=== PATIENT | male | born 1940 | race Caucasian/White ===

== ENCOUNTER 2018-03-18 17:04 | Inpatient (IN) | payer MEDICARE ==
[2018-03-18] MEDS ORDERED: HYDROmorphone 0.5 MG/0.5 ML Syringe IVPUSH ONE (17:42)
[2018-03-18] MEDS ORDERED: Sodium Chloride 0.9% 1,000 ML IV SCH ×2 (17:45→18:15)
[2018-03-18] MEDS ORDERED: HYDROmorphone 1 MG/ML Syringe IVPUSH ONE (18:17)
[2018-03-18] MEDS ORDERED: Ondansetron 4 MG/2 ML SDV IVPUSH ONE (18:17)
[2018-03-18] MEDS ORDERED: Meropenem 500 MG in Sodium Chloride 0.9% 50 ML IV ONE ×2 (18:40→19:31)
--- NOTE | 2018-03-18 18:51 | EDM.PDOC ---
ED HPI GENERAL MEDICAL PROBLEM - General Chief Complaint: Abdominal Pain Stated Complaint: STOMACH PAIN, SHORTNESS OF BREATH Time Seen by Provider: 03/18/18 17:45 Source of Information: Reports: Patient, Family History Limitations: Reports: No Limitations - History of Present Illness INITIAL COMMENTS - FREE TEXT/NARRATIVE: pt arrived with very severe mid abdomanal paion. He was nauseated but not vomiting, He has a history of ca of the lung and Ca of the prostate. He woke up abouit 4 thirty this am and he had very severe abdomanal pain. He has been very uncomfortable all day. he has not had a stool today. He has not had pain like this in the past. He had a luperon shot yesterday for his prostate ca. Onset: Today Duration: Hour(s): Location: Reports: Abdomen Quality: Reports: Sharp, Stabbing Associated Symptoms: Reports: Nausea/Vomiting, Weakness Middle Anterior Abdominal Pain Score (Numeric/FACES): 9 - Related Data Allergies Allergy/AdvReac Type Severity Reaction Status Date / Time venom-honey bee Allergy Swelling Verified 03/18/18 17:40 [bee venom (honey bee)] Home Meds: Home Meds oxyCODONE HCl/Acetaminophen [Percocet 5-325 mg Tablet] 1 - 2 tab PO Q6H PRN 09/08 [History] Bisacodyl [Laxative] 5 mg PO DAILY 03/18/18 [History] Calc/D3/Mag/Zn/[employer]/[place] [Calcium 600 MG Plus Vit D] 1 tab PO DAILY [History] Morphine 15 mg PO BID 03/18/18 [History] Past Medical History Respiratory History: Reports: SOB Oncologic (Cancer) History: Reports: Lung, Prostate - Infectious Disease History Infectious Disease History: Reports: Chicken Pox, Mumps - Past Surgical History Respiratory Surgical History: Reports: Lung Biopsies Musculoskeletal Surgical History: Reports: Other (See Below) Social & Family History - Tobacco Use Smoking Status *Q: Current Every Day Smoker Years of Tobacco use: 30 Packs/Tins Daily: 1.5 - Recreational Drug Use Recreational Drug Use: No ED ROS GENERAL - Review of Systems Review Of Systems: See Below Constitutional: Reports: Chills, Malaise, Weakness, Other ( very severe abdomanal pain) HEENT: Reports: No Symptoms Respiratory: Reports: No Symptoms Cardiovascular: Reports: No Symptoms Endocrine: Reports: No Symptoms GI/Abdominal: Reports: Abdominal Pain, Nausea ED EXAM, GI/ABD - Physical Exam Exam: See Below Text/Narrative:: pt arrived with acute abdomanal pain in the mid abdoman. His abdoman appeared distended. Exam Limited By: No Limitations General Appearance: Alert, Severe Distress, Other (Pt is not vomiting. ) Ears: Normal TMs Nose: Normal Inspection Throat/Mouth: Normal Inspection Head: Atraumatic Neck: Normal Inspection Respiratory/Chest: No Respiratory Distress Cardiovascular: Regular Rate, Rhythm, Tachycardia, Other ( heart rate 140-- regular --sinus rhythm. ) GI/Abdominal Exam: Distended, Tender (Male) Exam: Deferred Rectal (Males) Exam: Deferred Back Exam: Normal Inspection Extremities: Pedal Edema, Other ( mild pedal edema. ) Neurological: Alert, Oriented, Normal Cognition Course - Vital Signs Last Recorded V/S: Last Vital Signs Temp 34.9 C L 03/18/18 17:38 Pulse 134 H 03/18/18 20:20 Resp 40 H 03/18/18 20:20 BP 145/105 H 03/18/18 20:20 Pulse Ox 97 03/18/18 20:20 - Orders/Labs/Meds Orders: Active Orders 24 hr Category Date Time Status Dietary Supplements [RC] BIDMEALS Care 03/18/18 18:40 Active EKG Documentation Completion [RC] ASDIRECTED Care 03/18/18 18:16 Active Chest 1V Frontal [CR] Stat Exams 03/18/18 18:15 Taken Chest Abdomen Pelvis wo Cont [CT] Stat Exams 03/18/18 17:43 Taken NG Tube Placement [CR] Stat Exams 03/18/18 19:54 Ordered CULTURE BLOOD [BC] Urgent Lab 03/18/18 18:45 Received CULTURE BLOOD [BC] Urgent Lab 03/18/18 18:55 Received UA W/MICROSCOPIC [URIN] Urgent Lab 03/18/18 18:15 Ordered Meropenem [Merrem] 500 mg Med 03/18/18 19:31 Ordered Sodium Chloride 0.9% [Normal Saline] 50 ml IV ONETIME Sodium Chloride 0.9% [Normal Saline] 1,000 ml Med 03/18/18 17:45 Active IV ASDIRECTED Sodium Chloride 0.9% [Normal Saline] 1,000 ml Med 03/18/18 18:15 Active IV ASDIRECTED Blood Culture x2 Reflex Set [OM.PC] Urgent Oth 03/18/18 18:39 Ordered Nasogastric Orogastric Tube Insertion [OM.PC] Routine Oth 03/18/18 19:58 Ordered EKG 12 Lead [EK] Routine Ther 03/18/18 18:16 Ordered Medication Orders Sodium Chloride (Normal Saline) 1,000 mls @ 1,000 mls/hr IV ASDIRECTED CIARRA Last Admin: 03/18/18 17:47 Dose: 1,000 mls/hr Sodium Chloride (Normal Saline) 1,000 mls @ 999 mls/hr IV ASDIRECTED CIARRA Last Admin: 03/18/18 19:31 Dose: 999 mls/hr Meropenem 500 mg/ Sodium (Chloride) 50 mls @ 100 mls/hr IV ONETIME ONE Stop: 03/18/18 20:00 Last Admin: 03/18/18 19:40 Dose: 100 mls/hr Labs: Laboratory Tests 03/18/18 03/18/18 03/18/18 Range/Units 18:15 18:15 18:16 WBC 10.4 (4.5-11.0) K/uL RBC 5.86 (4.30-5.90) M/uL Hgb 18.0 H (12.0-15.0) g/dL Hct 54.1 H (40.0-54.0) % MCV 92 (80-98) fL MCH 31 (27-31) pg MCHC 33 (32-36) % Plt Count 218 (150-400) K/uL Neut % (Auto) 88 H (36-66) % Lymph % (Auto) 8 L (24-44) % [place] % (Auto) 4 (2-6) % Eos % (Auto) 0 L (2-4) % Baso % (Auto) 0 (0-1) % Sodium 146 (140-148) mmol/L Potassium 3.4 L (3.6-5.2) mmol/L Chloride 106 (100-108) mmol/L Carbon Dioxide 21 (21-32) mmol/L Anion Gap 22.4 H (5.0-14.0) mmol/L BUN 22 H (7-18) mg/dL Creatinine 1.8 H (0.8-1.3) mg/dL Est Cr Clr Drug Dosing 33.15 mL/min Estimated GFR (MDRD) 37 L (>60) Glucose 194 H (74-106) mg/dL Lactic Acid 12.1 H (0.4-2.0) mmol/L Calcium 11.3 H (8.5-10.1) mg/dL Total Bilirubin 0.5 (0.2-1.0) mg/dL AST 21 (15-37) U/L ALT 19 (12-78) U/L Alkaline Phosphatase 166 H (46-116) U/L C-Reactive Protein 1.21 H (0.0-0.3) mg/dL Total Protein 7.3 (6.4-8.2) g/dL Albumin 3.1 L (3.4-5.0) g/dL Globulin 4.2 H (2.3-3.5) g/dL Albumin/Globulin Ratio 0.7 L (1.2-2.2) Lipase (73-393) U/L 03/18/18 Range/Units 18:26 WBC (4.5-11.0) K/uL RBC (4.30-5.90) M/uL Hgb (12.0-15.0) g/dL Hct (40.0-54.0) % MCV (80-98) fL MCH (27-31) pg MCHC (32-36) % Plt Count (150-400) K/uL Neut % (Auto) (36-66) % Lymph % (Auto) (24-44) % [place] % (Auto) (2-6) % Eos % (Auto) (2-4) % Baso % (Auto) (0-1) % Sodium (140-148) mmol/L Potassium (3.6-5.2) mmol/L Chloride (100-108) mmol/L Carbon Dioxide (21-32) mmol/L Anion Gap (5.0-14.0) mmol/L BUN (7-18) mg/dL Creatinine (0.8-1.3) mg/dL Est Cr Clr Drug Dosing mL/min Estimated GFR (MDRD) (>60) Glucose (74-106) mg/dL Lactic Acid (0.4-2.0) mmol/L Calcium (8.5-10.1) mg/dL Total Bilirubin (0.2-1.0) mg/dL AST (15-37) U/L ALT (12-78) U/L Alkaline Phosphatase (46-116) U/L C-Reactive Protein (0.0-0.3) mg/dL Total Protein (6.4-8.2) g/dL Albumin (3.4-5.0) g/dL Globulin (2.3-3.5) g/dL Albumin/Globulin Ratio (1.2-2.2) Lipase 113 (73-393) U/L Meds: Medications Generic Name Dose Route Start Last Admin Trade Name Fregena PRN Reason Stop Dose Admin Sodium Chloride 1,000 mls @ 1,000 mls/hr 03/18/18 17:45 03/18/18 17:47 Normal Saline IV 1,000 mls/hr ASDIRECTED CI[facility] Administration Sodium Chloride 1,000 mls @ 999 mls/hr 03/18/18 18:15 03/18/18 19:31 Normal Saline IV 999 mls/hr ASDIRECTED CIARRA Administration Meropenem 500 mg/ Sodium 50 mls @ 100 mls/hr 03/18/18 19:31 03/18/18 19:40 Chloride IV 03/18/18 20:00 100 mls/hr ONETIME ONE Administration Discontinued Medications Generic Name Dose Route Start Last Admin Trade Name Neil PRN Reason Stop Dose Admin Dexamethasone Confirm 03/18/18 19:47 Dexamethasone Administered 03/18/18 19:48 Dose 4 mg .ROUTE .STK-MED ONE Fentanyl Confirm 03/18/18 19:47 Sublimaze Administered 03/18/18 19:48 Dose 250 mcg .ROUTE .STK-MED ONE Glycopyrrolate Confirm 03/18/18 19:47 Robinul Administered 03/18/18 19:48 Dose 1 mg .ROUTE .STK-MED ONE Heparin Sodium (Porcine) Confirm 03/18/18 19:50 Heparin Sodium Administered 03/18/18 19:51 Dose 5,000 units .ROUTE .STK-MED ONE Hydromorphone HCl 0.5 mg 03/18/18 17:42 03/18/18 17:47 Dilaudid IVPUSH 03/18/18 17:43 0.5 mg ONETIME ONE Administration Hydromorphone HCl 1 mg 03/18/18 18:17 03/18/18 18:27 Dilaudid IVPUSH 03/18/18 18:18 1 mg ONETIME ONE Administration Meropenem 500 mg/ Sodium 50 mls @ 100 mls/hr 03/18/18 18:40 03/18/18 19:01 Chloride IV 03/18/18 19:09 100 mls/hr ONETIME ONE Administration Sodium Chloride Confirm 03/18/18 19:39 03/18/18 20:19 Normal Saline Administered 03/18/18 19:40 Not Given Dose 50 mls @ as directed .ROUTE .STK-MED ONE Aztreonam 2 gm/ Sodium 50 mls @ 100 mls/hr 03/18/18 19:32 Chloride IV 03/18/18 20:01 ONETIME ONE Sodium Chloride Confirm 03/18/18 19:58 Normal Saline Administered 03/18/18 19:59 Dose 250 mls @ as directed .ROUTE .STK-MED ONE Lactated Ringer's Confirm 03/18/18 19:58 Ringers, Lactated Administered 03/18/18 19:59 Dose 1,000 mls @ as directed .ROUTE .STK-MED ONE Sodium Chloride Confirm 03/18/18 19:58 Normal Saline Administered 03/18/18 19:59 Dose 500 mls @ as directed .ROUTE .STK-MED ONE Meropenem Confirm 03/18/18 19:39 03/18/18 20:19 Merrem Administered 03/18/18 19:40 Not Given Dose 500 mg .ROUTE .STK-MED ONE Neostigmine Methylsulfate Confirm 03/18/18 19:47 Neostigmine Administered 03/18/18 19:48 Dose 5 mg .ROUTE .STK-MED ONE Ondansetron HCl 4 mg 03/18/18 18:17 03/18/18 18:27 Zofran IVPUSH 03/18/18 18:18 4 mg ONETIME ONE Administration Ondansetron HCl Confirm 03/18/18 19:47 Zofran Administered 03/18/18 19:48 Dose 4 mg .ROUTE .STK-MED ONE Phenylephrine HCl Confirm 03/18/18 20:04 Isaías-Synephrine Administered 03/18/18 20:05 Dose 10 mg .ROUTE .STK-MED ONE Propofol Confirm 03/18/18 19:47 Diprivan 20 Ml Administered 03/18/18 19:48 Dose 200 mg .ROUTE .STK-MED ONE Rocuronium [place] Confirm 03/18/18 19:47 Zemuron Administered 03/18/18 19:48 Dose 50 mg .ROUTE .STK-MED ONE Succinylcholine Chloride Confirm 03/18/18 19:47 Quelicin Administered 03/18/18 19:48 Dose 200 mg .ROUTE .STK-MED ONE - Re-Assessments/Exams Free Text/Narrative Re-Assessment/Exam: 03/18/18 20:28 cat scan of the chest, abdoman and pelvis was obtained. which showed free air and a perforated cecum. There is alot of stool and fluid out in the abdoman. His lactic acid is 12. His wbc is not elvated but his hg and hct are extremely high. He has a elvated creatnine. His o2 sats were low and did come up with o2. His bp was initially low and there did appear to be a difference from arm to arm. 03/18/18 20:30 Departure - Departure Time of Disposition: 20:31 Disposition: Admitted As Inpatient 68 Condition: Fair Clinical Impression: Perforation of cecum, Dehydration, Sepsis - Discharge Information - My Orders Last 24 Hours: My Active Orders 03/18/18 18:15 Chest 1V Frontal [CR] Stat UA W/MICROSCOPIC [URIN] Urgent Sodium Chloride 0.9% [Normal Saline] 1,000 ml IV ASDIRECTED 03/18/18 18:16 EKG Documentation Completion [RC] ASDIRECTED EKG 12 Lead [EK] Routine 03/18/18 18:39 Blood Culture x2 Reflex Set [OM.PC] Urgent 03/18/18 18:40 Dietary Supplements [RC] BIDMEALS 03/18/18 18:45 CULTURE BLOOD [BC] Urgent 03/18/18 18:55 CULTURE BLOOD [BC] Urgent - Assessment/Plan Last 24 Hours: My Active Orders 03/18/18 18:15 Chest 1V Frontal [CR] Stat UA W/MICROSCOPIC [URIN] Urgent Sodium Chloride 0.9% [Normal Saline] 1,000 ml IV ASDIRECTED 03/18/18 18:16 EKG Documentation Completion [RC] ASDIRECTED EKG 12 Lead [EK] Routine 03/18/18 18:39 Blood Culture x2 Reflex Set [OM.PC] Urgent 03/18/18 18:40 Dietary Supplements [RC] BIDMEALS 03/18/18 18:45 CULTURE BLOOD [BC] Urgent 03/18/18 18:55 CULTURE BLOOD [BC] Urgent
[2018-03-18] MEDS ORDERED: Meropenem 500 MG SDV ONE (19:39)
[2018-03-18] MEDS ORDERED: Sodium Chloride 0.9% 50 ML ONE (19:39)
--- NOTE | 2018-03-18 19:40 | PCM.HP ---
H&P History of Present Illness - General Date of Service: 03/18/18 Source of Information: Patient, Family, Provider, RN Notes Reviewed History Limitations: Reports: No Limitations - History of Present Illness Initial Comments - Free Text/Narative: Mr. Silva is a 77-year-old gentleman who was admitted through the emergency department and taken directly to the operating room for evaluation of acute abdomen with free air in the abdomen noted on CT scan. He has a known history of lung cancer which is felt to be in remission and is not currently actively treated. He also has a known history of metastatic prostate cancer that is being treated with Lupron injections. Prostate cancer is also felt to be fairly stable and he has received regular follow-up from oncology. He was feeling well until about 4 AM today when he developed abrupt onset of severe abdominal pain. He presented to the emergency department this afternoon and was found to be hypotensive and tachycardic. White blood cell count is still within normal range but his lactic acid level was markedly elevated at 12.1. CT scan of the abdomen shows free air within the abdomen and probable perforation of the cecum. He has a [id number] smoking history and probable underlying COPD. He is been seen and evaluated by Dr. Adams, with the plan for emergent surgery. Middle Anterior Abdominal Pain Score (Numeric/FACES): 9 - Related Data Allergies/Adverse Reactions: Allergies Allergy/AdvReac Type Severity Reaction Status Date / Time venom-honey bee Allergy Swelling Verified 03/18/18 17:40 [bee venom (honey bee)] Home Medications: Home Meds oxyCODONE HCl/Acetaminophen [Percocet 5-325 mg Tablet] 1 - 2 tab PO Q6H PRN 09/08 [History] Bisacodyl [Laxative] 5 mg PO DAILY 03/18/18 [History] Calc/D3/Mag/Zn/[employer] Director/[place] [Calcium 600 MG Plus Vit D] 1 tab PO DAILY [History] Morphine 15 mg PO BID 03/18/18 [History] Past Medical History Respiratory History: Reports: SOB Oncologic (Cancer) History: Reports: Lung, Prostate - Infectious Disease History Infectious Disease History: Reports: Chicken Pox, Mumps - Past Surgical History Respiratory Surgical History: Reports: Lung Biopsies Musculoskeletal Surgical History: Reports: Other (See Below) Social & Family History - Tobacco Use Smoking Status *Q: Current Every Day Smoker Years of Tobacco use: 30 Packs/Tins Daily: 1.5 - Recreational Drug Use Recreational Drug Use: No H&P Review of Systems - Review of Systems: Review Of Systems: See Below General: Reports: Weakness. Denies: Fever, Chills HEENT: Reports: No Symptoms Pulmonary: Reports: Shortness of Breath, Wheezing. Denies: Pleuritic Chest Pain , Cough, Sputum, Hemoptysis Cardiovascular: Reports: Dyspnea on Exertion. Denies: Chest Pain, Palpitations , Orthopnea, PND, Edema, Lightheadedness Gastrointestinal: Reports: Abdominal Pain, Distension, Nausea. Denies: Constipation, Diarrhea, Difficulty Swallowing, Vomiting Genitourinary: Reports: No Symptoms Musculoskeletal: Reports: No Symptoms Skin: Reports: No Symptoms Psychiatric: Reports: No Symptoms Neurological: Reports: No Symptoms Hematologic/Lymphatic: Reports: No Symptoms Immunologic: Reports: No Symptoms Exam - Exam Exam: See Below - Vital Signs Vital Signs: Last Vital Signs Temp 94.9 F L 03/18/18 17:38 Pulse 140 H 03/18/18 19:16 Resp 45 H 03/18/18 19:16 BP 156/102 H 03/18/18 19:16 Pulse Ox 99 03/18/18 18:44 Weight: 153 lb - Exam Quality Assessment: Supplemental Oxygen, DVT Prophylaxis General: Alert, Oriented, Cooperative, Severe Distress HEENT: Conjunctiva Clear, Normal Nasal Septum, Posterior Pharynx Clear, Pupils Equal. No: Hearing Intact, Mucosa Moist & [place] Neck: Supple, Trachea Midline, +2 Carotid Pulse wo Bruit Lungs: Decreased Breath Sounds, Rhonchi, Wheezing. No: Rales, Rub Cardiovascular: Regular Rhythm, Normal S1, Normal S2, Tachycardia. No: Systolic Murmur, Diastolic Murmur GI/Abdominal Exam: Soft, Non-Tender, No Organomegaly, No Distention Extremities: Non-Tender, No Pedal Edema Skin: Warm, Dry Neurological: Cranial Nerves Intact, Strength Equal Bilateral, Normal Speech, Normal Tone, Sensation Intact. No: Focal Deficit Neuro Extensive - Mental Status: Alert, Oriented x3, Normal Mood/Affect, Normal Cognition, Memory Intact - Patient Data Lab Results Last 24 hrs: Laboratory Results - last 24 hr 03/18/18 03/18/18 03/18/18 Range/Units 18:15 18:15 18:16 WBC 10.4 (4.5-11.0) K/uL RBC 5.86 (4.30-5.90) M/uL Hgb 18.0 H (12.0-15.0) g/dL Hct 54.1 H (40.0-54.0) % MCV 92 (80-98) fL MCH 31 (27-31) pg MCHC 33 (32-36) % Plt Count 218 (150-400) K/uL Neut % (Auto) 88 H (36-66) % Lymph % (Auto) 8 L (24-44) % [place] % (Auto) 4 (2-6) % Eos % (Auto) 0 L (2-4) % Baso % (Auto) 0 (0-1) % Sodium 146 (140-148) mmol/L Potassium 3.4 L (3.6-5.2) mmol/L Chloride 106 (100-108) mmol/L Carbon Dioxide 21 (21-32) mmol/L Anion Gap 22.4 H (5.0-14.0) mmol/L BUN 22 H (7-18) mg/dL Creatinine 1.8 H (0.8-1.3) mg/dL Est Cr Clr Drug Dosing 33.15 mL/min Estimated GFR (MDRD) 37 L (>60) Glucose 194 H (74-106) mg/dL Lactic Acid 12.1 H (0.4-2.0) mmol/L Calcium 11.3 H (8.5-10.1) mg/dL Total Bilirubin 0.5 (0.2-1.0) mg/dL AST 21 (15-37) U/L ALT 19 (12-78) U/L Alkaline Phosphatase 166 H (46-116) U/L C-Reactive Protein 1.21 H (0.0-0.3) mg/dL Total Protein 7.3 (6.4-8.2) g/dL Albumin 3.1 L (3.4-5.0) g/dL Globulin 4.2 H (2.3-3.5) g/dL Albumin/Globulin Ratio 0.7 L (1.2-2.2) Lipase (73-393) U/L 03/18/18 Range/Units 18:26 WBC (4.5-11.0) K/uL RBC (4.30-5.90) M/uL Hgb (12.0-15.0) g/dL Hct (40.0-54.0) % MCV (80-98) fL MCH (27-31) pg MCHC (32-36) % Plt Count (150-400) K/uL Neut % (Auto) (36-66) % Lymph % (Auto) (24-44) % [place] % (Auto) (2-6) % Eos % (Auto) (2-4) % Baso % (Auto) (0-1) % Sodium (140-148) mmol/L Potassium (3.6-5.2) mmol/L Chloride (100-108) mmol/L Carbon Dioxide (21-32) mmol/L Anion Gap (5.0-14.0) mmol/L BUN (7-18) mg/dL Creatinine (0.8-1.3) mg/dL Est Cr Clr Drug Dosing mL/min Estimated GFR (MDRD) (>60) Glucose (74-106) mg/dL Lactic Acid (0.4-2.0) mmol/L Calcium (8.5-10.1) mg/dL Total Bilirubin (0.2-1.0) mg/dL AST (15-37) U/L ALT (12-78) U/L Alkaline Phosphatase (46-116) U/L C-Reactive Protein (0.0-0.3) mg/dL Total Protein (6.4-8.2) g/dL Albumin (3.4-5.0) g/dL Globulin (2.3-3.5) g/dL Albumin/Globulin Ratio (1.2-2.2) Lipase 113 (73-393) U/L Result Diagrams: 03/18/18 18:15 03/18/18 18:15 *Q Meaningful Use (ADM) - VTE Risk Assess *Q Each Risk Factor Represents 1 Point: Sepsis, Abnormal Pulmonary Function (COPD) Total Score 1 Point Risk Factors: 2 Each Risk Factor Represents 2 Points: Malignancy (present or previous), Major surgery greater than 45 minutes Total Score 2 Point Risk Factors: 4 Each Risk Factor Represents 3 Points: Age 75 Years or Greater Total Score 3 Point Risk Factors: 3 Each Risk Factor Represents 5 Points: None Total Score 5 Point Risk Factors: 0 Venous Thromboembolism Risk Factor Score *Q: 9 Problem List Initiated/Reviewed/Updated: Yes Orders Last 24hrs: Active Orders 24 hr Category Date Time Status Dietary Supplements [RC] BIDMEALS Care 03/18/18 18:40 Active EKG Documentation Completion [RC] ASDIRECTED Care 03/18/18 18:16 Active Chest 1V Frontal [CR] Stat Exams 03/18/18 18:15 Taken Chest Abdomen Pelvis wo Cont [CT] Stat Exams 03/18/18 17:43 Taken CULTURE BLOOD [BC] Urgent Lab 03/18/18 18:45 Received CULTURE BLOOD [BC] Urgent Lab 03/18/18 18:55 Received UA W/MICROSCOPIC [URIN] Urgent Lab 03/18/18 18:15 Ordered Sodium Chloride 0.9% [Normal Saline] 1,000 ml Med 03/18/18 17:45 Active IV ASDIRECTED Sodium Chloride 0.9% [Normal Saline] 1,000 ml Med 03/18/18 18:15 Active IV ASDIRECTED Blood Culture x2 Reflex Set [OM.PC] Urgent Oth 03/18/18 18:39 Ordered EKG 12 Lead [EK] Routine Ther 03/18/18 18:16 Ordered Medication Orders Sodium Chloride (Normal Saline) 1,000 mls @ 1,000 mls/hr IV ASDIRECTED [facility] Last Admin: 03/18/18 17:47 Dose: 1,000 mls/hr Sodium Chloride (Normal Saline) 1,000 mls @ 999 mls/hr IV ASDIRECTED [facility] Last Admin: 03/18/18 19:31 Dose: 999 mls/hr Assessment/Plan Comment:: ASSESSMENT AND PLAN ACUTE ABDOMEN WITH SEPSIS-severely ill with a lactic acid level of 12.1, tachycardia, hypotension, and increased respiratory rate. CT scan shows evidence of free air within the abdomen and probable perforation of the cecum. He will be taken immediately to the operating room by Dr. Adams for exploratory laparotomy area. He does have underlying COPD but denies any history of significant cardiac disease or recent symptoms of chest pain or pressure. -Vigorous IV fluid resuscitation -Serial monitoring of lactic acid level during the postoperative period -IV meropenem and Azactam -Post operative surgical care per Dr. Adams [id number]-year smoking history, currently experiencing significant respiratory compromise with respiratory rate of 40 requiring supplemental oxygen -Will likely require ventilator management in the initial postoperative period -Nebulized albuterol as needed -Vigorous pulmonary toilet during the postoperative period ACUTE ON CHRONIC RENAL INSUFFICIENCY-acute kidney injury likely secondary to sepsis and acute abdomen with intravascular volume depletion -IV fluid resuscitation as above -Closely monitor urine output and renal function during the postoperative period HISTORY OF LUNG AND PROSTATE CARCINOMA-lung cancer felt to be stable, currently receiving active treatment for management of prostate carcinoma MAINTENANCE ISSUES -DVT prophylaxis; SCUDs -GI prophylaxis; Protonix 40 mg IV daily during postoperative period -Sorto catheter; will require during the postoperative period for close monitoring of urine output -Nutrition; nothing by mouth -Nicotine dependence; CODE STATUS-FULL CODE ADMISSION STATUS-patient will be admitted to inpatient status, expect at least a 2 night hospital stay for evaluation and management of problems as outlined above. At the time of this admission I do not reasonably expected evaluation and management of this problem will require more than a 96 hour hospital stay. DISPOSITION-anticipate discharge to home after the hospital stay. PRIMARY CARE PROVIDER-Emil Randall
[2018-03-18] MEDS ORDERED: Glycopyrrolate 0.2 MG/ML 5 ML MDV ONE (19:47)
[2018-03-18] MEDS ORDERED: Ondansetron 4 MG/2 ML SDV ONE (19:47)
[2018-03-18] MEDS ORDERED: Propofol 200 MG/20 ML SDV ONE (19:47)
[2018-03-18] MEDS ORDERED: fentaNYL 250 MCG/5 ML SDV ONE (19:47)
[2018-03-18] MEDS ORDERED: Neostigmine Methylsulfate 1 MG/ML 5 ML Syringe ONE (19:47)
[2018-03-18] MEDS ORDERED: Rocuronium 50 MG/5 ML Vial ONE (19:47)
[2018-03-18] MEDS ORDERED: Dexamethasone 4 MG/ML SDV ONE (19:47)
[2018-03-18] MEDS ORDERED: Succinylcholine 200 MG/10 ML MDV ONE (19:47)
[2018-03-18] MEDS ORDERED: Heparin Sodium 5,000 Units/ML Vial ONE (19:50)
[2018-03-18] MEDS ORDERED: Sodium Chloride 0.9% 500 ML ONE (19:58)
[2018-03-18] MEDS ORDERED: Lactated Ringers 1,000 ML ONE ×2 (19:58→21:41)
[2018-03-18] MEDS ORDERED: Sodium Chloride 0.9% 0 ML ONE (19:58)
[2018-03-18] MEDS ORDERED: Phenylephrine 1% 10 MG/ML SDV ONE (20:04)
[2018-03-18] MEDS ORDERED: EPINEPHrine 1 MG/ML SDV ONE (21:06)
[2018-03-18] MEDS ORDERED: D5 1/2 NS w/ 20 mEq/L KCl 1,000 ML IV SCH (22:45)
[2018-03-18] MEDS: Norepinephrine 8 MG in Dextrose 5% in Water 250 ML IV SCH ×2 (22:50)
--- NOTE | 2018-03-19 00:52 | OR ---
DATE OF PROCEDURE: 03/18/2018 PREOPERATIVE DIAGNOSIS: Acute abdomen with perforated viscus, sepsis. POSTOPERATIVE DIAGNOSIS: Acute abdomen, Hinchey IV sigmoid perforation, sepsis. PROCEDURE PERFORMED: Exploratory laparotomy, peritoneal lavage, sigmoid resection with end left colostomy and Crisitna pouch. surgeon: Espinoza Adams MD. ANESTHESIA: General endotracheal. INDICATION: This 77-year-old white male apparently had some vague abdominal discomfort about a week ago. This morning about 4 o'clock or so he developed onset of severe abdominal pain. This persisted in the day causing him to come to the emergency room this evening. He was found to have a very tender abdomen which was rigid. CAT scan was consistent with viscus perforation. There was free air and what appeared to be stool throughout the abdomen. The radiologist thought that the perforation was probably involving the cecum. He was admitted to the operating room for an exploratory laparotomy. I counseled him for surgery including the possibility of needing a colostomy and he gave his informed consent to proceed. DESCRIPTION OF PROCEDURE: After adequate general endotracheal anesthesia was obtained, the patient had a Sorto catheter placed. His abdomen was prepped and draped in the usual sterile fashion. The leg compression stockings were in place and used during the entire procedure. Time-out was held. A lower midline incision was made. This was carried up to the left of the umbilicus into the upper abdomen a short distance. This was carried deep using Bovie cautery to the fascia. The fascia was incised and underlying peritoneum was elevated and incised. Liquid stool poured out of the abdomen. We aspirated this free. We sent some for Gram-stain and culture. We opened the fascia the length of the skin incision using Bovie cautery while protecting the underlying structures. There were both liquid stool and solid stool throughout the abdomen. We manually removed a lot of the solid stool and aspirated the liquid stool. We then copiously lavaged the abdomen. We examined the cecum and it appeared to be intact. We then found the sigmoid colon and the side of it was basically blown out to about a 3 cm opening. The sigmoid colon was mobilized up by taking down the white line of Toldt. We divided the sigmoid proximally and distally to the perforation with the MARQUEZ using blue loads. The mesentery intervening the two divisions was divided with the laparoscopic MARQUEZ with a persaud load. The specimen was delivered from the field. The abdomen was then copiously irrigated and lavaged with saline again and when we obtained no more obvious contamination, this was terminated and required over 4 L of fluid. The left colon was mobilized up further by taking down the white line of Toldt further and a place for the colostomy to the left of the midline was selected. A catawba of skin was excised and the underlying fat was removed. A cruciate incision was made in the fascia. The left colon was then brought up through the abdominal wall. A 2-0 silk suture was used to anchor the colon to the underlying peritoneum. Two David-Benito drains were obtained and brought out through a separate stab wound to the right, one was placed in the pelvis and the other was placed up in the upper abdomen. The fascia was then closed with a running stitch of #2 Vicryl. The colostomy was matured. The staple line was excised and four 3-0 Vicryl stitches were placed to approximate the end of the colon to the associated dermis. The intervening space was approximated with 3-0 chromic interrupted sutures. One inch iodoform gauze was placed in the incision and a sterile dressing was applied after we cut an appliance to appropriate size and placed it over the ostomy. The patient was then brought to the Intensive Care Unit where he will be kept on a ventilator at least overnight. He is in critical condition. Espinoza Adams MD /[id number] ONESIMO
[2018-03-19] MEDS ORDERED: Lactated Ringers 1,000 ML IV SCH ×2 (01:00→03:30)
[2018-03-19] MEDS: Vasopressin 100 UNITS in Dextrose 5% in Water 250 ML IV SCH ×2 (01:20)
--- NOTE | 2018-03-19 08:50 | CR ---
CHEST: Normal CLINICAL HISTORY:Free air in the abdomen COMPARISON:CT chest same day FINDINGS: There is mild generalized interstitial prominence which is chronic. Heart size and pulmonary vascularity are normal. No effusions are seen. There is a moderate amount of the free intraperitoneal air under both hemidiaphragms. Impression: Mild generalized chronic interstitial changes more prominent in the lung bases Free intraperitoneal air.
--- NOTE | 2018-03-19 09:46 | CR ---
CHEST: Portal CLINICAL HISTORY:SOB COMPARISON:03/18/2018 FINDINGS: Patient has been intubated. Endotracheal tube tip is in the distal trachea. There is mild generalized interstitial prominence. This is similar to prior study. There is mild vascular cephalization. This may be positional. Impression: Endotracheal intubation Chronic interstitial changes Mild basilar cephalization may be positional. Some element of pulmonary venous hypertension is not excluded.
--- NOTE | 2018-03-19 10:15 | PCM.PN ---
- General Info Date of Service: 03/19/18 Subjective Update: Mr. Silva is critically ill following intestinal perforation resulting in an acute abdomen and septic shock. He was taken to the operating room last night from the emergency department and exploratory laparotomy was performed. He was starting to have a large perforation in the sigmoid colon with liquid and solid stool present throughout the abdominal cavity. Rigorous and extensive washing of the abdomen was performed followed by resection of the perforated portion of the sigmoid colon and creation of a colostomy. Through the surgery he experienced significant hypotension requiring initiation of IV norepinephrine in addition to vigorous fluid resuscitation. He is been left on the ventilator because of his known underlying pulmonary disease and ongoing septic shock. During the night he experienced ongoing low blood pressures and continued to receive vigorous fluid replacement as well as ongoing therapy with norepinephrine. In addition he was started on IV vasopressin because of persistent hypotension. With these interventions his blood pressure has stabilized somewhat in been better for the day today. He remains on sedation and pain medication as needed. Respiratory status is currently stable with current ventilator settings. He is unable to provide information concerning symptoms or review of systems because of intubation and sedation - Patient Data Vitals - Most Recent: Last Vital Signs Temp 96.8 F 03/19/18 06:00 Pulse 90 03/19/18 06:00 Resp 36 H 03/19/18 06:00 BP 90/53 L 03/19/18 06:00 Pulse Ox 97 03/19/18 06:00 Weight - Most Recent: 153 lb 0.013 oz I&O - Last 24 Hours: Intake & Output 03/18/18 03/19/18 03/19/18 22:59 06:59 14:59 Intake Total 5842 Output Total 540 24 Balance 5302 -24 Lab Results Last 24 Hours: Laboratory Results - last 24 hr 03/18/18 03/18/18 03/18/18 Range/Units 18:15 18:15 18:16 WBC 10.4 (4.5-11.0) K/uL RBC 5.86 (4.30-5.90) M/uL Hgb 18.0 H (12.0-15.0) g/dL Hct 54.1 H (40.0-54.0) % MCV 92 (80-98) fL MCH 31 (27-31) pg MCHC 33 (32-36) % Plt Count 218 (150-400) K/uL Neut % (Auto) 88 H (36-66) % Lymph % (Auto) 8 L (24-44) % Austin % (Auto) 4 (2-6) % Eos % (Auto) 0 L (2-4) % Baso % (Auto) 0 (0-1) % Puncture Site ABG pH (7.350-7.450) ABG pCO2 (35.0-42.0) mmHg ABG pO2 (75.0-100.0) mmHg ABG HCO3 (22.0-26.0) mmol/L ABG Total CO2 (23.0-27.0) mmol/L ABG O2 Saturation (95.0-98.0) % ABG O2 Content (15.0-23.0) %vol ABG Base Excess mm/L ABG Hemoglobin (13.5-18.0) g/dL ABG Oxyhemoglobin % ABG Carboxyhemoglobin (0.0-1.6) % ABG Methemoglobin % Craig Test O2 Delivery Device Oxygen Flow Rate L Sodium 146 (140-148) mmol/L Potassium 3.4 L (3.6-5.2) mmol/L Chloride 106 (100-108) mmol/L Carbon Dioxide 21 (21-32) mmol/L Anion Gap 22.4 H (5.0-14.0) mmol/L BUN 22 H (7-18) mg/dL Creatinine 1.8 H (0.8-1.3) mg/dL Est Cr Clr Drug Dosing 33.15 mL/min Estimated GFR (MDRD) 37 L (>60) Glucose 194 H (74-106) mg/dL Lactic Acid 12.1 H (0.4-2.0) mmol/L Calcium 11.3 H (8.5-10.1) mg/dL Total Bilirubin 0.5 (0.2-1.0) mg/dL AST 21 (15-37) U/L ALT 19 (12-78) U/L Alkaline Phosphatase 166 H (46-116) U/L C-Reactive Protein 1.21 H (0.0-0.3) mg/dL Total Protein 7.3 (6.4-8.2) g/dL Albumin 3.1 L (3.4-5.0) g/dL Globulin 4.2 H (2.3-3.5) g/dL Albumin/Globulin Ratio 0.7 L (1.2-2.2) Lipase (73-393) U/L Urine Color Urine Appearance Urine pH (4.5-8.0) Ur Specific [place] (1.008-1.030) Urine Protein (NEGATIVE) mg/dL Urine Glucose (UA) (NEGATIVE) mg/dL Urine Ketones (NEGATIVE) mg/dL Urine Occult Blood (NEGATIVE) Urine Nitrite (NEGAITVE) Urine Bilirubin (NEGATIVE) Urine Urobilinogen (NORMAL) mg/dL Ur Leukocyte Esterase (NEGATIVE) Urine RBC (0-5) Urine WBC (0-5) Ur Epithelial Cells Amorphous Sediment Urine Bacteria Urine Mucus 03/18/18 03/19/18 03/19/18 Range/Units 18:26 00:45 04:50 WBC 5.8 (4.5-11.0) K/uL RBC 4.57 (4.30-5.90) M/uL Hgb 13.8 D (12.0-15.0) g/dL Hct 43.6 (40.0-54.0) % MCV 95 (80-98) fL MCH 30 (27-31) pg MCHC 32 (32-36) % Plt Count 210 (150-400) K/uL Neut % (Auto) (36-66) % Lymph % (Auto) (24-44) % [place] % (Auto) (2-6) % Eos % (Auto) (2-4) % Baso % (Auto) (0-1) % Puncture Site ABG pH (7.350-7.450) ABG pCO2 (35.0-42.0) mmHg ABG pO2 (75.0-100.0) mmHg ABG HCO3 (22.0-26.0) mmol/L ABG Total CO2 (23.0-27.0) mmol/L ABG O2 Saturation (95.0-98.0) % ABG O2 Content (15.0-23.0) %vol ABG Base Excess mm/L ABG Hemoglobin (13.5-18.0) g/dL ABG Oxyhemoglobin % ABG Carboxyhemoglobin (0.0-1.6) % ABG Methemoglobin % Craig Test O2 Delivery Device Oxygen Flow Rate L Sodium (140-148) mmol/L Potassium (3.6-5.2) mmol/L Chloride (100-108) mmol/L Carbon Dioxide (21-32) mmol/L Anion Gap (5.0-14.0) mmol/L BUN (7-18) mg/dL Creatinine (0.8-1.3) mg/dL Est Cr Clr Drug Dosing mL/min Estimated GFR (MDRD) (>60) Glucose (74-106) mg/dL Lactic Acid (0.4-2.0) mmol/L Calcium (8.5-10.1) mg/dL Total Bilirubin (0.2-1.0) mg/dL AST (15-37) U/L ALT (12-78) U/L Alkaline Phosphatase (46-116) U/L C-Reactive Protein (0.0-0.3) mg/dL Total Protein (6.4-8.2) g/dL Albumin (3.4-5.0) g/dL Globulin (2.3-3.5) g/dL Albumin/Globulin Ratio (1.2-2.2) Lipase 113 (73-393) U/L Urine Color Yellow Urine Appearance Clear Urine pH 5.0 (4.5-8.0) Ur Specific [place] 1.015 (1.008-1.030) Urine Protein Trace (NEGATIVE) mg/dL Urine Glucose (UA) Normal (NEGATIVE) mg/dL Urine Ketones Negative (NEGATIVE) mg/dL Urine Occult Blood Large (NEGATIVE) Urine Nitrite Negative (NEGAITVE) Urine Bilirubin Negative (NEGATIVE) Urine Urobilinogen Normal (NORMAL) mg/dL Ur Leukocyte Esterase Negative (NEGATIVE) Urine RBC 0-5 (0-5) Urine WBC 0-5 (0-5) Ur Epithelial Cells Rare Amorphous Sediment Few Urine Bacteria Not seen Urine Mucus Rare 03/19/18 03/19/18 03/19/18 Range/Units 04:50 04:50 09:23 WBC (4.5-11.0) K/uL RBC (4.30-5.90) M/uL Hgb (12.0-15.0) g/dL Hct (40.0-54.0) % MCV (80-98) fL MCH (27-31) pg MCHC (32-36) % Plt Count (150-400) K/uL Neut % (Auto) (36-66) % Lymph % (Auto) (24-44) % [place] % (Auto) (2-6) % Eos % (Auto) (2-4) % Baso % (Auto) (0-1) % Puncture Site Line ABG pH 7.229 L (7.350-7.450) ABG pCO2 45.6 H (35.0-42.0) mmHg ABG pO2 95.3 (75.0-100.0) mmHg ABG HCO3 18.4 L (22.0-26.0) mmol/L ABG Total CO2 17.0 L (23.0-27.0) mmol/L ABG O2 Saturation 96.5 (95.0-98.0) % ABG O2 Content 18.8 (15.0-23.0) %vol ABG Base Excess -8.7 mm/L ABG Hemoglobin 13.9 (13.5-18.0) g/dL ABG Oxyhemoglobin 95.7 % ABG Carboxyhemoglobin 0.2 (0.0-1.6) % ABG Methemoglobin 0.6 % Craig Test Line O2 Delivery Device Ventilator Oxygen Flow Rate L Sodium 142 (140-148) mmol/L Potassium 4.4 (3.6-5.2) mmol/L Chloride 110 H (100-108) mmol/L Carbon Dioxide 21 (21-32) mmol/L Anion Gap 15.4 H (5.0-14.0) mmol/L BUN 28 H (7-18) mg/dL Creatinine 2.0 H (0.8-1.3) mg/dL Est Cr Clr Drug Dosing 29.84 mL/min Estimated GFR (MDRD) 33 L (>60) Glucose 180 H (74-106) mg/dL Lactic Acid 4.9 H (0.4-2.0) mmol/L Calcium 8.9 D (8.5-10.1) mg/dL Total Bilirubin 0.2 D (0.2-1.0) mg/dL AST 85 H D (15-37) U/L ALT 55 D (12-78) U/L Alkaline Phosphatase 110 (46-116) U/L C-Reactive Protein (0.0-0.3) mg/dL Total Protein 4.3 L (6.4-8.2) g/dL Albumin 1.6 L (3.4-5.0) g/dL Globulin 2.7 (2.3-3.5) g/dL Albumin/Globulin Ratio 0.6 L (1.2-2.2) Lipase (73-393) U/L Urine Color Urine Appearance Urine pH (4.5-8.0) Ur Specific [place] (1.008-1.030) Urine Protein (NEGATIVE) mg/dL Urine Glucose (UA) (NEGATIVE) mg/dL Urine Ketones (NEGATIVE) mg/dL Urine Occult Blood (NEGATIVE) Urine Nitrite (NEGAITVE) Urine Bilirubin (NEGATIVE) Urine Urobilinogen (NORMAL) mg/dL Ur Leukocyte Esterase (NEGATIVE) Urine RBC (0-5) Urine WBC (0-5) Ur Epithelial Cells Amorphous Sediment Urine Bacteria Urine Mucus Dante Results Last 24 Hours: Microbiology 03/18/18 18:55 Aerobic Blood Culture - Preliminary Blood - Venous - Lab Draw 03/18/18 20:59 Gram Stain - Final Peritoneal Fluid Med Orders - Current: Current Medications Norepinephrine Bitartrate 8 mg (/ Dextrose/Water) 258 mls @ 3.87 mls/hr IV TITRATE CIARRA; Protocol Last Titration: 03/19/18 01:42 Dose: 12 mcg/min, 23.22 mls/hr Propofol (Diprivan 100 Ml) 100 mls @ 2.082 mls/hr IV TITRATE CIARRA; Protocol Last Admin: 03/19/18 08:56 Dose: 20 mcg/kg/min, 8.328 mls/hr Meropenem 1 gm/ Sodium (Chloride) 50 mls @ 100 mls/hr IV Q12H CIARRA Last Admin: 03/19/18 08:12 Dose: 100 mls/hr Vasopressin 100 units/ (Dextrose/Water) 255 mls @ 1.53 mls/hr IV TITRATE CIARRA; Protocol Last Titration: 03/19/18 05:29 Dose: 0.08 units/min, 12.24 mls/hr Aztreonam/Dextrose 1 gm/ (Premix) 50 mls @ 100 mls/hr IV Q8H CIARRA Pantoprazole Sodium (Protonix Iv) 40 mg IVPUSH DAILY CIARRA Discontinued Medications Dexamethasone (Dexamethasone) Confirm Administered Dose 4 mg .ROUTE .STK-MED ONE Stop: 03/18/18 19:48 Epinephrine HCl (Adrenalin) Confirm Administered Dose 1 mg .ROUTE .STK-MED ONE Stop: 03/18/18 21:07 Fentanyl (Sublimaze) Confirm Administered Dose 250 mcg .ROUTE .[facility]-MED ONE Stop: 03/18/18 19:48 Glycopyrrolate (Robinul) Confirm Administered Dose 1 mg .ROUTE .STK-MED ONE Stop: 03/18/18 19:48 Heparin Sodium (Porcine) (Heparin Sodium) Confirm Administered Dose 5,000 units .ROUTE .ST-MED ONE Stop: 03/18/18 19:51 Hydromorphone HCl (Dilaudid) 0.5 mg IVPUSH ONETIME ONE Stop: 03/18/18 17:43 Last Admin: 03/18/18 17:47 Dose: 0.5 mg Hydromorphone HCl (Dilaudid) 1 mg IVPUSH ONETIME ONE Stop: 03/18/18 18:18 Last Admin: 03/18/18 18:27 Dose: 1 mg Sodium Chloride (Normal Saline) 1,000 mls @ 1,000 mls/hr IV ASDIRECTED [facility] Last Admin: 03/18/18 17:47 Dose: 1,000 mls/hr Sodium Chloride (Normal Saline) 1,000 mls @ 999 mls/hr IV ASDIRECTED [facility] Last Admin: 03/18/18 19:31 Dose: 999 mls/hr Meropenem 500 mg/ Sodium (Chloride) 50 mls @ 100 mls/hr IV ONETIME ONE Stop: 03/18/18 19:09 Last Admin: 03/18/18 19:01 Dose: 100 mls/hr Sodium Chloride (Normal Saline) Confirm Administered Dose 50 mls @ as directed .ROUTE .[facility]-MED ONE Stop: 03/18/18 19:40 Last Admin: 03/18/18 20:19 Dose: Not Given Aztreonam 2 gm/ Sodium (Chloride) 50 mls @ 100 mls/hr IV ONETIME ONE Stop: 03/18/18 20:01 Last Admin: 03/18/18 20:44 Dose: 100 mls/hr Meropenem 500 mg/ Sodium (Chloride) 50 mls @ 100 mls/hr IV ONETIME ONE Stop: 03/18/18 20:00 Last Admin: 03/18/18 19:40 Dose: 100 mls/hr Sodium Chloride (Normal Saline) Confirm Administered Dose 250 mls @ as directed .ROUTE .[facility]-MED ONE Stop: 03/18/18 19:59 Lactated Ringer's (Ringers, Lactated) Confirm Administered Dose 1,000 mls @ as directed .ROUTE .[facility]-MED ONE Stop: 03/18/18 19:59 Sodium Chloride (Normal Saline) Confirm Administered Dose 500 mls @ as directed .ROUTE .ST-MED ONE Stop: 03/18/18 19:59 Lactated Ringer's (Ringers, Lactated) Confirm Administered Dose 1,000 mls @ as directed .ROUTE .[facility]-MED ONE Stop: 03/18/18 21:42 Aztreonam 1 gm/ Sodium (Chloride) 50 mls @ 100 mls/hr IV Q8H [facility] Last Admin: 03/19/18 05:29 Dose: 100 mls/hr Potassium Chloride/Dextrose/Sod Cl (D5 1/2 Ns W/ 20 Meq/L Kcl) 1,000 mls @ 150 mls/hr IV ASDIRECTED [facility] Last Admin: 03/18/18 23:11 Dose: 150 mls/hr Lactated Ringer's (Ringers, Lactated) 1,000 mls @ 500 mls/hr IV ASDIRECTED [facility] Last Admin: 03/19/18 01:23 Dose: 500 mls/hr Lactated Ringer's (Ringers, Lactated) 1,000 mls @ 500 mls/hr IV BOLUS [facility] Stop: 03/19/18 05:29 Last Admin: 03/19/18 04:02 Dose: 500 mls/hr Meropenem (Merrem) Confirm Administered Dose 500 mg .ROUTE .[facility]-MED ONE Stop: 03/18/18 19:40 Last Admin: 03/18/18 20:19 Dose: Not Given Neostigmine Methylsulfate (Neostigmine) Confirm Administered Dose 5 mg .ROUTE .ST-MED ONE Stop: 03/18/18 19:48 Ondansetron HCl (Zofran) 4 mg IVPUSH ONETIME ONE Stop: 03/18/18 18:18 Last Admin: 03/18/18 18:27 Dose: 4 mg Ondansetron HCl (Zofran) Confirm Administered Dose 4 mg .ROUTE .ST-MED ONE Stop: 03/18/18 19:48 Phenylephrine HCl (Isaías-Synephrine) Confirm Administered Dose 10 mg .ROUTE .STK- MED ONE Stop: 03/18/18 20:05 Propofol (Diprivan 20 Ml) Confirm Administered Dose 200 mg .ROUTE .STK-MED ONE Stop: 03/18/18 19:48 Rocuronium [place] (Zemuron) Confirm Administered Dose 50 mg .ROUTE .STK-MED ONE Stop: 03/18/18 19:48 Succinylcholine Chloride (Quelicin) Confirm Administered Dose 200 mg .ROUTE [facility] ONE Stop: 03/18/18 19:48 - Exam Quality Assessment: Supplemental Oxygen (Ventilator), Central Line/PICC, Urine Catheter, DVT Prophylaxis General: Sedated, Lethargic HEENT: Pupils Equal Lungs: Decreased Breath Sounds. No: Rales, Rhonchi, Rub, Wheezing Cardiovascular: Regular Rhythm, No Murmurs, Tachycardia GI/Abdominal Exam: Other (Surgical dressing in place) Extremities: Non-Tender, Pedal Edema - Problem List Review Problem List Initiated/Reviewed/Updated: Yes - My Orders Last 24 Hours: My Active Orders 03/18/18 21:45 Norepinephrine [Levophed] 8 mg Dextrose 5% in Water 250 ml IV TITRATE 03/19/18 01:00 Vasopressin 100 units Dextrose 5% in Water 250 ml IV TITRATE 03/19/18 09:30 Pantoprazole [ProTONIX IV] 40 mg IVPUSH DAILY 03/19/18 09:51 Central Venous Line Insertion [OM.PC] Urgent 03/19/18 09:54 Consult to PICC Team [CONS] Routine 03/19/18 17:00 BASIC METABOLIC PANEL,BMP [CHEM] Stat BLOOD GAS ARTERIAL [BG] Stat CBC WITH AUTO DIFF [HEME] Stat 03/20/18 05:00 Chest 1V Frontal [CR] Timed BLOOD GAS ARTERIAL [BG] Timed CBC WITH AUTO DIFF [HEME] Timed COMPREHENSIVE METABOLIC PN,CMP [CHEM] Timed MAGNESIUM [CHEM] Timed 03/21/18 05:00 CXR [Chest 1V Frontal] [CR] DAILY 03/22/18 05:00 CXR [Chest 1V Frontal] [CR] DAILY 03/23/18 05:00 CXR [Chest 1V Frontal] [CR] DAILY 03/24/18 05:00 CXR [Chest 1V Frontal] [CR] DAILY - Plan Plan:: ASSESSMENT AND PLAN SIGMOID COLON PERFORATION RESULTING IN ACUTE ABDOMEN AND SEPTIC SHOCK-status post exploratory laparotomy with partial sigmoid colon resection and creation of a colostomy. Remains critically ill with septic shock and respiratory compromise -IV meropenem and Azactam -Post operative surgical care per Dr. Adams SEPTIC SHOCK-secondary to intestinal perforation, solid and liquid stool noted throughout the abdominal cavity at the time of surgery. -Antibiotic therapy as above -Ongoing IV fluids -Continue ongoing use of IV norepinephrine and vasopressin for support of blood pressure ACUTE HYPOXIC RESPIRATORY FAILURE-secondary to septic shock, colon perforation, recent surgery and underlying COPD -Continue mechanical ventilation until he is more hemodynamically stable [id number]-year smoking history -Nebulized albuterol as needed -Vigorous pulmonary toilet during the postoperative period ACUTE KIDNEY INJURY-secondary to septic shock and hypotension -IV fluid resuscitation as above -Closely monitor urine output and renal function during the postoperative period HISTORY OF LUNG AND PROSTATE CARCINOMA-lung cancer felt to be stable, currently receiving active treatment for management of prostate carcinoma MAINTENANCE ISSUES -DVT prophylaxis; SCUDs -GI prophylaxis; Protonix 40 mg IV daily during postoperative period -Sorto catheter; will require during the postoperative period for close monitoring of urine output -Nutrition; nothing by mouth -Nicotine dependence; CODE STATUS-FULL CODE ADMISSION STATUS-patient will be admitted to inpatient status, expect at least a 2 night hospital stay for evaluation and management of problems as outlined above. At the time of this admission I do not reasonably expected evaluation and management of this problem will require more than a 96 hour hospital stay. DISPOSITION-anticipate discharge to home after the hospital stay. PRIMARY CARE PROVIDER-Emil Randall
[2018-03-19] MEDS: Pantoprazole 40 MG Vial IVPUSH SCH (10:47)
[2018-03-19] MEDS: Norepinephrine 8 MG in Dextrose 5% in Water 250 ML IV SCH ×2 (11:45)
[2018-03-19] MEDS ORDERED: Lactated Ringers 1,000 ML IV ONE (13:00)
[2018-03-19] MEDS: Aztreonam/Dextrose-Water 1 GM in Premix Bag 1 BAG IV SCH ×2 (14:26→21:01)
--- NOTE | 2018-03-19 14:26 | CR ---
CHEST: Portable CLINICAL HISTORY:PICC line placement COMPARISON: Earlier 03/19/2018 FINDINGS: There is been interval placement of a PICC line from the right upper extremity. The tip is in the lower superior vena cava. Endotracheal tube is in the distal trachea. Lung bishop are clear. Pulmonary vascularity is normal. There is some mild chronic interstitial changes in both lower lobes. Impression: PICC line from the right arm appears in good position No evidence of pneumothorax Endotracheal tube remains in place
[2018-03-19] MEDS: Lactated Ringers 1,000 ML IV SCH ×2 (14:27→19:30)
--- NOTE | 2018-03-19 17:22 | PCM.SURGPN ---
- General Info Date of Service: 03/19/18 Date of Surgery/Procedure: 03/18/18 POD#: 1 Post-Op Diagnosis: Sigmoid perforation, Hinchey IV Admission Diagnosis/Problem: Perforation of large intestine Functional Status: Reports: Pain Controlled, Urinating (Barely. ). Denies: Tolerating Diet, Ambulating, Incentive Spirometry - Review of Systems General: Reports: Other (Patient is on ventilator, sedated. ) - Patient Data Vitals - Most Recent: Last Vital Signs Temp 97.7 F 03/19/18 10:00 Pulse 104 H 03/19/18 16:00 Resp 18 03/19/18 16:00 BP 97/53 L 03/19/18 16:00 Pulse Ox 100 03/19/18 16:00 Weight - Most Recent: 153 lb 0.013 oz I&O - Last 24 Hours: Intake & Output 03/19/18 03/19/18 03/19/18 06:59 14:59 22:59 Intake Total 5842 Output Total 540 24 65 Balance 5302 -24 -65 Lab Results Last 24 Hrs: Laboratory Results - last 24 hr 03/18/18 03/18/18 03/18/18 Range/Units 18:15 18:15 18:16 WBC 10.4 (4.5-11.0) K/uL RBC 5.86 (4.30-5.90) M/uL Hgb 18.0 H (12.0-15.0) g/dL Hct 54.1 H (40.0-54.0) % MCV 92 (80-98) fL MCH 31 (27-31) pg MCHC 33 (32-36) % Plt Count 218 (150-400) K/uL Neut % (Auto) 88 H (36-66) % Lymph % (Auto) 8 L (24-44) % [place] % (Auto) 4 (2-6) % Eos % (Auto) 0 L (2-4) % Baso % (Auto) 0 (0-1) % Puncture Site ABG pH (7.350-7.450) ABG pCO2 (35.0-42.0) mmHg ABG pO2 (75.0-100.0) mmHg ABG HCO3 (22.0-26.0) mmol/L ABG Total CO2 (23.0-27.0) mmol/L ABG O2 Saturation (95.0-98.0) % ABG O2 Content (15.0-23.0) %vol ABG Base Excess mm/L ABG Hemoglobin (13.5-18.0) g/dL ABG Oxyhemoglobin % ABG Carboxyhemoglobin (0.0-1.6) % ABG Methemoglobin % Craig Test O2 Delivery Device Oxygen Flow Rate L Sodium 146 (140-148) mmol/L Potassium 3.4 L (3.6-5.2) mmol/L Chloride 106 (100-108) mmol/L Carbon Dioxide 21 (21-32) mmol/L Anion Gap 22.4 H (5.0-14.0) mmol/L BUN 22 H (7-18) mg/dL Creatinine 1.8 H (0.8-1.3) mg/dL Est Cr Clr Drug Dosing 33.15 mL/min Estimated GFR (MDRD) 37 L (>60) Glucose 194 H (74-106) mg/dL Lactic Acid 12.1 H (0.4-2.0) mmol/L Calcium 11.3 H (8.5-10.1) mg/dL Total Bilirubin 0.5 (0.2-1.0) mg/dL AST 21 (15-37) U/L ALT 19 (12-78) U/L Alkaline Phosphatase 166 H (46-116) U/L C-Reactive Protein 1.21 H (0.0-0.3) mg/dL Total Protein 7.3 (6.4-8.2) g/dL Albumin 3.1 L (3.4-5.0) g/dL Globulin 4.2 H (2.3-3.5) g/dL Albumin/Globulin Ratio 0.7 L (1.2-2.2) Lipase (73-393) U/L Urine Color Urine Appearance Urine pH (4.5-8.0) Ur Specific [place] (1.008-1.030) Urine Protein (NEGATIVE) mg/dL Urine Glucose (UA) (NEGATIVE) mg/dL Urine Ketones (NEGATIVE) mg/dL Urine Occult Blood (NEGATIVE) Urine Nitrite (NEGAITVE) Urine Bilirubin (NEGATIVE) Urine Urobilinogen (NORMAL) mg/dL Ur Leukocyte Esterase (NEGATIVE) Urine RBC (0-5) Urine WBC (0-5) Ur Epithelial Cells Amorphous Sediment Urine Bacteria Urine Mucus 03/18/18 03/19/18 03/19/18 Range/Units 18:26 00:45 04:50 WBC 5.8 (4.5-11.0) K/uL RBC 4.57 (4.30-5.90) M/uL Hgb 13.8 D (12.0-15.0) g/dL Hct 43.6 (40.0-54.0) % MCV 95 (80-98) fL MCH 30 (27-31) pg MCHC 32 (32-36) % Plt Count 210 (150-400) K/uL Neut % (Auto) (36-66) % Lymph % (Auto) (24-44) % [place] % (Auto) (2-6) % Eos % (Auto) (2-4) % Baso % (Auto) (0-1) % Puncture Site ABG pH (7.350-7.450) ABG pCO2 (35.0-42.0) mmHg ABG pO2 (75.0-100.0) mmHg ABG HCO3 (22.0-26.0) mmol/L ABG Total CO2 (23.0-27.0) mmol/L ABG O2 Saturation (95.0-98.0) % ABG O2 Content (15.0-23.0) %vol ABG Base Excess mm/L ABG Hemoglobin (13.5-18.0) g/dL ABG Oxyhemoglobin % ABG Carboxyhemoglobin (0.0-1.6) % ABG Methemoglobin % Craig Test O2 Delivery Device Oxygen Flow Rate L Sodium (140-148) mmol/L Potassium (3.6-5.2) mmol/L Chloride (100-108) mmol/L Carbon Dioxide (21-32) mmol/L Anion Gap (5.0-14.0) mmol/L BUN (7-18) mg/dL Creatinine (0.8-1.3) mg/dL Est Cr Clr Drug Dosing mL/min Estimated GFR (MDRD) (>60) Glucose (74-106) mg/dL Lactic Acid (0.4-2.0) mmol/L Calcium (8.5-10.1) mg/dL Total Bilirubin (0.2-1.0) mg/dL AST (15-37) U/L ALT (12-78) U/L Alkaline Phosphatase (46-116) U/L C-Reactive Protein (0.0-0.3) mg/dL Total Protein (6.4-8.2) g/dL Albumin (3.4-5.0) g/dL Globulin (2.3-3.5) g/dL Albumin/Globulin Ratio (1.2-2.2) Lipase 113 (73-393) U/L Urine Color Yellow Urine Appearance Clear Urine pH 5.0 (4.5-8.0) Ur Specific [place] 1.015 (1.008-1.030) Urine Protein Trace (NEGATIVE) mg/dL Urine Glucose (UA) Normal (NEGATIVE) mg/dL Urine Ketones Negative (NEGATIVE) mg/dL Urine Occult Blood Large (NEGATIVE) Urine Nitrite Negative (NEGAITVE) Urine Bilirubin Negative (NEGATIVE) Urine Urobilinogen Normal (NORMAL) mg/dL Ur Leukocyte Esterase Negative (NEGATIVE) Urine RBC 0-5 (0-5) Urine WBC 0-5 (0-5) Ur Epithelial Cells Rare Amorphous Sediment Few Urine Bacteria Not seen Urine Mucus Rare 03/19/18 03/19/18 03/19/18 Range/Units 04:50 04:50 09:23 WBC (4.5-11.0) K/uL RBC (4.30-5.90) M/uL Hgb (12.0-15.0) g/dL Hct (40.0-54.0) % MCV (80-98) fL MCH (27-31) pg MCHC (32-36) % Plt Count (150-400) K/uL Neut % (Auto) (36-66) % Lymph % (Auto) (24-44) % [place] % (Auto) (2-6) % Eos % (Auto) (2-4) % Baso % (Auto) (0-1) % Puncture Site Line ABG pH 7.229 L (7.350-7.450) ABG pCO2 45.6 H (35.0-42.0) mmHg ABG pO2 95.3 (75.0-100.0) mmHg ABG HCO3 18.4 L (22.0-26.0) mmol/L ABG Total CO2 17.0 L (23.0-27.0) mmol/L ABG O2 Saturation 96.5 (95.0-98.0) % ABG O2 Content 18.8 (15.0-23.0) %vol ABG Base Excess -8.7 mm/L ABG Hemoglobin 13.9 (13.5-18.0) g/dL ABG Oxyhemoglobin 95.7 % ABG Carboxyhemoglobin 0.2 (0.0-1.6) % ABG Methemoglobin 0.6 % Craig Test Line O2 Delivery Device Ventilator Oxygen Flow Rate L Sodium 142 (140-148) mmol/L Potassium 4.4 (3.6-5.2) mmol/L Chloride 110 H (100-108) mmol/L Carbon Dioxide 21 (21-32) mmol/L Anion Gap 15.4 H (5.0-14.0) mmol/L BUN 28 H (7-18) mg/dL Creatinine 2.0 H (0.8-1.3) mg/dL Est Cr Clr Drug Dosing 29.84 mL/min Estimated GFR (MDRD) 33 L (>60) Glucose 180 H (74-106) mg/dL Lactic Acid 4.9 H (0.4-2.0) mmol/L Calcium 8.9 D (8.5-10.1) mg/dL Total Bilirubin 0.2 D (0.2-1.0) mg/dL AST 85 H D (15-37) U/L ALT 55 D (12-78) U/L Alkaline Phosphatase 110 (46-116) U/L C-Reactive Protein (0.0-0.3) mg/dL Total Protein 4.3 L (6.4-8.2) g/dL Albumin 1.6 L (3.4-5.0) g/dL Globulin 2.7 (2.3-3.5) g/dL Albumin/Globulin Ratio 0.6 L (1.2-2.2) Lipase (73-393) U/L Urine Color Urine Appearance Urine pH (4.5-8.0) Ur Specific [place] (1.008-1.030) Urine Protein (NEGATIVE) mg/dL Urine Glucose (UA) (NEGATIVE) mg/dL Urine Ketones (NEGATIVE) mg/dL Urine Occult Blood (NEGATIVE) Urine Nitrite (NEGAITVE) Urine Bilirubin (NEGATIVE) Urine Urobilinogen (NORMAL) mg/dL Ur Leukocyte Esterase (NEGATIVE) Urine RBC (0-5) Urine WBC (0-5) Ur Epithelial Cells Amorphous Sediment Urine Bacteria Urine Mucus 03/19/18 Range/Units 17:00 WBC (4.5-11.0) K/uL RBC (4.30-5.90) M/uL Hgb (12.0-15.0) g/dL Hct (40.0-54.0) % MCV (80-98) fL MCH (27-31) pg MCHC (32-36) % Plt Count (150-400) K/uL Neut % (Auto) (36-66) % Lymph % (Auto) (24-44) % [place] % (Auto) (2-6) % Eos % (Auto) (2-4) % Baso % (Auto) (0-1) % Puncture Site A-line ABG pH 7.308 L (7.350-7.450) ABG pCO2 38.1 (35.0-42.0) mmHg ABG pO2 85.3 (75.0-100.0) mmHg ABG HCO3 18.5 L (22.0-26.0) mmol/L ABG Total CO2 16.7 L (23.0-27.0) mmol/L ABG O2 Saturation 96.2 (95.0-98.0) % ABG O2 Content 18.8 (15.0-23.0) %vol ABG Base Excess -6.7 mm/L ABG Hemoglobin 14.0 (13.5-18.0) g/dL ABG Oxyhemoglobin 95.0 % ABG Carboxyhemoglobin 0.6 (0.0-1.6) % ABG Methemoglobin 0.6 % Craig Test A-line O2 Delivery Device Ventilator Oxygen Flow Rate L Sodium (140-148) mmol/L Potassium (3.6-5.2) mmol/L Chloride (100-108) mmol/L Carbon Dioxide (21-32) mmol/L Anion Gap (5.0-14.0) mmol/L BUN (7-18) mg/dL Creatinine (0.8-1.3) mg/dL Est Cr Clr Drug Dosing mL/min Estimated GFR (MDRD) (>60) Glucose (74-106) mg/dL Lactic Acid (0.4-2.0) mmol/L Calcium (8.5-10.1) mg/dL Total Bilirubin (0.2-1.0) mg/dL AST (15-37) U/L ALT (12-78) U/L Alkaline Phosphatase (46-116) U/L C-Reactive Protein (0.0-0.3) mg/dL Total Protein (6.4-8.2) g/dL Albumin (3.4-5.0) g/dL Globulin (2.3-3.5) g/dL Albumin/Globulin Ratio (1.2-2.2) Lipase (73-393) U/L Urine Color Urine Appearance Urine pH (4.5-8.0) Ur Specific [place] (1.008-1.030) Urine Protein (NEGATIVE) mg/dL Urine Glucose (UA) (NEGATIVE) mg/dL Urine Ketones (NEGATIVE) mg/dL Urine Occult Blood (NEGATIVE) Urine Nitrite (NEGAITVE) Urine Bilirubin (NEGATIVE) Urine Urobilinogen (NORMAL) mg/dL Ur Leukocyte Esterase (NEGATIVE) Urine RBC (0-5) Urine WBC (0-5) Ur Epithelial Cells Amorphous Sediment Urine Bacteria Urine Mucus Dante Results Last 24 Hrs: Microbiology 03/18/18 18:55 Aerobic Blood Culture - Preliminary Blood - Venous - Lab Draw 03/18/18 20:59 Gram Stain - Final Peritoneal Fluid Med Orders - Current: Current Medications Propofol (Diprivan 100 Ml) 100 mls @ 2.082 mls/hr IV TITRATE [facility]; Protocol Last Admin: 03/19/18 08:56 Dose: 20 mcg/kg/min, 8.328 mls/hr Meropenem 1 gm/ Sodium (Chloride) 50 mls @ 100 mls/hr IV Q12H [facility] Last Admin: 03/19/18 08:12 Dose: 100 mls/hr Vasopressin 100 units/ (Dextrose/Water) 255 mls @ 1.53 mls/hr IV TITRATE [facility]; Protocol Last Titration: 03/19/18 05:29 Dose: 0.08 units/min, 12.24 mls/hr Aztreonam/Dextrose 1 gm/ (Premix) 50 mls @ 100 mls/hr IV Q8H [facility] Last Admin: 03/19/18 14:26 Dose: 100 mls/hr Lactated Ringer's (Ringers, Lactated) 1,000 mls @ 150 mls/hr IV ASDIRECTED [facility] Last Admin: 03/19/18 14:27 Dose: 150 mls/hr Norepinephrine Bitartrate 8 mg (/ Dextrose/Water) 250 mls @ 3.75 mls/hr IV TITRATE [facility]; Protocol Pantoprazole Sodium (Protonix Iv) 40 mg IVPUSH DAILY [facility] Last Admin: 03/19/18 10:47 Dose: 40 mg Discontinued Medications Dexamethasone (Dexamethasone) Confirm Administered Dose 4 mg .ROUTE .STK-MED ONE Stop: 03/18/18 19:48 Epinephrine HCl (Adrenalin) Confirm Administered Dose 1 mg .ROUTE .STK-MED ONE Stop: 03/18/18 21:07 Fentanyl (Sublimaze) Confirm Administered Dose 250 mcg .ROUTE .STK-MED ONE Stop: 03/18/18 19:48 Glycopyrrolate (Robinul) Confirm Administered Dose 1 mg .ROUTE .STK-MED ONE Stop: 03/18/18 19:48 Heparin Sodium (Porcine) (Heparin Sodium) Confirm Administered Dose 5,000 units .ROUTE .STK-MED ONE Stop: 03/18/18 19:51 Hydromorphone HCl (Dilaudid) 0.5 mg IVPUSH ONETIME ONE Stop: 03/18/18 17:43 Last Admin: 03/18/18 17:47 Dose: 0.5 mg Hydromorphone HCl (Dilaudid) 1 mg IVPUSH ONETIME ONE Stop: 03/18/18 18:18 Last Admin: 03/18/18 18:27 Dose: 1 mg Sodium Chloride (Normal Saline) 1,000 mls @ 1,000 mls/hr IV ASDIRECTED [facility] Last Admin: 03/18/18 17:47 Dose: 1,000 mls/hr Sodium Chloride (Normal Saline) 1,000 mls @ 999 mls/hr IV ASDIRECTED [facility] Last Admin: 03/18/18 19:31 Dose: 999 mls/hr Meropenem 500 mg/ Sodium (Chloride) 50 mls @ 100 mls/hr IV ONETIME ONE Stop: 03/18/18 19:09 Last Admin: 03/18/18 19:01 Dose: 100 mls/hr Sodium Chloride (Normal Saline) Confirm Administered Dose 50 mls @ as directed .ROUTE .STK-MED ONE Stop: 03/18/18 19:40 Last Admin: 03/18/18 20:19 Dose: Not Given Aztreonam 2 gm/ Sodium (Chloride) 50 mls @ 100 mls/hr IV ONETIME ONE Stop: 03/18/18 20:01 Last Admin: 03/18/18 20:44 Dose: 100 mls/hr Meropenem 500 mg/ Sodium (Chloride) 50 mls @ 100 mls/hr IV ONETIME ONE Stop: 03/18/18 20:00 Last Admin: 03/18/18 19:40 Dose: 100 mls/hr Sodium Chloride (Normal Saline) Confirm Administered Dose 250 mls @ as directed .ROUTE .[facility] ONE Stop: 03/18/18 19:59 Lactated Ringer's (Ringers, Lactated) Confirm Administered Dose 1,000 mls @ as directed .ROUTE .[facility] ONE Stop: 03/18/18 19:59 Sodium Chloride (Normal Saline) Confirm Administered Dose 500 mls @ as directed .ROUTE .[facility] ONE Stop: 03/18/18 19:59 Norepinephrine Bitartrate 8 mg (/ Dextrose/Water) 258 mls @ 3.87 mls/hr IV TITRATE [facility]; Protocol Last Admin: 03/19/18 11:45 Dose: 12 mcg/min, 23.22 mls/hr Lactated Ringer's (Ringers, Lactated) Confirm Administered Dose 1,000 mls @ as [facility] Stop: 03/18/18 21:42 Aztreonam 1 gm/ Sodium (Chloride) 50 mls @ 100 mls/hr IV Q8H [facility] Last Admin: 03/19/18 05:29 Dose: 100 mls/hr Potassium Chloride/Dextrose/Sod Cl (D5 1/2 Ns W/ 20 Meq/L Kcl) 1,000 mls @ 150 mls/hr IV ASDIRECTED [facility] Last Admin: 03/18/18 23:11 Dose: 150 mls/hr Lactated Ringer's (Ringers, Lactated) 1,000 mls @ 500 mls/hr IV ASDIRECTED [facility] Last Admin: 03/19/18 01:23 Dose: 500 mls/hr Lactated Ringer's (Ringers, Lactated) 1,000 mls @ 500 mls/hr IV BOLUS [facility] Stop: 03/19/18 05:29 Last Admin: 03/19/18 04:02 Dose: 500 mls/hr Lactated Ringer's (Ringers, Lactated) 1,000 mls @ 500 mls/hr IV .BOLUS ONE Stop: 03/19/18 14:59 Last Admin: 03/19/18 14:27 Dose: 500 mls/hr Meropenem (Merrem) Confirm Administered Dose 500 mg .ROUTE .STK-MED ONE Stop: 03/18/18 19:40 Last Admin: 03/18/18 20:19 Dose: Not Given Neostigmine Methylsulfate (Neostigmine) Confirm Administered Dose 5 mg .ROUTE .STK-MED ONE Stop: 03/18/18 19:48 Ondansetron HCl (Zofran) 4 mg IVPUSH ONETIME ONE Stop: 03/18/18 18:18 Last Admin: 03/18/18 18:27 Dose: 4 mg Ondansetron HCl (Zofran) Confirm Administered Dose 4 mg .ROUTE .STK-MED ONE Stop: 03/18/18 19:48 Phenylephrine HCl (Isaías-Synephrine) Confirm Administered Dose 10 mg .ROUTE .STK- MED ONE Stop: 03/18/18 20:05 Propofol (Diprivan 20 Ml) Confirm Administered Dose 200 mg .ROUTE .STK-MED ONE Stop: 03/18/18 19:48 Rocuronium [place] (Zemuron) Confirm Administered Dose 50 mg .ROUTE .STK-MED ONE Stop: 03/18/18 19:48 Succinylcholine Chloride (Quelicin) Confirm Administered Dose 200 mg .ROUTE .STK -MED ONE Stop: 03/18/18 19:48 - Exam Wound/Incisions: Drainage Quality Assessment: Supplemental Oxygen (FiO2 40% on ventilator) General: Sedated Lungs: Crackles Cardiovascular: Regular Rate GI/Abdominal Exam: No: Normal Bowel Sounds Extremities: Normal Inspection Skin: Warm, Dry, Intact, Other (Mottling has resolved. ) Neurological: Other (Sedated) Psy/Mental Status: Other (Sedated.) - Problem List & Annotations (1) Perforation of sigmoid colon SNOMED Code(s): 259498975 Code(s): K63.1 - PERFORATION OF INTESTINE (NONTRAUMATIC) Status: Acute Current Visit: Yes - Problem List Review Problem List Initiated/Reviewed/Updated: Yes - My Orders Last 24 Hours: Active Orders 24 hr Category Date Time Status Admission Diagnosis [ADT] Stat ADT 03/18/18 22:30 Ordered Transfer Patient (Change bed) [ADT] Routine ADT 03/18/18 22:29 Ordered Dietary Supplements [RC] BIDMEALS Care 03/18/18 18:40 Active RASS Sedation Scale [RC] Q4H Care 03/18/18 22:22 Active Up to Chair [RC] ASDIRECTED Care 03/18/18 22:31 Active Vital Signs [RC] Q1H Care 03/18/18 22:31 Active Consult to PICC Team [CONS] Routine Cons 03/19/18 09:54 Active NPO Now [Nothing per Oral Now Diet] [DIET] Diet 03/19/18 Breakfast Active CXR [Chest 1V Frontal] [CR] DAILY Exams 03/21/18 05:00 Ordered CXR [Chest 1V Frontal] [CR] DAILY Exams 03/22/18 05:00 Ordered CXR [Chest 1V Frontal] [CR] DAILY Exams 03/23/18 05:00 Ordered CXR [Chest 1V Frontal] [CR] DAILY Exams 03/24/18 05:00 Ordered Chest 1V Frontal [CR] Timed Exams 03/20/18 05:00 Ordered Chest Abdomen Pelvis wo Cont [CT] Stat Exams 03/18/18 17:43 Taken BASIC METABOLIC PANEL,BMP [CHEM] Stat Lab 03/19/18 16:50 Received BLOOD GAS ARTERIAL [BG] Timed Lab 03/20/18 05:00 Ordered CBC WITH AUTO DIFF [HEME] Stat Lab 03/19/18 16:50 Received CBC WITH AUTO DIFF [HEME] Timed Lab 03/20/18 05:00 Ordered COMPREHENSIVE METABOLIC PN,CMP [CHEM] Timed Lab 03/20/18 05:00 Ordered CULTURE ANAEROBIC [RM] Routine Lab 03/18/18 20:59 Results CULTURE BLOOD [BC] Urgent Lab 03/18/18 18:45 Received CULTURE BLOOD [BC] Urgent Lab 03/18/18 18:55 Results CULTURE WOUND + SMEAR [RM] Routine Lab 03/18/18 20:59 Results LACTIC ACID [CHEM] Stat Lab 03/19/18 16:50 Received LACTIC ACID [CHEM] Timed Lab 03/20/18 05:00 Ordered MAGNESIUM [CHEM] Timed Lab 03/20/18 05:00 Ordered Aztreonam/Dextrose-Water [Azactam in Dextrose,Iso- Med 03/19/18 13:00 Active Osmotic 1 GM/50 ML] 1 gm Premix Bag 1 bag IV Q8H Lactated Ringers [Ringers, Lactated] 1,000 ml Med 03/19/18 15:00 Active IV ASDIRECTED Meropenem [Merrem] 1 gm Med 03/19/18 08:00 Active Sodium Chloride 0.9% [Normal Saline] 50 ml IV Q12H Norepinephrine [Levophed] 8 mg Med 03/19/18 15:30 Active Dextrose 5% in Water 242 ml IV TITRATE Pantoprazole [ProTONIX IV] Med 03/19/18 09:30 Active 40 mg IVPUSH DAILY Propofol [Diprivan 100 ML] 100 ml Med 03/18/18 22:30 Active IV TITRATE Vasopressin 100 units Med 03/19/18 01:00 Active Dextrose 5% in Water 250 ml IV TITRATE Blood Culture x2 Reflex Set [OM.PC] Urgent Oth 03/18/18 18:39 Ordered Central Venous Line Insertion [OM.PC] Urgent Oth 03/19/18 09:51 Ordered Desired Level of Sedation (RASS) [AST] Click to Edit Oth 03/18/18 22:22 Ordered Nasogastric Orogastric Tube Insertion [OM.PC] Routine Oth 03/18/18 19:58 Ordered EKG 12 Lead [EK] Routine Ther 03/18/18 18:16 Ordered Medication Orders Propofol (Diprivan 100 Ml) 100 mls @ 2.082 mls/hr IV TITRATE [facility]; Protocol Last Admin: 03/19/18 08:56 Dose: 20 mcg/kg/min, 8.328 mls/hr Titration: 03/19/18 08:56 Dose: 25 mcg/kg/min, 10.41 mls/hr Titration: 03/19/18 06:13 Dose: 25 mcg/kg/min, 10.41 mls/hr Titration: 03/19/18 00:26 Dose: 20 mcg/kg/min, 8.328 mls/hr Titration: 03/18/18 23:29 Dose: 10 mcg/kg/min, 4.164 mls/hr Titration: 03/18/18 23:18 Dose: 15 mcg/kg/min, 6.246 mls/hr Admin: 03/18/18 22:49 Dose: 5 mcg/kg/min, 2.082 mls/hr Meropenem 1 gm/ Sodium (Chloride) 50 mls @ 100 mls/hr IV Q12H [facility] Last Admin: 03/19/18 08:12 Dose: 100 mls/hr Vasopressin 100 units/ (Dextrose/Water) 255 mls @ 1.53 mls/hr IV TITRATE [facility]; Protocol Last Titration: 03/19/18 05:29 Dose: 0.08 units/min, 12.24 mls/hr Titration: 03/19/18 05:14 Dose: 0.075 units/min, 11.47 mls/hr Titration: 03/19/18 04:54 Dose: 0.07 units/min, 10.71 mls/hr Titration: 03/19/18 04:36 Dose: 0.065 units/min, 9.94 mls/hr Titration: 03/19/18 04:25 Dose: 0.06 units/min, 9.18 mls/hr Titration: 03/19/18 04:14 Dose: 0.055 units/min, 8.41 mls/hr Titration: 03/19/18 04:00 Dose: 0.05 units/min, 7.65 mls/hr Titration: 03/19/18 03:33 Dose: 0.045 units/min, 6.88 mls/hr Titration: 03/19/18 03:10 Dose: 0.04 units/min, 6.12 mls/hr Titration: 03/19/18 02:55 Dose: 0.035 units/min, 5.35 mls/hr Titration: 03/19/18 02:39 Dose: 0.03 units/min, 4.59 mls/hr Titration: 03/19/18 02:19 Dose: 0.025 units/min, 3.82 mls/hr Titration: 03/19/18 02:06 Dose: 0.02 units/min, 3.06 mls/hr Titration: 03/19/18 01:52 Dose: 0.015 units/min, 2.29 mls/hr Admin: 03/19/18 01:20 Dose: 0.01 units/min, 1.53 mls/hr Aztreonam/Dextrose 1 gm/ (Premix) 50 mls @ 100 mls/hr IV Q8H [facility] Last Admin: 03/19/18 14:26 Dose: 100 mls/hr Lactated Ringer's (Ringers, Lactated) 1,000 mls @ 150 mls/hr IV ASDIRECTED [facility] Last Admin: 03/19/18 14:27 Dose: 150 mls/hr Norepinephrine Bitartrate 8 mg (/ Dextrose/Water) 250 mls @ 3.75 mls/hr IV TITRATE [facility]; Protocol Pantoprazole Sodium (Protonix Iv) 40 mg IVPUSH DAILY [facility] Last Admin: 03/19/18 10:47 Dose: 40 mg - Assessment Assessment (Free Text/Narrative):: Hypotensive with skin mottling and minimal urine output last night. Doing better today. Remains sedated on ventilator, oxygenating on 40% FiO2 well. BP up. Starting to make urine. - Plan Plan (Free Text/Narrative):: Follow. Still critical condition.
[2018-03-19] MEDS: Norepinephrine 8 MG in Dextrose 5% in Water 242 ML IV SCH ×2 (23:38)
[2018-03-20] MEDS: Vasopressin 100 UNITS in Dextrose 5% in Water 250 ML IV SCH ×4 (00:27→18:12)
[2018-03-20] MEDS: Lactated Ringers 1,000 ML IV SCH ×4 (02:16→22:29)
[2018-03-20] MEDS: Aztreonam/Dextrose-Water 1 GM in Premix Bag 1 BAG IV SCH ×3 (05:34→21:31)
--- NOTE | 2018-03-20 08:49 | CR ---
CHEST: Portable CLINICAL HISTORY:Intubation COMPARISON:03/19/2018 FINDINGS: Endotracheal tube is in the distal third of the trachea. There is a PICC line in the superior vena cava atrial junction region. There is some diffuse mild chronic interstitial changes. Impression: Endotracheal tube and right-sided PICC line are in good position Chronic interstitial changes No significant interval change from prior study
[2018-03-20] MEDS: Pantoprazole 40 MG Vial IVPUSH SCH (09:39)
[2018-03-20] MEDS: Magnesium Sulfate/Water 2 GM in Premix Bag 1 BAG IV SCH ×2 (11:10→16:30)
[2018-03-20] MEDS: Norepinephrine 8 MG in Dextrose 5% in Water 242 ML IV SCH ×2 (11:48)
--- NOTE | 2018-03-20 12:27 | PCM.PN ---
- General Info Date of Service: 03/20/18 Subjective Update: Mr. Silva shown modest improvement since yesterday, continues to make some urine and blood pressure has been within desired range over the last 24 hours. Stable on current ventilator settings and an FiO2 of 40%. Vasopressin has been decreased moderately during the night and will continue to work on tapering off of pressors. He is unable to provide information concerning symptoms or review of systems because of sedation and intubation - Patient Data Vitals - Most Recent: Last Vital Signs Temp 98.1 F 03/20/18 08:00 Pulse 113 H 03/20/18 11:00 Resp 21 H 03/20/18 10:00 BP 110/63 03/20/18 11:00 Pulse Ox 100 03/20/18 10:00 Weight - Most Recent: 153 lb 0.013 oz I&O - Last 24 Hours: Intake & Output 03/19/18 03/20/18 03/20/18 22:59 06:59 14:59 Intake Total 3414 2329 Output Total 655 415 100 Balance 2759 1914 -100 Lab Results Last 24 Hours: Laboratory Results - last 24 hr 03/19/18 03/19/18 03/19/18 Range/Units 16:50 16:50 16:50 WBC 13.1 H (4.5-11.0) K/uL RBC 4.64 (4.30-5.90) M/uL Hgb 14.0 (12.0-15.0) g/dL Hct 43.8 (40.0-54.0) % MCV 94 (80-98) fL MCH 30 (27-31) pg MCHC 32 (32-36) % Plt Count 167 (150-400) K/uL Neut % (Auto) Lymph % (Auto) [place] % (Auto) Eos % (Auto) Baso % (Auto) Add Manual Diff Yes Neutrophils % (Manual) 85 H (36-66) % Band Neutrophils % 4 L (5-11) % Lymphocytes % (Manual) 9 L (24-44) % Monocytes % (Manual) 2 (2-6) % Metamyelocytes % % Puncture Site ABG pH (7.350-7.450) ABG pCO2 (35.0-42.0) mmHg ABG pO2 (75.0-100.0) mmHg ABG HCO3 (22.0-26.0) mmol/L ABG Total CO2 (23.0-27.0) mmol/L ABG O2 Saturation (95.0-98.0) % ABG O2 Content (15.0-23.0) %vol ABG Base Excess mm/L ABG Hemoglobin (13.5-18.0) g/dL ABG Oxyhemoglobin % ABG Carboxyhemoglobin (0.0-1.6) % ABG Methemoglobin % Craig Test O2 Delivery Device Oxygen Flow Rate L Sodium 138 L (140-148) mmol/L Potassium 5.5 H (3.6-5.2) mmol/L Chloride 107 (100-108) mmol/L Carbon Dioxide 20 L (21-32) mmol/L Anion Gap 16.5 H (5.0-14.0) mmol/L BUN 37 H (7-18) mg/dL Creatinine 2.3 H (0.8-1.3) mg/dL Est Cr Clr Drug Dosing 25.88 mL/min Estimated GFR (MDRD) 28 L (>60) Glucose 108 H (74-106) mg/dL Lactic Acid 4.0 H (0.4-2.0) mmol/L Calcium 8.6 (8.5-10.1) mg/dL Magnesium (1.8-2.4) mg/dL Total Bilirubin (0.2-1.0) mg/dL AST (15-37) U/L ALT (12-78) U/L Alkaline Phosphatase (46-116) U/L Total Protein (6.4-8.2) g/dL Albumin (3.4-5.0) g/dL Globulin (2.3-3.5) g/dL Albumin/Globulin Ratio (1.2-2.2) 03/19/18 03/20/18 03/20/18 Range/Units 17:00 05:00 05:00 WBC 16.5 H (4.5-11.0) K/uL RBC 4.34 (4.30-5.90) M/uL Hgb 13.4 (12.0-15.0) g/dL Hct 40.1 (40.0-54.0) % MCV 92 (80-98) fL MCH 31 (27-31) pg MCHC 33 (32-36) % Plt Count 139 L (150-400) K/uL Neut % (Auto) Molecular Pathologist Lymph % (Auto) Molecular Pathologist [place] % (Auto) Molecular Pathologist Eos % (Auto) Molecular Pathologist Baso % (Auto) Molecular Pathologist Add Manual Diff Yes Neutrophils % (Manual) 61 (36-66) % Band Neutrophils % 25 H (5-11) % Lymphocytes % (Manual) 7 L (24-44) % Monocytes % (Manual) 2 (2-6) % Metamyelocytes % 5 % Puncture Site A-line line ABG pH 7.308 L 7.416 (7.350-7.450) ABG pCO2 38.1 29.5 L (35.0-42.0) mmHg ABG pO2 85.3 70.1 L (75.0-100.0) mmHg ABG HCO3 18.5 L 18.6 L (22.0-26.0) mmol/L ABG Total CO2 16.7 L 16.4 L (23.0-27.0) mmol/L ABG O2 Saturation 96.2 94.6 L (95.0-98.0) % ABG O2 Content 18.8 17.6 (15.0-23.0) %vol ABG Base Excess -6.7 -4.4 mm/L ABG Hemoglobin 14.0 13.4 L (13.5-18.0) g/dL ABG Oxyhemoglobin 95.0 93.2 % ABG Carboxyhemoglobin 0.6 0.8 (0.0-1.6) % ABG Methemoglobin 0.6 0.7 % Craig Test A-line O2 Delivery Device Ventilator Ventilator Oxygen Flow Rate L Sodium (140-148) mmol/L Potassium (3.6-5.2) mmol/L Chloride (100-108) mmol/L Carbon Dioxide (21-32) mmol/L Anion Gap (5.0-14.0) mmol/L BUN (7-18) mg/dL Creatinine (0.8-1.3) mg/dL Est Cr Clr Drug Dosing mL/min Estimated GFR (MDRD) (>60) Glucose (74-106) mg/dL Lactic Acid (0.4-2.0) mmol/L Calcium (8.5-10.1) mg/dL Magnesium (1.8-2.4) mg/dL Total Bilirubin (0.2-1.0) mg/dL AST (15-37) U/L ALT (12-78) U/L Alkaline Phosphatase (46-116) U/L Total Protein (6.4-8.2) g/dL Albumin (3.4-5.0) g/dL Globulin (2.3-3.5) g/dL Albumin/Globulin Ratio (1.2-2.2) 03/20/18 03/20/18 Range/Units 05:00 05:00 WBC (4.5-11.0) K/uL RBC (4.30-5.90) M/uL Hgb (12.0-15.0) g/dL Hct (40.0-54.0) % MCV (80-98) fL MCH (27-31) pg MCHC (32-36) % Plt Count (150-400) K/uL Neut % (Auto) Lymph % (Auto) [place] % (Auto) Eos % (Auto) Baso % (Auto) Add Manual Diff Neutrophils % (Manual) (36-66) % Band Neutrophils % (5-11) % Lymphocytes % (Manual) (24-44) % Monocytes % (Manual) (2-6) % Metamyelocytes % % Puncture Site ABG pH (7.350-7.450) ABG pCO2 (35.0-42.0) mmHg ABG pO2 (75.0-100.0) mmHg ABG HCO3 (22.0-26.0) mmol/L ABG Total CO2 (23.0-27.0) mmol/L ABG O2 Saturation (95.0-98.0) % ABG O2 Content (15.0-23.0) %vol ABG Base Excess mm/L ABG Hemoglobin (13.5-18.0) g/dL ABG Oxyhemoglobin % ABG Carboxyhemoglobin (0.0-1.6) % ABG Methemoglobin % Craig Test O2 Delivery Device Oxygen Flow Rate L Sodium 136 L (140-148) mmol/L Potassium 5.6 H (3.6-5.2) mmol/L Chloride 104 (100-108) mmol/L Carbon Dioxide 20 L (21-32) mmol/L Anion Gap 17.6 H (5.0-14.0) mmol/L BUN 43 H (7-18) mg/dL Creatinine 2.5 H (0.8-1.3) mg/dL Est Cr Clr Drug Dosing 23.81 mL/min Estimated GFR (MDRD) 25 L (>60) Glucose 90 (74-106) mg/dL Lactic Acid 3.7 H (0.4-2.0) mmol/L Calcium 8.0 L (8.5-10.1) mg/dL Magnesium 1.5 L (1.8-2.4) mg/dL Total Bilirubin 0.4 D (0.2-1.0) mg/dL AST 221 H D (15-37) U/L ALT 90 H (12-78) U/L Alkaline Phosphatase 83 (46-116) U/L Total Protein 4.5 L (6.4-8.2) g/dL Albumin 1.4 L (3.4-5.0) g/dL Globulin 3.1 (2.3-3.5) g/dL Albumin/Globulin Ratio 0.5 L (1.2-2.2) Dante Results Last 24 Hours: Microbiology 03/18/18 20:59 Gram Stain - Final Peritoneal Fluid Wound Culture - Preliminary Escherichia Coli Anaerobic Culture - Preliminary 03/18/18 18:55 Aerobic Blood Culture - Preliminary Blood - Venous - Lab Draw Anaerobic Blood Culture - Preliminary NO GROWTH AFTER 1 DAY 03/18/18 18:45 Aerobic Blood Culture - Preliminary Blood - Venous NO GROWTH AFTER 1 DAY Anaerobic Blood Culture - Preliminary NO GROWTH AFTER 1 DAY Med Orders - Current: Current Medications Propofol (Diprivan 100 Ml) 100 mls @ 2.082 mls/hr IV TITRATE [facility]; Protocol Last Titration: 03/20/18 11:48 Dose: 23 mcg/kg/min, 9.577 mls/hr Meropenem 1 gm/ Sodium (Chloride) 50 mls @ 100 mls/hr IV Q12H [facility] Last Admin: 03/20/18 08:04 Dose: 100 mls/hr Vasopressin 100 units/ (Dextrose/Water) 255 mls @ 1.53 mls/hr IV TITRATE [facility]; Protocol Last Titration: 03/20/18 10:05 Dose: 0.04 units/min, 6.12 mls/hr Aztreonam/Dextrose 1 gm/ (Premix) 50 mls @ 100 mls/hr IV Q8H [facility] Last Admin: 03/20/18 05:34 Dose: 100 mls/hr Lactated Ringer's (Ringers, Lactated) 1,000 mls @ 150 mls/hr IV ASDIRECTED [facility] Last Admin: 03/20/18 09:00 Dose: 150 mls/hr Norepinephrine Bitartrate 8 mg (/ Dextrose/Water) 250 mls @ 3.75 mls/hr IV TITRATE [facility]; Protocol Last Admin: 03/20/18 11:48 Dose: 12 mcg/min, 22.5 mls/hr Magnesium Sulfate 2 gm/ Premix 50 mls @ 25 mls/hr IV Q6H [facility] Stop: 03/20/18 17:59 Last Admin: 03/20/18 11:10 Dose: 25 mls/hr Pantoprazole Sodium (Protonix Iv) 40 mg IVPUSH DAILY [facility] Last Admin: 03/20/18 09:39 Dose: 40 mg Discontinued Medications Dexamethasone (Dexamethasone) Confirm Administered Dose 4 mg .ROUTE .STK-MED ONE Stop: 03/18/18 19:48 Epinephrine HCl (Adrenalin) Confirm Administered Dose 1 mg .ROUTE .STK-MED ONE Stop: 03/18/18 21:07 Fentanyl (Sublimaze) Confirm Administered Dose 250 mcg .ROUTE .STK-MED ONE Stop: 03/18/18 19:48 Glycopyrrolate (Robinul) Confirm Administered Dose 1 mg .ROUTE .STK-MED ONE Stop: 03/18/18 19:48 Heparin Sodium (Porcine) (Heparin Sodium) Confirm Administered Dose 5,000 units .ROUTE .STK-MED ONE Stop: 03/18/18 19:51 Hydromorphone HCl (Dilaudid) 0.5 mg IVPUSH ONETIME ONE Stop: 03/18/18 17:43 Last Admin: 03/18/18 17:47 Dose: 0.5 mg Hydromorphone HCl (Dilaudid) 1 mg IVPUSH ONETIME ONE Stop: 03/18/18 18:18 Last Admin: 03/18/18 18:27 Dose: 1 mg Sodium Chloride (Normal Saline) 1,000 mls @ 1,000 mls/hr IV ASDIRECTED [facility] Last Admin: 03/18/18 17:47 Dose: 1,000 mls/hr Sodium Chloride (Normal Saline) 1,000 mls @ 999 mls/hr IV ASDIRECTED [facility] Last Admin: 03/18/18 19:31 Dose: 999 mls/hr Meropenem 500 mg/ Sodium (Chloride) 50 mls @ 100 mls/hr IV ONETIME ONE Stop: 03/18/18 19:09 Last Admin: 03/18/18 19:01 Dose: 100 mls/hr Sodium Chloride (Normal Saline) Confirm Administered Dose 50 mls @ as directed .ROUTE .[email or web address] ONE Stop: 03/18/18 19:40 Last Admin: 03/18/18 20:19 Dose: Not Given Aztreonam 2 gm/ Sodium (Chloride) 50 mls @ 100 mls/hr IV ONETIME ONE Stop: 03/18/18 20:01 Last Admin: 03/18/18 20:44 Dose: 100 mls/hr Meropenem 500 mg/ Sodium (Chloride) 50 mls @ 100 mls/hr IV ONETIME ONE Stop: 03/18/18 20:00 Last Admin: 03/18/18 19:40 Dose: 100 mls/hr Sodium Chloride (Normal Saline) Confirm Administered Dose 250 mls @ as directed .ROUTE .[facility] ONE Stop: 03/18/18 19:59 Lactated Ringer's (Ringers, Lactated) Confirm Administered Dose 1,000 mls @ as directed .ROUTE .[facility] ONE Stop: 03/18/18 19:59 Sodium Chloride (Normal Saline) Confirm Administered Dose 500 mls @ as directed .ROUTE .[facility] ONE Stop: 03/18/18 19:59 Norepinephrine Bitartrate 8 mg (/ Dextrose/Water) 258 mls @ 3.87 mls/hr IV TITRATE [facility]; Protocol Last Admin: 03/19/18 11:45 Dose: 12 mcg/min, 23.22 mls/hr Lactated Ringer's (Ringers, Lactated) Confirm Administered Dose 1,000 mls @ [facility] Stop: 03/18/18 21:42 Aztreonam 1 gm/ Sodium (Chloride) 50 mls @ 100 mls/hr IV Q8H [facility] Last Admin: 03/19/18 05:29 Dose: 100 mls/hr Potassium Chloride/Dextrose/Sod Cl (D5 1/2 Ns W/ 20 Meq/L Kcl) 1,000 mls @ 150 mls/hr IV ASDIRECTED [facility] Last Admin: 03/18/18 23:11 Dose: 150 mls/hr Lactated Ringer's (Ringers, Lactated) 1,000 mls @ 500 mls/hr IV ASDIRECTED [facility] Last Admin: 03/19/18 01:23 Dose: 500 mls/hr Lactated Ringer's (Ringers, Lactated) 1,000 mls @ 500 mls/hr IV BOLUS [facility] Stop: 03/19/18 05:29 Last Admin: 03/19/18 04:02 Dose: 500 mls/hr Lactated Ringer's (Ringers, Lactated) 1,000 mls @ 500 mls/hr IV .BOLUS ONE Stop: 03/19/18 14:59 Last Admin: 03/19/18 14:27 Dose: 500 mls/hr Meropenem (Merrem) Confirm Administered Dose 500 mg .ROUTE .STK-MED ONE Stop: 03/18/18 19:40 Last Admin: 03/18/18 20:19 Dose: Not Given Neostigmine Methylsulfate (Neostigmine) Confirm Administered Dose 5 mg .ROUTE .STK-MED ONE Stop: 03/18/18 19:48 Ondansetron HCl (Zofran) 4 mg IVPUSH ONETIME ONE Stop: 03/18/18 18:18 Last Admin: 03/18/18 18:27 Dose: 4 mg Ondansetron HCl (Zofran) Confirm Administered Dose 4 mg .ROUTE .STK-MED ONE Stop: 03/18/18 19:48 Phenylephrine HCl (Isaías-Synephrine) Confirm Administered Dose 10 mg .ROUTE .STK- MED ONE Stop: 03/18/18 20:05 Propofol (Diprivan 20 Ml) Confirm Administered Dose 200 mg .ROUTE .STK-MED ONE Stop: 03/18/18 19:48 Rocuronium Tatamy (Zemuron) Confirm Administered Dose 50 mg .ROUTE .STK-MED ONE Stop: 03/18/18 19:48 Succinylcholine Chloride (Quelicin) Confirm Administered Dose 200 mg .ROUTE .STK -MED ONE Stop: 03/18/18 19:48 - Exam Quality Assessment: Supplemental Oxygen (Mechanical ventilation), Central Line/ PICC, Urine Catheter, DVT Prophylaxis HEENT: Pupils Equal, Pupils Reactive Lungs: Clear to Auscultation, Decreased Breath Sounds. No: Rales, Rhonchi, Wheezing Cardiovascular: Regular Rate, Regular Rhythm, No Murmurs GI/Abdominal Exam: Soft, Non-Tender, No Organomegaly, No Distention Extremities: Non-Tender, Pedal Edema - Problem List Review Problem List Initiated/Reviewed/Updated: Yes - My Orders Last 24 Hours: My Active Orders 03/19/18 15:00 Lactated Ringers [Ringers, Lactated] 1,000 ml IV ASDIRECTED 03/19/18 15:30 Norepinephrine [Levophed] 8 mg Dextrose 5% in Water 242 ml IV TITRATE 03/20/18 10:00 Magnesium Sulfate/Water [Magnesium Sulfate 2 GM in Water 50 ML] 2 gm Premix Bag 1 bag IV Q6H 03/20/18 17:00 BASIC METABOLIC PANEL,BMP [CHEM] Stat BLOOD GAS ARTERIAL [BG] Stat MAGNESIUM [CHEM] Stat 03/21/18 05:00 CXR [Chest 1V Frontal] [CR] DAILY BLOOD GAS ARTERIAL [BG] Timed CBC WITH AUTO DIFF [HEME] Timed COMPREHENSIVE METABOLIC PN,CMP [CHEM] Timed LACTIC ACID [CHEM] Timed MAGNESIUM [CHEM] Timed 03/22/18 05:00 CXR [Chest 1V Frontal] [CR] DAILY 03/23/18 05:00 CXR [Chest 1V Frontal] [CR] DAILY 03/24/18 05:00 CXR [Chest 1V Frontal] [CR] DAILY - Plan Plan:: ASSESSMENT AND PLAN SIGMOID COLON PERFORATION RESULTING IN ACUTE ABDOMEN AND SEPTIC SHOCK-status post exploratory laparotomy with partial sigmoid colon resection and creation of a colostomy. Remains critically ill with septic shock and respiratory compromise. Modestly improved over the past 24 hours -IV meropenem and Azactam -Post operative surgical care per Dr. Adams SEPTIC SHOCK-secondary to intestinal perforation, solid and liquid stool noted throughout the abdominal cavity at the time of surgery. Remains on IV pressors, continues to make some urine. Dose of vasopressin has been tapered moderately over the last 12 hours. -Antibiotic therapy as above -Ongoing IV fluids -Continue ongoing use of IV norepinephrine and vasopressin for support of blood pressure, continue to work on taper as able ACUTE HYPOXIC RESPIRATORY FAILURE-secondary to septic shock, colon perforation, recent surgery and underlying COPD -Continue mechanical ventilation until he is more hemodynamically stable [id number]-year smoking history -Nebulized albuterol as needed -Vigorous pulmonary toilet during the postoperative period ACUTE KIDNEY INJURY-secondary to septic shock and hypotension, continues to make small amount of urine, rise in creatinine seems to be leveling off -IV fluid resuscitation as above -Closely monitor urine output and renal function during the postoperative period HISTORY OF LUNG AND PROSTATE CARCINOMA-lung cancer felt to be stable, currently receiving active treatment for management of prostate carcinoma MAINTENANCE ISSUES -DVT prophylaxis; SCUDs -GI prophylaxis; Protonix 40 mg IV daily during postoperative period -Sorto catheter; will require during the postoperative period for close monitoring of urine output -Nutrition; nothing by mouth -Nicotine dependence; CODE STATUS-FULL CODE ADMISSION STATUS-patient will be admitted to inpatient status, expect at least a 2 night hospital stay for evaluation and management of problems as outlined above. At the time of this admission I do not reasonably expected evaluation and management of this problem will require more than a 96 hour hospital stay. DISPOSITION-anticipate discharge to home after the hospital stay. PRIMARY CARE PROVIDER-Emil Randall
--- NOTE | 2018-03-20 16:02 | PCM.SURGPN ---
- General Info Date of Service: 03/20/18 Date of Surgery/Procedure: 03/18/18 POD#: 2 Post-Op Diagnosis: Perforated sigmoid colon, H[place] IV Admission Diagnosis/Problem: Perforation of sigmoid colon Functional Status: Reports: Pain Controlled, Urinating (Barely adequate). Denies: Tolerating Diet, Ambulating, New Symptoms, Incentive Spirometry - Review of Systems General: Reports: Other (Intubated and sedated) - Patient Data Vitals - Most Recent: Last Vital Signs Temp 97.5 F 03/20/18 10:00 Pulse 102 H 03/20/18 15:00 Resp 19 03/20/18 15:00 BP 117/58 L 03/20/18 15:00 Pulse Ox 94 L 03/20/18 15:00 Weight - Most Recent: 153 lb 0.013 oz I&O - Last 24 Hours: Intake & Output 03/20/18 03/20/18 03/20/18 06:59 14:59 22:59 Intake Total 2329 Output Total 415 200 Balance 1914 -200 Lab Results Last 24 Hrs: Laboratory Results - last 24 hr 03/19/18 03/19/18 03/19/18 Range/Units 16:50 16:50 16:50 WBC 13.1 H (4.5-11.0) K/uL RBC 4.64 (4.30-5.90) M/uL Hgb 14.0 (12.0-15.0) g/dL Hct 43.8 (40.0-54.0) % MCV 94 (80-98) fL MCH 30 (27-31) pg MCHC 32 (32-36) % Plt Count 167 (150-400) K/uL Neut % (Auto) Lymph % (Auto) [place] % (Auto) Eos % (Auto) Baso % (Auto) Add Manual Diff Yes Neutrophils % (Manual) 85 H (36-66) % Band Neutrophils % 4 L (5-11) % Lymphocytes % (Manual) 9 L (24-44) % Monocytes % (Manual) 2 (2-6) % Metamyelocytes % % Puncture Site ABG pH (7.350-7.450) ABG pCO2 (35.0-42.0) mmHg ABG pO2 (75.0-100.0) mmHg ABG HCO3 (22.0-26.0) mmol/L ABG Total CO2 (23.0-27.0) mmol/L ABG O2 Saturation (95.0-98.0) % ABG O2 Content (15.0-23.0) %vol ABG Base Excess mm/L ABG Hemoglobin (13.5-18.0) g/dL ABG Oxyhemoglobin % ABG Carboxyhemoglobin (0.0-1.6) % ABG Methemoglobin % Craig Test O2 Delivery Device Oxygen Flow Rate L Sodium 138 L (140-148) mmol/L Potassium 5.5 H (3.6-5.2) mmol/L Chloride 107 (100-108) mmol/L Carbon Dioxide 20 L (21-32) mmol/L Anion Gap 16.5 H (5.0-14.0) mmol/L BUN 37 H (7-18) mg/dL Creatinine 2.3 H (0.8-1.3) mg/dL Est Cr Clr Drug Dosing 25.88 mL/min Estimated GFR (MDRD) 28 L (>60) Glucose 108 H (74-106) mg/dL Lactic Acid 4.0 H (0.4-2.0) mmol/L Calcium 8.6 (8.5-10.1) mg/dL Magnesium (1.8-2.4) mg/dL Total Bilirubin (0.2-1.0) mg/dL AST (15-37) U/L ALT (12-78) U/L Alkaline Phosphatase (46-116) U/L Total Protein (6.4-8.2) g/dL Albumin (3.4-5.0) g/dL Globulin (2.3-3.5) g/dL Albumin/Globulin Ratio (1.2-2.2) 03/19/18 03/20/18 03/20/18 Range/Units 17:00 05:00 05:00 WBC 16.5 H (4.5-11.0) K/uL RBC 4.34 (4.30-5.90) M/uL Hgb 13.4 (12.0-15.0) g/dL Hct 40.1 (40.0-54.0) % MCV 92 (80-98) fL MCH 31 (27-31) pg MCHC 33 (32-36) % Plt Count 139 L (150-400) K/uL Neut % (Auto) Adapted Physical Education Specialist Lymph % (Auto) Adapted Physical Education Specialist [place] % (Auto) Adapted Physical Education Specialist Eos % (Auto) Adapted Physical Education Specialist Baso % (Auto) Adapted Physical Education Specialist Add Manual Diff Yes Neutrophils % (Manual) 61 (36-66) % Band Neutrophils % 25 H (5-11) % Lymphocytes % (Manual) 7 L (24-44) % Monocytes % (Manual) 2 (2-6) % Metamyelocytes % 5 % Puncture Site A-line line ABG pH 7.308 L 7.416 (7.350-7.450) ABG pCO2 38.1 29.5 L (35.0-42.0) mmHg ABG pO2 85.3 70.1 L (75.0-100.0) mmHg ABG HCO3 18.5 L 18.6 L (22.0-26.0) mmol/L ABG Total CO2 16.7 L 16.4 L (23.0-27.0) mmol/L ABG O2 Saturation 96.2 94.6 L (95.0-98.0) % ABG O2 Content 18.8 17.6 (15.0-23.0) %vol ABG Base Excess -6.7 -4.4 mm/L ABG Hemoglobin 14.0 13.4 L (13.5-18.0) g/dL ABG Oxyhemoglobin 95.0 93.2 % ABG Carboxyhemoglobin 0.6 0.8 (0.0-1.6) % ABG Methemoglobin 0.6 0.7 % Craig Test A-line O2 Delivery Device Ventilator Ventilator Oxygen Flow Rate L Sodium (140-148) mmol/L Potassium (3.6-5.2) mmol/L Chloride (100-108) mmol/L Carbon Dioxide (21-32) mmol/L Anion Gap (5.0-14.0) mmol/L BUN (7-18) mg/dL Creatinine (0.8-1.3) mg/dL Est Cr Clr Drug Dosing mL/min Estimated GFR (MDRD) (>60) Glucose (74-106) mg/dL Lactic Acid (0.4-2.0) mmol/L Calcium (8.5-10.1) mg/dL Magnesium (1.8-2.4) mg/dL Total Bilirubin (0.2-1.0) mg/dL AST (15-37) U/L ALT (12-78) U/L Alkaline Phosphatase (46-116) U/L Total Protein (6.4-8.2) g/dL Albumin (3.4-5.0) g/dL Globulin (2.3-3.5) g/dL Albumin/Globulin Ratio (1.2-2.2) 03/20/18 03/20/18 Range/Units 05:00 05:00 WBC (4.5-11.0) K/uL RBC (4.30-5.90) M/uL Hgb (12.0-15.0) g/dL Hct (40.0-54.0) % MCV (80-98) fL MCH (27-31) pg MCHC (32-36) % Plt Count (150-400) K/uL Neut % (Auto) Lymph % (Auto) [place] % (Auto) Eos % (Auto) Baso % (Auto) Add Manual Diff Neutrophils % (Manual) (36-66) % Band Neutrophils % (5-11) % Lymphocytes % (Manual) (24-44) % Monocytes % (Manual) (2-6) % Metamyelocytes % % Puncture Site ABG pH (7.350-7.450) ABG pCO2 (35.0-42.0) mmHg ABG pO2 (75.0-100.0) mmHg ABG HCO3 (22.0-26.0) mmol/L ABG Total CO2 (23.0-27.0) mmol/L ABG O2 Saturation (95.0-98.0) % ABG O2 Content (15.0-23.0) %vol ABG Base Excess mm/L ABG Hemoglobin (13.5-18.0) g/dL ABG Oxyhemoglobin % ABG Carboxyhemoglobin (0.0-1.6) % ABG Methemoglobin % Craig Test O2 Delivery Device Oxygen Flow Rate L Sodium 136 L (140-148) mmol/L Potassium 5.6 H (3.6-5.2) mmol/L Chloride 104 (100-108) mmol/L Carbon Dioxide 20 L (21-32) mmol/L Anion Gap 17.6 H (5.0-14.0) mmol/L BUN 43 H (7-18) mg/dL Creatinine 2.5 H (0.8-1.3) mg/dL Est Cr Clr Drug Dosing 23.81 mL/min Estimated GFR (MDRD) 25 L (>60) Glucose 90 (74-106) mg/dL Lactic Acid 3.7 H (0.4-2.0) mmol/L Calcium 8.0 L (8.5-10.1) mg/dL Magnesium 1.5 L (1.8-2.4) mg/dL Total Bilirubin 0.4 D (0.2-1.0) mg/dL AST 221 H D (15-37) U/L ALT 90 H (12-78) U/L Alkaline Phosphatase 83 (46-116) U/L Total Protein 4.5 L (6.4-8.2) g/dL Albumin 1.4 L (3.4-5.0) g/dL Globulin 3.1 (2.3-3.5) g/dL Albumin/Globulin Ratio 0.5 L (1.2-2.2) Dante Results Last 24 Hrs: Microbiology 03/18/18 20:59 Gram Stain - Final Peritoneal Fluid Wound Culture - Preliminary Escherichia Coli Anaerobic Culture - Preliminary 03/18/18 18:55 Aerobic Blood Culture - Preliminary Blood - Venous - Lab Draw Anaerobic Blood Culture - Preliminary NO GROWTH AFTER 1 DAY 03/18/18 18:45 Aerobic Blood Culture - Preliminary Blood - Venous NO GROWTH AFTER 1 DAY Anaerobic Blood Culture - Preliminary NO GROWTH AFTER 1 DAY Med Orders - Current: Current Medications Propofol (Diprivan 100 Ml) 100 mls @ 2.082 mls/hr IV TITRATE [facility]; Protocol Last Titration: 03/20/18 11:48 Dose: 23 mcg/kg/min, 9.577 mls/hr Meropenem 1 gm/ Sodium (Chloride) 50 mls @ 100 mls/hr IV Q12H [facility] Last Admin: 03/20/18 08:04 Dose: 100 mls/hr Vasopressin 100 units/ (Dextrose/Water) 255 mls @ 1.53 mls/hr IV TITRATE [facility]; Protocol Last Titration: 03/20/18 12:00 Dose: 0.03 units/min, 4.59 mls/hr Aztreonam/Dextrose 1 gm/ (Premix) 50 mls @ 100 mls/hr IV Q8H [facility] Last Admin: 03/20/18 13:28 Dose: 100 mls/hr Lactated Ringer's (Ringers, Lactated) 1,000 mls @ 150 mls/hr IV ASDIRECTED [facility] Last Admin: 03/20/18 15:46 Dose: 150 mls/hr Norepinephrine Bitartrate 8 mg (/ Dextrose/Water) 250 mls @ 3.75 mls/hr IV TITRATE [facility]; Protocol Last Admin: 03/20/18 11:48 Dose: 12 mcg/min, 22.5 mls/hr Magnesium Sulfate 2 gm/ Premix 50 mls @ 25 mls/hr IV Q6H [facility] Stop: 03/20/18 17:59 Last Admin: 03/20/18 11:10 Dose: 25 mls/hr Pantoprazole Sodium (Protonix Iv) 40 mg IVPUSH DAILY [facility] Last Admin: 03/20/18 09:39 Dose: 40 mg Discontinued Medications Dexamethasone (Dexamethasone) Confirm Administered Dose 4 mg .ROUTE .STK-MED ONE Stop: 03/18/18 19:48 Epinephrine HCl (Adrenalin) Confirm Administered Dose 1 mg .ROUTE .STK-MED ONE Stop: 03/18/18 21:07 Fentanyl (Sublimaze) Confirm Administered Dose 250 mcg .ROUTE .STK-MED ONE Stop: 03/18/18 19:48 Glycopyrrolate (Robinul) Confirm Administered Dose 1 mg .ROUTE .STK-MED ONE Stop: 03/18/18 19:48 Heparin Sodium (Porcine) (Heparin Sodium) Confirm Administered Dose 5,000 units .ROUTE .STK-MED ONE Stop: 03/18/18 19:51 Hydromorphone HCl (Dilaudid) 0.5 mg IVPUSH ONETIME ONE Stop: 03/18/18 17:43 Last Admin: 03/18/18 17:47 Dose: 0.5 mg Hydromorphone HCl (Dilaudid) 1 mg IVPUSH ONETIME ONE Stop: 03/18/18 18:18 Last Admin: 03/18/18 18:27 Dose: 1 mg Sodium Chloride (Normal Saline) 1,000 mls @ 1,000 mls/hr IV ASDIRECTED [facility] Last Admin: 03/18/18 17:47 Dose: 1,000 mls/hr Sodium Chloride (Normal Saline) 1,000 mls @ 999 mls/hr IV ASDIRECTED [facility] Last Admin: 03/18/18 19:31 Dose: 999 mls/hr Meropenem 500 mg/ Sodium (Chloride) 50 mls @ 100 mls/hr IV ONETIME ONE Stop: 03/18/18 19:09 Last Admin: 03/18/18 19:01 Dose: 100 mls/hr Sodium Chloride (Normal Saline) Confirm Administered Dose 50 mls @ as directed .ROUTE .[facility] ONE Stop: 03/18/18 19:40 Last Admin: 03/18/18 20:19 Dose: Not Given Aztreonam 2 gm/ Sodium (Chloride) 50 mls @ 100 mls/hr IV ONETIME ONE Stop: 03/18/18 20:01 Last Admin: 03/18/18 20:44 Dose: 100 mls/hr Meropenem 500 mg/ Sodium (Chloride) 50 mls @ 100 mls/hr IV ONETIME ONE Stop: 03/18/18 20:00 Last Admin: 03/18/18 19:40 Dose: 100 mls/hr Sodium Chloride (Normal Saline) Confirm Administered Dose 250 mls @ as directed .ROUTE .[facility] ONE Stop: 03/18/18 19:59 Lactated Ringer's (Ringers, Lactated) Confirm Administered Dose 1,000 mls @ as directed .ROUTE .[facility] ONE Stop: 03/18/18 19:59 Sodium Chloride (Normal Saline) Confirm Administered Dose 500 [facility]ls @ [facility] Stop: 03/18/18 19:59 Norepinephrine Bitartrate 8 mg (/ Dextrose/Water) 258 mls @ 3.87 mls/hr IV TITRATE [facility]; Protocol Last Admin: 03/19/18 11:45 Dose: 12 mcg/min, 23.22 mls/hr Lactated Ringer's (Ringers, Lactated) Confirm Administered Dose 1,000 mls @ as directed .ROUTE .[facility] ONE Stop: 03/18/18 21:42 Aztreonam 1 gm/ Sodium (Chloride) 50 mls @ 100 mls/hr IV Q8H [facility] Last Admin: 03/19/18 05:29 Dose: 100 mls/hr Potassium Chloride/Dextrose/Sod Cl (D5 1/2 Ns W/ 20 Meq/L Kcl) 1,000 mls @ 150 mls/hr IV ASDIRECTED [facility] Last Admin: 03/18/18 23:11 Dose: 150 mls/hr Lactated Ringer's (Ringers, Lactated) 1,000 mls @ 500 mls/hr IV ASDIRECTED [facility] Last Admin: 03/19/18 01:23 Dose: 500 mls/hr Lactated Ringer's (Ringers, Lactated) 1,000 mls @ 500 mls/hr IV BOLUS [facility] Stop: 03/19/18 05:29 Last Admin: 03/19/18 04:02 Dose: 500 mls/hr Lactated Ringer's (Ringers, Lactated) 1,000 mls @ 500 mls/hr IV .BOLUS ONE Stop: 03/19/18 14:59 Last Admin: 03/19/18 14:27 Dose: 500 mls/hr Meropenem (Merrem) Confirm Administered Dose 500 mg .ROUTE .STK-MED ONE Stop: 03/18/18 19:40 Last Admin: 03/18/18 20:19 Dose: Not Given Neostigmine Methylsulfate (Neostigmine) Confirm Administered Dose 5 mg .ROUTE .STK-MED ONE Stop: 03/18/18 19:48 Ondansetron HCl (Zofran) 4 mg IVPUSH ONETIME ONE Stop: 03/18/18 18:18 Last Admin: 03/18/18 18:27 Dose: 4 mg Ondansetron HCl (Zofran) Confirm Administered Dose 4 mg .ROUTE .STK-MED ONE Stop: 03/18/18 19:48 Phenylephrine HCl (Isaías-Synephrine) Confirm Administered Dose 10 mg .ROUTE .STK- MED ONE Stop: 03/18/18 20:05 Propofol (Diprivan 20 Ml) Confirm Administered Dose 200 mg .ROUTE .STK-MED ONE Stop: 03/18/18 19:48 Rocuronium [place] (Zemuron) Confirm Administered Dose 50 mg .ROUTE .STK-MED ONE Stop: 03/18/18 19:48 Succinylcholine Chloride (Quelicin) Confirm Administered Dose 200 mg .ROUTE .STK -MED ONE Stop: 03/18/18 19:48 - Exam Wound/Incisions: Drainage General: Sedated Lungs: Clear to Auscultation Cardiovascular: Regular Rate GI/Abdominal Exam: Soft, Non-Tender, No Organomegaly, No Distention. No: Normal Bowel Sounds Extremities: Pedal Edema Skin: Warm, Dry, Intact Neurological: Other (Intubated and sedated) Psy/Mental Status: Other (Intubated and sedated) - Problem List & Annotations (1) Perforation of sigmoid colon SNOMED Code(s): 881585038 Code(s): K63.1 - PERFORATION OF INTESTINE (NONTRAUMATIC) Status: Acute Current Visit: Yes - Problem List Review Problem List Initiated/Reviewed/Updated: Yes - My Orders Last 24 Hours: Active Orders 24 hr Category Date Time Status CXR [Chest 1V Frontal] [CR] DAILY Exams 03/21/18 05:00 Ordered CXR [Chest 1V Frontal] [CR] DAILY Exams 03/22/18 05:00 Ordered CXR [Chest 1V Frontal] [CR] DAILY Exams 03/23/18 05:00 Ordered CXR [Chest 1V Frontal] [CR] DAILY Exams 03/24/18 05:00 Ordered BASIC METABOLIC PANEL,BMP [CHEM] Stat Lab 03/20/18 17:00 Ordered BLOOD GAS ARTERIAL [BG] Stat Lab 03/20/18 17:00 Ordered BLOOD GAS ARTERIAL [BG] Timed Lab 03/21/18 05:00 Ordered CBC WITH AUTO DIFF [HEME] Timed Lab 03/21/18 05:00 Ordered COMPREHENSIVE METABOLIC PN,CMP [CHEM] Timed Lab 03/21/18 05:00 Ordered LACTIC ACID [CHEM] Timed Lab 03/21/18 05:00 Ordered MAGNESIUM [CHEM] Stat Lab 03/20/18 17:00 Ordered MAGNESIUM [CHEM] Timed Lab 03/21/18 05:00 Ordered Lactated Ringers [Ringers, Lactated] 1,000 ml Med 03/19/18 15:00 Active IV ASDIRECTED Magnesium Sulfate/Water [Magnesium Sulfate 2 GM in Med 03/20/18 10:00 Active Water 50 ML] 2 gm Premix Bag 1 bag IV Q6H Norepinephrine [Levophed] 8 mg Med 03/19/18 15:30 Active Dextrose 5% in Water 242 ml IV TITRATE Medication Orders Propofol (Diprivan 100 Ml) 100 mls @ 2.082 mls/hr IV TITRATE [facility]; Protocol Last Titration: 03/20/18 11:48 Dose: 23 mcg/kg/min, 9.577 mls/hr Admin: 03/20/18 09:35 Dose: 20 mcg/kg/min, 8.328 mls/hr Titration: 03/20/18 09:35 Dose: 20 mcg/kg/min, 8.328 mls/hr Admin: 03/19/18 22:55 Dose: 20 mcg/kg/min, 8.328 mls/hr Titration: 03/19/18 20:57 Dose: 20 mcg/kg/min, 8.328 mls/hr Admin: 03/19/18 08:56 Dose: 20 mcg/kg/min, 8.328 mls/hr Titration: 03/19/18 08:56 Dose: 25 mcg/kg/min, 10.41 mls/hr Titration: 03/19/18 06:13 Dose: 25 mcg/kg/min, 10.41 mls/hr Titration: 03/19/18 00:26 Dose: 20 mcg/kg/min, 8.328 mls/hr Titration: 03/18/18 23:29 Dose: 10 mcg/kg/min, 4.164 mls/hr Titration: 03/18/18 23:18 Dose: 15 mcg/kg/min, 6.246 mls/hr Admin: 03/18/18 22:49 Dose: 5 mcg/kg/min, 2.082 mls/hr Meropenem 1 gm/ Sodium (Chloride) 50 mls @ 100 mls/hr IV Q12H [facility] Last Admin: 03/20/18 08:04 Dose: 100 mls/hr Admin: 03/19/18 20:25 Dose: 100 mls/hr Admin: 03/19/18 08:12 Dose: 100 mls/hr Vasopressin 100 units/ (Dextrose/Water) 255 mls @ 1.53 mls/hr IV TITRATE [facility]; Protocol Last Titration: 03/20/18 12:00 Dose: 0.03 units/min, 4.59 mls/hr Titration: 03/20/18 10:05 Dose: 0.04 units/min, 6.12 mls/hr Titration: 03/20/18 09:03 Dose: 0.05 units/min, 7.65 mls/hr Titration: 03/20/18 08:03 Dose: 0.06 units/min, 9.18 mls/hr Admin: 03/20/18 00:27 Dose: 0.07 units/min, 10.71 mls/hr Titration: 03/20/18 00:27 Dose: 0.07 units/min, 10.71 mls/hr Titration: 03/20/18 00:21 Dose: 0.07 units/min, 10.71 mls/hr Titration: 03/19/18 23:41 Dose: 0.06 units/min, 9.18 mls/hr Titration: 03/19/18 21:00 Dose: 0.07 units/min, 10.71 mls/hr Titration: 03/19/18 05:29 Dose: 0.08 units/min, 12.24 mls/hr Titration: 03/19/18 05:14 Dose: 0.075 units/min, 11.47 mls/hr Titration: 03/19/18 04:54 Dose: 0.07 units/min, 10.71 mls/hr Titration: 03/19/18 04:36 Dose: 0.065 units/min, 9.94 mls/hr Titration: 03/19/18 04:25 Dose: 0.06 units/min, 9.18 mls/hr Titration: 03/19/18 04:14 Dose: 0.055 units/min, 8.41 mls/hr Titration: 03/19/18 04:00 Dose: 0.05 units/min, 7.65 mls/hr Titration: 03/19/18 03:33 Dose: 0.045 units/min, 6.88 mls/hr Titration: 03/19/18 03:10 Dose: 0.04 units/min, 6.12 mls/hr Titration: 03/19/18 02:55 Dose: 0.035 units/min, 5.35 mls/hr Titration: 03/19/18 02:39 Dose: 0.03 units/min, 4.59 mls/hr Titration: 03/19/18 02:19 Dose: 0.025 units/min, 3.82 mls/hr Titration: 03/19/18 02:06 Dose: 0.02 units/min, 3.06 mls/hr Titration: 03/19/18 01:52 Dose: 0.015 units/min, 2.29 mls/hr Admin: 03/19/18 01:20 Dose: 0.01 units/min, 1.53 mls/hr Aztreonam/Dextrose 1 gm/ (Premix) 50 mls @ 100 mls/hr IV Q8H [facility] Last Admin: 03/20/18 13:28 Dose: 100 mls/hr Admin: 03/20/18 05:34 Dose: 100 mls/hr Admin: 03/19/18 21:01 Dose: 100 mls/hr Admin: 03/19/18 14:26 Dose: 100 mls/hr Lactated Ringer's (Ringers, Lactated) 1,000 mls @ 150 mls/hr IV ASDIRECTED [facility] Last Admin: 03/20/18 15:46 Dose: 150 mls/hr Infusion: 03/20/18 15:41 Dose: 150 mls/hr Admin: 03/20/18 09:00 Dose: 150 mls/hr Infusion: 03/20/18 08:57 Dose: 150 mls/hr Admin: 03/20/18 02:16 Dose: 150 mls/hr Infusion: 03/20/18 02:11 Dose: 150 mls/hr Admin: 03/19/18 19:30 Dose: 150 mls/hr Infusion: 03/19/18 19:30 Dose: 150 mls/hr Admin: 03/19/18 14:27 Dose: 150 mls/hr Norepinephrine Bitartrate 8 mg (/ Dextrose/Water) 250 mls @ 3.75 mls/hr IV TITRATE [facility]; Protocol Last Admin: 03/20/18 11:48 Dose: 12 mcg/min, 22.5 mls/hr Titration: 03/20/18 10:45 Dose: 12 mcg/min, 22.5 mls/hr Admin: 03/19/18 23:38 Dose: 12 mcg/min, 22.5 mls/hr Magnesium Sulfate 2 gm/ Premix 50 mls @ 25 mls/hr IV Q6H [facility] Stop: 03/20/18 17:59 Last Admin: 03/20/18 11:10 Dose: 25 mls/hr Pantoprazole Sodium (Protonix Iv) 40 mg IVPUSH DAILY [facility] Last Admin: 03/20/18 09:39 Dose: 40 mg Admin: 03/19/18 10:47 Dose: 40 mg - Assessment Assessment (Free Text/Narrative):: FiO2 is down to 35%. Still requiring pressors but less. - Plan Plan (Free Text/Narrative):: Follow. Possibly loosely approximate his incision tomorrow.
[2018-03-21] MEDS: Norepinephrine 8 MG in Dextrose 5% in Water 242 ML IV SCH ×4 (00:35→11:55)
[2018-03-21] MEDS: Aztreonam/Dextrose-Water 1 GM in Premix Bag 1 BAG IV SCH ×3 (04:59→20:38)
[2018-03-21] MEDS: Lactated Ringers 1,000 ML IV SCH ×2 (05:12→11:53)
[2018-03-21] MEDS ORDERED: Vancomycin 1 GM SDV IV SCH (09:00)
--- NOTE | 2018-03-21 09:25 | PCM.PN ---
- General Info Date of Service: 03/21/18 Subjective Update: Mr. Silva is shown further modest improvement over the last 24 hours. There has been mild improvement in renal function and he continues to make low to moderate amount of urine. Blood pressure somewhat better in nursing staff continues to work on tapering down on pressors. Remains sedated and is unable to provide information concerning symptoms or review of systems. Respiratory status stable with current ventilator settings. - Patient Data Vitals - Most Recent: Last Vital Signs Temp 99.8 F 03/21/18 01:00 Pulse 91 03/20/18 18:00 Resp 18 03/21/18 06:00 BP 118/54 L 03/21/18 06:00 Pulse Ox 94 L 03/21/18 06:00 Weight - Most Recent: 153 lb 0.013 oz I&O - Last 24 Hours: Intake & Output 03/20/18 03/21/18 03/21/18 22:59 06:59 14:59 Intake Total 2376 2255 Output Total 875 385 Balance 1501 1870 Lab Results Last 24 Hours: Laboratory Results - last 24 hr 03/20/18 03/20/18 03/21/18 Range/Units 17:00 17:00 06:08 WBC 27.4 H (4.5-11.0) K/uL RBC 3.48 L (4.30-5.90) M/uL Hgb 10.7 L D (12.0-15.0) g/dL Hct 31.3 L (40.0-54.0) % MCV 90 (80-98) fL MCH 31 (27-31) pg MCHC 34 (32-36) % Plt Count 101 L (150-400) K/uL Add Manual Diff Yes Neutrophils % (Manual) 52 (36-66) % Band Neutrophils % 41 H (5-11) % Lymphocytes % (Manual) 4 L (24-44) % Monocytes % (Manual) 3 (2-6) % Puncture Site A-line ABG pH 7.492 H (7.350-7.450) ABG pCO2 26.7 L (35.0-42.0) mmHg ABG pO2 84.5 (75.0-100.0) mmHg ABG HCO3 20.2 L (22.0-26.0) mmol/L ABG Total CO2 18.0 L (23.0-27.0) mmol/L ABG O2 Saturation 97.0 (95.0-98.0) % ABG O2 Content 15.9 (15.0-23.0) %vol ABG Base Excess -1.7 mm/L ABG Hemoglobin 11.8 L (13.5-18.0) g/dL ABG Oxyhemoglobin 95.0 % ABG Carboxyhemoglobin 1.3 (0.0-1.6) % ABG Methemoglobin 0.8 % Craig Test Not performed O2 Delivery Device Ventilator Oxygen Flow Rate L Sodium 135 L (140-148) mmol/L Potassium 4.8 (3.6-5.2) mmol/L Chloride 103 (100-108) mmol/L Carbon Dioxide 23 (21-32) mmol/L Anion Gap 13.8 (5.0-14.0) mmol/L BUN 48 H (7-18) mg/dL Creatinine 2.5 H (0.8-1.3) mg/dL Est Cr Clr Drug Dosing 23.81 mL/min Estimated GFR (MDRD) 25 L (>60) Glucose 91 (74-106) mg/dL Lactic Acid (0.7-2.1) mmol/L Calcium 7.6 L (8.5-10.1) mg/dL Magnesium 2.0 (1.8-2.4) mg/dL Total Bilirubin (0.2-1.0) mg/dL AST (15-37) U/L ALT (12-78) U/L Alkaline Phosphatase (46-116) U/L Total Protein (6.4-8.2) g/dL Albumin (3.4-5.0) g/dL Globulin (2.3-3.5) g/dL Albumin/Globulin Ratio (1.2-2.2) 03/21/18 03/21/18 03/21/18 Range/Units 06:08 06:08 06:08 WBC (4.5-11.0) K/uL RBC (4.30-5.90) M/uL Hgb (12.0-15.0) g/dL Hct (40.0-54.0) % MCV (80-98) fL MCH (27-31) pg MCHC (32-36) % Plt Count (150-400) K/uL Add Manual Diff Neutrophils % (Manual) (36-66) % Band Neutrophils % (5-11) % Lymphocytes % (Manual) (24-44) % Monocytes % (Manual) (2-6) % Puncture Site A-line ABG pH 7.494 H (7.350-7.450) ABG pCO2 27.2 L (35.0-42.0) mmHg ABG pO2 65.8 L (75.0-100.0) mmHg ABG HCO3 20.7 L (22.0-26.0) mmol/L ABG Total CO2 18.8 L (23.0-27.0) mmol/L ABG O2 Saturation 93.3 L (95.0-98.0) % ABG O2 Content 13.7 L (15.0-23.0) %vol ABG Base Excess -1.3 mm/L ABG Hemoglobin 10.6 L (13.5-18.0) g/dL ABG Oxyhemoglobin 91.3 % ABG Carboxyhemoglobin 1.4 (0.0-1.6) % ABG Methemoglobin 0.7 % Craig Test A-line O2 Delivery Device Ventilator Oxygen Flow Rate L Sodium 134 L (140-148) mmol/L Potassium 4.3 (3.6-5.2) mmol/L Chloride 101 (100-108) mmol/L Carbon Dioxide 22 (21-32) mmol/L Anion Gap 15.3 H (5.0-14.0) mmol/L BUN 46 H (7-18) mg/dL Creatinine 2.2 H (0.8-1.3) mg/dL Est Cr Clr Drug Dosing 27.06 mL/min Estimated GFR (MDRD) 29 L (>60) Glucose 109 H (74-106) mg/dL Lactic Acid 1.3 (0.7-2.1) mmol/L Calcium 7.5 L (8.5-10.1) mg/dL Magnesium 2.3 (1.8-2.4) mg/dL Total Bilirubin 0.4 (0.2-1.0) mg/dL AST 180 H (15-37) U/L ALT 63 (12-78) U/L Alkaline Phosphatase 91 (46-116) U/L Total Protein 4.2 L (6.4-8.2) g/dL Albumin 1.1 L (3.4-5.0) g/dL Globulin 3.1 (2.3-3.5) g/dL Albumin/Globulin Ratio 0.4 L (1.2-2.2) Dante Results Last 24 Hours: Microbiology 03/18/18 20:59 Gram Stain - Final Peritoneal Fluid Wound Culture - Preliminary Escherichia Coli Anaerobic Culture - Preliminary NO GROWTH AFTER 2 DAYS 03/18/18 18:55 Aerobic Blood Culture - Preliminary Blood - Venous - Lab Draw Escherichia Coli Anaerobic Blood Culture - Preliminary NO GROWTH AFTER 2 DAYS 03/18/18 18:45 Aerobic Blood Culture - Preliminary Blood - Venous NO GROWTH AFTER 2 DAYS Anaerobic Blood Culture - Preliminary NO GROWTH AFTER 2 DAYS Med Orders - Current: Current Medications Propofol (Diprivan 100 Ml) 100 mls @ 2.082 mls/hr IV TITRATE [facility]; Protocol Last Admin: 03/21/18 04:59 Dose: 23 mcg/kg/min, 9.577 mls/hr Meropenem 1 gm/ Sodium (Chloride) 50 mls @ 100 mls/hr IV Q12H [facility] Last Admin: 03/21/18 09:04 Dose: 100 mls/hr Vasopressin 100 units/ (Dextrose/Water) 255 mls @ 1.53 mls/hr IV TITRATE [facility]; Protocol Last Titration: 03/21/18 09:08 Dose: 0.02 units/min, 3.06 mls/hr Aztreonam/Dextrose 1 gm/ (Premix) 50 mls @ 100 mls/hr IV Q8H [facility] Last Admin: 03/21/18 04:59 Dose: 100 mls/hr Lactated Ringer's (Ringers, Lactated) 1,000 mls @ 150 mls/hr IV ASDIRECTED [facility] Last Admin: 03/21/18 05:12 Dose: 150 mls/hr Norepinephrine Bitartrate 8 mg (/ Dextrose/Water) 250 mls @ 3.75 mls/hr IV TITRATE [facility]; Protocol Last Admin: 03/21/18 00:35 Dose: 12 mcg/min, 22.5 mls/hr Vancomycin HCl 1.25 gm/ Sodium (Chloride) 250 mls @ 170 mls/hr IV Q24H [facility] Nystatin (Mycostatin) 5 ml PO QID [facility] Pantoprazole Sodium (Protonix Iv) 40 mg IVPUSH DAILY [facility] Last Admin: 03/20/18 09:39 Dose: 40 mg Vancomycin HCl (Vancomycin) 1 gm IV .PHARMACY TO DOSE [facility] Stop: 03/21/18 16:00 Discontinued Medications Dexamethasone (Dexamethasone) Confirm Administered Dose 4 mg .ROUTE .STK-MED ONE Stop: 03/18/18 19:48 Epinephrine HCl (Adrenalin) Confirm Administered Dose 1 mg .ROUTE .STK-MED ONE Stop: 03/18/18 21:07 Fentanyl (Sublimaze) Confirm Administered Dose 250 mcg .ROUTE .STK-MED ONE Stop: 03/18/18 19:48 Glycopyrrolate (Robinul) Confirm Administered Dose 1 mg .ROUTE .K-MED ONE Stop: 03/18/18 19:48 Heparin Sodium (Porcine) (Heparin Sodium) Confirm Administered Dose 5,000 units .ROUTE .K-MED ONE Stop: 03/18/18 19:51 Hydromorphone HCl (Dilaudid) 0.5 mg IVPUSH ONETIME ONE Stop: 03/18/18 17:43 Last Admin: 03/18/18 17:47 Dose: 0.5 mg Hydromorphone HCl (Dilaudid) 1 mg IVPUSH ONETIME ONE Stop: 03/18/18 18:18 Last Admin: 03/18/18 18:27 Dose: 1 mg Sodium Chloride (Normal Saline) 1,000 mls @ [facility] Admin: 03/18/18 17:47 Dose: 1,000 mls/hr Sodium Chloride (Normal Saline) 1,000 mls @ 999 [facility]ls[facility] Last Admin: 03/18/18 19:31 Dose: 999 mls/hr Meropenem 500 mg/ Sodium (Chloride) 50 mls @ 100 mls/hr IV ONETIME ONE Stop: 03/18/18 19:09 Last Admin: 03/18/18 19:01 Dose: 100 mls/hr Sodium Chloride (Normal Saline) Confirm Administered Dose 50 mls @ as directed .ROUTE .STK-MED ONE Stop: 03/18/18 19:40 Last Admin: 03/18/18 20:19 Dose: Not Given Aztreonam 2 gm/ Sodium (Chloride) 50 mls @ 100 mls/hr IV ONETIME ONE Stop: 03/18/18 20:01 Last Admin: 03/18/18 20:44 Dose: 100 mls/hr Meropenem 500 mg/ Sodium (Chloride) 50 mls @ 100 mls/hr IV ONETIME ONE Stop: 03/18/18 20:00 Last Admin: 03/18/18 19:40 Dose: 100 mls/hr Sodium Chloride (Normal Saline) Confirm Administered Dose 250 mls @ as directed .ROUTE .STK-MED ONE Stop: 03/18/18 19:59 Lactated Ringer's (Ringers, Lactated) Confirm Administered Dose 1,000 mls @ as directed .ROUTE .STK-MED ONE Stop: 03/18/18 19:59 Sodium Chloride (Normal Saline) Confirm Administered Dose 500 mls @ as directed .ROUTE .STK-MED ONE Stop: 03/18/18 19:59 Norepinephrine Bitartrate 8 mg (/ Dextrose/Water) 258 mls @ 3.87 mls/hr IV TITRATE [facility]; Protocol Last Admin: 03/19/18 11:45 Dose: 12 mcg/min, 23.22 mls/hr Lactated Ringer's (Ringers, Lactated) Confirm Administered Dose 1,000 mls @ as directed .ROUTE .STK-MED ONE Stop: 03/18/18 21:42 Aztreonam 1 gm/ Sodium (Chloride) 50 mls @ 100 mls/hr IV Q8H [facility] Last Admin: 03/19/18 05:29 Dose: 100 mls/hr Potassium Chloride/Dextrose/Sod Cl (D5 1/2 Ns W/ 20 Meq/L Kcl) 1,000 mls @ 150 mls/hr IV ASDIRECTED [facility] Last Admin: 03/18/18 23:11 Dose: 150 mls/hr Lactated Ringer's (Ringers, Lactated) 1,000 mls @ 500 mls/hr IV ASDIRECTED [facility] Last Admin: 03/19/18 01:23 Dose: 500 mls/hr Lactated Ringer's (Ringers, Lactated) 1,000 mls @ 500 mls/hr IV BOLUS [facility] Stop: 03/19/18 05:29 Last Admin: 03/19/18 04:02 Dose: 500 mls/hr Lactated Ringer's (Ringers, Lactated) 1,000 mls @ 500 mls/hr IV .BOLUS ONE Stop: 03/19/18 14:59 Last Admin: 03/19/18 14:27 Dose: 500 mls/hr Magnesium Sulfate 2 gm/ Premix 50 mls @ 25 mls/hr IV Q6H [facility] Stop: 03/20/18 17:59 Last Admin: 03/20/18 16:30 Dose: 25 mls/hr Meropenem (Merrem) Confirm Administered Dose 500 mg .ROUTE .STK-MED ONE Stop: 03/18/18 19:40 Last Admin: 03/18/18 20:19 Dose: Not Given Neostigmine Methylsulfate (Neostigmine) Confirm Administered Dose 5 mg .ROUTE .STK-MED ONE Stop: 03/18/18 19:48 Ondansetron HCl (Zofran) 4 mg IVPUSH ONETIME ONE Stop: 03/18/18 18:18 Last Admin: 03/18/18 18:27 Dose: 4 mg Ondansetron HCl (Zofran) Confirm Administered Dose 4 mg .ROUTE .STK-MED ONE Stop: 03/18/18 19:48 Phenylephrine HCl (Isaías-Synephrine) Confirm Administered Dose 10 mg .ROUTE .STK- MED ONE Stop: 03/18/18 20:05 Propofol (Diprivan 20 Ml) Confirm Administered Dose 200 mg .ROUTE .STK-MED ONE Stop: 03/18/18 19:48 Rocuronium [place] (Zemuron) Confirm Administered Dose 50 mg .ROUTE .STK-MED ONE Stop: 03/18/18 19:48 Succinylcholine Chloride (Quelicin) Confirm Administered Dose 200 mg .ROUTE .STK -MED ONE Stop: 03/18/18 19:48 - Exam Quality Assessment: Supplemental Oxygen (Ventilator), Central Line/PICC, Urine Catheter, DVT Prophylaxis General: Sedated, Lethargic Lungs: Clear to Auscultation, Normal Respiratory Effort, Decreased Breath Sounds. No: Rales, Rhonchi, Wheezing Cardiovascular: Regular Rate, Regular Rhythm, No Murmurs GI/Abdominal Exam: Soft, No Organomegaly, No Distention Extremities: Non-Tender, Pedal Edema - Problem List Review Problem List Initiated/Reviewed/Updated: Yes - My Orders Last 24 Hours: My Active Orders 03/21/18 05:00 CXR [Chest 1V Frontal] [CR] DAILY 03/21/18 09:00 Vancomycin 1 gm IV .PHARMACY TO DOSE 03/21/18 10:00 Nystatin [Mycostatin] 5 ml PO QID Vancomycin 1.25 gm Sodium Chloride 0.9% [Normal Saline] 250 ml IV Q24H 03/21/18 17:00 BASIC METABOLIC PANEL,BMP [CHEM] Stat BLOOD GAS ARTERIAL [BG] Stat 03/22/18 05:00 CXR [Chest 1V Frontal] [CR] DAILY BLOOD GAS ARTERIAL [BG] Timed CBC WITH AUTO DIFF [HEME] Timed COMPREHENSIVE METABOLIC PN,CMP [CHEM] Timed MAGNESIUM [CHEM] Timed 03/23/18 05:00 CXR [Chest 1V Frontal] [CR] DAILY 03/24/18 05:00 CXR [Chest 1V Frontal] [CR] DAILY - Plan Plan:: ASSESSMENT AND PLAN SIGMOID COLON PERFORATION RESULTING IN ACUTE ABDOMEN AND SEPTIC SHOCK-status post exploratory laparotomy with partial sigmoid colon resection and creation of a colostomy. Remains critically ill with septic shock and respiratory compromise. Increased white blood cell count with low-grade temperature elevation -Add vancomycin IV to current antibiotic regimen -IV meropenem and Azactam -Post operative surgical care per Dr. Adams -Possible delayed primary closure today SEPTIC SHOCK-secondary to intestinal perforation, solid and liquid stool noted throughout the abdominal cavity at the time of surgery. Remains on IV pressors, continues to make some urine. Dose of vasopressin has been tapered moderately over the last 36 hours. Remains on high-dose norepinephrine. Low-grade temperature elevation and further increase in white blood cell count 27,000 -Antibiotic therapy as above -Ongoing IV fluids -Continue ongoing use of IV norepinephrine and vasopressin for support of blood pressure, continue to work on taper as able ACUTE HYPOXIC RESPIRATORY FAILURE-secondary to septic shock, colon perforation, recent surgery and underlying COPD -Continue mechanical ventilation until he is more hemodynamically stable [id number] smoking history -Nebulized albuterol as needed -Vigorous pulmonary toilet during the postoperative period ACUTE KIDNEY INJURY-improvement in renal function with mild decrease in creatinine from peak -IV fluid resuscitation as above -Closely monitor urine output and renal function during the postoperative period HISTORY OF LUNG AND PROSTATE CARCINOMA-lung cancer felt to be stable, currently receiving active treatment for management of prostate carcinoma MAINTENANCE ISSUES -DVT prophylaxis; SCUDs -GI prophylaxis; Protonix 40 mg IV daily during postoperative period -Sorto catheter; will require during the postoperative period for close monitoring of urine output -Nutrition; nothing by mouth -Nicotine dependence; CODE STATUS-FULL CODE ADMISSION STATUS-patient will be admitted to inpatient status, expect at least a 2 night hospital stay for evaluation and management of problems as outlined above. At the time of this admission I do not reasonably expected evaluation and management of this problem will require more than a 96 hour hospital stay. DISPOSITION-anticipate discharge to home after the hospital stay. PRIMARY CARE PROVIDER-Emil Randall
[2018-03-21] MEDS: Pantoprazole 40 MG Vial IVPUSH SCH (10:06)
[2018-03-21] MEDS: Nystatin Susp 100,000 Unit/ML 5 ML UD Cup PO SCH ×3 (10:06→22:20)
[2018-03-21] MEDS: Vasopressin 40 UNITS in Dextrose 5% in Water 98 ML IV SCH ×2 (13:11)
--- NOTE | 2018-03-21 14:07 | PCM.SURGPN ---
- General Info Date of Service: 03/21/18 Date of Surgery/Procedure: 03/18/18 POD#: 3 Post-Op Diagnosis: Sigmoid perforation, [facility] IV Admission Diagnosis/Problem: Perforation of sigmoid colon Functional Status: Reports: Urinating (Barely adequate ). Denies: Tolerating Diet, Ambulating - Patient Data Vitals - Most Recent: Last Vital Signs Temp 97.9 F 03/21/18 13:00 Pulse 108 H 03/21/18 13:00 Resp 16 03/21/18 13:00 BP 111/53 L 03/21/18 13:00 Pulse Ox 98 03/21/18 13:00 Weight - Most Recent: 153 lb 0.013 oz I&O - Last 24 Hours: Intake & Output 03/20/18 03/21/18 03/21/18 22:59 06:59 14:59 Intake Total 2376 2255 Output Total 875 385 585 Balance 1501 1870 -585 Lab Results Last 24 Hrs: Laboratory Results - last 24 hr 03/20/18 03/20/18 03/21/18 Range/Units 17:00 17:00 06:08 WBC 27.4 H (4.5-11.0) K/uL RBC 3.48 L (4.30-5.90) M/uL Hgb 10.7 L D (12.0-15.0) g/dL Hct 31.3 L (40.0-54.0) % MCV 90 (80-98) fL MCH 31 (27-31) pg MCHC 34 (32-36) % Plt Count 101 L (150-400) K/uL Add Manual Diff Yes Neutrophils % (Manual) 52 (36-66) % Band Neutrophils % 41 H (5-11) % Lymphocytes % (Manual) 4 L (24-44) % Monocytes % (Manual) 3 (2-6) % Puncture Site A-line ABG pH 7.492 H (7.350-7.450) ABG pCO2 26.7 L (35.0-42.0) mmHg ABG pO2 84.5 (75.0-100.0) mmHg ABG HCO3 20.2 L (22.0-26.0) mmol/L ABG Total CO2 18.0 L (23.0-27.0) mmol/L ABG O2 Saturation 97.0 (95.0-98.0) % ABG O2 Content 15.9 (15.0-23.0) %vol ABG Base Excess -1.7 mm/L ABG Hemoglobin 11.8 L (13.5-18.0) g/dL ABG Oxyhemoglobin 95.0 % ABG Carboxyhemoglobin 1.3 (0.0-1.6) % ABG Methemoglobin 0.8 % Craig Test Not performed O2 Delivery Device Ventilator Oxygen Flow Rate L Sodium 135 L (140-148) mmol/L Potassium 4.8 (3.6-5.2) mmol/L Chloride 103 (100-108) mmol/L Carbon Dioxide 23 (21-32) mmol/L Anion Gap 13.8 (5.0-14.0) mmol/L BUN 48 H (7-18) mg/dL Creatinine 2.5 H (0.8-1.3) mg/dL Est Cr Clr Drug Dosing 23.81 mL/min Estimated GFR (MDRD) 25 L (>60) Glucose 91 (74-106) mg/dL Lactic Acid (0.7-2.1) mmol/L Calcium 7.6 L (8.5-10.1) mg/dL Magnesium 2.0 (1.8-2.4) mg/dL Total Bilirubin (0.2-1.0) mg/dL AST (15-37) U/L ALT (12-78) U/L Alkaline Phosphatase (46-116) U/L Total Protein (6.4-8.2) g/dL Albumin (3.4-5.0) g/dL Globulin (2.3-3.5) g/dL Albumin/Globulin Ratio (1.2-2.2) 03/21/18 03/21/18 03/21/18 Range/Units 06:08 06:08 06:08 WBC (4.5-11.0) K/uL RBC (4.30-5.90) M/uL Hgb (12.0-15.0) g/dL Hct (40.0-54.0) % MCV (80-98) fL MCH (27-31) pg MCHC (32-36) % Plt Count (150-400) K/uL Add Manual Diff Neutrophils % (Manual) (36-66) % Band Neutrophils % (5-11) % Lymphocytes % (Manual) (24-44) % Monocytes % (Manual) (2-6) % Puncture Site A-line ABG pH 7.494 H (7.350-7.450) ABG pCO2 27.2 L (35.0-42.0) mmHg ABG pO2 65.8 L (75.0-100.0) mmHg ABG HCO3 20.7 L (22.0-26.0) mmol/L ABG Total CO2 18.8 L (23.0-27.0) mmol/L ABG O2 Saturation 93.3 L (95.0-98.0) % ABG O2 Content 13.7 L (15.0-23.0) %vol ABG Base Excess -1.3 mm/L ABG Hemoglobin 10.6 L (13.5-18.0) g/dL ABG Oxyhemoglobin 91.3 % ABG Carboxyhemoglobin 1.4 (0.0-1.6) % ABG Methemoglobin 0.7 % Craig Test A-line O2 Delivery Device Ventilator Oxygen Flow Rate L Sodium 134 L (140-148) mmol/L Potassium 4.3 (3.6-5.2) mmol/L Chloride 101 (100-108) mmol/L Carbon Dioxide 22 (21-32) mmol/L Anion Gap 15.3 H (5.0-14.0) mmol/L BUN 46 H (7-18) mg/dL Creatinine 2.2 H (0.8-1.3) mg/dL Est Cr Clr Drug Dosing 27.06 mL/min Estimated GFR (MDRD) 29 L (>60) Glucose 109 H (74-106) mg/dL Lactic Acid 1.3 (0.7-2.1) mmol/L Calcium 7.5 L (8.5-10.1) mg/dL Magnesium 2.3 (1.8-2.4) mg/dL Total Bilirubin 0.4 (0.2-1.0) mg/dL AST 180 H (15-37) U/L ALT 63 (12-78) U/L Alkaline Phosphatase 91 (46-116) U/L Total Protein 4.2 L (6.4-8.2) g/dL Albumin 1.1 L (3.4-5.0) g/dL Globulin 3.1 (2.3-3.5) g/dL Albumin/Globulin Ratio 0.4 L (1.2-2.2) Dante Results Last 24 Hrs: Microbiology 03/18/18 20:59 Gram Stain - Final Peritoneal Fluid Wound Culture - Preliminary Escherichia Coli Anaerobic Culture - Preliminary NO GROWTH AFTER 2 DAYS 03/18/18 18:55 Aerobic Blood Culture - Preliminary Blood - Venous - Lab Draw Escherichia Coli Anaerobic Blood Culture - Preliminary NO GROWTH AFTER 2 DAYS 03/18/18 18:45 Aerobic Blood Culture - Preliminary Blood - Venous NO GROWTH AFTER 2 DAYS Anaerobic Blood Culture - Preliminary NO GROWTH AFTER 2 DAYS Med Orders - Current: Current Medications Propofol (Diprivan 100 Ml) 100 mls @ 2.082 mls/hr IV TITRATE [facility]; Protocol Last Admin: 03/21/18 13:55 Dose: 23 mcg/kg/min, 9.577 mls/hr Meropenem 1 gm/ Sodium (Chloride) 50 mls @ 100 mls/hr IV Q12H [facility] Last Admin: 03/21/18 09:04 Dose: 100 mls/hr Aztreonam/Dextrose 1 gm/ (Premix) 50 mls @ 100 mls/hr IV Q8H [facility] Last Admin: 03/21/18 12:26 Dose: 100 mls/hr Lactated Ringer's (Ringers, Lactated) 1,000 mls @ 150 mls/hr IV ASDIRECTED [facility] Last Admin: 03/21/18 11:53 Dose: 150 mls/hr Norepinephrine Bitartrate 8 mg (/ Dextrose/Water) 250 mls @ 3.75 mls/hr IV TITRATE [facility]; Protocol Last Titration: 03/21/18 13:29 Dose: 10 mcg/min, 18.75 mls/hr Vancomycin HCl 1.25 gm/ Sodium (Chloride) 250 mls @ 170 mls/hr IV Q24H [facility] Last Admin: 03/21/18 10:07 Dose: 170 mls/hr Vasopressin 40 units/ Dextrose (/Water) 100 mls @ 3 mls/hr IV TITRATE [facility]; Protocol Last Admin: 03/21/18 13:11 Dose: 0.02 units/min, 3 mls/hr Nystatin (Mycostatin) 5 ml PO QID [facility] Last Admin: 03/21/18 10:06 Dose: 5 ml Pantoprazole Sodium (Protonix Iv) 40 mg IVPUSH DAILY [facility] Last Admin: 03/21/18 10:06 Dose: 40 mg Vancomycin HCl (Vancomycin) 1 gm IV .PHARMACY TO DOSE [facility] Stop: 03/21/18 16:00 Discontinued Medications Dexamethasone (Dexamethasone) Confirm Administered Dose 4 mg .ROUTE .STK-MED ONE Stop: 03/18/18 19:48 Epinephrine HCl (Adrenalin) Confirm Administered Dose 1 mg .ROUTE .STK-MED ONE Stop: 03/18/18 21:07 Fentanyl (Sublimaze) Confirm Administered Dose 250 mcg .ROUTE .STK-MED ONE Stop: 03/18/18 19:48 Glycopyrrolate (Robinul) Confirm Administered Dose 1 mg .ROUTE .STK-MED ONE Stop: 03/18/18 19:48 Heparin Sodium (Porcine) (Heparin Sodium) Confirm Administered Dose 5,000 units .ROUTE .STK-MED ONE Stop: 03/18/18 19:51 Hydromorphone HCl (Dilaudid) 0.5 mg IVPUSH ONETIME ONE Stop: 03/18/18 17:43 Last Admin: 03/18/18 17:47 Dose: 0.5 mg Hydromorphone HCl (Dilaudid) 1 mg IVPUSH ONETIME ONE Stop: 03/18/18 18:18 Last Admin: 03/18/18 18:27 Dose: 1 mg Sodium Chloride (Normal Saline) 1,000 mls @ 1,000 mls/hr IV ASDIRECTED [facility] Last Admin: 03/18/18 17:47 Dose: 1,000 mls/hr Sodium Chloride (Normal Saline) 1,000 mls @ 999 mls/hr IV ASDIRECTED [facility] Last Admin: 03/18/18 19:31 Dose: 999 mls/hr Meropenem 500 mg/ Sodium (Chloride) 50 mls @ 100 mls/hr IV ONETIME ONE Stop: 03/18/18 19:09 Last Admin: 03/18/18 19:01 Dose: 100 mls/hr Sodium Chloride (Normal Saline) Confirm Administered Dose 50 mls @ as directed .ROUTE .STK-MED ONE Stop: 03/18/18 19:40 Last Admin: 03/18/18 20:19 Dose: Not Given Aztreonam 2 gm/ Sodium (Chloride) 50 mls @ 100 mls/hr IV ONETIME ONE Stop: 03/18/18 20:01 Last Admin: 03/18/18 20:44 Dose: 100 mls/hr Meropenem 500 mg/ Sodium (Chloride) 50 mls @ 100 mls/hr IV ONETIME ONE Stop: 03/18/18 20:00 Last Admin: 03/18/18 19:40 Dose: 100 mls/hr Sodium Chloride (Normal Saline) Confirm Administered Dose 250 mls @ as directed .ROUTE .[facility] ONE Stop: 03/18/18 19:59 Lactated Ringer's (Ringers, Lactated) Confirm Administered Dose 1,000 mls @ as directed .ROUTE .[facility] ONE Stop: 03/18/18 19:59 Sodium Chloride (Normal Saline) Confirm Administered Dose 500 mls @ as directed .ROUTE .[facility] ONE Stop: 03/18/18 19:59 Norepinephrine Bitartrate 8 mg (/ Dextrose/Water) 258 mls @ 3.87 mls/hr IV TITRATE [facility]; Protocol Last Admin: 03/19/18 11:45 Dose: 12 mcg/min, 23.22 mls/hr Lactated Ringer's (Ringers, Lactated) Confirm Administered Dose 1,000 mls @ as directed .ROUTE .[facility] ONE Stop: 03/18/18 21:42 Aztreonam 1 gm/ Sodium (Chloride) 50 mls @ 100 mls/hr IV Q8H [facility] Last Admin: 03/19/18 05:29 Dose: 100 mls/hr Potassium Chloride/Dextrose/Sod Cl (D5 1/2 Ns W/ 20 Meq/L Kcl) 1,000 mls @ 150 mls/hr IV ASDIRECTED [facility] Last Admin: 03/18/18 23:11 Dose: 150 mls/hr Lactated Ringer's (Ringers, Lactated) 1,000 mls @ 500 mls/hr IV ASDIRECTED [facility] Last Admin: 03/19/18 01:23 Dose: 500 mls/hr Vasopressin 100 units/ (Dextrose/Water) 255 mls @ 1.53 mls/hr IV TITRATE [facility]; Protocol Stop: 03/21/18 13:00 Last Titration: 03/21/18 11:03 Dose: 0.02 units/min, 3.06 mls/hr Lactated Ringer's (Ringers, Lactated) 1,000 mls @ 500 mls/hr IV BOLUS [facility] Stop: 03/19/18 05:29 Last Admin: 03/19/18 04:02 Dose: 500 mls/hr Lactated Ringer's (Ringers, Lactated) 1,000 mls @ 500 mls/hr IV .[facility]OL[facility] ONE Stop: 03/19/18 14:59 Last Admin: 03/19/18 14:27 Dose: 500 mls/hr Magnesium Sulfate 2 gm/ Premix 50 mls @ 25 mls/hr IV Q6H [facility] Stop: 03/20/18 17:59 Last Admin: 03/20/18 16:30 Dose: 25 mls/hr Meropenem (Merrem) Confirm Administered Dose 500 mg .ROUTE .STK-MED ONE Stop: 03/18/18 19:40 Last Admin: 03/18/18 20:19 Dose: Not Given Neostigmine Methylsulfate (Neostigmine) Confirm Administered Dose 5 mg .ROUTE .STK-MED ONE Stop: 03/18/18 19:48 Ondansetron HCl (Zofran) 4 mg IVPUSH ONETIME ONE Stop: 03/18/18 18:18 Last Admin: 03/18/18 18:27 Dose: 4 mg Ondansetron HCl (Zofran) Confirm Administered Dose 4 mg .ROUTE .STK-MED ONE Stop: 03/18/18 19:48 Phenylephrine HCl (Isaías-Synephrine) Confirm Administered Dose 10 mg .ROUTE .STK- MED ONE Stop: 03/18/18 20:05 Propofol (Diprivan 20 Ml) Confirm Administered Dose 200 mg .ROUTE .STK-MED ONE Stop: 03/18/18 19:48 Rocuronium [place] (Zemuron) Confirm Administered Dose 50 mg .ROUTE .STK-MED ONE Stop: 03/18/18 19:48 Succinylcholine Chloride (Quelicin) Confirm Administered Dose 200 mg .ROUTE .STK -MED ONE Stop: 03/18/18 19:48 - Exam Wound/Incisions: Healing Well Quality Assessment: Supplemental Oxygen (Ventilator), Central Line/PICC, Urine Catheter, DVT Prophylaxis Lungs: Clear to Auscultation Cardiovascular: Regular Rate, Regular Rhythm GI/Abdominal Exam: No Organomegaly, No Distention. No: Normal Bowel Sounds ( Quite abdomen) Extremities: Normal Inspection Skin: Warm, Dry Neurological: No New Focal Deficit Psy/Mental Status: Other (Sedated) Physical Findings Comment:: Scrotal/penile edema. - Problem List & Annotations (1) Perforation of sigmoid colon SNOMED Code(s): 063630021 Code(s): K63.1 - PERFORATION OF INTESTINE (NONTRAUMATIC) Status: Acute Current Visit: Yes - Problem List Review Problem List Initiated/Reviewed/Updated: Yes - My Orders Last 24 Hours: Active Orders 24 hr Category Date Time Status CXR [Chest 1V Frontal] [CR] DAILY Exams 03/21/18 05:00 Taken CXR [Chest 1V Frontal] [CR] DAILY Exams 03/22/18 05:00 Ordered CXR [Chest 1V Frontal] [CR] DAILY Exams 03/23/18 05:00 Ordered CXR [Chest 1V Frontal] [CR] DAILY Exams 03/24/18 05:00 Ordered BASIC METABOLIC PANEL,BMP [CHEM] Stat Lab 03/21/18 17:00 Ordered BLOOD GAS ARTERIAL [BG] Stat Lab 03/21/18 17:00 Ordered BLOOD GAS ARTERIAL [BG] Timed Lab 03/22/18 05:00 Ordered CBC WITH AUTO DIFF [HEME] Timed Lab 03/22/18 05:00 Ordered COMPREHENSIVE METABOLIC PN,CMP [CHEM] Timed Lab 03/22/18 05:00 Ordered MAGNESIUM [CHEM] Timed Lab 03/22/18 05:00 Ordered Nystatin [Mycostatin] Med 03/21/18 10:00 Active 5 ml PO QID Vancomycin Med 03/21/18 09:00 Active 1 gm IV .PHARMACY TO DOSE Vancomycin 1.25 gm Med 03/21/18 10:00 Active Sodium Chloride 0.9% [Normal Saline] 250 ml IV Q24H Vasopressin 40 units Med 03/21/18 13:00 Active Dextrose 5% in Water 98 ml IV TITRATE Medication Orders Propofol (Diprivan 100 Ml) 100 mls @ 2.082 mls/hr IV TITRATE [facility]; Protocol Last Admin: 03/21/18 13:55 Dose: 23 mcg/kg/min, 9.577 mls/hr Titration: 03/21/18 13:55 Dose: 23 mcg/kg/min, 9.577 mls/hr Admin: 03/21/18 04:59 Dose: 23 mcg/kg/min, 9.577 mls/hr Titration: 03/21/18 04:59 Dose: 23 mcg/kg/min, 9.577 mls/hr Admin: 03/20/18 19:28 Dose: 23 mcg/kg/min, 9.577 mls/hr Titration: 03/20/18 19:28 Dose: 23 mcg/kg/min, 9.577 mls/hr Titration: 03/20/18 11:48 Dose: 23 mcg/kg/min, 9.577 mls/hr Admin: 03/20/18 09:35 Dose: 20 mcg/kg/min, 8.328 mls/hr Titration: 03/20/18 09:35 Dose: 20 mcg/kg/min, 8.328 mls/hr Admin: 03/19/18 22:55 Dose: 20 mcg/kg/min, 8.328 mls/hr Titration: 03/19/18 20:57 Dose: 20 mcg/kg/min, 8.328 mls/hr Admin: 03/19/18 08:56 Dose: 20 mcg/kg/min, 8.328 mls/hr Titration: 03/19/18 08:56 Dose: 25 mcg/kg/min, 10.41 mls/hr Titration: 03/19/18 06:13 Dose: 25 mcg/kg/min, 10.41 mls/hr Titration: 03/19/18 00:26 Dose: 20 mcg/kg/min, 8.328 mls/hr Titration: 03/18/18 23:29 Dose: 10 mcg/kg/min, 4.164 mls/hr Titration: 03/18/18 23:18 Dose: 15 mcg/kg/min, 6.246 mls/hr Admin: 03/18/18 22:49 Dose: 5 mcg/kg/min, 2.082 mls/hr Meropenem 1 gm/ Sodium (Chloride) 50 mls @ 100 mls/hr IV Q12H [facility] Last Admin: 03/21/18 09:04 Dose: 100 mls/hr Admin: 03/20/18 20:49 Dose: 100 mls/hr Admin: 03/20/18 08:04 Dose: 100 mls/hr Admin: 03/19/18 20:25 Dose: 100 mls/hr Admin: 03/19/18 08:12 Dose: 100 mls/hr Aztreonam/Dextrose 1 gm/ (Premix) 50 mls @ 100 mls/hr IV Q8H [facility] Last Admin: 03/21/18 12:26 Dose: 100 mls/hr Admin: 03/21/18 04:59 Dose: 100 mls/hr Admin: 03/20/18 21:31 Dose: 100 mls/hr Admin: 03/20/18 13:28 Dose: 100 mls/hr Admin: 03/20/18 05:34 Dose: 100 mls/hr Admin: 03/19/18 21:01 Dose: 100 mls/hr Admin: 03/19/18 14:26 Dose: 100 mls/hr Lactated Ringer's (Ringers, Lactated) 1,000 mls @ 150 mls/hr IV ASDIRECTED [facility] Last Admin: 03/21/18 11:53 Dose: 150 mls/hr Infusion: 03/21/18 11:53 Dose: 150 mls/hr Admin: 03/21/18 05:12 Dose: 150 mls/hr Infusion: 03/21/18 05:10 Dose: 150 mls/hr Admin: 03/20/18 22:29 Dose: 150 mls/hr Infusion: 03/20/18 22:27 Dose: 150 mls/hr Admin: 03/20/18 15:46 Dose: 150 mls/hr Infusion: 03/20/18 15:41 Dose: 150 mls/hr Admin: 03/20/18 09:00 Dose: 150 mls/hr Infusion: 03/20/18 08:57 Dose: 150 mls/hr Admin: 03/20/18 02:16 Dose: 150 mls/hr Infusion: 03/20/18 02:11 Dose: 150 mls/hr Admin: 03/19/18 19:30 Dose: 150 mls/hr Infusion: 03/19/18 19:30 Dose: 150 mls/hr Admin: 03/19/18 14:27 Dose: 150 mls/hr Norepinephrine Bitartrate 8 mg (/ Dextrose/Water) 250 mls @ 3.75 mls/hr IV TITRATE [facility]; Protocol Last Titration: 03/21/18 13:29 Dose: 10 mcg/min, 18.75 mls/hr Admin: 03/21/18 11:55 Dose: 9 mcg/min, 16.87 mls/hr Titration: 03/21/18 11:46 Dose: 10 mcg/min, 18.75 mls/hr Titration: 03/21/18 11:25 Dose: 11 mcg/min, 20.62 mls/hr Admin: 03/21/18 00:35 Dose: 12 mcg/min, 22.5 mls/hr Titration: 03/20/18 22:55 Dose: 12 mcg/min, 22.5 mls/hr Admin: 03/20/18 11:48 Dose: 12 mcg/min, 22.5 mls/hr Titration: 03/20/18 10:45 Dose: 12 mcg/min, 22.5 mls/hr Admin: 03/19/18 23:38 Dose: 12 mcg/min, 22.5 mls/hr Vancomycin HCl 1.25 gm/ Sodium (Chloride) 250 mls @ 170 mls/hr IV Q24H [facility] Last Admin: 03/21/18 10:07 Dose: 170 mls/hr Vasopressin 40 units/ Dextrose (/Water) 100 mls @ 3 mls/hr IV TITRATE [facility]; Protocol Last Admin: 03/21/18 13:11 Dose: 0.02 units/min, 3 mls/hr Nystatin (Mycostatin) 5 ml PO QID [facility] Last Admin: 03/21/18 10:06 Dose: 5 ml Pantoprazole Sodium (Protonix Iv) 40 mg IVPUSH DAILY [facility] Last Admin: 03/21/18 10:06 Dose: 40 mg Admin: 03/20/18 09:39 Dose: 40 mg Admin: 03/19/18 10:47 Dose: 40 mg Vancomycin HCl (Vancomycin) 1 gm IV .PHARMACY TO DOSE [facility] Stop: 03/21/18 16:00 - Assessment Assessment (Free Text/Narrative):: Slow improvement. Do not plan a full closure of incision, may loosely bring it together tomorrow over drain. Follow.
[2018-03-21] MEDS: Potassium Chloride 20 MEQ in Premix Bag 1 BAG IV SCH ×2 (18:27→22:20)
[2018-03-21] MEDS ORDERED: Potassium Chloride 40 MEQ/20 ML SDV IV ONE (18:30)
[2018-03-22] MEDS: Norepinephrine 8 MG in Dextrose 5% in Water 242 ML IV SCH ×4 (00:55→12:30)
[2018-03-22] MEDS: Aztreonam/Dextrose-Water 1 GM in Premix Bag 1 BAG IV SCH ×3 (04:24→21:41)
[2018-03-22] MEDS: Nystatin Susp 100,000 Unit/ML 5 ML UD Cup PO SCH ×4 (05:43→21:42)
[2018-03-22] MEDS: Potassium Chloride 20 MEQ in Premix Bag 1 BAG IV SCH ×4 (09:28→16:13)
--- NOTE | 2018-03-22 09:31 | PCM.PN ---
- General Info Date of Service: 03/22/18 Subjective Update: Mr. Silva shown further modest improvement over last 24 hours. Renal function continues to slowly improve and he is requiring less hemodynamic support from the pressors although still remains on relatively high dose of norepinephrine and low dose of vasopressin. White blood cell count remained significantly elevated, he's had no elevation in temperature. Remains sedated and unable to provide information concerning symptoms or review of systems. - Patient Data Vitals - Most Recent: Last Vital Signs Temp 97.5 F 03/22/18 05:00 Pulse 68 03/21/18 18:00 Resp 18 03/22/18 05:52 BP 122/49 L 03/22/18 05:52 Pulse Ox 97 03/22/18 05:52 Weight - Most Recent: 153 lb 0.013 oz I&O - Last 24 Hours: Intake & Output 03/21/18 03/22/18 03/22/18 22:59 06:59 14:59 Intake Total 2649 537 Output Total 1470 705 Balance 1179 -168 Lab Results Last 24 Hours: Laboratory Results - last 24 hr 03/21/18 03/21/18 03/22/18 Range/Units 17:00 17:32 05:00 WBC (4.5-11.0) K/uL RBC (4.30-5.90) M/uL Hgb (12.0-15.0) g/dL Hct (40.0-54.0) % MCV (80-98) fL MCH (27-31) pg MCHC (32-36) % Plt Count (150-400) K/uL Add Manual Diff Neutrophils % (Manual) (36-66) % Band Neutrophils % (5-11) % Lymphocytes % (Manual) (24-44) % Puncture Site A-line A-line ABG pH 7.488 H 7.458 H (7.350-7.450) ABG pCO2 27.7 L 28.1 L (35.0-42.0) mmHg ABG pO2 64.1 L 56.9 L (75.0-100.0) mmHg ABG HCO3 20.8 L 19.6 L (22.0-26.0) mmol/L ABG Total CO2 19.0 L 17.9 L (23.0-27.0) mmol/L ABG O2 Saturation 93.2 L 89.5 L (95.0-98.0) % ABG O2 Content 13.5 L 12.8 L (15.0-23.0) %vol ABG Base Excess -1.3 -3.0 mm/L ABG Hemoglobin 10.4 L 10.3 L (13.5-18.0) g/dL ABG Oxyhemoglobin 91.9 88.2 % ABG Carboxyhemoglobin 0.7 0.9 (0.0-1.6) % ABG Methemoglobin 0.7 0.6 % Craig Test Not performed A-line O2 Delivery Device Ventilator Ventilator Oxygen Flow Rate L Sodium 134 L (140-148) mmol/L Potassium 3.5 L (3.6-5.2) mmol/L Chloride 102 (100-108) mmol/L Carbon Dioxide 22 (21-32) mmol/L Anion Gap 13.5 (5.0-14.0) mmol/L BUN 45 H (7-18) mg/dL Creatinine 2.0 H (0.8-1.3) mg/dL Est Cr Clr Drug Dosing 29.76 mL/min Estimated GFR (MDRD) 33 L (>60) Glucose 105 (74-106) mg/dL Calcium 7.5 L (8.5-10.1) mg/dL Magnesium (1.8-2.4) mg/dL Total Bilirubin (0.2-1.0) mg/dL AST (15-37) U/L ALT (12-78) U/L Alkaline Phosphatase (46-116) U/L Total Protein (6.4-8.2) g/dL Albumin (3.4-5.0) g/dL Globulin (2.3-3.5) g/dL Albumin/Globulin Ratio (1.2-2.2) 03/22/18 03/22/18 Range/Units 05:35 05:35 WBC 27.8 H (4.5-11.0) K/uL RBC 3.44 L (4.30-5.90) M/uL Hgb 10.4 L (12.0-15.0) g/dL Hct 30.8 L (40.0-54.0) % MCV 90 (80-98) fL MCH 30 (27-31) pg MCHC 34 (32-36) % Plt Count 90 L (150-400) K/uL Add Manual Diff Yes Neutrophils % (Manual) 83 H (36-66) % Band Neutrophils % 15 H (5-11) % Lymphocytes % (Manual) 2 L (24-44) % Puncture Site ABG pH (7.350-7.450) ABG pCO2 (35.0-42.0) mmHg ABG pO2 (75.0-100.0) mmHg ABG HCO3 (22.0-26.0) mmol/L ABG Total CO2 (23.0-27.0) mmol/L ABG O2 Saturation (95.0-98.0) % ABG O2 Content (15.0-23.0) %vol ABG Base Excess mm/L ABG Hemoglobin (13.5-18.0) g/dL ABG Oxyhemoglobin % ABG Carboxyhemoglobin (0.0-1.6) % ABG Methemoglobin % Craig Test O2 Delivery Device Oxygen Flow Rate L Sodium 133 L (140-148) mmol/L Potassium 3.1 L (3.6-5.2) mmol/L Chloride 101 (100-108) mmol/L Carbon Dioxide 23 (21-32) mmol/L Anion Gap 12.1 (5.0-14.0) mmol/L BUN 45 H (7-18) mg/dL Creatinine 1.8 H (0.8-1.3) mg/dL Est Cr Clr Drug Dosing 33.07 mL/min Estimated GFR (MDRD) 37 L (>60) Glucose 120 H (74-106) mg/dL Calcium 7.6 L (8.5-10.1) mg/dL Magnesium 2.1 (1.8-2.4) mg/dL Total Bilirubin 0.4 (0.2-1.0) mg/dL AST 132 H (15-37) U/L ALT 50 (12-78) U/L Alkaline Phosphatase 101 (46-116) U/L Total Protein 4.4 L (6.4-8.2) g/dL Albumin 1.1 L (3.4-5.0) g/dL Globulin 3.3 (2.3-3.5) g/dL Albumin/Globulin Ratio 0.3 L (1.2-2.2) Dante Results Last 24 Hours: Microbiology 03/18/18 20:59 Gram Stain - Final Peritoneal Fluid Wound Culture - Final Escherichia Coli Escherichia Coli#2 Anaerobic Culture - Final NO GROWTH AFTER 3 DAYS 03/18/18 18:55 Aerobic Blood Culture - Final Blood - Venous - Lab Draw Escherichia Coli Escherichia Coli#2 Anaerobic Blood Culture - Preliminary NO GROWTH AFTER 3 DAYS 03/18/18 18:45 Aerobic Blood Culture - Preliminary Blood - Venous NO GROWTH AFTER 3 DAYS Anaerobic Blood Culture - Preliminary NO GROWTH AFTER 3 DAYS Med Orders - Current: Current Medications Propofol (Diprivan 100 Ml) 100 mls @ 2.082 mls/hr IV TITRATE [facility]; Protocol Last Admin: 03/22/18 06:58 Dose: 30 mcg/kg/min, 12.492 mls/hr Meropenem 1 gm/ Sodium (Chloride) 50 mls @ 100 mls/hr IV Q12H [facility] Last Admin: 03/22/18 08:09 Dose: 100 mls/hr Aztreonam/Dextrose 1 gm/ (Premix) 50 mls @ 100 mls/hr IV Q8H [facility] Last Admin: 03/22/18 04:24 Dose: 100 mls/hr Norepinephrine Bitartrate 8 mg (/ Dextrose/Water) 250 mls @ 3.75 mls/hr IV TITRATE [facility]; Protocol Last Admin: 03/22/18 00:55 Dose: 12 mcg/min, 22.5 mls/hr Vancomycin HCl 1.25 gm/ Sodium (Chloride) 250 mls @ 170 mls/hr IV Q24H [facility] Last Admin: 03/21/18 10:07 Dose: 170 mls/hr Vasopressin 40 units/ Dextrose (/Water) 100 mls @ 3 mls/hr IV TITRATE [facility]; Protocol Last Titration: 03/22/18 04:00 Dose: 0.02 units/min, 3 mls/hr Potassium Chloride 20 meq/ (Premix) 100 mls @ 50 mls/hr IV Q2H [facility] Stop: 03/22/18 12:59 Potassium Chloride 40 meq/ (Premix) 100 mls @ 25 mls/hr IV ONETIME ONE Stop: 03/22/18 17:29 Nystatin (Mycostatin) 5 ml PO QID [facility] Last Admin: 03/22/18 05:43 Dose: 5 ml Pantoprazole Sodium (Protonix Iv) 40 mg IVPUSH DAILY [facility] Last Admin: 03/21/18 10:06 Dose: 40 mg Discontinued Medications Dexamethasone (Dexamethasone) Confirm Administered Dose 4 mg .ROUTE .ST-MED ONE Stop: 03/18/18 19:48 Epinephrine HCl (Adrenalin) Confirm Administered Dose 1 mg .ROUTE .[email or web address]MED ONE Stop: 03/18/18 21:07 Fentanyl (Sublimaze) Confirm Administered Dose 250 mcg .ROUTE .[email or web address] ONE Stop: 03/18/18 19:48 Glycopyrrolate (Robinul) Confirm Administered Dose 1 mg .ROUTE .[facility] [[email or web address]MED ONE Stop: 03/18/18 19:48 Heparin Sodium (Porcine) (Heparin Sodium) Confirm Administered Dose 5,000 units .ROUTE .[email or web address] ONE Stop: 03/18/18 19:51 Hydromorphone HCl (Dilaudid) 0.5 mg IVPUSH ONETIME ONE Stop: 03/18/18 17:43 Last Admin: 03/18/18 17:47 Dose: 0.5 mg Hydromorphone HCl (Dilaudid) 1 mg IVPUSH ONETIME ONE Stop: 03/18/18 18:18 Last Admin: 03/18/18 18:27 Dose: 1 mg Sodium Chloride (Normal Saline) 1,000 mls @ 1,000 mls/hr IV ASDIRECTED [facility] Last Admin: 03/18/18 17:47 Dose: 1,000 mls/hr Sodium Chloride (Normal Saline) 1,000 mls @ 999 mls/hr IV ASDIRECTED [facility] Last Admin: 03/18/18 19:31 Dose: 999 mls/hr Meropenem 500 mg/ Sodium (Chloride) 50 mls @ 100 mls/hr IV ONETIME ONE Stop: 03/18/18 19:09 Last Admin: 03/18/18 19:01 Dose: 100 mls/hr Sodium Chloride (Normal Saline) Confirm Administered Dose 50 mls @ as directed .ROUTE .[email or web address] ONE Stop: 03/18/18 19:40 Last Admin: 03/18/18 20:19 Dose: Not Given Aztreonam 2 gm/ Sodium (Chloride) 50 mls @ 100 mls/hr IV ONETIME ONE Stop: 03/18/18 20:01 Last Admin: 03/18/18 20:44 Dose: 100 mls/hr Meropenem 500 mg/ Sodium (Chloride) 50 mls @ 100 mls/hr IV ONETIME ONE Stop: 03/18/18 20:00 Last Admin: 03/18/18 19:40 Dose: 100 mls/hr Sodium Chloride (Normal Saline) Confirm Administered Dose 250 mls @ as directed .ROUTE .STK-MED ONE Stop: 03/18/18 19:59 Lactated Ringer's (Ringers, Lactated) Confirm Administered Dose 1,000 mls @ as directed .ROUTE .STK-MED ONE Stop: 03/18/18 19:59 Sodium Chloride (Normal Saline) Confirm Administered Dose 500 mls @ as directed .ROUTE .[facility] [[email or web address]MED ONE Stop: 03/18/18 19:59 Norepinephrine Bitartrate 8 mg (/ Dextrose/Water) 258 mls @ 3.87 mls/hr IV TITRATE [facility]; Protocol Last Admin: 03/19/18 11:45 Dose: 12 mcg/min, 23.22 mls/hr Lactated Ringer's (Ringers, Lactated) Confirm Administered Dose 1,000 mls @ [facility] Stop: 03/18/18 21:42 Aztreonam 1 gm/ Sodium (Chloride) 50 mls @ 100 mls/hr IV Q8H [facility] Last Admin: 03/19/18 05:29 Dose: 100 mls/hr Potassium Chloride/Dextrose/Sod Cl (D5 1/2 Ns W/ 20 Meq/L Kcl) 1,000 mls @ 150 mls/hr IV ASDIRECTED [facility] Last Admin: 03/18/18 23:11 Dose: 150 mls/hr Lactated Ringer's (Ringers, Lactated) 1,000 mls @ 500 mls/hr IV ASDIRECTED [facility] Last Admin: 03/19/18 01:23 Dose: 500 mls/hr Vasopressin 100 units/ (Dextrose/Water) 255 mls @ 1.53 mls/hr IV TITRATE [facility]; Protocol Stop: 03/21/18 13:00 Last Titration: 03/21/18 11:03 Dose: 0.02 units/min, 3.06 mls/hr Lactated Ringer's (Ringers, Lactated) 1,000 mls @ 500 mls/hr IV BOLUS [facility] Stop: 03/19/18 05:29 Last Admin: 03/19/18 04:02 Dose: 500 mls/hr Lactated Ringer's (Ringers, Lactated) 1,000 mls @ 500 mls/hr IV .BOLUS ONE Stop: 03/19/18 14:59 Last Admin: 03/19/18 14:27 Dose: 500 mls/hr Lactated Ringer's (Ringers, Lactated) 1,000 mls @ 150 mls/hr IV ASDIRECTED [facility] Last Admin: 03/21/18 11:53 Dose: 150 mls/hr Magnesium Sulfate 2 gm/ Premix 50 mls @ 25 mls/hr IV Q6H [facility] Stop: 03/20/18 17:59 Last Admin: 03/20/18 16:30 Dose: 25 mls/hr Potassium Chloride 20 meq/ (Premix) 100 mls @ 50 mls/hr IV Q2H [facility] Stop: 03/21/18 22:59 Last Admin: 03/21/18 22:20 Dose: 50 mls/hr Meropenem (Merrem) Confirm Administered Dose 500 mg .ROUTE .STK-MED ONE Stop: 03/18/18 19:40 Last Admin: 03/18/18 20:19 Dose: Not Given Neostigmine Methylsulfate (Neostigmine) Confirm Administered Dose 5 mg .ROUTE .STK-MED ONE Stop: 03/18/18 19:48 Ondansetron HCl (Zofran) 4 mg IVPUSH ONETIME ONE Stop: 03/18/18 18:18 Last Admin: 03/18/18 18:27 Dose: 4 mg Ondansetron HCl (Zofran) Confirm Administered Dose 4 mg .ROUTE .STK-MED ONE Stop: 03/18/18 19:48 Phenylephrine HCl (Isaías-Synephrine) Confirm Administered Dose 10 mg .ROUTE .STK- MED ONE Stop: 03/18/18 20:05 Propofol (Diprivan 20 Ml) Confirm Administered Dose 200 mg .ROUTE .STK-MED ONE Stop: 03/18/18 19:48 Rocuronium [place] (Zemuron) Confirm Administered Dose 50 mg .ROUTE .STK-MED ONE Stop: 03/18/18 19:48 Succinylcholine Chloride (Quelicin) Confirm Administered Dose 200 mg .ROUTE .STK -MED ONE Stop: 03/18/18 19:48 Vancomycin HCl (Vancomycin) 1 gm IV .PHARMACY TO DOSE [facility] Stop: 03/21/18 16:00 - Exam General: Sedated, Lethargic Lungs: Clear to Auscultation, Normal Respiratory Effort Cardiovascular: Regular Rate, Regular Rhythm, No Murmurs GI/Abdominal Exam: Soft, No Organomegaly, No Distention Extremities: Non-Tender, Pedal Edema Skin: Warm, Dry - Problem List Review Problem List Initiated/Reviewed/Updated: Yes - My Orders Last 24 Hours: My Active Orders 03/21/18 10:00 Nystatin [Mycostatin] 5 ml PO QID Vancomycin 1.25 gm Sodium Chloride 0.9% [Normal Saline] 250 ml IV Q24H 03/21/18 13:00 Vasopressin 40 units Dextrose 5% in Water 98 ml IV TITRATE 03/22/18 05:00 CXR [Chest 1V Frontal] [CR] DAILY 03/22/18 09:00 Potassium Chloride [KCL 20 MEQ in Water 100 ML] 20 meq Premix Bag 1 bag IV Q2H 03/22/18 13:30 Potassium Chloride Riders [KCL 40 MEQ in Water 100 ML] 40 meq Premix Bag 1 bag IV ONETIME 03/22/18 18:00 BASIC METABOLIC PANEL,BMP [CHEM] Stat BLOOD GAS ARTERIAL [BG] Stat 03/23/18 05:00 CXR [Chest 1V Frontal] [CR] DAILY CBC WITH AUTO DIFF [HEME] Timed COMPREHENSIVE METABOLIC PN,CMP [CHEM] Timed LACTIC ACID [CHEM] Timed MAGNESIUM [CHEM] Timed 03/24/18 05:00 CXR [Chest 1V Frontal] [CR] DAILY - Plan Plan:: ASSESSMENT AND PLAN SIGMOID COLON PERFORATION RESULTING IN ACUTE ABDOMEN AND SEPTIC SHOCK-status post exploratory laparotomy with partial sigmoid colon resection and creation of a colostomy. Remains critically ill with septic shock and respiratory compromise. Increased white blood cell count, no significant temperature elevation in the last 24 hours -IV vancomycin, meropenem and Azactam -Post operative surgical care per Dr. Adams -Possible delayed primary closure today SEPTIC SHOCK-secondary to intestinal perforation, solid and liquid stool noted throughout the abdominal cavity at the time of surgery. Remains on IV pressors, renal function continues to slowly improve. Doses of norepinephrine and vasopressin have been decreased during the last 24 hours. White blood cell count remains elevated, no significant temperature elevation in the last 24 hours. -Antibiotic therapy as above -Maintenance fluid infusion was discontinued yesterday -Continue ongoing use of IV norepinephrine and vasopressin for support of blood pressure, continue to work on taper as able ACUTE HYPOXIC RESPIRATORY FAILURE-secondary to septic shock, colon perforation, recent surgery and underlying COPD -Continue mechanical ventilation until he is more hemodynamically stable [id number]-year smoking history -Nebulized albuterol as needed -Vigorous pulmonary toilet during the postoperative period ACUTE KIDNEY INJURY-further improvement in renal function over the last 24 hours with adequate urine output -Work on diuresis after hemodynamics have stabilized -Closely monitor urine output and renal function during the postoperative period HISTORY OF LUNG AND PROSTATE CARCINOMA-lung cancer felt to be stable, currently receiving active treatment for management of prostate carcinoma MAINTENANCE ISSUES -DVT prophylaxis; SCUDs -GI prophylaxis; Protonix 40 mg IV daily during postoperative period -Sorto catheter; will require during the postoperative period for close monitoring of urine output -Nutrition; nothing by mouth -Nicotine dependence; CODE STATUS-FULL CODE ADMISSION STATUS-patient will be admitted to inpatient status, expect at least a 2 night hospital stay for evaluation and management of problems as outlined above. At the time of this admission I do not reasonably expected evaluation and management of this problem will require more than a 96 hour hospital stay. DISPOSITION-anticipate discharge to home after the hospital stay. PRIMARY CARE PROVIDER-Emil Randall
[2018-03-22] MEDS: Vasopressin 40 UNITS in Dextrose 5% in Water 98 ML IV SCH ×2 (10:06)
[2018-03-22] MEDS: Pantoprazole 40 MG Vial IVPUSH SCH (10:06)
--- NOTE | 2018-03-22 16:47 | PCM.SURGPN ---
- General Info Date of Service: 03/22/18 Date of Surgery/Procedure: 03/18/18 POD#: 4 Post-Op Diagnosis: Perforated sigmoid colon, [place] IV Admission Diagnosis/Problem: Perforation of sigmoid colon Functional Status: Reports: Pain Controlled, Urinating (Sorto, still producing urine. ). Denies: Tolerating Diet, Ambulating - Patient Data Vitals - Most Recent: Last Vital Signs Temp 97.5 F 03/22/18 05:00 Pulse 60 03/22/18 14:00 Resp 18 03/22/18 14:00 BP 121/47 L 03/22/18 14:00 Pulse Ox 100 03/22/18 14:00 Weight - Most Recent: 153 lb 0.013 oz I&O - Last 24 Hours: Intake & Output 03/22/18 03/22/18 03/22/18 06:59 14:59 22:59 Intake Total 537 500 Output Total 705 310 Balance -168 190 Lab Results Last 24 Hrs: Laboratory Results - last 24 hr 03/21/18 03/21/18 03/22/18 Range/Units 17:00 17:32 05:00 WBC (4.5-11.0) K/uL RBC (4.30-5.90) M/uL Hgb (12.0-15.0) g/dL Hct (40.0-54.0) % MCV (80-98) fL MCH (27-31) pg MCHC (32-36) % Plt Count (150-400) K/uL Add Manual Diff Neutrophils % (Manual) (36-66) % Band Neutrophils % (5-11) % Lymphocytes % (Manual) (24-44) % Puncture Site A-line A-line ABG pH 7.488 H 7.458 H (7.350-7.450) ABG pCO2 27.7 L 28.1 L (35.0-42.0) mmHg ABG pO2 64.1 L 56.9 L (75.0-100.0) mmHg ABG HCO3 20.8 L 19.6 L (22.0-26.0) mmol/L ABG Total CO2 19.0 L 17.9 L (23.0-27.0) mmol/L ABG O2 Saturation 93.2 L 89.5 L (95.0-98.0) % ABG O2 Content 13.5 L 12.8 L (15.0-23.0) %vol ABG Base Excess -1.3 -3.0 mm/L ABG Hemoglobin 10.4 L 10.3 L (13.5-18.0) g/dL ABG Oxyhemoglobin 91.9 88.2 % ABG Carboxyhemoglobin 0.7 0.9 (0.0-1.6) % ABG Methemoglobin 0.7 0.6 % Craig Test Not performed A-line O2 Delivery Device Ventilator Ventilator Oxygen Flow Rate L Sodium 134 L (140-148) mmol/L Potassium 3.5 L (3.6-5.2) mmol/L Chloride 102 (100-108) mmol/L Carbon Dioxide 22 (21-32) mmol/L Anion Gap 13.5 (5.0-14.0) mmol/L BUN 45 H (7-18) mg/dL Creatinine 2.0 H (0.8-1.3) mg/dL Est Cr Clr Drug Dosing 29.76 mL/min Estimated GFR (MDRD) 33 L (>60) Glucose 105 (74-106) mg/dL Calcium 7.5 L (8.5-10.1) mg/dL Magnesium (1.8-2.4) mg/dL Total Bilirubin (0.2-1.0) mg/dL AST (15-37) U/L ALT (12-78) U/L Alkaline Phosphatase (46-116) U/L Total Protein (6.4-8.2) g/dL Albumin (3.4-5.0) g/dL Globulin (2.3-3.5) g/dL Albumin/Globulin Ratio (1.2-2.2) 03/22/18 03/22/18 Range/Units 05:35 05:35 WBC 27.8 H (4.5-11.0) K/uL RBC 3.44 L (4.30-5.90) M/uL Hgb 10.4 L (12.0-15.0) g/dL Hct 30.8 L (40.0-54.0) % MCV 90 (80-98) fL MCH 30 (27-31) pg MCHC 34 (32-36) % Plt Count 90 L (150-400) K/uL Add Manual Diff Yes Neutrophils % (Manual) 83 H (36-66) % Band Neutrophils % 15 H (5-11) % Lymphocytes % (Manual) 2 L (24-44) % Puncture Site ABG pH (7.350-7.450) ABG pCO2 (35.0-42.0) mmHg ABG pO2 (75.0-100.0) mmHg ABG HCO3 (22.0-26.0) mmol/L ABG Total CO2 (23.0-27.0) mmol/L ABG O2 Saturation (95.0-98.0) % ABG O2 Content (15.0-23.0) %vol ABG Base Excess mm/L ABG Hemoglobin (13.5-18.0) g/dL ABG Oxyhemoglobin % ABG Carboxyhemoglobin (0.0-1.6) % ABG Methemoglobin % Craig Test O2 Delivery Device Oxygen Flow Rate L Sodium 133 L (140-148) mmol/L Potassium 3.1 L (3.6-5.2) mmol/L Chloride 101 (100-108) mmol/L Carbon Dioxide 23 (21-32) mmol/L Anion Gap 12.1 (5.0-14.0) mmol/L BUN 45 H (7-18) mg/dL Creatinine 1.8 H (0.8-1.3) mg/dL Est Cr Clr Drug Dosing 33.07 mL/min Estimated GFR (MDRD) 37 L (>60) Glucose 120 H (74-106) mg/dL Calcium 7.6 L (8.5-10.1) mg/dL Magnesium 2.1 (1.8-2.4) mg/dL Total Bilirubin 0.4 (0.2-1.0) mg/dL AST 132 H (15-37) U/L ALT 50 (12-78) U/L Alkaline Phosphatase 101 (46-116) U/L Total Protein 4.4 L (6.4-8.2) g/dL Albumin 1.1 L (3.4-5.0) g/dL Globulin 3.3 (2.3-3.5) g/dL Albumin/Globulin Ratio 0.3 L (1.2-2.2) Dante Results Last 24 Hrs: Microbiology 03/18/18 20:59 Gram Stain - Final Peritoneal Fluid Wound Culture - Final Escherichia Coli Escherichia Coli#2 Anaerobic Culture - Final NO GROWTH AFTER 3 DAYS 03/18/18 18:55 Aerobic Blood Culture - Final Blood - Venous - Lab Draw Escherichia Coli Escherichia Coli#2 Anaerobic Blood Culture - Preliminary NO GROWTH AFTER 3 DAYS 03/18/18 18:45 Aerobic Blood Culture - Preliminary Blood - Venous NO GROWTH AFTER 3 DAYS Anaerobic Blood Culture - Preliminary NO GROWTH AFTER 3 DAYS Med Orders - Current: Current Medications Heparin Sodium (Porcine) (Heparin Lock Flush 100 Units/Ml) 500 units FLUSH ASDIRECTED PRN PRN Reason: IV Use Last Admin: 03/22/18 12:28 Dose: 500 units Propofol (Diprivan 100 Ml) 100 mls @ 2.082 mls/hr IV TITRATE [facility]; Protocol Last Admin: 03/22/18 06:58 Dose: 30 mcg/kg/min, 12.492 mls/hr Meropenem 1 gm/ Sodium (Chloride) 50 mls @ 100 mls/hr IV Q12H [facility] Last Admin: 03/22/18 08:09 Dose: 100 mls/hr Aztreonam/Dextrose 1 gm/ (Premix) 50 mls @ 100 mls/hr IV Q8H [facility] Last Admin: 03/22/18 14:00 Dose: 100 mls/hr Norepinephrine Bitartrate 8 mg (/ Dextrose/Water) 250 mls @ 3.75 mls/hr IV TITRATE [facility]; Protocol Last Admin: 03/22/18 12:30 Dose: 12 mcg/min, 22.5 mls/hr Vancomycin HCl 1.25 gm/ Sodium (Chloride) 250 mls @ 170 mls/hr IV Q24H [facility] Last Admin: 03/22/18 10:06 Dose: 170 mls/hr Vasopressin 40 units/ Dextrose (/Water) 100 mls @ 3 mls/hr IV TITRATE [facility]; Protocol Last Admin: 03/22/18 10:06 Dose: 0.02 units/min, 3 mls/hr Potassium Chloride 20 meq/ (Premix) 100 mls @ 50 mls/hr IV Q2H [facility] Stop: 03/22/18 17:29 Last Admin: 03/22/18 16:13 Dose: 50 mls/hr Nystatin (Mycostatin) 5 ml PO QID [facility] Last Admin: 03/22/18 10:06 Dose: 5 ml Pantoprazole Sodium (Protonix Iv) 40 mg IVPUSH DAILY [facility] Last Admin: 03/22/18 10:06 Dose: 40 mg Discontinued Medications Dexamethasone (Dexamethasone) Confirm Administered Dose 4 mg .ROUTE .STK-MED ONE Stop: 03/18/18 19:48 Epinephrine HCl (Adrenalin) Confirm Administered Dose 1 mg .ROUTE .STK-MED ONE Stop: 03/18/18 21:07 Fentanyl (Sublimaze) Confirm Administered Dose 250 mcg .ROUTE .STK-MED ONE Stop: 03/18/18 19:48 Glycopyrrolate (Robinul) Confirm Administered Dose 1 mg .ROUTE .STK-MED ONE Stop: 03/18/18 19:48 Heparin Sodium (Porcine) (Heparin Sodium) Confirm Administered Dose 5,000 units .ROUTE .STK-MED ONE Stop: 03/18/18 19:51 Heparin Sodium (Porcine) (Heparin Lock Flush 100 Units/Ml) Confirm Administered Dose 500 units .ROUTE .ST-MED ONE Stop: 03/22/18 12:17 Last Admin: 03/22/18 12:30 Dose: Not Given Hydromorphone HCl (Dilaudid) 0.5 mg IVPUSH ONETIME ONE Stop: 03/18/18 17:43 Last Admin: 03/18/18 17:47 Dose: 0.5 mg Hydromorphone HCl (Dilaudid) 1 mg IVPUSH ONETIME ONE Stop: 03/18/18 18:18 Last Admin: 03/18/18 18:27 Dose: 1 mg Sodium Chloride (Normal Saline) 1,000 mls @ 1,000 mls/hr IV ASDIRECTED [facility] Last Admin: 03/18/18 17:47 Dose: 1,000 mls/hr Sodium Chloride (Normal Saline) 1,000 mls @ 999 mls/hr IV ASDIRECTED [facility] Last Admin: 03/18/18 19:31 Dose: 999 mls/hr Meropenem 500 mg/ Sodium (Chloride) 50 mls @ 100 mls/hr IV ONETIME ONE Stop: 03/18/18 19:09 Last Admin: 03/18/18 19:01 Dose: 100 mls/hr Sodium Chloride (Normal Saline) Confirm Administered Dose 50 mls @ as directed .ROUTE .ST-MED ONE Stop: 03/18/18 19:40 Last Admin: 03/18/18 20:19 Dose: Not Given Aztreonam 2 gm/ Sodium (Chloride) 50 mls @ 100 mls/hr IV ONETIME ONE Stop: 03/18/18 20:01 Last Admin: 03/18/18 20:44 Dose: 100 mls/hr Meropenem 500 mg/ Sodium (Chloride) 50 mls @ 100 mls/hr IV ONETIME ONE Stop: 03/18/18 20:00 Last Admin: 03/18/18 19:40 Dose: 100 mls/hr Sodium Chloride (Normal Saline) Confirm Administered Dose 250 mls @ as directed .ROUTE .STK-MED ONE Stop: 03/18/18 19:59 Lactated Ringer's (Ringers, Lactated) Confirm Administered Dose 1,000 mls @ as directed .ROUTE .STK-MED ONE Stop: 03/18/18 19:59 Sodium Chloride (Normal Saline) Confirm Administered Dose 500 mls @ as directed .ROUTE .[facility]-MED ONE Stop: 03/18/18 19:59 Norepinephrine Bitartrate 8 mg (/ Dextrose/Water) 258 mls @ 3.87 mls/hr IV TITRATE [facility]; Protocol Last Admin: 03/19/18 11:45 Dose: 12 mcg/min, 23.22 mls/hr Lactated Ringer's (Ringers, Lactated) Confirm Administered Dose 1,000 mls @ as directed .ROUTE .[facility]-MED ONE Stop: 03/18/18 21:42 Aztreonam 1 gm/ Sodium (Chloride) 50 mls @ 100 mls/hr IV Q8H [facility] Last Admin: 03/19/18 05:29 Dose: 100 mls/hr Potassium Chloride/Dextrose/Sod Cl (D5 1/2 Ns W/ 20 Meq/L Kcl) 1,000 mls @ 150 mls/hr IV ASDIRECTED [facility] Last Admin: 03/18/18 23:11 Dose: 150 mls/hr Lactated Ringer's (Ringers, Lactated) 1,000 mls @ 500 mls/hr IV ASDIRECTED [facility] Last Admin: 03/19/18 01:23 Dose: 500 mls/hr Vasopressin 100 units/ (Dextrose/Water) 255 mls @ 1.53 mls/hr IV TITRATE [facility]; Protocol Stop: 03/21/18 13:00 Last Titration: 03/21/18 11:03 Dose: 0.02 units/min, 3.06 mls/hr Lactated Ringer's (Ringers, Lactated) 1,000 mls @ 500 mls/hr IV BOLUS [facility] Stop: 03/19/18 05:29 Last Admin: 03/19/18 04:02 Dose: 500 mls/hr Lactated Ringer's (Ringers, Lactated) 1,000 mls @ 500 mls/hr IV .BOLUS ONE Stop: 03/19/18 14:59 Last Admin: 03/19/18 14:27 Dose: 500 mls/hr Lactated Ringer's (Ringers, Lactated) 1,000 mls @ 150 mls/hr IV ASDIRECTED [facility] Last Admin: 03/21/18 11:53 Dose: 150 mls/hr Magnesium Sulfate 2 gm/ Premix 50 mls @ 25 mls/hr IV Q6H [facility] Stop: 03/20/18 17:59 Last Admin: 03/20/18 16:30 Dose: 25 mls/hr Potassium Chloride 20 meq/ (Premix) 100 mls @ 50 mls/hr IV Q2H [facility] Stop: 03/21/18 22:59 Last Admin: 03/21/18 22:20 Dose: 50 mls/hr Potassium Chloride 20 meq/ (Premix) 100 mls @ 50 mls/hr IV Q2H [facility] Stop: 03/22/18 12:59 Last Admin: 03/22/18 11:30 Dose: 50 mls/hr Meropenem (Merrem) Confirm Administered Dose 500 mg .ROUTE .STK-MED ONE Stop: 03/18/18 19:40 Last Admin: 03/18/18 20:19 Dose: Not Given Neostigmine Methylsulfate (Neostigmine) Confirm Administered Dose 5 mg .ROUTE .STK-MED ONE Stop: 03/18/18 19:48 Ondansetron HCl (Zofran) 4 mg IVPUSH ONETIME ONE Stop: 03/18/18 18:18 Last Admin: 03/18/18 18:27 Dose: 4 mg Ondansetron HCl (Zofran) Confirm Administered Dose 4 mg .ROUTE .STK-MED ONE Stop: 03/18/18 19:48 Phenylephrine HCl (Isaías-Synephrine) Confirm Administered Dose 10 mg .ROUTE .STK- MED ONE Stop: 03/18/18 20:05 Propofol (Diprivan 20 Ml) Confirm Administered Dose 200 mg .ROUTE .STK-MED ONE Stop: 03/18/18 19:48 Rocuronium [place] (Zemuron) Confirm Administered Dose 50 mg .ROUTE .STK-MED ONE Stop: 03/18/18 19:48 Succinylcholine Chloride (Quelicin) Confirm Administered Dose 200 mg .ROUTE .STK -MED ONE Stop: 03/18/18 19:48 Vancomycin HCl (Vancomycin) 1 gm IV .PHARMACY TO DOSE [facility] Stop: 03/21/18 16:00 - Exam Wound/Incisions: Other (Wound does not appear well enough to close. ) Quality Assessment: Supplemental Oxygen (Ventilator ), Central Line/PICC, Urine Catheter, DVT Prophylaxis General: Sedated Lungs: Clear to Auscultation Cardiovascular: Regular Rate GI/Abdominal Exam: Non-Tender, No Organomegaly, No Distention. No: Normal Bowel Sounds Extremities: Pedal Edema Skin: Warm, Dry Neurological: No New Focal Deficit Psy/Mental Status: Other (Sedated). No: Alert, Normal Affect, Normal Mood - Problem List & Annotations (1) Perforation of sigmoid colon SNOMED Code(s): 176715004 Code(s): K63.1 - PERFORATION OF INTESTINE (NONTRAUMATIC) Status: Acute Current Visit: Yes - Problem List Review Problem List Initiated/Reviewed/Updated: Yes - My Orders Last 24 Hours: Active Orders 24 hr Category Date Time Status CXR [Chest 1V Frontal] [CR] DAILY Exams 03/22/18 05:00 Taken CXR [Chest 1V Frontal] [CR] DAILY Exams 03/23/18 05:00 Ordered CXR [Chest 1V Frontal] [CR] DAILY Exams 03/24/18 05:00 Ordered BASIC METABOLIC PANEL,BMP [CHEM] Stat Lab 03/22/18 18:00 Ordered BLOOD GAS ARTERIAL [BG] Stat Lab 03/22/18 18:00 Ordered CBC WITH AUTO DIFF [HEME] Timed Lab 03/23/18 05:00 Ordered COMPREHENSIVE METABOLIC PN,CMP [CHEM] Timed Lab 03/23/18 05:00 Ordered LACTIC ACID [CHEM] Timed Lab 03/23/18 05:00 Ordered MAGNESIUM [CHEM] Timed Lab 03/23/18 05:00 Ordered VANCOMYCIN TROUGH [CHEM] Timed Lab 03/23/18 09:30 Ordered Heparin Sodium [Heparin Lock Flush 100 Units/ML] Med 03/22/18 12:16 Active 500 units FLUSH ASDIRECTED PRN Potassium Chloride [KCL 20 MEQ in Water 100 ML] 20 meq Med 03/22/18 13:30 Active Premix Bag 1 bag IV Q2H Medication Orders Heparin Sodium (Porcine) (Heparin Lock Flush 100 Units/Ml) 500 units FLUSH ASDIRECTED PRN PRN Reason: IV Use Last Admin: 03/22/18 12:28 Dose: 500 units Propofol (Diprivan 100 Ml) 100 mls @ 2.082 mls/hr IV TITRATE [facility]; Protocol Last Admin: 03/22/18 06:58 Dose: 30 mcg/kg/min, 12.492 mls/hr Titration: 03/22/18 06:58 Dose: 30 mcg/kg/min, 12.492 mls/hr Admin: 03/22/18 00:19 Dose: 30 mcg/kg/min, 12.492 mls/hr Titration: 03/21/18 23:46 Dose: 30 mcg/kg/min, 12.492 mls/hr Titration: 03/21/18 22:00 Dose: 30 mcg/kg/min, 12.492 mls/hr Titration: 03/21/18 21:45 Dose: 25 mcg/kg/min, 10.41 mls/hr Admin: 03/21/18 13:55 Dose: 23 mcg/kg/min, 9.577 mls/hr Titration: 03/21/18 13:55 Dose: 23 mcg/kg/min, 9.577 mls/hr Admin: 03/21/18 04:59 Dose: 23 mcg/kg/min, 9.577 mls/hr Titration: 03/21/18 04:59 Dose: 23 mcg/kg/min, 9.577 mls/hr Admin: 03/20/18 19:28 Dose: 23 mcg/kg/min, 9.577 mls/hr Titration: 03/20/18 19:28 Dose: 23 mcg/kg/min, 9.577 mls/hr Titration: 03/20/18 11:48 Dose: 23 mcg/kg/min, 9.577 mls/hr Admin: 03/20/18 09:35 Dose: 20 mcg/kg/min, 8.328 mls/hr Titration: 03/20/18 09:35 Dose: 20 mcg/kg/min, 8.328 mls/hr Admin: 03/19/18 22:55 Dose: 20 mcg/kg/min, 8.328 mls/hr Titration: 03/19/18 20:57 Dose: 20 mcg/kg/min, 8.328 mls/hr Admin: 03/19/18 08:56 Dose: 20 mcg/kg/min, 8.328 mls/hr Titration: 03/19/18 08:56 Dose: 25 mcg/kg/min, 10.41 mls/hr Titration: 03/19/18 06:13 Dose: 25 mcg/kg/min, 10.41 mls/hr Titration: 03/19/18 00:26 Dose: 20 mcg/kg/min, 8.328 mls/hr Titration: 03/18/18 23:29 Dose: 10 mcg/kg/min, 4.164 mls/hr Titration: 03/18/18 23:18 Dose: 15 mcg/kg/min, 6.246 mls/hr Admin: 03/18/18 22:49 Dose: 5 mcg/kg/min, 2.082 mls/hr Meropenem 1 gm/ Sodium (Chloride) 50 mls @ 100 mls/hr IV Q12H [facility] Last Admin: 03/22/18 08:09 Dose: 100 mls/hr Admin: 03/21/18 20:34 Dose: 100 mls/hr Admin: 03/21/18 09:04 Dose: 100 mls/hr Admin: 03/20/18 20:49 Dose: 100 mls/hr Admin: 03/20/18 08:04 Dose: 100 mls/hr Admin: 03/19/18 20:25 Dose: 100 mls/hr Admin: 03/19/18 08:12 Dose: 100 mls/hr Aztreonam/Dextrose 1 gm/ (Premix) 50 mls @ 100 mls/hr IV Q8H [facility] Last Admin: 03/22/18 14:00 Dose: 100 mls/hr Admin: 03/22/18 04:24 Dose: 100 mls/hr Admin: 03/21/18 20:38 Dose: 100 mls/hr Admin: 03/21/18 12:26 Dose: 100 mls/hr Admin: 03/21/18 04:59 Dose: 100 mls/hr Admin: 03/20/18 21:31 Dose: 100 mls/hr Admin: 03/20/18 13:28 Dose: 100 mls/hr Admin: 03/20/18 05:34 Dose: 100 mls/hr Admin: 03/19/18 21:01 Dose: 100 mls/hr Admin: 03/19/18 14:26 Dose: 100 mls/hr Norepinephrine Bitartrate 8 mg (/ Dextrose/Water) 250 mls @ 3.75 mls/hr IV TITRATE [facility]; Protocol Last Admin: 03/22/18 12:30 Dose: 12 mcg/min, 22.5 mls/hr Titration: 03/22/18 12:02 Dose: 12 mcg/min, 22.5 mls/hr Admin: 03/22/18 00:55 Dose: 12 mcg/min, 22.5 mls/hr Titration: 03/21/18 23:42 Dose: 12 mcg/min, 22.5 mls/hr Titration: 03/21/18 14:56 Dose: 12 mcg/min, 22.5 mls/hr Titration: 03/21/18 14:46 Dose: 11 mcg/min, 20.62 mls/hr Titration: 03/21/18 13:29 Dose: 10 mcg/min, 18.75 mls/hr Admin: 03/21/18 11:55 Dose: 9 mcg/min, 16.87 mls/hr Titration: 03/21/18 11:46 Dose: 10 mcg/min, 18.75 mls/hr Titration: 03/21/18 11:25 Dose: 11 mcg/min, 20.62 mls/hr Admin: 03/21/18 00:35 Dose: 12 mcg/min, 22.5 mls/hr Titration: 03/20/18 22:55 Dose: 12 mcg/min, 22.5 mls/hr Admin: 03/20/18 11:48 Dose: 12 mcg/min, 22.5 mls/hr Titration: 03/20/18 10:45 Dose: 12 mcg/min, 22.5 mls/hr Admin: 03/19/18 23:38 Dose: 12 mcg/min, 22.5 mls/hr Vancomycin HCl 1.25 gm/ Sodium (Chloride) 250 mls @ 170 mls/hr IV Q24H [facility] Last Admin: 03/22/18 10:06 Dose: 170 mls/hr Admin: 03/21/18 10:07 Dose: 170 mls/hr Vasopressin 40 units/ Dextrose (/Water) 100 mls @ 3 mls/hr IV TITRATE [facility]; Protocol Last Admin: 03/22/18 10:06 Dose: 0.02 units/min, 3 mls/hr Titration: 03/22/18 10:06 Dose: 0.02 units/min, 3 mls/hr Titration: 03/22/18 04:00 Dose: 0.02 units/min, 3 mls/hr Titration: 03/22/18 01:15 Dose: 0.03 units/min, 4.5 mls/hr Titration: 03/21/18 21:30 Dose: 0.02 units/min, 3 mls/hr Titration: 03/21/18 17:37 Dose: 0.03 units/min, 4.5 mls/hr Titration: 03/21/18 16:26 Dose: 0.025 units/min, 3.75 mls/hr Admin: 03/21/18 13:11 Dose: 0.02 units/min, 3 mls/hr Potassium Chloride 20 meq/ (Premix) 100 mls @ 50 mls/hr IV Q2H [facility] Stop: 03/22/18 17:29 Last Admin: 03/22/18 16:13 Dose: 50 mls/hr Infusion: 03/22/18 16:06 Dose: 50 mls/hr Admin: 03/22/18 14:06 Dose: 50 mls/hr Nystatin (Mycostatin) 5 ml PO QID [facility] Last Admin: 03/22/18 10:06 Dose: 5 ml Admin: 03/22/18 05:43 Dose: 5 ml Admin: 03/21/18 22:20 Dose: 5 ml Admin: 03/21/18 16:31 Dose: 5 ml Admin: 03/21/18 10:06 Dose: 5 ml Pantoprazole Sodium (Protonix Iv) 40 mg IVPUSH DAILY [facility] Last Admin: 03/22/18 10:06 Dose: 40 mg Admin: 03/21/18 10:06 Dose: 40 mg Admin: 03/20/18 09:39 Dose: 40 mg Admin: 03/19/18 10:47 Dose: 40 mg - Assessment Assessment (Free Text/Narrative):: WBC up, still on FiO2 of 35%. Wound not appropriate for closure. Critical condition. - Plan Plan (Free Text/Narrative):: Follow.
[2018-03-22] MEDS ORDERED: Potassium Chloride Riders 40 MEQ in Premix Bag 1 BAG IV ONE (21:25)
[2018-03-22] MEDS: Potassium Chloride 100 ML IV SCH (22:37)
[2018-03-23] MEDS: Potassium Chloride 100 ML IV SCH (00:53)
[2018-03-23] MEDS: Norepinephrine 8 MG in Dextrose 5% in Water 242 ML IV SCH ×4 (01:37→16:38)
[2018-03-23] MEDS: Aztreonam/Dextrose-Water 1 GM in Premix Bag 1 BAG IV SCH ×3 (04:37→20:55)
[2018-03-23] MEDS: Nystatin Susp 100,000 Unit/ML 5 ML UD Cup PO SCH ×4 (06:21→22:44)
[2018-03-23] MEDS: Pantoprazole 40 MG Vial IVPUSH SCH (09:09)
--- NOTE | 2018-03-23 09:40 | PCM.PN ---
- General Info Date of Service: 03/23/18 Subjective Update: there were no acute events overnight. The patient remains intubated and sedated. Vasopressin has been weaned off. Norepinephrine dosing is down to 9 g. Ventilator support has been minimal and he is requiring only 30% FiO2. Heart rate and blood pressure have been stable. Kidney function slightly better again today. Intra-abdominal cultures growing 2 different strains of Escherichia coli , both sensitive to the aztreonam and meropenem. White blood cell count is little better today. Functional Status: Reports: Other (intubated and sedated ) - Review of Systems General: Denies: Fever - Patient Data Vitals - Most Recent: Last Vital Signs Temp 36.0 C 03/23/18 08:36 Pulse 60 03/23/18 09:00 Resp 19 03/23/18 09:00 BP 101/41 L 03/23/18 09:00 Pulse Ox 100 03/23/18 09:00 Weight - Most Recent: 69.4 kg I&O - Last 24 Hours: Intake & Output 03/22/18 03/23/18 03/23/18 22:59 06:59 14:59 Intake Total 908 150 50 Output Total 650 960 230 Balance 258 -810 -180 Lab Results Last 24 Hours: Laboratory Results - last 24 hr 03/22/18 03/22/18 03/23/18 Range/Units 18:00 18:00 04:55 WBC 20.1 H (4.5-11.0) K/uL RBC 3.55 L (4.30-5.90) M/uL Hgb 10.7 L (12.0-15.0) g/dL Hct 31.7 L (40.0-54.0) % MCV 89 (80-98) fL MCH 30 (27-31) pg MCHC 34 (32-36) % Plt Count 80 L (150-400) K/uL Neut % (Auto) 93 H (36-66) % Lymph % (Auto) 4 L (24-44) % Brooks % (Auto) 3 (2-6) % Eos % (Auto) 1 L (2-4) % Baso % (Auto) 0 (0-1) % Puncture Site A-line ABG pH 7.457 H (7.350-7.450) ABG pCO2 28.0 L (35.0-42.0) mmHg ABG pO2 69.5 L (75.0-100.0) mmHg ABG HCO3 19.5 L (22.0-26.0) mmol/L ABG Total CO2 17.8 L (23.0-27.0) mmol/L ABG O2 Saturation 93.4 L (95.0-98.0) % ABG O2 Content 13.5 L (15.0-23.0) %vol ABG Base Excess -3.1 mm/L ABG Hemoglobin 10.4 L (13.5-18.0) g/dL ABG Oxyhemoglobin 91.9 % ABG Carboxyhemoglobin 1.0 (0.0-1.6) % ABG Methemoglobin 0.6 % Craig Test Not performed O2 Delivery Device Ventilator Sodium 134 L (140-148) mmol/L Potassium 3.4 L (3.6-5.2) mmol/L Chloride 102 (100-108) mmol/L Carbon Dioxide 21 (21-32) mmol/L Anion Gap 14.4 H (5.0-14.0) mmol/L BUN 45 H (7-18) mg/dL Creatinine 1.6 H (0.8-1.3) mg/dL Est Cr Clr Drug Dosing 37.20 mL/min Estimated GFR (MDRD) 42 L (>60) Glucose 110 H (74-106) mg/dL Lactic Acid (0.4-2.0) mmol/L Calcium 7.3 L (8.5-10.1) mg/dL Magnesium (1.8-2.4) mg/dL Total Bilirubin (0.2-1.0) mg/dL AST (15-37) U/L ALT (12-78) U/L Alkaline Phosphatase (46-116) U/L Total Protein (6.4-8.2) g/dL Albumin (3.4-5.0) g/dL Globulin (2.3-3.5) g/dL Albumin/Globulin Ratio (1.2-2.2) 03/23/18 03/23/18 Range/Units 04:55 04:55 WBC (4.5-11.0) K/uL RBC (4.30-5.90) M/uL Hgb (12.0-15.0) g/dL Hct (40.0-54.0) % MCV (80-98) fL MCH (27-31) pg MCHC (32-36) % Plt Count (150-400) K/uL Neut % (Auto) (36-66) % Lymph % (Auto) (24-44) % Brooks % (Auto) (2-6) % Eos % (Auto) (2-4) % Baso % (Auto) (0-1) % Puncture Site ABG pH (7.350-7.450) ABG pCO2 (35.0-42.0) mmHg ABG pO2 (75.0-100.0) mmHg ABG HCO3 (22.0-26.0) mmol/L ABG Total CO2 (23.0-27.0) mmol/L ABG O2 Saturation (95.0-98.0) % ABG O2 Content (15.0-23.0) %vol ABG Base Excess mm/L ABG Hemoglobin (13.5-18.0) g/dL ABG Oxyhemoglobin % ABG Carboxyhemoglobin (0.0-1.6) % ABG Methemoglobin % Craig Test O2 Delivery Device Sodium 135 L (140-148) mmol/L Potassium 3.4 L (3.6-5.2) mmol/L Chloride 104 (100-108) mmol/L Carbon Dioxide 20 L (21-32) mmol/L Anion Gap 14.4 H (5.0-14.0) mmol/L BUN 43 H (7-18) mg/dL Creatinine 1.5 H (0.8-1.3) mg/dL Est Cr Clr Drug Dosing 39.68 mL/min Estimated GFR (MDRD) 46 L (>60) Glucose 101 (74-106) mg/dL Lactic Acid 1.3 (0.4-2.0) mmol/L Calcium 7.3 L (8.5-10.1) mg/dL Magnesium 2.1 (1.8-2.4) mg/dL Total Bilirubin 0.5 (0.2-1.0) mg/dL AST 94 H (15-37) U/L ALT 41 (12-78) U/L Alkaline Phosphatase 91 (46-116) U/L Total Protein 4.5 L (6.4-8.2) g/dL Albumin 1.1 L (3.4-5.0) g/dL Globulin 3.4 (2.3-3.5) g/dL Albumin/Globulin Ratio 0.3 L (1.2-2.2) Dante Results Last 24 Hours: Microbiology 03/18/18 18:45 Aerobic Blood Culture - Preliminary Blood - Venous NO GROWTH AFTER 4 DAYS Anaerobic Blood Culture - Preliminary NO GROWTH AFTER 4 DAYS 03/18/18 18:55 Aerobic Blood Culture - Final Blood - Venous - Lab Draw Escherichia Coli Escherichia Coli#2 Anaerobic Blood Culture - Preliminary NO GROWTH AFTER 4 DAYS 03/18/18 20:59 Gram Stain - Final Peritoneal Fluid Wound Culture - Final Escherichia Coli Escherichia Coli#2 Anaerobic Culture - Final NO GROWTH AFTER 3 DAYS Med Orders - Current: Current Medications Heparin Sodium (Porcine) (Heparin Lock Flush 100 Units/Ml) 500 units FLUSH ASDIRECTED PRN PRN Reason: IV Use Last Admin: 03/22/18 12:28 Dose: 500 units Propofol (Diprivan 100 Ml) 100 mls @ 2.082 mls/hr IV TITRATE [facility]; Protocol Last Admin: 03/23/18 04:37 Dose: 30 mcg/kg/min, 12.492 mls/hr Meropenem 1 gm/ Sodium (Chloride) 50 mls @ 100 mls/hr IV Q12H [facility] Last Admin: 03/23/18 07:50 Dose: 100 mls/hr Aztreonam/Dextrose 1 gm/ (Premix) 50 mls @ 100 mls/hr IV Q8H [facility] Last Admin: 03/23/18 04:37 Dose: 100 mls/hr Norepinephrine Bitartrate 8 mg (/ Dextrose/Water) 250 mls @ 3.75 mls/hr IV TITRATE [facility]; Protocol Last Titration: 03/23/18 09:03 Dose: 9 mcg/min, 16.87 mls/hr Vancomycin HCl 1.25 gm/ Sodium (Chloride) 250 mls @ 170 mls/hr IV Q24H [facility] Last Admin: 03/22/18 10:06 Dose: 170 mls/hr Nystatin (Mycostatin) 5 ml PO QID [facility] Last Admin: 03/23/18 09:09 Dose: 5 ml Pantoprazole Sodium (Protonix Iv) 40 mg IVPUSH DAILY [facility] Last Admin: 03/23/18 09:09 Dose: 40 mg Discontinued Medications Dexamethasone (Dexamethasone) Confirm Administered Dose 4 mg .ROUTE .STK-MED ONE Stop: 03/18/18 19:48 Epinephrine HCl (Adrenalin) Confirm Administered Dose 1 mg .ROUTE .[facility]-MED ONE Stop: 03/18/18 21:07 Fentanyl (Sublimaze) Confirm Administered Dose 250 mcg .ROUTE .STK-MED ONE Stop: 03/18/18 19:48 Glycopyrrolate (Robinul) Confirm Administered Dose 1 mg .ROUTE .ST-MED ONE Stop: 03/18/18 19:48 Heparin Sodium (Porcine) (Heparin Sodium) Confirm Administered Dose 5,000 units .ROUTE .STK-MED ONE Stop: 03/18/18 19:51 Heparin Sodium (Porcine) (Heparin Lock Flush 100 Units/Ml) Confirm Administered Dose 500 units .ROUTE .[facility]-MED ONE Stop: 03/22/18 12:17 Last Admin: 03/22/18 12:30 Dose: Not Given Hydromorphone HCl (Dilaudid) 0.5 mg IVPUSH ONETIME ONE Stop: 03/18/18 17:43 Last Admin: 03/18/18 17:47 Dose: 0.5 mg Hydromorphone HCl (Dilaudid) 1 mg IVPUSH ONETIME ONE Stop: 03/18/18 18:18 Last Admin: 03/18/18 18:27 Dose: 1 mg Sodium Chloride (Normal Saline) 1,000 mls @ 1,000 mls[facility]hr [facility] Last Admin: 03/18/18 17:47 Dose: 1,000 mls/hr Sodium Chloride (Normal Saline) 1,000 mls @ 999 mls/hr [facility] Last Admin: 03/18/18 19:31 Dose: 999 mls/hr Meropenem 500 mg/ Sodium (Chloride) 50 mls @ 100 mls/hr IV ONETIME ONE Stop: 03/18/18 19:09 Last Admin: 03/18/18 19:01 Dose: 100 mls/hr Sodium Chloride (Normal Saline) Confirm Administered Dose 50 mls @ as directed .ROUTE .[facility]-MED ONE Stop: 03/18/18 19:40 Last Admin: 03/18/18 20:19 Dose: Not Given Aztreonam 2 gm/ Sodium (Chloride) 50 mls @ 100 mls/hr IV ONETIME ONE Stop: 03/18/18 20:01 Last Admin: 03/18/18 20:44 Dose: 100 mls/hr Meropenem 500 mg/ Sodium (Chloride) 50 mls @ 100 mls/hr IV ONETIME ONE Stop: 03/18/18 20:00 Last Admin: 03/18/18 19:40 Dose: 100 mls/hr Sodium Chloride (Normal Saline) Confirm Administered Dose 250 mls @ as directed .ROUTE .[facility] ONE Stop: 03/18/18 19:59 Lactated Ringer's (Ringers, Lactated) Confirm Administered Dose 1,000 mls @ as directed .ROUTE .[facility] ONE Stop: 03/18/18 19:59 Sodium Chloride (Normal Saline) Confirm Administered Dose 500 mls @ as directed .ROUTE .[facility] ONE Stop: 03/18/18 19:59 Norepinephrine Bitartrate 8 mg (/ Dextrose/Water) 258 mls @ 3.87 mls/hr IV TITRATE [facility]; Protocol Last Admin: 03/19/18 11:45 Dose: 12 mcg/min, 23.22 mls/hr Lactated Ringer's (Ringers, Lactated) Confirm Administered Dose 1,000 mls @ as directed .ROUTE .[facility] ONE Stop: 03/18/18 21:42 Aztreonam 1 gm/ Sodium (Chloride) 50 mls @ 100 mls/hr IV Q8H [facility] Last Admin: 03/19/18 05:29 Dose: 100 mls/hr Potassium Chloride/Dextrose/Sod Cl (D5 1/2 Ns W/ 20 Meq/L Kcl) 1,000 mls @ 150 mls/hr IV ASDIRECTED [facility] Last Admin: 03/18/18 23:11 Dose: 150 mls/hr Lactated Ringer's (Ringers, Lactated) 1,000 mls @ 500 mls/hr IV ASDIRECTED [facility] Last Admin: 03/19/18 01:23 Dose: 500 mls/hr Vasopressin 100 units/ (Dextrose/Water) 255 mls @ 1.53 mls/hr IV TITRATE [facility]; Protocol Stop: 03/21/18 13:00 Last Titration: 03/21/18 11:03 Dose: 0.02 units/min, 3.06 mls/hr Lactated Ringer's (Ringers, Lactated) 1,000 mls @ 500 mls/hr IV BOLUS [facility] Stop: 03/19/18 05:29 Last Admin: 03/19/18 04:02 Dose: 500 mls/hr Lactated Ringer's (Ringers, Lactated) 1,000 mls @ 500 mls/hr IV .[facility] ONE Stop: 03/19/18 14:59 Last Admin: 03/19/18 14:27 Dose: 500 mls/hr Lactated Ringer's (Ringers, Lactated) 1,000 mls @ 150 mls/hr IV ASDIRECTED [facility] Last Admin: 03/21/18 11:53 Dose: 150 mls/hr Magnesium Sulfate 2 gm/ Premix 50 mls @ 25 mls/hr IV Q6H [facility] Stop: 03/20/18 17:59 Last Admin: 03/20/18 16:30 Dose: 25 mls/hr Vasopressin 40 units/ Dextrose (/Water) 100 mls @ 3 mls/hr IV TITRATE [facility]; Protocol Last Titration: 03/23/18 01:00 Dose: 0 units/min, 0 mls/hr Potassium Chloride 20 meq/ (Premix) 100 mls @ 50 mls/hr IV Q2H [facility] Stop: 03/21/18 22:59 Last Admin: 03/21/18 22:20 Dose: 50 mls/hr Potassium Chloride 20 meq/ (Premix) 100 mls @ 50 mls/hr IV Q2H [facility] Stop: 03/22/18 12:59 Last Admin: 03/22/18 11:30 Dose: 50 mls/hr Potassium Chloride 20 meq/ (Premix) 100 mls @ 50 mls/hr IV Q2H [facility] Stop: 03/22/18 17:29 Last Admin: 03/22/18 16:13 Dose: 50 mls/hr Potassium Chloride (Kcl 20 Meq In Water 100 Ml) 100 mls @ 50 mls/hr IV Q2H [facility] Stop: 03/23/18 01:59 Last Admin: 03/23/18 00:53 Dose: 50 mls/hr Meropenem (Merrem) Confirm Administered Dose 500 mg .ROUTE .STK-MED ONE Stop: 03/18/18 19:40 Last Admin: 03/18/18 20:19 Dose: Not Given Neostigmine Methylsulfate (Neostigmine) Confirm Administered Dose 5 mg .ROUTE .STK-MED ONE Stop: 03/18/18 19:48 Ondansetron HCl (Zofran) 4 mg IVPUSH ONETIME ONE Stop: 03/18/18 18:18 Last Admin: 03/18/18 18:27 Dose: 4 mg Ondansetron HCl (Zofran) Confirm Administered Dose 4 mg .ROUTE .STK-MED ONE Stop: 03/18/18 19:48 Phenylephrine HCl (Isaías-Synephrine) Confirm Administered Dose 10 mg .ROUTE .STK- MED ONE Stop: 03/18/18 20:05 Propofol (Diprivan 20 Ml) Confirm Administered Dose 200 mg .ROUTE .STK-MED ONE Stop: 03/18/18 19:48 Rocuronium [place] (Zemuron) Confirm Administered Dose 50 mg .ROUTE .STK-MED ONE Stop: 03/18/18 19:48 Succinylcholine Chloride (Quelicin) Confirm Administered Dose 200 mg .ROUTE .STK -MED ONE Stop: 03/18/18 19:48 Vancomycin HCl (Vancomycin) 1 gm IV .PHARMACY TO DOSE [facility] Stop: 03/21/18 16:00 - Exam Quality Assessment: Supplemental Oxygen, Central Line/PICC, Urine Catheter, DVT Prophylaxis, Restraints General: No Acute Distress, Sedated. No: Alert Neck: Supple, Trachea Midline Lungs: Clear to Auscultation, Normal Respiratory Effort, Decreased Breath Sounds (left lung base) Cardiovascular: Regular Rate, Regular Rhythm, No Murmurs GI/Abdominal Exam: Soft, No Distention, Abnormal Bowel Sounds (hypoactive) Extremities: No Pedal Edema, Other (pitting edema both arms). No: Increased Warmth Skin: Warm, Dry Psy/Mental Status: No: Alert, Agitated - Problem List Review Problem List Initiated/Reviewed/Updated: Yes - My Orders Last 24 Hours: My Active Orders 03/23/18 09:38 Furosemide [Lasix] 20 mg IVPUSH ONETIME ONE 03/24/18 05:00 BASIC METABOLIC PANEL,BMP [CHEM] Timed BLOOD GAS ARTERIAL [BG] Timed CBC W/O DIFF,HEMOGRAM [HEME] Timed (1) - Plan Plan:: ASSESSMENT AND PLAN SIGMOID COLON PERFORATION RESULTING IN ACUTE ABDOMEN AND SEPTIC SHOCK - status post exploratory laparotomy with partial sigmoid colon resection and creation of a colostomy. Remains critically ill with septic shock and respiratory compromise. white blood cell count finally trending down. He has not had any fevers. still requiring vasopressor support. -IV vancomycin, meropenem and Azactam (will likely discontinue vancomycin tomorrow if no gram-positive organisms are present in cultures) -Post operative surgical care per Dr. Adams -Possible delayed primary closure today SEPTIC SHOCK - secondary to intestinal perforation, solid and liquid stool noted throughout the abdominal cavity at the time of surgery. still requiring vasopressors to maintain blood pressure support but use has been decreasing. White blood cell count is trending down. -Antibiotic therapy as above -Maintenance fluid infusion was discontinued yesterday -Continue ongoing use of IV norepinephrine for support of blood pressure, continue to work on taper as able ACUTE HYPOXIC RESPIRATORY FAILURE - secondary to septic shock, colon perforation , recent surgery and underlying COPD. Ventilator support minimal at this time. -Continue mechanical ventilation until he is more hemodynamically stable COPD - [id number] smoking history but no evidence for exacerbation at this time. -Nebulized albuterol as needed -Vigorous pulmonary toilet during the postoperative period ACUTE KIDNEY INJURY - slow and steady improvement in renal function and urine output. There is some evidence for volume overload at this time. -Dose of furosemide this morning -Closely monitor urine output and renal function during the postoperative period HISTORY OF LUNG AND PROSTATE CARCINOMA - lung cancer felt to be stable, currently receiving active treatment for management of prostate carcinoma MAINTENANCE ISSUES -DVT prophylaxis; SCUDs -GI prophylaxis; Protonix 40 mg IV daily during postoperative period -Sorto catheter; patient remains critically ill and catheter remains necessary for strict intake and output monitoring -Nutrition; nothing by mouth, plan to start TPN today DISPOSITION - anticipate discharge to [facility] if he survives the hospital stay Stephon Christy M.D.
[2018-03-23] MEDS ORDERED: Furosemide 20 MG/2 ML VIAL IVPUSH ONE (09:45)
[2018-03-23] MEDS ORDERED: Potassium Chloride 40 MEQ/20 ML SDV IV ONE (10:00)
[2018-03-23] MEDS ORDERED: Potassium Chloride Riders 40 MEQ in Premix Bag 1 BAG IV ONE (10:30)
--- NOTE | 2018-03-23 10:46 | CR ---
CHEST: Portable CLINICAL HISTORY:Endotracheal intubation COMPARISON:03/20/2018 FINDINGS: The endotracheal tube is in the midtrachea. Heart size and pulmonary vascularity are normal. There is increasing lung markings in both lung bases. Impression: Endotracheal tube and PICC line remain in place Increasing lung markings in both lung bases may represent pneumonic infiltrate
--- NOTE | 2018-03-23 10:51 | CR ---
CHEST: Portable CLINICAL HISTORY:Intubation COMPARISON:03/21/2018 FINDINGS: Endotracheal tube and PICC line remain in place. There is improved aeration at the right lung base. There is persistent density at the left lung base and poor definition of the hemidiaphragm. Impression: Improved aeration the right right lung base Increased to density in the left lung base may represent infiltrate as well as patchy atelectasis with a small left effusion
--- NOTE | 2018-03-23 10:54 | CR ---
CHEST: Portable CLINICAL HISTORY:Intubation COMPARISON:03/22/2018 FINDINGS: There is improved aeration of both lung bases with some chronic interstitial changes bilaterally. There is a left pleural effusion. Endotracheal tube and PICC line remain in place. Impression: Chronic interstitial changes in both lower lobes with improved aeration when compared to prior recent study Small left pleural effusion .
[2018-03-23] MEDS: Vancomycin 1.4 GM in Sodium Chloride 0.9% 250 ML IV SCH (11:42)
[2018-03-23] MEDS: 1: AA 5%/Calcium/D15W/Lytes 1,000 ML with MVI, Adult with Vitamin K 10 ML, Chromium/Copp IV SCH ×3 (14:08)
--- NOTE | 2018-03-23 20:50 | PCM.SURGPN ---
- General Info Date of Service: 03/23/18 Date of Surgery/Procedure: 03/23/18 POD#: 5 Post-Op Diagnosis: Sigmoid perforation, H[place] IV Admission Diagnosis/Problem: Perforation of sigmoid colon Functional Status: Reports: Pain Controlled, Urinating (Sorto), Other ( Ventilator, sedated. ). Denies: Tolerating Diet, Ambulating, Incentive Spirometry - Patient Data Vitals - Most Recent: Last Vital Signs Temp 97.7 F 03/23/18 19:00 Pulse 85 03/23/18 19:00 Resp 21 H 03/23/18 19:00 BP 104/42 L 03/23/18 19:00 Pulse Ox 100 03/23/18 19:00 Weight - Most Recent: 153 lb 0.013 oz I&O - Last 24 Hours: Intake & Output 03/23/18 03/23/18 03/23/18 06:59 14:59 22:59 Intake Total 150 50 720 Output Total 960 1230 1585 Balance -810 -1180 -865 Lab Results Last 24 Hrs: Laboratory Results - last 24 hr 03/23/18 03/23/18 03/23/18 Range/Units 04:55 04:55 04:55 WBC 20.1 H (4.5-11.0) K/uL RBC 3.55 L (4.30-5.90) M/uL Hgb 10.7 L (12.0-15.0) g/dL Hct 31.7 L (40.0-54.0) % MCV 89 (80-98) fL MCH 30 (27-31) pg MCHC 34 (32-36) % Plt Count 80 L (150-400) K/uL Neut % (Auto) 93 H (36-66) % Lymph % (Auto) 4 L (24-44) % Amador % (Auto) 3 (2-6) % Eos % (Auto) 1 L (2-4) % Baso % (Auto) 0 (0-1) % Sodium 135 L (140-148) mmol/L Potassium 3.4 L (3.6-5.2) mmol/L Chloride 104 (100-108) mmol/L Carbon Dioxide 20 L (21-32) mmol/L Anion Gap 14.4 H (5.0-14.0) mmol/L BUN 43 H (7-18) mg/dL Creatinine 1.5 H (0.8-1.3) mg/dL Est Cr Clr Drug Dosing 39.68 mL/min Estimated GFR (MDRD) 46 L (>60) Glucose 101 (74-106) mg/dL Lactic Acid 1.3 (0.4-2.0) mmol/L Calcium 7.3 L (8.5-10.1) mg/dL Magnesium 2.1 (1.8-2.4) mg/dL Total Bilirubin 0.5 (0.2-1.0) mg/dL AST 94 H (15-37) U/L ALT 41 (12-78) U/L Alkaline Phosphatase 91 (46-116) U/L Total Protein 4.5 L (6.4-8.2) g/dL Albumin 1.1 L (3.4-5.0) g/dL Globulin 3.4 (2.3-3.5) g/dL Albumin/Globulin Ratio 0.3 L (1.2-2.2) Vancomycin Trough (10.0-20.0) ug/mL 03/23/18 Range/Units 09:32 WBC (4.5-11.0) K/uL RBC (4.30-5.90) M/uL Hgb (12.0-15.0) g/dL Hct (40.0-54.0) % MCV (80-98) fL MCH (27-31) pg MCHC (32-36) % Plt Count (150-400) K/uL Neut % (Auto) (36-66) % Lymph % (Auto) (24-44) % Amador % (Auto) (2-6) % Eos % (Auto) (2-4) % Baso % (Auto) (0-1) % Sodium (140-148) mmol/L Potassium (3.6-5.2) mmol/L Chloride (100-108) mmol/L Carbon Dioxide (21-32) mmol/L Anion Gap (5.0-14.0) mmol/L BUN (7-18) mg/dL Creatinine (0.8-1.3) mg/dL Est Cr Clr Drug Dosing mL/min Estimated GFR (MDRD) (>60) Glucose (74-106) mg/dL Lactic Acid (0.4-2.0) mmol/L Calcium (8.5-10.1) mg/dL Magnesium (1.8-2.4) mg/dL Total Bilirubin (0.2-1.0) mg/dL AST (15-37) U/L ALT (12-78) U/L Alkaline Phosphatase (46-116) U/L Total Protein (6.4-8.2) g/dL Albumin (3.4-5.0) g/dL Globulin (2.3-3.5) g/dL Albumin/Globulin Ratio (1.2-2.2) Vancomycin Trough 13.1 (10.0-20.0) ug/mL Dante Results Last 24 Hrs: Microbiology 03/18/18 18:45 Aerobic Blood Culture - Final Blood - Venous NO GROWTH AFTER 5 DAYS Anaerobic Blood Culture - Final NO GROWTH AFTER 5 DAYS 03/18/18 18:55 Aerobic Blood Culture - Final Blood - Venous - Lab Draw Escherichia Coli Escherichia Coli#2 Anaerobic Blood Culture - Final NO GROWTH AFTER 5 DAYS Med Orders - Current: Current Medications Heparin Sodium (Porcine) (Heparin Lock Flush 100 Units/Ml) 500 units FLUSH ASDIRECTED PRN PRN Reason: IV Use Last Admin: 03/22/18 12:28 Dose: 500 units Propofol (Diprivan 100 Ml) 100 mls @ 2.082 mls/hr IV TITRATE [facility]; Protocol Last Admin: 03/23/18 19:30 Dose: 30 mcg/kg/min, 12.492 mls/hr Meropenem 1 gm/ Sodium (Chloride) 50 mls @ 100 mls/hr IV Q12H [facility] Last Admin: 03/23/18 20:02 Dose: 100 mls/hr Aztreonam/Dextrose 1 gm/ (Premix) 50 mls @ 100 mls/hr IV Q8H [facility] Last Admin: 03/23/18 14:04 Dose: 100 mls/hr Norepinephrine Bitartrate 8 mg (/ Dextrose/Water) 250 mls @ 3.75 mls/hr IV TITRATE [facility]; Protocol Last Admin: 03/23/18 16:38 Dose: 12 mcg/min, 22.5 mls/hr Vancomycin HCl 1.4 gm/ Sodium (Chloride) 250 mls @ 170 mls/hr IV Q24H [facility] Last Admin: 03/23/18 11:42 Dose: 170 mls/hr Multivitamins/Minerals 10 ml/Chromium/Copper/Manganese/Seleni/Zn 1 ml/ Amino Ac/ Electrol/Dextrose/Calcium 1,011 mls @ 75 mls/hr IV .BY DURATION [facility] Last Admin: 03/23/18 14:08 Dose: 75 mls/hr Amino Ac/Electrol/Dextrose/Calcium (Clinimix E 5/15) 1,000 mls @ 75 mls/hr IV .BY DURATION [facility] Nystatin (Mycostatin) 5 ml PO QID [facility] Last Admin: 03/23/18 17:37 Dose: 5 ml Pantoprazole Sodium (Protonix Iv) 40 mg IVPUSH DAILY [facility] Last Admin: 03/23/18 09:09 Dose: 40 mg Discontinued Medications Dexamethasone (Dexamethasone) Confirm Administered Dose 4 mg .ROUTE .STK-MED ONE Stop: 03/18/18 19:48 Epinephrine HCl (Adrenalin) Confirm Administered Dose 1 mg .ROUTE .STK-MED ONE Stop: 03/18/18 21:07 Fentanyl (Sublimaze) Confirm Administered Dose 250 mcg .ROUTE .STK-MED ONE Stop: 03/18/18 19:48 Furosemide (Lasix) 20 mg IVPUSH ONETIME ONE Stop: 03/23/18 09:46 Last Admin: 03/23/18 10:18 Dose: 20 mg Glycopyrrolate (Robinul) Confirm Administered Dose 1 mg .ROUTE .STK-MED ONE Stop: 03/18/18 19:48 Heparin Sodium (Porcine) (Heparin Sodium) Confirm Administered Dose 5,000 units .ROUTE .STK-MED ONE Stop: 03/18/18 19:51 Heparin Sodium (Porcine) (Heparin Lock Flush 100 Units/Ml) Confirm Administered Dose 500 units .ROUTE .STK-MED ONE Stop: 03/22/18 12:17 Last Admin: 03/22/18 12:30 Dose: Not Given Hydromorphone HCl (Dilaudid) 0.5 mg IVPUSH ONETIME ONE Stop: 03/18/18 17:43 Last Admin: 03/18/18 17:47 Dose: 0.5 mg Hydromorphone HCl (Dilaudid) 1 mg IVPUSH ONETIME ONE Stop: 03/18/18 18:18 Last Admin: 03/18/18 18:27 Dose: 1 mg Sodium Chloride (Normal Saline) 1,000 mls @ 1,000 mls/hr IV ASDIRECTED [facility] Last Admin: 03/18/18 17:47 Dose: 1,000 mls/hr Sodium Chloride (Normal Saline) 1,000 mls @ 999 mls/hr IV ASDIRECTED [facility] Last Admin: 03/18/18 19:31 Dose: 999 mls/hr Meropenem 500 mg/ Sodium (Chloride) 50 mls @ 100 mls/hr IV ONETIME ONE Stop: 03/18/18 19:09 Last Admin: 03/18/18 19:01 Dose: 100 mls/hr Sodium Chloride (Normal Saline) Confirm Administered Dose 50 mls @ as directed .ROUTE .[facility] ONE Stop: 03/18/18 19:40 Last Admin: 03/18/18 20:19 Dose: Not Given Aztreonam 2 gm/ Sodium (Chloride) 50 mls @ 100 mls/hr IV ONETIME ONE Stop: 03/18/18 20:01 Last Admin: 03/18/18 20:44 Dose: 100 mls/hr Meropenem 500 mg/ Sodium (Chloride) 50 mls @ 100 mls/hr IV ONETIME ONE Stop: 03/18/18 20:00 Last Admin: 03/18/18 19:40 Dose: 100 mls/hr Sodium Chloride (Normal Saline) Confirm Administered Dose 250 mls @ as directed .ROUTE .[facility] ONE Stop: 03/18/18 19:59 Lactated Ringer's (Ringers, Lactated) Confirm Administered Dose 1,000 mls @ as directed .ROUTE .[facility] ONE Stop: 03/18/18 19:59 Sodium Chloride (Normal Saline) Confirm Administered Dose 500 mls @ as directed .ROUTE .[facility] ONE Stop: 03/18/18 19:59 Norepinephrine Bitartrate 8 mg (/ Dextrose/Water) 258 mls @ 3.87 mls/hr IV TITRATE [facility]; Protocol Last Admin: 03/19/18 11:45 Dose: 12 mcg/min, 23.22 mls/hr Lactated Ringer's (Ringers, Lactated) Confirm Administered Dose 1,000 [facility]ls @ [facility] Stop: 03/18/18 21:42 Aztreonam 1 gm/ Sodium (Chloride) 50 mls @ 100 mls/hr IV Q8H [facility] Last Admin: 03/19/18 05:29 Dose: 100 mls/hr Potassium Chloride/Dextrose/Sod Cl (D5 1/2 Ns W/ 20 Meq/L Kcl) 1,000 mls @ 150 mls/hr IV ASDIRECTED [facility] Last Admin: 03/18/18 23:11 Dose: 150 mls/hr Lactated Ringer's (Ringers, Lactated) 1,000 mls @ 500 mls/hr IV ASDIRECTED [facility] Last Admin: 03/19/18 01:23 Dose: 500 mls/hr Vasopressin 100 units/ (Dextrose/Water) 255 mls @ 1.53 mls/hr IV TITRATE [facility]; Protocol Stop: 03/21/18 13:00 Last Titration: 03/21/18 11:03 Dose: 0.02 units/min, 3.06 mls/hr Lactated Ringer's (Ringers, Lactated) 1,000 mls @ 500 mls/hr IV BOLUS [facility] Stop: 03/19/18 05:29 Last Admin: 03/19/18 04:02 Dose: 500 mls/hr Lactated Ringer's (Ringers, Lactated) 1,000 mls @ 500 mls/hr IV .BOLUS ONE Stop: 03/19/18 14:59 Last Admin: 03/19/18 14:27 Dose: 500 mls/hr Lactated Ringer's (Ringers, Lactated) 1,000 mls @ 150 mls/hr IV ASDIRECTED [facility] Last Admin: 03/21/18 11:53 Dose: 150 mls/hr Magnesium Sulfate 2 gm/ Premix 50 mls @ 25 mls/hr IV Q6H [facility] Stop: 03/20/18 17:59 Last Admin: 03/20/18 16:30 Dose: 25 mls/hr Vancomycin HCl 1.25 gm/ Sodium (Chloride) 250 mls @ 170 mls/hr IV Q24H [facility] Last Admin: 03/22/18 10:06 Dose: 170 mls/hr Vasopressin 40 units/ Dextrose (/Water) 100 mls @ 3 mls/hr IV TITRATE [facility]; Protocol Last Titration: 03/23/18 01:00 Dose: 0 units/min, 0 mls/hr Potassium Chloride 20 meq/ (Premix) 100 mls @ 50 mls/hr IV Q2H [facility] Stop: 03/21/18 22:59 Last Admin: 03/21/18 22:20 Dose: 50 mls/hr Potassium Chloride 20 meq/ (Premix) 100 mls @ 50 mls/hr IV Q2H [facility] Stop: 03/22/18 12:59 Last Admin: 03/22/18 11:30 Dose: 50 mls/hr Potassium Chloride 20 meq/ (Premix) 100 mls @ 50 mls/hr IV Q2H [facility] Stop: 03/22/18 17:29 Last Admin: 03/22/18 16:13 Dose: 50 mls/hr Potassium Chloride (Kcl 20 Meq In Water 100 Ml) 100 mls @ 50 mls/hr IV Q2H [facility] Stop: 03/23/18 01:59 Last Admin: 03/23/18 00:53 Dose: 50 mls/hr Potassium Chloride 40 meq/ (Premix) 100 mls @ 25 mls/hr IV ONETIME ONE Stop: 03/23/18 14:29 Last Admin: 03/23/18 10:31 Dose: 25 mls/hr Meropenem (Merrem) Confirm Administered Dose 500 mg .ROUTE .STK-MED ONE Stop: 03/18/18 19:40 Last Admin: 03/18/18 20:19 Dose: Not Given Neostigmine Methylsulfate (Neostigmine) Confirm Administered Dose 5 mg .ROUTE .STK-MED ONE Stop: 03/18/18 19:48 Ondansetron HCl (Zofran) 4 mg IVPUSH ONETIME ONE Stop: 03/18/18 18:18 Last Admin: 03/18/18 18:27 Dose: 4 mg Ondansetron HCl (Zofran) Confirm Administered Dose 4 mg .ROUTE .STK-MED ONE Stop: 03/18/18 19:48 Phenylephrine HCl (Isaías-Synephrine) Confirm Administered Dose 10 mg .ROUTE .STK- MED ONE Stop: 03/18/18 20:05 Propofol (Diprivan 20 Ml) Confirm Administered Dose 200 mg .ROUTE .STK-MED ONE Stop: 03/18/18 19:48 Rocuronium [place] (Zemuron) Confirm Administered Dose 50 mg .ROUTE .STK-MED ONE Stop: 03/18/18 19:48 Succinylcholine Chloride (Quelicin) Confirm Administered Dose 200 mg .ROUTE .STK -MED ONE Stop: 03/18/18 19:48 Vancomycin HCl (Vancomycin) 1 gm IV .PHARMACY TO DOSE [facility] Stop: 03/21/18 16:00 - Exam Wound/Incisions: Dressing Dry and Intact Quality Assessment: Central Line/PICC, Urine Catheter, DVT Prophylaxis, Restraints General: Sedated. No: Alert, Oriented Lungs: Clear to Auscultation, Other (Ventilated. ). No: Normal Respiratory Effort Cardiovascular: Regular Rate, Regular Rhythm GI/Abdominal Exam: Abnormal Bowel Sounds (None). No: Normal Bowel Sounds Extremities: Pedal Edema Skin: Warm, Dry, Other (Wound appears to not have started to heal. Does not look well.) Neurological: Other (Sedated/ ) Psy/Mental Status: Other (Sedated.) - Problem List & Annotations (1) Perforation of sigmoid colon SNOMED Code(s): 257026456 Code(s): K63.1 - PERFORATION OF INTESTINE (NONTRAUMATIC) Status: Acute Current Visit: Yes - Problem List Review Problem List Initiated/Reviewed/Updated: Yes - My Orders Last 24 Hours: Active Orders 24 hr Category Date Time Status Antiembolic Devices [RC] .Routine Care 03/23/18 09:50 Active Communication Order [RC] Q12H Care 03/23/18 08:00 Active CXR [Chest 1V Frontal] [CR] DAILY Exams 03/24/18 05:00 Ordered BASIC METABOLIC PANEL,BMP [CHEM] Timed Lab 03/24/18 05:00 Ordered BLOOD GAS ARTERIAL [BG] Timed Lab 03/24/18 05:00 Ordered CBC W/O DIFF,HEMOGRAM [HEME] Timed (1) Lab 03/24/18 05:00 Ordered ALT Order Med 03/23/18 14:00 Active Vancomycin 1.4 gm Med 03/23/18 11:00 Active Sodium Chloride 0.9% [Normal Saline] 250 ml IV Q24H SCD [Sequential Compression Device] [OM.PC] Routine Oth 03/23/18 09:50 Ordered Medication Orders Heparin Sodium (Porcine) (Heparin Lock Flush 100 Units/Ml) 500 units FLUSH ASDIRECTED PRN PRN Reason: IV Use Last Admin: 03/22/18 12:28 Dose: 500 units Propofol (Diprivan 100 Ml) 100 mls @ 2.082 mls/hr IV TITRATE [facility]; Protocol Last Admin: 03/23/18 19:30 Dose: 30 mcg/kg/min, 12.492 mls/hr Titration: 03/23/18 18:26 Dose: 30 mcg/kg/min, 12.492 mls/hr Admin: 03/23/18 10:25 Dose: 30 mcg/kg/min, 12.492 mls/hr Titration: 03/23/18 10:25 Dose: 30 mcg/kg/min, 12.492 mls/hr Admin: 03/23/18 04:37 Dose: 30 mcg/kg/min, 12.492 mls/hr Titration: 03/23/18 04:37 Dose: 30 mcg/kg/min, 12.492 mls/hr Admin: 03/22/18 21:42 Dose: 30 mcg/kg/min, 12.492 mls/hr Titration: 03/22/18 14:59 Dose: 30 mcg/kg/min, 12.492 mls/hr Admin: 03/22/18 06:58 Dose: 30 mcg/kg/min, 12.492 mls/hr Titration: 03/22/18 06:58 Dose: 30 mcg/kg/min, 12.492 mls/hr Admin: 03/22/18 00:19 Dose: 30 mcg/kg/min, 12.492 mls/hr Titration: 03/21/18 23:46 Dose: 30 mcg/kg/min, 12.492 mls/hr Titration: 03/21/18 22:00 Dose: 30 mcg/kg/min, 12.492 mls/hr Titration: 03/21/18 21:45 Dose: 25 mcg/kg/min, 10.41 mls/hr Admin: 03/21/18 13:55 Dose: 23 mcg/kg/min, 9.577 mls/hr Titration: 03/21/18 13:55 Dose: 23 mcg/kg/min, 9.577 mls/hr Admin: 03/21/18 04:59 Dose: 23 mcg/kg/min, 9.577 mls/hr Titration: 03/21/18 04:59 Dose: 23 mcg/kg/min, 9.577 mls/hr Admin: 03/20/18 19:28 Dose: 23 mcg/kg/min, 9.577 mls/hr Titration: 03/20/18 19:28 Dose: 23 mcg/kg/min, 9.577 mls/hr Titration: 03/20/18 11:48 Dose: 23 mcg/kg/min, 9.577 mls/hr Admin: 03/20/18 09:35 Dose: 20 mcg/kg/min, 8.328 mls/hr Titration: 03/20/18 09:35 Dose: 20 mcg/kg/min, 8.328 mls/hr Admin: 03/19/18 22:55 Dose: 20 mcg/kg/min, 8.328 mls/hr Titration: 03/19/18 20:57 Dose: 20 mcg/kg/min, 8.328 mls/hr Admin: 03/19/18 08:56 Dose: 20 mcg/kg/min, 8.328 mls/hr Titration: 03/19/18 08:56 Dose: 25 mcg/kg/min, 10.41 mls/hr Titration: 03/19/18 06:13 Dose: 25 mcg/kg/min, 10.41 mls/hr Titration: 03/19/18 00:26 Dose: 20 mcg/kg/min, 8.328 mls/hr Titration: 03/18/18 23:29 Dose: 10 mcg/kg/min, 4.164 mls/hr Titration: 03/18/18 23:18 Dose: 15 mcg/kg/min, 6.246 mls/hr Admin: 03/18/18 22:49 Dose: 5 mcg/kg/min, 2.082 mls/hr Meropenem 1 gm/ Sodium (Chloride) 50 mls @ 100 mls/hr IV Q12H [facility] Last Admin: 03/23/18 20:02 Dose: 100 mls/hr Admin: 03/23/18 07:50 Dose: 100 mls/hr Admin: 03/22/18 19:59 Dose: 100 mls/hr Admin: 03/22/18 08:09 Dose: 100 mls/hr Admin: 03/21/18 20:34 Dose: 100 mls/hr Admin: 03/21/18 09:04 Dose: 100 mls/hr Admin: 03/20/18 20:49 Dose: 100 mls/hr Admin: 03/20/18 08:04 Dose: 100 mls/hr Admin: 03/19/18 20:25 Dose: 100 mls/hr Admin: 03/19/18 08:12 Dose: 100 mls/hr Aztreonam/Dextrose 1 gm/ (Premix) 50 mls @ 100 mls/hr IV Q8H [facility] Last Admin: 03/23/18 14:04 Dose: 100 mls/hr Admin: 03/23/18 04:37 Dose: 100 mls/hr Admin: 03/22/18 21:41 Dose: 100 mls/hr Admin: 03/22/18 14:00 Dose: 100 mls/hr Admin: 03/22/18 04:24 Dose: 100 mls/hr Admin: 03/21/18 20:38 Dose: 100 mls/hr Admin: 03/21/18 12:26 Dose: 100 mls/hr Admin: 03/21/18 04:59 Dose: 100 mls/hr Admin: 03/20/18 21:31 Dose: 100 mls/hr Admin: 03/20/18 13:28 Dose: 100 mls/hr Admin: 03/20/18 05:34 Dose: 100 mls/hr Admin: 03/19/18 21:01 Dose: 100 mls/hr Admin: 03/19/18 14:26 Dose: 100 mls/hr Norepinephrine Bitartrate 8 mg (/ Dextrose/Water) 250 mls @ 3.75 mls/hr IV TITRATE [facility]; Protocol Last Admin: 03/23/18 16:38 Dose: 12 mcg/min, 22.5 mls/hr Titration: 03/23/18 16:34 Dose: 11 mcg/min, 20.62 mls/hr Titration: 03/23/18 14:52 Dose: 11 mcg/min, 20.62 mls/hr Titration: 03/23/18 12:00 Dose: 10 mcg/min, 18.75 mls/hr Titration: 03/23/18 09:03 Dose: 9 mcg/min, 16.87 mls/hr Admin: 03/23/18 01:37 Dose: 8 mcg/min, 15 mls/hr Titration: 03/23/18 01:29 Dose: 8 mcg/min, 15 mls/hr Titration: 03/22/18 23:00 Dose: 8 mcg/min, 15 mls/hr Titration: 03/22/18 22:00 Dose: 9 mcg/min, 16.87 mls/hr Titration: 03/22/18 18:47 Dose: 10 mcg/min, 18.75 mls/hr Titration: 03/22/18 16:00 Dose: 11 mcg/min, 20.62 mls/hr Admin: 03/22/18 12:30 Dose: 12 mcg/min, 22.5 mls/hr Titration: 03/22/18 12:02 Dose: 12 mcg/min, 22.5 mls/hr Admin: 03/22/18 00:55 Dose: 12 mcg/min, 22.5 mls/hr Titration: 03/21/18 23:42 Dose: 12 mcg/min, 22.5 mls/hr Titration: 03/21/18 14:56 Dose: 12 mcg/min, 22.5 mls/hr Titration: 03/21/18 14:46 Dose: 11 mcg/min, 20.62 mls/hr Titration: 03/21/18 13:29 Dose: 10 mcg/min, 18.75 mls/hr Admin: 03/21/18 11:55 Dose: 9 mcg/min, 16.87 mls/hr Titration: 03/21/18 11:46 Dose: 10 mcg/min, 18.75 mls/hr Titration: 03/21/18 11:25 Dose: 11 mcg/min, 20.62 mls/hr Admin: 03/21/18 00:35 Dose: 12 mcg/min, 22.5 mls/hr Titration: 03/20/18 22:55 Dose: 12 mcg/min, 22.5 mls/hr Admin: 03/20/18 11:48 Dose: 12 mcg/min, 22.5 mls/hr Titration: 03/20/18 10:45 Dose: 12 mcg/min, 22.5 mls/hr Admin: 03/19/18 23:38 Dose: 12 mcg/min, 22.5 mls/hr Vancomycin HCl 1.4 gm/ Sodium (Chloride) 250 mls @ 170 mls/hr IV Q24H [facility] Last Admin: 03/23/18 11:42 Dose: 170 mls/hr Multivitamins/Minerals 10 ml/Chromium/Copper/Manganese/Seleni/Zn 1 ml/ Amino Ac/ Electrol/Dextrose/Calcium 1,011 mls @ 75 mls/hr IV .BY DURATION [facility] Last Admin: 03/23/18 14:08 Dose: 75 mls/hr Amino Ac/Electrol/Dextrose/Calcium (Clinimix E 07/08) 1,000 mls @ 75 mls/hr IV .BY DURATION [facility] Nystatin (Mycostatin) 5 ml PO QID [facility] Last Admin: 03/23/18 17:37 Dose: 5 ml Admin: 03/23/18 09:09 Dose: 5 ml Admin: 03/23/18 06:21 Dose: 5 ml Admin: 03/22/18 21:42 Dose: 5 ml Admin: 03/22/18 16:43 Dose: 5 ml Admin: 03/22/18 10:06 Dose: 5 ml Admin: 03/22/18 05:43 Dose: 5 ml Admin: 03/21/18 22:20 Dose: 5 ml Admin: 03/21/18 16:31 Dose: 5 ml Admin: 03/21/18 10:06 Dose: 5 ml Pantoprazole Sodium (Protonix Iv) 40 mg IVPUSH DAILY [facility] Last Admin: 03/23/18 09:09 Dose: 40 mg Admin: 03/22/18 10:06 Dose: 40 mg Admin: 03/21/18 10:06 Dose: 40 mg Admin: 03/20/18 09:39 Dose: 40 mg Admin: 03/19/18 10:47 Dose: 40 mg - Assessment Assessment (Free Text/Narrative):: He continues to slowly improve, still critical. He is off his Vasopressin, trying to titrate Levophed. He has started TPN. Easy to ventilate. His wound still does not look like it has started to heal. No drainage. Surface does not look well. - Plan Plan (Free Text/Narrative):: Continue to follow.
[2018-03-24] MEDS: Norepinephrine 8 MG in Dextrose 5% in Water 242 ML IV SCH ×6 (01:12→14:31)
[2018-03-24] MEDS: 1: AA 5%/Calcium/D15W/Lytes 1,000 ML with MVI, Adult with Vitamin K 10 ML, Chromium/Copp IV SCH ×6 (03:59→17:10)
[2018-03-24] MEDS: Aztreonam/Dextrose-Water 1 GM in Premix Bag 1 BAG IV SCH ×3 (04:00→20:37)
[2018-03-24] MEDS: Nystatin Susp 100,000 Unit/ML 5 ML UD Cup PO SCH ×4 (05:06→21:25)
--- NOTE | 2018-03-24 06:41 | PCM.SURGPN ---
- General Info Date of Service: 03/24/18 Date of Surgery/Procedure: 03/18/18 POD#: 6 Post-Op Diagnosis: Perforated sigmoid, Hinchey IV Admission Diagnosis/Problem: Perforation of sigmoid colon Functional Status: Reports: Pain Controlled, Urinating (Sorto). Denies: Tolerating Diet, Ambulating - Patient Data Vitals - Most Recent: Last Vital Signs Temp 97.9 F 03/24/18 05:54 Pulse 74 03/24/18 05:54 Resp 23 H 03/24/18 05:54 BP 126/50 L 03/24/18 05:54 Pulse Ox 100 03/24/18 05:54 Weight - Most Recent: 153 lb 0.013 oz I&O - Last 24 Hours: Intake & Output 03/23/18 03/23/18 03/24/18 14:59 22:59 06:59 Intake Total 50 720 1535 Output Total 1230 2475 1275 Balance -1180 -1755 260 Lab Results Last 24 Hrs: Laboratory Results - last 24 hr 03/23/18 03/24/18 03/24/18 Range/Units 09:32 04:55 04:55 WBC 17.8 H (4.5-11.0) K/uL RBC 3.75 L (4.30-5.90) M/uL Hgb 10.9 L (12.0-15.0) g/dL Hct 34.0 L (40.0-54.0) % MCV 91 (80-98) fL MCH 29 (27-31) pg MCHC 32 (32-36) % Plt Count 121 L (150-400) K/uL Puncture Site Line ABG pH 7.445 (7.350-7.450) ABG pCO2 31.6 L (35.0-42.0) mmHg ABG pO2 76.9 (75.0-100.0) mmHg ABG HCO3 21.4 L (22.0-26.0) mmol/L ABG Total CO2 19.4 L (23.0-27.0) mmol/L ABG O2 Saturation 96.2 (95.0-98.0) % ABG O2 Content 14.7 L (15.0-23.0) %vol ABG Base Excess -1.5 mm/L ABG Hemoglobin 11.1 L (13.5-18.0) g/dL ABG Oxyhemoglobin 93.8 % ABG Carboxyhemoglobin 2.0 H (0.0-1.6) % ABG Methemoglobin 0.5 % O2 Delivery Device Ventilator Oxygen Flow Rate L Sodium (140-148) mmol/L Potassium (3.6-5.2) mmol/L Chloride (100-108) mmol/L Carbon Dioxide (21-32) mmol/L Anion Gap (5.0-14.0) mmol/L BUN (7-18) mg/dL Creatinine (0.8-1.3) mg/dL Est Cr Clr Drug Dosing mL/min Estimated GFR (MDRD) (>60) Glucose (74-106) mg/dL Calcium (8.5-10.1) mg/dL Vancomycin Trough 13.1 (10.0-20.0) ug/mL 03/24/18 Range/Units 04:55 WBC (4.5-11.0) K/uL RBC (4.30-5.90) M/uL Hgb (12.0-15.0) g/dL Hct (40.0-54.0) % MCV (80-98) fL MCH (27-31) pg MCHC (32-36) % Plt Count (150-400) K/uL Puncture Site ABG pH (7.350-7.450) ABG pCO2 (35.0-42.0) mmHg ABG pO2 (75.0-100.0) mmHg ABG HCO3 (22.0-26.0) mmol/L ABG Total CO2 (23.0-27.0) mmol/L ABG O2 Saturation (95.0-98.0) % ABG O2 Content (15.0-23.0) %vol ABG Base Excess mm/L ABG Hemoglobin (13.5-18.0) g/dL ABG Oxyhemoglobin % ABG Carboxyhemoglobin (0.0-1.6) % ABG Methemoglobin % O2 Delivery Device Oxygen Flow Rate L Sodium 142 (140-148) mmol/L Potassium 3.4 L (3.6-5.2) mmol/L Chloride 110 H (100-108) mmol/L Carbon Dioxide 23 (21-32) mmol/L Anion Gap 12.4 (5.0-14.0) mmol/L BUN 48 H (7-18) mg/dL Creatinine 1.5 H (0.8-1.3) mg/dL Est Cr Clr Drug Dosing 39.68 mL/min Estimated GFR (MDRD) 46 L (>60) Glucose 207 H (74-106) mg/dL Calcium 7.6 L (8.5-10.1) mg/dL Vancomycin Trough (10.0-20.0) ug/mL Dante Results Last 24 Hrs: Microbiology 03/18/18 18:45 Aerobic Blood Culture - Final Blood - Venous NO GROWTH AFTER 5 DAYS Anaerobic Blood Culture - Final NO GROWTH AFTER 5 DAYS 03/18/18 18:55 Aerobic Blood Culture - Final Blood - Venous - Lab Draw Escherichia Coli Escherichia Coli#2 Anaerobic Blood Culture - Final NO GROWTH AFTER 5 DAYS Med Orders - Current: Current Medications Heparin Sodium (Porcine) (Heparin Lock Flush 100 Units/Ml) 500 units FLUSH ASDIRECTED PRN PRN Reason: IV Use Last Admin: 03/22/18 12:28 Dose: 500 units Propofol (Diprivan 100 Ml) 100 mls @ 2.082 mls/hr IV TITRATE [facility]; Protocol Last Admin: 03/24/18 02:25 Dose: 30 mcg/kg/min, 12.492 mls/hr Meropenem 1 gm/ Sodium (Chloride) 50 mls @ 100 mls/hr IV Q12H [facility] Last Admin: 03/23/18 20:02 Dose: 100 mls/hr Aztreonam/Dextrose 1 gm/ (Premix) 50 mls @ 100 mls/hr IV Q8H [facility] Last Admin: 03/24/18 04:00 Dose: 100 mls/hr Norepinephrine Bitartrate 8 mg (/ Dextrose/Water) 250 mls @ 3.75 mls/hr IV TITRATE [facility]; Protocol Last Admin: 03/24/18 01:12 Dose: 23 mcg/min, 43.12 mls/hr Vancomycin HCl 1.4 gm/ Sodium (Chloride) 250 mls @ 170 mls/hr IV Q24H [facility] Last Admin: 03/23/18 11:42 Dose: 170 mls/hr Multivitamins/Minerals 10 ml/Chromium/Copper/Manganese/Seleni/Zn 1 ml/ Amino Ac/ Electrol/Dextrose/Calcium 1,011 mls @ 75 mls/hr IV .BY DURATION [facility] Last Admin: 03/23/18 14:08 Dose: 75 mls/hr Amino Ac/Electrol/Dextrose/Calcium (Clinimix E 07/08) 1,000 mls @ 75 mls/hr IV .BY DURATION [facility] Last Admin: 03/24/18 03:59 Dose: 75 mls/hr Nystatin (Mycostatin) 5 ml PO QID [facility] Last Admin: 03/24/18 05:06 Dose: 5 ml Pantoprazole Sodium (Protonix Iv) 40 mg IVPUSH DAILY [facility] Last Admin: 03/23/18 09:09 Dose: 40 mg Discontinued Medications Dexamethasone (Dexamethasone) Confirm Administered Dose 4 mg .ROUTE .STK-MED ONE Stop: 03/18/18 19:48 Epinephrine HCl (Adrenalin) Confirm Administered Dose 1 mg .ROUTE .STK-MED ONE Stop: 03/18/18 21:07 Fentanyl (Sublimaze) Confirm Administered Dose 250 mcg .ROUTE .STK-[facility] ONE Stop: 03/18/18 19:48 Furosemide (Lasix) 20 mg IVPUSH ONETIME ONE Stop: 03/23/18 09:46 Last Admin: 03/23/18 10:18 Dose: 20 mg Glycopyrrolate (Robinul) Confirm Administered Dose 1 mg .ROUTE .STK-MED ONE Stop: 03/18/18 19:48 Heparin Sodium (Porcine) (Heparin Sodium) Confirm Administered Dose 5,000 units .ROUTE .STK-MED ONE Stop: 03/18/18 19:51 Heparin Sodium (Porcine) (Heparin Lock Flush 100 Units/Ml) Confirm Administered Dose 500 units .ROUTE .STK-MED ONE Stop: 03/22/18 12:17 Last Admin: 03/22/18 12:30 Dose: Not Given Hydromorphone HCl (Dilaudid) 0.5 mg IVPUSH ONETIME ONE Stop: 03/18/18 17:43 Last Admin: 03/18/18 17:47 Dose: 0.5 mg Hydromorphone HCl (Dilaudid) 1 mg IVPUSH ONETIME ONE Stop: 03/18/18 18:18 Last Admin: 03/18/18 18:27 Dose: 1 mg Sodium Chloride (Normal Saline) 1,000 mls @ 1,000 mls/hr IV ASDIRECTED [facility] Last Admin: 03/18/18 17:47 Dose: 1,000 mls/hr Sodium Chloride (Normal Saline) 1,000 mls @ 999 mls/hr IV ASDIRECTED [facility] Last Admin: 03/18/18 19:31 Dose: 999 mls/hr Meropenem 500 mg/ Sodium (Chloride) 50 mls @ 100 mls/hr IV ONETIME ONE Stop: 03/18/18 19:09 Last Admin: 03/18/18 19:01 Dose: 100 mls/hr Sodium Chloride (Normal Saline) Confirm Administered Dose 50 mls @ as directed .ROUTE .STK-MED ONE Stop: 03/18/18 19:40 Last Admin: 03/18/18 20:19 Dose: Not Given Aztreonam 2 gm/ Sodium (Chloride) 50 mls @ 100 mls/hr IV ONETIME ONE Stop: 03/18/18 20:01 Last Admin: 03/18/18 20:44 Dose: 100 mls/hr Meropenem 500 mg/ Sodium (Chloride) 50 mls @ 100 mls/hr IV ONETIME ONE Stop: 03/18/18 20:00 Last Admin: 03/18/18 19:40 Dose: 100 mls/hr Sodium Chloride (Normal Saline) Confirm Administered Dose 250 mls @ as directed .ROUTE .ST-MED ONE Stop: 03/18/18 19:59 Lactated Ringer's (Ringers, Lactated) Confirm Administered Dose 1,000 mls @ as directed .ROUTE .STK-MED ONE Stop: 03/18/18 19:59 Sodium Chloride (Normal Saline) Confirm Administered Dose 500 mls @ as directed .ROUTE .ST-MED ONE Stop: 03/18/18 19:59 Norepinephrine Bitartrate 8 mg (/ Dextrose/Water) 258 mls @ 3.87 mls/hr IV TITRATE [facility]; Protocol Last Admin: 03/19/18 11:45 Dose: 12 mcg/min, 23.22 mls/hr Lactated Ringer's (Ringers, Lactated) Confirm Administered Dose 1,000 mls @ as directed .ROUTE .STK-MED ONE Stop: 03/18/18 21:42 Aztreonam 1 gm/ Sodium (Chloride) 50 mls @ 100 mls/hr IV Q8H [facility] Last Admin: 03/19/18 05:29 Dose: 100 mls/hr Potassium Chloride/Dextrose/Sod Cl (D5 1/2 Ns W/ 20 Meq/L Kcl) 1,000 mls @ 150 mls/hr IV ASDIRECTED [facility] Last Admin: 03/18/18 23:11 Dose: 150 mls/hr Lactated Ringer's (Ringers, Lactated) 1,000 mls @ 500 mls/hr IV ASDIRECTED [facility] Last Admin: 03/19/18 01:23 Dose: 500 mls/hr Vasopressin 100 units/ (Dextrose/Water) 255 mls @ 1.53 mls/hr IV TITRATE [facility]; Protocol Stop: 03/21/18 13:00 Last Titration: 03/21/18 11:03 Dose: 0.02 units/min, 3.06 mls/hr Lactated Ringer's (Ringers, Lactated) 1,000 mls @ 500 mls/hr IV BOLUS [facility] Stop: 03/19/18 05:29 Last Admin: 03/19/18 04:02 Dose: 500 mls/hr Lactated Ringer's (Ringers, Lactated) 1,000 mls @ 500 mls/hr IV .BOLUS ONE Stop: 03/19/18 14:59 Last Admin: 03/19/18 14:27 Dose: 500 mls/hr Lactated Ringer's (Ringers, Lactated) 1,000 mls @ 150 mls/hr IV ASDIRECTED [facility] Last Admin: 03/21/18 11:53 Dose: 150 mls/hr Magnesium Sulfate 2 gm/ Premix 50 mls @ 25 mls/hr IV Q6H [facility] Stop: 03/20/18 17:59 Last Admin: 03/20/18 16:30 Dose: 25 mls/hr Vancomycin HCl 1.25 gm/ Sodium (Chloride) 250 mls @ 170 mls/hr IV Q24H [facility] Last Admin: 03/22/18 10:06 Dose: 170 mls/hr Vasopressin 40 units/ Dextrose (/Water) 100 mls @ 3 mls/hr IV TITRATE [facility]; Protocol Last Titration: 03/23/18 01:00 Dose: 0 units/min, 0 mls/hr Potassium Chloride 20 meq/ (Premix) 100 mls @ 50 mls/hr IV Q2H [facility] Stop: 03/21/18 22:59 Last Admin: 03/21/18 22:20 Dose: 50 mls/hr Potassium Chloride 20 meq/ (Premix) 100 mls @ 50 mls/hr IV Q2H [facility] Stop: 03/22/18 12:59 Last Admin: 03/22/18 11:30 Dose: 50 mls/hr Potassium Chloride 20 meq/ (Premix) 100 mls @ 50 mls/hr IV Q2H [facility] Stop: 03/22/18 17:29 Last Admin: 03/22/18 16:13 Dose: 50 mls/hr Potassium Chloride (Kcl 20 Meq In Water 100 Ml) 100 mls @ 50 mls/hr IV Q2H [facility] Stop: 03/23/18 01:59 Last Admin: 03/23/18 00:53 Dose: 50 mls/hr Potassium Chloride 40 meq/ (Premix) 100 mls @ 25 mls/hr IV ONETIME ONE Stop: 03/23/18 14:29 Last Admin: 03/23/18 10:31 Dose: 25 mls/hr Meropenem (Merrem) Confirm Administered Dose 500 mg .ROUTE .STK-MED ONE Stop: 03/18/18 19:40 Last Admin: 03/18/18 20:19 Dose: Not Given Neostigmine Methylsulfate (Neostigmine) Confirm Administered Dose 5 mg .ROUTE .ST-MED ONE Stop: 03/18/18 19:48 Ondansetron HCl (Zofran) 4 mg IVPUSH ONETIME ONE Stop: 03/18/18 18:18 Last Admin: 03/18/18 18:27 Dose: 4 mg Ondansetron HCl (Zofran) Confirm Administered Dose 4 mg .ROUTE .STK-MED ONE Stop: 03/18/18 19:48 Phenylephrine HCl (Isaías-Synephrine) Confirm Administered Dose 10 mg .ROUTE .STK- MED ONE Stop: 03/18/18 20:05 Propofol (Diprivan 20 Ml) Confirm Administered Dose 200 mg .ROUTE .STK-MED ONE Stop: 03/18/18 19:48 Rocuronium [place] (Zemuron) Confirm Administered Dose 50 mg .ROUTE .STK-MED ONE Stop: 03/18/18 19:48 Succinylcholine Chloride (Quelicin) Confirm Administered Dose 200 mg .ROUTE .STK -MED ONE Stop: 03/18/18 19:48 Vancomycin HCl (Vancomycin) 1 gm IV .PHARMACY TO DOSE [facility] Stop: 03/21/18 16:00 - Exam Wound/Incisions: Other (No surrounding erythema. Wound not good enough to close. ) Quality Assessment: Central Line/PICC, Urine Catheter, DVT Prophylaxis, Restraints General: Sedated. No: Alert, Oriented Lungs: Clear to Auscultation, Other (Ventilated. ) Cardiovascular: Regular Rate, Regular Rhythm GI/Abdominal Exam: Abnormal Bowel Sounds (Quiet. Has bilious ostomy output. ). No: Normal Bowel Sounds Extremities: Other (Scrotal edema.) Skin: Warm, Dry Neurological: No New Focal Deficit, Other (Sedated) Psy/Mental Status: Other (Sedated. ). No: Alert, Normal Affect - Problem List & Annotations (1) Perforation of sigmoid colon SNOMED Code(s): 321339883 Code(s): K63.1 - PERFORATION OF INTESTINE (NONTRAUMATIC) Status: Acute Current Visit: Yes - Problem List Review Problem List Initiated/Reviewed/Updated: Yes - My Orders Last 24 Hours: Active Orders 24 hr Category Date Time Status Antiembolic Devices [RC] .Routine Care 03/23/18 09:50 Active Communication Order [RC] Q12H Care 03/23/18 08:00 Active CXR [Chest 1V Frontal] [CR] DAILY Exams 03/24/18 05:00 Taken ALT Order Med 03/23/18 14:00 Active Vancomycin 1.4 gm Med 03/23/18 11:00 Active Sodium Chloride 0.9% [Normal Saline] 250 ml IV Q24H SCD [Sequential Compression Device] [OM.PC] Routine Oth 03/23/18 09:50 Ordered Medication Orders Heparin Sodium (Porcine) (Heparin Lock Flush 100 Units/Ml) 500 units FLUSH ASDIRECTED PRN PRN Reason: IV Use Last Admin: 03/22/18 12:28 Dose: 500 units Propofol (Diprivan 100 Ml) 100 mls @ 2.082 mls/hr IV TITRATE [facility]; Protocol Last Admin: 03/24/18 02:25 Dose: 30 mcg/kg/min, 12.492 mls/hr Titration: 03/24/18 02:25 Dose: 30 mcg/kg/min, 12.492 mls/hr Admin: 03/23/18 19:30 Dose: 30 mcg/kg/min, 12.492 mls/hr Titration: 03/23/18 18:26 Dose: 30 mcg/kg/min, 12.492 mls/hr Admin: 03/23/18 10:25 Dose: 30 mcg/kg/min, 12.492 mls/hr Titration: 03/23/18 10:25 Dose: 30 mcg/kg/min, 12.492 mls/hr Admin: 03/23/18 04:37 Dose: 30 mcg/kg/min, 12.492 mls/hr Titration: 03/23/18 04:37 Dose: 30 mcg/kg/min, 12.492 mls/hr Admin: 03/22/18 21:42 Dose: 30 mcg/kg/min, 12.492 mls/hr Titration: 03/22/18 14:59 Dose: 30 mcg/kg/min, 12.492 mls/hr Admin: 03/22/18 06:58 Dose: 30 mcg/kg/min, 12.492 mls/hr Titration: 03/22/18 06:58 Dose: 30 mcg/kg/min, 12.492 mls/hr Admin: 03/22/18 00:19 Dose: 30 mcg/kg/min, 12.492 mls/hr Titration: 03/21/18 23:46 Dose: 30 mcg/kg/min, 12.492 mls/hr Titration: 03/21/18 22:00 Dose: 30 mcg/kg/min, 12.492 mls/hr Titration: 03/21/18 21:45 Dose: 25 mcg/kg/min, 10.41 mls/hr Admin: 03/21/18 13:55 Dose: 23 mcg/kg/min, 9.577 mls/hr Titration: 03/21/18 13:55 Dose: 23 mcg/kg/min, 9.577 mls/hr Admin: 03/21/18 04:59 Dose: 23 mcg/kg/min, 9.577 mls/hr Titration: 03/21/18 04:59 Dose: 23 mcg/kg/min, 9.577 mls/hr Admin: 03/20/18 19:28 Dose: 23 mcg/kg/min, 9.577 mls/hr Titration: 03/20/18 19:28 Dose: 23 mcg/kg/min, 9.577 mls/hr Titration: 03/20/18 11:48 Dose: 23 mcg/kg/min, 9.577 mls/hr Admin: 03/20/18 09:35 Dose: 20 mcg/kg/min, 8.328 mls/hr Titration: 03/20/18 09:35 Dose: 20 mcg/kg/min, 8.328 mls/hr Admin: 03/19/18 22:55 Dose: 20 mcg/kg/min, 8.328 mls/hr Titration: 03/19/18 20:57 Dose: 20 mcg/kg/min, 8.328 mls/hr Admin: 03/19/18 08:56 Dose: 20 mcg/kg/min, 8.328 mls/hr Titration: 03/19/18 08:56 Dose: 25 mcg/kg/min, 10.41 mls/hr Titration: 03/19/18 06:13 Dose: 25 mcg/kg/min, 10.41 mls/hr Titration: 03/19/18 00:26 Dose: 20 mcg/kg/min, 8.328 mls/hr Titration: 03/18/18 23:29 Dose: 10 mcg/kg/min, 4.164 mls/hr Titration: 03/18/18 23:18 Dose: 15 mcg/kg/min, 6.246 mls/hr Admin: 03/18/18 22:49 Dose: 5 mcg/kg/min, 2.082 mls/hr Meropenem 1 gm/ Sodium (Chloride) 50 mls @ 100 mls/hr IV Q12H [facility] Last Admin: 03/23/18 20:02 Dose: 100 mls/hr Admin: 03/23/18 07:50 Dose: 100 mls/hr Admin: 03/22/18 19:59 Dose: 100 mls/hr Admin: 03/22/18 08:09 Dose: 100 mls/hr Admin: 03/21/18 20:34 Dose: 100 mls/hr Admin: 03/21/18 09:04 Dose: 100 mls/hr Admin: 03/20/18 20:49 Dose: 100 mls/hr Admin: 03/20/18 08:04 Dose: 100 mls/hr Admin: 03/19/18 20:25 Dose: 100 mls/hr Admin: 03/19/18 08:12 Dose: 100 mls/hr Aztreonam/Dextrose 1 gm/ (Premix) 50 mls @ 100 mls/hr IV Q8H [facility] Last Admin: 03/24/18 04:00 Dose: 100 mls/hr Admin: 03/23/18 20:55 Dose: 100 mls/hr Admin: 03/23/18 14:04 Dose: 100 mls/hr Admin: 03/23/18 04:37 Dose: 100 mls/hr Admin: 03/22/18 21:41 Dose: 100 mls/hr Admin: 03/22/18 14:00 Dose: 100 mls/hr Admin: 03/22/18 04:24 Dose: 100 mls/hr Admin: 03/21/18 20:38 Dose: 100 mls/hr Admin: 03/21/18 12:26 Dose: 100 mls/hr Admin: 03/21/18 04:59 Dose: 100 mls/hr Admin: 03/20/18 21:31 Dose: 100 mls/hr Admin: 03/20/18 13:28 Dose: 100 mls/hr Admin: 03/20/18 05:34 Dose: 100 mls/hr Admin: 03/19/18 21:01 Dose: 100 mls/hr Admin: 03/19/18 14:26 Dose: 100 mls/hr Norepinephrine Bitartrate 8 mg (/ Dextrose/Water) 250 mls @ 3.75 mls/hr IV TITRATE [facility]; Protocol Last Admin: 03/24/18 01:12 Dose: 23 mcg/min, 43.12 mls/hr Titration: 03/24/18 01:12 Dose: 23 mcg/min, 43.12 mls/hr Titration: 03/23/18 23:22 Dose: 23 mcg/min, 43.12 mls/hr Titration: 03/23/18 23:16 Dose: 22 mcg/min, 41.25 mls/hr Titration: 03/23/18 23:11 Dose: 21 mcg/min, 39.37 mls/hr Titration: 03/23/18 22:41 Dose: 19 mcg/min, 35.62 mls/hr Titration: 03/23/18 22:33 Dose: 18 mcg/min, 33.75 mls/hr Titration: 03/23/18 22:29 Dose: 17 mcg/min, 31.87 mls/hr Titration: 03/23/18 22:24 Dose: 16 mcg/min, 30 mls/hr Titration: 03/23/18 22:20 Dose: 15 mcg/min, 28.12 mls/hr Titration: 03/23/18 22:15 Dose: 14 mcg/min, 26.25 mls/hr Titration: 03/23/18 22:08 Dose: 13 mcg/min, 24.37 mls/hr Admin: 03/23/18 16:38 Dose: 12 mcg/min, 22.5 mls/hr Titration: 03/23/18 16:34 Dose: 11 mcg/min, 20.62 mls/hr Titration: 03/23/18 14:52 Dose: 11 mcg/min, 20.62 mls/hr Titration: 03/23/18 12:00 Dose: 10 mcg/min, 18.75 mls/hr Titration: 03/23/18 09:03 Dose: 9 mcg/min, 16.87 mls/hr Admin: 03/23/18 01:37 Dose: 8 mcg/min, 15 mls/hr Titration: 03/23/18 01:29 Dose: 8 mcg/min, 15 mls/hr Titration: 03/22/18 23:00 Dose: 8 mcg/min, 15 mls/hr Titration: 03/22/18 22:00 Dose: 9 mcg/min, 16.87 mls/hr Titration: 03/22/18 18:47 Dose: 10 mcg/min, 18.75 mls/hr Titration: 03/22/18 16:00 Dose: 11 mcg/min, 20.62 mls/hr Admin: 03/22/18 12:30 Dose: 12 mcg/min, 22.5 mls/hr Titration: 03/22/18 12:02 Dose: 12 mcg/min, 22.5 mls/hr Admin: 03/22/18 00:55 Dose: 12 mcg/min, 22.5 mls/hr Titration: 03/21/18 23:42 Dose: 12 mcg/min, 22.5 mls/hr Titration: 03/21/18 14:56 Dose: 12 mcg/min, 22.5 mls/hr Titration: 03/21/18 14:46 Dose: 11 mcg/min, 20.62 mls/hr Titration: 03/21/18 13:29 Dose: 10 mcg/min, 18.75 mls/hr Admin: 03/21/18 11:55 Dose: 9 mcg/min, 16.87 mls/hr Titration: 03/21/18 11:46 Dose: 10 mcg/min, 18.75 mls/hr Titration: 03/21/18 11:25 Dose: 11 mcg/min, 20.62 mls/hr Admin: 03/21/18 00:35 Dose: 12 mcg/min, 22.5 mls/hr Titration: 03/20/18 22:55 Dose: 12 mcg/min, 22.5 mls/hr Admin: 03/20/18 11:48 Dose: 12 mcg/min, 22.5 mls/hr Titration: 03/20/18 10:45 Dose: 12 mcg/min, 22.5 mls/hr Admin: 03/19/18 23:38 Dose: 12 mcg/min, 22.5 mls/hr Vancomycin HCl 1.4 gm/ Sodium (Chloride) 250 mls @ 170 mls/hr IV Q24H [facility] Last Admin: 03/23/18 11:42 Dose: 170 mls/hr Multivitamins/Minerals 10 ml/Chromium/Copper/Manganese/Seleni/Zn 1 ml/ Amino Ac/ Electrol/Dextrose/Calcium 1,011 mls @ 75 mls/hr IV .BY DURATION [facility] Last Admin: 03/23/18 14:08 Dose: 75 mls/hr Amino Ac/Electrol/Dextrose/Calcium (Clinimix E 07/08) 1,000 mls @ 75 mls/hr IV .BY DURATION [facility] Last Admin: 03/24/18 03:59 Dose: 75 mls/hr Nystatin (Mycostatin) 5 ml PO QID [facility] Last Admin: 03/24/18 05:06 Dose: 5 ml Admin: 03/23/18 22:44 Dose: 5 ml Admin: 03/23/18 17:37 Dose: 5 ml Admin: 03/23/18 09:09 Dose: 5 ml Admin: 03/23/18 06:21 Dose: 5 ml Admin: 03/22/18 21:42 Dose: 5 ml Admin: 03/22/18 16:43 Dose: 5 ml Admin: 03/22/18 10:06 Dose: 5 ml Admin: 03/22/18 05:43 Dose: 5 ml Admin: 03/21/18 22:20 Dose: 5 ml Admin: 03/21/18 16:31 Dose: 5 ml Admin: 03/21/18 10:06 Dose: 5 ml Pantoprazole Sodium (Protonix Iv) 40 mg IVPUSH DAILY [facility] Last Admin: 03/23/18 09:09 Dose: 40 mg Admin: 03/22/18 10:06 Dose: 40 mg Admin: 03/21/18 10:06 Dose: 40 mg Admin: 03/20/18 09:39 Dose: 40 mg Admin: 03/19/18 10:47 Dose: 40 mg - Assessment Assessment (Free Text/Narrative):: WBC continues to improve. - Plan Plan (Free Text/Narrative):: Follow.
--- NOTE | 2018-03-24 09:06 | PCM.PN ---
- General Info Date of Service: 03/24/18 Subjective Update: Overnight there was difficulty with hypotension and the norepinephrine which had been decreasing during the day yesterday was increased significantly to more than 20 g. The patient continues to sound as if he's passing air around the cuff of the endotracheal tube. He has not had any fevers. Kidney function has remained stable. He did have a good response to diuresis yesterday but still has significant edema. White blood cell count decreased further. No new culture results. He remains intubated and sedated. Functional Status: Reports: Other (intubated and sedated) - Review of Systems General: Denies: Fever - Patient Data Vitals - Most Recent: Last Vital Signs Temp 36.5 C 03/24/18 07:00 Pulse 89 03/24/18 07:49 Resp 34 H 03/24/18 07:49 BP 119/46 L 03/24/18 07:49 Pulse Ox 98 03/24/18 07:49 Weight - Most Recent: 69.4 kg I&O - Last 24 Hours: Intake & Output 03/23/18 03/24/18 03/24/18 22:59 06:59 14:59 Intake Total 720 1535 50 Output Total 2475 1275 325 Balance -1755 260 -275 Lab Results Last 24 Hours: Laboratory Results - last 24 hr 03/23/18 03/24/18 03/24/18 Range/Units 09:32 04:55 04:55 WBC 17.8 H (4.5-11.0) K/uL RBC 3.75 L (4.30-5.90) M/uL Hgb 10.9 L (12.0-15.0) g/dL Hct 34.0 L (40.0-54.0) % MCV 91 (80-98) fL MCH 29 (27-31) pg MCHC 32 (32-36) % Plt Count 121 L (150-400) K/uL Puncture Site Line ABG pH 7.445 (7.350-7.450) ABG pCO2 31.6 L (35.0-42.0) mmHg ABG pO2 76.9 (75.0-100.0) mmHg ABG HCO3 21.4 L (22.0-26.0) mmol/L ABG Total CO2 19.4 L (23.0-27.0) mmol/L ABG O2 Saturation 96.2 (95.0-98.0) % ABG O2 Content 14.7 L (15.0-23.0) %vol ABG Base Excess -1.5 mm/L ABG Hemoglobin 11.1 L (13.5-18.0) g/dL ABG Oxyhemoglobin 93.8 % ABG Carboxyhemoglobin 2.0 H (0.0-1.6) % ABG Methemoglobin 0.5 % O2 Delivery Device Ventilator Oxygen Flow Rate L Sodium (140-148) mmol/L Potassium (3.6-5.2) mmol/L Chloride (100-108) mmol/L Carbon Dioxide (21-32) mmol/L Anion Gap (5.0-14.0) mmol/L BUN (7-18) mg/dL Creatinine (0.8-1.3) mg/dL Est Cr Clr Drug Dosing mL/min Estimated GFR (MDRD) (>60) Glucose (74-106) mg/dL Calcium (8.5-10.1) mg/dL Vancomycin Trough 13.1 (10.0-20.0) ug/mL 03/24/18 Range/Units 04:55 WBC (4.5-11.0) K/uL RBC (4.30-5.90) M/uL Hgb (12.0-15.0) g/dL Hct (40.0-54.0) % MCV (80-98) fL MCH (27-31) pg MCHC (32-36) % Plt Count (150-400) K/uL Puncture Site ABG pH (7.350-7.450) ABG pCO2 (35.0-42.0) mmHg ABG pO2 (75.0-100.0) mmHg ABG HCO3 (22.0-26.0) mmol/L ABG Total CO2 (23.0-27.0) mmol/L ABG O2 Saturation (95.0-98.0) % ABG O2 Content (15.0-23.0) %vol ABG Base Excess mm/L ABG Hemoglobin (13.5-18.0) g/dL ABG Oxyhemoglobin % ABG Carboxyhemoglobin (0.0-1.6) % ABG Methemoglobin % O2 Delivery Device Oxygen Flow Rate L Sodium 142 (140-148) mmol/L Potassium 3.4 L (3.6-5.2) mmol/L Chloride 110 H (100-108) mmol/L Carbon Dioxide 23 (21-32) mmol/L Anion Gap 12.4 (5.0-14.0) mmol/L BUN 48 H (7-18) mg/dL Creatinine 1.5 H (0.8-1.3) mg/dL Est Cr Clr Drug Dosing 39.68 mL/min Estimated GFR (MDRD) 46 L (>60) Glucose 207 H (74-106) mg/dL Calcium 7.6 L (8.5-10.1) mg/dL Vancomycin Trough (10.0-20.0) ug/mL Dante Results Last 24 Hours: Microbiology 03/18/18 18:45 Aerobic Blood Culture - Final Blood - Venous NO GROWTH AFTER 5 DAYS Anaerobic Blood Culture - Final NO GROWTH AFTER 5 DAYS 03/18/18 18:55 Aerobic Blood Culture - Final Blood - Venous - Lab Draw Escherichia Coli Escherichia Coli#2 Anaerobic Blood Culture - Final NO GROWTH AFTER 5 DAYS Med Orders - Current: Current Medications Heparin Sodium (Porcine) (Heparin Lock Flush 100 Units/Ml) 500 units FLUSH ASDIRECTED PRN PRN Reason: IV Use Last Admin: 03/22/18 12:28 Dose: 500 units Propofol (Diprivan 100 Ml) 100 mls @ 2.082 mls/hr IV TITRATE [facility]; Protocol Last Admin: 03/24/18 02:25 Dose: 30 mcg/kg/min, 12.492 mls/hr Meropenem 1 gm/ Sodium (Chloride) 50 mls @ 100 mls/hr IV Q12H [facility] Last Admin: 03/24/18 07:37 Dose: 100 mls/hr Aztreonam/Dextrose 1 gm/ (Premix) 50 mls @ 100 mls/hr IV Q8H [facility] Last Admin: 03/24/18 04:00 Dose: 100 mls/hr Norepinephrine Bitartrate 8 mg (/ Dextrose/Water) 250 mls @ 3.75 mls/hr IV TITRATE [facility]; Protocol Last Admin: 03/24/18 07:39 Dose: 23 mcg/min, 43.12 mls/hr Vancomycin HCl 1.4 gm/ Sodium (Chloride) 250 mls @ 170 mls/hr IV Q24H [facility] Last Admin: 03/23/18 11:42 Dose: 170 mls/hr Multivitamins/Minerals 10 ml/Chromium/Copper/Manganese/Seleni/Zn 1 ml/ Amino Ac/ Electrol/Dextrose/Calcium 1,011 mls @ 75 mls/hr IV .BY DURATION [facility] Last Admin: 03/23/18 14:08 Dose: 75 mls/hr Amino Ac/Electrol/Dextrose/Calcium (Clinimix E 5/15) 1,000 mls @ 75 mls/hr IV .BY DURATION [facility] Last Admin: 03/24/18 03:59 Dose: 75 mls/hr Nystatin (Mycostatin) 5 ml PO QID [facility] Last Admin: 03/24/18 05:06 Dose: 5 ml Pantoprazole Sodium (Protonix Iv) 40 mg IVPUSH DAILY [facility] Last Admin: 03/23/18 09:09 Dose: 40 mg Discontinued Medications Dexamethasone (Dexamethasone) Confirm Administered Dose 4 mg .ROUTE .STK-MED ONE Stop: 03/18/18 19:48 Epinephrine HCl (Adrenalin) Confirm Administered Dose 1 mg .ROUTE .STK-MED ONE Stop: 03/18/18 21:07 Fentanyl (Sublimaze) Confirm Administered Dose 250 mcg .ROUTE .STK-MED ONE Stop: 03/18/18 19:48 Furosemide (Lasix) 20 mg IVPUSH ONETIME ONE Stop: 03/23/18 09:46 Last Admin: 03/23/18 10:18 Dose: 20 mg Glycopyrrolate (Robinul) Confirm Administered Dose 1 mg .ROUTE .STK-MED ONE Stop: 03/18/18 19:48 Heparin Sodium (Porcine) (Heparin Sodium) Confirm Administered Dose 5,000 units .ROUTE .STK-MED ONE Stop: 03/18/18 19:51 Heparin Sodium (Porcine) (Heparin Lock Flush 100 Units/Ml) Confirm Administered Dose 500 units .ROUTE .STK-MED ONE Stop: 03/22/18 12:17 Last Admin: 03/22/18 12:30 Dose: Not Given Hydromorphone HCl (Dilaudid) 0.5 mg IVPUSH ONETIME ONE Stop: 03/18/18 17:43 Last Admin: 03/18/18 17:47 Dose: 0.5 mg Hydromorphone HCl (Dilaudid) 1 mg IVPUSH ONETIME ONE Stop: 03/18/18 18:18 Last Admin: 03/18/18 18:27 Dose: 1 mg Sodium Chloride (Normal Saline) 1,000 mls @ 1,000 mls/hr IV ASDIRECTED [facility] Last Admin: 03/18/18 17:47 Dose: 1,000 mls/hr Sodium Chloride (Normal Saline) 1,000 mls @ 999 mls/hr IV ASDIRECTED [facility] Last Admin: 03/18/18 19:31 Dose: 999 mls/hr Meropenem 500 mg/ Sodium (Chloride) 50 mls @ 100 mls/hr IV ONETIME ONE Stop: 03/18/18 19:09 Last Admin: 03/18/18 19:01 Dose: 100 mls/hr Sodium Chloride (Normal Saline) Confirm Administered Dose 50 mls @ as directed .ROUTE .STK-MED ONE Stop: 03/18/18 19:40 Last Admin: 03/18/18 20:19 Dose: Not Given Aztreonam 2 gm/ Sodium (Chloride) 50 mls @ 100 mls/hr IV ONETIME ONE Stop: 03/18/18 20:01 Last Admin: 03/18/18 20:44 Dose: 100 mls/hr Meropenem 500 mg/ Sodium (Chloride) 50 mls @ 100 mls/hr IV ONETIME ONE Stop: 03/18/18 20:00 Last Admin: 03/18/18 19:40 Dose: 100 mls/hr Sodium Chloride (Normal Saline) Confirm Administered Dose 250 mls @ as directed .ROUTE .STK-MED ONE Stop: 03/18/18 19:59 Lactated Ringer's (Ringers, Lactated) Confirm Administered Dose 1,000 mls @ as directed .ROUTE .STK-MED ONE Stop: 03/18/18 19:59 Sodium Chloride (Normal Saline) Confirm Administered Dose 500 mls @ as directed .ROUTE .STK-MED ONE Stop: 03/18/18 19:59 Norepinephrine Bitartrate 8 mg (/ Dextrose/Water) 258 mls @ 3.87 mls/hr IV TITRATE [facility]; Protocol Last Admin: 03/19/18 11:45 Dose: 12 mcg/min, 23.22 mls/hr Lactated Ringer's (Ringers, Lactated) Confirm Administered Dose 1,000 mls @ as directed .ROUTE .STK-MED ONE Stop: 03/18/18 21:42 Aztreonam 1 gm/ Sodium (Chloride) 50 mls @ 100 mls/hr IV Q8H [facility] Last Admin: 03/19/18 05:29 Dose: 100 mls/hr Potassium Chloride/Dextrose/Sod Cl (D5 1/2 Ns W/ 20 Meq/L Kcl) 1,000 mls @ 150 mls/hr IV ASDIRECTED [facility] Last Admin: 03/18/18 23:11 Dose: 150 mls/hr Lactated Ringer's (Ringers, Lactated) 1,000 mls @ 500 mls/hr IV ASDIRECTED [facility] Last Admin: 03/19/18 01:23 Dose: 500 mls/hr Vasopressin 100 units/ (Dextrose/Water) 255 mls @ 1.53 mls/hr IV TITRATE [facility]; Protocol Stop: 03/21/18 13:00 Last Titration: 03/21/18 11:03 Dose: 0.02 units/min, 3.06 mls/hr Lactated Ringer's (Ringers, Lactated) 1,000 mls @ 500 mls/hr IV BOLUS [facility] Stop: 03/19/18 05:29 Last Admin: 03/19/18 04:02 Dose: 500 mls/hr Lactated Ringer's (Ringers, Lactated) 1,000 mls @ 500 mls/hr IV .BOLUS ONE Stop: 03/19/18 14:59 Last Admin: 03/19/18 14:27 Dose: 500 mls/hr Lactated Ringer's (Ringers, Lactated) 1,000 mls @ 150 mls/hr IV ASDIRECTED [facility] Last Admin: 03/21/18 11:53 Dose: 150 mls/hr Magnesium Sulfate 2 gm/ Premix 50 mls @ 25 mls/hr IV Q6H [facility] Stop: 03/20/18 17:59 Last Admin: 03/20/18 16:30 Dose: 25 mls/hr Vancomycin HCl 1.25 gm/ Sodium (Chloride) 250 mls @ 170 mls/hr IV Q24H [facility] Last Admin: 03/22/18 10:06 Dose: 170 mls/hr Vasopressin 40 units/ Dextrose (/Water) 100 mls @ 3 mls/hr IV TITRATE [facility]; Protocol Last Titration: 03/23/18 01:00 Dose: 0 units/min, 0 mls/hr Potassium Chloride 20 meq/ (Premix) 100 mls @ 50 mls/hr IV Q2H [facility] Stop: 03/21/18 22:59 Last Admin: 03/21/18 22:20 Dose: 50 mls/hr Potassium Chloride 20 meq/ (Premix) 100 mls @ 50 mls/hr IV Q2H [facility] Stop: 03/22/18 12:59 Last Admin: 03/22/18 11:30 Dose: 50 mls/hr Potassium Chloride 20 meq/ (Premix) 100 mls @ 50 mls/hr IV Q2H [facility] Stop: 03/22/18 17:29 Last Admin: 03/22/18 16:13 Dose: 50 mls/hr Potassium Chloride (Kcl 20 Meq In Water 100 Ml) 100 mls @ 50 mls/hr IV Q2H [facility] Stop: 03/23/18 01:59 Last Admin: 03/23/18 00:53 Dose: 50 mls/hr Potassium Chloride 40 meq/ (Premix) 100 mls @ 25 mls/hr IV ONETIME ONE Stop: 03/23/18 14:29 Last Admin: 03/23/18 10:31 Dose: 25 mls/hr Meropenem (Merrem) Confirm Administered Dose 500 mg .ROUTE .STK-MED ONE Stop: 03/18/18 19:40 Last Admin: 03/18/18 20:19 Dose: Not Given Neostigmine Methylsulfate (Neostigmine) Confirm Administered Dose 5 mg .ROUTE .STK-MED ONE Stop: 03/18/18 19:48 Ondansetron HCl (Zofran) 4 mg IVPUSH ONETIME ONE Stop: 03/18/18 18:18 Last Admin: 03/18/18 18:27 Dose: 4 mg Ondansetron HCl (Zofran) Confirm Administered Dose 4 mg .ROUTE .STK-MED ONE Stop: 03/18/18 19:48 Phenylephrine HCl (Isaías-Synephrine) Confirm Administered Dose 10 mg .ROUTE .STK- MED ONE Stop: 03/18/18 20:05 Propofol (Diprivan 20 Ml) Confirm Administered Dose 200 mg .ROUTE .STK-MED ONE Stop: 03/18/18 19:48 Rocuronium [place] (Zemuron) Confirm Administered Dose 50 mg .ROUTE .STK-MED ONE Stop: 03/18/18 19:48 Succinylcholine Chloride (Quelicin) Confirm Administered Dose 200 mg .ROUTE .STK -MED ONE Stop: 03/18/18 19:48 Vancomycin HCl (Vancomycin) 1 gm IV .PHARMACY TO DOSE [facility] Stop: 03/21/18 16:00 - Exam Quality Assessment: Supplemental Oxygen, Central Line/PICC, Urine Catheter, DVT Prophylaxis, Restraints General: No Acute Distress, Sedated. No: Alert Neck: Supple. No: Lymphadenopathy Lungs: Normal Respiratory Effort, Decreased Breath Sounds (left lung base). No : Wheezing Cardiovascular: Regular Rate, Regular Rhythm, No Murmurs GI/Abdominal Exam: Soft, No Distention, Abnormal Bowel Sounds (hypoactive) Extremities: No Pedal Edema, Other (dependent edema both legs from knee to waist. Both arms with pitting edema) Peripheral Pulses: 1+: Dorsalis Pedis (L), Dorsalis Pedis (R) Skin: Warm, Dry Wound/Incisions: Dressing Dry and Intact, Other (EMEKA drains with small serosanguinous drainage ) Psy/Mental Status: No: Alert, Agitated - Problem List Review Problem List Initiated/Reviewed/Updated: Yes - My Orders Last 24 Hours: My Active Orders 03/23/18 09:50 Antiembolic Devices [RC] .Routine SCD [Sequential Compression Device] [OM.PC] Routine 03/23/18 14:00 ALT Order 03/24/18 09:00 Hydrocortisone Sod Succinate [Solu-CORTEF] 100 mg IVPUSH Q12H Septic Shock Vasopressin 100 units Dextrose 5% in Water 250 ml IV TITRATE 03/24/18 09:15 Potassium Chloride 20 MEQ,Lidocaine 1% 2 ML IN 100ML NS @ 50 MLS/HR Potassium Chloride 20 meq Lidocaine 1% [Xylocaine 1%] 2 ml Sodium Chloride 0.9% [Normal Saline] 100 ml IV Q2H 03/25/18 05:00 Chest 1V Frontal [CR] DAILY BLOOD GAS ARTERIAL [BG] Timed CBC W/O DIFF,HEMOGRAM [HEME] Timed (1) COMPREHENSIVE METABOLIC PN,CMP [CHEM] Timed 03/26/18 05:00 Chest 1V Frontal [CR] DAILY 03/27/18 05:00 Chest 1V Frontal [CR] DAILY 03/28/18 05:00 Chest 1V Frontal [CR] DAILY - Plan Plan:: ASSESSMENT AND PLAN SIGMOID COLON PERFORATION RESULTING IN ACUTE ABDOMEN AND SEPTIC SHOCK - status post exploratory laparotomy with partial sigmoid colon resection and creation of a colostomy. Remains critically ill with septic shock and respiratory compromise. white blood cell count finally trending down. He has not had any fevers. He had increasing requirement for vasopressor support overnight. -IV vancomycin, meropenem and Azactam -Post operative surgical care per Dr. Adams -Possible delayed primary closure today SEPTIC SHOCK - secondary to intestinal perforation, solid and liquid stool noted throughout the abdominal cavity at the time of surgery. Vasopressor support has increased over the past 24 hours. I'm holding off on any antibiotic changes with seeming decline over the past 24 hours. -Antibiotic therapy as above -Maintenance fluid infusion was discontinued yesterday -Continue norepinephrine and restart vasopressin -Start hydrocortisone every 12 hours ACUTE HYPOXIC RESPIRATORY FAILURE - secondary to septic shock, colon perforation , recent surgery and underlying COPD. Ventilator support minimal at this time and respiratory status has been fairly stable. There is some concern about a leak around his cuff. -Continue mechanical ventilation until he is more hemodynamically stable COPD - [id number] smoking history but no evidence for exacerbation at this time. -Nebulized albuterol as needed -Vigorous pulmonary toilet during the postoperative period ACUTE KIDNEY INJURY - slow and steady improvement in renal function and urine output. He has significant edema from his initial volume resuscitation but significant hypotension and limits her ability to diuresis at this time. -Closely monitor urine output and renal function during the postoperative period HISTORY OF LUNG AND PROSTATE CARCINOMA - lung cancer felt to be stable, currently receiving active treatment for management of prostate carcinoma MAINTENANCE ISSUES -DVT prophylaxis; SCUDs -GI prophylaxis; Protonix 40 mg IV daily during postoperative period -Sorto catheter; patient remains critically ill and catheter remains necessary for strict intake and output monitoring -Nutrition; nothing by mouth, continuing TPN DISPOSITION - anticipate discharge to alf if he survives the hospital stay Stephon Christy M.D.
[2018-03-24] MEDS: Pantoprazole 40 MG Vial IVPUSH SCH (09:09)
--- NOTE | 2018-03-24 09:17 | CR ---
CHEST: Portable CLINICAL HISTORY:Endotracheal tube COMPARISON:Multiple prior studies FINDINGS: Endotracheal tube remains in the distal third of the trachea. There is a right-sided PICC line with the tip in the superior vena cava. There is an NG tube curled in the fundus of the stomach. The tip is near the GE junction Patient has chronic interstitial changes bilaterally. The there is a left pleural effusion similar to prior study. Impression: ET tube and PICC line remain in place Chronic interstitial changes Persistent small left effusion
[2018-03-24] MEDS: Hydrocortisone Sodium Succinate 100 MG/2 ML SDV IVPUSH SCH ×2 (09:51→21:24)
[2018-03-24] MEDS ORDERED: Potassium Chloride 20 MEQ, Lidocaine 1% 2 ML in Sodium Chloride 0.9% 100 ML IV SCH (10:00)
[2018-03-24] MEDS ORDERED: Vasopressin 100 UNITS in Dextrose 5% in Water 250 ML IV SCH ×2 (10:00)
[2018-03-24] MEDS: Potassium Chloride 20 MEQ in Premix Bag 1 BAG IV SCH ×2 (10:09→12:13)
[2018-03-24] MEDS: Vancomycin 1.4 GM in Sodium Chloride 0.9% 250 ML IV SCH (11:13)
[2018-03-24] MEDS ORDERED: Central Total Parenteral Nutrition Bag SCH (11:30)
[2018-03-24] MEDS: Insulin Lispro 100 Unit/ML 3 ML KwikPen SUBCUT SCH ×2 (12:39→18:10)
[2018-03-24] MEDS ORDERED: Heparin Sodium 5,000 Units/ML Vial ONE (19:51)
[2018-03-25] MEDS: Insulin Lispro 100 Unit/ML 3 ML KwikPen SUBCUT SCH ×4 (00:21→18:13)
[2018-03-25] MEDS: Aztreonam/Dextrose-Water 1 GM in Premix Bag 1 BAG IV SCH ×3 (05:02→20:56)
[2018-03-25] MEDS: Nystatin Susp 100,000 Unit/ML 5 ML UD Cup PO SCH ×4 (05:02→21:05)
[2018-03-25] MEDS: 1: AA 5%/Calcium/D15W/Lytes 1,000 ML with MVI, Adult with Vitamin K 10 ML, Chromium/Copp IV SCH ×6 (08:11→22:34)
--- NOTE | 2018-03-25 08:47 | CR ---
CHEST: Portable CLINICAL HISTORY:Intubation COMPARISON:03/24/2018 FINDINGS: Endotracheal tube is in the mid trachea. There is a PICC line in the superior vena cava. There is an NG tube, the stomach. There is persistent opacity in the left lower lung field. This is felt to represent a combination of left pleural effusion and airspace disease. This is similar to prior study. There are chronic interstitial changes bilaterally. Impression: ET tube, NG tube and PICC line remain in place Persistent opacification in the left lung base felt to be a combination of airspace disease and left effusion. Clinical correlation necessary Chronic interstitial changes
[2018-03-25] MEDS ORDERED: Acetaminophen 650 MG Supp RECTAL PRN (09:39)
--- NOTE | 2018-03-25 09:43 | PCM.PN ---
- General Info Date of Service: 03/25/18 Subjective Update: there were no acute events overnight. The patient did develop mild bradycardia in the early hours this morning but blood pressure remained stable. His norepinephrine has been slowly decreased. Kidney function slightly better again today. Good urine output overnight. Still has significant edema. Vent support remains minimal with only 35% FiO2 needed. peak inspiratory pressure of 20. he has not had any fevers. We did lighten his sedation this morning and he has been somewhat alert and able to follow commands such as squeezing hands and wiggling feet. Functional Status: Reports: Other (intubated and sedated) - Review of Systems General: Denies: Fever - Patient Data Vitals - Most Recent: Last Vital Signs Temp 35.5 C 03/25/18 07:33 Pulse 60 03/25/18 09:00 Resp 21 H 03/25/18 09:00 BP 140/55 L 03/25/18 09:00 Pulse Ox 100 03/25/18 05:59 Weight - Most Recent: 69.4 kg I&O - Last 24 Hours: Intake & Output 03/24/18 03/25/18 03/25/18 22:59 06:59 14:59 Intake Total 2125 969 Output Total 505 735 Balance 1620 234 Lab Results Last 24 Hours: Laboratory Results - last 24 hr 03/25/18 03/25/18 03/25/18 Range/Units 05:07 05:07 05:07 WBC 20.3 H (4.5-11.0) K/uL RBC 3.50 L (4.30-5.90) M/uL Hgb 10.4 L (12.0-15.0) g/dL Hct 32.1 L (40.0-54.0) % MCV 92 (80-98) fL MCH 30 (27-31) pg MCHC 32 (32-36) % Plt Count 188 (150-400) K/uL Puncture Site Line ABG pH 7.412 (7.350-7.450) ABG pCO2 33.4 L (35.0-42.0) mmHg ABG pO2 82.8 (75.0-100.0) mmHg ABG HCO3 20.9 L (22.0-26.0) mmol/L ABG Total CO2 19.3 L (23.0-27.0) mmol/L ABG O2 Saturation 96.7 (95.0-98.0) % ABG O2 Content 13.9 L (15.0-23.0) %vol ABG Base Excess -2.6 mm/L ABG Hemoglobin 10.4 L (13.5-18.0) g/dL ABG Oxyhemoglobin 94.9 % ABG Carboxyhemoglobin 1.4 (0.0-1.6) % ABG Methemoglobin 0.5 % O2 Delivery Device Ventilator Oxygen Flow Rate L Sodium 141 (140-148) mmol/L Potassium 4.2 (3.6-5.2) mmol/L Chloride 109 H (100-108) mmol/L Carbon Dioxide 23 (21-32) mmol/L Anion Gap 13.2 (5.0-14.0) mmol/L BUN 55 H (7-18) mg/dL Creatinine 1.3 (0.8-1.3) mg/dL Est Cr Clr Drug Dosing 45.79 mL/min Estimated GFR (MDRD) 54 L (>60) Glucose 210 H (74-106) mg/dL Calcium 7.8 L (8.5-10.1) mg/dL Total Bilirubin 0.3 (0.2-1.0) mg/dL AST 52 H (15-37) U/L ALT 33 (12-78) U/L Alkaline Phosphatase 89 (46-116) U/L Total Protein 4.6 L (6.4-8.2) g/dL Albumin 1.1 L (3.4-5.0) g/dL Globulin 3.5 (2.3-3.5) g/dL Albumin/Globulin Ratio 0.3 L (1.2-2.2) Med Orders - Current: Current Medications Heparin Sodium (Porcine) (Heparin Lock Flush 100 Units/Ml) 500 units FLUSH ASDIRECTED PRN PRN Reason: IV Use Last Admin: 03/22/18 12:28 Dose: 500 units Hydrocortisone Sodium Succinate (Solu-Cortef) 100 mg IVPUSH Q12H [facility] Last Admin: 03/24/18 21:24 Dose: 100 mg Propofol (Diprivan 100 Ml) 100 mls @ 2.082 mls/hr IV TITRATE [facility]; Protocol Last Titration: 03/25/18 09:39 Dose: 0 mcg/kg/min, 0 mls/hr Meropenem 1 gm/ Sodium (Chloride) 50 mls @ 100 mls/hr IV Q12H [facility] Last Admin: 03/25/18 08:10 Dose: 100 mls/hr Aztreonam/Dextrose 1 gm/ (Premix) 50 mls @ 100 mls/hr IV Q8H [facility] Last Admin: 03/25/18 05:02 Dose: 100 mls/hr Norepinephrine Bitartrate 8 mg (/ Dextrose/Water) 250 mls @ 3.75 mls/hr IV TITRATE [facility]; Protocol Last Titration: 03/25/18 07:43 Dose: Infused Vancomycin HCl 1.4 gm/ Sodium (Chloride) 250 mls @ 170 mls/hr IV Q24H [facility] Last Admin: 03/24/18 11:13 Dose: 170 mls/hr Multivitamins/Minerals 10 ml/Chromium/Copper/Manganese/Seleni/Zn 1 ml/ Amino Ac/ Electrol/Dextrose/Calcium 1,011 mls @ 75 mls/hr IV .BY DURATION [facility] Last Admin: 03/24/18 17:10 Dose: 75 mls/hr Amino Ac/Electrol/Dextrose/Calcium (Clinimix E 5/15) 1,000 mls @ 75 mls/hr IV .BY DURATION [facility] Last Admin: 03/25/18 08:11 Dose: 75 mls/hr Vasopressin 100 units/ (Dextrose/Water) 255 mls @ 1.53 mls/hr IV TITRATE [facility]; Protocol Last Admin: 03/24/18 10:04 Dose: 0.01 units/min, 1.53 mls/hr Insulin Human Lispro (Humalog) 0 unit SUBCUT Q6H [facility]; Protocol Last Admin: 03/25/18 05:12 Dose: 2 unit Nystatin (Mycostatin) 5 ml PO QID [facility] Last Admin: 03/25/18 05:02 Dose: 5 ml Pantoprazole Sodium (Protonix Iv) 40 mg IVPUSH DAILY [facility] Last Admin: 03/24/18 09:09 Dose: 40 mg Discontinued Medications Dexamethasone (Dexamethasone) Confirm Administered Dose 4 mg .ROUTE .STK-MED ONE Stop: 03/18/18 19:48 Epinephrine HCl (Adrenalin) Confirm Administered Dose 1 mg .ROUTE .STK-MED ONE Stop: 03/18/18 21:07 Fentanyl (Sublimaze) Confirm Administered Dose 250 mcg .ROUTE .STK-MED ONE Stop: 03/18/18 19:48 Furosemide (Lasix) 20 mg IVPUSH ONETIME ONE Stop: 03/23/18 09:46 Last Admin: 03/23/18 10:18 Dose: 20 mg Glycopyrrolate (Robinul) Confirm Administered Dose 1 mg .ROUTE .STK-MED ONE Stop: 03/18/18 19:48 Heparin Sodium (Porcine) (Heparin Sodium) Confirm Administered Dose 5,000 units .ROUTE .STK-MED ONE Stop: 03/18/18 19:51 Heparin Sodium (Porcine) (Heparin Lock Flush 100 Units/Ml) Confirm Administered Dose 500 units .ROUTE .STK-MED ONE Stop: 03/22/18 12:17 Last Admin: 03/22/18 12:30 Dose: Not Given Heparin Sodium (Porcine) (Heparin Sodium) Confirm Administered Dose 5,000 units .ROUTE .STK-MED ONE Stop: 03/24/18 19:52 Last Admin: 03/24/18 20:33 Dose: 5,000 units Hydromorphone HCl (Dilaudid) 0.5 mg IVPUSH ONETIME ONE Stop: 03/18/18 17:43 Last Admin: 03/18/18 17:47 Dose: 0.5 mg Hydromorphone HCl (Dilaudid) 1 mg IVPUSH ONETIME ONE Stop: 03/18/18 18:18 Last Admin: 03/18/18 18:27 Dose: 1 mg Sodium Chloride (Normal Saline) 1,000 mls @ 1,000 mls/hr IV ASDIRECTED [facility] Last Admin: 03/18/18 17:47 Dose: 1,000 mls/hr Sodium Chloride (Normal Saline) 1,000 mls @ 999 mls/hr IV ASDIRECTED [facility] Last Admin: 03/18/18 19:31 Dose: 999 mls/hr Meropenem 500 mg/ Sodium (Chloride) 50 mls @ 100 mls/hr IV ONETIME ONE Stop: 03/18/18 19:09 Last Admin: 03/18/18 19:01 Dose: 100 mls/hr Sodium Chloride (Normal Saline) Confirm Administered Dose 50 mls @ as directed .ROUTE .STK-MED ONE Stop: 03/18/18 19:40 Last Admin: 03/18/18 20:19 Dose: Not Given Aztreonam 2 gm/ Sodium (Chloride) 50 mls @ 100 mls/hr IV ONETIME ONE Stop: 03/18/18 20:01 Last Admin: 03/18/18 20:44 Dose: 100 mls/hr Meropenem 500 mg/ Sodium (Chloride) 50 mls @ 100 mls/hr IV ONETIME ONE Stop: 03/18/18 20:00 Last Admin: 03/18/18 19:40 Dose: 100 mls/hr Sodium Chloride (Normal Saline) Confirm Administered Dose 250 mls @ as directed .ROUTE .[facility]-MED ONE Stop: 03/18/18 19:59 Lactated Ringer's (Ringers, Lactated) Confirm Administered Dose 1,000 mls @ as directed .ROUTE .[facility]-MED ONE Stop: 03/18/18 19:59 Sodium Chloride (Normal Saline) Confirm Administered Dose 500 mls @ as directed .ROUTE .[facility] ONE Stop: 03/18/18 19:59 Norepinephrine Bitartrate 8 mg (/ Dextrose/Water) 258 mls @ 3.87 mls/hr IV TITRATE [facility]; Protocol Last Admin: 03/19/18 11:45 Dose: 12 mcg/min, 23.22 mls/hr Lactated Ringer's (Ringers, Lactated) Confirm Administered Dose 1,000 mls @ as directed .ROUTE .[facility]-MED ONE Stop: 03/18/18 21:42 Aztreonam 1 gm/ Sodium (Chloride) 50 mls @ 100 mls/hr IV Q8H [facility] Last Admin: 03/19/18 05:29 Dose: 100 mls/hr Potassium Chloride/Dextrose/Sod Cl (D5 1/2 Ns W/ 20 Meq/L Kcl) 1,000 mls @ 150 mls/hr IV ASDIRECTED [facility] Last Admin: 03/18/18 23:11 Dose: 150 mls/hr Lactated Ringer's (Ringers, Lactated) 1,000 mls @ 500 mls/hr IV ASDIRECTED [facility] Last Admin: 03/19/18 01:23 Dose: 500 mls/hr Vasopressin 100 units/ (Dextrose/Water) 255 mls @ 1.53 mls/hr IV TITRATE [facility]; Protocol Stop: 03/21/18 13:00 Last Titration: 03/21/18 11:03 Dose: 0.02 units/min, 3.06 mls/hr Lactated Ringer's (Ringers, Lactated) 1,000 mls @ 500 mls/hr IV BOLUS [facility] Stop: 03/19/18 05:29 Last Admin: 03/19/18 04:02 Dose: 500 mls/hr Lactated Ringer's (Ringers, Lactated) 1,000 mls @ 500 mls/hr IV .BOLUS ONE Stop: 03/19/18 14:59 Last Admin: 03/19/18 14:27 Dose: 500 mls/hr Lactated Ringer's (Ringers, Lactated) 1,000 mls @ 150 mls/hr IV ASDIRECTED [facility] Last Admin: 03/21/18 11:53 Dose: 150 mls/hr Magnesium Sulfate 2 gm/ Premix 50 mls @ 25 mls/hr IV Q6H [facility] Stop: 03/20/18 17:59 Last Admin: 03/20/18 16:30 Dose: 25 mls/hr Vancomycin HCl 1.25 gm/ Sodium (Chloride) 250 mls @ 170 mls/hr IV Q24H [facility] Last Admin: 03/22/18 10:06 Dose: 170 mls/hr Vasopressin 40 units/ Dextrose (/Water) 100 mls @ 3 mls/hr IV TITRATE [facility]; Protocol Last Titration: 03/23/18 01:00 Dose: 0 units/min, 0 mls/hr Potassium Chloride 20 meq/ (Premix) 100 mls @ 50 mls/hr IV Q2H [facility] Stop: 03/21/18 22:59 Last Admin: 03/21/18 22:20 Dose: 50 mls/hr Potassium Chloride 20 meq/ (Premix) 100 mls @ 50 mls/hr IV Q2H [facility] Stop: 03/22/18 12:59 Last Admin: 03/22/18 11:30 Dose: 50 mls/hr Potassium Chloride 20 meq/ (Premix) 100 mls @ 50 mls/hr IV Q2H [facility] Stop: 03/22/18 17:29 Last Admin: 03/22/18 16:13 Dose: 50 mls/hr Potassium Chloride (Kcl 20 Meq In Water 100 Ml) 100 mls @ 50 mls/hr IV Q2H [facility] Stop: 03/23/18 01:59 Last Admin: 03/23/18 00:53 Dose: 50 mls/hr Potassium Chloride 40 meq/ (Premix) 100 mls @ 25 mls/hr IV ONETIME ONE Stop: 03/23/18 14:29 Last Admin: 03/23/18 10:31 Dose: 25 mls/hr Potassium Chloride 20 meq/ (Premix) 100 mls @ 50 mls/hr IV Q2H [facility] Stop: 03/24/18 13:59 Last Admin: 03/24/18 12:13 Dose: 50 mls/hr Meropenem (Merrem) Confirm Administered Dose 500 mg .ROUTE .STK-MED ONE Stop: 03/18/18 19:40 Last Admin: 03/18/18 20:19 Dose: Not Given Neostigmine Methylsulfate (Neostigmine) Confirm Administered Dose 5 mg .ROUTE .STK-MED ONE Stop: 03/18/18 19:48 Non-Formulary Medication (Total Parenteral Nutrition, Central) 1,000 ml .XX .Continue Order [facility]; Protocol Stop: 03/24/18 11:31 Ondansetron HCl (Zofran) 4 mg IVPUSH ONETIME ONE Stop: 03/18/18 18:18 Last Admin: 03/18/18 18:27 Dose: 4 mg Ondansetron HCl (Zofran) Confirm Administered Dose 4 mg .ROUTE .STK-MED ONE Stop: 03/18/18 19:48 Phenylephrine HCl (Isaías-Synephrine) Confirm Administered Dose 10 mg .ROUTE .STK- MED ONE Stop: 03/18/18 20:05 Propofol (Diprivan 20 Ml) Confirm Administered Dose 200 mg .ROUTE .STK-MED ONE Stop: 03/18/18 19:48 Rocuronium Wells (Zemuron) Confirm Administered Dose 50 mg .ROUTE .STK-MED ONE Stop: 03/18/18 19:48 Succinylcholine Chloride (Quelicin) Confirm Administered Dose 200 mg .ROUTE .STK -MED ONE Stop: 03/18/18 19:48 Vancomycin HCl (Vancomycin) 1 gm IV .PHARMACY TO DOSE [facility] Stop: 03/21/18 16:00 - Exam Quality Assessment: Supplemental Oxygen, Central Line/PICC, Urine Catheter, DVT Prophylaxis, Restraints General: No Acute Distress, Sedated. No: Alert HEENT: Pupils Equal. No: Scleral Icterus Neck: Supple. No: Lymphadenopathy Lungs: Normal Respiratory Effort, Decreased Breath Sounds (both bases, left > right ), Crackles (left lung base) GI/Abdominal Exam: Soft, No Distention, Abnormal Bowel Sounds (hypoactive), Other (Open abdominal wound, no erythema or induration ) Extremities: No Pedal Edema, Other (swelling both arms ) Skin: Warm, Dry Psy/Mental Status: No: Alert, Agitated - Problem List Review Problem List Initiated/Reviewed/Updated: Yes - My Orders Last 24 Hours: My Active Orders 03/24/18 09:00 Hydrocortisone Sod Succinate [Solu-CORTEF] 100 mg IVPUSH Q12H 03/24/18 10:00 Vasopressin 100 units Dextrose 5% in Water 250 ml IV TITRATE 03/24/18 11:29 Communication Order [RC] PRN Communication Order [RC] PRN Notify Provider [RC] PRN 03/24/18 12:00 Blood Glucose Check, Bedside [RC] Q6H Insulin Lispro [HumaLOG] See Protocol SUBCUT Q6H 03/24/18 15:24 Restraint Initiate Non-VIOL/Non-SD [OM.PC] Routine 03/25/18 09:39 Acetaminophen [Tylenol] 650 mg RECTAL Q4H PRN Morphine 4 mg IVPUSH Q2H PRN 03/25/18 09:41 Furosemide [Lasix] 20 mg IVPUSH NOW ONE 03/26/18 05:00 Chest 1V Frontal [CR] DAILY BASIC METABOLIC PANEL,BMP [CHEM] Timed BLOOD GAS ARTERIAL [BG] Timed CBC W/O DIFF,HEMOGRAM [HEME] Timed (1) MAGNESIUM [CHEM] Timed 03/27/18 05:00 Chest 1V Frontal [CR] DAILY 03/28/18 05:00 Chest 1V Frontal [CR] DAILY - Plan Plan:: ASSESSMENT AND PLAN SIGMOID COLON PERFORATION RESULTING IN ACUTE ABDOMEN AND SEPTIC SHOCK - status post exploratory laparotomy with partial sigmoid colon resection and creation of a colostomy. Remains critically ill with septic shock and respiratory compromise. no fevers overnight. Vasopressor support improving. No return of bowel function as of yet. -meropenem and Azactam -Discontinue vancomycin -Post operative surgical care per Dr. Adams -morphine as needed for pain SEPTIC SHOCK - secondary to intestinal perforation, solid and liquid stool noted throughout the abdominal cavity at the time of surgery. vasopressor requirements have decreased overnight. Hopefully these can be decreased further over the next 24 hours. -Antibiotic therapy as above -Continue norepinephrine and wean as able -continue hydrocortisone ACUTE HYPOXIC RESPIRATORY FAILURE - secondary to septic shock, colon perforation , recent surgery and underlying COPD. Ventilator support minimal at this time and respiratory status has been fairly stable. he has done well with lightened sedation today. -Minimize sedation during the day and re-sedate overnight -Continue mechanical ventilation until he is more hemodynamically stable STEROID-INDUCED HYPERGLYCEMIA - patient has been receiving hydrocortisone for the past 24 hours and is on TPN. blood sugars moderately elevated today. -Sliding-scale insulin -Start insulin in TPN tomorrow COPD - 60-mbdx-eafe smoking history but no evidence for exacerbation at this time. -Nebulized albuterol as needed -Vigorous pulmonary toilet during the postoperative period ACUTE KIDNEY INJURY - slow and steady improvement in renal function and urine output. He has significant edema from his initial volume resuscitation, planning to diuresis today. -Closely monitor urine output and renal function during the postoperative period HISTORY OF LUNG AND PROSTATE CARCINOMA - lung cancer felt to be stable, currently receiving active treatment for management of prostate carcinoma MAINTENANCE ISSUES -DVT prophylaxis; SCUDs -GI prophylaxis; Protonix 40 mg IV daily during postoperative period -Sorto catheter; patient remains critically ill and catheter remains necessary for strict intake and output monitoring -Nutrition; nothing by mouth, continuing TPN DISPOSITION - anticipate discharge to [facility] if he survives the hospital stay Stephon Christy M.D.
[2018-03-25] MEDS: Pantoprazole 40 MG Vial IVPUSH SCH (09:47)
[2018-03-25] MEDS: Hydrocortisone Sodium Succinate 100 MG/2 ML SDV IVPUSH SCH ×2 (09:47→20:56)
[2018-03-25] MEDS ORDERED: Furosemide 20 MG/2 ML VIAL IVPUSH ONE (10:00)
[2018-03-25] MEDS ORDERED: Central Total Parenteral Nutrition Bag SCH (10:15)
[2018-03-25] MEDS: Morphine 4 MG/ML Syringe IVPUSH PRN ×3 (10:51→20:37)
--- NOTE | 2018-03-25 11:00 | PCM.SURGPN ---
- General Info Date of Service: 03/25/18 Date of Surgery/Procedure: 03/18/18 POD#: 7 Post-Op Diagnosis: Perforated sigmoid colon, [place] IV Admission Diagnosis/Problem: Perforation of sigmoid colon Functional Status: Reports: Pain Controlled, Urinating (Has Sorto). Denies: Tolerating Diet, Ambulating - Patient Data Vitals - Most Recent: Last Vital Signs Temp 96 F 03/25/18 07:33 Pulse 60 03/25/18 09:00 Resp 21 H 03/25/18 09:00 BP 140/55 L 03/25/18 09:00 Pulse Ox 100 03/25/18 05:59 Weight - Most Recent: 153 lb 0.013 oz I&O - Last 24 Hours: Intake & Output 03/24/18 03/25/18 03/25/18 22:59 06:59 14:59 Intake Total 2125 969 Output Total 505 735 225 Balance 1620 234 -225 Lab Results Last 24 Hrs: Laboratory Results - last 24 hr 03/25/18 03/25/18 03/25/18 Range/Units 05:07 05:07 05:07 WBC 20.3 H (4.5-11.0) K/uL RBC 3.50 L (4.30-5.90) M/uL Hgb 10.4 L (12.0-15.0) g/dL Hct 32.1 L (40.0-54.0) % MCV 92 (80-98) fL MCH 30 (27-31) pg MCHC 32 (32-36) % Plt Count 188 (150-400) K/uL Puncture Site Line ABG pH 7.412 (7.350-7.450) ABG pCO2 33.4 L (35.0-42.0) mmHg ABG pO2 82.8 (75.0-100.0) mmHg ABG HCO3 20.9 L (22.0-26.0) mmol/L ABG Total CO2 19.3 L (23.0-27.0) mmol/L ABG O2 Saturation 96.7 (95.0-98.0) % ABG O2 Content 13.9 L (15.0-23.0) %vol ABG Base Excess -2.6 mm/L ABG Hemoglobin 10.4 L (13.5-18.0) g/dL ABG Oxyhemoglobin 94.9 % ABG Carboxyhemoglobin 1.4 (0.0-1.6) % ABG Methemoglobin 0.5 % O2 Delivery Device Ventilator Oxygen Flow Rate L Sodium 141 (140-148) mmol/L Potassium 4.2 (3.6-5.2) mmol/L Chloride 109 H (100-108) mmol/L Carbon Dioxide 23 (21-32) mmol/L Anion Gap 13.2 (5.0-14.0) mmol/L BUN 55 H (7-18) mg/dL Creatinine 1.3 (0.8-1.3) mg/dL Est Cr Clr Drug Dosing 45.79 mL/min Estimated GFR (MDRD) 54 L (>60) Glucose 210 H (74-106) mg/dL Calcium 7.8 L (8.5-10.1) mg/dL Total Bilirubin 0.3 (0.2-1.0) mg/dL AST 52 H (15-37) U/L ALT 33 (12-78) U/L Alkaline Phosphatase 89 (46-116) U/L Total Protein 4.6 L (6.4-8.2) g/dL Albumin 1.1 L (3.4-5.0) g/dL Globulin 3.5 (2.3-3.5) g/dL Albumin/Globulin Ratio 0.3 L (1.2-2.2) Med Orders - Current: Current Medications Acetaminophen (Tylenol) 650 mg RECTAL Q4H PRN PRN Reason: Fever Heparin Sodium (Porcine) (Heparin Lock Flush 100 Units/Ml) 500 units FLUSH ASDIRECTED PRN PRN Reason: IV Use Last Admin: 03/22/18 12:28 Dose: 500 units Hydrocortisone Sodium Succinate (Solu-Cortef) 100 mg IVPUSH Q12H [facility] Last Admin: 03/25/18 09:47 Dose: 100 mg Propofol (Diprivan 100 Ml) 100 mls @ 2.082 mls/hr IV TITRATE [facility]; Protocol Last Titration: 03/25/18 09:39 Dose: 0 mcg/kg/min, 0 mls/hr Meropenem 1 gm/ Sodium (Chloride) 50 mls @ 100 mls/hr IV Q12H [facility] Last Admin: 03/25/18 08:10 Dose: 100 mls/hr Aztreonam/Dextrose 1 gm/ (Premix) 50 mls @ 100 mls/hr IV Q8H [facility] Last Admin: 03/25/18 05:02 Dose: 100 mls/hr Norepinephrine Bitartrate 8 mg (/ Dextrose/Water) 250 mls @ 3.75 mls/hr IV TITRATE [facility]; Protocol Last Titration: 03/25/18 07:43 Dose: Infused Multivitamins/Minerals 10 ml/Chromium/Copper/Manganese/Seleni/Zn 1 ml/ Amino Ac/ Electrol/Dextrose/Calcium 1,011 mls @ 75 mls/hr IV .BY DURATION [facility] Last Admin: 03/24/18 17:10 Dose: 75 mls/hr Amino Ac/Electrol/Dextrose/Calcium (Clinimix E 5/15) 1,000 mls @ 75 mls/hr IV .BY DURATION [facility] Last Admin: 03/25/18 08:11 Dose: 75 mls/hr Vasopressin 100 units/ (Dextrose/Water) 255 mls @ 1.53 mls/hr IV TITRATE [facility]; Protocol Last Admin: 03/24/18 10:04 Dose: 0.01 units/min, 1.53 mls/hr Insulin Human Lispro (Humalog) 0 unit SUBCUT Q6H [facility]; Protocol Last Admin: 03/25/18 05:12 Dose: 2 unit Morphine Sulfate (Morphine) 4 mg IVPUSH Q2H PRN PRN Reason: Pain Non-Formulary Medication (Total Parenteral Nutrition, Central) 1,000 ml .XX .Continue Order [facility]; Protocol Nystatin (Mycostatin) 5 ml PO QID [facility] Last Admin: 03/25/18 10:17 Dose: 5 ml Pantoprazole Sodium (Protonix Iv) 40 mg IVPUSH DAILY [facility] Last Admin: 03/25/18 09:47 Dose: 40 mg Discontinued Medications Dexamethasone (Dexamethasone) Confirm Administered Dose 4 mg .ROUTE .STK-MED ONE Stop: 03/18/18 19:48 Epinephrine HCl (Adrenalin) Confirm Administered Dose 1 mg .ROUTE .STK-MED ONE Stop: 03/18/18 21:07 Fentanyl (Sublimaze) Confirm Administered Dose 250 mcg .ROUTE .STK-MED ONE Stop: 03/18/18 19:48 Furosemide (Lasix) 20 mg IVPUSH ONETIME ONE Stop: 03/23/18 09:46 Last Admin: 03/23/18 10:18 Dose: 20 mg Furosemide (Lasix) 20 mg IVPUSH NOW ONE Stop: 03/25/18 10:01 Last Admin: 03/25/18 10:17 Dose: 20 mg Glycopyrrolate (Robinul) Confirm Administered Dose 1 mg .ROUTE .STK-MED ONE Stop: 03/18/18 19:48 Heparin Sodium (Porcine) (Heparin Sodium) Confirm Administered Dose 5,000 units .ROUTE .STK-MED ONE Stop: 03/18/18 19:51 Heparin Sodium (Porcine) (Heparin Lock Flush 100 Units/Ml) Confirm Administered Dose 500 units .ROUTE .STK-MED ONE Stop: 03/22/18 12:17 Last Admin: 03/22/18 12:30 Dose: Not Given Heparin Sodium (Porcine) (Heparin Sodium) Confirm Administered Dose 5,000 units .ROUTE .ST-MED ONE Stop: 03/24/18 19:52 Last Admin: 03/24/18 20:33 Dose: 5,000 units Hydromorphone HCl (Dilaudid) 0.5 mg IVPUSH ONETIME ONE Stop: 03/18/18 17:43 Last Admin: 03/18/18 17:47 Dose: 0.5 mg Hydromorphone HCl (Dilaudid) 1 mg IVPUSH ONETIME ONE Stop: 03/18/18 18:18 Last Admin: 03/18/18 18:27 Dose: 1 mg Sodium Chloride (Normal Saline) 1,000 mls @ 1,000 mls/hr IV ASDIRECTED [facility] Last Admin: 03/18/18 17:47 Dose: 1,000 mls/hr Sodium Chloride (Normal Saline) 1,000 mls @ 999 mls/hr IV ASDIRECTED [facility] Last Admin: 03/18/18 19:31 Dose: 999 mls/hr Meropenem 500 mg/ Sodium (Chloride) 50 mls @ 100 mls/hr IV ONETIME ONE Stop: 03/18/18 19:09 Last Admin: 03/18/18 19:01 Dose: 100 mls/hr Sodium Chloride (Normal Saline) Confirm Administered Dose 50 mls @ as directed .ROUTE .STK-MED ONE Stop: 03/18/18 19:40 Last Admin: 03/18/18 20:19 Dose: Not Given Aztreonam 2 gm/ Sodium (Chloride) 50 mls @ 100 mls/hr IV ONETIME ONE Stop: 03/18/18 20:01 Last Admin: 03/18/18 20:44 Dose: 100 mls/hr Meropenem 500 mg/ Sodium (Chloride) 50 mls @ 100 mls/hr IV ONETIME ONE Stop: 03/18/18 20:00 Last Admin: 03/18/18 19:40 Dose: 100 mls/hr Sodium Chloride (Normal Saline) Confirm Administered Dose 250 mls @ as directed .ROUTE .STK-MED ONE Stop: 03/18/18 19:59 Lactated Ringer's (Ringers, Lactated) Confirm Administered Dose 1,000 mls @ as directed .ROUTE .ST-MED ONE Stop: 03/18/18 19:59 Sodium Chloride (Normal Saline) Confirm Administered Dose 500 mls @ as [facility] Stop: 03/18/18 19:59 Norepinephrine Bitartrate 8 mg (/ Dextrose/Water) 258 mls @ 3.87 mls/hr IV TITRATE [facility]; Protocol Last Admin: 03/19/18 11:45 Dose: 12 mcg/min, 23.22 mls/hr Lactated Ringer's (Ringers, Lactated) Confirm Administered Dose 1,000 mls @ as directed .ROUTE .[facility] ONE Stop: 03/18/18 21:42 Aztreonam 1 gm/ Sodium (Chloride) 50 mls @ 100 mls/hr IV Q8H [facility] Last Admin: 03/19/18 05:29 Dose: 100 mls/hr Potassium Chloride/Dextrose/Sod Cl (D5 1/2 Ns W/ 20 Meq/L Kcl) 1,000 mls @ 150 mls/hr IV ASDIRECTED [facility] Last Admin: 03/18/18 23:11 Dose: 150 mls/hr Lactated Ringer's (Ringers, Lactated) 1,000 mls @ 500 mls/hr IV ASDIRECTED [facility] Last Admin: 03/19/18 01:23 Dose: 500 mls/hr Vasopressin 100 units/ (Dextrose/Water) 255 mls @ 1.53 mls/hr IV TITRATE [facility]; Protocol Stop: 03/21/18 13:00 Last Titration: 03/21/18 11:03 Dose: 0.02 units/min, 3.06 mls/hr Lactated Ringer's (Ringers, Lactated) 1,000 mls @ 500 mls/hr IV BOLUS [facility] Stop: 03/19/18 05:29 Last Admin: 03/19/18 04:02 Dose: 500 mls/hr Lactated Ringer's (Ringers, Lactated) 1,000 mls @ 500 mls/hr IV .BOLUS ONE Stop: 03/19/18 14:59 Last Admin: 03/19/18 14:27 Dose: 500 mls/hr Lactated Ringer's (Ringers, Lactated) 1,000 mls @ 150 mls/hr IV ASDIRECTED [facility] Last Admin: 03/21/18 11:53 Dose: 150 mls/hr Magnesium Sulfate 2 gm/ Premix 50 mls @ 25 mls/hr IV Q6H [facility] Stop: 03/20/18 17:59 Last Admin: 03/20/18 16:30 Dose: 25 mls/hr Vancomycin HCl 1.25 gm/ Sodium (Chloride) 250 mls @ 170 mls/hr IV Q24H [facility] Last Admin: 03/22/18 10:06 Dose: 170 mls/hr Vasopressin 40 units/ Dextrose (/Water) 100 mls @ 3 mls/hr IV TITRATE [facility]; Protocol Last Titration: 03/23/18 01:00 Dose: 0 units/min, 0 mls/hr Potassium Chloride 20 meq/ (Premix) 100 mls @ 50 mls/hr IV Q2H [facility] Stop: 03/21/18 22:59 Last Admin: 03/21/18 22:20 Dose: 50 mls/hr Potassium Chloride 20 meq/ (Premix) 100 mls @ 50 mls/hr IV Q2H [facility] Stop: 03/22/18 12:59 Last Admin: 03/22/18 11:30 Dose: 50 mls/hr Potassium Chloride 20 meq/ (Premix) 100 mls @ 50 mls/hr IV Q2H [facility] Stop: 03/22/18 17:29 Last Admin: 03/22/18 16:13 Dose: 50 mls/hr Potassium Chloride (Kcl 20 Meq In Water 100 Ml) 100 mls @ 50 mls/hr IV Q2H [facility] Stop: 03/23/18 01:59 Last Admin: 03/23/18 00:53 Dose: 50 mls/hr Potassium Chloride 40 meq/ (Premix) 100 mls @ 25 mls/hr IV ONETIME ONE Stop: 03/23/18 14:29 Last Admin: 03/23/18 10:31 Dose: 25 mls/hr Vancomycin HCl 1.4 gm/ Sodium (Chloride) 250 mls @ 170 mls/hr IV Q24H [facility] Last Admin: 03/24/18 11:13 Dose: 170 mls/hr Potassium Chloride 20 meq/ (Premix) 100 mls @ 50 mls/hr IV Q2H [facility] Stop: 03/24/18 13:59 Last Admin: 03/24/18 12:13 Dose: 50 mls/hr Meropenem (Merrem) Confirm Administered Dose 500 mg .ROUTE .STK-MED ONE Stop: 03/18/18 19:40 Last Admin: 03/18/18 20:19 Dose: Not Given Neostigmine Methylsulfate (Neostigmine) Confirm Administered Dose 5 mg .ROUTE .STK-MED ONE Stop: 03/18/18 19:48 Non-Formulary Medication (Total Parenteral Nutrition, Central) 1,000 ml .XX .Continue Order [facility]; Protocol Stop: 03/24/18 11:31 Ondansetron HCl (Zofran) 4 mg IVPUSH ONETIME ONE Stop: 03/18/18 18:18 Last Admin: 03/18/18 18:27 Dose: 4 mg Ondansetron HCl (Zofran) Confirm Administered Dose 4 mg .ROUTE .STK-MED ONE Stop: 03/18/18 19:48 Phenylephrine HCl (Isaías-Synephrine) Confirm Administered Dose 10 mg .ROUTE .STK- MED ONE Stop: 03/18/18 20:05 Propofol (Diprivan 20 Ml) Confirm Administered Dose 200 mg .ROUTE .STK-MED ONE Stop: 03/18/18 19:48 Rocuronium [place] (Zemuron) Confirm Administered Dose 50 mg .ROUTE .STK-MED ONE Stop: 03/18/18 19:48 Succinylcholine Chloride (Quelicin) Confirm Administered Dose 200 mg .ROUTE .STK -MED ONE Stop: 03/18/18 19:48 Vancomycin HCl (Vancomycin) 1 gm IV .PHARMACY TO DOSE [facility] Stop: 03/21/18 16:00 - Exam Wound/Incisions: Dressing Dry and Intact, Drainage Quality Assessment: Supplemental Oxygen, Central Line/PICC, Urine Catheter, DVT Prophylaxis, Restraints General: Sedated Lungs: Clear to Auscultation Cardiovascular: Regular Rate, Regular Rhythm GI/Abdominal Exam: Abnormal Bowel Sounds (Hypoactive). No: Normal Bowel Sounds Extremities: No Pedal Edema (Scrotal and upper extremity edema. ) Skin: Warm, Dry Neurological: No New Focal Deficit Psy/Mental Status: Other (Sedated) - Problem List & Annotations (1) Perforation of sigmoid colon SNOMED Code(s): 855408191 Code(s): K63.1 - PERFORATION OF INTESTINE (NONTRAUMATIC) Status: Acute Current Visit: Yes - Problem List Review Problem List Initiated/Reviewed/Updated: Yes - My Orders Last 24 Hours: Active Orders 24 hr Category Date Time Status Blood Glucose Check, Bedside [RC] Q6H Care 03/24/18 12:00 Active Communication Order [RC] PRN Care 03/24/18 11:29 Active Communication Order [RC] PRN Care 03/24/18 11:29 Active Notify Provider [RC] PRN Care 03/24/18 11:29 Active Chest 1V Frontal [CR] DAILY Exams 03/26/18 05:00 Ordered Chest 1V Frontal [CR] DAILY Exams 03/27/18 05:00 Ordered Chest 1V Frontal [CR] DAILY Exams 03/28/18 05:00 Ordered BASIC METABOLIC PANEL,BMP [CHEM] Timed Lab 03/26/18 05:00 Ordered BLOOD GAS ARTERIAL [BG] Timed Lab 03/26/18 05:00 Ordered CBC W/O DIFF,HEMOGRAM [HEME] Timed (1) Lab 03/26/18 05:00 Ordered MAGNESIUM [CHEM] Timed Lab 03/26/18 05:00 Ordered Acetaminophen [Tylenol] Med 03/25/18 09:39 Active 650 mg RECTAL Q4H PRN Central TPN [Total Parenteral Nutrition, Central] Med 03/25/18 10:15 Active 1,000 ml .XX .Continue Order Insulin Lispro [HumaLOG] Med 03/24/18 12:00 Active See Protocol SUBCUT Q6H Morphine Med 03/25/18 09:39 Active 4 mg IVPUSH Q2H PRN Vasopressin 100 units Med 03/24/18 10:00 Active Dextrose 5% in Water 250 ml IV TITRATE Restraint Continue N-V/N-SD [OM.PC] Routine Oth 03/25/18 10:10 Ordered Restraint Initiate Non-VIOL/Non-SD [OM.PC] Routine Oth 03/24/18 15:24 Ordered Medication Orders Acetaminophen (Tylenol) 650 mg RECTAL Q4H PRN PRN Reason: Fever Heparin Sodium (Porcine) (Heparin Lock Flush 100 Units/Ml) 500 units FLUSH ASDIRECTED PRN PRN Reason: IV Use Last Admin: 03/22/18 12:28 Dose: 500 units Hydrocortisone Sodium Succinate (Solu-Cortef) 100 mg IVPUSH Q12H [facility] Last Admin: 03/25/18 09:47 Dose: 100 mg Admin: 03/24/18 21:24 Dose: 100 mg Admin: 03/24/18 09:51 Dose: 100 mg Propofol (Diprivan 100 Ml) 100 mls @ 2.082 mls/hr IV TITRATE [facility]; Protocol Last Titration: 03/25/18 09:39 Dose: 0 mcg/kg/min, 0 mls/hr Admin: 03/25/18 07:31 Dose: 36 mcg/kg/min, 14.99 mls/hr Titration: 03/25/18 07:02 Dose: 36 mcg/kg/min, 14.99 mls/hr Titration: 03/25/18 04:13 Dose: 36 mcg/kg/min, 14.99 mls/hr Titration: 03/25/18 03:40 Dose: 41 mcg/kg/min, 17.072 mls/hr Admin: 03/25/18 00:23 Dose: 36 mcg/kg/min, 14.99 mls/hr Titration: 03/25/18 00:23 Dose: 36 mcg/kg/min, 14.99 mls/hr Titration: 03/24/18 20:47 Dose: 36 mcg/kg/min, 14.99 mls/hr Admin: 03/24/18 17:38 Dose: 33 mcg/kg/min, 13.741 mls/hr Titration: 03/24/18 17:38 Dose: 33 mcg/kg/min, 13.741 mls/hr Titration: 03/24/18 16:55 Dose: 33 mcg/kg/min, 13.741 mls/hr Admin: 03/24/18 10:35 Dose: 30 mcg/kg/min, 12.492 mls/hr Titration: 03/24/18 10:26 Dose: 30 mcg/kg/min, 12.492 mls/hr Admin: 03/24/18 02:25 Dose: 30 mcg/kg/min, 12.492 mls/hr Titration: 03/24/18 02:25 Dose: 30 mcg/kg/min, 12.492 mls/hr Admin: 03/23/18 19:30 Dose: 30 mcg/kg/min, 12.492 mls/hr Titration: 03/23/18 18:26 Dose: 30 mcg/kg/min, 12.492 mls/hr Admin: 03/23/18 10:25 Dose: 30 mcg/kg/min, 12.492 mls/hr Titration: 03/23/18 10:25 Dose: 30 mcg/kg/min, 12.492 mls/hr Admin: 03/23/18 04:37 Dose: 30 mcg/kg/min, 12.492 mls/hr Titration: 03/23/18 04:37 Dose: 30 mcg/kg/min, 12.492 mls/hr Admin: 03/22/18 21:42 Dose: 30 mcg/kg/min, 12.492 mls/hr Titration: 03/22/18 14:59 Dose: 30 mcg/kg/min, 12.492 mls/hr Admin: 03/22/18 06:58 Dose: 30 mcg/kg/min, 12.492 mls/hr Titration: 03/22/18 06:58 Dose: 30 mcg/kg/min, 12.492 mls/hr Admin: 03/22/18 00:19 Dose: 30 mcg/kg/min, 12.492 mls/hr Titration: 03/21/18 23:46 Dose: 30 mcg/kg/min, 12.492 mls/hr Titration: 03/21/18 22:00 Dose: 30 mcg/kg/min, 12.492 mls/hr Titration: 03/21/18 21:45 Dose: 25 mcg/kg/min, 10.41 mls/hr Admin: 03/21/18 13:55 Dose: 23 mcg/kg/min, 9.577 mls/hr Titration: 03/21/18 13:55 Dose: 23 mcg/kg/min, 9.577 mls/hr Admin: 03/21/18 04:59 Dose: 23 mcg/kg/min, 9.577 mls/hr Titration: 03/21/18 04:59 Dose: 23 mcg/kg/min, 9.577 mls/hr Admin: 03/20/18 19:28 Dose: 23 mcg/kg/min, 9.577 mls/hr Titration: 03/20/18 19:28 Dose: 23 mcg/kg/min, 9.577 mls/hr Titration: 03/20/18 11:48 Dose: 23 mcg/kg/min, 9.577 mls/hr Admin: 03/20/18 09:35 Dose: 20 mcg/kg/min, 8.328 mls/hr Titration: 03/20/18 09:35 Dose: 20 mcg/kg/min, 8.328 mls/hr Admin: 03/19/18 22:55 Dose: 20 mcg/kg/min, 8.328 mls/hr Titration: 03/19/18 20:57 Dose: 20 mcg/kg/min, 8.328 mls/hr Admin: 03/19/18 08:56 Dose: 20 mcg/kg/min, 8.328 mls/hr Titration: 03/19/18 08:56 Dose: 25 mcg/kg/min, 10.41 mls/hr Titration: 03/19/18 06:13 Dose: 25 mcg/kg/min, 10.41 mls/hr Titration: 03/19/18 00:26 Dose: 20 mcg/kg/min, 8.328 mls/hr Titration: 03/18/18 23:29 Dose: 10 mcg/kg/min, 4.164 mls/hr Titration: 03/18/18 23:18 Dose: 15 mcg/kg/min, 6.246 mls/hr Admin: 03/18/18 22:49 Dose: 5 mcg/kg/min, 2.082 mls/hr Meropenem 1 gm/ Sodium (Chloride) 50 mls @ 100 mls/hr IV Q12H [facility] Last Admin: 03/25/18 08:10 Dose: 100 mls/hr Admin: 03/24/18 19:48 Dose: 100 mls/hr Admin: 03/24/18 07:37 Dose: 100 mls/hr Admin: 03/23/18 20:02 Dose: 100 mls/hr Admin: 03/23/18 07:50 Dose: 100 mls/hr Admin: 03/22/18 19:59 Dose: 100 mls/hr Admin: 03/22/18 08:09 Dose: 100 mls/hr Admin: 03/21/18 20:34 Dose: 100 mls/hr Admin: 03/21/18 09:04 Dose: 100 mls/hr Admin: 03/20/18 20:49 Dose: 100 mls/hr Admin: 03/20/18 08:04 Dose: 100 mls/hr Admin: 03/19/18 20:25 Dose: 100 mls/hr Admin: 03/19/18 08:12 Dose: 100 mls/hr Aztreonam/Dextrose 1 gm/ (Premix) 50 mls @ 100 mls/hr IV Q8H [facility] Last Admin: 03/25/18 05:02 Dose: 100 mls/hr Admin: 03/24/18 20:37 Dose: 100 mls/hr Admin: 03/24/18 12:45 Dose: 100 mls/hr Admin: 03/24/18 04:00 Dose: 100 mls/hr Admin: 03/23/18 20:55 Dose: 100 mls/hr Admin: 03/23/18 14:04 Dose: 100 mls/hr Admin: 03/23/18 04:37 Dose: 100 mls/hr Admin: 03/22/18 21:41 Dose: 100 mls/hr Admin: 03/22/18 14:00 Dose: 100 mls/hr Admin: 03/22/18 04:24 Dose: 100 mls/hr Admin: 03/21/18 20:38 Dose: 100 mls/hr Admin: 03/21/18 12:26 Dose: 100 mls/hr Admin: 03/21/18 04:59 Dose: 100 mls/hr Admin: 03/20/18 21:31 Dose: 100 mls/hr Admin: 03/20/18 13:28 Dose: 100 mls/hr Admin: 03/20/18 05:34 Dose: 100 mls/hr Admin: 03/19/18 21:01 Dose: 100 mls/hr Admin: 03/19/18 14:26 Dose: 100 mls/hr Norepinephrine Bitartrate 8 mg (/ Dextrose/Water) 250 mls @ 3.75 mls/hr IV TITRATE [facility]; Protocol Last Titration: 03/25/18 07:43 Dose: 11 mcg/min, 20.62 mls/hr Admin: 03/24/18 14:31 Dose: 13 mcg/min, 24.37 mls/hr Titration: 03/24/18 13:27 Dose: 23 mcg/min, 43.12 mls/hr Titration: 03/24/18 10:08 Dose: 23 mcg/min, 43.12 mls/hr Titration: 03/24/18 10:08 Dose: 13 mcg/min, 24.37 mls/hr Admin: 03/24/18 07:39 Dose: 23 mcg/min, 43.12 mls/hr Titration: 03/24/18 07:00 Dose: 23 mcg/min, 43.12 mls/hr Admin: 03/24/18 01:12 Dose: 23 mcg/min, 43.12 mls/hr Titration: 03/24/18 01:12 Dose: 23 mcg/min, 43.12 mls/hr Titration: 03/23/18 23:22 Dose: 23 mcg/min, 43.12 mls/hr Titration: 03/23/18 23:16 Dose: 22 mcg/min, 41.25 mls/hr Titration: 03/23/18 23:11 Dose: 21 mcg/min, 39.37 mls/hr Titration: 03/23/18 22:41 Dose: 19 mcg/min, 35.62 mls/hr Titration: 03/23/18 22:33 Dose: 18 mcg/min, 33.75 mls/hr Titration: 03/23/18 22:29 Dose: 17 mcg/min, 31.87 mls/hr Titration: 03/23/18 22:24 Dose: 16 mcg/min, 30 mls/hr Titration: 03/23/18 22:20 Dose: 15 mcg/min, 28.12 mls/hr Titration: 03/23/18 22:15 Dose: 14 mcg/min, 26.25 mls/hr Titration: 03/23/18 22:08 Dose: 13 mcg/min, 24.37 mls/hr Admin: 03/23/18 16:38 Dose: 12 mcg/min, 22.5 mls/hr Titration: 03/23/18 16:34 Dose: 11 mcg/min, 20.62 mls/hr Titration: 03/23/18 14:52 Dose: 11 mcg/min, 20.62 mls/hr Titration: 03/23/18 12:00 Dose: 10 mcg/min, 18.75 mls/hr Titration: 03/23/18 09:03 Dose: 9 mcg/min, 16.87 mls/hr Admin: 03/23/18 01:37 Dose: 8 mcg/min, 15 mls/hr Titration: 03/23/18 01:29 Dose: 8 mcg/min, 15 mls/hr Titration: 03/22/18 23:00 Dose: 8 mcg/min, 15 mls/hr Titration: 03/22/18 22:00 Dose: 9 mcg/min, 16.87 mls/hr Titration: 03/22/18 18:47 Dose: 10 mcg/min, 18.75 mls/hr Titration: 03/22/18 16:00 Dose: 11 mcg/min, 20.62 mls/hr Admin: 03/22/18 12:30 Dose: 12 mcg/min, 22.5 mls/hr Titration: 03/22/18 12:02 Dose: 12 mcg/min, 22.5 mls/hr Admin: 03/22/18 00:55 Dose: 12 mcg/min, 22.5 mls/hr Titration: 03/21/18 23:42 Dose: 12 mcg/min, 22.5 mls/hr Titration: 03/21/18 14:56 Dose: 12 mcg/min, 22.5 mls/hr Titration: 03/21/18 14:46 Dose: 11 mcg/min, 20.62 mls/hr Titration: 03/21/18 13:29 Dose: 10 mcg/min, 18.75 mls/hr Admin: 03/21/18 11:55 Dose: 9 mcg/min, 16.87 mls/hr Titration: 03/21/18 11:46 Dose: 10 mcg/min, 18.75 mls/hr Titration: 03/21/18 11:25 Dose: 11 mcg/min, 20.62 mls/hr Admin: 03/21/18 00:35 Dose: 12 mcg/min, 22.5 mls/hr Titration: 03/20/18 22:55 Dose: 12 mcg/min, 22.5 mls/hr Admin: 03/20/18 11:48 Dose: 12 mcg/min, 22.5 mls/hr Titration: 03/20/18 10:45 Dose: 12 mcg/min, 22.5 mls/hr Admin: 03/19/18 23:38 Dose: 12 mcg/min, 22.5 mls/hr Multivitamins/Minerals 10 ml/Chromium/Copper/Manganese/Seleni/Zn 1 ml/ Amino Ac/ Electrol/Dextrose/Calcium 1,011 mls @ 75 mls/hr IV .BY DURATION [facility] Last Admin: 03/24/18 17:10 Dose: 75 mls/hr Infusion: 03/24/18 03:37 Dose: 75 mls/hr Admin: 03/23/18 14:08 Dose: 75 mls/hr Amino Ac/Electrol/Dextrose/Calcium (Clinimix E 07/08) 1,000 mls @ 75 mls/hr IV .BY DURATION [facility] Last Admin: 03/25/18 08:11 Dose: 75 mls/hr Infusion: 03/24/18 17:19 Dose: 75 mls/hr Admin: 03/24/18 03:59 Dose: 75 mls/hr Vasopressin 100 units/ (Dextrose/Water) 255 mls @ 1.53 mls/hr IV TITRATE [facility]; Protocol Last Admin: 03/24/18 10:04 Dose: 0.01 units/min, 1.53 mls/hr Insulin Human Lispro (Humalog) 0 unit SUBCUT Q6H [facility]; Protocol Last Admin: 03/25/18 05:12 Dose: 2 unit Admin: 03/25/18 00:21 Dose: 2 unit Admin: 03/24/18 18:10 Dose: 1 unit Admin: 03/24/18 12:39 Dose: 1 unit Morphine Sulfate (Morphine) 4 mg IVPUSH Q2H PRN PRN Reason: Pain Non-Formulary Medication (Total Parenteral Nutrition, Central) 1,000 ml .XX .Continue Order [facility]; Protocol Nystatin (Mycostatin) 5 ml PO QID [facility] Last Admin: 03/25/18 10:17 Dose: 5 ml Admin: 03/25/18 05:02 Dose: 5 ml Admin: 03/24/18 21:25 Dose: 5 ml Admin: 03/24/18 17:07 Dose: 5 ml Admin: 03/24/18 09:13 Dose: 5 ml Admin: 03/24/18 05:06 Dose: 5 ml Admin: 03/23/18 22:44 Dose: 5 ml Admin: 03/23/18 17:37 Dose: 5 ml Admin: 03/23/18 09:09 Dose: 5 ml Admin: 03/23/18 06:21 Dose: 5 ml Admin: 03/22/18 21:42 Dose: 5 ml Admin: 03/22/18 16:43 Dose: 5 ml Admin: 03/22/18 10:06 Dose: 5 ml Admin: 03/22/18 05:43 Dose: 5 ml Admin: 03/21/18 22:20 Dose: 5 ml Admin: 03/21/18 16:31 Dose: 5 ml Admin: 03/21/18 10:06 Dose: 5 ml Pantoprazole Sodium (Protonix Iv) 40 mg IVPUSH DAILY [facility] Last Admin: 03/25/18 09:47 Dose: 40 mg Admin: 03/24/18 09:09 Dose: 40 mg Admin: 03/23/18 09:09 Dose: 40 mg Admin: 03/22/18 10:06 Dose: 40 mg Admin: 03/21/18 10:06 Dose: 40 mg Admin: 03/20/18 09:39 Dose: 40 mg Admin: 03/19/18 10:47 Dose: 40 mg - Assessment Assessment (Free Text/Narrative):: He remains in critical condition. Still ventilated although his Propofol is being stopped. His ostomy is very dark (not surprising as he was hypotensive despite pressors the night of his surgery). - Plan Plan (Free Text/Narrative):: Follow.
[2018-03-26] MEDS: Insulin Lispro 100 Unit/ML 3 ML KwikPen SUBCUT SCH ×4 (00:17→18:40)
[2018-03-26] MEDS: Norepinephrine 8 MG in Dextrose 5% in Water 242 ML IV SCH ×4 (01:30→16:17)
[2018-03-26] MEDS: Morphine 4 MG/ML Syringe IVPUSH PRN ×3 (04:04→23:25)
[2018-03-26] MEDS: Aztreonam/Dextrose-Water 1 GM in Premix Bag 1 BAG IV SCH ×3 (05:03→20:59)
[2018-03-26] MEDS: Nystatin Susp 100,000 Unit/ML 5 ML UD Cup PO SCH ×4 (05:03→21:00)
[2018-03-26] MEDS: Pantoprazole 40 MG Vial IVPUSH SCH (08:58)
[2018-03-26] MEDS: Hydrocortisone Sodium Succinate 100 MG/2 ML SDV IVPUSH SCH ×2 (08:58→20:59)
--- NOTE | 2018-03-26 09:06 | PCM.PN ---
- General Info Date of Service: 03/26/18 Subjective Update: There were no acute events overnight. The patient had an excellent day without sedation and was able to make it until 6 PM before he went back on sedation. Vital signs have been stable overnight. No recurrence of bradycardia. No fevers. He occasionally has been getting morphine when he endorses pain. Urine output was excellent yesterday with diuresis. Still requiring norepinephrine but dose has been slowly decreasing. Functional Status: Reports: Pain Controlled, Other (intubated and lightly sedated) - Review of Systems General: Denies: Fever - Patient Data Vitals - Most Recent: Last Vital Signs Temp 36.6 C 03/26/18 08:00 Pulse 72 03/26/18 08:00 Resp 12 03/26/18 08:00 BP 121/49 L 03/26/18 08:00 Pulse Ox 100 03/26/18 08:00 Weight - Most Recent: 69.4 kg I&O - Last 24 Hours: Intake & Output 03/25/18 03/26/18 03/26/18 22:59 06:59 14:59 Intake Total 1332 1319 Output Total 1750 1115 Balance -418 204 Lab Results Last 24 Hours: Laboratory Results - last 24 hr 03/26/18 03/26/18 03/26/18 Range/Units 05:00 05:00 05:00 WBC 21.1 H (4.5-11.0) K/uL RBC 3.49 L (4.30-5.90) M/uL Hgb 10.5 L (12.0-15.0) g/dL Hct 31.9 L (40.0-54.0) % MCV 91 (80-98) fL MCH 30 (27-31) pg MCHC 33 (32-36) % Plt Count 350 (150-400) K/uL Puncture Site A-line ABG pH 7.401 (7.350-7.450) ABG pCO2 37.0 (35.0-42.0) mmHg ABG pO2 72.3 L (75.0-100.0) mmHg ABG HCO3 22.5 (22.0-26.0) mmol/L ABG Total CO2 20.8 L (23.0-27.0) mmol/L ABG O2 Saturation 94.6 L (95.0-98.0) % ABG O2 Content 13.8 L (15.0-23.0) %vol ABG Base Excess -1.4 mm/L ABG Hemoglobin 10.5 L (13.5-18.0) g/dL ABG Oxyhemoglobin 93.0 % ABG Carboxyhemoglobin 1.0 (0.0-1.6) % ABG Methemoglobin 0.7 % Craig Test A-line O2 Delivery Device Ventilator Sodium 145 (140-148) mmol/L Potassium 4.1 (3.6-5.2) mmol/L Chloride 112 H (100-108) mmol/L Carbon Dioxide 26 (21-32) mmol/L Anion Gap 11.1 (5.0-14.0) mmol/L BUN 64 H (7-18) mg/dL Creatinine 1.3 (0.8-1.3) mg/dL Est Cr Clr Drug Dosing 45.79 mL/min Estimated GFR (MDRD) 54 L (>60) Glucose 172 H (74-106) mg/dL Calcium 7.8 L (8.5-10.1) mg/dL Magnesium 2.3 (1.8-2.4) mg/dL Med Orders - Current: Current Medications Acetaminophen (Tylenol) 650 mg RECTAL Q4H PRN PRN Reason: Fever Heparin Sodium (Porcine) (Heparin Lock Flush 100 Units/Ml) 500 units FLUSH ASDIRECTED PRN PRN Reason: IV Use Last Admin: 03/22/18 12:28 Dose: 500 units Hydrocortisone Sodium Succinate (Solu-Cortef) 100 mg IVPUSH Q12H [facility] Last Admin: 03/26/18 08:58 Dose: 100 mg Propofol (Diprivan 100 Ml) 100 mls @ 2.082 mls/hr IV TITRATE [facility]; Protocol Last Titration: 03/26/18 08:09 Dose: 0 mcg/kg/min, 0 mls/hr Meropenem 1 gm/ Sodium (Chloride) 50 mls @ 100 mls/hr IV Q12H [facility] Last Admin: 03/26/18 08:06 Dose: 100 mls/hr Aztreonam/Dextrose 1 gm/ (Premix) 50 mls @ 100 mls/hr IV Q8H [facility] Last Admin: 03/26/18 05:03 Dose: 100 mls/hr Norepinephrine Bitartrate 8 mg (/ Dextrose/Water) 250 mls @ 3.75 mls/hr IV TITRATE [facility]; Protocol Last Titration: 03/26/18 08:10 Dose: 8 mcg/min, 15 mls/hr Multivitamins/Minerals 10 ml/Chromium/Copper/Manganese/Seleni/Zn 1 ml/ Amino Ac/ Electrol/Dextrose/Calcium 1,011 mls @ 75 mls/hr IV .BY DURATION [facility] Last Admin: 03/25/18 22:34 Dose: 75 mls/hr Amino Ac/Electrol/Dextrose/Calcium (Clinimix E 5/15) 1,000 mls @ 75 mls/hr IV .BY DURATION [facility] Last Admin: 03/25/18 08:11 Dose: 75 mls/hr Insulin Human Lispro (Humalog) 0 unit SUBCUT Q6H [facility]; Protocol Last Admin: 03/26/18 05:01 Dose: 1 unit Morphine Sulfate (Morphine) 4 mg IVPUSH Q2H PRN PRN Reason: Pain Last Admin: 03/26/18 04:04 Dose: 4 mg Nystatin (Mycostatin) 5 ml PO QID [facility] Last Admin: 03/26/18 05:03 Dose: 5 ml Pantoprazole Sodium (Protonix Iv) 40 mg IVPUSH DAILY [facility] Last Admin: 03/26/18 08:58 Dose: 40 mg Discontinued Medications Dexamethasone (Dexamethasone) Confirm Administered Dose 4 mg .ROUTE .STK-MED ONE Stop: 03/18/18 19:48 Epinephrine HCl (Adrenalin) Confirm Administered Dose 1 mg .ROUTE .STK-MED ONE Stop: 03/18/18 21:07 Fentanyl (Sublimaze) Confirm Administered Dose 250 mcg .ROUTE .STK-MED ONE Stop: 03/18/18 19:48 Furosemide (Lasix) 20 mg IVPUSH ONETIME ONE Stop: 03/23/18 09:46 Last Admin: 03/23/18 10:18 Dose: 20 mg Furosemide (Lasix) 20 mg IVPUSH NOW ONE Stop: 03/25/18 10:01 Last Admin: 03/25/18 10:17 Dose: 20 mg Glycopyrrolate (Robinul) Confirm Administered Dose 1 mg .ROUTE .STK-MED ONE Stop: 03/18/18 19:48 Heparin Sodium (Porcine) (Heparin Sodium) Confirm Administered Dose 5,000 units .ROUTE .[facility] ONE Stop: 03/18/18 19:51 Heparin Sodium (Porcine) (Heparin Lock Flush 100 Units/Ml) Confirm Administered Dose 500 units .ROUTE .[facility] ONE Stop: 03/22/18 12:17 Last Admin: 03/22/18 12:30 Dose: Not Given Heparin Sodium (Porcine) (Heparin Sodium) Confirm Administered Dose 5,000 units .ROUTE .[facility] ONE Stop: 03/24/18 19:52 Last Admin: 03/24/18 20:33 Dose: 5,000 units Hydromorphone HCl (Dilaudid) 0.5 mg IVPUSH ONETIME ONE Stop: 03/18/18 17:43 Last Admin: 03/18/18 17:47 Dose: 0.5 mg Hydromorphone HCl (Dilaudid) 1 mg IVPUSH ONETIME ONE Stop: 03/18/18 18:18 Last Admin: 03/18/18 18:27 Dose: 1 mg Sodium Chloride (Normal Saline) 1,000 mls @ 1,000 mls/hr IV ASDIRECTED [facility] Last Admin: 03/18/18 17:47 Dose: 1,000 mls/hr Sodium Chloride (Normal Saline) 1,000 mls @ 999 mls/hr IV ASDIRECTED [facility] Last Admin: 03/18/18 19:31 Dose: 999 mls/hr Meropenem 500 mg/ Sodium (Chloride) 50 mls @ 100 mls/hr IV ONETIME ONE Stop: 03/18/18 19:09 Last Admin: 03/18/18 19:01 Dose: 100 mls/hr Sodium Chloride (Normal Saline) Confirm Administered Dose 50 mls @ as directed .ROUTE .[facility] ONE Stop: 03/18/18 19:40 Last Admin: 03/18/18 20:19 Dose: Not Given Aztreonam 2 gm/ Sodium (Chloride) 50 mls @ 100 mls/hr IV ONETIME ONE Stop: 03/18/18 20:01 Last Admin: 03/18/18 20:44 Dose: 100 mls/hr Meropenem 500 mg/ Sodium (Chloride) 50 mls @ 100 mls/hr IV ONETIME ONE Stop: 03/18/18 20:00 Last Admin: 03/18/18 19:40 Dose: 100 mls/hr Sodium Chloride (Normal Saline) Confirm Administered Dose 250 mls @ as directed .ROUTE .[facility]-MED ONE Stop: 03/18/18 19:59 Lactated Ringer's (Ringers, Lactated) Confirm Administered Dose 1,000 mls @ as directed .ROUTE .[facility] ONE Stop: 03/18/18 19:59 Sodium Chloride (Normal Saline) Confirm Administered Dose 500 mls @ as directed .ROUTE .[facility] ONE Stop: 03/18/18 19:59 Norepinephrine Bitartrate 8 mg (/ Dextrose/Water) 258 mls @ 3.87 mls/hr IV TITRATE [facility]; Protocol Last Admin: 03/19/18 11:45 Dose: 12 mcg/min, 23.22 mls/hr Lactated Ringer's (Ringers, Lactated) Confirm Administered Dose 1,000 mls @ as directed .ROUTE .[facility] ONE Stop: 03/18/18 21:42 Aztreonam 1 gm/ Sodium (Chloride) 50 mls @ 100 mls/hr IV Q8H [facility] Last Admin: 03/19/18 05:29 Dose: 100 mls/hr Potassium Chloride/Dextrose/Sod Cl (D5 1/2 Ns W/ 20 Meq/L Kcl) 1,000 mls @ 150 mls/hr IV ASDIRECTED [facility] Last Admin: 03/18/18 23:11 Dose: 150 mls/hr Lactated Ringer's (Ringers, Lactated) 1,000 mls @ 500 mls/hr IV ASDIRECTED [facility] Last Admin: 03/19/18 01:23 Dose: 500 mls/hr Vasopressin 100 units/ (Dextrose/Water) 255 mls @ 1.53 mls/hr IV TITRATE [facility]; Protocol Stop: 03/21/18 13:00 Last Titration: 03/21/18 11:03 Dose: 0.02 units/min, 3.06 mls/hr Lactated Ringer's (Ringers, Lactated) 1,000 mls @ 500 mls/hr IV BOLUS [facility] Stop: 03/19/18 05:29 Last Admin: 03/19/18 04:02 Dose: 500 mls/hr Lactated Ringer's (Ringers, Lactated) 1,000 mls @ 500 mls/hr IV .BOLUS ONE Stop: 03/19/18 14:59 Last Admin: 03/19/18 14:27 Dose: 500 mls/hr Lactated Ringer's (Ringers, Lactated) 1,000 mls @ 150 mls/hr IV ASDIRECTED [facility] Last Admin: 03/21/18 11:53 Dose: 150 mls/hr Magnesium Sulfate 2 gm/ Premix 50 mls @ 25 mls/hr IV Q6H [facility] Stop: 03/20/18 17:59 Last Admin: 03/20/18 16:30 Dose: 25 mls/hr Vancomycin HCl 1.25 gm/ Sodium (Chloride) 250 mls @ 170 mls/hr IV Q24H [facility] Last Admin: 03/22/18 10:06 Dose: 170 mls/hr Vasopressin 40 units/ Dextrose (/Water) 100 mls @ 3 mls/hr IV TITRATE [facility]; Protocol Last Titration: 03/23/18 01:00 Dose: 0 units/min, 0 mls/hr Potassium Chloride 20 meq/ (Premix) 100 mls @ 50 mls/hr IV Q2H [facility] Stop: 03/21/18 22:59 Last Admin: 03/21/18 22:20 Dose: 50 mls/hr Potassium Chloride 20 meq/ (Premix) 100 mls @ 50 mls/hr IV Q2H [facility] Stop: 03/22/18 12:59 Last Admin: 03/22/18 11:30 Dose: 50 mls/hr Potassium Chloride 20 meq/ (Premix) 100 mls @ 50 mls/hr IV Q2H [facility] Stop: 03/22/18 17:29 Last Admin: 03/22/18 16:13 Dose: 50 mls/hr Potassium Chloride (Kcl 20 Meq In Water 100 Ml) 100 mls @ 50 mls/hr IV Q2H [facility] Stop: 03/23/18 01:59 Last Admin: 03/23/18 00:53 Dose: 50 mls/hr Potassium Chloride 40 meq/ (Premix) 100 mls @ 25 mls/hr IV ONETIME ONE Stop: 03/23/18 14:29 Last Admin: 03/23/18 10:31 Dose: 25 mls/hr Vancomycin HCl 1.4 gm/ Sodium (Chloride) 250 mls @ 170 mls/hr IV Q24H [facility] Last Admin: 03/24/18 11:13 Dose: 170 mls/hr Vasopressin 100 units/ (Dextrose/Water) 255 mls @ 1.53 mls/hr IV TITRATE [facility]; Protocol Last Titration: 03/25/18 11:51 Dose: 0 units/min, 0 mls/hr Potassium Chloride 20 meq/ (Premix) 100 mls @ 50 mls/hr IV Q2H [facility] Stop: 03/24/18 13:59 Last Admin: 03/24/18 12:13 Dose: 50 mls/hr Meropenem (Merrem) Confirm Administered Dose 500 mg .ROUTE .STK-MED ONE Stop: 03/18/18 19:40 Last Admin: 03/18/18 20:19 Dose: Not Given Neostigmine Methylsulfate (Neostigmine) Confirm Administered Dose 5 mg .ROUTE .STK-MED ONE Stop: 03/18/18 19:48 Non-Formulary Medication (Total Parenteral Nutrition, Central) 1,000 ml .XX .Continue Order [facility]; Protocol Stop: 03/24/18 11:31 Non-Formulary Medication (Total Parenteral Nutrition, Central) 1,000 ml .XX .Continue Order [facility]; Protocol Ondansetron HCl (Zofran) 4 mg IVPUSH ONETIME ONE Stop: 03/18/18 18:18 Last Admin: 03/18/18 18:27 Dose: 4 mg Ondansetron HCl (Zofran) Confirm Administered Dose 4 mg .ROUTE .STK-MED ONE Stop: 03/18/18 19:48 Phenylephrine HCl (Isaías-Synephrine) Confirm Administered Dose 10 mg .ROUTE .STK- MED ONE Stop: 03/18/18 20:05 Propofol (Diprivan 20 Ml) Confirm Administered Dose 200 mg .ROUTE .STK-MED ONE Stop: 03/18/18 19:48 Rocuronium [place] (Zemuron) Confirm Administered Dose 50 mg .ROUTE .STK-MED ONE Stop: 03/18/18 19:48 Succinylcholine Chloride (Quelicin) Confirm Administered Dose 200 mg .ROUTE .STK -MED ONE Stop: 03/18/18 19:48 Vancomycin HCl (Vancomycin) 1 gm IV .PHARMACY TO DOSE [facility] Stop: 03/21/18 16:00 - Exam Quality Assessment: Supplemental Oxygen, Central Line/PICC, Urine Catheter, DVT Prophylaxis General: Alert, No Acute Distress, Sedated. No: Oriented, Cooperative HEENT: Pupils Equal Neck: Supple Lungs: Normal Respiratory Effort, Decreased Breath Sounds (left lung base), Crackles (left lung base) Cardiovascular: Regular Rate, Regular Rhythm, No Murmurs GI/Abdominal Exam: Normal Bowel Sounds, Soft, No Distention Extremities: No Pedal Edema, Other (pitting edema both arms and dependent edema both legs) Skin: Warm, Dry Wound/Incisions: Dressing Dry and Intact. No: Erythema Psy/Mental Status: Alert. No: Agitated - Problem List Review Problem List Initiated/Reviewed/Updated: Yes - My Orders Last 24 Hours: My Active Orders 03/25/18 09:39 Acetaminophen [Tylenol] 650 mg RECTAL Q4H PRN Morphine 4 mg IVPUSH Q2H PRN 03/25/18 10:10 Restraint Continue N-V/N-SD [OM.PC] Routine 03/26/18 05:00 Chest 1V Frontal [CR] DAILY 03/26/18 09:04 Furosemide [Lasix] 20 mg IVPUSH NOW ONE 03/27/18 05:00 Chest 1V Frontal [CR] DAILY BASIC METABOLIC PANEL,BMP [CHEM] Timed BLOOD GAS ARTERIAL [BG] Timed CBC W/O DIFF,HEMOGRAM [HEME] Timed (1) 03/28/18 05:00 Chest 1V Frontal [CR] DAILY - Plan Plan:: ASSESSMENT AND PLAN SIGMOID COLON PERFORATION RESULTING IN ACUTE ABDOMEN AND SEPTIC SHOCK - status post exploratory laparotomy with partial sigmoid colon resection and creation of a colostomy. Remains critically ill with septic shock and respiratory compromise. Vasopressor support slowly decreasing but persists. -meropenem and Azactam -Post operative surgical care per Dr. Adams -morphine as needed for pain SEPTIC SHOCK - secondary to intestinal perforation, solid and liquid stool noted throughout the abdominal cavity at the time of surgery. Decreasing vasopressor support. Doing well with diuresis. No fevers. -Antibiotic therapy as above -Continue norepinephrine and wean as able -continue hydrocortisone ACUTE HYPOXIC RESPIRATORY FAILURE - secondary to septic shock, colon perforation , recent surgery and underlying COPD. Ventilator support minimal at this time and respiratory status has been fairly stable. He has done well without sedation so far again today. No significant tachycardia, hypertension or agitation. Chest x-ray does show decreasing left pleural effusion. -Minimize sedation during the day and re-sedate overnight -Continue mechanical ventilation until he is more hemodynamically stable STEROID-INDUCED HYPERGLYCEMIA - patient has been receiving hydrocortisone for the past 24 hours and is on TPN. Mild to moderate blood sugar elevation. -Sliding-scale insulin -Start insulin in TPN COPD - [id number] smoking history but no evidence for exacerbation at this time. -Nebulized albuterol as needed -Vigorous pulmonary toilet during the postoperative period ACUTE KIDNEY INJURY - kidney function now back to baseline. Will need close monitoring during the diuresis. Still evidence for volume overload today with edema of the arms. -Twice daily diuresis as tolerated -Closely monitor urine output and renal function during the postoperative period HISTORY OF LUNG AND PROSTATE CARCINOMA - lung cancer felt to be stable, currently receiving active treatment for management of prostate carcinoma MAINTENANCE ISSUES -DVT prophylaxis; SCUDs -GI prophylaxis; Protonix 40 mg IV daily -Sorto catheter; patient remains critically ill and catheter remains necessary for strict intake and output monitoring -Nutrition; nothing by mouth, continuing TPN DISPOSITION - anticipate discharge to half-way if he survives the hospital stay Stephon Christy M.D.
[2018-03-26] MEDS ORDERED: Furosemide 20 MG/2 ML VIAL IVPUSH ONE ×2 (09:15→16:00)
--- NOTE | 2018-03-26 09:40 | CR ---
CHEST: Portable CLINICAL HISTORY:Follow-up effusion COMPARISON:03/25/2018 FINDINGS: Endotracheal tube is in the upper trachea.. There is an NG tube which is curled in the stomach. The tip ascends into the distal third of the esophagus. There is persistent left pleural effusion and left lower lung airspace disease. This may be increased slightly since prior study. There is chronic interstitial changes bilaterally. Impression: Persistent left pleural effusion with increase in left lower lobe airspace disease. This may be atelectasis or infiltrate NG tube is curled in the stomach. The NG tube tip is in the distal third of the esophagus and may need to be repositioned
[2018-03-26] MEDS: 1: AA 5%/Calcium/D15W/Lytes 1,000 ML with MVI, Adult with Vitamin K 10 ML, Chromium/Copp IV SCH ×3 (11:31)
--- NOTE | 2018-03-26 19:06 | PCM.SURGPN ---
- General Info Date of Service: 03/26/18 Date of Surgery/Procedure: 03/18/18 POD#: 8 Post-Op Diagnosis: Sigmoid colon perforation, Hinchey IV. Functional Status: Reports: Pain Controlled, Urinating (Sorto). Denies: Tolerating Diet, Ambulating - Patient Data Vitals - Most Recent: Last Vital Signs Temp 98.1 F 03/26/18 11:00 Pulse 86 03/26/18 18:00 Resp 18 03/26/18 18:00 BP 113/44 L 03/26/18 18:00 Pulse Ox 100 03/26/18 18:00 Weight - Most Recent: 153 lb 0.013 oz I&O - Last 24 Hours: Intake & Output 03/26/18 03/26/18 03/26/18 06:59 14:59 22:59 Intake Total 1319 1238 Output Total 1115 1270 270 Balance 204 -1270 968 Lab Results Last 24 Hrs: Laboratory Results - last 24 hr 03/26/18 03/26/18 03/26/18 Range/Units 05:00 05:00 05:00 WBC 21.1 H (4.5-11.0) K/uL RBC 3.49 L (4.30-5.90) M/uL Hgb 10.5 L (12.0-15.0) g/dL Hct 31.9 L (40.0-54.0) % MCV 91 (80-98) fL MCH 30 (27-31) pg MCHC 33 (32-36) % Plt Count 350 (150-400) K/uL Puncture Site A-line ABG pH 7.401 (7.350-7.450) ABG pCO2 37.0 (35.0-42.0) mmHg ABG pO2 72.3 L (75.0-100.0) mmHg ABG HCO3 22.5 (22.0-26.0) mmol/L ABG Total CO2 20.8 L (23.0-27.0) mmol/L ABG O2 Saturation 94.6 L (95.0-98.0) % ABG O2 Content 13.8 L (15.0-23.0) %vol ABG Base Excess -1.4 mm/L ABG Hemoglobin 10.5 L (13.5-18.0) g/dL ABG Oxyhemoglobin 93.0 % ABG Carboxyhemoglobin 1.0 (0.0-1.6) % ABG Methemoglobin 0.7 % Craig Test A-line O2 Delivery Device Ventilator Sodium 145 (140-148) mmol/L Potassium 4.1 (3.6-5.2) mmol/L Chloride 112 H (100-108) mmol/L Carbon Dioxide 26 (21-32) mmol/L Anion Gap 11.1 (5.0-14.0) mmol/L BUN 64 H (7-18) mg/dL Creatinine 1.3 (0.8-1.3) mg/dL Est Cr Clr Drug Dosing 45.79 mL/min Estimated GFR (MDRD) 54 L (>60) Glucose 172 H (74-106) mg/dL Calcium 7.8 L (8.5-10.1) mg/dL Magnesium 2.3 (1.8-2.4) mg/dL Med Orders - Current: Current Medications Acetaminophen (Tylenol) 650 mg RECTAL Q4H PRN PRN Reason: Fever Heparin Sodium (Porcine) (Heparin Lock Flush 100 Units/Ml) 500 units FLUSH ASDIRECTED PRN PRN Reason: IV Use Last Admin: 03/22/18 12:28 Dose: 500 units Hydrocortisone Sodium Succinate (Solu-Cortef) 100 mg IVPUSH Q12H [facility] Last Admin: 03/26/18 08:58 Dose: 100 mg Propofol (Diprivan 100 Ml) 100 mls @ 2.082 mls/hr IV TITRATE [facility]; Protocol Last Admin: 03/26/18 18:39 Dose: 10 mcg/kg/min, 4.164 mls/hr Meropenem 1 gm/ Sodium (Chloride) 50 mls @ 100 mls/hr IV Q12H [facility] Last Admin: 03/26/18 08:06 Dose: 100 mls/hr Aztreonam/Dextrose 1 gm/ (Premix) 50 mls @ 100 mls/hr IV Q8H [facility] Last Admin: 03/26/18 13:21 Dose: 100 mls/hr Norepinephrine Bitartrate 8 mg (/ Dextrose/Water) 250 mls @ 3.75 mls/hr IV TITRATE [facility]; Protocol Last Admin: 03/26/18 16:17 Dose: 8 mcg/min, 15 mls/hr Multivitamins/Minerals 10 ml/Chromium/Copper/Manganese/Seleni/Zn 1 ml/ Amino Ac/ Electrol/Dextrose/Calcium 1,011 mls @ 75 mls/hr IV .BY DURATION [facility] Amino Ac/Electrol/Dextrose/Calcium (Clinimix E 07/08) 1,000 mls @ 75 mls/hr IV .BY DURATION [facility] Last Admin: 03/26/18 11:31 Dose: 75 mls/hr Heparin Sodium (Porcine) 5,000 (units/ Sodium Chloride) 501 mls @ 5 mls/hr IV ASDIRECTED [facility] Insulin Human Lispro (Humalog) 0 unit SUBCUT Q6H [facility]; Protocol Last Admin: 03/26/18 18:40 Dose: 1 unit Morphine Sulfate (Morphine) 4 mg IVPUSH Q2H PRN PRN Reason: Pain Last Admin: 03/26/18 15:43 Dose: 4 mg Nystatin (Mycostatin) 5 ml PO QID [facility] Last Admin: 03/26/18 15:48 Dose: 5 ml Pantoprazole Sodium (Protonix Iv) 40 mg IVPUSH DAILY [facility] Last Admin: 03/26/18 08:58 Dose: 40 mg Discontinued Medications Dexamethasone (Dexamethasone) Confirm Administered Dose 4 mg .ROUTE .STK-MED ONE Stop: 03/18/18 19:48 Epinephrine HCl (Adrenalin) Confirm Administered Dose 1 mg .ROUTE .STK-MED ONE Stop: 03/18/18 21:07 Fentanyl (Sublimaze) Confirm Administered Dose 250 mcg .ROUTE .STK-MED ONE Stop: 03/18/18 19:48 Furosemide (Lasix) 20 mg IVPUSH ONETIME ONE Stop: 03/23/18 09:46 Last Admin: 03/23/18 10:18 Dose: 20 mg Furosemide (Lasix) 20 mg IVPUSH NOW ONE Stop: 03/25/18 10:01 Last Admin: 03/25/18 10:17 Dose: 20 mg Furosemide (Lasix) 20 mg IVPUSH ONETIME ONE Stop: 03/26/18 09:16 Last Admin: 03/26/18 09:10 Dose: 20 mg Furosemide (Lasix) 20 mg IVPUSH ONETIME ONE Stop: 03/26/18 16:01 Last Admin: 03/26/18 18:28 Dose: Not Given Glycopyrrolate (Robinul) Confirm Administered Dose 1 mg .ROUTE .STK-MED ONE Stop: 03/18/18 19:48 Heparin Sodium (Porcine) (Heparin Sodium) Confirm Administered Dose 5,000 units .ROUTE .STK-MED ONE Stop: 03/18/18 19:51 Heparin Sodium (Porcine) (Heparin Lock Flush 100 Units/Ml) Confirm Administered Dose 500 units .ROUTE .STK-MED ONE Stop: 03/22/18 12:17 Last Admin: 03/22/18 12:30 Dose: Not Given Heparin Sodium (Porcine) (Heparin Sodium) Confirm Administered Dose 5,000 units .ROUTE .STK-MED ONE Stop: 03/24/18 19:52 Last Admin: 03/24/18 20:33 Dose: 5,000 units Hydromorphone HCl (Dilaudid) 0.5 mg IVPUSH ONETIME ONE Stop: 03/18/18 17:43 Last Admin: 03/18/18 17:47 Dose: 0.5 mg Hydromorphone HCl (Dilaudid) 1 mg IVPUSH ONETIME ONE Stop: 03/18/18 18:18 Last Admin: 03/18/18 18:27 Dose: 1 mg Sodium Chloride (Normal Saline) 1,000 mls @ 1,000 mls/hr IV ASDIRECTED [facility] Last Admin: 03/18/18 17:47 Dose: 1,000 mls/hr Sodium Chloride (Normal Saline) 1,000 mls @ 999 mls/hr IV ASDIRECTED [facility] Last Admin: 03/18/18 19:31 Dose: 999 mls/hr Meropenem 500 mg/ Sodium (Chloride) 50 mls @ 100 mls/hr IV ONETIME ONE Stop: 03/18/18 19:09 Last Admin: 03/18/18 19:01 Dose: 100 mls/hr Sodium Chloride (Normal Saline) Confirm Administered Dose 50 mls @ as directed .ROUTE .STK-MED ONE Stop: 03/18/18 19:40 Last Admin: 03/18/18 20:19 Dose: Not Given Aztreonam 2 gm/ Sodium (Chloride) 50 mls @ 100 mls/hr IV ONETIME ONE Stop: 03/18/18 20:01 Last Admin: 03/18/18 20:44 Dose: 100 mls/hr Meropenem 500 mg/ Sodium (Chloride) 50 mls @ 100 mls/hr IV ONETIME ONE Stop: 03/18/18 20:00 Last Admin: 03/18/18 19:40 Dose: 100 mls/hr Sodium Chloride (Normal Saline) Confirm Administered Dose 250 mls @ as directed .ROUTE .[facility] ONE Stop: 03/18/18 19:59 Lactated Ringer's (Ringers, Lactated) Confirm Administered Dose 1,000 mls @ as directed .ROUTE .[facility] ONE Stop: 03/18/18 19:59 Sodium Chloride (Normal Saline) Confirm Administered Dose 500 mls @ as directed .ROUTE .[facility] ONE Stop: 03/18/18 19:59 Norepinephrine Bitartrate 8 mg (/ Dextrose/Water) 258 mls @ 3.87 mls/hr IV TITRATE [facility]; Protocol Last Admin: 03/19/18 11:45 Dose: 12 mcg/min, 23.22 mls/hr Lactated Ringer's (Ringers, Lactated) Confirm Administered Dose 1,000 mls @ as directed .ROUTE .[facility] ONE Stop: 03/18/18 21:42 Aztreonam 1 gm/ Sodium (Chloride) 50 mls @ 100 mls/hr IV Q8H [facility] Last Admin: 03/19/18 05:29 Dose: 100 mls/hr Potassium Chloride/Dextrose/Sod Cl (D5 1/2 Ns W/ 20 Meq/L Kcl) 1,000 mls @ 150 mls/hr IV ASDIRECTED [facility] Last Admin: 03/18/18 23:11 Dose: 150 mls/hr Lactated Ringer's (Ringers, Lactated) 1,000 mls @ 500 mls/hr IV ASDIRECTED [facility] Last Admin: 03/19/18 01:23 Dose: 500 mls/hr Vasopressin 100 units/ (Dextrose/Water) 255 mls @ 1.53 mls/hr IV TITRATE [facility]; Protocol Stop: 03/21/18 13:00 Last Titration: 03/21/18 11:03 Dose: 0.02 units/min, 3.06 mls/hr Lactated Ringer's (Ringers, Lactated) 1,000 mls @ 500 mls/hr IV BOLUS [facility] Stop: 03/19/18 05:29 Last Admin: 03/19/18 04:02 Dose: 500 mls/hr Lactated Ringer's (Ringers, Lactated) 1,000 mls @ 500 mls/hr IV .BOLUS ONE Stop: 03/19/18 14:59 Last Admin: 03/19/18 14:27 Dose: 500 mls/hr Lactated Ringer's (Ringers, Lactated) 1,000 mls @ 150 mls/hr IV ASDIRECTED [facility] Last Admin: 03/21/18 11:53 Dose: 150 mls/hr Magnesium Sulfate 2 gm/ Premix 50 mls @ 25 mls/hr IV Q6H [facility] Stop: 03/20/18 17:59 Last Admin: 03/20/18 16:30 Dose: 25 mls/hr Vancomycin HCl 1.25 gm/ Sodium (Chloride) 250 mls @ 170 mls/hr IV Q24H [facility] Last Admin: 03/22/18 10:06 Dose: 170 mls/hr Vasopressin 40 units/ Dextrose (/Water) 100 mls @ 3 mls/hr IV TITRATE [facility]; Protocol Last Titration: 03/23/18 01:00 Dose: 0 units/min, 0 mls/hr Potassium Chloride 20 meq/ (Premix) 100 mls @ 50 mls/hr IV Q2H [facility] Stop: 03/21/18 22:59 Last Admin: 03/21/18 22:20 Dose: 50 mls/hr Potassium Chloride 20 meq/ (Premix) 100 mls @ 50 mls/hr IV Q2H [facility] Stop: 03/22/18 12:59 Last Admin: 03/22/18 11:30 Dose: 50 mls/hr Potassium Chloride 20 meq/ (Premix) 100 mls @ 50 mls/hr IV Q2H [facility] Stop: 03/22/18 17:29 Last Admin: 03/22/18 16:13 Dose: 50 mls/hr Potassium Chloride (Kcl 20 Meq In Water 100 Ml) 100 mls @ 50 mls/hr IV Q2H [facility] Stop: 03/23/18 01:59 Last Admin: 03/23/18 00:53 Dose: 50 mls/hr Potassium Chloride 40 meq/ (Premix) 100 mls @ 25 mls/hr IV ONETIME ONE Stop: 03/23/18 14:29 Last Admin: 03/23/18 10:31 Dose: 25 mls/hr Vancomycin HCl 1.4 gm/ Sodium (Chloride) 250 mls @ 170 mls/hr IV Q24H [facility] Last Admin: 03/24/18 11:13 Dose: 170 mls/hr Multivitamins/Minerals 10 ml/Chromium/Copper/Manganese/Seleni/Zn 1 ml/ Amino Ac/ Electrol/Dextrose/Calcium 1,011 mls @ 75 mls/hr IV .BY DURATION [facility] Last Admin: 03/25/18 22:34 Dose: 75 mls/hr Amino Ac/Electrol/Dextrose/Calcium (Clinimix E 07/08) 1,000 mls @ 75 mls/hr IV .BY DURATION [facility] Last Admin: 03/25/18 08:11 Dose: 75 mls/hr Vasopressin 100 units/ (Dextrose/Water) 255 mls @ 1.53 mls/hr IV TITRATE [facility]; Protocol Last Titration: 03/25/18 11:51 Dose: 0 units/min, 0 mls/hr Potassium Chloride 20 meq/ (Premix) 100 mls @ 50 mls/hr IV Q2H [facility] Stop: 03/24/18 13:59 Last Admin: 03/24/18 12:13 Dose: 50 mls/hr Meropenem (Merrem) Confirm Administered Dose 500 mg .ROUTE .STK-MED ONE Stop: 03/18/18 19:40 Last Admin: 03/18/18 20:19 Dose: Not Given Neostigmine Methylsulfate (Neostigmine) Confirm Administered Dose 5 mg .ROUTE .STK-MED ONE Stop: 03/18/18 19:48 Non-Formulary Medication (Total Parenteral Nutrition, Central) 1,000 ml .XX .Continue Order [facility]; Protocol Stop: 03/24/18 11:31 Non-Formulary Medication (Total Parenteral Nutrition, Central) 1,000 ml .XX .Continue Order [facility]; Protocol Ondansetron HCl (Zofran) 4 mg IVPUSH ONETIME ONE Stop: 03/18/18 18:18 Last Admin: 03/18/18 18:27 Dose: 4 mg Ondansetron HCl (Zofran) Confirm Administered Dose 4 mg .ROUTE .STK-MED ONE Stop: 03/18/18 19:48 Phenylephrine HCl (Isaías-Synephrine) Confirm Administered Dose 10 mg .ROUTE .STK- MED ONE Stop: 03/18/18 20:05 Propofol (Diprivan 20 Ml) Confirm Administered Dose 200 mg .ROUTE .STK-MED ONE Stop: 03/18/18 19:48 Rocuronium [place] (Zemuron) Confirm Administered Dose 50 mg .ROUTE .STK-MED ONE Stop: 03/18/18 19:48 Succinylcholine Chloride (Quelicin) Confirm Administered Dose 200 mg .ROUTE .STK -MED ONE Stop: 03/18/18 19:48 Vancomycin HCl (Vancomycin) 1 gm IV .PHARMACY TO DOSE [facility] Stop: 03/21/18 16:00 - Exam Wound/Incisions: Healing Well Quality Assessment: Supplemental Oxygen (Ventilated. ), Central Line/PICC, Urine Catheter, DVT Prophylaxis, Restraints General: Alert Lungs: Clear to Auscultation, Normal Respiratory Effort Cardiovascular: Regular Rate, Regular Rhythm GI/Abdominal Exam: Normal Bowel Sounds, Soft, Non-Tender, No Distention, Other ( Ostomy functioning. It is dark. ) Extremities: Normal Inspection (Scrotal edema. ) Skin: Warm, Dry Psy/Mental Status: Alert (Propofol stopped during the day. Will be restarted so he can rest tonight on the ventilator. ) - Problem List & Annotations (1) Perforation of sigmoid colon SNOMED Code(s): 147729150 Code(s): K63.1 - PERFORATION OF INTESTINE (NONTRAUMATIC) Status: Acute Current Visit: Yes - Problem List Review Problem List Initiated/Reviewed/Updated: Yes - My Orders Last 24 Hours: Active Orders 24 hr Category Date Time Status Chest 1V Frontal [CR] DAILY Exams 03/27/18 05:00 Ordered Chest 1V Frontal [CR] DAILY Exams 03/28/18 05:00 Ordered BASIC METABOLIC PANEL,BMP [CHEM] Timed Lab 03/27/18 05:00 Ordered BLOOD GAS ARTERIAL [BG] Timed Lab 03/27/18 05:00 Ordered CBC W/O DIFF,HEMOGRAM [HEME] Timed (1) Lab 03/27/18 05:00 Ordered ALT Order Med 03/26/18 11:30 Active Heparin Sodium 5,000 units Med 03/27/18 09:00 Active Sodium Chloride 0.9% [Normal Saline] 500 ml IV ASDIRECTED Medication Orders Acetaminophen (Tylenol) 650 mg RECTAL Q4H PRN PRN Reason: Fever Heparin Sodium (Porcine) (Heparin Lock Flush 100 Units/Ml) 500 units FLUSH ASDIRECTED PRN PRN Reason: IV Use Last Admin: 03/22/18 12:28 Dose: 500 units Hydrocortisone Sodium Succinate (Solu-Cortef) 100 mg IVPUSH Q12H [facility] Last Admin: 03/26/18 08:58 Dose: 100 mg Admin: 03/25/18 20:56 Dose: 100 mg Admin: 03/25/18 09:47 Dose: 100 mg Admin: 03/24/18 21:24 Dose: 100 mg Admin: 03/24/18 09:51 Dose: 100 mg Propofol (Diprivan 100 Ml) 100 mls @ 2.082 mls/hr IV TITRATE [facility]; Protocol Last Admin: 03/26/18 18:39 Dose: 10 mcg/kg/min, 4.164 mls/hr Titration: 03/26/18 18:39 Dose: 0 mcg/kg/min, 0 mls/hr Titration: 03/26/18 08:09 Dose: 0 mcg/kg/min, 0 mls/hr Admin: 03/26/18 00:40 Dose: 20 mcg/kg/min, 8.328 mls/hr Titration: 03/26/18 00:40 Dose: 20 mcg/kg/min, 8.328 mls/hr Titration: 03/25/18 17:51 Dose: 20 mcg/kg/min, 8.328 mls/hr Titration: 03/25/18 09:39 Dose: 0 mcg/kg/min, 0 mls/hr Admin: 03/25/18 07:31 Dose: 36 mcg/kg/min, 14.99 mls/hr Titration: 03/25/18 07:02 Dose: 36 mcg/kg/min, 14.99 mls/hr Titration: 03/25/18 04:13 Dose: 36 mcg/kg/min, 14.99 mls/hr Titration: 03/25/18 03:40 Dose: 41 mcg/kg/min, 17.072 mls/hr Admin: 03/25/18 00:23 Dose: 36 mcg/kg/min, 14.99 mls/hr Titration: 03/25/18 00:23 Dose: 36 mcg/kg/min, 14.99 mls/hr Titration: 03/24/18 20:47 Dose: 36 mcg/kg/min, 14.99 mls/hr Admin: 03/24/18 17:38 Dose: 33 mcg/kg/min, 13.741 mls/hr Titration: 03/24/18 17:38 Dose: 33 mcg/kg/min, 13.741 mls/hr Titration: 03/24/18 16:55 Dose: 33 mcg/kg/min, 13.741 mls/hr Admin: 03/24/18 10:35 Dose: 30 mcg/kg/min, 12.492 mls/hr Titration: 03/24/18 10:26 Dose: 30 mcg/kg/min, 12.492 mls/hr Admin: 03/24/18 02:25 Dose: 30 mcg/kg/min, 12.492 mls/hr Titration: 03/24/18 02:25 Dose: 30 mcg/kg/min, 12.492 mls/hr Admin: 03/23/18 19:30 Dose: 30 mcg/kg/min, 12.492 mls/hr Titration: 03/23/18 18:26 Dose: 30 mcg/kg/min, 12.492 mls/hr Admin: 03/23/18 10:25 Dose: 30 mcg/kg/min, 12.492 mls/hr Titration: 03/23/18 10:25 Dose: 30 mcg/kg/min, 12.492 mls/hr Admin: 03/23/18 04:37 Dose: 30 mcg/kg/min, 12.492 mls/hr Titration: 03/23/18 04:37 Dose: 30 mcg/kg/min, 12.492 mls/hr Admin: 03/22/18 21:42 Dose: 30 mcg/kg/min, 12.492 mls/hr Titration: 03/22/18 14:59 Dose: 30 mcg/kg/min, 12.492 mls/hr Admin: 03/22/18 06:58 Dose: 30 mcg/kg/min, 12.492 mls/hr Titration: 03/22/18 06:58 Dose: 30 mcg/kg/min, 12.492 mls/hr Admin: 03/22/18 00:19 Dose: 30 mcg/kg/min, 12.492 mls/hr Titration: 03/21/18 23:46 Dose: 30 mcg/kg/min, 12.492 mls/hr Titration: 03/21/18 22:00 Dose: 30 mcg/kg/min, 12.492 mls/hr Titration: 03/21/18 21:45 Dose: 25 mcg/kg/min, 10.41 mls/hr Admin: 03/21/18 13:55 Dose: 23 mcg/kg/min, 9.577 mls/hr Titration: 03/21/18 13:55 Dose: 23 mcg/kg/min, 9.577 mls/hr Admin: 03/21/18 04:59 Dose: 23 mcg/kg/min, 9.577 mls/hr Titration: 03/21/18 04:59 Dose: 23 mcg/kg/min, 9.577 mls/hr Admin: 03/20/18 19:28 Dose: 23 mcg/kg/min, 9.577 mls/hr Titration: 03/20/18 19:28 Dose: 23 mcg/kg/min, 9.577 mls/hr Titration: 03/20/18 11:48 Dose: 23 mcg/kg/min, 9.577 mls/hr Admin: 03/20/18 09:35 Dose: 20 mcg/kg/min, 8.328 mls/hr Titration: 03/20/18 09:35 Dose: 20 mcg/kg/min, 8.328 mls/hr Admin: 03/19/18 22:55 Dose: 20 mcg/kg/min, 8.328 mls/hr Titration: 03/19/18 20:57 Dose: 20 mcg/kg/min, 8.328 mls/hr Admin: 03/19/18 08:56 Dose: 20 mcg/kg/min, 8.328 mls/hr Titration: 03/19/18 08:56 Dose: 25 mcg/kg/min, 10.41 mls/hr Titration: 03/19/18 06:13 Dose: 25 mcg/kg/min, 10.41 mls/hr Titration: 03/19/18 00:26 Dose: 20 mcg/kg/min, 8.328 mls/hr Titration: 03/18/18 23:29 Dose: 10 mcg/kg/min, 4.164 mls/hr Titration: 03/18/18 23:18 Dose: 15 mcg/kg/min, 6.246 mls/hr Admin: 03/18/18 22:49 Dose: 5 mcg/kg/min, 2.082 mls/hr Meropenem 1 gm/ Sodium (Chloride) 50 mls @ 100 mls/hr IV Q12H [facility] Last Admin: 03/26/18 08:06 Dose: 100 mls/hr Admin: 03/25/18 20:01 Dose: 100 mls/hr Admin: 03/25/18 08:10 Dose: 100 mls/hr Admin: 03/24/18 19:48 Dose: 100 mls/hr Admin: 03/24/18 07:37 Dose: 100 mls/hr Admin: 03/23/18 20:02 Dose: 100 mls/hr Admin: 03/23/18 07:50 Dose: 100 mls/hr Admin: 03/22/18 19:59 Dose: 100 mls/hr Admin: 03/22/18 08:09 Dose: 100 mls/hr Admin: 03/21/18 20:34 Dose: 100 mls/hr Admin: 03/21/18 09:04 Dose: 100 mls/hr Admin: 03/20/18 20:49 Dose: 100 mls/hr Admin: 03/20/18 08:04 Dose: 100 mls/hr Admin: 03/19/18 20:25 Dose: 100 mls/hr Admin: 03/19/18 08:12 Dose: 100 mls/hr Aztreonam/Dextrose 1 gm/ (Premix) 50 mls @ 100 mls/hr IV Q8H [facility] Last Admin: 03/26/18 13:21 Dose: 100 mls/hr Admin: 03/26/18 05:03 Dose: 100 mls/hr Admin: 03/25/18 20:56 Dose: 100 mls/hr Admin: 03/25/18 12:32 Dose: 100 mls/hr Admin: 03/25/18 05:02 Dose: 100 mls/hr Admin: 03/24/18 20:37 Dose: 100 mls/hr Admin: 03/24/18 12:45 Dose: 100 mls/hr Admin: 03/24/18 04:00 Dose: 100 mls/hr Admin: 03/23/18 20:55 Dose: 100 mls/hr Admin: 03/23/18 14:04 Dose: 100 mls/hr Admin: 03/23/18 04:37 Dose: 100 mls/hr Admin: 03/22/18 21:41 Dose: 100 mls/hr Admin: 03/22/18 14:00 Dose: 100 mls/hr Admin: 03/22/18 04:24 Dose: 100 mls/hr Admin: 03/21/18 20:38 Dose: 100 mls/hr Admin: 03/21/18 12:26 Dose: 100 mls/hr Admin: 03/21/18 04:59 Dose: 100 mls/hr Admin: 03/20/18 21:31 Dose: 100 mls/hr Admin: 03/20/18 13:28 Dose: 100 mls/hr Admin: 03/20/18 05:34 Dose: 100 mls/hr Admin: 03/19/18 21:01 Dose: 100 mls/hr Admin: 03/19/18 14:26 Dose: 100 mls/hr Norepinephrine Bitartrate 8 mg (/ Dextrose/Water) 250 mls @ 3.75 mls/hr IV TITRATE [facility]; Protocol Last Admin: 03/26/18 16:17 Dose: 8 mcg/min, 15 mls/hr Titration: 03/26/18 16:17 Dose: 8 mcg/min, 15 mls/hr Titration: 03/26/18 08:10 Dose: 8 mcg/min, 15 mls/hr Admin: 03/26/18 01:30 Dose: 10 mcg/min, 18.75 mls/hr Titration: 03/25/18 07:43 Dose: 11 mcg/min, 20.62 mls/hr Admin: 03/24/18 14:31 Dose: 13 mcg/min, 24.37 mls/hr Titration: 03/24/18 13:27 Dose: 23 mcg/min, 43.12 mls/hr Titration: 03/24/18 10:08 Dose: 23 mcg/min, 43.12 mls/hr Titration: 03/24/18 10:08 Dose: 13 mcg/min, 24.37 mls/hr Admin: 03/24/18 07:39 Dose: 23 mcg/min, 43.12 mls/hr Titration: 03/24/18 07:00 Dose: 23 mcg/min, 43.12 mls/hr Admin: 03/24/18 01:12 Dose: 23 mcg/min, 43.12 mls/hr Titration: 03/24/18 01:12 Dose: 23 mcg/min, 43.12 mls/hr Titration: 03/23/18 23:22 Dose: 23 mcg/min, 43.12 mls/hr Titration: 03/23/18 23:16 Dose: 22 mcg/min, 41.25 mls/hr Titration: 03/23/18 23:11 Dose: 21 mcg/min, 39.37 mls/hr Titration: 03/23/18 22:41 Dose: 19 mcg/min, 35.62 mls/hr Titration: 03/23/18 22:33 Dose: 18 mcg/min, 33.75 mls/hr Titration: 03/23/18 22:29 Dose: 17 mcg/min, 31.87 mls/hr Titration: 03/23/18 22:24 Dose: 16 mcg/min, 30 mls/hr Titration: 03/23/18 22:20 Dose: 15 mcg/min, 28.12 mls/hr Titration: 03/23/18 22:15 Dose: 14 mcg/min, 26.25 mls/hr Titration: 03/23/18 22:08 Dose: 13 mcg/min, 24.37 mls/hr Admin: 03/23/18 16:38 Dose: 12 mcg/min, 22.5 mls/hr Titration: 03/23/18 16:34 Dose: 11 mcg/min, 20.62 mls/hr Titration: 03/23/18 14:52 Dose: 11 mcg/min, 20.62 mls/hr Titration: 03/23/18 12:00 Dose: 10 mcg/min, 18.75 mls/hr Titration: 03/23/18 09:03 Dose: 9 mcg/min, 16.87 mls/hr Admin: 03/23/18 01:37 Dose: 8 mcg/min, 15 mls/hr Titration: 03/23/18 01:29 Dose: 8 mcg/min, 15 mls/hr Titration: 03/22/18 23:00 Dose: 8 mcg/min, 15 mls/hr Titration: 03/22/18 22:00 Dose: 9 mcg/min, 16.87 mls/hr Titration: 03/22/18 18:47 Dose: 10 mcg/min, 18.75 mls/hr Titration: 03/22/18 16:00 Dose: 11 mcg/min, 20.62 mls/hr Admin: 03/22/18 12:30 Dose: 12 mcg/min, 22.5 mls/hr Titration: 03/22/18 12:02 Dose: 12 mcg/min, 22.5 mls/hr Admin: 03/22/18 00:55 Dose: 12 mcg/min, 22.5 mls/hr Titration: 03/21/18 23:42 Dose: 12 mcg/min, 22.5 mls/hr Titration: 03/21/18 14:56 Dose: 12 mcg/min, 22.5 mls/hr Titration: 03/21/18 14:46 Dose: 11 mcg/min, 20.62 mls/hr Titration: 03/21/18 13:29 Dose: 10 mcg/min, 18.75 mls/hr Admin: 03/21/18 11:55 Dose: 9 mcg/min, 16.87 mls/hr Titration: 03/21/18 11:46 Dose: 10 mcg/min, 18.75 mls/hr Titration: 03/21/18 11:25 Dose: 11 mcg/min, 20.62 mls/hr Admin: 03/21/18 00:35 Dose: 12 mcg/min, 22.5 mls/hr Titration: 03/20/18 22:55 Dose: 12 mcg/min, 22.5 mls/hr Admin: 03/20/18 11:48 Dose: 12 mcg/min, 22.5 mls/hr Titration: 03/20/18 10:45 Dose: 12 mcg/min, 22.5 mls/hr Admin: 03/19/18 23:38 Dose: 12 mcg/min, 22.5 mls/hr Multivitamins/Minerals 10 ml/Chromium/Copper/Manganese/Seleni/Zn 1 ml/ Amino Ac/ Electrol/Dextrose/Calcium 1,011 mls @ 75 mls/hr IV .BY DURATION [facility] Amino Ac/Electrol/Dextrose/Calcium (Clinimix E 5/15) 1,000 mls @ 75 mls/hr IV .BY DURATION [facility] Last Admin: 03/26/18 11:31 Dose: 75 mls/hr Heparin Sodium (Porcine) 5,000 (units/ Sodium Chloride) 501 mls @ 5 mls/hr IV ASDIRECTED [facility] Insulin Human Lispro (Humalog) 0 unit SUBCUT Q6H [facility]; Protocol Last Admin: 03/26/18 18:40 Dose: 1 unit Admin: 03/26/18 13:01 Dose: Not Given Admin: 03/26/18 05:01 Dose: 1 unit Admin: 03/26/18 00:17 Dose: Not Given Admin: 03/25/18 18:13 Dose: 1 unit Admin: 03/25/18 11:58 Dose: 1 unit Admin: 03/25/18 05:12 Dose: 2 unit Admin: 03/25/18 00:21 Dose: 2 unit Admin: 03/24/18 18:10 Dose: 1 unit Admin: 03/24/18 12:39 Dose: 1 unit Morphine Sulfate (Morphine) 4 mg IVPUSH Q2H PRN PRN Reason: Pain Last Admin: 03/26/18 15:43 Dose: 4 mg Admin: 03/26/18 04:04 Dose: 4 mg Admin: 03/25/18 20:37 Dose: 4 mg Admin: 03/25/18 14:48 Dose: 4 mg Admin: 03/25/18 10:51 Dose: 4 mg Nystatin (Mycostatin) 5 ml PO QID [facility] Last Admin: 03/26/18 15:48 Dose: 5 ml Admin: 03/26/18 11:31 Dose: 5 ml Admin: 03/26/18 05:03 Dose: 5 ml Admin: 03/25/18 21:05 Dose: 5 ml Admin: 03/25/18 17:00 Dose: 5 ml Admin: 03/25/18 10:17 Dose: 5 ml Admin: 03/25/18 05:02 Dose: 5 ml Admin: 03/24/18 21:25 Dose: 5 ml Admin: 03/24/18 17:07 Dose: 5 ml Admin: 03/24/18 09:13 Dose: 5 ml Admin: 03/24/18 05:06 Dose: 5 ml Admin: 03/23/18 22:44 Dose: 5 ml Admin: 03/23/18 17:37 Dose: 5 ml Admin: 03/23/18 09:09 Dose: 5 ml Admin: 03/23/18 06:21 Dose: 5 ml Admin: 03/22/18 21:42 Dose: 5 ml Admin: 03/22/18 16:43 Dose: 5 ml Admin: 03/22/18 10:06 Dose: 5 ml Admin: 03/22/18 05:43 Dose: 5 ml Admin: 03/21/18 22:20 Dose: 5 ml Admin: 03/21/18 16:31 Dose: 5 ml Admin: 03/21/18 10:06 Dose: 5 ml Pantoprazole Sodium (Protonix Iv) 40 mg IVPUSH DAILY [facility] Last Admin: 03/26/18 08:58 Dose: 40 mg Admin: 03/25/18 09:47 Dose: 40 mg Admin: 03/24/18 09:09 Dose: 40 mg Admin: 03/23/18 09:09 Dose: 40 mg Admin: 03/22/18 10:06 Dose: 40 mg Admin: 03/21/18 10:06 Dose: 40 mg Admin: 03/20/18 09:39 Dose: 40 mg Admin: 03/19/18 10:47 Dose: 40 mg - Assessment Assessment (Free Text/Narrative):: Pressors decreasing. Easy to ventilate. Slow improvement. WBC about 20K. No fever. - Plan Plan (Free Text/Narrative):: Follow.
[2018-03-27] MEDS: Insulin Lispro 100 Unit/ML 3 ML KwikPen SUBCUT SCH ×4 (00:13→18:30)
[2018-03-27] MEDS: 1: AA 5%/Calcium/D15W/Lytes 1,000 ML with MVI, Adult with Vitamin K 10 ML, Chromium/Copp IV SCH ×6 (00:44→14:37)
[2018-03-27] MEDS: Morphine 4 MG/ML Syringe IVPUSH PRN ×2 (02:55→20:49)
[2018-03-27] MEDS: Aztreonam/Dextrose-Water 1 GM in Premix Bag 1 BAG IV SCH ×3 (05:52→20:50)
[2018-03-27] MEDS: Nystatin Susp 100,000 Unit/ML 5 ML UD Cup PO SCH ×4 (06:02→22:01)
[2018-03-27] MEDS: Hydrocortisone Sodium Succinate 100 MG/2 ML SDV IVPUSH SCH ×2 (08:46→20:50)
[2018-03-27] MEDS: Pantoprazole 40 MG Vial IVPUSH SCH (08:50)
[2018-03-27] MEDS ORDERED: Heparin Sodium 5,000 UNITS in Sodium Chloride 0.9% 500 ML IV SCH (09:00)
--- NOTE | 2018-03-27 09:01 | CR ---
CHEST: Portable CLINICAL HISTORY:Follow-up effusion COMPARISON:03/26/2018 FINDINGS: The endotracheal tube is in the upper trachea. There is an NG tube curled in the stomach. The tip ascends to the distal third of the esophagus. PICC line is in place. There is persistent essentially stable left lower lobe airspace disease and left pleural effusion. Impression: Tubes and catheters unchanged in position Left lower lobe airspace disease and left effusion unchanged Diffuse interstitial prominence is chronic
[2018-03-27] MEDS ORDERED: Central Total Parenteral Nutrition Bag SCH (09:30)
--- NOTE | 2018-03-27 09:30 | PCM.PN ---
- General Info Date of Service: 03/27/18 Subjective Update: There were no acute events overnight. The patient remains intubated but is not sedated at this time. He does not endorse abdominal pain or chest pain at this time. He was recently transitioned to SIMV and seems to be tolerating this well. He did not have fevers overnight. Good response to diuresis yesterday morning but he cause of lower blood pressures we were unable to diuresis in the afternoon. Norepinephrine has been decreased to 4 g. Ventilator status has remained stable overnight. Functional Status: Reports: Pain Controlled, Other (intubated, not sedated) - Review of Systems General: Denies: Fever Cardiovascular: Denies: Chest Pain Gastrointestinal: Denies: Abdominal Pain - Patient Data Vitals - Most Recent: Last Vital Signs Temp 36.4 C 03/27/18 07:00 Pulse 80 03/27/18 07:00 Resp 14 03/27/18 09:00 BP 111/44 L 03/27/18 09:00 Pulse Ox 100 03/27/18 09:00 Weight - Most Recent: 69.4 kg I&O - Last 24 Hours: Intake & Output 03/26/18 03/27/18 03/27/18 22:59 06:59 14:59 Intake Total 1238 1281 Output Total 270 855 Balance 968 426 Lab Results Last 24 Hours: Laboratory Results - last 24 hr 03/27/18 03/27/18 03/27/18 Range/Units 05:00 05:00 05:00 WBC 19.0 H (4.5-11.0) K/uL RBC 3.34 L (4.30-5.90) M/uL Hgb 9.8 L (12.0-15.0) g/dL Hct 31.0 L (40.0-54.0) % MCV 93 (80-98) fL MCH 29 (27-31) pg MCHC 32 (32-36) % Plt Count 448 H (150-400) K/uL Puncture Site A-line ABG pH 7.382 (7.350-7.450) ABG pCO2 41.6 (35.0-42.0) mmHg ABG pO2 81.7 (75.0-100.0) mmHg ABG HCO3 24.2 (22.0-26.0) mmol/L ABG Total CO2 22.2 L (23.0-27.0) mmol/L ABG O2 Saturation 95.6 (95.0-98.0) % ABG O2 Content 14.8 L (15.0-23.0) %vol ABG Base Excess -0.3 mm/L ABG Hemoglobin 11.1 L (13.5-18.0) g/dL ABG Oxyhemoglobin 94.5 % ABG Carboxyhemoglobin 0.6 (0.0-1.6) % ABG Methemoglobin 0.6 % Craig Test Passed O2 Delivery Device Ventilator Sodium 148 (140-148) mmol/L Potassium 3.9 (3.6-5.2) mmol/L Chloride 115 H (100-108) mmol/L Carbon Dioxide 25 (21-32) mmol/L Anion Gap 11.9 (5.0-14.0) mmol/L BUN 65 H (7-18) mg/dL Creatinine 1.2 (0.8-1.3) mg/dL Est Cr Clr Drug Dosing 49.61 mL/min Estimated GFR (MDRD) 59 L (>60) Glucose 164 H (74-106) mg/dL Calcium 7.8 L (8.5-10.1) mg/dL Med Orders - Current: Current Medications Acetaminophen (Tylenol) 650 mg RECTAL Q4H PRN PRN Reason: Fever Heparin Sodium (Porcine) (Heparin Lock Flush 100 Units/Ml) 500 units FLUSH ASDIRECTED PRN PRN Reason: IV Use Last Admin: 03/22/18 12:28 Dose: 500 units Hydrocortisone Sodium Succinate (Solu-Cortef) 100 mg IVPUSH Q12H [facility] Last Admin: 03/27/18 08:46 Dose: 100 mg Propofol (Diprivan 100 Ml) 100 mls @ 2.082 mls/hr IV TITRATE [facility]; Protocol Last Titration: 03/27/18 06:35 Dose: 10 mcg/kg/min, 4.164 mls/hr Meropenem 1 gm/ Sodium (Chloride) 50 mls @ 100 mls/hr IV Q12H [facility] Last Admin: 03/27/18 07:47 Dose: 100 mls/hr Aztreonam/Dextrose 1 gm/ (Premix) 50 mls @ 100 mls/hr IV Q8H [facility] Last Admin: 03/27/18 05:52 Dose: 100 mls/hr Norepinephrine Bitartrate 8 mg (/ Dextrose/Water) 250 mls @ 3.75 mls/hr IV TITRATE [facility]; Protocol Last Titration: 03/27/18 09:04 Dose: 4 mcg/min, 7.5 mls/hr Multivitamins/Minerals 10 ml/Chromium/Copper/Manganese/Seleni/Zn 1 ml/ Amino Ac/ Electrol/Dextrose/Calcium 1,011 mls @ 75 mls/hr IV .BY DURATION [facility] Last Admin: 03/27/18 00:44 Dose: 75 mls/hr Amino Ac/Electrol/Dextrose/Calcium (Clinimix E 15) 1,000 mls @ 75 mls/hr IV .BY DURATION [facility] Last Admin: 03/26/18 11:31 Dose: 75 mls/hr Heparin Sodium (Porcine) 5,000 (units/ Sodium Chloride) 501 mls @ 5 mls/hr IV ASDIRECTED [facility] Insulin Human Lispro (Humalog) 0 unit SUBCUT Q6H [facility]; Protocol Last Admin: 03/27/18 06:03 Dose: Not Given Morphine Sulfate (Morphine) 4 mg IVPUSH Q2H PRN PRN Reason: Pain Last Admin: 03/27/18 02:55 Dose: 4 mg Nystatin (Mycostatin) 5 ml PO QID [facility] Last Admin: 03/27/18 06:02 Dose: 5 ml Pantoprazole Sodium (Protonix Iv) 40 mg IVPUSH DAILY [facility] Last Admin: 03/27/18 08:50 Dose: 40 mg Discontinued Medications Dexamethasone (Dexamethasone) Confirm Administered Dose 4 mg .ROUTE .STK-MED ONE Stop: 03/18/18 19:48 Epinephrine HCl (Adrenalin) Confirm Administered Dose 1 mg .ROUTE .STK-MED ONE Stop: 03/18/18 21:07 Fentanyl (Sublimaze) Confirm Administered Dose 250 mcg .ROUTE .STK-MED ONE Stop: 03/18/18 19:48 Furosemide (Lasix) 20 mg IVPUSH ONETIME ONE Stop: 03/23/18 09:46 Last Admin: 03/23/18 10:18 Dose: 20 mg Furosemide (Lasix) 20 mg IVPUSH NOW ONE Stop: 03/25/18 10:01 Last Admin: 03/25/18 10:17 Dose: 20 mg Furosemide (Lasix) 20 mg IVPUSH ONETIME ONE Stop: 03/26/18 09:16 Last Admin: 03/26/18 09:10 Dose: 20 mg Furosemide (Lasix) 20 mg IVPUSH ONETIME ONE Stop: 03/26/18 16:01 Last Admin: 03/26/18 18:28 Dose: Not Given Glycopyrrolate (Robinul) Confirm Administered Dose 1 mg .ROUTE .STK-MED ONE Stop: 03/18/18 19:48 Heparin Sodium (Porcine) (Heparin Sodium) Confirm Administered Dose 5,000 units .ROUTE .STK-MED ONE Stop: 03/18/18 19:51 Heparin Sodium (Porcine) (Heparin Lock Flush 100 Units/Ml) Confirm Administered Dose 500 units .ROUTE .STK-MED ONE Stop: 03/22/18 12:17 Last Admin: 03/22/18 12:30 Dose: Not Given Heparin Sodium (Porcine) (Heparin Sodium) Confirm Administered Dose 5,000 units .ROUTE .STK-MED ONE Stop: 03/24/18 19:52 Last Admin: 03/24/18 20:33 Dose: 5,000 units Hydromorphone HCl (Dilaudid) 0.5 mg IVPUSH ONETIME ONE Stop: 03/18/18 17:43 Last Admin: 03/18/18 17:47 Dose: 0.5 mg Hydromorphone HCl (Dilaudid) 1 mg IVPUSH ONETIME ONE Stop: 03/18/18 18:18 Last Admin: 03/18/18 18:27 Dose: 1 mg Sodium Chloride (Normal Saline) 1,000 mls @ 1,000 mls/hr IV ASDIRECTED [facility] Last Admin: 03/18/18 17:47 Dose: 1,000 mls/hr Sodium Chloride (Normal Saline) 1,000 mls @ 999 mls/hr IV ASDIRECTED [facility] Last Admin: 03/18/18 19:31 Dose: 999 mls/hr Meropenem 500 mg/ Sodium (Chloride) 50 mls @ 100 mls/hr IV ONETIME ONE Stop: 03/18/18 19:09 Last Admin: 03/18/18 19:01 Dose: 100 mls/hr Sodium Chloride (Normal Saline) Confirm Administered Dose 50 mls @ as directed .ROUTE .STK-MED ONE Stop: 03/18/18 19:40 Last Admin: 03/18/18 20:19 Dose: Not Given Aztreonam 2 gm/ Sodium (Chloride) 50 mls @ 100 mls/hr IV ONETIME ONE Stop: 03/18/18 20:01 Last Admin: 03/18/18 20:44 Dose: 100 mls/hr Meropenem 500 mg/ Sodium (Chloride) 50 mls @ 100 mls/hr IV ONETIME ONE Stop: 03/18/18 20:00 Last Admin: 03/18/18 19:40 Dose: 100 mls/hr Sodium Chloride (Normal Saline) Confirm Administered Dose 250 mls @ as directed .ROUTE .[facility]-MED ONE Stop: 03/18/18 19:59 Lactated Ringer's (Ringers, Lactated) Confirm Administered Dose 1,000 mls @ as directed .ROUTE .[facility] ONE Stop: 03/18/18 19:59 Sodium Chloride (Normal Saline) Confirm Administered Dose 500 mls @ as directed .ROUTE .[facility] ONE Stop: 03/18/18 19:59 Norepinephrine Bitartrate 8 mg (/ Dextrose/Water) 258 mls @ 3.87 mls/hr IV TITRATE [facility]; Protocol Last Admin: 03/19/18 11:45 Dose: 12 mcg/min, 23.22 mls/hr Lactated Ringer's (Ringers, Lactated) Confirm Administered Dose 1,000 mls @ as directed .ROUTE .[facility] ONE Stop: 03/18/18 21:42 Aztreonam 1 gm/ Sodium (Chloride) 50 mls @ 100 mls/hr IV Q8H [facility] Last Admin: 03/19/18 05:29 Dose: 100 mls/hr Potassium Chloride/Dextrose/Sod Cl (D5 1/2 Ns W/ 20 Meq/L Kcl) 1,000 mls @ 150 mls/hr IV ASDIRECTED [facility] Last Admin: 03/18/18 23:11 Dose: 150 mls/hr Lactated Ringer's (Ringers, Lactated) 1,000 mls @ 500 mls/hr IV ASDIRECTED [facility] Last Admin: 03/19/18 01:23 Dose: 500 mls/hr Vasopressin 100 units/ (Dextrose/Water) 255 mls @ 1.53 mls/hr IV TITRATE [facility]; Protocol Stop: 03/21/18 13:00 Last Titration: 03/21/18 11:03 Dose: 0.02 units/min, 3.06 mls/hr Lactated Ringer's (Ringers, Lactated) 1,000 mls @ 500 mls/hr IV BOLUS [facility] Stop: 03/19/18 05:29 Last Admin: 03/19/18 04:02 Dose: 500 mls/hr Lactated Ringer's (Ringers, Lactated) 1,000 mls @ 500 mls/hr IV .BOLUS ONE Stop: 03/19/18 14:59 Last Admin: 03/19/18 14:27 Dose: 500 mls/hr Lactated Ringer's (Ringers, Lactated) 1,000 mls @ 150 mls/hr IV ASDIRECTED [facility] Last Admin: 03/21/18 11:53 Dose: 150 mls/hr Magnesium Sulfate 2 gm/ Premix 50 mls @ 25 mls/hr IV Q6H [facility] Stop: 03/20/18 17:59 Last Admin: 03/20/18 16:30 Dose: 25 mls/hr Vancomycin HCl 1.25 gm/ Sodium (Chloride) 250 mls @ 170 mls/hr IV Q24H [facility] Last Admin: 03/22/18 10:06 Dose: 170 mls/hr Vasopressin 40 units/ Dextrose (/Water) 100 mls @ 3 mls/hr IV TITRATE [facility]; Protocol Last Titration: 03/23/18 01:00 Dose: 0 units/min, 0 mls/hr Potassium Chloride 20 meq/ (Premix) 100 mls @ 50 mls/hr IV Q2H [facility] Stop: 03/21/18 22:59 Last Admin: 03/21/18 22:20 Dose: 50 mls/hr Potassium Chloride 20 meq/ (Premix) 100 mls @ 50 mls/hr IV Q2H [facility] Stop: 03/22/18 12:59 Last Admin: 03/22/18 11:30 Dose: 50 mls/hr Potassium Chloride 20 meq/ (Premix) 100 mls @ 50 mls/hr IV Q2H [facility] Stop: 03/22/18 17:29 Last Admin: 03/22/18 16:13 Dose: 50 mls/hr Potassium Chloride (Kcl 20 Meq In Water 100 Ml) 100 mls @ 50 mls/hr IV Q2H [facility] Stop: 03/23/18 01:59 Last Admin: 03/23/18 00:53 Dose: 50 mls/hr Potassium Chloride 40 meq/ (Premix) 100 mls @ 25 mls/hr IV ONETIME ONE Stop: 03/23/18 14:29 Last Admin: 03/23/18 10:31 Dose: 25 mls/hr Vancomycin HCl 1.4 gm/ Sodium (Chloride) 250 mls @ 170 mls/hr IV Q24H [facility] Last Admin: 03/24/18 11:13 Dose: 170 mls/hr Multivitamins/Minerals 10 ml/Chromium/Copper/Manganese/Seleni/Zn 1 ml/ Amino Ac/ Electrol/Dextrose/Calcium 1,011 mls @ 75 mls/hr IV .BY DURATION [facility] Last Admin: 03/25/18 22:34 Dose: 75 mls/hr Amino Ac/Electrol/Dextrose/Calcium (Clinimix E 5/15) 1,000 mls @ 75 mls/hr IV .BY DURATION [facility] Last Admin: 03/25/18 08:11 Dose: 75 mls/hr Vasopressin 100 units/ (Dextrose/Water) 255 mls @ 1.53 mls/hr IV TITRATE [facility]; Protocol Last Titration: 03/25/18 11:51 Dose: 0 units/min, 0 mls/hr Potassium Chloride 20 meq/ (Premix) 100 mls @ 50 mls/hr IV Q2H [facility] Stop: 03/24/18 13:59 Last Admin: 03/24/18 12:13 Dose: 50 mls/hr Meropenem (Merrem) Confirm Administered Dose 500 mg .ROUTE .STK-MED ONE Stop: 03/18/18 19:40 Last Admin: 03/18/18 20:19 Dose: Not Given Neostigmine Methylsulfate (Neostigmine) Confirm Administered Dose 5 mg .ROUTE .STK-MED ONE Stop: 03/18/18 19:48 Non-Formulary Medication (Total Parenteral Nutrition, Central) 1,000 ml .XX .Continue Order [facility]; Protocol Stop: 03/24/18 11:31 Non-Formulary Medication (Total Parenteral Nutrition, Central) 1,000 ml .XX .Continue Order [facility]; Protocol Ondansetron HCl (Zofran) 4 mg IVPUSH ONETIME ONE Stop: 03/18/18 18:18 Last Admin: 03/18/18 18:27 Dose: 4 mg Ondansetron HCl (Zofran) Confirm Administered Dose 4 mg .ROUTE .STK-MED ONE Stop: 03/18/18 19:48 Phenylephrine HCl (Isaías-Synephrine) Confirm Administered Dose 10 mg .ROUTE .STK- MED ONE Stop: 03/18/18 20:05 Propofol (Diprivan 20 Ml) Confirm Administered Dose 200 mg .ROUTE .STK-MED ONE Stop: 03/18/18 19:48 Rocuronium Ary (Zemuron) Confirm Administered Dose 50 mg .ROUTE .STK-MED ONE Stop: 03/18/18 19:48 Succinylcholine Chloride (Quelicin) Confirm Administered Dose 200 mg .ROUTE .STK -MED ONE Stop: 03/18/18 19:48 Vancomycin HCl (Vancomycin) 1 gm IV .PHARMACY TO DOSE [facility] Stop: 03/21/18 16:00 - Exam Quality Assessment: Supplemental Oxygen, Central Line/PICC, Urine Catheter, DVT Prophylaxis, Restraints General: Alert, Cooperative, No Acute Distress HEENT: Pupils Equal Neck: Supple Lungs: Normal Respiratory Effort, Decreased Breath Sounds (left lung base), Crackles (few left lung base) Cardiovascular: Regular Rate, Regular Rhythm, No Murmurs GI/Abdominal Exam: Soft, No Distention, Other (ostomy LLQ, no stool in the bag) . No: Abnormal Bowel Sounds (hypoactive) Extremities: Pedal Edema (dependent edema from thighs to groin), Other (edema of both arms R>L) Skin: Warm, Dry Psy/Mental Status: Alert. No: Agitated - Problem List Review Problem List Initiated/Reviewed/Updated: Yes - My Orders Last 24 Hours: My Active Orders 03/26/18 11:30 ALT Order 03/27/18 09:27 Furosemide [Lasix] 20 mg IVPUSH NOW ONE 03/27/18 09:30 Central TPN [Total Parenteral Nutrition, Central] 1,000 ml .XX .Continue Order 03/28/18 05:00 Chest 1V Frontal [CR] DAILY BASIC METABOLIC PANEL,BMP [CHEM] Timed BLOOD GAS ARTERIAL [BG] Timed CBC W/O DIFF,HEMOGRAM [HEME] Timed (1) - Plan Plan:: ASSESSMENT AND PLAN SIGMOID COLON PERFORATION RESULTING IN ACUTE ABDOMEN AND SEPTIC SHOCK - status post exploratory laparotomy with partial sigmoid colon resection and creation of a colostomy. Remains critically ill with septic shock and respiratory compromise. Vasopressor support continues to decrease following initiation of stress dose steroids. -meropenem and Azactam -Post operative surgical care per Dr. Adams -morphine as needed for pain SEPTIC SHOCK - secondary to intestinal perforation, solid and liquid stool noted throughout the abdominal cavity at the time of surgery. Decreasing vasopressor support and ongoing clinical improvement. -Antibiotic therapy as above -Continue norepinephrine and wean as able -continue hydrocortisone ACUTE HYPOXIC RESPIRATORY FAILURE - secondary to septic shock, colon perforation , recent surgery and underlying COPD. Ventilator support minimal at this time and respiratory status has been fairly stable. He has done well without sedation for 3 days in a row and I hope to be able to extubate tomorrow. -Minimize sedation during the day and re-sedate overnight -Continue mechanical ventilation until he is more hemodynamically stable STEROID-INDUCED HYPERGLYCEMIA - patient has been receiving hydrocortisone for the past several days and is on TPN. Blood sugar control is improving. -Sliding-scale insulin -Continue insulin in TPN COPD - [id number] smoking history but no evidence for exacerbation at this time. -Nebulized albuterol as needed -Vigorous pulmonary toilet during the postoperative period ACUTE KIDNEY INJURY - kidney function now back to baseline. Will need close monitoring during the diuresis. Still evidence for volume overload today with edema of the arms though this seems to be improving. -Twice daily diuresis as tolerated -Closely monitor urine output and renal function during the postoperative period HISTORY OF LUNG AND PROSTATE CARCINOMA - lung cancer felt to be stable, currently receiving active treatment for management of prostate carcinoma MAINTENANCE ISSUES -DVT prophylaxis; SCUDs -GI prophylaxis; Protonix 40 mg IV daily -Sorto catheter; patient remains critically ill and catheter remains necessary for strict intake and output monitoring -Nutrition; nothing by mouth, continuing TPN DISPOSITION - anticipate discharge to detention if he survives the hospital stay Stephon Christy M.D.
[2018-03-27] MEDS ORDERED: Furosemide 20 MG/2 ML VIAL IVPUSH ONE (10:00)
--- NOTE | 2018-03-27 10:11 | PCM.SURGPN ---
- General Info Date of Service: 03/27/18 Date of Surgery/Procedure: 03/18/18 POD#: 9 Post-Op Diagnosis: Perforated sigmoid colon, [place] IV Functional Status: Reports: Pain Controlled, Other (He remains intubated) - Review of Systems General: Reports: Other (Patient is intubated and can not give information about his ROS. ) - Patient Data Vitals - Most Recent: Last Vital Signs Temp 97.5 F 03/27/18 07:00 Pulse 80 03/27/18 07:00 Resp 14 03/27/18 09:00 BP 111/44 L 03/27/18 09:00 Pulse Ox 100 03/27/18 09:00 Weight - Most Recent: 153 lb 0.013 oz I&O - Last 24 Hours: Intake & Output 03/26/18 03/27/18 03/27/18 22:59 06:59 14:59 Intake Total 1238 1281 Output Total 270 855 Balance 968 426 Lab Results Last 24 Hrs: Laboratory Results - last 24 hr 03/27/18 03/27/18 03/27/18 Range/Units 05:00 05:00 05:00 WBC 19.0 H (4.5-11.0) K/uL RBC 3.34 L (4.30-5.90) M/uL Hgb 9.8 L (12.0-15.0) g/dL Hct 31.0 L (40.0-54.0) % MCV 93 (80-98) fL MCH 29 (27-31) pg MCHC 32 (32-36) % Plt Count 448 H (150-400) K/uL Puncture Site A-line ABG pH 7.382 (7.350-7.450) ABG pCO2 41.6 (35.0-42.0) mmHg ABG pO2 81.7 (75.0-100.0) mmHg ABG HCO3 24.2 (22.0-26.0) mmol/L ABG Total CO2 22.2 L (23.0-27.0) mmol/L ABG O2 Saturation 95.6 (95.0-98.0) % ABG O2 Content 14.8 L (15.0-23.0) %vol ABG Base Excess -0.3 mm/L ABG Hemoglobin 11.1 L (13.5-18.0) g/dL ABG Oxyhemoglobin 94.5 % ABG Carboxyhemoglobin 0.6 (0.0-1.6) % ABG Methemoglobin 0.6 % Craig Test Passed O2 Delivery Device Ventilator Sodium 148 (140-148) mmol/L Potassium 3.9 (3.6-5.2) mmol/L Chloride 115 H (100-108) mmol/L Carbon Dioxide 25 (21-32) mmol/L Anion Gap 11.9 (5.0-14.0) mmol/L BUN 65 H (7-18) mg/dL Creatinine 1.2 (0.8-1.3) mg/dL Est Cr Clr Drug Dosing 49.61 mL/min Estimated GFR (MDRD) 59 L (>60) Glucose 164 H (74-106) mg/dL Calcium 7.8 L (8.5-10.1) mg/dL Med Orders - Current: Current Medications Acetaminophen (Tylenol) 650 mg RECTAL Q4H PRN PRN Reason: Fever Furosemide (Lasix) 20 mg IVPUSH NOW ONE Stop: 03/27/18 10:01 Heparin Sodium (Porcine) (Heparin Lock Flush 100 Units/Ml) 500 units FLUSH ASDIRECTED PRN PRN Reason: IV Use Last Admin: 03/22/18 12:28 Dose: 500 units Hydrocortisone Sodium Succinate (Solu-Cortef) 100 mg IVPUSH Q12H [facility] Last Admin: 03/27/18 08:46 Dose: 100 mg Propofol (Diprivan 100 Ml) 100 mls @ 2.082 mls/hr IV TITRATE [facility]; Protocol Last Titration: 03/27/18 06:35 Dose: 10 mcg/kg/min, 4.164 mls/hr Meropenem 1 gm/ Sodium (Chloride) 50 mls @ 100 mls/hr IV Q12H [facility] Last Admin: 03/27/18 07:47 Dose: 100 mls/hr Aztreonam/Dextrose 1 gm/ (Premix) 50 mls @ 100 mls/hr IV Q8H [facility] Last Admin: 03/27/18 05:52 Dose: 100 mls/hr Norepinephrine Bitartrate 8 mg (/ Dextrose/Water) 250 mls @ 3.75 mls/hr IV TITRATE [facility]; Protocol Last Titration: 03/27/18 09:04 Dose: 4 mcg/min, 7.5 mls/hr Multivitamins/Minerals 10 ml/Chromium/Copper/Manganese/Seleni/Zn 1 ml/ Amino Ac/ Electrol/Dextrose/Calcium 1,011 mls @ 75 mls/hr IV .BY DURATION [facility] Last Admin: 03/27/18 00:44 Dose: 75 mls/hr Amino Ac/Electrol/Dextrose/Calcium (Clinimix E 15) 1,000 mls @ 75 mls/hr IV .BY DURATION [facility] Last Admin: 03/26/18 11:31 Dose: 75 mls/hr Heparin Sodium (Porcine) 5,000 (units/ Sodium Chloride) 501 mls @ 5 mls/hr IV ASDIRECTED [facility] Insulin Human Lispro (Humalog) 0 unit SUBCUT Q6H [facility]; Protocol Last Admin: 03/27/18 06:03 Dose: Not Given Morphine Sulfate (Morphine) 4 mg IVPUSH Q2H PRN PRN Reason: Pain Last Admin: 03/27/18 02:55 Dose: 4 mg Non-Formulary Medication (Total Parenteral Nutrition, Central) 1,000 ml .XX .Continue Order [facility]; Protocol Nystatin (Mycostatin) 5 ml PO QID [facility] Last Admin: 03/27/18 06:02 Dose: 5 ml Pantoprazole Sodium (Protonix Iv) 40 mg IVPUSH DAILY [facility] Last Admin: 03/27/18 08:50 Dose: 40 mg Discontinued Medications Dexamethasone (Dexamethasone) Confirm Administered Dose 4 mg .ROUTE .STK-MED ONE Stop: 03/18/18 19:48 Epinephrine HCl (Adrenalin) Confirm Administered Dose 1 mg .ROUTE .STK-MED ONE Stop: 03/18/18 21:07 Fentanyl (Sublimaze) Confirm Administered Dose 250 mcg .ROUTE .STK-MED ONE Stop: 03/18/18 19:48 Furosemide (Lasix) 20 mg IVPUSH ONETIME ONE Stop: 03/23/18 09:46 Last Admin: 03/23/18 10:18 Dose: 20 mg Furosemide (Lasix) 20 mg IVPUSH NOW ONE Stop: 03/25/18 10:01 Last Admin: 03/25/18 10:17 Dose: 20 mg Furosemide (Lasix) 20 mg IVPUSH ONETIME ONE Stop: 03/26/18 09:16 Last Admin: 03/26/18 09:10 Dose: 20 mg Furosemide (Lasix) 20 mg IVPUSH ONETIME ONE Stop: 03/26/18 16:01 Last Admin: 03/26/18 18:28 Dose: Not Given Glycopyrrolate (Robinul) Confirm Administered Dose 1 mg .ROUTE .[facility] ONE Stop: 03/18/18 19:48 Heparin Sodium (Porcine) (Heparin Sodium) Confirm Administered Dose 5,000 units .ROUTE .[facility] ONE Stop: 03/18/18 19:51 Heparin Sodium (Porcine) (Heparin Lock Flush 100 Units/Ml) Confirm Administered Dose 500 units .ROUTE .[facility] ONE Stop: 03/22/18 12:17 Last Admin: 03/22/18 12:30 Dose: Not Given Heparin Sodium (Porcine) (Heparin Sodium) Confirm Administered Dose 5,000 units .ROUTE .[facility] ONE Stop: 03/24/18 19:52 Last Admin: 03/24/18 20:33 Dose: 5,000 units Hydromorphone HCl (Dilaudid) 0.5 mg IVPUSH ONETIME ONE Stop: 03/18/18 17:43 Last Admin: 03/18/18 17:47 Dose: 0.5 mg Hydromorphone HCl (Dilaudid) 1 mg IVPUSH ONETIME ONE Stop: 03/18/18 18:18 Last Admin: 03/18/18 18:27 Dose: 1 mg Sodium Chloride (Normal Saline) 1,000 mls @ 1,000 mls/hr IV ASDIRECTED [facility] Last Admin: 03/18/18 17:47 Dose: 1,000 mls/hr Sodium Chloride (Normal Saline) 1,000 mls @ 999 mls/hr IV ASDIRECTED [facility] Last Admin: 03/18/18 19:31 Dose: 999 mls/hr Meropenem 500 mg/ Sodium (Chloride) 50 mls @ 100 mls/hr IV ONETIME ONE Stop: 03/18/18 19:09 Last Admin: 03/18/18 19:01 Dose: 100 mls/hr Sodium Chloride (Normal Saline) Confirm Administered Dose 50 mls @ as directed .ROUTE .[facility] ONE Stop: 03/18/18 19:40 Last Admin: 03/18/18 20:19 Dose: Not Given Aztreonam 2 gm/ Sodium (Chloride) 50 mls @ 100 mls/hr IV ONETIME ONE Stop: 03/18/18 20:01 Last Admin: 03/18/18 20:44 Dose: 100 mls/hr Meropenem 500 mg/ Sodium (Chloride) 50 mls @ 100 mls/hr IV ONETIME ONE Stop: 03/18/18 20:00 Last Admin: 03/18/18 19:40 Dose: 100 mls/hr Sodium Chloride (Normal Saline) Confirm Administered Dose 250 mls @ as directed .ROUTE .STK-MED ONE Stop: 03/18/18 19:59 Lactated Ringer's (Ringers, Lactated) Confirm Administered Dose 1,000 mls @ as directed .ROUTE .[facility] ONE Stop: 03/18/18 19:59 Sodium Chloride (Normal Saline) Confirm Administered Dose 500 mls @ as directed .ROUTE .[facility] ONE Stop: 03/18/18 19:59 Norepinephrine Bitartrate 8 mg (/ Dextrose/Water) 258 mls @ 3.87 mls/hr IV TITRATE [facility]; Protocol Last Admin: 03/19/18 11:45 Dose: 12 mcg/min, 23.22 mls/hr Lactated Ringer's (Ringers, Lactated) Confirm Administered Dose 1,000 mls @ as directed .ROUTE .[facility] ONE Stop: 03/18/18 21:42 Aztreonam 1 gm/ Sodium (Chloride) 50 mls @ 100 mls/hr IV Q8H [facility] Last Admin: 03/19/18 05:29 Dose: 100 mls/hr Potassium Chloride/Dextrose/Sod Cl (D5 1/2 Ns W/ 20 Meq/L Kcl) 1,000 mls @ 150 mls/hr IV ASDIRECTED [facility] Last Admin: 03/18/18 23:11 Dose: 150 mls/hr Lactated Ringer's (Ringers, Lactated) 1,000 mls @ 500 mls/hr IV ASDIRECTED [facility] Last Admin: 03/19/18 01:23 Dose: 500 mls/hr Vasopressin 100 units/ (Dextrose/Water) 255 mls @ 1.53 mls/hr IV TITRATE [facility]; Protocol Stop: 03/21/18 13:00 Last Titration: 03/21/18 11:03 Dose: 0.02 units/min, 3.06 mls/hr Lactated Ringer's (Ringers, Lactated) 1,000 mls @ 500 mls/hr IV BOLUS [facility] Stop: 03/19/18 05:29 Last Admin: 03/19/18 04:02 Dose: 500 mls/hr Lactated Ringer's (Ringers, Lactated) 1,000 mls @ 500 mls/hr IV .BOLUS ONE Stop: 03/19/18 14:59 Last Admin: 03/19/18 14:27 Dose: 500 mls/hr Lactated Ringer's (Ringers, Lactated) 1,000 mls @ 150 mls/hr IV ASDIRECTED [facility] Last Admin: 03/21/18 11:53 Dose: 150 mls/hr Magnesium Sulfate 2 gm/ Premix 50 mls @ 25 mls/hr IV Q6H [facility] Stop: 03/20/18 17:59 Last Admin: 03/20/18 16:30 Dose: 25 mls/hr Vancomycin HCl 1.25 gm/ Sodium (Chloride) 250 mls @ 170 mls/hr IV Q24H [facility] Last Admin: 03/22/18 10:06 Dose: 170 mls/hr Vasopressin 40 units/ Dextrose (/Water) 100 mls @ 3 mls/hr IV TITRATE [facility]; Protocol Last Titration: 03/23/18 01:00 Dose: 0 units/min, 0 mls/hr Potassium Chloride 20 meq/ (Premix) 100 mls @ 50 mls/hr IV Q2H [facility] Stop: 03/21/18 22:59 Last Admin: 03/21/18 22:20 Dose: 50 mls/hr Potassium Chloride 20 meq/ (Premix) 100 mls @ 50 mls/hr IV Q2H [facility] Stop: 03/22/18 12:59 Last Admin: 03/22/18 11:30 Dose: 50 mls/hr Potassium Chloride 20 meq/ (Premix) 100 mls @ 50 mls/hr IV Q2H [facility] Stop: 03/22/18 17:29 Last Admin: 03/22/18 16:13 Dose: 50 mls/hr Potassium Chloride (Kcl 20 Meq In Water 100 Ml) 100 mls @ 50 mls/hr IV Q2H [facility] Stop: 03/23/18 01:59 Last Admin: 03/23/18 00:53 Dose: 50 mls/hr Potassium Chloride 40 meq/ (Premix) 100 mls @ 25 mls/hr IV ONETIME ONE Stop: 03/23/18 14:29 Last Admin: 03/23/18 10:31 Dose: 25 mls/hr Vancomycin HCl 1.4 gm/ Sodium (Chloride) 250 mls @ 170 mls/hr IV Q24H [facility] Last Admin: 03/24/18 11:13 Dose: 170 mls/hr Multivitamins/Minerals 10 ml/Chromium/Copper/Manganese/Seleni/Zn 1 ml/ Amino Ac/ Electrol/Dextrose/Calcium 1,011 mls @ 75 mls/hr IV .BY DURATION [facility] Last Admin: 03/25/18 22:34 Dose: 75 mls/hr Amino Ac/Electrol/Dextrose/Calcium (Clinimix E 15) 1,000 mls @ 75 mls/hr IV .BY DURATION [facility] Last Admin: 03/25/18 08:11 Dose: 75 mls/hr Vasopressin 100 units/ (Dextrose/Water) 255 mls @ 1.53 mls/hr IV TITRATE [facility]; Protocol Last Titration: 03/25/18 11:51 Dose: 0 units/min, 0 mls/hr Potassium Chloride 20 meq/ (Premix) 100 mls @ 50 mls/hr IV Q2H [facility] Stop: 03/24/18 13:59 Last Admin: 03/24/18 12:13 Dose: 50 mls/hr Meropenem (Merrem) Confirm Administered Dose 500 mg .ROUTE .STK-MED ONE Stop: 03/18/18 19:40 Last Admin: 03/18/18 20:19 Dose: Not Given Neostigmine Methylsulfate (Neostigmine) Confirm Administered Dose 5 mg .ROUTE .STK-MED ONE Stop: 03/18/18 19:48 Non-Formulary Medication (Total Parenteral Nutrition, Central) 1,000 ml .XX .Continue Order [facility]; Protocol Stop: 03/24/18 11:31 Non-Formulary Medication (Total Parenteral Nutrition, Central) 1,000 ml .XX .Continue Order [facility]; Protocol Ondansetron HCl (Zofran) 4 mg IVPUSH ONETIME ONE Stop: 03/18/18 18:18 Last Admin: 03/18/18 18:27 Dose: 4 mg Ondansetron HCl (Zofran) Confirm Administered Dose 4 mg .ROUTE .STK-MED ONE Stop: 03/18/18 19:48 Phenylephrine HCl (Isaías-Synephrine) Confirm Administered Dose 10 mg .ROUTE .STK- MED ONE Stop: 03/18/18 20:05 Propofol (Diprivan 20 Ml) Confirm Administered Dose 200 mg .ROUTE .STK-MED ONE Stop: 03/18/18 19:48 Rocuronium [place] (Zemuron) Confirm Administered Dose 50 mg .ROUTE .STK-MED ONE Stop: 03/18/18 19:48 Succinylcholine Chloride (Quelicin) Confirm Administered Dose 200 mg .ROUTE .STK -MED ONE Stop: 03/18/18 19:48 Vancomycin HCl (Vancomycin) 1 gm IV .PHARMACY TO DOSE [facility] Stop: 03/21/18 16:00 - Exam Wound/Incisions: Healing Well, Dressing Dry and Intact General: Other (On SIMV ventilated which he is tolerating. ) Lungs: Clear to Auscultation Cardiovascular: Regular Rate, Regular Rhythm GI/Abdominal Exam: Abnormal Bowel Sounds (Hypoactive bowel sounds. ), Other ( Ostomy is dark. ) Extremities: Normal Inspection Psy/Mental Status: Other (Sedated. ) - Problem List & Annotations (1) Perforation of sigmoid colon SNOMED Code(s): 437760343 Code(s): K63.1 - PERFORATION OF INTESTINE (NONTRAUMATIC) Status: Acute Current Visit: Yes - Problem List Review Problem List Initiated/Reviewed/Updated: Yes - My Orders Last 24 Hours: Active Orders 24 hr Category Date Time Status Chest 1V Frontal [CR] DAILY Exams 03/28/18 05:00 Ordered BASIC METABOLIC PANEL,BMP [CHEM] Timed Lab 03/28/18 05:00 Ordered BLOOD GAS ARTERIAL [BG] Timed Lab 03/28/18 05:00 Ordered CBC W/O DIFF,HEMOGRAM [HEME] Timed (1) Lab 03/28/18 05:00 Ordered ALT Order Med 03/26/18 11:30 Active Central TPN [Total Parenteral Nutrition, Central] Med 03/27/18 09:30 Active 1,000 ml .XX .Continue Order Furosemide [Lasix] Med 03/27/18 10:00 Once 20 mg IVPUSH NOW ONE Heparin Sodium 5,000 units Med 03/27/18 09:00 Active Sodium Chloride 0.9% [Normal Saline] 500 ml IV ASDIRECTED Medication Orders Acetaminophen (Tylenol) 650 mg RECTAL Q4H PRN PRN Reason: Fever Furosemide (Lasix) 20 mg IVPUSH NOW ONE Stop: 03/27/18 10:01 Heparin Sodium (Porcine) (Heparin Lock Flush 100 Units/Ml) 500 units FLUSH ASDIRECTED PRN PRN Reason: IV Use Last Admin: 03/22/18 12:28 Dose: 500 units Hydrocortisone Sodium Succinate (Solu-Cortef) 100 mg IVPUSH Q12H [facility] Last Admin: 03/27/18 08:46 Dose: 100 mg Admin: 03/26/18 20:59 Dose: 100 mg Admin: 03/26/18 08:58 Dose: 100 mg Admin: 03/25/18 20:56 Dose: 100 mg Admin: 03/25/18 09:47 Dose: 100 mg Admin: 03/24/18 21:24 Dose: 100 mg Admin: 03/24/18 09:51 Dose: 100 mg Propofol (Diprivan 100 Ml) 100 mls @ 2.082 mls/hr IV TITRATE [facility]; Protocol Last Titration: 03/27/18 06:35 Dose: 10 mcg/kg/min, 4.164 mls/hr Admin: 03/27/18 05:51 Dose: 15 mcg/kg/min, 6.246 mls/hr Titration: 03/27/18 05:51 Dose: 20 mcg/kg/min, 8.328 mls/hr Titration: 03/26/18 19:57 Dose: 20 mcg/kg/min, 8.328 mls/hr Admin: 03/26/18 18:39 Dose: 10 mcg/kg/min, 4.164 mls/hr Titration: 03/26/18 18:39 Dose: 0 mcg/kg/min, 0 mls/hr Titration: 03/26/18 08:09 Dose: 0 mcg/kg/min, 0 mls/hr Admin: 03/26/18 00:40 Dose: 20 mcg/kg/min, 8.328 mls/hr Titration: 03/26/18 00:40 Dose: 20 mcg/kg/min, 8.328 mls/hr Titration: 03/25/18 17:51 Dose: 20 mcg/kg/min, 8.328 mls/hr Titration: 03/25/18 09:39 Dose: 0 mcg/kg/min, 0 mls/hr Admin: 03/25/18 07:31 Dose: 36 mcg/kg/min, 14.99 mls/hr Titration: 03/25/18 07:02 Dose: 36 mcg/kg/min, 14.99 mls/hr Titration: 03/25/18 04:13 Dose: 36 mcg/kg/min, 14.99 mls/hr Titration: 03/25/18 03:40 Dose: 41 mcg/kg/min, 17.072 mls/hr Admin: 03/25/18 00:23 Dose: 36 mcg/kg/min, 14.99 mls/hr Titration: 03/25/18 00:23 Dose: 36 mcg/kg/min, 14.99 mls/hr Titration: 03/24/18 20:47 Dose: 36 mcg/kg/min, 14.99 mls/hr Admin: 03/24/18 17:38 Dose: 33 mcg/kg/min, 13.741 mls/hr Titration: 03/24/18 17:38 Dose: 33 mcg/kg/min, 13.741 mls/hr Titration: 03/24/18 16:55 Dose: 33 mcg/kg/min, 13.741 mls/hr Admin: 03/24/18 10:35 Dose: 30 mcg/kg/min, 12.492 mls/hr Titration: 03/24/18 10:26 Dose: 30 mcg/kg/min, 12.492 mls/hr Admin: 03/24/18 02:25 Dose: 30 mcg/kg/min, 12.492 mls/hr Titration: 03/24/18 02:25 Dose: 30 mcg/kg/min, 12.492 mls/hr Admin: 03/23/18 19:30 Dose: 30 mcg/kg/min, 12.492 mls/hr Titration: 03/23/18 18:26 Dose: 30 mcg/kg/min, 12.492 mls/hr Admin: 03/23/18 10:25 Dose: 30 mcg/kg/min, 12.492 mls/hr Titration: 03/23/18 10:25 Dose: 30 mcg/kg/min, 12.492 mls/hr Admin: 03/23/18 04:37 Dose: 30 mcg/kg/min, 12.492 mls/hr Titration: 03/23/18 04:37 Dose: 30 mcg/kg/min, 12.492 mls/hr Admin: 03/22/18 21:42 Dose: 30 mcg/kg/min, 12.492 mls/hr Titration: 03/22/18 14:59 Dose: 30 mcg/kg/min, 12.492 mls/hr Admin: 03/22/18 06:58 Dose: 30 mcg/kg/min, 12.492 mls/hr Titration: 03/22/18 06:58 Dose: 30 mcg/kg/min, 12.492 mls/hr Admin: 03/22/18 00:19 Dose: 30 mcg/kg/min, 12.492 mls/hr Titration: 03/21/18 23:46 Dose: 30 mcg/kg/min, 12.492 mls/hr Titration: 03/21/18 22:00 Dose: 30 mcg/kg/min, 12.492 mls/hr Titration: 03/21/18 21:45 Dose: 25 mcg/kg/min, 10.41 mls/hr Admin: 03/21/18 13:55 Dose: 23 mcg/kg/min, 9.577 mls/hr Titration: 03/21/18 13:55 Dose: 23 mcg/kg/min, 9.577 mls/hr Admin: 03/21/18 04:59 Dose: 23 mcg/kg/min, 9.577 mls/hr Titration: 03/21/18 04:59 Dose: 23 mcg/kg/min, 9.577 mls/hr Admin: 03/20/18 19:28 Dose: 23 mcg/kg/min, 9.577 mls/hr Titration: 03/20/18 19:28 Dose: 23 mcg/kg/min, 9.577 mls/hr Titration: 03/20/18 11:48 Dose: 23 mcg/kg/min, 9.577 mls/hr Admin: 03/20/18 09:35 Dose: 20 mcg/kg/min, 8.328 mls/hr Titration: 03/20/18 09:35 Dose: 20 mcg/kg/min, 8.328 mls/hr Admin: 03/19/18 22:55 Dose: 20 mcg/kg/min, 8.328 mls/hr Titration: 03/19/18 20:57 Dose: 20 mcg/kg/min, 8.328 mls/hr Admin: 03/19/18 08:56 Dose: 20 mcg/kg/min, 8.328 mls/hr Titration: 03/19/18 08:56 Dose: 25 mcg/kg/min, 10.41 mls/hr Titration: 03/19/18 06:13 Dose: 25 mcg/kg/min, 10.41 mls/hr Titration: 03/19/18 00:26 Dose: 20 mcg/kg/min, 8.328 mls/hr Titration: 03/18/18 23:29 Dose: 10 mcg/kg/min, 4.164 mls/hr Titration: 03/18/18 23:18 Dose: 15 mcg/kg/min, 6.246 mls/hr Admin: 03/18/18 22:49 Dose: 5 mcg/kg/min, 2.082 mls/hr Meropenem 1 gm/ Sodium (Chloride) 50 mls @ 100 mls/hr IV Q12H [facility] Last Admin: 03/27/18 07:47 Dose: 100 mls/hr Admin: 03/26/18 19:53 Dose: 100 mls/hr Admin: 03/26/18 08:06 Dose: 100 mls/hr Admin: 03/25/18 20:01 Dose: 100 mls/hr Admin: 03/25/18 08:10 Dose: 100 mls/hr Admin: 03/24/18 19:48 Dose: 100 mls/hr Admin: 03/24/18 07:37 Dose: 100 mls/hr Admin: 03/23/18 20:02 Dose: 100 mls/hr Admin: 03/23/18 07:50 Dose: 100 mls/hr Admin: 03/22/18 19:59 Dose: 100 mls/hr Admin: 03/22/18 08:09 Dose: 100 mls/hr Admin: 03/21/18 20:34 Dose: 100 mls/hr Admin: 03/21/18 09:04 Dose: 100 mls/hr Admin: 03/20/18 20:49 Dose: 100 mls/hr Admin: 03/20/18 08:04 Dose: 100 mls/hr Admin: 03/19/18 20:25 Dose: 100 mls/hr Admin: 03/19/18 08:12 Dose: 100 mls/hr Aztreonam/Dextrose 1 gm/ (Premix) 50 mls @ 100 mls/hr IV Q8H [facility] Last Admin: 03/27/18 05:52 Dose: 100 mls/hr Admin: 03/26/18 20:59 Dose: 100 mls/hr Admin: 03/26/18 13:21 Dose: 100 mls/hr Admin: 03/26/18 05:03 Dose: 100 mls/hr Admin: 03/25/18 20:56 Dose: 100 mls/hr Admin: 03/25/18 12:32 Dose: 100 mls/hr Admin: 03/25/18 05:02 Dose: 100 mls/hr Admin: 03/24/18 20:37 Dose: 100 mls/hr Admin: 03/24/18 12:45 Dose: 100 mls/hr Admin: 03/24/18 04:00 Dose: 100 mls/hr Admin: 03/23/18 20:55 Dose: 100 mls/hr Admin: 03/23/18 14:04 Dose: 100 mls/hr Admin: 03/23/18 04:37 Dose: 100 mls/hr Admin: 03/22/18 21:41 Dose: 100 mls/hr Admin: 03/22/18 14:00 Dose: 100 mls/hr Admin: 03/22/18 04:24 Dose: 100 mls/hr Admin: 03/21/18 20:38 Dose: 100 mls/hr Admin: 03/21/18 12:26 Dose: 100 mls/hr Admin: 03/21/18 04:59 Dose: 100 mls/hr Admin: 03/20/18 21:31 Dose: 100 mls/hr Admin: 03/20/18 13:28 Dose: 100 mls/hr Admin: 03/20/18 05:34 Dose: 100 mls/hr Admin: 03/19/18 21:01 Dose: 100 mls/hr Admin: 03/19/18 14:26 Dose: 100 mls/hr Norepinephrine Bitartrate 8 mg (/ Dextrose/Water) 250 mls @ 3.75 mls/hr IV TITRATE [facility]; Protocol Last Titration: 03/27/18 09:04 Dose: 4 mcg/min, 7.5 mls/hr Titration: 03/27/18 08:07 Dose: 5 mcg/min, 9.37 mls/hr Titration: 03/27/18 07:50 Dose: 6 mcg/min, 11.25 mls/hr Titration: 03/27/18 06:35 Dose: 7 mcg/min, 13.12 mls/hr Titration: 03/27/18 01:00 Dose: 6 mcg/min, 11.25 mls/hr Titration: 03/26/18 22:47 Dose: 7 mcg/min, 13.12 mls/hr Admin: 03/26/18 16:17 Dose: 8 mcg/min, 15 mls/hr Titration: 03/26/18 16:17 Dose: 8 mcg/min, 15 mls/hr Titration: 03/26/18 08:10 Dose: 8 mcg/min, 15 mls/hr Admin: 03/26/18 01:30 Dose: 10 mcg/min, 18.75 mls/hr Titration: 03/25/18 07:43 Dose: 11 mcg/min, 20.62 mls/hr Admin: 03/24/18 14:31 Dose: 13 mcg/min, 24.37 mls/hr Titration: 03/24/18 13:27 Dose: 23 mcg/min, 43.12 mls/hr Titration: 03/24/18 10:08 Dose: 23 mcg/min, 43.12 mls/hr Titration: 03/24/18 10:08 Dose: 13 mcg/min, 24.37 mls/hr Admin: 03/24/18 07:39 Dose: 23 mcg/min, 43.12 mls/hr Titration: 03/24/18 07:00 Dose: 23 mcg/min, 43.12 mls/hr Admin: 03/24/18 01:12 Dose: 23 mcg/min, 43.12 mls/hr Titration: 03/24/18 01:12 Dose: 23 mcg/min, 43.12 mls/hr Titration: 03/23/18 23:22 Dose: 23 mcg/min, 43.12 mls/hr Titration: 03/23/18 23:16 Dose: 22 mcg/min, 41.25 mls/hr Titration: 03/23/18 23:11 Dose: 21 mcg/min, 39.37 mls/hr Titration: 03/23/18 22:41 Dose: 19 mcg/min, 35.62 mls/hr Titration: 03/23/18 22:33 Dose: 18 mcg/min, 33.75 mls/hr Titration: 03/23/18 22:29 Dose: 17 mcg/min, 31.87 mls/hr Titration: 03/23/18 22:24 Dose: 16 mcg/min, 30 mls/hr Titration: 03/23/18 22:20 Dose: 15 mcg/min, 28.12 mls/hr Titration: 03/23/18 22:15 Dose: 14 mcg/min, 26.25 mls/hr Titration: 03/23/18 22:08 Dose: 13 mcg/min, 24.37 mls/hr Admin: 03/23/18 16:38 Dose: 12 mcg/min, 22.5 mls/hr Titration: 03/23/18 16:34 Dose: 11 mcg/min, 20.62 mls/hr Titration: 03/23/18 14:52 Dose: 11 mcg/min, 20.62 mls/hr Titration: 03/23/18 12:00 Dose: 10 mcg/min, 18.75 mls/hr Titration: 03/23/18 09:03 Dose: 9 mcg/min, 16.87 mls/hr Admin: 03/23/18 01:37 Dose: 8 mcg/min, 15 mls/hr Titration: 03/23/18 01:29 Dose: 8 mcg/min, 15 mls/hr Titration: 03/22/18 23:00 Dose: 8 mcg/min, 15 mls/hr Titration: 03/22/18 22:00 Dose: 9 mcg/min, 16.87 mls/hr Titration: 03/22/18 18:47 Dose: 10 mcg/min, 18.75 mls/hr Titration: 03/22/18 16:00 Dose: 11 mcg/min, 20.62 mls/hr Admin: 03/22/18 12:30 Dose: 12 mcg/min, 22.5 mls/hr Titration: 03/22/18 12:02 Dose: 12 mcg/min, 22.5 mls/hr Admin: 03/22/18 00:55 Dose: 12 mcg/min, 22.5 mls/hr Titration: 03/21/18 23:42 Dose: 12 mcg/min, 22.5 mls/hr Titration: 03/21/18 14:56 Dose: 12 mcg/min, 22.5 mls/hr Titration: 03/21/18 14:46 Dose: 11 mcg/min, 20.62 mls/hr Titration: 03/21/18 13:29 Dose: 10 mcg/min, 18.75 mls/hr Admin: 03/21/18 11:55 Dose: 9 mcg/min, 16.87 mls/hr Titration: 03/21/18 11:46 Dose: 10 mcg/min, 18.75 mls/hr Titration: 03/21/18 11:25 Dose: 11 mcg/min, 20.62 mls/hr Admin: 03/21/18 00:35 Dose: 12 mcg/min, 22.5 mls/hr Titration: 03/20/18 22:55 Dose: 12 mcg/min, 22.5 mls/hr Admin: 03/20/18 11:48 Dose: 12 mcg/min, 22.5 mls/hr Titration: 03/20/18 10:45 Dose: 12 mcg/min, 22.5 mls/hr Admin: 03/19/18 23:38 Dose: 12 mcg/min, 22.5 mls/hr Multivitamins/Minerals 10 ml/Chromium/Copper/Manganese/Seleni/Zn 1 ml/ Amino Ac/ Electrol/Dextrose/Calcium 1,011 mls @ 75 mls/hr IV .BY DURATION [facility] Last Admin: 03/27/18 00:44 Dose: 75 mls/hr Amino Ac/Electrol/Dextrose/Calcium (Clinimix E 15) 1,000 mls @ 75 mls/hr IV .BY DURATION [facility] Last Admin: 03/26/18 11:31 Dose: 75 mls/hr Heparin Sodium (Porcine) 5,000 (units/ Sodium Chloride) 501 mls @ 5 mls/hr IV ASDIRECTED [facility] Insulin Human Lispro (Humalog) 0 unit SUBCUT Q6H [facility]; Protocol Last Admin: 03/27/18 06:03 Dose: Not Given Admin: 03/27/18 00:13 Dose: Not Given Admin: 03/26/18 18:40 Dose: 1 unit Admin: 03/26/18 13:01 Dose: Not Given Admin: 03/26/18 05:01 Dose: 1 unit Admin: 03/26/18 00:17 Dose: Not Given Admin: 03/25/18 18:13 Dose: 1 unit Admin: 03/25/18 11:58 Dose: 1 unit Admin: 03/25/18 05:12 Dose: 2 unit Admin: 03/25/18 00:21 Dose: 2 unit Admin: 03/24/18 18:10 Dose: 1 unit Admin: 03/24/18 12:39 Dose: 1 unit Morphine Sulfate (Morphine) 4 mg IVPUSH Q2H PRN PRN Reason: Pain Last Admin: 03/27/18 02:55 Dose: 4 mg Admin: 03/26/18 23:25 Dose: 4 mg Admin: 03/26/18 15:43 Dose: 4 mg Admin: 03/26/18 04:04 Dose: 4 mg Admin: 03/25/18 20:37 Dose: 4 mg Admin: 03/25/18 14:48 Dose: 4 mg Admin: 03/25/18 10:51 Dose: 4 mg Non-Formulary Medication (Total Parenteral Nutrition, Central) 1,000 ml .XX .Continue Order [facility]; Protocol Nystatin (Mycostatin) 5 ml PO QID [facility] Last Admin: 03/27/18 06:02 Dose: 5 ml Admin: 03/26/18 21:00 Dose: 5 ml Admin: 03/26/18 15:48 Dose: 5 ml Admin: 03/26/18 11:31 Dose: 5 ml Admin: 03/26/18 05:03 Dose: 5 ml Admin: 03/25/18 21:05 Dose: 5 ml Admin: 03/25/18 17:00 Dose: 5 ml Admin: 03/25/18 10:17 Dose: 5 ml Admin: 03/25/18 05:02 Dose: 5 ml Admin: 03/24/18 21:25 Dose: 5 ml Admin: 03/24/18 17:07 Dose: 5 ml Admin: 03/24/18 09:13 Dose: 5 ml Admin: 03/24/18 05:06 Dose: 5 ml Admin: 03/23/18 22:44 Dose: 5 ml Admin: 03/23/18 17:37 Dose: 5 ml Admin: 03/23/18 09:09 Dose: 5 ml Admin: 03/23/18 06:21 Dose: 5 ml Admin: 03/22/18 21:42 Dose: 5 ml Admin: 03/22/18 16:43 Dose: 5 ml Admin: 03/22/18 10:06 Dose: 5 ml Admin: 03/22/18 05:43 Dose: 5 ml Admin: 03/21/18 22:20 Dose: 5 ml Admin: 03/21/18 16:31 Dose: 5 ml Admin: 03/21/18 10:06 Dose: 5 ml Pantoprazole Sodium (Protonix Iv) 40 mg IVPUSH DAILY [facility] Last Admin: 03/27/18 08:50 Dose: 40 mg Admin: 03/26/18 08:58 Dose: 40 mg Admin: 03/25/18 09:47 Dose: 40 mg Admin: 03/24/18 09:09 Dose: 40 mg Admin: 03/23/18 09:09 Dose: 40 mg Admin: 03/22/18 10:06 Dose: 40 mg Admin: 03/21/18 10:06 Dose: 40 mg Admin: 03/20/18 09:39 Dose: 40 mg Admin: 03/19/18 10:47 Dose: 40 mg - Assessment Assessment (Free Text/Narrative):: Doing remarkably well. Still intubated and requiring Levophed to support BP. Less pressor need, however. - Plan Plan (Free Text/Narrative):: Dr. Linn will follow as I am going out of town.
[2018-03-28] MEDS: Insulin Lispro 100 Unit/ML 3 ML KwikPen SUBCUT SCH ×4 (00:01→18:12)
[2018-03-28] MEDS: 1: AA 5%/Calcium/D15W/Lytes 1,000 ML with MVI, Adult with Vitamin K 10 ML, Chromium/Copp IV SCH ×6 (04:30→17:28)
[2018-03-28] MEDS: Aztreonam/Dextrose-Water 1 GM in Premix Bag 1 BAG IV SCH (05:26)
[2018-03-28] MEDS: Nystatin Susp 100,000 Unit/ML 5 ML UD Cup PO SCH ×4 (05:44→21:52)
[2018-03-28] MEDS: Morphine 4 MG/ML Syringe IVPUSH PRN ×3 (07:17→14:33)
[2018-03-28] MEDS: Hydrocortisone Sodium Succinate 100 MG/2 ML SDV IVPUSH SCH ×2 (08:34→20:15)
[2018-03-28] MEDS: Pantoprazole 40 MG Vial IVPUSH SCH (08:34)
--- NOTE | 2018-03-28 09:29 | PCM.PN ---
- General Info Date of Service: 03/28/18 Subjective Update: There were no acute events overnight. Patient did not use sedation or vasopressor support. He is alert and interactive this morning. He is following commands, taking deep breaths and has a respiratory rate of less than 20. Vital signs are all very stable. He has not had any fevers. No complaints of pain. With favorable extubation parameters we did elect to remove the endotracheal tube. He has done very well since extubation and is not currently requiring any supplemental oxygen. Functional Status: Reports: Pain Controlled - Review of Systems General: Reports: Weakness - Patient Data Vitals - Most Recent: Last Vital Signs Temp 36.6 C 03/28/18 07:45 Pulse 70 03/28/18 09:00 Resp 16 03/28/18 09:00 BP 138/48 L 03/28/18 09:00 Pulse Ox 100 03/28/18 09:00 Weight - Most Recent: 69.4 kg I&O - Last 24 Hours: Intake & Output 03/27/18 03/28/18 03/28/18 22:59 06:59 14:59 Intake Total 1178 50 Output Total 1455 715 0 Balance -1455 463 50 Lab Results Last 24 Hours: Laboratory Results - last 24 hr 03/28/18 03/28/18 03/28/18 Range/Units 05:15 05:15 05:15 WBC 20.4 H (4.5-11.0) K/uL RBC 3.63 L (4.30-5.90) M/uL Hgb 10.8 L (12.0-15.0) g/dL Hct 33.7 L (40.0-54.0) % MCV 93 (80-98) fL MCH 30 (27-31) pg MCHC 32 (32-36) % Plt Count 472 H (150-400) K/uL Puncture Site Line ABG pH 7.467 H (7.350-7.450) ABG pCO2 33.6 L (35.0-42.0) mmHg ABG pO2 86.1 (75.0-100.0) mmHg ABG HCO3 24.0 (22.0-26.0) mmol/L ABG Total CO2 21.7 L (23.0-27.0) mmol/L ABG O2 Saturation 96.9 (95.0-98.0) % ABG O2 Content 14.6 L (15.0-23.0) %vol ABG Base Excess 1.0 mm/L ABG Hemoglobin 10.9 L (13.5-18.0) g/dL ABG Oxyhemoglobin 95.0 % ABG Carboxyhemoglobin 1.4 (0.0-1.6) % ABG Methemoglobin 0.6 % O2 Delivery Device Ventilator Oxygen Flow Rate L Sodium 149 H (140-148) mmol/L Potassium 3.7 (3.6-5.2) mmol/L Chloride 115 H (100-108) mmol/L Carbon Dioxide 27 (21-32) mmol/L Anion Gap 10.7 (5.0-14.0) mmol/L BUN 71 H (7-18) mg/dL Creatinine 1.1 (0.8-1.3) mg/dL Est Cr Clr Drug Dosing 54.11 mL/min Estimated GFR (MDRD) > 60 (>60) Glucose 149 H (74-106) mg/dL Calcium 7.9 L (8.5-10.1) mg/dL Med Orders - Current: Current Medications Acetaminophen (Tylenol) 650 mg RECTAL Q4H PRN PRN Reason: Fever Heparin Sodium (Porcine) (Heparin Lock Flush 100 Units/Ml) 500 units FLUSH ASDIRECTED PRN PRN Reason: IV Use Last Admin: 03/22/18 12:28 Dose: 500 units Hydrocortisone Sodium Succinate (Solu-Cortef) 100 mg IVPUSH Q12H [facility] Last Admin: 03/28/18 08:34 Dose: 100 mg Meropenem 1 gm/ Sodium (Chloride) 50 mls @ 100 mls/hr IV Q12H [facility] Last Admin: 03/28/18 07:17 Dose: 100 mls/hr Multivitamins/Minerals 10 ml/Chromium/Copper/Manganese/Seleni/Zn 1 ml/ Amino Ac/ Electrol/Dextrose/Calcium 1,011 mls @ 75 mls/hr IV .BY DURATION [facility] Last Admin: 03/28/18 04:30 Dose: 75 mls/hr Amino Ac/Electrol/Dextrose/Calcium (Clinimix E 15) 1,000 mls @ 75 mls/hr IV .BY DURATION [facility] Last Admin: 03/27/18 14:37 Dose: 75 mls/hr Insulin Human Lispro (Humalog) 0 unit SUBCUT Q6H [facility]; Protocol Last Admin: 03/28/18 05:52 Dose: Not Given Morphine Sulfate (Morphine) 4 mg IVPUSH Q2H PRN PRN Reason: Pain Last Admin: 03/28/18 09:20 Dose: 4 mg Nystatin (Mycostatin) 5 ml PO QID [facility] Last Admin: 03/28/18 05:44 Dose: 5 ml Pantoprazole Sodium (Protonix Iv) 40 mg IVPUSH DAILY [facility] Last Admin: 03/28/18 08:34 Dose: 40 mg Discontinued Medications Dexamethasone (Dexamethasone) Confirm Administered Dose 4 mg .ROUTE .STK-MED ONE Stop: 03/18/18 19:48 Epinephrine HCl (Adrenalin) Confirm Administered Dose 1 mg .ROUTE .STK-MED ONE Stop: 03/18/18 21:07 Fentanyl (Sublimaze) Confirm Administered Dose 250 mcg .ROUTE .STK-MED ONE Stop: 03/18/18 19:48 Furosemide (Lasix) 20 mg IVPUSH ONETIME ONE Stop: 03/23/18 09:46 Last Admin: 03/23/18 10:18 Dose: 20 mg Furosemide (Lasix) 20 mg IVPUSH NOW ONE Stop: 03/25/18 10:01 Last Admin: 03/25/18 10:17 Dose: 20 mg Furosemide (Lasix) 20 mg IVPUSH ONETIME ONE Stop: 03/26/18 09:16 Last Admin: 03/26/18 09:10 Dose: 20 mg Furosemide (Lasix) 20 mg IVPUSH ONETIME ONE Stop: 03/26/18 16:01 Last Admin: 03/26/18 18:28 Dose: Not Given Furosemide (Lasix) 20 mg IVPUSH NOW ONE Stop: 03/27/18 10:01 Last Admin: 03/27/18 10:26 Dose: 20 mg Glycopyrrolate (Robinul) Confirm Administered Dose 1 mg .ROUTE .STK-MED ONE Stop: 03/18/18 19:48 Heparin Sodium (Porcine) (Heparin Sodium) Confirm Administered Dose 5,000 units .ROUTE .STK-MED ONE Stop: 03/18/18 19:51 Heparin Sodium (Porcine) (Heparin Lock Flush 100 Units/Ml) Confirm Administered Dose 500 units .ROUTE .STK-MED ONE Stop: 03/22/18 12:17 Last Admin: 03/22/18 12:30 Dose: Not Given Heparin Sodium (Porcine) (Heparin Sodium) Confirm Administered Dose 5,000 units .ROUTE .STK-MED ONE Stop: 03/24/18 19:52 Last Admin: 03/24/18 20:33 Dose: 5,000 units Hydromorphone HCl (Dilaudid) 0.5 mg IVPUSH ONETIME ONE Stop: 03/18/18 17:43 Last Admin: 03/18/18 17:47 Dose: 0.5 mg Hydromorphone HCl (Dilaudid) 1 mg IVPUSH ONETIME ONE Stop: 03/18/18 18:18 Last Admin: 03/18/18 18:27 Dose: 1 mg Sodium Chloride (Normal Saline) 1,000 mls @ 1,000 mls/hr IV ASDIRECTED [facility] Last Admin: 03/18/18 17:47 Dose: 1,000 mls/hr Sodium Chloride (Normal Saline) 1,000 mls @ 999 mls/hr IV ASDIRECTED [facility] Last Admin: 03/18/18 19:31 Dose: 999 mls/hr Meropenem 500 mg/ Sodium (Chloride) 50 mls @ 100 mls/hr IV ONETIME ONE Stop: 03/18/18 19:09 Last Admin: 03/18/18 19:01 Dose: 100 mls/hr Sodium Chloride (Normal Saline) Confirm Administered Dose 50 mls @ as directed .ROUTE .[facility]-MED ONE Stop: 03/18/18 19:40 Last Admin: 03/18/18 20:19 Dose: Not Given Aztreonam 2 gm/ Sodium (Chloride) 50 mls @ 100 mls/hr IV ONETIME ONE Stop: 03/18/18 20:01 Last Admin: 03/18/18 20:44 Dose: 100 mls/hr Meropenem 500 mg/ Sodium (Chloride) 50 mls @ 100 mls/hr IV ONETIME ONE Stop: 03/18/18 20:00 Last Admin: 03/18/18 19:40 Dose: 100 mls/hr Sodium Chloride (Normal Saline) Confirm Administered Dose 250 mls @ as directed .ROUTE .[facility]-MED ONE Stop: 03/18/18 19:59 Lactated Ringer's (Ringers, Lactated) Confirm Administered Dose 1,000 mls @ as directed .ROUTE .[facility] ONE Stop: 03/18/18 19:59 Sodium Chloride (Normal Saline) Confirm Administered Dose 500 mls @ as directed .ROUTE .[facility] ONE Stop: 03/18/18 19:59 Norepinephrine Bitartrate 8 mg (/ Dextrose/Water) 258 mls @ 3.87 mls/hr IV TITRATE [facility]; Protocol Last Admin: 03/19/18 11:45 Dose: 12 mcg/min, 23.22 mls/hr Lactated Ringer's (Ringers, Lactated) Confirm Administered Dose 1,000 mls @ as directed .ROUTE .[facility] ONE Stop: 03/18/18 21:42 Propofol (Diprivan 100 Ml) 100 mls @ 2.082 mls/hr IV TITRATE [facility]; Protocol Last Titration: 03/27/18 06:35 Dose: 10 mcg/kg/min, 4.164 mls/hr Aztreonam 1 gm/ Sodium (Chloride) 50 mls @ 100 mls/hr IV Q8H [facility] Last Admin: 03/19/18 05:29 Dose: 100 mls/hr Potassium Chloride/Dextrose/Sod Cl (D5 1/2 Ns W/ 20 Meq/L Kcl) 1,000 mls @ 150 mls/hr IV ASDIRECTED [facility] Last Admin: 03/18/18 23:11 Dose: 150 mls/hr Lactated Ringer's (Ringers, Lactated) 1,000 mls @ 500 mls/hr IV ASDIRECTED [facility] Last Admin: 03/19/18 01:23 Dose: 500 mls/hr Vasopressin 100 units/ (Dextrose/Water) 255 mls @ 1.53 mls/hr IV TITRATE [facility]; Protocol Stop: 03/21/18 13:00 Last Titration: 03/21/18 11:03 Dose: 0.02 units/min, 3.06 mls/hr Lactated Ringer's (Ringers, Lactated) 1,000 mls @ 500 mls/hr IV BOLUS [facility] Stop: 03/19/18 05:29 Last Admin: 03/19/18 04:02 Dose: 500 mls/hr Aztreonam/Dextrose 1 gm/ (Premix) 50 mls @ 100 mls/hr IV Q8H [facility] Last Admin: 03/28/18 05:26 Dose: 100 mls/hr Lactated Ringer's (Ringers, Lactated) 1,000 mls @ 500 mls/hr IV .BOLUS ONE Stop: 03/19/18 14:59 Last Admin: 03/19/18 14:27 Dose: 500 mls/hr Lactated Ringer's (Ringers, Lactated) 1,000 mls @ 150 mls/hr IV ASDIRECTED [facility] Last Admin: 03/21/18 11:53 Dose: 150 mls/hr Norepinephrine Bitartrate 8 mg (/ Dextrose/Water) 250 mls @ 3.75 mls/hr IV TITRATE [facility]; Protocol Last Titration: 03/27/18 09:04 Dose: 4 mcg/min, 7.5 mls/hr Magnesium Sulfate 2 gm/ Premix 50 mls @ 25 mls/hr IV Q6H [facility] Stop: 03/20/18 17:59 Last Admin: 03/20/18 16:30 Dose: 25 mls/hr Vancomycin HCl 1.25 gm/ Sodium (Chloride) 250 mls @ 170 mls/hr IV Q24H [facility] Last Admin: 03/22/18 10:06 Dose: 170 mls/hr Vasopressin 40 units/ Dextrose (/Water) 100 mls @ 3 mls/hr IV TITRATE [facility]; Protocol Last Titration: 03/23/18 01:00 Dose: 0 units/min, 0 mls/hr Potassium Chloride 20 meq/ (Premix) 100 mls @ 50 mls/hr IV Q2H [facility] Stop: 03/21/18 22:59 Last Admin: 03/21/18 22:20 Dose: 50 mls/hr Potassium Chloride 20 meq/ (Premix) 100 mls @ 50 mls/hr IV Q2H [facility] Stop: 03/22/18 12:59 Last Admin: 03/22/18 11:30 Dose: 50 mls/hr Potassium Chloride 20 meq/ (Premix) 100 mls @ 50 mls/hr IV Q2H [facility] Stop: 03/22/18 17:29 Last Admin: 03/22/18 16:13 Dose: 50 mls/hr Potassium Chloride (Kcl 20 Meq In Water 100 Ml) 100 mls @ 50 mls/hr IV Q2H [facility] Stop: 03/23/18 01:59 Last Admin: 03/23/18 00:53 Dose: 50 mls/hr Potassium Chloride 40 meq/ (Premix) 100 mls @ 25 mls/hr IV ONETIME ONE Stop: 03/23/18 14:29 Last Admin: 03/23/18 10:31 Dose: 25 mls/hr Vancomycin HCl 1.4 gm/ Sodium (Chloride) 250 mls @ 170 mls/hr IV Q24H [facility] Last Admin: 03/24/18 11:13 Dose: 170 mls/hr Multivitamins/Minerals 10 ml/Chromium/Copper/Manganese/Seleni/Zn 1 ml/ Amino Ac/ Electrol/Dextrose/Calcium 1,011 mls @ 75 mls/hr IV .BY DURATION [facility] Last Admin: 03/25/18 22:34 Dose: 75 mls/hr Amino Ac/Electrol/Dextrose/Calcium (Clinimix E 07/08) 1,000 mls @ 75 mls/hr IV .BY DURATION [facility] Last Admin: 03/25/18 08:11 Dose: 75 mls/hr Vasopressin 100 units/ (Dextrose/Water) 255 mls @ 1.53 mls/hr IV TITRATE [facility]; Protocol Last Titration: 03/25/18 11:51 Dose: 0 units/min, 0 mls/hr Potassium Chloride 20 meq/ (Premix) 100 mls @ 50 mls/hr IV Q2H [facility] Stop: 03/24/18 13:59 Last Admin: 03/24/18 12:13 Dose: 50 mls/hr Heparin Sodium (Porcine) 5,000 (units/ Sodium Chloride) 501 mls @ 5 mls/hr IV ASDIRECTED [facility] Last Admin: 03/27/18 12:50 Dose: 5 mls/hr Meropenem (Merrem) Confirm Administered Dose 500 mg .ROUTE .STK-MED ONE Stop: 03/18/18 19:40 Last Admin: 03/18/18 20:19 Dose: Not Given Neostigmine Methylsulfate (Neostigmine) Confirm Administered Dose 5 mg .ROUTE .STK-MED ONE Stop: 03/18/18 19:48 Non-Formulary Medication (Total Parenteral Nutrition, Central) 1,000 ml .XX .Continue Order [facility]; Protocol Stop: 03/24/18 11:31 Non-Formulary Medication (Total Parenteral Nutrition, Central) 1,000 ml .XX .Continue Order [facility]; Protocol Non-Formulary Medication (Total Parenteral Nutrition, Central) 1,000 ml .XX .Continue Order [facility]; Protocol Ondansetron HCl (Zofran) 4 mg IVPUSH ONETIME ONE Stop: 03/18/18 18:18 Last Admin: 03/18/18 18:27 Dose: 4 mg Ondansetron HCl (Zofran) Confirm Administered Dose 4 mg .ROUTE .STK-MED ONE Stop: 03/18/18 19:48 Phenylephrine HCl (Isaías-Synephrine) Confirm Administered Dose 10 mg .ROUTE .STK- MED ONE Stop: 03/18/18 20:05 Propofol (Diprivan 20 Ml) Confirm Administered Dose 200 mg .ROUTE .STK-MED ONE Stop: 03/18/18 19:48 Rocuronium [place] (Zemuron) Confirm Administered Dose 50 mg .ROUTE .STK-MED ONE Stop: 03/18/18 19:48 Succinylcholine Chloride (Quelicin) Confirm Administered Dose 200 mg .ROUTE .STK -MED ONE Stop: 03/18/18 19:48 Vancomycin HCl (Vancomycin) 1 gm IV .PHARMACY TO DOSE [facility] Stop: 03/21/18 16:00 - Exam Quality Assessment: Supplemental Oxygen, Central Line/PICC, Urine Catheter, DVT Prophylaxis General: Alert, Cooperative, No Acute Distress Lungs: Clear to Auscultation, Normal Respiratory Effort, Decreased Breath Sounds (mild left lung base) Cardiovascular: Regular Rate, Regular Rhythm GI/Abdominal Exam: Soft, No Distention, Abnormal Bowel Sounds (hypoactive) Extremities: No Pedal Edema, Other (edema both arms from forearm to shoulder). No: Increased Warmth Skin: Warm, Dry Psy/Mental Status: Alert, Normal Affect - Problem List Review Problem List Initiated/Reviewed/Updated: Yes - My Orders Last 24 Hours: My Active Orders 03/28/18 05:00 Chest 1V Frontal [CR] DAILY - Plan Plan:: ASSESSMENT AND PLAN SIGMOID COLON PERFORATION RESULTING IN ACUTE ABDOMEN AND SEPTIC SHOCK - status post exploratory laparotomy with partial sigmoid colon resection and creation of a colostomy. He is now off vasopressor support. Likely looking and doing quite well. Vital signs have been stable. -meropenem -Discontinue Azactam -Post operative surgical care per Dr. Adams -morphine as needed for pain SEPTIC SHOCK - secondary to intestinal perforation, solid and liquid stool noted throughout the abdominal cavity at the time of surgery. No longer requiring vasopressor support. Blood pressure and heart rate stable without any supplemental medications. -Antibiotic therapy as above -Discontinue norepinephrine -continue hydrocortisone, start to wean tomorrow ACUTE HYPOXIC RESPIRATORY FAILURE - secondary to septic shock, colon perforation , recent surgery and underlying COPD. he has been successfully extubated and is currently displaying excellent saturations without any supplemental oxygen. -Minimize sedation during the day and re-sedate overnight -Coughing, deep breathing and suctioning as able STEROID-INDUCED HYPERGLYCEMIA - patient has been receiving hydrocortisone for the past several days and is on TPN. Blood sugar control has been good. -Sliding-scale insulin -Continue insulin in TPN COPD - [id number] smoking history but no evidence for exacerbation at this time. -Nebulized albuterol as needed -Vigorous pulmonary toilet during the postoperative period ACUTE KIDNEY INJURY - volume status slowly improving. Kidney function has remained stable. -Twice daily diuresis as tolerated -Closely monitor urine output and renal function during the postoperative period HISTORY OF LUNG AND PROSTATE CARCINOMA - lung cancer felt to be stable, had been receiving treatment for management of prostate carcinoma prior to admission MAINTENANCE ISSUES -DVT prophylaxis; SCUDs -GI prophylaxis; Protonix 40 mg IV daily -Sorto catheter; patient remains critically ill and catheter remains necessary for strict intake and output monitoring -Nutrition; nothing by mouth, continuing TPN DISPOSITION - anticipate discharge to assisted after the hospital stay Stephon Christy M.D.
[2018-03-28] MEDS ORDERED: Central Total Parenteral Nutrition Bag SCH (10:30)
--- NOTE | 2018-03-28 13:02 | PN ---
DATE OF SERVICE: 03/28/2018 The patient has been clinically stable. The patient is presently off all of his drips and will probably be extubated later today. NG output has been negligible, so we will discontinue that. The incision has some dusky areas, but it is beginning to granulate, and I do not think we will have any other problem there as far as that healing up. The ostomy is putting out a small amount of GI content as one would expect. There appeared to be somewhat necrotic near the surface. I suspect deeper down is probably doing okay and as long as we do not have any evidence of septic problems, we will allow that to heal secondarily and otherwise continue the TPN and continue the antibiotics and local wound care. Fredi Linn MD Job #: [id number]
[2018-03-28] MEDS ORDERED: Dimethicone 20%/Zinc Oxide 25% 56 GM Spray Bottle TOP PRN (16:30)
[2018-03-29] MEDS: Insulin Lispro 100 Unit/ML 3 ML KwikPen SUBCUT SCH ×4 (00:17→17:27)
[2018-03-29] MEDS: Morphine 4 MG/ML Syringe IVPUSH PRN ×2 (01:37→07:34)
[2018-03-29] MEDS: Nystatin Susp 100,000 Unit/ML 5 ML UD Cup PO SCH ×4 (06:06→21:51)
[2018-03-29] MEDS: 1: AA 5%/Calcium/D15W/Lytes 1,000 ML with MVI, Adult with Vitamin K 10 ML, Chromium/Copp IV SCH ×6 (06:48→20:12)
[2018-03-29] MEDS: Hydrocortisone Sodium Succinate 100 MG/2 ML SDV IVPUSH SCH (09:20)
--- NOTE | 2018-03-29 10:02 | PCM.PN ---
- General Info Date of Service: 03/29/18 Subjective Update: There were no acute events overnight. The patient did not sleep overnight. He does not endorse any shortness of breath but has a loose sounding cough. He complains of very mild abdominal pain in the area of his incision. Minimal output into the colostomy so far. No fevers overnight. Kidney function has been stable and back to baseline. He remains very weak. Upper extremity edema slowly improving. Functional Status: Reports: Pain Controlled - Review of Systems General: Reports: Weakness. Denies: Fever Gastrointestinal: Reports: Abdominal Pain - Patient Data Vitals - Most Recent: Last Vital Signs Temp 36.6 C 03/29/18 07:20 Pulse 75 03/29/18 07:20 Resp 16 03/29/18 07:20 BP 154/70 H 03/29/18 07:20 Pulse Ox 100 03/29/18 07:20 Weight - Most Recent: 69.4 kg I&O - Last 24 Hours: Intake & Output 03/28/18 03/29/18 03/29/18 22:59 06:59 14:59 Intake Total 950 Output Total 730 610 Balance 220 -610 Med Orders - Current: Current Medications Acetaminophen (Tylenol) 650 mg RECTAL Q4H PRN PRN Reason: Fever Acetaminophen (Tylenol) 650 mg PO Q4H PRN PRN Reason: Pain/Fever Dimethicone/Zinc Oxide (Rash Relief-Zinc Oxide [place]) 0 gm TOP ASDIRECTED PRN PRN Reason: Rash Last Admin: 03/28/18 16:55 Dose: 1 spray Heparin Sodium (Porcine) (Heparin Lock Flush 100 Units/Ml) 500 units FLUSH ASDIRECTED PRN PRN Reason: IV Use Last Admin: 03/28/18 14:38 Dose: 500 units Hydrocortisone Sodium Succinate (Solu-Cortef) 100 mg IVPUSH DAILY [facility] Last Admin: 03/29/18 09:20 Dose: 100 mg Meropenem 1 gm/ Sodium (Chloride) 50 mls @ 100 mls/hr IV Q12H [facility] Stop: 03/29/18 22:00 Last Admin: 03/29/18 07:26 Dose: 100 mls/hr Multivitamins/Minerals 10 ml/Chromium/Copper/Manganese/Seleni/Zn 1 ml/ Amino Ac/ Electrol/Dextrose/Calcium 1,011 mls @ 75 mls/hr IV .BY DURATION [facility] Last Admin: 03/29/18 06:48 Dose: 75 mls/hr Amino Ac/Electrol/Dextrose/Calcium (Clinimix E /15) 1,000 mls @ 75 mls/hr IV .BY DURATION [facility] Last Admin: 03/28/18 17:28 Dose: 75 mls/hr Insulin Human Lispro (Humalog) 0 unit SUBCUT Q6H [facility]; Protocol Last Admin: 03/29/18 06:05 Dose: 1 unit Melatonin (Melatonin) 9 mg PO BEDTIME [facility] Morphine Sulfate (Morphine) 4 mg IVPUSH Q2H PRN PRN Reason: Pain Last Admin: 03/29/18 07:34 Dose: 4 mg Nystatin (Mycostatin) 5 ml PO QID [facility] Last Admin: 03/29/18 09:20 Dose: 5 ml Oxycodone HCl (Oxycodone) 5 mg PO Q4H PRN PRN Reason: Pain (moderate 4-6) Discontinued Medications Dexamethasone (Dexamethasone) Confirm Administered Dose 4 mg .ROUTE .STK-MED ONE Stop: 03/18/18 19:48 Epinephrine HCl (Adrenalin) Confirm Administered Dose 1 mg .ROUTE .STK-MED ONE Stop: 03/18/18 21:07 Fentanyl (Sublimaze) Confirm Administered Dose 250 mcg .ROUTE .STK-MED ONE Stop: 03/18/18 19:48 Furosemide (Lasix) 20 mg IVPUSH ONETIME ONE Stop: 03/23/18 09:46 Last Admin: 03/23/18 10:18 Dose: 20 mg Furosemide (Lasix) 20 mg IVPUSH NOW ONE Stop: 03/25/18 10:01 Last Admin: 03/25/18 10:17 Dose: 20 mg Furosemide (Lasix) 20 mg IVPUSH ONETIME ONE Stop: 03/26/18 09:16 Last Admin: 03/26/18 09:10 Dose: 20 mg Furosemide (Lasix) 20 mg IVPUSH ONETIME ONE Stop: 03/26/18 16:01 Last Admin: 03/26/18 18:28 Dose: Not Given Furosemide (Lasix) 20 mg IVPUSH NOW ONE Stop: 03/27/18 10:01 Last Admin: 03/27/18 10:26 Dose: 20 mg Glycopyrrolate (Robinul) Confirm Administered Dose 1 mg .ROUTE .STK-[facility] ONE Stop: 03/18/18 19:48 Heparin Sodium (Porcine) (Heparin Sodium) Confirm Administered Dose 5,000 units .ROUTE .[facility] ONE Stop: 03/18/18 19:51 Heparin Sodium (Porcine) (Heparin Lock Flush 100 Units/Ml) Confirm Administered Dose 500 units .ROUTE .[facility] ONE Stop: 03/22/18 12:17 Last Admin: 03/22/18 12:30 Dose: Not Given Heparin Sodium (Porcine) (Heparin Sodium) Confirm Administered Dose 5,000 units .ROUTE .[facility] ONE Stop: 03/24/18 19:52 Last Admin: 03/24/18 20:33 Dose: 5,000 units Hydrocortisone Sodium Succinate (Solu-Cortef) 100 mg IVPUSH Q12H [facility] Last Admin: 03/28/18 20:15 Dose: 100 mg Hydromorphone HCl (Dilaudid) 0.5 mg IVPUSH ONETIME ONE Stop: 03/18/18 17:43 Last Admin: 03/18/18 17:47 Dose: 0.5 mg Hydromorphone HCl (Dilaudid) 1 mg IVPUSH ONETIME ONE Stop: 03/18/18 18:18 Last Admin: 03/18/18 18:27 Dose: 1 mg Sodium Chloride (Normal Saline) 1,000 mls @ 1,000 mls/hr IV ASDIRECTED [facility] Last Admin: 03/18/18 17:47 Dose: 1,000 mls/hr Sodium Chloride (Normal Saline) 1,000 mls @ 999 mls/[facility] Last Admin: 03/18/18 19:31 Dose: 999 mls/hr Meropenem 500 mg/ Sodium (Chloride) 50 mls @ 100 mls/hr IV ONETIME ONE Stop: 03/18/18 19:09 Last Admin: 03/18/18 19:01 Dose: 100 mls/hr Sodium Chloride (Normal Saline) Confirm Administered Dose 50 mls @ as directed .ROUTE .[facility] ONE Stop: 03/18/18 19:40 Last Admin: 03/18/18 20:19 Dose: Not Given Aztreonam 2 gm/ Sodium (Chloride) 50 mls @ 100 mls/hr IV ONETIME ONE Stop: 03/18/18 20:01 Last Admin: 03/18/18 20:44 Dose: 100 mls/hr Meropenem 500 mg/ Sodium (Chloride) 50 mls @ 100 mls/hr IV ONETIME ONE Stop: 03/18/18 20:00 Last Admin: 03/18/18 19:40 Dose: 100 mls/hr Sodium Chloride (Normal Saline) Confirm Administered Dose 250 mls @ as directed .ROUTE .[facility] ONE Stop: 03/18/18 19:59 Lactated Ringer's (Ringers, Lactated) Confirm Administered Dose 1,000 mls @ as directed .ROUTE .[facility]-MED ONE Stop: 03/18/18 19:59 Sodium Chloride (Normal Saline) Confirm Administered Dose 500 mls @ as directed .ROUTE .[facility] ONE Stop: 03/18/18 19:59 Norepinephrine Bitartrate 8 mg (/ Dextrose/Water) 258 mls @ 3.87 mls/hr IV TITRATE [facility]; Protocol Last Admin: 03/19/18 11:45 Dose: 12 mcg/min, 23.22 mls/hr Lactated Ringer's (Ringers, Lactated) Confirm Administered Dose 1,000 mls @ as directed .ROUTE .[facility] ONE Stop: 03/18/18 21:42 Propofol (Diprivan 100 Ml) 100 mls @ 2.082 mls/hr IV TITRATE [facility]; Protocol Last Titration: 03/27/18 06:35 Dose: 10 mcg/kg/min, 4.164 mls/hr Aztreonam 1 gm/ Sodium (Chloride) 50 mls @ 100 mls/hr IV Q8H [facility] Last Admin: 03/19/18 05:29 Dose: 100 mls/hr Potassium Chloride/Dextrose/Sod Cl (D5 1/2 Ns W/ 20 Meq/L Kcl) 1,000 mls @ 150 mls/hr IV ASDIRECTED [facility] Last Admin: 03/18/18 23:11 Dose: 150 mls/hr Lactated Ringer's (Ringers, Lactated) 1,000 mls @ 500 mls/hr IV ASDIRECTED [facility] Last Admin: 03/19/18 01:23 Dose: 500 mls/hr Vasopressin 100 units/ (Dextrose/Water) 255 mls @ 1.53 mls/hr IV TITRATE [facility]; Protocol Stop: 03/21/18 13:00 Last Titration: 03/21/18 11:03 Dose: 0.02 units/min, 3.06 mls/hr Lactated Ringer's (Ringers, Lactated) 1,000 mls @ 500 mls/hr IV BOLUS [facility] Stop: 03/19/18 05:29 Last Admin: 03/19/18 04:02 Dose: 500 mls/hr Aztreonam/Dextrose 1 gm/ (Premix) 50 mls @ 100 mls/hr IV Q8H [facility] Last Admin: 03/28/18 05:26 Dose: 100 mls/hr Lactated Ringer's (Ringers, Lactated) 1,000 mls @ 500 mls/hr IV .[facility] ONE Stop: 03/19/18 14:59 Last Admin: 03/19/18 14:27 Dose: 500 mls/hr Lactated Ringer's (Ringers, Lactated) 1,000 mls @ 150 mls/hr IV ASDIRECTED [facility] Last Admin: 03/21/18 11:53 Dose: 150 mls/hr Norepinephrine Bitartrate 8 mg (/ Dextrose/Water) 250 mls @ 3.75 mls/hr IV TITRATE [facility]; Protocol Last Titration: 03/27/18 09:04 Dose: 4 mcg/min, 7.5 mls/hr Magnesium Sulfate 2 gm/ Premix 50 mls @ 25 mls/hr IV Q6H [facility] Stop: 03/20/18 17:59 Last Admin: 03/20/18 16:30 Dose: 25 mls/hr Vancomycin HCl 1.25 gm/ Sodium (Chloride) 250 mls @ 170 mls/hr IV Q24H [facility] Last Admin: 03/22/18 10:06 Dose: 170 mls/hr Vasopressin 40 units/ Dextrose (/Water) 100 mls @ 3 mls/hr IV TITRATE [facility]; Protocol Last Titration: 03/23/18 01:00 Dose: 0 units/min, 0 mls/hr Potassium Chloride 20 meq/ (Premix) 100 mls @ 50 mls/hr IV Q2H [facility] Stop: 03/21/18 22:59 Last Admin: 03/21/18 22:20 Dose: 50 mls/hr Potassium Chloride 20 meq/ (Premix) 100 mls @ 50 mls/hr IV Q2H [facility] Stop: 03/22/18 12:59 Last Admin: 03/22/18 11:30 Dose: 50 mls/hr Potassium Chloride 20 meq/ (Premix) 100 mls @ 50 mls/hr IV Q2H [facility] Stop: 03/22/18 17:29 Last Admin: 03/22/18 16:13 Dose: 50 mls/hr Potassium Chloride (Kcl 20 Meq In Water 100 Ml) 100 mls @ 50 mls/hr IV Q2H [facility] Stop: 03/23/18 01:59 Last Admin: 03/23/18 00:53 Dose: 50 mls/hr Potassium Chloride 40 meq/ (Premix) 100 mls @ 25 mls/hr IV ONETIME ONE Stop: 03/23/18 14:29 Last Admin: 03/23/18 10:31 Dose: 25 mls/hr Vancomycin HCl 1.4 gm/ Sodium (Chloride) 250 mls @ 170 mls/hr IV Q24H [facility] Last Admin: 03/24/18 11:13 Dose: 170 mls/hr Multivitamins/Minerals 10 ml/Chromium/Copper/Manganese/Seleni/Zn 1 ml/ Amino Ac/ Electrol/Dextrose/Calcium 1,011 mls @ 75 mls/hr IV .BY DURATION [facility] Last Admin: 03/25/18 22:34 Dose: 75 mls/hr Amino Ac/Electrol/Dextrose/Calcium (Clinimix E 07/08) 1,000 mls @ 75 mls/hr IV .BY DURATION [facility] Last Admin: 03/25/18 08:11 Dose: 75 mls/hr Vasopressin 100 units/ (Dextrose/Water) 255 mls @ 1.53 mls/hr IV TITRATE [facility]; Protocol Last Titration: 03/25/18 11:51 Dose: 0 units/min, 0 mls/hr Potassium Chloride 20 meq/ (Premix) 100 mls @ 50 mls/hr IV Q2H [facility] Stop: 03/24/18 13:59 Last Admin: 03/24/18 12:13 Dose: 50 mls/hr Heparin Sodium (Porcine) 5,000 (units/ Sodium Chloride) 501 mls @ 5 mls/hr IV ASDIRECTED [facility] Last Admin: 03/27/18 12:50 Dose: 5 mls/hr Meropenem (Merrem) Confirm Administered Dose 500 mg .ROUTE .STK-MED ONE Stop: 03/18/18 19:40 Last Admin: 03/18/18 20:19 Dose: Not Given Neostigmine Methylsulfate (Neostigmine) Confirm Administered Dose 5 mg .ROUTE .STK-MED ONE Stop: 03/18/18 19:48 Non-Formulary Medication (Total Parenteral Nutrition, Central) 1,000 ml .XX .Continue Order [facility]; Protocol Stop: 03/24/18 11:31 Non-Formulary Medication (Total Parenteral Nutrition, Central) 1,000 ml .XX .Continue Order [facility]; Protocol Non-Formulary Medication (Total Parenteral Nutrition, Central) 1,000 ml .XX .Continue Order [facility]; Protocol Non-Formulary Medication (Total Parenteral Nutrition, Central) 1,000 ml .XX .Continue Order [facility]; Protocol Stop: 03/28/18 12:00 Ondansetron HCl (Zofran) 4 mg IVPUSH ONETIME ONE Stop: 03/18/18 18:18 Last Admin: 03/18/18 18:27 Dose: 4 mg Ondansetron HCl (Zofran) Confirm Administered Dose 4 mg .ROUTE .STK-MED ONE Stop: 03/18/18 19:48 Pantoprazole Sodium (Protonix Iv) 40 mg IVPUSH DAILY [facility] Last Admin: 03/28/18 08:34 Dose: 40 mg Phenylephrine HCl (Isaías-Synephrine) Confirm Administered Dose 10 mg .ROUTE .STK- MED ONE Stop: 03/18/18 20:05 Propofol (Diprivan 20 Ml) Confirm Administered Dose 200 mg .ROUTE .STK-MED ONE Stop: 03/18/18 19:48 Rocuronium [place] (Zemuron) Confirm Administered Dose 50 mg .ROUTE .STK-MED ONE Stop: 03/18/18 19:48 Succinylcholine Chloride (Quelicin) Confirm Administered Dose 200 mg .ROUTE .STK -MED ONE Stop: 03/18/18 19:48 Vancomycin HCl (Vancomycin) 1 gm IV .PHARMACY TO DOSE [facility] Stop: 03/21/18 16:00 - Exam Quality Assessment: Supplemental Oxygen, Urine Catheter General: Alert, Oriented, Cooperative, No Acute Distress Lungs: Clear to Auscultation, Normal Respiratory Effort, Rhonchi (mild upper resp rumble ) Cardiovascular: Regular Rate, Regular Rhythm GI/Abdominal Exam: Soft, No Distention, Abnormal Bowel Sounds (hypoactive but improving ) Extremities: No Pedal Edema, Other (dependent edema of both posterior thighs. Swelling of both upper arms ) Skin: Warm, Dry Psy/Mental Status: Alert, Normal Affect - Problem List Review Problem List Initiated/Reviewed/Updated: Yes - My Orders Last 24 Hours: My Active Orders 03/28/18 16:30 Dimethicone/Zinc Oxide [Rash Relief-Zinc Oxide [place]] 0 gm TOP ASDIRECTED PRN 03/29/18 08:46 Acetaminophen [Tylenol] 650 mg PO Q4H PRN 03/29/18 08:47 oxyCODONE 5 mg PO Q4H PRN 03/29/18 09:00 Hydrocortisone Sod Succinate [Solu-CORTEF] 100 mg IVPUSH DAILY 03/29/18 10:00 Up With Assistance [RC] ASDIRECTED 03/29/18 11:30 GLUCOSE POC LAB TO COLLECT [POC] QIDACANDBED 03/29/18 16:30 GLUCOSE POC LAB TO COLLECT [POC] QIDACANDBED 03/29/18 21:00 GLUCOSE POC LAB TO COLLECT [POC] QIDACANDBED Melatonin 9 mg PO BEDTIME 03/30/18 05:00 CBC W/O DIFF,HEMOGRAM [HEME] Timed (1) COMPREHENSIVE METABOLIC PN,CMP [CHEM] Timed 03/30/18 07:30 GLUCOSE POC LAB TO COLLECT [POC] QIDACANDBED 03/30/18 11:30 GLUCOSE POC LAB TO COLLECT [POC] QIDACANDBED 03/30/18 16:30 GLUCOSE POC LAB TO COLLECT [POC] QIDACANDBED 03/30/18 21:00 GLUCOSE POC LAB TO COLLECT [POC] QIDACANDBED 03/31/18 07:30 GLUCOSE POC LAB TO COLLECT [POC] QIDACANDBED 03/31/18 11:30 GLUCOSE POC LAB TO COLLECT [POC] QIDACANDBED 03/31/18 16:30 GLUCOSE POC LAB TO COLLECT [POC] QIDACANDBED 03/31/18 21:00 GLUCOSE POC LAB TO COLLECT [POC] QIDACANDBED 04/01/18 07:30 GLUCOSE POC LAB TO COLLECT [POC] QIDACANDBED 04/01/18 11:30 GLUCOSE POC LAB TO COLLECT [POC] QIDACANDBED 04/01/18 16:30 GLUCOSE POC LAB TO COLLECT [POC] QIDACANDBED 04/01/18 21:00 GLUCOSE POC LAB TO COLLECT [POC] QIDACANDBED 04/02/18 07:30 GLUCOSE POC LAB TO COLLECT [POC] QIDACANDBED 04/02/18 11:30 GLUCOSE POC LAB TO COLLECT [POC] QIDACANDBED 04/02/18 16:30 GLUCOSE POC LAB TO COLLECT [POC] QIDACANDBED 04/02/18 21:00 GLUCOSE POC LAB TO COLLECT [POC] QIDACANDBED 04/03/18 07:30 GLUCOSE POC LAB TO COLLECT [POC] QIDACANDBED 04/03/18 11:30 GLUCOSE POC LAB TO COLLECT [POC] QIDACANDBED 04/03/18 16:30 GLUCOSE POC LAB TO COLLECT [POC] QIDACANDBED 04/03/18 21:00 GLUCOSE POC LAB TO COLLECT [POC] QIDACANDBED 04/04/18 07:30 GLUCOSE POC LAB TO COLLECT [POC] QIDACANDBED 04/04/18 11:30 GLUCOSE POC LAB TO COLLECT [POC] QIDACANDBED 04/04/18 16:30 GLUCOSE POC LAB TO COLLECT [POC] QIDACANDBED 04/04/18 21:00 GLUCOSE POC LAB TO COLLECT [POC] QIDACANDBED 04/05/18 07:30 GLUCOSE POC LAB TO COLLECT [POC] QIDACANDBED 04/05/18 11:30 GLUCOSE POC LAB TO COLLECT [POC] QIDACANDBED 04/05/18 16:30 GLUCOSE POC LAB TO COLLECT [POC] QIDACANDBED 04/05/18 21:00 GLUCOSE POC LAB TO COLLECT [POC] QIDACANDBED 04/06/18 07:30 GLUCOSE POC LAB TO COLLECT [POC] QIDACANDBED 04/06/18 11:30 GLUCOSE POC LAB TO COLLECT [POC] QIDACANDBED - Plan Plan:: ASSESSMENT AND PLAN SIGMOID COLON PERFORATION RESULTING IN ACUTE ABDOMEN AND SEPTIC SHOCK - status post exploratory laparotomy with partial sigmoid colon resection and creation of a colostomy. He is has been off vasopressor support for more than 2 days. Clinically doing very well and diet will be initiated today. -meropenem (discontinue after evening dose) -Post operative surgical care per surgical team -Oxycodone and/or morphine as needed for pain SEPTIC SHOCK - secondary to intestinal perforation, solid and liquid stool noted throughout the abdominal cavity at the time of surgery. No longer requiring vasopressor support. Blood pressure and heart rate stable without any supplemental medications. -Antibiotic therapy as above -continue hydrocortisone, decreased to once daily starting today ACUTE HYPOXIC RESPIRATORY FAILURE - secondary to septic shock, colon perforation , recent surgery and underlying COPD. doing well since extubation and currently on room air. -Coughing, deep breathing and suctioning as able STEROID-INDUCED HYPERGLYCEMIA - patient has been receiving hydrocortisone for the past several days and is on TPN. Blood sugar control has been good. -Sliding-scale insulin -Continue insulin in TPN COPD - [id number] smoking history but no evidence for exacerbation at this time. -Nebulized albuterol as needed -Vigorous pulmonary toilet during the postoperative period ACUTE KIDNEY INJURY - volume status slowly improving. Kidney function has remained stable and is currently at baseline. -Assess volume status daily to see if he needs additional diuresis -Closely monitor urine output and renal function during the postoperative period HISTORY OF LUNG AND PROSTATE CARCINOMA - lung cancer felt to be stable, had been receiving treatment for management of prostate carcinoma prior to admission MAINTENANCE ISSUES -DVT prophylaxis; SCUDs -GI prophylaxis; Protonix 40 mg daily -Sorto catheter; patient remains extremely weak and would benefit from the Sorto catheter remaining at least for the next couple of days. -Nutrition; full liquids starting today, continuing TPN DISPOSITION - anticipate discharge to [facility] after the hospital stay Stephon Christy M.D.
[2018-03-29] MEDS: Melatonin 3 MG Tab PO SCH (21:51)
[2018-03-30] MEDS: Insulin Lispro 100 Unit/ML 3 ML KwikPen SUBCUT SCH ×5 (00:28→22:24)
[2018-03-30] MEDS: Nystatin Susp 100,000 Unit/ML 5 ML UD Cup PO SCH ×4 (05:14→22:22)
[2018-03-30] MEDS ORDERED: predniSONE 20 MG Tab PO SCH (08:00)
--- NOTE | 2018-03-30 08:56 | PN ---
DATE OF SERVICE: 03/30/2018 SUBJECTIVE: His pain is controlled. Vital signs have been stable. Oral intake is 220. He has two EMEKA drains in, which drained 40 and 115. Sorto catheter remains in with an output of 1425. REVIEW OF SYSTEMS: Remainder of review of systems is negative for any pertinent positives and negatives. OBJECTIVE: GENERAL: Kodak Silva is a 77-year-old male. VITAL SIGNS: Temperature is 95.7, pulse is 85, respiratory rate is 18, and blood pressure is 125/76. HEENT: Negative. NECK: Supple. HEART: Regular rate and rhythm. PULMONARY: Lungs are clear. ABDOMEN: Negative. EXTREMITIES: Negative. ASSESSMENT: Exploratory laparotomy with sigmoid colon resection and peritoneal lavage with 4 L of normal saline in colostomy. PLAN: 1. Discontinue Sorto catheter. 2. Discontinue both David-Benito drains. 3. Prednisone 20 mg p.o. this a.m. with breakfast. 4. Further tapering of prednisone per Internal Medicine. Rula Morley PA-C /[id number]
[2018-03-30] MEDS: Pantoprazole 40 MG Tab.CR PO SCH (08:59)
[2018-03-30] MEDS: Acetaminophen 325 MG Tab PO PRN (11:56)
--- NOTE | 2018-03-30 12:59 | PCM.PN ---
- General Info Date of Service: 03/30/18 Subjective Update: Mr. Silva has been stable since yesterday, reports pain control has been adequate. Remains very weak and continues to have some upper extremity edema especially on the right. Respiratory status has been stable and he denies significant shortness of breath. Functional Status: Reports: Pain Controlled - Review of Systems General: Reports: Weakness. Denies: Fever, Chills Pulmonary: Reports: No Symptoms Cardiovascular: Reports: No Symptoms Gastrointestinal: Reports: No Symptoms - Patient Data Vitals - Most Recent: Last Vital Signs Temp 95.2 F L 03/30/18 07:00 Pulse 94 03/30/18 07:00 Resp 18 03/30/18 07:00 BP 129/65 03/30/18 07:00 Pulse Ox 91 L 03/30/18 07:00 Weight - Most Recent: 153 lb 0.013 oz I&O - Last 24 Hours: Intake & Output 03/29/18 03/30/18 03/30/18 22:59 06:59 14:59 Intake Total 1806 761 Output Total 555 775 Balance 1251 -14 Lab Results Last 24 Hours: Laboratory Results - last 24 hr 03/30/18 03/30/18 Range/Units 06:24 06:24 WBC 22.3 H (4.5-11.0) K/uL RBC 3.91 L (4.30-5.90) M/uL Hgb 12.3 (12.0-15.0) g/dL Hct 36.2 L (40.0-54.0) % MCV 93 (80-98) fL MCH 32 H (27-31) pg MCHC 34 (32-36) % Plt Count (150-400) K/uL Sodium 152 H (140-148) mmol/L Potassium 4.2 (3.6-5.2) mmol/L Chloride 117 H (100-108) mmol/L Carbon Dioxide 26 (21-32) mmol/L Anion Gap 13.2 (5.0-14.0) mmol/L BUN 62 H (7-18) mg/dL Creatinine 1.0 (0.8-1.3) mg/dL Est Cr Clr Drug Dosing 59.53 mL/min Estimated GFR (MDRD) > 60 (>60) Glucose 94 (74-106) mg/dL Calcium 8.3 L (8.5-10.1) mg/dL Total Bilirubin 0.5 D (0.2-1.0) mg/dL AST 55 H (15-37) U/L ALT 104 H (12-78) U/L Alkaline Phosphatase 125 H (46-116) U/L Total Protein 4.7 L (6.4-8.2) g/dL Albumin 1.5 L (3.4-5.0) g/dL Globulin 3.2 (2.3-3.5) g/dL Albumin/Globulin Ratio 0.5 L (1.2-2.2) Med Orders - Current: Current Medications Acetaminophen (Tylenol) 650 mg RECTAL Q4H PRN PRN Reason: Fever Acetaminophen (Tylenol) 650 mg PO Q4H PRN PRN Reason: Pain/Fever Last Admin: 03/30/18 11:56 Dose: 650 mg Dimethicone/Zinc Oxide (Rash Relief-Zinc Oxide [place]) 0 gm TOP ASDIRECTED PRN PRN Reason: Rash Last Admin: 03/28/18 16:55 Dose: 1 spray Furosemide (Lasix) 20 mg IVPUSH NOW ONE Stop: 03/30/18 12:55 Heparin Sodium (Porcine) (Heparin Lock Flush 100 Units/Ml) 500 units FLUSH ASDIRECTED PRN PRN Reason: IV Use Last Admin: 03/28/18 14:38 Dose: 500 units Sodium Chloride (Normal Saline) 1,000 mls @ 50 mls/hr IV ASDIRECTED [facility] Insulin Human Lispro (Humalog) 0 unit SUBCUT Q6H [facility]; Protocol Last Admin: 03/30/18 08:44 Dose: Not Given Melatonin (Melatonin) 9 mg PO BEDTIME [facility] Last Admin: 03/29/18 21:51 Dose: 9 mg Morphine Sulfate (Morphine) 4 mg IVPUSH Q2H PRN PRN Reason: Pain Last Admin: 03/29/18 07:34 Dose: 4 mg Nystatin (Mycostatin) 5 ml PO QID [facility] Last Admin: 03/30/18 11:55 Dose: Not Given Oxycodone HCl (Oxycodone) 5 mg PO Q4H PRN PRN Reason: Pain (moderate 4-6) Pantoprazole Sodium (Protonix) 40 mg PO ACBREAKFAST [facility] Last Admin: 03/30/18 08:59 Dose: 40 mg Discontinued Medications Dexamethasone (Dexamethasone) Confirm Administered Dose 4 mg .ROUTE .[facility]-MED ONE Stop: 03/18/18 19:48 Epinephrine HCl (Adrenalin) Confirm Administered Dose 1 mg .ROUTE .[facility]-MED ONE Stop: 03/18/18 21:07 Fentanyl (Sublimaze) Confirm Administered Dose 250 mcg .ROUTE .[facility] ONE Stop: 03/18/18 19:48 Furosemide (Lasix) 20 mg IVPUSH ONETIME ONE Stop: 03/23/18 09:46 Last Admin: 03/23/18 10:18 Dose: 20 mg Furosemide (Lasix) 20 mg IVPUSH NOW ONE Stop: 03/25/18 10:01 Last Admin: 03/25/18 10:17 Dose: 20 mg Furosemide (Lasix) 20 mg IVPUSH ONETIME ONE Stop: 03/26/18 09:16 Last Admin: 03/26/18 09:10 Dose: 20 mg Furosemide (Lasix) 20 mg IVPUSH ONETIME ONE Stop: 03/26/18 16:01 Last Admin: 03/26/18 18:28 Dose: Not Given Furosemide (Lasix) 20 mg IVPUSH NOW ONE Stop: 03/27/18 10:01 Last Admin: 03/27/18 10:26 Dose: 20 mg Glycopyrrolate (Robinul) Confirm Administered Dose 1 mg .ROUTE .[facility]-MED ONE Stop: 03/18/18 19:48 Heparin Sodium (Porcine) (Heparin Sodium) Confirm Administered Dose 5,000 units .ROUTE .[facility]-MED ONE Stop: 03/18/18 19:51 Heparin Sodium (Porcine) (Heparin Lock Flush 100 Units/Ml) Confirm Administered Dose 500 units .ROUTE .[facility]-MED ONE Stop: 03/22/18 12:17 Last Admin: 03/22/18 12:30 Dose: Not Given Heparin Sodium (Porcine) (Heparin Sodium) Confirm Administered Dose 5,000 units .ROUTE .[facility]-MED ONE Stop: 03/24/18 19:52 Last Admin: 03/24/18 20:33 Dose: 5,000 units Hydrocortisone Sodium Succinate (Solu-Cortef) 100 mg IVPUSH Q12H [facility] Last Admin: 03/28/18 20:15 Dose: 100 mg Hydrocortisone Sodium Succinate (Solu-Cortef) 100 mg IVPUSH DAILY [facility] Last Admin: 03/29/18 09:20 Dose: 100 mg Hydromorphone HCl (Dilaudid) 0.5 mg IVPUSH ONETIME ONE Stop: 03/18/18 17:43 Last Admin: 03/18/18 17:47 Dose: 0.5 mg Hydromorphone HCl (Dilaudid) 1 mg IVPUSH ONETIME ONE Stop: 03/18/18 18:18 Last Admin: 03/18/18 18:27 Dose: 1 mg Sodium Chloride (Normal Saline) 1,000 mls @ 1,000 mls/hr IV ASDIRECTED [facility] Last Admin: 03/18/18 17:47 Dose: 1,000 mls/hr Sodium Chloride (Normal Saline) 1,000 mls @ 999 mls/hr IV ASDIRECTED [facility] Last Admin: 03/18/18 19:31 Dose: 999 mls/hr Meropenem 500 mg/ Sodium (Chloride) 50 mls @ 100 mls/hr IV ONETIME ONE Stop: 03/18/18 19:09 Last Admin: 03/18/18 19:01 Dose: 100 mls/hr Sodium Chloride (Normal Saline) Confirm Administered Dose 50 mls @ as directed .ROUTE .[facility]-MED ONE Stop: 03/18/18 19:40 Last Admin: 03/18/18 20:19 Dose: Not Given Aztreonam 2 gm/ Sodium (Chloride) 50 mls @ 100 mls/hr IV ONETIME ONE Stop: 03/18/18 20:01 Last Admin: 03/18/18 20:44 Dose: 100 mls/hr Meropenem 500 mg/ Sodium (Chloride) 50 mls @ 100 mls/hr IV ONETIME ONE Stop: 03/18/18 20:00 Last Admin: 03/18/18 19:40 Dose: 100 mls/hr Sodium Chloride (Normal Saline) Confirm Administered Dose 250 mls @ as directed .ROUTE .[facility]-MED ONE Stop: 03/18/18 19:59 Lactated Ringer's (Ringers, Lactated) Confirm Administered Dose 1,000 mls @ as directed .ROUTE .[facility]-MED ONE Stop: 03/18/18 19:59 Sodium Chloride (Normal Saline) Confirm Administered Dose 500 mls @ as directed .ROUTE .[facility]-MED ONE Stop: 03/18/18 19:59 Norepinephrine Bitartrate 8 mg (/ Dextrose/Water) 258 mls @ 3.87 mls/hr IV TITRATE [facility]; Protocol Last Admin: 03/19/18 11:45 Dose: 12 mcg/min, 23.22 mls/hr Lactated Ringer's (Ringers, Lactated) Confirm Administered Dose 1,000 mls @ as directed .ROUTE .[facility]-MED ONE Stop: 03/18/18 21:42 Propofol (Diprivan 100 Ml) 100 mls @ 2.082 mls/hr IV TITRATE [facility]; Protocol Last Titration: 03/27/18 06:35 Dose: 10 mcg/kg/min, 4.164 mls/hr Aztreonam 1 gm/ Sodium (Chloride) 50 mls @ 100 mls/hr IV Q8H [facility] Last Admin: 03/19/18 05:29 Dose: 100 mls/hr Potassium Chloride/Dextrose/Sod Cl (D5 1/2 Ns W/ 20 Meq/L Kcl) 1,000 mls @ 150 mls/hr IV ASDIRECTED [facility] Last Admin: 03/18/18 23:11 Dose: 150 mls/hr Meropenem 1 gm/ Sodium (Chloride) 50 mls @ 100 mls/hr IV Q12H [facility] Stop: 03/29/18 22:00 Last Admin: 03/29/18 20:10 Dose: 100 mls/hr Lactated Ringer's (Ringers, Lactated) 1,000 mls @ 500 mls/hr IV ASDIRECTED [facility] Last Admin: 03/19/18 01:23 Dose: 500 mls/hr Vasopressin 100 units/ (Dextrose/Water) 255 mls @ 1.53 mls/hr IV TITRATE [facility]; Protocol Stop: 03/21/18 13:00 Last Titration: 03/21/18 11:03 Dose: 0.02 units/min, 3.06 mls/hr Lactated Ringer's (Ringers, Lactated) 1,000 mls @ 500 mls/hr IV BOLUS [facility] Stop: 03/19/18 05:29 Last Admin: 03/19/18 04:02 Dose: 500 mls/hr Aztreonam/Dextrose 1 gm/ (Premix) 50 mls @ 100 mls/hr IV Q8H [facility] Last Admin: 03/28/18 05:26 Dose: 100 mls/hr Lactated Ringer's (Ringers, Lactated) 1,000 mls @ 500 mls/hr IV .BOLUS ONE Stop: 03/19/18 14:59 Last Admin: 03/19/18 14:27 Dose: 500 mls/hr Lactated Ringer's (Ringers, Lactated) 1,000 mls @ 150 mls/hr IV ASDIRECTED [facility] Last Admin: 03/21/18 11:53 Dose: 150 mls/hr Norepinephrine Bitartrate 8 mg (/ Dextrose/Water) 250 mls @ 3.75 mls/hr IV TITRATE [facility]; Protocol Last Titration: 03/27/18 09:04 Dose: 4 mcg/min, 7.5 mls/hr Magnesium Sulfate 2 gm/ Premix 50 mls @ 25 mls/hr IV Q6H [facility] Stop: 03/20/18 17:59 Last Admin: 03/20/18 16:30 Dose: 25 mls/hr Vancomycin HCl 1.25 gm/ Sodium (Chloride) 250 mls @ 170 mls/hr IV Q24H [facility] Last Admin: 03/22/18 10:06 Dose: 170 mls/hr Vasopressin 40 units/ Dextrose (/Water) 100 mls @ 3 mls/hr IV TITRATE [facility]; Protocol Last Titration: 03/23/18 01:00 Dose: 0 units/min, 0 mls/hr Potassium Chloride 20 meq/ (Premix) 100 mls @ 50 mls/hr IV Q2H [facility] Stop: 03/21/18 22:59 Last Admin: 03/21/18 22:20 Dose: 50 mls/hr Potassium Chloride 20 meq/ (Premix) 100 mls @ 50 mls/hr IV Q2H [facility] Stop: 03/22/18 12:59 Last Admin: 03/22/18 11:30 Dose: 50 mls/hr Potassium Chloride 20 meq/ (Premix) 100 mls @ 50 mls/hr IV Q2H [facility] Stop: 03/22/18 17:29 Last Admin: 03/22/18 16:13 Dose: 50 mls/hr Potassium Chloride (Kcl 20 Meq In Water 100 Ml) 100 mls @ 50 mls/hr IV Q2H [facility] Stop: 03/23/18 01:59 Last Admin: 03/23/18 00:53 Dose: 50 mls/hr Potassium Chloride 40 meq/ (Premix) 100 mls @ 25 mls/hr IV ONETIME ONE Stop: 03/23/18 14:29 Last Admin: 03/23/18 10:31 Dose: 25 mls/hr Vancomycin HCl 1.4 gm/ Sodium (Chloride) 250 mls @ 170 mls/hr IV Q24H [facility] Last Admin: 03/24/18 11:13 Dose: 170 mls/hr Multivitamins/Minerals 10 ml/Chromium/Copper/Manganese/Seleni/Zn 1 ml/ Amino Ac/ Electrol/Dextrose/Calcium 1,011 mls @ 75 mls/hr IV .BY DURATION [facility] Last Admin: 03/25/18 22:34 Dose: 75 mls/hr Amino Ac/Electrol/Dextrose/Calcium (Clinimix E 5/15) 1,000 mls @ 75 mls/hr IV .BY DURATION [facility] Last Admin: 03/25/18 08:11 Dose: 75 mls/hr Vasopressin 100 units/ (Dextrose/Water) 255 mls @ 1.53 mls/hr IV TITRATE [facility]; Protocol Last Titration: 03/25/18 11:51 Dose: 0 units/min, 0 mls/hr Potassium Chloride 20 meq/ (Premix) 100 mls @ 50 mls/hr IV Q2H [facility] Stop: 03/24/18 13:59 Last Admin: 03/24/18 12:13 Dose: 50 mls/hr Multivitamins/Minerals 10 ml/Chromium/Copper/Manganese/Seleni/Zn 1 ml/ Amino Ac/ Electrol/Dextrose/Calcium 1,011 mls @ 75 mls/hr IV .BY DURATION [facility] Last Admin: 03/29/18 06:48 Dose: 75 mls/hr Amino Ac/Electrol/Dextrose/Calcium (Clinimix E 5/15) 1,000 mls @ 75 mls/hr IV .BY DURATION [facility] Last Admin: 03/29/18 20:12 Dose: 75 mls/hr Heparin Sodium (Porcine) 5,000 (units/ Sodium Chloride) 501 mls @ 5 mls/hr IV ASDIRECTED [facility] Last Admin: 03/27/18 12:50 Dose: 5 mls/hr Insulin Human Lispro (Humalog) 0 unit SUBCUT Q6H [facility]; Protocol Last Admin: 03/30/18 00:28 Dose: Not Given Meropenem (Merrem) Confirm Administered Dose 500 mg .ROUTE .STK-MED ONE Stop: 03/18/18 19:40 Last Admin: 03/18/18 20:19 Dose: Not Given Neostigmine Methylsulfate (Neostigmine) Confirm Administered Dose 5 mg .ROUTE .STK-MED ONE Stop: 03/18/18 19:48 Non-Formulary Medication (Total Parenteral Nutrition, Central) 1,000 ml .XX .Continue Order [facility]; Protocol Stop: 03/24/18 11:31 Non-Formulary Medication (Total Parenteral Nutrition, Central) 1,000 ml .XX .Continue Order [facility]; Protocol Non-Formulary Medication (Total Parenteral Nutrition, Central) 1,000 ml .XX .Continue Order [facility]; Protocol Non-Formulary Medication (Total Parenteral Nutrition, Central) 1,000 ml .XX .Continue Order [facility]; Protocol Stop: 03/28/18 12:00 Ondansetron HCl (Zofran) 4 mg IVPUSH ONETIME ONE Stop: 03/18/18 18:18 Last Admin: 03/18/18 18:27 Dose: 4 mg Ondansetron HCl (Zofran) Confirm Administered Dose 4 mg .ROUTE .STK-MED ONE Stop: 03/18/18 19:48 Pantoprazole Sodium (Protonix Iv) 40 mg IVPUSH DAILY [facility] Last Admin: 03/28/18 08:34 Dose: 40 mg Phenylephrine HCl (Isaías-Synephrine) Confirm Administered Dose 10 mg .ROUTE .STK- MED ONE Stop: 03/18/18 20:05 Prednisone (Prednisone) 20 mg PO WITHBREAKFAST [facility] Last Admin: 03/30/18 08:59 Dose: 20 mg Propofol (Diprivan 20 Ml) Confirm Administered Dose 200 mg .ROUTE .STK-MED ONE Stop: 03/18/18 19:48 Rocuronium [place] (Zemuron) Confirm Administered Dose 50 mg .ROUTE .STK-MED ONE Stop: 03/18/18 19:48 Succinylcholine Chloride (Quelicin) Confirm Administered Dose 200 mg .ROUTE .STK -MED ONE Stop: 03/18/18 19:48 Vancomycin HCl (Vancomycin) 1 gm IV .PHARMACY TO DOSE [facility] Stop: 03/21/18 16:00 - Exam Quality Assessment: Urine Catheter, DVT Prophylaxis General: Alert, Oriented, Cooperative, No Acute Distress Lungs: Clear to Auscultation, Normal Respiratory Effort Cardiovascular: Regular Rate, Regular Rhythm, No Murmurs GI/Abdominal Exam: Soft, Non-Tender, No Organomegaly, No Distention Extremities: Non-Tender, Pedal Edema - Problem List Review Problem List Initiated/Reviewed/Updated: Yes - My Orders Last 24 Hours: My Active Orders 03/30/18 12:54 Furosemide [Lasix] 20 mg IVPUSH NOW ONE 03/30/18 13:00 Sodium Chloride 0.9% @ 50 MLS/HR(1000ml) Sodium Chloride 0.9% [Normal Saline] 1 ,000 ml IV ASDIRECTED - Plan Plan:: ASSESSMENT AND PLAN SIGMOID COLON PERFORATION RESULTING IN ACUTE ABDOMEN AND SEPTIC SHOCK - status post exploratory laparotomy with partial sigmoid colon resection and creation of a colostomy. Stable and doing well over the past few days. -Post operative surgical care per surgical team -Oxycodone and/or morphine as needed for pain SEPTIC SHOCK - resolved ACUTE HYPOXIC RESPIRATORY FAILURE - secondary to septic shock, colon perforation , recent surgery and underlying COPD. doing well since extubation and currently on room air. -Coughing, deep breathing and suctioning as able STEROID-INDUCED HYPERGLYCEMIA - glucose levels improved over the past day -Sliding-scale insulin -Continue insulin in TPN COPD - [id number] smoking history but no evidence for exacerbation at this time. -Nebulized albuterol as needed -Vigorous pulmonary toilet during the postoperative period ACUTE KIDNEY INJURY -resolved, renal function is back to baseline -Furosemide 40 mg IV now -Assess volume status daily to see if he needs additional diuresis -Closely monitor urine output and renal function during the postoperative period HISTORY OF LUNG AND PROSTATE CARCINOMA - lung cancer felt to be stable, had been receiving treatment for management of prostate carcinoma prior to admission MAINTENANCE ISSUES -DVT prophylaxis; SCUDs -GI prophylaxis; Protonix 40 mg daily -Sorto catheter; removed today -Nutrition; full liquids with nutritional supplements DISPOSITION - anticipate discharge to [facility] after the hospital stay
[2018-03-30] MEDS ORDERED: Sodium Chloride 0.9% 1,000 ML IV SCH (13:00)
[2018-03-30] MEDS ORDERED: Furosemide 20 MG/2 ML VIAL IVPUSH ONE (13:10)
[2018-03-30] MEDS: Hydrocortisone Sodium Succinate 100 MG/2 ML SDV IVPUSH SCH (13:39)
--- NOTE | 2018-03-30 13:44 | PN ---
DATE OF SERVICE: 03/29/2018 The patient has been afebrile with stable vital signs. He has been extubated and appears to be comfortable. However, from a Respiratory standpoint, he continues to have some bowel activity via the colostomy. I think we can start a full-liquid diet today and otherwise continue management along with Dr. Christy and the Wound Care. Fredi Linn MD Job #: [id number]
[2018-03-30] MEDS: Melatonin 3 MG Tab PO SCH (22:22)
[2018-03-31] MEDS: Insulin Lispro 100 Unit/ML 3 ML KwikPen SUBCUT SCH ×3 (03:52→13:17)
[2018-03-31] MEDS: Nystatin Susp 100,000 Unit/ML 5 ML UD Cup PO SCH ×4 (05:26→21:24)
[2018-03-31] MEDS: Pantoprazole 40 MG Tab.CR PO SCH (08:33)
[2018-03-31] MEDS: Dextrose 5%-0.45% NaCl 1,000 ML IV SCH ×2 (08:40→23:53)
[2018-03-31] MEDS: oxyCODONE 5 MG Tab PO PRN (08:49)
[2018-03-31] MEDS: Acetaminophen 325 MG Tab PO PRN (10:32)
[2018-03-31] MEDS ORDERED: Furosemide 20 MG/2 ML VIAL IVPUSH ONE (11:54)
--- NOTE | 2018-03-31 12:12 | PCM.PN ---
- General Info Date of Service: 03/31/18 Subjective Update: Mr. Silva has been stable since yesterday and continues to show very slow improvement. Oral intake is still marginal although he did get for supplement seen yesterday. Has been able to get up and sit in the chair for short periods of time. Respiratory status remains fairly stable and he denies any increase in shortness of breath. White blood cell count remains elevated, likely secondary to recent glucocorticoid therapy. Functional Status: Reports: Pain Controlled, Urinating - Review of Systems General: Reports: Weakness. Denies: Fever, Chills Pulmonary: Reports: Shortness of Breath, Wheezing. Denies: Cough, Sputum, Hemoptysis Cardiovascular: Reports: Dyspnea on Exertion, Edema. Denies: Chest Pain, Palpitations, Orthopnea, PND Gastrointestinal: Reports: Abdominal Pain, Difficulty Swallowing. Denies: Diarrhea, Nausea, Vomiting - Patient Data Vitals - Most Recent: Last Vital Signs Temp 96.1 F 03/31/18 11:13 Pulse 82 03/31/18 11:13 Resp 16 03/31/18 07:00 BP 131/61 03/31/18 11:13 Pulse Ox 90 L 03/31/18 11:13 Weight - Most Recent: 153 lb 0.013 oz I&O - Last 24 Hours: Intake & Output 03/30/18 03/31/18 03/31/18 22:59 06:59 14:59 Intake Total 110 797 100 Output Total 25 175 Balance 85 622 100 Med Orders - Current: Current Medications Acetaminophen (Tylenol) 650 mg RECTAL Q4H PRN PRN Reason: Fever Acetaminophen (Tylenol) 650 mg PO Q4H PRN PRN Reason: Pain/Fever Last Admin: 03/31/18 10:32 Dose: 650 mg Dimethicone/Zinc Oxide (Rash Relief-Zinc Oxide Vestal) 0 gm TOP ASDIRECTED PRN PRN Reason: Rash Last Admin: 03/28/18 16:55 Dose: 1 spray Furosemide (Lasix) 20 mg IVPUSH NOW ONE Stop: 03/31/18 11:55 Heparin Sodium (Porcine) (Heparin Lock Flush 100 Units/Ml) 500 units FLUSH ASDIRECTED PRN PRN Reason: IV Use Last Admin: 03/28/18 14:38 Dose: 500 units Dextrose/Sodium Chloride (Dextrose 5%-1/2 Ns) 1,000 mls @ 75 mls/hr IV ASDIRECTED [facility] Last Admin: 03/31/18 08:40 Dose: 75 mls/hr Albumin Human (Albumin 25%) 25 gm in 100 mls @ 25 mls/hr IV Q24H [facility] Stop: 04/02/18 12:59 Last Admin: 03/31/18 08:41 Dose: 25 mls/hr Melatonin (Melatonin) 9 mg PO BEDTIME [facility] Last Admin: 03/30/18 22:22 Dose: 9 mg Nystatin (Mycostatin) 5 ml PO QID [facility] Last Admin: 03/31/18 10:33 Dose: 5 ml Oxycodone HCl (Oxycodone) 5 mg PO Q4H PRN PRN Reason: Pain (moderate 4-6) Last Admin: 03/31/18 08:49 Dose: 5 mg Pantoprazole Sodium (Protonix) 40 mg PO ACBREAKFAST [facility] Last Admin: 03/31/18 08:33 Dose: 40 mg Discontinued Medications Dexamethasone (Dexamethasone) Confirm Administered Dose 4 mg .ROUTE .STK-MED ONE Stop: 03/18/18 19:48 Epinephrine HCl (Adrenalin) Confirm Administered Dose 1 mg .ROUTE .STK-MED ONE Stop: 03/18/18 21:07 Fentanyl (Sublimaze) Confirm Administered Dose 250 mcg .ROUTE .STK-MED ONE Stop: 03/18/18 19:48 Furosemide (Lasix) 20 mg IVPUSH ONETIME ONE Stop: 03/23/18 09:46 Last Admin: 03/23/18 10:18 Dose: 20 mg Furosemide (Lasix) 20 mg IVPUSH NOW ONE Stop: 03/25/18 10:01 Last Admin: 03/25/18 10:17 Dose: 20 mg Furosemide (Lasix) 20 mg IVPUSH ONETIME ONE Stop: 03/26/18 09:16 Last Admin: 03/26/18 09:10 Dose: 20 mg Furosemide (Lasix) 20 mg IVPUSH ONETIME ONE Stop: 03/26/18 16:01 Last Admin: 03/26/18 18:28 Dose: Not Given Furosemide (Lasix) 20 mg IVPUSH NOW ONE Stop: 03/27/18 10:01 Last Admin: 03/27/18 10:26 Dose: 20 mg Furosemide (Lasix) 20 mg IVPUSH ONETIME ONE Stop: 03/30/18 13:11 Last Admin: 03/30/18 13:36 Dose: 20 mg Glycopyrrolate (Robinul) Confirm Administered Dose 1 mg .ROUTE .[facility] ONE Stop: 03/18/18 19:48 Heparin Sodium (Porcine) (Heparin Sodium) Confirm Administered Dose 5,000 units .[address] .[facility] ONE Stop: 03/18/18 19:51 Heparin Sodium (Porcine) (Heparin Lock Flush 100 Units/Ml) Confirm Administered Dose 500 units .[address]TE .[facility] ONE Stop: 03/22/18 12:17 Last Admin: 03/22/18 12:30 Dose: Not Given Heparin Sodium (Porcine) (Heparin Sodium) Confirm Administered Dose 5,000 units .[address]OUTE .[facility] ONE Stop: 03/24/18 19:52 Last Admin: 03/24/18 20:33 Dose: 5,000 units Hydrocortisone Sodium Succinate (Solu-Cortef) 100 mg IVPUSH Q12H [facility] Last Admin: 03/28/18 20:15 Dose: 100 mg Hydrocortisone Sodium Succinate (Solu-Cortef) 100 mg IVPUSH DAILY [facility] Last Admin: 03/30/18 13:39 Dose: Not Given Hydromorphone HCl (Dilaudid) 0.5 mg IVPUSH ONETIME ONE Stop: 03/18/18 17:43 Last Admin: 03/18/18 17:47 Dose: 0.5 mg Hydromorphone HCl (Dilaudid) 1 mg IVPUSH ONETIME ONE Stop: 03/18/18 18:18 Last Admin: 03/18/18 18:27 Dose: 1 mg Sodium Chloride (Normal Saline) 1,000 mls @ 1,000 mls/hr IV ASDIRECTED [facility] Last Admin: 03/18/18 17:47 Dose: 1,000 mls/hr Sodium Chloride (Normal Saline) 1,000 mls @ 999 mls/hr IV ASDIRECTED [facility] Last Admin: 03/18/18 19:31 Dose: 999 mls/hr Meropenem 500 mg/ Sodium (Chloride) 50 mls @ 100 mls/hr IV ONETIME ONE Stop: 03/18/18 19:09 Last Admin: 03/18/18 19:01 Dose: 100 mls/hr Sodium Chloride (Normal Saline) Confirm Administered Dose 50 mls @ as directed .ROUTE .[facility] ONE Stop: 03/18/18 19:40 Last Admin: 03/18/18 20:19 Dose: Not Given Aztreonam 2 gm/ Sodium (Chloride) 50 mls @ 100 mls/hr IV ONETIME ONE Stop: 03/18/18 20:01 Last Admin: 03/18/18 20:44 Dose: 100 mls/hr Meropenem 500 mg/ Sodium (Chloride) 50 mls @ 100 mls/hr IV ONETIME ONE Stop: 03/18/18 20:00 Last Admin: 03/18/18 19:40 Dose: 100 mls/hr Sodium Chloride (Normal Saline) Confirm Administered Dose 250 mls @ as directed .ROUTE .[facility] ONE Stop: 03/18/18 19:59 Lactated Ringer's (Ringers, Lactated) Confirm Administered Dose 1,000 mls @ as directed .ROUTE .[facility] ONE Stop: 03/18/18 19:59 Sodium Chloride (Normal Saline) Confirm Administered Dose 500 mls @ as directed .ROUTE .[facility] ONE Stop: 03/18/18 19:59 Norepinephrine Bitartrate 8 mg (/ Dextrose/Water) 258 mls @ 3.87 mls/hr IV TITRATE [facility]; Protocol Last Admin: 03/19/18 11:45 Dose: 12 mcg/min, 23.22 mls/hr Lactated Ringer's (Ringers, Lactated) Confirm Administered Dose 1,000 mls @ as directed .ROUTE .[facility] ONE Stop: 03/18/18 21:42 Propofol (Diprivan 100 Ml) 100 mls @ 2.082 mls/hr IV TITRATE [facility]; Protocol Last Titration: 03/27/18 06:35 Dose: 10 mcg/kg/min, 4.164 mls/hr Aztreonam 1 gm/ Sodium (Chloride) 50 mls @ 100 mls/hr IV Q8H [facility] Last Admin: 03/19/18 05:29 Dose: 100 mls/hr Potassium Chloride/Dextrose/Sod Cl (D5 1/2 Ns W/ 20 Meq/L Kcl) 1,000 mls @ 150 mls/hr IV ASDIRECTED [facility] Last Admin: 03/18/18 23:11 Dose: 150 mls/hr Meropenem 1 gm/ Sodium (Chloride) 50 mls @ 100 mls/hr IV Q12H [facility] Stop: 03/29/18 22:00 Last Admin: 03/29/18 20:10 Dose: 100 mls/hr Lactated Ringer's (Ringers, Lactated) 1,000 mls @ 500 mls/hr IV ASDIRECTED [facility] Last Admin: 03/19/18 01:23 Dose: 500 mls/hr Vasopressin 100 units/ (Dextrose/Water) 255 mls @ 1.53 mls/hr IV TITRATE [facility]; Protocol Stop: 03/21/18 13:00 Last Titration: 03/21/18 11:03 Dose: 0.02 units/min, 3.06 mls/hr Lactated Ringer's (Ringers, Lactated) 1,000 mls @ 500 mls/hr IV BOLUS [facility] Stop: 03/19/18 05:29 Last Admin: 03/19/18 04:02 Dose: 500 mls/hr Aztreonam/Dextrose 1 gm/ (Premix) 50 mls @ 100 mls/hr IV Q8H [facility] Last Admin: 03/28/18 05:26 Dose: 100 mls/hr Lactated Ringer's (Ringers, Lactated) 1,000 mls @ 500 mls/hr IV .BOLUS ONE Stop: 03/19/18 14:59 Last Admin: 03/19/18 14:27 Dose: 500 mls/hr Lactated Ringer's (Ringers, Lactated) 1,000 mls @ 150 mls/hr IV ASDIRECTED [facility] Last Admin: 03/21/18 11:53 Dose: 150 mls/hr Norepinephrine Bitartrate 8 mg (/ Dextrose/Water) 250 mls @ 3.75 mls/hr IV TITRATE [facility]; Protocol Last Titration: 03/27/18 09:04 Dose: 4 mcg/min, 7.5 mls/hr Magnesium Sulfate 2 gm/ Premix 50 mls @ 25 mls/hr IV Q6H [facility] Stop: 03/20/18 17:59 Last Admin: 03/20/18 16:30 Dose: 25 mls/hr Vancomycin HCl 1.25 gm/ Sodium (Chloride) 250 mls @ 170 mls/hr IV Q24H [facility] Last Admin: 03/22/18 10:06 Dose: 170 mls/hr Vasopressin 40 units/ Dextrose (/Water) 100 mls @ 3 mls/hr IV TITRATE [facility]; Protocol Last Titration: 03/23/18 01:00 Dose: 0 units/min, 0 mls/hr Potassium Chloride 20 meq/ (Premix) 100 mls @ 50 mls/hr IV Q2H [facility] Stop: 03/21/18 22:59 Last Admin: 03/21/18 22:20 Dose: 50 mls/hr Potassium Chloride 20 meq/ (Premix) 100 mls @ 50 mls/hr IV Q2H [facility] Stop: 03/22/18 12:59 Last Admin: 03/22/18 11:30 Dose: 50 mls/hr Potassium Chloride 20 meq/ (Premix) 100 mls @ 50 mls/hr IV Q2H [facility] Stop: 03/22/18 17:29 Last Admin: 03/22/18 16:13 Dose: 50 mls/hr Potassium Chloride (Kcl 20 Meq In Water 100 Ml) 100 mls @ 50 mls/hr IV Q2H [facility] Stop: 03/23/18 01:59 Last Admin: 03/23/18 00:53 Dose: 50 mls/hr Potassium Chloride 40 meq/ (Premix) 100 mls @ 25 mls/hr IV ONETIME ONE Stop: 03/23/18 14:29 Last Admin: 03/23/18 10:31 Dose: 25 mls/hr Vancomycin HCl 1.4 gm/ Sodium (Chloride) 250 mls @ 170 mls/hr IV Q24H [facility] Last Admin: 03/24/18 11:13 Dose: 170 mls/hr Multivitamins/Minerals 10 ml/Chromium/Copper/Manganese/Seleni/Zn 1 ml/ Amino Ac/ Electrol/Dextrose/Calcium 1,011 mls @ 75 mls/hr IV .BY DURATION [facility] Last Admin: 03/25/18 22:34 Dose: 75 mls/hr Amino Ac/Electrol/Dextrose/Calcium (Clinimix E 515) 1,000 mls @ 75 mls/hr IV .BY DURATION [facility] Last Admin: 03/25/18 08:11 Dose: 75 mls/hr Vasopressin 100 units/ (Dextrose/Water) 255 mls @ 1.53 mls/hr IV TITRATE [facility]; Protocol Last Titration: 03/25/18 11:51 Dose: 0 units/min, 0 mls/hr Potassium Chloride 20 meq/ (Premix) 100 mls @ 50 mls/hr IV Q2H [facility] Stop: 03/24/18 13:59 Last Admin: 03/24/18 12:13 Dose: 50 mls/hr Multivitamins/Minerals 10 ml/Chromium/Copper/Manganese/Seleni/Zn 1 ml/ Amino Ac/ Electrol/Dextrose/Calcium 1,011 mls @ 75 mls/hr IV .BY DURATION [facility] Last Admin: 03/29/18 06:48 Dose: 75 mls/hr Amino Ac/Electrol/Dextrose/Calcium (Clinimix E 07/08) 1,000 mls @ 75 mls/hr IV .BY DURATION [facility] Last Admin: 03/29/18 20:12 Dose: 75 mls/hr Heparin Sodium (Porcine) 5,000 (units/ Sodium Chloride) 501 mls @ 5 mls/hr IV ASDIRECTED [facility] Last Admin: 03/27/18 12:50 Dose: 5 mls/hr Sodium Chloride (Normal Saline) 1,000 mls @ 50 mls/hr IV ASDIRECTED [facility] Last Admin: 03/30/18 13:36 Dose: 50 mls/hr Insulin Human Lispro (Humalog) 0 unit SUBCUT Q6H [facility]; Protocol Last Admin: 03/30/18 16:32 Dose: Not Given Insulin Human Lispro (Humalog) 0 unit SUBCUT Q6H [facility]; Protocol Last Admin: 03/31/18 03:52 Dose: Not Given Insulin Human Lispro (Humalog) 0 unit SUBCUT QIDACANDBED [facility]; Protocol Stop: 04/12/18 11:01 Last Admin: 03/31/18 08:57 Dose: Not Given Meropenem (Merrem) Confirm Administered Dose 500 mg .ROUTE .STK-MED ONE Stop: 03/18/18 19:40 Last Admin: 03/18/18 20:19 Dose: Not Given Morphine Sulfate (Morphine) 4 mg IVPUSH Q2H PRN PRN Reason: Pain Last Admin: 03/29/18 07:34 Dose: 4 mg Neostigmine Methylsulfate (Neostigmine) Confirm Administered Dose 5 mg .ROUTE .STK-MED ONE Stop: 03/18/18 19:48 Non-Formulary Medication (Total Parenteral Nutrition, Central) 1,000 ml .XX .Continue Order [facility]; Protocol Stop: 03/24/18 11:31 Non-Formulary Medication (Total Parenteral Nutrition, Central) 1,000 ml .XX .Continue Order [facility]; Protocol Non-Formulary Medication (Total Parenteral Nutrition, Central) 1,000 ml .XX .Continue Order [facility]; Protocol Non-Formulary Medication (Total Parenteral Nutrition, Central) 1,000 ml .XX .Continue Order [facility]; Protocol Stop: 03/28/18 12:00 Ondansetron HCl (Zofran) 4 mg IVPUSH ONETIME ONE Stop: 03/18/18 18:18 Last Admin: 03/18/18 18:27 Dose: 4 mg Ondansetron HCl (Zofran) Confirm Administered Dose 4 mg .ROUTE .STK-MED ONE Stop: 03/18/18 19:48 Pantoprazole Sodium (Protonix Iv) 40 mg IVPUSH DAILY [facility] Last Admin: 03/28/18 08:34 Dose: 40 mg Phenylephrine HCl (Isaías-Synephrine) Confirm Administered Dose 10 mg .ROUTE .STK- MED ONE Stop: 03/18/18 20:05 Prednisone (Prednisone) 20 mg PO WITHBREAKFAST [facility] Last Admin: 03/30/18 08:59 Dose: 20 mg Propofol (Diprivan 20 Ml) Confirm Administered Dose 200 mg .ROUTE .STK-MED ONE Stop: 03/18/18 19:48 Rocuronium Saxon (Zemuron) Confirm Administered Dose 50 mg .ROUTE .STK-MED ONE Stop: 03/18/18 19:48 Succinylcholine Chloride (Quelicin) Confirm Administered Dose 200 mg .ROUTE .STK -MED ONE Stop: 03/18/18 19:48 Vancomycin HCl (Vancomycin) 1 gm IV .PHARMACY TO DOSE [facility] Stop: 03/21/18 16:00 - Exam Quality Assessment: Supplemental Oxygen, DVT Prophylaxis. No: Central Line/PICC , Urine Catheter General: Alert, Oriented, Cooperative, No Acute Distress Lungs: Decreased Breath Sounds, Rhonchi, Wheezing. No: Rales, Rub Cardiovascular: Regular Rate, Regular Rhythm, No Murmurs GI/Abdominal Exam: Soft, Non-Tender, No Organomegaly, No Distention Extremities: Non-Tender, Pedal Edema - Problem List Review Problem List Initiated/Reviewed/Updated: Yes - My Orders Last 24 Hours: My Active Orders 03/31/18 11:29 Swallow Screen [Nursing Bedside Swallow Screen] [RC] ASDIRECTED 03/31/18 11:33 Up to Chair [RC] QID 03/31/18 11:36 Supplement (Dietary) [Dietary Supplements] [RC] QIDACANDBED 03/31/18 11:54 Furosemide [Lasix] 20 mg IVPUSH NOW ONE 03/31/18 11:55 Consult to Speech Language Pathology [[employer] Evaluation and Treatment] [CONS] Routine - Plan Plan:: ASSESSMENT AND PLAN SIGMOID COLON PERFORATION RESULTING IN ACUTE ABDOMEN AND SEPTIC SHOCK - status post exploratory laparotomy with partial sigmoid colon resection and creation of a colostomy. Stable and doing well over the past few days. -Post operative surgical care per surgical team -Oxycodone as needed for pain SEPTIC SHOCK - resolved ACUTE HYPOXIC RESPIRATORY FAILURE - secondary to septic shock, colon perforation , recent surgery and underlying COPD. -Coughing, deep breathing and suctioning as able STEROID-INDUCED HYPERGLYCEMIA - resolved COPD - [id number] smoking history but no evidence for exacerbation at this time. -Nebulized albuterol as needed -Vigorous pulmonary toilet during the postoperative period ACUTE KIDNEY INJURY -resolved, renal function is back to baseline -Furosemide 20 mg IV now -Assess volume status daily to see if he needs additional diuresis -Closely monitor urine output and renal function during the postoperative period HISTORY OF LUNG AND PROSTATE CARCINOMA - lung cancer felt to be stable, had been receiving treatment for management of prostate carcinoma prior to admission MAINTENANCE ISSUES -DVT prophylaxis; SCUDs -GI prophylaxis; Protonix 40 mg daily -Sorto catheter; removed today -Nutrition; full liquids with nutritional supplements DISPOSITION - anticipate discharge to skilled nursing after the hospital stay
[2018-03-31] MEDS ORDERED: Albuterol/Ipratropium 3.0-0.5 MG/3 ML Neb Soln NEB PRN (16:17)
[2018-03-31] MEDS: Albuterol/Ipratropium 3.0-0.5 MG/3 ML Neb Soln NEB SCH (20:42)
[2018-03-31] MEDS: Melatonin 3 MG Tab PO SCH (21:24)
[2018-04-01] MEDS: oxyCODONE 5 MG Tab PO PRN (00:59)
[2018-04-01] MEDS: Acetaminophen 325 MG Tab PO PRN (00:59)
[2018-04-01] MEDS: Nystatin Susp 100,000 Unit/ML 5 ML UD Cup PO SCH ×4 (06:09→22:01)
[2018-04-01] MEDS: Albuterol/Ipratropium 3.0-0.5 MG/3 ML Neb Soln NEB SCH ×4 (07:17→21:14)
[2018-04-01] MEDS: Pantoprazole 40 MG Tab.CR PO SCH (08:16)
--- NOTE | 2018-04-01 08:34 | PN ---
DATE OF SERVICE: 04/01/2018 SUBJECTIVE: Kodak reports to be very weak. They had to use a [place] lift on him during days. He did have swallowing test yesterday. Oral intake 210, 50 mL out of his ostomy. He has been incontinent of urine. Remainder of review of systems is negative for any pertinent positives and negatives. LABORATORY DATA: Hemoglobin 10, potassium 3.2, sodium 153, chloride 116, phosphorus 2.5, albumin is 1.9. OBJECTIVE: GENERAL: Kodak Silva is a 77-year-old male. He is pleasant. VITAL SIGNS: Temperature is 97.9, pulse 78, respiratory rate 20, blood pressure 141/58. These vitals are from 0340. HEENT: Negative. NECK: Supple. HEART: Regular rate and rhythm. LUNGS: Clear. ABDOMEN: Negative. Colostomy intact. EXTREMITIES: Without peripheral edema. ASSESSMENT: Exploratory laparotomy, sigmoid colon resection, and peritoneal lavage with 4 mL of normal saline in the colostomy. Date of surgery 03/18/[address] Espinoza Adams. PLAN: 1. K-Phos 60 millimoles and D5LR. 2. IV D5LR increased to 80 mL per hour. 3. Check CBC, CMP, magnesium, phos in a.m. 4. Dr. Agosto to address nutritional status per request of Fredi Linn MD in regard to TPN or gastrostomy tube. We will evaluate p.r.n. or in a.m. Rula Morley PA-C /[id number]
[2018-04-01] MEDS ORDERED: Furosemide 20 MG/2 ML VIAL IVPUSH ONE (12:04)
--- NOTE | 2018-04-01 12:04 | PCM.PN ---
- General Info Date of Service: 04/01/18 Subjective Update: Mr. Silva has been stable since yesterday, except for brief episode of bradycardia noted this morning by nursing staff. When he was transiently placed on cardiac monitoring heart rate was within desired range with frequent premature ventricular complexes. He denies significant shortness of breath but states that he just really has no appetite. Functional Status: Reports: Urinating. Denies: Tolerating Diet - Review of Systems General: Reports: Weakness. Denies: Fever, Chills Pulmonary: Reports: No Symptoms Cardiovascular: Reports: No Symptoms Gastrointestinal: Reports: Abdominal Pain, Decreased Appetite, Difficulty Swallowing. Denies: Diarrhea, Nausea, Vomiting - Patient Data Vitals - Most Recent: Last Vital Signs Temp 97.7 F 04/01/18 11:39 Pulse 75 04/01/18 11:39 Resp 20 04/01/18 11:39 BP 125/53 L 04/01/18 11:39 Pulse Ox 94 L 04/01/18 11:39 Weight - Most Recent: 171 lb 3.2 oz I&O - Last 24 Hours: Intake & Output 03/31/18 04/01/18 04/01/18 22:59 06:59 14:59 Intake Total 60 1389 40 Output Total 25 Balance 35 1389 40 Lab Results Last 24 Hours: Laboratory Results - last 24 hr 04/01/18 04/01/18 04/01/18 Range/Units 04:00 04:09 04:09 WBC 20.5 H (4.5-11.0) K/uL RBC 3.34 L (4.30-5.90) M/uL Hgb 10.0 L D (12.0-15.0) g/dL Hct 32.4 L (40.0-54.0) % MCV 97 (80-98) fL MCH 30 (27-31) pg MCHC 31 L (32-36) % Plt Count 472 H (150-400) K/uL Neut % (Auto) 85 H (36-66) % Lymph % (Auto) 7 L (24-44) % [place] % (Auto) 7 H (2-6) % Eos % (Auto) 2 (2-4) % Baso % (Auto) 0 (0-1) % Sodium 153 H (140-148) mmol/L Potassium 3.2 L (3.6-5.2) mmol/L Chloride 116 H (100-108) mmol/L Carbon Dioxide 31 (21-32) mmol/L Anion Gap 9.2 (5.0-14.0) mmol/L BUN 40 H (7-18) mg/dL Creatinine 1.1 (0.8-1.3) mg/dL Est Cr Clr Drug Dosing 54.11 mL/min Estimated GFR (MDRD) > 60 (>60) Glucose 125 H (74-106) mg/dL Calcium 7.6 L (8.5-10.1) mg/dL Phosphorus 2.5 (2.5-4.9) mg/dL Magnesium 1.8 (1.8-2.4) mg/dL Total Bilirubin 0.5 (0.2-1.0) mg/dL AST 25 (15-37) U/L ALT 57 (12-78) U/L Alkaline Phosphatase 102 (46-116) U/L Total Protein 4.7 L (6.4-8.2) g/dL Albumin 1.9 L (3.4-5.0) g/dL Globulin 2.8 (2.3-3.5) g/dL Albumin/Globulin Ratio 0.7 L (1.2-2.2) Med Orders - Current: Current Medications Acetaminophen (Tylenol) 650 mg RECTAL Q4H PRN PRN Reason: Fever Acetaminophen (Tylenol) 650 mg PO Q4H PRN PRN Reason: Pain/Fever Last Admin: 04/01/18 00:59 Dose: 650 mg Albuterol (Proventil Neb Soln) 2.5 mg NEB Q4H PRN PRN Reason: Dyspnea Albuterol/Ipratropium (Duoneb 3.0-0.5 Mg/3 Ml) 3 ml NEB QIDRT [facility] Last Admin: 04/01/18 10:54 Dose: 3 ml Dimethicone/Zinc Oxide (Rash Relief-Zinc Oxide [place]) 0 gm TOP ASDIRECTED PRN PRN Reason: Rash Last Admin: 03/28/18 16:55 Dose: 1 spray Heparin Sodium (Porcine) (Heparin Lock Flush 100 Units/Ml) 500 units FLUSH ASDIRECTED PRN PRN Reason: IV Use Last Admin: 03/28/18 14:38 Dose: 500 units Albumin Human (Albumin 25%) 25 gm in 100 mls @ 25 mls/hr IV Q24H [facility] Stop: 04/02/18 12:59 Last Admin: 04/01/18 08:13 Dose: 25 mls/hr Potassium Phosphate 20 mmole/ (Sodium Chloride) 256.6667 mls @ 85 mls/hr IV Q3H [facility] Stop: 04/01/18 18:59 Dextrose/Sodium Chloride (Dextrose 5%-1/2 Ns) 1,000 mls @ 80 mls/hr IV ASDIRECTED [facility] Melatonin (Melatonin) 9 mg PO BEDTIME [facility] Last Admin: 03/31/18 21:24 Dose: 9 mg Nystatin (Mycostatin) 5 ml PO QID [facility] Last Admin: 04/01/18 11:35 Dose: 5 ml Oxycodone HCl (Oxycodone) 5 mg PO Q4H PRN PRN Reason: Pain (moderate 4-6) Last Admin: 04/01/18 00:59 Dose: 5 mg Pantoprazole Sodium (Protonix) 40 mg PO ACBREAKFAST [facility] Last Admin: 04/01/18 08:16 Dose: 40 mg Discontinued Medications Albuterol/Ipratropium (Duoneb 3.0-0.5 Mg/3 Ml) 3 ml NEB Q4H PRN PRN Reason: Dyspnea Dexamethasone (Dexamethasone) Confirm Administered Dose 4 mg .ROUTE .STK-MED ONE Stop: 03/18/18 19:48 Epinephrine HCl (Adrenalin) Confirm Administered Dose 1 mg .ROUTE .STK-MED ONE Stop: 03/18/18 21:07 Fentanyl (Sublimaze) Confirm Administered Dose 250 mcg .ROUTE .STK-MED ONE Stop: 03/18/18 19:48 Furosemide (Lasix) 20 mg IVPUSH ONETIME ONE Stop: 03/23/18 09:46 Last Admin: 03/23/18 10:18 Dose: 20 mg Furosemide (Lasix) 20 mg IVPUSH NOW ONE Stop: 03/25/18 10:01 Last Admin: 03/25/18 10:17 Dose: 20 mg Furosemide (Lasix) 20 mg IVPUSH ONETIME ONE Stop: 03/26/18 09:16 Last Admin: 03/26/18 09:10 Dose: 20 mg Furosemide (Lasix) 20 mg IVPUSH ONETIME ONE Stop: 03/26/18 16:01 Last Admin: 03/26/18 18:28 Dose: Not Given Furosemide (Lasix) 20 mg IVPUSH NOW ONE Stop: 03/27/18 10:01 Last Admin: 03/27/18 10:26 Dose: 20 mg Furosemide (Lasix) 20 mg IVPUSH ONETIME ONE Stop: 03/30/18 13:11 Last Admin: 03/30/18 13:36 Dose: 20 mg Furosemide (Lasix) 20 mg IVPUSH NOW ONE Stop: 03/31/18 11:55 Last Admin: 03/31/18 13:04 Dose: 20 mg Glycopyrrolate (Robinul) Confirm Administered Dose 1 mg .ROUTE .STK-MED ONE Stop: 03/18/18 19:48 Heparin Sodium (Porcine) (Heparin Sodium) Confirm Administered Dose 5,000 units .ROUTE .STK-MED ONE Stop: 03/18/18 19:51 Heparin Sodium (Porcine) (Heparin Lock Flush 100 Units/Ml) Confirm Administered Dose 500 units .ROUTE .K-MED ONE Stop: 03/22/18 12:17 Last Admin: 03/22/18 12:30 Dose: Not Given Heparin Sodium (Porcine) (Heparin Sodium) Confirm Administered Dose 5,000 units .ROUTE .STK-MED ONE Stop: 03/24/18 19:52 Last Admin: 03/24/18 20:33 Dose: 5,000 units Hydrocortisone Sodium Succinate (Solu-Cortef) 100 mg IVPUSH Q12H [facility] Last Admin: 03/28/18 20:15 Dose: 100 mg Hydrocortisone Sodium Succinate (Solu-Cortef) 100 mg IVPUSH DAILY [facility] Last Admin: 03/30/18 13:39 Dose: Not Given Hydromorphone HCl (Dilaudid) 0.5 mg IVPUSH ONETIME ONE Stop: 03/18/18 17:43 Last Admin: 03/18/18 17:47 Dose: 0.5 mg Hydromorphone HCl (Dilaudid) 1 mg IVPUSH ONETIME ONE Stop: 03/18/18 18:18 Last Admin: 03/18/18 18:27 Dose: 1 mg Sodium Chloride (Normal Saline) 1,000 mls @ 1,000 mls/hr IV ASDIRECTED [facility] Last Admin: 03/18/18 17:47 Dose: 1,000 mls/hr Sodium Chloride (Normal Saline) 1,000 mls @ 999 mls/hr IV ASDIRECTED [facility] Last Admin: 03/18/18 19:31 Dose: 999 mls/hr Meropenem 500 mg/ Sodium (Chloride) 50 mls @ 100 mls/hr IV ONETIME ONE Stop: 03/18/18 19:09 Last Admin: 03/18/18 19:01 Dose: 100 mls/hr Sodium Chloride (Normal Saline) Confirm Administered Dose 50 mls @ as directed .ROUTE .ST-MED ONE Stop: 03/18/18 19:40 Last Admin: 03/18/18 20:19 Dose: Not Given Aztreonam 2 gm/ Sodium (Chloride) 50 mls @ 100 mls/hr IV ONETIME ONE Stop: 03/18/18 20:01 Last Admin: 03/18/18 20:44 Dose: 100 mls/hr Meropenem 500 mg/ Sodium (Chloride) 50 mls @ 100 mls/hr IV ONETIME ONE Stop: 03/18/18 20:00 Last Admin: 03/18/18 19:40 Dose: 100 mls/hr Sodium Chloride (Normal Saline) Confirm Administered Dose 250 mls @ as directed .ROUTE .[facility]-MED ONE Stop: 03/18/18 19:59 Lactated Ringer's (Ringers, Lactated) Confirm Administered Dose 1,000 mls @ as directed .ROUTE .[facility]-MED ONE Stop: 03/18/18 19:59 Sodium Chloride (Normal Saline) Confirm Administered Dose 500 mls @ as directed .ROUTE .[facility]-MED ONE Stop: 03/18/18 19:59 Norepinephrine Bitartrate 8 mg (/ Dextrose/Water) 258 mls @ 3.87 mls/hr IV TITRATE [facility]; Protocol Last Admin: 03/19/18 11:45 Dose: 12 mcg/min, 23.22 mls/hr Lactated Ringer's (Ringers, Lactated) Confirm Administered Dose 1,000 mls @ as directed .ROUTE .[facility]-MED ONE Stop: 03/18/18 21:42 Propofol (Diprivan 100 Ml) 100 mls @ 2.082 mls/hr IV TITRATE [facility]; Protocol Last Titration: 03/27/18 06:35 Dose: 10 mcg/kg/min, 4.164 mls/hr Aztreonam 1 gm/ Sodium (Chloride) 50 mls @ 100 mls/hr IV Q8H [facility] Last Admin: 03/19/18 05:29 Dose: 100 mls/hr Potassium Chloride/Dextrose/Sod Cl (D5 1/2 Ns W/ 20 Meq/L Kcl) 1,000 mls @ 150 mls/hr IV ASDIRECTED [facility] Last Admin: 03/18/18 23:11 Dose: 150 mls/hr Meropenem 1 gm/ Sodium (Chloride) 50 mls @ 100 mls/hr IV Q12H [facility] Stop: 03/29/18 22:00 Last Admin: 03/29/18 20:10 Dose: 100 mls/hr Lactated Ringer's (Ringers, Lactated) 1,000 mls @ 500 mls/hr IV ASDIRECTED [facility] Last Admin: 03/19/18 01:23 Dose: 500 mls/hr Vasopressin 100 units/ (Dextrose/Water) 255 mls @ 1.53 mls/hr IV TITRATE [facility]; Protocol Stop: 03/21/18 13:00 Last Titration: 03/21/18 11:03 Dose: 0.02 units/min, 3.06 mls/hr Lactated Ringer's (Ringers, Lactated) 1,000 mls @ 500 mls/hr IV BOLUS [facility] Stop: 03/19/18 05:29 Last Admin: 03/19/18 04:02 Dose: 500 mls/hr Aztreonam/Dextrose 1 gm/ (Premix) 50 mls @ 100 mls/hr IV Q8H [facility] Last Admin: 03/28/18 05:26 Dose: 100 mls/hr Lactated Ringer's (Ringers, Lactated) 1,000 mls @ 500 mls/hr IV .BOLUS ONE Stop: 03/19/18 14:59 Last Admin: 03/19/18 14:27 Dose: 500 mls/hr Lactated Ringer's (Ringers, Lactated) 1,000 mls @ 150 mls/hr IV ASDIRECTED [facility] Last Admin: 03/21/18 11:53 Dose: 150 mls/hr Norepinephrine Bitartrate 8 mg (/ Dextrose/Water) 250 mls @ 3.75 mls/hr IV TITRATE [facility]; Protocol Last Titration: 03/27/18 09:04 Dose: 4 mcg/min, 7.5 mls/hr Magnesium Sulfate 2 gm/ Premix 50 mls @ 25 mls/hr IV Q6H [facility] Stop: 03/20/18 17:59 Last Admin: 03/20/18 16:30 Dose: 25 mls/hr Vancomycin HCl 1.25 gm/ Sodium (Chloride) 250 mls @ 170 mls/hr IV Q24H [facility] Last Admin: 03/22/18 10:06 Dose: 170 mls/hr Vasopressin 40 units/ Dextrose (/Water) 100 mls @ 3 mls/hr IV TITRATE [facility]; Protocol Last Titration: 03/23/18 01:00 Dose: 0 units/min, 0 mls/hr Potassium Chloride 20 meq/ (Premix) 100 mls @ 50 mls/hr IV Q2H [facility] Stop: 03/21/18 22:59 Last Admin: 03/21/18 22:20 Dose: 50 mls/hr Potassium Chloride 20 meq/ (Premix) 100 mls @ 50 mls/hr IV Q2H [facility] Stop: 03/22/18 12:59 Last Admin: 03/22/18 11:30 Dose: 50 mls/hr Potassium Chloride 20 meq/ (Premix) 100 mls @ 50 mls/hr IV Q2H [facility] Stop: 03/22/18 17:29 Last Admin: 03/22/18 16:13 Dose: 50 mls/hr Potassium Chloride (Kcl 20 Meq In Water 100 Ml) 100 mls @ 50 mls/hr IV Q2H [facility] Stop: 03/23/18 01:59 Last Admin: 03/23/18 00:53 Dose: 50 mls/hr Potassium Chloride 40 meq/ (Premix) 100 mls @ 25 mls/hr IV ONETIME ONE Stop: 03/23/18 14:29 Last Admin: 03/23/18 10:31 Dose: 25 mls/hr Vancomycin HCl 1.4 gm/ Sodium (Chloride) 250 mls @ 170 mls/hr IV Q24H [facility] Last Admin: 03/24/18 11:13 Dose: 170 mls/hr Multivitamins/Minerals 10 ml/Chromium/Copper/Manganese/Seleni/Zn 1 ml/ Amino Ac/ Electrol/Dextrose/Calcium 1,011 mls @ 75 mls/hr IV .BY DURATION [facility] Last Admin: 03/25/18 22:34 Dose: 75 mls/hr Amino Ac/Electrol/Dextrose/Calcium (Clinimix E 5/15) 1,000 mls @ 75 mls/hr IV .BY DURATION [facility] Last Admin: 03/25/18 08:11 Dose: 75 mls/hr Vasopressin 100 units/ (Dextrose/Water) 255 mls @ 1.53 mls/hr IV TITRATE [facility]; Protocol Last Titration: 03/25/18 11:51 Dose: 0 units/min, 0 mls/hr Potassium Chloride 20 meq/ (Premix) 100 mls @ 50 mls/hr IV Q2H [facility] Stop: 03/24/18 13:59 Last Admin: 03/24/18 12:13 Dose: 50 mls/hr Multivitamins/Minerals 10 ml/Chromium/Copper/Manganese/Seleni/Zn 1 ml/ Amino Ac/ Electrol/Dextrose/Calcium 1,011 mls @ 75 mls/hr IV .BY DURATION [facility] Last Admin: 03/29/18 06:48 Dose: 75 mls/hr Amino Ac/Electrol/Dextrose/Calcium (Clinimix E 5/15) 1,000 mls @ 75 mls/hr IV .BY DURATION [facility] Last Admin: 03/29/18 20:12 Dose: 75 mls/hr Heparin Sodium (Porcine) 5,000 (units/ Sodium Chloride) 501 mls @ 5 mls/hr IV ASDIRECTED [facility] Last Admin: 03/27/18 12:50 Dose: 5 mls/hr Sodium Chloride (Normal Saline) 1,000 mls @ 50 mls/hr IV ASDIRECTED [facility] Last Admin: 03/30/18 13:36 Dose: 50 mls/hr Dextrose/Sodium Chloride (Dextrose 5%-1/2 Ns) 1,000 mls @ 75 mls/hr IV ASDIRECTED [facility] Last Admin: 03/31/18 23:53 Dose: 75 mls/hr Insulin Human Lispro (Humalog) 0 unit SUBCUT Q6H [facility]; Protocol Last Admin: 03/30/18 16:32 Dose: Not Given Insulin Human Lispro (Humalog) 0 unit SUBCUT Q6H [facility]; Protocol Last Admin: 03/31/18 03:52 Dose: Not Given Insulin Human Lispro (Humalog) 0 unit SUBCUT QIDACANDBED [facility]; Protocol Stop: 04/12/18 11:01 Last Admin: 03/31/18 13:17 Dose: Not Given Meropenem (Merrem) Confirm Administered Dose 500 mg .ROUTE .STK-MED ONE Stop: 03/18/18 19:40 Last Admin: 03/18/18 20:19 Dose: Not Given Morphine Sulfate (Morphine) 4 mg IVPUSH Q2H PRN PRN Reason: Pain Last Admin: 03/29/18 07:34 Dose: 4 mg Neostigmine Methylsulfate (Neostigmine) Confirm Administered Dose 5 mg .ROUTE .STK-MED ONE Stop: 03/18/18 19:48 Non-Formulary Medication (Total Parenteral Nutrition, Central) 1,000 ml .XX .Continue Order [facility]; Protocol Stop: 03/24/18 11:31 Non-Formulary Medication (Total Parenteral Nutrition, Central) 1,000 ml .XX .Continue Order [facility]; Protocol Non-Formulary Medication (Total Parenteral Nutrition, Central) 1,000 ml .XX .Continue Order [facility]; Protocol Non-Formulary Medication (Total Parenteral Nutrition, Central) 1,000 ml .XX .Continue Order [facility]; Protocol Stop: 03/28/18 12:00 Ondansetron HCl (Zofran) 4 mg IVPUSH ONETIME ONE Stop: 03/18/18 18:18 Last Admin: 03/18/18 18:27 Dose: 4 mg Ondansetron HCl (Zofran) Confirm Administered Dose 4 mg .ROUTE .STK-MED ONE Stop: 03/18/18 19:48 Pantoprazole Sodium (Protonix Iv) 40 mg IVPUSH DAILY [facility] Last Admin: 03/28/18 08:34 Dose: 40 mg Phenylephrine HCl (Isaías-Synephrine) Confirm Administered Dose 10 mg .ROUTE .STK- MED ONE Stop: 03/18/18 20:05 Prednisone (Prednisone) 20 mg PO WITHBREAKFAST [facility] Last Admin: 03/30/18 08:59 Dose: 20 mg Propofol (Diprivan 20 Ml) Confirm Administered Dose 200 mg .ROUTE .STK-MED ONE Stop: 03/18/18 19:48 Rocuronium Raymond (Zemuron) Confirm Administered Dose 50 mg .ROUTE .STK-MED ONE Stop: 03/18/18 19:48 Succinylcholine Chloride (Quelicin) Confirm Administered Dose 200 mg .ROUTE .STK -MED ONE Stop: 03/18/18 19:48 Vancomycin HCl (Vancomycin) 1 gm IV .PHARMACY TO DOSE [facility] Stop: 03/21/18 16:00 - Exam Quality Assessment: DVT Prophylaxis General: Alert, Oriented, Cooperative, Mild Distress Lungs: Decreased Breath Sounds, Rhonchi, Wheezing. No: Crackles, Rales Cardiovascular: Regular Rate, Regular Rhythm, No Murmurs GI/Abdominal Exam: Soft, No Organomegaly, Tender. No: Distended, Guarding, Rigid, Rebound Extremities: Non-Tender, Pedal Edema - Problem List Review Problem List Initiated/Reviewed/Updated: Yes - My Orders Last 24 Hours: My Active Orders 03/31/18 11:29 Swallow Screen [Nursing Bedside Swallow Screen] [RC] ASDIRECTED 03/31/18 11:33 Up to Chair [RC] QID 03/31/18 11:36 Supplement (Dietary) [Dietary Supplements] [RC] QIDACANDBED 03/31/18 11:55 Consult to Speech Language Pathology [LONG DISTANCE BILLING OPERATOR Evaluation and Treatment] [CONS] Routine 03/31/18 16:17 RT Aerosol Therapy [RC] ASDIRECTED 03/31/18 16:59 Albuterol [Proventil Neb Soln] 2.5 mg NEB Q4H PRN 03/31/18 21:00 Albuterol/Ipratropium [DuoNeb 3.0-0.5 MG/3 ML] 3 ml NEB QIDRT 04/01/18 11:59 Cardiac Monitoring [RC] .As Directed Code Status [Resuscitation Status] Routine 04/02/18 Breakfast NPO After Midnight [Nothing per Oral After Midnight Diet] [DIET] - Plan Plan:: ASSESSMENT AND PLAN SIGMOID COLON PERFORATION RESULTING IN ACUTE ABDOMEN AND SEPTIC SHOCK - status post exploratory laparotomy with partial sigmoid colon resection and creation of a colostomy. He otherwise has been stable the last few days but oral intake has remained fairly poor. -Feeding tube placement tomorrow by Dr. Linn -Nothing by mouth after the night -Post operative surgical care per surgical team -Oxycodone as needed for pain SEPTIC SHOCK - resolved ACUTE HYPOXIC RESPIRATORY FAILURE - secondary to septic shock, colon perforation , recent surgery and underlying COPD. -Coughing, deep breathing and suctioning as able STEROID-INDUCED HYPERGLYCEMIA - resolved COPD - 25-yqds-xaal smoking history but no evidence for exacerbation at this time. -Nebulized albuterol as needed -Vigorous pulmonary toilet during the postoperative period ACUTE KIDNEY INJURY -resolved, renal function is back to baseline -Furosemide 20 mg IV now -Assess volume status daily to see if he needs additional diuresis -Closely monitor urine output and renal function during the postoperative period HISTORY OF LUNG AND PROSTATE CARCINOMA - lung cancer felt to be stable, had been receiving treatment for management of prostate carcinoma prior to admission MAINTENANCE ISSUES -DVT prophylaxis; SCUDs -GI prophylaxis; Protonix 40 mg daily -Sorto catheter; removed today -Nutrition; full liquids with nutritional supplements DISPOSITION - anticipate discharge to senior living after the hospital stay
[2018-04-01] MEDS: Potassium Phosphates 20 MMOLE in Sodium Chloride 0.9% 250 ML IV SCH ×3 (12:43→18:37)
[2018-04-01] MEDS: Dextrose 5%-0.45% NaCl 1,000 ML IV SCH (14:45)
[2018-04-01] MEDS: Melatonin 3 MG Tab PO SCH (22:01)
[2018-04-02] MEDS: Dextrose 5%-0.45% NaCl 1,000 ML IV SCH (03:24)
[2018-04-02] MEDS: Nystatin Susp 100,000 Unit/ML 5 ML UD Cup PO SCH ×4 (05:40→21:51)
[2018-04-02] MEDS: Albuterol/Ipratropium 3.0-0.5 MG/3 ML Neb Soln NEB SCH ×4 (07:11→21:49)
[2018-04-02] MEDS: Pantoprazole 40 MG Tab.CR PO SCH (07:57)
--- NOTE | 2018-04-02 08:38 | PN ---
DATE OF SERVICE: 04/02/2018 SUBJECTIVE: Kodak is n.p.o. He will be having an insertion of gastrostomy tube today. He has been n.p.o. Vital signs have been stable. Oral intake up until midnight 240. Urine output incontinent. He was able to void 350 mL, which was collected. REVIEW OF SYSTEMS: Remainder of review of systems negative for any pertinent positives and negatives. OBJECTIVE: GENERAL: Kodak Silva is a 77-year-old male. He is lying awake in bed. VITAL SIGNS: Temperature is 100.1, pulse 88, respiratory rate 20, blood pressure 139/70, O2 by pulse oximetry is 90% on 2 L of nasal cannula. HEENT: Negative. NECK: Supple. HEART: Regular rate and rhythm. LUNGS: Clear. ABDOMEN: Negative. EXTREMITIES: Without peripheral edema. SCDs are on. ASSESSMENT: 1. Exploratory laparotomy, peritoneal lavage, sigmoid colon resection with end left colostomy and Cristina pouch for acute abdomen with perforated viscus and sepsis. Date of surgery 03/18/2018. Surgeon is Espinoza Adams MD. Septic shock, resolved. 2. Acute hypoxic respiratory failure, resolved. 3. Chronic obstructive pulmonary disease. 4. Acute kidney injury, resolved. 5. History of lung and prostate carcinoma. 6. Persistent inadequate oral intake. PLAN: 1. Insertion of gastrostomy tube today. Case to follow with Frdei Linn MD. 2. Rx magnesium 2 g IV q.6 hours x72 hours. Orders to be written post surgical procedure and then we will evaluate p.r.n. or in a.m. Rula Morley PA-C /[id number]
[2018-04-02] MEDS ORDERED: ceFAZolin 2 GM in Premix Bag 1 BAG IV ONE (11:30)
[2018-04-02] MEDS: Magnesium Sulfate/Water 2 GM in Premix Bag 1 BAG IV SCH ×2 (12:12→18:01)
[2018-04-02] MEDS ORDERED: Propofol 200 MG/20 ML SDV ONE (12:58)
[2018-04-02] MEDS ORDERED: Midazolam 1 MG/ML 2 ML SDV ONE (12:58)
[2018-04-02] MEDS ORDERED: fentaNYL 250 MCG/5 ML SDV ONE (12:58)
--- NOTE | 2018-04-02 15:24 | PCM.PN ---
- General Info Date of Service: 04/02/18 Subjective Update: Mr. Silva has been stable since yesterday although continues to experience poor oral intake. He is going to the operating room today for placement of a PEG feeding tube, which should allow infusion of adequate nutrition as well as fluids. Vital signs have remained stable and he has been afebrile. Functional Status: Reports: Pain Controlled, Urinating. Denies: Tolerating Diet - Review of Systems General: Reports: Weakness. Denies: Fever, Chills Pulmonary: Reports: No Symptoms Cardiovascular: Reports: No Symptoms Gastrointestinal: Reports: No Symptoms - Patient Data Vitals - Most Recent: Last Vital Signs Temp 98.1 F 04/02/18 11:40 Pulse 83 04/02/18 11:40 Resp 20 04/02/18 11:40 BP 126/64 04/02/18 11:40 Pulse Ox 95 04/02/18 11:40 Weight - Most Recent: 171 lb 3.199 oz I&O - Last 24 Hours: Intake & Output 04/02/18 04/02/18 04/02/18 06:59 14:59 22:59 Intake Total 972 320 Output Total 50 475 Balance 922 -155 Lab Results Last 24 Hours: Laboratory Results - last 24 hr 04/02/18 04/02/18 Range/Units 04:50 04:50 WBC 19.8 H (4.5-11.0) K/uL RBC 3.45 L (4.30-5.90) M/uL Hgb 10.1 L (12.0-15.0) g/dL Hct 33.1 L (40.0-54.0) % MCV 96 (80-98) fL MCH 29 (27-31) pg MCHC 31 L (32-36) % Plt Count 359 (150-400) K/uL Sodium 154 H (140-148) mmol/L Potassium 3.3 L (3.6-5.2) mmol/L Chloride 116 H (100-108) mmol/L Carbon Dioxide 30 (21-32) mmol/L Anion Gap 11.3 (5.0-14.0) mmol/L BUN 25 H (7-18) mg/dL Creatinine 1.1 (0.8-1.3) mg/dL Est Cr Clr Drug Dosing 54.11 mL/min Estimated GFR (MDRD) > 60 (>60) Glucose 115 H (74-106) mg/dL Calcium 7.4 L (8.5-10.1) mg/dL Phosphorus 4.3 (2.5-4.9) mg/dL Magnesium 1.5 L (1.8-2.4) mg/dL Total Bilirubin 0.5 (0.2-1.0) mg/dL AST 25 (15-37) U/L ALT 44 (12-78) U/L Alkaline Phosphatase 94 (46-116) U/L Total Protein 4.8 L (6.4-8.2) g/dL Albumin 2.0 L (3.4-5.0) g/dL Globulin 2.8 (2.3-3.5) g/dL Albumin/Globulin Ratio 0.7 L (1.2-2.2) Med Orders - Current: Current Medications Acetaminophen (Tylenol) 650 mg RECTAL Q4H PRN PRN Reason: Fever Acetaminophen (Tylenol) 650 mg PO Q4H PRN PRN Reason: Pain/Fever Last Admin: 04/01/18 00:59 Dose: 650 mg Albuterol (Proventil Neb Soln) 2.5 mg NEB Q4H PRN PRN Reason: Dyspnea Albuterol/Ipratropium (Duoneb 3.0-0.5 Mg/3 Ml) 3 ml NEB QIDRT [facility] Last Admin: 04/02/18 10:52 Dose: 3 ml Dimethicone/Zinc Oxide (Rash Relief-Zinc Oxide [place]) 0 gm TOP ASDIRECTED PRN PRN Reason: Rash Last Admin: 03/28/18 16:55 Dose: 1 spray Furosemide (Lasix) 20 mg IVPUSH NOW ONE Stop: 04/02/18 15:21 Heparin Sodium (Porcine) (Heparin Lock Flush 100 Units/Ml) 500 units FLUSH ASDIRECTED PRN PRN Reason: IV Use Last Admin: 03/28/18 14:38 Dose: 500 units Dextrose/Sodium Chloride (Dextrose 5%-1/2 Ns) 1,000 mls @ 80 mls/hr IV ASDIRECTED [facility] Last Admin: 04/02/18 03:24 Dose: 80 mls/hr Magnesium Sulfate 2 gm/ Premix 50 mls @ 25 mls/hr IV Q6H [facility] Stop: 04/05/18 07:59 Last Admin: 04/02/18 12:12 Dose: 25 mls/hr Albumin Human (Albumin 25%) 25 gm in 100 mls @ 25 mls/hr IV ONETIME ONE Stop: 04/02/18 17:59 Melatonin (Melatonin) 9 mg PO BEDTIME [facility] Last Admin: 04/01/18 22:01 Dose: 9 mg Nystatin (Mycostatin) 5 ml PO QID [facility] Last Admin: 04/02/18 09:29 Dose: Not Given Oxycodone HCl (Oxycodone) 5 mg PO Q4H PRN PRN Reason: Pain (moderate 4-6) Last Admin: 04/01/18 00:59 Dose: 5 mg Pantoprazole Sodium (Protonix) 40 mg PO ACBREAKFAST [facility] Last Admin: 04/02/18 07:57 Dose: Not Given Discontinued Medications Albuterol/Ipratropium (Duoneb 3.0-0.5 Mg/3 Ml) 3 ml NEB Q4H PRN PRN Reason: Dyspnea Dexamethasone (Dexamethasone) Confirm Administered Dose 4 mg .ROUTE .STK-MED ONE Stop: 03/18/18 19:48 Epinephrine HCl (Adrenalin) Confirm Administered Dose 1 mg .ROUTE .STK-MED ONE Stop: 03/18/18 21:07 Fentanyl (Sublimaze) Confirm Administered Dose 250 mcg .ROUTE .STK-MED ONE Stop: 03/18/18 19:48 Fentanyl (Sublimaze) Confirm Administered Dose 250 mcg .ROUTE .STK-MED ONE Stop: 04/02/18 12:59 Furosemide (Lasix) 20 mg IVPUSH ONETIME ONE Stop: 03/23/18 09:46 Last Admin: 03/23/18 10:18 Dose: 20 mg Furosemide (Lasix) 20 mg IVPUSH NOW ONE Stop: 03/25/18 10:01 Last Admin: 03/25/18 10:17 Dose: 20 mg Furosemide (Lasix) 20 mg IVPUSH ONETIME ONE Stop: 03/26/18 09:16 Last Admin: 03/26/18 09:10 Dose: 20 mg Furosemide (Lasix) 20 mg IVPUSH ONETIME ONE Stop: 03/26/18 16:01 Last Admin: 03/26/18 18:28 Dose: Not Given Furosemide (Lasix) 20 mg IVPUSH NOW ONE Stop: 03/27/18 10:01 Last Admin: 03/27/18 10:26 Dose: 20 mg Furosemide (Lasix) 20 mg IVPUSH ONETIME ONE Stop: 03/30/18 13:11 Last Admin: 03/30/18 13:36 Dose: 20 mg Furosemide (Lasix) 20 mg IVPUSH NOW ONE Stop: 03/31/18 11:55 Last Admin: 03/31/18 13:04 Dose: 20 mg Furosemide (Lasix) 20 mg IVPUSH NOW ONE Stop: 04/01/18 12:05 Last Admin: 04/01/18 12:43 Dose: 20 mg Glycopyrrolate (Robinul) Confirm Administered Dose 1 mg .ROUTE .STK-MED ONE Stop: 03/18/18 19:48 Heparin Sodium (Porcine) (Heparin Sodium) Confirm Administered Dose 5,000 units .ROUTE .STK-MED ONE Stop: 03/18/18 19:51 Heparin Sodium (Porcine) (Heparin Lock Flush 100 Units/Ml) Confirm Administered Dose 500 units .ROUTE .STK-MED ONE Stop: 03/22/18 12:17 Last Admin: 03/22/18 12:30 Dose: Not Given Heparin Sodium (Porcine) (Heparin Sodium) Confirm Administered Dose 5,000 units .ROUTE .STK-MED ONE Stop: 03/24/18 19:52 Last Admin: 03/24/18 20:33 Dose: 5,000 units Hydrocortisone Sodium Succinate (Solu-Cortef) 100 mg IVPUSH Q12H [facility] Last Admin: 03/28/18 20:15 Dose: 100 mg Hydrocortisone Sodium Succinate (Solu-Cortef) 100 mg IVPUSH DAILY [facility] Last Admin: 03/30/18 13:39 Dose: Not Given Hydromorphone HCl (Dilaudid) 0.5 mg IVPUSH ONETIME ONE Stop: 03/18/18 17:43 Last Admin: 03/18/18 17:47 Dose: 0.5 mg Hydromorphone HCl (Dilaudid) 1 mg IVPUSH ONETIME ONE Stop: 03/18/18 18:18 Last Admin: 03/18/18 18:27 Dose: 1 mg Sodium Chloride (Normal Saline) 1,000 mls @ 1,000 mls/hr IV ASDIRECTED [facility] Last Admin: 03/18/18 17:47 Dose: 1,000 mls/hr Sodium Chloride (Normal Saline) 1,000 mls @ 999 mls/hr IV ASDIRECTED [facility] Last Admin: 03/18/18 19:31 Dose: 999 mls/hr Meropenem 500 mg/ Sodium (Chloride) 50 mls @ 100 mls/hr IV ONETIME ONE Stop: 03/18/18 19:09 Last Admin: 03/18/18 19:01 Dose: 100 mls/hr Sodium Chloride (Normal Saline) Confirm Administered Dose 50 mls @ as directed .ROUTE .[facility]-MED ONE Stop: 03/18/18 19:40 Last Admin: 03/18/18 20:19 Dose: Not Given Aztreonam 2 gm/ Sodium (Chloride) 50 mls @ 100 mls/hr IV ONETIME ONE Stop: 03/18/18 20:01 Last Admin: 03/18/18 20:44 Dose: 100 mls/hr Meropenem 500 mg/ Sodium (Chloride) 50 mls @ 100 mls/hr IV ONETIME ONE Stop: 03/18/18 20:00 Last Admin: 03/18/18 19:40 Dose: 100 mls/hr Sodium Chloride (Normal Saline) Confirm Administered Dose 250 mls @ as directed .ROUTE .[facility]-MED ONE Stop: 03/18/18 19:59 Lactated Ringer's (Ringers, Lactated) Confirm Administered Dose 1,000 mls @ as directed .ROUTE .[facility]-MED ONE Stop: 03/18/18 19:59 Sodium Chloride (Normal Saline) Confirm Administered Dose 500 mls @ as directed .ROUTE .[facility]-MED ONE Stop: 03/18/18 19:59 Norepinephrine Bitartrate 8 mg (/ Dextrose/Water) 258 mls @ 3.87 mls/hr IV TITRATE [facility]; Protocol Last Admin: 03/19/18 11:45 Dose: 12 mcg/min, 23.22 mls/hr Lactated Ringer's (Ringers, Lactated) Confirm Administered Dose 1,000 mls @ as directed .ROUTE .[facility]-MED ONE Stop: 03/18/18 21:42 Propofol (Diprivan 100 Ml) 100 mls @ 2.082 mls/hr IV TITRATE [facility]; Protocol Last Titration: 03/27/18 06:35 Dose: 10 mcg/kg/min, 4.164 mls/hr Aztreonam 1 gm/ Sodium (Chloride) 50 mls @ 100 mls/hr IV Q8H [facility] Last Admin: 03/19/18 05:29 Dose: 100 mls/hr Potassium Chloride/Dextrose/Sod Cl (D5 1/2 Ns W/ 20 Meq/L Kcl) 1,000 mls @ 150 mls/hr IV ASDIRECTED [facility] Last Admin: 03/18/18 23:11 Dose: 150 mls/hr Meropenem 1 gm/ Sodium (Chloride) 50 mls @ 100 mls/hr IV Q12H [facility] Stop: 03/29/18 22:00 Last Admin: 03/29/18 20:10 Dose: 100 mls/hr Lactated Ringer's (Ringers, Lactated) 1,000 mls @ 500 mls/hr IV ASDIRECTED [facility] Last Admin: 03/19/18 01:23 Dose: 500 mls/hr Vasopressin 100 units/ (Dextrose/Water) 255 mls @ 1.53 mls/hr IV TITRATE [facility]; Protocol Stop: 03/21/18 13:00 Last Titration: 03/21/18 11:03 Dose: 0.02 units/min, 3.06 mls/hr Lactated Ringer's (Ringers, Lactated) 1,000 mls @ 500 mls/hr IV BOLUS [facility] Stop: 03/19/18 05:29 Last Admin: 03/19/18 04:02 Dose: 500 mls/hr Aztreonam/Dextrose 1 gm/ (Premix) 50 mls @ 100 mls/hr IV Q8H [facility] Last Admin: 03/28/18 05:26 Dose: 100 mls/hr Lactated Ringer's (Ringers, Lactated) 1,000 mls @ 500 mls/hr IV .BOLUS ONE Stop: 03/19/18 14:59 Last Admin: 03/19/18 14:27 Dose: 500 mls/hr Lactated Ringer's (Ringers, Lactated) 1,000 mls @ 150 mls/hr IV ASDIRECTED [facility] Last Admin: 03/21/18 11:53 Dose: 150 mls/hr Norepinephrine Bitartrate 8 mg (/ Dextrose/Water) 250 mls @ 3.75 mls/hr IV TITRATE [facility]; Protocol Last Titration: 03/27/18 09:04 Dose: 4 mcg/min, 7.5 mls/hr Magnesium Sulfate 2 gm/ Premix 50 mls @ 25 mls/hr IV Q6H [facility] Stop: 03/20/18 17:59 Last Admin: 03/20/18 16:30 Dose: 25 mls/hr Vancomycin HCl 1.25 gm/ Sodium (Chloride) 250 mls @ 170 mls/hr IV Q24H [facility] Last Admin: 03/22/18 10:06 Dose: 170 mls/hr Vasopressin 40 units/ Dextrose (/Water) 100 mls @ 3 mls/hr IV TITRATE [facility]; Protocol Last Titration: 03/23/18 01:00 Dose: 0 units/min, 0 mls/hr Potassium Chloride 20 meq/ (Premix) 100 mls @ 50 mls/hr IV Q2H [facility] Stop: 03/21/18 22:59 Last Admin: 03/21/18 22:20 Dose: 50 mls/hr Potassium Chloride 20 meq/ (Premix) 100 mls @ 50 mls/hr IV Q2H [facility] Stop: 03/22/18 12:59 Last Admin: 03/22/18 11:30 Dose: 50 mls/hr Potassium Chloride 20 meq/ (Premix) 100 mls @ 50 mls/hr IV Q2H [facility] Stop: 03/22/18 17:29 Last Admin: 03/22/18 16:13 Dose: 50 mls/hr Potassium Chloride (Kcl 20 Meq In Water 100 Ml) 100 mls @ 50 mls/hr IV Q2H [facility] Stop: 03/23/18 01:59 Last Admin: 03/23/18 00:53 Dose: 50 mls/hr Potassium Chloride 40 meq/ (Premix) 100 mls @ 25 mls/hr IV ONETIME ONE Stop: 03/23/18 14:29 Last Admin: 03/23/18 10:31 Dose: 25 mls/hr Vancomycin HCl 1.4 gm/ Sodium (Chloride) 250 mls @ 170 mls/hr IV Q24H [facility] Last Admin: 03/24/18 11:13 Dose: 170 mls/hr Multivitamins/Minerals 10 ml/Chromium/Copper/Manganese/Seleni/Zn 1 ml/ Amino Ac/ Electrol/Dextrose/Calcium 1,011 mls @ 75 mls/hr IV .BY DURATION [facility] Last Admin: 03/25/18 22:34 Dose: 75 mls/hr Amino Ac/Electrol/Dextrose/Calcium (Clinimix E 5/15) 1,000 mls @ 75 mls/hr IV .BY DURATION [facility] Last Admin: 03/25/18 08:11 Dose: 75 mls/hr Vasopressin 100 units/ (Dextrose/Water) 255 mls @ 1.53 mls/hr IV TITRATE [facility]; Protocol Last Titration: 03/25/18 11:51 Dose: 0 units/min, 0 mls/hr Potassium Chloride 20 meq/ (Premix) 100 mls @ 50 mls/hr IV Q2H [facility] Stop: 03/24/18 13:59 Last Admin: 03/24/18 12:13 Dose: 50 mls/hr Multivitamins/Minerals 10 ml/Chromium/Copper/Manganese/Seleni/Zn 1 ml/ Amino Ac/ Electrol/Dextrose/Calcium 1,011 mls @ 75 mls/hr IV .BY DURATION [facility] Last Admin: 03/29/18 06:48 Dose: 75 mls/hr Amino Ac/Electrol/Dextrose/Calcium (Clinimix E 5/15) 1,000 mls @ 75 mls/hr IV .BY DURATION [facility] Last Admin: 03/29/18 20:12 Dose: 75 mls/hr Heparin Sodium (Porcine) 5,000 (units/ Sodium Chloride) 501 mls @ 5 mls/hr IV ASDIRECTED [facility] Last Admin: 03/27/18 12:50 Dose: 5 mls/hr Sodium Chloride (Normal Saline) 1,000 mls @ 50 mls/hr IV ASDIRECTED [facility] Last Admin: 03/30/18 13:36 Dose: 50 mls/hr Dextrose/Sodium Chloride (Dextrose 5%-1/2 Ns) 1,000 mls @ 75 mls/hr IV ASDIRECTED [facility] Last Admin: 03/31/18 23:53 Dose: 75 mls/hr Albumin Human (Albumin 25%) 25 gm in 100 mls @ 25 mls/hr IV Q24H [facility] Stop: 04/02/18 12:59 Last Admin: 04/01/18 08:13 Dose: 25 mls/hr Potassium Phosphate 20 mmole/ (Sodium Chloride) 256.6667 mls @ 85 mls/hr IV Q3H [facility] Stop: 04/01/18 18:59 Last Admin: 04/01/18 18:37 Dose: 85 mls/hr Cefazolin Sodium/Dextrose 2 gm (/ Premix) 50 mls @ 100 mls/hr IV ONCALL ONE Stop: 04/02/18 11:59 Last Admin: 04/02/18 13:59 Dose: 100 mls/hr Potassium Acetate 20 meq/ (Sodium Chloride) 110 mls @ 55 mls/hr IV Q2H [facility] Stop: 04/02/18 11:59 Last Admin: 04/02/18 10:10 Dose: 55 mls/hr Insulin Human Lispro (Humalog) 0 unit SUBCUT Q6H [facility]; Protocol Last Admin: 03/30/18 16:32 Dose: Not Given Insulin Human Lispro (Humalog) 0 unit SUBCUT Q6H [facility]; Protocol Last Admin: 03/31/18 03:52 Dose: Not Given Insulin Human Lispro (Humalog) 0 unit SUBCUT QIDACANDBED [facility]; Protocol Stop: 04/12/18 11:01 Last Admin: 03/31/18 13:17 Dose: Not Given Meropenem (Merrem) Confirm Administered Dose 500 mg .ROUTE .STK-MED ONE Stop: 03/18/18 19:40 Last Admin: 03/18/18 20:19 Dose: Not Given Midazolam HCl (Versed 1 Mg/Ml) Confirm Administered Dose 2 mg .ROUTE .STK-MED ONE Stop: 04/02/18 12:59 Morphine Sulfate (Morphine) 4 mg IVPUSH Q2H PRN PRN Reason: Pain Last Admin: 03/29/18 07:34 Dose: 4 mg Neostigmine Methylsulfate (Neostigmine) Confirm Administered Dose 5 mg .ROUTE .STK-MED ONE Stop: 03/18/18 19:48 Non-Formulary Medication (Total Parenteral Nutrition, Central) 1,000 ml .XX .Continue Order [facility]; Protocol Stop: 03/24/18 11:31 Non-Formulary Medication (Total Parenteral Nutrition, Central) 1,000 ml .XX .Continue Order [facility]; Protocol Non-Formulary Medication (Total Parenteral Nutrition, Central) 1,000 ml .XX .Continue Order [facility]; Protocol Non-Formulary Medication (Total Parenteral Nutrition, Central) 1,000 ml .XX .Continue Order [facility]; Protocol Stop: 03/28/18 12:00 Ondansetron HCl (Zofran) 4 mg IVPUSH ONETIME ONE Stop: 03/18/18 18:18 Last Admin: 03/18/18 18:27 Dose: 4 mg Ondansetron HCl (Zofran) Confirm Administered Dose 4 mg .ROUTE .STK-MED ONE Stop: 03/18/18 19:48 Pantoprazole Sodium (Protonix Iv) 40 mg IVPUSH DAILY [facility] Last Admin: 03/28/18 08:34 Dose: 40 mg Phenylephrine HCl (Isaías-Synephrine) Confirm Administered Dose 10 mg .ROUTE .STK- MED ONE Stop: 03/18/18 20:05 Prednisone (Prednisone) 20 mg PO WITHBREAKFAST [facility] Last Admin: 03/30/18 08:59 Dose: 20 mg Propofol (Diprivan 20 Ml) Confirm Administered Dose 200 mg .ROUTE .STK-MED ONE Stop: 03/18/18 19:48 Propofol (Diprivan 20 Ml) Confirm Administered Dose 200 mg .ROUTE .STK-MED ONE Stop: 04/02/18 12:59 Rocuronium [place] (Zemuron) Confirm Administered Dose 50 mg .ROUTE .STK-MED ONE Stop: 03/18/18 19:48 Succinylcholine Chloride (Quelicin) Confirm Administered Dose 200 mg .ROUTE .STK -MED ONE Stop: 03/18/18 19:48 Vancomycin HCl (Vancomycin) 1 gm IV .PHARMACY TO DOSE [facility] Stop: 03/21/18 16:00 - Exam Quality Assessment: DVT Prophylaxis General: Alert, Oriented, Cooperative, Mild Distress Lungs: Normal Respiratory Effort, Rhonchi, Wheezing. No: Crackles, Rales, Rub Cardiovascular: Regular Rate, Regular Rhythm, No Murmurs GI/Abdominal Exam: Soft, No Organomegaly, Tender, Other (Abdominal wound covered by surgical dressing and packing). No: Distended, Guarding, Rigid, Rebound Extremities: Non-Tender, Pedal Edema - Problem List Review Problem List Initiated/Reviewed/Updated: Yes - My Orders Last 24 Hours: My Active Orders 04/02/18 15:20 Furosemide [Lasix] 20 mg IVPUSH NOW ONE 04/02/18 Breakfast NPO After Midnight [Nothing per Oral After Midnight Diet] [DIET] - Plan Plan:: ASSESSMENT AND PLAN SIGMOID COLON PERFORATION RESULTING IN ACUTE ABDOMEN AND SEPTIC SHOCK - status post exploratory laparotomy with partial sigmoid colon resection and creation of a colostomy. He otherwise has been stable the last few days but oral intake has remained fairly poor. -Feeding tube placement today by Dr. Linn -Nothing by mouth after the night -Post operative surgical care per surgical team -Oxycodone as needed for pain SEPTIC SHOCK - resolved ACUTE HYPOXIC RESPIRATORY FAILURE - secondary to septic shock, colon perforation , recent surgery and underlying COPD. -Coughing, deep breathing and suctioning as able STEROID-INDUCED HYPERGLYCEMIA - resolved COPD - [id number] smoking history but no evidence for exacerbation at this time. -Nebulized albuterol as needed -Vigorous pulmonary toilet during the postoperative period ACUTE KIDNEY INJURY -resolved, renal function is back to baseline -Furosemide 20 mg IV now -Assess volume status daily to see if he needs additional diuresis -Closely monitor urine output and renal function during the postoperative period HISTORY OF LUNG AND PROSTATE CARCINOMA - lung cancer felt to be stable, had been receiving treatment for management of prostate carcinoma prior to admission MAINTENANCE ISSUES -DVT prophylaxis; SCUDs -GI prophylaxis; Protonix 40 mg daily -Sorto catheter; removed today -Nutrition; full liquids with nutritional supplements DISPOSITION - anticipate discharge to [facility] after the hospital stay
[2018-04-02] MEDS ORDERED: Furosemide 20 MG/2 ML VIAL IVPUSH ONE (15:45)
[2018-04-03] MEDS: Melatonin 3 MG Tab PO SCH ×2 (00:17→20:55)
[2018-04-03] MEDS: Magnesium Sulfate/Water 2 GM in Premix Bag 1 BAG IV SCH ×3 (00:18→12:11)
[2018-04-03] MEDS: Nystatin Susp 100,000 Unit/ML 5 ML UD Cup PO SCH ×4 (05:13→21:01)
[2018-04-03] MEDS: Dextrose 5%-0.45% NaCl 1,000 ML IV SCH (06:40)
[2018-04-03] MEDS: Albuterol/Ipratropium 3.0-0.5 MG/3 ML Neb Soln NEB SCH ×4 (07:16→21:01)
[2018-04-03] MEDS: Pantoprazole 40 MG Tab.CR PO SCH (08:42)
--- NOTE | 2018-04-03 08:45 | PN ---
DATE OF SERVICE: 04/03/2018 SUBJECTIVE: Kodak is postop day 1, following a PEG tube placement. He tolerated procedure well. Vital signs have been stable. Oral intake 240, ostomy output 100 mL. G-tube output 900 mL of a light yellow watery drainage. REVIEW OF SYSTEMS: Remainder of review of systems negative for any pertinent positives or negatives. LABORATORY DATA: Hemoglobin 10.1 which has been stable. Sodium 154, potassium is 3.3, chloride 116, glucose 115. Magnesium at 1.5. OBJECTIVE: GENERAL: Kodak Silva is a 77-year-old male. He is resting comfortably in bed. VITAL SIGNS: From 0300, 98.6, 84, 18, blood pressure 144/67. HEENT: Negative. NECK: Supple. HEART: Regular rate and rhythm. LUNGS: Clear. He has some rattling sounds like he needs to cough. ABDOMEN: Dressings dry and intact. Gastrostomy tube drainage examined. EXTREMITIES: No peripheral edema and SCDs. ASSESSMENT: 1. PEG tube placement for malnutrition with an adequate oral intake. Date of procedure, 04/02/2018; surgeon is Fredi Linn MD. 2. Exploratory laparotomy, peritoneal lavage, sigmoid colon resection, end left colostomy and Cristina pouch for acute abdomen with perforated viscus and sepsis. Date of surgery, 03/18/2018; surgeon is Espinoza Adams MD. 3. Septic shock, resolved. 4. Acute hypoxic respiratory failure, resolved. 5. Chronic obstructive pulmonary disease. 6. Acute kidney injury. 7. History of lung and prostate cancer. 8. Persistent inadequate oral intake and malnutrition. PLAN: 1. Check CBC, CMP, phos in a.m. 2. Dietary consult in regard to bolus, gastrostomy tube feeding. 3. Clamp gastrostomy tube 3 hours; unclamp [address] Jluis Agosto to address electrolyte imbalance. 5. Good pulmonary toilet. 6. We will evaluate p.r.n. or in a.m. Rula Morley PA-C /[id number]
[2018-04-03] MEDS ORDERED: Furosemide 40 MG/4 ML VIAL IVPUSH ONE (09:00)
[2018-04-03] MEDS ORDERED: Potassium Chloride Riders 40 MEQ in Premix Bag 1 BAG IV ONE (12:52)
[2018-04-03] MEDS ORDERED: Potassium Chloride 20 MEQ Tab.ER PO ONE ×2 (13:15→17:00)
[2018-04-03] MEDS: Potassium Chloride 20 MEQ, Lidocaine 1% 2 ML in Sodium Chloride 0.9% 100 ML IV SCH ×2 (14:32→17:04)
[2018-04-03] MEDS ORDERED: Loperamide 2 MG Cap PO PRN (14:43)
--- NOTE | 2018-04-03 14:56 | PCM.PN ---
- General Info Date of Service: 04/03/18 Subjective Update: Mr. Silva is status post placement of a PEG feeding tube yesterday. Plan is to proceed with initiation of tube feedings today. Is very sleepy and lethargic when I saw him today, unable to provide meaningful history concerning symptoms or review of systems. Respiratory status has been stable and he has remained afebrile. - Patient Data Vitals - Most Recent: Last Vital Signs Temp 98.4 F 04/03/18 11:00 Pulse 92 04/03/18 11:00 Resp 18 04/03/18 11:00 BP 126/56 L 04/03/18 07:00 Pulse Ox 94 L 04/03/18 11:00 Weight - Most Recent: 171 lb 3.199 oz I&O - Last 24 Hours: Intake & Output 04/02/18 04/03/18 04/03/18 22:59 06:59 14:59 Intake Total 1116 1117 Output Total 150 750 Balance 966 367 Lab Results Last 24 Hours: Laboratory Results - last 24 hr 04/03/18 04/03/18 Range/Units 07:37 08:43 Sodium 152 H (140-148) mmol/L Potassium 3.0 L (3.6-5.2) mmol/L Chloride 114 H (100-108) mmol/L Carbon Dioxide 30 (21-32) mmol/L Anion Gap 11.0 (5.0-14.0) mmol/L BUN 17 (7-18) mg/dL Creatinine 1.0 (0.8-1.3) mg/dL Est Cr Clr Drug Dosing 59.53 mL/min Estimated GFR (MDRD) > 60 (>60) Glucose 128 H (74-106) mg/dL Calcium 7.2 L (8.5-10.1) mg/dL Phosphorus 3.0 (2.5-4.9) mg/dL Magnesium 3.4 H (1.8-2.4) mg/dL Med Orders - Current: Current Medications Acetaminophen (Tylenol) 650 mg RECTAL Q4H PRN PRN Reason: Fever Acetaminophen (Tylenol) 650 mg PO Q4H PRN PRN Reason: Pain/Fever Last Admin: 04/01/18 00:59 Dose: 650 mg Albuterol (Proventil Neb Soln) 2.5 mg NEB Q4H PRN PRN Reason: Dyspnea Albuterol/Ipratropium (Duoneb 3.0-0.5 Mg/3 Ml) 3 ml NEB QIDRT [facility] Last Admin: 04/03/18 10:58 Dose: 3 ml Dimethicone/Zinc Oxide (Rash Relief-Zinc Oxide [place]) 0 gm TOP ASDIRECTED PRN PRN Reason: Rash Last Admin: 03/28/18 16:55 Dose: 1 spray Heparin Sodium (Porcine) (Heparin Lock Flush 100 Units/Ml) 500 units FLUSH ASDIRECTED PRN PRN Reason: IV Use Last Admin: 03/28/18 14:38 Dose: 500 units Dextrose/Sodium Chloride (Dextrose 5%-1/2 Ns) 1,000 mls @ 80 mls/hr IV ASDIRECTED [facility] Last Admin: 04/03/18 06:40 Dose: 80 mls/hr Magnesium Sulfate 2 gm/ Premix 50 mls @ 25 mls/hr IV Q6H [facility] Stop: 04/05/18 07:59 Last Admin: 04/03/18 12:11 Dose: 25 mls/hr Potassium Chloride 20 meq/Lidocaine HCl 2 ml/ Sodium Chloride 112 mls @ 56 mls/ hr IV Q2H [facility] Stop: 04/03/18 17:59 Last Admin: 04/03/18 14:32 Dose: 56 mls/hr Loperamide HCl (Imodium) 2 mg PO ASDIRECTED PRN PRN Reason: DIARRHEA Melatonin (Melatonin) 9 mg PO BEDTIME [facility] Last Admin: 04/03/18 00:17 Dose: 9 mg Nystatin (Mycostatin) 5 ml PO QID [facility] Last Admin: 04/03/18 09:45 Dose: 5 ml Oxycodone HCl (Oxycodone) 5 mg PO Q4H PRN PRN Reason: Pain (moderate 4-6) Last Admin: 04/01/18 00:59 Dose: 5 mg Pantoprazole Sodium (Protonix) 40 mg PO ACBREAKFAST [facility] Last Admin: 04/03/18 08:42 Dose: 40 mg Potassium Chloride (Klor-Con M20) 40 meq PO ONETIME ONE Stop: 04/03/18 17:01 Discontinued Medications Albuterol/Ipratropium (Duoneb 3.0-0.5 Mg/3 Ml) 3 ml NEB Q4H PRN PRN Reason: Dyspnea Dexamethasone (Dexamethasone) Confirm Administered Dose 4 mg .ROUTE .STK-MED ONE Stop: 03/18/18 19:48 Epinephrine HCl (Adrenalin) Confirm Administered Dose 1 mg .ROUTE .STK-MED ONE Stop: 03/18/18 21:07 Fentanyl (Sublimaze) Confirm Administered Dose 250 mcg .ROUTE .STK-MED ONE Stop: 03/18/18 19:48 Fentanyl (Sublimaze) Confirm Administered Dose 250 mcg .ROUTE .STK-MED ONE Stop: 04/02/18 12:59 Furosemide (Lasix) 20 mg IVPUSH ONETIME ONE Stop: 03/23/18 09:46 Last Admin: 03/23/18 10:18 Dose: 20 mg Furosemide (Lasix) 20 mg IVPUSH NOW ONE Stop: 03/25/18 10:01 Last Admin: 03/25/18 10:17 Dose: 20 mg Furosemide (Lasix) 20 mg IVPUSH ONETIME ONE Stop: 03/26/18 09:16 Last Admin: 03/26/18 09:10 Dose: 20 mg Furosemide (Lasix) 20 mg IVPUSH ONETIME ONE Stop: 03/26/18 16:01 Last Admin: 03/26/18 18:28 Dose: Not Given Furosemide (Lasix) 20 mg IVPUSH NOW ONE Stop: 03/27/18 10:01 Last Admin: 03/27/18 10:26 Dose: 20 mg Furosemide (Lasix) 20 mg IVPUSH ONETIME ONE Stop: 03/30/18 13:11 Last Admin: 03/30/18 13:36 Dose: 20 mg Furosemide (Lasix) 20 mg IVPUSH NOW ONE Stop: 03/31/18 11:55 Last Admin: 03/31/18 13:04 Dose: 20 mg Furosemide (Lasix) 20 mg IVPUSH NOW ONE Stop: 04/01/18 12:05 Last Admin: 04/01/18 12:43 Dose: 20 mg Furosemide (Lasix) 20 mg IVPUSH NOW ONE Stop: 04/02/18 15:46 Last Admin: 04/02/18 15:53 Dose: 20 mg Furosemide (Lasix) 40 mg IVPUSH NOW ONE Stop: 04/03/18 09:01 Last Admin: 04/03/18 09:45 Dose: 40 mg Glycopyrrolate (Robinul) Confirm Administered Dose 1 mg .ROUTE .STK-MED ONE Stop: 03/18/18 19:48 Heparin Sodium (Porcine) (Heparin Sodium) Confirm Administered Dose 5,000 units .ROUTE .K-MED ONE Stop: 03/18/18 19:51 Heparin Sodium (Porcine) (Heparin Lock Flush 100 Units/Ml) Confirm Administered Dose 500 units .ROUTE .STK-MED ONE Stop: 03/22/18 12:17 Last Admin: 03/22/18 12:30 Dose: Not Given Heparin Sodium (Porcine) (Heparin Sodium) Confirm Administered Dose 5,000 units .ROUTE .STK-MED ONE Stop: 03/24/18 19:52 Last Admin: 03/24/18 20:33 Dose: 5,000 units Hydrocortisone Sodium Succinate (Solu-Cortef) 100 mg IVPUSH Q12H [facility] Last Admin: 03/28/18 20:15 Dose: 100 mg Hydrocortisone Sodium Succinate (Solu-Cortef) 100 mg IVPUSH DAILY [facility] Last Admin: 03/30/18 13:39 Dose: Not Given Hydromorphone HCl (Dilaudid) 0.5 mg IVPUSH ONETIME ONE Stop: 03/18/18 17:43 Last Admin: 03/18/18 17:47 Dose: 0.5 mg Hydromorphone HCl (Dilaudid) 1 mg IVPUSH ONETIME ONE Stop: 03/18/18 18:18 Last Admin: 03/18/18 18:27 Dose: 1 mg Sodium Chloride (Normal Saline) 1,000 mls @ 1,000 mls/hr IV ASDIRECTED [facility] Last Admin: 03/18/18 17:47 Dose: 1,000 mls/hr Sodium Chloride (Normal Saline) 1,000 mls @ 999 mls/hr IV ASDIRECTED [facility] Last Admin: 03/18/18 19:31 Dose: 999 mls/hr Meropenem 500 mg/ Sodium (Chloride) 50 mls @ 100 mls/hr IV ONETIME ONE Stop: 03/18/18 19:09 Last Admin: 03/18/18 19:01 Dose: 100 mls/hr Sodium Chloride (Normal Saline) Confirm Administered Dose 50 mls @ as directed .ROUTE .STK-MED ONE Stop: 03/18/18 19:40 Last Admin: 03/18/18 20:19 Dose: Not Given Aztreonam 2 gm/ Sodium (Chloride) 50 mls @ 100 mls/hr IV ONETIME ONE Stop: 03/18/18 20:01 Last Admin: 03/18/18 20:44 Dose: 100 mls/hr Meropenem 500 mg/ Sodium (Chloride) 50 mls @ 100 mls/hr IV ONETIME ONE Stop: 03/18/18 20:00 Last Admin: 03/18/18 19:40 Dose: 100 mls/hr Sodium Chloride (Normal Saline) Confirm Administered Dose 250 mls @ as directed .ROUTE .[facility] ONE Stop: 03/18/18 19:59 Lactated Ringer's (Ringers, Lactated) Confirm Administered Dose 1,000 mls @ as directed .ROUTE .[facility]-MED ONE Stop: 03/18/18 19:59 Sodium Chloride (Normal Saline) Confirm Administered Dose 500 mls @ as directed .ROUTE .[facility] ONE Stop: 03/18/18 19:59 Norepinephrine Bitartrate 8 mg (/ Dextrose/Water) 258 mls @ 3.87 mls/hr IV TITRATE [facility]; Protocol Last Admin: 03/19/18 11:45 Dose: 12 mcg/min, 23.22 mls/hr Lactated Ringer's (Ringers, Lactated) Confirm Administered Dose 1,000 mls @ as [facility] Stop: 03/18/18 21:42 Propofol (Diprivan 100 Ml) 100 mls @ 2.082 mls/hr IV TITRATE [facility]; Protocol Last Titration: 03/27/18 06:35 Dose: 10 mcg/kg/min, 4.164 mls/hr Aztreonam 1 gm/ Sodium (Chloride) 50 mls @ 100 mls/hr IV Q8H [facility] Last Admin: 03/19/18 05:29 Dose: 100 mls/hr Potassium Chloride/Dextrose/Sod Cl (D5 1/2 Ns W/ 20 Meq/L Kcl) 1,000 mls @ 150 mls/hr IV ASDIRECTED [facility] Last Admin: 03/18/18 23:11 Dose: 150 mls/hr Meropenem 1 gm/ Sodium (Chloride) 50 mls @ 100 mls/hr IV Q12H [facility] Stop: 03/29/18 22:00 Last Admin: 03/29/18 20:10 Dose: 100 mls/hr Lactated Ringer's (Ringers, Lactated) 1,000 mls @ 500 mls/hr IV ASDIRECTED [facility] Last Admin: 03/19/18 01:23 Dose: 500 mls/hr Vasopressin 100 units/ (Dextrose/Water) 255 mls @ 1.53 mls/hr IV TITRATE [facility]; Protocol Stop: 03/21/18 13:00 Last Titration: 03/21/18 11:03 Dose: 0.02 units/min, 3.06 mls/hr Lactated Ringer's (Ringers, Lactated) 1,000 mls @ 500 mls/hr IV BOLUS [facility] Stop: 03/19/18 05:29 Last Admin: 03/19/18 04:02 Dose: 500 mls/hr Aztreonam/Dextrose 1 gm/ (Premix) 50 mls @ 100 mls/hr IV Q8H [facility] Last Admin: 03/28/18 05:26 Dose: 100 mls/hr Lactated Ringer's (Ringers, Lactated) 1,000 mls @ 500 mls/hr IV .BOLUS ONE Stop: 03/19/18 14:59 Last Admin: 03/19/18 14:27 Dose: 500 mls/hr Lactated Ringer's (Ringers, Lactated) 1,000 mls @ 150 mls/hr IV ASDIRECTED [facility] Last Admin: 03/21/18 11:53 Dose: 150 mls/hr Norepinephrine Bitartrate 8 mg (/ Dextrose/Water) 250 mls @ 3.75 mls/hr IV TITRATE [facility]; Protocol Last Titration: 03/27/18 09:04 Dose: 4 mcg/min, 7.5 mls/hr Magnesium Sulfate 2 gm/ Premix 50 mls @ 25 mls/hr IV Q6H [facility] Stop: 03/20/18 17:59 Last Admin: 03/20/18 16:30 Dose: 25 mls/hr Vancomycin HCl 1.25 gm/ Sodium (Chloride) 250 mls @ 170 mls/hr IV Q24H [facility] Last Admin: 03/22/18 10:06 Dose: 170 mls/hr Vasopressin 40 units/ Dextrose (/Water) 100 mls @ 3 mls/hr IV TITRATE [facility]; Protocol Last Titration: 03/23/18 01:00 Dose: 0 units/min, 0 mls/hr Potassium Chloride 20 meq/ (Premix) 100 mls @ 50 mls/hr IV Q2H [facility] Stop: 03/21/18 22:59 Last Admin: 03/21/18 22:20 Dose: 50 mls/hr Potassium Chloride 20 meq/ (Premix) 100 mls @ 50 mls/hr IV Q2H [facility] Stop: 03/22/18 12:59 Last Admin: 03/22/18 11:30 Dose: 50 mls/hr Potassium Chloride 20 meq/ (Premix) 100 mls @ 50 mls/hr IV Q2H [facility] Stop: 03/22/18 17:29 Last Admin: 03/22/18 16:13 Dose: 50 mls/hr Potassium Chloride (Kcl 20 Meq In Water 100 Ml) 100 mls @ 50 mls/hr IV Q2H [facility] Stop: 03/23/18 01:59 Last Admin: 03/23/18 00:53 Dose: 50 mls/hr Potassium Chloride 40 meq/ (Premix) 100 mls @ 25 mls/hr IV ONETIME ONE Stop: 03/23/18 14:29 Last Admin: 03/23/18 10:31 Dose: 25 mls/hr Vancomycin HCl 1.4 gm/ Sodium (Chloride) 250 mls @ 170 mls/hr IV Q24H [facility] Last Admin: 03/24/18 11:13 Dose: 170 mls/hr Multivitamins/Minerals 10 ml/Chromium/Copper/Manganese/Seleni/Zn 1 ml/ Amino Ac/ Electrol/Dextrose/Calcium 1,011 mls @ 75 mls/hr IV .BY DURATION [facility] Last Admin: 03/25/18 22:34 Dose: 75 mls/hr Amino Ac/Electrol/Dextrose/Calcium (Clinimix E 5/15) 1,000 mls @ 75 mls/hr IV .BY DURATION [facility] Last Admin: 03/25/18 08:11 Dose: 75 mls/hr Vasopressin 100 units/ (Dextrose/Water) 255 mls @ 1.53 mls/hr IV TITRATE [facility]; Protocol Last Titration: 03/25/18 11:51 Dose: 0 units/min, 0 mls/hr Potassium Chloride 20 meq/ (Premix) 100 mls @ 50 mls/hr IV Q2H [facility] Stop: 03/24/18 13:59 Last Admin: 03/24/18 12:13 Dose: 50 mls/hr Multivitamins/Minerals 10 ml/Chromium/Copper/Manganese/Seleni/Zn 1 ml/ Amino Ac/ Electrol/Dextrose/Calcium 1,011 mls @ 75 mls/hr IV .BY DURATION [facility] Last Admin: 03/29/18 06:48 Dose: 75 mls/hr Amino Ac/Electrol/Dextrose/Calcium (Clinimix E 5/15) 1,000 mls @ 75 mls/hr IV .BY DURATION [facility] Last Admin: 03/29/18 20:12 Dose: 75 mls/hr Heparin Sodium (Porcine) 5,000 (units/ Sodium Chloride) 501 mls @ 5 mls/hr IV ASDIRECTED [facility] Last Admin: 03/27/18 12:50 Dose: 5 mls/hr Sodium Chloride (Normal Saline) 1,000 mls @ 50 mls/hr IV ASDIRECTED [facility] Last Admin: 03/30/18 13:36 Dose: 50 mls/hr Dextrose/Sodium Chloride (Dextrose 5%-1/2 Ns) 1,000 mls @ 75 mls/hr IV ASDIRECTED [facility] Last Admin: 03/31/18 23:53 Dose: 75 mls/hr Albumin Human (Albumin 25%) 25 gm in 100 mls @ 25 mls/hr IV Q24H [facility] Stop: 04/02/18 12:59 Last Admin: 04/01/18 08:13 Dose: 25 mls/hr Potassium Phosphate 20 mmole/ (Sodium Chloride) 256.6667 mls @ 85 mls/hr IV Q3H [facility] Stop: 04/01/18 18:59 Last Admin: 04/01/18 18:37 Dose: 85 mls/hr Cefazolin Sodium/Dextrose 2 gm (/ Premix) 50 mls @ 100 mls/hr IV ONCALL ONE Stop: 04/02/18 11:59 Last Admin: 04/02/18 13:59 Dose: 100 mls/hr Potassium Acetate 20 meq/ (Sodium Chloride) 110 mls @ 55 mls/hr IV Q2H [facility] Stop: 04/02/18 11:59 Last Admin: 04/02/18 10:10 Dose: 55 mls/hr Albumin Human (Albumin 25%) 25 gm in 100 mls @ 25 mls/hr IV ONETIME ONE Stop: 04/02/18 17:59 Last Admin: 04/02/18 15:30 Dose: 25 mls/hr Insulin Human Lispro (Humalog) 0 unit SUBCUT Q6H [facility]; Protocol Last Admin: 03/30/18 16:32 Dose: Not Given Insulin Human Lispro (Humalog) 0 unit SUBCUT Q6H [facility]; Protocol Last Admin: 03/31/18 03:52 Dose: Not Given Insulin Human Lispro (Humalog) 0 unit SUBCUT QIDACANDBED [facility]; Protocol Stop: 04/12/18 11:01 Last Admin: 03/31/18 13:17 Dose: Not Given Meropenem (Merrem) Confirm Administered Dose 500 mg .ROUTE .STK-MED ONE Stop: 03/18/18 19:40 Last Admin: 03/18/18 20:19 Dose: Not Given Midazolam HCl (Versed 1 Mg/Ml) Confirm Administered Dose 2 mg .ROUTE .STK-MED ONE Stop: 04/02/18 12:59 Morphine Sulfate (Morphine) 4 mg IVPUSH Q2H PRN PRN Reason: Pain Last Admin: 03/29/18 07:34 Dose: 4 mg Neostigmine Methylsulfate (Neostigmine) Confirm Administered Dose 5 mg .ROUTE .STK-MED ONE Stop: 03/18/18 19:48 Non-Formulary Medication (Total Parenteral Nutrition, Central) 1,000 ml .XX .Continue Order [facility]; Protocol Stop: 03/24/18 11:31 Non-Formulary Medication (Total Parenteral Nutrition, Central) 1,000 ml .XX .Continue Order [facility]; Protocol Non-Formulary Medication (Total Parenteral Nutrition, Central) 1,000 ml .XX .Continue Order [facility]; Protocol Non-Formulary Medication (Total Parenteral Nutrition, Central) 1,000 ml .XX .Continue Order [facility]; Protocol Stop: 03/28/18 12:00 Ondansetron HCl (Zofran) 4 mg IVPUSH ONETIME ONE Stop: 03/18/18 18:18 Last Admin: 03/18/18 18:27 Dose: 4 mg Ondansetron HCl (Zofran) Confirm Administered Dose 4 mg .ROUTE .STK-MED ONE Stop: 03/18/18 19:48 Pantoprazole Sodium (Protonix Iv) 40 mg IVPUSH DAILY [facility] Last Admin: 03/28/18 08:34 Dose: 40 mg Phenylephrine HCl (Isaías-Synephrine) Confirm Administered Dose 10 mg .ROUTE .STK- MED ONE Stop: 03/18/18 20:05 Potassium Chloride (Klor-Con M20) 40 meq PO ONETIME ONE Stop: 04/03/18 13:16 Last Admin: 04/03/18 14:33 Dose: 40 meq Prednisone (Prednisone) 20 mg PO WITHBREAKFAST [facility] Last Admin: 03/30/18 08:59 Dose: 20 mg Propofol (Diprivan 20 Ml) Confirm Administered Dose 200 mg .ROUTE .STK-MED ONE Stop: 03/18/18 19:48 Propofol (Diprivan 20 Ml) Confirm Administered Dose 200 mg .ROUTE .STK-MED ONE Stop: 04/02/18 12:59 Rocuronium [place] (Zemuron) Confirm Administered Dose 50 mg .ROUTE .STK-MED ONE Stop: 03/18/18 19:48 Succinylcholine Chloride (Quelicin) Confirm Administered Dose 200 mg .ROUTE .STK -MED ONE Stop: 03/18/18 19:48 Vancomycin HCl (Vancomycin) 1 gm IV .PHARMACY TO DOSE [facility] Stop: 03/21/18 16:00 - Exam Quality Assessment: Supplemental Oxygen, Central Line/PICC, DVT Prophylaxis General: Sedated, Lethargic Lungs: Clear to Auscultation, Normal Respiratory Effort Cardiovascular: Regular Rate, Regular Rhythm, No Murmurs GI/Abdominal Exam: Soft, Non-Tender, No Organomegaly, No Distention Extremities: Non-Tender, Pedal Edema - Problem List Review Problem List Initiated/Reviewed/Updated: Yes - My Orders Last 24 Hours: My Active Orders 04/03/18 14:00 Potassium Chloride 20 meq Lidocaine 1% [Xylocaine 1%] 2 ml Sodium Chloride 0.9 % [Normal Saline] 100 ml IV Q2H 04/03/18 17:00 Potassium Chloride [Klor-Con M20] 40 meq PO ONETIME ONE 04/03/18 21:00 POTASSIUM,K [CHEM] Stat 04/04/18 05:00 MAGNESIUM [CHEM] Timed - Plan Plan:: ASSESSMENT AND PLAN SIGMOID COLON PERFORATION RESULTING IN ACUTE ABDOMEN AND SEPTIC SHOCK - status post exploratory laparotomy with partial sigmoid colon resection and creation of a colostomy. Respiratory status is been stable, he is status post PEG feeding tube placement done yesterday by Dr. Linn -Initiate tube feedings today -And 10 you diet with pured food and nectar thickened liquids -Post operative surgical care per surgical team -Oxycodone as needed for pain -Saline lock IV SEPTIC SHOCK - resolved ACUTE HYPOXIC RESPIRATORY FAILURE - respiratory status has remained very stable over the past several days -Coughing, deep breathing and suctioning as able STEROID-INDUCED HYPERGLYCEMIA - resolved COPD - [id number] smoking history but no evidence for exacerbation at this time. -Nebulized albuterol as needed -Vigorous pulmonary toilet during the postoperative period ACUTE KIDNEY INJURY -resolved, renal function is back to baseline -Furosemide 40 mg IV today, reassess in a.m. -Assess volume status daily to see if he needs additional diuresis -Closely monitor urine output and renal function during the postoperative period HISTORY OF LUNG AND PROSTATE CARCINOMA - lung cancer felt to be stable, had been receiving treatment for management of prostate carcinoma prior to admission MAINTENANCE ISSUES -DVT prophylaxis; SCUDs -GI prophylaxis; Protonix 40 mg daily -Sorto catheter; removed -Nutrition;. Diet with nectar thickened liquids DISPOSITION - anticipate discharge to alf after the hospital stay
[2018-04-03] MEDS: Acetaminophen 325 MG Tab PO PRN (21:00)
[2018-04-03] MEDS: oxyCODONE 5 MG Tab PO PRN (21:00)
[2018-04-04] MEDS: Nystatin Susp 100,000 Unit/ML 5 ML UD Cup PO SCH ×3 (06:34→15:25)
[2018-04-04] MEDS: Pantoprazole 40 MG Tab.CR PO SCH (08:43)
[2018-04-04] MEDS ORDERED: Potassium Chloride 20 MEQ Tab.ER PO ONE ×2 (09:00→17:00)
[2018-04-04] MEDS: Albuterol/Ipratropium 3.0-0.5 MG/3 ML Neb Soln NEB SCH ×4 (09:42→21:45)
[2018-04-04] MEDS: oxyCODONE 5 MG Tab PO PRN (15:04)
[2018-04-04] MEDS ORDERED: Furosemide 40 MG/4 ML VIAL IVPUSH ONE (15:30)
--- NOTE | 2018-04-04 15:36 | PCM.PN ---
- General Info Date of Service: 04/04/18 Subjective Update: Mr. Silva has had difficulty tolerating tube feedings with symptoms of nausea and high residual volume. He otherwise has been comfortable denying significant shortness of breath or chest pain. Vital signs have been stable and he has remained afebrile. Functional Status: Reports: Pain Controlled, Urinating - Review of Systems General: Reports: Weakness. Denies: Fever, Chills Pulmonary: Reports: No Symptoms Cardiovascular: Reports: Edema. Denies: Chest Pain, Palpitations, Dyspnea on Exertion, Orthopnea, PND, Lightheadedness Gastrointestinal: Reports: No Symptoms - Patient Data Vitals - Most Recent: Last Vital Signs Temp 98.4 F 04/04/18 15:00 Pulse 74 04/04/18 15:24 Resp 18 04/04/18 15:00 BP 129/56 L 04/04/18 15:00 Pulse Ox 94 L 04/04/18 15:00 Weight - Most Recent: 171 lb 3.199 oz I&O - Last 24 Hours: Intake & Output 04/04/18 04/04/18 04/04/18 06:59 14:59 22:59 Intake Total 139 1128 Output Total 10 125 100 Balance 129 1003 -100 Lab Results Last 24 Hours: Laboratory Results - last 24 hr 04/03/18 04/04/18 04/04/18 Range/Units 21:02 04:00 04:00 WBC 18.1 H (4.5-11.0) K/uL RBC 3.46 L (4.30-5.90) M/uL Hgb 10.6 L (12.0-15.0) g/dL Hct 33.4 L (40.0-54.0) % MCV 97 (80-98) fL MCH 31 (27-31) pg MCHC 32 (32-36) % Plt Count 342 (150-400) K/uL Sodium 151 H (140-148) mmol/L Potassium 3.8 3.6 (3.6-5.2) mmol/L Chloride 114 H (100-108) mmol/L Carbon Dioxide 32 (21-32) mmol/L Anion Gap 8.6 (5.0-14.0) mmol/L BUN 16 (7-18) mg/dL Creatinine 1.2 (0.8-1.3) mg/dL Est Cr Clr Drug Dosing 49.61 mL/min Estimated GFR (MDRD) 59 L (>60) Glucose 123 H (74-106) mg/dL Calcium 7.4 L (8.5-10.1) mg/dL Magnesium (1.8-2.4) mg/dL Total Bilirubin 0.4 (0.2-1.0) mg/dL AST 21 (15-37) U/L ALT 27 (12-78) U/L Alkaline Phosphatase 87 (46-116) U/L Total Protein 5.3 L (6.4-8.2) g/dL Albumin 2.1 L (3.4-5.0) g/dL Globulin 3.2 (2.3-3.5) g/dL Albumin/Globulin Ratio 0.7 L (1.2-2.2) 04/04/18 Range/Units 05:00 WBC (4.5-11.0) K/uL RBC (4.30-5.90) M/uL Hgb (12.0-15.0) g/dL Hct (40.0-54.0) % MCV (80-98) fL MCH (27-31) pg MCHC (32-36) % Plt Count (150-400) K/uL Sodium (140-148) mmol/L Potassium (3.6-5.2) mmol/L Chloride (100-108) mmol/L Carbon Dioxide (21-32) mmol/L Anion Gap (5.0-14.0) mmol/L BUN (7-18) mg/dL Creatinine (0.8-1.3) mg/dL Est Cr Clr Drug Dosing mL/min Estimated GFR (MDRD) (>60) Glucose (74-106) mg/dL Calcium (8.5-10.1) mg/dL Magnesium 2.9 H (1.8-2.4) mg/dL Total Bilirubin (0.2-1.0) mg/dL AST (15-37) U/L ALT (12-78) U/L Alkaline Phosphatase (46-116) U/L Total Protein (6.4-8.2) g/dL Albumin (3.4-5.0) g/dL Globulin (2.3-3.5) g/dL Albumin/Globulin Ratio (1.2-2.2) Med Orders - Current: Current Medications Acetaminophen (Tylenol) 650 mg RECTAL Q4H PRN PRN Reason: Fever Acetaminophen (Tylenol) 650 mg PO Q4H PRN PRN Reason: Pain/Fever Last Admin: 04/03/18 21:00 Dose: 650 mg Albuterol (Proventil Neb Soln) 2.5 mg NEB Q4H PRN PRN Reason: Dyspnea Albuterol/Ipratropium (Duoneb 3.0-0.5 Mg/3 Ml) 3 ml NEB QIDRT [facility] Last Admin: 04/04/18 15:07 Dose: 3 ml Dimethicone/Zinc Oxide (Rash Relief-Zinc Oxide [place]) 0 gm TOP ASDIRECTED PRN PRN Reason: Rash Last Admin: 03/28/18 16:55 Dose: 1 spray Heparin Sodium (Porcine) (Heparin Lock Flush 100 Units/Ml) 500 units FLUSH ASDIRECTED PRN PRN Reason: IV Use Last Admin: 03/28/18 14:38 Dose: 500 units Loperamide HCl (Imodium) 2 mg PO ASDIRECTED PRN PRN Reason: DIARRHEA Melatonin (Melatonin) 9 mg PO BEDTIME [facility] Last Admin: 04/03/18 20:55 Dose: 9 mg Nystatin (Mycostatin) 5 ml PO QID [facility] Last Admin: 04/04/18 15:25 Dose: 5 ml Oxycodone HCl (Oxycodone) 5 mg PO Q4H PRN PRN Reason: Pain (moderate 4-6) Last Admin: 04/04/18 15:04 Dose: 5 mg Pantoprazole Sodium (Protonix) 40 mg PO ACBREAKFAST [facility] Last Admin: 04/04/18 08:43 Dose: 40 mg Potassium Chloride (Klor-Con M20) 40 meq PO ONETIME ONE Stop: 04/04/18 17:01 Discontinued Medications Albuterol/Ipratropium (Duoneb 3.0-0.5 Mg/3 Ml) 3 ml NEB Q4H PRN PRN Reason: Dyspnea Dexamethasone (Dexamethasone) Confirm Administered Dose 4 mg .ROUTE .STK-MED ONE Stop: 03/18/18 19:48 Epinephrine HCl (Adrenalin) Confirm Administered Dose 1 mg .ROUTE .STK-MED ONE Stop: 03/18/18 21:07 Fentanyl (Sublimaze) Confirm Administered Dose 250 mcg .ROUTE .STK-MED ONE Stop: 03/18/18 19:48 Fentanyl (Sublimaze) Confirm Administered Dose 250 mcg .ROUTE .STK-MED ONE Stop: 04/02/18 12:59 Furosemide (Lasix) 20 mg IVPUSH ONETIME ONE Stop: 03/23/18 09:46 Last Admin: 03/23/18 10:18 Dose: 20 mg Furosemide (Lasix) 20 mg IVPUSH NOW ONE Stop: 03/25/18 10:01 Last Admin: 03/25/18 10:17 Dose: 20 mg Furosemide (Lasix) 20 mg IVPUSH ONETIME ONE Stop: 03/26/18 09:16 Last Admin: 03/26/18 09:10 Dose: 20 mg Furosemide (Lasix) 20 mg IVPUSH ONETIME ONE Stop: 03/26/18 16:01 Last Admin: 03/26/18 18:28 Dose: Not Given Furosemide (Lasix) 20 mg IVPUSH NOW ONE Stop: 03/27/18 10:01 Last Admin: 03/27/18 10:26 Dose: 20 mg Furosemide (Lasix) 20 mg IVPUSH ONETIME ONE Stop: 03/30/18 13:11 Last Admin: 03/30/18 13:36 Dose: 20 mg Furosemide (Lasix) 20 mg IVPUSH NOW ONE Stop: 03/31/18 11:55 Last Admin: 03/31/18 13:04 Dose: 20 mg Furosemide (Lasix) 20 mg IVPUSH NOW ONE Stop: 04/01/18 12:05 Last Admin: 04/01/18 12:43 Dose: 20 mg Furosemide (Lasix) 20 mg IVPUSH NOW ONE Stop: 04/02/18 15:46 Last Admin: 04/02/18 15:53 Dose: 20 mg Furosemide (Lasix) 40 mg IVPUSH NOW ONE Stop: 04/03/18 09:01 Last Admin: 04/03/18 09:45 Dose: 40 mg Furosemide (Lasix) 40 mg IVPUSH NOW ONE Stop: 04/04/18 15:31 Glycopyrrolate (Robinul) Confirm Administered Dose 1 mg .ROUTE .STK-MED ONE Stop: 03/18/18 19:48 Heparin Sodium (Porcine) (Heparin Sodium) Confirm Administered Dose 5,000 units .ROUTE .STK-MED ONE Stop: 03/18/18 19:51 Heparin Sodium (Porcine) (Heparin Lock Flush 100 Units/Ml) Confirm Administered Dose 500 units .ROUTE .[facility] ONE Stop: 03/22/18 12:17 Last Admin: 03/22/18 12:30 Dose: Not Given Heparin Sodium (Porcine) (Heparin Sodium) Confirm Administered Dose 5,000 units .ROUTE .[facility] ONE Stop: 03/24/18 19:52 Last Admin: 03/24/18 20:33 Dose: 5,000 units Hydrocortisone Sodium Succinate (Solu-Cortef) 100 mg IVPUSH Q12H [facility] Last Admin: 03/28/18 20:15 Dose: 100 mg Hydrocortisone Sodium Succinate (Solu-Cortef) 100 mg IVPUSH DAILY [facility] Last Admin: 03/30/18 13:39 Dose: Not Given Hydromorphone HCl (Dilaudid) 0.5 mg IVPUSH ONETIME ONE Stop: 03/18/18 17:43 Last Admin: 03/18/18 17:47 Dose: 0.5 mg Hydromorphone HCl (Dilaudid) 1 mg IVPUSH ONETIME ONE Stop: 03/18/18 18:18 Last Admin: 03/18/18 18:27 Dose: 1 mg Sodium Chloride (Normal Saline) 1,000 mls @ 1,000 mls/hr IV ASDIRECTED [facility] Last Admin: 03/18/18 17:47 Dose: 1,000 mls/hr Sodium Chloride (Normal Saline) 1,000 mls @ 999 mls/hr IV ASDIRECTED [facility] Last Admin: 03/18/18 19:31 Dose: 999 mls/hr Meropenem 500 mg/ Sodium (Chloride) 50 mls @ 100 mls/hr IV ONETIME ONE Stop: 03/18/18 19:09 Last Admin: 03/18/18 19:01 Dose: 100 mls/hr Sodium Chloride (Normal Saline) Confirm Administered Dose 50 mls @ as directed .ROUTE .[facility] ONE Stop: 03/18/18 19:40 Last Admin: 03/18/18 20:19 Dose: Not Given Aztreonam 2 gm/ Sodium (Chloride) 50 mls @ 100 mls/hr IV ONETIME ONE Stop: 03/18/18 20:01 Last Admin: 03/18/18 20:44 Dose: 100 mls/hr Meropenem 500 mg/ Sodium (Chloride) 50 mls @ 100 mls/hr IV ONETIME ONE Stop: 03/18/18 20:00 Last Admin: 03/18/18 19:40 Dose: 100 mls/hr Sodium Chloride (Normal Saline) Confirm Administered Dose 250 mls @ as directed .ROUTE .[facility] ONE Stop: 03/18/18 19:59 Lactated Ringer's (Ringers, Lactated) Confirm Administered Dose 1,000 mls @ as directed .ROUTE .[facility] ONE Stop: 03/18/18 19:59 Sodium Chloride (Normal Saline) Confirm Administered Dose 500 mls @ as directed .ROUTE .[facility] ONE Stop: 03/18/18 19:59 Norepinephrine Bitartrate 8 mg (/ Dextrose/Water) 258 mls @ 3.87 mls/hr IV TITRATE [facility]; Protocol Last Admin: 03/19/18 11:45 Dose: 12 mcg/min, 23.22 mls/hr Lactated Ringer's (Ringers, Lactated) Confirm Administered Dose 1,000 mls @ as directed .ROUTE .[facility] ONE Stop: 03/18/18 21:42 Propofol (Diprivan 100 Ml) 100 mls @ 2.082 mls/hr IV TITRATE [facility]; Protocol Last Titration: 03/27/18 06:35 Dose: 10 mcg/kg/min, 4.164 mls/hr Aztreonam 1 gm/ Sodium (Chloride) 50 mls @ 100 mls/hr IV Q8H [facility] Last Admin: 03/19/18 05:29 Dose: 100 mls/hr Potassium Chloride/Dextrose/Sod Cl (D5 1/2 Ns W/ 20 Meq/L Kcl) 1,000 mls @ 150 mls/hr IV ASDIRECTED [facility] Last Admin: 03/18/18 23:11 Dose: 150 mls/hr Meropenem 1 gm/ Sodium (Chloride) 50 mls @ 100 mls/hr IV Q12H [facility] Stop: 03/29/18 22:00 Last Admin: 03/29/18 20:10 Dose: 100 mls/hr Lactated Ringer's (Ringers, Lactated) 1,000 mls @ 500 mls/hr IV ASDIRECTED [facility] Last Admin: 03/19/18 01:23 Dose: 500 mls/hr Vasopressin 100 units/ (Dextrose/Water) 255 mls @ 1.53 mls/hr IV TITRATE [facility]; Protocol Stop: 03/21/18 13:00 Last Titration: 03/21/18 11:03 Dose: 0.02 units/min, 3.06 mls/hr Lactated Ringer's (Ringers, Lactated) 1,000 mls @ 500 mls/hr IV BOLUS [facility] Stop: 03/19/18 05:29 Last Admin: 03/19/18 04:02 Dose: 500 mls/hr Aztreonam/Dextrose 1 gm/ (Premix) 50 mls @ 100 mls/hr IV Q8H [facility] Last Admin: 03/28/18 05:26 Dose: 100 mls/hr Lactated Ringer's (Ringers, Lactated) 1,000 mls @ 500 mls/hr IV .BOLUS ONE Stop: 03/19/18 14:59 Last Admin: 03/19/18 14:27 Dose: 500 mls/hr Lactated Ringer's (Ringers, Lactated) 1,000 mls @ 150 mls/hr IV ASDIRECTED [facility] Last Admin: 03/21/18 11:53 Dose: 150 mls/hr Norepinephrine Bitartrate 8 mg (/ Dextrose/Water) 250 mls @ 3.75 mls/hr IV TITRATE [facility]; Protocol Last Titration: 03/27/18 09:04 Dose: 4 mcg/min, 7.5 mls/hr Magnesium Sulfate 2 gm/ Premix 50 mls @ 25 mls/hr IV Q6H [facility] Stop: 03/20/18 17:59 Last Admin: 03/20/18 16:30 Dose: 25 mls/hr Vancomycin HCl 1.25 gm/ Sodium (Chloride) 250 mls @ 170 mls/hr IV Q24H [facility] Last Admin: 03/22/18 10:06 Dose: 170 mls/hr Vasopressin 40 units/ Dextrose (/Water) 100 mls @ 3 mls/hr IV TITRATE [facility]; Protocol Last Titration: 03/23/18 01:00 Dose: 0 units/min, 0 mls/hr Potassium Chloride 20 meq/ (Premix) 100 mls @ 50 mls/hr IV Q2H [facility] Stop: 03/21/18 22:59 Last Admin: 03/21/18 22:20 Dose: 50 mls/hr Potassium Chloride 20 meq/ (Premix) 100 mls @ 50 mls/hr IV Q2H [facility] Stop: 03/22/18 12:59 Last Admin: 03/22/18 11:30 Dose: 50 mls/hr Potassium Chloride 20 meq/ (Premix) 100 mls @ 50 mls/hr IV Q2H [facility] Stop: 03/22/18 17:29 Last Admin: 03/22/18 16:13 Dose: 50 mls/hr Potassium Chloride (Kcl 20 Meq In Water 100 Ml) 100 mls @ 50 mls/hr IV Q2H [facility] Stop: 03/23/18 01:59 Last Admin: 03/23/18 00:53 Dose: 50 mls/hr Potassium Chloride 40 meq/ (Premix) 100 mls @ 25 mls/hr IV ONETIME ONE Stop: 03/23/18 14:29 Last Admin: 03/23/18 10:31 Dose: 25 mls/hr Vancomycin HCl 1.4 gm/ Sodium (Chloride) 250 mls @ 170 mls/hr IV Q24H [facility] Last Admin: 03/24/18 11:13 Dose: 170 mls/hr Multivitamins/Minerals 10 ml/Chromium/Copper/Manganese/Seleni/Zn 1 ml/ Amino Ac/ Electrol/Dextrose/Calcium 1,011 mls @ 75 mls/hr IV .BY DURATION [facility] Last Admin: 03/25/18 22:34 Dose: 75 mls/hr Amino Ac/Electrol/Dextrose/Calcium (Clinimix E 515) 1,000 mls @ 75 mls/hr IV .BY DURATION [facility] Last Admin: 03/25/18 08:11 Dose: 75 mls/hr Vasopressin 100 units/ (Dextrose/Water) 255 mls @ 1.53 mls/hr IV TITRATE [facility]; Protocol Last Titration: 03/25/18 11:51 Dose: 0 units/min, 0 mls/hr Potassium Chloride 20 meq/ (Premix) 100 mls @ 50 mls/hr IV Q2H [facility] Stop: 03/24/18 13:59 Last Admin: 03/24/18 12:13 Dose: 50 mls/hr Multivitamins/Minerals 10 ml/Chromium/Copper/Manganese/Seleni/Zn 1 ml/ Amino Ac/ Electrol/Dextrose/Calcium 1,011 mls @ 75 mls/hr IV .BY DURATION [facility] Last Admin: 03/29/18 06:48 Dose: 75 mls/hr Amino Ac/Electrol/Dextrose/Calcium (Clinimix E 15) 1,000 mls @ 75 mls/hr IV .BY DURATION [facility] Last Admin: 03/29/18 20:12 Dose: 75 mls/hr Heparin Sodium (Porcine) 5,000 (units/ Sodium Chloride) 501 mls @ 5 mls/hr IV ASDIRECTED [facility] Last Admin: 03/27/18 12:50 Dose: 5 mls/hr Sodium Chloride (Normal Saline) 1,000 mls @ 50 mls/hr IV ASDIRECTED [facility] Last Admin: 03/30/18 13:36 Dose: 50 mls/hr Dextrose/Sodium Chloride (Dextrose 5%-1/2 Ns) 1,000 mls @ 75 mls/hr IV ASDIRECTED [facility] Last Admin: 03/31/18 23:53 Dose: 75 mls/hr Albumin Human (Albumin 25%) 25 gm in 100 mls @ 25 mls/hr IV Q24H [facility] Stop: 04/02/18 12:59 Last Admin: 04/01/18 08:13 Dose: 25 mls/hr Potassium Phosphate 20 mmole/ (Sodium Chloride) 256.6667 mls @ 85 mls/hr IV Q3H [facility] Stop: 04/01/18 18:59 Last Admin: 04/01/18 18:37 Dose: 85 mls/hr Dextrose/Sodium Chloride (Dextrose 5%-1/2 Ns) 1,000 mls @ 80 mls/hr IV ASDIRECTED [facility] Last Admin: 04/03/18 06:40 Dose: 80 mls/hr Cefazolin Sodium/Dextrose 2 gm (/ Premix) 50 mls @ 100 mls/hr IV ONCALL ONE Stop: 04/02/18 11:59 Last Admin: 04/02/18 13:59 Dose: 100 mls/hr Potassium Acetate 20 meq/ (Sodium Chloride) 110 mls @ 55 mls/hr IV Q2H [facility] Stop: 04/02/18 11:59 Last Admin: 04/02/18 10:10 Dose: 55 mls/hr Magnesium Sulfate 2 gm/ Premix 50 mls @ 25 mls/hr IV Q6H [facility] Stop: 04/05/18 07:59 Last Admin: 04/03/18 12:11 Dose: 25 mls/hr Albumin Human (Albumin 25%) 25 gm in 100 mls @ 25 mls/hr IV ONETIME ONE Stop: 04/02/18 17:59 Last Admin: 04/02/18 15:30 Dose: 25 mls/hr Potassium Chloride 20 meq/Lidocaine HCl 2 ml/ Sodium Chloride 112 mls @ 56 mls/ hr IV Q2H [facility] Stop: 04/03/18 17:59 Last Admin: 04/03/18 17:04 Dose: 56 mls/hr Insulin Human Lispro (Humalog) 0 unit SUBCUT Q6H [facility]; Protocol Last Admin: 03/30/18 16:32 Dose: Not Given Insulin Human Lispro (Humalog) 0 unit SUBCUT Q6H [facility]; Protocol Last Admin: 03/31/18 03:52 Dose: Not Given Insulin Human Lispro (Humalog) 0 unit SUBCUT QIDACANDBED [facility]; Protocol Stop: 04/12/18 11:01 Last Admin: 03/31/18 13:17 Dose: Not Given Meropenem (Merrem) Confirm Administered Dose 500 mg .ROUTE .STK-MED ONE Stop: 03/18/18 19:40 Last Admin: 03/18/18 20:19 Dose: Not Given Midazolam HCl (Versed 1 Mg/Ml) Confirm Administered Dose 2 mg .ROUTE .STK-MED ONE Stop: 04/02/18 12:59 Morphine Sulfate (Morphine) 4 mg IVPUSH Q2H PRN PRN Reason: Pain Last Admin: 03/29/18 07:34 Dose: 4 mg Neostigmine Methylsulfate (Neostigmine) Confirm Administered Dose 5 mg .ROUTE .STK-MED ONE Stop: 03/18/18 19:48 Non-Formulary Medication (Total Parenteral Nutrition, Central) 1,000 ml .XX .Continue Order [facility]; Protocol Stop: 03/24/18 11:31 Non-Formulary Medication (Total Parenteral Nutrition, Central) 1,000 ml .XX .Continue Order [facility]; Protocol Non-Formulary Medication (Total Parenteral Nutrition, Central) 1,000 ml .XX .Continue Order [facility]; Protocol Non-Formulary Medication (Total Parenteral Nutrition, Central) 1,000 ml .XX .Continue Order [facility]; Protocol Stop: 03/28/18 12:00 Ondansetron HCl (Zofran) 4 mg IVPUSH ONETIME ONE Stop: 03/18/18 18:18 Last Admin: 03/18/18 18:27 Dose: 4 mg Ondansetron HCl (Zofran) Confirm Administered Dose 4 mg .ROUTE .STK-MED ONE Stop: 03/18/18 19:48 Pantoprazole Sodium (Protonix Iv) 40 mg IVPUSH DAILY [facility] Last Admin: 03/28/18 08:34 Dose: 40 mg Phenylephrine HCl (Isaías-Synephrine) Confirm Administered Dose 10 mg .ROUTE .STK- MED ONE Stop: 03/18/18 20:05 Potassium Chloride (Klor-Con M20) 40 meq PO ONETIME ONE Stop: 04/03/18 13:16 Last Admin: 04/03/18 14:33 Dose: 40 meq Potassium Chloride (Klor-Con M20) 40 meq PO ONETIME ONE Stop: 04/03/18 17:01 Last Admin: 04/03/18 20:55 Dose: 40 meq Potassium Chloride (Klor-Con M20) 40 meq PO ONETIME ONE Stop: 04/04/18 09:01 Last Admin: 04/04/18 09:34 Dose: 40 meq Prednisone (Prednisone) 20 mg PO WITHBREAKFAST [facility] Last Admin: 03/30/18 08:59 Dose: 20 mg Propofol (Diprivan 20 Ml) Confirm Administered Dose 200 mg .ROUTE .STK-MED ONE Stop: 03/18/18 19:48 Propofol (Diprivan 20 Ml) Confirm Administered Dose 200 mg .ROUTE .STK-MED ONE Stop: 04/02/18 12:59 Rocuronium Myrtle (Zemuron) Confirm Administered Dose 50 mg .ROUTE .STK-MED ONE Stop: 03/18/18 19:48 Succinylcholine Chloride (Quelicin) Confirm Administered Dose 200 mg .ROUTE .STK -MED ONE Stop: 03/18/18 19:48 Vancomycin HCl (Vancomycin) 1 gm IV .PHARMACY TO DOSE [facility] Stop: 03/21/18 16:00 - Exam Quality Assessment: Supplemental Oxygen, DVT Prophylaxis General: Alert, Oriented, Cooperative, No Acute Distress Lungs: Clear to Auscultation, Normal Respiratory Effort Cardiovascular: Regular Rate, Regular Rhythm, No Murmurs GI/Abdominal Exam: Soft, Non-Tender, No Organomegaly, No Distention Extremities: Non-Tender, Pedal Edema - Problem List Review Problem List Initiated/Reviewed/Updated: Yes - My Orders Last 24 Hours: My Active Orders 04/03/18 14:57 Convert IV to Saline Lock [OM.PC] Routine 04/04/18 17:00 Potassium Chloride [Klor-Con M20] 40 meq PO ONETIME ONE - Plan Plan:: ASSESSMENT AND PLAN SIGMOID COLON PERFORATION RESULTING IN ACUTE ABDOMEN AND SEPTIC SHOCK - status post exploratory laparotomy with partial sigmoid colon resection and creation of a colostomy. Respiratory status is been stable, he is status post PEG feeding tube placement by Dr. Linn. Difficulty tolerating tube feedings with symptoms of nausea -Continue tube feedings at a lower rate -Continue diet with pured food and nectar thickened liquids -Post operative surgical care per surgical team -Oxycodone as needed for pain -Saline lock IV SEPTIC SHOCK - resolved ACUTE HYPOXIC RESPIRATORY FAILURE - respiratory status has remained very stable over the past several days -Coughing, deep breathing and suctioning as able STEROID-INDUCED HYPERGLYCEMIA - resolved COPD - [id number] smoking history but no evidence for exacerbation at this time. -Nebulized albuterol as needed -Vigorous pulmonary toilet during the postoperative period ACUTE KIDNEY INJURY -resolved, renal function is back to baseline -Furosemide 40 mg IV today, reassess in a.m. -Assess volume status daily to see if he needs additional diuresis -Closely monitor urine output and renal function during the postoperative period HISTORY OF LUNG AND PROSTATE CARCINOMA - lung cancer felt to be stable, had been receiving treatment for management of prostate carcinoma prior to admission MAINTENANCE ISSUES -DVT prophylaxis; SCUDs -GI prophylaxis; Protonix 40 mg daily -Sorto catheter; removed -Nutrition;. Diet with nectar thickened liquids DISPOSITION - anticipate discharge to residential after the hospital stay
[2018-04-04] MEDS: Melatonin 3 MG Tab PO SCH (21:45)
[2018-04-04] MEDS: Acetaminophen 325 MG Tab PO PRN (21:46)
[2018-04-05] MEDS: Albuterol/Ipratropium 3.0-0.5 MG/3 ML Neb Soln NEB SCH ×4 (07:44→20:14)
[2018-04-05] MEDS: Pantoprazole 40 MG Tab.CR PO SCH (07:58)
[2018-04-05] MEDS ORDERED: Furosemide 40 MG/4 ML VIAL IVPUSH ONE (09:00)
[2018-04-05] MEDS ORDERED: Potassium Chloride 20 MEQ Tab.ER PO ONE ×2 (09:00→17:00)
--- NOTE | 2018-04-05 11:17 | PCM.PN ---
- General Info Date of Service: 04/05/18 Subjective Update: Mr. Silva has remained stable since yesterday although he continues to have some difficulty in tolerating tube feedings. Tube feedings were held overnight by Dr. Linn but will be resumed again today. Oral intake does seem to be improving as well as oral intake of supplements. Denies significant shortness of breath, vital signs have been stable and he has remained afebrile. Functional Status: Reports: Pain Controlled, Urinating - Review of Systems General: Reports: Weakness. Denies: Fever, Chills Pulmonary: Reports: Shortness of Breath. Denies: Cough, Sputum, Hemoptysis, Wheezing Cardiovascular: Reports: Dyspnea on Exertion. Denies: Chest Pain, Palpitations , Orthopnea, PND, Edema Gastrointestinal: Reports: Abdominal Pain, Difficulty Swallowing. Denies: Constipation, Diarrhea, Nausea, Vomiting - Patient Data Vitals - Most Recent: Last Vital Signs Temp 97.9 F 04/05/18 11:00 Pulse 80 04/05/18 11:00 Resp 18 04/05/18 11:00 BP 113/60 04/05/18 11:00 Pulse Ox 97 04/05/18 11:00 Weight - Most Recent: 171 lb 3.199 oz I&O - Last 24 Hours: Intake & Output 04/04/18 04/05/18 04/05/18 22:59 06:59 14:59 Intake Total 120 300 240 Output Total 325 350 Balance -205 -50 240 Lab Results Last 24 Hours: Laboratory Results - last 24 hr 04/05/18 04/05/18 Range/Units 04:00 04:00 WBC 14.4 H (4.5-11.0) K/uL RBC 3.15 L (4.30-5.90) M/uL Hgb 9.3 L (12.0-15.0) g/dL Hct 31.0 L (40.0-54.0) % MCV 98 (80-98) fL MCH 30 (27-31) pg MCHC 30 L (32-36) % Plt Count 279 (150-400) K/uL Sodium 151 H (140-148) mmol/L Potassium 3.9 (3.6-5.2) mmol/L Chloride 116 H (100-108) mmol/L Carbon Dioxide 30 (21-32) mmol/L Anion Gap 8.9 (5.0-14.0) mmol/L BUN 16 (7-18) mg/dL Creatinine 1.3 (0.8-1.3) mg/dL Est Cr Clr Drug Dosing 45.79 mL/min Estimated GFR (MDRD) 54 L (>60) Glucose 95 (74-106) mg/dL Calcium 7.0 L (8.5-10.1) mg/dL Phosphorus 2.6 (2.5-4.9) mg/dL Magnesium 2.2 (1.8-2.4) mg/dL Total Bilirubin 0.3 (0.2-1.0) mg/dL AST 16 (15-37) U/L ALT 23 (12-78) U/L Alkaline Phosphatase 77 (46-116) U/L Total Protein 4.9 L (6.4-8.2) g/dL Albumin 1.7 L (3.4-5.0) g/dL Globulin 3.2 (2.3-3.5) g/dL Albumin/Globulin Ratio 0.5 L (1.2-2.2) Med Orders - Current: Current Medications Acetaminophen (Tylenol) 650 mg RECTAL Q4H PRN PRN Reason: Fever Acetaminophen (Tylenol) 650 mg PO Q4H PRN PRN Reason: Pain/Fever Last Admin: 04/04/18 21:46 Dose: 650 mg Albuterol (Proventil Neb Soln) 2.5 mg NEB Q4H PRN PRN Reason: Dyspnea Albuterol/Ipratropium (Duoneb 3.0-0.5 Mg/3 Ml) 3 ml NEB QIDRT [facility] Last Admin: 04/05/18 11:12 Dose: 3 ml Dimethicone/Zinc Oxide (Rash Relief-Zinc Oxide [place]) 0 gm TOP ASDIRECTED PRN PRN Reason: Rash Last Admin: 03/28/18 16:55 Dose: 1 spray Heparin Sodium (Porcine) (Heparin Lock Flush 100 Units/Ml) 500 units FLUSH ASDIRECTED PRN PRN Reason: IV Use Last Admin: 03/28/18 14:38 Dose: 500 units Loperamide HCl (Imodium) 2 mg PO ASDIRECTED PRN PRN Reason: DIARRHEA Melatonin (Melatonin) 9 mg PO BEDTIME [facility] Last Admin: 04/04/18 21:45 Dose: 9 mg Oxycodone HCl (Oxycodone) 5 mg PO Q4H PRN PRN Reason: Pain (moderate 4-6) Last Admin: 04/04/18 15:04 Dose: 5 mg Pantoprazole Sodium (Protonix) 40 mg PO ACBREAKFAST [facility] Last Admin: 04/05/18 07:58 Dose: 40 mg Potassium Chloride (Klor-Con M20) 40 meq PO ONETIME ONE Stop: 04/05/18 17:01 Discontinued Medications Albuterol/Ipratropium (Duoneb 3.0-0.5 Mg/3 Ml) 3 ml NEB Q4H PRN PRN Reason: Dyspnea Dexamethasone (Dexamethasone) Confirm Administered Dose 4 mg .ROUTE .STK-MED ONE Stop: 03/18/18 19:48 Epinephrine HCl (Adrenalin) Confirm Administered Dose 1 mg .ROUTE .STK-MED ONE Stop: 03/18/18 21:07 Fentanyl (Sublimaze) Confirm Administered Dose 250 mcg .ROUTE .STK-MED ONE Stop: 03/18/18 19:48 Fentanyl (Sublimaze) Confirm Administered Dose 250 mcg .ROUTE .STK-MED ONE Stop: 04/02/18 12:59 Furosemide (Lasix) 20 mg IVPUSH ONETIME ONE Stop: 03/23/18 09:46 Last Admin: 03/23/18 10:18 Dose: 20 mg Furosemide (Lasix) 20 mg IVPUSH NOW ONE Stop: 03/25/18 10:01 Last Admin: 03/25/18 10:17 Dose: 20 mg Furosemide (Lasix) 20 mg IVPUSH ONETIME ONE Stop: 03/26/18 09:16 Last Admin: 03/26/18 09:10 Dose: 20 mg Furosemide (Lasix) 20 mg IVPUSH ONETIME ONE Stop: 03/26/18 16:01 Last Admin: 03/26/18 18:28 Dose: Not Given Furosemide (Lasix) 20 mg IVPUSH NOW ONE Stop: 03/27/18 10:01 Last Admin: 03/27/18 10:26 Dose: 20 mg Furosemide (Lasix) 20 mg IVPUSH ONETIME ONE Stop: 03/30/18 13:11 Last Admin: 03/30/18 13:36 Dose: 20 mg Furosemide (Lasix) 20 mg IVPUSH NOW ONE Stop: 03/31/18 11:55 Last Admin: 03/31/18 13:04 Dose: 20 mg Furosemide (Lasix) 20 mg IVPUSH NOW ONE Stop: 04/01/18 12:05 Last Admin: 04/01/18 12:43 Dose: 20 mg Furosemide (Lasix) 20 mg IVPUSH NOW ONE Stop: 04/02/18 15:46 Last Admin: 04/02/18 15:53 Dose: 20 mg Furosemide (Lasix) 40 mg IVPUSH NOW ONE Stop: 04/03/18 09:01 Last Admin: 04/03/18 09:45 Dose: 40 mg Furosemide (Lasix) 40 mg IVPUSH NOW ONE Stop: 04/04/18 15:31 Last Admin: 04/04/18 15:55 Dose: 40 mg Furosemide (Lasix) 40 mg IVPUSH NOW ONE Stop: 04/05/18 09:01 Last Admin: 04/05/18 10:15 Dose: 40 mg Glycopyrrolate (Robinul) Confirm Administered Dose 1 mg .ROUTE .STK-MED ONE Stop: 03/18/18 19:48 Heparin Sodium (Porcine) (Heparin Sodium) Confirm Administered Dose 5,000 units .ROUTE .STK-MED ONE Stop: 03/18/18 19:51 Heparin Sodium (Porcine) (Heparin Lock Flush 100 Units/Ml) Confirm Administered Dose 500 units .ROUTE .STK-MED ONE Stop: 03/22/18 12:17 Last Admin: 03/22/18 12:30 Dose: Not Given Heparin Sodium (Porcine) (Heparin Sodium) Confirm Administered Dose 5,000 units .ROUTE .STK-MED ONE Stop: 03/24/18 19:52 Last Admin: 03/24/18 20:33 Dose: 5,000 units Hydrocortisone Sodium Succinate (Solu-Cortef) 100 mg IVPUSH Q12H [facility] Last Admin: 03/28/18 20:15 Dose: 100 mg Hydrocortisone Sodium Succinate (Solu-Cortef) 100 mg IVPUSH DAILY [facility] Last Admin: 03/30/18 13:39 Dose: Not Given Hydromorphone HCl (Dilaudid) 0.5 mg IVPUSH ONETIME ONE Stop: 03/18/18 17:43 Last Admin: 03/18/18 17:47 Dose: 0.5 mg Hydromorphone HCl (Dilaudid) 1 mg IVPUSH ONETIME ONE Stop: 03/18/18 18:18 Last Admin: 03/18/18 18:27 Dose: 1 mg Sodium Chloride (Normal Saline) 1,000 mls @ 1,000 mls/hr IV ASDIRECTED [facility] Last Admin: 03/18/18 17:47 Dose: 1,000 mls/hr Sodium Chloride (Normal Saline) 1,000 mls @ 999 mls/hr IV ASDIRECTED [facility] Last Admin: 03/18/18 19:31 Dose: 999 mls/hr Meropenem 500 mg/ Sodium (Chloride) 50 mls @ 100 mls/hr IV ONETIME ONE Stop: 03/18/18 19:09 Last Admin: 03/18/18 19:01 Dose: 100 mls/hr Sodium Chloride (Normal Saline) Confirm Administered Dose 50 mls @ as directed .ROUTE .STK-MED ONE Stop: 03/18/18 19:40 Last Admin: 03/18/18 20:19 Dose: Not Given Aztreonam 2 gm/ Sodium (Chloride) 50 mls @ 100 mls/hr IV ONETIME ONE Stop: 03/18/18 20:01 Last Admin: 03/18/18 20:44 Dose: 100 mls/hr Meropenem 500 mg/ Sodium (Chloride) 50 mls @ 100 mls/hr IV ONETIME ONE Stop: 03/18/18 20:00 Last Admin: 03/18/18 19:40 Dose: 100 mls/hr Sodium Chloride (Normal Saline) Confirm Administered Dose 250 mls @ as directed .ROUTE .STK-MED ONE Stop: 03/18/18 19:59 Lactated Ringer's (Ringers, Lactated) Confirm Administered Dose 1,000 mls @ as directed .ROUTE .STK-MED ONE Stop: 03/18/18 19:59 Sodium Chloride (Normal Saline) Confirm Administered Dose 500 mls @ as directed .ROUTE .STK-MED ONE Stop: 03/18/18 19:59 Norepinephrine Bitartrate 8 mg (/ Dextrose/Water) 258 mls @ 3.87 mls/hr IV TITRATE [facility]; Protocol Last Admin: 03/19/18 11:45 Dose: 12 mcg/min, 23.22 mls/hr Lactated Ringer's (Ringers, Lactated) Confirm Administered Dose 1,000 mls @ as directed .ROUTE .STK-MED ONE Stop: 03/18/18 21:42 Propofol (Diprivan 100 Ml) 100 mls @ 2.082 mls/hr IV TITRATE [facility]; Protocol Last Titration: 03/27/18 06:35 Dose: 10 mcg/kg/min, 4.164 mls/hr Aztreonam 1 gm/ Sodium (Chloride) 50 mls @ 100 mls/hr IV Q8H [facility] Last Admin: 03/19/18 05:29 Dose: 100 mls/hr Potassium Chloride/Dextrose/Sod Cl (D5 1/2 Ns W/ 20 Meq/L Kcl) 1,000 mls @ 150 mls/hr IV ASDIRECTED [facility] Last Admin: 03/18/18 23:11 Dose: 150 mls/hr Meropenem 1 gm/ Sodium (Chloride) 50 mls @ 100 mls/hr IV Q12H [facility] Stop: 03/29/18 22:00 Last Admin: 03/29/18 20:10 Dose: 100 mls/hr Lactated Ringer's (Ringers, Lactated) 1,000 mls @ 500 mls/hr IV ASDIRECTED [facility] Last Admin: 03/19/18 01:23 Dose: 500 mls/hr Vasopressin 100 units/ (Dextrose/Water) 255 mls @ 1.53 mls/hr IV TITRATE [facility]; Protocol Stop: 03/21/18 13:00 Last Titration: 03/21/18 11:03 Dose: 0.02 units/min, 3.06 mls/hr Lactated Ringer's (Ringers, Lactated) 1,000 mls @ 500 mls/hr IV BOLUS [facility] Stop: 03/19/18 05:29 Last Admin: 03/19/18 04:02 Dose: 500 mls/hr Aztreonam/Dextrose 1 gm/ (Premix) 50 mls @ 100 mls/hr IV Q8H [facility] Last Admin: 03/28/18 05:26 Dose: 100 mls/hr Lactated Ringer's (Ringers, Lactated) 1,000 mls @ 500 mls/hr IV .BOLUS ONE Stop: 03/19/18 14:59 Last Admin: 03/19/18 14:27 Dose: 500 mls/hr Lactated Ringer's (Ringers, Lactated) 1,000 mls @ 150 mls/hr IV ASDIRECTED [facility] Last Admin: 03/21/18 11:53 Dose: 150 mls/hr Norepinephrine Bitartrate 8 mg (/ Dextrose/Water) 250 mls @ 3.75 mls/hr IV TITRATE [facility]; Protocol Last Titration: 03/27/18 09:04 Dose: 4 mcg/min, 7.5 mls/hr Magnesium Sulfate 2 gm/ Premix 50 mls @ 25 mls/hr IV Q6H [facility] Stop: 03/20/18 17:59 Last Admin: 03/20/18 16:30 Dose: 25 mls/hr Vancomycin HCl 1.25 gm/ Sodium (Chloride) 250 mls @ 170 mls/hr IV Q24H [facility] Last Admin: 03/22/18 10:06 Dose: 170 mls/hr Vasopressin 40 units/ Dextrose (/Water) 100 mls @ 3 mls/hr IV TITRATE [facility]; Protocol Last Titration: 03/23/18 01:00 Dose: 0 units/min, 0 mls/hr Potassium Chloride 20 meq/ (Premix) 100 mls @ 50 mls/hr IV Q2H [facility] Stop: 03/21/18 22:59 Last Admin: 03/21/18 22:20 Dose: 50 mls/hr Potassium Chloride 20 meq/ (Premix) 100 mls @ 50 mls/hr IV Q2H [facility] Stop: 03/22/18 12:59 Last Admin: 03/22/18 11:30 Dose: 50 mls/hr Potassium Chloride 20 meq/ (Premix) 100 mls @ 50 mls/hr IV Q2H [facility] Stop: 03/22/18 17:29 Last Admin: 03/22/18 16:13 Dose: 50 mls/hr Potassium Chloride (Kcl 20 Meq In Water 100 Ml) 100 mls @ 50 mls/hr IV Q2H [facility] Stop: 03/23/18 01:59 Last Admin: 03/23/18 00:53 Dose: 50 mls/hr Potassium Chloride 40 meq/ (Premix) 100 mls @ 25 mls/hr IV ONETIME ONE Stop: 03/23/18 14:29 Last Admin: 03/23/18 10:31 Dose: 25 mls/hr Vancomycin HCl 1.4 gm/ Sodium (Chloride) 250 mls @ 170 mls/hr IV Q24H [facility] Last Admin: 03/24/18 11:13 Dose: 170 mls/hr Multivitamins/Minerals 10 ml/Chromium/Copper/Manganese/Seleni/Zn 1 ml/ Amino Ac/ Electrol/Dextrose/Calcium 1,011 mls @ 75 mls/hr IV .BY DURATION [facility] Last Admin: 03/25/18 22:34 Dose: 75 mls/hr Amino Ac/Electrol/Dextrose/Calcium (Clinimix E 5/15) 1,000 mls @ 75 mls/hr IV .BY DURATION [facility] Last Admin: 03/25/18 08:11 Dose: 75 mls/hr Vasopressin 100 units/ (Dextrose/Water) 255 mls @ 1.53 mls/hr IV TITRATE [facility]; Protocol Last Titration: 03/25/18 11:51 Dose: 0 units/min, 0 mls/hr Potassium Chloride 20 meq/ (Premix) 100 mls @ 50 mls/hr IV Q2H [facility] Stop: 03/24/18 13:59 Last Admin: 03/24/18 12:13 Dose: 50 mls/hr Multivitamins/Minerals 10 ml/Chromium/Copper/Manganese/Seleni/Zn 1 ml/ Amino Ac/ Electrol/Dextrose/Calcium 1,011 mls @ 75 mls/hr IV .BY DURATION [facility] Last Admin: 03/29/18 06:48 Dose: 75 mls/hr Amino Ac/Electrol/Dextrose/Calcium (Clinimix E 5/15) 1,000 mls @ 75 mls/hr IV .BY DURATION [facility] Last Admin: 03/29/18 20:12 Dose: 75 mls/hr Heparin Sodium (Porcine) 5,000 (units/ Sodium Chloride) 501 mls @ 5 mls/hr IV ASDIRECTED [facility] Last Admin: 03/27/18 12:50 Dose: 5 mls/hr Sodium Chloride (Normal Saline) 1,000 mls @ 50 mls/hr IV ASDIRECTED [facility] Last Admin: 03/30/18 13:36 Dose: 50 mls/hr Dextrose/Sodium Chloride (Dextrose 5%-1/2 Ns) 1,000 mls @ 75 mls/hr IV ASDIRECTED [facility] Last Admin: 03/31/18 23:53 Dose: 75 mls/hr Albumin Human (Albumin 25%) 25 gm in 100 mls @ 25 mls/hr IV Q24H [facility] Stop: 04/02/18 12:59 Last Admin: 04/01/18 08:13 Dose: 25 mls/hr Potassium Phosphate 20 mmole/ (Sodium Chloride) 256.6667 mls @ 85 mls/hr IV Q3H [facility] Stop: 04/01/18 18:59 Last Admin: 04/01/18 18:37 Dose: 85 mls/hr Dextrose/Sodium Chloride (Dextrose 5%-1/2 Ns) 1,000 mls @ 80 mls/hr IV ASDIRECTED [facility] Last Admin: 04/03/18 06:40 Dose: 80 mls/hr Cefazolin Sodium/Dextrose 2 gm (/ Premix) 50 mls @ 100 mls/hr IV ONCALL ONE Stop: 04/02/18 11:59 Last Admin: 04/02/18 13:59 Dose: 100 mls/hr Potassium Acetate 20 meq/ (Sodium Chloride) 110 mls @ 55 mls/hr IV Q2H [facility] Stop: 04/02/18 11:59 Last Admin: 04/02/18 10:10 Dose: 55 mls/hr Magnesium Sulfate 2 gm/ Premix 50 mls @ 25 mls/hr IV Q6H [facility] Stop: 04/05/18 07:59 Last Admin: 04/03/18 12:11 Dose: 25 mls/hr Albumin Human (Albumin 25%) 25 gm in 100 mls @ 25 mls/hr IV ONETIME ONE Stop: 04/02/18 17:59 Last Admin: 04/02/18 15:30 Dose: 25 mls/hr Potassium Chloride 20 meq/Lidocaine HCl 2 ml/ Sodium Chloride 112 mls @ 56 mls/ hr IV Q2H [facility] Stop: 04/03/18 17:59 Last Admin: 04/03/18 17:04 Dose: 56 mls/hr Insulin Human Lispro (Humalog) 0 unit SUBCUT Q6H [facility]; Protocol Last Admin: 03/30/18 16:32 Dose: Not Given Insulin Human Lispro (Humalog) 0 unit SUBCUT Q6H [facility]; Protocol Last Admin: 03/31/18 03:52 Dose: Not Given Insulin Human Lispro (Humalog) 0 unit SUBCUT QIDACANDBED [facility]; Protocol Stop: 04/12/18 11:01 Last Admin: 03/31/18 13:17 Dose: Not Given Meropenem (Merrem) Confirm Administered Dose 500 mg .ROUTE .STK-MED ONE Stop: 03/18/18 19:40 Last Admin: 03/18/18 20:19 Dose: Not Given Midazolam HCl (Versed 1 Mg/Ml) Confirm Administered Dose 2 mg .ROUTE .STK-MED ONE Stop: 04/02/18 12:59 Morphine Sulfate (Morphine) 4 mg IVPUSH Q2H PRN PRN Reason: Pain Last Admin: 03/29/18 07:34 Dose: 4 mg Neostigmine Methylsulfate (Neostigmine) Confirm Administered Dose 5 mg .ROUTE .STK-MED ONE Stop: 03/18/18 19:48 Non-Formulary Medication (Total Parenteral Nutrition, Central) 1,000 ml .XX .Continue Order [facility]; Protocol Stop: 03/24/18 11:31 Non-Formulary Medication (Total Parenteral Nutrition, Central) 1,000 ml .XX .Continue Order [facility]; Protocol Non-Formulary Medication (Total Parenteral Nutrition, Central) 1,000 ml .XX .Continue Order [facility]; Protocol Non-Formulary Medication (Total Parenteral Nutrition, Central) 1,000 ml .XX .Continue Order [facility]; Protocol Stop: 03/28/18 12:00 Nystatin (Mycostatin) 5 ml PO QID [facility] Last Admin: 04/04/18 15:25 Dose: 5 ml Ondansetron HCl (Zofran) 4 mg IVPUSH ONETIME ONE Stop: 03/18/18 18:18 Last Admin: 03/18/18 18:27 Dose: 4 mg Ondansetron HCl (Zofran) Confirm Administered Dose 4 mg .ROUTE .STK-MED ONE Stop: 03/18/18 19:48 Pantoprazole Sodium (Protonix Iv) 40 mg IVPUSH DAILY [facility] Last Admin: 03/28/18 08:34 Dose: 40 mg Phenylephrine HCl (Isaías-Synephrine) Confirm Administered Dose 10 mg .ROUTE .STK- MED ONE Stop: 03/18/18 20:05 Potassium Chloride (Klor-Con M20) 40 meq PO ONETIME ONE Stop: 04/03/18 13:16 Last Admin: 04/03/18 14:33 Dose: 40 meq Potassium Chloride (Klor-Con M20) 40 meq PO ONETIME ONE Stop: 04/03/18 17:01 Last Admin: 04/03/18 20:55 Dose: 40 meq Potassium Chloride (Klor-Con M20) 40 meq PO ONETIME ONE Stop: 04/04/18 09:01 Last Admin: 04/04/18 09:34 Dose: 40 meq Potassium Chloride (Klor-Con M20) 40 meq PO ONETIME ONE Stop: 04/04/18 17:01 Last Admin: 04/04/18 17:08 Dose: 40 meq Potassium Chloride (Klor-Con M20) 40 meq PO ONETIME ONE Stop: 04/05/18 09:01 Last Admin: 04/05/18 10:14 Dose: 40 meq Prednisone (Prednisone) 20 mg PO WITHBREAKFAST [facility] Last Admin: 03/30/18 08:59 Dose: 20 mg Propofol (Diprivan 20 Ml) Confirm Administered Dose 200 mg .ROUTE .STK-MED ONE Stop: 03/18/18 19:48 Propofol (Diprivan 20 Ml) Confirm Administered Dose 200 mg .ROUTE .STK-MED ONE Stop: 04/02/18 12:59 Rocuronium [place] (Zemuron) Confirm Administered Dose 50 mg .ROUTE .STK-MED ONE Stop: 03/18/18 19:48 Succinylcholine Chloride (Quelicin) Confirm Administered Dose 200 mg .ROUTE .STK -MED ONE Stop: 03/18/18 19:48 Vancomycin HCl (Vancomycin) 1 gm IV .PHARMACY TO DOSE [facility] Stop: 03/21/18 16:00 - Exam General: Alert, Oriented, Cooperative, Mild Distress Lungs: Clear to Auscultation, Normal Respiratory Effort Cardiovascular: Regular Rate, Regular Rhythm, No Murmurs GI/Abdominal Exam: Soft, No Organomegaly, Tender. No: Distended, Guarding, Rigid, Rebound Extremities: Non-Tender, Pedal Edema - Problem List Review Problem List Initiated/Reviewed/Updated: Yes - My Orders Last 24 Hours: My Active Orders 04/05/18 17:00 Potassium Chloride [Klor-Con M20] 40 meq PO ONETIME ONE - Plan Plan:: ASSESSMENT AND PLAN SIGMOID COLON PERFORATION RESULTING IN ACUTE ABDOMEN AND SEPTIC SHOCK - status post exploratory laparotomy with partial sigmoid colon resection and creation of a colostomy. Respiratory status has been stable, he is status post PEG feeding tube placement by Dr. Linn. Difficulty tolerating tube feedings with symptoms of nausea. -Resume tube feedings today as ordered by Dr. Linn -Continue diet with pured food and nectar thickened liquids -Post operative surgical care per surgical team -Oxycodone as needed for pain -Saline lock IV SEPTIC SHOCK - resolved ACUTE HYPOXIC RESPIRATORY FAILURE - respiratory status has remained very stable over the past several days -Coughing, deep breathing and suctioning as able STEROID-INDUCED HYPERGLYCEMIA - resolved COPD - [id number] smoking history but no evidence for exacerbation at this time. -Nebulized albuterol as needed -Vigorous pulmonary toilet during the postoperative period ACUTE KIDNEY INJURY -resolved, renal function is back to baseline -Furosemide 40 mg IV today, reassess in a.m. -Assess volume status daily to see if he needs additional diuresis -Closely monitor urine output and renal function during the postoperative period HISTORY OF LUNG AND PROSTATE CARCINOMA - lung cancer felt to be stable, had been receiving treatment for management of prostate carcinoma prior to admission MAINTENANCE ISSUES -DVT prophylaxis; SCUDs -GI prophylaxis; Protonix 40 mg daily -Sorto catheter; removed -Nutrition;. Diet with nectar thickened liquids DISPOSITION - anticipate discharge to detention after the hospital stay
--- NOTE | 2018-04-05 11:33 | PN ---
DATE OF SERVICE: 04/04/2018 The patient has been afebrile with stable vital signs. He had inadvertent bolus of tube feedings last night and then quite a bit of that evacuated. The patient does appear to be tolerating a low rate of tube feedings at this point, as well as some oral intake. Sodium is up slightly at 151 today. I think, with the free water he is getting with the tube feedings, this will probably gradually come down as well. If he tolerates the tube feedings at 20 mL an hour, we will begin advancing the rate somewhat tomorrow. Fredi Linn MD /[id number] MTDD
--- NOTE | 2018-04-05 11:49 | PN ---
DATE OF SERVICE: 03/31/2018 The patient has been afebrile with stable vital signs. Oral intake remains relatively poor. He does not like the hospital's Ensure, but the family is currently bringing in some Boost. We will have Dietary see the patient in collaboration. We will add regular diet to maximize food choices. He had quite high sodium and chloride yesterday. We will switch his IV from normal saline to D5 half-normal saline. Recheck some labs in the morning. Otherwise, he will continue to work with physical therapy and local wound care. Fredi Linn MD /[id number]
--- NOTE | 2018-04-05 12:34 | PN ---
DATE OF SERVICE: 04/05/2018 The patient has been afebrile with stable vital signs. No major problems have been noted overnight. He did take in a fair bit of oral intake yesterday, after the tube feedings had been stopped, due to large residual and the patient complaining of some nausea. I think we will restart the tube feedings at 20 mL/h today. His sodium is stable at 151, and we will restart the water flushes via the tube as well, which may help bring down the sodium level, and recheck some labs in the morning. His bowels are moving well into the colostomy at this point. Fredi Linn MD /[id number]
[2018-04-05] MEDS: Acetaminophen 325 MG Tab PO PRN ×2 (13:41→20:14)
[2018-04-05] MEDS: Albuterol 0.083% 2.5 MG/3 ML Neb Soln NEB PRN (18:03)
[2018-04-05] MEDS: Melatonin 3 MG Tab PO SCH (20:07)
[2018-04-06] MEDS: oxyCODONE 5 MG Tab PO PRN (05:19)
[2018-04-06] MEDS: Albuterol/Ipratropium 3.0-0.5 MG/3 ML Neb Soln NEB SCH ×4 (07:17→20:22)
[2018-04-06] MEDS: Pantoprazole 40 MG Tab.CR PO SCH (07:43)
[2018-04-06] MEDS: Erythromycin Ethylsuccinate Susp 400 MG/5 ML 100 ML Bottle PO SCH ×3 (08:14→20:13)
[2018-04-06] MEDS: Magnesium Sulfate/Water 2 GM in Premix Bag 1 BAG IV SCH ×3 (08:14→20:12)
[2018-04-06] MEDS: Potassium Phosphates 15 MMOLE in Sodium Chloride 0.9% 250 ML IV SCH ×2 (10:55→12:49)
--- NOTE | 2018-04-06 12:16 | PCM.PN ---
- General Info Date of Service: 04/06/18 Subjective Update: There were no acute events overnight. The patient does intermittently use supplemental oxygen area and strength is slowly improving. Appetite and oral intake have been improving throughout the weekend. No significant abdominal pain or nausea. No fevers. Functional Status: Reports: Pain Controlled, Tolerating Diet - Review of Systems General: Reports: Weakness Pulmonary: Denies: Shortness of Breath Gastrointestinal: Denies: Abdominal Pain - Patient Data Vitals - Most Recent: Last Vital Signs Temp 36.7 C 04/06/18 11:14 Pulse 87 04/06/18 11:14 Resp 18 04/06/18 11:14 BP 118/63 04/06/18 11:14 Pulse Ox 93 L 04/06/18 11:14 Weight - Most Recent: 68.719 kg I&O - Last 24 Hours: Intake & Output 04/05/18 04/06/18 04/06/18 22:59 06:59 14:59 Intake Total 1500 920 410 Output Total 350 250 150 Balance 1150 670 260 Lab Results Last 24 Hours: Laboratory Results - last 24 hr 04/06/18 04/06/18 Range/Units 05:50 05:50 WBC 15.7 H (4.5-11.0) K/uL RBC 3.48 L (4.30-5.90) M/uL Hgb 10.4 L (12.0-15.0) g/dL Hct 33.7 L (40.0-54.0) % MCV 97 (80-98) fL MCH 30 (27-31) pg MCHC 31 L (32-36) % Plt Count 309 (150-400) K/uL Neut % (Auto) 80 H (36-66) % Lymph % (Auto) 8 L (24-44) % Armstrong % (Auto) 7 H (2-6) % Eos % (Auto) 5 H (2-4) % Baso % (Auto) 0 (0-1) % Sodium 145 (140-148) mmol/L Potassium 4.1 (3.6-5.2) mmol/L Chloride 111 H (100-108) mmol/L Carbon Dioxide 28 (21-32) mmol/L Anion Gap 10.1 (5.0-14.0) mmol/L BUN 16 (7-18) mg/dL Creatinine 1.3 (0.8-1.3) mg/dL Est Cr Clr Drug Dosing 45.79 mL/min Estimated GFR (MDRD) 54 L (>60) Glucose 85 (74-106) mg/dL Calcium 7.3 L (8.5-10.1) mg/dL Phosphorus 2.5 (2.5-4.9) mg/dL Magnesium 1.7 L (1.8-2.4) mg/dL Total Bilirubin 0.4 (0.2-1.0) mg/dL AST 19 (15-37) U/L ALT 20 (12-78) U/L Alkaline Phosphatase 88 (46-116) U/L Total Protein 5.5 L (6.4-8.2) g/dL Albumin 1.8 L (3.4-5.0) g/dL Globulin 3.7 H (2.3-3.5) g/dL Albumin/Globulin Ratio 0.5 L (1.2-2.2) Med Orders - Current: Current Medications Acetaminophen (Tylenol) 650 mg RECTAL Q4H PRN PRN Reason: Fever Acetaminophen (Tylenol) 650 mg PO Q4H PRN PRN Reason: Pain/Fever Last Admin: 04/05/18 20:14 Dose: 650 mg Albuterol (Proventil Neb Soln) 2.5 mg NEB Q4H PRN PRN Reason: Dyspnea Last Admin: 04/05/18 18:03 Dose: 2.5 mg Albuterol/Ipratropium (Duoneb 3.0-0.5 Mg/3 Ml) 3 ml NEB QIDRT [facility] Last Admin: 04/06/18 10:47 Dose: 3 ml Dimethicone/Zinc Oxide (Rash Relief-Zinc Oxide Willow) 0 gm TOP ASDIRECTED PRN PRN Reason: Rash Last Admin: 03/28/18 16:55 Dose: 1 spray Erythromycin Ethylsuccinate (Eryped 400) 125 mg PO Q6H [facility] Last Admin: 04/06/18 08:14 Dose: 125 mg Heparin Sodium (Porcine) (Heparin Lock Flush 100 Units/Ml) 500 units FLUSH ASDIRECTED PRN PRN Reason: IV Use Last Admin: 03/28/18 14:38 Dose: 500 units Magnesium Sulfate 2 gm/ Premix 50 mls @ 25 mls/hr IV Q6H [facility] Stop: 04/08/18 03:59 Last Admin: 04/06/18 08:14 Dose: 25 mls/hr Potassium Phosphate 15 mmole/ (Sodium Chloride) 255 mls @ 128 mls/hr IV Q2H [facility] Stop: 04/06/18 13:59 Last Admin: 04/06/18 10:55 Dose: 128 mls/hr Loperamide HCl (Imodium) 2 mg PO ASDIRECTED PRN PRN Reason: DIARRHEA Melatonin (Melatonin) 9 mg PO BEDTIME [facility] Last Admin: 04/05/18 20:07 Dose: 9 mg Oxycodone HCl (Oxycodone) 5 mg PO Q4H PRN PRN Reason: Pain (moderate 4-6) Last Admin: 04/06/18 05:19 Dose: 5 mg Pantoprazole Sodium (Protonix) 40 mg PO ACBREAKFAST [facility] Last Admin: 04/06/18 07:43 Dose: 40 mg Discontinued Medications Albuterol/Ipratropium (Duoneb 3.0-0.5 Mg/3 Ml) 3 ml NEB Q4H PRN PRN Reason: Dyspnea Dexamethasone (Dexamethasone) Confirm Administered Dose 4 mg .ROUTE .STK-MED ONE Stop: 03/18/18 19:48 Epinephrine HCl (Adrenalin) Confirm Administered Dose 1 mg .ROUTE .STK-MED ONE Stop: 03/18/18 21:07 Fentanyl (Sublimaze) Confirm Administered Dose 250 mcg .ROUTE .STK-MED ONE Stop: 03/18/18 19:48 Fentanyl (Sublimaze) Confirm Administered Dose 250 mcg .ROUTE .STK-MED ONE Stop: 04/02/18 12:59 Furosemide (Lasix) 20 mg IVPUSH ONETIME ONE Stop: 03/23/18 09:46 Last Admin: 03/23/18 10:18 Dose: 20 mg Furosemide (Lasix) 20 mg IVPUSH NOW ONE Stop: 03/25/18 10:01 Last Admin: 03/25/18 10:17 Dose: 20 mg Furosemide (Lasix) 20 mg IVPUSH ONETIME ONE Stop: 03/26/18 09:16 Last Admin: 03/26/18 09:10 Dose: 20 mg Furosemide (Lasix) 20 mg IVPUSH ONETIME ONE Stop: 03/26/18 16:01 Last Admin: 03/26/18 18:28 Dose: Not Given Furosemide (Lasix) 20 mg IVPUSH NOW ONE Stop: 03/27/18 10:01 Last Admin: 03/27/18 10:26 Dose: 20 mg Furosemide (Lasix) 20 mg IVPUSH ONETIME ONE Stop: 03/30/18 13:11 Last Admin: 03/30/18 13:36 Dose: 20 mg Furosemide (Lasix) 20 mg IVPUSH NOW ONE Stop: 03/31/18 11:55 Last Admin: 03/31/18 13:04 Dose: 20 mg Furosemide (Lasix) 20 mg IVPUSH NOW ONE Stop: 04/01/18 12:05 Last Admin: 04/01/18 12:43 Dose: 20 mg Furosemide (Lasix) 20 mg IVPUSH NOW ONE Stop: 04/02/18 15:46 Last Admin: 04/02/18 15:53 Dose: 20 mg Furosemide (Lasix) 40 mg IVPUSH NOW ONE Stop: 04/03/18 09:01 Last Admin: 04/03/18 09:45 Dose: 40 mg Furosemide (Lasix) 40 mg IVPUSH NOW ONE Stop: 04/04/18 15:31 Last Admin: 04/04/18 15:55 Dose: 40 mg Furosemide (Lasix) 40 mg IVPUSH NOW ONE Stop: 04/05/18 09:01 Last Admin: 04/05/18 10:15 Dose: 40 mg Glycopyrrolate (Robinul) Confirm Administered Dose 1 mg .ROUTE .STK-MED ONE Stop: 03/18/18 19:48 Heparin Sodium (Porcine) (Heparin Sodium) Confirm Administered Dose 5,000 units .ROUTE .STK-MED ONE Stop: 03/18/18 19:51 Heparin Sodium (Porcine) (Heparin Lock Flush 100 Units/Ml) Confirm Administered Dose 500 units .ROUTE .STK-MED ONE Stop: 03/22/18 12:17 Last Admin: 03/22/18 12:30 Dose: Not Given Heparin Sodium (Porcine) (Heparin Sodium) Confirm Administered Dose 5,000 units .ROUTE .STK-MED ONE Stop: 03/24/18 19:52 Last Admin: 03/24/18 20:33 Dose: 5,000 units Hydrocortisone Sodium Succinate (Solu-Cortef) 100 mg IVPUSH Q12H [facility] Last Admin: 03/28/18 20:15 Dose: 100 mg Hydrocortisone Sodium Succinate (Solu-Cortef) 100 mg IVPUSH DAILY [facility] Last Admin: 03/30/18 13:39 Dose: Not Given Hydromorphone HCl (Dilaudid) 0.5 mg IVPUSH ONETIME ONE Stop: 03/18/18 17:43 Last Admin: 03/18/18 17:47 Dose: 0.5 mg Hydromorphone HCl (Dilaudid) 1 mg IVPUSH ONETIME ONE Stop: 03/18/18 18:18 Last Admin: 03/18/18 18:27 Dose: 1 mg Sodium Chloride (Normal Saline) 1,000 mls @ 1,000 mls/hr IV ASDIRECTED [facility] Last Admin: 03/18/18 17:47 Dose: 1,000 mls/hr Sodium Chloride (Normal Saline) 1,000 mls @ 999 mls/hr IV ASDIRECTED [facility] Last Admin: 03/18/18 19:31 Dose: 999 mls/hr Meropenem 500 mg/ Sodium (Chloride) 50 mls @ 100 mls/hr IV ONETIME ONE Stop: 03/18/18 19:09 Last Admin: 03/18/18 19:01 Dose: 100 mls/hr Sodium Chloride (Normal Saline) Confirm Administered Dose 50 mls @ as directed .ROUTE .ST-MED ONE Stop: 03/18/18 19:40 Last Admin: 03/18/18 20:19 Dose: Not Given Aztreonam 2 gm/ Sodium (Chloride) 50 mls @ 100 mls/hr IV ONETIME ONE Stop: 03/18/18 20:01 Last Admin: 03/18/18 20:44 Dose: 100 mls/hr Meropenem 500 mg/ Sodium (Chloride) 50 mls @ 100 mls/hr IV ONETIME ONE Stop: 03/18/18 20:00 Last Admin: 03/18/18 19:40 Dose: 100 mls/hr Sodium Chloride (Normal Saline) Confirm Administered Dose 250 mls @ as directed .ROUTE .[facility]-MED ONE Stop: 03/18/18 19:59 Lactated Ringer's (Ringers, Lactated) Confirm Administered Dose 1,000 mls @ as directed .ROUTE .[facility]-MED ONE Stop: 03/18/18 19:59 Sodium Chloride (Normal Saline) Confirm Administered Dose 500 mls @ as directed .ROUTE .STK-MED ONE Stop: 03/18/18 19:59 Norepinephrine Bitartrate 8 mg (/ Dextrose/Water) 258 mls @ 3.87 mls/hr IV TITRATE [facility]; Protocol Last Admin: 03/19/18 11:45 Dose: 12 mcg/min, 23.22 mls/hr Lactated Ringer's (Ringers, Lactated) Confirm Administered Dose 1,000 mls @ as directed .ROUTE .STK-MED ONE Stop: 03/18/18 21:42 Propofol (Diprivan 100 Ml) 100 mls @ 2.082 mls/hr IV TITRATE [facility]; Protocol Last Titration: 03/27/18 06:35 Dose: 10 mcg/kg/min, 4.164 mls/hr Aztreonam 1 gm/ Sodium (Chloride) 50 mls @ 100 mls/hr IV Q8H [facility] Last Admin: 03/19/18 05:29 Dose: 100 mls/hr Potassium Chloride/Dextrose/Sod Cl (D5 1/2 Ns W/ 20 Meq/L Kcl) 1,000 mls @ 150 mls/hr IV ASDIRECTED [facility] Last Admin: 03/18/18 23:11 Dose: 150 mls/hr Meropenem 1 gm/ Sodium (Chloride) 50 mls @ 100 mls/hr IV Q12H [facility] Stop: 03/29/18 22:00 Last Admin: 03/29/18 20:10 Dose: 100 mls/hr Lactated Ringer's (Ringers, Lactated) 1,000 mls @ 500 mls/hr IV ASDIRECTED [facility] Last Admin: 03/19/18 01:23 Dose: 500 mls/hr Vasopressin 100 units/ (Dextrose/Water) 255 mls @ 1.53 mls/hr IV TITRATE [facility]; Protocol Stop: 03/21/18 13:00 Last Titration: 03/21/18 11:03 Dose: 0.02 units/min, 3.06 mls/hr Lactated Ringer's (Ringers, Lactated) 1,000 mls @ 500 mls/hr IV BOLUS [facility] Stop: 03/19/18 05:29 Last Admin: 03/19/18 04:02 Dose: 500 mls/hr Aztreonam/Dextrose 1 gm/ (Premix) 50 mls @ 100 mls/hr IV Q8H [facility] Last Admin: 03/28/18 05:26 Dose: 100 mls/hr Lactated Ringer's (Ringers, Lactated) 1,000 mls @ 500 mls/hr IV .BOLUS ONE Stop: 03/19/18 14:59 Last Admin: 03/19/18 14:27 Dose: 500 mls/hr Lactated Ringer's (Ringers, Lactated) 1,000 mls @ 150 mls/hr IV ASDIRECTED [facility] Last Admin: 03/21/18 11:53 Dose: 150 mls/hr Norepinephrine Bitartrate 8 mg (/ Dextrose/Water) 250 mls @ 3.75 mls/hr IV TITRATE [facility]; Protocol Last Titration: 03/27/18 09:04 Dose: 4 mcg/min, 7.5 mls/hr Magnesium Sulfate 2 gm/ Premix 50 mls @ 25 mls/hr IV Q6H [facility] Stop: 03/20/18 17:59 Last Admin: 03/20/18 16:30 Dose: 25 mls/hr Vancomycin HCl 1.25 gm/ Sodium (Chloride) 250 mls @ 170 mls/hr IV Q24H [facility] Last Admin: 03/22/18 10:06 Dose: 170 mls/hr Vasopressin 40 units/ Dextrose (/Water) 100 mls @ 3 mls/hr IV TITRATE [facility]; Protocol Last Titration: 03/23/18 01:00 Dose: 0 units/min, 0 mls/hr Potassium Chloride 20 meq/ (Premix) 100 mls @ 50 mls/hr IV Q2H [facility] Stop: 03/21/18 22:59 Last Admin: 03/21/18 22:20 Dose: 50 mls/hr Potassium Chloride 20 meq/ (Premix) 100 mls @ 50 mls/hr IV Q2H [facility] Stop: 03/22/18 12:59 Last Admin: 03/22/18 11:30 Dose: 50 mls/hr Potassium Chloride 20 meq/ (Premix) 100 mls @ 50 mls/hr IV Q2H [facility] Stop: 03/22/18 17:29 Last Admin: 03/22/18 16:13 Dose: 50 mls/hr Potassium Chloride (Kcl 20 Meq In Water 100 Ml) 100 mls @ 50 mls/hr IV Q2H [facility] Stop: 03/23/18 01:59 Last Admin: 03/23/18 00:53 Dose: 50 mls/hr Potassium Chloride 40 meq/ (Premix) 100 mls @ 25 mls/hr IV ONETIME ONE Stop: 03/23/18 14:29 Last Admin: 03/23/18 10:31 Dose: 25 mls/hr Vancomycin HCl 1.4 gm/ Sodium (Chloride) 250 mls @ 170 mls/hr IV Q24H [facility] Last Admin: 03/24/18 11:13 Dose: 170 mls/hr Multivitamins/Minerals 10 ml/Chromium/Copper/Manganese/Seleni/Zn 1 ml/ Amino Ac/ Electrol/Dextrose/Calcium 1,011 mls @ 75 mls/hr IV .BY DURATION [facility] Last Admin: 03/25/18 22:34 Dose: 75 mls/hr Amino Ac/Electrol/Dextrose/Calcium (Clinimix E 5/15) 1,000 mls @ 75 mls/hr IV .BY DURATION [facility] Last Admin: 03/25/18 08:11 Dose: 75 mls/hr Vasopressin 100 units/ (Dextrose/Water) 255 mls @ 1.53 mls/hr IV TITRATE [facility]; Protocol Last Titration: 03/25/18 11:51 Dose: 0 units/min, 0 mls/hr Potassium Chloride 20 meq/ (Premix) 100 mls @ 50 mls/hr IV Q2H [facility] Stop: 03/24/18 13:59 Last Admin: 03/24/18 12:13 Dose: 50 mls/hr Multivitamins/Minerals 10 ml/Chromium/Copper/Manganese/Seleni/Zn 1 ml/ Amino Ac/ Electrol/Dextrose/Calcium 1,011 mls @ 75 mls/hr IV .BY DURATION [facility] Last Admin: 03/29/18 06:48 Dose: 75 mls/hr Amino Ac/Electrol/Dextrose/Calcium (Clinimix E 5/15) 1,000 mls @ 75 mls/hr IV .BY DURATION [facility] Last Admin: 03/29/18 20:12 Dose: 75 mls/hr Heparin Sodium (Porcine) 5,000 (units/ Sodium Chloride) 501 mls @ 5 mls/hr IV ASDIRECTED [facility] Last Admin: 03/27/18 12:50 Dose: 5 mls/hr Sodium Chloride (Normal Saline) 1,000 mls @ 50 mls/hr IV ASDIRECTED [facility] Last Admin: 03/30/18 13:36 Dose: 50 mls/hr Dextrose/Sodium Chloride (Dextrose 5%-1/2 Ns) 1,000 mls @ 75 mls/hr IV ASDIRECTED [facility] Last Admin: 03/31/18 23:53 Dose: 75 mls/hr Albumin Human (Albumin 25%) 25 gm in 100 mls @ 25 mls/hr IV Q24H [facility] Stop: 04/02/18 12:59 Last Admin: 04/01/18 08:13 Dose: 25 mls/hr Potassium Phosphate 20 mmole/ (Sodium Chloride) 256.6667 mls @ 85 mls/hr IV Q3H [facility] Stop: 04/01/18 18:59 Last Admin: 04/01/18 18:37 Dose: 85 mls/hr Dextrose/Sodium Chloride (Dextrose 5%-1/2 Ns) 1,000 mls @ 80 mls/hr IV ASDIRECTED [facility] Last Admin: 04/03/18 06:40 Dose: 80 mls/hr Cefazolin Sodium/Dextrose 2 gm (/ Premix) 50 mls @ 100 mls/hr IV ONCALL ONE Stop: 04/02/18 11:59 Last Admin: 04/02/18 13:59 Dose: 100 mls/hr Potassium Acetate 20 meq/ (Sodium Chloride) 110 mls @ 55 mls/hr IV Q2H [facility] Stop: 04/02/18 11:59 Last Admin: 04/02/18 10:10 Dose: 55 mls/hr Magnesium Sulfate 2 gm/ Premix 50 mls @ 25 mls/hr IV Q6H [facility] Stop: 04/05/18 07:59 Last Admin: 04/03/18 12:11 Dose: 25 mls/hr Albumin Human (Albumin 25%) 25 gm in 100 mls @ 25 mls/hr IV ONETIME ONE Stop: 04/02/18 17:59 Last Admin: 04/02/18 15:30 Dose: 25 mls/hr Potassium Chloride 20 meq/Lidocaine HCl 2 ml/ Sodium Chloride 112 mls @ 56 mls/ hr IV Q2H [facility] Stop: 04/03/18 17:59 Last Admin: 04/03/18 17:04 Dose: 56 mls/hr Insulin Human Lispro (Humalog) 0 unit SUBCUT Q6H [facility]; Protocol Last Admin: 03/30/18 16:32 Dose: Not Given Insulin Human Lispro (Humalog) 0 unit SUBCUT Q6H [facility]; Protocol Last Admin: 03/31/18 03:52 Dose: Not Given Insulin Human Lispro (Humalog) 0 unit SUBCUT QIDACANDBED [facility]; Protocol Stop: 04/12/18 11:01 Last Admin: 03/31/18 13:17 Dose: Not Given Meropenem (Merrem) Confirm Administered Dose 500 mg .ROUTE .STK-MED ONE Stop: 03/18/18 19:40 Last Admin: 03/18/18 20:19 Dose: Not Given Midazolam HCl (Versed 1 Mg/Ml) Confirm Administered Dose 2 mg .ROUTE .STK-MED ONE Stop: 04/02/18 12:59 Morphine Sulfate (Morphine) 4 mg IVPUSH Q2H PRN PRN Reason: Pain Last Admin: 03/29/18 07:34 Dose: 4 mg Neostigmine Methylsulfate (Neostigmine) Confirm Administered Dose 5 mg .ROUTE .STK-MED ONE Stop: 03/18/18 19:48 Non-Formulary Medication (Total Parenteral Nutrition, Central) 1,000 ml .XX .Continue Order [facility]; Protocol Stop: 03/24/18 11:31 Non-Formulary Medication (Total Parenteral Nutrition, Central) 1,000 ml .XX .Continue Order [facility]; Protocol Non-Formulary Medication (Total Parenteral Nutrition, Central) 1,000 ml .XX .Continue Order [facility]; Protocol Non-Formulary Medication (Total Parenteral Nutrition, Central) 1,000 ml .XX .Continue Order [facility]; Protocol Stop: 03/28/18 12:00 Nystatin (Mycostatin) 5 ml PO QID [facility] Last Admin: 04/04/18 15:25 Dose: 5 ml Ondansetron HCl (Zofran) 4 mg IVPUSH ONETIME ONE Stop: 03/18/18 18:18 Last Admin: 03/18/18 18:27 Dose: 4 mg Ondansetron HCl (Zofran) Confirm Administered Dose 4 mg .ROUTE .STK-MED ONE Stop: 03/18/18 19:48 Pantoprazole Sodium (Protonix Iv) 40 mg IVPUSH DAILY [facility] Last Admin: 03/28/18 08:34 Dose: 40 mg Phenylephrine HCl (Isaías-Synephrine) Confirm Administered Dose 10 mg .ROUTE .STK- MED ONE Stop: 03/18/18 20:05 Potassium Chloride (Klor-Con M20) 40 meq PO ONETIME ONE Stop: 04/03/18 13:16 Last Admin: 04/03/18 14:33 Dose: 40 meq Potassium Chloride (Klor-Con M20) 40 meq PO ONETIME ONE Stop: 04/03/18 17:01 Last Admin: 04/03/18 20:55 Dose: 40 meq Potassium Chloride (Klor-Con M20) 40 meq PO ONETIME ONE Stop: 04/04/18 09:01 Last Admin: 04/04/18 09:34 Dose: 40 meq Potassium Chloride (Klor-Con M20) 40 meq PO ONETIME ONE Stop: 04/04/18 17:01 Last Admin: 04/04/18 17:08 Dose: 40 meq Potassium Chloride (Klor-Con M20) 40 meq PO ONETIME ONE Stop: 04/05/18 09:01 Last Admin: 04/05/18 10:14 Dose: 40 meq Potassium Chloride (Klor-Con M20) 40 meq PO ONETIME ONE Stop: 04/05/18 17:01 Last Admin: 04/05/18 18:00 Dose: 40 meq Prednisone (Prednisone) 20 mg PO WITHBREAKFAST [facility] Last Admin: 03/30/18 08:59 Dose: 20 mg Propofol (Diprivan 20 Ml) Confirm Administered Dose 200 mg .ROUTE .STK-MED ONE Stop: 03/18/18 19:48 Propofol (Diprivan 20 Ml) Confirm Administered Dose 200 mg .ROUTE .STK-MED ONE Stop: 04/02/18 12:59 Rocuronium Ninole (Zemuron) Confirm Administered Dose 50 mg .ROUTE .STK-MED ONE Stop: 03/18/18 19:48 Succinylcholine Chloride (Quelicin) Confirm Administered Dose 200 mg .ROUTE .STK -MED ONE Stop: 03/18/18 19:48 Vancomycin HCl (Vancomycin) 1 gm IV .PHARMACY TO DOSE [facility] Stop: 03/21/18 16:00 - Exam Quality Assessment: Supplemental Oxygen General: Alert, Oriented, Cooperative, No Acute Distress Neck: Supple Lungs: Clear to Auscultation, Normal Respiratory Effort Cardiovascular: Regular Rate, Regular Rhythm GI/Abdominal Exam: Normal Bowel Sounds, Soft, No Distention Extremities: No Pedal Edema, Other (mild edema both upper arms) Skin: Warm, Dry Psy/Mental Status: Alert, Normal Affect - Problem List Review Problem List Initiated/Reviewed/Updated: Yes - Plan Plan:: ASSESSMENT AND PLAN SIGMOID COLON PERFORATION RESULTING IN ACUTE ABDOMEN AND SEPTIC SHOCK - status post exploratory laparotomy with partial sigmoid colon resection and creation of a colostomy. Respiratory status has been stable, he is status post PEG feeding tube placement by Dr. Linn. By mouth intake has been improving and he seems to be better tolerating his tube feeds. -Continue tube feedings today as ordered by Dr. Linn -Continue diet with pured food and nectar thickened liquids -Post operative surgical care per surgical team -Oxycodone as needed for pain -Saline lock IV SEPTIC SHOCK - resolved ACUTE HYPOXIC RESPIRATORY FAILURE - respiratory status has remained very stable over the past several days -Coughing, deep breathing and suctioning as able STEROID-INDUCED HYPERGLYCEMIA - resolved COPD - [id number] smoking history but no evidence for exacerbation at this time. -Nebulized albuterol as needed -Vigorous pulmonary toilet during the postoperative period ACUTE KIDNEY INJURY - resolved, renal function is back to baseline. -Assess volume status daily to see if he needs additional diuresis -Closely monitor urine output and renal function during the postoperative period HISTORY OF LUNG AND PROSTATE CARCINOMA - lung cancer felt to be stable, had been receiving treatment for management of prostate carcinoma prior to admission MAINTENANCE ISSUES -DVT prophylaxis; SCUDs -GI prophylaxis; Protonix 40 mg daily -Sorto catheter; removed -Nutrition; pured diet with nectar thickened liquids DISPOSITION - anticipate discharge to halfway after the hospital stay, likely tomorrow if stable overnight Stephon Christy M.D.
--- NOTE | 2018-04-06 13:28 | OR ---
DATE OF PROCEDURE: 04/02/2018 PREOPERATIVE DIAGNOSIS: Malnutrition associated with inadequate oral intake. POSTOPERATIVE DIAGNOSIS: Malnutrition associated with inadequate oral intake. OPERATIVE PROCEDURE: Percutaneous endoscopic gastrostomy tube placement (03690). ANESTHESIA: Local plus IV sedation. INTERN BRAND: PAS. Mike INDICATION FOR PROCEDURE: This is a 77-year-old status post a lengthy ICU stay and a period of both severe sepsis and septic shock, who at this point is not maintaining adequate oral intake. He had been on TPN, but pulled his central line out. We attempted to improve his oral intake sufficiently, but we have been unsuccessful, and given this, a gastrostomy tube placement is to be undertaken. Potential risks were reviewed with the patient and family and they wished to proceed. DETAILS OF PROCEDURE: The patient was taken to the operating room and placed in a semi- sitting position. IV sedation was administered, after which, the upper GI endoscope was passed orally through the length of the esophagus and into the stomach. The abdomen at that point had been prepped and draped and light could be seen in the left subcostal area emanating from the gastroscope through the stomach. The skin overlying this was then anesthetized with 1% lidocaine and a needle then passed into the abdominal wall and into the stomach under direct visualization. A guidewire was then passed through the needle through the stomach which was grasped with endoscopic biopsy forceps allowing the wire to be pulled back out through the mouth as the scope was withdrawn. A 1 cm incision at the skin puncture site was made, and the G-tube insertion apparatus was attached to the wire which was then pulled down back through the mouth and taken out through the abdominal wall. This was secured there with some 2-0 nylon stitch. Endoscopic confirmation of adequate tube placement was confirmed. The tube was then placed to dependent drainage. There were no evident complications. The patient was taken to the recovery room in satisfactory condition. Fredi Linn MD /[id number]
--- NOTE | 2018-04-06 16:02 | PN ---
DATE OF SERVICE: 04/06/2018 SUBJECTIVE: Kodak had an oral intake of 2100. His G-tube was discontinued at 4 a.m., it was running 2 mL per hour. He had 350 mL residual. Lab reports this morning, hemoglobin 10.4, white count 15.7. Sodium 145, potassium 4.11, and chloride 111. Albumin was 1.8. Magnesium is 1.7. He is somewhat confused. Has no other questions. OBJECTIVE: GENERAL: Kodak Silva is a 77-year-old male. He is sitting up in the chair. VITAL SIGNS: TPR is 98, 87, 18. Blood pressure 118/63. HEENT: Negative. NECK: Supple HEART: Regular rate and rhythm. LUNGS: Clear. ABDOMEN: Negative. EXTREMITIES: Without peripheral edema. ASSESSMENT: 1. Percutaneous endoscopic gastrostomy tube placement for malnutrition with inadequate oral intake. Date of procedure, 04/02/2018. Surgeon, Fredi Linn MD. 2. Exploratory laparotomy, peritoneal lavage/sigmoid colon resection, left colostomy, Cristina's pouch for acute abdomen with perforated viscus and sepsis. Date of surgery, 03/18/2018. Surgeon, Espinoza Adams MD. 3. Septic shock, resolved. 4. Acute hypoxic respiratory failure, resolved. 5. Chronic obstructive pulmonary disease. 6. Acute kidney injury. 7. History of lung and prostate cancer. 8. Persistent inadequate oral intake and malnutrition. PLAN: 1. K-Phos 30 mmol IV one time today. 2. Magnesium 2 g q.6 hours x48 hours. 3. Communication order written for accurate calorie count. 4. Continue tube feedings. 5. Erythromycin 125 mg p.o. q.i.d. orally. 6. Check CBC, CMP, and phos in a.m. 7. Good pulmonary toilet. 8. We will evaluate p.r.n. or in a.m. Rula Morley PA-C /[id number]
[2018-04-06] MEDS: Melatonin 3 MG Tab PO SCH ×3 (20:13→21:40)
[2018-04-07] MEDS: Erythromycin Ethylsuccinate Susp 400 MG/5 ML 100 ML Bottle PO SCH ×3 (04:07→15:14)
[2018-04-07] MEDS: Magnesium Sulfate/Water 2 GM in Premix Bag 1 BAG IV SCH ×5 (04:07→23:13)
[2018-04-07] MEDS: Albuterol/Ipratropium 3.0-0.5 MG/3 ML Neb Soln NEB SCH ×4 (07:36→21:01)
[2018-04-07] MEDS: Pantoprazole 40 MG Tab.CR PO SCH (08:10)
[2018-04-07] MEDS ORDERED: Dextrose 5%-Lactated Ringers 1,000 ML IV SCH (08:30)
[2018-04-07] MEDS ORDERED: Naloxone 0.4 MG/ML SDV IV PRN (09:10)
[2018-04-07] MEDS ORDERED: Morphine PF 150 MG/30 ML PCA Syringe IV PRN (09:10)
--- NOTE | 2018-04-07 09:28 | PN ---
DATE OF SERVICE: 04/07/2018 SUBJECTIVE: Gastrostomy tube started out at 20 mL per hour, then was increased to 40, and they will be running from 7:00 p.m. to 7:00 a.m. He tolerated it well. Vital signs have been stable. Oral intake 2100, 350 out with his colostomy. Calorie count is charted elsewhere in the paper chart. Unknown caloric intake at the time of report. OBJECTIVE: GENERAL: Kodak is a 77-year-old male. VITAL SIGNS: TPR is 98.2, 82, 16, blood pressure 116/53. HEENT: Negative. Color pale. NECK: Supple. HEART: Regular rate and rhythm. LUNGS: Clear. ABDOMEN: Incision was examined. His abdominal incision is large, almost the entire circumference of his abdomen. Clean pink large colon visible. Wet-to-dry dressings twice daily. Abdominal binder over the dressing. EXTREMITIES: Without peripheral edema. ASSESSMENT: 1. Large open abdominal incision. 2. Percutaneous gastrostomy tube placement for malnutrition, inadequate oral intake. Date of procedure: 04/02/2018. Surgeon: Fredi Linn MD. 3. Exploratory laparotomy, peritoneal lavage, sigmoid colon resection, left colostomy, Cristina's pouch for acute abdomen with perforated viscus and sepsis. Date of surgery: 03/18/2018. Surgeon: Espinoza Adams MD. 4. Septic shock, resolved. 5. Acute hypoxic respiratory failure, resolved. 6. Chronic obstructive pulmonary disease. 7. Acute kidney injury. 8. History of lung and prostate cancer, it is persistent. 9. Inadequate oral intake. 10.Malnutrition. PLAN: 1. Dr. Fredi Linn consulted to look at open abdominal wound. 2. Continue gastrostomy tube feeding 4 mL/hour from 7:00 p.m. to 7:00 a.m. 3. Plan discharge later this week depending on how the patient is doing. 4. We will evaluate p.r.n. or in a.m. Rula Morley PA-C /[id number]
--- NOTE | 2018-04-07 10:28 | PCM.PN ---
- General Info Date of Service: 04/07/18 Subjective Update: There were no acute events overnight but this morning the patient had a wound dehiscence. He is complaining of mild to moderate lower abdominal pain. He is a little bit sleepy compared to baseline. He feels a little bit short of breath but has not been coughing. No fevers. Surgical intervention is planned this afternoon. Functional Status: Reports: Pain Controlled, Tolerating Diet - Review of Systems General: Reports: Weakness. Denies: Fever Pulmonary: Reports: Shortness of Breath Gastrointestinal: Reports: Abdominal Pain - Patient Data Vitals - Most Recent: Last Vital Signs Temp 36.8 C 04/07/18 07:18 Pulse 82 04/07/18 07:18 Resp 16 04/07/18 07:18 BP 116/53 L 04/07/18 07:18 Pulse Ox 98 04/07/18 07:18 Weight - Most Recent: 68.719 kg I&O - Last 24 Hours: Intake & Output 04/06/18 04/07/18 04/07/18 22:59 06:59 14:59 Intake Total 340 390 Output Total 100 Balance 240 390 Lab Results Last 24 Hours: Laboratory Results - last 24 hr 04/07/18 04/07/18 Range/Units 04:20 04:20 WBC 15.6 H (4.5-11.0) K/uL RBC 3.51 L (4.30-5.90) M/uL Hgb 10.1 L (12.0-15.0) g/dL Hct 33.6 L (40.0-54.0) % MCV 96 (80-98) fL MCH 29 (27-31) pg MCHC 30 L (32-36) % Plt Count 293 (150-400) K/uL Sodium 144 (140-148) mmol/L Potassium 4.0 (3.6-5.2) mmol/L Chloride 109 H (100-108) mmol/L Carbon Dioxide 27 (21-32) mmol/L Anion Gap 12.0 (5.0-14.0) mmol/L BUN 17 (7-18) mg/dL Creatinine 1.2 (0.8-1.3) mg/dL Est Cr Clr Drug Dosing 49.61 mL/min Estimated GFR (MDRD) 59 L (>60) Glucose 111 H (74-106) mg/dL Calcium 7.2 L (8.5-10.1) mg/dL Phosphorus 3.3 (2.5-4.9) mg/dL Total Bilirubin 0.3 (0.2-1.0) mg/dL AST 18 (15-37) U/L ALT 21 (12-78) U/L Alkaline Phosphatase 87 (46-116) U/L Total Protein 5.4 L (6.4-8.2) g/dL Albumin 1.7 L (3.4-5.0) g/dL Globulin 3.7 H (2.3-3.5) g/dL Albumin/Globulin Ratio 0.5 L (1.2-2.2) Med Orders - Current: Current Medications Acetaminophen (Tylenol) 650 mg RECTAL Q4H PRN PRN Reason: Fever Acetaminophen (Tylenol) 650 mg PO Q4H PRN PRN Reason: Pain/Fever Last Admin: 04/05/18 20:14 Dose: 650 mg Albuterol (Proventil Neb Soln) 2.5 mg NEB Q4H PRN PRN Reason: Dyspnea Last Admin: 04/05/18 18:03 Dose: 2.5 mg Albuterol/Ipratropium (Duoneb 3.0-0.5 Mg/3 Ml) 3 ml NEB QIDRT [facility] Last Admin: 04/07/18 07:36 Dose: 3 ml Albuterol/Ipratropium (Duoneb 3.0-0.5 Mg/3 Ml) 3 ml NEB ONETIME ONE Stop: 04/07/18 10:31 Last Admin: 04/07/18 10:26 Dose: Not Given Ropivacaine 34 ml/Dexamethasone 8 mg/Epinephrine HCl 0.4 mg/ Sodium Chloride 43.6 ml 0 ml NERVRT ASDIRECTED [facility] Dimethicone/Zinc Oxide (Rash Relief-Zinc Oxide [place]) 0 gm TOP ASDIRECTED PRN PRN Reason: Rash Last Admin: 03/28/18 16:55 Dose: 1 spray Erythromycin Ethylsuccinate (Eryped 400) 125 mg PO Q6H [facility] Last Admin: 04/07/18 08:11 Dose: 125 mg Heparin Sodium (Porcine) (Heparin Lock Flush 100 Units/Ml) 500 units FLUSH ASDIRECTED PRN PRN Reason: IV Use Last Admin: 03/28/18 14:38 Dose: 500 units Magnesium Sulfate 2 gm/ Premix 50 mls @ 25 mls/hr IV Q6H [facility] Stop: 04/08/18 03:59 Last Admin: 04/07/18 08:05 Dose: 25 mls/hr Dextrose/Lactated Ringer's (Dextrose 5%-Lactated Ringers) 1,000 mls @ 100 mls/ hr IV ASDIRECTED [facility] Last Admin: 04/07/18 08:44 Dose: 100 mls/hr Meropenem 500 mg/ Sodium (Chloride) 50 mls @ 100 mls/hr IV ONCALL ONE Stop: 04/07/18 11:59 Loperamide HCl (Imodium) 2 mg PO ASDIRECTED PRN PRN Reason: DIARRHEA Melatonin (Melatonin) 9 mg PO BEDTIME [facility] Last Admin: 04/06/18 21:40 Dose: 9 mg Morphine Sulfate (Morphine Cracking Still Operator 150 Mg In 30 Ml) 0 mg IV ASDIRECTED PRN; Protocol PRN Reason: Pain Last Admin: 04/07/18 10:00 Dose: 150 mg Naloxone HCl (Narcan) 0.1 mg IV ASDIRECTED PRN PRN Reason: decreased respiratory rate Oxycodone HCl (Oxycodone) 5 mg PO Q4H PRN PRN Reason: Pain (moderate 4-6) Last Admin: 04/06/18 05:19 Dose: 5 mg Pantoprazole Sodium (Protonix) 40 mg PO ACBREAKFAST [facility] Last Admin: 04/07/18 08:10 Dose: 40 mg Discontinued Medications Albuterol/Ipratropium (Duoneb 3.0-0.5 Mg/3 Ml) 3 ml NEB Q4H PRN PRN Reason: Dyspnea Dexamethasone (Dexamethasone) Confirm Administered Dose 4 mg .ROUTE .STK-MED ONE Stop: 03/18/18 19:48 Epinephrine HCl (Adrenalin) Confirm Administered Dose 1 mg .ROUTE .STK-MED ONE Stop: 03/18/18 21:07 Fentanyl (Sublimaze) Confirm Administered Dose 250 mcg .ROUTE .STK-MED ONE Stop: 03/18/18 19:48 Fentanyl (Sublimaze) Confirm Administered Dose 250 mcg .ROUTE .STK-MED ONE Stop: 04/02/18 12:59 Furosemide (Lasix) 20 mg IVPUSH ONETIME ONE Stop: 03/23/18 09:46 Last Admin: 03/23/18 10:18 Dose: 20 mg Furosemide (Lasix) 20 mg IVPUSH NOW ONE Stop: 03/25/18 10:01 Last Admin: 03/25/18 10:17 Dose: 20 mg Furosemide (Lasix) 20 mg IVPUSH ONETIME ONE Stop: 03/26/18 09:16 Last Admin: 03/26/18 09:10 Dose: 20 mg Furosemide (Lasix) 20 mg IVPUSH ONETIME ONE Stop: 03/26/18 16:01 Last Admin: 03/26/18 18:28 Dose: Not Given Furosemide (Lasix) 20 mg IVPUSH NOW ONE Stop: 03/27/18 10:01 Last Admin: 03/27/18 10:26 Dose: 20 mg Furosemide (Lasix) 20 mg IVPUSH ONETIME ONE Stop: 03/30/18 13:11 Last Admin: 03/30/18 13:36 Dose: 20 mg Furosemide (Lasix) 20 mg IVPUSH NOW ONE Stop: 03/31/18 11:55 Last Admin: 03/31/18 13:04 Dose: 20 mg Furosemide (Lasix) 20 mg IVPUSH NOW ONE Stop: 04/01/18 12:05 Last Admin: 04/01/18 12:43 Dose: 20 mg Furosemide (Lasix) 20 mg IVPUSH NOW ONE Stop: 04/02/18 15:46 Last Admin: 04/02/18 15:53 Dose: 20 mg Furosemide (Lasix) 40 mg IVPUSH NOW ONE Stop: 04/03/18 09:01 Last Admin: 04/03/18 09:45 Dose: 40 mg Furosemide (Lasix) 40 mg IVPUSH NOW ONE Stop: 04/04/18 15:31 Last Admin: 04/04/18 15:55 Dose: 40 mg Furosemide (Lasix) 40 mg IVPUSH NOW ONE Stop: 04/05/18 09:01 Last Admin: 04/05/18 10:15 Dose: 40 mg Glycopyrrolate (Robinul) Confirm Administered Dose 1 mg .ROUTE .STK-MED ONE Stop: 03/18/18 19:48 Heparin Sodium (Porcine) (Heparin Sodium) Confirm Administered Dose 5,000 units .ROUTE .STK-MED ONE Stop: 03/18/18 19:51 Heparin Sodium (Porcine) (Heparin Lock Flush 100 Units/Ml) Confirm Administered Dose 500 units .ROUTE .STK-MED ONE Stop: 03/22/18 12:17 Last Admin: 03/22/18 12:30 Dose: Not Given Heparin Sodium (Porcine) (Heparin Sodium) Confirm Administered Dose 5,000 units .ROUTE .STK-MED ONE Stop: 03/24/18 19:52 Last Admin: 03/24/18 20:33 Dose: 5,000 units Hydrocortisone Sodium Succinate (Solu-Cortef) 100 mg IVPUSH Q12H [facility] Last Admin: 03/28/18 20:15 Dose: 100 mg Hydrocortisone Sodium Succinate (Solu-Cortef) 100 mg IVPUSH DAILY [facility] Last Admin: 03/30/18 13:39 Dose: Not Given Hydromorphone HCl (Dilaudid) 0.5 mg IVPUSH ONETIME ONE Stop: 03/18/18 17:43 Last Admin: 03/18/18 17:47 Dose: 0.5 mg Hydromorphone HCl (Dilaudid) 1 mg IVPUSH ONETIME ONE Stop: 03/18/18 18:18 Last Admin: 03/18/18 18:27 Dose: 1 mg Sodium Chloride (Normal Saline) 1,000 mls @ 1,000 mls/hr IV ASDIRECTED [facility] Last Admin: 03/18/18 17:47 Dose: 1,000 mls/hr Sodium Chloride (Normal Saline) 1,000 mls @ 999 mls/hr IV ASDIRECTED [facility] Last Admin: 03/18/18 19:31 Dose: 999 mls/hr Meropenem 500 mg/ Sodium (Chloride) 50 mls @ 100 mls/hr IV ONETIME ONE Stop: 03/18/18 19:09 Last Admin: 03/18/18 19:01 Dose: 100 mls/hr Sodium Chloride (Normal Saline) Confirm Administered Dose 50 mls @ as directed .ROUTE .[facility] ONE Stop: 03/18/18 19:40 Last Admin: 03/18/18 20:19 Dose: Not Given Aztreonam 2 gm/ Sodium (Chloride) 50 mls @ 100 mls/hr IV ONETIME ONE Stop: 03/18/18 20:01 Last Admin: 03/18/18 20:44 Dose: 100 mls/hr Meropenem 500 mg/ Sodium (Chloride) 50 mls @ 100 mls/hr IV ONETIME ONE Stop: 03/18/18 20:00 Last Admin: 03/18/18 19:40 Dose: 100 mls/hr Sodium Chloride (Normal Saline) Confirm Administered Dose 250 mls @ as directed .ROUTE .STK-MED ONE Stop: 03/18/18 19:59 Lactated Ringer's (Ringers, Lactated) Confirm Administered Dose 1,000 mls @ as directed .ROUTE .[facility] ONE Stop: 03/18/18 19:59 Sodium Chloride (Normal Saline) Confirm Administered D[facility] 500 [facility]ls @ [facility] Stop: 03/18/18 19:59 Norepinephrine Bitartrate 8 mg (/ Dextrose/Water) 258 mls @ 3.87 mls/hr IV TITRATE [facility]; Protocol Last Admin: 03/19/18 11:45 Dose: 12 mcg/min, 23.22 mls/hr Lactated Ringer's (Ringers, Lactated) Confirm Administered Dose 1,000 mls @ as directed .ROUTE .[facility] ONE Stop: 03/18/18 21:42 Propofol (Diprivan 100 Ml) 100 mls @ 2.082 mls/hr IV TITRATE [facility]; Protocol Last Titration: 03/27/18 06:35 Dose: 10 mcg/kg/min, 4.164 mls/hr Aztreonam 1 gm/ Sodium (Chloride) 50 mls @ 100 mls/hr IV Q8H [facility] Last Admin: 03/19/18 05:29 Dose: 100 mls/hr Potassium Chloride/Dextrose/Sod Cl (D5 1/2 Ns W/ 20 Meq/L Kcl) 1,000 mls @ 150 mls/hr IV ASDIRECTED [facility] Last Admin: 03/18/18 23:11 Dose: 150 mls/hr Meropenem 1 gm/ Sodium (Chloride) 50 mls @ 100 mls/hr IV Q12H [facility] Stop: 03/29/18 22:00 Last Admin: 03/29/18 20:10 Dose: 100 mls/hr Lactated Ringer's (Ringers, Lactated) 1,000 mls @ 500 mls/hr IV ASDIRECTED [facility] Last Admin: 03/19/18 01:23 Dose: 500 mls/hr Vasopressin 100 units/ (Dextrose/Water) 255 mls @ 1.53 mls/hr IV TITRATE [facility]; Protocol Stop: 03/21/18 13:00 Last Titration: 03/21/18 11:03 Dose: 0.02 units/min, 3.06 mls/hr Lactated Ringer's (Ringers, Lactated) 1,000 mls @ 500 mls/hr IV BOLUS [facility] Stop: 03/19/18 05:29 Last Admin: 03/19/18 04:02 Dose: 500 mls/hr Aztreonam/Dextrose 1 gm/ (Premix) 50 mls @ 100 mls/hr IV Q8H [facility] Last Admin: 03/28/18 05:26 Dose: 100 mls/hr Lactated Ringer's (Ringers, Lactated) 1,000 mls @ 500 mls/hr IV .BOLUS ONE Stop: 03/19/18 14:59 Last Admin: 03/19/18 14:27 Dose: 500 mls/hr Lactated Ringer's (Ringers, Lactated) 1,000 mls @ 150 mls/hr IV ASDIRECTED [facility] Last Admin: 03/21/18 11:53 Dose: 150 mls/hr Norepinephrine Bitartrate 8 mg (/ Dextrose/Water) 250 mls @ 3.75 mls/hr IV TITRATE [facility]; Protocol Last Titration: 03/27/18 09:04 Dose: 4 mcg/min, 7.5 mls/hr Magnesium Sulfate 2 gm/ Premix 50 mls @ 25 mls/hr IV Q6H [facility] Stop: 03/20/18 17:59 Last Admin: 03/20/18 16:30 Dose: 25 mls/hr Vancomycin HCl 1.25 gm/ Sodium (Chloride) 250 mls @ 170 mls/hr IV Q24H [facility] Last Admin: 03/22/18 10:06 Dose: 170 mls/hr Vasopressin 40 units/ Dextrose (/Water) 100 mls @ 3 mls/hr IV TITRATE [facility]; Protocol Last Titration: 03/23/18 01:00 Dose: 0 units/min, 0 mls/hr Potassium Chloride 20 meq/ (Premix) 100 mls @ 50 mls/hr IV Q2H [facility] Stop: 03/21/18 22:59 Last Admin: 03/21/18 22:20 Dose: 50 mls/hr Potassium Chloride 20 meq/ (Premix) 100 mls @ 50 mls/hr IV Q2H [facility] Stop: 03/22/18 12:59 Last Admin: 03/22/18 11:30 Dose: 50 mls/hr Potassium Chloride 20 meq/ (Premix) 100 mls @ 50 mls/hr IV Q2H [facility] Stop: 03/22/18 17:29 Last Admin: 03/22/18 16:13 Dose: 50 mls/hr Potassium Chloride (Kcl 20 Meq In Water 100 Ml) 100 mls @ 50 mls/hr IV Q2H [facility] Stop: 03/23/18 01:59 Last Admin: 03/23/18 00:53 Dose: 50 mls/hr Potassium Chloride 40 meq/ (Premix) 100 mls @ 25 mls/hr IV ONETIME ONE Stop: 03/23/18 14:29 Last Admin: 03/23/18 10:31 Dose: 25 mls/hr Vancomycin HCl 1.4 gm/ Sodium (Chloride) 250 mls @ 170 mls/hr IV Q24H [facility] Last Admin: 03/24/18 11:13 Dose: 170 mls/hr Multivitamins/Minerals 10 ml/Chromium/Copper/Manganese/Seleni/Zn 1 ml/ Amino Ac/ Electrol/Dextrose/Calcium 1,011 mls @ 75 mls/hr IV .BY DURATION [facility] Last Admin: 03/25/18 22:34 Dose: 75 mls/hr Amino Ac/Electrol/Dextrose/Calcium (Clinimix E 5/15) 1,000 mls @ 75 mls/hr IV .BY DURATION [facility] Last Admin: 03/25/18 08:11 Dose: 75 mls/hr Vasopressin 100 units/ (Dextrose/Water) 255 mls @ 1.53 mls/hr IV TITRATE [facility]; Protocol Last Titration: 03/25/18 11:51 Dose: 0 units/min, 0 mls/hr Potassium Chloride 20 meq/ (Premix) 100 mls @ 50 mls/hr IV Q2H [facility] Stop: 03/24/18 13:59 Last Admin: 03/24/18 12:13 Dose: 50 mls/hr Multivitamins/Minerals 10 ml/Chromium/Copper/Manganese/Seleni/Zn 1 ml/ Amino Ac/ Electrol/Dextrose/Calcium 1,011 mls @ 75 mls/hr IV .BY DURATION [facility] Last Admin: 03/29/18 06:48 Dose: 75 mls/hr Amino Ac/Electrol/Dextrose/Calcium (Clinimix E 07/08) 1,000 mls @ 75 mls/hr IV .BY DURATION [facility] Last Admin: 03/29/18 20:12 Dose: 75 mls/hr Heparin Sodium (Porcine) 5,000 (units/ Sodium Chloride) 501 mls @ 5 mls/hr IV ASDIRECTED [facility] Last Admin: 03/27/18 12:50 Dose: 5 mls/hr Sodium Chloride (Normal Saline) 1,000 mls @ 50 mls/hr IV ASDIRECTED [facility] Last Admin: 03/30/18 13:36 Dose: 50 mls/hr Dextrose/Sodium Chloride (Dextrose 5%-1/2 Ns) 1,000 mls @ 75 mls/hr IV ASDIRECTED [facility] Last Admin: 03/31/18 23:53 Dose: 75 mls/hr Albumin Human (Albumin 25%) 25 gm in 100 mls @ 25 mls/hr IV Q24H [facility] Stop: 04/02/18 12:59 Last Admin: 04/01/18 08:13 Dose: 25 mls/hr Potassium Phosphate 20 mmole/ (Sodium Chloride) 256.6667 mls @ 85 mls/hr IV Q3H [facility] Stop: 04/01/18 18:59 Last Admin: 04/01/18 18:37 Dose: 85 mls/hr Dextrose/Sodium Chloride (Dextrose 5%-1/2 Ns) 1,000 mls @ 80 mls/hr IV ASDIRECTED [facility] Last Admin: 04/03/18 06:40 Dose: 80 mls/hr Cefazolin Sodium/Dextrose 2 gm (/ Premix) 50 mls @ 100 mls/hr IV ONCALL ONE Stop: 04/02/18 11:59 Last Admin: 04/02/18 13:59 Dose: 100 mls/hr Potassium Acetate 20 meq/ (Sodium Chloride) 110 mls @ 55 mls/hr IV Q2H [facility] Stop: 04/02/18 11:59 Last Admin: 04/02/18 10:10 Dose: 55 mls/hr Magnesium Sulfate 2 gm/ Premix 50 mls @ 25 mls/hr IV Q6H [facility] Stop: 04/05/18 07:59 Last Admin: 04/03/18 12:11 Dose: 25 mls/hr Albumin Human (Albumin 25%) 25 gm in 100 mls @ 25 mls/hr IV ONETIME ONE Stop: 04/02/18 17:59 Last Admin: 04/02/18 15:30 Dose: 25 mls/hr Potassium Chloride 20 meq/Lidocaine HCl 2 ml/ Sodium Chloride 112 mls @ 56 mls/ hr IV Q2H [facility] Stop: 04/03/18 17:59 Last Admin: 04/03/18 17:04 Dose: 56 mls/hr Potassium Phosphate 15 mmole/ (Sodium Chloride) 255 mls @ 128 mls/hr IV Q2H [facility] Stop: 04/06/18 13:59 Last Admin: 04/06/18 12:49 Dose: 128 mls/hr Insulin Human Lispro (Humalog) 0 unit SUBCUT Q6H [facility]; Protocol Last Admin: 03/30/18 16:32 Dose: Not Given Insulin Human Lispro (Humalog) 0 unit SUBCUT Q6H [facility]; Protocol Last Admin: 03/31/18 03:52 Dose: Not Given Insulin Human Lispro (Humalog) 0 unit SUBCUT QIDACANDBED [facility]; Protocol Stop: 04/12/18 11:01 Last Admin: 03/31/18 13:17 Dose: Not Given Meropenem (Merrem) Confirm Administered Dose 500 mg .ROUTE .STK-MED ONE Stop: 03/18/18 19:40 Last Admin: 03/18/18 20:19 Dose: Not Given Midazolam HCl (Versed 1 Mg/Ml) Confirm Administered Dose 2 mg .ROUTE .STK-MED ONE Stop: 04/02/18 12:59 Morphine Sulfate (Morphine) 4 mg IVPUSH Q2H PRN PRN Reason: Pain Last Admin: 03/29/18 07:34 Dose: 4 mg Neostigmine Methylsulfate (Neostigmine) Confirm Administered Dose 5 mg .ROUTE .STK-MED ONE Stop: 03/18/18 19:48 Non-Formulary Medication (Total Parenteral Nutrition, Central) 1,000 ml .XX .Continue Order [facility]; Protocol Stop: 03/24/18 11:31 Non-Formulary Medication (Total Parenteral Nutrition, Central) 1,000 ml .XX .Continue Order [facility]; Protocol Non-Formulary Medication (Total Parenteral Nutrition, Central) 1,000 ml .XX .Continue Order [facility]; Protocol Non-Formulary Medication (Total Parenteral Nutrition, Central) 1,000 ml .XX .Continue Order [facility]; Protocol Stop: 03/28/18 12:00 Nystatin (Mycostatin) 5 ml PO QID [facility] Last Admin: 04/04/18 15:25 Dose: 5 ml Ondansetron HCl (Zofran) 4 mg IVPUSH ONETIME ONE Stop: 03/18/18 18:18 Last Admin: 03/18/18 18:27 Dose: 4 mg Ondansetron HCl (Zofran) Confirm Administered Dose 4 mg .ROUTE .STK-MED ONE Stop: 03/18/18 19:48 Pantoprazole Sodium (Protonix Iv) 40 mg IVPUSH DAILY [facility] Last Admin: 03/28/18 08:34 Dose: 40 mg Phenylephrine HCl (Isaías-Synephrine) Confirm Administered Dose 10 mg .ROUTE .STK- MED ONE Stop: 03/18/18 20:05 Potassium Chloride (Klor-Con M20) 40 meq PO ONETIME ONE Stop: 04/03/18 13:16 Last Admin: 04/03/18 14:33 Dose: 40 meq Potassium Chloride (Klor-Con M20) 40 meq PO ONETIME ONE Stop: 04/03/18 17:01 Last Admin: 04/03/18 20:55 Dose: 40 meq Potassium Chloride (Klor-Con M20) 40 meq PO ONETIME ONE Stop: 04/04/18 09:01 Last Admin: 04/04/18 09:34 Dose: 40 meq Potassium Chloride (Klor-Con M20) 40 meq PO ONETIME ONE Stop: 04/04/18 17:01 Last Admin: 04/04/18 17:08 Dose: 40 meq Potassium Chloride (Klor-Con M20) 40 meq PO ONETIME ONE Stop: 04/05/18 09:01 Last Admin: 04/05/18 10:14 Dose: 40 meq Potassium Chloride (Klor-Con M20) 40 meq PO ONETIME ONE Stop: 04/05/18 17:01 Last Admin: 04/05/18 18:00 Dose: 40 meq Prednisone (Prednisone) 20 mg PO WITHBREAKFAST [facility] Last Admin: 03/30/18 08:59 Dose: 20 mg Propofol (Diprivan 20 Ml) Confirm Administered Dose 200 mg .ROUTE .STK-MED ONE Stop: 03/18/18 19:48 Propofol (Diprivan 20 Ml) Confirm Administered Dose 200 mg .ROUTE .STK-MED ONE Stop: 04/02/18 12:59 Rocuronium [place] (Zemuron) Confirm Administered Dose 50 mg .ROUTE .STK-MED ONE Stop: 03/18/18 19:48 Succinylcholine Chloride (Quelicin) Confirm Administered Dose 200 mg .ROUTE .STK -MED ONE Stop: 03/18/18 19:48 Vancomycin HCl (Vancomycin) 1 gm IV .PHARMACY TO DOSE [facility] Stop: 03/21/18 16:00 - Exam Quality Assessment: Supplemental Oxygen General: Alert, Oriented, Cooperative, No Acute Distress, Lethargic Neck: Supple Lungs: Normal Respiratory Effort, Crackles (both bases, mild ), Rhonchi (upper resp loose rhonchi ). No: Wheezing Cardiovascular: Regular Rate, Regular Rhythm GI/Abdominal Exam: No Distention Extremities: Pedal Edema Skin: Warm, Dry Psy/Mental Status: Alert, Normal Affect - Problem List Review Problem List Initiated/Reviewed/Updated: Yes - Plan Plan:: ASSESSMENT AND PLAN SIGMOID COLON PERFORATION RESULTING IN ACUTE ABDOMEN AND SEPTIC SHOCK - status post exploratory laparotomy with partial sigmoid colon resection and creation of a colostomy. Respiratory status has been stable, he is status post PEG feeding tube placement by Dr. Linn. Oral intake seems to be slowly improving but was suboptimal. Difficulty tolerating tube feeds. -Continue tube feedings today as ordered by Dr. Linn when safe postoperatively -Nothing by mouth at this time -Post operative surgical care per surgical team -Oxycodone as needed for pain -Saline lock IV WOUND DEHISCENCE - concern for underlying infection leading to the dehiscence. Surgical intervention is planned. -Surgery later in the day SEPTIC SHOCK - resolved ACUTE HYPOXIC RESPIRATORY FAILURE - respiratory status has remained stable since extubation. He is requiring some supplemental oxygen which I think is related to excess volume. -Coughing, deep breathing and suctioning as able -Consider diuresis once stable after surgery COPD - [id number] smoking history but no evidence for exacerbation at this time. -Nebulized albuterol as needed -Vigorous pulmonary toilet during the postoperative period HISTORY OF LUNG AND PROSTATE CARCINOMA - lung cancer felt to be stable, had been receiving treatment for management of prostate carcinoma prior to admission MAINTENANCE ISSUES -DVT prophylaxis; SCUDs -GI prophylaxis; Protonix 40 mg daily -Sorto catheter; removed -Nutrition; nothing by mouth DISPOSITION - anticipate discharge to correction after the hospital stay. Discharge had been considered for today but the patient require surgical intervention for his wound dehiscence. Stephon Christy M.D.
[2018-04-07] MEDS ORDERED: Albuterol/Ipratropium 3.0-0.5 MG/3 ML Neb Soln NEB ONE (10:30)
[2018-04-07] MEDS ORDERED: Rocuronium 50 MG/5 ML Vial ONE (10:55)
[2018-04-07] MEDS ORDERED: Neostigmine Methylsulfate 1 MG/ML 5 ML Syringe ONE (10:55)
[2018-04-07] MEDS ORDERED: Ondansetron 4 MG/2 ML SDV ONE (10:55)
[2018-04-07] MEDS ORDERED: Glycopyrrolate 0.2 MG/ML 5 ML MDV ONE (10:55)
[2018-04-07] MEDS ORDERED: Dexamethasone 4 MG/ML SDV ONE (10:55)
[2018-04-07] MEDS ORDERED: Propofol 200 MG/20 ML SDV ONE (10:55)
[2018-04-07] MEDS ORDERED: fentaNYL 250 MCG/5 ML SDV ONE (10:55)
[2018-04-07] MEDS ORDERED: Ropivacaine 34 ML, Dexamethasone 8 MG, EPINEPHrine 0.4 MG, Sodium Chloride 0.9% 43.6 ML NERVRT SCH ×4 (11:00)
[2018-04-07] MEDS ORDERED: Bupivacaine 0.5% 50 ML MDV ONE (12:05)
[2018-04-07] MEDS ORDERED: Lidocaine 1% with EPINEPHrine 1:100,000 50 ML MDV ONE (12:05)
[2018-04-07] MEDS: Meropenem 500 MG in Sodium Chloride 0.9% 50 ML IV ONE ×2 (14:00→15:13)
[2018-04-07] MEDS ORDERED: Meropenem 500 MG SDV ONE ×2 (14:37→15:07)
[2018-04-07] MEDS ORDERED: Lactated Ringers 1,000 ML ONE (15:34)
[2018-04-07] MEDS ORDERED: Linezolid 600 MG in Premix Bag 1 BAG IV ONE (16:30)
[2018-04-07] MEDS: Dextrose 5%-Lactated Ringers 1,000 ML IV SCH ×2 (17:38→23:13)
[2018-04-07] MEDS: Meropenem 500 MG in Sodium Chloride 0.9% 50 ML IV SCH (21:05)
[2018-04-08] MEDS: Linezolid 600 MG in Premix Bag 1 BAG IV SCH ×2 (03:12→16:22)
--- NOTE | 2018-04-08 04:26 | CRLCR ---
INDICATION: Followup line placement TECHNIQUE: Chest radiograph 1 view on 2 films COMPARISON: 04/07/2018 FINDINGS: Mediastinum: The mediastinum is normal in appearance. The heart silhouette is normal in size and morphology. Left subclavian central line present with tip difficult to visualize but likely within the cavoatrial region. Lung: Mild perihilar edema and bibasilar atelectasis present without significant interval change. No sign of pleural effusion seen. No pneumothorax is identified. Musculoskeletal: Moderate diffuse osteopenia noted. There are 2 ribbon like density seen in the upper abdomen which may be due to surgical drains. A PEG tube is partially visualized. IMPRESSION: 1. Left subclavian central line present with tip difficult to visualize but likely within the cavoatrial region. Dictated by Arnaud Hdz MD @ 04/08/2018 4:23:46 AM Dictated by: Arnaud Hdz MD @ 04/08/2018 04:24:00 (Electronically Signed)
[2018-04-08] MEDS: Pantoprazole 40 MG Vial IV SCH (05:07)
[2018-04-08] MEDS: Meropenem 500 MG in Sodium Chloride 0.9% 50 ML IV SCH ×3 (05:14→21:34)
[2018-04-08] MEDS: Magnesium Sulfate/Water 2 GM in Premix Bag 1 BAG IV SCH ×4 (05:14→23:34)
[2018-04-08] MEDS: Dextrose 5%-Lactated Ringers 1,000 ML IV SCH ×3 (06:21→22:39)
[2018-04-08] MEDS: Albuterol/Ipratropium 3.0-0.5 MG/3 ML Neb Soln NEB SCH ×4 (07:27→21:33)
[2018-04-08] MEDS ORDERED: Central Total Parenteral Nutrition Bag SCH (08:00)
--- NOTE | 2018-04-08 09:56 | PCM.PN ---
- General Info Date of Service: 04/08/18 Subjective Update: No acute events overnight. Yesterday the patient had an exploratory laparotomy with drainage of an abscess as well as a small bowel resection after a wound dehiscence. He reports moderately severe pain this morning. He is somewhat lethargic. He feels a little short of breath. He has not had any fevers. Cultures from the abscess drainage are pending. Functional Status: Denies: Pain Controlled - Review of Systems General: Reports: Weakness Gastrointestinal: Reports: Abdominal Pain - Patient Data Vitals - Most Recent: Last Vital Signs Temp 35.9 C 04/08/18 07:30 Pulse 87 04/08/18 07:30 Resp 20 04/08/18 07:30 BP 111/55 L 04/08/18 07:30 Pulse Ox 91 L 04/08/18 07:30 Weight - Most Recent: 68.719 kg I&O - Last 24 Hours: Intake & Output 04/07/18 04/08/18 04/08/18 22:59 06:59 14:59 Intake Total 100 2208 Output Total 660 435 Balance -560 1773 Lab Results Last 24 Hours: Laboratory Results - last 24 hr 04/08/18 04/08/18 Range/Units 04:36 04:36 WBC 14.9 H (4.5-11.0) K/uL RBC 3.20 L (4.30-5.90) M/uL Hgb 9.4 L (12.0-15.0) g/dL Hct 30.7 L (40.0-54.0) % MCV 96 (80-98) fL MCH 29 (27-31) pg MCHC 31 L (32-36) % Plt Count 283 (150-400) K/uL Neut % (Auto) 94 H (36-66) % Lymph % (Auto) 3 L (24-44) % [place] % (Auto) 2 (2-6) % Eos % (Auto) 0 L (2-4) % Baso % (Auto) 0 (0-1) % Sodium 139 L (140-148) mmol/L Potassium 4.4 (3.6-5.2) mmol/L Chloride 106 (100-108) mmol/L Carbon Dioxide 26 (21-32) mmol/L Anion Gap 11.4 (5.0-14.0) mmol/L BUN 13 (7-18) mg/dL Creatinine 1.1 (0.8-1.3) mg/dL Est Cr Clr Drug Dosing 54.11 mL/min Estimated GFR (MDRD) > 60 (>60) Glucose 251 H (74-106) mg/dL Calcium 7.0 L (8.5-10.1) mg/dL Phosphorus 3.5 (2.5-4.9) mg/dL Total Bilirubin 0.2 (0.2-1.0) mg/dL AST 17 (15-37) U/L ALT 20 (12-78) U/L Alkaline Phosphatase 79 (46-116) U/L NT-Pro-B Natriuret Pep 1740 H (5-450) pg/mL Total Protein 5.1 L (6.4-8.2) g/dL Albumin 1.5 L (3.4-5.0) g/dL Globulin 3.6 H (2.3-3.5) g/dL Albumin/Globulin Ratio 0.4 L (1.2-2.2) Dante Results Last 24 Hours: Microbiology 04/07/18 15:09 Gram Stain - Final Abdomen - Abscess Med Orders - Current: Current Medications Albuterol (Proventil Neb Soln) 2.5 mg NEB Q4H PRN PRN Reason: Dyspnea Last Admin: 04/05/18 18:03 Dose: 2.5 mg Albuterol/Ipratropium (Duoneb 3.0-0.5 Mg/3 Ml) 3 ml NEB QIDRT [facility] Last Admin: 04/08/18 07:27 Dose: 3 ml Dimethicone/Zinc Oxide (Rash Relief-Zinc Oxide [place]) 0 gm TOP ASDIRECTED PRN PRN Reason: Rash Last Admin: 03/28/18 16:55 Dose: 1 spray Furosemide (Lasix) 40 mg IVPUSH ONETIME ONE Stop: 04/08/18 12:01 Heparin Sodium (Porcine) (Heparin Lock Flush 100 Units/Ml) 500 units FLUSH ASDIRECTED PRN PRN Reason: IV Use Last Admin: 03/28/18 14:38 Dose: 500 units Linezolid 600 mg/ Premix 300 mls @ 300 mls/hr IV Q12H [facility] Last Admin: 04/08/18 03:12 Dose: 300 mls/hr Meropenem 500 mg/ Sodium (Chloride) 50 mls @ 100 mls/hr IV Q8H [facility] Last Admin: 04/08/18 05:14 Dose: 100 mls/hr Magnesium Sulfate 2 gm/ Premix 50 mls @ 25 mls/hr IV Q6H [facility] Stop: 04/09/18 13:59 Last Admin: 04/08/18 05:14 Dose: 25 mls/hr Dextrose/Lactated Ringer's (Dextrose 5%-Lactated Ringers) 1,000 mls @ 100 drops /hr IV ASDIRECTED [facility] Multivitamins/Minerals 10 ml/Chromium/Copper/Manganese/Seleni/Zn 1 ml/ Amino Ac/ Electrol/Dextrose/Calcium 1,011 mls @ 82 mls/hr IV .BY DURATION [facility] Amino Ac/Electrol/Dextrose/Calcium (Clinimix E 15) 1,000 mls @ 82 mls/hr IV .BY DURATION [facility] Morphine Sulfate (Morphine Mortgage Branch Manager 150 Mg In 30 Ml) 0 mg IV ASDIRECTED PRN; Protocol PRN Reason: Pain Last Admin: 04/07/18 10:00 Dose: 150 mg Naloxone HCl (Narcan) 0.1 mg IV ASDIRECTED PRN PRN Reason: decreased respiratory rate Pantoprazole Sodium (Protonix Iv) 40 mg IV Q24H [facility] Last Admin: 04/08/18 05:07 Dose: 40 mg Discontinued Medications Acetaminophen (Tylenol) 650 mg RECTAL Q4H PRN PRN Reason: Fever Acetaminophen (Tylenol) 650 mg PO Q4H PRN PRN Reason: Pain/Fever Last Admin: 04/05/18 20:14 Dose: 650 mg Albuterol/Ipratropium (Duoneb 3.0-0.5 Mg/3 Ml) 3 ml NEB Q4H PRN PRN Reason: Dyspnea Albuterol/Ipratropium (Duoneb 3.0-0.5 Mg/3 Ml) 3 ml NEB ONETIME ONE Stop: 04/07/18 10:31 Last Admin: 04/07/18 10:26 Dose: Not Given Bupivacaine HCl (Marcaine 0.5%) Confirm Administered Dose 50 ml .ROUTE .STK-MED ONE Stop: 04/07/18 12:06 Ropivacaine 34 ml/Dexamethasone 8 mg/Epinephrine HCl 0.4 mg/ Sodium Chloride 43.6 ml 0 ml NERVRT ASDIRECTED [facility] Last Admin: 04/07/18 16:01 Dose: 80 syringe Dexamethasone (Dexamethasone) Confirm Administered Dose 4 mg .ROUTE .STK-MED ONE Stop: 03/18/18 19:48 Dexamethasone (Dexamethasone) Confirm Administered Dose 4 mg .ROUTE .STK-MED ONE Stop: 04/07/18 10:56 Epinephrine HCl (Adrenalin) Confirm Administered Dose 1 mg .ROUTE .STK-MED ONE Stop: 03/18/18 21:07 Erythromycin Ethylsuccinate (Eryped 400) 125 mg PO Q6H [facility] Last Admin: 04/07/18 15:14 Dose: Not Given Fentanyl (Sublimaze) Confirm Administered Dose 250 mcg .ROUTE .STK-MED ONE Stop: 03/18/18 19:48 Fentanyl (Sublimaze) Confirm Administered Dose 250 mcg .ROUTE .STK-MED ONE Stop: 04/02/18 12:59 Fentanyl (Sublimaze) Confirm Administered Dose 250 mcg .ROUTE .STK-MED ONE Stop: 04/07/18 10:56 Furosemide (Lasix) 20 mg IVPUSH ONETIME ONE Stop: 03/23/18 09:46 Last Admin: 03/23/18 10:18 Dose: 20 mg Furosemide (Lasix) 20 mg IVPUSH NOW ONE Stop: 03/25/18 10:01 Last Admin: 03/25/18 10:17 Dose: 20 mg Furosemide (Lasix) 20 mg IVPUSH ONETIME ONE Stop: 03/26/18 09:16 Last Admin: 03/26/18 09:10 Dose: 20 mg Furosemide (Lasix) 20 mg IVPUSH ONETIME ONE Stop: 03/26/18 16:01 Last Admin: 03/26/18 18:28 Dose: Not Given Furosemide (Lasix) 20 mg IVPUSH NOW ONE Stop: 03/27/18 10:01 Last Admin: 03/27/18 10:26 Dose: 20 mg Furosemide (Lasix) 20 mg IVPUSH ONETIME ONE Stop: 03/30/18 13:11 Last Admin: 03/30/18 13:36 Dose: 20 mg Furosemide (Lasix) 20 mg IVPUSH NOW ONE Stop: 03/31/18 11:55 Last Admin: 03/31/18 13:04 Dose: 20 mg Furosemide (Lasix) 20 mg IVPUSH NOW ONE Stop: 04/01/18 12:05 Last Admin: 04/01/18 12:43 Dose: 20 mg Furosemide (Lasix) 20 mg IVPUSH NOW ONE Stop: 04/02/18 15:46 Last Admin: 04/02/18 15:53 Dose: 20 mg Furosemide (Lasix) 40 mg IVPUSH NOW ONE Stop: 04/03/18 09:01 Last Admin: 04/03/18 09:45 Dose: 40 mg Furosemide (Lasix) 40 mg IVPUSH NOW ONE Stop: 04/04/18 15:31 Last Admin: 04/04/18 15:55 Dose: 40 mg Furosemide (Lasix) 40 mg IVPUSH NOW ONE Stop: 04/05/18 09:01 Last Admin: 04/05/18 10:15 Dose: 40 mg Glycopyrrolate (Robinul) Confirm Administered Dose 1 mg .ROUTE .STK-MED ONE Stop: 03/18/18 19:48 Glycopyrrolate (Robinul) Confirm Administered Dose 1 mg .ROUTE .STK-MED ONE Stop: 04/07/18 10:56 Heparin Sodium (Porcine) (Heparin Sodium) Confirm Administered Dose 5,000 units .ROUTE .STK-MED ONE Stop: 03/18/18 19:51 Heparin Sodium (Porcine) (Heparin Lock Flush 100 Units/Ml) Confirm Administered Dose 500 units .ROUTE .STK-MED ONE Stop: 03/22/18 12:17 Last Admin: 03/22/18 12:30 Dose: Not Given Heparin Sodium (Porcine) (Heparin Sodium) Confirm Administered Dose 5,000 units .ROUTE .STK-MED ONE Stop: 03/24/18 19:52 Last Admin: 03/24/18 20:33 Dose: 5,000 units Heparin Sodium (Porcine) (Heparin Lock Flush 100 Units/Ml) Confirm Administered Dose 1,000 units .ROUTE .STK-MED ONE Stop: 04/07/18 12:06 Last Admin: 04/07/18 14:30 Dose: 500 units Hydrocortisone Sodium Succinate (Solu-Cortef) 100 mg IVPUSH Q12H [facility] Last Admin: 03/28/18 20:15 Dose: 100 mg Hydrocortisone Sodium Succinate (Solu-Cortef) 100 mg IVPUSH DAILY [facility] Last Admin: 03/30/18 13:39 Dose: Not Given Hydromorphone HCl (Dilaudid) 0.5 mg IVPUSH ONETIME ONE Stop: 03/18/18 17:43 Last Admin: 03/18/18 17:47 Dose: 0.5 mg Hydromorphone HCl (Dilaudid) 1 mg IVPUSH ONETIME ONE Stop: 03/18/18 18:18 Last Admin: 03/18/18 18:27 Dose: 1 mg Sodium Chloride (Normal Saline) 1,000 mls @ 1,000 mls/hr IV ASDIRECTED [facility] Last Admin: 03/18/18 17:47 Dose: 1,000 mls/hr Sodium Chloride (Normal Saline) 1,000 mls @ 999 mls/hr IV ASDIRECTED [facility] Last Admin: 03/18/18 19:31 Dose: 999 mls/hr Meropenem 500 mg/ Sodium (Chloride) 50 mls @ 100 mls/hr IV ONETIME ONE Stop: 03/18/18 19:09 Last Admin: 03/18/18 19:01 Dose: 100 mls/hr Sodium Chloride (Normal Saline) Confirm Administered Dose 50 mls @ as directed .ROUTE .STK-MED ONE Stop: 03/18/18 19:40 Last Admin: 03/18/18 20:19 Dose: Not Given Aztreonam 2 gm/ Sodium (Chloride) 50 mls @ 100 mls/hr IV ONETIME ONE Stop: 03/18/18 20:01 Last Admin: 03/18/18 20:44 Dose: 100 mls/hr Meropenem 500 mg/ Sodium (Chloride) 50 mls @ 100 mls/hr IV ONETIME ONE Stop: 03/18/18 20:00 Last Admin: 03/18/18 19:40 Dose: 100 mls/hr Sodium Chloride (Normal Saline) Confirm Administered Dose 250 mls @ as directed .ROUTE .STK-MED ONE Stop: 03/18/18 19:59 Lactated Ringer's (Ringers, Lactated) Confirm Administered Dose 1,000 mls @ as directed .ROUTE .STK-MED ONE Stop: 03/18/18 19:59 Sodium Chloride (Normal Saline) Confirm Administered Dose 500 mls @ as directed .ROUTE .STK-MED ONE Stop: 03/18/18 19:59 Norepinephrine Bitartrate 8 mg (/ Dextrose/Water) 258 mls @ 3.87 mls/hr IV TITRATE [facility]; Protocol Last Admin: 03/19/18 11:45 Dose: 12 mcg/min, 23.22 mls/hr Lactated Ringer's (Ringers, Lactated) Confirm Administered Dose 1,000 mls @ as directed .ROUTE .STK-MED ONE Stop: 03/18/18 21:42 Propofol (Diprivan 100 Ml) 100 mls @ 2.082 mls/hr IV TITRATE [facility]; Protocol Last Titration: 03/27/18 06:35 Dose: 10 mcg/kg/min, 4.164 mls/hr Aztreonam 1 gm/ Sodium (Chloride) 50 mls @ 100 mls/hr IV Q8H [facility] Last Admin: 03/19/18 05:29 Dose: 100 mls/hr Potassium Chloride/Dextrose/Sod Cl (D5 1/2 Ns W/ 20 Meq/L Kcl) 1,000 mls @ 150 mls/hr IV ASDIRECTED [facility] Last Admin: 03/18/18 23:11 Dose: 150 mls/hr Meropenem 1 gm/ Sodium (Chloride) 50 mls @ 100 mls/hr IV Q12H [facility] Stop: 03/29/18 22:00 Last Admin: 03/29/18 20:10 Dose: 100 mls/hr Lactated Ringer's (Ringers, Lactated) 1,000 mls @ 500 mls/hr IV ASDIRECTED [facility] Last Admin: 03/19/18 01:23 Dose: 500 mls/hr Vasopressin 100 units/ (Dextrose/Water) 255 mls @ 1.53 mls/hr IV TITRATE [facility]; Protocol Stop: 03/21/18 13:00 Last Titration: 03/21/18 11:03 Dose: 0.02 units/min, 3.06 mls/hr Lactated Ringer's (Ringers, Lactated) 1,000 mls @ 500 mls/hr IV BOLUS [facility] Stop: 03/19/18 05:29 Last Admin: 03/19/18 04:02 Dose: 500 mls/hr Aztreonam/Dextrose 1 gm/ (Premix) 50 mls @ 100 mls/hr IV Q8H [facility] Last Admin: 03/28/18 05:26 Dose: 100 mls/hr Lactated Ringer's (Ringers, Lactated) 1,000 mls @ 500 mls/hr IV .BOLUS ONE Stop: 03/19/18 14:59 Last Admin: 03/19/18 14:27 Dose: 500 mls/hr Lactated Ringer's (Ringers, Lactated) 1,000 mls @ 150 mls/hr IV ASDIRECTED [facility] Last Admin: 03/21/18 11:53 Dose: 150 mls/hr Norepinephrine Bitartrate 8 mg (/ Dextrose/Water) 250 mls @ 3.75 mls/hr IV TITRATE [facility]; Protocol Last Titration: 03/27/18 09:04 Dose: 4 mcg/min, 7.5 mls/hr Magnesium Sulfate 2 gm/ Premix 50 mls @ 25 mls/hr IV Q6H [facility] Stop: 03/20/18 17:59 Last Admin: 03/20/18 16:30 Dose: 25 mls/hr Vancomycin HCl 1.25 gm/ Sodium (Chloride) 250 mls @ 170 mls/hr IV Q24H [facility] Last Admin: 03/22/18 10:06 Dose: 170 mls/hr Vasopressin 40 units/ Dextrose (/Water) 100 mls @ 3 mls/hr IV TITRATE [facility]; Protocol Last Titration: 03/23/18 01:00 Dose: 0 units/min, 0 mls/hr Potassium Chloride 20 meq/ (Premix) 100 mls @ 50 mls/hr IV Q2H [facility] Stop: 03/21/18 22:59 Last Admin: 03/21/18 22:20 Dose: 50 mls/hr Potassium Chloride 20 meq/ (Premix) 100 mls @ 50 mls/hr IV Q2H [facility] Stop: 03/22/18 12:59 Last Admin: 03/22/18 11:30 Dose: 50 mls/hr Potassium Chloride 20 meq/ (Premix) 100 mls @ 50 mls/hr IV Q2H [facility] Stop: 03/22/18 17:29 Last Admin: 03/22/18 16:13 Dose: 50 mls/hr Potassium Chloride (Kcl 20 Meq In Water 100 Ml) 100 mls @ 50 mls/hr IV Q2H [facility] Stop: 03/23/18 01:59 Last Admin: 03/23/18 00:53 Dose: 50 mls/hr Potassium Chloride 40 meq/ (Premix) 100 mls @ 25 mls/hr IV ONETIME ONE Stop: 03/23/18 14:29 Last Admin: 03/23/18 10:31 Dose: 25 mls/hr Vancomycin HCl 1.4 gm/ Sodium (Chloride) 250 mls @ 170 mls/hr IV Q24H [facility] Last Admin: 03/24/18 11:13 Dose: 170 mls/hr Multivitamins/Minerals 10 ml/Chromium/Copper/Manganese/Seleni/Zn 1 ml/ Amino Ac/ Electrol/Dextrose/Calcium 1,011 mls @ 75 mls/hr IV .BY DURATION [facility] Last Admin: 03/25/18 22:34 Dose: 75 mls/hr Amino Ac/Electrol/Dextrose/Calcium (Clinimix E 5/15) 1,000 mls @ 75 mls/hr IV .BY DURATION [facility] Last Admin: 03/25/18 08:11 Dose: 75 mls/hr Vasopressin 100 units/ (Dextrose/Water) 255 mls @ 1.53 mls/hr IV TITRATE [facility]; Protocol Last Titration: 03/25/18 11:51 Dose: 0 units/min, 0 mls/hr Potassium Chloride 20 meq/ (Premix) 100 mls @ 50 mls/hr IV Q2H [facility] Stop: 03/24/18 13:59 Last Admin: 03/24/18 12:13 Dose: 50 mls/hr Multivitamins/Minerals 10 ml/Chromium/Copper/Manganese/Seleni/Zn 1 ml/ Amino Ac/ Electrol/Dextrose/Calcium 1,011 mls @ 75 mls/hr IV .BY DURATION [facility] Last Admin: 03/29/18 06:48 Dose: 75 mls/hr Amino Ac/Electrol/Dextrose/Calcium (Clinimix E 5/15) 1,000 mls @ 75 mls/hr IV .BY DURATION [facility] Last Admin: 03/29/18 20:12 Dose: 75 mls/hr Heparin Sodium (Porcine) 5,000 (units/ Sodium Chloride) 501 mls @ 5 mls/hr IV ASDIRECTED [facility] Last Admin: 03/27/18 12:50 Dose: 5 mls/hr Sodium Chloride (Normal Saline) 1,000 mls @ 50 mls/hr IV ASDIRECTED [facility] Last Admin: 03/30/18 13:36 Dose: 50 mls/hr Dextrose/Sodium Chloride (Dextrose 5%-1/2 Ns) 1,000 mls @ 75 mls/hr IV ASDIRECTED [facility] Last Admin: 03/31/18 23:53 Dose: 75 mls/hr Albumin Human (Albumin 25%) 25 gm in 100 mls @ 25 mls/hr IV Q24H [facility] Stop: 04/02/18 12:59 Last Admin: 04/01/18 08:13 Dose: 25 mls/hr Potassium Phosphate 20 mmole/ (Sodium Chloride) 256.6667 mls @ 85 mls/hr IV Q3H [facility] Stop: 04/01/18 18:59 Last Admin: 04/01/18 18:37 Dose: 85 mls/hr Dextrose/Sodium Chloride (Dextrose 5%-1/2 Ns) 1,000 mls @ 80 mls/hr IV ASDIRECTED [facility] Last Admin: 04/03/18 06:40 Dose: 80 mls/hr Cefazolin Sodium/Dextrose 2 gm (/ Premix) 50 mls @ 100 mls/hr IV ONCALL ONE Stop: 04/02/18 11:59 Last Admin: 04/02/18 13:59 Dose: 100 mls/hr Potassium Acetate 20 meq/ (Sodium Chloride) 110 mls @ 55 mls/hr IV Q2H [facility] Stop: 04/02/18 11:59 Last Admin: 04/02/18 10:10 Dose: 55 mls/hr Magnesium Sulfate 2 gm/ Premix 50 mls @ 25 mls/hr IV Q6H [facility] Stop: 04/05/18 07:59 Last Admin: 04/03/18 12:11 Dose: 25 mls/hr Albumin Human (Albumin 25%) 25 gm in 100 mls @ 25 mls/hr IV ONETIME ONE Stop: 04/02/18 17:59 Last Admin: 04/02/18 15:30 Dose: 25 mls/hr Potassium Chloride 20 meq/Lidocaine HCl 2 ml/ Sodium Chloride 112 mls @ 56 mls/ hr IV Q2H [facility] Stop: 04/03/18 17:59 Last Admin: 04/03/18 17:04 Dose: 56 mls/hr Magnesium Sulfate 2 gm/ Premix 50 mls @ 25 mls/hr IV Q6H [facility] Stop: 04/08/18 03:59 Last Admin: 04/07/18 15:14 Dose: Not Given Potassium Phosphate 15 mmole/ (Sodium Chloride) 255 mls @ 128 mls/hr IV Q2H [facility] Stop: 04/06/18 13:59 Last Admin: 04/06/18 12:49 Dose: 128 mls/hr Dextrose/Lactated Ringer's (Dextrose 5%-Lactated Ringers) 1,000 mls @ 100 mls/ hr IV ASDIRECTED [facility] Last Admin: 04/07/18 08:44 Dose: 100 mls/hr Meropenem 500 mg/ Sodium (Chloride) 50 mls @ 100 mls/hr IV ONCALL ONE Stop: 04/07/18 11:59 Last Admin: 04/07/18 15:13 Dose: Not Given Linezolid (Zyvox) Confirm Administered Dose 300 mls @ as directed .ROUTE .STK- MED ONE Stop: 04/07/18 15:26 Lactated Ringer's (Ringers, Lactated) Confirm Administered Dose 1,000 mls @ as directed .ROUTE .STK-MED ONE Stop: 04/07/18 15:35 Linezolid 600 mg/ Premix 300 mls @ 300 mls/hr IV ONETIME ONE Stop: 04/07/18 17:29 Last Admin: 04/07/18 16:25 Dose: 300 mls/hr Dextrose/Lactated Ringer's (Dextrose 5%-Lactated Ringers) 1,000 mls @ 175 mls/ hr IV ASDIRECTED [facility] Last Admin: 04/08/18 06:21 Dose: 175 mls/hr Insulin Human Lispro (Humalog) 0 unit SUBCUT Q6H [facility]; Protocol Last Admin: 03/30/18 16:32 Dose: Not Given Insulin Human Lispro (Humalog) 0 unit SUBCUT Q6H [facility]; Protocol Last Admin: 03/31/18 03:52 Dose: Not Given Insulin Human Lispro (Humalog) 0 unit SUBCUT QIDACANDBED [facility]; Protocol Stop: 04/12/18 11:01 Last Admin: 03/31/18 13:17 Dose: Not Given Lidocaine/Epinephrine (Xylocaine 1% With Epinephrine 1:100,000) Confirm Administered Dose 50 ml .ROUTE .STK-MED ONE Stop: 04/07/18 12:06 Linezolid (Zyvox) 600 mg IRR .STK-MED ONE Stop: 04/07/18 16:06 Last Admin: 04/07/18 16:05 Dose: 600 mg Loperamide HCl (Imodium) 2 mg PO ASDIRECTED PRN PRN Reason: DIARRHEA Melatonin (Melatonin) 9 mg PO BEDTIME [facility] Last Admin: 04/06/18 21:40 Dose: 9 mg Meropenem (Merrem) Confirm Administered Dose 500 mg .ROUTE .STK-MED ONE Stop: 03/18/18 19:40 Last Admin: 03/18/18 20:19 Dose: Not Given Meropenem (Merrem) Confirm Administered Dose 500 mg .ROUTE .STK-MED ONE Stop: 04/07/18 14:38 Last Admin: 04/07/18 16:00 Dose: 500 mg Meropenem (Merrem) Confirm Administered Dose 500 mg .ROUTE .STK-MED ONE Stop: 04/07/18 15:08 Last Admin: 04/07/18 16:05 Dose: 500 mg Midazolam HCl (Versed 1 Mg/Ml) Confirm Administered Dose 2 mg .ROUTE .STK-MED ONE Stop: 04/02/18 12:59 Morphine Sulfate (Morphine) 4 mg IVPUSH Q2H PRN PRN Reason: Pain Last Admin: 03/29/18 07:34 Dose: 4 mg Neostigmine Methylsulfate (Neostigmine) Confirm Administered Dose 5 mg .ROUTE .STK-MED ONE Stop: 03/18/18 19:48 Neostigmine Methylsulfate (Neostigmine) Confirm Administered Dose 5 mg .ROUTE .STK-MED ONE Stop: 04/07/18 10:56 Non-Formulary Medication (Total Parenteral Nutrition, Central) 1,000 ml .XX .Continue Order [facility]; Protocol Stop: 03/24/18 11:31 Non-Formulary Medication (Total Parenteral Nutrition, Central) 1,000 ml .XX .Continue Order [facility]; Protocol Non-Formulary Medication (Total Parenteral Nutrition, Central) 1,000 ml .XX .Continue Order [facility]; Protocol Non-Formulary Medication (Total Parenteral Nutrition, Central) 1,000 ml .XX .Continue Order [facility]; Protocol Stop: 03/28/18 12:00 Non-Formulary Medication (Total Parenteral Nutrition, Central) 1,000 ml .XX .Continue Order [facility] Stop: 04/08/18 08:01 Nystatin (Mycostatin) 5 ml PO QID [facility] Last Admin: 04/04/18 15:25 Dose: 5 ml Ondansetron HCl (Zofran) 4 mg IVPUSH ONETIME ONE Stop: 03/18/18 18:18 Last Admin: 03/18/18 18:27 Dose: 4 mg Ondansetron HCl (Zofran) Confirm Administered Dose 4 mg .ROUTE .STK-MED ONE Stop: 03/18/18 19:48 Ondansetron HCl (Zofran) Confirm Administered Dose 4 mg .ROUTE .STK-MED ONE Stop: 04/07/18 10:56 Oxycodone HCl (Oxycodone) 5 mg PO Q4H PRN PRN Reason: Pain (moderate 4-6) Last Admin: 04/06/18 05:19 Dose: 5 mg Pantoprazole Sodium (Protonix Iv) 40 mg IVPUSH DAILY [facility] Last Admin: 03/28/18 08:34 Dose: 40 mg Pantoprazole Sodium (Protonix) 40 mg PO ACBREAKFAST [facility] Last Admin: 04/07/18 08:10 Dose: 40 mg Phenylephrine HCl (Isaías-Synephrine) Confirm Administered Dose 10 mg .ROUTE .STK- MED ONE Stop: 03/18/18 20:05 Potassium Chloride (Klor-Con M20) 40 meq PO ONETIME ONE Stop: 04/03/18 13:16 Last Admin: 04/03/18 14:33 Dose: 40 meq Potassium Chloride (Klor-Con M20) 40 meq PO ONETIME ONE Stop: 04/03/18 17:01 Last Admin: 04/03/18 20:55 Dose: 40 meq Potassium Chloride (Klor-Con M20) 40 meq PO ONETIME ONE Stop: 04/04/18 09:01 Last Admin: 04/04/18 09:34 Dose: 40 meq Potassium Chloride (Klor-Con M20) 40 meq PO ONETIME ONE Stop: 04/04/18 17:01 Last Admin: 04/04/18 17:08 Dose: 40 meq Potassium Chloride (Klor-Con M20) 40 meq PO ONETIME ONE Stop: 04/05/18 09:01 Last Admin: 04/05/18 10:14 Dose: 40 meq Potassium Chloride (Klor-Con M20) 40 meq PO ONETIME ONE Stop: 04/05/18 17:01 Last Admin: 04/05/18 18:00 Dose: 40 meq Prednisone (Prednisone) 20 mg PO WITHBREAKFAST [facility] Last Admin: 03/30/18 08:59 Dose: 20 mg Propofol (Diprivan 20 Ml) Confirm Administered Dose 200 mg .ROUTE .STK-MED ONE Stop: 03/18/18 19:48 Propofol (Diprivan 20 Ml) Confirm Administered Dose 200 mg .ROUTE .STK-MED ONE Stop: 04/02/18 12:59 Propofol (Diprivan 20 Ml) Confirm Administered Dose 200 mg .ROUTE .STK-MED ONE Stop: 04/07/18 10:56 Rocuronium [place] (Zemuron) Confirm Administered Dose 50 mg .ROUTE .STK-MED ONE Stop: 03/18/18 19:48 Rocuronium [place] (Zemuron) Confirm Administered Dose 50 mg .ROUTE .STK-MED ONE Stop: 04/07/18 10:56 Succinylcholine Chloride (Quelicin) Confirm Administered Dose 200 mg .ROUTE .STK -MED ONE Stop: 03/18/18 19:48 Vancomycin HCl (Vancomycin) 1 gm IV .PHARMACY TO DOSE CIARRA Stop: 03/21/18 16:00 - Exam Quality Assessment: Supplemental Oxygen General: Alert, Cooperative, No Acute Distress, Lethargic HEENT: Pupils Equal Lungs: Normal Respiratory Effort, Crackles (both bases) Cardiovascular: Regular Rate, Regular Rhythm GI/Abdominal Exam: Soft, Abnormal Bowel Sounds (hypoactive) Extremities: Pedal Edema. No: Increased Warmth Skin: Warm, Dry Psy/Mental Status: Alert. No: Anxious - Problem List Review Problem List Initiated/Reviewed/Updated: Yes - My Orders Last 24 Hours: My Active Orders 04/07/18 10:45 Insert Sorto Catheter [Insert Urinary Catheter] [OM.PC] Q24H 04/08/18 12:00 Furosemide [Lasix] 40 mg IVPUSH ONETIME ONE - Plan Plan:: ASSESSMENT AND PLAN WOUND DEHISCENCE WITH UNDERLYING ABSCESS - status post exploratory laparotomy . Moderately severe pain at this time but otherwise stable. Cultures are pending. -Continue current antibiotics -Follow-up cultures -Surgical follow-up per surgery team SIGMOID COLON PERFORATION RESULTING IN ACUTE ABDOMEN AND SEPTIC SHOCK - postop course complicated by wound dehiscence as above. -Continue TPN initiated today -Nothing by mouth at this time -Post operative surgical care per surgical team -Pain control -Saline lock IV SEPTIC SHOCK - resolved ACUTE HYPOXIC RESPIRATORY FAILURE - respiratory status has remained stable since extubation. He is requiring some supplemental oxygen which I think is related to excess volume. -Coughing, deep breathing and suctioning as able -Furosemide 1 this afternoon COPD - [id number] smoking history but no evidence for exacerbation at this time. -Nebulized albuterol as needed -Vigorous pulmonary toilet during the postoperative period HISTORY OF LUNG AND PROSTATE CARCINOMA - lung cancer felt to be stable, had been receiving treatment for management of prostate carcinoma prior to admission MAINTENANCE ISSUES -DVT prophylaxis; SCUDs -GI prophylaxis; Protonix 40 mg daily -Sorto catheter; removed -Nutrition; nothing by mouth DISPOSITION - anticipate discharge to [facility] after the hospital stay. Stephon Christy M.D.
--- NOTE | 2018-04-08 10:37 | PN ---
DATE OF SERVICE: 04/08/2018 Kodak is postoperative day one. Pain is controlled. Vital signs have been stable. Oral intake 30 mL. His ostomies intact. Three EMEKA drains put out 120, 65, and 25. [place] serosanguineous drainage. Gastrostomy tube to dependent drainage. Sorto bag at 210. REVIEW OF SYSTEMS: Remainder of review of systems negative for any pertinent positives or negatives. LABORATORY DATA: Hemoglobin is 9.4, potassium 4.4. OBJECTIVE: GENERAL: Kodak is a 77-year-old male. VITAL SIGNS: TPR is 96.7, 87, 20, blood pressure is 111/55. HEENT: Negative. NECK: Supple. HEART: Regular rate and rhythm. LUNGS: Clear. ABDOMEN: Dressings dry and intact. The EMEKA drains intact. Ostomy in place. Gastrostomy tube dependent drainage, binder on. EXTREMITIES: Without peripheral edema. He does move extremities, but concern is for foot drop with longevity of hospitalization. ASSESSMENT: 1. Insertion of left subclavian triple lumen. a. Exploratory laparotomy with drainage of intraabdominal abscess. b. Small-bowel resection. c. Small bowel strictureplasty. d. Placement of Vicryl mesh. 2. Closure of fascial dehiscence, for fascial dehiscence with evisceration. Intraabdominal abscess. Focal small bowel stricture. Focal areas, small bowel deserosalization and insertion . Date, 04/07/2018; surgeon is Fredi Linn MD. PLAN: 1. D5LR to TKO; TPN 82 mL per hour will order and contents faxed to Pharmacy. 2. Chain remove incision packing, replace with dry 4 x 4 gauze and ABDs, dressing changes b.i.d. 3. Check CBC, CMP, mag, phos, and BNP in a.m. 4. Good pulmonary toilet. 5. We will evaluate p.r.n. or in a.m. Rula Morley PA-C /[id number]
[2018-04-08] MEDS: 1: AA 5%/Calcium/D15W/Lytes 1,000 ML with MVI, Adult with Vitamin K 10 ML, Chromium/Copp IV SCH ×6 (11:16→23:33)
[2018-04-08] MEDS ORDERED: Furosemide 40 MG/4 ML VIAL IVPUSH ONE (12:00)
[2018-04-09] MEDS: Linezolid 600 MG in Premix Bag 1 BAG IV SCH ×2 (03:02→15:56)
[2018-04-09] MEDS: Pantoprazole 40 MG Vial IV SCH (05:54)
[2018-04-09] MEDS: Magnesium Sulfate/Water 2 GM in Premix Bag 1 BAG IV SCH ×2 (05:54→11:40)
[2018-04-09] MEDS: Meropenem 500 MG in Sodium Chloride 0.9% 50 ML IV SCH ×3 (06:02→21:01)
[2018-04-09] MEDS: Albuterol/Ipratropium 3.0-0.5 MG/3 ML Neb Soln NEB SCH ×4 (06:16→20:39)
[2018-04-09] MEDS ORDERED: Furosemide 40 MG/4 ML VIAL IVPUSH STA ×2 (06:47→10:07)
[2018-04-09] MEDS ORDERED: Morphine PF 150 MG/30 ML PCA Syringe IV PRN (07:15)
--- NOTE | 2018-04-09 07:24 | CRLCR ---
Final Report: Indication: Line placement Technique: Chest 1 view Comparison: March 28, 2018 Findings/Impression: Left subclavian central venous catheter tip terminates at the level of the cavoatrial junction. There is a small left apical pneumothorax without mediastinal shift. There are scattered patchy opacities throughout the lungs, most prominent at the left lung base. Small amount of left pleural fluid. Stable cardiac size. No acute osseous abnormality. These findings were discussed with Dr. Linn at 5:17 p.m. on April 07, 2018. Dictated by Maggie Tillman MD @ Apr 07 2018 5:07PM Signed by: Maggie Tillman MD @04/07/2018 5:17:33 PM (Electronic Signature MTDD
[2018-04-09] MEDS ORDERED: Central Total Parenteral Nutrition Bag SCH (08:00)
--- NOTE | 2018-04-09 09:43 | PN ---
DATE OF SERVICE: 04/09/2018 SUBJECTIVE: Kodak has been quite sleepy. Vital signs have been stable. He has been afebrile. Oral intake zero. TPN is running without difficulty at 82 per hour. Ostomy zero. He has a gastrostomy tube to drainage and zero output. EMEKA drain 1 put out 20 mL. EMEKA drain 3 put out 90, 40, and 15 mL. He is noted to be seen itching. Lasix 40 mg IV verbal order was given at the time of report due to decreased lung sounds and shortness of breath. REVIEW OF SYSTEMS: Remainder of review of systems negative for any pertinent positives and negatives. OBJECTIVE: GENERAL: Kodak Silva is resting comfortably in bed. Color pale. He does move when aroused. He is not talkative at all this morning. VITAL SIGNS: TPR is 97.3, 78, 18, blood pressure 121/62. HEENT: Negative. NECK: Supple. HEART: Regular rate and rhythm. LUNGS: Reveal decreased breath sounds. ABDOMEN: Dressings dry and intact. Gastrostomy tube intact. G tube in place to drainage. Sorto catheter is intact. EXTREMITIES: Without peripheral edema. Extremities are weak. ASSESSMENT: 1. Insertion of left subclavian triple lumen: a. Exploratory laparotomy, drainage of intraabdominal abscess. b. Small bowel resection. c. Small bowel stricture plasty. d. Placement of Vicryl mesh. 2. Closure of fascial dehiscence with evisceration of intraabdominal abscess, focal small bowel stricture, focal areas of small bowel deserosalization, and insertion of subclavian triple lumen catheter. Date of surgery: 04/07/2018. Surgeon: Fredi Linn MD. PLAN: 1. Physical therapy to evaluate and treat for postop weakness and stiffness. Make recommendation to nursing staff regarding how often range of motion and concern of footdrop. Consider Prevalon boots. Check CBC, CMP, mag, phos, and BNP in a.m. Albumin 50 g IV daily for 4 days. 2. Same TPN rate and content. 3. Benadryl 25 mg IV push every 6 hours p.r.n. itching. 4. Lasix 20 mg IV one time after 1 unit of packed red blood cells infused and transfuse 1 unit of packed red blood cells. He is to discontinue D5LR IV solution, discontinue lactated Ringer's IV solution. 5. Normal saline TKO which is compatible with the antibiotic therapy. 6. Communication order written to call Fredi Linn MD, CHRIS. Wound culture and sensitivities are back. 7. Good pulmonary toilet. 8. We will evaluate p.r.n. or in a.m. Rula Morley PA-C /[id number]
[2018-04-09] MEDS ORDERED: Furosemide 40 MG/4 ML VIAL ONE (10:07)
[2018-04-09] MEDS: Dextrose 5%-Lactated Ringers 1,000 ML IV SCH (11:39)
[2018-04-09] MEDS: 1: AA 5%/Calcium/D15W/Lytes 1,000 ML with MVI, Adult with Vitamin K 10 ML, Chromium/Copp IV SCH ×3 (11:42)
[2018-04-09] MEDS ORDERED: Furosemide 20 MG/2 ML VIAL IVPUSH ONE (12:00)
[2018-04-09] MEDS: diphenhydrAMINE 50 MG/ML SDV IVPUSH PRN (12:19)
--- NOTE | 2018-04-09 12:34 | PCM.PN ---
- General Info Date of Service: 04/09/18 Subjective Update: There were no acute events overnight. Patient feels a little better today. He has less abdominal pain and less shortness of breath. He has not had any fevers. 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 No flatus in the colostomy. He is now up to 3 L of supplemental oxygen. Hemoglobin down to 8.1 and 1 unit of blood has been ordered by the surgical team. Functional Status: Reports: Pain Controlled - Review of Systems General: Reports: Weakness. Denies: Fever Pulmonary: Reports: Shortness of Breath Gastrointestinal: Reports: Abdominal Pain - Patient Data Vitals - Most Recent: Last Vital Signs Temp 37.8 C 04/09/18 12:15 Pulse 102 H 04/09/18 12:15 Resp 16 04/09/18 12:15 BP 105/47 L 04/09/18 12:15 Pulse Ox 100 04/09/18 12:15 Weight - Most Recent: 68.719 kg I&O - Last 24 Hours: Intake & Output 04/08/18 04/09/18 04/09/18 22:59 06:59 14:59 Intake Total 2620 3002 100 Output Total 1650 385 445 Balance 970 2617 -345 Lab Results Last 24 Hours: Laboratory Results - last 24 hr 04/09/18 04/09/18 04/09/18 Range/Units 04:00 04:00 09:50 WBC 17.6 H (4.5-11.0) K/uL RBC 2.78 L (4.30-5.90) M/uL Hgb 8.1 L (12.0-15.0) g/dL Hct 27.4 L (40.0-54.0) % MCV 99 H (80-98) fL MCH 29 (27-31) pg MCHC 30 L (32-36) % Plt Count 289 (150-400) K/uL Sodium 139 L (140-148) mmol/L Potassium 4.2 (3.6-5.2) mmol/L Chloride 107 (100-108) mmol/L Carbon Dioxide 29 (21-32) mmol/L Anion Gap 7.2 (5.0-14.0) mmol/L BUN 20 H D (7-18) mg/dL Creatinine 1.2 (0.8-1.3) mg/dL Est Cr Clr Drug Dosing 49.61 mL/min Estimated GFR (MDRD) 59 L (>60) Glucose 126 H (74-106) mg/dL Calcium 6.9 L* (8.5-10.1) mg/dL Phosphorus 3.7 (2.5-4.9) mg/dL Magnesium 4.3 H (1.8-2.4) mg/dL Total Bilirubin 0.2 (0.2-1.0) mg/dL AST 12 L (15-37) U/L ALT 15 (12-78) U/L Alkaline Phosphatase 71 (46-116) U/L NT-Pro-B Natriuret Pep 694 H (5-450) pg/mL Total Protein 4.5 L (6.4-8.2) g/dL Albumin 1.3 L (3.4-5.0) g/dL Globulin 3.2 (2.3-3.5) g/dL Albumin/Globulin Ratio 0.4 L (1.2-2.2) Blood Type O POSITIVE Gel Antibody Screen Negative Crossmatch See Detail Dante Results Last 24 Hours: Microbiology 04/07/18 15:09 Gram Stain - Final Abdomen - Abscess Wound Culture - Preliminary Anaerobic Culture - Preliminary Med Orders - Current: Current Medications Albuterol (Proventil Neb Soln) 2.5 mg NEB Q4H PRN PRN Reason: Dyspnea Last Admin: 04/05/18 18:03 Dose: 2.5 mg Albuterol/Ipratropium (Duoneb 3.0-0.5 Mg/3 Ml) 3 ml NEB QIDRT [facility] Last Admin: 04/09/18 10:51 Dose: 3 ml Dimethicone/Zinc Oxide (Rash Relief-Zinc Oxide [place]) 0 gm TOP ASDIRECTED PRN PRN Reason: Rash Last Admin: 03/28/18 16:55 Dose: 1 spray Diphenhydramine HCl (Benadryl) 25 mg IVPUSH Q6H PRN PRN Reason: Itching Last Admin: 04/09/18 12:19 Dose: 25 mg Furosemide (Lasix) 40 mg IVPUSH ONETIME ONE Stop: 04/09/18 16:01 Heparin Sodium (Porcine) (Heparin Lock Flush 100 Units/Ml) 500 units FLUSH ASDIRECTED PRN PRN Reason: IV Use Last Admin: 03/28/18 14:38 Dose: 500 units Linezolid 600 mg/ Premix 300 mls @ 300 mls/hr IV Q12H [facility] Last Admin: 04/09/18 03:02 Dose: 300 mls/hr Meropenem 500 mg/ Sodium (Chloride) 50 mls @ 100 mls/hr IV Q8H [facility] Last Admin: 04/09/18 06:02 Dose: 100 mls/hr Magnesium Sulfate 2 gm/ Premix 50 mls @ 25 mls/hr IV Q6H [facility] Stop: 04/09/18 13:59 Last Admin: 04/09/18 11:40 Dose: 25 mls/hr Multivitamins/Minerals 10 ml/Chromium/Copper/Manganese/Seleni/Zn 1 ml/ Amino Ac/ Electrol/Dextrose/Calcium 1,011 mls @ 82 mls/hr IV .BY DURATION [facility] Last Admin: 04/09/18 11:42 Dose: 82 mls/hr Amino Ac/Electrol/Dextrose/Calcium (Clinimix E 5/15) 1,000 mls @ 82 mls/hr IV .BY DURATION [facility] Last Admin: 04/08/18 23:33 Dose: 82 mls/hr Albumin Human (Albumin 25%) 25 gm in 100 mls @ 25 mls/hr IV Q24H [facility] Stop: 04/12/18 13:59 Last Admin: 04/09/18 10:19 Dose: 25 mls/hr Albumin Human (Albumin 25%) 25 gm in 100 mls @ 25 mls/hr IV Q24H [facility] Stop: 04/12/18 17:59 Dextrose/Lactated Ringer's (Dextrose 5%-Lactated Ringers) 1,000 mls @ 25 mls/ hr IV ASDIRECTED [facility] Morphine Sulfate (Morphine Director [employer] 150 Mg In 30 Ml) 0 mg IV ASDIRECTED PRN; Protocol PRN Reason: Pain Naloxone HCl (Narcan) 0.1 mg IV ASDIRECTED PRN PRN Reason: decreased respiratory rate Pantoprazole Sodium (Protonix Iv) 40 mg IV Q24H [facility] Last Admin: 04/09/18 05:54 Dose: 40 mg Discontinued Medications Acetaminophen (Tylenol) 650 mg RECTAL Q4H PRN PRN Reason: Fever Acetaminophen (Tylenol) 650 mg PO Q4H PRN PRN Reason: Pain/Fever Last Admin: 04/05/18 20:14 Dose: 650 mg Albuterol/Ipratropium (Duoneb 3.0-0.5 Mg/3 Ml) 3 ml NEB Q4H PRN PRN Reason: Dyspnea Albuterol/Ipratropium (Duoneb 3.0-0.5 Mg/3 Ml) 3 ml NEB ONETIME ONE Stop: 04/07/18 10:31 Last Admin: 04/07/18 10:26 Dose: Not Given Bupivacaine HCl (Marcaine 0.5%) Confirm Administered Dose 50 ml .ROUTE .STK-MED ONE Stop: 04/07/18 12:06 Ropivacaine 34 ml/Dexamethasone 8 mg/Epinephrine HCl 0.4 mg/ Sodium Chloride 43.6 ml 0 ml NERVRT ASDIRECTED [facility] Last Admin: 04/07/18 16:01 Dose: 80 syringe Dexamethasone (Dexamethasone) Confirm Administered Dose 4 mg .ROUTE .STK-MED ONE Stop: 03/18/18 19:48 Dexamethasone (Dexamethasone) Confirm Administered Dose 4 mg .ROUTE .STK-MED ONE Stop: 04/07/18 10:56 Epinephrine HCl (Adrenalin) Confirm Administered Dose 1 mg .ROUTE .STK-MED ONE Stop: 03/18/18 21:07 Erythromycin Ethylsuccinate (Eryped 400) 125 mg PO Q6H [facility] Last Admin: 04/07/18 15:14 Dose: Not Given Fentanyl (Sublimaze) Confirm Administered Dose 250 mcg .ROUTE .STK-MED ONE Stop: 03/18/18 19:48 Fentanyl (Sublimaze) Confirm Administered Dose 250 mcg .ROUTE .STK-MED ONE Stop: 04/02/18 12:59 Fentanyl (Sublimaze) Confirm Administered Dose 250 mcg .ROUTE .STK-MED ONE Stop: 04/07/18 10:56 Furosemide (Lasix) 20 mg IVPUSH ONETIME ONE Stop: 03/23/18 09:46 Last Admin: 03/23/18 10:18 Dose: 20 mg Furosemide (Lasix) 20 mg IVPUSH NOW ONE Stop: 03/25/18 10:01 Last Admin: 03/25/18 10:17 Dose: 20 mg Furosemide (Lasix) 20 mg IVPUSH ONETIME ONE Stop: 03/26/18 09:16 Last Admin: 03/26/18 09:10 Dose: 20 mg Furosemide (Lasix) 20 mg IVPUSH ONETIME ONE Stop: 03/26/18 16:01 Last Admin: 03/26/18 18:28 Dose: Not Given Furosemide (Lasix) 20 mg IVPUSH NOW ONE Stop: 03/27/18 10:01 Last Admin: 03/27/18 10:26 Dose: 20 mg Furosemide (Lasix) 20 mg IVPUSH ONETIME ONE Stop: 03/30/18 13:11 Last Admin: 03/30/18 13:36 Dose: 20 mg Furosemide (Lasix) 20 mg IVPUSH NOW ONE Stop: 03/31/18 11:55 Last Admin: 03/31/18 13:04 Dose: 20 mg Furosemide (Lasix) 20 mg IVPUSH NOW ONE Stop: 04/01/18 12:05 Last Admin: 04/01/18 12:43 Dose: 20 mg Furosemide (Lasix) 20 mg IVPUSH NOW ONE Stop: 04/02/18 15:46 Last Admin: 04/02/18 15:53 Dose: 20 mg Furosemide (Lasix) 40 mg IVPUSH NOW ONE Stop: 04/03/18 09:01 Last Admin: 04/03/18 09:45 Dose: 40 mg Furosemide (Lasix) 40 mg IVPUSH NOW ONE Stop: 04/04/18 15:31 Last Admin: 04/04/18 15:55 Dose: 40 mg Furosemide (Lasix) 40 mg IVPUSH NOW ONE Stop: 04/05/18 09:01 Last Admin: 04/05/18 10:15 Dose: 40 mg Furosemide (Lasix) 40 mg IVPUSH ONETIME ONE Stop: 04/08/18 12:01 Last Admin: 04/08/18 11:01 Dose: 40 mg Furosemide (Lasix) 40 mg IVPUSH ONETIME STA Stop: 04/09/18 06:48 Last Admin: 04/09/18 10:16 Dose: Not Given Furosemide (Lasix) 20 mg IVPUSH ONETIME ONE Stop: 04/09/18 12:01 Furosemide (Lasix) 40 mg IVPUSH ONETIME STA Stop: 04/09/18 10:08 Last Admin: 04/09/18 10:09 Dose: 40 mg Furosemide (Lasix) Confirm Administered Dose 40 mg .ROUTE .STK-MED ONE Stop: 04/09/18 10:08 Last Admin: 04/09/18 10:16 Dose: 40 mg Glycopyrrolate (Robinul) Confirm Administered Dose 1 mg .ROUTE .STK-MED ONE Stop: 03/18/18 19:48 Glycopyrrolate (Robinul) Confirm Administered Dose 1 mg .ROUTE .STK-MED ONE Stop: 04/07/18 10:56 Heparin Sodium (Porcine) (Heparin Sodium) Confirm Administered Dose 5,000 units .ROUTE .STK-MED ONE Stop: 03/18/18 19:51 Heparin Sodium (Porcine) (Heparin Lock Flush 100 Units/Ml) Confirm Administered Dose 500 units .ROUTE .STK-MED ONE Stop: 03/22/18 12:17 Last Admin: 03/22/18 12:30 Dose: Not Given Heparin Sodium (Porcine) (Heparin Sodium) Confirm Administered Dose 5,000 units .ROUTE .STK-MED ONE Stop: 03/24/18 19:52 Last Admin: 03/24/18 20:33 Dose: 5,000 units Heparin Sodium (Porcine) (Heparin Lock Flush 100 Units/Ml) Confirm Administered Dose 1,000 units .ROUTE .STK-MED ONE Stop: 04/07/18 12:06 Last Admin: 04/07/18 14:30 Dose: 500 units Hydrocortisone Sodium Succinate (Solu-Cortef) 100 mg IVPUSH Q12H [facility] Last Admin: 03/28/18 20:15 Dose: 100 mg Hydrocortisone Sodium Succinate (Solu-Cortef) 100 mg IVPUSH DAILY [facility] Last Admin: 03/30/18 13:39 Dose: Not Given Hydromorphone HCl (Dilaudid) 0.5 mg IVPUSH ONETIME ONE Stop: 03/18/18 17:43 Last Admin: 03/18/18 17:47 Dose: 0.5 mg Hydromorphone HCl (Dilaudid) 1 mg IVPUSH ONETIME ONE Stop: 03/18/18 18:18 Last Admin: 03/18/18 18:27 Dose: 1 mg Sodium Chloride (Normal Saline) 1,000 mls @ 1,000 mls/hr IV ASDIRECTED [facility] Last Admin: 03/18/18 17:47 Dose: 1,000 mls/hr Sodium Chloride (Normal Saline) 1,000 mls @ 999 mls/hr IV ASDIRECTED [facility] Last Admin: 03/18/18 19:31 Dose: 999 mls/hr Meropenem 500 mg/ Sodium (Chloride) 50 mls @ 100 mls/hr IV ONETIME ONE Stop: 03/18/18 19:09 Last Admin: 03/18/18 19:01 Dose: 100 mls/hr Sodium Chloride (Normal Saline) Confirm Administered Dose 50 mls @ as directed .ROUTE .[facility]-MED ONE Stop: 03/18/18 19:40 Last Admin: 03/18/18 20:19 Dose: Not Given Aztreonam 2 gm/ Sodium (Chloride) 50 mls @ 100 mls/hr IV ONETIME ONE Stop: 03/18/18 20:01 Last Admin: 03/18/18 20:44 Dose: 100 mls/hr Meropenem 500 mg/ Sodium (Chloride) 50 mls @ 100 mls/hr IV ONETIME ONE Stop: 03/18/18 20:00 Last Admin: 03/18/18 19:40 Dose: 100 mls/hr Sodium Chloride (Normal Saline) Confirm Administered Dose 250 mls @ as directed .ROUTE .ST-MED ONE Stop: 03/18/18 19:59 Lactated Ringer's (Ringers, Lactated) Confirm Administered Dose 1,000 mls @ as directed .ROUTE .ST-MED ONE Stop: 03/18/18 19:59 Sodium Chloride (Normal Saline) Confirm Administered Dose 500 mls @ as directed .ROUTE .[facility]-MED ONE Stop: 03/18/18 19:59 Norepinephrine Bitartrate 8 mg (/ Dextrose/Water) 258 mls @ 3.87 mls/hr IV TITRATE [facility]; Protocol Last Admin: 03/19/18 11:45 Dose: 12 mcg/min, 23.22 mls/hr Lactated Ringer's (Ringers, Lactated) Confirm Administered Dose 1,000 mls @ as directed .ROUTE .ST-MED ONE Stop: 03/18/18 21:42 Propofol (Diprivan 100 Ml) 100 mls @ 2.082 mls/hr IV TITRATE [facility]; Protocol Last Titration: 03/27/18 06:35 Dose: 10 mcg/kg/min, 4.164 mls/hr Aztreonam 1 gm/ Sodium (Chloride) 50 mls @ 100 mls/hr IV Q8H [facility] Last Admin: 03/19/18 05:29 Dose: 100 mls/hr Potassium Chloride/Dextrose/Sod Cl (D5 1/2 Ns W/ 20 Meq/L Kcl) 1,000 mls @ 150 mls/hr IV ASDIRECTED [facility] Last Admin: 03/18/18 23:11 Dose: 150 mls/hr Meropenem 1 gm/ Sodium (Chloride) 50 mls @ 100 mls/hr IV Q12H [facility] Stop: 03/29/18 22:00 Last Admin: 03/29/18 20:10 Dose: 100 mls/hr Lactated Ringer's (Ringers, Lactated) 1,000 mls @ 500 mls/hr IV ASDIRECTED [facility] Last Admin: 03/19/18 01:23 Dose: 500 mls/hr Vasopressin 100 units/ (Dextrose/Water) 255 mls @ 1.53 mls/hr IV TITRATE [facility]; Protocol Stop: 03/21/18 13:00 Last Titration: 03/21/18 11:03 Dose: 0.02 units/min, 3.06 mls/hr Lactated Ringer's (Ringers, Lactated) 1,000 mls @ 500 mls/hr IV BOLUS [facility] Stop: 03/19/18 05:29 Last Admin: 03/19/18 04:02 Dose: 500 mls/hr Aztreonam/Dextrose 1 gm/ (Premix) 50 mls @ 100 mls/hr IV Q8H [facility] Last Admin: 03/28/18 05:26 Dose: 100 mls/hr Lactated Ringer's (Ringers, Lactated) 1,000 mls @ 500 mls/hr IV .BOLUS ONE Stop: 03/19/18 14:59 Last Admin: 03/19/18 14:27 Dose: 500 mls/hr Lactated Ringer's (Ringers, Lactated) 1,000 mls @ 150 mls/hr IV ASDIRECTED [facility] Last Admin: 03/21/18 11:53 Dose: 150 mls/hr Norepinephrine Bitartrate 8 mg (/ Dextrose/Water) 250 mls @ 3.75 mls/hr IV TITRATE [facility]; Protocol Last Titration: 03/27/18 09:04 Dose: 4 mcg/min, 7.5 mls/hr Magnesium Sulfate 2 gm/ Premix 50 mls @ 25 mls/hr IV Q6H [facility] Stop: 03/20/18 17:59 Last Admin: 03/20/18 16:30 Dose: 25 mls/hr Vancomycin HCl 1.25 gm/ Sodium (Chloride) 250 mls @ 170 mls/hr IV Q24H [facility] Last Admin: 03/22/18 10:06 Dose: 170 mls/hr Vasopressin 40 units/ Dextrose (/Water) 100 mls @ 3 mls/hr IV TITRATE [facility]; Protocol Last Titration: 03/23/18 01:00 Dose: 0 units/min, 0 mls/hr Potassium Chloride 20 meq/ (Premix) 100 mls @ 50 mls/hr IV Q2H [facility] Stop: 03/21/18 22:59 Last Admin: 03/21/18 22:20 Dose: 50 mls/hr Potassium Chloride 20 meq/ (Premix) 100 mls @ 50 mls/hr IV Q2H [facility] Stop: 03/22/18 12:59 Last Admin: 03/22/18 11:30 Dose: 50 mls/hr Potassium Chloride 20 meq/ (Premix) 100 mls @ 50 mls/hr IV Q2H [facility] Stop: 03/22/18 17:29 Last Admin: 03/22/18 16:13 Dose: 50 mls/hr Potassium Chloride (Kcl 20 Meq In Water 100 Ml) 100 mls @ 50 mls/hr IV Q2H [facility] Stop: 03/23/18 01:59 Last Admin: 03/23/18 00:53 Dose: 50 mls/hr Potassium Chloride 40 meq/ (Premix) 100 mls @ 25 mls/hr IV ONETIME ONE Stop: 03/23/18 14:29 Last Admin: 03/23/18 10:31 Dose: 25 mls/hr Vancomycin HCl 1.4 gm/ Sodium (Chloride) 250 mls @ 170 mls/hr IV Q24H [facility] Last Admin: 03/24/18 11:13 Dose: 170 mls/hr Multivitamins/Minerals 10 ml/Chromium/Copper/Manganese/Seleni/Zn 1 ml/ Amino Ac/ Electrol/Dextrose/Calcium 1,011 mls @ 75 mls/hr IV .BY DURATION [facility] Last Admin: 03/25/18 22:34 Dose: 75 mls/hr Amino Ac/Electrol/Dextrose/Calcium (Clinimix E 5/15) 1,000 mls @ 75 mls/hr IV .BY DURATION [facility] Last Admin: 03/25/18 08:11 Dose: 75 mls/hr Vasopressin 100 units/ (Dextrose/Water) 255 mls @ 1.53 mls/hr IV TITRATE [facility]; Protocol Last Titration: 03/25/18 11:51 Dose: 0 units/min, 0 mls/hr Potassium Chloride 20 meq/ (Premix) 100 mls @ 50 mls/hr IV Q2H [facility] Stop: 03/24/18 13:59 Last Admin: 03/24/18 12:13 Dose: 50 mls/hr Multivitamins/Minerals 10 ml/Chromium/Copper/Manganese/Seleni/Zn 1 ml/ Amino Ac/ Electrol/Dextrose/Calcium 1,011 mls @ 75 mls/hr IV .BY DURATION [facility] Last Admin: 03/29/18 06:48 Dose: 75 mls/hr Amino Ac/Electrol/Dextrose/Calcium (Clinimix E 5/15) 1,000 mls @ 75 mls/hr IV .BY DURATION [facility] Last Admin: 03/29/18 20:12 Dose: 75 mls/hr Heparin Sodium (Porcine) 5,000 (units/ Sodium Chloride) 501 mls @ 5 mls/hr IV ASDIRECTED [facility] Last Admin: 03/27/18 12:50 Dose: 5 mls/hr Sodium Chloride (Normal Saline) 1,000 mls @ 50 mls/hr IV ASDIRECTED [facility] Last Admin: 03/30/18 13:36 Dose: 50 mls/hr Dextrose/Sodium Chloride (Dextrose 5%-1/2 Ns) 1,000 mls @ 75 mls/hr IV ASDIRECTED [facility] Last Admin: 03/31/18 23:53 Dose: 75 mls/hr Albumin Human (Albumin 25%) 25 gm in 100 mls @ 25 mls/hr IV Q24H [facility] Stop: 04/02/18 12:59 Last Admin: 04/01/18 08:13 Dose: 25 mls/hr Potassium Phosphate 20 mmole/ (Sodium Chloride) 256.6667 mls @ 85 mls/hr IV Q3H [facility] Stop: 04/01/18 18:59 Last Admin: 04/01/18 18:37 Dose: 85 mls/hr Dextrose/Sodium Chloride (Dextrose 5%-1/2 Ns) 1,000 mls @ 80 mls/hr IV ASDIRECTED [facility] Last Admin: 04/03/18 06:40 Dose: 80 mls/hr Cefazolin Sodium/Dextrose 2 gm (/ Premix) 50 mls @ 100 mls/hr IV ONCALL ONE Stop: 04/02/18 11:59 Last Admin: 04/02/18 13:59 Dose: 100 mls/hr Potassium Acetate 20 meq/ (Sodium Chloride) 110 mls @ 55 mls/hr IV Q2H [facility] Stop: 04/02/18 11:59 Last Admin: 04/02/18 10:10 Dose: 55 mls/hr Magnesium Sulfate 2 gm/ Premix 50 mls @ 25 mls/hr IV Q6H [facility] Stop: 04/05/18 07:59 Last Admin: 04/03/18 12:11 Dose: 25 mls/hr Albumin Human (Albumin 25%) 25 gm in 100 mls @ 25 mls/hr IV ONETIME ONE Stop: 04/02/18 17:59 Last Admin: 04/02/18 15:30 Dose: 25 mls/hr Potassium Chloride 20 meq/Lidocaine HCl 2 ml/ Sodium Chloride 112 mls @ 56 mls/ hr IV Q2H [facility] Stop: 04/03/18 17:59 Last Admin: 04/03/18 17:04 Dose: 56 mls/hr Magnesium Sulfate 2 gm/ Premix 50 mls @ 25 mls/hr IV Q6H [facility] Stop: 04/08/18 03:59 Last Admin: 04/07/18 15:14 Dose: Not Given Potassium Phosphate 15 mmole/ (Sodium Chloride) 255 mls @ 128 mls/hr IV Q2H [facility] Stop: 04/06/18 13:59 Last Admin: 04/06/18 12:49 Dose: 128 mls/hr Dextrose/Lactated Ringer's (Dextrose 5%-Lactated Ringers) 1,000 mls @ 100 mls/ hr IV ASDIRECTED [facility] Last Admin: 04/07/18 08:44 Dose: 100 mls/hr Meropenem 500 mg/ Sodium (Chloride) 50 mls @ 100 mls/hr IV ONCALL ONE Stop: 04/07/18 11:59 Last Admin: 04/07/18 15:13 Dose: Not Given Linezolid (Zyvox) Confirm Administered Dose 300 mls @ as directed .ROUTE .STK- MED ONE Stop: 04/07/18 15:26 Lactated Ringer's (Ringers, Lactated) Confirm Administered Dose 1,000 mls @ as directed .ROUTE .STK-MED ONE Stop: 04/07/18 15:35 Linezolid 600 mg/ Premix 300 mls @ 300 mls/hr IV ONETIME ONE Stop: 04/07/18 17:29 Last Admin: 04/07/18 16:25 Dose: 300 mls/hr Dextrose/Lactated Ringer's (Dextrose 5%-Lactated Ringers) 1,000 mls @ 175 mls/ hr IV ASDIRECTED [facility] Last Admin: 04/08/18 06:21 Dose: 175 mls/hr Dextrose/Lactated Ringer's (Dextrose 5%-Lactated Ringers) 1,000 mls @ 100 drops /hr IV ASDIRECTED [facility] Last Admin: 04/09/18 11:39 Dose: 100 drops/hr Insulin Human Lispro (Humalog) 0 unit SUBCUT Q6H [facility]; Protocol Last Admin: 03/30/18 16:32 Dose: Not Given Insulin Human Lispro (Humalog) 0 unit SUBCUT Q6H [facility]; Protocol Last Admin: 03/31/18 03:52 Dose: Not Given Insulin Human Lispro (Humalog) 0 unit SUBCUT QIDACANDBED [facility]; Protocol Stop: 04/12/18 11:01 Last Admin: 03/31/18 13:17 Dose: Not Given Lidocaine/Epinephrine (Xylocaine 1% With Epinephrine 1:100,000) Confirm Administered Dose 50 ml .ROUTE .STK-MED ONE Stop: 04/07/18 12:06 Linezolid (Zyvox) 600 mg IRR .STK-MED ONE Stop: 04/07/18 16:06 Last Admin: 04/07/18 16:05 Dose: 600 mg Loperamide HCl (Imodium) 2 mg PO ASDIRECTED PRN PRN Reason: DIARRHEA Melatonin (Melatonin) 9 mg PO BEDTIME [facility] Last Admin: 04/06/18 21:40 Dose: 9 mg Meropenem (Merrem) Confirm Administered Dose 500 mg .ROUTE .STK-MED ONE Stop: 03/18/18 19:40 Last Admin: 03/18/18 20:19 Dose: Not Given Meropenem (Merrem) Confirm Administered Dose 500 mg .ROUTE .STK-MED ONE Stop: 04/07/18 14:38 Last Admin: 04/07/18 16:00 Dose: 500 mg Meropenem (Merrem) Confirm Administered Dose 500 mg .ROUTE .STK-MED ONE Stop: 04/07/18 15:08 Last Admin: 04/07/18 16:05 Dose: 500 mg Midazolam HCl (Versed 1 Mg/Ml) Confirm Administered Dose 2 mg .ROUTE .STK-MED ONE Stop: 04/02/18 12:59 Morphine Sulfate (Morphine) 4 mg IVPUSH Q2H PRN PRN Reason: Pain Last Admin: 03/29/18 07:34 Dose: 4 mg Morphine Sulfate (Morphine Director [employer] 150 Mg In 30 Ml) 0 mg IV ASDIRECTED PRN; Protocol PRN Reason: Pain Last Admin: 04/07/18 10:00 Dose: 150 mg Neostigmine Methylsulfate (Neostigmine) Confirm Administered Dose 5 mg .ROUTE .STK-MED ONE Stop: 03/18/18 19:48 Neostigmine Methylsulfate (Neostigmine) Confirm Administered Dose 5 mg .ROUTE .STK-MED ONE Stop: 04/07/18 10:56 Non-Formulary Medication (Total Parenteral Nutrition, Central) 1,000 ml .XX .Continue Order [facility]; Protocol Stop: 03/24/18 11:31 Non-Formulary Medication (Total Parenteral Nutrition, Central) 1,000 ml .XX .Continue Order [facility]; Protocol Non-Formulary Medication (Total Parenteral Nutrition, Central) 1,000 ml .XX .Continue Order [facility]; Protocol Non-Formulary Medication (Total Parenteral Nutrition, Central) 1,000 ml .XX .Continue Order [facility]; Protocol Stop: 03/28/18 12:00 Non-Formulary Medication (Total Parenteral Nutrition, Central) 1,000 ml .XX .Continue Order [facility] Stop: 04/08/18 08:01 Non-Formulary Medication (Total Parenteral Nutrition, Central) 1,000 ml .XX .Continue Order [facility] Stop: 04/09/18 10:00 Nystatin (Mycostatin) 5 ml PO QID [facility] Last Admin: 04/04/18 15:25 Dose: 5 ml Ondansetron HCl (Zofran) 4 mg IVPUSH ONETIME ONE Stop: 03/18/18 18:18 Last Admin: 03/18/18 18:27 Dose: 4 mg Ondansetron HCl (Zofran) Confirm Administered Dose 4 mg .ROUTE .STK-MED ONE Stop: 03/18/18 19:48 Ondansetron HCl (Zofran) Confirm Administered Dose 4 mg .ROUTE .STK-MED ONE Stop: 04/07/18 10:56 Oxycodone HCl (Oxycodone) 5 mg PO Q4H PRN PRN Reason: Pain (moderate 4-6) Last Admin: 04/06/18 05:19 Dose: 5 mg Pantoprazole Sodium (Protonix Iv) 40 mg IVPUSH DAILY CIARRA Last Admin: 03/28/18 08:34 Dose: 40 mg Pantoprazole Sodium (Protonix) 40 mg PO ACBREAKFAST CIARRA Last Admin: 04/07/18 08:10 Dose: 40 mg Phenylephrine HCl (Isaías-Synephrine) Confirm Administered Dose 10 mg .ROUTE .STK- MED ONE Stop: 03/18/18 20:05 Potassium Chloride (Klor-Con M20) 40 meq PO ONETIME ONE Stop: 04/03/18 13:16 Last Admin: 04/03/18 14:33 Dose: 40 meq Potassium Chloride (Klor-Con M20) 40 meq PO ONETIME ONE Stop: 04/03/18 17:01 Last Admin: 04/03/18 20:55 Dose: 40 meq Potassium Chloride (Klor-Con M20) 40 meq PO ONETIME ONE Stop: 04/04/18 09:01 Last Admin: 04/04/18 09:34 Dose: 40 meq Potassium Chloride (Klor-Con M20) 40 meq PO ONETIME ONE Stop: 04/04/18 17:01 Last Admin: 04/04/18 17:08 Dose: 40 meq Potassium Chloride (Klor-Con M20) 40 meq PO ONETIME ONE Stop: 04/05/18 09:01 Last Admin: 04/05/18 10:14 Dose: 40 meq Potassium Chloride (Klor-Con M20) 40 meq PO ONETIME ONE Stop: 04/05/18 17:01 Last Admin: 04/05/18 18:00 Dose: 40 meq Prednisone (Prednisone) 20 mg PO WITHBREAKFAST CIARRA Last Admin: 03/30/18 08:59 Dose: 20 mg Propofol (Diprivan 20 Ml) Confirm Administered Dose 200 mg .ROUTE .STK-MED ONE Stop: 03/18/18 19:48 Propofol (Diprivan 20 Ml) Confirm Administered Dose 200 mg .ROUTE .STK-MED ONE Stop: 04/02/18 12:59 Propofol (Diprivan 20 Ml) Confirm Administered Dose 200 mg .ROUTE .STK-MED ONE Stop: 04/07/18 10:56 Rocuronium Gr[place] (Zemuron) Confirm Administered Dose 50 mg .ROUTE .STK-MED ONE Stop: 03/18/18 19:48 Rocuronium [place] (Zemuron) Confirm Administered Dose 50 mg .ROUTE .STK-MED ONE Stop: 04/07/18 10:56 Succinylcholine Chloride (Quelicin) Confirm Administered Dose 200 mg .ROUTE .STK -MED ONE Stop: 03/18/18 19:48 Vancomycin HCl (Vancomycin) 1 gm IV .PHARMACY TO DOSE [facility] Stop: 03/21/18 16:00 - Exam Quality Assessment: Supplemental Oxygen General: Alert, Oriented, Cooperative, No Acute Distress HEENT: No: Mucous Membr. Moist/[place] (dry), Scleral Icterus Lungs: Clear to Auscultation, Normal Respiratory Effort, Decreased Breath Sounds (mild right lung base) Cardiovascular: Regular Rate, Regular Rhythm GI/Abdominal Exam: Soft, No Distention, Abnormal Bowel Sounds (none) Extremities: Pedal Edema Skin: Warm, Dry Psy/Mental Status: Alert, Normal Affect - Problem List Review Problem List Initiated/Reviewed/Updated: Yes - My Orders Last 24 Hours: My Active Orders 04/09/18 10:45 Insert Sorto Catheter [Insert Urinary Catheter] [OM.PC] Q24H 04/09/18 12:45 Dextrose 5%-Lactated Ringers 1,000 ml IV ASDIRECTED 04/09/18 16:00 Furosemide [Lasix] 40 mg IVPUSH ONETIME ONE - Plan Plan:: ASSESSMENT AND PLAN WOUND DEHISCENCE WITH UNDERLYING ABSCESS - status post exploratory laparotomy . Pain is better controlled today. Tolerating antibiotics. Cultures are pending. -Continue current antibiotics -Follow-up cultures -Surgical follow-up per surgery team SIGMOID COLON PERFORATION RESULTING IN ACUTE ABDOMEN AND SEPTIC SHOCK - postop course complicated by wound dehiscence as above. He is receiving nutritional support via TPN. -Continue TPN initiated today -Nothing by mouth at this time -Post operative surgical care per surgical team -Pain control -Saline lock IV SEPTIC SHOCK - resolved ACUTE HYPOXIC RESPIRATORY FAILURE - respiratory status seems to be slowly declining again and I suspect is related to excess fluid. He has been positive for the last several days. He is receiving a unit of blood today as well. -Coughing, deep breathing and suctioning as able -Furosemide 40 mg 2 today and reassess in the morning COPD - 25-[id number]-[id number] smoking history but no evidence for exacerbation at this time. -Nebulized albuterol as needed -Vigorous pulmonary toilet during the postoperative period HISTORY OF LUNG AND PROSTATE CARCINOMA - lung cancer felt to be stable, had been receiving treatment for management of prostate carcinoma prior to admission MAINTENANCE ISSUES -DVT prophylaxis; SCUDs -GI prophylaxis; Protonix 40 mg daily -Sorto catheter; placed at the time of surgery for strict intake and output monitoring -Nutrition; nothing by mouth DISPOSITION - anticipate discharge to shelter after the hospital stay. Stephon Christy M.D.
[2018-04-09] MEDS ORDERED: Dextrose 5%-Lactated Ringers 1,000 ML IV SCH (12:45)
[2018-04-09] MEDS ORDERED: Furosemide 40 MG/4 ML VIAL IVPUSH ONE (16:00)
[2018-04-09] MEDS ORDERED: Sodium Chloride 0.9% 1,000 ML IV SCH (16:30)
[2018-04-10] MEDS: 1: AA 5%/Calcium/D15W/Lytes 1,000 ML with MVI, Adult with Vitamin K 10 ML, Chromium/Copp IV SCH ×6 (00:26→12:55)
[2018-04-10] MEDS: Linezolid 600 MG in Premix Bag 1 BAG IV SCH (03:46)
[2018-04-10] MEDS: Meropenem 500 MG in Sodium Chloride 0.9% 50 ML IV SCH ×3 (05:09→21:10)
[2018-04-10] MEDS: Pantoprazole 40 MG Vial IV SCH (07:22)
[2018-04-10] MEDS: Albuterol/Ipratropium 3.0-0.5 MG/3 ML Neb Soln NEB SCH ×4 (07:31→21:10)
[2018-04-10] MEDS ORDERED: Central Total Parenteral Nutrition Bag SCH (08:00)
[2018-04-10] MEDS: hydrOXYzine HCl 100 MG/2 ML SDV IM PRN ×2 (09:27→16:21)
--- NOTE | 2018-04-10 09:48 | PN ---
DATE OF SERVICE: 04/10/2018 SUBJECTIVE: Kodak is improving according to nursing staff. Temperature max at 0300 hours was 99.5. He does have pain with touching his feet. He denies this morning of having any gout. Oral intake 0 is recorded. 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 Gastrostomy tube has been to dependent drainage. There has been no drainage. He has 3 EMEKA drains, which have drained out 100, 20, and 10 mL respectively of a light pink serosanguineous drainage. REVIEW OF SYSTEMS: Remainder of review of systems negative for any pertinent positives and negatives. OBJECTIVE: GENERAL: Kodak is a 77-year-old male. He does look better today. Color remains pale. VITAL SIGNS: TPR from 0300 hours; 99.5, 90, 18, blood pressure 103/50. HEENT: Negative. NECK: Supple. HEART: Regular rate and rhythm. LUNGS: Clear. ABDOMEN: Wound VAC intact. Colostomy in place. EMEKA drains x3 intact. EXTREMITIES: Reveal trace peripheral edema. LABORATORY DATA: Hemoglobin was 8. He did receive 1 unit of packed red blood cells yesterday. ASSESSMENT: 1. Insertion of left subclavian triple lumen. a. Exploratory laparotomy, drainage of intraabdominal abscess. b. Small-bowel resection. c. Small bowel strictureplasty. d. Placement of Vicryl mesh. 2. Closure of fascial dehiscence with evisceration of intraabdominal abscess with focal small-bowel stricture. Focal areas of small bowel deserosalization. Insertion of subclavian triple-lumen catheter. Date of surgery 04/07/2018. Surgeon, Fredi Linn MD. PLAN: 1. Physical therapy to order the Prevalon boots. 2. Continue same TPN rate and content. 3. Check CBC, CMP, mag, phos, and BNP in a.m. 4. Lasix 40 mg IV push after 1 unit of packed red blood cells is given. 5. Transfuse 1 unit of packed red blood cells. 6. Vistaril 100 mg IM q.6 hours p.r.n. pain that is not covered with the [employer]ACING [employer]. 7. K-Phos 45 millimoles IV in minimal IV fluids. 8. Gastrostomy tube management; clamp 6 hours, unclamp 1 hour around the clock. 9. Lasix 20 mg IV at 8:00 p.m. 10.Good pulmonary toilet. 11.We will evaluate p.r.n. or in a.m. Rula Morley PA-C /[id number]
[2018-04-10] MEDS: Potassium Phosphates 22.5 MMOLE in Sodium Chloride 0.9% 250 ML IV SCH ×2 (10:17→14:47)
[2018-04-10] MEDS: Calcium Gluconate 1 GM in Sodium Chloride 0.9% 100 ML IV SCH ×2 (11:07→16:21)
[2018-04-10] MEDS ORDERED: Furosemide 40 MG/4 ML VIAL IVPUSH ONE (12:00)
--- NOTE | 2018-04-10 14:12 | PCM.PN ---
- General Info Date of Service: 04/10/18 Subjective Update: Mr. Silva has remained fairly stable since yesterday, no significant temperature elevation yet today. White blood cell count is improved from yesterday. Blood and peritoneal fluid cultures growing Escherichia coli sensitive to current meropenem. He remains fairly lethargic with minimal oral intake. - Review of Systems General: Reports: Weakness. Denies: Fever, Chills Pulmonary: Reports: No Symptoms Cardiovascular: Reports: No Symptoms Gastrointestinal: Reports: Abdominal Pain. Denies: Diarrhea, Difficulty Swallowing, Nausea, Vomiting - Patient Data Vitals - Most Recent: Last Vital Signs Temp 98.5 F 04/10/18 13:50 Pulse 84 04/10/18 13:50 Resp 16 04/10/18 13:50 BP 131/45 L 04/10/18 13:50 Pulse Ox 93 L 04/10/18 13:50 Weight - Most Recent: 153 lb 0.013 oz I&O - Last 24 Hours: Intake & Output 04/09/18 04/10/18 04/10/18 22:59 06:59 14:59 Intake Total 1542 1501 89 Output Total 1900 1960 1800 Balance -305 -127 -6980 Lab Results Last 24 Hours: Laboratory Results - last 24 hr 04/09/18 04/10/18 04/10/18 Range/Units 09:50 04:33 04:33 WBC 13.9 H (4.5-11.0) K/uL RBC 2.81 L (4.30-5.90) M/uL Hgb 8.0 L (12.0-15.0) g/dL Hct 26.7 L (40.0-54.0) % MCV 95 (80-98) fL MCH 29 (27-31) pg MCHC 30 L (32-36) % Plt Count 235 (150-400) K/uL Sodium 141 (140-148) mmol/L Potassium 3.9 (3.6-5.2) mmol/L Chloride 105 (100-108) mmol/L Carbon Dioxide 32 (21-32) mmol/L Anion Gap 4.3 L (5.0-14.0) mmol/L BUN 32 H D (7-18) mg/dL Creatinine 1.3 (0.8-1.3) mg/dL Est Cr Clr Drug Dosing 45.79 mL/min Estimated GFR (MDRD) 54 L (>60) Glucose 142 H (74-106) mg/dL Calcium 6.8 L* (8.5-10.1) mg/dL POC WB Ioniz Calcium (1.12-1.32) mmol/L Phosphorus 3.8 (2.5-4.9) mg/dL Magnesium 3.5 H (1.8-2.4) mg/dL Total Bilirubin 0.3 (0.2-1.0) mg/dL AST 12 L (15-37) U/L ALT 12 (12-78) U/L Alkaline Phosphatase 74 (46-116) U/L NT-Pro-B Natriuret Pep 613 H (5-450) pg/mL Total Protein 4.6 L (6.4-8.2) g/dL Albumin 1.9 L (3.4-5.0) g/dL Globulin 2.7 (2.3-3.5) g/dL Albumin/Globulin Ratio 0.7 L (1.2-2.2) Blood Type O POSITIVE Gel Antibody Screen Negative Crossmatch See Detail 04/10/18 Range/Units 08:52 WBC (4.5-11.0) K/uL RBC (4.30-5.90) M/uL Hgb (12.0-15.0) g/dL Hct (40.0-54.0) % MCV (80-98) fL MCH (27-31) pg MCHC (32-36) % Plt Count (150-400) K/uL Sodium (140-148) mmol/L Potassium (3.6-5.2) mmol/L Chloride (100-108) mmol/L Carbon Dioxide (21-32) mmol/L Anion Gap (5.0-14.0) mmol/L BUN (7-18) mg/dL Creatinine (0.8-1.3) mg/dL Est Cr Clr Drug Dosing mL/min Estimated GFR (MDRD) (>60) Glucose (74-106) mg/dL Calcium (8.5-10.1) mg/dL POC WB Ioniz Calcium 0.95 L* (1.12-1.32) mmol/L Phosphorus (2.5-4.9) mg/dL Magnesium (1.8-2.4) mg/dL Total Bilirubin (0.2-1.0) mg/dL AST (15-37) U/L ALT (12-78) U/L Alkaline Phosphatase (46-116) U/L NT-Pro-B Natriuret Pep (5-450) pg/mL Total Protein (6.4-8.2) g/dL Albumin (3.4-5.0) g/dL Globulin (2.3-3.5) g/dL Albumin/Globulin Ratio (1.2-2.2) Blood Type Gel Antibody Screen Crossmatch [place] Results Last 24 Hours: Microbiology 04/07/18 15:09 Gram Stain - Final Abdomen - Abscess Wound Culture - Preliminary Anaerobic Culture - Final NO GROWTH AFTER 3 DAYS Med Orders - Current: Current Medications Albuterol (Proventil Neb Soln) 2.5 mg NEB Q4H PRN PRN Reason: Dyspnea Last Admin: 04/05/18 18:03 Dose: 2.5 mg Albuterol/Ipratropium (Duoneb 3.0-0.5 Mg/3 Ml) 3 ml NEB QIDRT [facility] Last Admin: 04/10/18 11:19 Dose: 3 ml Dimethicone/Zinc Oxide (Rash Relief-Zinc Oxide [place]) 0 gm TOP ASDIRECTED PRN PRN Reason: Rash Last Admin: 03/28/18 16:55 Dose: 1 spray Diphenhydramine HCl (Benadryl) 25 mg IVPUSH Q6H PRN PRN Reason: Itching Last Admin: 04/09/18 12:19 Dose: 25 mg Furosemide (Lasix) 20 mg IVPUSH ONETIME ONE Stop: 04/10/18 20:01 Heparin Sodium (Porcine) (Heparin Lock Flush 100 Units/Ml) 500 units FLUSH ASDIRECTED PRN PRN Reason: IV Use Last Admin: 03/28/18 14:38 Dose: 500 units Hydroxyzine HCl (Vistaril) 100 mg IM Q6H PRN PRN Reason: Pain Last Admin: 04/10/18 09:27 Dose: 100 mg Meropenem 500 mg/ Sodium (Chloride) 50 mls @ 100 mls/hr IV Q8H [facility] Last Admin: 04/10/18 05:09 Dose: 100 mls/hr Multivitamins/Minerals 10 ml/Chromium/Copper/Manganese/Seleni/Zn 1 ml/ Amino Ac/ Electrol/Dextrose/Calcium 1,011 mls @ 82 mls/hr IV .BY DURATION [facility] Last Admin: 04/10/18 12:55 Dose: 82 mls/hr Amino Ac/Electrol/Dextrose/Calcium (Clinimix E 07/08) 1,000 mls @ 82 mls/hr IV .BY DURATION [facility] Last Admin: 04/10/18 00:26 Dose: 82 mls/hr Albumin Human (Albumin 25%) 25 gm in 100 mls @ 25 mls/hr IV Q24H [facility] Stop: 04/12/18 13:59 Last Admin: 04/10/18 10:15 Dose: 25 mls/hr Albumin Human (Albumin 25%) 25 gm in 100 mls @ 25 mls/hr IV Q24H [facility] Stop: 04/12/18 17:59 Last Admin: 04/09/18 14:31 Dose: 25 mls/hr Sodium Chloride (Normal Saline) 1,000 mls @ 0 mls/hr IV ASDIRECTED [facility] Potassium Phosphate 22.5 mmole (/ Sodium Chloride) 257.5 mls @ 86 mls/hr IV Q3H [facility] Stop: 04/10/18 15:59 Last Admin: 04/10/18 10:17 Dose: 86 mls/hr Calcium Gluconate 1 gm/ Sodium (Chloride) 110 mls @ 100 mls/hr IV Q6H [facility] Stop: 04/10/18 18:05 Last Admin: 04/10/18 11:07 Dose: 100 mls/hr Morphine Sulfate (Morphine Guest Experience Manager 150 Mg In 30 Ml) 0 mg IV ASDIRECTED PRN; Protocol PRN Reason: Pain Naloxone HCl (Narcan) 0.1 mg IV ASDIRECTED PRN PRN Reason: decreased respiratory rate Pantoprazole Sodium (Protonix Iv) 40 mg IV Q24H [facility] Last Admin: 04/10/18 07:22 Dose: 40 mg Discontinued Medications Acetaminophen (Tylenol) 650 mg RECTAL Q4H PRN PRN Reason: Fever Acetaminophen (Tylenol) 650 mg PO Q4H PRN PRN Reason: Pain/Fever Last Admin: 04/05/18 20:14 Dose: 650 mg Albuterol/Ipratropium (Duoneb 3.0-0.5 Mg/3 Ml) 3 ml NEB Q4H PRN PRN Reason: Dyspnea Albuterol/Ipratropium (Duoneb 3.0-0.5 Mg/3 Ml) 3 ml NEB ONETIME ONE Stop: 04/07/18 10:31 Last Admin: 04/07/18 10:26 Dose: Not Given Bupivacaine HCl (Marcaine 0.5%) Confirm Administered Dose 50 ml .ROUTE .STK-MED ONE Stop: 04/07/18 12:06 Ropivacaine 34 ml/Dexamethasone 8 mg/Epinephrine HCl 0.4 mg/ Sodium Chloride 43.6 ml 0 ml NERVRT ASDIRECTED [facility] Last Admin: 04/07/18 16:01 Dose: 80 syringe Dexamethasone (Dexamethasone) Confirm Administered Dose 4 mg .ROUTE .STK-MED ONE Stop: 03/18/18 19:48 Dexamethasone (Dexamethasone) Confirm Administered Dose 4 mg .ROUTE .STK-MED ONE Stop: 04/07/18 10:56 Epinephrine HCl (Adrenalin) Confirm Administered Dose 1 mg .ROUTE .STK-MED ONE Stop: 03/18/18 21:07 Erythromycin Ethylsuccinate (Eryped 400) 125 mg PO Q6H [facility] Last Admin: 04/07/18 15:14 Dose: Not Given Fentanyl (Sublimaze) Confirm Administered Dose 250 mcg .ROUTE .STK-MED ONE Stop: 03/18/18 19:48 Fentanyl (Sublimaze) Confirm Administered Dose 250 mcg .ROUTE .STK-MED ONE Stop: 04/02/18 12:59 Fentanyl (Sublimaze) Confirm Administered Dose 250 mcg .ROUTE .STK-MED ONE Stop: 04/07/18 10:56 Furosemide (Lasix) 20 mg IVPUSH ONETIME ONE Stop: 03/23/18 09:46 Last Admin: 03/23/18 10:18 Dose: 20 mg Furosemide (Lasix) 20 mg IVPUSH NOW ONE Stop: 03/25/18 10:01 Last Admin: 03/25/18 10:17 Dose: 20 mg Furosemide (Lasix) 20 mg IVPUSH ONETIME ONE Stop: 03/26/18 09:16 Last Admin: 03/26/18 09:10 Dose: 20 mg Furosemide (Lasix) 20 mg IVPUSH ONETIME ONE Stop: 03/26/18 16:01 Last Admin: 03/26/18 18:28 Dose: Not Given Furosemide (Lasix) 20 mg IVPUSH NOW ONE Stop: 03/27/18 10:01 Last Admin: 03/27/18 10:26 Dose: 20 mg Furosemide (Lasix) 20 mg IVPUSH ONETIME ONE Stop: 03/30/18 13:11 Last Admin: 03/30/18 13:36 Dose: 20 mg Furosemide (Lasix) 20 mg IVPUSH NOW ONE Stop: 03/31/18 11:55 Last Admin: 03/31/18 13:04 Dose: 20 mg Furosemide (Lasix) 20 mg IVPUSH NOW ONE Stop: 04/01/18 12:05 Last Admin: 04/01/18 12:43 Dose: 20 mg Furosemide (Lasix) 20 mg IVPUSH NOW ONE Stop: 04/02/18 15:46 Last Admin: 04/02/18 15:53 Dose: 20 mg Furosemide (Lasix) 40 mg IVPUSH NOW ONE Stop: 04/03/18 09:01 Last Admin: 04/03/18 09:45 Dose: 40 mg Furosemide (Lasix) 40 mg IVPUSH NOW ONE Stop: 04/04/18 15:31 Last Admin: 04/04/18 15:55 Dose: 40 mg Furosemide (Lasix) 40 mg IVPUSH NOW ONE Stop: 04/05/18 09:01 Last Admin: 04/05/18 10:15 Dose: 40 mg Furosemide (Lasix) 40 mg IVPUSH ONETIME ONE Stop: 04/08/18 12:01 Last Admin: 04/08/18 11:01 Dose: 40 mg Furosemide (Lasix) 40 mg IVPUSH ONETIME STA Stop: 04/09/18 06:48 Last Admin: 04/09/18 10:16 Dose: Not Given Furosemide (Lasix) 20 mg IVPUSH ONETIME ONE Stop: 04/09/18 12:01 Last Admin: 04/09/18 13:43 Dose: Not Given Furosemide (Lasix) 40 mg IVPUSH ONETIME STA Stop: 04/09/18 10:08 Last Admin: 04/09/18 10:09 Dose: 40 mg Furosemide (Lasix) Confirm Administered Dose 40 mg .ROUTE .STK-MED ONE Stop: 04/09/18 10:08 Last Admin: 04/09/18 10:16 Dose: 40 mg Furosemide (Lasix) 40 mg IVPUSH ONETIME ONE Stop: 04/09/18 16:01 Last Admin: 04/09/18 15:54 Dose: 40 mg Furosemide (Lasix) 40 mg IVPUSH ONETIME ONE Stop: 04/10/18 12:01 Last Admin: 04/10/18 14:03 Dose: 40 mg Glycopyrrolate (Robinul) Confirm Administered Dose 1 mg .ROUTE .STK-MED ONE Stop: 03/18/18 19:48 Glycopyrrolate (Robinul) Confirm Administered Dose 1 mg .ROUTE .STK-MED ONE Stop: 04/07/18 10:56 Heparin Sodium (Porcine) (Heparin Sodium) Confirm Administered Dose 5,000 units .ROUTE .STK-MED ONE Stop: 03/18/18 19:51 Heparin Sodium (Porcine) (Heparin Lock Flush 100 Units/Ml) Confirm Administered Dose 500 units .ROUTE .STK-MED ONE Stop: 03/22/18 12:17 Last Admin: 03/22/18 12:30 Dose: Not Given Heparin Sodium (Porcine) (Heparin Sodium) Confirm Administered Dose 5,000 units .ROUTE .STK-MED ONE Stop: 03/24/18 19:52 Last Admin: 03/24/18 20:33 Dose: 5,000 units Heparin Sodium (Porcine) (Heparin Lock Flush 100 Units/Ml) Confirm Administered Dose 1,000 units .ROUTE .STK-MED ONE Stop: 04/07/18 12:06 Last Admin: 04/07/18 14:30 Dose: 500 units Hydrocortisone Sodium Succinate (Solu-Cortef) 100 mg IVPUSH Q12H [facility] Last Admin: 03/28/18 20:15 Dose: 100 mg Hydrocortisone Sodium Succinate (Solu-Cortef) 100 mg IVPUSH DAILY [facility] Last Admin: 03/30/18 13:39 Dose: Not Given Hydromorphone HCl (Dilaudid) 0.5 mg IVPUSH ONETIME ONE Stop: 03/18/18 17:43 Last Admin: 03/18/18 17:47 Dose: 0.5 mg Hydromorphone HCl (Dilaudid) 1 mg IVPUSH ONETIME ONE Stop: 03/18/18 18:18 Last Admin: 03/18/18 18:27 Dose: 1 mg Sodium Chloride (Normal Saline) 1,000 mls @ 1,000 mls/hr IV ASDIRECTED [facility] Last Admin: 03/18/18 17:47 Dose: 1,000 mls/hr Sodium Chloride (Normal Saline) 1,000 mls @ 999 mls/hr IV ASDIRECTED [facility] Last Admin: 03/18/18 19:31 Dose: 999 mls/hr Meropenem 500 mg/ Sodium (Chloride) 50 mls @ 100 mls/hr IV ONETIME ONE Stop: 03/18/18 19:09 Last Admin: 03/18/18 19:01 Dose: 100 mls/hr Sodium Chloride (Normal Saline) Confirm Administered Dose 50 mls @ as directed .ROUTE .STK-MED ONE Stop: 03/18/18 19:40 Last Admin: 03/18/18 20:19 Dose: Not Given Aztreonam 2 gm/ Sodium (Chloride) 50 mls @ 100 mls/hr IV ONETIME ONE Stop: 03/18/18 20:01 Last Admin: 03/18/18 20:44 Dose: 100 mls/hr Meropenem 500 mg/ Sodium (Chloride) 50 mls @ 100 mls/hr IV ONETIME ONE Stop: 03/18/18 20:00 Last Admin: 03/18/18 19:40 Dose: 100 mls/hr Sodium Chloride (Normal Saline) Confirm Administered Dose 250 mls @ as directed .ROUTE .ST-MED ONE Stop: 03/18/18 19:59 Lactated Ringer's (Ringers, Lactated) Confirm Administered Dose 1,000 mls @ as directed .ROUTE .ST-MED ONE Stop: 03/18/18 19:59 Sodium Chloride (Normal Saline) Confirm Administered Dose 500 mls @ as directed .ROUTE .ST-MED ONE Stop: 03/18/18 19:59 Norepinephrine Bitartrate 8 mg (/ Dextrose/Water) 258 mls @ 3.87 mls/hr IV TITRATE [facility]; Protocol Last Admin: 03/19/18 11:45 Dose: 12 mcg/min, 23.22 mls/hr Lactated Ringer's (Ringers, Lactated) Confirm Administered Dose 1,000 mls @ as directed .ROUTE .STK-MED ONE Stop: 03/18/18 21:42 Propofol (Diprivan 100 Ml) 100 mls @ 2.082 mls/hr IV TITRATE [facility]; Protocol Last Titration: 03/27/18 06:35 Dose: 10 mcg/kg/min, 4.164 mls/hr Aztreonam 1 gm/ Sodium (Chloride) 50 mls @ 100 mls/hr IV Q8H [facility] Last Admin: 03/19/18 05:29 Dose: 100 mls/hr Potassium Chloride/Dextrose/Sod Cl (D5 1/2 Ns W/ 20 Meq/L Kcl) 1,000 mls @ 150 mls/hr IV ASDIRECTED [facility] Last Admin: 03/18/18 23:11 Dose: 150 mls/hr Meropenem 1 gm/ Sodium (Chloride) 50 mls @ 100 mls/hr IV Q12H [facility] Stop: 03/29/18 22:00 Last Admin: 03/29/18 20:10 Dose: 100 mls/hr Lactated Ringer's (Ringers, Lactated) 1,000 mls @ 500 mls/hr IV ASDIRECTED [facility] Last Admin: 03/19/18 01:23 Dose: 500 mls/hr Vasopressin 100 units/ (Dextrose/Water) 255 mls @ 1.53 mls/hr IV TITRATE [facility]; Protocol Stop: 03/21/18 13:00 Last Titration: 03/21/18 11:03 Dose: 0.02 units/min, 3.06 mls/hr Lactated Ringer's (Ringers, Lactated) 1,000 mls @ 500 mls/hr IV BOLUS [facility] Stop: 03/19/18 05:29 Last Admin: 03/19/18 04:02 Dose: 500 mls/hr Aztreonam/Dextrose 1 gm/ (Premix) 50 mls @ 100 mls/hr IV Q8H [facility] Last Admin: 03/28/18 05:26 Dose: 100 mls/hr Lactated Ringer's (Ringers, Lactated) 1,000 mls @ 500 mls/hr IV .BOLUS ONE Stop: 03/19/18 14:59 Last Admin: 03/19/18 14:27 Dose: 500 mls/hr Lactated Ringer's (Ringers, Lactated) 1,000 mls @ 150 mls/hr IV ASDIRECTED [facility] Last Admin: 03/21/18 11:53 Dose: 150 mls/hr Norepinephrine Bitartrate 8 mg (/ Dextrose/Water) 250 mls @ 3.75 mls/hr IV TITRATE [facility]; Protocol Last Titration: 03/27/18 09:04 Dose: 4 mcg/min, 7.5 mls/hr Magnesium Sulfate 2 gm/ Premix 50 mls @ 25 mls/hr IV Q6H [facility] Stop: 03/20/18 17:59 Last Admin: 03/20/18 16:30 Dose: 25 mls/hr Vancomycin HCl 1.25 gm/ Sodium (Chloride) 250 mls @ 170 mls/hr IV Q24H [facility] Last Admin: 03/22/18 10:06 Dose: 170 mls/hr Vasopressin 40 units/ Dextrose (/Water) 100 mls @ 3 mls/hr IV TITRATE [facility]; Protocol Last Titration: 03/23/18 01:00 Dose: 0 units/min, 0 mls/hr Potassium Chloride 20 meq/ (Premix) 100 mls @ 50 mls/hr IV Q2H [facility] Stop: 03/21/18 22:59 Last Admin: 03/21/18 22:20 Dose: 50 mls/hr Potassium Chloride 20 meq/ (Premix) 100 mls @ 50 mls/hr IV Q2H [facility] Stop: 03/22/18 12:59 Last Admin: 03/22/18 11:30 Dose: 50 mls/hr Potassium Chloride 20 meq/ (Premix) 100 mls @ 50 mls/hr IV Q2H [facility] Stop: 03/22/18 17:29 Last Admin: 03/22/18 16:13 Dose: 50 mls/hr Potassium Chloride (Kcl 20 Meq In Water 100 Ml) 100 mls @ 50 mls/hr IV Q2H [facility] Stop: 03/23/18 01:59 Last Admin: 03/23/18 00:53 Dose: 50 mls/hr Potassium Chloride 40 meq/ (Premix) 100 mls @ 25 mls/hr IV ONETIME ONE Stop: 03/23/18 14:29 Last Admin: 03/23/18 10:31 Dose: 25 mls/hr Vancomycin HCl 1.4 gm/ Sodium (Chloride) 250 mls @ 170 mls/hr IV Q24H [facility] Last Admin: 03/24/18 11:13 Dose: 170 mls/hr Multivitamins/Minerals 10 ml/Chromium/Copper/Manganese/Seleni/Zn 1 ml/ Amino Ac/ Electrol/Dextrose/Calcium 1,011 mls @ 75 mls/hr IV .BY DURATION [facility] Last Admin: 03/25/18 22:34 Dose: 75 mls/hr Amino Ac/Electrol/Dextrose/Calcium (Clinimix E 5/15) 1,000 mls @ 75 mls/hr IV .BY DURATION [facility] Last Admin: 03/25/18 08:11 Dose: 75 mls/hr Vasopressin 100 units/ (Dextrose/Water) 255 mls @ 1.53 mls/hr IV TITRATE [facility]; Protocol Last Titration: 03/25/18 11:51 Dose: 0 units/min, 0 mls/hr Potassium Chloride 20 meq/ (Premix) 100 mls @ 50 mls/hr IV Q2H [facility] Stop: 03/24/18 13:59 Last Admin: 03/24/18 12:13 Dose: 50 mls/hr Multivitamins/Minerals 10 ml/Chromium/Copper/Manganese/Seleni/Zn 1 ml/ Amino Ac/ Electrol/Dextrose/Calcium 1,011 mls @ 75 mls/hr IV .BY DURATION [facility] Last Admin: 03/29/18 06:48 Dose: 75 mls/hr Amino Ac/Electrol/Dextrose/Calcium (Clinimix E 5/15) 1,000 mls @ 75 mls/hr IV .BY DURATION [facility] Last Admin: 03/29/18 20:12 Dose: 75 mls/hr Heparin Sodium (Porcine) 5,000 (units/ Sodium Chloride) 501 mls @ 5 mls/hr IV ASDIRECTED [facility] Last Admin: 03/27/18 12:50 Dose: 5 mls/hr Sodium Chloride (Normal Saline) 1,000 mls @ 50 mls/hr IV ASDIRECTED [facility] Last Admin: 03/30/18 13:36 Dose: 50 mls/hr Dextrose/Sodium Chloride (Dextrose 5%-1/2 Ns) 1,000 mls @ 75 mls/hr IV ASDIRECTED [facility] Last Admin: 03/31/18 23:53 Dose: 75 mls/hr Albumin Human (Albumin 25%) 25 gm in 100 mls @ 25 mls/hr IV Q24H [facility] Stop: 04/02/18 12:59 Last Admin: 04/01/18 08:13 Dose: 25 mls/hr Potassium Phosphate 20 mmole/ (Sodium Chloride) 256.6667 mls @ 85 mls/hr IV Q3H [facility] Stop: 04/01/18 18:59 Last Admin: 04/01/18 18:37 Dose: 85 mls/hr Dextrose/Sodium Chloride (Dextrose 5%-1/2 Ns) 1,000 mls @ 80 mls/hr IV ASDIRECTED [facility] Last Admin: 04/03/18 06:40 Dose: 80 mls/hr Cefazolin Sodium/Dextrose 2 gm (/ Premix) 50 mls @ 100 mls/hr IV ONCALL ONE Stop: 04/02/18 11:59 Last Admin: 04/02/18 13:59 Dose: 100 mls/hr Potassium Acetate 20 meq/ (Sodium Chloride) 110 mls @ 55 mls/hr IV Q2H [facility] Stop: 04/02/18 11:59 Last Admin: 04/02/18 10:10 Dose: 55 mls/hr Magnesium Sulfate 2 gm/ Premix 50 mls @ 25 mls/hr IV Q6H [facility] Stop: 04/05/18 07:59 Last Admin: 04/03/18 12:11 Dose: 25 mls/hr Albumin Human (Albumin 25%) 25 gm in 100 mls @ 25 mls/hr IV ONETIME ONE Stop: 04/02/18 17:59 Last Admin: 04/02/18 15:30 Dose: 25 mls/hr Potassium Chloride 20 meq/Lidocaine HCl 2 ml/ Sodium Chloride 112 mls @ 56 mls/ hr IV Q2H [facility] Stop: 04/03/18 17:59 Last Admin: 04/03/18 17:04 Dose: 56 mls/hr Magnesium Sulfate 2 gm/ Premix 50 mls @ 25 mls/hr IV Q6H [facility] Stop: 04/08/18 03:59 Last Admin: 04/07/18 15:14 Dose: Not Given Potassium Phosphate 15 mmole/ (Sodium Chloride) 255 mls @ 128 mls/hr IV Q2H [facility] Stop: 04/06/18 13:59 Last Admin: 04/06/18 12:49 Dose: 128 mls/hr Dextrose/Lactated Ringer's (Dextrose 5%-Lactated Ringers) 1,000 mls @ 100 mls/ hr IV ASDIRECTED [facility] Last Admin: 04/07/18 08:44 Dose: 100 mls/hr Meropenem 500 mg/ Sodium (Chloride) 50 mls @ 100 mls/hr IV ONCALL ONE Stop: 04/07/18 11:59 Last Admin: 04/07/18 15:13 Dose: Not Given Linezolid (Zyvox) Confirm Administered Dose 300 mls @ as directed .ROUTE .STK- MED ONE Stop: 04/07/18 15:26 Lactated Ringer's (Ringers, Lactated) Confirm Administered Dose 1,000 mls @ as directed .ROUTE .STK-MED ONE Stop: 04/07/18 15:35 Linezolid 600 mg/ Premix 300 mls @ 300 mls/hr IV ONETIME ONE Stop: 04/07/18 17:29 Last Admin: 04/07/18 16:25 Dose: 300 mls/hr Dextrose/Lactated Ringer's (Dextrose 5%-Lactated Ringers) 1,000 mls @ 175 mls/ hr IV ASDIRECTED [facility] Last Admin: 04/08/18 06:21 Dose: 175 mls/hr Linezolid 600 mg/ Premix 300 mls @ 300 mls/hr IV Q12H [facility] Last Admin: 04/10/18 03:46 Dose: 300 mls/hr Magnesium Sulfate 2 gm/ Premix 50 mls @ 25 mls/hr IV Q6H [facility] Stop: 04/09/18 13:59 Last Admin: 04/09/18 11:40 Dose: 25 mls/hr Dextrose/Lactated Ringer's (Dextrose 5%-Lactated Ringers) 1,000 mls @ 100 drops /hr IV ASDIRECTED [facility] Last Admin: 04/09/18 11:39 Dose: 100 drops/hr Dextrose/Lactated Ringer's (Dextrose 5%-Lactated Ringers) 1,000 mls @ 25 mls/ hr IV ASDIRECTED [facility] Insulin Human Lispro (Humalog) 0 unit SUBCUT Q6H [facility]; Protocol Last Admin: 03/30/18 16:32 Dose: Not Given Insulin Human Lispro (Humalog) 0 unit SUBCUT Q6H [facility]; Protocol Last Admin: 03/31/18 03:52 Dose: Not Given Insulin Human Lispro (Humalog) 0 unit SUBCUT QIDACANDBED [facility]; Protocol Stop: 04/12/18 11:01 Last Admin: 03/31/18 13:17 Dose: Not Given Lidocaine/Epinephrine (Xylocaine 1% With Epinephrine 1:100,000) Confirm Administered Dose 50 ml .ROUTE .STK-MED ONE Stop: 04/07/18 12:06 Linezolid (Zyvox) 600 mg IRR .STK-MED ONE Stop: 04/07/18 16:06 Last Admin: 04/07/18 16:05 Dose: 600 mg Loperamide HCl (Imodium) 2 mg PO ASDIRECTED PRN PRN Reason: DIARRHEA Melatonin (Melatonin) 9 mg PO BEDTIME [facility] Last Admin: 04/06/18 21:40 Dose: 9 mg Meropenem (Merrem) Confirm Administered Dose 500 mg .ROUTE .STK-MED ONE Stop: 03/18/18 19:40 Last Admin: 03/18/18 20:19 Dose: Not Given Meropenem (Merrem) Confirm Administered Dose 500 mg .ROUTE .STK-MED ONE Stop: 04/07/18 14:38 Last Admin: 04/07/18 16:00 Dose: 500 mg Meropenem (Merrem) Confirm Administered Dose 500 mg .ROUTE .STK-MED ONE Stop: 04/07/18 15:08 Last Admin: 04/07/18 16:05 Dose: 500 mg Midazolam HCl (Versed 1 Mg/Ml) Confirm Administered Dose 2 mg .ROUTE .STK-MED ONE Stop: 04/02/18 12:59 Morphine Sulfate (Morphine) 4 mg IVPUSH Q2H PRN PRN Reason: Pain Last Admin: 03/29/18 07:34 Dose: 4 mg Morphine Sulfate (Morphine Guest Experience Manager 150 Mg In 30 Ml) 0 mg IV ASDIRECTED PRN; Protocol PRN Reason: Pain Last Admin: 04/07/18 10:00 Dose: 150 mg Neostigmine Methylsulfate (Neostigmine) Confirm Administered Dose 5 mg .ROUTE .STK-MED ONE Stop: 03/18/18 19:48 Neostigmine Methylsulfate (Neostigmine) Confirm Administered Dose 5 mg .ROUTE .STK-MED ONE Stop: 04/07/18 10:56 Non-Formulary Medication (Total Parenteral Nutrition, Central) 1,000 ml .XX .Continue Order [facility]; Protocol Stop: 03/24/18 11:31 Non-Formulary Medication (Total Parenteral Nutrition, Central) 1,000 ml .XX .Continue Order [facility]; Protocol Non-Formulary Medication (Total Parenteral Nutrition, Central) 1,000 ml .XX .Continue Order [facility]; Protocol Non-Formulary Medication (Total Parenteral Nutrition, Central) 1,000 ml .XX .Continue Order [facility]; Protocol Stop: 03/28/18 12:00 Non-Formulary Medication (Total Parenteral Nutrition, Central) 1,000 ml .XX .Continue Order [facility] Stop: 04/08/18 08:01 Non-Formulary Medication (Total Parenteral Nutrition, Central) 1,000 ml .XX .Continue Order [facility] Stop: 04/09/18 10:00 Non-Formulary Medication (Total Parenteral Nutrition, Central) 1,000 ml .XX .Continue Order [facility] Stop: 04/10/18 10:00 Nystatin (Mycostatin) 5 ml PO QID [facility] Last Admin: 04/04/18 15:25 Dose: 5 ml Ondansetron HCl (Zofran) 4 mg IVPUSH ONETIME ONE Stop: 03/18/18 18:18 Last Admin: 03/18/18 18:27 Dose: 4 mg Ondansetron HCl (Zofran) Confirm Administered Dose 4 mg .ROUTE .STK-MED ONE Stop: 03/18/18 19:48 Ondansetron HCl (Zofran) Confirm Administered Dose 4 mg .ROUTE .STK-MED ONE Stop: 04/07/18 10:56 Oxycodone HCl (Oxycodone) 5 mg PO Q4H PRN PRN Reason: Pain (moderate 4-6) Last Admin: 04/06/18 05:19 Dose: 5 mg Pantoprazole Sodium (Protonix Iv) 40 mg IVPUSH DAILY [facility] Last Admin: 03/28/18 08:34 Dose: 40 mg Pantoprazole Sodium (Protonix) 40 mg PO ACBREAKFAST [facility] Last Admin: 04/07/18 08:10 Dose: 40 mg Phenylephrine HCl (Isaías-Synephrine) Confirm Administered Dose 10 mg .ROUTE .STK- MED ONE Stop: 03/18/18 20:05 Potassium Chloride (Klor-Con M20) 40 meq PO ONETIME ONE Stop: 04/03/18 13:16 Last Admin: 04/03/18 14:33 Dose: 40 meq Potassium Chloride (Klor-Con M20) 40 meq PO ONETIME ONE Stop: 04/03/18 17:01 Last Admin: 04/03/18 20:55 Dose: 40 meq Potassium Chloride (Klor-Con M20) 40 meq PO ONETIME ONE Stop: 04/04/18 09:01 Last Admin: 04/04/18 09:34 Dose: 40 meq Potassium Chloride (Klor-Con M20) 40 meq PO ONETIME ONE Stop: 04/04/18 17:01 Last Admin: 04/04/18 17:08 Dose: 40 meq Potassium Chloride (Klor-Con M20) 40 meq PO ONETIME ONE Stop: 04/05/18 09:01 Last Admin: 04/05/18 10:14 Dose: 40 meq Potassium Chloride (Klor-Con M20) 40 meq PO ONETIME ONE Stop: 04/05/18 17:01 Last Admin: 04/05/18 18:00 Dose: 40 meq Prednisone (Prednisone) 20 mg PO WITHBREAKFAST [facility] Last Admin: 03/30/18 08:59 Dose: 20 mg Propofol (Diprivan 20 Ml) Confirm Administered Dose 200 mg .ROUTE .STK-MED ONE Stop: 03/18/18 19:48 Propofol (Diprivan 20 Ml) Confirm Administered Dose 200 mg .ROUTE .STK-MED ONE Stop: 04/02/18 12:59 Propofol (Diprivan 20 Ml) Confirm Administered Dose 200 mg .ROUTE .STK-MED ONE Stop: 04/07/18 10:56 Rocuronium [place] (Zemuron) Confirm Administered Dose 50 mg .ROUTE .STK-MED ONE Stop: 03/18/18 19:48 Rocuronium [place] (Zemuron) Confirm Administered Dose 50 mg .ROUTE .STK-MED ONE Stop: 04/07/18 10:56 Succinylcholine Chloride (Quelicin) Confirm Administered Dose 200 mg .ROUTE .STK -MED ONE Stop: 03/18/18 19:48 Vancomycin HCl (Vancomycin) 1 gm IV .PHARMACY TO DOSE [facility] Stop: 03/21/18 16:00 - Exam General: Cooperative, Mild Distress Lungs: Clear to Auscultation, Normal Respiratory Effort Cardiovascular: Regular Rate, Regular Rhythm, No Murmurs GI/Abdominal Exam: Soft, No Organomegaly, Tender. No: Distended, Guarding, Rigid, Rebound Extremities: Non-Tender, No Pedal Edema - Problem List Review Problem List Initiated/Reviewed/Updated: Yes - My Orders Last 24 Hours: My Active Orders 04/10/18 11:00 Calcium Gluconate 1 gm Sodium Chloride 0.9% [Normal Saline] 100 ml IV Q6H - Plan Plan:: ASSESSMENT AND PLAN WOUND DEHISCENCE WITH UNDERLYING ABSCESS - status post exploratory laparotomy . Pain is better controlled today. Tolerating antibiotics. Cultures from peritoneal fluid and blood culture growing Escherichia coli sensitive to current meropenem -Continue meropenem -Discontinue Zyvox -Surgical follow-up per surgery team SIGMOID COLON PERFORATION RESULTING IN ACUTE ABDOMEN AND SEPTIC SHOCK - postop course complicated by wound dehiscence as above. He is receiving nutritional support via TPN. -Continue TPN initiated today -Nothing by mouth at this time -Post operative surgical care per surgical team -Pain control -Saline lock IV SEPTIC SHOCK - resolved ACUTE HYPOXIC RESPIRATORY FAILURE - respiratory status seems to be slowly declining again and I suspect is related to excess fluid. He has been positive for the last several days. He is receiving a unit of blood today as well. -Coughing, deep breathing and suctioning as able -Furosemide daily COPD - [id number] smoking history but no evidence for exacerbation at this time. -Nebulized albuterol as needed -Vigorous pulmonary toilet during the postoperative period HISTORY OF LUNG AND PROSTATE CARCINOMA - lung cancer felt to be stable, had been receiving treatment for management of prostate carcinoma prior to admission MAINTENANCE ISSUES -DVT prophylaxis; SCUDs -GI prophylaxis; Protonix 40 mg daily -Sorto catheter; placed at the time of surgery for strict intake and output monitoring -Nutrition; nothing by mouth DISPOSITION - anticipate discharge to residential after the hospital stay.
[2018-04-10] MEDS ORDERED: Furosemide 20 MG/2 ML VIAL IVPUSH ONE (20:00)
[2018-04-11] MEDS: hydrOXYzine HCl 100 MG/2 ML SDV IM PRN ×2 (00:38→08:49)
[2018-04-11] MEDS: 1: AA 5%/Calcium/D15W/Lytes 1,000 ML with MVI, Adult with Vitamin K 10 ML, Chromium/Copp IV SCH ×6 (01:05→12:58)
[2018-04-11] MEDS: Pantoprazole 40 MG Vial IV SCH (06:22)
[2018-04-11] MEDS: Meropenem 500 MG in Sodium Chloride 0.9% 50 ML IV SCH (06:23)
[2018-04-11] MEDS: Albuterol/Ipratropium 3.0-0.5 MG/3 ML Neb Soln NEB SCH ×4 (07:23→21:26)
[2018-04-11] MEDS ORDERED: Central Total Parenteral Nutrition Bag SCH (07:30)
--- NOTE | 2018-04-11 10:44 | PN ---
DATE OF SERVICE: 04/11/2018 SUBJECTIVE: Kodak has been more comfortable. He is getting the COCONUT BOILER for pain as well as Vistaril. Vital signs have been stable, temp max of 99. He has had no oral intake recorded in chart, small amount of stool in ostomy. Sorto catheter. Urinary output was 7175. Gastrostomy tube 50 mL. This has been clamped for 6 hours, unclamped for 1. EMEKA drains have put out 100, 5, and 0 of a serosanguineous drainage. REVIEW OF SYSTEMS: Remainder of review of systems negative for any pertinent positives and negatives. OBJECTIVE: GENERAL: Kodak Silva is an of 77-year-old male. He is very sleepy this morning, hard to arouse. VITAL SIGNS: TPR is 99, 87, 20; blood pressure 129/58. HEENT: Negative. NECK: Supple. HEART: Regular rate and rhythm. LUNGS: Reveal decreased breath sounds bilaterally, but he is quite sleepy, unable to take a deep inspiration. ABDOMEN: Wound VAC is on, gastrostomy tube clamped. Colostomy bag intact. Small amount of stool is forming at the stoma. EXTREMITIES: Reveal trace peripheral edema. ASSESSMENT: 1. Insertion of left subclavian triple lumen. a. Exploratory laparotomy, drainage of intraabdominal abscesses. b. Small-bowel resection. c. Small bowel strictureplasty. d. Placement of Vicryl mesh. 2. Closure of fascial dehiscence with evisceration of intraabdominal abscess with focal small-bowel stricture, focal areas of small bowel deserosalization. Insertion of subclavian triple lumen. Date of surgery 04/07/2018. Surgeon, Fredi Linn MD. PLAN: 1. Continue TPN, same rate and content. 2. Check CBC, CMP, mag, and phos in a.m. 3. Good pulmonary toilet. 4. We will evaluate p.r.n. or in a.m. Rula Morley PA-C /[id number]
--- NOTE | 2018-04-11 11:17 | PCM.PN ---
- General Info Date of Service: 04/11/18 Subjective Update: Mr. Silva has remained fairly lethargic since yesterday, hemodynamically stable and afebrile. Respiratory status is been stable, pain control good except with movement. - Review of Systems General: Reports: Weakness. Denies: Fever, Chills Pulmonary: Reports: No Symptoms Cardiovascular: Reports: No Symptoms Gastrointestinal: Reports: Abdominal Pain. Denies: Difficulty Swallowing, Hematochezia, Melena, Nausea, Vomiting - Patient Data Vitals - Most Recent: Last Vital Signs Temp 98.3 F 04/11/18 08:29 Pulse 90 04/11/18 11:01 Resp 16 04/11/18 08:29 BP 124/62 04/11/18 08:29 Pulse Ox 95 04/11/18 11:01 Weight - Most Recent: 153 lb 0.013 oz I&O - Last 24 Hours: Intake & Output 04/10/18 04/11/18 04/11/18 22:59 06:59 14:59 Intake Total 2205 1116 Output Total 2411 1235 Balance -210 -1699 Lab Results Last 24 Hours: Laboratory Results - last 24 hr 04/09/18 04/11/18 04/11/18 Range/Units 09:50 04:43 04:43 WBC 14.5 H (4.5-11.0) K/uL RBC 3.36 L (4.30-5.90) M/uL Hgb 9.9 L (12.0-15.0) g/dL Hct 31.3 L (40.0-54.0) % MCV 93 (80-98) fL MCH 30 (27-31) pg MCHC 32 (32-36) % Plt Count 225 (150-400) K/uL Sodium 142 (140-148) mmol/L Potassium 4.1 (3.6-5.2) mmol/L Chloride 104 (100-108) mmol/L Carbon Dioxide 30 (21-32) mmol/L Anion Gap 7.6 (5.0-14.0) mmol/L BUN 37 H (7-18) mg/dL Creatinine 1.2 (0.8-1.3) mg/dL Est Cr Clr Drug Dosing 49.61 mL/min Estimated GFR (MDRD) 59 L (>60) Glucose 128 H (74-106) mg/dL Calcium 7.5 L (8.5-10.1) mg/dL Phosphorus 4.9 (2.5-4.9) mg/dL Magnesium 2.6 H (1.8-2.4) mg/dL Total Bilirubin 1.0 D (0.2-1.0) mg/dL AST 23 D (15-37) U/L ALT 19 (12-78) U/L Alkaline Phosphatase 102 (46-116) U/L NT-Pro-B Natriuret Pep 964 H (5-450) pg/mL Total Protein 5.4 L (6.4-8.2) g/dL Albumin 2.5 L (3.4-5.0) g/dL Globulin 2.9 (2.3-3.5) g/dL Albumin/Globulin Ratio 0.9 L (1.2-2.2) Crossmatch See Detail Dante Results Last 24 Hours: Microbiology 04/07/18 15:09 Gram Stain - Final Abdomen - Abscess Wound Culture - Final Ralstonia Pickettii Staphylococcus Haemolyticus Staphylococcus Epidermidis Anaerobic Culture - Final NO GROWTH AFTER 3 DAYS Med Orders - Current: Current Medications Albuterol (Proventil Neb Soln) 2.5 mg NEB Q4H PRN PRN Reason: Dyspnea Last Admin: 04/05/18 18:03 Dose: 2.5 mg Albuterol/Ipratropium (Duoneb 3.0-0.5 Mg/3 Ml) 3 ml NEB QIDRT [facility] Last Admin: 04/11/18 11:01 Dose: 3 ml Dimethicone/Zinc Oxide (Rash Relief-Zinc Oxide Bradley) 0 gm TOP ASDIRECTED PRN PRN Reason: Rash Last Admin: 03/28/18 16:55 Dose: 1 spray Diphenhydramine HCl (Benadryl) 25 mg IVPUSH Q6H PRN PRN Reason: Itching Last Admin: 04/09/18 12:19 Dose: 25 mg Furosemide (Lasix) 40 mg IVPUSH NOW ONE Stop: 04/11/18 11:09 Heparin Sodium (Porcine) (Heparin Lock Flush 100 Units/Ml) 500 units FLUSH ASDIRECTED PRN PRN Reason: IV Use Last Admin: 03/28/18 14:38 Dose: 500 units Hydroxyzine HCl (Vistaril) 100 mg IM Q6H PRN PRN Reason: Pain Last Admin: 04/11/18 08:49 Dose: 100 mg Multivitamins/Minerals 10 ml/Chromium/Copper/Manganese/Seleni/Zn 1 ml/ Amino Ac/ Electrol/Dextrose/Calcium 1,011 mls @ 82 mls/hr IV .BY DURATION [facility] Last Admin: 04/10/18 12:55 Dose: 82 mls/hr Amino Ac/Electrol/Dextrose/Calcium (Clinimix E 07/08) 1,000 mls @ 82 mls/hr IV .BY DURATION [facility] Last Admin: 04/11/18 01:05 Dose: 82 mls/hr Albumin Human (Albumin 25%) 25 gm in 100 mls @ 25 mls/hr IV Q24H [facility] Stop: 04/12/18 13:59 Last Admin: 04/11/18 09:04 Dose: 25 mls/hr Albumin Human (Albumin 25%) 25 gm in 100 mls @ 25 mls/hr IV Q24H [facility] Stop: 04/12/18 17:59 Last Admin: 04/10/18 14:10 Dose: 25 mls/hr Sodium Chloride (Normal Saline) 1,000 mls @ 0 mls/hr IV ASDIRECTED [facility] Doxycycline Hyclate 100 mg/ (Sodium Chloride) 100 mls @ 100 mls/hr IV Q12HR [facility] Ciprofloxacin/Dextrose 400 mg/ (Premix) 200 mls @ 200 mls/hr IV Q12H [facility] Lactobacillus Rhamnosus (Culturelle) 1 cap PO BID [facility] Morphine Sulfate (Morphine Front End Java Developer 150 Mg In 30 Ml) 0 mg IV ASDIRECTED PRN; Protocol PRN Reason: Pain Naloxone HCl (Narcan) 0.1 mg IV ASDIRECTED PRN PRN Reason: decreased respiratory rate Pantoprazole Sodium (Protonix Iv) 40 mg IV Q24H [facility] Last Admin: 04/11/18 06:22 Dose: 40 mg Discontinued Medications Acetaminophen (Tylenol) 650 mg RECTAL Q4H PRN PRN Reason: Fever Acetaminophen (Tylenol) 650 mg PO Q4H PRN PRN Reason: Pain/Fever Last Admin: 04/05/18 20:14 Dose: 650 mg Albuterol/Ipratropium (Duoneb 3.0-0.5 Mg/3 Ml) 3 ml NEB Q4H PRN PRN Reason: Dyspnea Albuterol/Ipratropium (Duoneb 3.0-0.5 Mg/3 Ml) 3 ml NEB ONETIME ONE Stop: 04/07/18 10:31 Last Admin: 04/07/18 10:26 Dose: Not Given Bupivacaine HCl (Marcaine 0.5%) Confirm Administered Dose 50 ml .ROUTE .STK-MED ONE Stop: 04/07/18 12:06 Ropivacaine 34 ml/Dexamethasone 8 mg/Epinephrine HCl 0.4 mg/ Sodium Chloride 43.6 ml 0 ml NERVRT ASDIRECTED [facility] Last Admin: 04/07/18 16:01 Dose: 80 syringe Dexamethasone (Dexamethasone) Confirm Administered Dose 4 mg .ROUTE .STK-MED ONE Stop: 03/18/18 19:48 Dexamethasone (Dexamethasone) Confirm Administered Dose 4 mg .ROUTE .STK-MED ONE Stop: 04/07/18 10:56 Epinephrine HCl (Adrenalin) Confirm Administered Dose 1 mg .ROUTE .STK-MED ONE Stop: 03/18/18 21:07 Erythromycin Ethylsuccinate (Eryped 400) 125 mg PO Q6H [facility] Last Admin: 04/07/18 15:14 Dose: Not Given Fentanyl (Sublimaze) Confirm Administered Dose 250 mcg .ROUTE .STK-MED ONE Stop: 03/18/18 19:48 Fentanyl (Sublimaze) Confirm Administered Dose 250 mcg .ROUTE .STK-MED ONE Stop: 04/02/18 12:59 Fentanyl (Sublimaze) Confirm Administered Dose 250 mcg .ROUTE .STK-MED ONE Stop: 04/07/18 10:56 Furosemide (Lasix) 20 mg IVPUSH ONETIME ONE Stop: 03/23/18 09:46 Last Admin: 03/23/18 10:18 Dose: 20 mg Furosemide (Lasix) 20 mg IVPUSH NOW ONE Stop: 03/25/18 10:01 Last Admin: 03/25/18 10:17 Dose: 20 mg Furosemide (Lasix) 20 mg IVPUSH ONETIME ONE Stop: 03/26/18 09:16 Last Admin: 03/26/18 09:10 Dose: 20 mg Furosemide (Lasix) 20 mg IVPUSH ONETIME ONE Stop: 03/26/18 16:01 Last Admin: 03/26/18 18:28 Dose: Not Given Furosemide (Lasix) 20 mg IVPUSH NOW ONE Stop: 03/27/18 10:01 Last Admin: 03/27/18 10:26 Dose: 20 mg Furosemide (Lasix) 20 mg IVPUSH ONETIME ONE Stop: 03/30/18 13:11 Last Admin: 03/30/18 13:36 Dose: 20 mg Furosemide (Lasix) 20 mg IVPUSH NOW ONE Stop: 03/31/18 11:55 Last Admin: 03/31/18 13:04 Dose: 20 mg Furosemide (Lasix) 20 mg IVPUSH NOW ONE Stop: 04/01/18 12:05 Last Admin: 04/01/18 12:43 Dose: 20 mg Furosemide (Lasix) 20 mg IVPUSH NOW ONE Stop: 04/02/18 15:46 Last Admin: 04/02/18 15:53 Dose: 20 mg Furosemide (Lasix) 40 mg IVPUSH NOW ONE Stop: 04/03/18 09:01 Last Admin: 04/03/18 09:45 Dose: 40 mg Furosemide (Lasix) 40 mg IVPUSH NOW ONE Stop: 04/04/18 15:31 Last Admin: 04/04/18 15:55 Dose: 40 mg Furosemide (Lasix) 40 mg IVPUSH NOW ONE Stop: 04/05/18 09:01 Last Admin: 04/05/18 10:15 Dose: 40 mg Furosemide (Lasix) 40 mg IVPUSH ONETIME ONE Stop: 04/08/18 12:01 Last Admin: 04/08/18 11:01 Dose: 40 mg Furosemide (Lasix) 40 mg IVPUSH ONETIME STA Stop: 04/09/18 06:48 Last Admin: 04/09/18 10:16 Dose: Not Given Furosemide (Lasix) 20 mg IVPUSH ONETIME ONE Stop: 04/09/18 12:01 Last Admin: 04/09/18 13:43 Dose: Not Given Furosemide (Lasix) 40 mg IVPUSH ONETIME STA Stop: 04/09/18 10:08 Last Admin: 04/09/18 10:09 Dose: 40 mg Furosemide (Lasix) Confirm Administered Dose 40 mg .ROUTE .STK-MED ONE Stop: 04/09/18 10:08 Last Admin: 04/09/18 10:16 Dose: 40 mg Furosemide (Lasix) 40 mg IVPUSH ONETIME ONE Stop: 04/09/18 16:01 Last Admin: 04/09/18 15:54 Dose: 40 mg Furosemide (Lasix) 40 mg IVPUSH ONETIME ONE Stop: 04/10/18 12:01 Last Admin: 04/10/18 14:03 Dose: 40 mg Furosemide (Lasix) 20 mg IVPUSH ONETIME ONE Stop: 04/10/18 20:01 Last Admin: 04/10/18 21:10 Dose: 20 mg Glycopyrrolate (Robinul) Confirm Administered Dose 1 mg .ROUTE .STK-MED ONE Stop: 03/18/18 19:48 Glycopyrrolate (Robinul) Confirm Administered Dose 1 mg .ROUTE .STK-MED ONE Stop: 04/07/18 10:56 Heparin Sodium (Porcine) (Heparin Sodium) Confirm Administered Dose 5,000 units .ROUTE .STK-MED ONE Stop: 03/18/18 19:51 Heparin Sodium (Porcine) (Heparin Lock Flush 100 Units/Ml) Confirm Administered Dose 500 units .ROUTE .STK-MED ONE Stop: 03/22/18 12:17 Last Admin: 03/22/18 12:30 Dose: Not Given Heparin Sodium (Porcine) (Heparin Sodium) Confirm Administered Dose 5,000 units .ROUTE .STK-MED ONE Stop: 03/24/18 19:52 Last Admin: 03/24/18 20:33 Dose: 5,000 units Heparin Sodium (Porcine) (Heparin Lock Flush 100 Units/Ml) Confirm Administered Dose 1,000 units .ROUTE .STK-MED ONE Stop: 04/07/18 12:06 Last Admin: 04/07/18 14:30 Dose: 500 units Hydrocortisone Sodium Succinate (Solu-Cortef) 100 mg IVPUSH Q12H [facility] Last Admin: 03/28/18 20:15 Dose: 100 mg Hydrocortisone Sodium Succinate (Solu-Cortef) 100 mg IVPUSH DAILY [facility] Last Admin: 03/30/18 13:39 Dose: Not Given Hydromorphone HCl (Dilaudid) 0.5 mg IVPUSH ONETIME ONE Stop: 03/18/18 17:43 Last Admin: 03/18/18 17:47 Dose: 0.5 mg Hydromorphone HCl (Dilaudid) 1 mg IVPUSH ONETIME ONE Stop: 03/18/18 18:18 Last Admin: 03/18/18 18:27 Dose: 1 mg Sodium Chloride (Normal Saline) 1,000 mls @ 1,000 mls/hr IV ASDIRECTED [facility] Last Admin: 03/18/18 17:47 Dose: 1,000 mls/hr Sodium Chloride (Normal Saline) 1,000 mls @ 999 mls/hr IV ASDIRECTED [facility] Last Admin: 03/18/18 19:31 Dose: 999 mls/hr Meropenem 500 mg/ Sodium (Chloride) 50 mls @ 100 mls/hr IV ONETIME ONE Stop: 03/18/18 19:09 Last Admin: 03/18/18 19:01 Dose: 100 mls/hr Sodium Chloride (Normal Saline) Confirm Administered Dose 50 mls @ as directed .ROUTE .STK-MED ONE Stop: 03/18/18 19:40 Last Admin: 03/18/18 20:19 Dose: Not Given Aztreonam 2 gm/ Sodium (Chloride) 50 mls @ 100 mls/hr IV ONETIME ONE Stop: 03/18/18 20:01 Last Admin: 03/18/18 20:44 Dose: 100 mls/hr Meropenem 500 mg/ Sodium (Chloride) 50 mls @ 100 mls/hr IV ONETIME ONE Stop: 03/18/18 20:00 Last Admin: 03/18/18 19:40 Dose: 100 mls/hr Sodium Chloride (Normal Saline) Confirm Administered Dose 250 mls @ as directed .ROUTE .STK-MED ONE Stop: 03/18/18 19:59 Lactated Ringer's (Ringers, Lactated) Confirm Administered Dose 1,000 mls @ as directed .ROUTE .STK-MED ONE Stop: 03/18/18 19:59 Sodium Chloride (Normal Saline) Confirm Administered Dose 500 mls @ as directed .ROUTE .STK-MED ONE Stop: 03/18/18 19:59 Norepinephrine Bitartrate 8 mg (/ Dextrose/Water) 258 mls @ 3.87 mls/hr IV TITRATE [facility]; Protocol Last Admin: 03/19/18 11:45 Dose: 12 mcg/min, 23.22 mls/hr Lactated Ringer's (Ringers, Lactated) Confirm Administered Dose 1,000 mls @ as directed .ROUTE .STK-MED ONE Stop: 03/18/18 21:42 Propofol (Diprivan 100 Ml) 100 mls @ 2.082 mls/hr IV TITRATE [facility]; Protocol Last Titration: 03/27/18 06:35 Dose: 10 mcg/kg/min, 4.164 mls/hr Aztreonam 1 gm/ Sodium (Chloride) 50 mls @ 100 mls/hr IV Q8H [facility] Last Admin: 03/19/18 05:29 Dose: 100 mls/hr Potassium Chloride/Dextrose/Sod Cl (D5 1/2 Ns W/ 20 Meq/L Kcl) 1,000 mls @ 150 mls/hr IV ASDIRECTED [facility] Last Admin: 03/18/18 23:11 Dose: 150 mls/hr Meropenem 1 gm/ Sodium (Chloride) 50 mls @ 100 mls/hr IV Q12H [facility] Stop: 03/29/18 22:00 Last Admin: 03/29/18 20:10 Dose: 100 mls/hr Lactated Ringer's (Ringers, Lactated) 1,000 mls @ 500 mls/hr IV ASDIRECTED [facility] Last Admin: 03/19/18 01:23 Dose: 500 mls/hr Vasopressin 100 units/ (Dextrose/Water) 255 mls @ 1.53 mls/hr IV TITRATE [facility]; Protocol Stop: 03/21/18 13:00 Last Titration: 03/21/18 11:03 Dose: 0.02 units/min, 3.06 mls/hr Lactated Ringer's (Ringers, Lactated) 1,000 mls @ 500 mls/hr IV BOLUS [facility] Stop: 03/19/18 05:29 Last Admin: 03/19/18 04:02 Dose: 500 mls/hr Aztreonam/Dextrose 1 gm/ (Premix) 50 mls @ 100 mls/hr IV Q8H [facility] Last Admin: 03/28/18 05:26 Dose: 100 mls/hr Lactated Ringer's (Ringers, Lactated) 1,000 mls @ 500 mls/hr IV .BOLUS ONE Stop: 03/19/18 14:59 Last Admin: 03/19/18 14:27 Dose: 500 mls/hr Lactated Ringer's (Ringers, Lactated) 1,000 mls @ 150 mls/hr IV ASDIRECTED [facility] Last Admin: 03/21/18 11:53 Dose: 150 mls/hr Norepinephrine Bitartrate 8 mg (/ Dextrose/Water) 250 mls @ 3.75 mls/hr IV TITRATE [facility]; Protocol Last Titration: 03/27/18 09:04 Dose: 4 mcg/min, 7.5 mls/hr Magnesium Sulfate 2 gm/ Premix 50 mls @ 25 mls/hr IV Q6H [facility] Stop: 03/20/18 17:59 Last Admin: 03/20/18 16:30 Dose: 25 mls/hr Vancomycin HCl 1.25 gm/ Sodium (Chloride) 250 mls @ 170 mls/hr IV Q24H [facility] Last Admin: 03/22/18 10:06 Dose: 170 mls/hr Vasopressin 40 units/ Dextrose (/Water) 100 mls @ 3 mls/hr IV TITRATE [facility]; Protocol Last Titration: 03/23/18 01:00 Dose: 0 units/min, 0 mls/hr Potassium Chloride 20 meq/ (Premix) 100 mls @ 50 mls/hr IV Q2H [facility] Stop: 03/21/18 22:59 Last Admin: 03/21/18 22:20 Dose: 50 mls/hr Potassium Chloride 20 meq/ (Premix) 100 mls @ 50 mls/hr IV Q2H [facility] Stop: 03/22/18 12:59 Last Admin: 03/22/18 11:30 Dose: 50 mls/hr Potassium Chloride 20 meq/ (Premix) 100 mls @ 50 mls/hr IV Q2H [facility] Stop: 03/22/18 17:29 Last Admin: 03/22/18 16:13 Dose: 50 mls/hr Potassium Chloride (Kcl 20 Meq In Water 100 Ml) 100 mls @ 50 mls/hr IV Q2H [facility] Stop: 03/23/18 01:59 Last Admin: 03/23/18 00:53 Dose: 50 mls/hr Potassium Chloride 40 meq/ (Premix) 100 mls @ 25 mls/hr IV ONETIME ONE Stop: 03/23/18 14:29 Last Admin: 03/23/18 10:31 Dose: 25 mls/hr Vancomycin HCl 1.4 gm/ Sodium (Chloride) 250 mls @ 170 mls/hr IV Q24H [facility] Last Admin: 03/24/18 11:13 Dose: 170 mls/hr Multivitamins/Minerals 10 ml/Chromium/Copper/Manganese/Seleni/Zn 1 ml/ Amino Ac/ Electrol/Dextrose/Calcium 1,011 mls @ 75 mls/hr IV .BY DURATION [facility] Last Admin: 03/25/18 22:34 Dose: 75 mls/hr Amino Ac/Electrol/Dextrose/Calcium (Clinimix E 5/15) 1,000 mls @ 75 mls/hr IV .BY DURATION [facility] Last Admin: 03/25/18 08:11 Dose: 75 mls/hr Vasopressin 100 units/ (Dextrose/Water) 255 mls @ 1.53 mls/hr IV TITRATE [facility]; Protocol Last Titration: 03/25/18 11:51 Dose: 0 units/min, 0 mls/hr Potassium Chloride 20 meq/ (Premix) 100 mls @ 50 mls/hr IV Q2H [facility] Stop: 03/24/18 13:59 Last Admin: 03/24/18 12:13 Dose: 50 mls/hr Multivitamins/Minerals 10 ml/Chromium/Copper/Manganese/Seleni/Zn 1 ml/ Amino Ac/ Electrol/Dextrose/Calcium 1,011 mls @ 75 mls/hr IV .BY DURATION [facility] Last Admin: 03/29/18 06:48 Dose: 75 mls/hr Amino Ac/Electrol/Dextrose/Calcium (Clinimix E 5/15) 1,000 mls @ 75 mls/hr IV .BY DURATION [facility] Last Admin: 03/29/18 20:12 Dose: 75 mls/hr Heparin Sodium (Porcine) 5,000 (units/ Sodium Chloride) 501 mls @ 5 mls/hr IV ASDIRECTED [facility] Last Admin: 03/27/18 12:50 Dose: 5 mls/hr Sodium Chloride (Normal Saline) 1,000 mls @ 50 mls/hr IV ASDIRECTED [facility] Last Admin: 03/30/18 13:36 Dose: 50 mls/hr Dextrose/Sodium Chloride (Dextrose 5%-1/2 Ns) 1,000 mls @ 75 mls/hr IV ASDIRECTED [facility] Last Admin: 03/31/18 23:53 Dose: 75 mls/hr Albumin Human (Albumin 25%) 25 gm in 100 mls @ 25 mls/hr IV Q24H [facility] Stop: 04/02/18 12:59 Last Admin: 04/01/18 08:13 Dose: 25 mls/hr Potassium Phosphate 20 mmole/ (Sodium Chloride) 256.6667 mls @ 85 mls/hr IV Q3H [facility] Stop: 04/01/18 18:59 Last Admin: 04/01/18 18:37 Dose: 85 mls/hr Dextrose/Sodium Chloride (Dextrose 5%-1/2 Ns) 1,000 mls @ 80 mls/hr IV ASDIRECTED [facility] Last Admin: 04/03/18 06:40 Dose: 80 mls/hr Cefazolin Sodium/Dextrose 2 gm (/ Premix) 50 mls @ 100 mls/hr IV ONCALL ONE Stop: 04/02/18 11:59 Last Admin: 04/02/18 13:59 Dose: 100 mls/hr Potassium Acetate 20 meq/ (Sodium Chloride) 110 mls @ 55 mls/hr IV Q2H [facility] Stop: 04/02/18 11:59 Last Admin: 04/02/18 10:10 Dose: 55 mls/hr Magnesium Sulfate 2 gm/ Premix 50 mls @ 25 mls/hr IV Q6H [facility] Stop: 04/05/18 07:59 Last Admin: 04/03/18 12:11 Dose: 25 mls/hr Albumin Human (Albumin 25%) 25 gm in 100 mls @ 25 mls/hr IV ONETIME ONE Stop: 04/02/18 17:59 Last Admin: 04/02/18 15:30 Dose: 25 mls/hr Potassium Chloride 20 meq/Lidocaine HCl 2 ml/ Sodium Chloride 112 mls @ 56 mls/ hr IV Q2H [facility] Stop: 04/03/18 17:59 Last Admin: 04/03/18 17:04 Dose: 56 mls/hr Magnesium Sulfate 2 gm/ Premix 50 mls @ 25 mls/hr IV Q6H [facility] Stop: 04/08/18 03:59 Last Admin: 04/07/18 15:14 Dose: Not Given Potassium Phosphate 15 mmole/ (Sodium Chloride) 255 mls @ 128 mls/hr IV Q2H [facility] Stop: 04/06/18 13:59 Last Admin: 04/06/18 12:49 Dose: 128 mls/hr Dextrose/Lactated Ringer's (Dextrose 5%-Lactated Ringers) 1,000 mls @ 100 mls/ hr IV ASDIRECTED [facility] Last Admin: 04/07/18 08:44 Dose: 100 mls/hr Meropenem 500 mg/ Sodium (Chloride) 50 mls @ 100 mls/hr IV ONCALL ONE Stop: 04/07/18 11:59 Last Admin: 04/07/18 15:13 Dose: Not Given Linezolid (Zyvox) Confirm Administered Dose 300 mls @ as directed .ROUTE .STK- MED ONE Stop: 04/07/18 15:26 Lactated Ringer's (Ringers, Lactated) Confirm Administered Dose 1,000 mls @ as directed .ROUTE .STK-MED ONE Stop: 04/07/18 15:35 Linezolid 600 mg/ Premix 300 mls @ 300 mls/hr IV ONETIME ONE Stop: 04/07/18 17:29 Last Admin: 04/07/18 16:25 Dose: 300 mls/hr Dextrose/Lactated Ringer's (Dextrose 5%-Lactated Ringers) 1,000 mls @ 175 mls/ hr IV ASDIRECTED [facility] Last Admin: 04/08/18 06:21 Dose: 175 mls/hr Linezolid 600 mg/ Premix 300 mls @ 300 mls/hr IV Q12H [facility] Last Admin: 04/10/18 03:46 Dose: 300 mls/hr Meropenem 500 mg/ Sodium (Chloride) 50 mls @ 100 mls/hr IV Q8H [facility] Last Admin: 04/11/18 06:23 Dose: 100 mls/hr Magnesium Sulfate 2 gm/ Premix 50 mls @ 25 mls/hr IV Q6H [facility] Stop: 04/09/18 13:59 Last Admin: 04/09/18 11:40 Dose: 25 mls/hr Dextrose/Lactated Ringer's (Dextrose 5%-Lactated Ringers) 1,000 mls @ 100 drops /hr IV ASDIRECTED [facility] Last Admin: 04/09/18 11:39 Dose: 100 drops/hr Dextrose/Lactated Ringer's (Dextrose 5%-Lactated Ringers) 1,000 mls @ 25 mls/ hr IV ASDIRECTED [facility] Potassium Phosphate 22.5 mmole (/ Sodium Chloride) 257.5 mls @ 86 mls/hr IV Q3H [facility] Stop: 04/10/18 15:59 Last Admin: 04/10/18 14:47 Dose: 86 mls/hr Calcium Gluconate 1 gm/ Sodium (Chloride) 110 mls @ 100 mls/hr IV Q6H [facility] Stop: 04/10/18 18:05 Last Admin: 04/10/18 16:21 Dose: 100 mls/hr Insulin Human Lispro (Humalog) 0 unit SUBCUT Q6H [facility]; Protocol Last Admin: 03/30/18 16:32 Dose: Not Given Insulin Human Lispro (Humalog) 0 unit SUBCUT Q6H [facility]; Protocol Last Admin: 03/31/18 03:52 Dose: Not Given Insulin Human Lispro (Humalog) 0 unit SUBCUT QIDACANDBED [facility]; Protocol Stop: 04/12/18 11:01 Last Admin: 03/31/18 13:17 Dose: Not Given Lidocaine/Epinephrine (Xylocaine 1% With Epinephrine 1:100,000) Confirm Administered Dose 50 ml .ROUTE .STK-MED ONE Stop: 04/07/18 12:06 Linezolid (Zyvox) 600 mg IRR .STK-MED ONE Stop: 04/07/18 16:06 Last Admin: 04/07/18 16:05 Dose: 600 mg Loperamide HCl (Imodium) 2 mg PO ASDIRECTED PRN PRN Reason: DIARRHEA Melatonin (Melatonin) 9 mg PO BEDTIME [facility] Last Admin: 04/06/18 21:40 Dose: 9 mg Meropenem (Merrem) Confirm Administered Dose 500 mg .ROUTE .STK-MED ONE Stop: 03/18/18 19:40 Last Admin: 03/18/18 20:19 Dose: Not Given Meropenem (Merrem) Confirm Administered Dose 500 mg .ROUTE .STK-MED ONE Stop: 04/07/18 14:38 Last Admin: 04/07/18 16:00 Dose: 500 mg Meropenem (Merrem) Confirm Administered Dose 500 mg .ROUTE .STK-MED ONE Stop: 04/07/18 15:08 Last Admin: 04/07/18 16:05 Dose: 500 mg Midazolam HCl (Versed 1 Mg/Ml) Confirm Administered Dose 2 mg .ROUTE .STK-MED ONE Stop: 04/02/18 12:59 Morphine Sulfate (Morphine) 4 mg IVPUSH Q2H PRN PRN Reason: Pain Last Admin: 03/29/18 07:34 Dose: 4 mg Morphine Sulfate (Morphine Front End Java Developer 150 Mg In 30 Ml) 0 mg IV ASDIRECTED PRN; Protocol PRN Reason: Pain Last Admin: 04/07/18 10:00 Dose: 150 mg Neostigmine Methylsulfate (Neostigmine) Confirm Administered Dose 5 mg .ROUTE .STK-MED ONE Stop: 03/18/18 19:48 Neostigmine Methylsulfate (Neostigmine) Confirm Administered Dose 5 mg .ROUTE .STK-MED ONE Stop: 04/07/18 10:56 Non-Formulary Medication (Total Parenteral Nutrition, Central) 1,000 ml .XX .Continue Order [facility]; Protocol Stop: 03/24/18 11:31 Non-Formulary Medication (Total Parenteral Nutrition, Central) 1,000 ml .XX .Continue Order [facility]; Protocol Non-Formulary Medication (Total Parenteral Nutrition, Central) 1,000 ml .XX .Continue Order [facility]; Protocol Non-Formulary Medication (Total Parenteral Nutrition, Central) 1,000 ml .XX .Continue Order [facility]; Protocol Stop: 03/28/18 12:00 Non-Formulary Medication (Total Parenteral Nutrition, Central) 1,000 ml .XX .Continue Order [facility] Stop: 04/08/18 08:01 Non-Formulary Medication (Total Parenteral Nutrition, Central) 1,000 ml .XX .Continue Order [facility] Stop: 04/09/18 10:00 Non-Formulary Medication (Total Parenteral Nutrition, Central) 1,000 ml .XX .Continue Order [facility] Stop: 04/10/18 10:00 Non-Formulary Medication (Total Parenteral Nutrition, Central) 1,000 ml .XX .Continue Order [facility] Stop: 04/11/18 10:00 Nystatin (Mycostatin) 5 ml PO QID [facility] Last Admin: 04/04/18 15:25 Dose: 5 ml Ondansetron HCl (Zofran) 4 mg IVPUSH ONETIME ONE Stop: 03/18/18 18:18 Last Admin: 03/18/18 18:27 Dose: 4 mg Ondansetron HCl (Zofran) Confirm Administered Dose 4 mg .ROUTE .STK-MED ONE Stop: 03/18/18 19:48 Ondansetron HCl (Zofran) Confirm Administered Dose 4 mg .ROUTE .STK-MED ONE Stop: 04/07/18 10:56 Oxycodone HCl (Oxycodone) 5 mg PO Q4H PRN PRN Reason: Pain (moderate 4-6) Last Admin: 04/06/18 05:19 Dose: 5 mg Pantoprazole Sodium (Protonix Iv) 40 mg IVPUSH DAILY [facility] Last Admin: 03/28/18 08:34 Dose: 40 mg Pantoprazole Sodium (Protonix) 40 mg PO ACBREAKFAST [facility] Last Admin: 04/07/18 08:10 Dose: 40 mg Phenylephrine HCl (Isaías-Synephrine) Confirm Administered Dose 10 mg .ROUTE .STK- MED ONE Stop: 03/18/18 20:05 Potassium Chloride (Klor-Con M20) 40 meq PO ONETIME ONE Stop: 04/03/18 13:16 Last Admin: 04/03/18 14:33 Dose: 40 meq Potassium Chloride (Klor-Con M20) 40 meq PO ONETIME ONE Stop: 04/03/18 17:01 Last Admin: 04/03/18 20:55 Dose: 40 meq Potassium Chloride (Klor-Con M20) 40 meq PO ONETIME ONE Stop: 04/04/18 09:01 Last Admin: 04/04/18 09:34 Dose: 40 meq Potassium Chloride (Klor-Con M20) 40 meq PO ONETIME ONE Stop: 04/04/18 17:01 Last Admin: 04/04/18 17:08 Dose: 40 meq Potassium Chloride (Klor-Con M20) 40 meq PO ONETIME ONE Stop: 04/05/18 09:01 Last Admin: 04/05/18 10:14 Dose: 40 meq Potassium Chloride (Klor-Con M20) 40 meq PO ONETIME ONE Stop: 04/05/18 17:01 Last Admin: 04/05/18 18:00 Dose: 40 meq Prednisone (Prednisone) 20 mg PO WITHBREAKFAST [facility] Last Admin: 03/30/18 08:59 Dose: 20 mg Propofol (Diprivan 20 Ml) Confirm Administered Dose 200 mg .ROUTE .STK-MED ONE Stop: 03/18/18 19:48 Propofol (Diprivan 20 Ml) Confirm Administered Dose 200 mg .ROUTE .STK-MED ONE Stop: 04/02/18 12:59 Propofol (Diprivan 20 Ml) Confirm Administered Dose 200 mg .ROUTE .STK-MED ONE Stop: 04/07/18 10:56 Rocuronium Misenheimer (Zemuron) Confirm Administered Dose 50 mg .ROUTE .STK-MED ONE Stop: 03/18/18 19:48 Rocuronium Misenheimer (Zemuron) Confirm Administered Dose 50 mg .ROUTE .STK-MED ONE Stop: 04/07/18 10:56 Succinylcholine Chloride (Quelicin) Confirm Administered Dose 200 mg .ROUTE .STK -MED ONE Stop: 03/18/18 19:48 Vancomycin HCl (Vancomycin) 1 gm IV .PHARMACY TO DOSE [facility] Stop: 03/21/18 16:00 - Exam Quality Assessment: Central Line/PICC, Urine Catheter, DVT Prophylaxis Lungs: Clear to Auscultation, Normal Respiratory Effort Cardiovascular: Regular Rate, Regular Rhythm, No Murmurs GI/Abdominal Exam: Soft, No Organomegaly, Tender. No: Distended, Guarding, Rigid, Rebound Extremities: Non-Tender, No Pedal Edema - Problem List Review Problem List Initiated/Reviewed/Updated: Yes - My Orders Last 24 Hours: My Active Orders 04/11/18 11:08 Furosemide [Lasix] 40 mg IVPUSH NOW ONE 04/11/18 11:15 Ciprofloxacin in D5W [Cipro in D5W 400 MG/200 ML] 400 mg Premix Bag 1 bag IV Q12H Doxycycline [Vibramycin] 100 mg Sodium Chloride 0.9% [Normal Saline] 100 ml IV Q12HR Lactobacillus Rhamnosus GG [Culturelle] 1 cap PO BID - Plan Plan:: ASSESSMENT AND PLAN WOUND DEHISCENCE WITH UNDERLYING ABSCESS - status post exploratory laparotomy . Pain is better controlled today. Tolerating antibiotics. Cultures from peritoneal fluid and blood culture growing Escherichia coli, as well as some gram-positive organisms -Discontinue meropenem -Ciprofloxacin 400 mg IV every 12 hours -[place] I clean 100 mg IV every 12 hours -Surgical follow-up per surgery team SIGMOID COLON PERFORATION RESULTING IN ACUTE ABDOMEN AND SEPTIC SHOCK - postop course complicated by wound dehiscence as above. He is receiving nutritional support via TPN. -Continue TPN initiated today -Nothing by mouth at this time -Post operative surgical care per surgical team -Pain control -Saline lock IV SEPTIC SHOCK - resolved ACUTE HYPOXIC RESPIRATORY FAILURE - respiratory status seems to be slowly declining again and I suspect is related to excess fluid. He has been positive for the last several days. He is receiving a unit of blood today as well. -Coughing, deep breathing and suctioning as able -Furosemide daily COPD - [id number] smoking history but no evidence for exacerbation at this time. -Nebulized albuterol as needed -Vigorous pulmonary toilet during the postoperative period HISTORY OF LUNG AND PROSTATE CARCINOMA - lung cancer felt to be stable, had been receiving treatment for management of prostate carcinoma prior to admission MAINTENANCE ISSUES -DVT prophylaxis; SCUDs -GI prophylaxis; Protonix 40 mg daily -Sorto catheter; placed at the time of surgery for strict intake and output monitoring -Nutrition; nothing by mouth DISPOSITION - anticipate discharge to snf after the hospital stay.
[2018-04-11] MEDS ORDERED: Furosemide 40 MG/4 ML VIAL IVPUSH ONE (11:30)
[2018-04-11] MEDS ORDERED: hydrOXYzine HCl 100 MG/2 ML SDV IM PRN (12:07)
[2018-04-11] MEDS: Lactobacillus Rhamnosus GG (Probiotic) Cap PO SCH ×3 (12:58→21:26)
[2018-04-11] MEDS: Ciprofloxacin in D5W 400 MG in Premix Bag 1 BAG IV SCH ×4 (12:58→23:07)
[2018-04-11] MEDS: Acetaminophen 1,000 MG in Premix Bag 1 BAG IV SCH ×2 (12:58→18:12)
[2018-04-11] MEDS: traMADol 50 MG Tab PO PRN (13:01)
[2018-04-11] MEDS: Doxycycline 100 MG in Sodium Chloride 0.9% 100 ML IV SCH (13:40)
[2018-04-12] MEDS: Acetaminophen 1,000 MG in Premix Bag 1 BAG IV SCH ×2 (00:41→05:47)
[2018-04-12] MEDS: Doxycycline 100 MG in Sodium Chloride 0.9% 100 ML IV SCH ×2 (00:43→14:18)
[2018-04-12] MEDS: 1: AA 5%/Calcium/D15W/Lytes 1,000 ML with MVI, Adult with Vitamin K 10 ML, Chromium/Copp IV SCH ×6 (02:00→14:18)
[2018-04-12] MEDS: traMADol 50 MG Tab PO PRN ×4 (04:25→23:37)
[2018-04-12] MEDS: Pantoprazole 40 MG Vial IV SCH (05:43)
[2018-04-12] MEDS: Albuterol/Ipratropium 3.0-0.5 MG/3 ML Neb Soln NEB SCH ×4 (07:24→20:48)
[2018-04-12] MEDS ORDERED: Potassium Chloride 20 MEQ, Lidocaine 1% 2 ML in Sodium Chloride 0.9% 100 ML IV SCH (08:00)
[2018-04-12] MEDS ORDERED: Central Total Parenteral Nutrition Bag SCH (08:00)
[2018-04-12] MEDS ORDERED: Potassium Chloride Riders 40 MEQ in Premix Bag 1 BAG IV ONE ×2 (08:20→17:00)
[2018-04-12] MEDS: Potassium Chloride 20 MEQ in Premix Bag 1 BAG IV SCH ×3 (09:28→13:29)
--- NOTE | 2018-04-12 10:42 | PN ---
DATE OF SERVICE: 04/12/2018 SUBJECTIVE: Kodak had a loose bowel movement in colostomy of 200 mL. Sorto catheter. Oral intake, sips of water. TPN is running without difficulty. G-tube put out 250 mL. It has been clamped 6 hours, unclamped 1 hour. There was some question if it had been plugged. Nursing staff reported that pills and sips of water go down well. He is having difficulty with more of strength in his tongue. REVIEW OF SYSTEMS: Remainder of review of systems negative for any pertinent positives and negatives. OBJECTIVE: GENERAL: Kodak Silva is a 77-year-old male. He looks much improved today. He is quite talkative, more awake. VITAL SIGNS: TPR is 98.4, 82, 16; blood pressure 138/67. HEENT: Negative. NECK: Supple. HEART: Regular rate and rhythm. LUNGS: Decreased breath sounds. ABDOMEN: Wound VAC on, colostomy intact. EXTREMITIES: Without peripheral edema. ASSESSMENT: 1. Insertion of left subclavian triple lumen. a. Exploratory laparotomy, drainage of intraabdominal abscess. b. Small-bowel resection. c. Small bowel strictureplasty. d. Placement of Vicryl mesh. 2. Closure of fascial dehiscence with evisceration of intraabdominal abscess with focal small-bowel stricture, focal areas of small bowel deserosalization, and insertion of subclavian triple lumen. Date of surgery 04/07/2017. Surgeon, Fredi Linn MD. PLAN: 1. Continue TPN, same rate and content. 2. Potassium chloride 60 mEq IV today in 3 divided doses with lidocaine. 3. Tylenol solution 1000 mg p.o. q.6 hours either orally or through G-tube. 4. Thickened liquids, make sure patient is sitting upright. 5. Communication order. Continue to clamp 6 hours and unclamp 1 hour G-tube but give 50 mL of water before each clamping to avoid plugging up. 6. Check CBC, CMP, phos, and BNP in a.m. 7. Continue with Sorto catheter because of critical ill patient and the need for accurate intake and output. Good pulmonary toilet. We will evaluate p.r.n. or in a.m. Rula Morley PA-C /[id number]
[2018-04-12] MEDS: Lactobacillus Rhamnosus GG (Probiotic) Cap PO SCH ×2 (10:50→20:48)
[2018-04-12] MEDS: Ciprofloxacin in D5W 400 MG in Premix Bag 1 BAG IV SCH ×4 (10:55→23:28)
--- NOTE | 2018-04-12 11:14 | PCM.PN ---
- General Info Date of Service: 04/12/18 Subjective Update: Mr. Silva appears to be slowly improving on a daily basis. More alert and interactive the last 2 days than he had been previously. Seems to be slowly regaining strength and tolerating a full liquid diet. Functional Status: Reports: Pain Controlled, Tolerating Diet - Review of Systems General: Reports: Weakness. Denies: Fever, Chills Pulmonary: Reports: No Symptoms Cardiovascular: Reports: No Symptoms Gastrointestinal: Reports: Abdominal Pain, Decreased Appetite. Denies: Difficulty Swallowing, Hematochezia, Melena, Nausea, Vomiting - Patient Data Vitals - Most Recent: Last Vital Signs Temp 98.4 F 04/12/18 07:49 Pulse 82 04/12/18 07:49 Resp 16 04/12/18 07:49 BP 138/67 04/12/18 07:49 Pulse Ox 93 L 04/12/18 07:49 Weight - Most Recent: 164 lb 3.91 oz I&O - Last 24 Hours: Intake & Output 04/11/18 04/12/18 04/12/18 22:59 06:59 14:59 Intake Total 2074 1333 200 Output Total 1608 1380 Balance 466 -47 200 Lab Results Last 24 Hours: Laboratory Results - last 24 hr 04/12/18 04/12/18 Range/Units 04:53 04:53 WBC 14.3 H (4.5-11.0) K/uL RBC 3.23 L (4.30-5.90) M/uL Hgb 9.5 L (12.0-15.0) g/dL Hct 30.0 L (40.0-54.0) % MCV 93 (80-98) fL MCH 29 (27-31) pg MCHC 32 (32-36) % Plt Count 206 (150-400) K/uL Sodium 142 (140-148) mmol/L Potassium 3.4 L (3.6-5.2) mmol/L Chloride 105 (100-108) mmol/L Carbon Dioxide 31 (21-32) mmol/L Anion Gap 9.4 (5.0-14.0) mmol/L BUN 37 H (7-18) mg/dL Creatinine 1.1 (0.8-1.3) mg/dL Est Cr Clr Drug Dosing 54.11 mL/min Estimated GFR (MDRD) > 60 (>60) Glucose 129 H (74-106) mg/dL Calcium 7.6 L (8.5-10.1) mg/dL Phosphorus 3.2 (2.5-4.9) mg/dL Magnesium 2.1 (1.8-2.4) mg/dL Total Bilirubin 1.3 H (0.2-1.0) mg/dL AST 82 H D (15-37) U/L ALT 61 D (12-78) U/L Alkaline Phosphatase 109 (46-116) U/L NT-Pro-B Natriuret Pep 553 H (5-450) pg/mL Total Protein 5.4 L (6.4-8.2) g/dL Albumin 2.5 L (3.4-5.0) g/dL Globulin 2.9 (2.3-3.5) g/dL Albumin/Globulin Ratio 0.9 L (1.2-2.2) Dante Results Last 24 Hours: Microbiology 04/07/18 15:09 Gram Stain - Final Abdomen - Abscess Wound Culture - Final Ralstonia Pickettii Staphylococcus Haemolyticus Staphylococcus Epidermidis Anaerobic Culture - Final NO GROWTH AFTER 3 DAYS Med Orders - Current: Current Medications Acetaminophen (Tylenol) 1,000 mg GTUBE Q6H [facility] Albuterol (Proventil Neb Soln) 2.5 mg NEB Q4H PRN PRN Reason: Dyspnea Last Admin: 04/05/18 18:03 Dose: 2.5 mg Albuterol/Ipratropium (Duoneb 3.0-0.5 Mg/3 Ml) 3 ml NEB QIDRT [facility]ARRA Last Admin: 04/12/18 10:31 Dose: 3 ml Dimethicone/Zinc Oxide (Rash Relief-Zinc Oxide [place]) 0 gm TOP ASDIRECTED PRN PRN Reason: Rash Last Admin: 03/28/18 16:55 Dose: 1 spray Diphenhydramine HCl (Benadryl) 25 mg IVPUSH Q6H PRN PRN Reason: Itching Last Admin: 04/09/18 12:19 Dose: 25 mg Heparin Sodium (Porcine) (Heparin Lock Flush 100 Units/Ml) 500 units FLUSH ASDIRECTED PRN PRN Reason: IV Use Last Admin: 04/11/18 14:38 Dose: 500 units Hydroxyzine HCl (Vistaril) 50 mg IM Q6H PRN PRN Reason: Pain Multivitamins/Minerals 10 ml/Chromium/Copper/Manganese/Seleni/Zn 1 ml/ Amino Ac/ Electrol/Dextrose/Calcium 1,011 mls @ 82 mls/hr IV .BY DURATION [facility], [facility] Last Admin: 04/11/18 12:58 Dose: 82 mls/hr Amino Ac/Electrol/Dextrose/Calcium (Clinimix E 5/15) 1,000 mls @ 82 mls/hr IV .BY DURATION [facility], [facility]–1983 Last Admin: 04/12/18 02:00 Dose: 82 mls/hr Albumin Human (Albumin 25%) 25 gm in 100 mls @ 25 mls/hr IV Q24H [facility], [facility]1983 Stop: 04/12/18 13:59 Last Admin: 04/12/18 09:28 Dose: 25 mls/hr Albumin Human (Albumin 25%) 25 gm in 100 mls @ 25 mls/hr IV Q24H [facility], [facility]1983 Stop: 04/12/18 17:59 Last Admin: 04/11/18 13:30 Dose: 25 mls/hr Sodium Chloride (Normal Saline) 1,000 mls @ 0 mls/hr IV ASDIRECTED [facility], [facility]–1983 Doxycycline Hyclate 100 mg/ (Sodium Chloride) 100 mls @ 100 mls/hr IV Q12H [facility], [facility] Last Admin: 04/12/18 00:43 Dose: 100 mls/hr Ciprofloxacin/Dextrose 400 mg/ (Premix) 200 mls @ 200 mls/hr IV Q12H [facility], [facility] Last Admin: 04/12/18 10:55 Dose: 200 mls/hr Potassium Chloride 20 meq/ (Premix) 100 mls @ 50 mls/hr IV Q2H [facility], [facility]1983 Stop: 04/12/18 14:59 Last Admin: 04/12/18 09:28 Dose: 50 mls/hr Lactobacillus Rhamnosus (Culturelle) 1 cap PO BID [facility], [facility] Last Admin: 04/12/18 10:50 Dose: 1 cap Naloxone HCl (Narcan) 0.1 mg IV ASDIRECTED PRN PRN Reason: decreased respiratory rate Non-Formulary Medication (Total Parenteral Nutrition, Central) 1,000 ml .XX .Continue Order [facility], [facility] Stop: 04/12/18 12:00 Pantoprazole Sodium (Protonix Iv) 40 mg IV Q24H [facility] Last Admin: 04/12/18 05:43 Dose: 40 mg Tramadol HCl (Ultram) 25 - 50 mg PO Q6H PRN PRN Reason: Pain Last Admin: 04/12/18 10:47 Dose: 50 mg Discontinued Medications Acetaminophen (Tylenol) 650 mg RECTAL Q4H PRN PRN Reason: Fever Acetaminophen (Tylenol) 650 mg PO Q4H PRN PRN Reason: Pain/Fever Last Admin: 04/05/18 20:14 Dose: 650 mg Albuterol/Ipratropium (Duoneb 3.0-0.5 Mg/3 Ml) 3 ml NEB Q4H PRN PRN Reason: Dyspnea Albuterol/Ipratropium (Duoneb 3.0-0.5 Mg/3 Ml) 3 ml NEB ONETIME ONE Stop: 04/07/18 10:31 Last Admin: 04/07/18 10:26 Dose: Not Given Bupivacaine HCl (Marcaine 0.5%) Confirm Administered Dose 50 ml .ROUTE .STK-MED ONE Stop: 04/07/18 12:06 Ropivacaine 34 ml/Dexamethasone 8 mg/Epinephrine HCl 0.4 mg/ Sodium Chloride 43.6 ml 0 ml NERVRT ASDIRECTED [facility], [facility] Last Admin: 04/07/18 16:01 Dose: 80 syringe Dexamethasone (Dexamethasone) Confirm Administered Dose 4 mg .ROUTE .STK-MED ONE Stop: 03/18/18 19:48 Dexamethasone (Dexamethasone) Confirm Administered Dose 4 mg .ROUTE .STK-MED ONE Stop: 04/07/18 10:56 Epinephrine HCl (Adrenalin) Confirm Administered Dose 1 mg .ROUTE .STK-MED ONE Stop: 03/18/18 21:07 Erythromycin Ethylsuccinate (Eryped 400) 125 mg PO Q6H [facility] Last Admin: 04/07/18 15:14 Dose: Not Given Fentanyl (Sublimaze) Confirm Administered Dose 250 mcg .ROUTE .STK-MED ONE Stop: 03/18/18 19:48 Fentanyl (Sublimaze) Confirm Administered Dose 250 mcg .ROUTE .STK-MED ONE Stop: 04/02/18 12:59 Fentanyl (Sublimaze) Confirm Administered Dose 250 mcg .ROUTE .STK-MED ONE Stop: 04/07/18 10:56 Furosemide (Lasix) 20 mg IVPUSH ONETIME ONE Stop: 03/23/18 09:46 Last Admin: 03/23/18 10:18 Dose: 20 mg Furosemide (Lasix) 20 mg IVPUSH NOW ONE Stop: 03/25/18 10:01 Last Admin: 03/25/18 10:17 Dose: 20 mg Furosemide (Lasix) 20 mg IVPUSH ONETIME ONE Stop: 03/26/18 09:16 Last Admin: 03/26/18 09:10 Dose: 20 mg Furosemide (Lasix) 20 mg IVPUSH ONETIME ONE Stop: 03/26/18 16:01 Last Admin: 03/26/18 18:28 Dose: Not Given Furosemide (Lasix) 20 mg IVPUSH NOW ONE Stop: 03/27/18 10:01 Last Admin: 03/27/18 10:26 Dose: 20 mg Furosemide (Lasix) 20 mg IVPUSH ONETIME ONE Stop: 03/30/18 13:11 Last Admin: 03/30/18 13:36 Dose: 20 mg Furosemide (Lasix) 20 mg IVPUSH NOW ONE Stop: 03/31/18 11:55 Last Admin: 03/31/18 13:04 Dose: 20 mg Furosemide (Lasix) 20 mg IVPUSH NOW ONE Stop: 04/01/18 12:05 Last Admin: 04/01/18 12:43 Dose: 20 mg Furosemide (Lasix) 20 mg IVPUSH NOW ONE Stop: 04/02/18 15:46 Last Admin: 04/02/18 15:53 Dose: 20 mg Furosemide (Lasix) 40 mg IVPUSH NOW ONE Stop: 04/03/18 09:01 Last Admin: 04/03/18 09:45 Dose: 40 mg Furosemide (Lasix) 40 mg IVPUSH NOW ONE Stop: 04/04/18 15:31 Last Admin: 04/04/18 15:55 Dose: 40 mg Furosemide (Lasix) 40 mg IVPUSH NOW ONE Stop: 04/05/18 09:01 Last Admin: 04/05/18 10:15 Dose: 40 mg Furosemide (Lasix) 40 mg IVPUSH ONETIME ONE Stop: 04/08/18 12:01 Last Admin: 04/08/18 11:01 Dose: 40 mg Furosemide (Lasix) 40 mg IVPUSH ONETIME STA Stop: 04/09/18 06:48 Last Admin: 04/09/18 10:16 Dose: Not Given Furosemide (Lasix) 20 mg IVPUSH ONETIME ONE Stop: 04/09/18 12:01 Last Admin: 04/09/18 13:43 Dose: Not Given Furosemide (Lasix) 40 mg IVPUSH ONETIME STA Stop: 04/09/18 10:08 Last Admin: 04/09/18 10:09 Dose: 40 mg Furosemide (Lasix) Confirm Administered Dose 40 mg .ROUTE .STK-MED ONE Stop: 04/09/18 10:08 Last Admin: 04/09/18 10:16 Dose: 40 mg Furosemide (Lasix) 40 mg IVPUSH ONETIME ONE Stop: 04/09/18 16:01 Last Admin: 04/09/18 15:54 Dose: 40 mg Furosemide (Lasix) 40 mg IVPUSH ONETIME ONE Stop: 04/10/18 12:01 Last Admin: 04/10/18 14:03 Dose: 40 mg Furosemide (Lasix) 20 mg IVPUSH ONETIME ONE Stop: 04/10/18 20:01 Last Admin: 04/10/18 21:10 Dose: 20 mg Furosemide (Lasix) 40 mg IVPUSH NOW ONE Stop: 04/11/18 11:31 Last Admin: 04/11/18 12:58 Dose: 40 mg Glycopyrrolate (Robinul) Confirm Administered Dose 1 mg .ROUTE .STK-MED ONE Stop: 03/18/18 19:48 Glycopyrrolate (Robinul) Confirm Administered Dose 1 mg .ROUTE .STK-MED ONE Stop: 04/07/18 10:56 Heparin Sodium (Porcine) (Heparin Sodium) Confirm Administered Dose 5,000 units .ROUTE .STK-MED ONE Stop: 03/18/18 19:51 Heparin Sodium (Porcine) (Heparin Lock Flush 100 Units/Ml) Confirm Administered Dose 500 units .ROUTE .STK-MED ONE Stop: 03/22/18 12:17 Last Admin: 03/22/18 12:30 Dose: Not Given Heparin Sodium (Porcine) (Heparin Sodium) Confirm Administered Dose 5,000 units .ROUTE .STK-MED ONE Stop: 03/24/18 19:52 Last Admin: 03/24/18 20:33 Dose: 5,000 units Heparin Sodium (Porcine) (Heparin Lock Flush 100 Units/Ml) Confirm Administered Dose 1,000 units .ROUTE .STK-MED ONE Stop: 04/07/18 12:06 Last Admin: 04/07/18 14:30 Dose: 500 units Hydrocortisone Sodium Succinate (Solu-Cortef) 100 mg IVPUSH Q12H [facility], [facility] Last Admin: 03/28/18 20:15 Dose: 100 mg Hydrocortisone Sodium Succinate (Solu-Cortef) 100 mg IVPUSH DAILY [facility], [facility] Last Admin: 03/30/18 13:39 Dose: Not Given Hydromorphone HCl (Dilaudid) 0.5 mg IVPUSH ONETIME ONE Stop: 03/18/18 17:43 Last Admin: 03/18/18 17:47 Dose: 0.5 mg Hydromorphone HCl (Dilaudid) 1 mg IVPUSH ONETIME ONE Stop: 03/18/18 18:18 Last Admin: 03/18/18 18:27 Dose: 1 mg Hydroxyzine HCl (Vistaril) 100 mg IM Q6H PRN PRN Reason: Pain Last Admin: 04/11/18 08:49 Dose: 100 mg Sodium Chloride (Normal Saline) 1,000 mls @ 1,000 mls/hr IV ASDIRECTED [facility], [facility]–1983 Last Admin: 03/18/18 17:47 Dose: 1,000 mls/hr Sodium Chloride (Normal Saline) 1,000 mls @ 999 mls/hr IV ASDIRECTED [facility], [facility]1983 Last Admin: 03/18/18 19:31 Dose: 999 mls/hr Meropenem 500 mg/ Sodium (Chloride) 50 mls @ 100 mls/hr IV ONETIME ONE Stop: 03/18/18 19:09 Last Admin: 03/18/18 19:01 Dose: 100 mls/hr Sodium Chloride (Normal Saline) Confirm Administered Dose 50 mls @ as directed .ROUTE .STK-MED ONE Stop: 03/18/18 19:40 Last Admin: 03/18/18 20:19 Dose: Not Given Aztreonam 2 gm/ Sodium (Chloride) 50 mls @ 100 mls/hr IV ONETIME ONE Stop: 03/18/18 20:01 Last Admin: 03/18/18 20:44 Dose: 100 mls/hr Meropenem 500 mg/ Sodium (Chloride) 50 mls @ 100 mls/hr IV ONETIME ONE Stop: 03/18/18 20:00 Last Admin: 03/18/18 19:40 Dose: 100 mls/hr Sodium Chloride (Normal Saline) Confirm Administered Dose 250 mls @ as directed .ROUTE .[facility] ONE Stop: 03/18/18 19:59 Lactated Ringer's (Ringers, Lactated) Confirm Administered Dose 1,000 mls @ as directed .ROUTE .[facility] ONE Stop: 03/18/18 19:59 Sodium Chloride (Normal Saline) Confirm Administered Dose 500 mls @ as directed .ROUTE .[facility] ONE Stop: 03/18/18 19:59 Norepinephrine Bitartrate 8 mg (/ Dextrose/Water) 258 mls @ 3.87 mls/hr IV TITRATE [facility]; Protocol Last Admin: 03/19/18 11:45 Dose: 12 mcg/min, 23.22 mls/hr Lactated Ringer's (Ringers, Lactated) Confirm Administered Dose 1,000 mls @ as directed .ROUTE .[facility] ONE Stop: 03/18/18 21:42 Propofol (Diprivan 100 Ml) 100 mls @ 2.082 mls/hr IV TITRATE [facility]; Protocol Last Titration: 03/27/18 06:35 Dose: 10 mcg/kg/min, 4.164 mls/hr Aztreonam 1 gm/ Sodium (Chloride) 50 mls @ 100 mls/hr IV Q8H [facility] Last Admin: 03/19/18 05:29 Dose: 100 mls/hr Potassium Chloride/Dextrose/Sod Cl (D5 1/2 Ns W/ 20 Meq/L Kcl) 1,000 mls @ 150 mls/hr IV ASDIRECTED [facility] Last Admin: 03/18/18 23:11 Dose: 150 mls/hr Meropenem 1 gm/ Sodium (Chloride) 50 mls @ 100 mls/hr IV Q12H [facility] Stop: 03/29/18 22:00 Last Admin: 03/29/18 20:10 Dose: 100 mls/hr Lactated Ringer's (Ringers, Lactated) 1,000 mls @ 500 mls/hr IV ASDIRECTED CIARRA Last Admin: 03/19/18 01:23 Dose: 500 mls/hr Vasopressin 100 units/ (Dextrose/Water) 255 mls @ 1.53 mls/hr IV TITRATE CI[facility]RA; Protocol Stop: 03/21/18 13:00 Last Titration: 03/21/18 11:03 Dose: 0.02 units/min, 3.06 mls/hr Lactated Ringer's (Ringers, Lactated) 1,000 mls @ 500 mls/hr IV BOLUS CIARRA Stop: 03/19/18 05:29 Last Admin: 03/19/18 04:02 Dose: 500 mls/hr Aztreonam/Dextrose 1 gm/ (Premix) 50 mls @ 100 mls/hr IV Q8H CI[facility] Last Admin: 03/28/18 05:26 Dose: 100 mls/hr Lactated Ringer's (Ringers, Lactated) 1,000 mls @ 500 mls/hr IV .[facility] ONE Stop: 03/19/18 14:59 Last Admin: 03/19/18 14:27 Dose: 500 mls/hr Lactated Ringer's (Ringers, Lactated) 1,000 mls @ 150 mls/hr IV ASDIRECTED CIARRA Last Admin: 03/21/18 11:53 Dose: 150 mls/hr Norepinephrine Bitartrate 8 mg (/ Dextrose/Water) 250 mls @ 3.75 mls/hr IV TITRATE CIARRA; Protocol Last Titration: 03/27/18 09:04 Dose: 4 mcg/min, 7.5 mls/hr Magnesium Sulfate 2 gm/ Premix 50 mls @ 25 mls/hr IV Q6H [facility] Stop: 03/20/18 17:59 Last Admin: 03/20/18 16:30 Dose: 25 mls/hr Vancomycin HCl 1.25 gm/ Sodium (Chloride) 250 mls @ 170 mls/hr IV Q24H [facility] Last Admin: 03/22/18 10:06 Dose: 170 mls/hr Vasopressin 40 units/ Dextrose (/Water) 100 mls @ 3 mls/hr IV TITRATE CIARRA; Protocol Last Titration: 03/23/18 01:00 Dose: 0 units/min, 0 mls/hr Potassium Chloride 20 meq/ (Premix) 100 mls @ 50 mls/hr IV Q2H [facility] Stop: 03/21/18 22:59 Last Admin: 03/21/18 22:20 Dose: 50 mls/hr Potassium Chloride 20 meq/ (Premix) 100 mls @ 50 mls/hr IV Q2H [facility] Stop: 03/22/18 12:59 Last Admin: 03/22/18 11:30 Dose: 50 mls/hr Potassium Chloride 20 meq/ (Premix) 100 mls @ 50 mls/hr IV Q2H [facility]1983 Stop: 03/22/18 17:29 Last Admin: 03/22/18 16:13 Dose: 50 mls/hr Potassium Chloride (Kcl 20 Meq In Water 100 Ml) 100 mls @ 50 mls/hr IV Q2H [facility]1983 Stop: 03/23/18 01:59 Last Admin: 03/23/18 00:53 Dose: 50 mls/hr Potassium Chloride 40 meq/ (Premix) 100 mls @ 25 mls/hr IV ONETIME ONE Stop: 03/23/18 14:29 Last Admin: 03/23/18 10:31 Dose: 25 mls/hr Vancomycin HCl 1.4 gm/ Sodium (Chloride) 250 mls @ 170 mls/hr IV Q24H [facility]1983 Last Admin: 03/24/18 11:13 Dose: 170 mls/hr Multivitamins/Minerals 10 ml/Chromium/Copper/Manganese/Seleni/Zn 1 ml/ Amino Ac/ Electrol/Dextrose/Calcium 1,011 mls @ 75 mls/hr IV .BY DURATION [facility], [facility]1983 Last Admin: 03/25/18 22:34 Dose: 75 mls/hr Amino Ac/Electrol/Dextrose/Calcium (Clinimix E 5/15) 1,000 mls @ 75 mls/hr IV .BY DURATION [facility], [facility]1983 Last Admin: 03/25/18 08:11 Dose: 75 mls/hr Vasopressin 100 units/ (Dextrose/Water) 255 mls @ 1.53 mls/hr IV TITRATE [facility], [facility]; Protocol Last Titration: 03/25/18 11:51 Dose: 0 units/min, 0 mls/hr Potassium Chloride 20 meq/ (Premix) 100 mls @ 50 mls/hr IV Q2H [facility]1983 Stop: 03/24/18 13:59 Last Admin: 03/24/18 12:13 Dose: 50 mls/hr Multivitamins/Minerals 10 ml/Chromium/Copper/Manganese/Seleni/Zn 1 ml/ Amino Ac/ Electrol/Dextrose/Calcium 1,011 mls @ 75 mls/hr IV .BY DURATION [facility], [facility]1983 Last Admin: 03/29/18 06:48 Dose: 75 mls/hr Amino Ac/Electrol/Dextrose/Calcium (Clinimix E 5/15) 1,000 mls @ 75 mls/hr IV .BY DURATION [facility], [facility]1983 Last Admin: 03/29/18 20:12 Dose: 75 mls/hr Heparin Sodium (Porcine) 5,000 (units/ Sodium Chloride) 501 mls @ 5 mls/hr IV ASDIRECTED [facility], [facility]1983 Last Admin: 03/27/18 12:50 Dose: 5 mls/hr Sodium Chloride (Normal Saline) 1,000 mls @ 50 mls/hr IV ASDIRECTED [facility]1983 Last Admin: 03/30/18 13:36 Dose: 50 mls/hr Dextrose/Sodium Chloride (Dextrose 5%-1/2 Ns) 1,000 mls @ 75 mls/hr IV ASDIRECTED [facility], [facility]1983 Last Admin: 03/31/18 23:53 Dose: 75 mls/hr Albumin Human (Albumin 25%) 25 gm in 100 mls @ 25 mls/hr IV Q24H [facility]1983 Stop: 04/02/18 12:59 Last Admin: 04/01/18 08:13 Dose: 25 mls/hr Potassium Phosphate 20 mmole/ (Sodium Chloride) 256.6667 mls @ 85 mls/hr IV Q3H [facility]1983 Stop: 04/01/18 18:59 Last Admin: 04/01/18 18:37 Dose: 85 mls/hr Dextrose/Sodium Chloride (Dextrose 5%-1/2 Ns) 1,000 mls @ 80 mls/hr IV ASDIRECTED [facility], [facility]1983 Last Admin: 04/03/18 06:40 Dose: 80 mls/hr Cefazolin Sodium/Dextrose 2 gm (/ Premix) 50 mls @ 100 mls/hr IV ONCALL ONE Stop: 04/02/18 11:59 Last Admin: 04/02/18 13:59 Dose: 100 mls/hr Potassium Acetate 20 meq/ (Sodium Chloride) 110 mls @ 55 mls/hr IV Q2H [facility]1983 Stop: 04/02/18 11:59 Last Admin: 04/02/18 10:10 Dose: 55 mls/hr Magnesium Sulfate 2 gm/ Premix 50 mls @ 25 mls/hr IV Q6H [facility]1983 Stop: 04/05/18 07:59 Last Admin: 04/03/18 12:11 Dose: 25 mls/hr Albumin Human (Albumin 25%) 25 gm in 100 mls @ 25 mls/hr IV ONETIME ONE Stop: 04/02/18 17:59 Last Admin: 04/02/18 15:30 Dose: 25 mls/hr Potassium Chloride 20 meq/Lidocaine HCl 2 ml/ Sodium Chloride 112 mls @ 56 mls/ hr IV Q2H [facility] Stop: 04/03/18 17:59 Last Admin: 04/03/18 17:04 Dose: 56 mls/hr Magnesium Sulfate 2 gm/ Premix 50 mls @ 25 mls/hr IV Q6H [facility]1983 Stop: 04/08/18 03:59 Last Admin: 04/07/18 15:14 Dose: Not Given Potassium Phosphate 15 mmole/ (Sodium Chloride) 255 mls @ 128 mls/hr IV Q2H [facility]1983 Stop: 04/06/18 13:59 Last Admin: 04/06/18 12:49 Dose: 128 mls/hr Dextrose/Lactated Ringer's (Dextrose 5%-Lactated Ringers) 1,000 mls @ 100 mls/ hr IV ASDIRECTED [facility] Last Admin: 04/07/18 08:44 Dose: 100 mls/hr Meropenem 500 mg/ Sodium (Chloride) 50 mls @ 100 mls/hr IV ONCALL ONE Stop: 04/07/18 11:59 Last Admin: 04/07/18 15:13 Dose: Not Given Linezolid (Zyvox) Confirm Administered Dose 300 mls @ as directed .ROUTE .STK- MED ONE Stop: 04/07/18 15:26 Lactated Ringer's (Ringers, Lactated) Confirm Administered Dose 1,000 mls @ as directed .ROUTE .STK-MED ONE Stop: 04/07/18 15:35 Linezolid 600 mg/ Premix 300 mls @ 300 mls/hr IV ONETIME ONE Stop: 04/07/18 17:29 Last Admin: 04/07/18 16:25 Dose: 300 mls/hr Dextrose/Lactated Ringer's (Dextrose 5%-Lactated Ringers) 1,000 mls @ 175 mls/ hr IV ASDIRECTED [facility] Last Admin: 04/08/18 06:21 Dose: 175 mls/hr Linezolid 600 mg/ Premix 300 mls @ 300 mls/hr IV Q12H [facility] Last Admin: 04/10/18 03:46 Dose: 300 mls/hr Meropenem 500 mg/ Sodium (Chloride) 50 mls @ 100 mls/hr IV Q8H [facility] Last Admin: 04/11/18 06:23 Dose: 100 mls/hr Magnesium Sulfate 2 gm/ Premix 50 mls @ 25 mls/hr IV Q6H [facility]1983 Stop: 04/09/18 13:59 Last Admin: 04/09/18 11:40 Dose: 25 mls/hr Dextrose/Lactated Ringer's (Dextrose 5%-Lactated Ringers) 1,000 mls @ 100 drops /hr IV ASDIRECTED [facility], [facility] Last Admin: 04/09/18 11:39 Dose: 100 drops/hr Dextrose/Lactated Ringer's (Dextrose 5%-Lactated Ringers) 1,000 mls @ 25 mls/ hr IV ASDIRECTED [facility]–1983 Potassium Phosphate 22.5 mmole (/ Sodium Chloride) 257.5 mls @ 86 mls/hr IV Q3H [facility]1983 Stop: 04/10/18 15:59 Last Admin: 04/10/18 14:47 Dose: 86 mls/hr Calcium Gluconate 1 gm/ Sodium (Chloride) 110 mls @ 100 mls/hr IV Q6H [facility]1983 Stop: 04/10/18 18:05 Last Admin: 04/10/18 16:21 Dose: 100 mls/hr Acetaminophen 1,000 mg/ Premix 100 mls @ 400 mls/hr IV Q6H [facility], [facility]–1983 Stop: 04/12/18 06:44 Last Admin: 04/12/18 05:47 Dose: 400 mls/hr Potassium Chloride 40 meq/ (Premix) 100 mls @ 25 mls/hr IV ONETIME ONE Stop: 04/12/18 12:19 Insulin Human Lispro (Humalog) 0 unit SUBCUT Q6H [facility], [facility]–1983; Protocol Last Admin: 03/30/18 16:32 Dose: Not Given Insulin Human Lispro (Humalog) 0 unit SUBCUT Q6H [facility], [facility]–1983; Protocol Last Admin: 03/31/18 03:52 Dose: Not Given Insulin Human Lispro (Humalog) 0 unit SUBCUT QIDACANDBED [facility], 1928–1983; Protocol Stop: 04/12/18 11:01 Last Admin: 03/31/18 13:17 Dose: Not Given Lidocaine/Epinephrine (Xylocaine 1% With Epinephrine 1:100,000) Confirm Administered Dose 50 ml .ROUTE .STK-MED ONE Stop: 04/07/18 12:06 Linezolid (Zyvox) 600 mg IRR .STK-MED ONE Stop: 04/07/18 16:06 Last Admin: 04/07/18 16:05 Dose: 600 mg Loperamide HCl (Imodium) 2 mg PO ASDIRECTED PRN PRN Reason: DIARRHEA Melatonin (Melatonin) 9 mg PO BEDTIME CIARRA Last Admin: 04/06/18 21:40 Dose: 9 mg Meropenem (Merrem) Confirm Administered Dose 500 mg .ROUTE .STK-MED ONE Stop: 03/18/18 19:40 Last Admin: 03/18/18 20:19 Dose: Not Given Meropenem (Merrem) Confirm Administered Dose 500 mg .ROUTE .STK-MED ONE Stop: 04/07/18 14:38 Last Admin: 04/07/18 16:00 Dose: 500 mg Meropenem (Merrem) Confirm Administered Dose 500 mg .ROUTE .STK-MED ONE Stop: 04/07/18 15:08 Last Admin: 04/07/18 16:05 Dose: 500 mg Midazolam HCl (Versed 1 Mg/Ml) Confirm Administered Dose 2 mg .ROUTE .STK-MED ONE Stop: 04/02/18 12:59 Morphine Sulfate (Morphine) 4 mg IVPUSH Q2H PRN PRN Reason: Pain Last Admin: 03/29/18 07:34 Dose: 4 mg Morphine Sulfate (Morphine Electrical [employer] Instrumentation [employer]ic 150 Mg In 30 Ml) 0 mg IV ASDIRECTED PRN; Protocol PRN Reason: Pain Last Admin: 04/07/18 10:00 Dose: 150 mg Morphine Sulfate (Morphine Electrical And Instrumentation Mechanic 150 Mg In 30 Ml) 0 mg IV ASDIRECTED PRN; Protocol PRN Reason: Pain Neostigmine Methylsulfate (Neostigmine) Confirm Administered Dose 5 mg .ROUTE .STK-MED ONE Stop: 03/18/18 19:48 Neostigmine Methylsulfate (Neostigmine) Confirm Administered Dose 5 mg .ROUTE .STK-MED ONE Stop: 04/07/18 10:56 Non-Formulary Medication (Total Parenteral Nutrition, Central) 1,000 ml .XX .Continue Order CIARRA; Protocol Stop: 03/24/18 11:31 Non-Formulary Medication (Total Parenteral Nutrition, Central) 1,000 ml .XX .Continue Order CIARRA; Protocol Non-Formulary Medication (Total Parenteral Nutrition, Central) 1,000 ml .XX .Continue Order CIARRA; Protocol Non-Formulary Medication (Total Parenteral Nutrition, Central) 1,000 ml .XX .Continue Order CIARRA; Protocol Stop: 03/28/18 12:00 Non-Formulary Medication (Total Parenteral Nutrition, Central) 1,000 ml .XX .Continue Order [facility]ARRA Stop: 04/08/18 08:01 Non-Formulary Medication (Total Parenteral Nutrition, Central) 1,000 ml .XX .Continue Order CIARRA Stop: 04/09/18 10:00 Non-Formulary Medication (Total Parenteral Nutrition, Central) 1,000 ml .XX .Continue Order CIARRA Stop: 04/10/18 10:00 Non-Formulary Medication (Total Parenteral Nutrition, Central) 1,000 ml .XX .Continue Order CIARRA Stop: 04/11/18 10:00 Nystatin (Mycostatin) 5 ml PO QID [facility]1983 Last Admin: 04/04/18 15:25 Dose: 5 ml Ondansetron HCl (Zofran) 4 mg IVPUSH ONETIME ONE Stop: 03/18/18 18:18 Last Admin: 03/18/18 18:27 Dose: 4 mg Ondansetron HCl (Zofran) Confirm Administered Dose 4 mg .ROUTE .STK-MED ONE Stop: 03/18/18 19:48 Ondansetron HCl (Zofran) Confirm Administered Dose 4 mg .ROUTE .STK-MED ONE Stop: 04/07/18 10:56 Oxycodone HCl (Oxycodone) 5 mg PO Q4H PRN PRN Reason: Pain (moderate 4-6) Last Admin: 04/06/18 05:19 Dose: 5 mg Pantoprazole Sodium (Protonix Iv) 40 mg IVPUSH DAILY [facility], [facility]–1983 Last Admin: 03/28/18 08:34 Dose: 40 mg Pantoprazole Sodium (Protonix) 40 mg PO ACBREAKFAST [facility], [facility]–1983 Last Admin: 04/07/18 08:10 Dose: 40 mg Phenylephrine HCl (Isaías-Synephrine) Confirm Administered Dose 10 mg .ROUTE .STK- MED ONE Stop: 03/18/18 20:05 Potassium Chloride (Klor-Con M20) 40 meq PO ONETIME ONE Stop: 04/03/18 13:16 Last Admin: 04/03/18 14:33 Dose: 40 meq Potassium Chloride (Klor-Con M20) 40 meq PO ONETIME ONE Stop: 04/03/18 17:01 Last Admin: 04/03/18 20:55 Dose: 40 meq Potassium Chloride (Klor-Con M20) 40 meq PO ONETIME ONE Stop: 04/04/18 09:01 Last Admin: 04/04/18 09:34 Dose: 40 meq Potassium Chloride (Klor-Con M20) 40 meq PO ONETIME ONE Stop: 04/04/18 17:01 Last Admin: 04/04/18 17:08 Dose: 40 meq Potassium Chloride (Klor-Con M20) 40 meq PO ONETIME ONE Stop: 04/05/18 09:01 Last Admin: 04/05/18 10:14 Dose: 40 meq Potassium Chloride (Klor-Con M20) 40 meq PO ONETIME ONE Stop: 04/05/18 17:01 Last Admin: 04/05/18 18:00 Dose: 40 meq Prednisone (Prednisone) 20 mg PO WITHBREAKFAST CIARRA Last Admin: 03/30/18 08:59 Dose: 20 mg Propofol (Diprivan 20 Ml) Confirm Administered Dose 200 mg .ROUTE .STK-MED ONE Stop: 03/18/18 19:48 Propofol (Diprivan 20 Ml) Confirm Administered Dose 200 mg .ROUTE .STK-MED ONE Stop: 04/02/18 12:59 Propofol (Diprivan 20 Ml) Confirm Administered Dose 200 mg .ROUTE .STK-MED ONE Stop: 04/07/18 10:56 Rocuronium [place] (Zemuron) Confirm Administered Dose 50 mg .ROUTE .STK-MED ONE Stop: 03/18/18 19:48 Rocuronium [place] (Zemuron) Confirm Administered Dose 50 mg .ROUTE .STK-MED ONE Stop: 04/07/18 10:56 Succinylcholine Chloride (Quelicin) Confirm Administered Dose 200 mg .ROUTE .STK -MED ONE Stop: 03/18/18 19:48 Vancomycin HCl (Vancomycin) 1 gm IV .PHARMACY TO DOSE CIARRA Stop: 03/21/18 16:00 - Exam Quality Assessment: Central Line/PICC, Urine Catheter, DVT Prophylaxis General: Alert, Oriented, Cooperative, Mild Distress Lungs: Clear to Auscultation, Normal Respiratory Effort Cardiovascular: Regular Rate, Regular Rhythm, No Murmurs GI/Abdominal Exam: Soft, No Organomegaly, Tender. No: Distended, Guarding, Rigid, Rebound Extremities: Non-Tender, No Pedal Edema - Problem List Review Problem List Initiated/Reviewed/Updated: Yes - My Orders Last 24 Hours: My Active Orders 04/11/18 11:15 Lactobacillus Rhamnosus GG [Culturelle] 1 cap PO BID 04/11/18 11:30 Ciprofloxacin in D5W [Cipro in D5W 400 MG/200 ML] 400 mg Premix Bag 1 bag IV Q12H 04/11/18 13:00 Doxycycline [Vibramycin] 100 mg Sodium Chloride 0.9% [Normal Saline] 100 ml IV Q12H 04/12/18 11:10 Furosemide [Lasix] 40 mg IVPUSH NOW ONE 04/12/18 17:00 Potassium Chloride Riders [KCL 40 MEQ in Water 100 ML] 40 meq Premix Bag 1 bag IV ONETIME - Plan Plan:: ASSESSMENT AND PLAN WOUND DEHISCENCE WITH UNDERLYING ABSCESS - status post exploratory laparotomy . Seems to be slowly improving on a daily basis, more alert and interactive over the past 48 hours -Ciprofloxacin 400 mg IV every 12 hours - doxycycline 100 mg IV every 12 hours -Surgical follow-up per surgery team SIGMOID COLON PERFORATION RESULTING IN ACUTE ABDOMEN AND SEPTIC SHOCK - postop course complicated by wound dehiscence as above. He is receiving nutritional support via TPN. -Continue TPN initiated today -Post operative surgical care per surgical team -Pain control -Saline lock IV SEPTIC SHOCK - resolved ACUTE HYPOXIC RESPIRATORY FAILURE - respiratory status seems to be slowly declining again and I suspect is related to excess fluid. He has been positive for the last several days. He is receiving a unit of blood today as well. -Coughing, deep breathing and suctioning as able -Furosemide daily COPD - [id number] smoking history but no evidence for exacerbation at this time. -Nebulized albuterol as needed -Vigorous pulmonary toilet during the postoperative period HISTORY OF LUNG AND PROSTATE CARCINOMA - lung cancer felt to be stable, had been receiving treatment for management of prostate carcinoma prior to admission MAINTENANCE ISSUES -DVT prophylaxis; SCUDs -GI prophylaxis; Protonix 40 mg daily -Sorto catheter; placed at the time of surgery for strict intake and output monitoring -Nutrition; nothing by mouth DISPOSITION - anticipate discharge to long term after the hospital stay.
[2018-04-12] MEDS ORDERED: Furosemide 40 MG/4 ML VIAL IVPUSH ONE (11:20)
[2018-04-12] MEDS: Acetaminophen Soln 650 MG/20.3 ML UD Cup GTUBE SCH ×3 (11:37→23:31)
[2018-04-12] MEDS ORDERED: Furosemide 40 MG/4 ML VIAL ONE (13:26)
[2018-04-13] MEDS: Doxycycline 100 MG in Sodium Chloride 0.9% 100 ML IV SCH ×2 (01:18→14:05)
[2018-04-13] MEDS: 1: AA 5%/Calcium/D15W/Lytes 1,000 ML with MVI, Adult with Vitamin K 10 ML, Chromium/Copp IV SCH ×6 (03:10→14:51)
[2018-04-13] MEDS: Pantoprazole 40 MG Vial IV SCH (05:44)
[2018-04-13] MEDS: Acetaminophen Soln 650 MG/20.3 ML UD Cup GTUBE SCH ×3 (05:44→18:14)
[2018-04-13] MEDS: Albuterol/Ipratropium 3.0-0.5 MG/3 ML Neb Soln NEB SCH ×4 (07:14→20:18)
[2018-04-13] MEDS ORDERED: Central Total Parenteral Nutrition Bag SCH (08:00)
[2018-04-13] MEDS ORDERED: POTASSIUM PHOSPHATES IV SCH (08:00)
[2018-04-13] MEDS ORDERED: SODIUM CHLORIDE IV SCH (08:00)
[2018-04-13] MEDS ORDERED: Potassium Chloride Riders 40 MEQ in Premix Bag 1 BAG IV ONE (08:07)
[2018-04-13] MEDS ORDERED: Furosemide 40 MG/4 ML VIAL IVPUSH ONE (08:30)
[2018-04-13] MEDS ORDERED: Potassium Chloride 20 MEQ Tab.ER PO ONE ×3 (08:30→17:00)
[2018-04-13] MEDS: traMADol 50 MG Tab PO PRN ×2 (08:41→20:18)
[2018-04-13] MEDS: Lactobacillus Rhamnosus GG (Probiotic) Cap PO SCH ×2 (08:42→20:14)
[2018-04-13] MEDS: Potassium Phosphates 25 MMOLE in Sodium Chloride 0.9% 100 ML IV SCH ×3 (10:07→18:13)
--- NOTE | 2018-04-13 10:35 | PCM.PN ---
- General Info Date of Service: 04/13/18 Subjective Update: Mr. Silva continues to show evidence of slow improvement, more alert and interactive. He is able to stand and take a few steps, oral intake remains fairly poor with decreased appetite. - Review of Systems General: Reports: Weakness. Denies: Fever, Chills Pulmonary: Reports: No Symptoms Cardiovascular: Reports: No Symptoms Gastrointestinal: Reports: Abdominal Pain, Decreased Appetite. Denies: Constipation, Diarrhea, Difficulty Swallowing, Hematochezia, Melena, Nausea, Vomiting - Patient Data Vitals - Most Recent: Last Vital Signs Temp 95.4 F 04/13/18 08:07 Pulse 87 04/13/18 08:07 Resp 16 04/13/18 08:07 BP 140/75 04/13/18 08:07 Pulse Ox 96 04/13/18 10:00 Weight - Most Recent: 164 lb 3.91 oz I&O - Last 24 Hours: Intake & Output 04/12/18 04/13/18 04/13/18 22:59 06:59 14:59 Intake Total 2265 1523 100 Output Total 3020 1440 900 Balance -755 83 -800 Lab Results Last 24 Hours: Laboratory Results - last 24 hr 04/13/18 04/13/18 Range/Units 04:36 04:36 WBC 13.2 H (4.5-11.0) K/uL RBC 3.24 L (4.30-5.90) M/uL Hgb 9.6 L (12.0-15.0) g/dL Hct 30.0 L (40.0-54.0) % MCV 93 (80-98) fL MCH 30 (27-31) pg MCHC 32 (32-36) % Plt Count 212 (150-400) K/uL Sodium 144 (140-148) mmol/L Potassium 3.3 L (3.6-5.2) mmol/L Chloride 108 (100-108) mmol/L Carbon Dioxide 28 (21-32) mmol/L Anion Gap 11.3 (5.0-14.0) mmol/L BUN 32 H (7-18) mg/dL Creatinine 1.0 (0.8-1.3) mg/dL Est Cr Clr Drug Dosing 59.53 mL/min Estimated GFR (MDRD) > 60 (>60) Glucose 123 H (74-106) mg/dL Calcium 7.9 L (8.5-10.1) mg/dL Phosphorus 2.1 L (2.5-4.9) mg/dL Total Bilirubin 0.7 (0.2-1.0) mg/dL AST 35 (15-37) U/L ALT 48 (12-78) U/L Alkaline Phosphatase 134 H (46-116) U/L NT-Pro-B Natriuret Pep 643 H (5-450) pg/mL Total Protein 5.7 L (6.4-8.2) g/dL Albumin 2.8 L (3.4-5.0) g/dL Globulin 2.9 (2.3-3.5) g/dL Albumin/Globulin Ratio 1.0 L (1.2-2.2) Med Orders - Current: Current Medications Acetaminophen (Tylenol) 1,000 mg GTUBE Q6H [facility] Last Admin: 04/13/18 05:44 Dose: 1,000 mg Albuterol (Proventil Neb Soln) 2.5 mg NEB Q4H PRN PRN Reason: Dyspnea Last Admin: 04/05/18 18:03 Dose: 2.5 mg Albuterol/Ipratropium (Duoneb 3.0-0.5 Mg/3 Ml) 3 ml NEB QIDRT [facility] Last Admin: 04/13/18 07:14 Dose: 3 ml Dimethicone/Zinc Oxide (Rash Relief-Zinc Oxide [place]) 0 gm TOP ASDIRECTED PRN PRN Reason: Rash Last Admin: 03/28/18 16:55 Dose: 1 spray Diphenhydramine HCl (Benadryl) 25 mg IVPUSH Q6H PRN PRN Reason: Itching Last Admin: 04/09/18 12:19 Dose: 25 mg Heparin Sodium (Porcine) (Heparin Lock Flush 100 Units/Ml) 500 units FLUSH ASDIRECTED PRN PRN Reason: IV Use Last Admin: 04/12/18 16:33 Dose: 500 units Hydroxyzine HCl (Vistaril) 50 mg IM Q6H PRN PRN Reason: Pain Multivitamins/Minerals 10 ml/Chromium/Copper/Manganese/Seleni/Zn 1 ml/ Amino Ac/ Electrol/Dextrose/Calcium 1,011 mls @ 82 mls/hr IV .BY DURATION [facility] Last Admin: 04/12/18 14:18 Dose: 82 mls/hr Amino Ac/Electrol/Dextrose/Calcium (Clinimix E 07/08) 1,000 mls @ 82 mls/hr IV .BY DURATION [facility] Last Admin: 04/13/18 03:10 Dose: 82 mls/hr Sodium Chloride (Normal Saline) 1,000 mls @ 0 mls/hr IV ASDIRECTED [facility] Doxycycline Hyclate 100 mg/ (Sodium Chloride) 100 mls @ 100 mls/hr IV Q12H [facility] Last Admin: 04/13/18 01:18 Dose: 100 mls/hr Ciprofloxacin/Dextrose 400 mg/ (Premix) 200 mls @ 200 mls/hr IV Q12H [facility] Last Admin: 04/12/18 23:28 Dose: 200 mls/hr Potassium Phosphate 25 mmole/ (Sodium Chloride) 108.3333 mls @ 27 mls/hr IV Q4H [facility] Stop: 04/13/18 21:29 Last Admin: 04/13/18 10:07 Dose: 27 mls/hr Lactobacillus Rhamnosus (Culturelle) 1 cap PO BID [facility] Last Admin: 04/13/18 08:42 Dose: 1 cap Naloxone HCl (Narcan) 0.1 mg IV ASDIRECTED PRN PRN Reason: decreased respiratory rate Non-Formulary Medication (Total Parenteral Nutrition, Central) 1,000 ml .XX .Continue Order [facility] Stop: 04/13/18 12:00 Pantoprazole Sodium (Protonix Iv) 40 mg IV Q24H [facility] Last Admin: 04/13/18 05:44 Dose: 40 mg Potassium Chloride (Klor-Con M20) 40 meq PO ONETIME ONE Stop: 04/13/18 13:01 Potassium Chloride (Klor-Con M20) 40 meq PO ONETIME ONE Stop: 04/13/18 17:01 Tramadol HCl (Ultram) 25 - 50 mg PO Q6H PRN PRN Reason: Pain Last Admin: 04/13/18 08:41 Dose: 50 mg Discontinued Medications Acetaminophen (Tylenol) 650 mg RECTAL Q4H PRN PRN Reason: Fever Acetaminophen (Tylenol) 650 mg PO Q4H PRN PRN Reason: Pain/Fever Last Admin: 04/05/18 20:14 Dose: 650 mg Albuterol/Ipratropium (Duoneb 3.0-0.5 Mg/3 Ml) 3 ml NEB Q4H PRN PRN Reason: Dyspnea Albuterol/Ipratropium (Duoneb 3.0-0.5 Mg/3 Ml) 3 ml NEB ONETIME ONE Stop: 04/07/18 10:31 Last Admin: 04/07/18 10:26 Dose: Not Given Bupivacaine HCl (Marcaine 0.5%) Confirm Administered Dose 50 ml .ROUTE .STK-MED ONE Stop: 04/07/18 12:06 Ropivacaine 34 ml/Dexamethasone 8 mg/Epinephrine HCl 0.4 mg/ Sodium Chloride 43.6 ml 0 ml NERVRT ASDIRECTED [facility] Last Admin: 04/07/18 16:01 Dose: 80 syringe Dexamethasone (Dexamethasone) Confirm Administered Dose 4 mg .ROUTE .STK-MED ONE Stop: 03/18/18 19:48 Dexamethasone (Dexamethasone) Confirm Administered Dose 4 mg .ROUTE .STK-MED ONE Stop: 04/07/18 10:56 Epinephrine HCl (Adrenalin) Confirm Administered Dose 1 mg .ROUTE .STK-MED ONE Stop: 03/18/18 21:07 Erythromycin Ethylsuccinate (Eryped 400) 125 mg PO Q6H [facility] Last Admin: 04/07/18 15:14 Dose: Not Given Fentanyl (Sublimaze) Confirm Administered Dose 250 mcg .ROUTE .STK-MED ONE Stop: 03/18/18 19:48 Fentanyl (Sublimaze) Confirm Administered Dose 250 mcg .ROUTE .STK-MED ONE Stop: 04/02/18 12:59 Fentanyl (Sublimaze) Confirm Administered Dose 250 mcg .ROUTE .STK-MED ONE Stop: 04/07/18 10:56 Furosemide (Lasix) 20 mg IVPUSH ONETIME ONE Stop: 03/23/18 09:46 Last Admin: 03/23/18 10:18 Dose: 20 mg Furosemide (Lasix) 20 mg IVPUSH NOW ONE Stop: 03/25/18 10:01 Last Admin: 03/25/18 10:17 Dose: 20 mg Furosemide (Lasix) 20 mg IVPUSH ONETIME ONE Stop: 03/26/18 09:16 Last Admin: 03/26/18 09:10 Dose: 20 mg Furosemide (Lasix) 20 mg IVPUSH ONETIME ONE Stop: 03/26/18 16:01 Last Admin: 03/26/18 18:28 Dose: Not Given Furosemide (Lasix) 20 mg IVPUSH NOW ONE Stop: 03/27/18 10:01 Last Admin: 03/27/18 10:26 Dose: 20 mg Furosemide (Lasix) 20 mg IVPUSH ONETIME ONE Stop: 03/30/18 13:11 Last Admin: 03/30/18 13:36 Dose: 20 mg Furosemide (Lasix) 20 mg IVPUSH NOW ONE Stop: 03/31/18 11:55 Last Admin: 03/31/18 13:04 Dose: 20 mg Furosemide (Lasix) 20 mg IVPUSH NOW ONE Stop: 04/01/18 12:05 Last Admin: 04/01/18 12:43 Dose: 20 mg Furosemide (Lasix) 20 mg IVPUSH NOW ONE Stop: 04/02/18 15:46 Last Admin: 04/02/18 15:53 Dose: 20 mg Furosemide (Lasix) 40 mg IVPUSH NOW ONE Stop: 04/03/18 09:01 Last Admin: 04/03/18 09:45 Dose: 40 mg Furosemide (Lasix) 40 mg IVPUSH NOW ONE Stop: 04/04/18 15:31 Last Admin: 04/04/18 15:55 Dose: 40 mg Furosemide (Lasix) 40 mg IVPUSH NOW ONE Stop: 04/05/18 09:01 Last Admin: 04/05/18 10:15 Dose: 40 mg Furosemide (Lasix) 40 mg IVPUSH ONETIME ONE Stop: 04/08/18 12:01 Last Admin: 04/08/18 11:01 Dose: 40 mg Furosemide (Lasix) 40 mg IVPUSH ONETIME STA Stop: 04/09/18 06:48 Last Admin: 04/09/18 10:16 Dose: Not Given Furosemide (Lasix) 20 mg IVPUSH ONETIME ONE Stop: 04/09/18 12:01 Last Admin: 04/09/18 13:43 Dose: Not Given Furosemide (Lasix) 40 mg IVPUSH ONETIME STA Stop: 04/09/18 10:08 Last Admin: 04/09/18 10:09 Dose: 40 mg Furosemide (Lasix) Confirm Administered Dose 40 mg .ROUTE .STK-MED ONE Stop: 04/09/18 10:08 Last Admin: 04/09/18 10:16 Dose: 40 mg Furosemide (Lasix) 40 mg IVPUSH ONETIME ONE Stop: 04/09/18 16:01 Last Admin: 04/09/18 15:54 Dose: 40 mg Furosemide (Lasix) 40 mg IVPUSH ONETIME ONE Stop: 04/10/18 12:01 Last Admin: 04/10/18 14:03 Dose: 40 mg Furosemide (Lasix) 20 mg IVPUSH ONETIME ONE Stop: 04/10/18 20:01 Last Admin: 04/10/18 21:10 Dose: 20 mg Furosemide (Lasix) 40 mg IVPUSH NOW ONE Stop: 04/11/18 11:31 Last Admin: 04/11/18 12:58 Dose: 40 mg Furosemide (Lasix) 40 mg IVPUSH NOW ONE Stop: 04/12/18 11:21 Last Admin: 04/12/18 13:28 Dose: 40 mg Furosemide (Lasix) Confirm Administered Dose 40 mg .ROUTE .STK-MED ONE Stop: 04/12/18 13:27 Last Admin: 04/12/18 13:52 Dose: Not Given Furosemide (Lasix) 40 mg IVPUSH NOW ONE Stop: 04/13/18 08:31 Last Admin: 04/13/18 08:42 Dose: 40 mg Glycopyrrolate (Robinul) Confirm Administered Dose 1 mg .ROUTE .STK-MED ONE Stop: 03/18/18 19:48 Glycopyrrolate (Robinul) Confirm Administered Dose 1 mg .ROUTE .STK-MED ONE Stop: 04/07/18 10:56 Heparin Sodium (Porcine) (Heparin Sodium) Confirm Administered Dose 5,000 units .ROUTE .STK-MED ONE Stop: 03/18/18 19:51 Heparin Sodium (Porcine) (Heparin Lock Flush 100 Units/Ml) Confirm Administered Dose 500 units .ROUTE .STK-MED ONE Stop: 03/22/18 12:17 Last Admin: 03/22/18 12:30 Dose: Not Given Heparin Sodium (Porcine) (Heparin Sodium) Confirm Administered Dose 5,000 units .ROUTE .STK-MED ONE Stop: 03/24/18 19:52 Last Admin: 03/24/18 20:33 Dose: 5,000 units Heparin Sodium (Porcine) (Heparin Lock Flush 100 Units/Ml) Confirm Administered Dose 1,000 units .ROUTE .STK-MED ONE Stop: 04/07/18 12:06 Last Admin: 04/07/18 14:30 Dose: 500 units Hydrocortisone Sodium Succinate (Solu-Cortef) 100 mg IVPUSH Q12H [facility] Last Admin: 03/28/18 20:15 Dose: 100 mg Hydrocortisone Sodium Succinate (Solu-Cortef) 100 mg IVPUSH DAILY [facility] Last Admin: 03/30/18 13:39 Dose: Not Given Hydromorphone HCl (Dilaudid) 0.5 mg IVPUSH ONETIME ONE Stop: 03/18/18 17:43 Last Admin: 03/18/18 17:47 Dose: 0.5 mg Hydromorphone HCl (Dilaudid) 1 mg IVPUSH ONETIME ONE Stop: 03/18/18 18:18 Last Admin: 03/18/18 18:27 Dose: 1 mg Hydroxyzine HCl (Vistaril) 100 mg IM Q6H PRN PRN Reason: Pain Last Admin: 04/11/18 08:49 Dose: 100 mg Sodium Chloride (Normal Saline) 1,000 mls @ 1,000 mls/hr IV ASDIRECTED [facility] Last Admin: 03/18/18 17:47 Dose: 1,000 mls/hr Sodium Chloride (Normal Saline) 1,000 mls @ 999 mls/hr IV ASDIRECTED [facility] Last Admin: 03/18/18 19:31 Dose: 999 mls/hr Meropenem 500 mg/ Sodium (Chloride) 50 mls @ 100 mls/hr IV ONETIME ONE Stop: 03/18/18 19:09 Last Admin: 03/18/18 19:01 Dose: 100 mls/hr Sodium Chloride (Normal Saline) Confirm Administered Dose 50 mls @ as directed .ROUTE .STK-MED ONE Stop: 03/18/18 19:40 Last Admin: 03/18/18 20:19 Dose: Not Given Aztreonam 2 gm/ Sodium (Chloride) 50 mls @ 100 mls/hr IV ONETIME ONE Stop: 03/18/18 20:01 Last Admin: 03/18/18 20:44 Dose: 100 mls/hr Meropenem 500 mg/ Sodium (Chloride) 50 mls @ 100 mls/hr IV ONETIME ONE Stop: 03/18/18 20:00 Last Admin: 03/18/18 19:40 Dose: 100 mls/hr Sodium Chloride (Normal Saline) Confirm Administered Dose 250 mls @ as directed .ROUTE .[facility] ONE Stop: 03/18/18 19:59 Lactated Ringer's (Ringers, Lactated) Confirm Administered Dose 1,000 mls @ as directed .ROUTE .[facility] ONE Stop: 03/18/18 19:59 Sodium Chloride (Normal Saline) Confirm Administered Dose 500 mls @ as directed .ROUTE .[facility] ONE Stop: 03/18/18 19:59 Norepinephrine Bitartrate 8 mg (/ Dextrose/Water) 258 mls @ 3.87 mls/hr IV TITRATE [facility]; Protocol Last Admin: 03/19/18 11:45 Dose: 12 mcg/min, 23.22 mls/hr Lactated Ringer's (Ringers, Lactated) Confirm Administered Dose 1,000 mls @ as directed .ROUTE .[facility] ONE Stop: 03/18/18 21:42 Propofol (Diprivan 100 Ml) 100 mls @ 2.082 mls/hr IV TITRATE [facility]; Protocol Last Titration: 03/27/18 06:35 Dose: 10 mcg/kg/min, 4.164 mls/hr Aztreonam 1 gm/ Sodium (Chloride) 50 mls @ 100 mls/hr IV Q8H [facility] Last Admin: 03/19/18 05:29 Dose: 100 mls/hr Potassium Chloride/Dextrose/Sod Cl (D5 1/2 Ns W/ 20 Meq/L Kcl) 1,000 mls @ 150 mls/hr IV ASDIRECTED [facility] Last Admin: 03/18/18 23:11 Dose: 150 mls/hr Meropenem 1 gm/ Sodium (Chloride) 50 mls @ 100 mls/hr IV Q12H [facility] Stop: 03/29/18 22:00 Last Admin: 03/29/18 20:10 Dose: 100 mls/hr Lactated Ringer's (Ringers, Lactated) 1,000 mls @ 500 mls/hr IV ASDIRECTED [facility] Last Admin: 03/19/18 01:23 Dose: 500 mls/hr Vasopressin 100 units/ (Dextrose/Water) 255 mls @ 1.53 mls/hr IV TITRATE [facility]; Protocol Stop: 03/21/18 13:00 Last Titration: 03/21/18 11:03 Dose: 0.02 units/min, 3.06 mls/hr Lactated Ringer's (Ringers, Lactated) 1,000 mls @ 500 mls/hr IV BOLUS [facility] Stop: 03/19/18 05:29 Last Admin: 03/19/18 04:02 Dose: 500 mls/hr Aztreonam/Dextrose 1 gm/ (Premix) 50 mls @ 100 mls/hr IV Q8H [facility] Last Admin: 03/28/18 05:26 Dose: 100 mls/hr Lactated Ringer's (Ringers, Lactated) 1,000 mls @ 500 mls/hr IV .[facility] ONE Stop: 03/19/18 14:59 Last Admin: 03/19/18 14:27 Dose: 500 mls/hr Lactated Ringer's (Ringers, Lactated) 1,000 mls @ 150 mls/hr IV ASDIRECTED [facility] Last Admin: 03/21/18 11:53 Dose: 150 mls/hr Norepinephrine Bitartrate 8 mg (/ Dextrose/Water) 250 mls @ 3.75 mls/hr IV TITRATE [facility]; Protocol Last Titration: 03/27/18 09:04 Dose: 4 mcg/min, 7.5 mls/hr Magnesium Sulfate 2 gm/ Premix 50 mls @ 25 mls/hr IV Q6H [facility] Stop: 03/20/18 17:59 Last Admin: 03/20/18 16:30 Dose: 25 mls/hr Vancomycin HCl 1.25 gm/ Sodium (Chloride) 250 mls @ 170 mls/hr IV Q24H [facility] Last Admin: 03/22/18 10:06 Dose: 170 mls/hr Vasopressin 40 units/ Dextrose (/Water) 100 mls @ 3 mls/hr IV TITRATE [facility]; Protocol Last Titration: 03/23/18 01:00 Dose: 0 units/min, 0 mls/hr Potassium Chloride 20 meq/ (Premix) 100 mls @ 50 mls/hr IV Q2H [facility] Stop: 03/21/18 22:59 Last Admin: 03/21/18 22:20 Dose: 50 mls/hr Potassium Chloride 20 meq/ (Premix) 100 mls @ 50 mls/hr IV Q2H [facility] Stop: 03/22/18 12:59 Last Admin: 03/22/18 11:30 Dose: 50 mls/hr Potassium Chloride 20 meq/ (Premix) 100 mls @ 50 mls/hr IV Q2H [facility] Stop: 03/22/18 17:29 Last Admin: 03/22/18 16:13 Dose: 50 mls/hr Potassium Chloride (Kcl 20 Meq In Water 100 Ml) 100 mls @ 50 mls/hr IV Q2H [facility] Stop: 03/23/18 01:59 Last Admin: 03/23/18 00:53 Dose: 50 mls/hr Potassium Chloride 40 meq/ (Premix) 100 mls @ 25 mls/hr IV ONETIME ONE Stop: 03/23/18 14:29 Last Admin: 03/23/18 10:31 Dose: 25 mls/hr Vancomycin HCl 1.4 gm/ Sodium (Chloride) 250 mls @ 170 mls/hr IV Q24H [facility] Last Admin: 03/24/18 11:13 Dose: 170 mls/hr Multivitamins/Minerals 10 ml/Chromium/Copper/Manganese/Seleni/Zn 1 ml/ Amino Ac/ Electrol/Dextrose/Calcium 1,011 mls @ 75 mls/hr IV .BY DURATION [facility] Last Admin: 03/25/18 22:34 Dose: 75 mls/hr Amino Ac/Electrol/Dextrose/Calcium (Clinimix E 07/08) 1,000 mls @ 75 mls/hr IV .BY DURATION [facility] Last Admin: 03/25/18 08:11 Dose: 75 mls/hr Vasopressin 100 units/ (Dextrose/Water) 255 mls @ 1.53 mls/hr IV TITRATE [facility]; Protocol Last Titration: 03/25/18 11:51 Dose: 0 units/min, 0 mls/hr Potassium Chloride 20 meq/ (Premix) 100 mls @ 50 mls/hr IV Q2H [facility] Stop: 03/24/18 13:59 Last Admin: 03/24/18 12:13 Dose: 50 mls/hr Multivitamins/Minerals 10 ml/Chromium/Copper/Manganese/Seleni/Zn 1 ml/ Amino Ac/ Electrol/Dextrose/Calcium 1,011 mls @ 75 mls/hr IV .BY DURATION [facility] Last Admin: 03/29/18 06:48 Dose: 75 mls/hr Amino Ac/Electrol/Dextrose/Calcium (Clinimix E 07/08) 1,000 mls @ 75 mls/hr IV .BY DURATION [facility] Last Admin: 03/29/18 20:12 Dose: 75 mls/hr Heparin Sodium (Porcine) 5,000 (units/ Sodium Chloride) 501 mls @ 5 mls/hr IV ASDIRECTED [facility] Last Admin: 03/27/18 12:50 Dose: 5 mls/hr Sodium Chloride (Normal Saline) 1,000 mls @ 50 mls/hr IV ASDIRECTED [facility] Last Admin: 03/30/18 13:36 Dose: 50 mls/hr Dextrose/Sodium Chloride (Dextrose 5%-1/2 Ns) 1,000 mls @ 75 mls/hr IV ASDIRECTED [facility] Last Admin: 03/31/18 23:53 Dose: 75 mls/hr Albumin Human (Albumin 25%) 25 gm in 100 mls @ 25 mls/hr IV Q24H [facility] Stop: 04/02/18 12:59 Last Admin: 04/01/18 08:13 Dose: 25 mls/hr Potassium Phosphate 20 mmole/ (Sodium Chloride) 256.6667 mls @ 85 mls/hr IV Q3H [facility] Stop: 04/01/18 18:59 Last Admin: 04/01/18 18:37 Dose: 85 mls/hr Dextrose/Sodium Chloride (Dextrose 5%-1/2 Ns) 1,000 mls @ 80 mls/hr IV ASDIRECTED [facility] Last Admin: 04/03/18 06:40 Dose: 80 mls/hr Cefazolin Sodium/Dextrose 2 gm (/ Premix) 50 mls @ 100 mls/hr IV ONCALL ONE Stop: 04/02/18 11:59 Last Admin: 04/02/18 13:59 Dose: 100 mls/hr Potassium Acetate 20 meq/ (Sodium Chloride) 110 mls @ 55 mls/hr IV Q2H [facility] Stop: 04/02/18 11:59 Last Admin: 04/02/18 10:10 Dose: 55 mls/hr Magnesium Sulfate 2 gm/ Premix 50 mls @ 25 mls/hr IV Q6H [facility] Stop: 04/05/18 07:59 Last Admin: 04/03/18 12:11 Dose: 25 mls/hr Albumin Human (Albumin 25%) 25 gm in 100 mls @ 25 mls/hr IV ONETIME ONE Stop: 04/02/18 17:59 Last Admin: 04/02/18 15:30 Dose: 25 mls/hr Potassium Chloride 20 meq/Lidocaine HCl 2 ml/ Sodium Chloride 112 mls @ 56 mls/ hr IV Q2H [facility] Stop: 04/03/18 17:59 Last Admin: 04/03/18 17:04 Dose: 56 mls/hr Magnesium Sulfate 2 gm/ Premix 50 mls @ 25 mls/hr IV Q6H [facility] Stop: 04/08/18 03:59 Last Admin: 04/07/18 15:14 Dose: Not Given Potassium Phosphate 15 mmole/ (Sodium Chloride) 255 mls @ 128 mls/hr IV Q2H [facility] Stop: 04/06/18 13:59 Last Admin: 04/06/18 12:49 Dose: 128 mls/hr Dextrose/Lactated Ringer's (Dextrose 5%-Lactated Ringers) 1,000 mls @ 100 mls/ hr IV ASDIRECTED [facility] Last Admin: 04/07/18 08:44 Dose: 100 mls/hr Meropenem 500 mg/ Sodium (Chloride) 50 mls @ 100 mls/hr IV ONCALL ONE Stop: 04/07/18 11:59 Last Admin: 04/07/18 15:13 Dose: Not Given Linezolid (Zyvox) Confirm Administered Dose 300 mls @ as directed .ROUTE .STK- MED ONE Stop: 04/07/18 15:26 Lactated Ringer's (Ringers, Lactated) Confirm Administered Dose 1,000 mls @ as directed .ROUTE .STK-MED ONE Stop: 04/07/18 15:35 Linezolid 600 mg/ Premix 300 mls @ 300 mls/hr IV ONETIME ONE Stop: 04/07/18 17:29 Last Admin: 04/07/18 16:25 Dose: 300 mls/hr Dextrose/Lactated Ringer's (Dextrose 5%-Lactated Ringers) 1,000 mls @ 175 mls/ hr IV ASDIRECTED [facility] Last Admin: 04/08/18 06:21 Dose: 175 mls/hr Linezolid 600 mg/ Premix 300 mls @ 300 mls/hr IV Q12H [facility] Last Admin: 04/10/18 03:46 Dose: 300 mls/hr Meropenem 500 mg/ Sodium (Chloride) 50 mls @ 100 mls/hr IV Q8H [facility] Last Admin: 04/11/18 06:23 Dose: 100 mls/hr Magnesium Sulfate 2 gm/ Premix 50 mls @ 25 mls/hr IV Q6H [facility] Stop: 04/09/18 13:59 Last Admin: 04/09/18 11:40 Dose: 25 mls/hr Dextrose/Lactated Ringer's (Dextrose 5%-Lactated Ringers) 1,000 mls @ 100 drops /hr IV ASDIRECTED [facility] Last Admin: 04/09/18 11:39 Dose: 100 drops/hr Albumin Human (Albumin 25%) 25 gm in 100 mls @ 25 mls/hr IV Q24H [facility] Stop: 04/12/18 13:59 Last Admin: 04/12/18 09:28 Dose: 25 mls/hr Albumin Human (Albumin 25%) 25 gm in 100 mls @ 25 mls/hr IV Q24H [facility] Stop: 04/12/18 17:59 Last Admin: 04/12/18 14:19 Dose: 25 mls/hr Dextrose/Lactated Ringer's (Dextrose 5%-Lactated Ringers) 1,000 mls @ 25 mls/ hr IV ASDIRECTED [facility] Potassium Phosphate 22.5 mmole (/ Sodium Chloride) 257.5 mls @ 86 mls/hr IV Q3H [facility] Stop: 04/10/18 15:59 Last Admin: 04/10/18 14:47 Dose: 86 mls/hr Calcium Gluconate 1 gm/ Sodium (Chloride) 110 mls @ 100 mls/hr IV Q6H [facility] Stop: 04/10/18 18:05 Last Admin: 04/10/18 16:21 Dose: 100 mls/hr Acetaminophen 1,000 mg/ Premix 100 mls @ 400 mls/hr IV Q6H [facility] Stop: 04/12/18 06:44 Last Admin: 04/12/18 05:47 Dose: 400 mls/hr Potassium Chloride 20 meq/ (Premix) 100 mls @ 50 mls/hr IV Q2H [facility] Stop: 04/12/18 14:59 Last Admin: 04/12/18 13:29 Dose: 50 mls/hr Potassium Chloride 40 meq/ (Premix) 100 mls @ 25 mls/hr IV ONETIME ONE Stop: 04/12/18 12:19 Potassium Chloride 40 meq/ (Premix) 100 mls @ 25 mls/hr IV ONETIME ONE Stop: 04/12/18 20:59 Last Admin: 04/12/18 17:45 Dose: 25 mls/hr Insulin Human Lispro (Humalog) 0 unit SUBCUT Q6H [facility]; Protocol Last Admin: 03/30/18 16:32 Dose: Not Given Insulin Human Lispro (Humalog) 0 unit SUBCUT Q6H [facility]; Protocol Last Admin: 03/31/18 03:52 Dose: Not Given Insulin Human Lispro (Humalog) 0 unit SUBCUT QIDACANDBED [facility]; Protocol Stop: 04/12/18 11:01 Last Admin: 03/31/18 13:17 Dose: Not Given Lidocaine/Epinephrine (Xylocaine 1% With Epinephrine 1:100,000) Confirm Administered Dose 50 ml .ROUTE .STK-MED ONE Stop: 04/07/18 12:06 Linezolid (Zyvox) 600 mg IRR .STK-MED ONE Stop: 04/07/18 16:06 Last Admin: 04/07/18 16:05 Dose: 600 mg Loperamide HCl (Imodium) 2 mg PO ASDIRECTED PRN PRN Reason: DIARRHEA Melatonin (Melatonin) 9 mg PO BEDTIME [facility] Last Admin: 04/06/18 21:40 Dose: 9 mg Meropenem (Merrem) Confirm Administered Dose 500 mg .ROUTE .STK-MED ONE Stop: 03/18/18 19:40 Last Admin: 03/18/18 20:19 Dose: Not Given Meropenem (Merrem) Confirm Administered Dose 500 mg .ROUTE .STK-MED ONE Stop: 04/07/18 14:38 Last Admin: 04/07/18 16:00 Dose: 500 mg Meropenem (Merrem) Confirm Administered Dose 500 mg .ROUTE .STK-MED ONE Stop: 04/07/18 15:08 Last Admin: 04/07/18 16:05 Dose: 500 mg Midazolam HCl (Versed 1 Mg/Ml) Confirm Administered Dose 2 mg .ROUTE .STK-MED ONE Stop: 04/02/18 12:59 Morphine Sulfate (Morphine) 4 mg IVPUSH Q2H PRN PRN Reason: Pain Last Admin: 03/29/18 07:34 Dose: 4 mg Morphine Sulfate (Morphine [employer] 150 Mg In 30 Ml) 0 mg IV ASDIRECTED PRN; Protocol PRN Reason: Pain Last Admin: 04/07/18 10:00 Dose: 150 mg Morphine Sulfate (Morphine [employer] 150 Mg In 30 Ml) 0 mg IV ASDIRECTED PRN; Protocol PRN Reason: Pain Neostigmine Methylsulfate (Neostigmine) Confirm Administered Dose 5 mg .ROUTE .STK-MED ONE Stop: 03/18/18 19:48 Neostigmine Methylsulfate (Neostigmine) Confirm Administered Dose 5 mg .ROUTE .STK-MED ONE Stop: 04/07/18 10:56 Non-Formulary Medication (Total Parenteral Nutrition, Central) 1,000 ml .XX .Continue Order [facility]; Protocol Stop: 03/24/18 11:31 Non-Formulary Medication (Total Parenteral Nutrition, Central) 1,000 ml .XX .Continue Order [facility]; Protocol Non-Formulary Medication (Total Parenteral Nutrition, Central) 1,000 ml .XX .Continue Order [facility]; Protocol Non-Formulary Medication (Total Parenteral Nutrition, Central) 1,000 ml .XX .Continue Order [facility]; Protocol Stop: 03/28/18 12:00 Non-Formulary Medication (Total Parenteral Nutrition, Central) 1,000 ml .XX .Continue Order [facility] Stop: 04/08/18 08:01 Non-Formulary Medication (Total Parenteral Nutrition, Central) 1,000 ml .XX .Continue Order [facility] Stop: 04/09/18 10:00 Non-Formulary Medication (Total Parenteral Nutrition, Central) 1,000 ml .XX .Continue Order [facility] Stop: 04/10/18 10:00 Non-Formulary Medication (Total Parenteral Nutrition, Central) 1,000 ml .XX .Continue Order [facility] Stop: 04/11/18 10:00 Non-Formulary Medication (Total Parenteral Nutrition, Central) 1,000 ml .XX .Continue Order [facility] Stop: 04/12/18 12:00 Nystatin (Mycostatin) 5 ml PO QID [facility] Last Admin: 04/04/18 15:25 Dose: 5 ml Ondansetron HCl (Zofran) 4 mg IVPUSH ONETIME ONE Stop: 03/18/18 18:18 Last Admin: 03/18/18 18:27 Dose: 4 mg Ondansetron HCl (Zofran) Confirm Administered Dose 4 mg .ROUTE .STK-MED ONE Stop: 03/18/18 19:48 Ondansetron HCl (Zofran) Confirm Administered Dose 4 mg .ROUTE .STK-MED ONE Stop: 04/07/18 10:56 Oxycodone HCl (Oxycodone) 5 mg PO Q4H PRN PRN Reason: Pain (moderate 4-6) Last Admin: 04/06/18 05:19 Dose: 5 mg Pantoprazole Sodium (Protonix Iv) 40 mg IVPUSH DAILY [facility] Last Admin: 03/28/18 08:34 Dose: 40 mg Pantoprazole Sodium (Protonix) 40 mg PO ACBREAKFAST [facility] Last Admin: 04/07/18 08:10 Dose: 40 mg Phenylephrine HCl (Isaías-Synephrine) Confirm Administered Dose 10 mg .ROUTE .STK- MED ONE Stop: 03/18/18 20:05 Potassium Chloride (Klor-Con M20) 40 meq PO ONETIME ONE Stop: 04/03/18 13:16 Last Admin: 04/03/18 14:33 Dose: 40 meq Potassium Chloride (Klor-Con M20) 40 meq PO ONETIME ONE Stop: 04/03/18 17:01 Last Admin: 04/03/18 20:55 Dose: 40 meq Potassium Chloride (Klor-Con M20) 40 meq PO ONETIME ONE Stop: 04/04/18 09:01 Last Admin: 04/04/18 09:34 Dose: 40 meq Potassium Chloride (Klor-Con M20) 40 meq PO ONETIME ONE Stop: 04/04/18 17:01 Last Admin: 04/04/18 17:08 Dose: 40 meq Potassium Chloride (Klor-Con M20) 40 meq PO ONETIME ONE Stop: 04/05/18 09:01 Last Admin: 04/05/18 10:14 Dose: 40 meq Potassium Chloride (Klor-Con M20) 40 meq PO ONETIME ONE Stop: 04/05/18 17:01 Last Admin: 04/05/18 18:00 Dose: 40 meq Potassium Chloride (Klor-Con M20) 40 meq PO ONETIME ONE Stop: 04/13/18 08:31 Last Admin: 04/13/18 08:42 Dose: 40 meq Prednisone (Prednisone) 20 mg PO WITHBREAKFAST [facility] Last Admin: 03/30/18 08:59 Dose: 20 mg Propofol (Diprivan 20 Ml) Confirm Administered Dose 200 mg .ROUTE .STK-MED ONE Stop: 03/18/18 19:48 Propofol (Diprivan 20 Ml) Confirm Administered Dose 200 mg .ROUTE .STK-MED ONE Stop: 04/02/18 12:59 Propofol (Diprivan 20 Ml) Confirm Administered Dose 200 mg .ROUTE .STK-MED ONE Stop: 04/07/18 10:56 Rocuronium [place] (Zemuron) Confirm Administered Dose 50 mg .ROUTE .STK-MED ONE Stop: 03/18/18 19:48 Rocuronium [place] (Zemuron) Confirm Administered Dose 50 mg .ROUTE .STK-MED ONE Stop: 04/07/18 10:56 Succinylcholine Chloride (Quelicin) Confirm Administered Dose 200 mg .ROUTE .STK -MED ONE Stop: 03/18/18 19:48 Vancomycin HCl (Vancomycin) 1 gm IV .PHARMACY TO DOSE CIARRA Stop: 03/21/18 16:00 - Exam Quality Assessment: Supplemental Oxygen, Central Line/PICC, Urine Catheter, DVT Prophylaxis General: Alert, Oriented, Cooperative, Mild Distress Lungs: Clear to Auscultation, Normal Respiratory Effort Cardiovascular: Regular Rate, Regular Rhythm, No Murmurs GI/Abdominal Exam: Soft, No Organomegaly, Tender. No: Distended, Guarding, Rigid, Rebound Extremities: Non-Tender, No Pedal Edema - Problem List Review Problem List Initiated/Reviewed/Updated: Yes - My Orders Last 24 Hours: My Active Orders 04/13/18 13:00 Potassium Chloride [Klor-Con M20] 40 meq PO ONETIME ONE 04/13/18 17:00 Potassium Chloride [Klor-Con M20] 40 meq PO ONETIME ONE - Plan Plan:: ASSESSMENT AND PLAN WOUND DEHISCENCE WITH UNDERLYING ABSCESS - status post exploratory laparotomy . Seems to be slowly improving on a daily basis, more alert and interactive over the past 72 hours -Ciprofloxacin 400 mg IV every 12 hours - doxycycline 100 mg IV every 12 hours -Surgical follow-up per surgery team SIGMOID COLON PERFORATION RESULTING IN ACUTE ABDOMEN AND SEPTIC SHOCK - postop course complicated by wound dehiscence as above. He is receiving nutritional support via TPN. -Continue TPN initiated today -Post operative surgical care per surgical team -Pain control -Saline lock IV SEPTIC SHOCK - resolved ACUTE HYPOXIC RESPIRATORY FAILURE - respiratory status stable with diuresis -Coughing, deep breathing and suctioning as able -Furosemide daily COPD - [id number] smoking history but no evidence for exacerbation at this time. -Nebulized albuterol as needed -Vigorous pulmonary toilet during the postoperative period HISTORY OF LUNG AND PROSTATE CARCINOMA - lung cancer felt to be stable, had been receiving treatment for management of prostate carcinoma prior to admission MAINTENANCE ISSUES -DVT prophylaxis; SCUDs -GI prophylaxis; Protonix 40 mg daily -Sorto catheter; placed at the time of surgery for strict intake and output monitoring -Nutrition; nothing by mouth DISPOSITION - anticipate discharge to senior living after the hospital stay.
--- NOTE | 2018-04-13 10:55 | PN ---
DATE OF SERVICE: 04/13/2018 SUBJECTIVE: Kodak had 600 out of his ostomy. G-tube was plugged during the night, so he had a total of 400 out after it was flushed and manipulated. EMEKA drains have put out 35, 10, and 5 mL. Breakfast, lunch, and dinner consumed 0%. REVIEW OF SYSTEMS: Remainder of review of systems negative for any pertinent positives and negatives. OBJECTIVE: GENERAL: Kodak Silva is a 77-year-old male. He is alert and orientated today. VITAL SIGNS: TPR is 95.4, 87, 16. Blood pressure 140/75. HEENT: Negative. NECK: Negative. HEART: Regular rate and rhythm. LUNGS: Revealed decreased breath sounds. He has some coarse loose rhonchi in the upper lobes. Sounds like he just needs to cough. ABDOMEN: Wound VAC in place. It is due to be changed today. Colostomy intact. Gastrostomy tube intact to drainage. It is clamped right now. EXTREMITIES: SCDs on, and there is no peripheral edema. ASSESSMENT: 1. Insertion of left subclavian triple lumen. a. Exploratory laparotomy, drainage of intraabdominal abscess, small bowel resection, small-bowel strictureplasty, placement of Vicryl mesh. 2. Closure of fascial dehiscence with evisceration of intraabdominal abscess and focal small-bowel stricture, focal areas of small bowel deserosalization. Insertion of subclavian triple lumen. Date of surgery 04/07/2017. Surgeon, Fredi Linn MD. PLAN: 1. Continue same TPN rate and content. 2. K-Phos 75 mmol IV with minimal IV solution. 3. G-tube change to clamping 3 hours, unclamping 1 hour, flush with 15 mL before clamping and p.r.n. to make sure it is draining. 4. Check CBC, CMP, mag, phos in a.m. 5. We will evaluate p.r.n. or in a.m. If Kodak would start to eat and get an adequate nutrition, TPN will be decreased and plan discharge later this week. Rula Morley PA-C /[phone]
[2018-04-13] MEDS: Ciprofloxacin in D5W 400 MG in Premix Bag 1 BAG IV SCH ×4 (11:46→23:10)
[2018-04-14] MEDS: Acetaminophen Soln 650 MG/20.3 ML UD Cup GTUBE SCH ×4 (00:30→19:55)
[2018-04-14] MEDS: Doxycycline 100 MG in Sodium Chloride 0.9% 100 ML IV SCH ×2 (01:34→13:37)
[2018-04-14] MEDS: 1: AA 5%/Calcium/D15W/Lytes 1,000 ML with MVI, Adult with Vitamin K 10 ML, Chromium/Copp IV SCH ×6 (03:07→16:57)
[2018-04-14] MEDS: Pantoprazole 40 MG Vial IV SCH (05:41)
[2018-04-14] MEDS: Albuterol/Ipratropium 3.0-0.5 MG/3 ML Neb Soln NEB SCH ×4 (07:07→20:21)
[2018-04-14] MEDS: Lactobacillus Rhamnosus GG (Probiotic) Cap PO SCH ×2 (08:36→20:21)
[2018-04-14] MEDS: Magnesium Sulfate/Water 2 GM in Premix Bag 1 BAG IV SCH ×3 (08:37→20:21)
[2018-04-14] MEDS ORDERED: Erythromycin Base 250 MG Cap.CR PO SCH (09:00)
[2018-04-14] MEDS ORDERED: Furosemide 40 MG/4 ML VIAL IVPUSH ONE (10:00)
[2018-04-14] MEDS: Erythromycin Base 250 MG Cap.CR PO SCH ×3 (11:20→20:42)
[2018-04-14] MEDS: Ciprofloxacin in D5W 400 MG in Premix Bag 1 BAG IV SCH ×2 (11:20)
--- NOTE | 2018-04-14 13:53 | CRLCR ---
INDICATION: Right great toe pain and swelling COMPARISON: none TECHNIQUE: Three-view right foot FINDINGS: There is bone destruction involving the tuft of the 1st distal phalanx. The interphalangeal joint and 1st MTP joint remain intact. No abnormalities are noted within the metatarsals or hindfoot. IMPRESSION: Destructive changes within the tuft of the 1st distal phalanx. Findings suggest osteomyelitis. Dictated by Juan Cool MD @ 04/14/2018 1:52:02 PM Dictated by: Juan Cool MD @ 04/14/2018 13:52:13 (Electronically Signed)
--- NOTE | 2018-04-14 15:31 | PCM.PN ---
- General Info Date of Service: 04/14/18 Subjective Update: Mr. Silva has continued to slowly improve since yesterday, modest improvement in strength and oral intake. Reports increased pain in his right first toe. White blood cell count is improved to 12,000, he has remained hemodynamically stable and afebrile. Functional Status: Reports: Pain Controlled - Review of Systems General: Reports: Weakness. Denies: Fever, Chills Pulmonary: Reports: No Symptoms Cardiovascular: Reports: No Symptoms Gastrointestinal: Reports: Abdominal Pain, Decreased Appetite, Flatus. Denies: Diarrhea, Difficulty Swallowing, Nausea, Vomiting Musculoskeletal: Reports: Other (Increased pain right first toe) - Patient Data Vitals - Most Recent: Last Vital Signs Temp 97.8 F 04/14/18 11:34 Pulse 88 04/14/18 11:34 Resp 16 04/14/18 11:34 BP 148/68 H 04/14/18 11:34 Pulse Ox 98 04/14/18 11:34 Weight - Most Recent: 148 lb I&O - Last 24 Hours: Intake & Output 04/14/18 04/14/18 04/14/18 06:59 14:59 22:59 Intake Total 1637 Output Total 1364 Balance 273 Lab Results Last 24 Hours: Laboratory Results - last 24 hr 04/14/18 04/14/18 Range/Units 04:29 04:29 WBC 12.0 H (4.5-11.0) K/uL RBC 3.23 L (4.30-5.90) M/uL Hgb 9.4 L (12.0-15.0) g/dL Hct 30.0 L (40.0-54.0) % MCV 93 (80-98) fL MCH 29 (27-31) pg MCHC 31 L (32-36) % Plt Count 218 (150-400) K/uL Sodium 144 (140-148) mmol/L Potassium 4.4 (3.6-5.2) mmol/L Chloride 109 H (100-108) mmol/L Carbon Dioxide 25 (21-32) mmol/L Anion Gap 14.4 H (5.0-14.0) mmol/L BUN 32 H (7-18) mg/dL Creatinine 0.9 (0.8-1.3) mg/dL Est Cr Clr Drug Dosing 66.14 mL/min Estimated GFR (MDRD) > 60 (>60) Glucose 108 H (74-106) mg/dL Calcium 7.9 L (8.5-10.1) mg/dL Phosphorus 4.0 (2.5-4.9) mg/dL Magnesium 1.4 L D (1.8-2.4) mg/dL Total Bilirubin 0.5 (0.2-1.0) mg/dL AST 28 (15-37) U/L ALT 41 (12-78) U/L Alkaline Phosphatase 141 H (46-116) U/L NT-Pro-B Natriuret Pep 824 H (5-450) pg/mL Total Protein 5.6 L (6.4-8.2) g/dL Albumin 2.5 L (3.4-5.0) g/dL Globulin 3.1 (2.3-3.5) g/dL Albumin/Globulin Ratio 0.8 L (1.2-2.2) Med Orders - Current: Current Medications Acetaminophen (Tylenol) 1,000 mg GTUBE Q6H [facility] Last Admin: 04/14/18 13:14 Dose: 1,000 mg Albuterol (Proventil Neb Soln) 2.5 mg NEB Q4H PRN PRN Reason: Dyspnea Last Admin: 04/05/18 18:03 Dose: 2.5 mg Albuterol/Ipratropium (Duoneb 3.0-0.5 Mg/3 Ml) 3 ml NEB QIDRT [facility] Last Admin: 04/14/18 15:06 Dose: 3 ml Dimethicone/Zinc Oxide (Rash Relief-Zinc Oxide [place]) 0 gm TOP ASDIRECTED PRN PRN Reason: Rash Last Admin: 03/28/18 16:55 Dose: 1 spray Diphenhydramine HCl (Benadryl) 25 mg IVPUSH Q6H PRN PRN Reason: Itching Last Admin: 04/09/18 12:19 Dose: 25 mg Erythromycin (Jh-Tab) 250 mg PO TID@0730,1630,2130 [facility] Last Admin: 04/14/18 11:20 Dose: 250 mg Heparin Sodium (Porcine) (Heparin Lock Flush 100 Units/Ml) 500 units FLUSH ASDIRECTED PRN PRN Reason: IV Use Last Admin: 04/12/18 16:33 Dose: 500 units Hydroxyzine HCl (Vistaril) 50 mg IM Q6H PRN PRN Reason: Pain Multivitamins/Minerals 10 ml/Chromium/Copper/Manganese/Seleni/Zn 1 ml/ Amino Ac/ Electrol/Dextrose/Calcium 1,011 mls @ 82 mls/hr IV .BY DURATION [facility] Last Admin: 04/13/18 14:51 Dose: 82 mls/hr Amino Ac/Electrol/Dextrose/Calcium (Clinimix E 15) 1,000 mls @ 82 mls/hr IV .BY DURATION [facility] Last Admin: 04/14/18 03:07 Dose: 82 mls/hr Sodium Chloride (Normal Saline) 1,000 mls @ 0 mls/hr IV ASDIRECTED [facility] Doxycycline Hyclate 100 mg/ (Sodium Chloride) 100 mls @ 100 mls/hr IV Q12H [facility] Last Admin: 04/14/18 13:37 Dose: 100 mls/hr Ciprofloxacin/Dextrose 400 mg/ (Premix) 200 mls @ 200 mls/hr IV Q12H [facility] Last Admin: 04/14/18 11:20 Dose: 200 mls/hr Magnesium Sulfate 2 gm/ Premix 50 mls @ 25 mls/hr IV Q6H [facility] Stop: 04/17/18 04:59 Last Admin: 04/14/18 08:37 Dose: 25 mls/hr Lactobacillus Rhamnosus (Culturelle) 1 cap PO BID [facility] Last Admin: 04/14/18 08:36 Dose: 1 cap Pantoprazole Sodium (Protonix Iv) 40 mg IV Q24H [facility] Last Admin: 04/14/18 05:41 Dose: 40 mg Tramadol HCl (Ultram) 25 - 50 mg PO Q6H PRN PRN Reason: Pain Last Admin: 04/13/18 20:18 Dose: 50 mg Discontinued Medications Acetaminophen (Tylenol) 650 mg RECTAL Q4H PRN PRN Reason: Fever Acetaminophen (Tylenol) 650 mg PO Q4H PRN PRN Reason: Pain/Fever Last Admin: 04/05/18 20:14 Dose: 650 mg Albuterol/Ipratropium (Duoneb 3.0-0.5 Mg/3 Ml) 3 ml NEB Q4H PRN PRN Reason: Dyspnea Albuterol/Ipratropium (Duoneb 3.0-0.5 Mg/3 Ml) 3 ml NEB ONETIME ONE Stop: 04/07/18 10:31 Last Admin: 04/07/18 10:26 Dose: Not Given Bupivacaine HCl (Marcaine 0.5%) Confirm Administered Dose 50 ml .ROUTE .STK-MED ONE Stop: 04/07/18 12:06 Ropivacaine 34 ml/Dexamethasone 8 mg/Epinephrine HCl 0.4 mg/ Sodium Chloride 43.6 ml 0 ml NERVRT ASDIRECTED [facility] Last Admin: 04/07/18 16:01 Dose: 80 syringe Dexamethasone (Dexamethasone) Confirm Administered Dose 4 mg .ROUTE .STK-MED ONE Stop: 03/18/18 19:48 Dexamethasone (Dexamethasone) Confirm Administered Dose 4 mg .ROUTE .STK-MED ONE Stop: 04/07/18 10:56 Epinephrine HCl (Adrenalin) Confirm Administered Dose 1 mg .ROUTE .STK-MED ONE Stop: 03/18/18 21:07 Erythromycin Ethylsuccinate (Eryped 400) 125 mg PO Q6H [facility] Last Admin: 04/07/18 15:14 Dose: Not Given Fentanyl (Sublimaze) Confirm Administered Dose 250 mcg .ROUTE .STK-MED ONE Stop: 03/18/18 19:48 Fentanyl (Sublimaze) Confirm Administered Dose 250 mcg .ROUTE .STK-MED ONE Stop: 04/02/18 12:59 Fentanyl (Sublimaze) Confirm Administered Dose 250 mcg .ROUTE .STK-MED ONE Stop: 04/07/18 10:56 Furosemide (Lasix) 20 mg IVPUSH ONETIME ONE Stop: 03/23/18 09:46 Last Admin: 03/23/18 10:18 Dose: 20 mg Furosemide (Lasix) 20 mg IVPUSH NOW ONE Stop: 03/25/18 10:01 Last Admin: 03/25/18 10:17 Dose: 20 mg Furosemide (Lasix) 20 mg IVPUSH ONETIME ONE Stop: 03/26/18 09:16 Last Admin: 03/26/18 09:10 Dose: 20 mg Furosemide (Lasix) 20 mg IVPUSH ONETIME ONE Stop: 03/26/18 16:01 Last Admin: 03/26/18 18:28 Dose: Not Given Furosemide (Lasix) 20 mg IVPUSH NOW ONE Stop: 03/27/18 10:01 Last Admin: 03/27/18 10:26 Dose: 20 mg Furosemide (Lasix) 20 mg IVPUSH ONETIME ONE Stop: 03/30/18 13:11 Last Admin: 03/30/18 13:36 Dose: 20 mg Furosemide (Lasix) 20 mg IVPUSH NOW ONE Stop: 03/31/18 11:55 Last Admin: 03/31/18 13:04 Dose: 20 mg Furosemide (Lasix) 20 mg IVPUSH NOW ONE Stop: 04/01/18 12:05 Last Admin: 04/01/18 12:43 Dose: 20 mg Furosemide (Lasix) 20 mg IVPUSH NOW ONE Stop: 04/02/18 15:46 Last Admin: 04/02/18 15:53 Dose: 20 mg Furosemide (Lasix) 40 mg IVPUSH NOW ONE Stop: 04/03/18 09:01 Last Admin: 04/03/18 09:45 Dose: 40 mg Furosemide (Lasix) 40 mg IVPUSH NOW ONE Stop: 04/04/18 15:31 Last Admin: 04/04/18 15:55 Dose: 40 mg Furosemide (Lasix) 40 mg IVPUSH NOW ONE Stop: 04/05/18 09:01 Last Admin: 04/05/18 10:15 Dose: 40 mg Furosemide (Lasix) 40 mg IVPUSH ONETIME ONE Stop: 04/08/18 12:01 Last Admin: 04/08/18 11:01 Dose: 40 mg Furosemide (Lasix) 40 mg IVPUSH ONETIME STA Stop: 04/09/18 06:48 Last Admin: 04/09/18 10:16 Dose: Not Given Furosemide (Lasix) 20 mg IVPUSH ONETIME ONE Stop: 04/09/18 12:01 Last Admin: 04/09/18 13:43 Dose: Not Given Furosemide (Lasix) 40 mg IVPUSH ONETIME STA Stop: 04/09/18 10:08 Last Admin: 04/09/18 10:09 Dose: 40 mg Furosemide (Lasix) Confirm Administered Dose 40 mg .ROUTE .STK-MED ONE Stop: 04/09/18 10:08 Last Admin: 04/09/18 10:16 Dose: 40 mg Furosemide (Lasix) 40 mg IVPUSH ONETIME ONE Stop: 04/09/18 16:01 Last Admin: 04/09/18 15:54 Dose: 40 mg Furosemide (Lasix) 40 mg IVPUSH ONETIME ONE Stop: 04/10/18 12:01 Last Admin: 04/10/18 14:03 Dose: 40 mg Furosemide (Lasix) 20 mg IVPUSH ONETIME ONE Stop: 04/10/18 20:01 Last Admin: 04/10/18 21:10 Dose: 20 mg Furosemide (Lasix) 40 mg IVPUSH NOW ONE Stop: 04/11/18 11:31 Last Admin: 04/11/18 12:58 Dose: 40 mg Furosemide (Lasix) 40 mg IVPUSH NOW ONE Stop: 04/12/18 11:21 Last Admin: 04/12/18 13:28 Dose: 40 mg Furosemide (Lasix) Confirm Administered Dose 40 mg .ROUTE .STK-MED ONE Stop: 04/12/18 13:27 Last Admin: 04/12/18 13:52 Dose: Not Given Furosemide (Lasix) 40 mg IVPUSH NOW ONE Stop: 04/13/18 08:31 Last Admin: 04/13/18 08:42 Dose: 40 mg Furosemide (Lasix) 40 mg IVPUSH NOW ONE Stop: 04/14/18 10:01 Last Admin: 04/14/18 10:09 Dose: 40 mg Glycopyrrolate (Robinul) Confirm Administered Dose 1 mg .ROUTE .STK-MED ONE Stop: 03/18/18 19:48 Glycopyrrolate (Robinul) Confirm Administered Dose 1 mg .ROUTE .STK-MED ONE Stop: 04/07/18 10:56 Heparin Sodium (Porcine) (Heparin Sodium) Confirm Administered Dose 5,000 units .ROUTE .STK-MED ONE Stop: 03/18/18 19:51 Heparin Sodium (Porcine) (Heparin Lock Flush 100 Units/Ml) Confirm Administered Dose 500 units .ROUTE .STK-MED ONE Stop: 03/22/18 12:17 Last Admin: 03/22/18 12:30 Dose: Not Given Heparin Sodium (Porcine) (Heparin Sodium) Confirm Administered Dose 5,000 units .ROUTE .STK-MED ONE Stop: 03/24/18 19:52 Last Admin: 03/24/18 20:33 Dose: 5,000 units Heparin Sodium (Porcine) (Heparin Lock Flush 100 Units/Ml) Confirm Administered Dose 1,000 units .ROUTE .STK-MED ONE Stop: 04/07/18 12:06 Last Admin: 04/07/18 14:30 Dose: 500 units Hydrocortisone Sodium Succinate (Solu-Cortef) 100 mg IVPUSH Q12H [facility] Last Admin: 03/28/18 20:15 Dose: 100 mg Hydrocortisone Sodium Succinate (Solu-Cortef) 100 mg IVPUSH DAILY [facility] Last Admin: 03/30/18 13:39 Dose: Not Given Hydromorphone HCl (Dilaudid) 0.5 mg IVPUSH ONETIME ONE Stop: 03/18/18 17:43 Last Admin: 03/18/18 17:47 Dose: 0.5 mg Hydromorphone HCl (Dilaudid) 1 mg IVPUSH ONETIME ONE Stop: 03/18/18 18:18 Last Admin: 03/18/18 18:27 Dose: 1 mg Hydroxyzine HCl (Vistaril) 100 mg IM Q6H PRN PRN Reason: Pain Last Admin: 04/11/18 08:49 Dose: 100 mg Sodium Chloride (Normal Saline) 1,000 mls @ 1,000 mls/hr IV ASDIRECTED [facility] Last Admin: 03/18/18 17:47 Dose: 1,000 mls/hr Sodium Chloride (Normal Saline) 1,000 mls @ 999 mls/hr IV ASDIRECTED [facility] Last Admin: 03/18/18 19:31 Dose: 999 mls/hr Meropenem 500 mg/ Sodium (Chloride) 50 mls @ 100 mls/hr IV ONETIME ONE Stop: 03/18/18 19:09 Last Admin: 03/18/18 19:01 Dose: 100 mls/hr Sodium Chloride (Normal Saline) Confirm Administered Dose 50 mls @ as directed .ROUTE .STK-MED ONE Stop: 03/18/18 19:40 Last Admin: 03/18/18 20:19 Dose: Not Given Aztreonam 2 gm/ Sodium (Chloride) 50 mls @ 100 mls/hr IV ONETIME ONE Stop: 03/18/18 20:01 Last Admin: 03/18/18 20:44 Dose: 100 mls/hr Meropenem 500 mg/ Sodium (Chloride) 50 mls @ 100 mls/hr IV ONETIME ONE Stop: 03/18/18 20:00 Last Admin: 03/18/18 19:40 Dose: 100 mls/hr Sodium Chloride (Normal Saline) Confirm Administered Dose 250 mls @ as directed .ROUTE .[facility] ONE Stop: 03/18/18 19:59 Lactated Ringer's (Ringers, Lactated) Confirm Administered Dose 1,000 mls @ as directed .ROUTE .[facility] ONE Stop: 03/18/18 19:59 Sodium Chloride (Normal Saline) Confirm Administered Dose 500 mls @ as directed .ROUTE .[facility] ONE Stop: 03/18/18 19:59 Norepinephrine Bitartrate 8 mg (/ Dextrose/Water) 258 mls @ 3.87 mls/hr IV TITRATE [facility]; Protocol Last Admin: 03/19/18 11:45 Dose: 12 mcg/min, 23.22 mls/hr Lactated Ringer's (Ringers, Lactated) Confirm Administered Dose 1,000 mls @ as directed .ROUTE .[facility] ONE Stop: 03/18/18 21:42 Propofol (Diprivan 100 Ml) 100 mls @ 2.082 mls/hr IV TITRATE [facility]; Protocol Last Titration: 03/27/18 06:35 Dose: 10 mcg/kg/min, 4.164 mls/hr Aztreonam 1 gm/ Sodium (Chloride) 50 mls @ 100 mls/hr IV Q8H [facility] Last Admin: 03/19/18 05:29 Dose: 100 mls/hr Potassium Chloride/Dextrose/Sod Cl (D5 1/2 Ns W/ 20 Meq/L Kcl) 1,000 mls @ 150 mls/hr IV ASDIRECTED [facility] Last Admin: 03/18/18 23:11 Dose: 150 mls/hr Meropenem 1 gm/ Sodium (Chloride) 50 mls @ 100 mls/hr IV Q12H [facility] Stop: 03/29/18 22:00 Last Admin: 03/29/18 20:10 Dose: 100 mls/hr Lactated Ringer's (Ringers, Lactated) 1,000 mls @ 500 mls/hr IV ASDIRECTED [facility] Last Admin: 03/19/18 01:23 Dose: 500 mls/hr Vasopressin 100 units/ (Dextrose/Water) 255 mls @ 1.53 mls/hr IV TITRATE [facility]; Protocol Stop: 03/21/18 13:00 Last Titration: 03/21/18 11:03 Dose: 0.02 units/min, 3.06 mls/hr Lactated Ringer's (Ringers, Lactated) 1,000 mls @ 500 mls/hr IV BOLUS [facility] Stop: 03/19/18 05:29 Last Admin: 03/19/18 04:02 Dose: 500 mls/hr Aztreonam/Dextrose 1 gm/ (Premix) 50 mls @ 100 mls/hr IV Q8H [facility] Last Admin: 03/28/18 05:26 Dose: 100 mls/hr Lactated Ringer's (Ringers, Lactated) 1,000 mls @ 500 mls/hr IV .[facility] ONE Stop: 03/19/18 14:59 Last Admin: 03/19/18 14:27 Dose: 500 mls/hr Lactated Ringer's (Ringers, Lactated) 1,000 mls @ 150 mls/hr IV ASDIRECTED [facility] Last Admin: 03/21/18 11:53 Dose: 150 mls/hr Norepinephrine Bitartrate 8 mg (/ Dextrose/Water) 250 mls @ 3.75 mls/hr IV TITRATE [facility]; Protocol Last Titration: 03/27/18 09:04 Dose: 4 mcg/min, 7.5 mls/hr Magnesium Sulfate 2 gm/ Premix 50 mls @ 25 mls/hr IV Q6H [facility] Stop: 03/20/18 17:59 Last Admin: 03/20/18 16:30 Dose: 25 mls/hr Vancomycin HCl 1.25 gm/ Sodium (Chloride) 250 mls @ 170 mls/hr IV Q24H [facility] Last Admin: 03/22/18 10:06 Dose: 170 mls/hr Vasopressin 40 units/ Dextrose (/Water) 100 mls @ 3 mls/hr IV TITRATE [facility]; Protocol Last Titration: 03/23/18 01:00 Dose: 0 units/min, 0 mls/hr Potassium Chloride 20 meq/ (Premix) 100 mls @ 50 mls/hr IV Q2H [facility] Stop: 03/21/18 22:59 Last Admin: 03/21/18 22:20 Dose: 50 mls/hr Potassium Chloride 20 meq/ (Premix) 100 mls @ 50 mls/hr IV Q2H [facility] Stop: 03/22/18 12:59 Last Admin: 03/22/18 11:30 Dose: 50 mls/hr Potassium Chloride 20 meq/ (Premix) 100 mls @ 50 mls/hr IV Q2H [facility] Stop: 03/22/18 17:29 Last Admin: 03/22/18 16:13 Dose: 50 mls/hr Potassium Chloride (Kcl 20 Meq In Water 100 Ml) 100 mls @ 50 mls/hr IV Q2H [facility] Stop: 03/23/18 01:59 Last Admin: 03/23/18 00:53 Dose: 50 mls/hr Potassium Chloride 40 meq/ (Premix) 100 mls @ 25 mls/hr IV ONETIME ONE Stop: 03/23/18 14:29 Last Admin: 03/23/18 10:31 Dose: 25 mls/hr Vancomycin HCl 1.4 gm/ Sodium (Chloride) 250 mls @ 170 mls/hr IV Q24H [facility] Last Admin: 03/24/18 11:13 Dose: 170 mls/hr Multivitamins/Minerals 10 ml/Chromium/Copper/Manganese/Seleni/Zn 1 ml/ Amino Ac/ Electrol/Dextrose/Calcium 1,011 mls @ 75 mls/hr IV .BY DURATION [facility] Last Admin: 03/25/18 22:34 Dose: 75 mls/hr Amino Ac/Electrol/Dextrose/Calcium (Clinimix E 15) 1,000 mls @ 75 mls/hr IV .BY DURATION [facility] Last Admin: 03/25/18 08:11 Dose: 75 mls/hr Vasopressin 100 units/ (Dextrose/Water) 255 mls @ 1.53 mls/hr IV TITRATE [facility]; Protocol Last Titration: 03/25/18 11:51 Dose: 0 units/min, 0 mls/hr Potassium Chloride 20 meq/ (Premix) 100 mls @ 50 mls/hr IV Q2H [facility] Stop: 03/24/18 13:59 Last Admin: 03/24/18 12:13 Dose: 50 mls/hr Multivitamins/Minerals 10 ml/Chromium/Copper/Manganese/Seleni/Zn 1 ml/ Amino Ac/ Electrol/Dextrose/Calcium 1,011 mls @ 75 mls/hr IV .BY DURATION [facility] Last Admin: 03/29/18 06:48 Dose: 75 mls/hr Amino Ac/Electrol/Dextrose/Calcium (Clinimix E 07/08) 1,000 mls @ 75 mls/hr IV .BY DURATION [facility] Last Admin: 03/29/18 20:12 Dose: 75 mls/hr Heparin Sodium (Porcine) 5,000 (units/ Sodium Chloride) 501 mls @ 5 mls/hr IV ASDIRECTED [facility] Last Admin: 03/27/18 12:50 Dose: 5 mls/hr Sodium Chloride (Normal Saline) 1,000 mls @ 50 mls/hr IV ASDIRECTED [facility] Last Admin: 03/30/18 13:36 Dose: 50 mls/hr Dextrose/Sodium Chloride (Dextrose 5%-1/2 Ns) 1,000 mls @ 75 mls/hr IV ASDIRECTED [facility] Last Admin: 03/31/18 23:53 Dose: 75 mls/hr Albumin Human (Albumin 25%) 25 gm in 100 mls @ 25 mls/hr IV Q24H [facility] Stop: 04/02/18 12:59 Last Admin: 04/01/18 08:13 Dose: 25 mls/hr Potassium Phosphate 20 mmole/ (Sodium Chloride) 256.6667 mls @ 85 mls/hr IV Q3H [facility] Stop: 04/01/18 18:59 Last Admin: 04/01/18 18:37 Dose: 85 mls/hr Dextrose/Sodium Chloride (Dextrose 5%-1/2 Ns) 1,000 mls @ 80 mls/hr IV ASDIRECTED [facility] Last Admin: 04/03/18 06:40 Dose: 80 mls/hr Cefazolin Sodium/Dextrose 2 gm (/ Premix) 50 mls @ 100 mls/hr IV ONCALL ONE Stop: 04/02/18 11:59 Last Admin: 04/02/18 13:59 Dose: 100 mls/hr Potassium Acetate 20 meq/ (Sodium Chloride) 110 mls @ 55 mls/hr IV Q2H [facility] Stop: 04/02/18 11:59 Last Admin: 04/02/18 10:10 Dose: 55 mls/hr Magnesium Sulfate 2 gm/ Premix 50 mls @ 25 mls/hr IV Q6H [facility] Stop: 04/05/18 07:59 Last Admin: 04/03/18 12:11 Dose: 25 mls/hr Albumin Human (Albumin 25%) 25 gm in 100 mls @ 25 mls/hr IV ONETIME ONE Stop: 04/02/18 17:59 Last Admin: 04/02/18 15:30 Dose: 25 mls/hr Potassium Chloride 20 meq/Lidocaine HCl 2 ml/ Sodium Chloride 112 mls @ 56 mls/ hr IV Q2H [facility] Stop: 04/03/18 17:59 Last Admin: 04/03/18 17:04 Dose: 56 mls/hr Magnesium Sulfate 2 gm/ Premix 50 mls @ 25 mls/hr IV Q6H [facility] Stop: 04/08/18 03:59 Last Admin: 04/07/18 15:14 Dose: Not Given Potassium Phosphate 15 mmole/ (Sodium Chloride) 255 mls @ 128 mls/hr IV Q2H [facility] Stop: 04/06/18 13:59 Last Admin: 04/06/18 12:49 Dose: 128 mls/hr Dextrose/Lactated Ringer's (Dextrose 5%-Lactated Ringers) 1,000 mls @ 100 mls/ hr IV ASDIRECTED [facility] Last Admin: 04/07/18 08:44 Dose: 100 mls/hr Meropenem 500 mg/ Sodium (Chloride) 50 mls @ 100 mls/hr IV ONCALL ONE Stop: 04/07/18 11:59 Last Admin: 04/07/18 15:13 Dose: Not Given Linezolid (Zyvox) Confirm Administered Dose 300 mls @ as directed .ROUTE .STK- MED ONE Stop: 04/07/18 15:26 Lactated Ringer's (Ringers, Lactated) Confirm Administered Dose 1,000 mls @ as directed .ROUTE .STK-MED ONE Stop: 04/07/18 15:35 Linezolid 600 mg/ Premix 300 mls @ 300 mls/hr IV ONETIME ONE Stop: 04/07/18 17:29 Last Admin: 04/07/18 16:25 Dose: 300 mls/hr Dextrose/Lactated Ringer's (Dextrose 5%-Lactated Ringers) 1,000 mls @ 175 mls/ hr IV ASDIRECTED [facility] Last Admin: 04/08/18 06:21 Dose: 175 mls/hr Linezolid 600 mg/ Premix 300 mls @ 300 mls/hr IV Q12H [facility] Last Admin: 04/10/18 03:46 Dose: 300 mls/hr Meropenem 500 mg/ Sodium (Chloride) 50 mls @ 100 mls/hr IV Q8H [facility] Last Admin: 04/11/18 06:23 Dose: 100 mls/hr Magnesium Sulfate 2 gm/ Premix 50 mls @ 25 mls/hr IV Q6H [facility] Stop: 04/09/18 13:59 Last Admin: 04/09/18 11:40 Dose: 25 mls/hr Dextrose/Lactated Ringer's (Dextrose 5%-Lactated Ringers) 1,000 mls @ 100 drops /hr IV ASDIRECTED [facility] Last Admin: 04/09/18 11:39 Dose: 100 drops/hr Albumin Human (Albumin 25%) 25 gm in 100 mls @ 25 mls/hr IV Q24H [facility] Stop: 04/12/18 13:59 Last Admin: 04/12/18 09:28 Dose: 25 mls/hr Albumin Human (Albumin 25%) 25 gm in 100 mls @ 25 mls/hr IV Q24H [facility] Stop: 04/12/18 17:59 Last Admin: 04/12/18 14:19 Dose: 25 mls/hr Dextrose/Lactated Ringer's (Dextrose 5%-Lactated Ringers) 1,000 mls @ 25 mls/ hr IV ASDIRECTED [facility] Potassium Phosphate 22.5 mmole (/ Sodium Chloride) 257.5 mls @ 86 mls/hr IV Q3H [facility] Stop: 04/10/18 15:59 Last Admin: 04/10/18 14:47 Dose: 86 mls/hr Calcium Gluconate 1 gm/ Sodium (Chloride) 110 mls @ 100 mls/hr IV Q6H [facility] Stop: 04/10/18 18:05 Last Admin: 04/10/18 16:21 Dose: 100 mls/hr Acetaminophen 1,000 mg/ Premix 100 mls @ 400 mls/hr IV Q6H [facility] Stop: 04/12/18 06:44 Last Admin: 04/12/18 05:47 Dose: 400 mls/hr Potassium Chloride 20 meq/ (Premix) 100 mls @ 50 mls/hr IV Q2H [facility] Stop: 04/12/18 14:59 Last Admin: 04/12/18 13:29 Dose: 50 mls/hr Potassium Chloride 40 meq/ (Premix) 100 mls @ 25 mls/hr IV ONETIME ONE Stop: 04/12/18 12:19 Potassium Chloride 40 meq/ (Premix) 100 mls @ 25 mls/hr IV ONETIME ONE Stop: 04/12/18 20:59 Last Admin: 04/12/18 17:45 Dose: 25 mls/hr Potassium Phosphate 25 mmole/ (Sodium Chloride) 108.3333 mls @ 27 mls/hr IV Q4H [facility] Stop: 04/13/18 21:29 Last Admin: 04/13/18 18:13 Dose: 27 mls/hr Insulin Human Lispro (Humalog) 0 unit SUBCUT Q6H [facility]; Protocol Last Admin: 03/30/18 16:32 Dose: Not Given Insulin Human Lispro (Humalog) 0 unit SUBCUT Q6H [facility]; Protocol Last Admin: 03/31/18 03:52 Dose: Not Given Insulin Human Lispro (Humalog) 0 unit SUBCUT QIDACANDBED [facility]; Protocol Stop: 04/12/18 11:01 Last Admin: 03/31/18 13:17 Dose: Not Given Lidocaine/Epinephrine (Xylocaine 1% With Epinephrine 1:100,000) Confirm Administered Dose 50 ml .ROUTE .STK-MED ONE Stop: 04/07/18 12:06 Linezolid (Zyvox) 600 mg IRR .STK-MED ONE Stop: 04/07/18 16:06 Last Admin: 04/07/18 16:05 Dose: 600 mg Loperamide HCl (Imodium) 2 mg PO ASDIRECTED PRN PRN Reason: DIARRHEA Melatonin (Melatonin) 9 mg PO BEDTIME [facility] Last Admin: 04/06/18 21:40 Dose: 9 mg Meropenem (Merrem) Confirm Administered Dose 500 mg .ROUTE .STK-MED ONE Stop: 03/18/18 19:40 Last Admin: 03/18/18 20:19 Dose: Not Given Meropenem (Merrem) Confirm Administered Dose 500 mg .ROUTE .STK-MED ONE Stop: 04/07/18 14:38 Last Admin: 04/07/18 16:00 Dose: 500 mg Meropenem (Merrem) Confirm Administered Dose 500 mg .ROUTE .STK-MED ONE Stop: 04/07/18 15:08 Last Admin: 04/07/18 16:05 Dose: 500 mg Midazolam HCl (Versed 1 Mg/Ml) Confirm Administered Dose 2 mg .ROUTE .STK-MED ONE Stop: 04/02/18 12:59 Morphine Sulfate (Morphine) 4 mg IVPUSH Q2H PRN PRN Reason: Pain Last Admin: 03/29/18 07:34 Dose: 4 mg Morphine Sulfate (Morphine [employer] 150 Mg In 30 Ml) 0 mg IV ASDIRECTED PRN; Protocol PRN Reason: Pain Last Admin: 04/07/18 10:00 Dose: 150 mg Morphine Sulfate (Morphine [employer] 150 Mg In 30 Ml) 0 mg IV ASDIRECTED PRN; Protocol PRN Reason: Pain Naloxone HCl (Narcan) 0.1 mg IV ASDIRECTED PRN PRN Reason: decreased respiratory rate Neostigmine Methylsulfate (Neostigmine) Confirm Administered Dose 5 mg .ROUTE .STK-MED ONE Stop: 03/18/18 19:48 Neostigmine Methylsulfate (Neostigmine) Confirm Administered Dose 5 mg .ROUTE .STK-MED ONE Stop: 04/07/18 10:56 Non-Formulary Medication (Total Parenteral Nutrition, Central) 1,000 ml .XX .Continue Order [facility]; Protocol Stop: 03/24/18 11:31 Non-Formulary Medication (Total Parenteral Nutrition, Central) 1,000 ml .XX .Continue Order [facility]; Protocol Non-Formulary Medication (Total Parenteral Nutrition, Central) 1,000 ml .XX .Continue Order [facility]; Protocol Non-Formulary Medication (Total Parenteral Nutrition, Central) 1,000 ml .XX .Continue Order [facility]; Protocol Stop: 03/28/18 12:00 Non-Formulary Medication (Total Parenteral Nutrition, Central) 1,000 ml .XX .Continue Order [facility] Stop: 04/08/18 08:01 Non-Formulary Medication (Total Parenteral Nutrition, Central) 1,000 ml .XX .Continue Order [facility] Stop: 04/09/18 10:00 Non-Formulary Medication (Total Parenteral Nutrition, Central) 1,000 ml .XX .Continue Order [facility] Stop: 04/10/18 10:00 Non-Formulary Medication (Total Parenteral Nutrition, Central) 1,000 ml .XX .Continue Order [facility] Stop: 04/11/18 10:00 Non-Formulary Medication (Total Parenteral Nutrition, Central) 1,000 ml .XX .Continue Order [facility] Stop: 04/12/18 12:00 Non-Formulary Medication (Total Parenteral Nutrition, Central) 1,000 ml .XX .Continue Order [facility] Stop: 04/13/18 12:00 Nystatin (Mycostatin) 5 ml PO QID [facility] Last Admin: 04/04/18 15:25 Dose: 5 ml Ondansetron HCl (Zofran) 4 mg IVPUSH ONETIME ONE Stop: 03/18/18 18:18 Last Admin: 03/18/18 18:27 Dose: 4 mg Ondansetron HCl (Zofran) Confirm Administered Dose 4 mg .ROUTE .STK-MED ONE Stop: 03/18/18 19:48 Ondansetron HCl (Zofran) Confirm Administered Dose 4 mg .ROUTE .STK-MED ONE Stop: 04/07/18 10:56 Oxycodone HCl (Oxycodone) 5 mg PO Q4H PRN PRN Reason: Pain (moderate 4-6) Last Admin: 04/06/18 05:19 Dose: 5 mg Pantoprazole Sodium (Protonix Iv) 40 mg IVPUSH DAILY [facility] Last Admin: 03/28/18 08:34 Dose: 40 mg Pantoprazole Sodium (Protonix) 40 mg PO ACBREAKFAST [facility] Last Admin: 04/07/18 08:10 Dose: 40 mg Phenylephrine HCl (Isaías-Synephrine) Confirm Administered Dose 10 mg .ROUTE .STK- MED ONE Stop: 03/18/18 20:05 Potassium Chloride (Klor-Con M20) 40 meq PO ONETIME ONE Stop: 04/03/18 13:16 Last Admin: 04/03/18 14:33 Dose: 40 meq Potassium Chloride (Klor-Con M20) 40 meq PO ONETIME ONE Stop: 04/03/18 17:01 Last Admin: 04/03/18 20:55 Dose: 40 meq Potassium Chloride (Klor-Con M20) 40 meq PO ONETIME ONE Stop: 04/04/18 09:01 Last Admin: 04/04/18 09:34 Dose: 40 meq Potassium Chloride (Klor-Con M20) 40 meq PO ONETIME ONE Stop: 04/04/18 17:01 Last Admin: 04/04/18 17:08 Dose: 40 meq Potassium Chloride (Klor-Con M20) 40 meq PO ONETIME ONE Stop: 04/05/18 09:01 Last Admin: 04/05/18 10:14 Dose: 40 meq Potassium Chloride (Klor-Con M20) 40 meq PO ONETIME ONE Stop: 04/05/18 17:01 Last Admin: 04/05/18 18:00 Dose: 40 meq Potassium Chloride (Klor-Con M20) 40 meq PO ONETIME ONE Stop: 04/13/18 08:31 Last Admin: 04/13/18 08:42 Dose: 40 meq Potassium Chloride (Klor-Con M20) 40 meq PO ONETIME ONE Stop: 04/13/18 13:01 Last Admin: 04/13/18 12:44 Dose: 40 meq Potassium Chloride (Klor-Con M20) 40 meq PO ONETIME ONE Stop: 04/13/18 17:01 Last Admin: 04/13/18 16:57 Dose: 40 meq Prednisone (Prednisone) 20 mg PO WITHBREAKFAST [facility] Last Admin: 03/30/18 08:59 Dose: 20 mg Propofol (Diprivan 20 Ml) Confirm Administered Dose 200 mg .ROUTE .STK-MED ONE Stop: 03/18/18 19:48 Propofol (Diprivan 20 Ml) Confirm Administered Dose 200 mg .ROUTE .STK-MED ONE Stop: 04/02/18 12:59 Propofol (Diprivan 20 Ml) Confirm Administered Dose 200 mg .ROUTE .STK-MED ONE Stop: 04/07/18 10:56 Rocuronium [place] (Zemuron) Confirm Administered Dose 50 mg .ROUTE .STK-MED ONE Stop: 03/18/18 19:48 Rocuronium [place] (Zemuron) Confirm Administered Dose 50 mg .ROUTE .STK-MED ONE Stop: 04/07/18 10:56 Succinylcholine Chloride (Quelicin) Confirm Administered Dose 200 mg .ROUTE .STK -MED ONE Stop: 03/18/18 19:48 Vancomycin HCl (Vancomycin) 1 gm IV .PHARMACY TO DOSE [facility] Stop: 03/21/18 16:00 - Exam General: Alert, Oriented, Cooperative, Mild Distress Lungs: Clear to Auscultation, Normal Respiratory Effort Cardiovascular: Regular Rate, Regular Rhythm, No Murmurs GI/Abdominal Exam: Soft, No Organomegaly, Tender. No: Distended, Guarding, Rigid, Rebound Extremities: Non-Tender, No Pedal Edema, Other Skin: Warm, Dry - Problem List Review Problem List Initiated/Reviewed/Updated: Yes - My Orders Last 24 Hours: My Active Orders 04/15/18 05:00 BASIC METABOLIC PANEL,BMP [CHEM] Timed CBC WITH AUTO DIFF [HEME] Timed MAGNESIUM [CHEM] Timed - Plan Plan:: ASSESSMENT AND PLAN WOUND DEHISCENCE WITH UNDERLYING ABSCESS - status post exploratory laparotomy . Seems to be slowly improving on a daily basis, more alert and interactive -Ciprofloxacin 400 mg IV every 12 hours - doxycycline 100 mg IV every 12 hours -Surgical follow-up per surgery team SIGMOID COLON PERFORATION RESULTING IN ACUTE ABDOMEN AND SEPTIC SHOCK - postop course complicated by wound dehiscence as above. He is receiving nutritional support via TPN. -Continue TPN initiated today -Post operative surgical care per surgical team -Pain control -Saline lock IV SEPTIC SHOCK - resolved ACUTE HYPOXIC RESPIRATORY FAILURE - respiratory status stable with diuresis -Coughing, deep breathing and suctioning as able -Furosemide daily OSTEOMYELITIS RIGHT FIRST TOE-pain and swelling have developed in the last 24 hours, x-ray of the toe shows evidence of osteomyelitis -MRI of the toe for further evaluation COPD - [id number] smoking history but no evidence for exacerbation at this time. -Nebulized albuterol as needed -Vigorous pulmonary toilet during the postoperative period HISTORY OF LUNG AND PROSTATE CARCINOMA - lung cancer felt to be stable, had been receiving treatment for management of prostate carcinoma prior to admission MAINTENANCE ISSUES -DVT prophylaxis; SCUDs -GI prophylaxis; Protonix 40 mg daily -Sorto catheter; placed at the time of surgery for strict intake and output monitoring -Nutrition; nothing by mouth DISPOSITION - anticipate discharge to half-way after the hospital stay.
[2018-04-14] MEDS: traMADol 50 MG Tab PO PRN (16:50)
[2018-04-14] MEDS: diphenhydrAMINE 50 MG/ML SDV IVPUSH PRN (20:42)
[2018-04-15] MEDS: traMADol 50 MG Tab PO PRN ×2 (00:04→20:27)
[2018-04-15] MEDS: Ciprofloxacin in D5W 400 MG in Premix Bag 1 BAG IV SCH ×6 (00:04→22:40)
[2018-04-15] MEDS: Acetaminophen Soln 650 MG/20.3 ML UD Cup GTUBE SCH ×4 (00:05→17:41)
[2018-04-15] MEDS: Doxycycline 100 MG in Sodium Chloride 0.9% 100 ML IV SCH ×2 (00:05→13:40)
[2018-04-15] MEDS: Magnesium Sulfate/Water 2 GM in Premix Bag 1 BAG IV SCH ×2 (02:49→08:34)
[2018-04-15] MEDS: 1: AA 5%/Calcium/D15W/Lytes 1,000 ML with MVI, Adult with Vitamin K 10 ML, Chromium/Copp IV SCH ×6 (04:56→15:16)
[2018-04-15] MEDS: Pantoprazole 40 MG Vial IV SCH (06:23)
[2018-04-15] MEDS: Albuterol/Ipratropium 3.0-0.5 MG/3 ML Neb Soln NEB SCH ×4 (07:19→20:27)
[2018-04-15] MEDS ORDERED: Central Total Parenteral Nutrition Bag SCH (07:45)
[2018-04-15] MEDS: Erythromycin Base 250 MG Cap.CR PO SCH ×3 (08:34→20:30)
[2018-04-15] MEDS: Lactobacillus Rhamnosus GG (Probiotic) Cap PO SCH ×2 (08:34→20:27)
--- NOTE | 2018-04-15 08:52 | PN ---
DATE OF SERVICE: 04/14/2018 The patient has been normochromic, and otherwise vital signs are stable. Oxygenation appeared to be satisfactory on some nasal cannula. He is complaining of some pain intermittently, but the precise indication is fairly nebulous. The G-tube is still putting out a fair bit, and we will continue clamping it 3 hours, then unclamping it 1 hour. Ostomy did put out around 100 mL, but my sense is he still has some degree of an ileus. Wound VAC was reapplied yesterday. Otherwise, labs show a white count of 12,000, hemoglobin 9.4. Chemistries are unremarkable, other than for a quite low magnesium of 1.4. We will begin supplementing that over the next 72 hours, and he will continue with the TPN and have him take in some liquids as tolerated, emptying the G-tube intermittently. The patient grew out 3 organisms from the intraabdominal abscess at the time of the closure of the dehiscence last week and appears to be satisfactorily covered with current antibiotics, based on sensitivities. We will continue TPN today and then I think probably over the next few days we will begin seeing the GI tract begin to resume function. I think we will add some erythromycin via the G-tube 3 times a day at beginning of clamped periods, to augment gastric emptying and GI tract motility. Fredi Linn MD /[id number]
--- NOTE | 2018-04-15 08:57 | CRLUS ---
DUPLEX ARTERIAL ULTRASOUND RIGHT LOWER EXTREMITY, 04/15/2018 COMPARISON: None. CLINICAL HISTORY: 77-year-old male with right toe osteomyelitis and no pedal pulses. TECHNIQUE: Color Spectral Doppler ultrasound imaging of the right lower extremity arterial system was performed. FINDINGS: There are heavy calcifications throughout the right lower extremity arterial system. There are some areas of shadowing limiting visibility. There is triphasic flow in the common femoral artery with velocity of 153 cm/second. Biphasic flow in the deep femoral artery with a velocity of 133 cm/second. In the proximal superficial femoral artery, there is multiphasic flow with velocity of 129 cm/second. In the mid superficial femoral artery, velocity is 182 cm/second with biphasic flow. The mid and distal superficial femoral artery are not well seen. There is a prominent collateral in the distal superficial femoral artery. There is monophasic flow in the distal superficial femoral artery with velocity of 198 cm/second. Monophasic flow in the popliteal artery with a velocity of 107 cm/second proximally and 107 cm/second distally. Monophasic flow in the distal right posterior tibial artery with velocity of 23 cm/second. Monophasic flow in the dorsalis pedis artery with velocity of 57 cm/second. IMPRESSION: Diffuse atherosclerotic disease throughout the right lower extremity arterial system with suspected hemodynamically significant disease in the mid superficial femoral artery given the monophasic flow. No definite stenosis identified, however. SIVA ALCARAZ M.D. [facility] Inter[facility] Radiology Transcribed: 1:04 p.m. [email or web address]/Dictated by: Siva Alcaraz MD @ 04/15/2018 12:25:00 PM (Electronically Signed)
--- NOTE | 2018-04-15 10:40 | PN ---
DATE OF SERVICE: 04/15/2018 SUBJECTIVE: Kodak has osteomyelitis in his right great toe. He has reported pain with clamping of the gastrostomy tube. He had oral intake 390, had 100 mL out of his ostomy. Sorto catheter output is 3900. Gastrostomy tube 500 mL. EMEKA drains have put out 2, 10, and 5, respectively, of a light pink serosanguineous drainage. Breakfast, lunch, dinner, and snacks consumed 0%. OBJECTIVE: GENERAL: Kodak Silva is a 77-year-old male. He does report pain in his right great toe. It is swollen, discolored, tender. No pedal pulse palpated. HEENT: Negative. HEART: Regular rate and rhythm. LUNGS: Decreased breath sounds in bases. ABDOMEN: Wound VAC on. EMEKA drains intact. Ostomy has stool in the bag. NG tube is to dependent drainage. EXTREMITIES: There is no peripheral edema. ASSESSMENT: 1. Osteomyelitis, right great toe. No pedal pulse. Insertion of left subclavian triple lumen, exploratory laparotomy, drainage of intraabdominal abscess, small bowel resection, small bowel strictureplasty, placement of Vicryl mesh. 2. Closure of fascial dehiscence and evisceration of intraabdominal abscess and focal small bowel stricture, focal areas of small bowel deserosalization, and insertion of subclavian triple lumen. Date of surgery 04/07/2017: Surgeon: Fredi Linn MD. PLAN: 1. Right leg arterial duplex scan. 2. Continue same TPN rate and content. 3. G-tube leave to dependent drainage. 4. Clamp G-tube 30 minutes after erythromycin and then unclamp. Check CBC, CMP, phosphorus, and BNP in a.m. 5. Good pulmonary toilet. 6. We will evaluate p.r.n. or in a.m. Rula Morley PA-C /[id number]
--- NOTE | 2018-04-15 12:31 | CONS ---
DATE OF CONSULTATION: 04/14/2018 This is in response to a consult from Dr. Agosto regarding the patient's right great toe. Thank you very much, Dr. Agosto for the referral of this patient to our service. SUBJECTIVE: The patient is a 77-year-old male, seen at bedside. The patient relates he has had some swelling in his right big toe for about 2 weeks or so. He is not sure exactly how long it has been there. Denies having any sores or any injuries to it. Denies having had any surgeries on the right great toe in the past, but relates that it is very tender. PAST MEDICAL HISTORY: Significant for rupture of the large intestine, possible diverticulosis, and repair of laceration of the large intestine, and also I and D of the abdomen for intraabdominal abscess. REVIEW OF SYSTEMS: ENDOCRINE: The patient denies history of diabetes mellitus. NEUROLOGIC: The patient denies history of numbness or tingling in his feet. FAMILY HISTORY: The patient denies history of bleeding or clotting disorders. SOCIAL HISTORY: The patient denies tobacco use, denies alcohol use, but relates he did smoke up until about 2 months ago and he used to smoke about 2 packs of cigarettes a day for about 40 years. OBJECTIVE: GENERAL: The patient is alert and oriented x3, and in no acute distress. VITAL SIGNS: Per EMR. VASCULAR: Revealed pedal pulses were weakly palpable, DP and PT on the right foot. DERMATOLOGIC: Revealed that there were no open wounds, no lacerations, and no abrasions present on the right foot or ankle. The right great toe was slightly edematous but it was not erythematous. NEUROLOGIC: Revealed sensation was grossly intact in the right foot. MUSCULOSKELETAL: Showed no gross deformity is present on the right foot, but there was a great deal of tenderness to palpation on the distal right great toe. RADIOLOGIC DATA: X-rays of the right foot, 3 views, personally reviewed by me showed loss of bone on the distal and of the right great toe distal phalanx. Some fragmentation of bone as well. Three views of the right foot, plain films, personally reviewed by me. ASSESSMENT: Osteomyelitis, right great toe, distal phalanx. PLAN: The patient was examined and evaluated. We ordered an MRI, which is pending, just to see the extent of the osteomyelitis. We told the patient that we will likely need to amputate all or part of the right great toe in order to resolve the bone infection because antibiotics alone do not work on a bone infection very well. The patient related understanding. We discussed the patient with Dr. Agosto, who agreed to keep the patient on IV antibiotics in the meantime in order to keep the infection at bay. He has had multiple abdominal surgeries recently, and we are likely going to wait until next week before amputating the toe, as long as it does not progress or get any worse clinically. In the meantime, Podiatry to follow. Jace Brown DPM /[id number] ONES[place]
--- NOTE | 2018-04-15 13:56 | PCM.PN ---
- General Info Date of Service: 04/15/18 Subjective Update: Mr. Silva reports feeling significantly improved since yesterday. Arterial Doppler studies were done of the right leg and are pending at this time. Pain in his right first toe has decreased since yesterday. Oral intake seems to be very slowly improving. Functional Status: Reports: Tolerating Diet. Denies: Ambulating, Urinating - Review of Systems General: Reports: Weakness. Denies: Fever, Chills Pulmonary: Reports: No Symptoms Cardiovascular: Reports: No Symptoms Gastrointestinal: Reports: Abdominal Pain, Decreased Appetite. Denies: Difficulty Swallowing, Nausea, Vomiting - Patient Data Vitals - Most Recent: Last Vital Signs Temp 97.8 F 04/15/18 11:33 Pulse 89 04/15/18 11:33 Resp 18 04/15/18 11:33 BP 156/74 H 04/15/18 11:33 Pulse Ox 97 04/15/18 11:33 Weight - Most Recent: 148 lb I&O - Last 24 Hours: Intake & Output 04/14/18 04/15/18 04/15/18 22:59 06:59 14:59 Intake Total 1165 1848 Output Total 4517 Balance -3352 1848 Lab Results Last 24 Hours: Laboratory Results - last 24 hr 04/15/18 04/15/18 Range/Units 05:17 05:17 WBC 12.5 H (4.5-11.0) K/uL RBC 3.30 L (4.30-5.90) M/uL Hgb 9.6 L (12.0-15.0) g/dL Hct 30.7 L (40.0-54.0) % MCV 93 (80-98) fL MCH 29 (27-31) pg MCHC 31 L (32-36) % Plt Count 237 (150-400) K/uL Neut % (Auto) 65 (36-66) % Lymph % (Auto) 13 L (24-44) % Moffat % (Auto) 10 H (2-6) % Eos % (Auto) 11 H (2-4) % Baso % (Auto) 1 (0-1) % Sodium 143 (140-148) mmol/L Potassium 3.6 (3.6-5.2) mmol/L Chloride 108 (100-108) mmol/L Carbon Dioxide 26 (21-32) mmol/L Anion Gap 8.8 (5.0-14.0) mmol/L BUN 36 H (7-18) mg/dL Creatinine 1.0 (0.8-1.3) mg/dL Est Cr Clr Drug Dosing 59.53 mL/min Estimated GFR (MDRD) > 60 (>60) Glucose 115 H (74-106) mg/dL Calcium 8.6 (8.5-10.1) mg/dL Magnesium 3.5 H (1.8-2.4) mg/dL Med Orders - Current: Current Medications Acetaminophen (Tylenol) 1,000 mg GTUBE Q6H [facility] Last Admin: 04/15/18 13:40 Dose: 1,000 mg Albuterol (Proventil Neb Soln) 2.5 mg NEB Q4H PRN PRN Reason: Dyspnea Last Admin: 04/05/18 18:03 Dose: 2.5 mg Albuterol/Ipratropium (Duoneb 3.0-0.5 Mg/3 Ml) 3 ml NEB QIDRT [facility] Last Admin: 04/15/18 11:17 Dose: 3 ml Dimethicone/Zinc Oxide (Rash Relief-Zinc Oxide [place]) 0 gm TOP ASDIRECTED PRN PRN Reason: Rash Last Admin: 03/28/18 16:55 Dose: 1 spray Diphenhydramine HCl (Benadryl) 25 mg IVPUSH Q6H PRN PRN Reason: Itching Last Admin: 04/14/18 20:42 Dose: 25 mg Erythromycin (Jh-Tab) 250 mg PO TID@0730,1630,2130 [facility] Last Admin: 04/15/18 08:34 Dose: 250 mg Heparin Sodium (Porcine) (Heparin Lock Flush 100 Units/Ml) 500 units FLUSH ASDIRECTED PRN PRN Reason: IV Use Last Admin: 04/14/18 16:28 Dose: 500 units Hydroxyzine HCl (Vistaril) 50 mg IM Q6H PRN PRN Reason: Pain Multivitamins/Minerals 10 ml/Chromium/Copper/Manganese/Seleni/Zn 1 ml/ Amino Ac/ Electrol/Dextrose/Calcium 1,011 mls @ 82 mls/hr IV .BY DURATION [facility] Last Admin: 04/14/18 16:57 Dose: 82 mls/hr Amino Ac/Electrol/Dextrose/Calcium (Clinimix E 07/08) 1,000 mls @ 82 mls/hr IV .BY DURATION [facility] Last Admin: 04/15/18 04:56 Dose: 82 mls/hr Sodium Chloride (Normal Saline) 1,000 mls @ 0 mls/hr IV ASDIRECTED [facility] Doxycycline Hyclate 100 mg/ (Sodium Chloride) 100 mls @ 100 mls/hr IV Q12H [facility] Last Admin: 04/15/18 13:40 Dose: 100 mls/hr Ciprofloxacin/Dextrose 400 mg/ (Premix) 200 mls @ 200 mls/hr IV Q12H [facility] Last Admin: 04/15/18 11:35 Dose: 200 mls/hr Lactobacillus Rhamnosus (Culturelle) 1 cap PO BID [facility] Last Admin: 04/15/18 08:34 Dose: 1 cap Pantoprazole Sodium (Protonix Iv) 40 mg IV Q24H [facility] Last Admin: 04/15/18 06:23 Dose: 40 mg Tramadol HCl (Ultram) 25 - 50 mg PO Q6H PRN PRN Reason: Pain Last Admin: 04/15/18 00:04 Dose: 50 mg Discontinued Medications Acetaminophen (Tylenol) 650 mg RECTAL Q4H PRN PRN Reason: Fever Acetaminophen (Tylenol) 650 mg PO Q4H PRN PRN Reason: Pain/Fever Last Admin: 04/05/18 20:14 Dose: 650 mg Albuterol/Ipratropium (Duoneb 3.0-0.5 Mg/3 Ml) 3 ml NEB Q4H PRN PRN Reason: Dyspnea Albuterol/Ipratropium (Duoneb 3.0-0.5 Mg/3 Ml) 3 ml NEB ONETIME ONE Stop: 04/07/18 10:31 Last Admin: 04/07/18 10:26 Dose: Not Given Bupivacaine HCl (Marcaine 0.5%) Confirm Administered Dose 50 ml .ROUTE .STK-MED ONE Stop: 04/07/18 12:06 Ropivacaine 34 ml/Dexamethasone 8 mg/Epinephrine HCl 0.4 mg/ Sodium Chloride 43.6 ml 0 ml NERVRT ASDIRECTED [facility] Last Admin: 04/07/18 16:01 Dose: 80 syringe Dexamethasone (Dexamethasone) Confirm Administered Dose 4 mg .ROUTE .STK-MED ONE Stop: 03/18/18 19:48 Dexamethasone (Dexamethasone) Confirm Administered Dose 4 mg .ROUTE .STK-MED ONE Stop: 04/07/18 10:56 Epinephrine HCl (Adrenalin) Confirm Administered Dose 1 mg .ROUTE .STK-MED ONE Stop: 03/18/18 21:07 Erythromycin Ethylsuccinate (Eryped 400) 125 mg PO Q6H [facility] Last Admin: 04/07/18 15:14 Dose: Not Given Fentanyl (Sublimaze) Confirm Administered Dose 250 mcg .ROUTE .STK-MED ONE Stop: 03/18/18 19:48 Fentanyl (Sublimaze) Confirm Administered Dose 250 mcg .ROUTE .STK-MED ONE Stop: 04/02/18 12:59 Fentanyl (Sublimaze) Confirm Administered Dose 250 mcg .ROUTE .STK-MED ONE Stop: 04/07/18 10:56 Furosemide (Lasix) 20 mg IVPUSH ONETIME ONE Stop: 03/23/18 09:46 Last Admin: 03/23/18 10:18 Dose: 20 mg Furosemide (Lasix) 20 mg IVPUSH NOW ONE Stop: 03/25/18 10:01 Last Admin: 03/25/18 10:17 Dose: 20 mg Furosemide (Lasix) 20 mg IVPUSH ONETIME ONE Stop: 03/26/18 09:16 Last Admin: 03/26/18 09:10 Dose: 20 mg Furosemide (Lasix) 20 mg IVPUSH ONETIME ONE Stop: 03/26/18 16:01 Last Admin: 03/26/18 18:28 Dose: Not Given Furosemide (Lasix) 20 mg IVPUSH NOW ONE Stop: 03/27/18 10:01 Last Admin: 03/27/18 10:26 Dose: 20 mg Furosemide (Lasix) 20 mg IVPUSH ONETIME ONE Stop: 03/30/18 13:11 Last Admin: 03/30/18 13:36 Dose: 20 mg Furosemide (Lasix) 20 mg IVPUSH NOW ONE Stop: 03/31/18 11:55 Last Admin: 03/31/18 13:04 Dose: 20 mg Furosemide (Lasix) 20 mg IVPUSH NOW ONE Stop: 04/01/18 12:05 Last Admin: 04/01/18 12:43 Dose: 20 mg Furosemide (Lasix) 20 mg IVPUSH NOW ONE Stop: 04/02/18 15:46 Last Admin: 04/02/18 15:53 Dose: 20 mg Furosemide (Lasix) 40 mg IVPUSH NOW ONE Stop: 04/03/18 09:01 Last Admin: 04/03/18 09:45 Dose: 40 mg Furosemide (Lasix) 40 mg IVPUSH NOW ONE Stop: 04/04/18 15:31 Last Admin: 04/04/18 15:55 Dose: 40 mg Furosemide (Lasix) 40 mg IVPUSH NOW ONE Stop: 04/05/18 09:01 Last Admin: 04/05/18 10:15 Dose: 40 mg Furosemide (Lasix) 40 mg IVPUSH ONETIME ONE Stop: 04/08/18 12:01 Last Admin: 04/08/18 11:01 Dose: 40 mg Furosemide (Lasix) 40 mg IVPUSH ONETIME STA Stop: 04/09/18 06:48 Last Admin: 04/09/18 10:16 Dose: Not Given Furosemide (Lasix) 20 mg IVPUSH ONETIME ONE Stop: 04/09/18 12:01 Last Admin: 04/09/18 13:43 Dose: Not Given Furosemide (Lasix) 40 mg IVPUSH ONETIME STA Stop: 04/09/18 10:08 Last Admin: 04/09/18 10:09 Dose: 40 mg Furosemide (Lasix) Confirm Administered Dose 40 mg .ROUTE .STK-MED ONE Stop: 04/09/18 10:08 Last Admin: 04/09/18 10:16 Dose: 40 mg Furosemide (Lasix) 40 mg IVPUSH ONETIME ONE Stop: 04/09/18 16:01 Last Admin: 04/09/18 15:54 Dose: 40 mg Furosemide (Lasix) 40 mg IVPUSH ONETIME ONE Stop: 04/10/18 12:01 Last Admin: 04/10/18 14:03 Dose: 40 mg Furosemide (Lasix) 20 mg IVPUSH ONETIME ONE Stop: 04/10/18 20:01 Last Admin: 04/10/18 21:10 Dose: 20 mg Furosemide (Lasix) 40 mg IVPUSH NOW ONE Stop: 04/11/18 11:31 Last Admin: 04/11/18 12:58 Dose: 40 mg Furosemide (Lasix) 40 mg IVPUSH NOW ONE Stop: 04/12/18 11:21 Last Admin: 04/12/18 13:28 Dose: 40 mg Furosemide (Lasix) Confirm Administered Dose 40 mg .ROUTE .STK-MED ONE Stop: 04/12/18 13:27 Last Admin: 04/12/18 13:52 Dose: Not Given Furosemide (Lasix) 40 mg IVPUSH NOW ONE Stop: 04/13/18 08:31 Last Admin: 04/13/18 08:42 Dose: 40 mg Furosemide (Lasix) 40 mg IVPUSH NOW ONE Stop: 04/14/18 10:01 Last Admin: 04/14/18 10:09 Dose: 40 mg Glycopyrrolate (Robinul) Confirm Administered Dose 1 mg .ROUTE .STK-MED ONE Stop: 03/18/18 19:48 Glycopyrrolate (Robinul) Confirm Administered Dose 1 mg .ROUTE .K-MED ONE Stop: 04/07/18 10:56 Heparin Sodium (Porcine) (Heparin Sodium) Confirm Administered Dose 5,000 units .ROUTE .[facility]-MED ONE Stop: 03/18/18 19:51 Heparin Sodium (Porcine) (Heparin Lock Flush 100 Units/Ml) Confirm Administered Dose 500 units .ROUTE .STK-MED ONE Stop: 03/22/18 12:17 Last Admin: 03/22/18 12:30 Dose: Not Given Heparin Sodium (Porcine) (Heparin Sodium) Confirm Administered Dose 5,000 units .ROUTE .STK-MED ONE Stop: 03/24/18 19:52 Last Admin: 03/24/18 20:33 Dose: 5,000 units Heparin Sodium (Porcine) (Heparin Lock Flush 100 Units/Ml) Confirm Administered Dose 1,000 units .ROUTE .STK-MED ONE Stop: 04/07/18 12:06 Last Admin: 04/07/18 14:30 Dose: 500 units Hydrocortisone Sodium Succinate (Solu-Cortef) 100 mg IVPUSH Q12H [facility] Last Admin: 03/28/18 20:15 Dose: 100 mg Hydrocortisone Sodium Succinate (Solu-Cortef) 100 mg IVPUSH DAILY [facility] Last Admin: 03/30/18 13:39 Dose: Not Given Hydromorphone HCl (Dilaudid) 0.5 mg IVPUSH ONETIME ONE Stop: 03/18/18 17:43 Last Admin: 03/18/18 17:47 Dose: 0.5 mg Hydromorphone HCl (Dilaudid) 1 mg IVPUSH ONETIME ONE Stop: 03/18/18 18:18 Last Admin: 03/18/18 18:27 Dose: 1 mg Hydroxyzine HCl (Vistaril) 100 mg IM Q6H PRN PRN Reason: Pain Last Admin: 04/11/18 08:49 Dose: 100 mg Sodium Chloride (Normal Saline) 1,000 mls @ 1,000 mls/hr IV ASDIRECTED [facility] Last Admin: 03/18/18 17:47 Dose: 1,000 mls/hr Sodium Chloride (Normal Saline) 1,000 mls @ 999 mls/hr IV ASDIRECTED [facility] Last Admin: 03/18/18 19:31 Dose: 999 mls/hr Meropenem 500 mg/ Sodium (Chloride) 50 mls @ 100 mls/hr IV ONETIME ONE Stop: 03/18/18 19:09 Last Admin: 03/18/18 19:01 Dose: 100 mls/hr Sodium Chloride (Normal Saline) Confirm Administered Dose 50 mls @ as directed .ROUTE .STK-MED ONE Stop: 03/18/18 19:40 Last Admin: 03/18/18 20:19 Dose: Not Given Aztreonam 2 gm/ Sodium (Chloride) 50 mls @ 100 mls/hr IV ONETIME ONE Stop: 03/18/18 20:01 Last Admin: 03/18/18 20:44 Dose: 100 mls/hr Meropenem 500 mg/ Sodium (Chloride) 50 mls @ 100 mls/hr IV ONETIME ONE Stop: 03/18/18 20:00 Last Admin: 03/18/18 19:40 Dose: 100 mls/hr Sodium Chloride (Normal Saline) Confirm Administered Dose 250 mls @ as directed .ROUTE .STK-MED ONE Stop: 03/18/18 19:59 Lactated Ringer's (Ringers, Lactated) Confirm Administered Dose 1,000 mls @ as directed .ROUTE .STK-MED ONE Stop: 03/18/18 19:59 Sodium Chloride (Normal Saline) Confirm Administered Dose 500 mls @ as directed .ROUTE .STK-MED ONE Stop: 03/18/18 19:59 Norepinephrine Bitartrate 8 mg (/ Dextrose/Water) 258 mls @ 3.87 mls/hr IV TITRATE [facility]; Protocol Last Admin: 03/19/18 11:45 Dose: 12 mcg/min, 23.22 mls/hr Lactated Ringer's (Ringers, Lactated) Confirm Administered Dose 1,000 mls @ as directed .ROUTE .STK-MED ONE Stop: 03/18/18 21:42 Propofol (Diprivan 100 Ml) 100 mls @ 2.082 mls/hr IV TITRATE [facility]; Protocol Last Titration: 03/27/18 06:35 Dose: 10 mcg/kg/min, 4.164 mls/hr Aztreonam 1 gm/ Sodium (Chloride) 50 mls @ 100 mls/hr IV Q8H [facility] Last Admin: 03/19/18 05:29 Dose: 100 mls/hr Potassium Chloride/Dextrose/Sod Cl (D5 1/2 Ns W/ 20 Meq/L Kcl) 1,000 mls @ 150 mls/hr IV ASDIRECTED [facility] Last Admin: 03/18/18 23:11 Dose: 150 mls/hr Meropenem 1 gm/ Sodium (Chloride) 50 mls @ 100 mls/hr IV Q12H [facility] Stop: 03/29/18 22:00 Last Admin: 03/29/18 20:10 Dose: 100 mls/hr Lactated Ringer's (Ringers, Lactated) 1,000 mls @ 500 mls/hr IV ASDIRECTED [facility] Last Admin: 03/19/18 01:23 Dose: 500 mls/hr Vasopressin 100 units/ (Dextrose/Water) 255 mls @ 1.53 mls/hr IV TITRATE [facility]; Protocol Stop: 03/21/18 13:00 Last Titration: 03/21/18 11:03 Dose: 0.02 units/min, 3.06 mls/hr Lactated Ringer's (Ringers, Lactated) 1,000 mls @ 500 mls/hr IV BOLUS [facility] Stop: 03/19/18 05:29 Last Admin: 03/19/18 04:02 Dose: 500 mls/hr Aztreonam/Dextrose 1 gm/ (Premix) 50 mls @ 100 mls/hr IV Q8H [facility] Last Admin: 03/28/18 05:26 Dose: 100 mls/hr Lactated Ringer's (Ringers, Lactated) 1,000 mls @ 500 mls/hr IV .BOLUS ONE Stop: 03/19/18 14:59 Last Admin: 03/19/18 14:27 Dose: 500 mls/hr Lactated Ringer's (Ringers, Lactated) 1,000 mls @ 150 mls/hr IV ASDIRECTED [facility] Last Admin: 03/21/18 11:53 Dose: 150 mls/hr Norepinephrine Bitartrate 8 mg (/ Dextrose/Water) 250 mls @ 3.75 mls/hr IV TITRATE [facility]; Protocol Last Titration: 03/27/18 09:04 Dose: 4 mcg/min, 7.5 mls/hr Magnesium Sulfate 2 gm/ Premix 50 mls @ 25 mls/hr IV Q6H [facility] Stop: 03/20/18 17:59 Last Admin: 03/20/18 16:30 Dose: 25 mls/hr Vancomycin HCl 1.25 gm/ Sodium (Chloride) 250 mls @ 170 mls/hr IV Q24H [facility] Last Admin: 03/22/18 10:06 Dose: 170 mls/hr Vasopressin 40 units/ Dextrose (/Water) 100 mls @ 3 mls/hr IV TITRATE [facility]; Protocol Last Titration: 03/23/18 01:00 Dose: 0 units/min, 0 mls/hr Potassium Chloride 20 meq/ (Premix) 100 mls @ 50 mls/hr IV Q2H [facility] Stop: 03/21/18 22:59 Last Admin: 03/21/18 22:20 Dose: 50 mls/hr Potassium Chloride 20 meq/ (Premix) 100 mls @ 50 mls/hr IV Q2H [facility] Stop: 03/22/18 12:59 Last Admin: 03/22/18 11:30 Dose: 50 mls/hr Potassium Chloride 20 meq/ (Premix) 100 mls @ 50 mls/hr IV Q2H [facility] Stop: 03/22/18 17:29 Last Admin: 03/22/18 16:13 Dose: 50 mls/hr Potassium Chloride (Kcl 20 Meq In Water 100 Ml) 100 mls @ 50 mls/hr IV Q2H [facility] Stop: 03/23/18 01:59 Last Admin: 03/23/18 00:53 Dose: 50 mls/hr Potassium Chloride 40 meq/ (Premix) 100 mls @ 25 mls/hr IV ONETIME ONE Stop: 03/23/18 14:29 Last Admin: 03/23/18 10:31 Dose: 25 mls/hr Vancomycin HCl 1.4 gm/ Sodium (Chloride) 250 mls @ 170 mls/hr IV Q24H [facility] Last Admin: 03/24/18 11:13 Dose: 170 mls/hr Multivitamins/Minerals 10 ml/Chromium/Copper/Manganese/Seleni/Zn 1 ml/ Amino Ac/ Electrol/Dextrose/Calcium 1,011 mls @ 75 mls/hr IV .BY DURATION [facility] Last Admin: 03/25/18 22:34 Dose: 75 mls/hr Amino Ac/Electrol/Dextrose/Calcium (Clinimix E 5/15) 1,000 mls @ 75 mls/hr IV .BY DURATION [facility] Last Admin: 03/25/18 08:11 Dose: 75 mls/hr Vasopressin 100 units/ (Dextrose/Water) 255 mls @ 1.53 mls/hr IV TITRATE [facility]; Protocol Last Titration: 03/25/18 11:51 Dose: 0 units/min, 0 mls/hr Potassium Chloride 20 meq/ (Premix) 100 mls @ 50 mls/hr IV Q2H [facility] Stop: 03/24/18 13:59 Last Admin: 03/24/18 12:13 Dose: 50 mls/hr Multivitamins/Minerals 10 ml/Chromium/Copper/Manganese/Seleni/Zn 1 ml/ Amino Ac/ Electrol/Dextrose/Calcium 1,011 mls @ 75 mls/hr IV .BY DURATION [facility] Last Admin: 03/29/18 06:48 Dose: 75 mls/hr Amino Ac/Electrol/Dextrose/Calcium (Clinimix E 5/15) 1,000 mls @ 75 mls/hr IV .BY DURATION [facility] Last Admin: 03/29/18 20:12 Dose: 75 mls/hr Heparin Sodium (Porcine) 5,000 (units/ Sodium Chloride) 501 mls @ 5 mls/hr IV ASDIRECTED [facility] Last Admin: 03/27/18 12:50 Dose: 5 mls/hr Sodium Chloride (Normal Saline) 1,000 mls @ 50 mls/hr IV ASDIRECTED [facility] Last Admin: 03/30/18 13:36 Dose: 50 mls/hr Dextrose/Sodium Chloride (Dextrose 5%-1/2 Ns) 1,000 mls @ 75 mls/hr IV ASDIRECTED [facility] Last Admin: 03/31/18 23:53 Dose: 75 mls/hr Albumin Human (Albumin 25%) 25 gm in 100 mls @ 25 mls/hr IV Q24H [facility] Stop: 04/02/18 12:59 Last Admin: 04/01/18 08:13 Dose: 25 mls/hr Potassium Phosphate 20 mmole/ (Sodium Chloride) 256.6667 mls @ 85 mls/hr IV Q3H [facility] Stop: 04/01/18 18:59 Last Admin: 04/01/18 18:37 Dose: 85 mls/hr Dextrose/Sodium Chloride (Dextrose 5%-1/2 Ns) 1,000 mls @ 80 mls/hr IV ASDIRECTED [facility] Last Admin: 04/03/18 06:40 Dose: 80 mls/hr Cefazolin Sodium/Dextrose 2 gm (/ Premix) 50 mls @ 100 mls/hr IV ONCALL ONE Stop: 04/02/18 11:59 Last Admin: 04/02/18 13:59 Dose: 100 mls/hr Potassium Acetate 20 meq/ (Sodium Chloride) 110 mls @ 55 mls/hr IV Q2H [facility] Stop: 04/02/18 11:59 Last Admin: 04/02/18 10:10 Dose: 55 mls/hr Magnesium Sulfate 2 gm/ Premix 50 mls @ 25 mls/hr IV Q6H [facility] Stop: 04/05/18 07:59 Last Admin: 04/03/18 12:11 Dose: 25 mls/hr Albumin Human (Albumin 25%) 25 gm in 100 mls @ 25 mls/hr IV ONETIME ONE Stop: 04/02/18 17:59 Last Admin: 04/02/18 15:30 Dose: 25 mls/hr Potassium Chloride 20 meq/Lidocaine HCl 2 ml/ Sodium Chloride 112 mls @ 56 mls/ hr IV Q2H [facility] Stop: 04/03/18 17:59 Last Admin: 04/03/18 17:04 Dose: 56 mls/hr Magnesium Sulfate 2 gm/ Premix 50 mls @ 25 mls/hr IV Q6H [facility] Stop: 04/08/18 03:59 Last Admin: 04/07/18 15:14 Dose: Not Given Potassium Phosphate 15 mmole/ (Sodium Chloride) 255 mls @ 128 mls/hr IV Q2H [facility] Stop: 04/06/18 13:59 Last Admin: 04/06/18 12:49 Dose: 128 mls/hr Dextrose/Lactated Ringer's (Dextrose 5%-Lactated Ringers) 1,000 mls @ 100 mls/ hr IV ASDIRECTED [facility] Last Admin: 04/07/18 08:44 Dose: 100 mls/hr Meropenem 500 mg/ Sodium (Chloride) 50 mls @ 100 mls/hr IV ONCALL ONE Stop: 04/07/18 11:59 Last Admin: 04/07/18 15:13 Dose: Not Given Linezolid (Zyvox) Confirm Administered Dose 300 mls @ as directed .ROUTE .STK- MED ONE Stop: 04/07/18 15:26 Lactated Ringer's (Ringers, Lactated) Confirm Administered Dose 1,000 mls @ as directed .ROUTE .STK-MED ONE Stop: 04/07/18 15:35 Linezolid 600 mg/ Premix 300 mls @ 300 mls/hr IV ONETIME ONE Stop: 04/07/18 17:29 Last Admin: 04/07/18 16:25 Dose: 300 mls/hr Dextrose/Lactated Ringer's (Dextrose 5%-Lactated Ringers) 1,000 mls @ 175 mls/ hr IV ASDIRECTED [facility] Last Admin: 04/08/18 06:21 Dose: 175 mls/hr Linezolid 600 mg/ Premix 300 mls @ 300 mls/hr IV Q12H [facility] Last Admin: 04/10/18 03:46 Dose: 300 mls/hr Meropenem 500 mg/ Sodium (Chloride) 50 mls @ 100 mls/hr IV Q8H [facility] Last Admin: 04/11/18 06:23 Dose: 100 mls/hr Magnesium Sulfate 2 gm/ Premix 50 mls @ 25 mls/hr IV Q6H [facility] Stop: 04/09/18 13:59 Last Admin: 04/09/18 11:40 Dose: 25 mls/hr Dextrose/Lactated Ringer's (Dextrose 5%-Lactated Ringers) 1,000 mls @ 100 drops /hr IV ASDIRECTED [facility] Last Admin: 04/09/18 11:39 Dose: 100 drops/hr Albumin Human (Albumin 25%) 25 gm in 100 mls @ 25 mls/hr IV Q24H [facility] Stop: 04/12/18 13:59 Last Admin: 04/12/18 09:28 Dose: 25 mls/hr Albumin Human (Albumin 25%) 25 gm in 100 mls @ 25 mls/hr IV Q24H [facility] Stop: 04/12/18 17:59 Last Admin: 04/12/18 14:19 Dose: 25 mls/hr Dextrose/Lactated Ringer's (Dextrose 5%-Lactated Ringers) 1,000 mls @ 25 mls/ hr IV ASDIRECTED [facility] Potassium Phosphate 22.5 mmole (/ Sodium Chloride) 257.5 mls @ 86 mls/hr IV Q3H [facility] Stop: 04/10/18 15:59 Last Admin: 04/10/18 14:47 Dose: 86 mls/hr Calcium Gluconate 1 gm/ Sodium (Chloride) 110 mls @ 100 mls/hr IV Q6H [facility] Stop: 04/10/18 18:05 Last Admin: 04/10/18 16:21 Dose: 100 mls/hr Acetaminophen 1,000 mg/ Premix 100 mls @ 400 mls/hr IV Q6H [facility] Stop: 04/12/18 06:44 Last Admin: 04/12/18 05:47 Dose: 400 mls/hr Potassium Chloride 20 meq/ (Premix) 100 mls @ 50 mls/hr IV Q2H [facility] Stop: 04/12/18 14:59 Last Admin: 04/12/18 13:29 Dose: 50 mls/hr Potassium Chloride 40 meq/ (Premix) 100 mls @ 25 mls/hr IV ONETIME ONE Stop: 04/12/18 12:19 Potassium Chloride 40 meq/ (Premix) 100 mls @ 25 mls/hr IV ONETIME ONE Stop: 04/12/18 20:59 Last Admin: 04/12/18 17:45 Dose: 25 mls/hr Potassium Phosphate 25 mmole/ (Sodium Chloride) 108.3333 mls @ 27 mls/hr IV Q4H [facility] Stop: 04/13/18 21:29 Last Admin: 04/13/18 18:13 Dose: 27 mls/hr Magnesium Sulfate 2 gm/ Premix 50 mls @ 25 mls/hr IV Q6H [facility] Stop: 04/17/18 04:59 Last Admin: 04/15/18 08:34 Dose: 25 mls/hr Insulin Human Lispro (Humalog) 0 unit SUBCUT Q6H [facility]; Protocol Last Admin: 03/30/18 16:32 Dose: Not Given Insulin Human Lispro (Humalog) 0 unit SUBCUT Q6H [facility]; Protocol Last Admin: 03/31/18 03:52 Dose: Not Given Insulin Human Lispro (Humalog) 0 unit SUBCUT QIDACANDBED [facility]; Protocol Stop: 04/12/18 11:01 Last Admin: 03/31/18 13:17 Dose: Not Given Lidocaine/Epinephrine (Xylocaine 1% With Epinephrine 1:100,000) Confirm Administered Dose 50 ml .ROUTE .STK-MED ONE Stop: 04/07/18 12:06 Linezolid (Zyvox) 600 mg IRR .STK-MED ONE Stop: 04/07/18 16:06 Last Admin: 04/07/18 16:05 Dose: 600 mg Loperamide HCl (Imodium) 2 mg PO ASDIRECTED PRN PRN Reason: DIARRHEA Melatonin (Melatonin) 9 mg PO BEDTIME [facility] Last Admin: 04/06/18 21:40 Dose: 9 mg Meropenem (Merrem) Confirm Administered Dose 500 mg .ROUTE .STK-MED ONE Stop: 03/18/18 19:40 Last Admin: 03/18/18 20:19 Dose: Not Given Meropenem (Merrem) Confirm Administered Dose 500 mg .ROUTE .STK-MED ONE Stop: 04/07/18 14:38 Last Admin: 04/07/18 16:00 Dose: 500 mg Meropenem (Merrem) Confirm Administered Dose 500 mg .ROUTE .STK-MED ONE Stop: 04/07/18 15:08 Last Admin: 04/07/18 16:05 Dose: 500 mg Midazolam HCl (Versed 1 Mg/Ml) Confirm Administered Dose 2 mg .ROUTE .STK-MED ONE Stop: 04/02/18 12:59 Morphine Sulfate (Morphine) 4 mg IVPUSH Q2H PRN PRN Reason: Pain Last Admin: 03/29/18 07:34 Dose: 4 mg Morphine Sulfate (Morphine Sealer Dry Cell 150 Mg In 30 Ml) 0 mg IV ASDIRECTED PRN; Protocol PRN Reason: Pain Last Admin: 04/07/18 10:00 Dose: 150 mg Morphine Sulfate (Morphine Sealer Dry Cell 150 Mg In 30 Ml) 0 mg IV ASDIRECTED PRN; Protocol PRN Reason: Pain Naloxone HCl (Narcan) 0.1 mg IV ASDIRECTED PRN PRN Reason: decreased respiratory rate Neostigmine Methylsulfate (Neostigmine) Confirm Administered Dose 5 mg .ROUTE .STK-MED ONE Stop: 03/18/18 19:48 Neostigmine Methylsulfate (Neostigmine) Confirm Administered Dose 5 mg .ROUTE .STK-MED ONE Stop: 04/07/18 10:56 Non-Formulary Medication (Total Parenteral Nutrition, Central) 1,000 ml .XX .Continue Order [facility]; Protocol Stop: 03/24/18 11:31 Non-Formulary Medication (Total Parenteral Nutrition, Central) 1,000 ml .XX .Continue Order [facility]; Protocol Non-Formulary Medication (Total Parenteral Nutrition, Central) 1,000 ml .XX .Continue Order [facility]; Protocol Non-Formulary Medication (Total Parenteral Nutrition, Central) 1,000 ml .XX .Continue Order [facility]; Protocol Stop: 03/28/18 12:00 Non-Formulary Medication (Total Parenteral Nutrition, Central) 1,000 ml .XX .Continue Order [facility] Stop: 04/08/18 08:01 Non-Formulary Medication (Total Parenteral Nutrition, Central) 1,000 ml .XX .Continue Order [facility] Stop: 04/09/18 10:00 Non-Formulary Medication (Total Parenteral Nutrition, Central) 1,000 ml .XX .Continue Order [facility] Stop: 04/10/18 10:00 Non-Formulary Medication (Total Parenteral Nutrition, Central) 1,000 ml .XX .Continue Order [facility] Stop: 04/11/18 10:00 Non-Formulary Medication (Total Parenteral Nutrition, Central) 1,000 ml .XX .Continue Order [facility] Stop: 04/12/18 12:00 Non-Formulary Medication (Total Parenteral Nutrition, Central) 1,000 ml .XX .Continue Order [facility] Stop: 04/13/18 12:00 Non-Formulary Medication (Total Parenteral Nutrition, Central) 1,000 ml .XX .Continue Order [facility] Stop: 04/15/18 07:46 Nystatin (Mycostatin) 5 ml PO QID [facility] Last Admin: 04/04/18 15:25 Dose: 5 ml Ondansetron HCl (Zofran) 4 mg IVPUSH ONETIME ONE Stop: 03/18/18 18:18 Last Admin: 03/18/18 18:27 Dose: 4 mg Ondansetron HCl (Zofran) Confirm Administered Dose 4 mg .ROUTE .STK-MED ONE Stop: 03/18/18 19:48 Ondansetron HCl (Zofran) Confirm Administered Dose 4 mg .ROUTE .STK-MED ONE Stop: 04/07/18 10:56 Oxycodone HCl (Oxycodone) 5 mg PO Q4H PRN PRN Reason: Pain (moderate 4-6) Last Admin: 04/06/18 05:19 Dose: 5 mg Pantoprazole Sodium (Protonix Iv) 40 mg IVPUSH DAILY [facility] Last Admin: 03/28/18 08:34 Dose: 40 mg Pantoprazole Sodium (Protonix) 40 mg PO ACBREAKFAST [facility] Last Admin: 04/07/18 08:10 Dose: 40 mg Phenylephrine HCl (Isaías-Synephrine) Confirm Administered Dose 10 mg .ROUTE .STK- MED ONE Stop: 03/18/18 20:05 Potassium Chloride (Klor-Con M20) 40 meq PO ONETIME ONE Stop: 04/03/18 13:16 Last Admin: 04/03/18 14:33 Dose: 40 meq Potassium Chloride (Klor-Con M20) 40 meq PO ONETIME ONE Stop: 04/03/18 17:01 Last Admin: 04/03/18 20:55 Dose: 40 meq Potassium Chloride (Klor-Con M20) 40 meq PO ONETIME ONE Stop: 04/04/18 09:01 Last Admin: 04/04/18 09:34 Dose: 40 meq Potassium Chloride (Klor-Con M20) 40 meq PO ONETIME ONE Stop: 04/04/18 17:01 Last Admin: 04/04/18 17:08 Dose: 40 meq Potassium Chloride (Klor-Con M20) 40 meq PO ONETIME ONE Stop: 04/05/18 09:01 Last Admin: 04/05/18 10:14 Dose: 40 meq Potassium Chloride (Klor-Con M20) 40 meq PO ONETIME ONE Stop: 04/05/18 17:01 Last Admin: 04/05/18 18:00 Dose: 40 meq Potassium Chloride (Klor-Con M20) 40 meq PO ONETIME ONE Stop: 04/13/18 08:31 Last Admin: 04/13/18 08:42 Dose: 40 meq Potassium Chloride (Klor-Con M20) 40 meq PO ONETIME ONE Stop: 04/13/18 13:01 Last Admin: 04/13/18 12:44 Dose: 40 meq Potassium Chloride (Klor-Con M20) 40 meq PO ONETIME ONE Stop: 04/13/18 17:01 Last Admin: 04/13/18 16:57 Dose: 40 meq Prednisone (Prednisone) 20 mg PO WITHBREAKFAST [facility] Last Admin: 03/30/18 08:59 Dose: 20 mg Propofol (Diprivan 20 Ml) Confirm Administered Dose 200 mg .ROUTE .STK-MED ONE Stop: 03/18/18 19:48 Propofol (Diprivan 20 Ml) Confirm Administered Dose 200 mg .ROUTE .STK-MED ONE Stop: 04/02/18 12:59 Propofol (Diprivan 20 Ml) Confirm Administered Dose 200 mg .ROUTE .STK-MED ONE Stop: 04/07/18 10:56 Rocuronium [place] (Zemuron) Confirm Administered Dose 50 mg .ROUTE .STK-MED ONE Stop: 03/18/18 19:48 Rocuronium [place] (Zemuron) Confirm Administered Dose 50 mg .ROUTE .STK-MED ONE Stop: 04/07/18 10:56 Succinylcholine Chloride (Quelicin) Confirm Administered Dose 200 mg .ROUTE .STK -MED ONE Stop: 03/18/18 19:48 Vancomycin HCl (Vancomycin) 1 gm IV .PHARMACY TO DOSE [facility] Stop: 03/21/18 16:00 - Exam Quality Assessment: Central Line/PICC, Urine Catheter, DVT Prophylaxis General: Alert, Oriented, Cooperative, No Acute Distress Lungs: Clear to Auscultation, Normal Respiratory Effort Cardiovascular: Regular Rate, Regular Rhythm, No Murmurs GI/Abdominal Exam: Soft, No Organomegaly, Tender. No: Distended, Guarding, Rigid, Rebound Extremities: Non-Tender, No Pedal Edema - Problem List Review Problem List Initiated/Reviewed/Updated: Yes - Plan Plan:: ASSESSMENT AND PLAN WOUND DEHISCENCE WITH UNDERLYING ABSCESS - status post exploratory laparotomy . Seems to be slowly improving on a daily basis, more alert and interactive oral intake seems to be very slowly improving -Ciprofloxacin 400 mg IV every 12 hours - doxycycline 100 mg IV every 12 hours -Surgical follow-up per surgery team SIGMOID COLON PERFORATION RESULTING IN ACUTE ABDOMEN AND SEPTIC SHOCK - postop course complicated by wound dehiscence as above. He is receiving nutritional support via TPN. -Continue TPN initiated today -Post operative per surgical team -Pain control -Saline lock IV SEPTIC SHOCK - resolved ACUTE HYPOXIC RESPIRATORY FAILURE - respiratory status stable with diuresis -Coughing, deep breathing and suctioning as able -Furosemide daily OSTEOMYELITIS RIGHT FIRST TOE-pain and swelling improved from yesterday, attempt at obtaining MRI was unsuccessful because of movement -Arterial Doppler studies pending -Follow-up per Dr. Linn COPD - 31-roll-imih smoking history but no evidence for exacerbation at this time. -Nebulized albuterol as needed -Vigorous pulmonary toilet during the postoperative period HISTORY OF LUNG AND PROSTATE CARCINOMA - lung cancer felt to be stable, had been receiving treatment for management of prostate carcinoma prior to admission MAINTENANCE ISSUES -DVT prophylaxis; SCUDs -GI prophylaxis; Protonix 40 mg daily -Sorto catheter; placed at the time of surgery for strict intake and output monitoring -Nutrition; nothing by mouth DISPOSITION - anticipate discharge to senior living after the hospital stay.
[2018-04-15] MEDS ORDERED: Potassium Chloride 20 MEQ Tab.ER PO ONE (14:30)
[2018-04-15] MEDS ORDERED: Calcium Carbonate 500 MG Tab.Chew PO PRN (19:44)
[2018-04-16] MEDS: Acetaminophen Soln 650 MG/20.3 ML UD Cup GTUBE SCH ×5 (01:13→23:30)
[2018-04-16] MEDS: Doxycycline 100 MG in Sodium Chloride 0.9% 100 ML IV SCH ×2 (01:13→12:08)
[2018-04-16] MEDS: 1: AA 5%/Calcium/D15W/Lytes 1,000 ML with MVI, Adult with Vitamin K 10 ML, Chromium/Copp IV SCH ×6 (03:41→15:04)
[2018-04-16] MEDS: traMADol 50 MG Tab PO PRN ×2 (03:47→10:31)
[2018-04-16] MEDS: Albuterol 0.083% 2.5 MG/3 ML Neb Soln NEB PRN (04:53)
[2018-04-16] MEDS: Pantoprazole 40 MG Vial IV SCH (05:01)
[2018-04-16] MEDS ORDERED: Central Total Parenteral Nutrition Bag SCH (07:15)
[2018-04-16] MEDS: Albuterol/Ipratropium 3.0-0.5 MG/3 ML Neb Soln NEB SCH ×4 (07:35→21:10)
[2018-04-16] MEDS: Erythromycin Base 250 MG Cap.CR PO SCH ×3 (08:00→21:00)
[2018-04-16] MEDS: Lactobacillus Rhamnosus GG (Probiotic) Cap PO SCH ×2 (08:00→21:00)
[2018-04-16] MEDS ORDERED: HYDROmorphone 0.5 MG/0.5 ML Syringe IVPUSH ONE (09:57)
--- NOTE | 2018-04-16 11:53 | PN ---
DATE OF SERVICE: 04/16/2018 SUBJECTIVE: Kodak had slept throughout the entire night. He seemed quite relaxed. He was more comfortable. He did have 550 out of his Sorto catheter, 450 out of his G-tube and 200 out of his ostomy. Oral intake was 1000. EMEKA drains put out 10, 10 and 0. He does report tenderness around those EMEKA drains. Wound VAC intact. Vital signs have been stable. Temperature max of 99.8. LABORATORY DATA: Hemoglobin 9.2, WBC is 12.4, potassium 4, and BNP is 383. IMAGING STUDIES: Peripheral vascular ultrasound showed diffuse arthrosclerotic disease throughout the right lower extremity, arterial system was suspected, hemodynamically significant disease in the mid superficial femoral artery, given the monophasic flow, and this is causing right toe osteomyelitis. OBJECTIVE: GENERAL: Kodak Silva is a pleasant 77-year-old male. He is alert this morning. Answers questions appropriately. Color pale. VITAL SIGNS: TPR 98.3, 81, 18 and blood pressure 127/68. HEENT: Negative. NECK: Supple. HEART: Regular rate. LUNGS: Better air exchange today. There are no rales or rhonchi. ABDOMEN: Wound VAC intact. He has stool in his ostomy. EMEKA drains are intact and gastrostomy tube intact. EXTREMITIES: Right toe is slightly discolored. There is no lower extremity edema. ASSESSMENT: 1. Right toe osteomyelitis with diffuse arthrosclerotic disease, suspected hemodynamically significant disease in the mid superficial femoral artery with monophasic flow. 2. Insertion of left subclavian triple lumen, exploratory laparotomy, drainage of intraabdominal abscess, small bowel resection, small-bowel strictureplasty and placement of Vicryl mesh for closure of fascial dehiscence and evisceration of the intraabdominal abscess and focal small-bowel stricture, focal areas of small bowel deserosalization and insertion of subclavian triple lumen. Date of surgery 04/07/2018. Surgeon, Fredi Linn MD. 3. Percutaneous endoscopic gastrostomy tube placement for malnutrition with inadequate oral intake. Date of procedure, 04/02/2018. Surgeon, Fredi Linn. 4. Exploratory laparotomy, peritoneal lavage, sigmoid colon resection, left colostomy, Cristina's pouch for acute abdomen with perforated viscus and sepsis. Date of surgery 03/18/2018. Surgeon, Espinoza Adams MD. 5. Septic shock, resolved. 6. Acute hypoxic respiratory failure, resolved. 7. Chronic obstructive pulmonary disease. 8. Acute kidney injury. 9. History of lung and prostate cancer. 10.Persistent inadequate oral intake. 11.Malnutrition, requiring TPN therapy. PLAN: 1. Discontinue all 3 EMEKA drains. 2. Continue TPN same rate and content. 3. Clamp gastrostomy tube 30 minutes after oral medication. 4. Check CBC, CMP, phos, and BNP in a.m. 5. We will evaluate p.r.n. or in the a.m. 6. We will discuss right arterial Doppler study with Dr. Jluis Agosto, hospitalist. 7. Good pulmonary toilet. 8. We will evaluate p.r.n. or in a.m. Rula Morley PA-C /[id number]
[2018-04-16] MEDS: Ciprofloxacin in D5W 400 MG in Premix Bag 1 BAG IV SCH ×4 (12:10→23:23)
[2018-04-16] MEDS ORDERED: Vancomycin 1 GM SDV IV SCH (13:00)
--- NOTE | 2018-04-16 13:09 | OR ---
DATE OF PROCEDURE: 04/07/2018 PREOPERATIVE DIAGNOSES: 1. Fascial dehiscence with evisceration. 2. Indication for central venous access. POSTOPERATIVE DIAGNOSES: 1. Indication for central venous access. 2. Fascial dehiscence with evisceration. 3. Intraabdominal abscess. 4. Focal area of small bowel stricture. 5. Focal area of small bowel deserosalization. OPERATIVE PROCEDURES: 1. Insertion of left subclavian vein triple-lumen catheter (47025). 2. Exploratory laparotomy with. a. Drainage of intraabdominal abscess (94546). b. Small bowel resection (92140). c. Small bowel stricturoplasty (68041). d. Placement of Vicryl mesh to displace pelvic and abdominal hernandez from underlying viscera and limit chances of evisceration should recurrent dehiscence develop (87457). e. Closure of fascial dehiscence (44569). ANESTHESIA: General. ASSISTANTS: Rula Morley PA-C, and BOB Mckeon. INDICATION FOR PROCEDURE: This is a 77-year-old who was up in a chair this morning, when he was noted to have developed a broad-based fascial dehiscence with significant evisceration. The plan is to proceed with an exploratory laparotomy and closure of the fascial dehiscence and address whatever other problems might be encountered. He will, at this point, need a central line inserted to continue some postoperative TPN for nutritional support as well. Potential risks of the procedure were reviewed with the patient's son, and they wished to proceed. DETAILS OF PROCEDURE: The patient was taken to the operating room and placed in a supine position. After general endotracheal anesthesia was induced, the upper chest and neck areas were prepped and draped. The left subclavian vein was then cannulated and guidewire passed. Over the guidewire, a triple-lumen catheter was inserted. Good in and outflow noted through the ports, and they were flushed with heparinized saline. The catheter was sutured to the skin with some 3-0 silk stitch and dressing applied. Subsequent chest x-ray showed good catheter position within the upper right atrium. At that point, the abdomen was then prepped and draped. The patient's colostomy was left covered with colostomy bag, which was also then prepped. A Sorto catheter was inserted. There were some adhesions between the edges of the fascia and the small bowel. As these were taken down, there was a significant area of small bowel deserosalization, where there was quite a bit in the way of adherence to the anterior abdominal wall. As one dissected the bowel away, there was noted to be abscess cavity superior to the colostomy. This had thin white purulent material within it and initial Gram-stain did show some gram-positive cocci. The remainder of the abdominal examination showed an area of stricturing within the small bowel, where it had been up against the fascial edge as well. At that point, a decision was made to proceed with a stricturoplasty at that location and then small bowel resection of the area that was deserosalized. The small bowel which was in the mid-ileum it would appear, was divided proximal and distal to the area of deserosalization. This was done with MARQUEZ staplers, as was the underlying mesentery. The small bowel continuity was then reestablished with a [id number] anastomosis staplers. The common openings were closed also with the MARQUEZ stapler. Angles of anastomosis and mesenteric defect approximated with some 3-0 Vicryl stitch. The area of small bowel stricture was then addressed. This was flipped over on itself and an enterotomy made at the point of the stricture and a ayko-oh-eoed anastomosis between the 2 arms of the bowel, as they laid up against each other, was then accomplished similar to the [id number] anastomosis and the angles of anastomosis in this case were also then reapproximated with some 3-0 Vicryl stitch. In this case, there was no mesenteric defect to close. At this point, no further problems were noted. The abdomen was irrigated with a combination of Zyvox and meropenem- containing saline solution. Two David-Benito drains were placed in stab wounds superior to the main incision and taken into the area above the colostomy where the abscess cavity had been present. It was then taken through the right mid-abdomen and down into the pelvis to drain any fluid that might accumulate in that area. Vicryl mesh was then placed behind the urinary bladder, up along the pelvic sidewalls and then brought against the abdominal wall to minimize recurrent adhesion formation as well as prevent evisceration should a recurrent fascial dehiscence occur. We entertained the use of retained sutures, but the colostomy took up most of the left side of the incision and made that impractical. There was some focal fascial necrosis present. This was debrided and then a fascial closure was accomplished with a running #2 Vicryl stitch, which appeared to be overall reasonably satisfactory. The skin and subcutaneous tissue were packed open with iodoform gauze and a dressing applied. The patient was taken to the recovery room in a satisfactory condition. There were no evident complications. Physician acquisitions assistant, Rula Morley, played an essential role in assisting in this case, helping to position the patient, retract structures as needed, as well as suturing and cutting sutures when indicated. Her presence improved patient safety and decreased the operative time. Fredi Linn MD /[id number]
[2018-04-16] MEDS ORDERED: VANCOMYCIN IV ONE (14:00)
[2018-04-16] MEDS ORDERED: SODIUM CHLORIDE 0.9% IV ONE (14:00)
--- NOTE | 2018-04-16 15:08 | PCM.PN ---
- General Info Date of Service: 04/16/18 Subjective Update: Mr. Silva continues to slowly improve on a daily basis with improved energy level, still only taking a few steps with assistance. Gastrostomy tube remains to drainage, minimal output into colostomy thus far. Right first toe remains swollen and painful, arterial vascular studies the right leg obtained yesterday and show evidence of significant peripheral arterial disease. Discussed results with department of interventional radiology in [place]. He felt that the patient would be a candidate for revascularization but would prefer that he recovers further from his surgery before considering intervention. Functional Status: Reports: Pain Controlled, Tolerating Diet - Review of Systems General: Reports: Weakness. Denies: Fever, Chills Pulmonary: Reports: No Symptoms Cardiovascular: Reports: No Symptoms Gastrointestinal: Reports: No Symptoms Skin: Reports: Other (Pain and swelling right first toe) - Patient Data Vitals - Most Recent: Last Vital Signs Temp 98.3 F 04/16/18 13:30 Pulse 94 04/16/18 13:30 Resp 16 04/16/18 13:30 BP 126/70 04/16/18 13:30 Pulse Ox 95 04/16/18 13:30 Weight - Most Recent: 148 lb I&O - Last 24 Hours: Intake & Output 04/16/18 04/16/18 04/16/18 06:59 14:59 22:59 Intake Total 250 827 Output Total 1070 185 Balance -820 642 Lab Results Last 24 Hours: Laboratory Results - last 24 hr 04/16/18 04/16/18 Range/Units 04:51 04:51 WBC 12.4 H (4.5-11.0) K/uL RBC 3.15 L (4.30-5.90) M/uL Hgb 9.2 L (12.0-15.0) g/dL Hct 29.6 L (40.0-54.0) % MCV 94 (80-98) fL MCH 29 (27-31) pg MCHC 31 L (32-36) % Plt Count 280 (150-400) K/uL Sodium 144 (140-148) mmol/L Potassium 4.0 (3.6-5.2) mmol/L Chloride 108 (100-108) mmol/L Carbon Dioxide 28 (21-32) mmol/L Anion Gap 8.0 (5.0-14.0) mmol/L BUN 37 H (7-18) mg/dL Creatinine 0.9 (0.8-1.3) mg/dL Est Cr Clr Drug Dosing 66.14 mL/min Estimated GFR (MDRD) > 60 (>60) Glucose 115 H (74-106) mg/dL Calcium 8.7 (8.5-10.1) mg/dL Phosphorus 3.0 (2.5-4.9) mg/dL Total Bilirubin 0.4 (0.2-1.0) mg/dL AST 43 H (15-37) U/L ALT 50 (12-78) U/L Alkaline Phosphatase 166 H (46-116) U/L NT-Pro-B Natriuret Pep 383 (5-450) pg/mL Total Protein 5.8 L (6.4-8.2) g/dL Albumin 2.5 L (3.4-5.0) g/dL Globulin 3.3 (2.3-3.5) g/dL Albumin/Globulin Ratio 0.8 L (1.2-2.2) Med Orders - Current: Current Medications Acetaminophen (Tylenol) 1,000 mg GTUBE Q6H [facility] Last Admin: 04/16/18 12:16 Dose: 1,000 mg Albuterol (Proventil Neb Soln) 2.5 mg NEB Q4H PRN PRN Reason: Dyspnea Last Admin: 04/16/18 04:53 Dose: 2.5 mg Albuterol/Ipratropium (Duoneb 3.0-0.5 Mg/3 Ml) 3 ml NEB QIDRT [facility] Last Admin: 04/16/18 14:31 Dose: 3 ml Calcium Carbonate/Glycine (Tums) 1,000 mg PO Q2H PRN PRN Reason: Indigestion Last Admin: 04/15/18 20:27 Dose: 1,000 mg Dimethicone/Zinc Oxide (Rash Relief-Zinc Oxide [place]) 0 gm TOP ASDIRECTED PRN PRN Reason: Rash Last Admin: 03/28/18 16:55 Dose: 1 spray Diphenhydramine HCl (Benadryl) 25 mg IVPUSH Q6H PRN PRN Reason: Itching Last Admin: 04/14/18 20:42 Dose: 25 mg Erythromycin (Jh-Tab) 250 mg PO TID@0730,1630,2130 [facility] Last Admin: 04/16/18 08:00 Dose: 250 mg Heparin Sodium (Porcine) (Heparin Lock Flush 100 Units/Ml) 500 units FLUSH ASDIRECTED PRN PRN Reason: IV Use Last Admin: 04/14/18 16:28 Dose: 500 units Hydroxyzine HCl (Vistaril) 50 mg IM Q6H PRN PRN Reason: Pain Multivitamins/Minerals 10 ml/Chromium/Copper/Manganese/Seleni/Zn 1 ml/ Amino Ac/ Electrol/Dextrose/Calcium 1,011 mls @ 82 mls/hr IV .BY DURATION [facility] Last Admin: 04/15/18 15:16 Dose: 82 mls/hr Amino Ac/Electrol/Dextrose/Calcium (Clinimix E 15) 1,000 mls @ 82 mls/hr IV .BY DURATION [facility] Last Admin: 04/16/18 03:41 Dose: 82 mls/hr Ciprofloxacin/Dextrose 400 mg/ (Premix) 200 mls @ 200 mls/hr IV Q12H [facility] Last Admin: 04/16/18 12:10 Dose: 200 mls/hr Vancomycin HCl 1.35 gm/ Sodium (Chloride) 250 mls @ 167 mls/hr IV ONETIME ONE Stop: 04/16/18 15:29 Vancomycin HCl 1 gm/ Sodium (Chloride) 250 mls @ 167 mls/hr IV Q12H [facility] Lactobacillus Rhamnosus (Culturelle) 1 cap PO BID [facility] Last Admin: 04/16/18 08:00 Dose: 1 cap Pantoprazole Sodium (Protonix Iv) 40 mg IV Q24H [facility] Last Admin: 04/16/18 05:01 Dose: 40 mg Tramadol HCl (Ultram) 25 - 50 mg PO Q6H PRN PRN Reason: Pain Last Admin: 04/16/18 10:31 Dose: 50 mg Discontinued Medications Acetaminophen (Tylenol) 650 mg RECTAL Q4H PRN PRN Reason: Fever Acetaminophen (Tylenol) 650 mg PO Q4H PRN PRN Reason: Pain/Fever Last Admin: 04/05/18 20:14 Dose: 650 mg Albuterol/Ipratropium (Duoneb 3.0-0.5 Mg/3 Ml) 3 ml NEB Q4H PRN PRN Reason: Dyspnea Albuterol/Ipratropium (Duoneb 3.0-0.5 Mg/3 Ml) 3 ml NEB ONETIME ONE Stop: 04/07/18 10:31 Last Admin: 04/07/18 10:26 Dose: Not Given Bupivacaine HCl (Marcaine 0.5%) Confirm Administered Dose 50 ml .ROUTE .STK-MED ONE Stop: 04/07/18 12:06 Ropivacaine 34 ml/Dexamethasone 8 mg/Epinephrine HCl 0.4 mg/ Sodium Chloride 43.6 ml 0 ml NERVRT ASDIRECTED [facility] Last Admin: 04/07/18 16:01 Dose: 80 syringe Dexamethasone (Dexamethasone) Confirm Administered Dose 4 mg .ROUTE .STK-MED ONE Stop: 03/18/18 19:48 Dexamethasone (Dexamethasone) Confirm Administered Dose 4 mg .ROUTE .STK-MED ONE Stop: 04/07/18 10:56 Epinephrine HCl (Adrenalin) Confirm Administered Dose 1 mg .ROUTE .STK-MED ONE Stop: 03/18/18 21:07 Erythromycin Ethylsuccinate (Eryped 400) 125 mg PO Q6H [facility] Last Admin: 04/07/18 15:14 Dose: Not Given Fentanyl (Sublimaze) Confirm Administered Dose 250 mcg .ROUTE .STK-MED ONE Stop: 03/18/18 19:48 Fentanyl (Sublimaze) Confirm Administered Dose 250 mcg .ROUTE .STK-MED ONE Stop: 04/02/18 12:59 Fentanyl (Sublimaze) Confirm Administered Dose 250 mcg .ROUTE .STK-MED ONE Stop: 04/07/18 10:56 Furosemide (Lasix) 20 mg IVPUSH ONETIME ONE Stop: 03/23/18 09:46 Last Admin: 03/23/18 10:18 Dose: 20 mg Furosemide (Lasix) 20 mg IVPUSH NOW ONE Stop: 03/25/18 10:01 Last Admin: 03/25/18 10:17 Dose: 20 mg Furosemide (Lasix) 20 mg IVPUSH ONETIME ONE Stop: 03/26/18 09:16 Last Admin: 03/26/18 09:10 Dose: 20 mg Furosemide (Lasix) 20 mg IVPUSH ONETIME ONE Stop: 03/26/18 16:01 Last Admin: 03/26/18 18:28 Dose: Not Given Furosemide (Lasix) 20 mg IVPUSH NOW ONE Stop: 03/27/18 10:01 Last Admin: 03/27/18 10:26 Dose: 20 mg Furosemide (Lasix) 20 mg IVPUSH ONETIME ONE Stop: 03/30/18 13:11 Last Admin: 03/30/18 13:36 Dose: 20 mg Furosemide (Lasix) 20 mg IVPUSH NOW ONE Stop: 03/31/18 11:55 Last Admin: 03/31/18 13:04 Dose: 20 mg Furosemide (Lasix) 20 mg IVPUSH NOW ONE Stop: 04/01/18 12:05 Last Admin: 04/01/18 12:43 Dose: 20 mg Furosemide (Lasix) 20 mg IVPUSH NOW ONE Stop: 04/02/18 15:46 Last Admin: 04/02/18 15:53 Dose: 20 mg Furosemide (Lasix) 40 mg IVPUSH NOW ONE Stop: 04/03/18 09:01 Last Admin: 04/03/18 09:45 Dose: 40 mg Furosemide (Lasix) 40 mg IVPUSH NOW ONE Stop: 04/04/18 15:31 Last Admin: 04/04/18 15:55 Dose: 40 mg Furosemide (Lasix) 40 mg IVPUSH NOW ONE Stop: 04/05/18 09:01 Last Admin: 04/05/18 10:15 Dose: 40 mg Furosemide (Lasix) 40 mg IVPUSH ONETIME ONE Stop: 04/08/18 12:01 Last Admin: 04/08/18 11:01 Dose: 40 mg Furosemide (Lasix) 40 mg IVPUSH ONETIME STA Stop: 04/09/18 06:48 Last Admin: 04/09/18 10:16 Dose: Not Given Furosemide (Lasix) 20 mg IVPUSH ONETIME ONE Stop: 04/09/18 12:01 Last Admin: 04/09/18 13:43 Dose: Not Given Furosemide (Lasix) 40 mg IVPUSH ONETIME STA Stop: 04/09/18 10:08 Last Admin: 04/09/18 10:09 Dose: 40 mg Furosemide (Lasix) Confirm Administered Dose 40 mg .ROUTE .STK-MED ONE Stop: 04/09/18 10:08 Last Admin: 04/09/18 10:16 Dose: 40 mg Furosemide (Lasix) 40 mg IVPUSH ONETIME ONE Stop: 04/09/18 16:01 Last Admin: 04/09/18 15:54 Dose: 40 mg Furosemide (Lasix) 40 mg IVPUSH ONETIME ONE Stop: 04/10/18 12:01 Last Admin: 04/10/18 14:03 Dose: 40 mg Furosemide (Lasix) 20 mg IVPUSH ONETIME ONE Stop: 04/10/18 20:01 Last Admin: 04/10/18 21:10 Dose: 20 mg Furosemide (Lasix) 40 mg IVPUSH NOW ONE Stop: 04/11/18 11:31 Last Admin: 04/11/18 12:58 Dose: 40 mg Furosemide (Lasix) 40 mg IVPUSH NOW ONE Stop: 04/12/18 11:21 Last Admin: 04/12/18 13:28 Dose: 40 mg Furosemide (Lasix) Confirm Administered Dose 40 mg .ROUTE .STK-MED ONE Stop: 04/12/18 13:27 Last Admin: 04/12/18 13:52 Dose: Not Given Furosemide (Lasix) 40 mg IVPUSH NOW ONE Stop: 04/13/18 08:31 Last Admin: 04/13/18 08:42 Dose: 40 mg Furosemide (Lasix) 40 mg IVPUSH NOW ONE Stop: 04/14/18 10:01 Last Admin: 04/14/18 10:09 Dose: 40 mg Glycopyrrolate (Robinul) Confirm Administered Dose 1 mg .ROUTE .STK-MED ONE Stop: 03/18/18 19:48 Glycopyrrolate (Robinul) Confirm Administered Dose 1 mg .ROUTE .STK-MED ONE Stop: 04/07/18 10:56 Heparin Sodium (Porcine) (Heparin Sodium) Confirm Administered Dose 5,000 units .ROUTE .STK-MED ONE Stop: 03/18/18 19:51 Heparin Sodium (Porcine) (Heparin Lock Flush 100 Units/Ml) Confirm Administered Dose 500 units .ROUTE .STK-MED ONE Stop: 03/22/18 12:17 Last Admin: 03/22/18 12:30 Dose: Not Given Heparin Sodium (Porcine) (Heparin Sodium) Confirm Administered Dose 5,000 units .ROUTE .STK-MED ONE Stop: 03/24/18 19:52 Last Admin: 03/24/18 20:33 Dose: 5,000 units Heparin Sodium (Porcine) (Heparin Lock Flush 100 Units/Ml) Confirm Administered Dose 1,000 units .ROUTE .STK-MED ONE Stop: 04/07/18 12:06 Last Admin: 04/07/18 14:30 Dose: 500 units Hydrocortisone Sodium Succinate (Solu-Cortef) 100 mg IVPUSH Q12H [facility] Last Admin: 03/28/18 20:15 Dose: 100 mg Hydrocortisone Sodium Succinate (Solu-Cortef) 100 mg IVPUSH DAILY [facility] Last Admin: 03/30/18 13:39 Dose: Not Given Hydromorphone HCl (Dilaudid) 0.5 mg IVPUSH ONETIME ONE Stop: 03/18/18 17:43 Last Admin: 03/18/18 17:47 Dose: 0.5 mg Hydromorphone HCl (Dilaudid) 1 mg IVPUSH ONETIME ONE Stop: 03/18/18 18:18 Last Admin: 03/18/18 18:27 Dose: 1 mg Hydromorphone HCl (Dilaudid) 0.5 mg IVPUSH ONETIME ONE Stop: 04/16/18 09:58 Last Admin: 04/16/18 10:31 Dose: 0.5 mg Hydroxyzine HCl (Vistaril) 100 mg IM Q6H PRN PRN Reason: Pain Last Admin: 04/11/18 08:49 Dose: 100 mg Sodium Chloride (Normal Saline) 1,000 mls @ 1,000 mls/hr IV ASDIRECTED [facility] Last Admin: 03/18/18 17:47 Dose: 1,000 mls/hr Sodium Chloride (Normal Saline) 1,000 mls @ 999 mls/hr IV ASDIRECTED [facility] Last Admin: 03/18/18 19:31 Dose: 999 mls/hr Meropenem 500 mg/ Sodium (Chloride) 50 mls @ 100 mls/hr IV ONETIME ONE Stop: 03/18/18 19:09 Last Admin: 03/18/18 19:01 Dose: 100 mls/hr Sodium Chloride (Normal Saline) Confirm Administered Dose 50 mls @ as directed .ROUTE .STK-MED ONE Stop: 03/18/18 19:40 Last Admin: 03/18/18 20:19 Dose: Not Given Aztreonam 2 gm/ Sodium (Chloride) 50 mls @ 100 mls/hr IV ONETIME ONE Stop: 03/18/18 20:01 Last Admin: 03/18/18 20:44 Dose: 100 mls/hr Meropenem 500 mg/ Sodium (Chloride) 50 mls @ 100 mls/hr IV ONETIME ONE Stop: 03/18/18 20:00 Last Admin: 03/18/18 19:40 Dose: 100 mls/hr Sodium Chloride (Normal Saline) Confirm Administered Dose 250 mls @ as directed .ROUTE .ST-MED ONE Stop: 03/18/18 19:59 Lactated Ringer's (Ringers, Lactated) Confirm Administered Dose 1,000 mls @ as directed .ROUTE .STK-MED ONE Stop: 03/18/18 19:59 Sodium Chloride (Normal Saline) Confirm Administered Dose 500 mls @ as directed .ROUTE .[facility]-MED ONE Stop: 03/18/18 19:59 Norepinephrine Bitartrate 8 mg (/ Dextrose/Water) 258 mls @ 3.87 mls/hr IV TITRATE [facility]; Protocol Last Admin: 03/19/18 11:45 Dose: 12 mcg/min, 23.22 mls/hr Lactated Ringer's (Ringers, Lactated) Confirm Administered Dose 1,000 mls @ as directed [facility] Stop: 03/18/18 21:42 Propofol (Diprivan 100 Ml) 100 mls @ 2.082 mls/hr IV TITRATE [facility]; Protocol Last Titration: 03/27/18 06:35 Dose: 10 mcg/kg/min, 4.164 mls/hr Aztreonam 1 gm/ Sodium (Chloride) 50 mls @ 100 mls/hr IV Q8H [facility] Last Admin: 03/19/18 05:29 Dose: 100 mls/hr Potassium Chloride/Dextrose/Sod Cl (D5 1/2 Ns W/ 20 Meq/L Kcl) 1,000 mls @ 150 mls/hr IV ASDIRECTED [facility] Last Admin: 03/18/18 23:11 Dose: 150 mls/hr Meropenem 1 gm/ Sodium (Chloride) 50 mls @ 100 mls/hr IV Q12H [facility] Stop: 03/29/18 22:00 Last Admin: 03/29/18 20:10 Dose: 100 mls/hr Lactated Ringer's (Ringers, Lactated) 1,000 mls @ 500 mls/hr IV ASDIRECTED [facility] Last Admin: 03/19/18 01:23 Dose: 500 mls/hr Vasopressin 100 units/ (Dextrose/Water) 255 mls @ 1.53 mls/hr IV TITRATE [facility]; Protocol Stop: 03/21/18 13:00 Last Titration: 03/21/18 11:03 Dose: 0.02 units/min, 3.06 mls/hr Lactated Ringer's (Ringers, Lactated) 1,000 mls @ 500 mls/hr IV BOLUS [facility] Stop: 03/19/18 05:29 Last Admin: 03/19/18 04:02 Dose: 500 mls/hr Aztreonam/Dextrose 1 gm/ (Premix) 50 mls @ 100 mls/hr IV Q8H [facility] Last Admin: 03/28/18 05:26 Dose: 100 mls/hr Lactated Ringer's (Ringers, Lactated) 1,000 mls @ 500 mls/hr IV .BOLUS ONE Stop: 03/19/18 14:59 Last Admin: 03/19/18 14:27 Dose: 500 mls/hr Lactated Ringer's (Ringers, Lactated) 1,000 mls @ 150 mls/hr IV ASDIRECTED [facility] Last Admin: 03/21/18 11:53 Dose: 150 mls/hr Norepinephrine Bitartrate 8 mg (/ Dextrose/Water) 250 mls @ 3.75 mls/hr IV TITRATE [facility]; Protocol Last Titration: 03/27/18 09:04 Dose: 4 mcg/min, 7.5 mls/hr Magnesium Sulfate 2 gm/ Premix 50 mls @ 25 mls/hr IV Q6H [facility] Stop: 03/20/18 17:59 Last Admin: 03/20/18 16:30 Dose: 25 mls/hr Vancomycin HCl 1.25 gm/ Sodium (Chloride) 250 mls @ 170 mls/hr IV Q24H [facility] Last Admin: 03/22/18 10:06 Dose: 170 mls/hr Vasopressin 40 units/ Dextrose (/Water) 100 mls @ 3 mls/hr IV TITRATE [facility]; Protocol Last Titration: 03/23/18 01:00 Dose: 0 units/min, 0 mls/hr Potassium Chloride 20 meq/ (Premix) 100 mls @ 50 mls/hr IV Q2H [facility] Stop: 03/21/18 22:59 Last Admin: 03/21/18 22:20 Dose: 50 mls/hr Potassium Chloride 20 meq/ (Premix) 100 mls @ 50 mls/hr IV Q2H [facility] Stop: 03/22/18 12:59 Last Admin: 03/22/18 11:30 Dose: 50 mls/hr Potassium Chloride 20 meq/ (Premix) 100 mls @ 50 mls/hr IV Q2H [facility] Stop: 03/22/18 17:29 Last Admin: 03/22/18 16:13 Dose: 50 mls/hr Potassium Chloride (Kcl 20 Meq In Water 100 Ml) 100 mls @ 50 mls/hr IV Q2H [facility] Stop: 03/23/18 01:59 Last Admin: 03/23/18 00:53 Dose: 50 mls/hr Potassium Chloride 40 meq/ (Premix) 100 mls @ 25 mls/hr IV ONETIME ONE Stop: 03/23/18 14:29 Last Admin: 03/23/18 10:31 Dose: 25 mls/hr Vancomycin HCl 1.4 gm/ Sodium (Chloride) 250 mls @ 170 mls/hr IV Q24H [facility] Last Admin: 03/24/18 11:13 Dose: 170 mls/hr Multivitamins/Minerals 10 ml/Chromium/Copper/Manganese/Seleni/Zn 1 ml/ Amino Ac/ Electrol/Dextrose/Calcium 1,011 mls @ 75 mls/hr IV .BY DURATION [facility] Last Admin: 03/25/18 22:34 Dose: 75 mls/hr Amino Ac/Electrol/Dextrose/Calcium (Clinimix E 5/15) 1,000 mls @ 75 mls/hr IV .BY DURATION [facility] Last Admin: 03/25/18 08:11 Dose: 75 mls/hr Vasopressin 100 units/ (Dextrose/Water) 255 mls @ 1.53 mls/hr IV TITRATE [facility]; Protocol Last Titration: 03/25/18 11:51 Dose: 0 units/min, 0 mls/hr Potassium Chloride 20 meq/ (Premix) 100 mls @ 50 mls/hr IV Q2H [facility] Stop: 03/24/18 13:59 Last Admin: 03/24/18 12:13 Dose: 50 mls/hr Multivitamins/Minerals 10 ml/Chromium/Copper/Manganese/Seleni/Zn 1 ml/ Amino Ac/ Electrol/Dextrose/Calcium 1,011 mls @ 75 mls/hr IV .BY DURATION [facility] Last Admin: 03/29/18 06:48 Dose: 75 mls/hr Amino Ac/Electrol/Dextrose/Calcium (Clinimix E 15) 1,000 mls @ 75 mls/hr IV .BY DURATION [facility] Last Admin: 03/29/18 20:12 Dose: 75 mls/hr Heparin Sodium (Porcine) 5,000 (units/ Sodium Chloride) 501 mls @ 5 mls/hr IV ASDIRECTED [facility] Last Admin: 03/27/18 12:50 Dose: 5 mls/hr Sodium Chloride (Normal Saline) 1,000 mls @ 50 mls/hr IV ASDIRECTED [facility] Last Admin: 03/30/18 13:36 Dose: 50 mls/hr Dextrose/Sodium Chloride (Dextrose 5%-1/2 Ns) 1,000 mls @ 75 mls/hr IV ASDIRECTED [facility] Last Admin: 03/31/18 23:53 Dose: 75 mls/hr Albumin Human (Albumin 25%) 25 gm in 100 mls @ 25 mls/hr IV Q24H [facility] Stop: 04/02/18 12:59 Last Admin: 04/01/18 08:13 Dose: 25 mls/hr Potassium Phosphate 20 mmole/ (Sodium Chloride) 256.6667 mls @ 85 mls/hr IV Q3H [facility] Stop: 04/01/18 18:59 Last Admin: 04/01/18 18:37 Dose: 85 mls/hr Dextrose/Sodium Chloride (Dextrose 5%-1/2 Ns) 1,000 mls @ 80 mls/hr IV ASDIRECTED [facility] Last Admin: 04/03/18 06:40 Dose: 80 mls/hr Cefazolin Sodium/Dextrose 2 gm (/ Premix) 50 mls @ 100 mls/hr IV ONCALL ONE Stop: 04/02/18 11:59 Last Admin: 04/02/18 13:59 Dose: 100 mls/hr Potassium Acetate 20 meq/ (Sodium Chloride) 110 mls @ 55 mls/hr IV Q2H [facility] Stop: 04/02/18 11:59 Last Admin: 04/02/18 10:10 Dose: 55 mls/hr Magnesium Sulfate 2 gm/ Premix 50 mls @ 25 mls/hr IV Q6H [facility] Stop: 04/05/18 07:59 Last Admin: 04/03/18 12:11 Dose: 25 mls/hr Albumin Human (Albumin 25%) 25 gm in 100 mls @ 25 mls/hr IV ONETIME ONE Stop: 04/02/18 17:59 Last Admin: 04/02/18 15:30 Dose: 25 mls/hr Potassium Chloride 20 meq/Lidocaine HCl 2 ml/ Sodium Chloride 112 mls @ 56 mls/ hr IV Q2H [facility] Stop: 04/03/18 17:59 Last Admin: 04/03/18 17:04 Dose: 56 mls/hr Magnesium Sulfate 2 gm/ Premix 50 mls @ 25 mls/hr IV Q6H [facility] Stop: 04/08/18 03:59 Last Admin: 04/07/18 15:14 Dose: Not Given Potassium Phosphate 15 mmole/ (Sodium Chloride) 255 mls @ 128 mls/hr IV Q2H [facility] Stop: 04/06/18 13:59 Last Admin: 04/06/18 12:49 Dose: 128 mls/hr Dextrose/Lactated Ringer's (Dextrose 5%-Lactated Ringers) 1,000 mls @ 100 mls/ hr IV ASDIRECTED [facility] Last Admin: 04/07/18 08:44 Dose: 100 mls/hr Meropenem 500 mg/ Sodium (Chloride) 50 mls @ 100 mls/hr IV ONCALL ONE Stop: 04/07/18 11:59 Last Admin: 04/07/18 15:13 Dose: Not Given Linezolid (Zyvox) Confirm Administered Dose 300 mls @ as directed .ROUTE .STK- MED ONE Stop: 04/07/18 15:26 Lactated Ringer's (Ringers, Lactated) Confirm Administered Dose 1,000 mls @ as directed .ROUTE .STK-MED ONE Stop: 04/07/18 15:35 Linezolid 600 mg/ Premix 300 mls @ 300 mls/hr IV ONETIME ONE Stop: 04/07/18 17:29 Last Admin: 04/07/18 16:25 Dose: 300 mls/hr Dextrose/Lactated Ringer's (Dextrose 5%-Lactated Ringers) 1,000 mls @ 175 mls/ hr IV ASDIRECTED [facility] Last Admin: 04/08/18 06:21 Dose: 175 mls/hr Linezolid 600 mg/ Premix 300 mls @ 300 mls/hr IV Q12H [facility] Last Admin: 04/10/18 03:46 Dose: 300 mls/hr Meropenem 500 mg/ Sodium (Chloride) 50 mls @ 100 mls/hr IV Q8H [facility] Last Admin: 04/11/18 06:23 Dose: 100 mls/hr Magnesium Sulfate 2 gm/ Premix 50 mls @ 25 mls/hr IV Q6H [facility] Stop: 04/09/18 13:59 Last Admin: 04/09/18 11:40 Dose: 25 mls/hr Dextrose/Lactated Ringer's (Dextrose 5%-Lactated Ringers) 1,000 mls @ 100 drops /hr IV ASDIRECTED [facility] Last Admin: 04/09/18 11:39 Dose: 100 drops/hr Albumin Human (Albumin 25%) 25 gm in 100 mls @ 25 mls/hr IV Q24H [facility] Stop: 04/12/18 13:59 Last Admin: 04/12/18 09:28 Dose: 25 mls/hr Albumin Human (Albumin 25%) 25 gm in 100 mls @ 25 mls/hr IV Q24H [facility] Stop: 04/12/18 17:59 Last Admin: 04/12/18 14:19 Dose: 25 mls/hr Dextrose/Lactated Ringer's (Dextrose 5%-Lactated Ringers) 1,000 mls @ 25 mls/ hr IV ASDIRECTED [facility] Sodium Chloride (Normal Saline) 1,000 mls @ 0 mls/hr IV ASDIRECTED [facility] Potassium Phosphate 22.5 mmole (/ Sodium Chloride) 257.5 mls @ 86 mls/hr IV Q3H [facility] Stop: 04/10/18 15:59 Last Admin: 04/10/18 14:47 Dose: 86 mls/hr Calcium Gluconate 1 gm/ Sodium (Chloride) 110 mls @ 100 mls/hr IV Q6H [facility] Stop: 04/10/18 18:05 Last Admin: 04/10/18 16:21 Dose: 100 mls/hr Doxycycline Hyclate 100 mg/ (Sodium Chloride) 100 mls @ 100 mls/hr IV Q12H [facility] Last Admin: 04/16/18 12:08 Dose: 100 mls/hr Acetaminophen 1,000 mg/ Premix 100 mls @ 400 mls/hr IV Q6H [facility] Stop: 04/12/18 06:44 Last Admin: 04/12/18 05:47 Dose: 400 mls/hr Potassium Chloride 20 meq/ (Premix) 100 mls @ 50 mls/hr IV Q2H [facility] Stop: 04/12/18 14:59 Last Admin: 04/12/18 13:29 Dose: 50 mls/hr Potassium Chloride 40 meq/ (Premix) 100 mls @ 25 mls/hr IV ONETIME ONE Stop: 04/12/18 12:19 Potassium Chloride 40 meq/ (Premix) 100 mls @ 25 mls/hr IV ONETIME ONE Stop: 04/12/18 20:59 Last Admin: 04/12/18 17:45 Dose: 25 mls/hr Potassium Phosphate 25 mmole/ (Sodium Chloride) 108.3333 mls @ 27 mls/hr IV Q4H [facility] Stop: 04/13/18 21:29 Last Admin: 04/13/18 18:13 Dose: 27 mls/hr Magnesium Sulfate 2 gm/ Premix 50 mls @ 25 mls/hr IV Q6H [facility] Stop: 04/17/18 04:59 Last Admin: 04/15/18 08:34 Dose: 25 mls/hr Insulin Human Lispro (Humalog) 0 unit SUBCUT Q6H [facility]; Protocol Last Admin: 03/30/18 16:32 Dose: Not Given Insulin Human Lispro (Humalog) 0 unit SUBCUT Q6H [facility]; Protocol Last Admin: 03/31/18 03:52 Dose: Not Given Insulin Human Lispro (Humalog) 0 unit SUBCUT QIDACANDBED [facility]; Protocol Stop: 04/12/18 11:01 Last Admin: 03/31/18 13:17 Dose: Not Given Lidocaine/Epinephrine (Xylocaine 1% With Epinephrine 1:100,000) Confirm Administered Dose 50 ml .ROUTE .STK-MED ONE Stop: 04/07/18 12:06 Linezolid (Zyvox) 600 mg IRR .STK-MED ONE Stop: 04/07/18 16:06 Last Admin: 04/07/18 16:05 Dose: 600 mg Loperamide HCl (Imodium) 2 mg PO ASDIRECTED PRN PRN Reason: DIARRHEA Melatonin (Melatonin) 9 mg PO BEDTIME [facility] Last Admin: 04/06/18 21:40 Dose: 9 mg Meropenem (Merrem) Confirm Administered Dose 500 mg .ROUTE .STK-MED ONE Stop: 03/18/18 19:40 Last Admin: 03/18/18 20:19 Dose: Not Given Meropenem (Merrem) Confirm Administered Dose 500 mg .ROUTE .STK-MED ONE Stop: 04/07/18 14:38 Last Admin: 04/07/18 16:00 Dose: 500 mg Meropenem (Merrem) Confirm Administered Dose 500 mg .ROUTE .STK-MED ONE Stop: 04/07/18 15:08 Last Admin: 04/07/18 16:05 Dose: 500 mg Midazolam HCl (Versed 1 Mg/Ml) Confirm Administered Dose 2 mg .ROUTE .STK-MED ONE Stop: 04/02/18 12:59 Morphine Sulfate (Morphine) 4 mg IVPUSH Q2H PRN PRN Reason: Pain Last Admin: 03/29/18 07:34 Dose: 4 mg Morphine Sulfate (Morphine Steam Pan Sponger 150 Mg In 30 Ml) 0 mg IV ASDIRECTED PRN; Protocol PRN Reason: Pain Last Admin: 04/07/18 10:00 Dose: 150 mg Morphine Sulfate (Morphine Steam Pan Sponger 150 Mg In 30 Ml) 0 mg IV ASDIRECTED PRN; Protocol PRN Reason: Pain Naloxone HCl (Narcan) 0.1 mg IV ASDIRECTED PRN PRN Reason: decreased respiratory rate Neostigmine Methylsulfate (Neostigmine) Confirm Administered Dose 5 mg .ROUTE .STK-MED ONE Stop: 03/18/18 19:48 Neostigmine Methylsulfate (Neostigmine) Confirm Administered Dose 5 mg .ROUTE .STK-MED ONE Stop: 04/07/18 10:56 Non-Formulary Medication (Total Parenteral Nutrition, Central) 1,000 ml .XX .Continue Order [facility]; Protocol Stop: 03/24/18 11:31 Non-Formulary Medication (Total Parenteral Nutrition, Central) 1,000 ml .XX .Continue Order [facility]; Protocol Non-Formulary Medication (Total Parenteral Nutrition, Central) 1,000 ml .XX .Continue Order [facility]; Protocol Non-Formulary Medication (Total Parenteral Nutrition, Central) 1,000 ml .XX .Continue Order [facility]; Protocol Stop: 03/28/18 12:00 Non-Formulary Medication (Total Parenteral Nutrition, Central) 1,000 ml .XX .Continue Order [facility] Stop: 04/08/18 08:01 Non-Formulary Medication (Total Parenteral Nutrition, Central) 1,000 ml .XX .Continue Order [facility] Stop: 04/09/18 10:00 Non-Formulary Medication (Total Parenteral Nutrition, Central) 1,000 ml .XX .Continue Order [facility] Stop: 04/10/18 10:00 Non-Formulary Medication (Total Parenteral Nutrition, Central) 1,000 ml .XX .Continue Order [facility] Stop: 04/11/18 10:00 Non-Formulary Medication (Total Parenteral Nutrition, Central) 1,000 ml .XX .Continue Order [facility] Stop: 04/12/18 12:00 Non-Formulary Medication (Total Parenteral Nutrition, Central) 1,000 ml .XX .Continue Order [facility] Stop: 04/13/18 12:00 Non-Formulary Medication (Total Parenteral Nutrition, Central) 1,000 ml .XX .Continue Order [facility] Stop: 04/15/18 07:46 Non-Formulary Medication (Total Parenteral Nutrition, Central) 1,000 ml .XX .Continue Order [facility] Stop: 04/16/18 10:00 Nystatin (Mycostatin) 5 ml PO QID [facility] Last Admin: 04/04/18 15:25 Dose: 5 ml Ondansetron HCl (Zofran) 4 mg IVPUSH ONETIME ONE Stop: 03/18/18 18:18 Last Admin: 03/18/18 18:27 Dose: 4 mg Ondansetron HCl (Zofran) Confirm Administered Dose 4 mg .ROUTE .STK-MED ONE Stop: 03/18/18 19:48 Ondansetron HCl (Zofran) Confirm Administered Dose 4 mg .ROUTE .STK-MED ONE Stop: 04/07/18 10:56 Oxycodone HCl (Oxycodone) 5 mg PO Q4H PRN PRN Reason: Pain (moderate 4-6) Last Admin: 04/06/18 05:19 Dose: 5 mg Pantoprazole Sodium (Protonix Iv) 40 mg IVPUSH DAILY [facility] Last Admin: 03/28/18 08:34 Dose: 40 mg Pantoprazole Sodium (Protonix) 40 mg PO ACBREAKFAST [facility] Last Admin: 04/07/18 08:10 Dose: 40 mg Phenylephrine HCl (Isaías-Synephrine) Confirm Administered Dose 10 mg .ROUTE .STK- MED ONE Stop: 03/18/18 20:05 Potassium Chloride (Klor-Con M20) 40 meq PO ONETIME ONE Stop: 04/03/18 13:16 Last Admin: 04/03/18 14:33 Dose: 40 meq Potassium Chloride (Klor-Con M20) 40 meq PO ONETIME ONE Stop: 04/03/18 17:01 Last Admin: 04/03/18 20:55 Dose: 40 meq Potassium Chloride (Klor-Con M20) 40 meq PO ONETIME ONE Stop: 04/04/18 09:01 Last Admin: 04/04/18 09:34 Dose: 40 meq Potassium Chloride (Klor-Con M20) 40 meq PO ONETIME ONE Stop: 04/04/18 17:01 Last Admin: 04/04/18 17:08 Dose: 40 meq Potassium Chloride (Klor-Con M20) 40 meq PO ONETIME ONE Stop: 04/05/18 09:01 Last Admin: 04/05/18 10:14 Dose: 40 meq Potassium Chloride (Klor-Con M20) 40 meq PO ONETIME ONE Stop: 04/05/18 17:01 Last Admin: 04/05/18 18:00 Dose: 40 meq Potassium Chloride (Klor-Con M20) 40 meq PO ONETIME ONE Stop: 04/13/18 08:31 Last Admin: 04/13/18 08:42 Dose: 40 meq Potassium Chloride (Klor-Con M20) 40 meq PO ONETIME ONE Stop: 04/13/18 13:01 Last Admin: 04/13/18 12:44 Dose: 40 meq Potassium Chloride (Klor-Con M20) 40 meq PO ONETIME ONE Stop: 04/13/18 17:01 Last Admin: 04/13/18 16:57 Dose: 40 meq Potassium Chloride (Klor-Con M20) 40 meq PO ONETIME ONE Stop: 04/15/18 14:31 Last Admin: 04/15/18 15:16 Dose: 40 meq Prednisone (Prednisone) 20 mg PO WITHBREAKFAST [facility] Last Admin: 03/30/18 08:59 Dose: 20 mg Propofol (Diprivan 20 Ml) Confirm Administered Dose 200 mg .ROUTE .STK-MED ONE Stop: 03/18/18 19:48 Propofol (Diprivan 20 Ml) Confirm Administered Dose 200 mg .ROUTE .STK-MED ONE Stop: 04/02/18 12:59 Propofol (Diprivan 20 Ml) Confirm Administered Dose 200 mg .ROUTE .STK-MED ONE Stop: 04/07/18 10:56 Rocuronium [place] (Zemuron) Confirm Administered Dose 50 mg .ROUTE .STK-MED ONE Stop: 03/18/18 19:48 Rocuronium [place] (Zemuron) Confirm Administered Dose 50 mg .ROUTE .STK-MED ONE Stop: 04/07/18 10:56 Succinylcholine Chloride (Quelicin) Confirm Administered Dose 200 mg .ROUTE .STK -MED ONE Stop: 03/18/18 19:48 Vancomycin HCl (Vancomycin) 1 gm IV .PHARMACY TO DOSE [facility] Stop: 03/21/18 16:00 Vancomycin HCl (Vancomycin) 1 gm IV .PHARMACY TO DOSE [facility] Stop: 04/16/18 14:00 - Exam Quality Assessment: Central Line/PICC, Urine Catheter, DVT Prophylaxis. No: Supplemental Oxygen General: Alert, Oriented, Cooperative, Mild Distress Lungs: Clear to Auscultation, Normal Respiratory Effort Cardiovascular: Regular Rate, Regular Rhythm, No Murmurs GI/Abdominal Exam: Soft, Non-Tender, No Organomegaly, No Distention Extremities: Non-Tender, No Pedal Edema - Problem List Review Problem List Initiated/Reviewed/Updated: Yes - My Orders Last 24 Hours: My Active Orders 04/16/18 14:00 Vancomycin 1.35 gm Sodium Chloride 0.9% [Normal Saline] 250 ml IV ONETIME 04/17/18 02:00 Vancomycin 1 gm Sodium Chloride 0.9% [Normal Saline] 250 ml IV Q12H - Plan Plan:: ASSESSMENT AND PLAN WOUND DEHISCENCE WITH UNDERLYING ABSCESS - status post exploratory laparotomy . Seems to be slowly improving on a daily basis, more alert and interactive oral intake seems to be very slowly improving -Ciprofloxacin 400 mg IV every 12 hours -Echo mycin 1 g IV every 12 hours -Surgical follow-up per surgery team SIGMOID COLON PERFORATION RESULTING IN ACUTE ABDOMEN AND SEPTIC SHOCK - postop course complicated by wound dehiscence as above. He is receiving nutritional support via TPN. Persistent difficulty with ileus. -Continue TPN initiated today -Post operative per surgical team -Pain control -Saline lock IV SEPTIC SHOCK - resolved ACUTE HYPOXIC RESPIRATORY FAILURE - respiratory status stable with diuresis -Coughing, deep breathing and suctioning as able -Furosemide daily OSTEOMYELITIS RIGHT FIRST TOE-pain and swelling improved from yesterday, attempt at obtaining MRI was unsuccessful because of movement. Arterial Doppler study showed evidence of significant peripheral arterial disease in the right leg. -Outpatient follow-up with interventional radiology in [place] after he has healed from recent surgeries -Antibiotic therapy as above COPD - [id number] smoking history but no evidence for exacerbation at this time. -Nebulized albuterol as needed -Vigorous pulmonary toilet during the postoperative period HISTORY OF LUNG AND PROSTATE CARCINOMA - lung cancer felt to be stable, had been receiving treatment for management of prostate carcinoma prior to admission MAINTENANCE ISSUES -DVT prophylaxis; SCUDs -GI prophylaxis; Protonix 40 mg daily -Sorto catheter; placed at the time of surgery for strict intake and output monitoring -Nutrition; nothing by mouth DISPOSITION - anticipate discharge to custodial after the hospital stay.
[2018-04-17] MEDS: traMADol 50 MG Tab PO PRN (02:21)
[2018-04-17] MEDS: diphenhydrAMINE 50 MG/ML SDV IVPUSH PRN ×2 (03:40→04:23)
[2018-04-17] MEDS: 1: AA 5%/Calcium/D15W/Lytes 1,000 ML with MVI, Adult with Vitamin K 10 ML, Chromium/Copp IV SCH ×6 (03:40→15:48)
[2018-04-17] MEDS: Albuterol 0.083% 2.5 MG/3 ML Neb Soln NEB PRN (05:03)
[2018-04-17] MEDS: Pantoprazole 40 MG Vial IV SCH (05:04)
[2018-04-17] MEDS ORDERED: methylPREDNISolone Sodium Succinate 125 MG/2 ML SDV IVPUSH ONE (05:48)
[2018-04-17] MEDS: Acetaminophen Soln 650 MG/20.3 ML UD Cup GTUBE SCH ×3 (06:02→20:22)
[2018-04-17] MEDS ORDERED: Central Total Parenteral Nutrition Bag SCH (07:15)
[2018-04-17] MEDS: Albuterol/Ipratropium 3.0-0.5 MG/3 ML Neb Soln NEB SCH ×4 (07:27→20:22)
--- NOTE | 2018-04-17 09:49 | PN ---
DATE OF SERVICE: 04/17/2018 SUBJECTIVE: Kodak was sitting up in the chair this morning. He was given IV vancomycin and started itching, was given Solu-Medrol. He also put some sort of topical cream on his skin. He states the itching is a little bit better. Denies pain. REVIEW OF SYSTEMS: Remainder of review of systems negative for any pertinent positives and negatives. OBJECTIVE: GENERAL: Kodak Silva is a 77-year-old male. VITAL SIGNS: TPR is 99.3, 79, 18, blood pressure 127/60. HEENT: Negative. NECK: Supple. HEART: Regular rate and rhythm. ABDOMEN: Negative. EXTREMITIES: Without peripheral edema. No change. SKIN: Right great toe skin, faint pink rash is noted. ASSESSMENT: 1. Allergic reaction to vancomycin. 2. Right osteomyelitis with diffuse atherosclerotic disease, suspected hemodynamically significant disease in the mid superficial femoral artery with monophasic flow. 3. Insertion of left subclavian triple lumen, exploratory laparotomy, drainage of intraabdominal abscess, small bowel resection, small bowel stricturoplasty and placement of Vicryl mesh for closure of fascial dehiscence and evisceration of the intraabdominal abscess and focal small bowel stricture, focal areas of small bowel deserosalization and insertion of the subclavian triple lumen. Date of surgery 04/07/2018. Surgeon, Fredi Linn MD. 4. Percutaneous endoscopic gastrostomy tube placement for malnutrition with inadequate oral intake. Date of procedure, 04/02/2018. Surgeon, Fredi Linn. 5. Exploratory laparotomy, peritoneal lavage, sigmoid colon resection, left colostomy, Cristina's pouch for acute abdomen with perforated viscus and sepsis. Date of surgery, 03/18/2018. Surgeon, Espinoza Adams MD. 6. Malnutrition requiring TPN therapy. PLAN: Continue same TPN rate and content. Check CBC, CMP, mag, phos, and BNP in a.m. Rula Morley PA-C /[id number]
[2018-04-17] MEDS: Erythromycin Base 250 MG Cap.CR PO SCH ×2 (10:03→20:22)
[2018-04-17] MEDS: Lactobacillus Rhamnosus GG (Probiotic) Cap PO SCH ×2 (10:03→20:22)
--- NOTE | 2018-04-17 12:10 | PCM.PN ---
- General Info Date of Service: 04/17/18 Subjective Update: Mr. Silva has remained stable since yesterday, vital signs have been within the desired range and he has remained afebrile. Overall strength continues to slowly improve, not yet tolerating full liquid diet, gastrostomy tube still to drainage. Right first toe is less tender, but still inflamed. Functional Status: Reports: Pain Controlled, Ambulating. Denies: Tolerating Diet - Review of Systems General: Reports: Weakness. Denies: Fever, Chills Pulmonary: Reports: No Symptoms Cardiovascular: Reports: No Symptoms Gastrointestinal: Reports: Abdominal Pain. Denies: Diarrhea, Difficulty Swallowing, Nausea, Vomiting - Patient Data Vitals - Most Recent: Last Vital Signs Temp 99 F 04/17/18 11:53 Pulse 108 H 04/17/18 11:53 Resp 16 04/17/18 11:53 BP 109/57 L 04/17/18 11:53 Pulse Ox 93 L 04/17/18 11:53 Weight - Most Recent: 149 lb 3.2 oz I&O - Last 24 Hours: Intake & Output 04/16/18 04/17/18 04/17/18 22:59 06:59 14:59 Intake Total 3740 200 Output Total 1775 625 Balance 1965 -425 Lab Results Last 24 Hours: Laboratory Results - last 24 hr 04/17/18 04/17/18 Range/Units 04:41 04:41 WBC 11.5 H (4.5-11.0) K/uL RBC 3.00 L (4.30-5.90) M/uL Hgb 8.7 L (12.0-15.0) g/dL Hct 28.5 L (40.0-54.0) % MCV 95 (80-98) fL MCH 29 (27-31) pg MCHC 31 L (32-36) % Plt Count 293 (150-400) K/uL Sodium 144 (140-148) mmol/L Potassium 4.3 (3.6-5.2) mmol/L Chloride 109 H (100-108) mmol/L Carbon Dioxide 27 (21-32) mmol/L Anion Gap 12.3 (5.0-14.0) mmol/L BUN 34 H (7-18) mg/dL Creatinine 0.9 (0.8-1.3) mg/dL Est Cr Clr Drug Dosing 66.14 mL/min Estimated GFR (MDRD) > 60 (>60) Glucose 101 (74-106) mg/dL Calcium 8.4 L (8.5-10.1) mg/dL Phosphorus 3.6 (2.5-4.9) mg/dL Total Bilirubin 0.4 (0.2-1.0) mg/dL AST 37 (15-37) U/L ALT 49 (12-78) U/L Alkaline Phosphatase 143 H (46-116) U/L NT-Pro-B Natriuret Pep 244 (5-450) pg/mL Total Protein 5.5 L (6.4-8.2) g/dL Albumin 2.3 L (3.4-5.0) g/dL Globulin 3.2 (2.3-3.5) g/dL Albumin/Globulin Ratio 0.7 L (1.2-2.2) Med Orders - Current: Current Medications Acetaminophen (Tylenol) 1,000 mg GTUBE Q6H [facility] Last Admin: 04/17/18 06:02 Dose: 1,000 mg Albuterol (Proventil Neb Soln) 2.5 mg NEB Q4H PRN PRN Reason: Dyspnea Last Admin: 04/17/18 05:03 Dose: 2.5 mg Albuterol/Ipratropium (Duoneb 3.0-0.5 Mg/3 Ml) 3 ml NEB QIDRT [facility] Last Admin: 04/17/18 11:02 Dose: 3 ml Calcium Carbonate/Glycine (Tums) 1,000 mg PO Q2H PRN PRN Reason: Indigestion Last Admin: 04/15/18 20:27 Dose: 1,000 mg Dimethicone/Zinc Oxide (Rash Relief-Zinc Oxide [place]) 0 gm TOP ASDIRECTED PRN PRN Reason: Rash Last Admin: 03/28/18 16:55 Dose: 1 spray Diphenhydramine HCl (Benadryl) 25 mg IVPUSH Q6H PRN PRN Reason: Itching Last Admin: 04/17/18 04:23 Dose: 25 mg Erythromycin (Jh-Tab) 250 mg PO TID@0730,1630,2130 [facility] Last Admin: 04/17/18 10:03 Dose: 250 mg Furosemide (Lasix) 20 mg IVPUSH NOW ONE Stop: 04/17/18 12:05 Heparin Sodium (Porcine) (Heparin Lock Flush 100 Units/Ml) 500 units FLUSH ASDIRECTED PRN PRN Reason: IV Use Last Admin: 04/17/18 04:25 Dose: 500 units Hydroxyzine HCl (Vistaril) 50 mg IM Q6H PRN PRN Reason: Pain Multivitamins/Minerals 10 ml/Chromium/Copper/Manganese/Seleni/Zn 1 ml/ Amino Ac/ Electrol/Dextrose/Calcium 1,011 mls @ 82 mls/hr IV .BY DURATION [facility] Last Admin: 04/16/18 15:04 Dose: 82 mls/hr Amino Ac/Electrol/Dextrose/Calcium (Clinimix E 07/08) 1,000 mls @ 82 mls/hr IV .BY DURATION [facility] Last Admin: 04/17/18 03:40 Dose: 82 mls/hr Ciprofloxacin/Dextrose 400 mg/ (Premix) 200 mls @ 200 mls/hr IV Q12H [facility] Last Admin: 04/16/18 23:23 Dose: 200 mls/hr Linezolid 600 mg/ Premix 300 mls @ 300 mls/hr IV Q12H [facility] Lactobacillus Rhamnosus (Culturelle) 1 cap PO BID [facility] Last Admin: 04/17/18 10:03 Dose: 1 cap Pantoprazole Sodium (Protonix Iv) 40 mg IV Q24H [facility] Last Admin: 04/17/18 05:04 Dose: 40 mg Tramadol HCl (Ultram) 25 - 50 mg PO Q6H PRN PRN Reason: Pain Last Admin: 04/17/18 02:21 Dose: 50 mg Discontinued Medications Acetaminophen (Tylenol) 650 mg RECTAL Q4H PRN PRN Reason: Fever Acetaminophen (Tylenol) 650 mg PO Q4H PRN PRN Reason: Pain/Fever Last Admin: 04/05/18 20:14 Dose: 650 mg Albuterol/Ipratropium (Duoneb 3.0-0.5 Mg/3 Ml) 3 ml NEB Q4H PRN PRN Reason: Dyspnea Albuterol/Ipratropium (Duoneb 3.0-0.5 Mg/3 Ml) 3 ml NEB ONETIME ONE Stop: 04/07/18 10:31 Last Admin: 04/07/18 10:26 Dose: Not Given Bupivacaine HCl (Marcaine 0.5%) Confirm Administered Dose 50 ml .ROUTE .STK-MED ONE Stop: 04/07/18 12:06 Ropivacaine 34 ml/Dexamethasone 8 mg/Epinephrine HCl 0.4 mg/ Sodium Chloride 43.6 ml 0 ml NERVRT ASDIRECTED [facility] Last Admin: 04/07/18 16:01 Dose: 80 syringe Dexamethasone (Dexamethasone) Confirm Administered Dose 4 mg .ROUTE .STK-MED ONE Stop: 03/18/18 19:48 Dexamethasone (Dexamethasone) Confirm Administered Dose 4 mg .ROUTE .STK-MED ONE Stop: 04/07/18 10:56 Epinephrine HCl (Adrenalin) Confirm Administered Dose 1 mg .ROUTE .STK-MED ONE Stop: 03/18/18 21:07 Erythromycin Ethylsuccinate (Eryped 400) 125 mg PO Q6H [facility] Last Admin: 04/07/18 15:14 Dose: Not Given Fentanyl (Sublimaze) Confirm Administered Dose 250 mcg .ROUTE .STK-MED ONE Stop: 03/18/18 19:48 Fentanyl (Sublimaze) Confirm Administered Dose 250 mcg .ROUTE .STK-MED ONE Stop: 04/02/18 12:59 Fentanyl (Sublimaze) Confirm Administered Dose 250 mcg .ROUTE .STK-MED ONE Stop: 04/07/18 10:56 Furosemide (Lasix) 20 mg IVPUSH ONETIME ONE Stop: 03/23/18 09:46 Last Admin: 03/23/18 10:18 Dose: 20 mg Furosemide (Lasix) 20 mg IVPUSH NOW ONE Stop: 03/25/18 10:01 Last Admin: 03/25/18 10:17 Dose: 20 mg Furosemide (Lasix) 20 mg IVPUSH ONETIME ONE Stop: 03/26/18 09:16 Last Admin: 03/26/18 09:10 Dose: 20 mg Furosemide (Lasix) 20 mg IVPUSH ONETIME ONE Stop: 03/26/18 16:01 Last Admin: 03/26/18 18:28 Dose: Not Given Furosemide (Lasix) 20 mg IVPUSH NOW ONE Stop: 03/27/18 10:01 Last Admin: 03/27/18 10:26 Dose: 20 mg Furosemide (Lasix) 20 mg IVPUSH ONETIME ONE Stop: 03/30/18 13:11 Last Admin: 03/30/18 13:36 Dose: 20 mg Furosemide (Lasix) 20 mg IVPUSH NOW ONE Stop: 03/31/18 11:55 Last Admin: 03/31/18 13:04 Dose: 20 mg Furosemide (Lasix) 20 mg IVPUSH NOW ONE Stop: 04/01/18 12:05 Last Admin: 04/01/18 12:43 Dose: 20 mg Furosemide (Lasix) 20 mg IVPUSH NOW ONE Stop: 04/02/18 15:46 Last Admin: 04/02/18 15:53 Dose: 20 mg Furosemide (Lasix) 40 mg IVPUSH NOW ONE Stop: 04/03/18 09:01 Last Admin: 04/03/18 09:45 Dose: 40 mg Furosemide (Lasix) 40 mg IVPUSH NOW ONE Stop: 04/04/18 15:31 Last Admin: 04/04/18 15:55 Dose: 40 mg Furosemide (Lasix) 40 mg IVPUSH NOW ONE Stop: 04/05/18 09:01 Last Admin: 04/05/18 10:15 Dose: 40 mg Furosemide (Lasix) 40 mg IVPUSH ONETIME ONE Stop: 04/08/18 12:01 Last Admin: 04/08/18 11:01 Dose: 40 mg Furosemide (Lasix) 40 mg IVPUSH ONETIME STA Stop: 04/09/18 06:48 Last Admin: 04/09/18 10:16 Dose: Not Given Furosemide (Lasix) 20 mg IVPUSH ONETIME ONE Stop: 04/09/18 12:01 Last Admin: 04/09/18 13:43 Dose: Not Given Furosemide (Lasix) 40 mg IVPUSH ONETIME STA Stop: 04/09/18 10:08 Last Admin: 04/09/18 10:09 Dose: 40 mg Furosemide (Lasix) Confirm Administered Dose 40 mg .ROUTE .STK-MED ONE Stop: 04/09/18 10:08 Last Admin: 04/09/18 10:16 Dose: 40 mg Furosemide (Lasix) 40 mg IVPUSH ONETIME ONE Stop: 04/09/18 16:01 Last Admin: 04/09/18 15:54 Dose: 40 mg Furosemide (Lasix) 40 mg IVPUSH ONETIME ONE Stop: 04/10/18 12:01 Last Admin: 04/10/18 14:03 Dose: 40 mg Furosemide (Lasix) 20 mg IVPUSH ONETIME ONE Stop: 04/10/18 20:01 Last Admin: 04/10/18 21:10 Dose: 20 mg Furosemide (Lasix) 40 mg IVPUSH NOW ONE Stop: 04/11/18 11:31 Last Admin: 04/11/18 12:58 Dose: 40 mg Furosemide (Lasix) 40 mg IVPUSH NOW ONE Stop: 04/12/18 11:21 Last Admin: 04/12/18 13:28 Dose: 40 mg Furosemide (Lasix) Confirm Administered Dose 40 mg .ROUTE .STK-MED ONE Stop: 04/12/18 13:27 Last Admin: 04/12/18 13:52 Dose: Not Given Furosemide (Lasix) 40 mg IVPUSH NOW ONE Stop: 04/13/18 08:31 Last Admin: 04/13/18 08:42 Dose: 40 mg Furosemide (Lasix) 40 mg IVPUSH NOW ONE Stop: 04/14/18 10:01 Last Admin: 04/14/18 10:09 Dose: 40 mg Glycopyrrolate (Robinul) Confirm Administered Dose 1 mg .ROUTE .STK-MED ONE Stop: 03/18/18 19:48 Glycopyrrolate (Robinul) Confirm Administered Dose 1 mg .ROUTE .STK-MED ONE Stop: 04/07/18 10:56 Heparin Sodium (Porcine) (Heparin Sodium) Confirm Administered Dose 5,000 units .ROUTE .STK-MED ONE Stop: 03/18/18 19:51 Heparin Sodium (Porcine) (Heparin Lock Flush 100 Units/Ml) Confirm Administered Dose 500 units .ROUTE .STK-MED ONE Stop: 03/22/18 12:17 Last Admin: 03/22/18 12:30 Dose: Not Given Heparin Sodium (Porcine) (Heparin Sodium) Confirm Administered Dose 5,000 units .ROUTE .STK-MED ONE Stop: 03/24/18 19:52 Last Admin: 03/24/18 20:33 Dose: 5,000 units Heparin Sodium (Porcine) (Heparin Lock Flush 100 Units/Ml) Confirm Administered Dose 1,000 units .ROUTE .STK-MED ONE Stop: 04/07/18 12:06 Last Admin: 04/07/18 14:30 Dose: 500 units Hydrocortisone Sodium Succinate (Solu-Cortef) 100 mg IVPUSH Q12H [facility] Last Admin: 03/28/18 20:15 Dose: 100 mg Hydrocortisone Sodium Succinate (Solu-Cortef) 100 mg IVPUSH DAILY [facility] Last Admin: 03/30/18 13:39 Dose: Not Given Hydromorphone HCl (Dilaudid) 0.5 mg IVPUSH ONETIME ONE Stop: 03/18/18 17:43 Last Admin: 03/18/18 17:47 Dose: 0.5 mg Hydromorphone HCl (Dilaudid) 1 mg IVPUSH ONETIME ONE Stop: 03/18/18 18:18 Last Admin: 03/18/18 18:27 Dose: 1 mg Hydromorphone HCl (Dilaudid) 0.5 mg IVPUSH ONETIME ONE Stop: 04/16/18 09:58 Last Admin: 04/16/18 10:31 Dose: 0.5 mg Hydroxyzine HCl (Vistaril) 100 mg IM Q6H PRN PRN Reason: Pain Last Admin: 04/11/18 08:49 Dose: 100 mg Sodium Chloride (Normal Saline) 1,000 mls @ 1,000 mls/hr IV ASDIRECTED [facility] Last Admin: 03/18/18 17:47 Dose: 1,000 mls/hr Sodium Chloride (Normal Saline) 1,000 mls @ 999 mls/hr IV ASDIRECTED [facility] Last Admin: 03/18/18 19:31 Dose: 999 mls/hr Meropenem 500 mg/ Sodium (Chloride) 50 mls @ 100 mls/hr IV ONETIME ONE Stop: 03/18/18 19:09 Last Admin: 03/18/18 19:01 Dose: 100 mls/hr Sodium Chloride (Normal Saline) Confirm Administered Dose 50 mls @ as directed .ROUTE .STK-MED ONE Stop: 03/18/18 19:40 Last Admin: 03/18/18 20:19 Dose: Not Given Aztreonam 2 gm/ Sodium (Chloride) 50 mls @ 100 mls/hr IV ONETIME ONE Stop: 03/18/18 20:01 Last Admin: 03/18/18 20:44 Dose: 100 mls/hr Meropenem 500 mg/ Sodium (Chloride) 50 mls @ 100 mls/hr IV ONETIME ONE Stop: 03/18/18 20:00 Last Admin: 03/18/18 19:40 Dose: 100 mls/hr Sodium Chloride (Normal Saline) Confirm Administered Dose 250 mls @ as directed .ROUTE .[facility]-MED ONE Stop: 03/18/18 19:59 Lactated Ringer's (Ringers, Lactated) Confirm Administered Dose 1,000 mls @ as directed .ROUTE .[facility] ONE Stop: 03/18/18 19:59 Sodium Chloride (Normal Saline) Confirm Administered Dose 500 mls @ as directed .ROUTE .[facility] ONE Stop: 03/18/18 19:59 Norepinephrine Bitartrate 8 mg (/ Dextrose/Water) 258 mls @ 3.87 mls/hr IV TITRATE [facility]; Protocol Last Admin: 03/19/18 11:45 Dose: 12 mcg/min, 23.22 mls/hr Lactated Ringer's (Ringers, Lactated) Confirm Administered Dose 1,000 mls @ as directed .ROUTE .[facility] ONE Stop: 03/18/18 21:42 Propofol (Diprivan 100 Ml) 100 mls @ 2.082 mls/hr IV TITRATE [facility]; Protocol Last Titration: 03/27/18 06:35 Dose: 10 mcg/kg/min, 4.164 mls/hr Aztreonam 1 gm/ Sodium (Chloride) 50 mls @ 100 mls/hr IV Q8H [facility] Last Admin: 03/19/18 05:29 Dose: 100 mls/hr Potassium Chloride/Dextrose/Sod Cl (D5 1/2 Ns W/ 20 Meq/L Kcl) 1,000 mls @ 150 mls/hr IV ASDIRECTED [facility] Last Admin: 03/18/18 23:11 Dose: 150 mls/hr Meropenem 1 gm/ Sodium (Chloride) 50 mls @ 100 mls/hr IV Q12H [facility] Stop: 03/29/18 22:00 Last Admin: 03/29/18 20:10 Dose: 100 mls/hr Lactated Ringer's (Ringers, Lactated) 1,000 mls @ 500 mls/hr IV ASDIRECTED [facility] Last Admin: 03/19/18 01:23 Dose: 500 mls/hr Vasopressin 100 units/ (Dextrose/Water) 255 mls @ 1.53 mls/hr IV TITRATE [facility]; Protocol Stop: 03/21/18 13:00 Last Titration: 03/21/18 11:03 Dose: 0.02 units/min, 3.06 mls/hr Lactated Ringer's (Ringers, Lactated) 1,000 mls @ 500 mls/hr IV BOLUS [facility] Stop: 03/19/18 05:29 Last Admin: 03/19/18 04:02 Dose: 500 mls/hr Aztreonam/Dextrose 1 gm/ (Premix) 50 mls @ 100 mls/hr IV Q8H [facility] Last Admin: 03/28/18 05:26 Dose: 100 mls/hr Lactated Ringer's (Ringers, Lactated) 1,000 mls @ 500 mls/hr IV .[facility] ONE Stop: 03/19/18 14:59 Last Admin: 03/19/18 14:27 Dose: 500 mls/hr Lactated Ringer's (Ringers, Lactated) 1,000 mls @ 150 mls/hr IV ASDIRECTED [facility] Last Admin: 03/21/18 11:53 Dose: 150 mls/hr Norepinephrine Bitartrate 8 mg (/ Dextrose/Water) 250 mls @ 3.75 mls/hr IV TITRATE [facility]; Protocol Last Titration: 03/27/18 09:04 Dose: 4 mcg/min, 7.5 mls/hr Magnesium Sulfate 2 gm/ Premix 50 mls @ 25 mls/hr IV Q6H [facility] Stop: 03/20/18 17:59 Last Admin: 03/20/18 16:30 Dose: 25 mls/hr Vancomycin HCl 1.25 gm/ Sodium (Chloride) 250 mls @ 170 mls/hr IV Q24H [facility] Last Admin: 03/22/18 10:06 Dose: 170 mls/hr Vasopressin 40 units/ Dextrose (/Water) 100 mls @ 3 mls/hr IV TITRATE [facility]; Protocol Last Titration: 03/23/18 01:00 Dose: 0 units/min, 0 mls/hr Potassium Chloride 20 meq/ (Premix) 100 mls @ 50 mls/hr IV Q2H [facility] Stop: 03/21/18 22:59 Last Admin: 03/21/18 22:20 Dose: 50 mls/hr Potassium Chloride 20 meq/ (Premix) 100 mls @ 50 mls/hr IV Q2H [facility] Stop: 03/22/18 12:59 Last Admin: 03/22/18 11:30 Dose: 50 mls/hr Potassium Chloride 20 meq/ (Premix) 100 mls @ 50 mls/hr IV Q2H [facility] Stop: 03/22/18 17:29 Last Admin: 03/22/18 16:13 Dose: 50 mls/hr Potassium Chloride (Kcl 20 Meq In Water 100 Ml) 100 mls @ 50 mls/hr IV Q2H [facility] Stop: 03/23/18 01:59 Last Admin: 03/23/18 00:53 Dose: 50 mls/hr Potassium Chloride 40 meq/ (Premix) 100 mls @ 25 mls/hr IV ONETIME ONE Stop: 03/23/18 14:29 Last Admin: 03/23/18 10:31 Dose: 25 mls/hr Vancomycin HCl 1.4 gm/ Sodium (Chloride) 250 mls @ 170 mls/hr IV Q24H [facility] Last Admin: 03/24/18 11:13 Dose: 170 mls/hr Multivitamins/Minerals 10 ml/Chromium/Copper/Manganese/Seleni/Zn 1 ml/ Amino Ac/ Electrol/Dextrose/Calcium 1,011 mls @ 75 mls/hr IV .BY DURATION [facility] Last Admin: 03/25/18 22:34 Dose: 75 mls/hr Amino Ac/Electrol/Dextrose/Calcium (Clinimix E 07/08) 1,000 mls @ 75 mls/hr IV .BY DURATION [facility] Last Admin: 03/25/18 08:11 Dose: 75 mls/hr Vasopressin 100 units/ (Dextrose/Water) 255 mls @ 1.53 mls/hr IV TITRATE [facility]; Protocol Last Titration: 03/25/18 11:51 Dose: 0 units/min, 0 mls/hr Potassium Chloride 20 meq/ (Premix) 100 mls @ 50 mls/hr IV Q2H [facility] Stop: 03/24/18 13:59 Last Admin: 03/24/18 12:13 Dose: 50 mls/hr Multivitamins/Minerals 10 ml/Chromium/Copper/Manganese/Seleni/Zn 1 ml/ Amino Ac/ Electrol/Dextrose/Calcium 1,011 mls @ 75 mls/hr IV .BY DURATION [facility] Last Admin: 03/29/18 06:48 Dose: 75 mls/hr Amino Ac/Electrol/Dextrose/Calcium (Clinimix E 15) 1,000 mls @ 75 mls/hr IV .BY DURATION [facility] Last Admin: 03/29/18 20:12 Dose: 75 mls/hr Heparin Sodium (Porcine) 5,000 (units/ Sodium Chloride) 501 mls @ 5 mls/hr IV ASDIRECTED [facility] Last Admin: 03/27/18 12:50 Dose: 5 mls/hr Sodium Chloride (Normal Saline) 1,000 mls @ 50 mls/hr IV ASDIRECTED [facility] Last Admin: 03/30/18 13:36 Dose: 50 mls/hr Dextrose/Sodium Chloride (Dextrose 5%-1/2 Ns) 1,000 mls @ 75 mls/hr IV ASDIRECTED [facility] Last Admin: 03/31/18 23:53 Dose: 75 mls/hr Albumin Human (Albumin 25%) 25 gm in 100 mls @ 25 mls/hr IV Q24H [facility] Stop: 04/02/18 12:59 Last Admin: 04/01/18 08:13 Dose: 25 mls/hr Potassium Phosphate 20 mmole/ (Sodium Chloride) 256.6667 mls @ 85 mls/hr IV Q3H [facility] Stop: 04/01/18 18:59 Last Admin: 04/01/18 18:37 Dose: 85 mls/hr Dextrose/Sodium Chloride (Dextrose 5%-1/2 Ns) 1,000 mls @ 80 mls/hr IV ASDIRECTED [facility] Last Admin: 04/03/18 06:40 Dose: 80 mls/hr Cefazolin Sodium/Dextrose 2 gm (/ Premix) 50 mls @ 100 mls/hr IV ONCALL ONE Stop: 04/02/18 11:59 Last Admin: 04/02/18 13:59 Dose: 100 mls/hr Potassium Acetate 20 meq/ (Sodium Chloride) 110 mls @ 55 mls/hr IV Q2H [facility] Stop: 04/02/18 11:59 Last Admin: 04/02/18 10:10 Dose: 55 mls/hr Magnesium Sulfate 2 gm/ Premix 50 mls @ 25 mls/hr IV Q6H [facility] Stop: 04/05/18 07:59 Last Admin: 04/03/18 12:11 Dose: 25 mls/hr Albumin Human (Albumin 25%) 25 gm in 100 mls @ 25 mls/hr IV ONETIME ONE Stop: 04/02/18 17:59 Last Admin: 04/02/18 15:30 Dose: 25 mls/hr Potassium Chloride 20 meq/Lidocaine HCl 2 ml/ Sodium Chloride 112 mls @ 56 mls/ hr IV Q2H [facility] Stop: 04/03/18 17:59 Last Admin: 04/03/18 17:04 Dose: 56 mls/hr Magnesium Sulfate 2 gm/ Premix 50 mls @ 25 mls/hr IV Q6H [facility] Stop: 04/08/18 03:59 Last Admin: 04/07/18 15:14 Dose: Not Given Potassium Phosphate 15 mmole/ (Sodium Chloride) 255 mls @ 128 mls/hr IV Q2H [facility] Stop: 04/06/18 13:59 Last Admin: 04/06/18 12:49 Dose: 128 mls/hr Dextrose/Lactated Ringer's (Dextrose 5%-Lactated Ringers) 1,000 mls @ 100 mls/ hr IV ASDIRECTED [facility] Last Admin: 04/07/18 08:44 Dose: 100 mls/hr Meropenem 500 mg/ Sodium (Chloride) 50 mls @ 100 mls/hr IV ONCALL ONE Stop: 04/07/18 11:59 Last Admin: 04/07/18 15:13 Dose: Not Given Linezolid (Zyvox) Confirm Administered Dose 300 mls @ as directed .ROUTE .STK- MED ONE Stop: 04/07/18 15:26 Lactated Ringer's (Ringers, Lactated) Confirm Administered Dose 1,000 mls @ as directed .ROUTE .STK-MED ONE Stop: 04/07/18 15:35 Linezolid 600 mg/ Premix 300 mls @ 300 mls/hr IV ONETIME ONE Stop: 04/07/18 17:29 Last Admin: 04/07/18 16:25 Dose: 300 mls/hr Dextrose/Lactated Ringer's (Dextrose 5%-Lactated Ringers) 1,000 mls @ 175 mls/ hr IV ASDIRECTED [facility] Last Admin: 04/08/18 06:21 Dose: 175 mls/hr Linezolid 600 mg/ Premix 300 mls @ 300 mls/hr IV Q12H [facility] Last Admin: 04/10/18 03:46 Dose: 300 mls/hr Meropenem 500 mg/ Sodium (Chloride) 50 mls @ 100 mls/hr IV Q8H [facility] Last Admin: 04/11/18 06:23 Dose: 100 mls/hr Magnesium Sulfate 2 gm/ Premix 50 mls @ 25 mls/hr IV Q6H [facility] Stop: 04/09/18 13:59 Last Admin: 04/09/18 11:40 Dose: 25 mls/hr Dextrose/Lactated Ringer's (Dextrose 5%-Lactated Ringers) 1,000 mls @ 100 drops /hr IV ASDIRECTED [facility] Last Admin: 04/09/18 11:39 Dose: 100 drops/hr Albumin Human (Albumin 25%) 25 gm in 100 mls @ 25 mls/hr IV Q24H [facility] Stop: 04/12/18 13:59 Last Admin: 04/12/18 09:28 Dose: 25 mls/hr Albumin Human (Albumin 25%) 25 gm in 100 mls @ 25 mls/hr IV Q24H [facility] Stop: 04/12/18 17:59 Last Admin: 04/12/18 14:19 Dose: 25 mls/hr Dextrose/Lactated Ringer's (Dextrose 5%-Lactated Ringers) 1,000 mls @ 25 mls/ hr IV ASDIRECTED [facility] Sodium Chloride (Normal Saline) 1,000 mls @ 0 mls/hr IV ASDIRECTED [facility] Potassium Phosphate 22.5 mmole (/ Sodium Chloride) 257.5 mls @ 86 mls/hr IV Q3H [facility] Stop: 04/10/18 15:59 Last Admin: 04/10/18 14:47 Dose: 86 mls/hr Calcium Gluconate 1 gm/ Sodium (Chloride) 110 mls @ 100 mls/hr IV Q6H [facility] Stop: 04/10/18 18:05 Last Admin: 04/10/18 16:21 Dose: 100 mls/hr Doxycycline Hyclate 100 mg/ (Sodium Chloride) 100 mls @ 100 mls/hr IV Q12H [facility] Last Admin: 04/16/18 12:08 Dose: 100 mls/hr Acetaminophen 1,000 mg/ Premix 100 mls @ 400 mls/hr IV Q6H [facility] Stop: 04/12/18 06:44 Last Admin: 04/12/18 05:47 Dose: 400 mls/hr Potassium Chloride 20 meq/ (Premix) 100 mls @ 50 mls/hr IV Q2H [facility] Stop: 04/12/18 14:59 Last Admin: 04/12/18 13:29 Dose: 50 mls/hr Potassium Chloride 40 meq/ (Premix) 100 mls @ 25 mls/hr IV ONETIME ONE Stop: 04/12/18 12:19 Potassium Chloride 40 meq/ (Premix) 100 mls @ 25 mls/hr IV ONETIME ONE Stop: 04/12/18 20:59 Last Admin: 04/12/18 17:45 Dose: 25 mls/hr Potassium Phosphate 25 mmole/ (Sodium Chloride) 108.3333 mls @ 27 mls/hr IV Q4H [facility] Stop: 04/13/18 21:29 Last Admin: 04/13/18 18:13 Dose: 27 mls/hr Magnesium Sulfate 2 gm/ Premix 50 mls @ 25 mls/hr IV Q6H [facility] Stop: 04/17/18 04:59 Last Admin: 04/15/18 08:34 Dose: 25 mls/hr Vancomycin HCl 1.35 gm/ Sodium (Chloride) 250 mls @ 167 mls/hr IV ONETIME ONE Stop: 04/16/18 15:29 Last Admin: 04/16/18 15:04 Dose: 167 mls/hr Vancomycin HCl 1 gm/ Sodium (Chloride) 250 mls @ 167 mls/hr IV Q12H [facility] Last Admin: 04/17/18 02:21 Dose: 167 mls/hr Insulin Human Lispro (Humalog) 0 unit SUBCUT Q6H [facility]; Protocol Last Admin: 03/30/18 16:32 Dose: Not Given Insulin Human Lispro (Humalog) 0 unit SUBCUT Q6H [facility]; Protocol Last Admin: 03/31/18 03:52 Dose: Not Given Insulin Human Lispro (Humalog) 0 unit SUBCUT QIDACANDBED [facility]; Protocol Stop: 04/12/18 11:01 Last Admin: 03/31/18 13:17 Dose: Not Given Lidocaine/Epinephrine (Xylocaine 1% With Epinephrine 1:100,000) Confirm Administered Dose 50 ml .ROUTE .STK-MED ONE Stop: 04/07/18 12:06 Linezolid (Zyvox) 600 mg IRR .STK-MED ONE Stop: 04/07/18 16:06 Last Admin: 04/07/18 16:05 Dose: 600 mg Loperamide HCl (Imodium) 2 mg PO ASDIRECTED PRN PRN Reason: DIARRHEA Melatonin (Melatonin) 9 mg PO BEDTIME [facility] Last Admin: 04/06/18 21:40 Dose: 9 mg Meropenem (Merrem) Confirm Administered Dose 500 mg .ROUTE .STK-MED ONE Stop: 03/18/18 19:40 Last Admin: 03/18/18 20:19 Dose: Not Given Meropenem (Merrem) Confirm Administered Dose 500 mg .ROUTE .STK-MED ONE Stop: 04/07/18 14:38 Last Admin: 04/07/18 16:00 Dose: 500 mg Meropenem (Merrem) Confirm Administered Dose 500 mg .ROUTE .STK-MED ONE Stop: 04/07/18 15:08 Last Admin: 04/07/18 16:05 Dose: 500 mg Methylprednisolone Sodium Succinate (Solu-Medrol) 125 mg IVPUSH ONETIME ONE Stop: 04/17/18 05:49 Last Admin: 04/17/18 06:02 Dose: 125 mg Midazolam HCl (Versed 1 Mg/Ml) Confirm Administered Dose 2 mg .ROUTE .STK-MED ONE Stop: 04/02/18 12:59 Morphine Sulfate (Morphine) 4 mg IVPUSH Q2H PRN PRN Reason: Pain Last Admin: 03/29/18 07:34 Dose: 4 mg Morphine Sulfate (Morphine [employer] 150 Mg In 30 Ml) 0 mg IV ASDIRECTED PRN; Protocol PRN Reason: Pain Last Admin: 04/07/18 10:00 Dose: 150 mg Morphine Sulfate (Morphine [employer] 150 Mg In 30 Ml) 0 mg IV ASDIRECTED PRN; Protocol PRN Reason: Pain Naloxone HCl (Narcan) 0.1 mg IV ASDIRECTED PRN PRN Reason: decreased respiratory rate Neostigmine Methylsulfate (Neostigmine) Confirm Administered Dose 5 mg .ROUTE .STK-MED ONE Stop: 03/18/18 19:48 Neostigmine Methylsulfate (Neostigmine) Confirm Administered Dose 5 mg .ROUTE .STK-MED ONE Stop: 04/07/18 10:56 Non-Formulary Medication (Total Parenteral Nutrition, Central) 1,000 ml .XX .Continue Order [facility]; Protocol Stop: 03/24/18 11:31 Non-Formulary Medication (Total Parenteral Nutrition, Central) 1,000 ml .XX .Continue Order [facility]; Protocol Non-Formulary Medication (Total Parenteral Nutrition, Central) 1,000 ml .XX .Continue Order [facility]; Protocol Non-Formulary Medication (Total Parenteral Nutrition, Central) 1,000 ml .XX .Continue Order [facility]; Protocol Stop: 03/28/18 12:00 Non-Formulary Medication (Total Parenteral Nutrition, Central) 1,000 ml .XX .Continue Order [facility] Stop: 04/08/18 08:01 Non-Formulary Medication (Total Parenteral Nutrition, Central) 1,000 ml .XX .Continue Order [facility] Stop: 04/09/18 10:00 Non-Formulary Medication (Total Parenteral Nutrition, Central) 1,000 ml .XX .Continue Order [facility] Stop: 04/10/18 10:00 Non-Formulary Medication (Total Parenteral Nutrition, Central) 1,000 ml .XX .Continue Order [facility] Stop: 04/11/18 10:00 Non-Formulary Medication (Total Parenteral Nutrition, Central) 1,000 ml .XX .Continue Order [facility] Stop: 04/12/18 12:00 Non-Formulary Medication (Total Parenteral Nutrition, Central) 1,000 ml .XX .Continue Order [facility] Stop: 04/13/18 12:00 Non-Formulary Medication (Total Parenteral Nutrition, Central) 1,000 ml .XX .Continue Order [facility] Stop: 04/15/18 07:46 Non-Formulary Medication (Total Parenteral Nutrition, Central) 1,000 ml .XX .Continue Order [facility] Stop: 04/16/18 10:00 Non-Formulary Medication (Total Parenteral Nutrition, Central) 1,000 ml .XX .Continue Order [facility] Stop: 04/17/18 12:00 Nystatin (Mycostatin) 5 ml PO QID [facility] Last Admin: 04/04/18 15:25 Dose: 5 ml Ondansetron HCl (Zofran) 4 mg IVPUSH ONETIME ONE Stop: 03/18/18 18:18 Last Admin: 03/18/18 18:27 Dose: 4 mg Ondansetron HCl (Zofran) Confirm Administered Dose 4 mg .ROUTE .STK-MED ONE Stop: 03/18/18 19:48 Ondansetron HCl (Zofran) Confirm Administered Dose 4 mg .ROUTE .STK-MED ONE Stop: 04/07/18 10:56 Oxycodone HCl (Oxycodone) 5 mg PO Q4H PRN PRN Reason: Pain (moderate 4-6) Last Admin: 04/06/18 05:19 Dose: 5 mg Pantoprazole Sodium (Protonix Iv) 40 mg IVPUSH DAILY [facility] Last Admin: 03/28/18 08:34 Dose: 40 mg Pantoprazole Sodium (Protonix) 40 mg PO ACBREAKFAST [facility] Last Admin: 04/07/18 08:10 Dose: 40 mg Phenylephrine HCl (Isaías-Synephrine) Confirm Administered Dose 10 mg .ROUTE .STK- MED ONE Stop: 03/18/18 20:05 Potassium Chloride (Klor-Con M20) 40 meq PO ONETIME ONE Stop: 04/03/18 13:16 Last Admin: 04/03/18 14:33 Dose: 40 meq Potassium Chloride (Klor-Con M20) 40 meq PO ONETIME ONE Stop: 04/03/18 17:01 Last Admin: 04/03/18 20:55 Dose: 40 meq Potassium Chloride (Klor-Con M20) 40 meq PO ONETIME ONE Stop: 04/04/18 09:01 Last Admin: 04/04/18 09:34 Dose: 40 meq Potassium Chloride (Klor-Con M20) 40 meq PO ONETIME ONE Stop: 04/04/18 17:01 Last Admin: 04/04/18 17:08 Dose: 40 meq Potassium Chloride (Klor-Con M20) 40 meq PO ONETIME ONE Stop: 04/05/18 09:01 Last Admin: 04/05/18 10:14 Dose: 40 meq Potassium Chloride (Klor-Con M20) 40 meq PO ONETIME ONE Stop: 04/05/18 17:01 Last Admin: 04/05/18 18:00 Dose: 40 meq Potassium Chloride (Klor-Con M20) 40 meq PO ONETIME ONE Stop: 04/13/18 08:31 Last Admin: 04/13/18 08:42 Dose: 40 meq Potassium Chloride (Klor-Con M20) 40 meq PO ONETIME ONE Stop: 04/13/18 13:01 Last Admin: 04/13/18 12:44 Dose: 40 meq Potassium Chloride (Klor-Con M20) 40 meq PO ONETIME ONE Stop: 04/13/18 17:01 Last Admin: 04/13/18 16:57 Dose: 40 meq Potassium Chloride (Klor-Con M20) 40 meq PO ONETIME ONE Stop: 04/15/18 14:31 Last Admin: 04/15/18 15:16 Dose: 40 meq Prednisone (Prednisone) 20 mg PO WITHBREAKFAST [facility] Last Admin: 03/30/18 08:59 Dose: 20 mg Propofol (Diprivan 20 Ml) Confirm Administered Dose 200 mg .ROUTE .STK-MED ONE Stop: 03/18/18 19:48 Propofol (Diprivan 20 Ml) Confirm Administered Dose 200 mg .ROUTE .STK-MED ONE Stop: 04/02/18 12:59 Propofol (Diprivan 20 Ml) Confirm Administered Dose 200 mg .ROUTE .STK-MED ONE Stop: 04/07/18 10:56 Rocuronium [place] (Zemuron) Confirm Administered Dose 50 mg .ROUTE .STK-MED ONE Stop: 03/18/18 19:48 Rocuronium [place] (Zemuron) Confirm Administered Dose 50 mg .ROUTE .STK-MED ONE Stop: 04/07/18 10:56 Succinylcholine Chloride (Quelicin) Confirm Administered Dose 200 mg .ROUTE .STK -MED ONE Stop: 03/18/18 19:48 Vancomycin HCl (Vancomycin) 1 gm IV .PHARMACY TO DOSE [facility] Stop: 03/21/18 16:00 Vancomycin HCl (Vancomycin) 1 gm IV .PHARMACY TO DOSE [facility] Stop: 04/16/18 14:00 - Exam Quality Assessment: Central Line/PICC, Urine Catheter, DVT Prophylaxis General: Alert, Oriented, Cooperative, Mild Distress Lungs: Clear to Auscultation, Normal Respiratory Effort Cardiovascular: Regular Rate, Regular Rhythm, No Murmurs GI/Abdominal Exam: Soft, No Organomegaly, Tender. No: Distended, Guarding, Rigid, Rebound Extremities: Other (Swelling and tenderness right first toe) - Problem List Review Problem List Initiated/Reviewed/Updated: Yes - My Orders Last 24 Hours: My Active Orders 04/17/18 12:00 Linezolid [Zyvox] 600 mg Premix Bag 1 bag IV Q12H 04/17/18 12:04 Furosemide [Lasix] 20 mg IVPUSH NOW ONE 04/17/18 12:05 Remove Sorto Catheter [Urinary Catheter Removal] [RC] Per Unit Routine 04/18/18 05:11 CRP [C-REACTIVE PROTEIN] [CHEM] AM SEDIMENTATION RATE MANUAL [HEME] AM - Plan Plan:: ASSESSMENT AND PLAN WOUND DEHISCENCE WITH UNDERLYING ABSCESS - status post exploratory laparotomy . Seems to be slowly improving on a daily basis, more alert and interactive oral intake seems to be very slowly improving -Ciprofloxacin 400 mg IV every 12 hours -Discontinue vancomycin because of possible allergic reaction -Zyvox IV -Remove central line -PICC line placement -Discontinue Sorto catheter -Surgical follow-up per surgery team SIGMOID COLON PERFORATION RESULTING IN ACUTE ABDOMEN AND SEPTIC SHOCK - postop course complicated by wound dehiscence as above. He is receiving nutritional support via TPN. Persistent difficulty with ileus. -Continue TPN initiated today -Post operative per surgical team -Pain control -Saline lock IV SEPTIC SHOCK - resolved ACUTE HYPOXIC RESPIRATORY FAILURE - respiratory status stable with diuresis -Coughing, deep breathing and suctioning as able -Furosemide assess need daily OSTEOMYELITIS RIGHT FIRST TOE-pain and swelling improved from yesterday, attempt at obtaining MRI was unsuccessful because of movement. Arterial Doppler study showed evidence of significant peripheral arterial disease in the right leg. -Outpatient follow-up with interventional radiology in [place] after he has healed from recent surgeries -Antibiotic therapy as above COPD - [id number] smoking history but no evidence for exacerbation at this time. -Nebulized albuterol as needed -Vigorous pulmonary toilet during the postoperative period HISTORY OF LUNG AND PROSTATE CARCINOMA - lung cancer felt to be stable, had been receiving treatment for management of prostate carcinoma prior to admission MAINTENANCE ISSUES -DVT prophylaxis; SCUDs -GI prophylaxis; Protonix 40 mg daily -Sorto catheter; placed at the time of surgery for strict intake and output monitoring -Nutrition; nothing by mouth DISPOSITION - anticipate discharge to group home after the hospital stay.
[2018-04-17] MEDS: Ciprofloxacin in D5W 400 MG in Premix Bag 1 BAG IV SCH ×4 (12:19→23:29)
[2018-04-17] MEDS ORDERED: Furosemide 20 MG/2 ML VIAL IV ONE (12:30)
[2018-04-17] MEDS: Linezolid 600 MG in Premix Bag 1 BAG IV SCH (13:55)
[2018-04-18] MEDS: Linezolid 600 MG in Premix Bag 1 BAG IV SCH ×2 (00:29→12:36)
[2018-04-18] MEDS: Acetaminophen Soln 650 MG/20.3 ML UD Cup GTUBE SCH ×4 (02:22→20:53)
[2018-04-18] MEDS: 1: AA 5%/Calcium/D15W/Lytes 1,000 ML with MVI, Adult with Vitamin K 10 ML, Chromium/Copp IV SCH ×6 (04:03→16:28)
[2018-04-18] MEDS: Pantoprazole 40 MG Vial IV SCH (05:56)
[2018-04-18] MEDS ORDERED: Central Total Parenteral Nutrition Bag SCH (07:00)
[2018-04-18] MEDS ORDERED: Magnesium Sulfate/Water 2 GM in Premix Bag 1 BAG IV SCH (07:00)
--- NOTE | 2018-04-18 07:36 | PN ---
DATE OF SERVICE: 04/18/2018 SUBJECTIVE: Kodak had a fairly restful night. He had his Sorto catheter removed yesterday and is voiding. Had one incontinence. Recorded output 1350. Gastrostomy tube put out 1900. There was some question on report if it was clamped for 3 hours and unclamped 1 hour. Oral intake 500 mL during the date night caregiver. Nothing was recorded in the day shift. He continues to get TPN. Wound VAC was changed yesterday and he will get a PICC line in today. Kodak is pretty sleepy this morning. He has no questions and voices no concerns. LABORATORY DATA: Hemoglobin 8.7, stable from yesterday. White count is up a little bit at 12.4. Sedimentation rate is 60. Potassium 3.7, magnesium is 1.7. BNP is up from 244 to 553. OBJECTIVE: GENERAL: Kodak is a 77-year-old male. VITAL SIGNS: TPR is 98.5, 74, 18, blood pressure is 126/63. HEART: Regular rate and rhythm. LUNGS: Clear. Decreased breath sounds per his standard. ABDOMEN: Ostomy intact. Minimal stool, a total of 1925 recorded. 4x4s where the EMEKA drains were removed yesterday. Gastrostomy tube intact. Wound VAC done. EXTREMITIES: Without peripheral edema. ASSESSMENT: 1. Allergic reaction to vancomycin. 2. Osteomyelitis with diffuse atherosclerotic disease, suspected hemodynamically significant disease in the mid superficial femoral artery with no monophasic flow. 3. Insertion of left subclavian triple-lumen, exploratory laparotomy, drainage of intraabdominal abscess, small bowel resection, small bowel stricture plasty, and placement of Vicryl mesh for closure of fascial dehiscence and evisceration of the intraabdominal abscess and focal small-bowel stricture. Focal areas of small bowel deserosalization and insertion of the subclavian triple lumen. Date of surgery: 04/07/2018. Surgeon: Fredi Linn MD. 4. Percutaneous endoscopic gastrostomy tube placement for malnutrition with inadequate oral intake. Date of procedure: 04/02/2018. Surgeon: Fredi Linn MD. 5. Exploratory laparotomy, peritoneal lavage, sigmoid colon resection, left colostomy, Cristina's pouch for acute abdomen with perforated viscus and sepsis. Date of surgery: 03/18/2018. Surgeon: Espinoza Adams MD. 6. Malnutrition, requiring TPN therapy. PLAN: 1. Continue same TPN rate and content. 2. Check CBC, CMP, phos, and BNP in a.m. 3. Magnesium 2 g IV q.6 h. x72 hours. 4. Good pulmonary toilet. 5. We will evaluate p.r.n. or in a.m. Rula Morley PA-C /[id number]
[2018-04-18] MEDS: Albuterol/Ipratropium 3.0-0.5 MG/3 ML Neb Soln NEB SCH ×4 (07:38→21:06)
[2018-04-18] MEDS: Lactobacillus Rhamnosus GG (Probiotic) Cap PO SCH ×2 (08:16→21:06)
[2018-04-18] MEDS: Erythromycin Base 250 MG Cap.CR PO SCH (08:16)
[2018-04-18] MEDS: Magnesium Sulfate/Water 2 GM in Premix Bag 1 BAG IV SCH ×2 (09:04→16:28)
[2018-04-18] MEDS: Ciprofloxacin in D5W 400 MG in Premix Bag 1 BAG IV SCH ×4 (11:25→23:07)
--- NOTE | 2018-04-18 13:45 | PCM.PN ---
- General Info Date of Service: 04/18/18 Subjective Update: Mr. Silva continues to do well, pain is been well-controlled, slowly regaining strength and tolerating current diet. Starting to have some regular output into his ostomy with less drainage into the gastrostomy bag. Attempted PICC line placement today was unsuccessful 2. He's done well with removal of the Sorto catheter and has had no significant difficulty with urination or urinary retention. - Review of Systems General: Reports: No Symptoms, Weakness. Denies: Fever, Chills Pulmonary: Reports: No Symptoms Cardiovascular: Reports: No Symptoms Gastrointestinal: Reports: Abdominal Pain, Decreased Appetite. Denies: Constipation, Diarrhea, Difficulty Swallowing, Nausea, Vomiting - Patient Data Vitals - Most Recent: Last Vital Signs Temp 98.6 F 04/18/18 12:45 Pulse 84 04/18/18 12:45 Resp 18 04/18/18 12:45 BP 111/45 L 04/18/18 12:45 Pulse Ox 96 04/18/18 12:45 Weight - Most Recent: 149 lb 3.2 oz I&O - Last 24 Hours: Intake & Output 04/17/18 04/18/18 04/18/18 22:59 06:59 14:59 Intake Total 1799 2040 984 Output Total 3250 2325 575 Balance -1451 -285 409 Lab Results Last 24 Hours: Laboratory Results - last 24 hr 04/18/18 04/18/18 04/18/18 Range/Units 03:19 03:37 03:37 WBC 12.4 H (4.5-11.0) K/uL RBC 2.97 L (4.30-5.90) M/uL Hgb 8.7 L (12.0-15.0) g/dL Hct 27.5 L (40.0-54.0) % MCV 93 (80-98) fL MCH 29 (27-31) pg MCHC 32 (32-36) % Plt Count 336 (150-400) K/uL ESR 60 H (0-20) mm/hr Sodium 145 (140-148) mmol/L Potassium 3.7 (3.6-5.2) mmol/L Chloride 107 (100-108) mmol/L Carbon Dioxide 25 (21-32) mmol/L Anion Gap 13.5 (5.0-14.0) mmol/L BUN 37 H (7-18) mg/dL Creatinine 1.0 (0.8-1.3) mg/dL Est Cr Clr Drug Dosing 59.53 mL/min Estimated GFR (MDRD) > 60 (>60) Glucose 136 H (74-106) mg/dL Calcium 8.8 (8.5-10.1) mg/dL Phosphorus 3.5 (2.5-4.9) mg/dL Magnesium 1.7 L D (1.8-2.4) mg/dL Total Bilirubin 0.3 (0.2-1.0) mg/dL AST 27 (15-37) U/L ALT 42 (12-78) U/L Alkaline Phosphatase 140 H (46-116) U/L C-Reactive Protein (0.0-0.3) mg/dL NT-Pro-B Natriuret Pep 553 H (5-450) pg/mL Total Protein 5.8 L (6.4-8.2) g/dL Albumin 2.5 L (3.4-5.0) g/dL Globulin 3.3 (2.3-3.5) g/dL Albumin/Globulin Ratio 0.8 L (1.2-2.2) 04/18/18 Range/Units 03:37 WBC (4.5-11.0) K/uL RBC (4.30-5.90) M/uL Hgb (12.0-15.0) g/dL Hct (40.0-54.0) % MCV (80-98) fL MCH (27-31) pg MCHC (32-36) % Plt Count (150-400) K/uL ESR (0-20) mm/hr Sodium (140-148) mmol/L Potassium (3.6-5.2) mmol/L Chloride (100-108) mmol/L Carbon Dioxide (21-32) mmol/L Anion Gap (5.0-14.0) mmol/L BUN (7-18) mg/dL Creatinine (0.8-1.3) mg/dL Est Cr Clr Drug Dosing mL/min Estimated GFR (MDRD) (>60) Glucose (74-106) mg/dL Calcium (8.5-10.1) mg/dL Phosphorus (2.5-4.9) mg/dL Magnesium (1.8-2.4) mg/dL Total Bilirubin (0.2-1.0) mg/dL AST (15-37) U/L ALT (12-78) U/L Alkaline Phosphatase (46-116) U/L C-Reactive Protein 3.55 H (0.0-0.3) mg/dL NT-Pro-B Natriuret Pep (5-450) pg/mL Total Protein (6.4-8.2) g/dL Albumin (3.4-5.0) g/dL Globulin (2.3-3.5) g/dL Albumin/Globulin Ratio (1.2-2.2) Med Orders - Current: Current Medications Acetaminophen (Tylenol) 1,000 mg GTUBE Q6H [facility] Last Admin: 04/18/18 08:14 Dose: 1,000 mg Albuterol (Proventil Neb Soln) 2.5 mg NEB Q4H PRN PRN Reason: Dyspnea Last Admin: 04/17/18 05:03 Dose: 2.5 mg Albuterol/Ipratropium (Duoneb 3.0-0.5 Mg/3 Ml) 3 ml NEB QIDRT [facility] Last Admin: 04/18/18 10:35 Dose: 3 ml Calcium Carbonate/Glycine (Tums) 1,000 mg PO Q2H PRN PRN Reason: Indigestion Last Admin: 04/15/18 20:27 Dose: 1,000 mg Dimethicone/Zinc Oxide (Rash Relief-Zinc Oxide [place]) 0 gm TOP ASDIRECTED PRN PRN Reason: Rash Last Admin: 03/28/18 16:55 Dose: 1 spray Diphenhydramine HCl (Benadryl) 25 mg IVPUSH Q6H PRN PRN Reason: Itching Last Admin: 04/17/18 04:23 Dose: 25 mg Erythromycin Ethylsuccinate (Eryped 200) 250 mg PO TID@0800,1400,2000 [facility] Heparin Sodium (Porcine) (Heparin Lock Flush 100 Units/Ml) 500 units FLUSH ASDIRECTED PRN PRN Reason: IV Use Last Admin: 04/17/18 04:25 Dose: 500 units Hydroxyzine HCl (Vistaril) 50 mg IM Q6H PRN PRN Reason: Pain Multivitamins/Minerals 10 ml/Chromium/Copper/Manganese/Seleni/Zn 1 ml/ Amino Ac/ Electrol/Dextrose/Calcium 1,011 mls @ 82 mls/hr IV .BY DURATION [facility] Last Admin: 04/17/18 15:48 Dose: 82 mls/hr Amino Ac/Electrol/Dextrose/Calcium (Clinimix E 07/08) 1,000 mls @ 82 mls/hr IV .BY DURATION [facility] Last Admin: 04/18/18 04:03 Dose: 82 mls/hr Ciprofloxacin/Dextrose 400 mg/ (Premix) 200 mls @ 200 mls/hr IV Q12H [facility] Last Admin: 04/18/18 11:25 Dose: 200 mls/hr Linezolid 600 mg/ Premix 300 mls @ 300 mls/hr IV Q12H [facility] Last Admin: 04/18/18 12:36 Dose: 300 mls/hr Magnesium Sulfate 2 gm/ Premix 50 mls @ 25 mls/hr IV Q6H [facility] Stop: 04/18/18 17:59 Last Admin: 04/18/18 09:04 Dose: 25 mls/hr Lactobacillus Rhamnosus (Culturelle) 1 cap PO BID [facility] Last Admin: 04/18/18 08:16 Dose: 1 cap Pantoprazole Sodium (Protonix Iv) 40 mg IV Q24H [facility] Last Admin: 04/18/18 05:56 Dose: 40 mg Tramadol HCl (Ultram) 25 - 50 mg PO Q6H PRN PRN Reason: Pain Last Admin: 04/17/18 02:21 Dose: 50 mg Discontinued Medications Acetaminophen (Tylenol) 650 mg RECTAL Q4H PRN PRN Reason: Fever Acetaminophen (Tylenol) 650 mg PO Q4H PRN PRN Reason: Pain/Fever Last Admin: 04/05/18 20:14 Dose: 650 mg Acetaminophen (Tylenol) 1,000 mg GTUBE Q6H [facility] Last Admin: 04/17/18 14:02 Dose: 1,000 mg Albuterol/Ipratropium (Duoneb 3.0-0.5 Mg/3 Ml) 3 ml NEB Q4H PRN PRN Reason: Dyspnea Albuterol/Ipratropium (Duoneb 3.0-0.5 Mg/3 Ml) 3 ml NEB ONETIME ONE Stop: 04/07/18 10:31 Last Admin: 04/07/18 10:26 Dose: Not Given Bupivacaine HCl (Marcaine 0.5%) Confirm Administered Dose 50 ml .ROUTE .STK-MED ONE Stop: 04/07/18 12:06 Ropivacaine 34 ml/Dexamethasone 8 mg/Epinephrine HCl 0.4 mg/ Sodium Chloride 43.6 ml 0 ml NERVRT ASDIRECTED [facility] Last Admin: 04/07/18 16:01 Dose: 80 syringe Dexamethasone (Dexamethasone) Confirm Administered Dose 4 mg .ROUTE .STK-MED ONE Stop: 03/18/18 19:48 Dexamethasone (Dexamethasone) Confirm Administered Dose 4 mg .ROUTE .STK-MED ONE Stop: 04/07/18 10:56 Epinephrine HCl (Adrenalin) Confirm Administered Dose 1 mg .ROUTE .[facility] ONE Stop: 03/18/18 21:07 Erythromycin (Jh-Tab) 250 mg PO TID@0730,1630,2130 [facility] Last Admin: 04/17/18 10:03 Dose: 250 mg Erythromycin (Jh-Tab) 250 mg PO TID@0800,1400,2000 [facility] Stop: 04/18/18 08:01 Last Admin: 04/18/18 08:16 Dose: 250 mg Erythromycin Ethylsuccinate (Eryped 400) 125 mg PO Q6H [facility] Last Admin: 04/07/18 15:14 Dose: Not Given Fentanyl (Sublimaze) Confirm Administered Dose 250 mcg .ROUTE .STK-MED ONE Stop: 03/18/18 19:48 Fentanyl (Sublimaze) Confirm Administered Dose 250 mcg .ROUTE .STK-MED ONE Stop: 04/02/18 12:59 Fentanyl (Sublimaze) Confirm Administered Dose 250 mcg .ROUTE .STK-MED ONE Stop: 04/07/18 10:56 Furosemide (Lasix) 20 mg IVPUSH ONETIME ONE Stop: 03/23/18 09:46 Last Admin: 03/23/18 10:18 Dose: 20 mg Furosemide (Lasix) 20 mg IVPUSH NOW ONE Stop: 03/25/18 10:01 Last Admin: 03/25/18 10:17 Dose: 20 mg Furosemide (Lasix) 20 mg IVPUSH ONETIME ONE Stop: 03/26/18 09:16 Last Admin: 03/26/18 09:10 Dose: 20 mg Furosemide (Lasix) 20 mg IVPUSH ONETIME ONE Stop: 03/26/18 16:01 Last Admin: 03/26/18 18:28 Dose: Not Given Furosemide (Lasix) 20 mg IVPUSH NOW ONE Stop: 03/27/18 10:01 Last Admin: 03/27/18 10:26 Dose: 20 mg Furosemide (Lasix) 20 mg IVPUSH ONETIME ONE Stop: 03/30/18 13:11 Last Admin: 03/30/18 13:36 Dose: 20 mg Furosemide (Lasix) 20 mg IVPUSH NOW ONE Stop: 03/31/18 11:55 Last Admin: 03/31/18 13:04 Dose: 20 mg Furosemide (Lasix) 20 mg IVPUSH NOW ONE Stop: 04/01/18 12:05 Last Admin: 04/01/18 12:43 Dose: 20 mg Furosemide (Lasix) 20 mg IVPUSH NOW ONE Stop: 04/02/18 15:46 Last Admin: 04/02/18 15:53 Dose: 20 mg Furosemide (Lasix) 40 mg IVPUSH NOW ONE Stop: 04/03/18 09:01 Last Admin: 04/03/18 09:45 Dose: 40 mg Furosemide (Lasix) 40 mg IVPUSH NOW ONE Stop: 04/04/18 15:31 Last Admin: 04/04/18 15:55 Dose: 40 mg Furosemide (Lasix) 40 mg IVPUSH NOW ONE Stop: 04/05/18 09:01 Last Admin: 04/05/18 10:15 Dose: 40 mg Furosemide (Lasix) 40 mg IVPUSH ONETIME ONE Stop: 04/08/18 12:01 Last Admin: 04/08/18 11:01 Dose: 40 mg Furosemide (Lasix) 40 mg IVPUSH ONETIME STA Stop: 04/09/18 06:48 Last Admin: 04/09/18 10:16 Dose: Not Given Furosemide (Lasix) 20 mg IVPUSH ONETIME ONE Stop: 04/09/18 12:01 Last Admin: 04/09/18 13:43 Dose: Not Given Furosemide (Lasix) 40 mg IVPUSH ONETIME STA Stop: 04/09/18 10:08 Last Admin: 04/09/18 10:09 Dose: 40 mg Furosemide (Lasix) Confirm Administered Dose 40 mg .ROUTE .STK-MED ONE Stop: 04/09/18 10:08 Last Admin: 04/09/18 10:16 Dose: 40 mg Furosemide (Lasix) 40 mg IVPUSH ONETIME ONE Stop: 04/09/18 16:01 Last Admin: 04/09/18 15:54 Dose: 40 mg Furosemide (Lasix) 40 mg IVPUSH ONETIME ONE Stop: 04/10/18 12:01 Last Admin: 04/10/18 14:03 Dose: 40 mg Furosemide (Lasix) 20 mg IVPUSH ONETIME ONE Stop: 04/10/18 20:01 Last Admin: 04/10/18 21:10 Dose: 20 mg Furosemide (Lasix) 40 mg IVPUSH NOW ONE Stop: 04/11/18 11:31 Last Admin: 04/11/18 12:58 Dose: 40 mg Furosemide (Lasix) 40 mg IVPUSH NOW ONE Stop: 04/12/18 11:21 Last Admin: 04/12/18 13:28 Dose: 40 mg Furosemide (Lasix) Confirm Administered Dose 40 mg .ROUTE .[facility]-MED ONE Stop: 04/12/18 13:27 Last Admin: 04/12/18 13:52 Dose: Not Given Furosemide (Lasix) 40 mg IVPUSH NOW ONE Stop: 04/13/18 08:31 Last Admin: 04/13/18 08:42 Dose: 40 mg Furosemide (Lasix) 40 mg IVPUSH NOW ONE Stop: 04/14/18 10:01 Last Admin: 04/14/18 10:09 Dose: 40 mg Furosemide (Lasix) 20 mg IV ONETIME ONE Stop: 04/17/18 12:31 Last Admin: 04/17/18 12:22 Dose: 20 mg Glycopyrrolate (Robinul) Confirm Administered Dose 1 mg .ROUTE .STK-MED ONE Stop: 03/18/18 19:48 Glycopyrrolate (Robinul) Confirm Administered Dose 1 mg .ROUTE .ST-MED ONE Stop: 04/07/18 10:56 Heparin Sodium (Porcine) (Heparin Sodium) Confirm Administered Dose 5,000 units .ROUTE .STK-MED ONE Stop: 03/18/18 19:51 Heparin Sodium (Porcine) (Heparin Lock Flush 100 Units/Ml) Confirm Administered Dose 500 units .ROUTE .ST-MED ONE Stop: 03/22/18 12:17 Last Admin: 03/22/18 12:30 Dose: Not Given Heparin Sodium (Porcine) (Heparin Sodium) Confirm Administered Dose 5,000 units .ROUTE .STK-MED ONE Stop: 03/24/18 19:52 Last Admin: 03/24/18 20:33 Dose: 5,000 units Heparin Sodium (Porcine) (Heparin Lock Flush 100 Units/Ml) Confirm Administered Dose 1,000 units .ROUTE .STK-MED ONE Stop: 04/07/18 12:06 Last Admin: 04/07/18 14:30 Dose: 500 units Hydrocortisone Sodium Succinate (Solu-Cortef) 100 mg IVPUSH Q12H [facility] Last Admin: 03/28/18 20:15 Dose: 100 mg Hydrocortisone Sodium Succinate (Solu-Cortef) 100 mg IVPUSH DAILY [facility] Last Admin: 03/30/18 13:39 Dose: Not Given Hydromorphone HCl (Dilaudid) 0.5 mg IVPUSH ONETIME ONE Stop: 03/18/18 17:43 Last Admin: 03/18/18 17:47 Dose: 0.5 mg Hydromorphone HCl (Dilaudid) 1 mg IVPUSH ONETIME ONE Stop: 03/18/18 18:18 Last Admin: 03/18/18 18:27 Dose: 1 mg Hydromorphone HCl (Dilaudid) 0.5 mg IVPUSH ONETIME ONE Stop: 04/16/18 09:58 Last Admin: 04/16/18 10:31 Dose: 0.5 mg Hydroxyzine HCl (Vistaril) 100 mg IM Q6H PRN PRN Reason: Pain Last Admin: 04/11/18 08:49 Dose: 100 mg Sodium Chloride (Normal Saline) 1,000 mls @ 1,000 mls/hr IV ASDIRECTED [facility] Last Admin: 03/18/18 17:47 Dose: 1,000 mls/hr Sodium Chloride (Normal Saline) 1,000 mls @ 999 mls/hr IV ASDIRECTED [facility] Last Admin: 03/18/18 19:31 Dose: 999 mls/hr Meropenem 500 mg/ Sodium (Chloride) 50 mls @ 100 mls/hr IV ONETIME ONE Stop: 03/18/18 19:09 Last Admin: 03/18/18 19:01 Dose: 100 mls/hr Sodium Chloride (Normal Saline) Confirm Administered Dose 50 mls @ as directed .ROUTE .[facility]-MED ONE Stop: 03/18/18 19:40 Last Admin: 03/18/18 20:19 Dose: Not Given Aztreonam 2 gm/ Sodium (Chloride) 50 mls @ 100 mls/hr IV ONETIME ONE Stop: 03/18/18 20:01 Last Admin: 03/18/18 20:44 Dose: 100 mls/hr Meropenem 500 mg/ Sodium (Chloride) 50 mls @ 100 mls/hr IV ONETIME ONE Stop: 03/18/18 20:00 Last Admin: 03/18/18 19:40 Dose: 100 mls/hr Sodium Chloride (Normal Saline) Confirm Administered Dose 250 mls @ as directed .ROUTE .[facility] ONE Stop: 03/18/18 19:59 Lactated Ringer's (Ringers, Lactated) Confirm Administered Dose 1,000 mls @ as directed .ROUTE .[facility] ONE Stop: 03/18/18 19:59 Sodium Chloride (Normal Saline) Confirm Administered Dose 500 mls @ as directed .ROUTE .[facility] ONE Stop: 03/18/18 19:59 Norepinephrine Bitartrate 8 mg (/ Dextrose/Water) 258 mls @ 3.87 mls/hr IV TITRATE [facility]; Protocol Last Admin: 03/19/18 11:45 Dose: 12 mcg/min, 23.22 mls/hr Lactated Ringer's (Ringers, Lactated) Confirm Administered Dose 1,000 mls @ as directed .ROUTE .[facility] ONE Stop: 03/18/18 21:42 Propofol (Diprivan 100 Ml) 100 mls @ 2.082 mls/hr IV TITRATE [facility]; Protocol Last Titration: 03/27/18 06:35 Dose: 10 mcg/kg/min, 4.164 mls/hr Aztreonam 1 gm/ Sodium (Chloride) 50 mls @ 100 mls/hr IV Q8H [facility] Last Admin: 03/19/18 05:29 Dose: 100 mls/hr Potassium Chloride/Dextrose/Sod Cl (D5 1/2 Ns W/ 20 Meq/L Kcl) 1,000 mls @ 150 mls/hr IV ASDIRECTED [facility] Last Admin: 03/18/18 23:11 Dose: 150 mls/hr Meropenem 1 gm/ Sodium (Chloride) 50 mls @ 100 mls/hr IV Q12H [facility] Stop: 03/29/18 22:00 Last Admin: 03/29/18 20:10 Dose: 100 mls/hr Lactated Ringer's (Ringers, Lactated) 1,000 mls @ 500 mls/hr IV ASDIRECTED [facility] Last Admin: 03/19/18 01:23 Dose: 500 mls/hr Vasopressin 100 units/ (Dextrose/Water) 255 mls @ 1.53 mls/hr IV TITRATE [facility]; Protocol Stop: 03/21/18 13:00 Last Titration: 03/21/18 11:03 Dose: 0.02 units/min, 3.06 mls/hr Lactated Ringer's (Ringers, Lactated) 1,000 mls @ 500 mls/hr IV BOLUS [facility] Stop: 03/19/18 05:29 Last Admin: 03/19/18 04:02 Dose: 500 mls/hr Aztreonam/Dextrose 1 gm/ (Premix) 50 mls @ 100 mls/hr IV Q8H [facility] Last Admin: 03/28/18 05:26 Dose: 100 mls/hr Lactated Ringer's (Ringers, Lactated) 1,000 mls @ 500 mls/hr IV .[facility] ONE Stop: 03/19/18 14:59 Last Admin: 03/19/18 14:27 Dose: 500 mls/hr Lactated Ringer's (Ringers, Lactated) 1,000 mls @ 150 mls/hr IV ASDIRECTED [facility] Last Admin: 03/21/18 11:53 Dose: 150 mls/hr Norepinephrine Bitartrate 8 mg (/ Dextrose/Water) 250 mls @ 3.75 mls/hr IV TITRATE [facility]; Protocol Last Titration: 03/27/18 09:04 Dose: 4 mcg/min, 7.5 mls/hr Magnesium Sulfate 2 gm/ Premix 50 mls @ 25 mls/hr IV Q6H [facility] Stop: 03/20/18 17:59 Last Admin: 03/20/18 16:30 Dose: 25 mls/hr Vancomycin HCl 1.25 gm/ Sodium (Chloride) 250 mls @ 170 mls/hr IV Q24H [facility] Last Admin: 03/22/18 10:06 Dose: 170 mls/hr Vasopressin 40 units/ Dextrose (/Water) 100 mls @ 3 mls/hr IV TITRATE [facility]; Protocol Last Titration: 03/23/18 01:00 Dose: 0 units/min, 0 mls/hr Potassium Chloride 20 meq/ (Premix) 100 mls @ 50 mls/hr IV Q2H [facility] Stop: 03/21/18 22:59 Last Admin: 03/21/18 22:20 Dose: 50 mls/hr Potassium Chloride 20 meq/ (Premix) 100 mls @ 50 mls/hr IV Q2H [facility] Stop: 03/22/18 12:59 Last Admin: 03/22/18 11:30 Dose: 50 mls/hr Potassium Chloride 20 meq/ (Premix) 100 mls @ 50 mls/hr IV Q2H [facility] Stop: 03/22/18 17:29 Last Admin: 03/22/18 16:13 Dose: 50 mls/hr Potassium Chloride (Kcl 20 Meq In Water 100 Ml) 100 mls @ 50 mls/hr IV Q2H [facility] Stop: 03/23/18 01:59 Last Admin: 03/23/18 00:53 Dose: 50 mls/hr Potassium Chloride 40 meq/ (Premix) 100 mls @ 25 mls/hr IV ONETIME ONE Stop: 03/23/18 14:29 Last Admin: 03/23/18 10:31 Dose: 25 mls/hr Vancomycin HCl 1.4 gm/ Sodium (Chloride) 250 mls @ 170 mls/hr IV Q24H [facility] Last Admin: 03/24/18 11:13 Dose: 170 mls/hr Multivitamins/Minerals 10 ml/Chromium/Copper/Manganese/Seleni/Zn 1 ml/ Amino Ac/ Electrol/Dextrose/Calcium 1,011 mls @ 75 mls/hr IV .BY DURATION [facility] Last Admin: 03/25/18 22:34 Dose: 75 mls/hr Amino Ac/Electrol/Dextrose/Calcium (Clinimix E 07/08) 1,000 mls @ 75 mls/hr IV .BY DURATION [facility] Last Admin: 03/25/18 08:11 Dose: 75 mls/hr Vasopressin 100 units/ (Dextrose/Water) 255 mls @ 1.53 mls/hr IV TITRATE [facility]; Protocol Last Titration: 03/25/18 11:51 Dose: 0 units/min, 0 mls/hr Potassium Chloride 20 meq/ (Premix) 100 mls @ 50 mls/hr IV Q2H [facility] Stop: 03/24/18 13:59 Last Admin: 03/24/18 12:13 Dose: 50 mls/hr Multivitamins/Minerals 10 ml/Chromium/Copper/Manganese/Seleni/Zn 1 ml/ Amino Ac/ Electrol/Dextrose/Calcium 1,011 mls @ 75 mls/hr IV .BY DURATION [facility] Last Admin: 03/29/18 06:48 Dose: 75 mls/hr Amino Ac/Electrol/Dextrose/Calcium (Clinimix E 15) 1,000 mls @ 75 mls/hr IV .BY DURATION [facility] Last Admin: 03/29/18 20:12 Dose: 75 mls/hr Heparin Sodium (Porcine) 5,000 (units/ Sodium Chloride) 501 mls @ 5 mls/hr IV ASDIRECTED [facility] Last Admin: 03/27/18 12:50 Dose: 5 mls/hr Sodium Chloride (Normal Saline) 1,000 mls @ 50 mls/hr IV ASDIRECTED [facility] Last Admin: 03/30/18 13:36 Dose: 50 mls/hr Dextrose/Sodium Chloride (Dextrose 5%-1/2 Ns) 1,000 mls @ 75 mls/hr IV ASDIRECTED [facility] Last Admin: 03/31/18 23:53 Dose: 75 mls/hr Albumin Human (Albumin 25%) 25 gm in 100 mls @ 25 mls/hr IV Q24H [facility] Stop: 04/02/18 12:59 Last Admin: 04/01/18 08:13 Dose: 25 mls/hr Potassium Phosphate 20 mmole/ (Sodium Chloride) 256.6667 mls @ 85 mls/hr IV Q3H [facility] Stop: 04/01/18 18:59 Last Admin: 04/01/18 18:37 Dose: 85 mls/hr Dextrose/Sodium Chloride (Dextrose 5%-1/2 Ns) 1,000 mls @ 80 mls/hr IV ASDIRECTED [facility] Last Admin: 04/03/18 06:40 Dose: 80 mls/hr Cefazolin Sodium/Dextrose 2 gm (/ Premix) 50 mls @ 100 mls/hr IV ONCALL ONE Stop: 04/02/18 11:59 Last Admin: 04/02/18 13:59 Dose: 100 mls/hr Potassium Acetate 20 meq/ (Sodium Chloride) 110 mls @ 55 mls/hr IV Q2H [facility] Stop: 04/02/18 11:59 Last Admin: 04/02/18 10:10 Dose: 55 mls/hr Magnesium Sulfate 2 gm/ Premix 50 mls @ 25 mls/hr IV Q6H [facility] Stop: 04/05/18 07:59 Last Admin: 04/03/18 12:11 Dose: 25 mls/hr Albumin Human (Albumin 25%) 25 gm in 100 mls @ 25 mls/hr IV ONETIME ONE Stop: 04/02/18 17:59 Last Admin: 04/02/18 15:30 Dose: 25 mls/hr Potassium Chloride 20 meq/Lidocaine HCl 2 ml/ Sodium Chloride 112 mls @ 56 mls/ hr IV Q2H [facility] Stop: 04/03/18 17:59 Last Admin: 04/03/18 17:04 Dose: 56 mls/hr Magnesium Sulfate 2 gm/ Premix 50 mls @ 25 mls/hr IV Q6H [facility] Stop: 04/08/18 03:59 Last Admin: 04/07/18 15:14 Dose: Not Given Potassium Phosphate 15 mmole/ (Sodium Chloride) 255 mls @ 128 mls/hr IV Q2H [facility] Stop: 04/06/18 13:59 Last Admin: 04/06/18 12:49 Dose: 128 mls/hr Dextrose/Lactated Ringer's (Dextrose 5%-Lactated Ringers) 1,000 mls @ 100 mls/ hr IV ASDIRECTED [facility] Last Admin: 04/07/18 08:44 Dose: 100 mls/hr Meropenem 500 mg/ Sodium (Chloride) 50 mls @ 100 mls/hr IV ONCALL ONE Stop: 04/07/18 11:59 Last Admin: 04/07/18 15:13 Dose: Not Given Linezolid (Zyvox) Confirm Administered Dose 300 mls @ as directed .ROUTE .STK- MED ONE Stop: 04/07/18 15:26 Lactated Ringer's (Ringers, Lactated) Confirm Administered Dose 1,000 mls @ as directed .ROUTE .STK-MED ONE Stop: 04/07/18 15:35 Linezolid 600 mg/ Premix 300 mls @ 300 mls/hr IV ONETIME ONE Stop: 04/07/18 17:29 Last Admin: 04/07/18 16:25 Dose: 300 mls/hr Dextrose/Lactated Ringer's (Dextrose 5%-Lactated Ringers) 1,000 mls @ 175 mls/ hr IV ASDIRECTED [facility] Last Admin: 04/08/18 06:21 Dose: 175 mls/hr Linezolid 600 mg/ Premix 300 mls @ 300 mls/hr IV Q12H [facility] Last Admin: 04/10/18 03:46 Dose: 300 mls/hr Meropenem 500 mg/ Sodium (Chloride) 50 mls @ 100 mls/hr IV Q8H [facility] Last Admin: 04/11/18 06:23 Dose: 100 mls/hr Magnesium Sulfate 2 gm/ Premix 50 mls @ 25 mls/hr IV Q6H [facility] Stop: 04/09/18 13:59 Last Admin: 04/09/18 11:40 Dose: 25 mls/hr Dextrose/Lactated Ringer's (Dextrose 5%-Lactated Ringers) 1,000 mls @ 100 drops /hr IV ASDIRECTED [facility] Last Admin: 04/09/18 11:39 Dose: 100 drops/hr Albumin Human (Albumin 25%) 25 gm in 100 mls @ 25 mls/hr IV Q24H [facility] Stop: 04/12/18 13:59 Last Admin: 04/12/18 09:28 Dose: 25 mls/hr Albumin Human (Albumin 25%) 25 gm in 100 mls @ 25 mls/hr IV Q24H [facility] Stop: 04/12/18 17:59 Last Admin: 04/12/18 14:19 Dose: 25 mls/hr Dextrose/Lactated Ringer's (Dextrose 5%-Lactated Ringers) 1,000 mls @ 25 mls/ hr IV ASDIRECTED [facility] Sodium Chloride (Normal Saline) 1,000 mls @ 0 mls/hr IV ASDIRECTED [facility] Potassium Phosphate 22.5 mmole (/ Sodium Chloride) 257.5 mls @ 86 mls/hr IV Q3H [facility] Stop: 04/10/18 15:59 Last Admin: 04/10/18 14:47 Dose: 86 mls/hr Calcium Gluconate 1 gm/ Sodium (Chloride) 110 mls @ 100 mls/hr IV Q6H [facility] Stop: 04/10/18 18:05 Last Admin: 04/10/18 16:21 Dose: 100 mls/hr Doxycycline Hyclate 100 mg/ (Sodium Chloride) 100 mls @ 100 mls/hr IV Q12H [facility] Last Admin: 04/16/18 12:08 Dose: 100 mls/hr Acetaminophen 1,000 mg/ Premix 100 mls @ 400 mls/hr IV Q6H [facility] Stop: 04/12/18 06:44 Last Admin: 04/12/18 05:47 Dose: 400 mls/hr Potassium Chloride 20 meq/ (Premix) 100 mls @ 50 mls/hr IV Q2H [facility] Stop: 04/12/18 14:59 Last Admin: 04/12/18 13:29 Dose: 50 mls/hr Potassium Chloride 40 meq/ (Premix) 100 mls @ 25 mls/hr IV ONETIME ONE Stop: 04/12/18 12:19 Potassium Chloride 40 meq/ (Premix) 100 mls @ 25 mls/hr IV ONETIME ONE Stop: 04/12/18 20:59 Last Admin: 04/12/18 17:45 Dose: 25 mls/hr Potassium Phosphate 25 mmole/ (Sodium Chloride) 108.3333 mls @ 27 mls/hr IV Q4H [facility] Stop: 04/13/18 21:29 Last Admin: 04/13/18 18:13 Dose: 27 mls/hr Magnesium Sulfate 2 gm/ Premix 50 mls @ 25 mls/hr IV Q6H [facility] Stop: 04/17/18 04:59 Last Admin: 04/15/18 08:34 Dose: 25 mls/hr Vancomycin HCl 1.35 gm/ Sodium (Chloride) 250 mls @ 167 mls/hr IV ONETIME ONE Stop: 04/16/18 15:29 Last Admin: 04/16/18 15:04 Dose: 167 mls/hr Vancomycin HCl 1 gm/ Sodium (Chloride) 250 mls @ 167 mls/hr IV Q12H [facility] Last Admin: 04/17/18 02:21 Dose: 167 mls/hr Magnesium Sulfate 2 gm/ Premix 50 mls @ 25 mls/hr IV Q6H [facility] Stop: 04/21/18 02:59 Last Admin: 04/18/18 08:02 Dose: Not Given Insulin Human Lispro (Humalog) 0 unit SUBCUT Q6H [facility]; Protocol Last Admin: 03/30/18 16:32 Dose: Not Given Insulin Human Lispro (Humalog) 0 unit SUBCUT Q6H [facility]; Protocol Last Admin: 03/31/18 03:52 Dose: Not Given Insulin Human Lispro (Humalog) 0 unit SUBCUT QIDACANDBED [facility]; Protocol Stop: 04/12/18 11:01 Last Admin: 03/31/18 13:17 Dose: Not Given Lidocaine/Epinephrine (Xylocaine 1% With Epinephrine 1:100,000) Confirm Administered Dose 50 ml .ROUTE .STK-MED ONE Stop: 04/07/18 12:06 Linezolid (Zyvox) 600 mg IRR .STK-MED ONE Stop: 04/07/18 16:06 Last Admin: 04/07/18 16:05 Dose: 600 mg Loperamide HCl (Imodium) 2 mg PO ASDIRECTED PRN PRN Reason: DIARRHEA Melatonin (Melatonin) 9 mg PO BEDTIME [facility] Last Admin: 04/06/18 21:40 Dose: 9 mg Meropenem (Merrem) Confirm Administered Dose 500 mg .ROUTE .STK-MED ONE Stop: 03/18/18 19:40 Last Admin: 03/18/18 20:19 Dose: Not Given Meropenem (Merrem) Confirm Administered Dose 500 mg .ROUTE .STK-MED ONE Stop: 04/07/18 14:38 Last Admin: 04/07/18 16:00 Dose: 500 mg Meropenem (Merrem) Confirm Administered Dose 500 mg .ROUTE .STK-MED ONE Stop: 04/07/18 15:08 Last Admin: 04/07/18 16:05 Dose: 500 mg Methylprednisolone Sodium Succinate (Solu-Medrol) 125 mg IVPUSH ONETIME ONE Stop: 04/17/18 05:49 Last Admin: 04/17/18 06:02 Dose: 125 mg Midazolam HCl (Versed 1 Mg/Ml) Confirm Administered Dose 2 mg .ROUTE .STK-MED ONE Stop: 04/02/18 12:59 Morphine Sulfate (Morphine) 4 mg IVPUSH Q2H PRN PRN Reason: Pain Last Admin: 03/29/18 07:34 Dose: 4 mg Morphine Sulfate (Morphine Instant Printer Operator 150 Mg In 30 Ml) 0 mg IV ASDIRECTED PRN; Protocol PRN Reason: Pain Last Admin: 04/07/18 10:00 Dose: 150 mg Morphine Sulfate (Morphine Instant Printer Operator 150 Mg In 30 Ml) 0 mg IV ASDIRECTED PRN; Protocol PRN Reason: Pain Naloxone HCl (Narcan) 0.1 mg IV ASDIRECTED PRN PRN Reason: decreased respiratory rate Neostigmine Methylsulfate (Neostigmine) Confirm Administered Dose 5 mg .ROUTE .STK-MED ONE Stop: 03/18/18 19:48 Neostigmine Methylsulfate (Neostigmine) Confirm Administered Dose 5 mg .ROUTE .STK-MED ONE Stop: 04/07/18 10:56 Non-Formulary Medication (Total Parenteral Nutrition, Central) 1,000 ml .XX .Continue Order [facility]; Protocol Stop: 03/24/18 11:31 Non-Formulary Medication (Total Parenteral Nutrition, Central) 1,000 ml .XX .Continue Order [facility]; Protocol Non-Formulary Medication (Total Parenteral Nutrition, Central) 1,000 ml .XX .Continue Order [facility]; Protocol Non-Formulary Medication (Total Parenteral Nutrition, Central) 1,000 ml .XX .Continue Order [facility]; Protocol Stop: 03/28/18 12:00 Non-Formulary Medication (Total Parenteral Nutrition, Central) 1,000 ml .XX .Continue Order [facility] Stop: 04/08/18 08:01 Non-Formulary Medication (Total Parenteral Nutrition, Central) 1,000 ml .XX .Continue Order [facility] Stop: 04/09/18 10:00 Non-Formulary Medication (Total Parenteral Nutrition, Central) 1,000 ml .XX .Continue Order [facility] Stop: 04/10/18 10:00 Non-Formulary Medication (Total Parenteral Nutrition, Central) 1,000 ml .XX .Continue Order [facility] Stop: 04/11/18 10:00 Non-Formulary Medication (Total Parenteral Nutrition, Central) 1,000 ml .XX .Continue Order [facility] Stop: 04/12/18 12:00 Non-Formulary Medication (Total Parenteral Nutrition, Central) 1,000 ml .XX .Continue Order [facility] Stop: 04/13/18 12:00 Non-Formulary Medication (Total Parenteral Nutrition, Central) 1,000 ml .XX .Continue Order [facility] Stop: 04/15/18 07:46 Non-Formulary Medication (Total Parenteral Nutrition, Central) 1,000 ml .XX .Continue Order [facility] Stop: 04/16/18 10:00 Non-Formulary Medication (Total Parenteral Nutrition, Central) 1,000 ml .XX .Continue Order [facility] Stop: 04/17/18 12:00 Non-Formulary Medication (Total Parenteral Nutrition, Central) 1,000 ml .XX .Continue Order [facility] Stop: 04/18/18 07:01 Nystatin (Mycostatin) 5 ml PO QID [facility] Last Admin: 04/04/18 15:25 Dose: 5 ml Ondansetron HCl (Zofran) 4 mg IVPUSH ONETIME ONE Stop: 03/18/18 18:18 Last Admin: 03/18/18 18:27 Dose: 4 mg Ondansetron HCl (Zofran) Confirm Administered Dose 4 mg .ROUTE .STK-MED ONE Stop: 03/18/18 19:48 Ondansetron HCl (Zofran) Confirm Administered Dose 4 mg .ROUTE .STK-MED ONE Stop: 04/07/18 10:56 Oxycodone HCl (Oxycodone) 5 mg PO Q4H PRN PRN Reason: Pain (moderate 4-6) Last Admin: 04/06/18 05:19 Dose: 5 mg Pantoprazole Sodium (Protonix Iv) 40 mg IVPUSH DAILY [facility] Last Admin: 03/28/18 08:34 Dose: 40 mg Pantoprazole Sodium (Protonix) 40 mg PO ACBREAKFAST [facility] Last Admin: 04/07/18 08:10 Dose: 40 mg Phenylephrine HCl (Isaías-Synephrine) Confirm Administered Dose 10 mg .ROUTE .STK- MED ONE Stop: 03/18/18 20:05 Potassium Chloride (Klor-Con M20) 40 meq PO ONETIME ONE Stop: 04/03/18 13:16 Last Admin: 04/03/18 14:33 Dose: 40 meq Potassium Chloride (Klor-Con M20) 40 meq PO ONETIME ONE Stop: 04/03/18 17:01 Last Admin: 04/03/18 20:55 Dose: 40 meq Potassium Chloride (Klor-Con M20) 40 meq PO ONETIME ONE Stop: 04/04/18 09:01 Last Admin: 04/04/18 09:34 Dose: 40 meq Potassium Chloride (Klor-Con M20) 40 meq PO ONETIME ONE Stop: 04/04/18 17:01 Last Admin: 04/04/18 17:08 Dose: 40 meq Potassium Chloride (Klor-Con M20) 40 meq PO ONETIME ONE Stop: 04/05/18 09:01 Last Admin: 04/05/18 10:14 Dose: 40 meq Potassium Chloride (Klor-Con M20) 40 meq PO ONETIME ONE Stop: 04/05/18 17:01 Last Admin: 04/05/18 18:00 Dose: 40 meq Potassium Chloride (Klor-Con M20) 40 meq PO ONETIME ONE Stop: 04/13/18 08:31 Last Admin: 04/13/18 08:42 Dose: 40 meq Potassium Chloride (Klor-Con M20) 40 meq PO ONETIME ONE Stop: 04/13/18 13:01 Last Admin: 04/13/18 12:44 Dose: 40 meq Potassium Chloride (Klor-Con M20) 40 meq PO ONETIME ONE Stop: 04/13/18 17:01 Last Admin: 04/13/18 16:57 Dose: 40 meq Potassium Chloride (Klor-Con M20) 40 meq PO ONETIME ONE Stop: 04/15/18 14:31 Last Admin: 04/15/18 15:16 Dose: 40 meq Prednisone (Prednisone) 20 mg PO WITHBREAKFAST [facility] Last Admin: 03/30/18 08:59 Dose: 20 mg Propofol (Diprivan 20 Ml) Confirm Administered Dose 200 mg .ROUTE .STK-MED ONE Stop: 03/18/18 19:48 Propofol (Diprivan 20 Ml) Confirm Administered Dose 200 mg .ROUTE .STK-MED ONE Stop: 04/02/18 12:59 Propofol (Diprivan 20 Ml) Confirm Administered Dose 200 mg .ROUTE .STK-MED ONE Stop: 04/07/18 10:56 Rocuronium Wh[place] (Zemuron) Confirm Administered Dose 50 mg .ROUTE .STK-MED ONE Stop: 03/18/18 19:48 Rocuronium [place] (Zemuron) Confirm Administered Dose 50 mg .ROUTE .STK-MED ONE Stop: 04/07/18 10:56 Succinylcholine Chloride (Quelicin) Confirm Administered Dose 200 mg .ROUTE .STK -MED ONE Stop: 03/18/18 19:48 Vancomycin HCl (Vancomycin) 1 gm IV .PHARMACY TO DOSE [facility] Stop: 03/21/18 16:00 Vancomycin HCl (Vancomycin) 1 gm IV .PHARMACY TO DOSE [facility] Stop: 04/16/18 14:00 - Exam Quality Assessment: Supplemental Oxygen, Central Line/PICC, DVT Prophylaxis. No : Urine Catheter General: Alert, Oriented, Cooperative, No Acute Distress Lungs: Clear to Auscultation, Normal Respiratory Effort Cardiovascular: Regular Rate, Regular Rhythm, No Murmurs GI/Abdominal Exam: Soft, No Organomegaly, Tender. No: Distended, Guarding, Rigid, Rebound Extremities: Non-Tender, No Pedal Edema - Problem List Review Problem List Initiated/Reviewed/Updated: Yes - My Orders Last 24 Hours: My Active Orders 04/17/18 13:12 Consult to PICC Team [CONS] Routine Central Venous Line Insertion [OM.PC] Routine 04/17/18 13:13 Central Line Assessment [RC] QSHIFT 04/18/18 13:40 Notify Provider Consults [RC] ASDIRECTED Consult to Physician [CONS] Routine 04/19/18 Breakfast NPO After Midnight [Nothing per Oral After Midnight Diet] [DIET] - Plan Plan:: ASSESSMENT AND PLAN WOUND DEHISCENCE WITH UNDERLYING ABSCESS - status post exploratory laparotomy . Seems to be slowly improving on a daily basis, more alert and interactive, improved energy, oral intake seems to be very slowly improving with less output into the gastrostomy bag and increased output through the colostomy -Ciprofloxacin 400 mg IV every 12 hours -Zyvox IV -Remove central line -PICC line placement -Discontinue Sorto catheter -Surgical follow-up per surgery team SIGMOID COLON PERFORATION RESULTING IN ACUTE ABDOMEN AND SEPTIC SHOCK - postop course complicated by wound dehiscence as above. He is receiving nutritional support via TPN. Persistent difficulty with ileus. -Continue TPN initiated today -Latham catheter placement tomorrow, with removal of central line -Post operative per surgical team -Pain control -Saline lock IV SEPTIC SHOCK - resolved ACUTE HYPOXIC RESPIRATORY FAILURE - respiratory status stable with diuresis -Coughing, deep breathing and suctioning as able -Furosemide IV, assess need daily OSTEOMYELITIS RIGHT FIRST TOE-pain and swelling improved from yesterday, attempt at obtaining MRI was unsuccessful because of movement. Arterial Doppler study showed evidence of significant peripheral arterial disease in the right leg. -Outpatient follow-up with interventional radiology in [place] after he has healed from recent surgeries -Antibiotic therapy as above COPD - [id number] smoking history but no evidence for exacerbation at this time. -Nebulized albuterol as needed -Vigorous pulmonary toilet during the postoperative period HISTORY OF LUNG AND PROSTATE CARCINOMA - lung cancer felt to be stable, had been receiving treatment for management of prostate carcinoma prior to admission MAINTENANCE ISSUES -DVT prophylaxis; SCUDs -GI prophylaxis; Protonix 40 mg daily -Sorto catheter; placed at the time of surgery for strict intake and output monitoring -Nutrition; nothing by mouth DISPOSITION - anticipate discharge to group home after the hospital stay.
[2018-04-18] MEDS: Erythromycin Ethylsuccinate Susp 200 MG/5 ML 100 ML Bottle PO SCH ×2 (14:15→20:51)
[2018-04-19] MEDS: Linezolid 600 MG in Premix Bag 1 BAG IV SCH ×2 (00:43→13:15)
[2018-04-19] MEDS: Acetaminophen Soln 650 MG/20.3 ML UD Cup GTUBE SCH ×4 (02:33→19:26)
[2018-04-19] MEDS ORDERED: Potassium Chloride Riders 40 MEQ in Premix Bag 1 BAG IV ONE (04:22)
[2018-04-19] MEDS: 1: AA 5%/Calcium/D15W/Lytes 1,000 ML with MVI, Adult with Vitamin K 10 ML, Chromium/Copp IV SCH ×6 (04:39→16:48)
[2018-04-19] MEDS: Potassium Chloride 20 MEQ in Premix Bag 1 BAG IV SCH ×2 (05:47→07:37)
[2018-04-19] MEDS: Pantoprazole 40 MG Vial IV SCH (05:48)
[2018-04-19] MEDS: Albuterol/Ipratropium 3.0-0.5 MG/3 ML Neb Soln NEB SCH ×4 (07:00→23:57)
[2018-04-19] MEDS ORDERED: Lidocaine 1% with EPINEPHrine 1:100,000 50 ML MDV ONE (07:30)
[2018-04-19] MEDS ORDERED: Bupivacaine 0.5% 50 ML MDV ONE (07:30)
[2018-04-19] MEDS: Erythromycin Ethylsuccinate Susp 200 MG/5 ML 100 ML Bottle PO SCH ×3 (07:46→19:25)
[2018-04-19] MEDS ORDERED: Central Total Parenteral Nutrition Bag SCH (08:00)
[2018-04-19] MEDS ORDERED: Iopamidol 612 MG/ML 100 ML Bottle IV STA (08:27)
[2018-04-19] MEDS ORDERED: Sodium Chloride 0.9% 71 ML IV STA (08:27)
--- NOTE | 2018-04-19 08:48 | PN ---
DATE OF SERVICE: 04/19/2018 SUBJECTIVE: Kodak had a potassium this morning of 2.9. He is reporting more abdominal pain above into the left of his incision. Oral intake 1080. He has had 750 out of his ostomy. Urine output is 1250. Gastrostomy tube is 1400. He has consumed zero breakfast yesterday, 50% of lunch, and 50% of dinner. Potassium was replaced per hospitalist. PICC line was attempted twice yesterday. He is n.p.o. for a Latham catheter this morning. OBJECTIVE: GENERAL: Kodak Silva is a 77-year-old male. He is alert and orientated, sitting up in the chair. VITAL SIGNS: TPR from 03:24 was 98.7, 89, 20, blood pressure 140/81. HEENT: Negative. NECK: Negative. HEART: Regular rate and rhythm. LUNGS: Reveal no change. He continues to have decreased breath sounds in bases with loose rhonchi with coughing. ABDOMEN: Incision looks good. He is tender. His abdomen seems a little bit firmer. Wound VAC intact and looks good. Ostomy in place has liquid stool. NG tube is patent. EXTREMITIES: There is no peripheral edema. ASSESSMENT: 1. New abdominal pain. 2. Hypokalemia. Potassium 2.9. 3. Allergic reaction to vancomycin. 4. Osteomyelitis with diffuse atherosclerotic disease, suspected hemodynamic significant disease in the mid superficial femoral artery with monophasic flow. 5. Insertion of subclavian triple lumen, exploratory laparotomy, drainage of intraabdominal abscess, small bowel resection, small bowel stricture plasty, placement of Vicryl mesh for closure of fascial dehiscence, and evisceration of the intraabdominal abscess and focal small-bowel stricture, focal areas of small bowel deserosalization, insertion of the subclavian triple lumen. Date of surgery: 04/07/2018. Surgeon: Fredi Linn MD. 6. Percutaneous endoscopic gastrostomy tube placement for malnutrition with inadequate oral intake. Date of procedure: 04/02/2018. Fredi Linn MD. 7. Exploratory laparotomy, peritoneal lavage, sigmoid colon resection, left colostomy, Cristina's pouch for acute abdomen, and perforated viscus and sepsis. Date of surgery: 03/18/2018. Surgeon: Espinoza Adams MD. 8. Malnutrition. Requiring TPN therapy. PLAN: 1. Check CT of abdomen and pelvis with IV contrast only to be done after Latham catheter is placed. 2. Continue same TPN rate and content. 3. Check CBC, CMP, mag, and phos in a.m. We will continue to work on pulmonary status. 4. We will evaluate p.r.n. or in a.m. Rula Morley PA-C /[id number]
--- NOTE | 2018-04-19 09:45 | CRLCT ---
Indication: Increased abdominal pain. Technique: Multiple contiguous axial images were obtained from the lung bases through the symphysis pubis after the intravenous administration of 100 cc Isovue-300. Please note that all CT scans at this facility use dose modulation, iterative reconstruction, and/or weight-based dosing when appropriate to reduce radiation dose to as low as reasonably achievable. Comparison: March 18, 2018. Findings: Small bilateral pleural effusions are identified, greater on the right than the left. A tiny hiatal hernia is identified. Heart is normal in size. Coronary artery calcifications are identified. No pericardial effusion is identified. Bibasilar atelectasis is seen. Emphysematous changes are identified within the lung bases. The liver, spleen, pancreas, and right kidney are grossly normal. Atrophy of the left kidney is identified. No hydronephrosis is identified on either the right or the left. Sludge is identified within the gallbladder. Minimal thickening of the gallbladder wall is questioned. No intrahepatic biliary ductal dilatation is identified. On the pelvis, air is identified within the bladder, consistent with recent instrumentation. The prostate gland is grossly normal. Colostomy is identified in the left lower quadrant. Small and large bowel are normal in caliber. A G-tube is present. No free air is identified within the abdomen or pelvis. Small amount of free fluid is identified, particularly anterior to the anastomosis in the left lower quadrant. This may represent a walled off fluid collection such as an abscess. This is best seen on images number [id number], series 3. No air is identified within this fluid collection which is in the midline and just deep to the anterior abdominal wall. Mild fat stranding is identified within the mesentery of the left upper quadrant. An infrarenal abdominal aortic aneurysm is identified measuring 3.7 cm in size. This is unchanged. Compression of the L4 vertebral body is identified. This is unchanged. Significant degenerative changes of the spine are seen. Impression: Small amount of free fluid identified within the anterior abdomen. A developing abscess cannot be excluded. There is no air within this fluid collection. Postsurgical changes of a colostomy within the left lower quadrant. Diffuse fat stranding identified within the left upper quadrant, nonspecific. Asymmetrically smaller left kidney. Compression of L4, stable. Sludge within the gallbladder. Infrarenal abdominal aortic aneurysm. Please note that all CT scans at this facility use dose modulation, iterative reconstruction, and/or weight-based dosing when appropriate to reduce radiation dose to as low as reasonably achievable. Dictated by Julianne Sanabria MD @ Apr 19 2018 9:30AM Signed by Dr. Julianne Sanabria @ Apr 19 2018 9:44AM
--- NOTE | 2018-04-19 11:27 | PCM.PN ---
- General Info Date of Service: 04/19/18 Subjective Update: There were no acute events overnight. He does report increased lower abdominal pain today. He has not had any fevers. He does have some dark brown liquid in the colostomy bag today. He has a significantly higher output from his gastrostomy tube that he doesn't the colostomy. Tolerating full liquids for the most part. Toe pain and swelling are better today. Shortness of breath minimal at this time. He does remain on supplemental oxygen. Functional Status: Reports: Pain Controlled, Tolerating Diet - Review of Systems General: Denies: Fever Gastrointestinal: Reports: Abdominal Pain Musculoskeletal: Reports: Other (toe pain) - Patient Data Vitals - Most Recent: Last Vital Signs Temp 36.4 C 04/19/18 08:11 Pulse 84 04/19/18 08:11 Resp 16 04/19/18 08:11 BP 130/63 04/19/18 08:11 Pulse Ox 98 04/19/18 08:11 Weight - Most Recent: 67.767 kg I&O - Last 24 Hours: Intake & Output 04/18/18 04/19/18 04/19/18 22:59 06:59 14:59 Intake Total 1073 1730 150 Output Total 1425 1450 100 Balance -352 280 50 Lab Results Last 24 Hours: Laboratory Results - last 24 hr 04/19/18 04/19/18 Range/Units 03:27 03:27 WBC 14.0 H (4.5-11.0) K/uL RBC 3.11 L (4.30-5.90) M/uL Hgb 9.0 L (12.0-15.0) g/dL Hct 29.1 L (40.0-54.0) % MCV 94 (80-98) fL MCH 29 (27-31) pg MCHC 31 L (32-36) % Plt Count 449 H (150-400) K/uL Sodium 147 (140-148) mmol/L Potassium 2.9 L* (3.6-5.2) mmol/L Chloride 108 (100-108) mmol/L Carbon Dioxide 30 (21-32) mmol/L Anion Gap 11.9 (5.0-14.0) mmol/L BUN 36 H (7-18) mg/dL Creatinine 0.9 (0.8-1.3) mg/dL Est Cr Clr Drug Dosing 66.14 mL/min Estimated GFR (MDRD) > 60 (>60) Glucose 105 (74-106) mg/dL Calcium 8.4 L (8.5-10.1) mg/dL Phosphorus 3.5 (2.5-4.9) mg/dL Total Bilirubin 0.3 (0.2-1.0) mg/dL AST 50 H D (15-37) U/L ALT 68 (12-78) U/L Alkaline Phosphatase 137 H (46-116) U/L NT-Pro-B Natriuret Pep 426 (5-450) pg/mL Total Protein 5.7 L (6.4-8.2) g/dL Albumin 2.5 L (3.4-5.0) g/dL Globulin 3.2 (2.3-3.5) g/dL Albumin/Globulin Ratio 0.8 L (1.2-2.2) Med Orders - Current: Current Medications Acetaminophen (Tylenol) 1,000 mg GTUBE Q6H [facility] Last Admin: 04/19/18 07:45 Dose: 1,000 mg Albuterol (Proventil Neb Soln) 2.5 mg NEB Q4H PRN PRN Reason: Dyspnea Last Admin: 04/17/18 05:03 Dose: 2.5 mg Albuterol/Ipratropium (Duoneb 3.0-0.5 Mg/3 Ml) 3 ml NEB QIDRT [facility] Last Admin: 04/19/18 10:27 Dose: 3 ml Calcium Carbonate/Glycine (Tums) 1,000 mg PO Q2H PRN PRN Reason: Indigestion Last Admin: 04/15/18 20:27 Dose: 1,000 mg Dimethicone/Zinc Oxide (Rash Relief-Zinc Oxide [place]) 0 gm TOP ASDIRECTED PRN PRN Reason: Rash Last Admin: 03/28/18 16:55 Dose: 1 spray Diphenhydramine HCl (Benadryl) 25 mg IVPUSH Q6H PRN PRN Reason: Itching Last Admin: 04/17/18 04:23 Dose: 25 mg Erythromycin Ethylsuccinate (Eryped 200) 250 mg PO TID@0800,1400,2000 [facility] Last Admin: 04/19/18 07:46 Dose: 250 mg Heparin Sodium (Porcine) (Heparin Lock Flush 100 Units/Ml) 500 units FLUSH ASDIRECTED PRN PRN Reason: IV Use Last Admin: 04/19/18 03:32 Dose: 500 units Hydroxyzine HCl (Vistaril) 50 mg IM Q6H PRN PRN Reason: Pain Multivitamins/Minerals 10 ml/Chromium/Copper/Manganese/Seleni/Zn 1 ml/ Amino Ac/ Electrol/Dextrose/Calcium 1,011 mls @ 82 mls/hr IV .BY DURATION [facility] Last Admin: 04/18/18 16:28 Dose: 82 mls/hr Amino Ac/Electrol/Dextrose/Calcium (Clinimix E 15) 1,000 mls @ 82 mls/hr IV .BY DURATION [facility] Last Admin: 04/19/18 04:39 Dose: 82 mls/hr Ciprofloxacin/Dextrose 400 mg/ (Premix) 200 mls @ 200 mls/hr IV Q12H [facility] Last Admin: 04/18/18 23:07 Dose: 200 mls/hr Linezolid 600 mg/ Premix 300 mls @ 300 mls/hr IV Q12H [facility] Last Admin: 04/19/18 00:43 Dose: 300 mls/hr Lactobacillus Rhamnosus (Culturelle) 1 cap PO BID [facility] Last Admin: 04/18/18 21:06 Dose: 1 cap Pantoprazole Sodium (Protonix Iv) 40 mg IV Q24H [facility] Last Admin: 04/19/18 05:48 Dose: 40 mg Tramadol HCl (Ultram) 25 - 50 mg PO Q6H PRN PRN Reason: Pain Last Admin: 04/17/18 02:21 Dose: 50 mg Discontinued Medications Acetaminophen (Tylenol) 650 mg RECTAL Q4H PRN PRN Reason: Fever Acetaminophen (Tylenol) 650 mg PO Q4H PRN PRN Reason: Pain/Fever Last Admin: 04/05/18 20:14 Dose: 650 mg Acetaminophen (Tylenol) 1,000 mg GTUBE Q6H [facility] Last Admin: 04/17/18 14:02 Dose: 1,000 mg Albuterol/Ipratropium (Duoneb 3.0-0.5 Mg/3 Ml) 3 ml NEB Q4H PRN PRN Reason: Dyspnea Albuterol/Ipratropium (Duoneb 3.0-0.5 Mg/3 Ml) 3 ml NEB ONETIME ONE Stop: 04/07/18 10:31 Last Admin: 04/07/18 10:26 Dose: Not Given Bupivacaine HCl (Marcaine 0.5%) Confirm Administered Dose 50 ml .ROUTE .STK-MED ONE Stop: 04/07/18 12:06 Bupivacaine HCl (Marcaine 0.5%) Confirm Administered Dose 50 ml .ROUTE .STK-MED ONE Stop: 04/19/18 07:31 Ropivacaine 34 ml/Dexamethasone 8 mg/Epinephrine HCl 0.4 mg/ Sodium Chloride 43.6 ml 0 ml NERVRT ASDIRECTED [facility] Last Admin: 04/07/18 16:01 Dose: 80 syringe Dexamethasone (Dexamethasone) Confirm Administered Dose 4 mg .ROUTE .STK-MED ONE Stop: 03/18/18 19:48 Dexamethasone (Dexamethasone) Confirm Administered Dose 4 mg .ROUTE .STK-MED ONE Stop: 04/07/18 10:56 Epinephrine HCl (Adrenalin) Confirm Administered Dose 1 mg .ROUTE .STK-MED ONE Stop: 03/18/18 21:07 Erythromycin (Jh-Tab) 250 mg PO TID@0730,1630,2130 [facility] Last Admin: 04/17/18 10:03 Dose: 250 mg Erythromycin (Jh-Tab) 250 mg PO TID@0800,1400,2000 [facility] Stop: 04/18/18 08:01 Last Admin: 04/18/18 08:16 Dose: 250 mg Erythromycin Ethylsuccinate (Eryped 400) 125 mg PO Q6H [facility] Last Admin: 04/07/18 15:14 Dose: Not Given Fentanyl (Sublimaze) Confirm Administered Dose 250 mcg .ROUTE .STK-MED ONE Stop: 03/18/18 19:48 Fentanyl (Sublimaze) Confirm Administered Dose 250 mcg .ROUTE .STK-MED ONE Stop: 04/02/18 12:59 Fentanyl (Sublimaze) Confirm Administered Dose 250 mcg .ROUTE .STK-MED ONE Stop: 04/07/18 10:56 Furosemide (Lasix) 20 mg IVPUSH ONETIME ONE Stop: 03/23/18 09:46 Last Admin: 03/23/18 10:18 Dose: 20 mg Furosemide (Lasix) 20 mg IVPUSH NOW ONE Stop: 03/25/18 10:01 Last Admin: 03/25/18 10:17 Dose: 20 mg Furosemide (Lasix) 20 mg IVPUSH ONETIME ONE Stop: 03/26/18 09:16 Last Admin: 03/26/18 09:10 Dose: 20 mg Furosemide (Lasix) 20 mg IVPUSH ONETIME ONE Stop: 03/26/18 16:01 Last Admin: 03/26/18 18:28 Dose: Not Given Furosemide (Lasix) 20 mg IVPUSH NOW ONE Stop: 03/27/18 10:01 Last Admin: 03/27/18 10:26 Dose: 20 mg Furosemide (Lasix) 20 mg IVPUSH ONETIME ONE Stop: 03/30/18 13:11 Last Admin: 03/30/18 13:36 Dose: 20 mg Furosemide (Lasix) 20 mg IVPUSH NOW ONE Stop: 03/31/18 11:55 Last Admin: 03/31/18 13:04 Dose: 20 mg Furosemide (Lasix) 20 mg IVPUSH NOW ONE Stop: 04/01/18 12:05 Last Admin: 04/01/18 12:43 Dose: 20 mg Furosemide (Lasix) 20 mg IVPUSH NOW ONE Stop: 04/02/18 15:46 Last Admin: 04/02/18 15:53 Dose: 20 mg Furosemide (Lasix) 40 mg IVPUSH NOW ONE Stop: 04/03/18 09:01 Last Admin: 04/03/18 09:45 Dose: 40 mg Furosemide (Lasix) 40 mg IVPUSH NOW ONE Stop: 04/04/18 15:31 Last Admin: 04/04/18 15:55 Dose: 40 mg Furosemide (Lasix) 40 mg IVPUSH NOW ONE Stop: 04/05/18 09:01 Last Admin: 04/05/18 10:15 Dose: 40 mg Furosemide (Lasix) 40 mg IVPUSH ONETIME ONE Stop: 04/08/18 12:01 Last Admin: 04/08/18 11:01 Dose: 40 mg Furosemide (Lasix) 40 mg IVPUSH ONETIME STA Stop: 04/09/18 06:48 Last Admin: 04/09/18 10:16 Dose: Not Given Furosemide (Lasix) 20 mg IVPUSH ONETIME ONE Stop: 04/09/18 12:01 Last Admin: 04/09/18 13:43 Dose: Not Given Furosemide (Lasix) 40 mg IVPUSH ONETIME STA Stop: 04/09/18 10:08 Last Admin: 04/09/18 10:09 Dose: 40 mg Furosemide (Lasix) Confirm Administered Dose 40 mg .ROUTE .STK-MED ONE Stop: 04/09/18 10:08 Last Admin: 04/09/18 10:16 Dose: 40 mg Furosemide (Lasix) 40 mg IVPUSH ONETIME ONE Stop: 04/09/18 16:01 Last Admin: 04/09/18 15:54 Dose: 40 mg Furosemide (Lasix) 40 mg IVPUSH ONETIME ONE Stop: 04/10/18 12:01 Last Admin: 04/10/18 14:03 Dose: 40 mg Furosemide (Lasix) 20 mg IVPUSH ONETIME ONE Stop: 04/10/18 20:01 Last Admin: 04/10/18 21:10 Dose: 20 mg Furosemide (Lasix) 40 mg IVPUSH NOW ONE Stop: 04/11/18 11:31 Last Admin: 04/11/18 12:58 Dose: 40 mg Furosemide (Lasix) 40 mg IVPUSH NOW ONE Stop: 04/12/18 11:21 Last Admin: 04/12/18 13:28 Dose: 40 mg Furosemide (Lasix) Confirm Administered Dose 40 mg .ROUTE .STK-MED ONE Stop: 04/12/18 13:27 Last Admin: 04/12/18 13:52 Dose: Not Given Furosemide (Lasix) 40 mg IVPUSH NOW ONE Stop: 04/13/18 08:31 Last Admin: 04/13/18 08:42 Dose: 40 mg Furosemide (Lasix) 40 mg IVPUSH NOW ONE Stop: 04/14/18 10:01 Last Admin: 04/14/18 10:09 Dose: 40 mg Furosemide (Lasix) 20 mg IV ONETIME ONE Stop: 04/17/18 12:31 Last Admin: 04/17/18 12:22 Dose: 20 mg Glycopyrrolate (Robinul) Confirm Administered Dose 1 mg .ROUTE .STK-MED ONE Stop: 03/18/18 19:48 Glycopyrrolate (Robinul) Confirm Administered Dose 1 mg .ROUTE .STK-MED ONE Stop: 04/07/18 10:56 Heparin Sodium (Porcine) (Heparin Sodium) Confirm Administered Dose 5,000 units .ROUTE .STK-MED ONE Stop: 03/18/18 19:51 Heparin Sodium (Porcine) (Heparin Lock Flush 100 Units/Ml) Confirm Administered Dose 500 units .ROUTE .[facility] ONE Stop: 03/22/18 12:17 Last Admin: 03/22/18 12:30 Dose: Not Given Heparin Sodium (Porcine) (Heparin Sodium) Confirm Administered Dose 5,000 units .ROUTE .[facility] ONE Stop: 03/24/18 19:52 Last Admin: 03/24/18 20:33 Dose: 5,000 units Heparin Sodium (Porcine) (Heparin Lock Flush 100 Units/Ml) Confirm Administered Dose 1,000 units .ROUTE .[facility]-MED ONE Stop: 04/07/18 12:06 Last Admin: 04/07/18 14:30 Dose: 500 units Heparin Sodium (Porcine) (Heparin Lock Flush 100 Units/Ml) Confirm Administered Dose 1,500 units .ROUTE .[facility] ONE Stop: 04/19/18 07:31 Hydrocortisone Sodium Succinate (Solu-Cortef) 100 mg IVPUSH Q12H [facility] Last Admin: 03/28/18 20:15 Dose: 100 mg Hydrocortisone Sodium Succinate (Solu-Cortef) 100 mg IVPUSH DAILY [facility] Last Admin: 03/30/18 13:39 Dose: Not Given Hydromorphone HCl (Dilaudid) 0.5 mg IVPUSH ONETIME ONE Stop: 03/18/18 17:43 Last Admin: 03/18/18 17:47 Dose: 0.5 mg Hydromorphone HCl (Dilaudid) 1 mg IVPUSH ONETIME ONE Stop: 03/18/18 18:18 Last Admin: 03/18/18 18:27 Dose: 1 mg Hydromorphone HCl (Dilaudid) 0.5 mg IVPUSH ONETIME ONE Stop: 04/16/18 09:58 Last Admin: 04/16/18 10:31 Dose: 0.5 mg Hydroxyzine HCl (Vistaril) 100 mg IM Q6H PRN PRN Reason: Pain Last Admin: 04/11/18 08:49 Dose: 100 mg Sodium Chloride (Normal Saline) 1,000 mls @ 1,000 mls/hr IV ASDIRECTED [facility] Last Admin: 03/18/18 17:47 Dose: 1,000 mls/hr Sodium Chloride (Normal Saline) 1,000 mls @ 999 mls/hr IV ASDIRECTED [facility] Last Admin: 03/18/18 19:31 Dose: 999 mls/hr Meropenem 500 mg/ Sodium (Chloride) 50 mls @ 100 mls/hr IV ONETIME ONE Stop: 03/18/18 19:09 Last Admin: 03/18/18 19:01 Dose: 100 mls/hr Sodium Chloride (Normal Saline) Confirm Administered Dose 50 mls @ as directed .ROUTE .[facility]-MED ONE Stop: 03/18/18 19:40 Last Admin: 03/18/18 20:19 Dose: Not Given Aztreonam 2 gm/ Sodium (Chloride) 50 mls @ 100 mls/hr IV ONETIME ONE Stop: 03/18/18 20:01 Last Admin: 03/18/18 20:44 Dose: 100 mls/hr Meropenem 500 mg/ Sodium (Chloride) 50 mls @ 100 mls/hr IV ONETIME ONE Stop: 03/18/18 20:00 Last Admin: 03/18/18 19:40 Dose: 100 mls/hr Sodium Chloride (Normal Saline) Confirm Administered Dose 250 mls @ as directed .ROUTE .[facility] ONE Stop: 03/18/18 19:59 Lactated Ringer's (Ringers, Lactated) Confirm Administered Dose 1,000 mls @ as [facility] Stop: 03/18/18 19:59 Sodium Chloride (Normal Saline) Confirm Administered Dose 500 mls @ as directed .ROUTE .[facility] ONE Stop: 03/18/18 19:59 Norepinephrine Bitartrate 8 mg (/ Dextrose/Water) 258 mls @ 3.87 mls/hr IV TITRATE [facility]; Protocol Last Admin: 03/19/18 11:45 Dose: 12 mcg/min, 23.22 mls/hr Lactated Ringer's (Ringers, Lactated) Confirm Administered Dose 1,000 mls @ as directed .ROUTE .[facility]-MED ONE Stop: 03/18/18 21:42 Propofol (Diprivan 100 Ml) 100 mls @ 2.082 mls/hr IV TITRATE [facility]; Protocol Last Titration: 03/27/18 06:35 Dose: 10 mcg/kg/min, 4.164 mls/hr Aztreonam 1 gm/ Sodium (Chloride) 50 mls @ 100 mls/hr IV Q8H [facility] Last Admin: 03/19/18 05:29 Dose: 100 mls/hr Potassium Chloride/Dextrose/Sod Cl (D5 1/2 Ns W/ 20 Meq/L Kcl) 1,000 mls @ 150 mls/hr IV ASDIRECTED [facility] Last Admin: 03/18/18 23:11 Dose: 150 mls/hr Meropenem 1 gm/ Sodium (Chloride) 50 mls @ 100 mls/hr IV Q12H [facility] Stop: 03/29/18 22:00 Last Admin: 03/29/18 20:10 Dose: 100 mls/hr Lactated Ringer's (Ringers, Lactated) 1,000 mls @ 500 mls/hr IV ASDIRECTED [facility] Last Admin: 03/19/18 01:23 Dose: 500 mls/hr Vasopressin 100 units/ (Dextrose/Water) 255 mls @ 1.53 mls/hr IV TITRATE [facility]; Protocol Stop: 03/21/18 13:00 Last Titration: 03/21/18 11:03 Dose: 0.02 units/min, 3.06 mls/hr Lactated Ringer's (Ringers, Lactated) 1,000 mls @ 500 mls/hr IV BOLUS [facility] Stop: 03/19/18 05:29 Last Admin: 03/19/18 04:02 Dose: 500 mls/hr Aztreonam/Dextrose 1 gm/ (Premix) 50 mls @ 100 mls/hr IV Q8H [facility] Last Admin: 03/28/18 05:26 Dose: 100 mls/hr Lactated Ringer's (Ringers, Lactated) 1,000 mls @ 500 mls/hr IV .[facility]OL[facility] ONE Stop: 03/19/18 14:59 Last Admin: 03/19/18 14:27 Dose: 500 mls/hr Lactated Ringer's (Ringers, Lactated) 1,000 mls @ 150 mls/hr IV ASDIRECTED [facility] Last Admin: 03/21/18 11:53 Dose: 150 mls/hr Norepinephrine Bitartrate 8 mg (/ Dextrose/Water) 250 mls @ 3.75 mls/hr IV TITRATE [facility]; Protocol Last Titration: 03/27/18 09:04 Dose: 4 mcg/min, 7.5 mls/hr Magnesium Sulfate 2 gm/ Premix 50 mls @ 25 mls/hr IV Q6H [facility] Stop: 03/20/18 17:59 Last Admin: 03/20/18 16:30 Dose: 25 mls/hr Vancomycin HCl 1.25 gm/ Sodium (Chloride) 250 mls @ 170 mls/hr IV Q24H [facility] Last Admin: 03/22/18 10:06 Dose: 170 mls/hr Vasopressin 40 units/ Dextrose (/Water) 100 mls @ 3 mls/hr IV TITRATE [facility]; Protocol Last Titration: 03/23/18 01:00 Dose: 0 units/min, 0 mls/hr Potassium Chloride 20 meq/ (Premix) 100 mls @ 50 mls/hr IV Q2H [facility] Stop: 03/21/18 22:59 Last Admin: 03/21/18 22:20 Dose: 50 mls/hr Potassium Chloride 20 meq/ (Premix) 100 mls @ 50 mls/hr IV Q2H [facility] Stop: 03/22/18 12:59 Last Admin: 03/22/18 11:30 Dose: 50 mls/hr Potassium Chloride 20 meq/ (Premix) 100 mls @ 50 mls/hr IV Q2H [facility] Stop: 03/22/18 17:29 Last Admin: 03/22/18 16:13 Dose: 50 mls/hr Potassium Chloride (Kcl 20 Meq In Water 100 Ml) 100 mls @ 50 mls/hr IV Q2H [facility] Stop: 03/23/18 01:59 Last Admin: 03/23/18 00:53 Dose: 50 mls/hr Potassium Chloride 40 meq/ (Premix) 100 mls @ 25 mls/hr IV ONETIME ONE Stop: 03/23/18 14:29 Last Admin: 03/23/18 10:31 Dose: 25 mls/hr Vancomycin HCl 1.4 gm/ Sodium (Chloride) 250 mls @ 170 mls/hr IV Q24H [facility] Last Admin: 03/24/18 11:13 Dose: 170 mls/hr Multivitamins/Minerals 10 ml/Chromium/Copper/Manganese/Seleni/Zn 1 ml/ Amino Ac/ Electrol/Dextrose/Calcium 1,011 mls @ 75 mls/hr IV .BY DURATION [facility] Last Admin: 03/25/18 22:34 Dose: 75 mls/hr Amino Ac/Electrol/Dextrose/Calcium (Clinimix E 5/15) 1,000 mls @ 75 mls/hr IV .BY DURATION [facility] Last Admin: 03/25/18 08:11 Dose: 75 mls/hr Vasopressin 100 units/ (Dextrose/Water) 255 mls @ 1.53 mls/hr IV TITRATE [facility]; Protocol Last Titration: 03/25/18 11:51 Dose: 0 units/min, 0 mls/hr Potassium Chloride 20 meq/ (Premix) 100 mls @ 50 mls/hr IV Q2H [facility] Stop: 03/24/18 13:59 Last Admin: 03/24/18 12:13 Dose: 50 mls/hr Multivitamins/Minerals 10 ml/Chromium/Copper/Manganese/Seleni/Zn 1 ml/ Amino Ac/ Electrol/Dextrose/Calcium 1,011 mls @ 75 mls/hr IV .BY DURATION [facility] Last Admin: 03/29/18 06:48 Dose: 75 mls/hr Amino Ac/Electrol/Dextrose/Calcium (Clinimix E 5/15) 1,000 mls @ 75 mls/hr IV .BY DURATION [facility] Last Admin: 03/29/18 20:12 Dose: 75 mls/hr Heparin Sodium (Porcine) 5,000 (units/ Sodium Chloride) 501 mls @ 5 mls/hr IV ASDIRECTED [facility] Last Admin: 03/27/18 12:50 Dose: 5 mls/hr Sodium Chloride (Normal Saline) 1,000 mls @ 50 mls/hr IV ASDIRECTED [facility] Last Admin: 03/30/18 13:36 Dose: 50 mls/hr Dextrose/Sodium Chloride (Dextrose 5%-1/2 Ns) 1,000 mls @ 75 mls/hr IV ASDIRECTED [facility] Last Admin: 03/31/18 23:53 Dose: 75 mls/hr Albumin Human (Albumin 25%) 25 gm in 100 mls @ 25 mls/hr IV Q24H [facility] Stop: 04/02/18 12:59 Last Admin: 04/01/18 08:13 Dose: 25 mls/hr Potassium Phosphate 20 mmole/ (Sodium Chloride) 256.6667 mls @ 85 mls/hr IV Q3H [facility] Stop: 04/01/18 18:59 Last Admin: 04/01/18 18:37 Dose: 85 mls/hr Dextrose/Sodium Chloride (Dextrose 5%-1/2 Ns) 1,000 mls @ 80 mls/hr IV ASDIRECTED [facility] Last Admin: 04/03/18 06:40 Dose: 80 mls/hr Cefazolin Sodium/Dextrose 2 gm (/ Premix) 50 mls @ 100 mls/hr IV ONCALL ONE Stop: 04/02/18 11:59 Last Admin: 04/02/18 13:59 Dose: 100 mls/hr Potassium Acetate 20 meq/ (Sodium Chloride) 110 mls @ 55 mls/hr IV Q2H [facility] Stop: 04/02/18 11:59 Last Admin: 04/02/18 10:10 Dose: 55 mls/hr Magnesium Sulfate 2 gm/ Premix 50 mls @ 25 mls/hr IV Q6H [facility] Stop: 04/05/18 07:59 Last Admin: 04/03/18 12:11 Dose: 25 mls/hr Albumin Human (Albumin 25%) 25 gm in 100 mls @ 25 mls/hr IV ONETIME ONE Stop: 04/02/18 17:59 Last Admin: 04/02/18 15:30 Dose: 25 mls/hr Potassium Chloride 20 meq/Lidocaine HCl 2 ml/ Sodium Chloride 112 mls @ 56 mls/ hr IV Q2H [facility] Stop: 04/03/18 17:59 Last Admin: 04/03/18 17:04 Dose: 56 mls/hr Magnesium Sulfate 2 gm/ Premix 50 mls @ 25 mls/hr IV Q6H [facility] Stop: 04/08/18 03:59 Last Admin: 04/07/18 15:14 Dose: Not Given Potassium Phosphate 15 mmole/ (Sodium Chloride) 255 mls @ 128 mls/hr IV Q2H [facility] Stop: 04/06/18 13:59 Last Admin: 04/06/18 12:49 Dose: 128 mls/hr Dextrose/Lactated Ringer's (Dextrose 5%-Lactated Ringers) 1,000 mls @ 100 mls/ hr IV ASDIRECTED [facility] Last Admin: 04/07/18 08:44 Dose: 100 mls/hr Meropenem 500 mg/ Sodium (Chloride) 50 mls @ 100 mls/hr IV ONCALL ONE Stop: 04/07/18 11:59 Last Admin: 04/07/18 15:13 Dose: Not Given Linezolid (Zyvox) Confirm Administered Dose 300 mls @ as directed .ROUTE .STK- MED ONE Stop: 04/07/18 15:26 Lactated Ringer's (Ringers, Lactated) Confirm Administered Dose 1,000 mls @ as directed .ROUTE .STK-MED ONE Stop: 04/07/18 15:35 Linezolid 600 mg/ Premix 300 mls @ 300 mls/hr IV ONETIME ONE Stop: 04/07/18 17:29 Last Admin: 04/07/18 16:25 Dose: 300 mls/hr Dextrose/Lactated Ringer's (Dextrose 5%-Lactated Ringers) 1,000 mls @ 175 mls/ hr IV ASDIRECTED [facility] Last Admin: 04/08/18 06:21 Dose: 175 mls/hr Linezolid 600 mg/ Premix 300 mls @ 300 mls/hr IV Q12H [facility] Last Admin: 04/10/18 03:46 Dose: 300 mls/hr Meropenem 500 mg/ Sodium (Chloride) 50 mls @ 100 mls/hr IV Q8H [facility] Last Admin: 04/11/18 06:23 Dose: 100 mls/hr Magnesium Sulfate 2 gm/ Premix 50 mls @ 25 mls/hr IV Q6H [facility] Stop: 04/09/18 13:59 Last Admin: 04/09/18 11:40 Dose: 25 mls/hr Dextrose/Lactated Ringer's (Dextrose 5%-Lactated Ringers) 1,000 mls @ 100 drops /hr IV ASDIRECTED [facility] Last Admin: 04/09/18 11:39 Dose: 100 drops/hr Albumin Human (Albumin 25%) 25 gm in 100 mls @ 25 mls/hr IV Q24H [facility] Stop: 04/12/18 13:59 Last Admin: 04/12/18 09:28 Dose: 25 mls/hr Albumin Human (Albumin 25%) 25 gm in 100 mls @ 25 mls/hr IV Q24H [facility] Stop: 04/12/18 17:59 Last Admin: 04/12/18 14:19 Dose: 25 mls/hr Dextrose/Lactated Ringer's (Dextrose 5%-Lactated Ringers) 1,000 mls @ 25 mls/ hr IV ASDIRECTED [facility] Sodium Chloride (Normal Saline) 1,000 mls @ 0 mls/hr IV ASDIRECTED [facility] Potassium Phosphate 22.5 mmole (/ Sodium Chloride) 257.5 mls @ 86 mls/hr IV Q3H [facility] Stop: 04/10/18 15:59 Last Admin: 04/10/18 14:47 Dose: 86 mls/hr Calcium Gluconate 1 gm/ Sodium (Chloride) 110 mls @ 100 mls/hr IV Q6H [facility] Stop: 04/10/18 18:05 Last Admin: 04/10/18 16:21 Dose: 100 mls/hr Doxycycline Hyclate 100 mg/ (Sodium Chloride) 100 mls @ 100 mls/hr IV Q12H [facility] Last Admin: 04/16/18 12:08 Dose: 100 mls/hr Acetaminophen 1,000 mg/ Premix 100 mls @ 400 mls/hr IV Q6H [facility] Stop: 04/12/18 06:44 Last Admin: 04/12/18 05:47 Dose: 400 mls/hr Potassium Chloride 20 meq/ (Premix) 100 mls @ 50 mls/hr IV Q2H [facility] Stop: 04/12/18 14:59 Last Admin: 04/12/18 13:29 Dose: 50 mls/hr Potassium Chloride 40 meq/ (Premix) 100 mls @ 25 mls/hr IV ONETIME ONE Stop: 04/12/18 12:19 Potassium Chloride 40 meq/ (Premix) 100 mls @ 25 mls/hr IV ONETIME ONE Stop: 04/12/18 20:59 Last Admin: 04/12/18 17:45 Dose: 25 mls/hr Potassium Phosphate 25 mmole/ (Sodium Chloride) 108.3333 mls @ 27 mls/hr IV Q4H [facility] Stop: 04/13/18 21:29 Last Admin: 04/13/18 18:13 Dose: 27 mls/hr Magnesium Sulfate 2 gm/ Premix 50 mls @ 25 mls/hr IV Q6H [facility] Stop: 04/17/18 04:59 Last Admin: 04/15/18 08:34 Dose: 25 mls/hr Vancomycin HCl 1.35 gm/ Sodium (Chloride) 250 mls @ 167 mls/hr IV ONETIME ONE Stop: 04/16/18 15:29 Last Admin: 04/16/18 15:04 Dose: 167 mls/hr Vancomycin HCl 1 gm/ Sodium (Chloride) 250 mls @ 167 mls/hr IV Q12H [facility] Last Admin: 04/17/18 02:21 Dose: 167 mls/hr Magnesium Sulfate 2 gm/ Premix 50 mls @ 25 mls/hr IV Q6H [facility] Stop: 04/21/18 02:59 Last Admin: 04/18/18 08:02 Dose: Not Given Magnesium Sulfate 2 gm/ Premix 50 mls @ 25 mls/hr IV Q6H [facility] Stop: 04/18/18 17:59 Last Admin: 04/18/18 16:28 Dose: 25 mls/hr Potassium Chloride 20 meq/ (Premix) 100 mls @ 50 mls/hr IV Q2H [facility] Stop: 04/19/18 08:59 Last Admin: 04/19/18 07:37 Dose: 50 mls/hr Sodium Chloride (Normal Saline) 71 mls @ 3.1 mls/sec IV ASDIRECTED [facility] Stop: 04/19/18 08:28 Last Admin: 04/19/18 09:15 Dose: 3.1 mls/sec Insulin Human Lispro (Humalog) 0 unit SUBCUT Q6H [facility]; Protocol Last Admin: 03/30/18 16:32 Dose: Not Given Insulin Human Lispro (Humalog) 0 unit SUBCUT Q6H [facility]; Protocol Last Admin: 03/31/18 03:52 Dose: Not Given Insulin Human Lispro (Humalog) 0 unit SUBCUT QIDACANDBED [facility]; Protocol Stop: 04/12/18 11:01 Last Admin: 03/31/18 13:17 Dose: Not Given Iopamidol (Isovue-300 (61%)) 100 ml IV . DIRECTED [facility] Stop: 04/19/18 08:28 Last Admin: 04/19/18 09:15 Dose: 100 ml Lidocaine/Epinephrine (Xylocaine 1% With Epinephrine 1:100,000) Confirm Administered Dose 50 ml .ROUTE .STK-MED ONE Stop: 04/07/18 12:06 Lidocaine/Epinephrine (Xylocaine 1% With Epinephrine 1:100,000) Confirm Administered Dose 50 ml .ROUTE .STK-MED ONE Stop: 04/19/18 07:31 Linezolid (Zyvox) 600 mg IRR .STK-MED ONE Stop: 04/07/18 16:06 Last Admin: 04/07/18 16:05 Dose: 600 mg Loperamide HCl (Imodium) 2 mg PO ASDIRECTED PRN PRN Reason: DIARRHEA Melatonin (Melatonin) 9 mg PO BEDTIME [facility] Last Admin: 04/06/18 21:40 Dose: 9 mg Meropenem (Merrem) Confirm Administered Dose 500 mg .ROUTE .STK-MED ONE Stop: 03/18/18 19:40 Last Admin: 03/18/18 20:19 Dose: Not Given Meropenem (Merrem) Confirm Administered Dose 500 mg .ROUTE .STK-MED ONE Stop: 04/07/18 14:38 Last Admin: 04/07/18 16:00 Dose: 500 mg Meropenem (Merrem) Confirm Administered Dose 500 mg .ROUTE .STK-MED ONE Stop: 04/07/18 15:08 Last Admin: 04/07/18 16:05 Dose: 500 mg Methylprednisolone Sodium Succinate (Solu-Medrol) 125 mg IVPUSH ONETIME ONE Stop: 04/17/18 05:49 Last Admin: 04/17/18 06:02 Dose: 125 mg Midazolam HCl (Versed 1 Mg/Ml) Confirm Administered Dose 2 mg .ROUTE .STK-MED ONE Stop: 04/02/18 12:59 Morphine Sulfate (Morphine) 4 mg IVPUSH Q2H PRN PRN Reason: Pain Last Admin: 03/29/18 07:34 Dose: 4 mg Morphine Sulfate (Morphine Vineyard Tender 150 Mg In 30 Ml) 0 mg IV ASDIRECTED PRN; Protocol PRN Reason: Pain Last Admin: 04/07/18 10:00 Dose: 150 mg Morphine Sulfate (Morphine Vineyard Tender 150 Mg In 30 Ml) 0 mg IV ASDIRECTED PRN; Protocol PRN Reason: Pain Naloxone HCl (Narcan) 0.1 mg IV ASDIRECTED PRN PRN Reason: decreased respiratory rate Neostigmine Methylsulfate (Neostigmine) Confirm Administered Dose 5 mg .ROUTE .STK-MED ONE Stop: 03/18/18 19:48 Neostigmine Methylsulfate (Neostigmine) Confirm Administered Dose 5 mg .ROUTE .STK-MED ONE Stop: 04/07/18 10:56 Non-Formulary Medication (Total Parenteral Nutrition, Central) 1,000 ml .XX .Continue Order CIARRA; Protocol Stop: 03/24/18 11:31 Non-Formulary Medication (Total Parenteral Nutrition, Central) 1,000 ml .XX .Continue Order [facility]; Protocol Non-Formulary Medication (Total Parenteral Nutrition, Central) 1,000 ml .XX .Continue Order [facility]; Protocol Non-Formulary Medication (Total Parenteral Nutrition, Central) 1,000 ml .XX .Continue Order [facility]ARRA; Protocol Stop: 03/28/18 12:00 Non-Formulary Medication (Total Parenteral Nutrition, Central) 1,000 ml .XX .Continue Order [facility] Stop: 04/08/18 08:01 Non-Formulary Medication (Total Parenteral Nutrition, Central) 1,000 ml .XX .Continue Order [facility] Stop: 04/09/18 10:00 Non-Formulary Medication (Total Parenteral Nutrition, Central) 1,000 ml .XX .Continue Order [facility] Stop: 04/10/18 10:00 Non-Formulary Medication (Total Parenteral Nutrition, Central) 1,000 ml .XX .Continue Order [facility] Stop: 04/11/18 10:00 Non-Formulary Medication (Total Parenteral Nutrition, Central) 1,000 ml .XX .Continue Order [facility] Stop: 04/12/18 12:00 Non-Formulary Medication (Total Parenteral Nutrition, Central) 1,000 ml .XX .Continue Order [facility] Stop: 04/13/18 12:00 Non-Formulary Medication (Total Parenteral Nutrition, Central) 1,000 ml .XX .Continue Order [facility] Stop: 04/15/18 07:46 Non-Formulary Medication (Total Parenteral Nutrition, Central) 1,000 ml .XX .Continue Order [facility] Stop: 04/16/18 10:00 Non-Formulary Medication (Total Parenteral Nutrition, Central) 1,000 ml .XX .Continue Order [facility] Stop: 04/17/18 12:00 Non-Formulary Medication (Total Parenteral Nutrition, Central) 1,000 ml .XX .Continue Order [facility] Stop: 04/18/18 07:01 Non-Formulary Medication (Total Parenteral Nutrition, Central) 1,000 ml .XX .Continue Order [facility] Stop: 04/19/18 08:01 Nystatin (Mycostatin) 5 ml PO QID [facility] Last Admin: 04/04/18 15:25 Dose: 5 ml Ondansetron HCl (Zofran) 4 mg IVPUSH ONETIME ONE Stop: 03/18/18 18:18 Last Admin: 03/18/18 18:27 Dose: 4 mg Ondansetron HCl (Zofran) Confirm Administered Dose 4 mg .ROUTE .STK-MED ONE Stop: 03/18/18 19:48 Ondansetron HCl (Zofran) Confirm Administered Dose 4 mg .ROUTE .STK-MED ONE Stop: 04/07/18 10:56 Oxycodone HCl (Oxycodone) 5 mg PO Q4H PRN PRN Reason: Pain (moderate 4-6) Last Admin: 04/06/18 05:19 Dose: 5 mg Pantoprazole Sodium (Protonix Iv) 40 mg IVPUSH DAILY [facility] Last Admin: 03/28/18 08:34 Dose: 40 mg Pantoprazole Sodium (Protonix) 40 mg PO ACBREAKFAST [facility] Last Admin: 04/07/18 08:10 Dose: 40 mg Phenylephrine HCl (Isaías-Synephrine) Confirm Administered Dose 10 mg .ROUTE .STK- MED ONE Stop: 03/18/18 20:05 Potassium Chloride (Klor-Con M20) 40 meq PO ONETIME ONE Stop: 04/03/18 13:16 Last Admin: 04/03/18 14:33 Dose: 40 meq Potassium Chloride (Klor-Con M20) 40 meq PO ONETIME ONE Stop: 04/03/18 17:01 Last Admin: 04/03/18 20:55 Dose: 40 meq Potassium Chloride (Klor-Con M20) 40 meq PO ONETIME ONE Stop: 04/04/18 09:01 Last Admin: 04/04/18 09:34 Dose: 40 meq Potassium Chloride (Klor-Con M20) 40 meq PO ONETIME ONE Stop: 04/04/18 17:01 Last Admin: 04/04/18 17:08 Dose: 40 meq Potassium Chloride (Klor-Con M20) 40 meq PO ONETIME ONE Stop: 04/05/18 09:01 Last Admin: 04/05/18 10:14 Dose: 40 meq Potassium Chloride (Klor-Con M20) 40 meq PO ONETIME ONE Stop: 04/05/18 17:01 Last Admin: 04/05/18 18:00 Dose: 40 meq Potassium Chloride (Klor-Con M20) 40 meq PO ONETIME ONE Stop: 04/13/18 08:31 Last Admin: 04/13/18 08:42 Dose: 40 meq Potassium Chloride (Klor-Con M20) 40 meq PO ONETIME ONE Stop: 04/13/18 13:01 Last Admin: 04/13/18 12:44 Dose: 40 meq Potassium Chloride (Klor-Con M20) 40 meq PO ONETIME ONE Stop: 04/13/18 17:01 Last Admin: 04/13/18 16:57 Dose: 40 meq Potassium Chloride (Klor-Con M20) 40 meq PO ONETIME ONE Stop: 04/15/18 14:31 Last Admin: 04/15/18 15:16 Dose: 40 meq Prednisone (Prednisone) 20 mg PO WITHBREAKFAST [facility] Last Admin: 03/30/18 08:59 Dose: 20 mg Propofol (Diprivan 20 Ml) Confirm Administered Dose 200 mg .ROUTE .STK-MED ONE Stop: 03/18/18 19:48 Propofol (Diprivan 20 Ml) Confirm Administered Dose 200 mg .ROUTE .STK-MED ONE Stop: 04/02/18 12:59 Propofol (Diprivan 20 Ml) Confirm Administered Dose 200 mg .ROUTE .STK-MED ONE Stop: 04/07/18 10:56 Rocuronium [place] (Zemuron) Confirm Administered Dose 50 mg .ROUTE .STK-MED ONE Stop: 03/18/18 19:48 Rocuronium [place] (Zemuron) Confirm Administered Dose 50 mg .ROUTE .STK-MED ONE Stop: 04/07/18 10:56 Succinylcholine Chloride (Quelicin) Confirm Administered Dose 200 mg .ROUTE .STK -MED ONE Stop: 03/18/18 19:48 Vancomycin HCl (Vancomycin) 1 gm IV .PHARMACY TO DOSE [facility] Stop: 03/21/18 16:00 Vancomycin HCl (Vancomycin) 1 gm IV .PHARMACY TO DOSE [facility] Stop: 04/16/18 14:00 - Exam Quality Assessment: Supplemental Oxygen General: Alert, Oriented, Cooperative, No Acute Distress Lungs: Normal Respiratory Effort Cardiovascular: Regular Rate, Regular Rhythm GI/Abdominal Exam: Soft, Non-Tender (generalized, most tender suprapubic ), No Distention, Other (dark brown fluid in colostomy ) Extremities: Pedal Edema (trace pedal edema bilaterally ) Psy/Mental Status: Alert, Normal Affect - Problem List Review Problem List Initiated/Reviewed/Updated: Yes - Plan Plan:: ASSESSMENT AND PLAN WOUND DEHISCENCE WITH UNDERLYING ABSCESS - status post exploratory laparotomy . Seems to be slowly improving on a daily basis, more alert and interactive, improved energy, oral intake seems to be very slowly improving with less output into the gastrostomy bag and increased output through the colostomy. He did have increased abdominal pain this morning and a CT scan showed a small fluid collection in the anterior abdomen but no definitive abscess. -Ciprofloxacin 400 mg IV every 12 hours -Zyvox IV -Remove central line when able after PICC line placement -Surgical follow-up per surgery team SIGMOID COLON PERFORATION RESULTING IN ACUTE ABDOMEN AND SEPTIC SHOCK - postop course complicated by wound dehiscence as above. He is receiving nutritional support via TPN. Persistent difficulty with ileus. -Continue TPN initiated but still requiring a small amount of supplemental oxygen. -Post operative per surgical team -Pain control -Saline lock IV SEPTIC SHOCK - resolved ACUTE HYPOXIC RESPIRATORY FAILURE - respiratory status stable with diuresis But still requiring a small amount of supplemental oxygen. Volume status seems appropriate today. -Coughing, deep breathing and suctioning as able -Furosemide IV, assess need daily OSTEOMYELITIS RIGHT FIRST TOE - pain and swelling improved again today, attempt at obtaining MRI was unsuccessful because of movement. Arterial Doppler study showed evidence of significant peripheral arterial disease in the right leg. -Outpatient follow-up with interventional radiology in [place] after he has healed from recent surgeries -Antibiotic therapy as above COPD - [id number] smoking history but no evidence for exacerbation at this time. -Nebulized albuterol as needed -Vigorous pulmonary toilet during the postoperative period HISTORY OF LUNG AND PROSTATE CARCINOMA - lung cancer felt to be stable, had been receiving treatment for management of prostate carcinoma prior to admission MAINTENANCE ISSUES -DVT prophylaxis; SCUDs -GI prophylaxis; Protonix 40 mg daily -Sorto catheter; has been successfully removed -Nutrition; full liquids DISPOSITION - anticipate discharge to intermediate after the hospital stay. Stephon Christy M.D.
[2018-04-19] MEDS: Lactobacillus Rhamnosus GG (Probiotic) Cap PO SCH ×2 (11:44→20:57)
[2018-04-19] MEDS: Ciprofloxacin in D5W 400 MG in Premix Bag 1 BAG IV SCH ×2 (11:44)
[2018-04-19] MEDS: traMADol 50 MG Tab PO PRN ×2 (13:17→19:25)
[2018-04-19] MEDS: diphenhydrAMINE 50 MG/ML SDV IVPUSH PRN ×2 (13:18→20:27)
[2018-04-19] MEDS ORDERED: Ondansetron 4 MG/2 ML SDV IVPUSH PRN (18:12)
[2018-04-19] MEDS: HYDROmorphone 0.5 MG/0.5 ML Syringe IVPUSH PRN (20:53)
[2018-04-20] MEDS: Linezolid 600 MG in Premix Bag 1 BAG IV SCH ×3 (01:09→23:27)
[2018-04-20] MEDS: diphenhydrAMINE 50 MG/ML SDV IVPUSH PRN (02:40)
[2018-04-20] MEDS: HYDROmorphone 0.5 MG/0.5 ML Syringe IVPUSH PRN (02:44)
[2018-04-20] MEDS: Acetaminophen Soln 650 MG/20.3 ML UD Cup GTUBE SCH ×4 (02:46→20:08)
[2018-04-20] MEDS: 1: AA 5%/Calcium/D15W/Lytes 1,000 ML with MVI, Adult with Vitamin K 10 ML, Chromium/Copp IV SCH ×6 (05:39→17:56)
[2018-04-20] MEDS: Pantoprazole 40 MG Vial IV SCH (05:40)
[2018-04-20] MEDS ORDERED: Central Total Parenteral Nutrition Bag SCH (07:00)
[2018-04-20] MEDS: Albuterol/Ipratropium 3.0-0.5 MG/3 ML Neb Soln NEB SCH ×4 (07:20→22:00)
--- NOTE | 2018-04-20 08:18 | PN ---
DATE OF SERVICE: 04/20/2018 SUBJECTIVE: Kodak was given Dilaudid 0.5 mg for pain. Left mid quadrant between the gastrostomy tube and colostomy, it is tender to touch. The CT scan did show a small amount of free fluid within the anterior abdomen, which is more in the left lower quadrant. He was given Dilaudid IV 0.5 mg and slept quietly during the night. Vital signs have been stable. Temperature max 99.1. He required 1 L of O2 to maintain his saturations at 92% to 93% percent. Oral intake is down at 460. Ostomy output was 400 of loose stool. Urine output 1175. Gastrostomy tube 700 mL. REVIEW OF SYSTEMS: Remainder of review of systems negative for any pertinent positives and negatives. OBJECTIVE: GENERAL: Kodak is alert and orientated, quite talkative. VITAL SIGNS: TPR from 02:39 was 98.9, 78, 20, blood pressure 127/60, O2 is 93% at 1 L of O2. HEENT: Negative. NECK: Negative. HEART: Regular rate and rhythm. LUNGS: Reveal decreased breath sounds in bases. No change. ABDOMEN: Tenderness is noted as stated between the gastrostomy tube and ostomy. Wound VAC is on. Incision looks like it is healing well. EXTREMITIES: Without peripheral edema. ASSESSMENT: 1. New abdominal pain. 2. Allergic reaction to vancomycin. 3. Osteomyelitis of right great toe with diffuse atherosclerotic disease, suspected hemodynamically significant disease in the mid superficial femoral artery with monophasic flow. 4. Insertion of left subclavian triple lumen, exploratory laparotomy, drainage of intraabdominal abscess, small bowel resection small bowel stricture plasty, placement of Vicryl mesh for closure of fascial dehiscence, and evisceration of the intraabdominal abscess and focal small-bowel stricture, focal areas of small-bowel deserosalization, insertion of subclavian triple-lumen. Date of surgery 04/07/2018. Surgeon, Fredi Linn MD. 5. Percutaneous endoscopy, gastrostomy tube placement for malnutrition with inadequate oral intake. Date of procedure 04/02/2018. Surgeon, Fredi Linn MD. 6. Exploratory laparotomy, peritoneal lavage, sigmoid colon resection, left colostomy, Cristina's pouch for acute abdomen and perforated viscus and sepsis. Date of surgery 03/18/2018. Surgeon, Espinoza Adams MD. 7. Malnutrition requiring TPN therapy. PLAN: 1. [place] catheter will be placed with IV and local sedation. This will depend on radiology consult in regard to reviewing the CT scan to see where this possible abscess may be in the abdomen. 2. Gastrostomy tube to drainage. Communication order written. 3. Type and cross 2 units packed red blood cells. Check in a.m. 0400. Check CBC, CMP, mag, phos, BNP 0400 in a.m. Continue same TPN rate and content. 4. Roxanol (morphine) 10 mg/0.5 mils oral syringe 5 mg every 4 hours p.r.n. pain 1-5 and 10 mg p.o. q.4 hours for pain 6-10. Continue to work on pulmonary status, remain n.p.o. till after Radiology consult. 5. We will evaluate p.r.n. or in a.m. Rula Morley PA-C /[id number]
[2018-04-20] MEDS: Erythromycin Ethylsuccinate Susp 200 MG/5 ML 100 ML Bottle PO SCH ×3 (08:41→20:18)
[2018-04-20] MEDS: Lactobacillus Rhamnosus GG (Probiotic) Cap PO SCH ×2 (08:42→20:08)
[2018-04-20] MEDS: Morphine 10 MG/0.5 ML Oral Syringe PO PRN ×2 (08:53→19:59)
[2018-04-20] MEDS: Ciprofloxacin in D5W 400 MG in Premix Bag 1 BAG IV SCH ×6 (11:50→22:30)
[2018-04-20] MEDS ORDERED: Furosemide 20 MG/2 ML VIAL IVPUSH ONE (12:54)
--- NOTE | 2018-04-20 12:56 | PCM.PN ---
- General Info Date of Service: 04/20/18 Subjective Update: There were no acute events overnight. The patient did have some increase in his abdominal pain but this has been well controlled with the addition of hydromorphone. He still complains of mild to moderate lower abdominal and left lower quadrant abdominal pain. He has not had anything to eat today. 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 No significant nausea. No significant shortness of breath. No fevers. White count is better today. Functional Status: Reports: Pain Controlled - Review of Systems General: Denies: Fever Gastrointestinal: Reports: Abdominal Pain - Patient Data Vitals - Most Recent: Last Vital Signs Temp 37.0 C 04/20/18 11:15 Pulse 96 04/20/18 11:15 Resp 18 04/20/18 11:15 BP 123/58 L 04/20/18 11:15 Pulse Ox 96 04/20/18 11:15 Weight - Most Recent: 69.037 kg I&O - Last 24 Hours: Intake & Output 04/19/18 04/20/18 04/20/18 22:59 06:59 14:59 Intake Total 1168 1655 200 Output Total 100 1100 125 Balance 1068 555 75 Lab Results Last 24 Hours: Laboratory Results - last 24 hr 04/20/18 04/20/18 Range/Units 04:10 04:10 WBC 11.8 H (4.5-11.0) K/uL RBC 2.85 L (4.30-5.90) M/uL Hgb 8.1 L (12.0-15.0) g/dL Hct 27.0 L (40.0-54.0) % MCV 95 (80-98) fL MCH 28 (27-31) pg MCHC 30 L (32-36) % Plt Count 431 H (150-400) K/uL Sodium 145 (140-148) mmol/L Potassium 3.8 (3.6-5.2) mmol/L Chloride 108 (100-108) mmol/L Carbon Dioxide 29 (21-32) mmol/L Anion Gap 7.6 (5.0-14.0) mmol/L BUN 33 H (7-18) mg/dL Creatinine 0.9 (0.8-1.3) mg/dL Est Cr Clr Drug Dosing 66.14 mL/min Estimated GFR (MDRD) > 60 (>60) Glucose 113 H (74-106) mg/dL Calcium 7.9 L (8.5-10.1) mg/dL Phosphorus 3.7 (2.5-4.9) mg/dL Magnesium 1.8 (1.8-2.4) mg/dL Total Bilirubin 0.3 (0.2-1.0) mg/dL AST 26 (15-37) U/L ALT 49 (12-78) U/L Alkaline Phosphatase 123 H (46-116) U/L NT-Pro-B Natriuret Pep 300 (5-450) pg/mL Total Protein 5.3 L (6.4-8.2) g/dL Albumin 2.2 L (3.4-5.0) g/dL Globulin 3.1 (2.3-3.5) g/dL Albumin/Globulin Ratio 0.7 L (1.2-2.2) Med Orders - Current: Current Medications Acetaminophen (Tylenol) 1,000 mg GTUBE Q6H [facility] Last Admin: 04/20/18 08:41 Dose: 1,000 mg Albuterol (Proventil Neb Soln) 2.5 mg NEB Q4H PRN PRN Reason: Dyspnea Last Admin: 04/17/18 05:03 Dose: 2.5 mg Albuterol/Ipratropium (Duoneb 3.0-0.5 Mg/3 Ml) 3 ml NEB QIDRT [facility] Last Admin: 04/20/18 10:49 Dose: 3 ml Calcium Carbonate/Glycine (Tums) 1,000 mg PO Q2H PRN PRN Reason: Indigestion Last Admin: 04/15/18 20:27 Dose: 1,000 mg Dimethicone/Zinc Oxide (Rash Relief-Zinc Oxide [place]) 0 gm TOP ASDIRECTED PRN PRN Reason: Rash Last Admin: 03/28/18 16:55 Dose: 1 spray Diphenhydramine HCl (Benadryl) 25 mg IVPUSH Q6H PRN PRN Reason: Itching Last Admin: 04/20/18 02:40 Dose: 25 mg Erythromycin Ethylsuccinate (Eryped 200) 250 mg PO TID@0800,1400,2000 [facility] Last Admin: 04/20/18 08:41 Dose: 250 mg Heparin Sodium (Porcine) (Heparin Lock Flush 100 Units/Ml) 500 units FLUSH ASDIRECTED PRN PRN Reason: IV Use Last Admin: 04/20/18 04:13 Dose: 500 units Hydromorphone HCl (Dilaudid) 0.5 mg IVPUSH Q2H PRN PRN Reason: Pain Last Admin: 04/20/18 02:44 Dose: 0.5 mg Hydroxyzine HCl (Vistaril) 50 mg IM Q6H PRN PRN Reason: Pain Last Admin: 04/19/18 15:43 Dose: 50 mg Multivitamins/Minerals 10 ml/Chromium/Copper/Manganese/Seleni/Zn 1 ml/ Amino Ac/ Electrol/Dextrose/Calcium 1,011 mls @ 82 mls/hr IV .BY DURATION [facility] Last Admin: 04/19/18 16:48 Dose: 82 mls/hr Amino Ac/Electrol/Dextrose/Calcium (Clinimix E 5/15) 1,000 mls @ 82 mls/hr IV .BY DURATION [facility] Last Admin: 04/20/18 05:39 Dose: 82 mls/hr Ciprofloxacin/Dextrose 400 mg/ (Premix) 200 mls @ 200 mls/hr IV Q12H [facility] Last Admin: 04/20/18 11:50 Dose: 200 mls/hr Linezolid 600 mg/ Premix 300 mls @ 300 mls/hr IV Q12H [facility] Last Admin: 04/20/18 01:09 Dose: 300 mls/hr Lactobacillus Rhamnosus (Culturelle) 1 cap PO BID [facility] Last Admin: 04/20/18 08:42 Dose: 1 cap Lorazepam (Ativan) 0.5 mg IVPUSH Q4H PRN PRN Reason: Nausea Morphine Sulfate (Morphine 10 Mg/0.5 Ml Oral Syringe) 5 mg PO Q4HWA PRN PRN Reason: Pain Last Admin: 04/20/18 08:53 Dose: 5 mg Ondansetron HCl (Zofran) 4 mg IVPUSH Q6H PRN PRN Reason: Nausea/Vomiting Pantoprazole Sodium (Protonix Iv) 40 mg IV Q24H [facility] Last Admin: 04/20/18 05:40 Dose: 40 mg Tramadol HCl (Ultram) 25 - 50 mg PO Q6H PRN PRN Reason: Pain Last Admin: 04/19/18 19:25 Dose: 50 mg Discontinued Medications Acetaminophen (Tylenol) 650 mg RECTAL Q4H PRN PRN Reason: Fever Acetaminophen (Tylenol) 650 mg PO Q4H PRN PRN Reason: Pain/Fever Last Admin: 04/05/18 20:14 Dose: 650 mg Acetaminophen (Tylenol) 1,000 mg GTUBE Q6H [facility] Last Admin: 04/17/18 14:02 Dose: 1,000 mg Albuterol/Ipratropium (Duoneb 3.0-0.5 Mg/3 Ml) 3 ml NEB Q4H PRN PRN Reason: Dyspnea Albuterol/Ipratropium (Duoneb 3.0-0.5 Mg/3 Ml) 3 ml NEB ONETIME ONE Stop: 04/07/18 10:31 Last Admin: 04/07/18 10:26 Dose: Not Given Bupivacaine HCl (Marcaine 0.5%) Confirm Administered Dose 50 ml .ROUTE .STK-MED ONE Stop: 04/07/18 12:06 Bupivacaine HCl (Marcaine 0.5%) Confirm Administered Dose 50 ml .ROUTE .STK-MED ONE Stop: 04/19/18 07:31 Ropivacaine 34 ml/Dexamethasone 8 mg/Epinephrine HCl 0.4 mg/ Sodium Chloride 43.6 ml 0 ml NERVRT ASDIRECTED [facility] Last Admin: 04/07/18 16:01 Dose: 80 syringe Dexamethasone (Dexamethasone) Confirm Administered Dose 4 mg .ROUTE .STK-MED ONE Stop: 03/18/18 19:48 Dexamethasone (Dexamethasone) Confirm Administered Dose 4 mg .ROUTE .STK-MED ONE Stop: 04/07/18 10:56 Epinephrine HCl (Adrenalin) Confirm Administered Dose 1 mg .ROUTE .STK-MED ONE Stop: 03/18/18 21:07 Erythromycin (Jh-Tab) 250 mg PO TID@0730,1630,2130 [facility] Last Admin: 04/17/18 10:03 Dose: 250 mg Erythromycin (Jh-Tab) 250 mg PO TID@0800,1400,2000 [facility] Stop: 04/18/18 08:01 Last Admin: 04/18/18 08:16 Dose: 250 mg Erythromycin Ethylsuccinate (Eryped 400) 125 mg PO Q6H [facility] Last Admin: 04/07/18 15:14 Dose: Not Given Fentanyl (Sublimaze) Confirm Administered Dose 250 mcg .ROUTE .STK-MED ONE Stop: 03/18/18 19:48 Fentanyl (Sublimaze) Confirm Administered Dose 250 mcg .ROUTE .STK-MED ONE Stop: 04/02/18 12:59 Fentanyl (Sublimaze) Confirm Administered Dose 250 mcg .ROUTE .STK-MED ONE Stop: 04/07/18 10:56 Furosemide (Lasix) 20 mg IVPUSH ONETIME ONE Stop: 03/23/18 09:46 Last Admin: 03/23/18 10:18 Dose: 20 mg Furosemide (Lasix) 20 mg IVPUSH NOW ONE Stop: 03/25/18 10:01 Last Admin: 03/25/18 10:17 Dose: 20 mg Furosemide (Lasix) 20 mg IVPUSH ONETIME ONE Stop: 03/26/18 09:16 Last Admin: 03/26/18 09:10 Dose: 20 mg Furosemide (Lasix) 20 mg IVPUSH ONETIME ONE Stop: 03/26/18 16:01 Last Admin: 03/26/18 18:28 Dose: Not Given Furosemide (Lasix) 20 mg IVPUSH NOW ONE Stop: 03/27/18 10:01 Last Admin: 03/27/18 10:26 Dose: 20 mg Furosemide (Lasix) 20 mg IVPUSH ONETIME ONE Stop: 03/30/18 13:11 Last Admin: 03/30/18 13:36 Dose: 20 mg Furosemide (Lasix) 20 mg IVPUSH NOW ONE Stop: 03/31/18 11:55 Last Admin: 03/31/18 13:04 Dose: 20 mg Furosemide (Lasix) 20 mg IVPUSH NOW ONE Stop: 04/01/18 12:05 Last Admin: 04/01/18 12:43 Dose: 20 mg Furosemide (Lasix) 20 mg IVPUSH NOW ONE Stop: 04/02/18 15:46 Last Admin: 04/02/18 15:53 Dose: 20 mg Furosemide (Lasix) 40 mg IVPUSH NOW ONE Stop: 04/03/18 09:01 Last Admin: 04/03/18 09:45 Dose: 40 mg Furosemide (Lasix) 40 mg IVPUSH NOW ONE Stop: 04/04/18 15:31 Last Admin: 04/04/18 15:55 Dose: 40 mg Furosemide (Lasix) 40 mg IVPUSH NOW ONE Stop: 04/05/18 09:01 Last Admin: 04/05/18 10:15 Dose: 40 mg Furosemide (Lasix) 40 mg IVPUSH ONETIME ONE Stop: 04/08/18 12:01 Last Admin: 04/08/18 11:01 Dose: 40 mg Furosemide (Lasix) 40 mg IVPUSH ONETIME STA Stop: 04/09/18 06:48 Last Admin: 04/09/18 10:16 Dose: Not Given Furosemide (Lasix) 20 mg IVPUSH ONETIME ONE Stop: 04/09/18 12:01 Last Admin: 04/09/18 13:43 Dose: Not Given Furosemide (Lasix) 40 mg IVPUSH ONETIME STA Stop: 04/09/18 10:08 Last Admin: 04/09/18 10:09 Dose: 40 mg Furosemide (Lasix) Confirm Administered Dose 40 mg .ROUTE .STK-MED ONE Stop: 04/09/18 10:08 Last Admin: 04/09/18 10:16 Dose: 40 mg Furosemide (Lasix) 40 mg IVPUSH ONETIME ONE Stop: 04/09/18 16:01 Last Admin: 04/09/18 15:54 Dose: 40 mg Furosemide (Lasix) 40 mg IVPUSH ONETIME ONE Stop: 04/10/18 12:01 Last Admin: 04/10/18 14:03 Dose: 40 mg Furosemide (Lasix) 20 mg IVPUSH ONETIME ONE Stop: 04/10/18 20:01 Last Admin: 04/10/18 21:10 Dose: 20 mg Furosemide (Lasix) 40 mg IVPUSH NOW ONE Stop: 04/11/18 11:31 Last Admin: 04/11/18 12:58 Dose: 40 mg Furosemide (Lasix) 40 mg IVPUSH NOW ONE Stop: 04/12/18 11:21 Last Admin: 04/12/18 13:28 Dose: 40 mg Furosemide (Lasix) Confirm Administered Dose 40 mg .ROUTE .STK-MED ONE Stop: 04/12/18 13:27 Last Admin: 04/12/18 13:52 Dose: Not Given Furosemide (Lasix) 40 mg IVPUSH NOW ONE Stop: 04/13/18 08:31 Last Admin: 04/13/18 08:42 Dose: 40 mg Furosemide (Lasix) 40 mg IVPUSH NOW ONE Stop: 04/14/18 10:01 Last Admin: 04/14/18 10:09 Dose: 40 mg Furosemide (Lasix) 20 mg IV ONETIME ONE Stop: 04/17/18 12:31 Last Admin: 04/17/18 12:22 Dose: 20 mg Glycopyrrolate (Robinul) Confirm Administered Dose 1 mg .ROUTE .STK-MED ONE Stop: 03/18/18 19:48 Glycopyrrolate (Robinul) Confirm Administered Dose 1 mg .ROUTE .STK-MED ONE Stop: 04/07/18 10:56 Heparin Sodium (Porcine) (Heparin Sodium) Confirm Administered Dose 5,000 units .ROUTE .STK-MED ONE Stop: 03/18/18 19:51 Heparin Sodium (Porcine) (Heparin Lock Flush 100 Units/Ml) Confirm Administered Dose 500 units .ROUTE .STK-MED ONE Stop: 03/22/18 12:17 Last Admin: 03/22/18 12:30 Dose: Not Given Heparin Sodium (Porcine) (Heparin Sodium) Confirm Administered Dose 5,000 units .ROUTE .STK-MED ONE Stop: 03/24/18 19:52 Last Admin: 03/24/18 20:33 Dose: 5,000 units Heparin Sodium (Porcine) (Heparin Lock Flush 100 Units/Ml) Confirm Administered Dose 1,000 units .ROUTE .STK-MED ONE Stop: 04/07/18 12:06 Last Admin: 04/07/18 14:30 Dose: 500 units Heparin Sodium (Porcine) (Heparin Lock Flush 100 Units/Ml) Confirm Administered Dose 1,500 units .ROUTE .STK-MED ONE Stop: 04/19/18 07:31 Hydrocortisone Sodium Succinate (Solu-Cortef) 100 mg IVPUSH Q12H [facility] Last Admin: 03/28/18 20:15 Dose: 100 mg Hydrocortisone Sodium Succinate (Solu-Cortef) 100 mg IVPUSH DAILY [facility] Last Admin: 03/30/18 13:39 Dose: Not Given Hydromorphone HCl (Dilaudid) 0.5 mg IVPUSH ONETIME ONE Stop: 03/18/18 17:43 Last Admin: 03/18/18 17:47 Dose: 0.5 mg Hydromorphone HCl (Dilaudid) 1 mg IVPUSH ONETIME ONE Stop: 03/18/18 18:18 Last Admin: 03/18/18 18:27 Dose: 1 mg Hydromorphone HCl (Dilaudid) 0.5 mg IVPUSH ONETIME ONE Stop: 04/16/18 09:58 Last Admin: 04/16/18 10:31 Dose: 0.5 mg Hydroxyzine HCl (Vistaril) 100 mg IM Q6H PRN PRN Reason: Pain Last Admin: 04/11/18 08:49 Dose: 100 mg Sodium Chloride (Normal Saline) 1,000 mls @ 1,000 mls/hr IV ASDIRECTED [facility] Last Admin: 03/18/18 17:47 Dose: 1,000 mls/hr Sodium Chloride (Normal Saline) 1,000 mls @ 999 mls/hr IV ASDIRECTED [facility] Last Admin: 03/18/18 19:31 Dose: 999 mls/hr Meropenem 500 mg/ Sodium (Chloride) 50 mls @ 100 mls/hr IV ONETIME ONE Stop: 03/18/18 19:09 Last Admin: 03/18/18 19:01 Dose: 100 mls/hr Sodium Chloride (Normal Saline) Confirm Administered Dose 50 mls @ as directed .ROUTE .STK-MED ONE Stop: 03/18/18 19:40 Last Admin: 03/18/18 20:19 Dose: Not Given Aztreonam 2 gm/ Sodium (Chloride) 50 mls @ 100 mls/hr IV ONETIME ONE Stop: 03/18/18 20:01 Last Admin: 03/18/18 20:44 Dose: 100 mls/hr Meropenem 500 mg/ Sodium (Chloride) 50 mls @ 100 mls/hr IV ONETIME ONE Stop: 03/18/18 20:00 Last Admin: 03/18/18 19:40 Dose: 100 mls/hr Sodium Chloride (Normal Saline) Confirm Administered Dose 250 mls @ as directed .ROUTE .STK-MED ONE Stop: 03/18/18 19:59 Lactated Ringer's (Ringers, Lactated) Confirm Administered Dose 1,000 mls @ as directed .ROUTE .STK-MED ONE Stop: 03/18/18 19:59 Sodium Chloride (Normal Saline) Confirm Administered Dose 500 mls @ as directed .ROUTE .STK-MED ONE Stop: 03/18/18 19:59 Norepinephrine Bitartrate 8 mg (/ Dextrose/Water) 258 mls @ 3.87 mls/hr IV TITRATE [facility]; Protocol Last Admin: 03/19/18 11:45 Dose: 12 mcg/min, 23.22 mls/hr Lactated Ringer's (Ringers, Lactated) Confirm Administered Dose 1,000 mls @ as directed .ROUTE .STK-MED ONE Stop: 03/18/18 21:42 Propofol (Diprivan 100 Ml) 100 mls @ 2.082 mls/hr IV TITRATE [facility]; Protocol Last Titration: 03/27/18 06:35 Dose: 10 mcg/kg/min, 4.164 mls/hr Aztreonam 1 gm/ Sodium (Chloride) 50 mls @ 100 mls/hr IV Q8H [facility] Last Admin: 03/19/18 05:29 Dose: 100 mls/hr Potassium Chloride/Dextrose/Sod Cl (D5 1/2 Ns W/ 20 Meq/L Kcl) 1,000 mls @ 150 mls/hr IV ASDIRECTED [facility] Last Admin: 03/18/18 23:11 Dose: 150 mls/hr Meropenem 1 gm/ Sodium (Chloride) 50 mls @ 100 mls/hr IV Q12H [facility] Stop: 03/29/18 22:00 Last Admin: 03/29/18 20:10 Dose: 100 mls/hr Lactated Ringer's (Ringers, Lactated) 1,000 mls @ 500 mls/hr IV ASDIRECTED [facility] Last Admin: 03/19/18 01:23 Dose: 500 mls/hr Vasopressin 100 units/ (Dextrose/Water) 255 mls @ 1.53 mls/hr IV TITRATE [facility]; Protocol Stop: 03/21/18 13:00 Last Titration: 03/21/18 11:03 Dose: 0.02 units/min, 3.06 mls/hr Lactated Ringer's (Ringers, Lactated) 1,000 mls @ 500 mls/hr IV BOLUS [facility] Stop: 03/19/18 05:29 Last Admin: 03/19/18 04:02 Dose: 500 mls/hr Aztreonam/Dextrose 1 gm/ (Premix) 50 mls @ 100 mls/hr IV Q8H [facility] Last Admin: 03/28/18 05:26 Dose: 100 mls/hr Lactated Ringer's (Ringers, Lactated) 1,000 mls @ 500 mls/hr IV .BOLUS ONE Stop: 03/19/18 14:59 Last Admin: 03/19/18 14:27 Dose: 500 mls/hr Lactated Ringer's (Ringers, Lactated) 1,000 mls @ 150 mls/hr IV ASDIRECTED [facility] Last Admin: 03/21/18 11:53 Dose: 150 mls/hr Norepinephrine Bitartrate 8 mg (/ Dextrose/Water) 250 mls @ 3.75 mls/hr IV TITRATE [facility]; Protocol Last Titration: 03/27/18 09:04 Dose: 4 mcg/min, 7.5 mls/hr Magnesium Sulfate 2 gm/ Premix 50 mls @ 25 mls/hr IV Q6H [facility] Stop: 03/20/18 17:59 Last Admin: 03/20/18 16:30 Dose: 25 mls/hr Vancomycin HCl 1.25 gm/ Sodium (Chloride) 250 mls @ 170 mls/hr IV Q24H [facility] Last Admin: 03/22/18 10:06 Dose: 170 mls/hr Vasopressin 40 units/ Dextrose (/Water) 100 mls @ 3 mls/hr IV TITRATE [facility]; Protocol Last Titration: 03/23/18 01:00 Dose: 0 units/min, 0 mls/hr Potassium Chloride 20 meq/ (Premix) 100 mls @ 50 mls/hr IV Q2H [facility] Stop: 03/21/18 22:59 Last Admin: 03/21/18 22:20 Dose: 50 mls/hr Potassium Chloride 20 meq/ (Premix) 100 mls @ 50 mls/hr IV Q2H [facility] Stop: 03/22/18 12:59 Last Admin: 03/22/18 11:30 Dose: 50 mls/hr Potassium Chloride 20 meq/ (Premix) 100 mls @ 50 mls/hr IV Q2H [facility] Stop: 03/22/18 17:29 Last Admin: 03/22/18 16:13 Dose: 50 mls/hr Potassium Chloride (Kcl 20 Meq In Water 100 Ml) 100 mls @ 50 mls/hr IV Q2H [facility] Stop: 03/23/18 01:59 Last Admin: 03/23/18 00:53 Dose: 50 mls/hr Potassium Chloride 40 meq/ (Premix) 100 mls @ 25 mls/hr IV ONETIME ONE Stop: 03/23/18 14:29 Last Admin: 03/23/18 10:31 Dose: 25 mls/hr Vancomycin HCl 1.4 gm/ Sodium (Chloride) 250 mls @ 170 mls/hr IV Q24H [facility] Last Admin: 03/24/18 11:13 Dose: 170 mls/hr Multivitamins/Minerals 10 ml/Chromium/Copper/Manganese/Seleni/Zn 1 ml/ Amino Ac/ Electrol/Dextrose/Calcium 1,011 mls @ 75 mls/hr IV .BY DURATION [facility] Last Admin: 03/25/18 22:34 Dose: 75 mls/hr Amino Ac/Electrol/Dextrose/Calcium (Clinimix E 5/15) 1,000 mls @ 75 mls/hr IV .BY DURATION [facility] Last Admin: 03/25/18 08:11 Dose: 75 mls/hr Vasopressin 100 units/ (Dextrose/Water) 255 mls @ 1.53 mls/hr IV TITRATE [facility]; Protocol Last Titration: 03/25/18 11:51 Dose: 0 units/min, 0 mls/hr Potassium Chloride 20 meq/ (Premix) 100 mls @ 50 mls/hr IV Q2H [facility] Stop: 03/24/18 13:59 Last Admin: 03/24/18 12:13 Dose: 50 mls/hr Multivitamins/Minerals 10 ml/Chromium/Copper/Manganese/Seleni/Zn 1 ml/ Amino Ac/ Electrol/Dextrose/Calcium 1,011 mls @ 75 mls/hr IV .BY DURATION [facility] Last Admin: 03/29/18 06:48 Dose: 75 mls/hr Amino Ac/Electrol/Dextrose/Calcium (Clinimix E 5/15) 1,000 mls @ 75 mls/hr IV .BY DURATION [facility] Last Admin: 03/29/18 20:12 Dose: 75 mls/hr Heparin Sodium (Porcine) 5,000 (units/ Sodium Chloride) 501 mls @ 5 mls/hr IV ASDIRECTED [facility] Last Admin: 03/27/18 12:50 Dose: 5 mls/hr Sodium Chloride (Normal Saline) 1,000 mls @ 50 mls/hr IV ASDIRECTED [facility] Last Admin: 03/30/18 13:36 Dose: 50 mls/hr Dextrose/Sodium Chloride (Dextrose 5%-1/2 Ns) 1,000 mls @ 75 mls/hr IV ASDIRECTED [facility] Last Admin: 03/31/18 23:53 Dose: 75 mls/hr Albumin Human (Albumin 25%) 25 gm in 100 mls @ 25 mls/hr IV Q24H [facility] Stop: 04/02/18 12:59 Last Admin: 04/01/18 08:13 Dose: 25 mls/hr Potassium Phosphate 20 mmole/ (Sodium Chloride) 256.6667 mls @ 85 mls/hr IV Q3H [facility] Stop: 04/01/18 18:59 Last Admin: 04/01/18 18:37 Dose: 85 mls/hr Dextrose/Sodium Chloride (Dextrose 5%-1/2 Ns) 1,000 mls @ 80 mls/hr IV ASDIRECTED [facility] Last Admin: 04/03/18 06:40 Dose: 80 mls/hr Cefazolin Sodium/Dextrose 2 gm (/ Premix) 50 mls @ 100 mls/hr IV ONCALL ONE Stop: 04/02/18 11:59 Last Admin: 04/02/18 13:59 Dose: 100 mls/hr Potassium Acetate 20 meq/ (Sodium Chloride) 110 mls @ 55 mls/hr IV Q2H [facility] Stop: 04/02/18 11:59 Last Admin: 04/02/18 10:10 Dose: 55 mls/hr Magnesium Sulfate 2 gm/ Premix 50 mls @ 25 mls/hr IV Q6H [facility] Stop: 04/05/18 07:59 Last Admin: 04/03/18 12:11 Dose: 25 mls/hr Albumin Human (Albumin 25%) 25 gm in 100 mls @ 25 mls/hr IV ONETIME ONE Stop: 04/02/18 17:59 Last Admin: 04/02/18 15:30 Dose: 25 mls/hr Potassium Chloride 20 meq/Lidocaine HCl 2 ml/ Sodium Chloride 112 mls @ 56 mls/ hr IV Q2H [facility] Stop: 04/03/18 17:59 Last Admin: 04/03/18 17:04 Dose: 56 mls/hr Magnesium Sulfate 2 gm/ Premix 50 mls @ 25 mls/hr IV Q6H [facility] Stop: 04/08/18 03:59 Last Admin: 04/07/18 15:14 Dose: Not Given Potassium Phosphate 15 mmole/ (Sodium Chloride) 255 mls @ 128 mls/hr IV Q2H [facility] Stop: 04/06/18 13:59 Last Admin: 04/06/18 12:49 Dose: 128 mls/hr Dextrose/Lactated Ringer's (Dextrose 5%-Lactated Ringers) 1,000 mls @ 100 mls/ hr IV ASDIRECTED [facility] Last Admin: 04/07/18 08:44 Dose: 100 mls/hr Meropenem 500 mg/ Sodium (Chloride) 50 mls @ 100 mls/hr IV ONCALL ONE Stop: 04/07/18 11:59 Last Admin: 04/07/18 15:13 Dose: Not Given Linezolid (Zyvox) Confirm Administered Dose 300 mls @ as directed .ROUTE .STK- MED ONE Stop: 04/07/18 15:26 Lactated Ringer's (Ringers, Lactated) Confirm Administered Dose 1,000 mls @ as directed .ROUTE .STK-MED ONE Stop: 04/07/18 15:35 Linezolid 600 mg/ Premix 300 mls @ 300 mls/hr IV ONETIME ONE Stop: 04/07/18 17:29 Last Admin: 04/07/18 16:25 Dose: 300 mls/hr Dextrose/Lactated Ringer's (Dextrose 5%-Lactated Ringers) 1,000 mls @ 175 mls/ hr IV ASDIRECTED [facility] Last Admin: 04/08/18 06:21 Dose: 175 mls/hr Linezolid 600 mg/ Premix 300 mls @ 300 mls/hr IV Q12H [facility] Last Admin: 04/10/18 03:46 Dose: 300 mls/hr Meropenem 500 mg/ Sodium (Chloride) 50 mls @ 100 mls/hr IV Q8H [facility] Last Admin: 04/11/18 06:23 Dose: 100 mls/hr Magnesium Sulfate 2 gm/ Premix 50 mls @ 25 mls/hr IV Q6H [facility] Stop: 04/09/18 13:59 Last Admin: 04/09/18 11:40 Dose: 25 mls/hr Dextrose/Lactated Ringer's (Dextrose 5%-Lactated Ringers) 1,000 mls @ 100 drops /hr IV ASDIRECTED [facility] Last Admin: 04/09/18 11:39 Dose: 100 drops/hr Albumin Human (Albumin 25%) 25 gm in 100 mls @ 25 mls/hr IV Q24H [facility] Stop: 04/12/18 13:59 Last Admin: 04/12/18 09:28 Dose: 25 mls/hr Albumin Human (Albumin 25%) 25 gm in 100 mls @ 25 mls/hr IV Q24H [facility] Stop: 04/12/18 17:59 Last Admin: 04/12/18 14:19 Dose: 25 mls/hr Dextrose/Lactated Ringer's (Dextrose 5%-Lactated Ringers) 1,000 mls @ 25 mls/ hr IV ASDIRECTED [facility] Sodium Chloride (Normal Saline) 1,000 mls @ 0 mls/hr IV ASDIRECTED [facility] Potassium Phosphate 22.5 mmole (/ Sodium Chloride) 257.5 mls @ 86 mls/hr IV Q3H [facility] Stop: 04/10/18 15:59 Last Admin: 04/10/18 14:47 Dose: 86 mls/hr Calcium Gluconate 1 gm/ Sodium (Chloride) 110 mls @ 100 mls/hr IV Q6H [facility] Stop: 04/10/18 18:05 Last Admin: 04/10/18 16:21 Dose: 100 mls/hr Doxycycline Hyclate 100 mg/ (Sodium Chloride) 100 mls @ 100 mls/hr IV Q12H [facility] Last Admin: 04/16/18 12:08 Dose: 100 mls/hr Acetaminophen 1,000 mg/ Premix 100 mls @ 400 mls/hr IV Q6H [facility] Stop: 04/12/18 06:44 Last Admin: 04/12/18 05:47 Dose: 400 mls/hr Potassium Chloride 20 meq/ (Premix) 100 mls @ 50 mls/hr IV Q2H [facility] Stop: 04/12/18 14:59 Last Admin: 04/12/18 13:29 Dose: 50 mls/hr Potassium Chloride 40 meq/ (Premix) 100 mls @ 25 mls/hr IV ONETIME ONE Stop: 04/12/18 12:19 Potassium Chloride 40 meq/ (Premix) 100 mls @ 25 mls/hr IV ONETIME ONE Stop: 04/12/18 20:59 Last Admin: 04/12/18 17:45 Dose: 25 mls/hr Potassium Phosphate 25 mmole/ (Sodium Chloride) 108.3333 mls @ 27 mls/hr IV Q4H [facility] Stop: 04/13/18 21:29 Last Admin: 04/13/18 18:13 Dose: 27 mls/hr Magnesium Sulfate 2 gm/ Premix 50 mls @ 25 mls/hr IV Q6H [facility] Stop: 04/17/18 04:59 Last Admin: 04/15/18 08:34 Dose: 25 mls/hr Vancomycin HCl 1.35 gm/ Sodium (Chloride) 250 mls @ 167 mls/hr IV ONETIME ONE Stop: 04/16/18 15:29 Last Admin: 04/16/18 15:04 Dose: 167 mls/hr Vancomycin HCl 1 gm/ Sodium (Chloride) 250 mls @ 167 mls/hr IV Q12H [facility] Last Admin: 04/17/18 02:21 Dose: 167 mls/hr Magnesium Sulfate 2 gm/ Premix 50 mls @ 25 mls/hr IV Q6H [facility] Stop: 04/21/18 02:59 Last Admin: 04/18/18 08:02 Dose: Not Given Magnesium Sulfate 2 gm/ Premix 50 mls @ 25 mls/hr IV Q6H [facility] Stop: 04/18/18 17:59 Last Admin: 04/18/18 16:28 Dose: 25 mls/hr Potassium Chloride 20 meq/ (Premix) 100 mls @ 50 mls/hr IV Q2H [facility] Stop: 04/19/18 08:59 Last Admin: 04/19/18 07:37 Dose: 50 mls/hr Sodium Chloride (Normal Saline) 71 mls @ 3.1 mls/sec IV ASDIRECTED [facility] Stop: 04/19/18 08:28 Last Admin: 04/19/18 09:15 Dose: 3.1 mls/sec Insulin Human Lispro (Humalog) 0 unit SUBCUT Q6H [facility]; Protocol Last Admin: 03/30/18 16:32 Dose: Not Given Insulin Human Lispro (Humalog) 0 unit SUBCUT Q6H [facility]; Protocol Last Admin: 03/31/18 03:52 Dose: Not Given Insulin Human Lispro (Humalog) 0 unit SUBCUT QIDACANDBED [facility]; Protocol Stop: 04/12/18 11:01 Last Admin: 03/31/18 13:17 Dose: Not Given Iopamidol (Isovue-300 (61%)) 100 ml IV . DIRECTED [facility] Stop: 04/19/18 08:28 Last Admin: 04/19/18 09:15 Dose: 100 ml Lidocaine/Epinephrine (Xylocaine 1% With Epinephrine 1:100,000) Confirm Administered Dose 50 ml .ROUTE .STK-MED ONE Stop: 04/07/18 12:06 Lidocaine/Epinephrine (Xylocaine 1% With Epinephrine 1:100,000) Confirm Administered Dose 50 ml .ROUTE .STK-MED ONE Stop: 04/19/18 07:31 Linezolid (Zyvox) 600 mg IRR .STK-MED ONE Stop: 04/07/18 16:06 Last Admin: 04/07/18 16:05 Dose: 600 mg Loperamide HCl (Imodium) 2 mg PO ASDIRECTED PRN PRN Reason: DIARRHEA Melatonin (Melatonin) 9 mg PO BEDTIME [facility] Last Admin: 04/06/18 21:40 Dose: 9 mg Meropenem (Merrem) Confirm Administered Dose 500 mg .ROUTE .STK-MED ONE Stop: 03/18/18 19:40 Last Admin: 03/18/18 20:19 Dose: Not Given Meropenem (Merrem) Confirm Administered Dose 500 mg .ROUTE .STK-MED ONE Stop: 04/07/18 14:38 Last Admin: 04/07/18 16:00 Dose: 500 mg Meropenem (Merrem) Confirm Administered Dose 500 mg .ROUTE .STK-MED ONE Stop: 04/07/18 15:08 Last Admin: 04/07/18 16:05 Dose: 500 mg Methylprednisolone Sodium Succinate (Solu-Medrol) 125 mg IVPUSH ONETIME ONE Stop: 04/17/18 05:49 Last Admin: 04/17/18 06:02 Dose: 125 mg Midazolam HCl (Versed 1 Mg/Ml) Confirm Administered Dose 2 mg .ROUTE .STK-MED ONE Stop: 04/02/18 12:59 Morphine Sulfate (Morphine) 4 mg IVPUSH Q2H PRN PRN Reason: Pain Last Admin: 03/29/18 07:34 Dose: 4 mg Morphine Sulfate (Morphine [employer] 150 Mg In 30 Ml) 0 mg IV ASDIRECTED PRN; Protocol PRN Reason: Pain Last Admin: 04/07/18 10:00 Dose: 150 mg Morphine Sulfate (Morphine Linking Machine Operator 150 Mg In 30 Ml) 0 mg IV ASDIRECTED PRN; Protocol PRN Reason: Pain Naloxone HCl (Narcan) 0.1 mg IV ASDIRECTED PRN PRN Reason: decreased respiratory rate Neostigmine Methylsulfate (Neostigmine) Confirm Administered Dose 5 mg .ROUTE .STK-MED ONE Stop: 03/18/18 19:48 Neostigmine Methylsulfate (Neostigmine) Confirm Administered Dose 5 mg .ROUTE .STK-MED ONE Stop: 04/07/18 10:56 Non-Formulary Medication (Total Parenteral Nutrition, Central) 1,000 ml .XX .Continue Order [facility]; Protocol Stop: 03/24/18 11:31 Non-Formulary Medication (Total Parenteral Nutrition, Central) 1,000 ml .XX .Continue Order [facility]; Protocol Non-Formulary Medication (Total Parenteral Nutrition, Central) 1,000 ml .XX .Continue Order [facility]; Protocol Non-Formulary Medication (Total Parenteral Nutrition, Central) 1,000 ml .XX .Continue Order [facility]; Protocol Stop: 03/28/18 12:00 Non-Formulary Medication (Total Parenteral Nutrition, Central) 1,000 ml .XX .Continue Order [facility] Stop: 04/08/18 08:01 Non-Formulary Medication (Total Parenteral Nutrition, Central) 1,000 ml .XX .Continue Order [facility] Stop: 04/09/18 10:00 Non-Formulary Medication (Total Parenteral Nutrition, Central) 1,000 ml .XX .Continue Order [facility] Stop: 04/10/18 10:00 Non-Formulary Medication (Total Parenteral Nutrition, Central) 1,000 ml .XX .Continue Order [facility] Stop: 04/11/18 10:00 Non-Formulary Medication (Total Parenteral Nutrition, Central) 1,000 ml .XX .Continue Order [facility] Stop: 04/12/18 12:00 Non-Formulary Medication (Total Parenteral Nutrition, Central) 1,000 ml .XX .Continue Order [facility] Stop: 04/13/18 12:00 Non-Formulary Medication (Total Parenteral Nutrition, Central) 1,000 ml .XX .Continue Order [facility] Stop: 04/15/18 07:46 Non-Formulary Medication (Total Parenteral Nutrition, Central) 1,000 ml .XX .Continue Order [facility] Stop: 04/16/18 10:00 Non-Formulary Medication (Total Parenteral Nutrition, Central) 1,000 ml .XX .Continue Order [facility] Stop: 04/17/18 12:00 Non-Formulary Medication (Total Parenteral Nutrition, Central) 1,000 ml .XX .Continue Order [facility] Stop: 04/18/18 07:01 Non-Formulary Medication (Total Parenteral Nutrition, Central) 1,000 ml .XX .Continue Order [facility] Stop: 04/19/18 08:01 Non-Formulary Medication (Total Parenteral Nutrition, Central) 1,000 ml .XX .Continue Order [facility] Stop: 04/20/18 12:00 Nystatin (Mycostatin) 5 ml PO QID [facility] Last Admin: 04/04/18 15:25 Dose: 5 ml Ondansetron HCl (Zofran) 4 mg IVPUSH ONETIME ONE Stop: 03/18/18 18:18 Last Admin: 03/18/18 18:27 Dose: 4 mg Ondansetron HCl (Zofran) Confirm Administered Dose 4 mg .ROUTE .STK-MED ONE Stop: 03/18/18 19:48 Ondansetron HCl (Zofran) Confirm Administered Dose 4 mg .ROUTE .STK-MED ONE Stop: 04/07/18 10:56 Oxycodone HCl (Oxycodone) 5 mg PO Q4H PRN PRN Reason: Pain (moderate 4-6) Last Admin: 04/06/18 05:19 Dose: 5 mg Pantoprazole Sodium (Protonix Iv) 40 mg IVPUSH DAILY [facility] Last Admin: 03/28/18 08:34 Dose: 40 mg Pantoprazole Sodium (Protonix) 40 mg PO ACBREAKFAST [facility] Last Admin: 04/07/18 08:10 Dose: 40 mg Phenylephrine HCl (Isaías-Synephrine) Confirm Administered Dose 10 mg .ROUTE .STK- MED ONE Stop: 03/18/18 20:05 Potassium Chloride (Klor-Con M20) 40 meq PO ONETIME ONE Stop: 04/03/18 13:16 Last Admin: 04/03/18 14:33 Dose: 40 meq Potassium Chloride (Klor-Con M20) 40 meq PO ONETIME ONE Stop: 04/03/18 17:01 Last Admin: 04/03/18 20:55 Dose: 40 meq Potassium Chloride (Klor-Con M20) 40 meq PO ONETIME ONE Stop: 04/04/18 09:01 Last Admin: 04/04/18 09:34 Dose: 40 meq Potassium Chloride (Klor-Con M20) 40 meq PO ONETIME ONE Stop: 04/04/18 17:01 Last Admin: 04/04/18 17:08 Dose: 40 meq Potassium Chloride (Klor-Con M20) 40 meq PO ONETIME ONE Stop: 04/05/18 09:01 Last Admin: 04/05/18 10:14 Dose: 40 meq Potassium Chloride (Klor-Con M20) 40 meq PO ONETIME ONE Stop: 04/05/18 17:01 Last Admin: 04/05/18 18:00 Dose: 40 meq Potassium Chloride (Klor-Con M20) 40 meq PO ONETIME ONE Stop: 04/13/18 08:31 Last Admin: 04/13/18 08:42 Dose: 40 meq Potassium Chloride (Klor-Con M20) 40 meq PO ONETIME ONE Stop: 04/13/18 13:01 Last Admin: 04/13/18 12:44 Dose: 40 meq Potassium Chloride (Klor-Con M20) 40 meq PO ONETIME ONE Stop: 04/13/18 17:01 Last Admin: 04/13/18 16:57 Dose: 40 meq Potassium Chloride (Klor-Con M20) 40 meq PO ONETIME ONE Stop: 04/15/18 14:31 Last Admin: 04/15/18 15:16 Dose: 40 meq Prednisone (Prednisone) 20 mg PO WITHBREAKFAST [facility] Last Admin: 03/30/18 08:59 Dose: 20 mg Propofol (Diprivan 20 Ml) Confirm Administered Dose 200 mg .ROUTE .STK-MED ONE Stop: 03/18/18 19:48 Propofol (Diprivan 20 Ml) Confirm Administered Dose 200 mg .ROUTE .STK-MED ONE Stop: 04/02/18 12:59 Propofol (Diprivan 20 Ml) Confirm Administered Dose 200 mg .ROUTE .STK-MED ONE Stop: 04/07/18 10:56 Rocuronium Brigantine (Zemuron) Confirm Administered Dose 50 mg .ROUTE .STK-MED ONE Stop: 03/18/18 19:48 Rocuronium Brigantine (Zemuron) Confirm Administered Dose 50 mg .ROUTE .STK-MED ONE Stop: 04/07/18 10:56 Succinylcholine Chloride (Quelicin) Confirm Administered Dose 200 mg .ROUTE .STK -MED ONE Stop: 03/18/18 19:48 Vancomycin HCl (Vancomycin) 1 gm IV .PHARMACY TO DOSE [facility] Stop: 03/21/18 16:00 Vancomycin HCl (Vancomycin) 1 gm IV .PHARMACY TO DOSE [facility] Stop: 04/16/18 14:00 - Exam Quality Assessment: Supplemental Oxygen General: Alert, Oriented, Cooperative, No Acute Distress Neck: Supple Lungs: Clear to Auscultation, Normal Respiratory Effort Cardiovascular: Regular Rate, Regular Rhythm GI/Abdominal Exam: Soft, No Distention, Abnormal Bowel Sounds (hypoactive ) Extremities: Pedal Edema (mild), Other (no warmth or swelling of right great toe ). No: Increased Warmth Psy/Mental Status: Alert, Normal Affect - Problem List Review Problem List Initiated/Reviewed/Updated: Yes - My Orders Last 24 Hours: My Active Orders 04/19/18 18:12 Ondansetron [Zofran] 4 mg IVPUSH Q6H PRN 04/19/18 18:13 LORazepam [Ativan] 0.5 mg IVPUSH Q4H PRN 04/19/18 20:29 HYDROmorphone [Dilaudid] 0.5 mg IVPUSH Q2H PRN 04/20/18 12:54 Furosemide [Lasix] 20 mg IVPUSH ONETIME ONE - Plan Plan:: ASSESSMENT AND PLAN WOUND DEHISCENCE WITH UNDERLYING ABSCESS - status post exploratory laparotomy . Has had increased pain over the past couple of days. CT scan yesterday showed small amount of fluid in the anterior abdomen concerning for potentially an early abscess. Pain is slightly worse today. No fevers. White count down today. -Ciprofloxacin 400 mg IV every 12 hours -Zyvox IV -Consideration being given for ultrasound drainage of the fluid -Remove central line when able after PICC line placement -Surgical follow-up per surgery team OSTEOMYELITIS RIGHT FIRST TOE - pain and swelling improved. Unable to obtain MRI. Arterial Doppler study showed evidence of significant peripheral arterial disease in the right leg. -Outpatient follow-up with interventional radiology in [place] after he has healed from recent surgeries -Antibiotic therapy as above SIGMOID COLON PERFORATION RESULTING IN ACUTE ABDOMEN AND SEPTIC SHOCK - postop course complicated by wound dehiscence as above. He is receiving nutritional support via TPN. Persistent difficulty with ileus. -Continue TPN initiated but still requiring a small amount of supplemental oxygen. -Post operative per surgical team -Pain control -Saline lock IV ACUTE HYPOXIC RESPIRATORY FAILURE - respiratory status stable with diuresis But still requiring a small amount of supplemental oxygen. Volume status seems slightly hypervolemic today. -Coughing, deep breathing and suctioning as able -Furosemide IV, assess need daily, planning to give small dose today COPD - [id number] smoking history but no evidence for exacerbation at this time. -Nebulized albuterol as needed -Vigorous pulmonary toilet during the postoperative period HISTORY OF LUNG AND PROSTATE CARCINOMA - lung cancer felt to be stable, had been receiving treatment for management of prostate carcinoma prior to admission MAINTENANCE ISSUES -DVT prophylaxis; SCUDs -GI prophylaxis; Protonix 40 mg daily -Sorto catheter; has been successfully removed -Nutrition; full liquids DISPOSITION - anticipate discharge to residential after the hospital stay. Stephon Christy M.D.
[2018-04-21] MEDS: HYDROmorphone 0.5 MG/0.5 ML Syringe IVPUSH PRN (00:31)
[2018-04-21] MEDS: Acetaminophen Soln 650 MG/20.3 ML UD Cup GTUBE SCH (02:39)
[2018-04-21] MEDS: Pantoprazole 40 MG Vial IV SCH (05:42)
[2018-04-21] MEDS: 1: AA 5%/Calcium/D15W/Lytes 1,000 ML with MVI, Adult with Vitamin K 10 ML, Chromium/Copp IV SCH ×6 (05:45→17:48)
[2018-04-21] MEDS ORDERED: Central Total Parenteral Nutrition Bag SCH (07:15)
[2018-04-21] MEDS: Albuterol/Ipratropium 3.0-0.5 MG/3 ML Neb Soln NEB SCH ×4 (07:16→20:01)
[2018-04-21] MEDS ORDERED: Lidocaine 1% with EPINEPHrine 1:100,000 50 ML MDV ONE (07:21)
[2018-04-21] MEDS ORDERED: Bupivacaine 0.5% 50 ML MDV ONE (07:21)
--- NOTE | 2018-04-21 08:24 | PN ---
DATE OF SERVICE: 04/21/2018 SUBJECTIVE: Kodak is getting adequate pain relief from morphine. Oral intake was 100. He has been n.p.o. after midnight. He has had 450 out of his ostomy. Urine output 1425. Gastrostomy tube 150 and has been open to bedside drainage. REVIEW OF SYSTEMS: Remainder of review of systems negative for any pertinent positives and negatives. He is n.p.o. for placement of Latham catheter today. LABORATORY DATA: Hemoglobin 8.1, magnesium 1.5 OBJECTIVE: GENERAL: Kodak Silva is a 77-year-old male. States his pain is controlled. He slept well. VITAL SIGNS: TPR is 98.4, 79, 18, blood pressure 132/70. HEENT: Negative. NECK: Supple. HEART: Regular rate and rhythm. LUNGS: Clear. ABDOMEN: Wound VAC in place. Open incision is getting smaller. Gastrostomy tube to dependent drainage. Colostomy has brown liquid stool. Abdomen is less tender and less firm today. EXTREMITIES: Without peripheral edema. ASSESSMENT: 1. Allergic reaction to vancomycin. 2. Osteomyelitis of right great toe with diffuse atherosclerotic disease, suspected hemodynamically significant disease in the mid superficial femoral artery with monophasic flow. 3. Insertion of left subclavian triple lumen, exploratory laparotomy, drainage of intraabdominal abscess, small bowel resection, small bowel stricture plasty, placement of Vicryl mesh for closure of fascial dehiscence, and evisceration of the intraabdominal abscess and focal small-bowel stricture, focal areas of small bowel deserosalization, insertion of subclavian triple lumen. Date of surgery: 04/07/2018. Surgeon: Fredi Linn MD. 4. Percutaneous endoscopy, gastrostomy tube placement for malnutrition with inadequate oral intake. Date of procedure: 04/02/2018. Surgeon: Fredi Linn MD. 5. Exploratory laparotomy, peritoneal lavage, sigmoid colon resection, Cristina's pouch colostomy for acute abdomen and perforated viscus and sepsis. Date of surgery: 03/18/2018. Surgeon: Espinoza Adams MD. 6. Malnutrition, requiring TPN therapy. PLAN: 1. Latham catheter to be placed today with IV local sedation, n.p.o., case to follow, Fredi Linn MD. 2. Give 1 unit of packed red blood cells now. 3. Lasix 20 mg IV after the 1 unit of packed red blood cells are infused. 4. Continue TPN same rate and content. 5. Discontinue Tylenol. 6. Magnesium 2 g IV q.6 h. x72 hours. 7. Check CBC, CMP, BNP, and phos in a.m. 8. Continue to work on pulmonary status. 9. We will evaluate p.r.n. or in a.m. Rula Morley PA-C /[id number]
[2018-04-21] MEDS: Erythromycin Ethylsuccinate Susp 200 MG/5 ML 100 ML Bottle PO SCH ×3 (09:35→20:35)
[2018-04-21] MEDS: Magnesium Sulfate/Water 2 GM in Premix Bag 1 BAG IV SCH ×3 (09:36→20:01)
[2018-04-21] MEDS: Lactobacillus Rhamnosus GG (Probiotic) Cap PO SCH ×2 (09:36→20:01)
[2018-04-21] MEDS ORDERED: Furosemide 40 MG/4 ML VIAL IVPUSH ONE (10:00)
[2018-04-21] MEDS ORDERED: Furosemide 20 MG/2 ML VIAL IVPUSH ONE (10:00)
--- NOTE | 2018-04-21 10:59 | PCM.PN ---
- General Info Date of Service: 04/21/18 Subjective Update: There were no acute events overnight. He continues to have mild to moderate generalized abdominal pain which is stable from yesterday. No complaints of shortness of breath today. No significant toe pain today. Still some mild bilateral heel pain today. He has been nothing by mouth since yesterday. [place] catheter placement planned for this afternoon. Functional Status: Reports: Pain Controlled - Review of Systems General: Denies: Fever Gastrointestinal: Reports: Abdominal Pain Musculoskeletal: Denies: Other (no toe pain ) - Patient Data Vitals - Most Recent: Last Vital Signs Temp 36.7 C 04/21/18 07:51 Pulse 70 04/21/18 07:51 Resp 18 04/21/18 07:51 BP 123/61 04/21/18 07:51 Pulse Ox 93 L 04/21/18 07:51 Weight - Most Recent: 69.037 kg I&O - Last 24 Hours: Intake & Output 04/20/18 04/21/18 04/21/18 22:59 06:59 14:59 Intake Total 957 1672 Output Total 6431 132 8378 Balance -43 797 -1125 Lab Results Last 24 Hours: Laboratory Results - last 24 hr 04/21/18 04/21/18 04/21/18 Range/Units 04:00 04:00 04:00 WBC 12.8 H (4.5-11.0) K/uL RBC 2.85 L (4.30-5.90) M/uL Hgb 8.1 L (12.0-15.0) g/dL Hct 26.8 L (40.0-54.0) % MCV 94 (80-98) fL MCH 28 (27-31) pg MCHC 30 L (32-36) % Plt Count 420 H (150-400) K/uL Sodium 141 (140-148) mmol/L Potassium 3.8 (3.6-5.2) mmol/L Chloride 107 (100-108) mmol/L Carbon Dioxide 28 (21-32) mmol/L Anion Gap 5.9 (5.0-14.0) mmol/L BUN 32 H (7-18) mg/dL Creatinine 1.0 (0.8-1.3) mg/dL Est Cr Clr Drug Dosing 59.53 mL/min Estimated GFR (MDRD) > 60 (>60) Glucose 117 H (74-106) mg/dL Calcium 8.0 L (8.5-10.1) mg/dL Phosphorus 3.4 (2.5-4.9) mg/dL Magnesium 1.5 L (1.8-2.4) mg/dL Total Bilirubin 0.4 (0.2-1.0) mg/dL AST 18 (15-37) U/L ALT 37 (12-78) U/L Alkaline Phosphatase 122 H (46-116) U/L NT-Pro-B Natriuret Pep 240 (5-450) pg/mL Total Protein 5.2 L (6.4-8.2) g/dL Albumin 2.1 L (3.4-5.0) g/dL Globulin 3.1 (2.3-3.5) g/dL Albumin/Globulin Ratio 0.7 L (1.2-2.2) Blood Type O POSITIVE Gel Antibody Screen Negative Crossmatch See Detail Med Orders - Current: Current Medications Albuterol (Proventil Neb Soln) 2.5 mg NEB Q4H PRN PRN Reason: Dyspnea Last Admin: 04/17/18 05:03 Dose: 2.5 mg Albuterol/Ipratropium (Duoneb 3.0-0.5 Mg/3 Ml) 3 ml NEB QIDRT [facility] Last Admin: 04/21/18 07:16 Dose: 3 ml Calcium Carbonate/Glycine (Tums) 1,000 mg PO Q2H PRN PRN Reason: Indigestion Last Admin: 04/15/18 20:27 Dose: 1,000 mg Dimethicone/Zinc Oxide (Rash Relief-Zinc Oxide [place]) 0 gm TOP ASDIRECTED PRN PRN Reason: Rash Last Admin: 03/28/18 16:55 Dose: 1 spray Diphenhydramine HCl (Benadryl) 25 mg IVPUSH Q6H PRN PRN Reason: Itching Last Admin: 04/20/18 02:40 Dose: 25 mg Erythromycin Ethylsuccinate (Eryped 200) 250 mg PO TID@0800,1400,2000 [facility] Last Admin: 04/21/18 09:35 Dose: 250 mg Heparin Sodium (Porcine) (Heparin Lock Flush 100 Units/Ml) 500 units FLUSH ASDIRECTED PRN PRN Reason: IV Use Last Admin: 04/20/18 04:13 Dose: 500 units Hydromorphone HCl (Dilaudid) 0.5 mg IVPUSH Q2H PRN PRN Reason: Pain Last Admin: 04/21/18 00:31 Dose: 0.5 mg Hydroxyzine HCl (Vistaril) 50 mg IM Q6H PRN PRN Reason: Pain Last Admin: 04/19/18 15:43 Dose: 50 mg Multivitamins/Minerals 10 ml/Chromium/Copper/Manganese/Seleni/Zn 1 ml/ Amino Ac/ Electrol/Dextrose/Calcium 1,011 mls @ 82 mls/hr IV .BY DURATION [facility] Last Admin: 04/20/18 17:56 Dose: 82 mls/hr Amino Ac/Electrol/Dextrose/Calcium (Clinimix E 07/08) 1,000 mls @ 82 mls/hr IV .BY DURATION [facility] Last Admin: 04/21/18 05:45 Dose: 82 mls/hr Ciprofloxacin/Dextrose 400 mg/ (Premix) 200 mls @ 200 mls/hr IV Q12H [facility] Last Admin: 04/20/18 22:30 Dose: 200 mls/hr Linezolid 600 mg/ Premix 300 mls @ 300 mls/hr IV Q12H [facility] Last Admin: 04/20/18 23:27 Dose: 300 mls/hr Magnesium Sulfate 2 gm/ Premix 50 mls @ 25 mls/hr IV Q6H [facility] Stop: 04/24/18 04:59 Last Admin: 04/21/18 09:36 Dose: 25 mls/hr Lactobacillus Rhamnosus (Culturelle) 1 cap PO BID [facility] Last Admin: 04/21/18 09:36 Dose: 1 cap Lorazepam (Ativan) 0.5 mg IVPUSH Q4H PRN PRN Reason: Nausea Morphine Sulfate (Morphine 10 Mg/0.5 Ml Oral Syringe) 5 mg PO Q4HWA PRN PRN Reason: Pain Last Admin: 04/20/18 19:59 Dose: 5 mg Ondansetron HCl (Zofran) 4 mg IVPUSH Q6H PRN PRN Reason: Nausea/Vomiting Pantoprazole Sodium (Protonix Iv) 40 mg IV Q24H [facility] Last Admin: 04/21/18 05:42 Dose: 40 mg Tramadol HCl (Ultram) 25 - 50 mg PO Q6H PRN PRN Reason: Pain Last Admin: 04/19/18 19:25 Dose: 50 mg Discontinued Medications Acetaminophen (Tylenol) 650 mg RECTAL Q4H PRN PRN Reason: Fever Acetaminophen (Tylenol) 650 mg PO Q4H PRN PRN Reason: Pain/Fever Last Admin: 04/05/18 20:14 Dose: 650 mg Acetaminophen (Tylenol) 1,000 mg GTUBE Q6H [facility] Last Admin: 04/17/18 14:02 Dose: 1,000 mg Acetaminophen (Tylenol) 1,000 mg GTUBE Q6H [facility] Last Admin: 04/21/18 02:39 Dose: 1,000 mg Albuterol/Ipratropium (Duoneb 3.0-0.5 Mg/3 Ml) 3 ml NEB Q4H PRN PRN Reason: Dyspnea Albuterol/Ipratropium (Duoneb 3.0-0.5 Mg/3 Ml) 3 ml NEB ONETIME ONE Stop: 04/07/18 10:31 Last Admin: 04/07/18 10:26 Dose: Not Given Bupivacaine HCl (Marcaine 0.5%) Confirm Administered Dose 50 ml .ROUTE .STK-MED ONE Stop: 04/07/18 12:06 Bupivacaine HCl (Marcaine 0.5%) Confirm Administered Dose 50 ml .ROUTE .STK-MED ONE Stop: 04/19/18 07:31 Bupivacaine HCl (Marcaine 0.5%) Confirm Administered Dose 50 ml .ROUTE .STK-MED ONE Stop: 04/21/18 07:22 Ropivacaine 34 ml/Dexamethasone 8 mg/Epinephrine HCl 0.4 mg/ Sodium Chloride 43.6 ml 0 ml NERVRT ASDIRECTED [facility] Last Admin: 04/07/18 16:01 Dose: 80 syringe Dexamethasone (Dexamethasone) Confirm Administered Dose 4 mg .ROUTE .STK-MED ONE Stop: 03/18/18 19:48 Dexamethasone (Dexamethasone) Confirm Administered Dose 4 mg .ROUTE .STK-MED ONE Stop: 04/07/18 10:56 Epinephrine HCl (Adrenalin) Confirm Administered Dose 1 mg .ROUTE .STK-MED ONE Stop: 03/18/18 21:07 Erythromycin (Jh-Tab) 250 mg PO TID@0730,1630,2130 [facility] Last Admin: 04/17/18 10:03 Dose: 250 mg Erythromycin (Jh-Tab) 250 mg PO TID@0800,1400,2000 [facility] Stop: 04/18/18 08:01 Last Admin: 04/18/18 08:16 Dose: 250 mg Erythromycin Ethylsuccinate (Eryped 400) 125 mg PO Q6H [facility] Last Admin: 04/07/18 15:14 Dose: Not Given Fentanyl (Sublimaze) Confirm Administered Dose 250 mcg .ROUTE .STK-MED ONE Stop: 03/18/18 19:48 Fentanyl (Sublimaze) Confirm Administered Dose 250 mcg .ROUTE .STK-MED ONE Stop: 04/02/18 12:59 Fentanyl (Sublimaze) Confirm Administered Dose 250 mcg .ROUTE .STK-MED ONE Stop: 04/07/18 10:56 Furosemide (Lasix) 20 mg IVPUSH ONETIME ONE Stop: 03/23/18 09:46 Last Admin: 03/23/18 10:18 Dose: 20 mg Furosemide (Lasix) 20 mg IVPUSH NOW ONE Stop: 03/25/18 10:01 Last Admin: 03/25/18 10:17 Dose: 20 mg Furosemide (Lasix) 20 mg IVPUSH ONETIME ONE Stop: 03/26/18 09:16 Last Admin: 03/26/18 09:10 Dose: 20 mg Furosemide (Lasix) 20 mg IVPUSH ONETIME ONE Stop: 03/26/18 16:01 Last Admin: 03/26/18 18:28 Dose: Not Given Furosemide (Lasix) 20 mg IVPUSH NOW ONE Stop: 03/27/18 10:01 Last Admin: 03/27/18 10:26 Dose: 20 mg Furosemide (Lasix) 20 mg IVPUSH ONETIME ONE Stop: 03/30/18 13:11 Last Admin: 03/30/18 13:36 Dose: 20 mg Furosemide (Lasix) 20 mg IVPUSH NOW ONE Stop: 03/31/18 11:55 Last Admin: 03/31/18 13:04 Dose: 20 mg Furosemide (Lasix) 20 mg IVPUSH NOW ONE Stop: 04/01/18 12:05 Last Admin: 04/01/18 12:43 Dose: 20 mg Furosemide (Lasix) 20 mg IVPUSH NOW ONE Stop: 04/02/18 15:46 Last Admin: 04/02/18 15:53 Dose: 20 mg Furosemide (Lasix) 40 mg IVPUSH NOW ONE Stop: 04/03/18 09:01 Last Admin: 04/03/18 09:45 Dose: 40 mg Furosemide (Lasix) 40 mg IVPUSH NOW ONE Stop: 04/04/18 15:31 Last Admin: 04/04/18 15:55 Dose: 40 mg Furosemide (Lasix) 40 mg IVPUSH NOW ONE Stop: 04/05/18 09:01 Last Admin: 04/05/18 10:15 Dose: 40 mg Furosemide (Lasix) 40 mg IVPUSH ONETIME ONE Stop: 04/08/18 12:01 Last Admin: 04/08/18 11:01 Dose: 40 mg Furosemide (Lasix) 40 mg IVPUSH ONETIME STA Stop: 04/09/18 06:48 Last Admin: 04/09/18 10:16 Dose: Not Given Furosemide (Lasix) 20 mg IVPUSH ONETIME ONE Stop: 04/09/18 12:01 Last Admin: 04/09/18 13:43 Dose: Not Given Furosemide (Lasix) 40 mg IVPUSH ONETIME STA Stop: 04/09/18 10:08 Last Admin: 04/09/18 10:09 Dose: 40 mg Furosemide (Lasix) Confirm Administered Dose 40 mg .ROUTE .STK-MED ONE Stop: 04/09/18 10:08 Last Admin: 04/09/18 10:16 Dose: 40 mg Furosemide (Lasix) 40 mg IVPUSH ONETIME ONE Stop: 04/09/18 16:01 Last Admin: 04/09/18 15:54 Dose: 40 mg Furosemide (Lasix) 40 mg IVPUSH ONETIME ONE Stop: 04/10/18 12:01 Last Admin: 04/10/18 14:03 Dose: 40 mg Furosemide (Lasix) 20 mg IVPUSH ONETIME ONE Stop: 04/10/18 20:01 Last Admin: 04/10/18 21:10 Dose: 20 mg Furosemide (Lasix) 40 mg IVPUSH NOW ONE Stop: 04/11/18 11:31 Last Admin: 04/11/18 12:58 Dose: 40 mg Furosemide (Lasix) 40 mg IVPUSH NOW ONE Stop: 04/12/18 11:21 Last Admin: 04/12/18 13:28 Dose: 40 mg Furosemide (Lasix) Confirm Administered Dose 40 mg .ROUTE .ST-MED ONE Stop: 04/12/18 13:27 Last Admin: 04/12/18 13:52 Dose: Not Given Furosemide (Lasix) 40 mg IVPUSH NOW ONE Stop: 04/13/18 08:31 Last Admin: 04/13/18 08:42 Dose: 40 mg Furosemide (Lasix) 40 mg IVPUSH NOW ONE Stop: 04/14/18 10:01 Last Admin: 04/14/18 10:09 Dose: 40 mg Furosemide (Lasix) 20 mg IV ONETIME ONE Stop: 04/17/18 12:31 Last Admin: 04/17/18 12:22 Dose: 20 mg Furosemide (Lasix) 20 mg IVPUSH ONETIME ONE Stop: 04/20/18 12:55 Last Admin: 04/20/18 13:57 Dose: 20 mg Furosemide (Lasix) 20 mg IVPUSH ONETIME ONE Stop: 04/21/18 10:01 Last Admin: 04/21/18 09:37 Dose: 20 mg Furosemide (Lasix) 40 mg IVPUSH ONETIME ONE Stop: 04/21/18 10:01 Last Admin: 04/21/18 09:52 Dose: 40 mg Glycopyrrolate (Robinul) Confirm Administered Dose 1 mg .ROUTE .ST-MED ONE Stop: 03/18/18 19:48 Glycopyrrolate (Robinul) Confirm Administered Dose 1 mg .ROUTE .[facility]-MED ONE Stop: 04/07/18 10:56 Heparin Sodium (Porcine) (Heparin Sodium) Confirm Administered Dose 5,000 units .ROUTE .STK-MED ONE Stop: 03/18/18 19:51 Heparin Sodium (Porcine) (Heparin Lock Flush 100 Units/Ml) Confirm Administered Dose 500 units .ROUTE .STK-MED ONE Stop: 03/22/18 12:17 Last Admin: 03/22/18 12:30 Dose: Not Given Heparin Sodium (Porcine) (Heparin Sodium) Confirm Administered Dose 5,000 units .ROUTE .STK-MED ONE Stop: 03/24/18 19:52 Last Admin: 03/24/18 20:33 Dose: 5,000 units Heparin Sodium (Porcine) (Heparin Lock Flush 100 Units/Ml) Confirm Administered Dose 1,000 units .ROUTE .STK-MED ONE Stop: 04/07/18 12:06 Last Admin: 04/07/18 14:30 Dose: 500 units Heparin Sodium (Porcine) (Heparin Lock Flush 100 Units/Ml) Confirm Administered Dose 1,500 units .ROUTE .STK-MED ONE Stop: 04/19/18 07:31 Heparin Sodium (Porcine) (Heparin Lock Flush 100 Units/Ml) Confirm Administered Dose 1,000 units .ROUTE .STK-MED ONE Stop: 04/21/18 07:22 Heparin Sodium (Porcine) (Heparin Lock Flush 100 Units/Ml) Confirm Administered Dose 500 units .ROUTE .STK-MED ONE Stop: 04/21/18 07:23 Hydrocortisone Sodium Succinate (Solu-Cortef) 100 mg IVPUSH Q12H [facility] Last Admin: 03/28/18 20:15 Dose: 100 mg Hydrocortisone Sodium Succinate (Solu-Cortef) 100 mg IVPUSH DAILY [facility] Last Admin: 03/30/18 13:39 Dose: Not Given Hydromorphone HCl (Dilaudid) 0.5 mg IVPUSH ONETIME ONE Stop: 03/18/18 17:43 Last Admin: 03/18/18 17:47 Dose: 0.5 mg Hydromorphone HCl (Dilaudid) 1 mg IVPUSH ONETIME ONE Stop: 03/18/18 18:18 Last Admin: 03/18/18 18:27 Dose: 1 mg Hydromorphone HCl (Dilaudid) 0.5 mg IVPUSH ONETIME ONE Stop: 04/16/18 09:58 Last Admin: 04/16/18 10:31 Dose: 0.5 mg Hydroxyzine HCl (Vistaril) 100 mg IM Q6H PRN PRN Reason: Pain Last Admin: 04/11/18 08:49 Dose: 100 mg Sodium Chloride (Normal Saline) 1,000 mls @ 1,000 mls/hr IV ASDIRECTED [facility] Last Admin: 03/18/18 17:47 Dose: 1,000 mls/hr Sodium Chloride (Normal Saline) 1,000 mls @ 999 mls/hr IV ASDIRECTED [facility] Last Admin: 03/18/18 19:31 Dose: 999 mls/hr Meropenem 500 mg/ Sodium (Chloride) 50 mls @ 100 mls/hr IV ONETIME ONE Stop: 03/18/18 19:09 Last Admin: 03/18/18 19:01 Dose: 100 mls/hr Sodium Chloride (Normal Saline) Confirm Administered Dose 50 mls @ as directed .ROUTE .[facility]-MED ONE Stop: 03/18/18 19:40 Last Admin: 03/18/18 20:19 Dose: Not Given Aztreonam 2 gm/ Sodium (Chloride) 50 mls @ 100 mls/hr IV ONETIME ONE Stop: 03/18/18 20:01 Last Admin: 03/18/18 20:44 Dose: 100 mls/hr Meropenem 500 mg/ Sodium (Chloride) 50 mls @ 100 mls/hr IV ONETIME ONE Stop: 03/18/18 20:00 Last Admin: 03/18/18 19:40 Dose: 100 mls/hr Sodium Chloride (Normal Saline) Confirm Administered Dose 250 mls @ as directed .ROUTE .[facility]-MED ONE Stop: 03/18/18 19:59 Lactated Ringer's (Ringers, Lactated) Confirm Administered Dose 1,000 mls @ as directed .ROUTE .[facility]-MED ONE Stop: 03/18/18 19:59 Sodium Chloride (Normal Saline) Confirm Administered Dose 500 mls @ as directed .ROUTE .[facility]-MED ONE Stop: 03/18/18 19:59 Norepinephrine Bitartrate 8 mg (/ Dextrose/Water) 258 mls @ 3.87 mls/hr IV TITRATE [facility]; Protocol Last Admin: 03/19/18 11:45 Dose: 12 mcg/min, 23.22 mls/hr Lactated Ringer's (Ringers, Lactated) Confirm Administered Dose 1,000 mls @ as directed .ROUTE .[facility]-MED ONE Stop: 03/18/18 21:42 Propofol (Diprivan 100 Ml) 100 mls @ 2.082 mls/hr IV TITRATE [facility]; Protocol Last Titration: 03/27/18 06:35 Dose: 10 mcg/kg/min, 4.164 mls/hr Aztreonam 1 gm/ Sodium (Chloride) 50 mls @ 100 mls/hr IV Q8H [facility] Last Admin: 03/19/18 05:29 Dose: 100 mls/hr Potassium Chloride/Dextrose/Sod Cl (D5 1/2 Ns W/ 20 Meq/L Kcl) 1,000 mls @ 150 mls/hr IV ASDIRECTED [facility] Last Admin: 03/18/18 23:11 Dose: 150 mls/hr Meropenem 1 gm/ Sodium (Chloride) 50 mls @ 100 mls/hr IV Q12H [facility] Stop: 03/29/18 22:00 Last Admin: 03/29/18 20:10 Dose: 100 mls/hr Lactated Ringer's (Ringers, Lactated) 1,000 mls @ 500 mls/hr IV ASDIRECTED [facility] Last Admin: 03/19/18 01:23 Dose: 500 mls/hr Vasopressin 100 units/ (Dextrose/Water) 255 mls @ 1.53 mls/hr IV TITRATE [facility]; Protocol Stop: 03/21/18 13:00 Last Titration: 03/21/18 11:03 Dose: 0.02 units/min, 3.06 mls/hr Lactated Ringer's (Ringers, Lactated) 1,000 mls @ 500 mls/hr IV BOLUS [facility] Stop: 03/19/18 05:29 Last Admin: 03/19/18 04:02 Dose: 500 mls/hr Aztreonam/Dextrose 1 gm/ (Premix) 50 mls @ 100 mls/hr IV Q8H [facility] Last Admin: 03/28/18 05:26 Dose: 100 mls/hr Lactated Ringer's (Ringers, Lactated) 1,000 mls @ 500 mls/hr IV .BOLUS ONE Stop: 03/19/18 14:59 Last Admin: 03/19/18 14:27 Dose: 500 mls/hr Lactated Ringer's (Ringers, Lactated) 1,000 mls @ 150 mls/hr IV ASDIRECTED [facility] Last Admin: 03/21/18 11:53 Dose: 150 mls/hr Norepinephrine Bitartrate 8 mg (/ Dextrose/Water) 250 mls @ 3.75 mls/hr IV TITRATE [facility]; Protocol Last Titration: 03/27/18 09:04 Dose: 4 mcg/min, 7.5 mls/hr Magnesium Sulfate 2 gm/ Premix 50 mls @ 25 mls/hr IV Q6H [facility] Stop: 03/20/18 17:59 Last Admin: 03/20/18 16:30 Dose: 25 mls/hr Vancomycin HCl 1.25 gm/ Sodium (Chloride) 250 mls @ 170 mls/hr IV Q24H [facility] Last Admin: 03/22/18 10:06 Dose: 170 mls/hr Vasopressin 40 units/ Dextrose (/Water) 100 mls @ 3 mls/hr IV TITRATE [facility]; Protocol Last Titration: 03/23/18 01:00 Dose: 0 units/min, 0 mls/hr Potassium Chloride 20 meq/ (Premix) 100 mls @ 50 mls/hr IV Q2H [facility] Stop: 03/21/18 22:59 Last Admin: 03/21/18 22:20 Dose: 50 mls/hr Potassium Chloride 20 meq/ (Premix) 100 mls @ 50 mls/hr IV Q2H [facility] Stop: 03/22/18 12:59 Last Admin: 03/22/18 11:30 Dose: 50 mls/hr Potassium Chloride 20 meq/ (Premix) 100 mls @ 50 mls/hr IV Q2H [facility] Stop: 03/22/18 17:29 Last Admin: 03/22/18 16:13 Dose: 50 mls/hr Potassium Chloride (Kcl 20 Meq In Water 100 Ml) 100 mls @ 50 mls/hr IV Q2H [facility] Stop: 03/23/18 01:59 Last Admin: 03/23/18 00:53 Dose: 50 mls/hr Potassium Chloride 40 meq/ (Premix) 100 mls @ 25 mls/hr IV ONETIME ONE Stop: 03/23/18 14:29 Last Admin: 03/23/18 10:31 Dose: 25 mls/hr Vancomycin HCl 1.4 gm/ Sodium (Chloride) 250 mls @ 170 mls/hr IV Q24H [facility] Last Admin: 03/24/18 11:13 Dose: 170 mls/hr Multivitamins/Minerals 10 ml/Chromium/Copper/Manganese/Seleni/Zn 1 ml/ Amino Ac/ Electrol/Dextrose/Calcium 1,011 mls @ 75 mls/hr IV .BY DURATION [facility] Last Admin: 03/25/18 22:34 Dose: 75 mls/hr Amino Ac/Electrol/Dextrose/Calcium (Clinimix E 5/15) 1,000 mls @ 75 mls/hr IV .BY DURATION [facility] Last Admin: 03/25/18 08:11 Dose: 75 mls/hr Vasopressin 100 units/ (Dextrose/Water) 255 mls @ 1.53 mls/hr IV TITRATE [facility]; Protocol Last Titration: 03/25/18 11:51 Dose: 0 units/min, 0 mls/hr Potassium Chloride 20 meq/ (Premix) 100 mls @ 50 mls/hr IV Q2H [facility] Stop: 03/24/18 13:59 Last Admin: 03/24/18 12:13 Dose: 50 mls/hr Multivitamins/Minerals 10 ml/Chromium/Copper/Manganese/Seleni/Zn 1 ml/ Amino Ac/ Electrol/Dextrose/Calcium 1,011 mls @ 75 mls/hr IV .BY DURATION [facility] Last Admin: 03/29/18 06:48 Dose: 75 mls/hr Amino Ac/Electrol/Dextrose/Calcium (Clinimix E 07/08) 1,000 mls @ 75 mls/hr IV .BY DURATION [facility] Last Admin: 03/29/18 20:12 Dose: 75 mls/hr Heparin Sodium (Porcine) 5,000 (units/ Sodium Chloride) 501 mls @ 5 mls/hr IV ASDIRECTED [facility] Last Admin: 03/27/18 12:50 Dose: 5 mls/hr Sodium Chloride (Normal Saline) 1,000 mls @ 50 mls/hr IV ASDIRECTED [facility] Last Admin: 03/30/18 13:36 Dose: 50 mls/hr Dextrose/Sodium Chloride (Dextrose 5%-1/2 Ns) 1,000 mls @ 75 mls/hr IV ASDIRECTED [facility] Last Admin: 03/31/18 23:53 Dose: 75 mls/hr Albumin Human (Albumin 25%) 25 gm in 100 mls @ 25 mls/hr IV Q24H [facility] Stop: 04/02/18 12:59 Last Admin: 04/01/18 08:13 Dose: 25 mls/hr Potassium Phosphate 20 mmole/ (Sodium Chloride) 256.6667 mls @ 85 mls/hr IV Q3H [facility] Stop: 04/01/18 18:59 Last Admin: 04/01/18 18:37 Dose: 85 mls/hr Dextrose/Sodium Chloride (Dextrose 5%-1/2 Ns) 1,000 mls @ 80 mls/hr IV ASDIRECTED [facility] Last Admin: 04/03/18 06:40 Dose: 80 mls/hr Cefazolin Sodium/Dextrose 2 gm (/ Premix) 50 mls @ 100 mls/hr IV ONCALL ONE Stop: 04/02/18 11:59 Last Admin: 04/02/18 13:59 Dose: 100 mls/hr Potassium Acetate 20 meq/ (Sodium Chloride) 110 mls @ 55 mls/hr IV Q2H [facility] Stop: 04/02/18 11:59 Last Admin: 04/02/18 10:10 Dose: 55 mls/hr Magnesium Sulfate 2 gm/ Premix 50 mls @ 25 mls/hr IV Q6H [facility] Stop: 04/05/18 07:59 Last Admin: 04/03/18 12:11 Dose: 25 mls/hr Albumin Human (Albumin 25%) 25 gm in 100 mls @ 25 mls/hr IV ONETIME ONE Stop: 04/02/18 17:59 Last Admin: 04/02/18 15:30 Dose: 25 mls/hr Potassium Chloride 20 meq/Lidocaine HCl 2 ml/ Sodium Chloride 112 mls @ 56 mls/ hr IV Q2H [facility] Stop: 04/03/18 17:59 Last Admin: 04/03/18 17:04 Dose: 56 mls/hr Magnesium Sulfate 2 gm/ Premix 50 mls @ 25 mls/hr IV Q6H [facility] Stop: 04/08/18 03:59 Last Admin: 04/07/18 15:14 Dose: Not Given Potassium Phosphate 15 mmole/ (Sodium Chloride) 255 mls @ 128 mls/hr IV Q2H [facility] Stop: 04/06/18 13:59 Last Admin: 04/06/18 12:49 Dose: 128 mls/hr Dextrose/Lactated Ringer's (Dextrose 5%-Lactated Ringers) 1,000 mls @ 100 mls/ hr IV ASDIRECTED [facility] Last Admin: 04/07/18 08:44 Dose: 100 mls/hr Meropenem 500 mg/ Sodium (Chloride) 50 mls @ 100 mls/hr IV ONCALL ONE Stop: 04/07/18 11:59 Last Admin: 04/07/18 15:13 Dose: Not Given Linezolid (Zyvox) Confirm Administered Dose 300 mls @ as directed .ROUTE .STK- MED ONE Stop: 04/07/18 15:26 Lactated Ringer's (Ringers, Lactated) Confirm Administered Dose 1,000 mls @ as directed .ROUTE .STK-MED ONE Stop: 04/07/18 15:35 Linezolid 600 mg/ Premix 300 mls @ 300 mls/hr IV ONETIME ONE Stop: 04/07/18 17:29 Last Admin: 04/07/18 16:25 Dose: 300 mls/hr Dextrose/Lactated Ringer's (Dextrose 5%-Lactated Ringers) 1,000 mls @ 175 mls/ hr IV ASDIRECTED [facility] Last Admin: 04/08/18 06:21 Dose: 175 mls/hr Linezolid 600 mg/ Premix 300 mls @ 300 mls/hr IV Q12H [facility] Last Admin: 04/10/18 03:46 Dose: 300 mls/hr Meropenem 500 mg/ Sodium (Chloride) 50 mls @ 100 mls/hr IV Q8H [facility] Last Admin: 04/11/18 06:23 Dose: 100 mls/hr Magnesium Sulfate 2 gm/ Premix 50 mls @ 25 mls/hr IV Q6H [facility] Stop: 04/09/18 13:59 Last Admin: 04/09/18 11:40 Dose: 25 mls/hr Dextrose/Lactated Ringer's (Dextrose 5%-Lactated Ringers) 1,000 mls @ 100 drops /hr IV ASDIRECTED [facility] Last Admin: 04/09/18 11:39 Dose: 100 drops/hr Albumin Human (Albumin 25%) 25 gm in 100 mls @ 25 mls/hr IV Q24H [facility] Stop: 04/12/18 13:59 Last Admin: 04/12/18 09:28 Dose: 25 mls/hr Albumin Human (Albumin 25%) 25 gm in 100 mls @ 25 mls/hr IV Q24H [facility] Stop: 04/12/18 17:59 Last Admin: 04/12/18 14:19 Dose: 25 mls/hr Dextrose/Lactated Ringer's (Dextrose 5%-Lactated Ringers) 1,000 mls @ 25 mls/ hr IV ASDIRECTED [facility] Sodium Chloride (Normal Saline) 1,000 mls @ 0 mls/hr IV ASDIRECTED [facility] Potassium Phosphate 22.5 mmole (/ Sodium Chloride) 257.5 mls @ 86 mls/hr IV Q3H [facility] Stop: 04/10/18 15:59 Last Admin: 04/10/18 14:47 Dose: 86 mls/hr Calcium Gluconate 1 gm/ Sodium (Chloride) 110 mls @ 100 mls/hr IV Q6H [facility] Stop: 04/10/18 18:05 Last Admin: 04/10/18 16:21 Dose: 100 mls/hr Doxycycline Hyclate 100 mg/ (Sodium Chloride) 100 mls @ 100 mls/hr IV Q12H [facility] Last Admin: 04/16/18 12:08 Dose: 100 mls/hr Acetaminophen 1,000 mg/ Premix 100 mls @ 400 mls/hr IV Q6H [facility] Stop: 04/12/18 06:44 Last Admin: 04/12/18 05:47 Dose: 400 mls/hr Potassium Chloride 20 meq/ (Premix) 100 mls @ 50 mls/hr IV Q2H [facility] Stop: 04/12/18 14:59 Last Admin: 04/12/18 13:29 Dose: 50 mls/hr Potassium Chloride 40 meq/ (Premix) 100 mls @ 25 mls/hr IV ONETIME ONE Stop: 04/12/18 12:19 Potassium Chloride 40 meq/ (Premix) 100 mls @ 25 mls/hr IV ONETIME ONE Stop: 04/12/18 20:59 Last Admin: 04/12/18 17:45 Dose: 25 mls/hr Potassium Phosphate 25 mmole/ (Sodium Chloride) 108.3333 mls @ 27 mls/hr IV Q4H [facility] Stop: 04/13/18 21:29 Last Admin: 04/13/18 18:13 Dose: 27 mls/hr Magnesium Sulfate 2 gm/ Premix 50 mls @ 25 mls/hr IV Q6H [facility] Stop: 04/17/18 04:59 Last Admin: 04/15/18 08:34 Dose: 25 mls/hr Vancomycin HCl 1.35 gm/ Sodium (Chloride) 250 mls @ 167 mls/hr IV ONETIME ONE Stop: 04/16/18 15:29 Last Admin: 04/16/18 15:04 Dose: 167 mls/hr Vancomycin HCl 1 gm/ Sodium (Chloride) 250 mls @ 167 mls/hr IV Q12H [facility] Last Admin: 04/17/18 02:21 Dose: 167 mls/hr Magnesium Sulfate 2 gm/ Premix 50 mls @ 25 mls/hr IV Q6H [facility] Stop: 04/21/18 02:59 Last Admin: 04/18/18 08:02 Dose: Not Given Magnesium Sulfate 2 gm/ Premix 50 mls @ 25 mls/hr IV Q6H [facility] Stop: 04/18/18 17:59 Last Admin: 04/18/18 16:28 Dose: 25 mls/hr Potassium Chloride 20 meq/ (Premix) 100 mls @ 50 mls/hr IV Q2H [facility] Stop: 04/19/18 08:59 Last Admin: 04/19/18 07:37 Dose: 50 mls/hr Sodium Chloride (Normal Saline) 71 mls @ 3.1 mls/sec IV ASDIRECTED [facility] Stop: 04/19/18 08:28 Last Admin: 04/19/18 09:15 Dose: 3.1 mls/sec Insulin Human Lispro (Humalog) 0 unit SUBCUT Q6H [facility]; Protocol Last Admin: 03/30/18 16:32 Dose: Not Given Insulin Human Lispro (Humalog) 0 unit SUBCUT Q6H [facility]; Protocol Last Admin: 03/31/18 03:52 Dose: Not Given Insulin Human Lispro (Humalog) 0 unit SUBCUT QIDACANDBED [facility]; Protocol Stop: 04/12/18 11:01 Last Admin: 03/31/18 13:17 Dose: Not Given Iopamidol (Isovue-300 (61%)) 100 ml IV . DIRECTED [facility] Stop: 04/19/18 08:28 Last Admin: 04/19/18 09:15 Dose: 100 ml Lidocaine/Epinephrine (Xylocaine 1% With Epinephrine 1:100,000) Confirm Administered Dose 50 ml .ROUTE .STK-MED ONE Stop: 04/07/18 12:06 Lidocaine/Epinephrine (Xylocaine 1% With Epinephrine 1:100,000) Confirm Administered Dose 50 ml .ROUTE .STK-MED ONE Stop: 04/19/18 07:31 Lidocaine/Epinephrine (Xylocaine 1% With Epinephrine 1:100,000) Confirm Administered Dose 50 ml .ROUTE .STK-MED ONE Stop: 04/21/18 07:22 Linezolid (Zyvox) 600 mg IRR .STK-MED ONE Stop: 04/07/18 16:06 Last Admin: 04/07/18 16:05 Dose: 600 mg Loperamide HCl (Imodium) 2 mg PO ASDIRECTED PRN PRN Reason: DIARRHEA Melatonin (Melatonin) 9 mg PO BEDTIME [facility] Last Admin: 04/06/18 21:40 Dose: 9 mg Meropenem (Merrem) Confirm Administered Dose 500 mg .ROUTE .STK-MED ONE Stop: 03/18/18 19:40 Last Admin: 03/18/18 20:19 Dose: Not Given Meropenem (Merrem) Confirm Administered Dose 500 mg .ROUTE .STK-MED ONE Stop: 04/07/18 14:38 Last Admin: 04/07/18 16:00 Dose: 500 mg Meropenem (Merrem) Confirm Administered Dose 500 mg .ROUTE .STK-MED ONE Stop: 04/07/18 15:08 Last Admin: 04/07/18 16:05 Dose: 500 mg Methylprednisolone Sodium Succinate (Solu-Medrol) 125 mg IVPUSH ONETIME ONE Stop: 04/17/18 05:49 Last Admin: 04/17/18 06:02 Dose: 125 mg Midazolam HCl (Versed 1 Mg/Ml) Confirm Administered Dose 2 mg .ROUTE .STK-MED ONE Stop: 04/02/18 12:59 Morphine Sulfate (Morphine) 4 mg IVPUSH Q2H PRN PRN Reason: Pain Last Admin: 03/29/18 07:34 Dose: 4 mg Morphine Sulfate (Morphine Duct Maker 150 Mg In 30 Ml) 0 mg IV ASDIRECTED PRN; Protocol PRN Reason: Pain Last Admin: 04/07/18 10:00 Dose: 150 mg Morphine Sulfate (Morphine Duct Maker 150 Mg In 30 Ml) 0 mg IV ASDIRECTED PRN; Protocol PRN Reason: Pain Naloxone HCl (Narcan) 0.1 mg IV ASDIRECTED PRN PRN Reason: decreased respiratory rate Neostigmine Methylsulfate (Neostigmine) Confirm Administered Dose 5 mg .ROUTE .STK-MED ONE Stop: 03/18/18 19:48 Neostigmine Methylsulfate (Neostigmine) Confirm Administered Dose 5 mg .ROUTE .STK-MED ONE Stop: 04/07/18 10:56 Non-Formulary Medication (Total Parenteral Nutrition, Central) 1,000 ml .XX .Continue Order [facility]; Protocol Stop: 03/24/18 11:31 Non-Formulary Medication (Total Parenteral Nutrition, Central) 1,000 ml .XX .Continue Order [facility]RA; Protocol Non-Formulary Medication (Total Parenteral Nutrition, Central) 1,000 ml .XX .Continue Order [facility]; Protocol Non-Formulary Medication (Total Parenteral Nutrition, Central) 1,000 ml .XX .Continue Order [facility]RA; Protocol Stop: 03/28/18 12:00 Non-Formulary Medication (Total Parenteral Nutrition, Central) 1,000 ml .XX .Continue Order [facility] Stop: 04/08/18 08:01 Non-Formulary Medication (Total Parenteral Nutrition, Central) 1,000 ml .XX .Continue Order [facility] Stop: 04/09/18 10:00 Non-Formulary Medication (Total Parenteral Nutrition, Central) 1,000 ml .XX .Continue Order [facility] Stop: 04/10/18 10:00 Non-Formulary Medication (Total Parenteral Nutrition, Central) 1,000 ml .XX .Continue Order [facility] Stop: 04/11/18 10:00 Non-Formulary Medication (Total Parenteral Nutrition, Central) 1,000 ml .XX .Continue Order CIARRA Stop: 04/12/18 12:00 Non-Formulary Medication (Total Parenteral Nutrition, Central) 1,000 ml .XX .Continue Order [facility]RA Stop: 04/13/18 12:00 Non-Formulary Medication (Total Parenteral Nutrition, Central) 1,000 ml .XX .Continue Order [facility] Stop: 04/15/18 07:46 Non-Formulary Medication (Total Parenteral Nutrition, Central) 1,000 ml .XX .Continue Order [facility] Stop: 04/16/18 10:00 Non-Formulary Medication (Total Parenteral Nutrition, Central) 1,000 ml .XX .Continue Order [facility] Stop: 04/17/18 12:00 Non-Formulary Medication (Total Parenteral Nutrition, Central) 1,000 ml .XX .Continue Order [facility] Stop: 04/18/18 07:01 Non-Formulary Medication (Total Parenteral Nutrition, Central) 1,000 ml .XX .Continue Order [facility]RA Stop: 04/19/18 08:01 Non-Formulary Medication (Total Parenteral Nutrition, Central) 1,000 ml .XX .Continue Order [facility] Stop: 04/20/18 12:00 Non-Formulary Medication (Total Parenteral Nutrition, Central) 1,000 ml .XX .Continue Order [facility] Stop: 04/21/18 10:00 Nystatin (Mycostatin) 5 ml PO QID [facility] Last Admin: 04/04/18 15:25 Dose: 5 ml Ondansetron HCl (Zofran) 4 mg IVPUSH ONETIME ONE Stop: 03/18/18 18:18 Last Admin: 03/18/18 18:27 Dose: 4 mg Ondansetron HCl (Zofran) Confirm Administered Dose 4 mg .ROUTE .STK-MED ONE Stop: 03/18/18 19:48 Ondansetron HCl (Zofran) Confirm Administered Dose 4 mg .ROUTE .STK-MED ONE Stop: 04/07/18 10:56 Oxycodone HCl (Oxycodone) 5 mg PO Q4H PRN PRN Reason: Pain (moderate 4-6) Last Admin: 04/06/18 05:19 Dose: 5 mg Pantoprazole Sodium (Protonix Iv) 40 mg IVPUSH DAILY [facility] Last Admin: 03/28/18 08:34 Dose: 40 mg Pantoprazole Sodium (Protonix) 40 mg PO ACBREAKFAST [facility] Last Admin: 04/07/18 08:10 Dose: 40 mg Phenylephrine HCl (Isaías-Synephrine) Confirm Administered Dose 10 mg .ROUTE .STK- MED ONE Stop: 03/18/18 20:05 Potassium Chloride (Klor-Con M20) 40 meq PO ONETIME ONE Stop: 04/03/18 13:16 Last Admin: 04/03/18 14:33 Dose: 40 meq Potassium Chloride (Klor-Con M20) 40 meq PO ONETIME ONE Stop: 04/03/18 17:01 Last Admin: 04/03/18 20:55 Dose: 40 meq Potassium Chloride (Klor-Con M20) 40 meq PO ONETIME ONE Stop: 04/04/18 09:01 Last Admin: 04/04/18 09:34 Dose: 40 meq Potassium Chloride (Klor-Con M20) 40 meq PO ONETIME ONE Stop: 04/04/18 17:01 Last Admin: 04/04/18 17:08 Dose: 40 meq Potassium Chloride (Klor-Con M20) 40 meq PO ONETIME ONE Stop: 04/05/18 09:01 Last Admin: 04/05/18 10:14 Dose: 40 meq Potassium Chloride (Klor-Con M20) 40 meq PO ONETIME ONE Stop: 04/05/18 17:01 Last Admin: 04/05/18 18:00 Dose: 40 meq Potassium Chloride (Klor-Con M20) 40 meq PO ONETIME ONE Stop: 04/13/18 08:31 Last Admin: 04/13/18 08:42 Dose: 40 meq Potassium Chloride (Klor-Con M20) 40 meq PO ONETIME ONE Stop: 04/13/18 13:01 Last Admin: 04/13/18 12:44 Dose: 40 meq Potassium Chloride (Klor-Con M20) 40 meq PO ONETIME ONE Stop: 04/13/18 17:01 Last Admin: 04/13/18 16:57 Dose: 40 meq Potassium Chloride (Klor-Con M20) 40 meq PO ONETIME ONE Stop: 04/15/18 14:31 Last Admin: 04/15/18 15:16 Dose: 40 meq Prednisone (Prednisone) 20 mg PO WITHBREAKFAST [facility] Last Admin: 03/30/18 08:59 Dose: 20 mg Propofol (Diprivan 20 Ml) Confirm Administered Dose 200 mg .ROUTE .STK-MED ONE Stop: 03/18/18 19:48 Propofol (Diprivan 20 Ml) Confirm Administered Dose 200 mg .ROUTE .STK-MED ONE Stop: 04/02/18 12:59 Propofol (Diprivan 20 Ml) Confirm Administered Dose 200 mg .ROUTE .STK-MED ONE Stop: 04/07/18 10:56 Rocuronium [place] (Zemuron) Confirm Administered Dose 50 mg .ROUTE .STK-MED ONE Stop: 03/18/18 19:48 Rocuronium [place] (Zemuron) Confirm Administered Dose 50 mg .ROUTE .STK-MED ONE Stop: 04/07/18 10:56 Succinylcholine Chloride (Quelicin) Confirm Administered Dose 200 mg .ROUTE .STK -MED ONE Stop: 03/18/18 19:48 Vancomycin HCl (Vancomycin) 1 gm IV .PHARMACY TO DOSE [facility] Stop: 03/21/18 16:00 Vancomycin HCl (Vancomycin) 1 gm IV .PHARMACY TO DOSE [facility] Stop: 04/16/18 14:00 - Exam Quality Assessment: Supplemental Oxygen General: Alert, Oriented, Cooperative, No Acute Distress Lungs: Normal Respiratory Effort, Decreased Breath Sounds (mild right lung base) Cardiovascular: Regular Rate, Regular Rhythm GI/Abdominal Exam: Soft, No Distention, Tender, Abnormal Bowel Sounds ( hypoactive ) Extremities: No Pedal Edema. No: Increased Warmth (right great toe ) Skin: Warm, Dry Psy/Mental Status: Alert, Normal Affect - Problem List Review Problem List Initiated/Reviewed/Updated: Yes - Plan Plan:: ASSESSMENT AND PLAN WOUND DEHISCENCE WITH UNDERLYING ABSCESS - status post exploratory laparotomy . Recent CT showed potential fluid collection though no definite abscess identified. Pain has been stable and vitals have been stable. No fevers. -Ciprofloxacin 400 mg IV every 12 hours -Zyvox IV -Consideration being given for ultrasound drainage of the fluid -Transitioning to Latham catheter today -Surgical follow-up per surgery team OSTEOMYELITIS RIGHT FIRST TOE - pain and swelling improved. Unable to obtain MRI. Arterial Doppler study showed evidence of significant peripheral arterial disease in the right leg. -Outpatient follow-up with interventional radiology in [place] after he has healed from recent surgeries -Antibiotic therapy as above ANEMIA OF ACUTE ILLNESS - patient has required frequent blood draws and has been critically ill and hospitalized for some time. Hemoglobin has slowly trended down. Blood transfusion ordered by surgical team today. SIGMOID COLON PERFORATION RESULTING IN ACUTE ABDOMEN AND SEPTIC SHOCK - postop course complicated by wound dehiscence as above. He is receiving nutritional support via TPN. Persistent difficulty with ileus. -Continue TPN initiated but still requiring a small amount of supplemental oxygen. -Post operative per surgical team -Pain control -Saline lock IV ACUTE HYPOXIC RESPIRATORY FAILURE - respiratory status stable with diuresis But still requiring a small amount of supplemental oxygen. Volume status seems slightly hypervolemic again today. -Coughing, deep breathing and suctioning as able -Furosemide IV, assess need daily, planning to give dose again today after transfusion COPD - [id number] smoking history but no evidence for exacerbation at this time. -Nebulized albuterol as needed -Vigorous pulmonary toilet during the postoperative period HISTORY OF LUNG AND PROSTATE CARCINOMA - lung cancer felt to be stable, had been receiving treatment for management of prostate carcinoma prior to admission MAINTENANCE ISSUES -DVT prophylaxis; SCUDs -GI prophylaxis; Protonix 40 mg daily -Sorto catheter; has been successfully removed -Nutrition; full liquids DISPOSITION - anticipate discharge to [facility] after the hospital stay. Stephon Christy M.D.
[2018-04-21] MEDS: Ciprofloxacin in D5W 400 MG in Premix Bag 1 BAG IV SCH ×4 (11:33→22:44)
[2018-04-21] MEDS ORDERED: Propofol 200 MG/20 ML SDV ONE (12:04)
[2018-04-21] MEDS ORDERED: fentaNYL 100 MCG/2 ML SDV ONE (12:04)
[2018-04-21] MEDS: Linezolid 600 MG in Premix Bag 1 BAG IV SCH ×2 (12:51→23:54)
[2018-04-21] MEDS ORDERED: Sodium Chloride 0.9% 500 ML ONE (13:39)
[2018-04-21] MEDS: diphenhydrAMINE 50 MG/ML SDV IVPUSH PRN (22:44)
[2018-04-22] MEDS: Magnesium Sulfate/Water 2 GM in Premix Bag 1 BAG IV SCH ×4 (02:24→20:09)
[2018-04-22] MEDS: Pantoprazole 40 MG Vial IV SCH (05:13)
[2018-04-22] MEDS: 1: AA 5%/Calcium/D15W/Lytes 1,000 ML with MVI, Adult with Vitamin K 10 ML, Chromium/Copp IV SCH ×6 (05:17→17:58)
[2018-04-22] MEDS: Albuterol/Ipratropium 3.0-0.5 MG/3 ML Neb Soln NEB SCH ×4 (07:03→20:09)
[2018-04-22] MEDS: Lactobacillus Rhamnosus GG (Probiotic) Cap PO SCH ×2 (07:59→20:09)
[2018-04-22] MEDS: Erythromycin Ethylsuccinate Susp 200 MG/5 ML 100 ML Bottle PO SCH ×3 (07:59→20:09)
[2018-04-22] MEDS ORDERED: Central Total Parenteral Nutrition Bag SCH (08:00)
--- NOTE | 2018-04-22 09:55 | PN ---
DATE OF SERVICE: 04/22/2018 SUBJECTIVE: Kodak slept well during the night. He is having less pain. Vital signs have been stable. He did have a Latham catheter put in yesterday. TPN rounds without difficulty. LABS: After receiving 1 unit of packed red blood cells, his hemoglobin was 9.3. BNP was 317. REVIEW OF SYSTEMS: Remainder of review of systems negative for any pertinent positives and negatives. OBJECTIVE: GENERAL: Kodak is a pleasant 77-year-old male. VITAL SIGNS: TPR is 98.5, 77, 16, blood pressure 123/60. HEENT: Negative. NECK: Supple. HEART: Regular rate and rhythm. LUNGS: Decreased breath sounds in bases. Oral intake 200; gastrostomy tube put out 225, it is patent. Ostomy, he had 25 mL out liquid stool. Wound VAC is on and incision healing well. EXTREMITIES: Without peripheral edema. ASSESSMENT: 1. Placement of Latham catheter 04/21/2018, Fredi Linn MD. 2. Allergic reaction to vancomycin. 3. Osteomyelitis of right great toe. 4. Insertion of left subclavian triple lumen, exploratory laparotomy, drainage of intraabdominal abscess, small bowel resection, small bowel strictureplasty, placement of Vicryl mesh for closure of fascial dehiscence and evisceration of the intraabdominal abscess and focal small-bowel stricture. Surgeon, Fredi Linn MD. Date of surgery is 04/07/2017. 5. Percutaneous endoscopy, gastrostomy tube placement for malnutrition with inadequate oral intake. Date of surgery is 04/02/2018. 6. Exploratory laparotomy, peritoneal lavage, sigmoid colon resection, Cristina's pouch, colostomy for acute abdomen and perforated viscus and sepsis. Date of surgery is 03/18/2018. Surgeon, Espinoza Adams MD. 7. Malnutrition, requiring TPN therapy. PLAN: 1. Clamp G-tube 90 minutes after erythromycin has been given. Continue same TPN rate and content. 2. Give 1 units of packed red blood cells. 3. Give Lasix 20 mg IV after packed red blood cells. 4. Check CBC, CMP, BNP in a.m. 5. Continue to work on his lung status. 6. We will evaluate p.r.n. or in a.m. Rula Morley PA-C /[id number]
[2018-04-22] MEDS: Ciprofloxacin in D5W 400 MG in Premix Bag 1 BAG IV SCH ×4 (10:31→23:27)
[2018-04-22] MEDS ORDERED: Furosemide 40 MG/4 ML VIAL IVPUSH ONE (11:00)
[2018-04-22] MEDS ORDERED: Furosemide 20 MG/2 ML VIAL IVPUSH ONE (11:00)
[2018-04-22] MEDS: Linezolid 600 MG in Premix Bag 1 BAG IV SCH (11:28)
--- NOTE | 2018-04-22 11:48 | PCM.PN ---
- General Info Date of Service: 04/22/18 Subjective Update: There were no acute events overnight. Pain has been fairly well-controlled and abdominal pain is stable to slightly improved today. Shortness of breath is minimal. No lower extremity edema. Toe remains painful if it's manipulated but is comfortable at rest. He has not had any fevers. He is receiving a blood transfusion this morning. 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 Functional Status: Reports: Pain Controlled, Tolerating Diet - Review of Systems General: Reports: Weakness. Denies: Fever Gastrointestinal: Reports: Abdominal Pain - Patient Data Vitals - Most Recent: Last Vital Signs Temp 37.2 C 04/22/18 11:19 Pulse 68 04/22/18 11:19 Resp 16 04/22/18 11:19 BP 113/62 04/22/18 11:19 Pulse Ox 93 L 04/22/18 11:19 Weight - Most Recent: 67.767 kg I&O - Last 24 Hours: Intake & Output 04/21/18 04/22/18 04/22/18 22:59 06:59 14:59 Intake Total 568 2574 240 Output Total 325 625 500 Balance 243 1949 -260 Lab Results Last 24 Hours: Laboratory Results - last 24 hr 04/21/18 04/22/18 04/22/18 Range/Units 04:00 04:20 04:20 WBC 12.5 H (4.5-11.0) K/uL RBC 3.25 L (4.30-5.90) M/uL Hgb 9.3 L (12.0-15.0) g/dL Hct 30.1 L (40.0-54.0) % MCV 93 (80-98) fL MCH 29 (27-31) pg MCHC 31 L (32-36) % Plt Count 428 H (150-400) K/uL Sodium 139 L (140-148) mmol/L Potassium 3.7 (3.6-5.2) mmol/L Chloride 103 (100-108) mmol/L Carbon Dioxide 29 (21-32) mmol/L Anion Gap 10.7 (5.0-14.0) mmol/L BUN 31 H (7-18) mg/dL Creatinine 1.0 (0.8-1.3) mg/dL Est Cr Clr Drug Dosing 59.53 mL/min Estimated GFR (MDRD) > 60 (>60) Glucose 124 H (74-106) mg/dL Calcium 8.3 L (8.5-10.1) mg/dL Phosphorus 4.1 (2.5-4.9) mg/dL Total Bilirubin 0.5 (0.2-1.0) mg/dL AST 18 (15-37) U/L ALT 32 (12-78) U/L Alkaline Phosphatase 126 H (46-116) U/L NT-Pro-B Natriuret Pep 317 (5-450) pg/mL Total Protein 5.2 L (6.4-8.2) g/dL Albumin 2.1 L (3.4-5.0) g/dL Globulin 3.1 (2.3-3.5) g/dL Albumin/Globulin Ratio 0.7 L (1.2-2.2) Blood Type O POSITIVE Gel Antibody Screen Negative Crossmatch See Detail 04/22/18 Range/Units 05:00 WBC (4.5-11.0) K/uL RBC (4.30-5.90) M/uL Hgb (12.0-15.0) g/dL Hct (40.0-54.0) % MCV (80-98) fL MCH (27-31) pg MCHC (32-36) % Plt Count (150-400) K/uL Sodium (140-148) mmol/L Potassium (3.6-5.2) mmol/L Chloride (100-108) mmol/L Carbon Dioxide (21-32) mmol/L Anion Gap (5.0-14.0) mmol/L BUN (7-18) mg/dL Creatinine (0.8-1.3) mg/dL Est Cr Clr Drug Dosing mL/min Estimated GFR (MDRD) (>60) Glucose (74-106) mg/dL Calcium (8.5-10.1) mg/dL Phosphorus (2.5-4.9) mg/dL Total Bilirubin (0.2-1.0) mg/dL AST (15-37) U/L ALT (12-78) U/L Alkaline Phosphatase (46-116) U/L NT-Pro-B Natriuret Pep Cancelled (5-450) pg/mL Total Protein (6.4-8.2) g/dL Albumin (3.4-5.0) g/dL Globulin (2.3-3.5) g/dL Albumin/Globulin Ratio (1.2-2.2) Blood Type Gel Antibody Screen Crossmatch Med Orders - Current: Current Medications Albuterol (Proventil Neb Soln) 2.5 mg NEB Q4H PRN PRN Reason: Dyspnea Last Admin: 04/17/18 05:03 Dose: 2.5 mg Albuterol/Ipratropium (Duoneb 3.0-0.5 Mg/3 Ml) 3 ml NEB QIDRT [facility] Last Admin: 04/22/18 10:36 Dose: 3 ml Calcium Carbonate/Glycine (Tums) 1,000 mg PO Q2H PRN PRN Reason: Indigestion Last Admin: 04/15/18 20:27 Dose: 1,000 mg Dimethicone/Zinc Oxide (Rash Relief-Zinc Oxide Lee) 0 gm TOP ASDIRECTED PRN PRN Reason: Rash Last Admin: 03/28/18 16:55 Dose: 1 spray Diphenhydramine HCl (Benadryl) 25 mg IVPUSH Q6H PRN PRN Reason: Itching Last Admin: 04/21/18 22:44 Dose: 25 mg Erythromycin Ethylsuccinate (Eryped 200) 250 mg PO TID@0800,1400,2000 [facility] Last Admin: 04/22/18 07:59 Dose: 250 mg Furosemide (Lasix) 40 mg IVPUSH ONETIME ONE Stop: 04/23/18 08:01 Heparin Sodium (Porcine) (Heparin Lock Flush 100 Units/Ml) 500 units FLUSH ASDIRECTED PRN PRN Reason: IV Use Last Admin: 04/22/18 05:16 Dose: 500 units Hydromorphone HCl (Dilaudid) 0.5 mg IVPUSH Q2H PRN PRN Reason: Pain Last Admin: 04/21/18 00:31 Dose: 0.5 mg Hydroxyzine HCl (Vistaril) 50 mg IM Q6H PRN PRN Reason: Pain Last Admin: 04/19/18 15:43 Dose: 50 mg Multivitamins/Minerals 10 ml/Chromium/Copper/Manganese/Seleni/Zn 1 ml/ Amino Ac/ Electrol/Dextrose/Calcium 1,011 mls @ 82 mls/hr IV .BY DURATION [facility] Last Admin: 04/21/18 17:48 Dose: 82 mls/hr Amino Ac/Electrol/Dextrose/Calcium (Clinimix E 07/08) 1,000 mls @ 82 mls/hr IV .BY DURATION [facility] Last Admin: 04/22/18 05:17 Dose: 82 mls/hr Ciprofloxacin/Dextrose 400 mg/ (Premix) 200 mls @ 200 mls/hr IV Q12H [facility] Last Admin: 04/22/18 10:31 Dose: 200 mls/hr Linezolid 600 mg/ Premix 300 mls @ 300 mls/hr IV Q12H [facility] Last Admin: 04/22/18 11:28 Dose: 300 mls/hr Magnesium Sulfate 2 gm/ Premix 50 mls @ 25 mls/hr IV Q6H [facility] Stop: 04/24/18 04:59 Last Admin: 04/22/18 07:59 Dose: 25 mls/hr Lactobacillus Rhamnosus (Culturelle) 1 cap PO BID [facility] Last Admin: 04/22/18 07:59 Dose: 1 cap Lorazepam (Ativan) 0.5 mg IVPUSH Q4H PRN PRN Reason: Nausea Morphine Sulfate (Morphine 10 Mg/0.5 Ml Oral Syringe) 5 mg PO Q4HWA PRN PRN Reason: Pain Last Admin: 04/20/18 19:59 Dose: 5 mg Non-Formulary Medication (Total Parenteral Nutrition, Central) 1,000 ml .XX .Continue Order [facility] Stop: 04/22/18 12:00 Ondansetron HCl (Zofran) 4 mg IVPUSH Q6H PRN PRN Reason: Nausea/Vomiting Pantoprazole Sodium (Protonix Iv) 40 mg IV Q24H [facility] Last Admin: 04/22/18 05:13 Dose: 40 mg Tramadol HCl (Ultram) 25 - 50 mg PO Q6H PRN PRN Reason: Pain Last Admin: 04/19/18 19:25 Dose: 50 mg Discontinued Medications Acetaminophen (Tylenol) 650 mg RECTAL Q4H PRN PRN Reason: Fever Acetaminophen (Tylenol) 650 mg PO Q4H PRN PRN Reason: Pain/Fever Last Admin: 04/05/18 20:14 Dose: 650 mg Acetaminophen (Tylenol) 1,000 mg GTUBE Q6H [facility] Last Admin: 04/17/18 14:02 Dose: 1,000 mg Acetaminophen (Tylenol) 1,000 mg GTUBE Q6H [facility] Last Admin: 04/21/18 02:39 Dose: 1,000 mg Albuterol/Ipratropium (Duoneb 3.0-0.5 Mg/3 Ml) 3 ml NEB Q4H PRN PRN Reason: Dyspnea Albuterol/Ipratropium (Duoneb 3.0-0.5 Mg/3 Ml) 3 ml NEB ONETIME ONE Stop: 04/07/18 10:31 Last Admin: 04/07/18 10:26 Dose: Not Given Bupivacaine HCl (Marcaine 0.5%) Confirm Administered Dose 50 ml .ROUTE .STK-MED ONE Stop: 04/07/18 12:06 Bupivacaine HCl (Marcaine 0.5%) Confirm Administered Dose 50 ml .ROUTE .STK-MED ONE Stop: 04/19/18 07:31 Bupivacaine HCl (Marcaine 0.5%) Confirm Administered Dose 50 ml .ROUTE .STK-MED ONE Stop: 04/21/18 07:22 Last Admin: 04/21/18 13:46 Dose: 3.5 ml Ropivacaine 34 ml/Dexamethasone 8 mg/Epinephrine HCl 0.4 mg/ Sodium Chloride 43.6 ml 0 ml NERVRT ASDIRECTED [facility] Last Admin: 04/07/18 16:01 Dose: 80 syringe Dexamethasone (Dexamethasone) Confirm Administered Dose 4 mg .ROUTE .STK-MED ONE Stop: 03/18/18 19:48 Dexamethasone (Dexamethasone) Confirm Administered Dose 4 mg .ROUTE .STK-MED ONE Stop: 04/07/18 10:56 Epinephrine HCl (Adrenalin) Confirm Administered Dose 1 mg .ROUTE .STK-MED ONE Stop: 03/18/18 21:07 Erythromycin (Jh-Tab) 250 mg PO TID@0730,1630,2130 [facility] Last Admin: 04/17/18 10:03 Dose: 250 mg Erythromycin (Jh-Tab) 250 mg PO TID@0800,1400,2000 [facility] Stop: 04/18/18 08:01 Last Admin: 04/18/18 08:16 Dose: 250 mg Erythromycin Ethylsuccinate (Eryped 400) 125 mg PO Q6H [facility] Last Admin: 04/07/18 15:14 Dose: Not Given Fentanyl (Sublimaze) Confirm Administered Dose 250 mcg .ROUTE .STK-MED ONE Stop: 03/18/18 19:48 Fentanyl (Sublimaze) Confirm Administered Dose 250 mcg .ROUTE .STK-MED ONE Stop: 04/02/18 12:59 Fentanyl (Sublimaze) Confirm Administered Dose 250 mcg .ROUTE .STK-MED ONE Stop: 04/07/18 10:56 Fentanyl (Sublimaze) Confirm Administered Dose 100 mcg .ROUTE .STK-MED ONE Stop: 04/21/18 12:05 Furosemide (Lasix) 20 mg IVPUSH ONETIME ONE Stop: 03/23/18 09:46 Last Admin: 03/23/18 10:18 Dose: 20 mg Furosemide (Lasix) 20 mg IVPUSH NOW ONE Stop: 03/25/18 10:01 Last Admin: 03/25/18 10:17 Dose: 20 mg Furosemide (Lasix) 20 mg IVPUSH ONETIME ONE Stop: 03/26/18 09:16 Last Admin: 03/26/18 09:10 Dose: 20 mg Furosemide (Lasix) 20 mg IVPUSH ONETIME ONE Stop: 03/26/18 16:01 Last Admin: 03/26/18 18:28 Dose: Not Given Furosemide (Lasix) 20 mg IVPUSH NOW ONE Stop: 03/27/18 10:01 Last Admin: 03/27/18 10:26 Dose: 20 mg Furosemide (Lasix) 20 mg IVPUSH ONETIME ONE Stop: 03/30/18 13:11 Last Admin: 03/30/18 13:36 Dose: 20 mg Furosemide (Lasix) 20 mg IVPUSH NOW ONE Stop: 03/31/18 11:55 Last Admin: 03/31/18 13:04 Dose: 20 mg Furosemide (Lasix) 20 mg IVPUSH NOW ONE Stop: 04/01/18 12:05 Last Admin: 04/01/18 12:43 Dose: 20 mg Furosemide (Lasix) 20 mg IVPUSH NOW ONE Stop: 04/02/18 15:46 Last Admin: 04/02/18 15:53 Dose: 20 mg Furosemide (Lasix) 40 mg IVPUSH NOW ONE Stop: 04/03/18 09:01 Last Admin: 04/03/18 09:45 Dose: 40 mg Furosemide (Lasix) 40 mg IVPUSH NOW ONE Stop: 04/04/18 15:31 Last Admin: 04/04/18 15:55 Dose: 40 mg Furosemide (Lasix) 40 mg IVPUSH NOW ONE Stop: 04/05/18 09:01 Last Admin: 04/05/18 10:15 Dose: 40 mg Furosemide (Lasix) 40 mg IVPUSH ONETIME ONE Stop: 04/08/18 12:01 Last Admin: 04/08/18 11:01 Dose: 40 mg Furosemide (Lasix) 40 mg IVPUSH ONETIME STA Stop: 04/09/18 06:48 Last Admin: 04/09/18 10:16 Dose: Not Given Furosemide (Lasix) 20 mg IVPUSH ONETIME ONE Stop: 04/09/18 12:01 Last Admin: 04/09/18 13:43 Dose: Not Given Furosemide (Lasix) 40 mg IVPUSH ONETIME STA Stop: 04/09/18 10:08 Last Admin: 04/09/18 10:09 Dose: 40 mg Furosemide (Lasix) Confirm Administered Dose 40 mg .ROUTE .STK-MED ONE Stop: 04/09/18 10:08 Last Admin: 04/09/18 10:16 Dose: 40 mg Furosemide (Lasix) 40 mg IVPUSH ONETIME ONE Stop: 04/09/18 16:01 Last Admin: 04/09/18 15:54 Dose: 40 mg Furosemide (Lasix) 40 mg IVPUSH ONETIME ONE Stop: 04/10/18 12:01 Last Admin: 04/10/18 14:03 Dose: 40 mg Furosemide (Lasix) 20 mg IVPUSH ONETIME ONE Stop: 04/10/18 20:01 Last Admin: 04/10/18 21:10 Dose: 20 mg Furosemide (Lasix) 40 mg IVPUSH NOW ONE Stop: 04/11/18 11:31 Last Admin: 04/11/18 12:58 Dose: 40 mg Furosemide (Lasix) 40 mg IVPUSH NOW ONE Stop: 04/12/18 11:21 Last Admin: 04/12/18 13:28 Dose: 40 mg Furosemide (Lasix) Confirm Administered Dose 40 mg .ROUTE .STK-MED ONE Stop: 04/12/18 13:27 Last Admin: 04/12/18 13:52 Dose: Not Given Furosemide (Lasix) 40 mg IVPUSH NOW ONE Stop: 04/13/18 08:31 Last Admin: 04/13/18 08:42 Dose: 40 mg Furosemide (Lasix) 40 mg IVPUSH NOW ONE Stop: 04/14/18 10:01 Last Admin: 04/14/18 10:09 Dose: 40 mg Furosemide (Lasix) 20 mg IV ONETIME ONE Stop: 04/17/18 12:31 Last Admin: 04/17/18 12:22 Dose: 20 mg Furosemide (Lasix) 20 mg IVPUSH ONETIME ONE Stop: 04/20/18 12:55 Last Admin: 04/20/18 13:57 Dose: 20 mg Furosemide (Lasix) 20 mg IVPUSH ONETIME ONE Stop: 04/21/18 10:01 Last Admin: 04/21/18 09:37 Dose: 20 mg Furosemide (Lasix) 40 mg IVPUSH ONETIME ONE Stop: 04/21/18 10:01 Last Admin: 04/21/18 09:52 Dose: 40 mg Furosemide (Lasix) 20 mg IVPUSH ONETIME ONE Stop: 04/22/18 11:01 Furosemide (Lasix) 40 mg IVPUSH ONETIME ONE Stop: 04/22/18 11:01 Last Admin: 04/22/18 10:32 Dose: 40 mg Glycopyrrolate (Robinul) Confirm Administered Dose 1 mg .ROUTE .STK-MED ONE Stop: 03/18/18 19:48 Glycopyrrolate (Robinul) Confirm Administered Dose 1 mg .ROUTE .STK-MED ONE Stop: 04/07/18 10:56 Heparin Sodium (Porcine) (Heparin Sodium) Confirm Administered Dose 5,000 units .ROUTE .STK-MED ONE Stop: 03/18/18 19:51 Heparin Sodium (Porcine) (Heparin Lock Flush 100 Units/Ml) Confirm Administered Dose 500 units .ROUTE .STK-MED ONE Stop: 03/22/18 12:17 Last Admin: 03/22/18 12:30 Dose: Not Given Heparin Sodium (Porcine) (Heparin Sodium) Confirm Administered Dose 5,000 units .ROUTE .STK-MED ONE Stop: 03/24/18 19:52 Last Admin: 03/24/18 20:33 Dose: 5,000 units Heparin Sodium (Porcine) (Heparin Lock Flush 100 Units/Ml) Confirm Administered Dose 1,000 units .ROUTE .STK-MED ONE Stop: 04/07/18 12:06 Last Admin: 04/07/18 14:30 Dose: 500 units Heparin Sodium (Porcine) (Heparin Lock Flush 100 Units/Ml) Confirm Administered Dose 1,500 units .ROUTE .K-MED ONE Stop: 04/19/18 07:31 Heparin Sodium (Porcine) (Heparin Lock Flush 100 Units/Ml) Confirm Administered Dose 1,000 units .ROUTE .STK-MED ONE Stop: 04/21/18 07:22 Last Admin: 04/21/18 13:46 Dose: 1,000 units Heparin Sodium (Porcine) (Heparin Lock Flush 100 Units/Ml) Confirm Administered Dose 500 units .ROUTE .STK-MED ONE Stop: 04/21/18 07:23 Last Admin: 04/21/18 13:46 Dose: 500 units Hydrocortisone Sodium Succinate (Solu-Cortef) 100 mg IVPUSH Q12H [facility] Last Admin: 03/28/18 20:15 Dose: 100 mg Hydrocortisone Sodium Succinate (Solu-Cortef) 100 mg IVPUSH DAILY [facility] Last Admin: 03/30/18 13:39 Dose: Not Given Hydromorphone HCl (Dilaudid) 0.5 mg IVPUSH ONETIME ONE Stop: 03/18/18 17:43 Last Admin: 03/18/18 17:47 Dose: 0.5 mg Hydromorphone HCl (Dilaudid) 1 mg IVPUSH ONETIME ONE Stop: 03/18/18 18:18 Last Admin: 03/18/18 18:27 Dose: 1 mg Hydromorphone HCl (Dilaudid) 0.5 mg IVPUSH ONETIME ONE Stop: 04/16/18 09:58 Last Admin: 04/16/18 10:31 Dose: 0.5 mg Hydroxyzine HCl (Vistaril) 100 mg IM Q6H PRN PRN Reason: Pain Last Admin: 04/11/18 08:49 Dose: 100 mg Sodium Chloride (Normal Saline) 1,000 mls @ 1,000 mls/hr IV ASDIRECTED [facility] Last Admin: 03/18/18 17:47 Dose: 1,000 mls/hr Sodium Chloride (Normal Saline) 1,000 mls @ 999 mls/hr IV ASDIRECTED [facility] Last Admin: 03/18/18 19:31 Dose: 999 mls/hr Meropenem 500 mg/ Sodium (Chloride) 50 mls @ 100 mls/hr IV ONETIME ONE Stop: 03/18/18 19:09 Last Admin: 03/18/18 19:01 Dose: 100 mls/hr Sodium Chloride (Normal Saline) Confirm Administered Dose 50 mls @ as directed .ROUTE .STK-MED ONE Stop: 03/18/18 19:40 Last Admin: 03/18/18 20:19 Dose: Not Given Aztreonam 2 gm/ Sodium (Chloride) 50 mls @ 100 mls/hr IV ONETIME ONE Stop: 03/18/18 20:01 Last Admin: 03/18/18 20:44 Dose: 100 mls/hr Meropenem 500 mg/ Sodium (Chloride) 50 mls @ 100 mls/hr IV ONETIME ONE Stop: 03/18/18 20:00 Last Admin: 03/18/18 19:40 Dose: 100 mls/hr Sodium Chloride (Normal Saline) Confirm Administered Dose 250 mls @ as directed .ROUTE .ST-MED ONE Stop: 03/18/18 19:59 Lactated Ringer's (Ringers, Lactated) Confirm Administered Dose 1,000 mls @ as directed .ROUTE .ST-MED ONE Stop: 03/18/18 19:59 Sodium Chloride (Normal Saline) Confirm Administered Dose 500 mls @ as directed .ROUTE .STK-MED ONE Stop: 03/18/18 19:59 Norepinephrine Bitartrate 8 mg (/ Dextrose/Water) 258 mls @ 3.87 mls/hr IV TITRATE [facility]; Protocol Last Admin: 03/19/18 11:45 Dose: 12 mcg/min, 23.22 mls/hr Lactated Ringer's (Ringers, Lactated) Confirm Administered Dose 1,000 mls @ as directed .ROUTE .ST-MED ONE Stop: 03/18/18 21:42 Propofol (Diprivan 100 Ml) 100 mls @ 2.082 mls/hr IV TITRATE [facility]; Protocol Last Titration: 03/27/18 06:35 Dose: 10 mcg/kg/min, 4.164 mls/hr Aztreonam 1 gm/ Sodium (Chloride) 50 mls @ 100 mls/hr IV Q8H [facility] Last Admin: 03/19/18 05:29 Dose: 100 mls/hr Potassium Chloride/Dextrose/Sod Cl (D5 1/2 Ns W/ 20 Meq/L Kcl) 1,000 mls @ 150 mls/hr IV ASDIRECTED [facility] Last Admin: 03/18/18 23:11 Dose: 150 mls/hr Meropenem 1 gm/ Sodium (Chloride) 50 mls @ 100 mls/hr IV Q12H [facility] Stop: 03/29/18 22:00 Last Admin: 03/29/18 20:10 Dose: 100 mls/hr Lactated Ringer's (Ringers, Lactated) 1,000 mls @ 500 mls/hr IV ASDIRECTED [facility] Last Admin: 03/19/18 01:23 Dose: 500 mls/hr Vasopressin 100 units/ (Dextrose/Water) 255 mls @ 1.53 mls/hr IV TITRATE [facility]; Protocol Stop: 03/21/18 13:00 Last Titration: 03/21/18 11:03 Dose: 0.02 units/min, 3.06 mls/hr Lactated Ringer's (Ringers, Lactated) 1,000 mls @ 500 mls/hr IV BOLUS [facility] Stop: 03/19/18 05:29 Last Admin: 03/19/18 04:02 Dose: 500 mls/hr Aztreonam/Dextrose 1 gm/ (Premix) 50 mls @ 100 mls/hr IV Q8H [facility] Last Admin: 03/28/18 05:26 Dose: 100 mls/hr Lactated Ringer's (Ringers, Lactated) 1,000 mls @ 500 mls/hr IV .BOLUS ONE Stop: 03/19/18 14:59 Last Admin: 03/19/18 14:27 Dose: 500 mls/hr Lactated Ringer's (Ringers, Lactated) 1,000 mls @ 150 mls/hr IV ASDIRECTED [facility] Last Admin: 03/21/18 11:53 Dose: 150 mls/hr Norepinephrine Bitartrate 8 mg (/ Dextrose/Water) 250 mls @ 3.75 mls/hr IV TITRATE [facility]; Protocol Last Titration: 03/27/18 09:04 Dose: 4 mcg/min, 7.5 mls/hr Magnesium Sulfate 2 gm/ Premix 50 mls @ 25 mls/hr IV Q6H [facility] Stop: 03/20/18 17:59 Last Admin: 03/20/18 16:30 Dose: 25 mls/hr Vancomycin HCl 1.25 gm/ Sodium (Chloride) 250 mls @ 170 mls/hr IV Q24H [facility] Last Admin: 03/22/18 10:06 Dose: 170 mls/hr Vasopressin 40 units/ Dextrose (/Water) 100 mls @ 3 mls/hr IV TITRATE [facility]; Protocol Last Titration: 03/23/18 01:00 Dose: 0 units/min, 0 mls/hr Potassium Chloride 20 meq/ (Premix) 100 mls @ 50 mls/hr IV Q2H [facility] Stop: 03/21/18 22:59 Last Admin: 03/21/18 22:20 Dose: 50 mls/hr Potassium Chloride 20 meq/ (Premix) 100 mls @ 50 mls/hr IV Q2H [facility] Stop: 03/22/18 12:59 Last Admin: 03/22/18 11:30 Dose: 50 mls/hr Potassium Chloride 20 meq/ (Premix) 100 mls @ 50 mls/hr IV Q2H [facility] Stop: 03/22/18 17:29 Last Admin: 03/22/18 16:13 Dose: 50 mls/hr Potassium Chloride (Kcl 20 Meq In Water 100 Ml) 100 mls @ 50 mls/hr IV Q2H [facility] Stop: 03/23/18 01:59 Last Admin: 03/23/18 00:53 Dose: 50 mls/hr Potassium Chloride 40 meq/ (Premix) 100 mls @ 25 mls/hr IV ONETIME ONE Stop: 03/23/18 14:29 Last Admin: 03/23/18 10:31 Dose: 25 mls/hr Vancomycin HCl 1.4 gm/ Sodium (Chloride) 250 mls @ 170 mls/hr IV Q24H [facility] Last Admin: 03/24/18 11:13 Dose: 170 mls/hr Multivitamins/Minerals 10 ml/Chromium/Copper/Manganese/Seleni/Zn 1 ml/ Amino Ac/ Electrol/Dextrose/Calcium 1,011 mls @ 75 mls/hr IV .BY DURATION [facility] Last Admin: 03/25/18 22:34 Dose: 75 mls/hr Amino Ac/Electrol/Dextrose/Calcium (Clinimix E 07/08) 1,000 mls @ 75 mls/hr IV .BY DURATION [facility] Last Admin: 03/25/18 08:11 Dose: 75 mls/hr Vasopressin 100 units/ (Dextrose/Water) 255 mls @ 1.53 mls/hr IV TITRATE [facility]; Protocol Last Titration: 03/25/18 11:51 Dose: 0 units/min, 0 mls/hr Potassium Chloride 20 meq/ (Premix) 100 mls @ 50 mls/hr IV Q2H [facility] Stop: 03/24/18 13:59 Last Admin: 03/24/18 12:13 Dose: 50 mls/hr Multivitamins/Minerals 10 ml/Chromium/Copper/Manganese/Seleni/Zn 1 ml/ Amino Ac/ Electrol/Dextrose/Calcium 1,011 mls @ 75 mls/hr IV .BY DURATION [facility] Last Admin: 03/29/18 06:48 Dose: 75 mls/hr Amino Ac/Electrol/Dextrose/Calcium (Clinimix E 5/15) 1,000 mls @ 75 mls/hr IV .BY DURATION [facility] Last Admin: 03/29/18 20:12 Dose: 75 mls/hr Heparin Sodium (Porcine) 5,000 (units/ Sodium Chloride) 501 mls @ 5 mls/hr IV ASDIRECTED [facility] Last Admin: 03/27/18 12:50 Dose: 5 mls/hr Sodium Chloride (Normal Saline) 1,000 mls @ 50 mls/hr IV ASDIRECTED [facility] Last Admin: 03/30/18 13:36 Dose: 50 mls/hr Dextrose/Sodium Chloride (Dextrose 5%-1/2 Ns) 1,000 mls @ 75 mls/hr IV ASDIRECTED [facility] Last Admin: 03/31/18 23:53 Dose: 75 mls/hr Albumin Human (Albumin 25%) 25 gm in 100 mls @ 25 mls/hr IV Q24H [facility] Stop: 04/02/18 12:59 Last Admin: 04/01/18 08:13 Dose: 25 mls/hr Potassium Phosphate 20 mmole/ (Sodium Chloride) 256.6667 mls @ 85 mls/hr IV Q3H [facility] Stop: 04/01/18 18:59 Last Admin: 04/01/18 18:37 Dose: 85 mls/hr Dextrose/Sodium Chloride (Dextrose 5%-1/2 Ns) 1,000 mls @ 80 mls/hr IV ASDIRECTED [facility] Last Admin: 04/03/18 06:40 Dose: 80 mls/hr Cefazolin Sodium/Dextrose 2 gm (/ Premix) 50 mls @ 100 mls/hr IV ONCALL ONE Stop: 04/02/18 11:59 Last Admin: 04/02/18 13:59 Dose: 100 mls/hr Potassium Acetate 20 meq/ (Sodium Chloride) 110 mls @ 55 mls/hr IV Q2H [facility] Stop: 04/02/18 11:59 Last Admin: 04/02/18 10:10 Dose: 55 mls/hr Magnesium Sulfate 2 gm/ Premix 50 mls @ 25 mls/hr IV Q6H [facility] Stop: 04/05/18 07:59 Last Admin: 04/03/18 12:11 Dose: 25 mls/hr Albumin Human (Albumin 25%) 25 gm in 100 mls @ 25 mls/hr IV ONETIME ONE Stop: 04/02/18 17:59 Last Admin: 04/02/18 15:30 Dose: 25 mls/hr Potassium Chloride 20 meq/Lidocaine HCl 2 ml/ Sodium Chloride 112 mls @ 56 mls/ hr IV Q2H [facility] Stop: 04/03/18 17:59 Last Admin: 04/03/18 17:04 Dose: 56 mls/hr Magnesium Sulfate 2 gm/ Premix 50 mls @ 25 mls/hr IV Q6H [facility] Stop: 04/08/18 03:59 Last Admin: 04/07/18 15:14 Dose: Not Given Potassium Phosphate 15 mmole/ (Sodium Chloride) 255 mls @ 128 mls/hr IV Q2H [facility] Stop: 04/06/18 13:59 Last Admin: 04/06/18 12:49 Dose: 128 mls/hr Dextrose/Lactated Ringer's (Dextrose 5%-Lactated Ringers) 1,000 mls @ 100 mls/ hr IV ASDIRECTED [facility] Last Admin: 04/07/18 08:44 Dose: 100 mls/hr Meropenem 500 mg/ Sodium (Chloride) 50 mls @ 100 mls/hr IV ONCALL ONE Stop: 04/07/18 11:59 Last Admin: 04/07/18 15:13 Dose: Not Given Linezolid (Zyvox) Confirm Administered Dose 300 mls @ as directed .ROUTE .STK- MED ONE Stop: 04/07/18 15:26 Lactated Ringer's (Ringers, Lactated) Confirm Administered Dose 1,000 mls @ as directed .ROUTE .STK-MED ONE Stop: 04/07/18 15:35 Linezolid 600 mg/ Premix 300 mls @ 300 mls/hr IV ONETIME ONE Stop: 04/07/18 17:29 Last Admin: 04/07/18 16:25 Dose: 300 mls/hr Dextrose/Lactated Ringer's (Dextrose 5%-Lactated Ringers) 1,000 mls @ 175 mls/ hr IV ASDIRECTED [facility] Last Admin: 04/08/18 06:21 Dose: 175 mls/hr Linezolid 600 mg/ Premix 300 mls @ 300 mls/hr IV Q12H [facility] Last Admin: 04/10/18 03:46 Dose: 300 mls/hr Meropenem 500 mg/ Sodium (Chloride) 50 mls @ 100 mls/hr IV Q8H [facility] Last Admin: 04/11/18 06:23 Dose: 100 mls/hr Magnesium Sulfate 2 gm/ Premix 50 mls @ 25 mls/hr IV Q6H [facility] Stop: 04/09/18 13:59 Last Admin: 04/09/18 11:40 Dose: 25 mls/hr Dextrose/Lactated Ringer's (Dextrose 5%-Lactated Ringers) 1,000 mls @ 100 drops /hr IV ASDIRECTED [facility] Last Admin: 04/09/18 11:39 Dose: 100 drops/hr Albumin Human (Albumin 25%) 25 gm in 100 mls @ 25 mls/hr IV Q24H [facility] Stop: 04/12/18 13:59 Last Admin: 04/12/18 09:28 Dose: 25 mls/hr Albumin Human (Albumin 25%) 25 gm in 100 mls @ 25 mls/hr IV Q24H [facility] Stop: 04/12/18 17:59 Last Admin: 04/12/18 14:19 Dose: 25 mls/hr Dextrose/Lactated Ringer's (Dextrose 5%-Lactated Ringers) 1,000 mls @ 25 mls/ hr IV ASDIRECTED [facility] Sodium Chloride (Normal Saline) 1,000 mls @ 0 mls/hr IV ASDIRECTED [facility] Potassium Phosphate 22.5 mmole (/ Sodium Chloride) 257.5 mls @ 86 mls/hr IV Q3H [facility] Stop: 04/10/18 15:59 Last Admin: 04/10/18 14:47 Dose: 86 mls/hr Calcium Gluconate 1 gm/ Sodium (Chloride) 110 mls @ 100 mls/hr IV Q6H [facility] Stop: 04/10/18 18:05 Last Admin: 04/10/18 16:21 Dose: 100 mls/hr Doxycycline Hyclate 100 mg/ (Sodium Chloride) 100 mls @ 100 mls/hr IV Q12H [facility] Last Admin: 04/16/18 12:08 Dose: 100 mls/hr Acetaminophen 1,000 mg/ Premix 100 mls @ 400 mls/hr IV Q6H [facility] Stop: 04/12/18 06:44 Last Admin: 04/12/18 05:47 Dose: 400 mls/hr Potassium Chloride 20 meq/ (Premix) 100 mls @ 50 mls/hr IV Q2H [facility] Stop: 04/12/18 14:59 Last Admin: 04/12/18 13:29 Dose: 50 mls/hr Potassium Chloride 40 meq/ (Premix) 100 mls @ 25 mls/hr IV ONETIME ONE Stop: 04/12/18 12:19 Potassium Chloride 40 meq/ (Premix) 100 mls @ 25 mls/hr IV ONETIME ONE Stop: 04/12/18 20:59 Last Admin: 04/12/18 17:45 Dose: 25 mls/hr Potassium Phosphate 25 mmole/ (Sodium Chloride) 108.3333 mls @ 27 mls/hr IV Q4H [facility] Stop: 04/13/18 21:29 Last Admin: 04/13/18 18:13 Dose: 27 mls/hr Magnesium Sulfate 2 gm/ Premix 50 mls @ 25 mls/hr IV Q6H [facility] Stop: 04/17/18 04:59 Last Admin: 04/15/18 08:34 Dose: 25 mls/hr Vancomycin HCl 1.35 gm/ Sodium (Chloride) 250 mls @ 167 mls/hr IV ONETIME ONE Stop: 04/16/18 15:29 Last Admin: 04/16/18 15:04 Dose: 167 mls/hr Vancomycin HCl 1 gm/ Sodium (Chloride) 250 mls @ 167 mls/hr IV Q12H [facility] Last Admin: 04/17/18 02:21 Dose: 167 mls/hr Magnesium Sulfate 2 gm/ Premix 50 mls @ 25 mls/hr IV Q6H [facility] Stop: 04/21/18 02:59 Last Admin: 04/18/18 08:02 Dose: Not Given Magnesium Sulfate 2 gm/ Premix 50 mls @ 25 mls/hr IV Q6H [facility] Stop: 04/18/18 17:59 Last Admin: 04/18/18 16:28 Dose: 25 mls/hr Potassium Chloride 20 meq/ (Premix) 100 mls @ 50 mls/hr IV Q2H [facility] Stop: 04/19/18 08:59 Last Admin: 04/19/18 07:37 Dose: 50 mls/hr Sodium Chloride (Normal Saline) 71 mls @ 3.1 mls/sec IV ASDIRECTED STA Stop: 04/19/18 08:28 Last Admin: 04/19/18 09:15 Dose: 3.1 mls/sec Sodium Chloride (Normal Saline) Confirm Administered Dose 500 mls @ as directed .ROUTE .STK-MED ONE Stop: 04/21/18 13:40 Insulin Human Lispro (Humalog) 0 unit SUBCUT Q6H [facility]; Protocol Last Admin: 03/30/18 16:32 Dose: Not Given Insulin Human Lispro (Humalog) 0 unit SUBCUT Q6H [facility]; Protocol Last Admin: 03/31/18 03:52 Dose: Not Given Insulin Human Lispro (Humalog) 0 unit SUBCUT QIDACANDBED [facility]; Protocol Stop: 04/12/18 11:01 Last Admin: 03/31/18 13:17 Dose: Not Given Iopamidol (Isovue-300 (61%)) 100 ml IV . DIRECTED STA Stop: 04/19/18 08:28 Last Admin: 04/19/18 09:15 Dose: 100 ml Lidocaine/Epinephrine (Xylocaine 1% With Epinephrine 1:100,000) Confirm Administered Dose 50 ml .ROUTE .STK-MED ONE Stop: 04/07/18 12:06 Lidocaine/Epinephrine (Xylocaine 1% With Epinephrine 1:100,000) Confirm Administered Dose 50 ml .ROUTE .STK-MED ONE Stop: 04/19/18 07:31 Lidocaine/Epinephrine (Xylocaine 1% With Epinephrine 1:100,000) Confirm Administered Dose 50 ml .ROUTE .STK-MED ONE Stop: 04/21/18 07:22 Last Admin: 04/21/18 13:46 Dose: 3.5 ml Linezolid (Zyvox) 600 mg IRR .STK-MED ONE Stop: 04/07/18 16:06 Last Admin: 04/07/18 16:05 Dose: 600 mg Loperamide HCl (Imodium) 2 mg PO ASDIRECTED PRN PRN Reason: DIARRHEA Melatonin (Melatonin) 9 mg PO BEDTIME [facility] Last Admin: 04/06/18 21:40 Dose: 9 mg Meropenem (Merrem) Confirm Administered Dose 500 mg .ROUTE .STK-MED ONE Stop: 03/18/18 19:40 Last Admin: 03/18/18 20:19 Dose: Not Given Meropenem (Merrem) Confirm Administered Dose 500 mg .ROUTE .STK-MED ONE Stop: 04/07/18 14:38 Last Admin: 04/07/18 16:00 Dose: 500 mg Meropenem (Merrem) Confirm Administered Dose 500 mg .ROUTE .STK-MED ONE Stop: 04/07/18 15:08 Last Admin: 04/07/18 16:05 Dose: 500 mg Methylprednisolone Sodium Succinate (Solu-Medrol) 125 mg IVPUSH ONETIME ONE Stop: 04/17/18 05:49 Last Admin: 04/17/18 06:02 Dose: 125 mg Midazolam HCl (Versed 1 Mg/Ml) Confirm Administered Dose 2 mg .ROUTE .STK-MED ONE Stop: 04/02/18 12:59 Morphine Sulfate (Morphine) 4 mg IVPUSH Q2H PRN PRN Reason: Pain Last Admin: 03/29/18 07:34 Dose: 4 mg Morphine Sulfate (Morphine Manufacturing Accountant 150 Mg In 30 Ml) 0 mg IV ASDIRECTED PRN; Protocol PRN Reason: Pain Last Admin: 04/07/18 10:00 Dose: 150 mg Morphine Sulfate (Morphine Manufacturing Accountant 150 Mg In 30 Ml) 0 mg IV ASDIRECTED PRN; Protocol PRN Reason: Pain Naloxone HCl (Narcan) 0.1 mg IV ASDIRECTED PRN PRN Reason: decreased respiratory rate Neostigmine Methylsulfate (Neostigmine) Confirm Administered Dose 5 mg .ROUTE .STK-MED ONE Stop: 03/18/18 19:48 Neostigmine Methylsulfate (Neostigmine) Confirm Administered Dose 5 mg .ROUTE .STK-MED ONE Stop: 04/07/18 10:56 Non-Formulary Medication (Total Parenteral Nutrition, Central) 1,000 ml .XX .Continue Order [facility]; Protocol Stop: 03/24/18 11:31 Non-Formulary Medication (Total Parenteral Nutrition, Central) 1,000 ml .XX .Continue Order [facility]; Protocol Non-Formulary Medication (Total Parenteral Nutrition, Central) 1,000 ml .XX .Continue Order [facility]; Protocol Non-Formulary Medication (Total Parenteral Nutrition, Central) 1,000 ml .XX .Continue Order [facility]; Protocol Stop: 03/28/18 12:00 Non-Formulary Medication (Total Parenteral Nutrition, Central) 1,000 ml .XX .Continue Order [facility] Stop: 04/08/18 08:01 Non-Formulary Medication (Total Parenteral Nutrition, Central) 1,000 ml .XX .Continue Order [facility] Stop: 04/09/18 10:00 Non-Formulary Medication (Total Parenteral Nutrition, Central) 1,000 ml .XX .Continue Order [facility] Stop: 04/10/18 10:00 Non-Formulary Medication (Total Parenteral Nutrition, Central) 1,000 ml .XX .Continue Order [facility] Stop: 04/11/18 10:00 Non-Formulary Medication (Total Parenteral Nutrition, Central) 1,000 ml .XX .Continue Order [facility] Stop: 04/12/18 12:00 Non-Formulary Medication (Total Parenteral Nutrition, Central) 1,000 ml .XX .Continue Order [facility] Stop: 04/13/18 12:00 Non-Formulary Medication (Total Parenteral Nutrition, Central) 1,000 ml .XX .Continue Order [facility] Stop: 04/15/18 07:46 Non-Formulary Medication (Total Parenteral Nutrition, Central) 1,000 ml .XX .Continue Order [facility] Stop: 04/16/18 10:00 Non-Formulary Medication (Total Parenteral Nutrition, Central) 1,000 ml .XX .Continue Order [facility] Stop: 04/17/18 12:00 Non-Formulary Medication (Total Parenteral Nutrition, Central) 1,000 ml .XX .Continue Order [facility] Stop: 04/18/18 07:01 Non-Formulary Medication (Total Parenteral Nutrition, Central) 1,000 ml .XX .Continue Order [facility] Stop: 04/19/18 08:01 Non-Formulary Medication (Total Parenteral Nutrition, Central) 1,000 ml .XX .Continue Order [facility] Stop: 04/20/18 12:00 Non-Formulary Medication (Total Parenteral Nutrition, Central) 1,000 ml .XX .Continue Order [facility] Stop: 04/21/18 10:00 Nystatin (Mycostatin) 5 ml PO QID [facility] Last Admin: 04/04/18 15:25 Dose: 5 ml Ondansetron HCl (Zofran) 4 mg IVPUSH ONETIME ONE Stop: 03/18/18 18:18 Last Admin: 03/18/18 18:27 Dose: 4 mg Ondansetron HCl (Zofran) Confirm Administered Dose 4 mg .ROUTE .STK-MED ONE Stop: 03/18/18 19:48 Ondansetron HCl (Zofran) Confirm Administered Dose 4 mg .ROUTE .STK-MED ONE Stop: 04/07/18 10:56 Oxycodone HCl (Oxycodone) 5 mg PO Q4H PRN PRN Reason: Pain (moderate 4-6) Last Admin: 04/06/18 05:19 Dose: 5 mg Pantoprazole Sodium (Protonix Iv) 40 mg IVPUSH DAILY [facility] Last Admin: 03/28/18 08:34 Dose: 40 mg Pantoprazole Sodium (Protonix) 40 mg PO ACBREAKFAST [facility] Last Admin: 04/07/18 08:10 Dose: 40 mg Phenylephrine HCl (Isaías-Synephrine) Confirm Administered Dose 10 mg .ROUTE .STK- MED ONE Stop: 03/18/18 20:05 Potassium Chloride (Klor-Con M20) 40 meq PO ONETIME ONE Stop: 04/03/18 13:16 Last Admin: 04/03/18 14:33 Dose: 40 meq Potassium Chloride (Klor-Con M20) 40 meq PO ONETIME ONE Stop: 04/03/18 17:01 Last Admin: 04/03/18 20:55 Dose: 40 meq Potassium Chloride (Klor-Con M20) 40 meq PO ONETIME ONE Stop: 04/04/18 09:01 Last Admin: 04/04/18 09:34 Dose: 40 meq Potassium Chloride (Klor-Con M20) 40 meq PO ONETIME ONE Stop: 04/04/18 17:01 Last Admin: 04/04/18 17:08 Dose: 40 meq Potassium Chloride (Klor-Con M20) 40 meq PO ONETIME ONE Stop: 04/05/18 09:01 Last Admin: 04/05/18 10:14 Dose: 40 meq Potassium Chloride (Klor-Con M20) 40 meq PO ONETIME ONE Stop: 04/05/18 17:01 Last Admin: 04/05/18 18:00 Dose: 40 meq Potassium Chloride (Klor-Con M20) 40 meq PO ONETIME ONE Stop: 04/13/18 08:31 Last Admin: 04/13/18 08:42 Dose: 40 meq Potassium Chloride (Klor-Con M20) 40 meq PO ONETIME ONE Stop: 04/13/18 13:01 Last Admin: 04/13/18 12:44 Dose: 40 meq Potassium Chloride (Klor-Con M20) 40 meq PO ONETIME ONE Stop: 04/13/18 17:01 Last Admin: 04/13/18 16:57 Dose: 40 meq Potassium Chloride (Klor-Con M20) 40 meq PO ONETIME ONE Stop: 04/15/18 14:31 Last Admin: 04/15/18 15:16 Dose: 40 meq Prednisone (Prednisone) 20 mg PO WITHBREAKFAST [facility] Last Admin: 03/30/18 08:59 Dose: 20 mg Propofol (Diprivan 20 Ml) Confirm Administered Dose 200 mg .ROUTE .STK-MED ONE Stop: 03/18/18 19:48 Propofol (Diprivan 20 Ml) Confirm Administered Dose 200 mg .ROUTE .STK-MED ONE Stop: 04/02/18 12:59 Propofol (Diprivan 20 Ml) Confirm Administered Dose 200 mg .ROUTE .STK-MED ONE Stop: 04/07/18 10:56 Propofol (Diprivan 20 Ml) Confirm Administered Dose 200 mg .ROUTE .STK-MED ONE Stop: 04/21/18 12:05 Rocuronium [place] (Zemuron) Confirm Administered Dose 50 mg .ROUTE .STK-MED ONE Stop: 03/18/18 19:48 Rocuronium [place] (Zemuron) Confirm Administered Dose 50 mg .ROUTE .STK-MED ONE Stop: 04/07/18 10:56 Succinylcholine Chloride (Quelicin) Confirm Administered Dose 200 mg .ROUTE .STK -MED ONE Stop: 03/18/18 19:48 Vancomycin HCl (Vancomycin) 1 gm IV .PHARMACY TO DOSE [facility] Stop: 03/21/18 16:00 Vancomycin HCl (Vancomycin) 1 gm IV .PHARMACY TO DOSE [facility] Stop: 04/16/18 14:00 - Exam Quality Assessment: Supplemental Oxygen General: Alert, Oriented, Cooperative, No Acute Distress Neck: Supple Lungs: Clear to Auscultation, Normal Respiratory Effort. No: Crackles Cardiovascular: Regular Rate, Regular Rhythm GI/Abdominal Exam: Soft, No Distention, Abnormal Bowel Sounds (hypoactive ) Extremities: No Pedal Edema, Other (right great toe with no swelling or drainage. It is tender to touch ). No: Increased Warmth Skin: Warm, Dry Psy/Mental Status: Alert, Normal Affect - Problem List Review Problem List Initiated/Reviewed/Updated: Yes - My Orders Last 24 Hours: My Active Orders 04/23/18 08:00 Furosemide [Lasix] 40 mg IVPUSH ONETIME ONE - Plan Plan:: ASSESSMENT AND PLAN WOUND DEHISCENCE WITH UNDERLYING ABSCESS - status post exploratory laparotomy . Recent CT showed potential fluid collection though no definite abscess identified. Pain has been stable and vitals have been stable. No fevers. -Ciprofloxacin 400 mg IV every 12 hours -Zyvox IV -Consideration being given for ultrasound drainage of the fluid -Transitioned to Latham catheter 04/21 -Surgical follow-up per surgery team OSTEOMYELITIS RIGHT FIRST TOE - pain and swelling improved. Unable to obtain MRI. Arterial Doppler study showed evidence of significant peripheral arterial disease in the right leg. -Outpatient follow-up with interventional radiology in [place] after he has healed from recent surgeries -Anticipate 4-6 weeks of antibiotics ANEMIA OF ACUTE ILLNESS - patient has required frequent blood draws and has been critically ill and hospitalized for some time. Hemoglobin has slowly trended down. Hemoglobin responded well to transfusion yesterday but a second unit is being transfused today. SIGMOID COLON PERFORATION RESULTING IN ACUTE ABDOMEN AND SEPTIC SHOCK - postop course complicated by wound dehiscence as above. He is receiving nutritional support via TPN. Persistent difficulty with very prolonged ileus. -Continue TPN -Post operative per surgical team -Pain control -Saline lock IV ACUTE HYPOXIC RESPIRATORY FAILURE - respiratory status stable. Still requiring some supplemental oxygen. -Coughing, deep breathing and suctioning as able -Furosemide IV, assess need daily, planning to give dose again today after transfusion COPD - [id number] smoking history but no evidence for exacerbation at this time. -Nebulized albuterol as needed -Vigorous pulmonary toilet during the postoperative period HISTORY OF LUNG AND PROSTATE CARCINOMA - lung cancer felt to be stable, had been receiving treatment for management of prostate carcinoma prior to admission MAINTENANCE ISSUES -DVT prophylaxis; SCUDs -GI prophylaxis; Protonix 40 mg daily -Sorto catheter; has been successfully removed -Nutrition; full liquids DISPOSITION - anticipate discharge to senior care after the hospital stay. Poor nutrition, extremely prolonged ileus and osteomyelitis are preventing safe discharge at this time. Stephon Christy M.D.
[2018-04-22] MEDS: diphenhydrAMINE 50 MG/ML SDV IVPUSH PRN (23:22)
[2018-04-22] MEDS: HYDROmorphone 0.5 MG/0.5 ML Syringe IVPUSH PRN (23:49)
[2018-04-23] MEDS: Linezolid 600 MG in Premix Bag 1 BAG IV SCH ×2 (00:37→12:23)
[2018-04-23] MEDS: Magnesium Sulfate/Water 2 GM in Premix Bag 1 BAG IV SCH ×4 (02:46→22:20)
[2018-04-23] MEDS: HYDROmorphone 0.5 MG/0.5 ML Syringe IVPUSH PRN ×4 (05:00→22:35)
[2018-04-23] MEDS: Pantoprazole 40 MG Vial IV SCH (05:05)
[2018-04-23] MEDS: Albuterol/Ipratropium 3.0-0.5 MG/3 ML Neb Soln NEB SCH ×4 (07:15→22:20)
[2018-04-23] MEDS: 1: AA 5%/Calcium/D15W/Lytes 1,000 ML with MVI, Adult with Vitamin K 10 ML, Chromium/Copp IV SCH ×6 (07:35→19:52)
[2018-04-23] MEDS: Erythromycin Ethylsuccinate Susp 200 MG/5 ML 100 ML Bottle PO SCH (07:35)
[2018-04-23] MEDS ORDERED: Furosemide 40 MG/4 ML VIAL IVPUSH ONE (08:00)
[2018-04-23] MEDS ORDERED: Central Total Parenteral Nutrition Bag SCH (08:15)
[2018-04-23] MEDS ORDERED: Hydrocortisone 1% Crm 30 GM Tube TOP PRN (08:18)
[2018-04-23] MEDS ORDERED: diphenhydrAMINE 50 MG/ML SDV IVPUSH PRN (08:20)
[2018-04-23] MEDS: Lactobacillus Rhamnosus GG (Probiotic) Cap PO SCH ×2 (09:18→22:19)
[2018-04-23] MEDS: Bisacodyl 10 MG Supp RECTAL SCH ×2 (09:18→22:20)
[2018-04-23] MEDS: Ciprofloxacin in D5W 400 MG in Premix Bag 1 BAG IV SCH ×4 (10:49→22:36)
--- NOTE | 2018-04-23 11:44 | PN ---
DATE OF SERVICE: 04/23/2018 SUBJECTIVE: Kodak's main concerns are he has not had any output out of his ileostomy. His last output from his ostomy was 25 mL on 04/22, he did have 450 on 04/21, 0 out the past 24 hours. Continues to have a lot of neck and chest itching especially at night. He was given Benadryl IV and he can have that every 4 hours. Staff is requesting that it be more often so he can get some sleep at night. Pain is controlled with morphine sublingual. REVIEW OF SYSTEM: Remainder of review of systems negative for any pertinent positives and negatives. OBJECTIVE: GENERAL: Kodak Silva is a 77-year-old male. He is alert and orientated this morning. VITAL SIGNS: TPR is 98.8, 80, 18, blood pressure 114/56. HEENT: Negative. NECK: Supple. HEART: Regular rate and rhythm. LUNGS: Clear. ABDOMEN: Wound VAC intact. The incision is very superficial. Gastrostomy tube patent. Area around the skin looks good. He has had out of his gastrostomy tube 260 mL and this has been left unclamped and clamped for 90 minutes after his erythromycin. Ostomy bag intact, there is no stool noted. EXTREMITIES: Without peripheral edema. ASSESSMENT: 1. Placement of Latham catheter on 04/21/2018. Fredi Linn MD. 2. Allergic reaction to vancomycin. 3. Osteomyelitis of right great toe. 4. Insertion of left subclavian triple lumen, exploratory laparotomy, drainage of intraabdominal abscess, small bowel resection, small-bowel strictureplasty, placement of Vicryl mesh for closure of fascial dehiscence and evisceration of the intraabdominal abscess and focal small-bowel stricture. Surgeon, Fredi Linn MD. Date of surgery 04/07/2017. 5. Percutaneous endoscopy, gastrostomy tube placement for malnutrition with inadequate oral intake. Date of surgery 04/02/2018. Surgeon, Fredi Linn MD. 6. Exploratory laparotomy, peritoneal lavage, sigmoid colon resection, Cristina's pouch colostomy for acute abdomen and perforated viscus and sepsis. Date of surgery 03/18/2018. Surgeon, Espinoza Adams MD. 7. Malnutrition requiring TPN therapy. PLAN: 1. Continue same TPN rate and content. 2. Check CBC, CMP, BNP, and phos in a.m. 3. Hydrocortisone cream 1% use to neck and chest p.r.n. itching b.i.d. 4. Benadryl 25 mg IV q.4 hours. 5. Dulcolax suppositories b.i.d. to ostomy. 6. Continue to work on oral intake. 7. We will evaluate p.r.n. or in a.m. Rula Morley PA-C /[id number]
--- NOTE | 2018-04-23 12:02 | PCM.PN ---
- General Info Date of Service: 04/23/18 Subjective Update: No acute events overnight. Abdominal pain has been well controlled and is stable to slightly improved. 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 He has not had any fevers. Tolerating clear liquids. Minimal shortness of breath at this time. No toe pain at this time. Functional Status: Reports: Pain Controlled, Tolerating Diet - Review of Systems General: Reports: Weakness Gastrointestinal: Reports: Abdominal Pain - Patient Data Vitals - Most Recent: Last Vital Signs Temp 37.2 C 04/23/18 10:36 Pulse 88 04/23/18 11:08 Resp 18 04/23/18 10:36 BP 109/64 04/23/18 10:36 Pulse Ox 90 L 04/23/18 10:36 Weight - Most Recent: 68.311 kg I&O - Last 24 Hours: Intake & Output 04/22/18 04/23/18 04/23/18 22:59 06:59 14:59 Intake Total 1982 1498 360 Output Total 2175 335 750 Balance -192 1163 -390 Lab Results Last 24 Hours: Laboratory Results - last 24 hr 04/21/18 04/23/18 04/23/18 Range/Units 04:00 04:50 04:50 WBC 12.4 H (4.5-11.0) K/uL RBC 3.51 L (4.30-5.90) M/uL Hgb 10.4 L (12.0-15.0) g/dL Hct 32.4 L (40.0-54.0) % MCV 92 (80-98) fL MCH 30 (27-31) pg MCHC 32 (32-36) % Plt Count 392 (150-400) K/uL Sodium 138 L (140-148) mmol/L Potassium 3.8 (3.6-5.2) mmol/L Chloride 102 (100-108) mmol/L Carbon Dioxide 29 (21-32) mmol/L Anion Gap 10.8 (5.0-14.0) mmol/L BUN 30 H (7-18) mg/dL Creatinine 1.0 (0.8-1.3) mg/dL Est Cr Clr Drug Dosing 59.53 mL/min Estimated GFR (MDRD) > 60 (>60) Glucose 115 H (74-106) mg/dL Calcium 8.3 L (8.5-10.1) mg/dL Phosphorus 4.6 (2.5-4.9) mg/dL Total Bilirubin 0.5 (0.2-1.0) mg/dL AST 24 (15-37) U/L ALT 33 (12-78) U/L Alkaline Phosphatase 142 H (46-116) U/L Total Protein 5.3 L (6.4-8.2) g/dL Albumin 2.1 L (3.4-5.0) g/dL Globulin 3.2 (2.3-3.5) g/dL Albumin/Globulin Ratio 0.7 L (1.2-2.2) Blood Type O POSITIVE Gel Antibody Screen Negative Crossmatch See Detail Med Orders - Current: Current Medications Albuterol (Proventil Neb Soln) 2.5 mg NEB Q4H PRN PRN Reason: Dyspnea Last Admin: 04/17/18 05:03 Dose: 2.5 mg Albuterol/Ipratropium (Duoneb 3.0-0.5 Mg/3 Ml) 3 ml NEB QIDRT [facility] Last Admin: 04/23/18 11:07 Dose: 3 ml Bisacodyl (Dulcolax) 10 mg RECTAL BID [facility] Last Admin: 04/23/18 09:18 Dose: 10 mg Calcium Carbonate/Glycine (Tums) 1,000 mg PO Q2H PRN PRN Reason: Indigestion Last Admin: 04/15/18 20:27 Dose: 1,000 mg Dimethicone/Zinc Oxide (Rash Relief-Zinc Oxide [place]) 0 gm TOP ASDIRECTED PRN PRN Reason: Rash Last Admin: 03/28/18 16:55 Dose: 1 spray Diphenhydramine HCl (Benadryl) 25 mg IVPUSH Q4H PRN PRN Reason: Itching Hydrocortisone (Hydrocortisone 1% Crm) 30 gm TOP ASDIRECTED PRN PRN Reason: itching Hydromorphone HCl (Dilaudid) 0.5 mg IVPUSH Q2H PRN PRN Reason: Pain Last Admin: 04/23/18 07:35 Dose: 0.5 mg Hydroxyzine HCl (Vistaril) 50 mg IM Q6H PRN PRN Reason: Pain Last Admin: 04/19/18 15:43 Dose: 50 mg Multivitamins/Minerals 10 ml/Chromium/Copper/Manganese/Seleni/Zn 1 ml/ Amino Ac/ Electrol/Dextrose/Calcium 1,011 mls @ 82 mls/hr IV .BY DURATION [facility] Last Admin: 04/22/18 17:58 Dose: 82 mls/hr Amino Ac/Electrol/Dextrose/Calcium (Clinimix E 15) 1,000 mls @ 82 mls/hr IV .BY DURATION [facility] Last Admin: 04/23/18 07:35 Dose: 82 mls/hr Ciprofloxacin/Dextrose 400 mg/ (Premix) 200 mls @ 200 mls/hr IV Q12H [facility] Last Admin: 04/23/18 10:49 Dose: 200 mls/hr Linezolid 600 mg/ Premix 300 mls @ 300 mls/hr IV Q12H [facility] Last Admin: 04/23/18 00:37 Dose: 300 mls/hr Magnesium Sulfate 2 gm/ Premix 50 mls @ 25 mls/hr IV Q6H [facility] Stop: 04/24/18 04:59 Last Admin: 04/23/18 09:19 Dose: 25 mls/hr Lactobacillus Rhamnosus (Culturelle) 1 cap PO BID [facility] Last Admin: 04/23/18 09:18 Dose: 1 cap Lorazepam (Ativan) 0.5 mg IVPUSH Q4H PRN PRN Reason: Nausea Morphine Sulfate (Morphine 10 Mg/0.5 Ml Oral Syringe) 5 mg PO Q4HWA PRN PRN Reason: Pain Last Admin: 04/20/18 19:59 Dose: 5 mg Ondansetron HCl (Zofran) 4 mg IVPUSH Q6H PRN PRN Reason: Nausea/Vomiting Tramadol HCl (Ultram) 25 - 50 mg PO Q6H PRN PRN Reason: Pain Last Admin: 04/19/18 19:25 Dose: 50 mg Discontinued Medications Acetaminophen (Tylenol) 650 mg RECTAL Q4H PRN PRN Reason: Fever Acetaminophen (Tylenol) 650 mg PO Q4H PRN PRN Reason: Pain/Fever Last Admin: 04/05/18 20:14 Dose: 650 mg Acetaminophen (Tylenol) 1,000 mg GTUBE Q6H [facility] Last Admin: 04/17/18 14:02 Dose: 1,000 mg Acetaminophen (Tylenol) 1,000 mg GTUBE Q6H [facility] Last Admin: 04/21/18 02:39 Dose: 1,000 mg Albuterol/Ipratropium (Duoneb 3.0-0.5 Mg/3 Ml) 3 ml NEB Q4H PRN PRN Reason: Dyspnea Albuterol/Ipratropium (Duoneb 3.0-0.5 Mg/3 Ml) 3 ml NEB ONETIME ONE Stop: 04/07/18 10:31 Last Admin: 04/07/18 10:26 Dose: Not Given Bupivacaine HCl (Marcaine 0.5%) Confirm Administered Dose 50 ml .ROUTE .STK-MED ONE Stop: 04/07/18 12:06 Bupivacaine HCl (Marcaine 0.5%) Confirm Administered Dose 50 ml .ROUTE .STK-MED ONE Stop: 04/19/18 07:31 Bupivacaine HCl (Marcaine 0.5%) Confirm Administered Dose 50 ml .ROUTE .STK-MED ONE Stop: 04/21/18 07:22 Last Admin: 04/21/18 13:46 Dose: 3.5 ml Ropivacaine 34 ml/Dexamethasone 8 mg/Epinephrine HCl 0.4 mg/ Sodium Chloride 43.6 ml 0 ml NERVRT ASDIRECTED [facility] Last Admin: 04/07/18 16:01 Dose: 80 syringe Dexamethasone (Dexamethasone) Confirm Administered Dose 4 mg .ROUTE .STK-MED ONE Stop: 03/18/18 19:48 Dexamethasone (Dexamethasone) Confirm Administered Dose 4 mg .ROUTE .STK-MED ONE Stop: 04/07/18 10:56 Diphenhydramine HCl (Benadryl) 25 mg IVPUSH Q6H PRN PRN Reason: Itching Last Admin: 04/22/18 23:22 Dose: 25 mg Epinephrine HCl (Adrenalin) Confirm Administered Dose 1 mg .ROUTE .STK-MED ONE Stop: 03/18/18 21:07 Erythromycin (Jh-Tab) 250 mg PO TID@0730,1630,2130 [facility] Last Admin: 04/17/18 10:03 Dose: 250 mg Erythromycin (Jh-Tab) 250 mg PO TID@0800,1400,2000 [facility] Stop: 04/18/18 08:01 Last Admin: 04/18/18 08:16 Dose: 250 mg Erythromycin Ethylsuccinate (Eryped 400) 125 mg PO Q6H [facility] Last Admin: 04/07/18 15:14 Dose: Not Given Erythromycin Ethylsuccinate (Eryped 200) 250 mg PO TID@0800,1400,2000 [facility] Last Admin: 04/23/18 07:35 Dose: 250 mg Fentanyl (Sublimaze) Confirm Administered Dose 250 mcg .ROUTE .STK-MED ONE Stop: 03/18/18 19:48 Fentanyl (Sublimaze) Confirm Administered Dose 250 mcg .ROUTE .STK-MED ONE Stop: 04/02/18 12:59 Fentanyl (Sublimaze) Confirm Administered Dose 250 mcg .ROUTE .STK-MED ONE Stop: 04/07/18 10:56 Fentanyl (Sublimaze) Confirm Administered Dose 100 mcg .ROUTE .STK-MED ONE Stop: 04/21/18 12:05 Furosemide (Lasix) 20 mg IVPUSH ONETIME ONE Stop: 03/23/18 09:46 Last Admin: 03/23/18 10:18 Dose: 20 mg Furosemide (Lasix) 20 mg IVPUSH NOW ONE Stop: 03/25/18 10:01 Last Admin: 03/25/18 10:17 Dose: 20 mg Furosemide (Lasix) 20 mg IVPUSH ONETIME ONE Stop: 03/26/18 09:16 Last Admin: 03/26/18 09:10 Dose: 20 mg Furosemide (Lasix) 20 mg IVPUSH ONETIME ONE Stop: 03/26/18 16:01 Last Admin: 03/26/18 18:28 Dose: Not Given Furosemide (Lasix) 20 mg IVPUSH NOW ONE Stop: 03/27/18 10:01 Last Admin: 03/27/18 10:26 Dose: 20 mg Furosemide (Lasix) 20 mg IVPUSH ONETIME ONE Stop: 03/30/18 13:11 Last Admin: 03/30/18 13:36 Dose: 20 mg Furosemide (Lasix) 20 mg IVPUSH NOW ONE Stop: 03/31/18 11:55 Last Admin: 03/31/18 13:04 Dose: 20 mg Furosemide (Lasix) 20 mg IVPUSH NOW ONE Stop: 04/01/18 12:05 Last Admin: 04/01/18 12:43 Dose: 20 mg Furosemide (Lasix) 20 mg IVPUSH NOW ONE Stop: 04/02/18 15:46 Last Admin: 04/02/18 15:53 Dose: 20 mg Furosemide (Lasix) 40 mg IVPUSH NOW ONE Stop: 04/03/18 09:01 Last Admin: 04/03/18 09:45 Dose: 40 mg Furosemide (Lasix) 40 mg IVPUSH NOW ONE Stop: 04/04/18 15:31 Last Admin: 04/04/18 15:55 Dose: 40 mg Furosemide (Lasix) 40 mg IVPUSH NOW ONE Stop: 04/05/18 09:01 Last Admin: 04/05/18 10:15 Dose: 40 mg Furosemide (Lasix) 40 mg IVPUSH ONETIME ONE Stop: 04/08/18 12:01 Last Admin: 04/08/18 11:01 Dose: 40 mg Furosemide (Lasix) 40 mg IVPUSH ONETIME STA Stop: 04/09/18 06:48 Last Admin: 04/09/18 10:16 Dose: Not Given Furosemide (Lasix) 20 mg IVPUSH ONETIME ONE Stop: 04/09/18 12:01 Last Admin: 04/09/18 13:43 Dose: Not Given Furosemide (Lasix) 40 mg IVPUSH ONETIME STA Stop: 04/09/18 10:08 Last Admin: 04/09/18 10:09 Dose: 40 mg Furosemide (Lasix) Confirm Administered Dose 40 mg .ROUTE .STK-MED ONE Stop: 04/09/18 10:08 Last Admin: 04/09/18 10:16 Dose: 40 mg Furosemide (Lasix) 40 mg IVPUSH ONETIME ONE Stop: 04/09/18 16:01 Last Admin: 04/09/18 15:54 Dose: 40 mg Furosemide (Lasix) 40 mg IVPUSH ONETIME ONE Stop: 04/10/18 12:01 Last Admin: 04/10/18 14:03 Dose: 40 mg Furosemide (Lasix) 20 mg IVPUSH ONETIME ONE Stop: 04/10/18 20:01 Last Admin: 04/10/18 21:10 Dose: 20 mg Furosemide (Lasix) 40 mg IVPUSH NOW ONE Stop: 04/11/18 11:31 Last Admin: 04/11/18 12:58 Dose: 40 mg Furosemide (Lasix) 40 mg IVPUSH NOW ONE Stop: 04/12/18 11:21 Last Admin: 04/12/18 13:28 Dose: 40 mg Furosemide (Lasix) Confirm Administered Dose 40 mg .ROUTE .STK-MED ONE Stop: 04/12/18 13:27 Last Admin: 04/12/18 13:52 Dose: Not Given Furosemide (Lasix) 40 mg IVPUSH NOW ONE Stop: 04/13/18 08:31 Last Admin: 04/13/18 08:42 Dose: 40 mg Furosemide (Lasix) 40 mg IVPUSH NOW ONE Stop: 04/14/18 10:01 Last Admin: 04/14/18 10:09 Dose: 40 mg Furosemide (Lasix) 20 mg IV ONETIME ONE Stop: 04/17/18 12:31 Last Admin: 04/17/18 12:22 Dose: 20 mg Furosemide (Lasix) 20 mg IVPUSH ONETIME ONE Stop: 04/20/18 12:55 Last Admin: 04/20/18 13:57 Dose: 20 mg Furosemide (Lasix) 20 mg IVPUSH ONETIME ONE Stop: 04/21/18 10:01 Last Admin: 04/21/18 09:37 Dose: 20 mg Furosemide (Lasix) 40 mg IVPUSH ONETIME ONE Stop: 04/21/18 10:01 Last Admin: 04/21/18 09:52 Dose: 40 mg Furosemide (Lasix) 20 mg IVPUSH ONETIME ONE Stop: 04/22/18 11:01 Furosemide (Lasix) 40 mg IVPUSH ONETIME ONE Stop: 04/23/18 08:01 Last Admin: 04/23/18 07:38 Dose: 40 mg Furosemide (Lasix) 40 mg IVPUSH ONETIME ONE Stop: 04/22/18 11:01 Last Admin: 04/22/18 10:32 Dose: 40 mg Glycopyrrolate (Robinul) Confirm Administered Dose 1 mg .ROUTE .STK-MED ONE Stop: 03/18/18 19:48 Glycopyrrolate (Robinul) Confirm Administered Dose 1 mg .ROUTE .STK-MED ONE Stop: 04/07/18 10:56 Heparin Sodium (Porcine) (Heparin Sodium) Confirm Administered Dose 5,000 units .ROUTE .STK-MED ONE Stop: 03/18/18 19:51 Heparin Sodium (Porcine) (Heparin Lock Flush 100 Units/Ml) 500 units FLUSH ASDIRECTED PRN PRN Reason: IV Use Last Admin: 04/22/18 05:16 Dose: 500 units Heparin Sodium (Porcine) (Heparin Lock Flush 100 Units/Ml) Confirm Administered Dose 500 units .ROUTE .ST-MED ONE Stop: 03/22/18 12:17 Last Admin: 03/22/18 12:30 Dose: Not Given Heparin Sodium (Porcine) (Heparin Sodium) Confirm Administered Dose 5,000 units .ROUTE .K-MED ONE Stop: 03/24/18 19:52 Last Admin: 03/24/18 20:33 Dose: 5,000 units Heparin Sodium (Porcine) (Heparin Lock Flush 100 Units/Ml) Confirm Administered Dose 1,000 units .ROUTE .K-MED ONE Stop: 04/07/18 12:06 Last Admin: 04/07/18 14:30 Dose: 500 units Heparin Sodium (Porcine) (Heparin Lock Flush 100 Units/Ml) Confirm Administered Dose 1,500 units .ROUTE .[facility]-MED ONE Stop: 04/19/18 07:31 Heparin Sodium (Porcine) (Heparin Lock Flush 100 Units/Ml) Confirm Administered Dose 1,000 units .ROUTE .[facility]-MED ONE Stop: 04/21/18 07:22 Last Admin: 04/21/18 13:46 Dose: 1,000 units Heparin Sodium (Porcine) (Heparin Lock Flush 100 Units/Ml) Confirm Administered Dose 500 units .ROUTE .[facility]-MED ONE Stop: 04/21/18 07:23 Last Admin: 04/21/18 13:46 Dose: 500 units Hydrocortisone Sodium Succinate (Solu-Cortef) 100 mg IVPUSH Q12H [facility] Last Admin: 03/28/18 20:15 Dose: 100 mg Hydrocortisone Sodium Succinate (Solu-Cortef) 100 mg IVPUSH DAILY [facility] Last Admin: 03/30/18 13:39 Dose: Not Given Hydromorphone HCl (Dilaudid) 0.5 mg IVPUSH ONETIME ONE Stop: 03/18/18 17:43 Last Admin: 03/18/18 17:47 Dose: 0.5 mg Hydromorphone HCl (Dilaudid) 1 mg IVPUSH ONETIME ONE Stop: 03/18/18 18:18 Last Admin: 03/18/18 18:27 Dose: 1 mg Hydromorphone HCl (Dilaudid) 0.5 mg IVPUSH ONETIME ONE Stop: 04/16/18 09:58 Last Admin: 04/16/18 10:31 Dose: 0.5 mg Hydroxyzine HCl (Vistaril) 100 mg IM Q6H PRN PRN Reason: Pain Last Admin: 04/11/18 08:49 Dose: 100 mg Sodium Chloride (Normal Saline) 1,000 mls @ 1,000 mls/hr IV ASDIRECTED [facility] Last Admin: 03/18/18 17:47 Dose: 1,000 mls/hr Sodium Chloride (Normal Saline) 1,000 mls @ 999 mls/hr IV ASDIRECTED [facility] Last Admin: 03/18/18 19:31 Dose: 999 mls/hr Meropenem 500 mg/ Sodium (Chloride) 50 mls @ 100 mls/hr IV ONETIME ONE Stop: 03/18/18 19:09 Last Admin: 03/18/18 19:01 Dose: 100 mls/hr Sodium Chloride (Normal Saline) Confirm Administered Dose 50 mls @ as directed .ROUTE .[facility]-MED ONE Stop: 03/18/18 19:40 Last Admin: 03/18/18 20:19 Dose: Not Given Aztreonam 2 gm/ Sodium (Chloride) 50 mls @ 100 mls/hr IV ONETIME ONE Stop: 03/18/18 20:01 Last Admin: 03/18/18 20:44 Dose: 100 mls/hr Meropenem 500 mg/ Sodium (Chloride) 50 mls @ 100 mls/hr IV ONETIME ONE Stop: 03/18/18 20:00 Last Admin: 03/18/18 19:40 Dose: 100 mls/hr Sodium Chloride (Normal Saline) Confirm Administered Dose 250 mls @ as directed .ROUTE .ST-MED ONE Stop: 03/18/18 19:59 Lactated Ringer's (Ringers, Lactated) Confirm Administered Dose 1,000 mls @ as directed .ROUTE .ST-MED ONE Stop: 03/18/18 19:59 Sodium Chloride (Normal Saline) Confirm Administered Dose 500 mls @ as directed .ROUTE .STK-MED ONE Stop: 03/18/18 19:59 Norepinephrine Bitartrate 8 mg (/ Dextrose/Water) 258 mls @ 3.87 mls/hr IV TITRATE [facility]; Protocol Last Admin: 03/19/18 11:45 Dose: 12 mcg/min, 23.22 mls/hr Lactated Ringer's (Ringers, Lactated) Confirm Administered Dose 1,000 mls @ as directed .ROUTE .STK-MED ONE Stop: 03/18/18 21:42 Propofol (Diprivan 100 Ml) 100 mls @ 2.082 mls/hr IV TITRATE [facility]; Protocol Last Titration: 03/27/18 06:35 Dose: 10 mcg/kg/min, 4.164 mls/hr Aztreonam 1 gm/ Sodium (Chloride) 50 mls @ 100 mls/hr IV Q8H [facility] Last Admin: 03/19/18 05:29 Dose: 100 mls/hr Potassium Chloride/Dextrose/Sod Cl (D5 1/2 Ns W/ 20 Meq/L Kcl) 1,000 mls @ 150 mls/hr IV ASDIRECTED [facility] Last Admin: 03/18/18 23:11 Dose: 150 mls/hr Meropenem 1 gm/ Sodium (Chloride) 50 mls @ 100 mls/hr IV Q12H [facility] Stop: 03/29/18 22:00 Last Admin: 03/29/18 20:10 Dose: 100 mls/hr Lactated Ringer's (Ringers, Lactated) 1,000 mls @ 500 mls/hr IV ASDIRECTED [facility] Last Admin: 03/19/18 01:23 Dose: 500 mls/hr Vasopressin 100 units/ (Dextrose/Water) 255 mls @ 1.53 mls/hr IV TITRATE [facility]; Protocol Stop: 03/21/18 13:00 Last Titration: 03/21/18 11:03 Dose: 0.02 units/min, 3.06 mls/hr Lactated Ringer's (Ringers, Lactated) 1,000 mls @ 500 mls/hr IV BOLUS [facility] Stop: 03/19/18 05:29 Last Admin: 03/19/18 04:02 Dose: 500 mls/hr Aztreonam/Dextrose 1 gm/ (Premix) 50 mls @ 100 mls/hr IV Q8H [facility] Last Admin: 03/28/18 05:26 Dose: 100 mls/hr Lactated Ringer's (Ringers, Lactated) 1,000 mls @ 500 mls/hr IV .BOLUS ONE Stop: 03/19/18 14:59 Last Admin: 03/19/18 14:27 Dose: 500 mls/hr Lactated Ringer's (Ringers, Lactated) 1,000 mls @ 150 mls/hr IV ASDIRECTED [facility] Last Admin: 03/21/18 11:53 Dose: 150 mls/hr Norepinephrine Bitartrate 8 mg (/ Dextrose/Water) 250 mls @ 3.75 mls/hr IV TITRATE [facility]; Protocol Last Titration: 03/27/18 09:04 Dose: 4 mcg/min, 7.5 mls/hr Magnesium Sulfate 2 gm/ Premix 50 mls @ 25 mls/hr IV Q6H [facility] Stop: 03/20/18 17:59 Last Admin: 03/20/18 16:30 Dose: 25 mls/hr Vancomycin HCl 1.25 gm/ Sodium (Chloride) 250 mls @ 170 mls/hr IV Q24H [facility] Last Admin: 03/22/18 10:06 Dose: 170 mls/hr Vasopressin 40 units/ Dextrose (/Water) 100 mls @ 3 mls/hr IV TITRATE [facility]; Protocol Last Titration: 03/23/18 01:00 Dose: 0 units/min, 0 mls/hr Potassium Chloride 20 meq/ (Premix) 100 mls @ 50 mls/hr IV Q2H [facility] Stop: 03/21/18 22:59 Last Admin: 03/21/18 22:20 Dose: 50 mls/hr Potassium Chloride 20 meq/ (Premix) 100 mls @ 50 mls/hr IV Q2H [facility] Stop: 03/22/18 12:59 Last Admin: 03/22/18 11:30 Dose: 50 mls/hr Potassium Chloride 20 meq/ (Premix) 100 mls @ 50 mls/hr IV Q2H [facility] Stop: 03/22/18 17:29 Last Admin: 03/22/18 16:13 Dose: 50 mls/hr Potassium Chloride (Kcl 20 Meq In Water 100 Ml) 100 mls @ 50 mls/hr IV Q2H [facility] Stop: 03/23/18 01:59 Last Admin: 03/23/18 00:53 Dose: 50 mls/hr Potassium Chloride 40 meq/ (Premix) 100 mls @ 25 mls/hr IV ONETIME ONE Stop: 03/23/18 14:29 Last Admin: 03/23/18 10:31 Dose: 25 mls/hr Vancomycin HCl 1.4 gm/ Sodium (Chloride) 250 mls @ 170 mls/hr IV Q24H [facility] Last Admin: 03/24/18 11:13 Dose: 170 mls/hr Multivitamins/Minerals 10 ml/Chromium/Copper/Manganese/Seleni/Zn 1 ml/ Amino Ac/ Electrol/Dextrose/Calcium 1,011 mls @ 75 mls/hr IV .BY DURATION [facility] Last Admin: 03/25/18 22:34 Dose: 75 mls/hr Amino Ac/Electrol/Dextrose/Calcium (Clinimix E 5/15) 1,000 mls @ 75 mls/hr IV .BY DURATION [facility] Last Admin: 03/25/18 08:11 Dose: 75 mls/hr Vasopressin 100 units/ (Dextrose/Water) 255 mls @ 1.53 mls/hr IV TITRATE [facility]; Protocol Last Titration: 03/25/18 11:51 Dose: 0 units/min, 0 mls/hr Potassium Chloride 20 meq/ (Premix) 100 mls @ 50 mls/hr IV Q2H [facility] Stop: 03/24/18 13:59 Last Admin: 03/24/18 12:13 Dose: 50 mls/hr Multivitamins/Minerals 10 ml/Chromium/Copper/Manganese/Seleni/Zn 1 ml/ Amino Ac/ Electrol/Dextrose/Calcium 1,011 mls @ 75 mls/hr IV .BY DURATION [facility] Last Admin: 03/29/18 06:48 Dose: 75 mls/hr Amino Ac/Electrol/Dextrose/Calcium (Clinimix E 5/15) 1,000 mls @ 75 mls/hr IV .BY DURATION [facility] Last Admin: 03/29/18 20:12 Dose: 75 mls/hr Heparin Sodium (Porcine) 5,000 (units/ Sodium Chloride) 501 mls @ 5 mls/hr IV ASDIRECTED [facility] Last Admin: 03/27/18 12:50 Dose: 5 mls/hr Sodium Chloride (Normal Saline) 1,000 mls @ 50 mls/hr IV ASDIRECTED [facility] Last Admin: 03/30/18 13:36 Dose: 50 mls/hr Dextrose/Sodium Chloride (Dextrose 5%-1/2 Ns) 1,000 mls @ 75 mls/hr IV ASDIRECTED [facility] Last Admin: 03/31/18 23:53 Dose: 75 mls/hr Albumin Human (Albumin 25%) 25 gm in 100 mls @ 25 mls/hr IV Q24H [facility] Stop: 04/02/18 12:59 Last Admin: 04/01/18 08:13 Dose: 25 mls/hr Potassium Phosphate 20 mmole/ (Sodium Chloride) 256.6667 mls @ 85 mls/hr IV Q3H [facility] Stop: 04/01/18 18:59 Last Admin: 04/01/18 18:37 Dose: 85 mls/hr Dextrose/Sodium Chloride (Dextrose 5%-1/2 Ns) 1,000 mls @ 80 mls/hr IV ASDIRECTED [facility] Last Admin: 04/03/18 06:40 Dose: 80 mls/hr Cefazolin Sodium/Dextrose 2 gm (/ Premix) 50 mls @ 100 mls/hr IV ONCALL ONE Stop: 04/02/18 11:59 Last Admin: 04/02/18 13:59 Dose: 100 mls/hr Potassium Acetate 20 meq/ (Sodium Chloride) 110 mls @ 55 mls/hr IV Q2H [facility] Stop: 04/02/18 11:59 Last Admin: 04/02/18 10:10 Dose: 55 mls/hr Magnesium Sulfate 2 gm/ Premix 50 mls @ 25 mls/hr IV Q6H [facility] Stop: 04/05/18 07:59 Last Admin: 04/03/18 12:11 Dose: 25 mls/hr Albumin Human (Albumin 25%) 25 gm in 100 mls @ 25 mls/hr IV ONETIME ONE Stop: 04/02/18 17:59 Last Admin: 04/02/18 15:30 Dose: 25 mls/hr Potassium Chloride 20 meq/Lidocaine HCl 2 ml/ Sodium Chloride 112 mls @ 56 mls/ hr IV Q2H [facility] Stop: 04/03/18 17:59 Last Admin: 04/03/18 17:04 Dose: 56 mls/hr Magnesium Sulfate 2 gm/ Premix 50 mls @ 25 mls/hr IV Q6H [facility] Stop: 04/08/18 03:59 Last Admin: 04/07/18 15:14 Dose: Not Given Potassium Phosphate 15 mmole/ (Sodium Chloride) 255 mls @ 128 mls/hr IV Q2H [facility] Stop: 04/06/18 13:59 Last Admin: 04/06/18 12:49 Dose: 128 mls/hr Dextrose/Lactated Ringer's (Dextrose 5%-Lactated Ringers) 1,000 mls @ 100 mls/ hr IV ASDIRECTED [facility] Last Admin: 04/07/18 08:44 Dose: 100 mls/hr Meropenem 500 mg/ Sodium (Chloride) 50 mls @ 100 mls/hr IV ONCALL ONE Stop: 04/07/18 11:59 Last Admin: 04/07/18 15:13 Dose: Not Given Linezolid (Zyvox) Confirm Administered Dose 300 mls @ as directed .ROUTE .STK- MED ONE Stop: 04/07/18 15:26 Lactated Ringer's (Ringers, Lactated) Confirm Administered Dose 1,000 mls @ as directed .ROUTE .STK-MED ONE Stop: 04/07/18 15:35 Linezolid 600 mg/ Premix 300 mls @ 300 mls/hr IV ONETIME ONE Stop: 04/07/18 17:29 Last Admin: 04/07/18 16:25 Dose: 300 mls/hr Dextrose/Lactated Ringer's (Dextrose 5%-Lactated Ringers) 1,000 mls @ 175 mls/ hr IV ASDIRECTED [facility] Last Admin: 04/08/18 06:21 Dose: 175 mls/hr Linezolid 600 mg/ Premix 300 mls @ 300 mls/hr IV Q12H [facility] Last Admin: 04/10/18 03:46 Dose: 300 mls/hr Meropenem 500 mg/ Sodium (Chloride) 50 mls @ 100 mls/hr IV Q8H [facility] Last Admin: 04/11/18 06:23 Dose: 100 mls/hr Magnesium Sulfate 2 gm/ Premix 50 mls @ 25 mls/hr IV Q6H [facility] Stop: 04/09/18 13:59 Last Admin: 04/09/18 11:40 Dose: 25 mls/hr Dextrose/Lactated Ringer's (Dextrose 5%-Lactated Ringers) 1,000 mls @ 100 drops /hr IV ASDIRECTED [facility] Last Admin: 04/09/18 11:39 Dose: 100 drops/hr Albumin Human (Albumin 25%) 25 gm in 100 mls @ 25 mls/hr IV Q24H [facility] Stop: 04/12/18 13:59 Last Admin: 04/12/18 09:28 Dose: 25 mls/hr Albumin Human (Albumin 25%) 25 gm in 100 mls @ 25 mls/hr IV Q24H [facility] Stop: 04/12/18 17:59 Last Admin: 04/12/18 14:19 Dose: 25 mls/hr Dextrose/Lactated Ringer's (Dextrose 5%-Lactated Ringers) 1,000 mls @ 25 mls/ hr IV ASDIRECTED [facility] Sodium Chloride (Normal Saline) 1,000 mls @ 0 mls/hr IV ASDIRECTED [facility] Potassium Phosphate 22.5 mmole (/ Sodium Chloride) 257.5 mls @ 86 mls/hr IV Q3H [facility] Stop: 04/10/18 15:59 Last Admin: 04/10/18 14:47 Dose: 86 mls/hr Calcium Gluconate 1 gm/ Sodium (Chloride) 110 mls @ 100 mls/hr IV Q6H [facility] Stop: 04/10/18 18:05 Last Admin: 04/10/18 16:21 Dose: 100 mls/hr Doxycycline Hyclate 100 mg/ (Sodium Chloride) 100 mls @ 100 mls/hr IV Q12H [facility] Last Admin: 04/16/18 12:08 Dose: 100 mls/hr Acetaminophen 1,000 mg/ Premix 100 mls @ 400 mls/hr IV Q6H [facility] Stop: 04/12/18 06:44 Last Admin: 04/12/18 05:47 Dose: 400 mls/hr Potassium Chloride 20 meq/ (Premix) 100 mls @ 50 mls/hr IV Q2H [facility] Stop: 04/12/18 14:59 Last Admin: 04/12/18 13:29 Dose: 50 mls/hr Potassium Chloride 40 meq/ (Premix) 100 mls @ 25 mls/hr IV ONETIME ONE Stop: 04/12/18 12:19 Potassium Chloride 40 meq/ (Premix) 100 mls @ 25 mls/hr IV ONETIME ONE Stop: 04/12/18 20:59 Last Admin: 04/12/18 17:45 Dose: 25 mls/hr Potassium Phosphate 25 mmole/ (Sodium Chloride) 108.3333 mls @ 27 mls/hr IV Q4H [facility] Stop: 04/13/18 21:29 Last Admin: 04/13/18 18:13 Dose: 27 mls/hr Magnesium Sulfate 2 gm/ Premix 50 mls @ 25 mls/hr IV Q6H [facility] Stop: 04/17/18 04:59 Last Admin: 04/15/18 08:34 Dose: 25 mls/hr Vancomycin HCl 1.35 gm/ Sodium (Chloride) 250 mls @ 167 mls/hr IV ONETIME ONE Stop: 04/16/18 15:29 Last Admin: 04/16/18 15:04 Dose: 167 mls/hr Vancomycin HCl 1 gm/ Sodium (Chloride) 250 mls @ 167 mls/hr IV Q12H [facility] Last Admin: 04/17/18 02:21 Dose: 167 mls/hr Magnesium Sulfate 2 gm/ Premix 50 mls @ 25 mls/hr IV Q6H [facility] Stop: 04/21/18 02:59 Last Admin: 04/18/18 08:02 Dose: Not Given Magnesium Sulfate 2 gm/ Premix 50 mls @ 25 mls/hr IV Q6H [facility] Stop: 04/18/18 17:59 Last Admin: 04/18/18 16:28 Dose: 25 mls/hr Potassium Chloride 20 meq/ (Premix) 100 mls @ 50 mls/hr IV Q2H [facility] Stop: 04/19/18 08:59 Last Admin: 04/19/18 07:37 Dose: 50 mls/hr Sodium Chloride (Normal Saline) 71 mls @ 3.1 mls/sec IV ASDIRECTED [facility] Stop: 04/19/18 08:28 Last Admin: 04/19/18 09:15 Dose: 3.1 mls/sec Sodium Chloride (Normal Saline) Confirm Administered Dose 500 mls @ as directed .ROUTE .STK-MED ONE Stop: 04/21/18 13:40 Insulin Human Lispro (Humalog) 0 unit SUBCUT Q6H [facility]; Protocol Last Admin: 03/30/18 16:32 Dose: Not Given Insulin Human Lispro (Humalog) 0 unit SUBCUT Q6H [facility]; Protocol Last Admin: 03/31/18 03:52 Dose: Not Given Insulin Human Lispro (Humalog) 0 unit SUBCUT QIDACANDBED [facility]; Protocol Stop: 04/12/18 11:01 Last Admin: 03/31/18 13:17 Dose: Not Given Iopamidol (Isovue-300 (61%)) 100 ml IV . DIRECTED STA Stop: 04/19/18 08:28 Last Admin: 04/19/18 09:15 Dose: 100 ml Lidocaine/Epinephrine (Xylocaine 1% With Epinephrine 1:100,000) Confirm Administered Dose 50 ml .ROUTE .STK-MED ONE Stop: 04/07/18 12:06 Lidocaine/Epinephrine (Xylocaine 1% With Epinephrine 1:100,000) Confirm Administered Dose 50 ml .ROUTE .STK-MED ONE Stop: 04/19/18 07:31 Lidocaine/Epinephrine (Xylocaine 1% With Epinephrine 1:100,000) Confirm Administered Dose 50 ml .ROUTE .STK-MED ONE Stop: 04/21/18 07:22 Last Admin: 04/21/18 13:46 Dose: 3.5 ml Linezolid (Zyvox) 600 mg IRR .STK-MED ONE Stop: 04/07/18 16:06 Last Admin: 04/07/18 16:05 Dose: 600 mg Loperamide HCl (Imodium) 2 mg PO ASDIRECTED PRN PRN Reason: DIARRHEA Melatonin (Melatonin) 9 mg PO BEDTIME [facility] Last Admin: 04/06/18 21:40 Dose: 9 mg Meropenem (Merrem) Confirm Administered Dose 500 mg .ROUTE .STK-MED ONE Stop: 03/18/18 19:40 Last Admin: 03/18/18 20:19 Dose: Not Given Meropenem (Merrem) Confirm Administered Dose 500 mg .ROUTE .STK-MED ONE Stop: 04/07/18 14:38 Last Admin: 04/07/18 16:00 Dose: 500 mg Meropenem (Merrem) Confirm Administered Dose 500 mg .ROUTE .STK-MED ONE Stop: 04/07/18 15:08 Last Admin: 04/07/18 16:05 Dose: 500 mg Methylprednisolone Sodium Succinate (Solu-Medrol) 125 mg IVPUSH ONETIME ONE Stop: 04/17/18 05:49 Last Admin: 04/17/18 06:02 Dose: 125 mg Midazolam HCl (Versed 1 Mg/Ml) Confirm Administered Dose 2 mg .ROUTE .STK-MED ONE Stop: 04/02/18 12:59 Morphine Sulfate (Morphine) 4 mg IVPUSH Q2H PRN PRN Reason: Pain Last Admin: 03/29/18 07:34 Dose: 4 mg Morphine Sulfate (Morphine [employer] 150 Mg In 30 Ml) 0 mg IV ASDIRECTED PRN; Protocol PRN Reason: Pain Last Admin: 04/07/18 10:00 Dose: 150 mg Morphine Sulfate (Morphine [employer] Cutter Grinder 150 Mg In 30 Ml) 0 mg IV ASDIRECTED PRN; Protocol PRN Reason: Pain Naloxone HCl (Narcan) 0.1 mg IV ASDIRECTED PRN PRN Reason: decreased respiratory rate Neostigmine Methylsulfate (Neostigmine) Confirm Administered Dose 5 mg .ROUTE .STK-MED ONE Stop: 03/18/18 19:48 Neostigmine Methylsulfate (Neostigmine) Confirm Administered Dose 5 mg .ROUTE .STK-MED ONE Stop: 04/07/18 10:56 Non-Formulary Medication (Total Parenteral Nutrition, Central) 1,000 ml .XX .Continue Order [facility]; Protocol Stop: 03/24/18 11:31 Non-Formulary Medication (Total Parenteral Nutrition, Central) 1,000 ml .XX .Continue Order [facility]; Protocol Non-Formulary Medication (Total Parenteral Nutrition, Central) 1,000 ml .XX .Continue Order [facility]; Protocol Non-Formulary Medication (Total Parenteral Nutrition, Central) 1,000 ml .XX .Continue Order [facility]; Protocol Stop: 03/28/18 12:00 Non-Formulary Medication (Total Parenteral Nutrition, Central) 1,000 ml .XX .Continue Order [facility] Stop: 04/08/18 08:01 Non-Formulary Medication (Total Parenteral Nutrition, Central) 1,000 ml .XX .Continue Order [facility] Stop: 04/09/18 10:00 Non-Formulary Medication (Total Parenteral Nutrition, Central) 1,000 ml .XX .Continue Order [facility] Stop: 04/10/18 10:00 Non-Formulary Medication (Total Parenteral Nutrition, Central) 1,000 ml .XX .Continue Order [facility] Stop: 04/11/18 10:00 Non-Formulary Medication (Total Parenteral Nutrition, Central) 1,000 ml .XX .Continue Order [facility] Stop: 04/12/18 12:00 Non-Formulary Medication (Total Parenteral Nutrition, Central) 1,000 ml .XX .Continue Order [facility] Stop: 04/13/18 12:00 Non-Formulary Medication (Total Parenteral Nutrition, Central) 1,000 ml .XX .Continue Order [facility] Stop: 04/15/18 07:46 Non-Formulary Medication (Total Parenteral Nutrition, Central) 1,000 ml .XX .Continue Order [facility] Stop: 04/16/18 10:00 Non-Formulary Medication (Total Parenteral Nutrition, Central) 1,000 ml .XX .Continue Order [facility] Stop: 04/17/18 12:00 Non-Formulary Medication (Total Parenteral Nutrition, Central) 1,000 ml .XX .Continue Order [facility] Stop: 04/18/18 07:01 Non-Formulary Medication (Total Parenteral Nutrition, Central) 1,000 ml .XX .Continue Order [facility] Stop: 04/19/18 08:01 Non-Formulary Medication (Total Parenteral Nutrition, Central) 1,000 ml .XX .Continue Order [facility] Stop: 04/20/18 12:00 Non-Formulary Medication (Total Parenteral Nutrition, Central) 1,000 ml .XX .Continue Order [facility] Stop: 04/21/18 10:00 Non-Formulary Medication (Total Parenteral Nutrition, Central) 1,000 ml .XX .Continue Order [facility] Stop: 04/22/18 12:00 Non-Formulary Medication (Total Parenteral Nutrition, Central) 1,000 ml .XX .Continue Order [facility] Stop: 04/23/18 12:00 Nystatin (Mycostatin) 5 ml PO QID [facility] Last Admin: 04/04/18 15:25 Dose: 5 ml Ondansetron HCl (Zofran) 4 mg IVPUSH ONETIME ONE Stop: 03/18/18 18:18 Last Admin: 03/18/18 18:27 Dose: 4 mg Ondansetron HCl (Zofran) Confirm Administered Dose 4 mg .ROUTE .STK-MED ONE Stop: 03/18/18 19:48 Ondansetron HCl (Zofran) Confirm Administered Dose 4 mg .ROUTE .STK-MED ONE Stop: 04/07/18 10:56 Oxycodone HCl (Oxycodone) 5 mg PO Q4H PRN PRN Reason: Pain (moderate 4-6) Last Admin: 04/06/18 05:19 Dose: 5 mg Pantoprazole Sodium (Protonix Iv) 40 mg IVPUSH DAILY [facility] Last Admin: 03/28/18 08:34 Dose: 40 mg Pantoprazole Sodium (Protonix) 40 mg PO ACBREAKFAST [facility] Last Admin: 04/07/18 08:10 Dose: 40 mg Pantoprazole Sodium (Protonix Iv) 40 mg IV Q24H [facility] Last Admin: 04/23/18 05:05 Dose: 40 mg Phenylephrine HCl (Isaías-Synephrine) Confirm Administered Dose 10 mg .ROUTE .STK- MED ONE Stop: 03/18/18 20:05 Potassium Chloride (Klor-Con M20) 40 meq PO ONETIME ONE Stop: 04/03/18 13:16 Last Admin: 04/03/18 14:33 Dose: 40 meq Potassium Chloride (Klor-Con M20) 40 meq PO ONETIME ONE Stop: 04/03/18 17:01 Last Admin: 04/03/18 20:55 Dose: 40 meq Potassium Chloride (Klor-Con M20) 40 meq PO ONETIME ONE Stop: 04/04/18 09:01 Last Admin: 04/04/18 09:34 Dose: 40 meq Potassium Chloride (Klor-Con M20) 40 meq PO ONETIME ONE Stop: 04/04/18 17:01 Last Admin: 04/04/18 17:08 Dose: 40 meq Potassium Chloride (Klor-Con M20) 40 meq PO ONETIME ONE Stop: 04/05/18 09:01 Last Admin: 04/05/18 10:14 Dose: 40 meq Potassium Chloride (Klor-Con M20) 40 meq PO ONETIME ONE Stop: 04/05/18 17:01 Last Admin: 04/05/18 18:00 Dose: 40 meq Potassium Chloride (Klor-Con M20) 40 meq PO ONETIME ONE Stop: 04/13/18 08:31 Last Admin: 04/13/18 08:42 Dose: 40 meq Potassium Chloride (Klor-Con M20) 40 meq PO ONETIME ONE Stop: 04/13/18 13:01 Last Admin: 04/13/18 12:44 Dose: 40 meq Potassium Chloride (Klor-Con M20) 40 meq PO ONETIME ONE Stop: 04/13/18 17:01 Last Admin: 04/13/18 16:57 Dose: 40 meq Potassium Chloride (Klor-Con M20) 40 meq PO ONETIME ONE Stop: 04/15/18 14:31 Last Admin: 04/15/18 15:16 Dose: 40 meq Prednisone (Prednisone) 20 mg PO WITHBREAKFAST [facility] Last Admin: 03/30/18 08:59 Dose: 20 mg Propofol (Diprivan 20 Ml) Confirm Administered Dose 200 mg .ROUTE .STK-MED ONE Stop: 03/18/18 19:48 Propofol (Diprivan 20 Ml) Confirm Administered Dose 200 mg .ROUTE .STK-MED ONE Stop: 04/02/18 12:59 Propofol (Diprivan 20 Ml) Confirm Administered Dose 200 mg .ROUTE .STK-MED ONE Stop: 04/07/18 10:56 Propofol (Diprivan 20 Ml) Confirm Administered Dose 200 mg .ROUTE .STK-MED ONE Stop: 04/21/18 12:05 Rocuronium Ector (Zemuron) Confirm Administered Dose 50 mg .ROUTE .STK-MED ONE Stop: 03/18/18 19:48 Rocuronium Ector (Zemuron) Confirm Administered Dose 50 mg .ROUTE .STK-MED ONE Stop: 04/07/18 10:56 Succinylcholine Chloride (Quelicin) Confirm Administered Dose 200 mg .ROUTE .STK -MED ONE Stop: 03/18/18 19:48 Vancomycin HCl (Vancomycin) 1 gm IV .PHARMACY TO DOSE [facility] Stop: 03/21/18 16:00 Vancomycin HCl (Vancomycin) 1 gm IV .PHARMACY TO DOSE [facility] Stop: 04/16/18 14:00 - Exam Quality Assessment: Supplemental Oxygen General: Alert, Oriented, Cooperative, No Acute Distress Lungs: Clear to Auscultation, Normal Respiratory Effort Cardiovascular: Regular Rate, Regular Rhythm GI/Abdominal Exam: Soft, No Distention, Tender, Abnormal Bowel Sounds ( hypoactive) Extremities: No Pedal Edema. No: Increased Warmth Skin: Warm, Dry Psy/Mental Status: Alert, Normal Affect - Problem List Review Problem List Initiated/Reviewed/Updated: Yes - My Orders Last 24 Hours: My Active Orders 04/22/18 12:42 OT Evaluation and Treatment [CONS] Routine 04/23/18 14:00 Metoclopramide [Reglan] 5 mg IVPUSH TID 04/24/18 09:00 Pantoprazole [ProTONIX] 40 mg PO DAILY - Plan Plan:: ASSESSMENT AND PLAN WOUND DEHISCENCE WITH UNDERLYING ABSCESS - status post exploratory laparotomy . Recent CT showed potential fluid collection though no definite abscess identified. Pain has been stable and vitals have been stable. No fevers. -Ciprofloxacin 400 mg IV every 12 hours -Zyvox IV -Consideration being given for ultrasound drainage of the fluid -Transitioned to Latham catheter 04/21 -Surgical follow-up per surgery team OSTEOMYELITIS RIGHT FIRST TOE - pain and swelling improved. Unable to obtain MRI. Arterial Doppler study showed evidence of significant peripheral arterial disease in the right leg. -Outpatient follow-up with interventional radiology in [place] after he has healed from recent surgeries -Anticipate 4-6 weeks of antibiotics, may be able to transition to oral antibiotics early next week (cipro/clinda or cipro/doxy?) ANEMIA OF ACUTE ILLNESS - patient has required frequent blood draws and has been critically ill and hospitalized for some time. Hemoglobin has responded well to transfusion. -Transfuse if less than 8 SIGMOID COLON PERFORATION RESULTING IN ACUTE ABDOMEN AND SEPTIC SHOCK - postop course complicated by wound dehiscence as above. He is receiving nutritional support via TPN. Persistent difficulty with very prolonged ileus. -Continue TPN -Discontinue erythromycin -Trial of metoclopramide -Post operative care per surgical team -Pain control -Saline lock IV ACUTE HYPOXIC RESPIRATORY FAILURE - respiratory status stable. Still requiring some supplemental oxygen. Volume status appropriate today. -Coughing, deep breathing and suctioning as able -Reassess volume status daily COPD - 22-thac-ebub smoking history but no evidence for exacerbation at this time. -Nebulized albuterol as needed -Vigorous pulmonary toilet during the postoperative period HISTORY OF LUNG AND PROSTATE CARCINOMA - lung cancer felt to be stable, had been receiving treatment for management of prostate carcinoma prior to admission MAINTENANCE ISSUES -DVT prophylaxis; SCUDs -GI prophylaxis; Protonix 40 mg daily -Sorto catheter; has been successfully removed -Nutrition; full liquids DISPOSITION - anticipate discharge to skilled nursing after the hospital stay. Poor nutrition, extremely prolonged ileus and osteomyelitis are preventing safe discharge at this time. Stephon Christy M.D.
--- NOTE | 2018-04-23 14:55 | OR ---
DATE OF PROCEDURE: 04/21/2018 PREOPERATIVE DIAGNOSIS: Indication for long-term central venous access. POSTOPERATIVE DIAGNOSIS: Indication for long-term central venous access. OPERATIVE PROCEDURE: Placement of a double-lumen Latham catheter via right subclavian vein approach ([id number]). ANESTHESIA: Local plus IV sedation. INDICATION FOR PROCEDURE: This morning, it is apparent the patient is going to need TPN for extended duration, and given this, he is to undergo a Latham catheter placement to minimize problems with subsequent infection. Potential risks of the procedure were reviewed with the patient's daughter, and they wished to proceed. DETAILS OF PROCEDURE: The patient was taken to the operating room and placed in a supine position. IV sedation was administered, after which the upper chest and neck areas were prepped and draped. The right subclavian area was anesthetized with 1% lidocaine mixed with Marcaine and the right subclavian vein cannulated. Guidewire manipulated from there into the superior vena cava. Some additional local was then injected, and the Latham catheter was then tunneled between the original skin puncture site in an area roughly 3 to 4 fingerbreadths inferiorly along the chest wall where a separate stab wound had been placed. The catheter was cut such that the tip would lie in the area of the right atrium and, over the introducer and Peel-Away catheter system, was delivered without difficulty. Good in and out flow was noted. Ports were flushed with heparinized saline. The catheter was sutured to the skin exit site with 3-0 nylon stitch and the skin puncture site with 4-0 Vicryl subdermal stitch and Steri-Strips were applied. The patient was taken to the recovery room in satisfactory condition. There were no other complications. Freid Linn MD /[id number]
[2018-04-23] MEDS: Metoclopramide 10 MG/2 ML SDV IVPUSH SCH ×2 (15:15→22:27)
[2018-04-24] MEDS: Linezolid 600 MG in Premix Bag 1 BAG IV SCH ×2 (01:00→12:07)
[2018-04-24] MEDS: Magnesium Sulfate/Water 2 GM in Premix Bag 1 BAG IV SCH (03:19)
[2018-04-24] MEDS: Albuterol/Ipratropium 3.0-0.5 MG/3 ML Neb Soln NEB SCH ×4 (07:20→21:31)
[2018-04-24] MEDS ORDERED: Central Total Parenteral Nutrition Bag SCH (07:30)
[2018-04-24] MEDS: Pantoprazole 40 MG Tab.CR PO SCH (08:19)
[2018-04-24] MEDS: Metoclopramide 10 MG/2 ML SDV IVPUSH SCH ×3 (08:19→21:31)
[2018-04-24] MEDS: Bisacodyl 10 MG Supp RECTAL SCH ×2 (08:19→21:31)
[2018-04-24] MEDS: Lactobacillus Rhamnosus GG (Probiotic) Cap PO SCH ×2 (08:19→21:31)
[2018-04-24] MEDS: 1: AA 5%/Calcium/D15W/Lytes 1,000 ML with MVI, Adult with Vitamin K 10 ML, Chromium/Copp IV SCH ×6 (08:24→20:43)
--- NOTE | 2018-04-24 09:59 | PN ---
DATE OF SERVICE: 04/24/2018 SUBJECTIVE: He slept well during the night. Wound VAC is off. Incision healing well. In the past 24 hours, he has had Dilaudid a couple of times. He is getting suppository through his ostomy site. He has a small amount of stool in the ostomy tube now. Gastric tube put out zero for the past 24 hours. Urine output was 1775. He continues to get TPN therapy and his oral intake was 660. Afebrile. LABORATORY DATA: Hemoglobin 9.9, potassium 4.2, calcium is 7.9, alkaline phosphatase is 141, albumin is 2.2. OBJECTIVE: GENERAL: Kodak Silva is a 77-year-old male. VITAL SIGNS: TPR is 99.3, 81, 18, blood pressure 114/58. HEENT: Negative. NECK: Supple. HEART: Regular rate and rhythm. LUNGS: Clear. ABDOMEN: Incision looks good. The area where the wound VAC was removed is superficial. Ileostomy intact. G-tube intact. EXTREMITIES: Without peripheral edema. ASSESSMENT: 1. Placement of Latham catheter on 04/21/2018, Fredi Linn MD. 2. Allergic reaction to vancomycin. 3. Osteomyelitis of right great toe. 4. Insertion of subclavian triple lumen, exploratory laparotomy, drainage of intraabdominal abscess, small bowel resection, small bowel stricturoplasty, placement of Vicryl mesh for closure of fascial dehiscence and evisceration of the intraabdominal abscess in focal small bowel stricture. Surgeon, Fredi Linn MD. Date of surgery, 04/07/2018. 5. Percutaneous endoscopy gastrostomy tube placed for nutrition with an adequate oral intake. Date of surgery, 04/02/2018. Surgeon, Fredi Linn MD. 6. Exploratory laparotomy, peritoneal lavage, sigmoid colon resection, Cristina pouch, colostomy for acute abdomen and perforated viscus and sepsis. Date of surgery, 03/18/2018. Surgeon, Fredi Linn MD. 7. Malnutrition requiring TPN therapy. PLAN: 1. Clamp G-tube, flush 50 mL water b.i.d., unclamp if any bloating, abdominal pain, nausea. 2. Accurate intake and output. Chart actual food and liquid intake. Continue same TPN rate and content. 3. Check CBC, CMP, phos in a.m. Rula Morley PA-C /[id number]
[2018-04-24] MEDS: Ciprofloxacin in D5W 400 MG in Premix Bag 1 BAG IV SCH ×2 (11:14)
[2018-04-24] MEDS: traMADol 50 MG Tab PO PRN (11:18)
--- NOTE | 2018-04-24 16:17 | PCM.PN ---
- General Info Date of Service: 04/24/18 Subjective Update: There were no acute events overnight. Abdominal pain is stable compared to yesterday and remains mild and involves the lower part of his abdomen. No fevers overnight. Minimal shortness of breath. He is able to walk a few feet and back with physical therapy's assistance. Tolerating clear liquids. 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 Functional Status: Reports: Pain Controlled, Tolerating Diet - Review of Systems General: Reports: Weakness Gastrointestinal: Reports: Abdominal Pain - Patient Data Vitals - Most Recent: Last Vital Signs Temp 37.2 C 04/24/18 11:29 Pulse 84 04/24/18 14:55 Resp 18 04/24/18 11:29 BP 113/67 04/24/18 11:29 Pulse Ox 94 L 04/24/18 14:55 Weight - Most Recent: 69.944 kg I&O - Last 24 Hours: Intake & Output 04/24/18 04/24/18 04/24/18 06:59 14:59 22:59 Intake Total 650 840 Output Total 425 1250 Balance 225 -410 Lab Results Last 24 Hours: Laboratory Results - last 24 hr 04/24/18 04/24/18 Range/Units 05:00 05:00 WBC 12.7 H (4.5-11.0) K/uL RBC 3.41 L (4.30-5.90) M/uL Hgb 9.9 L (12.0-15.0) g/dL Hct 32.3 L (40.0-54.0) % MCV 95 (80-98) fL MCH 29 (27-31) pg MCHC 31 L (32-36) % Plt Count 348 (150-400) K/uL Sodium 136 L (140-148) mmol/L Potassium 4.2 (3.6-5.2) mmol/L Chloride 101 (100-108) mmol/L Carbon Dioxide 28 (21-32) mmol/L Anion Gap 11.2 (5.0-14.0) mmol/L BUN 35 H (7-18) mg/dL Creatinine 1.0 (0.8-1.3) mg/dL Est Cr Clr Drug Dosing 59.53 mL/min Estimated GFR (MDRD) > 60 (>60) Glucose 122 H (74-106) mg/dL Calcium 7.9 L (8.5-10.1) mg/dL Phosphorus 4.4 (2.5-4.9) mg/dL Total Bilirubin 0.5 (0.2-1.0) mg/dL AST 20 (15-37) U/L ALT 30 (12-78) U/L Alkaline Phosphatase 141 H (46-116) U/L NT-Pro-B Natriuret Pep 179 (5-450) pg/mL Total Protein 5.8 L (6.4-8.2) g/dL Albumin 2.2 L (3.4-5.0) g/dL Globulin 3.6 H (2.3-3.5) g/dL Albumin/Globulin Ratio 0.6 L (1.2-2.2) Med Orders - Current: Current Medications Albuterol (Proventil Neb Soln) 2.5 mg NEB Q4H PRN PRN Reason: Dyspnea Last Admin: 04/17/18 05:03 Dose: 2.5 mg Albuterol/Ipratropium (Duoneb 3.0-0.5 Mg/3 Ml) 3 ml NEB QIDRT CIARRA Last Admin: 04/24/18 14:54 Dose: 3 ml Bisacodyl (Dulcolax) 10 mg RECTAL BID [facility] Last Admin: 04/24/18 08:19 Dose: 10 mg Calcium Carbonate/Glycine (Tums) 1,000 mg PO Q2H PRN PRN Reason: Indigestion Last Admin: 04/15/18 20:27 Dose: 1,000 mg Dimethicone/Zinc Oxide (Rash Relief-Zinc Oxide [place]) 0 gm TOP ASDIRECTED PRN PRN Reason: Rash Last Admin: 03/28/18 16:55 Dose: 1 spray Diphenhydramine HCl (Benadryl) 25 mg IVPUSH Q4H PRN PRN Reason: Itching Hydrocortisone (Hydrocortisone 1% Crm) 30 gm TOP ASDIRECTED PRN PRN Reason: itching Hydromorphone HCl (Dilaudid) 0.5 mg IVPUSH Q2H PRN PRN Reason: Pain Last Admin: 04/23/18 22:35 Dose: 0.5 mg Hydroxyzine HCl (Vistaril) 50 mg IM Q6H PRN PRN Reason: Pain Last Admin: 04/19/18 15:43 Dose: 50 mg Multivitamins/Minerals 10 ml/Chromium/Copper/Manganese/Seleni/Zn 1 ml/ Amino Ac/ Electrol/Dextrose/Calcium 1,011 mls @ 82 mls/hr IV .BY DURATION [facility] Last Admin: 04/23/18 19:52 Dose: 82 mls/hr Amino Ac/Electrol/Dextrose/Calcium (Clinimix E 5/15) 1,000 mls @ 82 mls/hr IV .BY DURATION [facility] Last Admin: 04/24/18 08:24 Dose: 82 mls/hr Ciprofloxacin/Dextrose 400 mg/ (Premix) 200 mls @ 200 mls/hr IV Q12H [facility] Last Admin: 04/24/18 11:14 Dose: 200 mls/hr Linezolid 600 mg/ Premix 300 mls @ 300 mls/hr IV Q12H [facility] Last Admin: 04/24/18 12:07 Dose: 300 mls/hr Lactobacillus Rhamnosus (Culturelle) 1 cap PO BID [facility] Last Admin: 04/24/18 08:19 Dose: 1 cap Lorazepam (Ativan) 0.5 mg IVPUSH Q4H PRN PRN Reason: Nausea Metoclopramide HCl (Reglan) 10 mg IVPUSH TID [facility] Last Admin: 04/24/18 14:42 Dose: 10 mg Morphine Sulfate (Morphine 10 Mg/0.5 Ml Oral Syringe) 5 mg PO Q4HWA PRN PRN Reason: Pain Last Admin: 04/20/18 19:59 Dose: 5 mg Ondansetron HCl (Zofran) 4 mg IVPUSH Q6H PRN PRN Reason: Nausea/Vomiting Pantoprazole Sodium (Protonix) 40 mg PO ACBREAKFAST [facility] Last Admin: 04/24/18 08:19 Dose: 40 mg Tramadol HCl (Ultram) 25 - 50 mg PO Q6H PRN PRN Reason: Pain Last Admin: 04/24/18 11:18 Dose: 50 mg Discontinued Medications Acetaminophen (Tylenol) 650 mg RECTAL Q4H PRN PRN Reason: Fever Acetaminophen (Tylenol) 650 mg PO Q4H PRN PRN Reason: Pain/Fever Last Admin: 04/05/18 20:14 Dose: 650 mg Acetaminophen (Tylenol) 1,000 mg GTUBE Q6H [facility] Last Admin: 04/17/18 14:02 Dose: 1,000 mg Acetaminophen (Tylenol) 1,000 mg GTUBE Q6H [facility] Last Admin: 04/21/18 02:39 Dose: 1,000 mg Albuterol/Ipratropium (Duoneb 3.0-0.5 Mg/3 Ml) 3 ml NEB Q4H PRN PRN Reason: Dyspnea Albuterol/Ipratropium (Duoneb 3.0-0.5 Mg/3 Ml) 3 ml NEB ONETIME ONE Stop: 04/07/18 10:31 Last Admin: 04/07/18 10:26 Dose: Not Given Bupivacaine HCl (Marcaine 0.5%) Confirm Administered Dose 50 ml .ROUTE .STK-MED ONE Stop: 04/07/18 12:06 Bupivacaine HCl (Marcaine 0.5%) Confirm Administered Dose 50 ml .ROUTE .STK-MED ONE Stop: 04/19/18 07:31 Bupivacaine HCl (Marcaine 0.5%) Confirm Administered Dose 50 ml .ROUTE .STK-MED ONE Stop: 04/21/18 07:22 Last Admin: 04/21/18 13:46 Dose: 3.5 ml Ropivacaine 34 ml/Dexamethasone 8 mg/Epinephrine HCl 0.4 mg/ Sodium Chloride 43.6 ml 0 ml NERVRT ASDIRECTED [facility] Last Admin: 04/07/18 16:01 Dose: 80 syringe Dexamethasone (Dexamethasone) Confirm Administered Dose 4 mg .ROUTE .STK-MED ONE Stop: 03/18/18 19:48 Dexamethasone (Dexamethasone) Confirm Administered Dose 4 mg .ROUTE .STK-MED ONE Stop: 04/07/18 10:56 Diphenhydramine HCl (Benadryl) 25 mg IVPUSH Q6H PRN PRN Reason: Itching Last Admin: 04/22/18 23:22 Dose: 25 mg Epinephrine HCl (Adrenalin) Confirm Administered Dose 1 mg .ROUTE .STK-MED ONE Stop: 03/18/18 21:07 Erythromycin (Jh-Tab) 250 mg PO TID@0730,1630,2130 [facility] Last Admin: 04/17/18 10:03 Dose: 250 mg Erythromycin (Jh-Tab) 250 mg PO TID@0800,1400,2000 [facility] Stop: 04/18/18 08:01 Last Admin: 04/18/18 08:16 Dose: 250 mg Erythromycin Ethylsuccinate (Eryped 400) 125 mg PO Q6H [facility] Last Admin: 04/07/18 15:14 Dose: Not Given Erythromycin Ethylsuccinate (Eryped 200) 250 mg PO TID@0800,1400,2000 [facility] Last Admin: 04/23/18 07:35 Dose: 250 mg Fentanyl (Sublimaze) Confirm Administered Dose 250 mcg .ROUTE .STK-MED ONE Stop: 03/18/18 19:48 Fentanyl (Sublimaze) Confirm Administered Dose 250 mcg .ROUTE .STK-MED ONE Stop: 04/02/18 12:59 Fentanyl (Sublimaze) Confirm Administered Dose 250 mcg .ROUTE .STK-MED ONE Stop: 04/07/18 10:56 Fentanyl (Sublimaze) Confirm Administered Dose 100 mcg .ROUTE .STK-MED ONE Stop: 04/21/18 12:05 Furosemide (Lasix) 20 mg IVPUSH ONETIME ONE Stop: 03/23/18 09:46 Last Admin: 03/23/18 10:18 Dose: 20 mg Furosemide (Lasix) 20 mg IVPUSH NOW ONE Stop: 03/25/18 10:01 Last Admin: 03/25/18 10:17 Dose: 20 mg Furosemide (Lasix) 20 mg IVPUSH ONETIME ONE Stop: 03/26/18 09:16 Last Admin: 03/26/18 09:10 Dose: 20 mg Furosemide (Lasix) 20 mg IVPUSH ONETIME ONE Stop: 03/26/18 16:01 Last Admin: 03/26/18 18:28 Dose: Not Given Furosemide (Lasix) 20 mg IVPUSH NOW ONE Stop: 03/27/18 10:01 Last Admin: 03/27/18 10:26 Dose: 20 mg Furosemide (Lasix) 20 mg IVPUSH ONETIME ONE Stop: 03/30/18 13:11 Last Admin: 03/30/18 13:36 Dose: 20 mg Furosemide (Lasix) 20 mg IVPUSH NOW ONE Stop: 03/31/18 11:55 Last Admin: 03/31/18 13:04 Dose: 20 mg Furosemide (Lasix) 20 mg IVPUSH NOW ONE Stop: 04/01/18 12:05 Last Admin: 04/01/18 12:43 Dose: 20 mg Furosemide (Lasix) 20 mg IVPUSH NOW ONE Stop: 04/02/18 15:46 Last Admin: 04/02/18 15:53 Dose: 20 mg Furosemide (Lasix) 40 mg IVPUSH NOW ONE Stop: 04/03/18 09:01 Last Admin: 04/03/18 09:45 Dose: 40 mg Furosemide (Lasix) 40 mg IVPUSH NOW ONE Stop: 04/04/18 15:31 Last Admin: 04/04/18 15:55 Dose: 40 mg Furosemide (Lasix) 40 mg IVPUSH NOW ONE Stop: 04/05/18 09:01 Last Admin: 04/05/18 10:15 Dose: 40 mg Furosemide (Lasix) 40 mg IVPUSH ONETIME ONE Stop: 04/08/18 12:01 Last Admin: 04/08/18 11:01 Dose: 40 mg Furosemide (Lasix) 40 mg IVPUSH ONETIME STA Stop: 04/09/18 06:48 Last Admin: 04/09/18 10:16 Dose: Not Given Furosemide (Lasix) 20 mg IVPUSH ONETIME ONE Stop: 04/09/18 12:01 Last Admin: 04/09/18 13:43 Dose: Not Given Furosemide (Lasix) 40 mg IVPUSH ONETIME STA Stop: 04/09/18 10:08 Last Admin: 04/09/18 10:09 Dose: 40 mg Furosemide (Lasix) Confirm Administered Dose 40 mg .ROUTE .STK-MED ONE Stop: 04/09/18 10:08 Last Admin: 04/09/18 10:16 Dose: 40 mg Furosemide (Lasix) 40 mg IVPUSH ONETIME ONE Stop: 04/09/18 16:01 Last Admin: 04/09/18 15:54 Dose: 40 mg Furosemide (Lasix) 40 mg IVPUSH ONETIME ONE Stop: 04/10/18 12:01 Last Admin: 04/10/18 14:03 Dose: 40 mg Furosemide (Lasix) 20 mg IVPUSH ONETIME ONE Stop: 04/10/18 20:01 Last Admin: 04/10/18 21:10 Dose: 20 mg Furosemide (Lasix) 40 mg IVPUSH NOW ONE Stop: 04/11/18 11:31 Last Admin: 04/11/18 12:58 Dose: 40 mg Furosemide (Lasix) 40 mg IVPUSH NOW ONE Stop: 04/12/18 11:21 Last Admin: 04/12/18 13:28 Dose: 40 mg Furosemide (Lasix) Confirm Administered Dose 40 mg .ROUTE .STK-MED ONE Stop: 04/12/18 13:27 Last Admin: 04/12/18 13:52 Dose: Not Given Furosemide (Lasix) 40 mg IVPUSH NOW ONE Stop: 04/13/18 08:31 Last Admin: 04/13/18 08:42 Dose: 40 mg Furosemide (Lasix) 40 mg IVPUSH NOW ONE Stop: 04/14/18 10:01 Last Admin: 04/14/18 10:09 Dose: 40 mg Furosemide (Lasix) 20 mg IV ONETIME ONE Stop: 04/17/18 12:31 Last Admin: 04/17/18 12:22 Dose: 20 mg Furosemide (Lasix) 20 mg IVPUSH ONETIME ONE Stop: 04/20/18 12:55 Last Admin: 04/20/18 13:57 Dose: 20 mg Furosemide (Lasix) 20 mg IVPUSH ONETIME ONE Stop: 04/21/18 10:01 Last Admin: 04/21/18 09:37 Dose: 20 mg Furosemide (Lasix) 40 mg IVPUSH ONETIME ONE Stop: 04/21/18 10:01 Last Admin: 04/21/18 09:52 Dose: 40 mg Furosemide (Lasix) 20 mg IVPUSH ONETIME ONE Stop: 04/22/18 11:01 Furosemide (Lasix) 40 mg IVPUSH ONETIME ONE Stop: 04/23/18 08:01 Last Admin: 04/23/18 07:38 Dose: 40 mg Furosemide (Lasix) 40 mg IVPUSH ONETIME ONE Stop: 04/22/18 11:01 Last Admin: 04/22/18 10:32 Dose: 40 mg Glycopyrrolate (Robinul) Confirm Administered Dose 1 mg .ROUTE .STK-MED ONE Stop: 03/18/18 19:48 Glycopyrrolate (Robinul) Confirm Administered Dose 1 mg .ROUTE .STK-MED ONE Stop: 04/07/18 10:56 Heparin Sodium (Porcine) (Heparin Sodium) Confirm Administered Dose 5,000 units .ROUTE .STK-MED ONE Stop: 03/18/18 19:51 Heparin Sodium (Porcine) (Heparin Lock Flush 100 Units/Ml) 500 units FLUSH ASDIRECTED PRN PRN Reason: IV Use Last Admin: 04/22/18 05:16 Dose: 500 units Heparin Sodium (Porcine) (Heparin Lock Flush 100 Units/Ml) Confirm Administered Dose 500 units .ROUTE .STK-MED ONE Stop: 03/22/18 12:17 Last Admin: 03/22/18 12:30 Dose: Not Given Heparin Sodium (Porcine) (Heparin Sodium) Confirm Administered Dose 5,000 units .ROUTE .STK-MED ONE Stop: 03/24/18 19:52 Last Admin: 03/24/18 20:33 Dose: 5,000 units Heparin Sodium (Porcine) (Heparin Lock Flush 100 Units/Ml) Confirm Administered Dose 1,000 units .ROUTE .STK-MED ONE Stop: 04/07/18 12:06 Last Admin: 04/07/18 14:30 Dose: 500 units Heparin Sodium (Porcine) (Heparin Lock Flush 100 Units/Ml) Confirm Administered Dose 1,500 units .ROUTE .ST-MED ONE Stop: 04/19/18 07:31 Heparin Sodium (Porcine) (Heparin Lock Flush 100 Units/Ml) Confirm Administered Dose 1,000 units .ROUTE .STK-MED ONE Stop: 04/21/18 07:22 Last Admin: 04/21/18 13:46 Dose: 1,000 units Heparin Sodium (Porcine) (Heparin Lock Flush 100 Units/Ml) Confirm Administered Dose 500 units .ROUTE .STK-MED ONE Stop: 04/21/18 07:23 Last Admin: 04/21/18 13:46 Dose: 500 units Hydrocortisone Sodium Succinate (Solu-Cortef) 100 mg IVPUSH Q12H [facility] Last Admin: 03/28/18 20:15 Dose: 100 mg Hydrocortisone Sodium Succinate (Solu-Cortef) 100 mg IVPUSH DAILY [facility] Last Admin: 03/30/18 13:39 Dose: Not Given Hydromorphone HCl (Dilaudid) 0.5 mg IVPUSH ONETIME ONE Stop: 03/18/18 17:43 Last Admin: 03/18/18 17:47 Dose: 0.5 mg Hydromorphone HCl (Dilaudid) 1 mg IVPUSH ONETIME ONE Stop: 03/18/18 18:18 Last Admin: 01/23/19 18:27 Dose: 1 mg Hydromorphone HCl (Dilaudid) 0.5 mg IVPUSH ONETIME ONE Stop: 04/16/18 09:58 Last Admin: 04/16/18 10:31 Dose: 0.5 mg Hydroxyzine HCl (Vistaril) 100 mg IM Q6H PRN PRN Reason: Pain Last Admin: 04/11/18 08:49 Dose: 100 mg Sodium Chloride (Normal Saline) 1,000 mls @ 1,000 mls/hr IV ASDIRECTED [facility] Last Admin: 03/18/18 17:47 Dose: 1,000 mls/hr Sodium Chloride (Normal Saline) 1,000 mls @ 999 mls/hr IV ASDIRECTED [facility] Last Admin: 03/18/18 19:31 Dose: 999 mls/hr Meropenem 500 mg/ Sodium (Chloride) 50 mls @ 100 mls/hr IV ONETIME ONE Stop: 03/18/18 19:09 Last Admin: 03/18/18 19:01 Dose: 100 mls/hr Sodium Chloride (Normal Saline) Confirm Administered Dose 50 mls @ as directed .ROUTE .STK-MED ONE Stop: 03/18/18 19:40 Last Admin: 03/18/18 20:19 Dose: Not Given Aztreonam 2 gm/ Sodium (Chloride) 50 mls @ 100 mls/hr IV ONETIME ONE Stop: 03/18/18 20:01 Last Admin: 03/18/18 20:44 Dose: 100 mls/hr Meropenem 500 mg/ Sodium (Chloride) 50 mls @ 100 mls/hr IV ONETIME ONE Stop: 03/18/18 20:00 Last Admin: 03/18/18 19:40 Dose: 100 mls/hr Sodium Chloride (Normal Saline) Confirm Administered Dose 250 mls @ as directed .ROUTE .STK-MED ONE Stop: 03/18/18 19:59 Lactated Ringer's (Ringers, Lactated) Confirm Administered Dose 1,000 mls @ as directed .ROUTE .STK-MED ONE Stop: 03/18/18 19:59 Sodium Chloride (Normal Saline) Confirm Administered Dose 500 mls @ as directed .ROUTE .STK-MED ONE Stop: 03/18/18 19:59 Norepinephrine Bitartrate 8 mg (/ Dextrose/Water) 258 mls @ 3.87 mls/hr IV TITRATE CIARRA; Protocol Last Admin: 03/19/18 11:45 Dose: 12 mcg/min, 23.22 mls/hr Lactated Ringer's (Ringers, Lactated) Confirm Administered Dose 1,000 mls @ as directed .ROUTE .STK-MED ONE Stop: 03/18/18 21:42 Propofol (Diprivan 100 Ml) 100 mls @ 2.082 mls/hr IV TITRATE CIARRA; Protocol Last Titration: 03/27/18 06:35 Dose: 10 mcg/kg/min, 4.164 mls/hr Aztreonam 1 gm/ Sodium (Chloride) 50 mls @ 100 mls/hr IV Q8H CIARRA Last Admin: 03/19/18 05:29 Dose: 100 mls/hr Potassium Chloride/Dextrose/Sod Cl (D5 1/2 Ns W/ 20 Meq/L Kcl) 1,000 mls @ 150 mls/hr IV ASDIRECTED CIARRA Last Admin: 03/18/18 23:11 Dose: 150 mls/hr Meropenem 1 gm/ Sodium (Chloride) 50 mls @ 100 mls/hr IV Q12H CIARRA Stop: 03/29/18 22:00 Last Admin: 03/29/18 20:10 Dose: 100 mls/hr Lactated Ringer's (Ringers, Lactated) 1,000 mls @ 500 mls/hr IV ASDIRECTED CIARRA Last Admin: 03/19/18 01:23 Dose: 500 mls/hr Vasopressin 100 units/ (Dextrose/Water) 255 mls @ 1.53 mls/hr IV TITRATE CIARRA; Protocol Stop: 03/21/18 13:00 Last Titration: 03/21/18 11:03 Dose: 0.02 units/min, 3.06 mls/hr Lactated Ringer's (Ringers, Lactated) 1,000 mls @ 500 mls/hr IV BOLUS CIARRA Stop: 03/19/18 05:29 Last Admin: 03/19/18 04:02 Dose: 500 mls/hr Aztreonam/Dextrose 1 gm/ (Premix) 50 mls @ 100 mls/hr IV Q8H CIARRA Last Admin: 03/28/18 05:26 Dose: 100 mls/hr Lactated Ringer's (Ringers, Lactated) 1,000 mls @ 500 mls/hr IV .BOLUS ONE Stop: 03/19/18 14:59 Last Admin: 03/19/18 14:27 Dose: 500 mls/hr Lactated Ringer's (Ringers, Lactated) 1,000 mls @ 150 mls/hr IV ASDIRECTED CIARRA Last Admin: 03/21/18 11:53 Dose: 150 mls/hr Norepinephrine Bitartrate 8 mg (/ Dextrose/Water) 250 mls @ 3.75 mls/hr IV TITRATE CIARRA; Protocol Last Titration: 03/27/18 09:04 Dose: 4 mcg/min, 7.5 mls/hr Magnesium Sulfate 2 gm/ Premix 50 mls @ 25 mls/hr IV Q6H CIARRA Stop: 03/20/18 17:59 Last Admin: 03/20/18 16:30 Dose: 25 mls/hr Vancomycin HCl 1.25 gm/ Sodium (Chloride) 250 mls @ 170 mls/hr IV Q24H CIARRA Last Admin: 03/22/18 10:06 Dose: 170 mls/hr Vasopressin 40 units/ Dextrose (/Water) 100 mls @ 3 mls/hr IV TITRATE CIARRA; Protocol Last Titration: 03/23/18 01:00 Dose: 0 units/min, 0 mls/hr Potassium Chloride 20 meq/ (Premix) 100 mls @ 50 mls/hr IV Q2H CIARRA Stop: 03/21/18 22:59 Last Admin: 03/21/18 22:20 Dose: 50 mls/hr Potassium Chloride 20 meq/ (Premix) 100 mls @ 50 mls/hr IV Q2H [facility] Stop: 03/22/18 12:59 Last Admin: 03/22/18 11:30 Dose: 50 mls/hr Potassium Chloride 20 meq/ (Premix) 100 mls @ 50 mls/hr IV Q2H CIARRA Stop: 03/22/18 17:29 Last Admin: 03/22/18 16:13 Dose: 50 mls/hr Potassium Chloride (Kcl 20 Meq In Water 100 Ml) 100 mls @ 50 mls/hr IV Q2H CIARRA Stop: 03/23/18 01:59 Last Admin: 03/23/18 00:53 Dose: 50 mls/hr Potassium Chloride 40 meq/ (Premix) 100 mls @ 25 mls/hr IV ONETIME ONE Stop: 03/23/18 14:29 Last Admin: 03/23/18 10:31 Dose: 25 mls/hr Vancomycin HCl 1.4 gm/ Sodium (Chloride) 250 mls @ 170 mls/hr IV Q24H [facility] Last Admin: 03/24/18 11:13 Dose: 170 mls/hr Multivitamins/Minerals 10 ml/Chromium/Copper/Manganese/Seleni/Zn 1 ml/ Amino Ac/ Electrol/Dextrose/Calcium 1,011 mls @ 75 mls/hr IV .BY DURATION [facility] Last Admin: 03/25/18 22:34 Dose: 75 mls/hr Amino Ac/Electrol/Dextrose/Calcium (Clinimix E 5/15) 1,000 mls @ 75 mls/hr IV .BY DURATION [facility] Last Admin: 03/25/18 08:11 Dose: 75 mls/hr Vasopressin 100 units/ (Dextrose/Water) 255 mls @ 1.53 mls/hr IV TITRATE CIARRA; Protocol Last Titration: 03/25/18 11:51 Dose: 0 units/min, 0 mls/hr Potassium Chloride 20 meq/ (Premix) 100 mls @ 50 mls/hr IV Q2H [facility] Stop: 03/24/18 13:59 Last Admin: 03/24/18 12:13 Dose: 50 mls/hr Multivitamins/Minerals 10 ml/Chromium/Copper/Manganese/Seleni/Zn 1 ml/ Amino Ac/ Electrol/Dextrose/Calcium 1,011 mls @ 75 mls/hr IV .BY DURATION [facility] Last Admin: 03/29/18 06:48 Dose: 75 mls/hr Amino Ac/Electrol/Dextrose/Calcium (Clinimix E 5/15) 1,000 mls @ 75 mls/hr IV .BY DURATION [facility] Last Admin: 03/29/18 20:12 Dose: 75 mls/hr Heparin Sodium (Porcine) 5,000 (units/ Sodium Chloride) 501 mls @ 5 mls/hr IV ASDIRECTED [facility] Last Admin: 03/27/18 12:50 Dose: 5 mls/hr Sodium Chloride (Normal Saline) 1,000 mls @ 50 mls/hr IV ASDIRECTED [facility] Last Admin: 03/30/18 13:36 Dose: 50 mls/hr Dextrose/Sodium Chloride (Dextrose 5%-1/2 Ns) 1,000 mls @ 75 mls/hr IV ASDIRECTED [facility] Last Admin: 03/31/18 23:53 Dose: 75 mls/hr Albumin Human (Albumin 25%) 25 gm in 100 mls @ 25 mls/hr IV Q24H [facility] Stop: 04/02/18 12:59 Last Admin: 04/01/18 08:13 Dose: 25 mls/hr Potassium Phosphate 20 mmole/ (Sodium Chloride) 256.6667 mls @ 85 mls/hr IV Q3H [facility] Stop: 04/01/18 18:59 Last Admin: 04/01/18 18:37 Dose: 85 mls/hr Dextrose/Sodium Chloride (Dextrose 5%-1/2 Ns) 1,000 mls @ 80 mls/hr IV ASDIRECTED [facility] Last Admin: 04/03/18 06:40 Dose: 80 mls/hr Cefazolin Sodium/Dextrose 2 gm (/ Premix) 50 mls @ 100 mls/hr IV ONCALL ONE Stop: 04/02/18 11:59 Last Admin: 04/02/18 13:59 Dose: 100 mls/hr Potassium Acetate 20 meq/ (Sodium Chloride) 110 mls @ 55 mls/hr IV Q2H [facility] Stop: 04/02/18 11:59 Last Admin: 04/02/18 10:10 Dose: 55 mls/hr Magnesium Sulfate 2 gm/ Premix 50 mls @ 25 mls/hr IV Q6H [facility] Stop: 04/05/18 07:59 Last Admin: 04/03/18 12:11 Dose: 25 mls/hr Albumin Human (Albumin 25%) 25 gm in 100 mls @ 25 mls/hr IV ONETIME ONE Stop: 04/02/18 17:59 Last Admin: 04/02/18 15:30 Dose: 25 mls/hr Potassium Chloride 20 meq/Lidocaine HCl 2 ml/ Sodium Chloride 112 mls @ 56 mls/ hr IV Q2H [facility] Stop: 04/03/18 17:59 Last Admin: 04/03/18 17:04 Dose: 56 mls/hr Magnesium Sulfate 2 gm/ Premix 50 mls @ 25 mls/hr IV Q6H [facility] Stop: 04/08/18 03:59 Last Admin: 04/07/18 15:14 Dose: Not Given Potassium Phosphate 15 mmole/ (Sodium Chloride) 255 mls @ 128 mls/hr IV Q2H [facility] Stop: 04/06/18 13:59 Last Admin: 04/06/18 12:49 Dose: 128 mls/hr Dextrose/Lactated Ringer's (Dextrose 5%-Lactated Ringers) 1,000 mls @ 100 mls/ hr IV ASDIRECTED [facility] Last Admin: 04/07/18 08:44 Dose: 100 mls/hr Meropenem 500 mg/ Sodium (Chloride) 50 mls @ 100 mls/hr IV ONCALL ONE Stop: 04/07/18 11:59 Last Admin: 04/07/18 15:13 Dose: Not Given Linezolid (Zyvox) Confirm Administered Dose 300 mls @ as directed .ROUTE .STK- MED ONE Stop: 04/07/18 15:26 Lactated Ringer's (Ringers, Lactated) Confirm Administered Dose 1,000 mls @ as directed .ROUTE .STK-MED ONE Stop: 04/07/18 15:35 Linezolid 600 mg/ Premix 300 mls @ 300 mls/hr IV ONETIME ONE Stop: 04/07/18 17:29 Last Admin: 04/07/18 16:25 Dose: 300 mls/hr Dextrose/Lactated Ringer's (Dextrose 5%-Lactated Ringers) 1,000 mls @ 175 mls/ hr IV ASDIRECTED [facility] Last Admin: 04/08/18 06:21 Dose: 175 mls/hr Linezolid 600 mg/ Premix 300 mls @ 300 mls/hr IV Q12H [facility] Last Admin: 04/10/18 03:46 Dose: 300 mls/hr Meropenem 500 mg/ Sodium (Chloride) 50 mls @ 100 mls/hr IV Q8H [facility] Last Admin: 04/11/18 06:23 Dose: 100 mls/hr Magnesium Sulfate 2 gm/ Premix 50 mls @ 25 mls/hr IV Q6H [facility] Stop: 04/09/18 13:59 Last Admin: 04/09/18 11:40 Dose: 25 mls/hr Dextrose/Lactated Ringer's (Dextrose 5%-Lactated Ringers) 1,000 mls @ 100 drops /hr IV ASDIRECTED [facility] Last Admin: 04/09/18 11:39 Dose: 100 drops/hr Albumin Human (Albumin 25%) 25 gm in 100 mls @ 25 mls/hr IV Q24H [facility] Stop: 04/12/18 13:59 Last Admin: 04/12/18 09:28 Dose: 25 mls/hr Albumin Human (Albumin 25%) 25 gm in 100 mls @ 25 mls/hr IV Q24H [facility] Stop: 04/12/18 17:59 Last Admin: 04/12/18 14:19 Dose: 25 mls/hr Dextrose/Lactated Ringer's (Dextrose 5%-Lactated Ringers) 1,000 mls @ 25 mls/ hr IV ASDIRECTED [facility] Sodium Chloride (Normal Saline) 1,000 mls @ 0 mls/hr IV ASDIRECTED [facility] Potassium Phosphate 22.5 mmole (/ Sodium Chloride) 257.5 mls @ 86 mls/hr IV Q3H [facility] Stop: 04/10/18 15:59 Last Admin: 04/10/18 14:47 Dose: 86 mls/hr Calcium Gluconate 1 gm/ Sodium (Chloride) 110 mls @ 100 mls/hr IV Q6H [facility] Stop: 04/10/18 18:05 Last Admin: 04/10/18 16:21 Dose: 100 mls/hr Doxycycline Hyclate 100 mg/ (Sodium Chloride) 100 mls @ 100 mls/hr IV Q12H [facility] Last Admin: 04/16/18 12:08 Dose: 100 mls/hr Acetaminophen 1,000 mg/ Premix 100 mls @ 400 mls/hr IV Q6H [facility] Stop: 04/12/18 06:44 Last Admin: 04/12/18 05:47 Dose: 400 mls/hr Potassium Chloride 20 meq/ (Premix) 100 mls @ 50 mls/hr IV Q2H [facility] Stop: 04/12/18 14:59 Last Admin: 04/12/18 13:29 Dose: 50 mls/hr Potassium Chloride 40 meq/ (Premix) 100 mls @ 25 mls/hr IV ONETIME ONE Stop: 04/12/18 12:19 Potassium Chloride 40 meq/ (Premix) 100 mls @ 25 mls/hr IV ONETIME ONE Stop: 04/12/18 20:59 Last Admin: 04/12/18 17:45 Dose: 25 mls/hr Potassium Phosphate 25 mmole/ (Sodium Chloride) 108.3333 mls @ 27 mls/hr IV Q4H [facility] Stop: 04/13/18 21:29 Last Admin: 04/13/18 18:13 Dose: 27 mls/hr Magnesium Sulfate 2 gm/ Premix 50 mls @ 25 mls/hr IV Q6H [facility] Stop: 04/17/18 04:59 Last Admin: 04/15/18 08:34 Dose: 25 mls/hr Vancomycin HCl 1.35 gm/ Sodium (Chloride) 250 mls @ 167 mls/hr IV ONETIME ONE Stop: 04/16/18 15:29 Last Admin: 04/16/18 15:04 Dose: 167 mls/hr Vancomycin HCl 1 gm/ Sodium (Chloride) 250 mls @ 167 mls/hr IV Q12H [facility] Last Admin: 04/17/18 02:21 Dose: 167 mls/hr Magnesium Sulfate 2 gm/ Premix 50 mls @ 25 mls/hr IV Q6H [facility] Stop: 04/21/18 02:59 Last Admin: 04/18/18 08:02 Dose: Not Given Magnesium Sulfate 2 gm/ Premix 50 mls @ 25 mls/hr IV Q6H [facility] Stop: 04/18/18 17:59 Last Admin: 04/18/18 16:28 Dose: 25 mls/hr Potassium Chloride 20 meq/ (Premix) 100 mls @ 50 mls/hr IV Q2H [facility] Stop: 04/19/18 08:59 Last Admin: 04/19/18 07:37 Dose: 50 mls/hr Sodium Chloride (Normal Saline) 71 mls @ 3.1 mls/sec IV ASDIRECTED STA Stop: 04/19/18 08:28 Last Admin: 04/19/18 09:15 Dose: 3.1 mls/sec Magnesium Sulfate 2 gm/ Premix 50 mls @ 25 mls/hr IV Q6H [facility] Stop: 04/24/18 04:59 Last Admin: 04/24/18 03:19 Dose: 25 mls/hr Sodium Chloride (Normal Saline) Confirm Administered Dose 500 mls @ as directed .ROUTE .STK-MED ONE Stop: 04/21/18 13:40 Insulin Human Lispro (Humalog) 0 unit SUBCUT Q6H [facility]; Protocol Last Admin: 03/30/18 16:32 Dose: Not Given Insulin Human Lispro (Humalog) 0 unit SUBCUT Q6H [facility]; Protocol Last Admin: 03/31/18 03:52 Dose: Not Given Insulin Human Lispro (Humalog) 0 unit SUBCUT QIDACANDBED [facility]; Protocol Stop: 04/12/18 11:01 Last Admin: 03/31/18 13:17 Dose: Not Given Iopamidol (Isovue-300 (61%)) 100 ml IV . DIRECTED STA Stop: 04/19/18 08:28 Last Admin: 04/19/18 09:15 Dose: 100 ml Lidocaine/Epinephrine (Xylocaine 1% With Epinephrine 1:100,000) Confirm Administered Dose 50 ml .ROUTE .STK-MED ONE Stop: 04/07/18 12:06 Lidocaine/Epinephrine (Xylocaine 1% With Epinephrine 1:100,000) Confirm Administered Dose 50 ml .ROUTE .STK-MED ONE Stop: 04/19/18 07:31 Lidocaine/Epinephrine (Xylocaine 1% With Epinephrine 1:100,000) Confirm Administered Dose 50 ml .ROUTE .STK-MED ONE Stop: 04/21/18 07:22 Last Admin: 04/21/18 13:46 Dose: 3.5 ml Linezolid (Zyvox) 600 mg IRR .STK-MED ONE Stop: 04/07/18 16:06 Last Admin: 04/07/18 16:05 Dose: 600 mg Loperamide HCl (Imodium) 2 mg PO ASDIRECTED PRN PRN Reason: DIARRHEA Melatonin (Melatonin) 9 mg PO BEDTIME [facility] Last Admin: 04/06/18 21:40 Dose: 9 mg Meropenem (Merrem) Confirm Administered Dose 500 mg .ROUTE .STK-MED ONE Stop: 03/18/18 19:40 Last Admin: 03/18/18 20:19 Dose: Not Given Meropenem (Merrem) Confirm Administered Dose 500 mg .ROUTE .STK-MED ONE Stop: 04/07/18 14:38 Last Admin: 04/07/18 16:00 Dose: 500 mg Meropenem (Merrem) Confirm Administered Dose 500 mg .ROUTE .STK-MED ONE Stop: 04/07/18 15:08 Last Admin: 04/07/18 16:05 Dose: 500 mg Methylprednisolone Sodium Succinate (Solu-Medrol) 125 mg IVPUSH ONETIME ONE Stop: 04/17/18 05:49 Last Admin: 04/17/18 06:02 Dose: 125 mg Metoclopramide HCl (Reglan) 5 mg IVPUSH TID CIARRA Last Admin: 04/24/18 08:19 Dose: 5 mg Midazolam HCl (Versed 1 Mg/Ml) Confirm Administered Dose 2 mg .ROUTE .STK-MED ONE Stop: 04/02/18 12:59 Morphine Sulfate (Morphine) 4 mg IVPUSH Q2H PRN PRN Reason: Pain Last Admin: 03/29/18 07:34 Dose: 4 mg Morphine Sulfate (Morphine Double End Trimmer 150 Mg In 30 Ml) 0 mg IV ASDIRECTED PRN; Protocol PRN Reason: Pain Last Admin: 04/07/18 10:00 Dose: 150 mg Morphine Sulfate (Morphine Double End Trimmer 150 Mg In 30 Ml) 0 mg IV ASDIRECTED PRN; Protocol PRN Reason: Pain Naloxone HCl (Narcan) 0.1 mg IV ASDIRECTED PRN PRN Reason: decreased respiratory rate Neostigmine Methylsulfate (Neostigmine) Confirm Administered Dose 5 mg .ROUTE .STK-MED ONE Stop: 03/18/18 19:48 Neostigmine Methylsulfate (Neostigmine) Confirm Administered Dose 5 mg .ROUTE .STK-MED ONE Stop: 04/07/18 10:56 Non-Formulary Medication (Total Parenteral Nutrition, Central) 1,000 ml .XX .Continue Order CIARRA; Protocol Stop: 03/24/18 11:31 Non-Formulary Medication (Total Parenteral Nutrition, Central) 1,000 ml .XX .Continue Order CIARRA; Protocol Non-Formulary Medication (Total Parenteral Nutrition, Central) 1,000 ml .XX .Continue Order CIARRA; Protocol Non-Formulary Medication (Total Parenteral Nutrition, Central) 1,000 ml .XX .Continue Order CIARRA; Protocol Stop: 03/28/18 12:00 Non-Formulary Medication (Total Parenteral Nutrition, Central) 1,000 ml .XX .Continue Order CIARRA Stop: 04/08/18 08:01 Non-Formulary Medication (Total Parenteral Nutrition, Central) 1,000 ml .XX .Continue Order CIARRA Stop: 04/09/18 10:00 Non-Formulary Medication (Total Parenteral Nutrition, Central) 1,000 ml .XX .Continue Order CIARRA Stop: 04/10/18 10:00 Non-Formulary Medication (Total Parenteral Nutrition, Central) 1,000 ml .XX .Continue Order CIARRA Stop: 04/11/18 10:00 Non-Formulary Medication (Total Parenteral Nutrition, Central) 1,000 ml .XX .Continue Order CIARRA Stop: 04/12/18 12:00 Non-Formulary Medication (Total Parenteral Nutrition, Central) 1,000 ml .XX .Continue Order CIARRA Stop: 04/13/18 12:00 Non-Formulary Medication (Total Parenteral Nutrition, Central) 1,000 ml .XX .Continue Order CIARRA Stop: 04/15/18 07:46 Non-Formulary Medication (Total Parenteral Nutrition, Central) 1,000 ml .XX .Continue Order CIARRA Stop: 04/16/18 10:00 Non-Formulary Medication (Total Parenteral Nutrition, Central) 1,000 ml .XX .Continue Order CIARRA Stop: 04/17/18 12:00 Non-Formulary Medication (Total Parenteral Nutrition, Central) 1,000 ml .XX .Continue Order CIARRA Stop: 04/18/18 07:01 Non-Formulary Medication (Total Parenteral Nutrition, Central) 1,000 ml .XX .Continue Order CIARRA Stop: 04/19/18 08:01 Non-Formulary Medication (Total Parenteral Nutrition, Central) 1,000 ml .XX .Continue Order CIARRA Stop: 04/20/18 12:00 Non-Formulary Medication (Total Parenteral Nutrition, Central) 1,000 ml .XX .Continue Order CIARRA Stop: 04/21/18 10:00 Non-Formulary Medication (Total Parenteral Nutrition, Central) 1,000 ml .XX .Continue Order CIARRA Stop: 04/22/18 12:00 Non-Formulary Medication (Total Parenteral Nutrition, Central) 1,000 ml .XX .Continue Order CIARRA Stop: 04/23/18 12:00 Non-Formulary Medication (Total Parenteral Nutrition, Central) 1,000 ml .XX .Continue Order CIARRA Stop: 04/24/18 07:31 Nystatin (Mycostatin) 5 ml PO QID CIARRA Last Admin: 04/04/18 15:25 Dose: 5 ml Ondansetron HCl (Zofran) 4 mg IVPUSH ONETIME ONE Stop: 03/18/18 18:18 Last Admin: 03/18/18 18:27 Dose: 4 mg Ondansetron HCl (Zofran) Confirm Administered Dose 4 mg .ROUTE .STK-MED ONE Stop: 03/18/18 19:48 Ondansetron HCl (Zofran) Confirm Administered Dose 4 mg .ROUTE .STK-MED ONE Stop: 04/07/18 10:56 Oxycodone HCl (Oxycodone) 5 mg PO Q4H PRN PRN Reason: Pain (moderate 4-6) Last Admin: 04/06/18 05:19 Dose: 5 mg Pantoprazole Sodium (Protonix Iv) 40 mg IVPUSH DAILY [facility] Last Admin: 03/28/18 08:34 Dose: 40 mg Pantoprazole Sodium (Protonix) 40 mg PO ACBREAKFAST [facility] Last Admin: 04/07/18 08:10 Dose: 40 mg Pantoprazole Sodium (Protonix Iv) 40 mg IV Q24H [facility] Last Admin: 04/23/18 05:05 Dose: 40 mg Phenylephrine HCl (Isaías-Synephrine) Confirm Administered Dose 10 mg .ROUTE .STK- MED ONE Stop: 03/18/18 20:05 Potassium Chloride (Klor-Con M20) 40 meq PO ONETIME ONE Stop: 04/03/18 13:16 Last Admin: 04/03/18 14:33 Dose: 40 meq Potassium Chloride (Klor-Con M20) 40 meq PO ONETIME ONE Stop: 04/03/18 17:01 Last Admin: 04/03/18 20:55 Dose: 40 meq Potassium Chloride (Klor-Con M20) 40 meq PO ONETIME ONE Stop: 04/04/18 09:01 Last Admin: 04/04/18 09:34 Dose: 40 meq Potassium Chloride (Klor-Con M20) 40 meq PO ONETIME ONE Stop: 04/04/18 17:01 Last Admin: 04/04/18 17:08 Dose: 40 meq Potassium Chloride (Klor-Con M20) 40 meq PO ONETIME ONE Stop: 04/05/18 09:01 Last Admin: 04/05/18 10:14 Dose: 40 meq Potassium Chloride (Klor-Con M20) 40 meq PO ONETIME ONE Stop: 04/05/18 17:01 Last Admin: 04/05/18 18:00 Dose: 40 meq Potassium Chloride (Klor-Con M20) 40 meq PO ONETIME ONE Stop: 04/13/18 08:31 Last Admin: 04/13/18 08:42 Dose: 40 meq Potassium Chloride (Klor-Con M20) 40 meq PO ONETIME ONE Stop: 04/13/18 13:01 Last Admin: 04/13/18 12:44 Dose: 40 meq Potassium Chloride (Klor-Con M20) 40 meq PO ONETIME ONE Stop: 04/13/18 17:01 Last Admin: 04/13/18 16:57 Dose: 40 meq Potassium Chloride (Klor-Con M20) 40 meq PO ONETIME ONE Stop: 04/15/18 14:31 Last Admin: 04/15/18 15:16 Dose: 40 meq Prednisone (Prednisone) 20 mg PO WITHBREAKFAST CIARRA Last Admin: 03/30/18 08:59 Dose: 20 mg Propofol (Diprivan 20 Ml) Confirm Administered Dose 200 mg .ROUTE .STK-MED ONE Stop: 03/18/18 19:48 Propofol (Diprivan 20 Ml) Confirm Administered Dose 200 mg .ROUTE .STK-MED ONE Stop: 04/02/18 12:59 Propofol (Diprivan 20 Ml) Confirm Administered Dose 200 mg .ROUTE .STK-MED ONE Stop: 04/07/18 10:56 Propofol (Diprivan 20 Ml) Confirm Administered Dose 200 mg .ROUTE .STK-MED ONE Stop: 04/21/18 12:05 Rocuronium [place] (Zemuron) Confirm Administered Dose 50 mg .ROUTE .STK-MED ONE Stop: 03/18/18 19:48 Rocuronium [place] (Zemuron) Confirm Administered Dose 50 mg .ROUTE .STK-MED ONE Stop: 04/07/18 10:56 Succinylcholine Chloride (Quelicin) Confirm Administered Dose 200 mg .ROUTE .STK -MED ONE Stop: 03/18/18 19:48 Vancomycin HCl (Vancomycin) 1 gm IV .PHARMACY TO DOSE [facility]ARRA Stop: 03/21/18 16:00 Vancomycin HCl (Vancomycin) 1 gm IV .PHARMACY TO DOSE [facility]ARRA Stop: 04/16/18 14:00 - Exam Quality Assessment: Supplemental Oxygen General: Alert, Oriented, Cooperative, No Acute Distress Lungs: Clear to Auscultation, Normal Respiratory Effort Cardiovascular: Regular Rate, Regular Rhythm GI/Abdominal Exam: Soft, No Distention, Abnormal Bowel Sounds (Hypoactive) Extremities: No Pedal Edema Wound/Incisions: Healing Well (Wound VAC has been removed. There is pink granulation tissue in the midline abdominal incision and there is no evidence for erythema or infection) Psy/Mental Status: Alert, Normal Affect - Problem List Review Problem List Initiated/Reviewed/Updated: Yes - My Orders Last 24 Hours: My Active Orders 04/24/18 07:30 Pantoprazole [ProTONIX] 40 mg PO ACBREAKFAST 04/24/18 14:00 Metoclopramide [Reglan] 10 mg IVPUSH TID - Plan Plan:: ASSESSMENT AND PLAN WOUND DEHISCENCE WITH UNDERLYING ABSCESS - status post exploratory laparotomy . Recent CT showed potential fluid collection though no definite abscess identified. Pain has been stable and vitals have been stable. No fevers. Wound is healing well and wound VAC has been discontinued. Still some evidence for ileus though he is now passing some stool in the colostomy. -Ciprofloxacin 400 mg IV every 12 hours -Zyvox IV -Transitioned to Latham catheter 04/21 -Surgical follow-up per surgery team OSTEOMYELITIS RIGHT FIRST TOE - Unable to obtain MRI. Arterial Doppler study showed evidence of significant peripheral arterial disease in the right leg. No pain or swelling at this time. -Outpatient follow-up with interventional radiology in [place] after he has healed from recent surgeries -Anticipate 4-6 weeks of antibiotics, may be able to transition to oral antibiotics early next week (cipro/clinda or cipro/doxy?) ANEMIA OF ACUTE ILLNESS - patient has required frequent blood draws and has been critically ill and hospitalized for some time. Hemoglobin has been stable since transfusion. -Transfuse if less than 8 SIGMOID COLON PERFORATION RESULTING IN ACUTE ABDOMEN AND SEPTIC SHOCK - postop course complicated by wound dehiscence as above. He is receiving nutritional support via TPN. Persistent difficulty with very prolonged ileus. -Continue TPN -Continue metoclopramide -Post operative care per surgical team -Pain control -Saline lock IV ACUTE HYPOXIC RESPIRATORY FAILURE - respiratory status stable. Still requiring some supplemental oxygen. Volume status appropriate today. -Coughing, deep breathing and suctioning as able -Reassess volume status daily COPD - [id number] smoking history but no evidence for exacerbation at this time. -Nebulized albuterol as needed -Vigorous pulmonary toilet during the postoperative period HISTORY OF LUNG AND PROSTATE CARCINOMA - lung cancer felt to be stable, had been receiving treatment for management of prostate carcinoma prior to admission MAINTENANCE ISSUES -DVT prophylaxis; SCUDs -GI prophylaxis; Protonix 40 mg daily -Sorto catheter; has been successfully removed -Nutrition; clear liquids DISPOSITION - anticipate discharge to skilled nursing after the hospital stay. Poor nutrition, extremely prolonged ileus and osteomyelitis are preventing safe discharge at this time. Stephon Christy M.D.
[2018-04-24] MEDS: Morphine 10 MG/0.5 ML Oral Syringe PO PRN ×2 (18:12→22:03)
[2018-04-25] MEDS: Ciprofloxacin in D5W 400 MG in Premix Bag 1 BAG IV SCH ×6 (00:14→22:56)
[2018-04-25] MEDS: Linezolid 600 MG in Premix Bag 1 BAG IV SCH ×2 (01:08→12:36)
[2018-04-25] MEDS ORDERED: Central Total Parenteral Nutrition Bag SCH (07:00)
[2018-04-25] MEDS: Albuterol/Ipratropium 3.0-0.5 MG/3 ML Neb Soln NEB SCH ×4 (07:14→21:09)
[2018-04-25] MEDS: 1: AA 5%/Calcium/D15W/Lytes 1,000 ML with MVI, Adult with Vitamin K 10 ML, Chromium/Copp IV SCH ×6 (07:43→20:00)
[2018-04-25] MEDS: Lactobacillus Rhamnosus GG (Probiotic) Cap PO SCH ×2 (08:05→21:07)
[2018-04-25] MEDS: Bisacodyl 10 MG Supp RECTAL SCH ×2 (08:05→21:07)
[2018-04-25] MEDS: Pantoprazole 40 MG Tab.CR PO SCH (08:05)
[2018-04-25] MEDS: Metoclopramide 10 MG/2 ML SDV IVPUSH SCH ×3 (08:55→21:07)
--- NOTE | 2018-04-25 10:31 | PN ---
DATE OF SERVICE: 04/25/2018 HISTORY OF PRESENT ILLNESS: Kodak states he feels better today. His G-tube has been clamped for 24 hours and he has had no problems with bloating, abdominal pain, or nausea. Oral intake on a clear liquid diet which did include broth, jello, juice, and water, intake total was 1100. His ostomy put out 225. Urine output 2425. G-tube as stated nothing since it has been clamped. His oral intake, 95% of breakfast, 100% of lunch, and nothing was recorded for his dinner or snacks. Kodak had some pain during the night, but once the abdominal binder was removed, the pain went away. REVIEW OF SYSTEMS: Remainder of review of systems negative for any pertinent positives and negatives. OBJECTIVE: GENERAL: Kodak Silva is a 77-year-old male. He is alert and orientated. VITAL SIGNS: TPR 99.3. He did have a temperature max of 99.7, pulse 84, respirations are 18, blood pressure 127/63. HEENT: Negative. NECK: Supple. HEART: Regular rate and rhythm. LUNGS: Clear. ABDOMEN: Open incision is superficial, dark red color. It is healing well, superficial. Colostomy intact draining dark brown liquid. NG tube is intact. SKIN: There is no skin breakdown around insertion site. EXTREMITIES: Without peripheral edema. ASSESSMENT: 1. Placement of Latham catheter on 04/21/2018 by Fredi Linn MD. 2. Allergic reaction to vancomycin. 3. Osteomyelitis of right great toe. 4. Insertion of subclavian triple lumen, exploratory laparotomy, drainage of intraabdominal abscess, small bowel resection, small bowel stricturoplasty, placement of Vicryl mesh for closure of fascial dehiscence and evisceration of intraabdominal abscess and focal small bowel stricture. Surgeon, Fredi Linn MD. Date of surgery, 04/07/2018. 5. Percutaneous endoscopy gastrostomy tube placement for nutrition with inadequate oral intake. Date of surgery, 04/02/2018. Surgeon, Fredi Linn MD. 6. Exploratory laparotomy, peritoneal lavage, sigmoid resection, Cristina pouch, colostomy for acute abdomen and perforated viscus and sepsis. Date of surgery, 03/18/2018. Surgeon, Fredi Linn MD. 7. Malnutrition requiring TPN therapy. PLAN: 1. Continue to keep NG tube clamped. 2. Continue same TPN rate and content. 3. Full-liquid diet. 4. Check CBC, CMP, mag, and phos in a.m. 5. Use Tegaderm over open incision. 6. Work on pulmonary status. We will evaluate p.r.n. or in a.m. Rula Morley PA-C /[id number]
--- NOTE | 2018-04-25 11:18 | PCM.PN ---
- General Info Date of Service: 04/25/18 Subjective Update: There were no acute events overnight. Mild left lower quadrant abdominal pain today. No significant nausea. No complaints of shortness of breath. He does remain on 2 L of supplemental oxygen. No fevers. No pain in his right great toe today. Tolerating diet and TPN. 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 Functional Status: Reports: Pain Controlled, Tolerating Diet - Review of Systems General: Denies: Fever Gastrointestinal: Reports: Abdominal Pain - Patient Data Vitals - Most Recent: Last Vital Signs Temp 37.1 C 04/25/18 11:11 Pulse 89 04/25/18 11:11 Resp 18 04/25/18 11:11 BP 125/63 04/25/18 11:11 Pulse Ox 96 04/25/18 11:11 Weight - Most Recent: 69.967 kg I&O - Last 24 Hours: Intake & Output 04/24/18 04/25/18 04/25/18 22:59 06:59 14:59 Intake Total 1797 1425 533 Output Total 875 725 825 Balance 922 700 -292 Lab Results Last 24 Hours: Laboratory Results - last 24 hr 04/25/18 04/25/18 Range/Units 04:33 04:33 WBC 11.2 H (4.5-11.0) K/uL RBC 3.40 L (4.30-5.90) M/uL Hgb 9.9 L (12.0-15.0) g/dL Hct 31.8 L (40.0-54.0) % MCV 94 (80-98) fL MCH 29 (27-31) pg MCHC 31 L (32-36) % Plt Count 327 (150-400) K/uL Sodium 138 L (140-148) mmol/L Potassium 4.0 (3.6-5.2) mmol/L Chloride 104 (100-108) mmol/L Carbon Dioxide 28 (21-32) mmol/L Anion Gap 10.0 (5.0-14.0) mmol/L BUN 29 H (7-18) mg/dL Creatinine 0.9 (0.8-1.3) mg/dL Est Cr Clr Drug Dosing 66.14 mL/min Estimated GFR (MDRD) > 60 (>60) Glucose 112 H (74-106) mg/dL Calcium 7.5 L (8.5-10.1) mg/dL Phosphorus 3.4 (2.5-4.9) mg/dL Total Bilirubin 0.4 (0.2-1.0) mg/dL AST 22 (15-37) U/L ALT 30 (12-78) U/L Alkaline Phosphatase 132 H (46-116) U/L Total Protein 5.4 L (6.4-8.2) g/dL Albumin 2.0 L (3.4-5.0) g/dL Globulin 3.4 (2.3-3.5) g/dL Albumin/Globulin Ratio 0.6 L (1.2-2.2) Med Orders - Current: Current Medications Albuterol (Proventil Neb Soln) 2.5 mg NEB Q4H PRN PRN Reason: Dyspnea Last Admin: 04/17/18 05:03 Dose: 2.5 mg Albuterol/Ipratropium (Duoneb 3.0-0.5 Mg/3 Ml) 3 ml NEB QIDRT [facility] Last Admin: 04/25/18 07:14 Dose: 3 ml Bisacodyl (Dulcolax) 10 mg RECTAL BID [facility] Last Admin: 04/25/18 08:05 Dose: 10 mg Calcium Carbonate/Glycine (Tums) 1,000 mg PO Q2H PRN PRN Reason: Indigestion Last Admin: 04/15/18 20:27 Dose: 1,000 mg Dimethicone/Zinc Oxide (Rash Relief-Zinc Oxide [place]) 0 gm TOP ASDIRECTED PRN PRN Reason: Rash Last Admin: 03/28/18 16:55 Dose: 1 spray Diphenhydramine HCl (Benadryl) 25 mg IVPUSH Q4H PRN PRN Reason: Itching Hydrocortisone (Hydrocortisone 1% Crm) 30 gm TOP ASDIRECTED PRN PRN Reason: itching Hydromorphone HCl (Dilaudid) 0.5 mg IVPUSH Q2H PRN PRN Reason: Pain Last Admin: 04/23/18 22:35 Dose: 0.5 mg Hydroxyzine HCl (Vistaril) 50 mg IM Q6H PRN PRN Reason: Pain Last Admin: 04/19/18 15:43 Dose: 50 mg Multivitamins/Minerals 10 ml/Chromium/Copper/Manganese/Seleni/Zn 1 ml/ Amino Ac/ Electrol/Dextrose/Calcium 1,011 mls @ 82 mls/hr IV .BY DURATION [facility] Last Admin: 04/24/18 20:43 Dose: 82 mls/hr Amino Ac/Electrol/Dextrose/Calcium (Clinimix E 15) 1,000 mls @ 82 mls/hr IV .BY DURATION [facility] Last Admin: 04/25/18 07:43 Dose: 82 mls/hr Ciprofloxacin/Dextrose 400 mg/ (Premix) 200 mls @ 200 mls/hr IV Q12H [facility] Last Admin: 04/25/18 00:14 Dose: 200 mls/hr Linezolid 600 mg/ Premix 300 mls @ 300 mls/hr IV Q12H [facility] Last Admin: 04/25/18 01:08 Dose: 300 mls/hr Fat Emulsion Intravenous (Intralipid 20%) 100 mls @ 8.3 mls/hr IV Q48H [facility] Lactobacillus Rhamnosus (Culturelle) 1 cap PO BID [facility] Last Admin: 04/25/18 08:05 Dose: 1 cap Lorazepam (Ativan) 0.5 mg IVPUSH Q4H PRN PRN Reason: Nausea Metoclopramide HCl (Reglan) 10 mg IVPUSH TID [facility] Last Admin: 04/25/18 08:55 Dose: 10 mg Morphine Sulfate (Morphine 10 Mg/0.5 Ml Oral Syringe) 5 mg PO Q4HWA PRN PRN Reason: Pain Last Admin: 04/24/18 22:03 Dose: 5 mg Ondansetron HCl (Zofran) 4 mg IVPUSH Q6H PRN PRN Reason: Nausea/Vomiting Pantoprazole Sodium (Protonix) 40 mg PO ACBREAKFAST [facility] Last Admin: 04/25/18 08:05 Dose: 40 mg Tramadol HCl (Ultram) 25 - 50 mg PO Q6H PRN PRN Reason: Pain Last Admin: 04/24/18 11:18 Dose: 50 mg Discontinued Medications Acetaminophen (Tylenol) 650 mg RECTAL Q4H PRN PRN Reason: Fever Acetaminophen (Tylenol) 650 mg PO Q4H PRN PRN Reason: Pain/Fever Last Admin: 04/05/18 20:14 Dose: 650 mg Acetaminophen (Tylenol) 1,000 mg GTUBE Q6H [facility] Last Admin: 04/17/18 14:02 Dose: 1,000 mg Acetaminophen (Tylenol) 1,000 mg GTUBE Q6H [facility] Last Admin: 04/21/18 02:39 Dose: 1,000 mg Albuterol/Ipratropium (Duoneb 3.0-0.5 Mg/3 Ml) 3 ml NEB Q4H PRN PRN Reason: Dyspnea Albuterol/Ipratropium (Duoneb 3.0-0.5 Mg/3 Ml) 3 ml NEB ONETIME ONE Stop: 04/07/18 10:31 Last Admin: 04/07/18 10:26 Dose: Not Given Bupivacaine HCl (Marcaine 0.5%) Confirm Administered Dose 50 ml .ROUTE .STK-MED ONE Stop: 04/07/18 12:06 Bupivacaine HCl (Marcaine 0.5%) Confirm Administered Dose 50 ml .ROUTE .STK-MED ONE Stop: 04/19/18 07:31 Bupivacaine HCl (Marcaine 0.5%) Confirm Administered Dose 50 ml .ROUTE .STK-MED ONE Stop: 04/21/18 07:22 Last Admin: 04/21/18 13:46 Dose: 3.5 ml Ropivacaine 34 ml/Dexamethasone 8 mg/Epinephrine HCl 0.4 mg/ Sodium Chloride 43.6 ml 0 ml NERVRT ASDIRECTED [facility] Last Admin: 04/07/18 16:01 Dose: 80 syringe Dexamethasone (Dexamethasone) Confirm Administered Dose 4 mg .ROUTE .STK-MED ONE Stop: 03/18/18 19:48 Dexamethasone (Dexamethasone) Confirm Administered Dose 4 mg .ROUTE .STK-MED ONE Stop: 04/07/18 10:56 Diphenhydramine HCl (Benadryl) 25 mg IVPUSH Q6H PRN PRN Reason: Itching Last Admin: 04/22/18 23:22 Dose: 25 mg Epinephrine HCl (Adrenalin) Confirm Administered Dose 1 mg .ROUTE .STK-MED ONE Stop: 03/18/18 21:07 Erythromycin (Jh-Tab) 250 mg PO TID@0730,1630,2130 [facility] Last Admin: 04/17/18 10:03 Dose: 250 mg Erythromycin (Jh-Tab) 250 mg PO TID@0800,1400,2000 [facility] Stop: 04/18/18 08:01 Last Admin: 04/18/18 08:16 Dose: 250 mg Erythromycin Ethylsuccinate (Eryped 400) 125 mg PO Q6H [facility] Last Admin: 04/07/18 15:14 Dose: Not Given Erythromycin Ethylsuccinate (Eryped 200) 250 mg PO TID@0800,1400,2000 [facility] Last Admin: 04/23/18 07:35 Dose: 250 mg Fentanyl (Sublimaze) Confirm Administered Dose 250 mcg .ROUTE .STK-MED ONE Stop: 03/18/18 19:48 Fentanyl (Sublimaze) Confirm Administered Dose 250 mcg .ROUTE .STK-MED ONE Stop: 04/02/18 12:59 Fentanyl (Sublimaze) Confirm Administered Dose 250 mcg .ROUTE .STK-MED ONE Stop: 04/07/18 10:56 Fentanyl (Sublimaze) Confirm Administered Dose 100 mcg .ROUTE .STK-MED ONE Stop: 04/21/18 12:05 Furosemide (Lasix) 20 mg IVPUSH ONETIME ONE Stop: 03/23/18 09:46 Last Admin: 03/23/18 10:18 Dose: 20 mg Furosemide (Lasix) 20 mg IVPUSH NOW ONE Stop: 03/25/18 10:01 Last Admin: 03/25/18 10:17 Dose: 20 mg Furosemide (Lasix) 20 mg IVPUSH ONETIME ONE Stop: 03/26/18 09:16 Last Admin: 03/26/18 09:10 Dose: 20 mg Furosemide (Lasix) 20 mg IVPUSH ONETIME ONE Stop: 03/26/18 16:01 Last Admin: 03/26/18 18:28 Dose: Not Given Furosemide (Lasix) 20 mg IVPUSH NOW ONE Stop: 03/27/18 10:01 Last Admin: 03/27/18 10:26 Dose: 20 mg Furosemide (Lasix) 20 mg IVPUSH ONETIME ONE Stop: 03/30/18 13:11 Last Admin: 03/30/18 13:36 Dose: 20 mg Furosemide (Lasix) 20 mg IVPUSH NOW ONE Stop: 03/31/18 11:55 Last Admin: 03/31/18 13:04 Dose: 20 mg Furosemide (Lasix) 20 mg IVPUSH NOW ONE Stop: 04/01/18 12:05 Last Admin: 04/01/18 12:43 Dose: 20 mg Furosemide (Lasix) 20 mg IVPUSH NOW ONE Stop: 04/02/18 15:46 Last Admin: 04/02/18 15:53 Dose: 20 mg Furosemide (Lasix) 40 mg IVPUSH NOW ONE Stop: 04/03/18 09:01 Last Admin: 04/03/18 09:45 Dose: 40 mg Furosemide (Lasix) 40 mg IVPUSH NOW ONE Stop: 04/04/18 15:31 Last Admin: 04/04/18 15:55 Dose: 40 mg Furosemide (Lasix) 40 mg IVPUSH NOW ONE Stop: 04/05/18 09:01 Last Admin: 04/05/18 10:15 Dose: 40 mg Furosemide (Lasix) 40 mg IVPUSH ONETIME ONE Stop: 04/08/18 12:01 Last Admin: 04/08/18 11:01 Dose: 40 mg Furosemide (Lasix) 40 mg IVPUSH ONETIME STA Stop: 04/09/18 06:48 Last Admin: 04/09/18 10:16 Dose: Not Given Furosemide (Lasix) 20 mg IVPUSH ONETIME ONE Stop: 04/09/18 12:01 Last Admin: 04/09/18 13:43 Dose: Not Given Furosemide (Lasix) 40 mg IVPUSH ONETIME STA Stop: 04/09/18 10:08 Last Admin: 04/09/18 10:09 Dose: 40 mg Furosemide (Lasix) Confirm Administered Dose 40 mg .ROUTE .STK-MED ONE Stop: 04/09/18 10:08 Last Admin: 04/09/18 10:16 Dose: 40 mg Furosemide (Lasix) 40 mg IVPUSH ONETIME ONE Stop: 04/09/18 16:01 Last Admin: 04/09/18 15:54 Dose: 40 mg Furosemide (Lasix) 40 mg IVPUSH ONETIME ONE Stop: 04/10/18 12:01 Last Admin: 04/10/18 14:03 Dose: 40 mg Furosemide (Lasix) 20 mg IVPUSH ONETIME ONE Stop: 04/10/18 20:01 Last Admin: 04/10/18 21:10 Dose: 20 mg Furosemide (Lasix) 40 mg IVPUSH NOW ONE Stop: 04/11/18 11:31 Last Admin: 04/11/18 12:58 Dose: 40 mg Furosemide (Lasix) 40 mg IVPUSH NOW ONE Stop: 04/12/18 11:21 Last Admin: 04/12/18 13:28 Dose: 40 mg Furosemide (Lasix) Confirm Administered Dose 40 mg .ROUTE .STK-MED ONE Stop: 04/12/18 13:27 Last Admin: 04/12/18 13:52 Dose: Not Given Furosemide (Lasix) 40 mg IVPUSH NOW ONE Stop: 04/13/18 08:31 Last Admin: 04/13/18 08:42 Dose: 40 mg Furosemide (Lasix) 40 mg IVPUSH NOW ONE Stop: 04/14/18 10:01 Last Admin: 04/14/18 10:09 Dose: 40 mg Furosemide (Lasix) 20 mg IV ONETIME ONE Stop: 04/17/18 12:31 Last Admin: 04/17/18 12:22 Dose: 20 mg Furosemide (Lasix) 20 mg IVPUSH ONETIME ONE Stop: 04/20/18 12:55 Last Admin: 04/20/18 13:57 Dose: 20 mg Furosemide (Lasix) 20 mg IVPUSH ONETIME ONE Stop: 04/21/18 10:01 Last Admin: 04/21/18 09:37 Dose: 20 mg Furosemide (Lasix) 40 mg IVPUSH ONETIME ONE Stop: 04/21/18 10:01 Last Admin: 04/21/18 09:52 Dose: 40 mg Furosemide (Lasix) 20 mg IVPUSH ONETIME ONE Stop: 04/22/18 11:01 Furosemide (Lasix) 40 mg IVPUSH ONETIME ONE Stop: 04/23/18 08:01 Last Admin: 04/23/18 07:38 Dose: 40 mg Furosemide (Lasix) 40 mg IVPUSH ONETIME ONE Stop: 04/22/18 11:01 Last Admin: 04/22/18 10:32 Dose: 40 mg Glycopyrrolate (Robinul) Confirm Administered Dose 1 mg .ROUTE .STK-MED ONE Stop: 03/18/18 19:48 Glycopyrrolate (Robinul) Confirm Administered Dose 1 mg .ROUTE .STK-MED ONE Stop: 04/07/18 10:56 Heparin Sodium (Porcine) (Heparin Sodium) Confirm Administered Dose 5,000 units .ROUTE .STK-MED ONE Stop: 03/18/18 19:51 Heparin Sodium (Porcine) (Heparin Lock Flush 100 Units/Ml) 500 units FLUSH ASDIRECTED PRN PRN Reason: IV Use Last Admin: 04/22/18 05:16 Dose: 500 units Heparin Sodium (Porcine) (Heparin Lock Flush 100 Units/Ml) Confirm Administered Dose 500 units .ROUTE .STK-MED ONE Stop: 03/22/18 12:17 Last Admin: 03/22/18 12:30 Dose: Not Given Heparin Sodium (Porcine) (Heparin Sodium) Confirm Administered Dose 5,000 units .ROUTE .STK-MED ONE Stop: 03/24/18 19:52 Last Admin: 03/24/18 20:33 Dose: 5,000 units Heparin Sodium (Porcine) (Heparin Lock Flush 100 Units/Ml) Confirm Administered Dose 1,000 units .ROUTE .STK-MED ONE Stop: 04/07/18 12:06 Last Admin: 04/07/18 14:30 Dose: 500 units Heparin Sodium (Porcine) (Heparin Lock Flush 100 Units/Ml) Confirm Administered Dose 1,500 units .ROUTE .STK-MED ONE Stop: 04/19/18 07:31 Heparin Sodium (Porcine) (Heparin Lock Flush 100 Units/Ml) Confirm Administered Dose 1,000 units .ROUTE .STK-MED ONE Stop: 04/21/18 07:22 Last Admin: 04/21/18 13:46 Dose: 1,000 units Heparin Sodium (Porcine) (Heparin Lock Flush 100 Units/Ml) Confirm Administered Dose 500 units .ROUTE .STK-MED ONE Stop: 04/21/18 07:23 Last Admin: 04/21/18 13:46 Dose: 500 units Hydrocortisone Sodium Succinate (Solu-Cortef) 100 mg IVPUSH Q12H [facility] Last Admin: 03/28/18 20:15 Dose: 100 mg Hydrocortisone Sodium Succinate (Solu-Cortef) 100 mg IVPUSH DAILY [facility] Last Admin: 03/30/18 13:39 Dose: Not Given Hydromorphone HCl (Dilaudid) 0.5 mg IVPUSH ONETIME ONE Stop: 03/18/18 17:43 Last Admin: 03/18/18 17:47 Dose: 0.5 mg Hydromorphone HCl (Dilaudid) 1 mg IVPUSH ONETIME ONE Stop: 03/18/18 18:18 Last Admin: 03/18/18 18:27 Dose: 1 mg Hydromorphone HCl (Dilaudid) 0.5 mg IVPUSH ONETIME ONE Stop: 04/16/18 09:58 Last Admin: 04/16/18 10:31 Dose: 0.5 mg Hydroxyzine HCl (Vistaril) 100 mg IM Q6H PRN PRN Reason: Pain Last Admin: 04/11/18 08:49 Dose: 100 mg Sodium Chloride (Normal Saline) 1,000 mls @ 1,000 mls/hr IV ASDIRECTED [facility] Last Admin: 03/18/18 17:47 Dose: 1,000 mls/hr Sodium Chloride (Normal Saline) 1,000 mls @ 999 mls/hr IV ASDIRECTED [facility] Last Admin: 03/18/18 19:31 Dose: 999 mls/hr Meropenem 500 mg/ Sodium (Chloride) 50 mls @ 100 mls/hr IV ONETIME ONE Stop: 03/18/18 19:09 Last Admin: 03/18/18 19:01 Dose: 100 mls/hr Sodium Chloride (Normal Saline) Confirm Administered Dose 50 mls @ as directed .ROUTE .STK-MED ONE Stop: 03/18/18 19:40 Last Admin: 03/18/18 20:19 Dose: Not Given Aztreonam 2 gm/ Sodium (Chloride) 50 mls @ 100 mls/hr IV ONETIME ONE Stop: 03/18/18 20:01 Last Admin: 03/18/18 20:44 Dose: 100 mls/hr Meropenem 500 mg/ Sodium (Chloride) 50 mls @ 100 mls/hr IV ONETIME ONE Stop: 03/18/18 20:00 Last Admin: 03/18/18 19:40 Dose: 100 mls/hr Sodium Chloride (Normal Saline) Confirm Administered Dose 250 mls @ as directed .ROUTE .STK-MED ONE Stop: 03/18/18 19:59 Lactated Ringer's (Ringers, Lactated) Confirm Administered Dose 1,000 mls @ as directed .ROUTE .STK-MED ONE Stop: 03/18/18 19:59 Sodium Chloride (Normal Saline) Confirm Administered Dose 500 mls @ as directed .ROUTE .STK-MED ONE Stop: 03/18/18 19:59 Norepinephrine Bitartrate 8 mg (/ Dextrose/Water) 258 mls @ 3.87 mls/hr IV TITRATE [facility]; Protocol Last Admin: 03/19/18 11:45 Dose: 12 mcg/min, 23.22 mls/hr Lactated Ringer's (Ringers, Lactated) Confirm Administered Dose 1,000 mls @ as directed .ROUTE .STK-MED ONE Stop: 03/18/18 21:42 Propofol (Diprivan 100 Ml) 100 mls @ 2.082 mls/hr IV TITRATE [facility]; Protocol Last Titration: 03/27/18 06:35 Dose: 10 mcg/kg/min, 4.164 mls/hr Aztreonam 1 gm/ Sodium (Chloride) 50 mls @ 100 mls/hr IV Q8H [facility] Last Admin: 03/19/18 05:29 Dose: 100 mls/hr Potassium Chloride/Dextrose/Sod Cl (D5 1/2 Ns W/ 20 Meq/L Kcl) 1,000 mls @ 150 mls/hr IV ASDIRECTED [facility] Last Admin: 03/18/18 23:11 Dose: 150 mls/hr Meropenem 1 gm/ Sodium (Chloride) 50 mls @ 100 mls/hr IV Q12H [facility] Stop: 03/29/18 22:00 Last Admin: 03/29/18 20:10 Dose: 100 mls/hr Lactated Ringer's (Ringers, Lactated) 1,000 mls @ 500 mls/hr IV ASDIRECTED [facility] Last Admin: 03/19/18 01:23 Dose: 500 mls/hr Vasopressin 100 units/ (Dextrose/Water) 255 mls @ 1.53 mls/hr IV TITRATE [facility]; Protocol Stop: 03/21/18 13:00 Last Titration: 03/21/18 11:03 Dose: 0.02 units/min, 3.06 mls/hr Lactated Ringer's (Ringers, Lactated) 1,000 mls @ 500 mls/hr IV BOLUS [facility] Stop: 03/19/18 05:29 Last Admin: 03/19/18 04:02 Dose: 500 mls/hr Aztreonam/Dextrose 1 gm/ (Premix) 50 mls @ 100 mls/hr IV Q8H [facility] Last Admin: 03/28/18 05:26 Dose: 100 mls/hr Lactated Ringer's (Ringers, Lactated) 1,000 mls @ 500 mls/hr IV .BOLUS ONE Stop: 03/19/18 14:59 Last Admin: 03/19/18 14:27 Dose: 500 mls/hr Lactated Ringer's (Ringers, Lactated) 1,000 mls @ 150 mls/hr IV ASDIRECTED [facility] Last Admin: 03/21/18 11:53 Dose: 150 mls/hr Norepinephrine Bitartrate 8 mg (/ Dextrose/Water) 250 mls @ 3.75 mls/hr IV TITRATE [facility]; Protocol Last Titration: 03/27/18 09:04 Dose: 4 mcg/min, 7.5 mls/hr Magnesium Sulfate 2 gm/ Premix 50 mls @ 25 mls/hr IV Q6H [facility] Stop: 03/20/18 17:59 Last Admin: 03/20/18 16:30 Dose: 25 mls/hr Vancomycin HCl 1.25 gm/ Sodium (Chloride) 250 mls @ 170 mls/hr IV Q24H [facility] Last Admin: 03/22/18 10:06 Dose: 170 mls/hr Vasopressin 40 units/ Dextrose (/Water) 100 mls @ 3 mls/hr IV TITRATE [facility]; Protocol Last Titration: 03/23/18 01:00 Dose: 0 units/min, 0 mls/hr Potassium Chloride 20 meq/ (Premix) 100 mls @ 50 mls/hr IV Q2H [facility] Stop: 03/21/18 22:59 Last Admin: 03/21/18 22:20 Dose: 50 mls/hr Potassium Chloride 20 meq/ (Premix) 100 mls @ 50 mls/hr IV Q2H [facility] Stop: 03/22/18 12:59 Last Admin: 03/22/18 11:30 Dose: 50 mls/hr Potassium Chloride 20 meq/ (Premix) 100 mls @ 50 mls/hr IV Q2H [facility] Stop: 03/22/18 17:29 Last Admin: 03/22/18 16:13 Dose: 50 mls/hr Potassium Chloride (Kcl 20 Meq In Water 100 Ml) 100 mls @ 50 mls/hr IV Q2H [facility] Stop: 03/23/18 01:59 Last Admin: 03/23/18 00:53 Dose: 50 mls/hr Potassium Chloride 40 meq/ (Premix) 100 mls @ 25 mls/hr IV ONETIME ONE Stop: 03/23/18 14:29 Last Admin: 03/23/18 10:31 Dose: 25 mls/hr Vancomycin HCl 1.4 gm/ Sodium (Chloride) 250 mls @ 170 mls/hr IV Q24H [facility] Last Admin: 03/24/18 11:13 Dose: 170 mls/hr Multivitamins/Minerals 10 ml/Chromium/Copper/Manganese/Seleni/Zn 1 ml/ Amino Ac/ Electrol/Dextrose/Calcium 1,011 mls @ 75 mls/hr IV .BY DURATION [facility] Last Admin: 03/25/18 22:34 Dose: 75 mls/hr Amino Ac/Electrol/Dextrose/Calcium (Clinimix E 5/15) 1,000 mls @ 75 mls/hr IV .BY DURATION [facility] Last Admin: 03/25/18 08:11 Dose: 75 mls/hr Vasopressin 100 units/ (Dextrose/Water) 255 mls @ 1.53 mls/hr IV TITRATE [facility]; Protocol Last Titration: 03/25/18 11:51 Dose: 0 units/min, 0 mls/hr Potassium Chloride 20 meq/ (Premix) 100 mls @ 50 mls/hr IV Q2H [facility] Stop: 03/24/18 13:59 Last Admin: 03/24/18 12:13 Dose: 50 mls/hr Multivitamins/Minerals 10 ml/Chromium/Copper/Manganese/Seleni/Zn 1 ml/ Amino Ac/ Electrol/Dextrose/Calcium 1,011 mls @ 75 mls/hr IV .BY DURATION [facility] Last Admin: 03/29/18 06:48 Dose: 75 mls/hr Amino Ac/Electrol/Dextrose/Calcium (Clinimix E 5/15) 1,000 mls @ 75 mls/hr IV .BY DURATION [facility] Last Admin: 03/29/18 20:12 Dose: 75 mls/hr Heparin Sodium (Porcine) 5,000 (units/ Sodium Chloride) 501 mls @ 5 mls/hr IV ASDIRECTED [facility] Last Admin: 03/27/18 12:50 Dose: 5 mls/hr Sodium Chloride (Normal Saline) 1,000 mls @ 50 mls/hr IV ASDIRECTED [facility] Last Admin: 03/30/18 13:36 Dose: 50 mls/hr Dextrose/Sodium Chloride (Dextrose 5%-1/2 Ns) 1,000 mls @ 75 mls/hr IV ASDIRECTED [facility] Last Admin: 03/31/18 23:53 Dose: 75 mls/hr Albumin Human (Albumin 25%) 25 gm in 100 mls @ 25 mls/hr IV Q24H [facility] Stop: 04/02/18 12:59 Last Admin: 04/01/18 08:13 Dose: 25 mls/hr Potassium Phosphate 20 mmole/ (Sodium Chloride) 256.6667 mls @ 85 mls/hr IV Q3H [facility] Stop: 04/01/18 18:59 Last Admin: 04/01/18 18:37 Dose: 85 mls/hr Dextrose/Sodium Chloride (Dextrose 5%-1/2 Ns) 1,000 mls @ 80 mls/hr IV ASDIRECTED [facility] Last Admin: 04/03/18 06:40 Dose: 80 mls/hr Cefazolin Sodium/Dextrose 2 gm (/ Premix) 50 mls @ 100 mls/hr IV ONCALL ONE Stop: 04/02/18 11:59 Last Admin: 04/02/18 13:59 Dose: 100 mls/hr Potassium Acetate 20 meq/ (Sodium Chloride) 110 mls @ 55 mls/hr IV Q2H [facility] Stop: 04/02/18 11:59 Last Admin: 04/02/18 10:10 Dose: 55 mls/hr Magnesium Sulfate 2 gm/ Premix 50 mls @ 25 mls/hr IV Q6H [facility] Stop: 04/05/18 07:59 Last Admin: 04/03/18 12:11 Dose: 25 mls/hr Albumin Human (Albumin 25%) 25 gm in 100 mls @ 25 mls/hr IV ONETIME ONE Stop: 04/02/18 17:59 Last Admin: 04/02/18 15:30 Dose: 25 mls/hr Potassium Chloride 20 meq/Lidocaine HCl 2 ml/ Sodium Chloride 112 mls @ 56 mls/ hr IV Q2H [facility] Stop: 04/03/18 17:59 Last Admin: 04/03/18 17:04 Dose: 56 mls/hr Magnesium Sulfate 2 gm/ Premix 50 mls @ 25 mls/hr IV Q6H [facility] Stop: 04/08/18 03:59 Last Admin: 04/07/18 15:14 Dose: Not Given Potassium Phosphate 15 mmole/ (Sodium Chloride) 255 mls @ 128 mls/hr IV Q2H [facility] Stop: 04/06/18 13:59 Last Admin: 04/06/18 12:49 Dose: 128 mls/hr Dextrose/Lactated Ringer's (Dextrose 5%-Lactated Ringers) 1,000 mls @ 100 mls/ hr IV ASDIRECTED [facility] Last Admin: 04/07/18 08:44 Dose: 100 mls/hr Meropenem 500 mg/ Sodium (Chloride) 50 mls @ 100 mls/hr IV ONCALL ONE Stop: 04/07/18 11:59 Last Admin: 04/07/18 15:13 Dose: Not Given Linezolid (Zyvox) Confirm Administered Dose 300 mls @ as directed .ROUTE .STK- MED ONE Stop: 04/07/18 15:26 Lactated Ringer's (Ringers, Lactated) Confirm Administered Dose 1,000 mls @ as directed .ROUTE .STK-MED ONE Stop: 04/07/18 15:35 Linezolid 600 mg/ Premix 300 mls @ 300 mls/hr IV ONETIME ONE Stop: 04/07/18 17:29 Last Admin: 04/07/18 16:25 Dose: 300 mls/hr Dextrose/Lactated Ringer's (Dextrose 5%-Lactated Ringers) 1,000 mls @ 175 mls/ hr IV ASDIRECTED [facility] Last Admin: 04/08/18 06:21 Dose: 175 mls/hr Linezolid 600 mg/ Premix 300 mls @ 300 mls/hr IV Q12H [facility] Last Admin: 04/10/18 03:46 Dose: 300 mls/hr Meropenem 500 mg/ Sodium (Chloride) 50 mls @ 100 mls/hr IV Q8H [facility] Last Admin: 04/11/18 06:23 Dose: 100 mls/hr Magnesium Sulfate 2 gm/ Premix 50 mls @ 25 mls/hr IV Q6H [facility] Stop: 04/09/18 13:59 Last Admin: 04/09/18 11:40 Dose: 25 mls/hr Dextrose/Lactated Ringer's (Dextrose 5%-Lactated Ringers) 1,000 mls @ 100 drops /hr IV ASDIRECTED [facility] Last Admin: 04/09/18 11:39 Dose: 100 drops/hr Albumin Human (Albumin 25%) 25 gm in 100 mls @ 25 mls/hr IV Q24H [facility] Stop: 04/12/18 13:59 Last Admin: 04/12/18 09:28 Dose: 25 mls/hr Albumin Human (Albumin 25%) 25 gm in 100 mls @ 25 mls/hr IV Q24H [facility] Stop: 04/12/18 17:59 Last Admin: 04/12/18 14:19 Dose: 25 mls/hr Dextrose/Lactated Ringer's (Dextrose 5%-Lactated Ringers) 1,000 mls @ 25 mls/ hr IV ASDIRECTED [facility] Sodium Chloride (Normal Saline) 1,000 mls @ 0 mls/hr IV ASDIRECTED [facility] Potassium Phosphate 22.5 mmole (/ Sodium Chloride) 257.5 mls @ 86 mls/hr IV Q3H [facility] Stop: 04/10/18 15:59 Last Admin: 04/10/18 14:47 Dose: 86 mls/hr Calcium Gluconate 1 gm/ Sodium (Chloride) 110 mls @ 100 mls/hr IV Q6H [facility] Stop: 04/10/18 18:05 Last Admin: 04/10/18 16:21 Dose: 100 mls/hr Doxycycline Hyclate 100 mg/ (Sodium Chloride) 100 mls @ 100 mls/hr IV Q12H [facility] Last Admin: 04/16/18 12:08 Dose: 100 mls/hr Acetaminophen 1,000 mg/ Premix 100 mls @ 400 mls/hr IV Q6H [facility] Stop: 04/12/18 06:44 Last Admin: 04/12/18 05:47 Dose: 400 mls/hr Potassium Chloride 20 meq/ (Premix) 100 mls @ 50 mls/hr IV Q2H [facility] Stop: 04/12/18 14:59 Last Admin: 04/12/18 13:29 Dose: 50 mls/hr Potassium Chloride 40 meq/ (Premix) 100 mls @ 25 mls/hr IV ONETIME ONE Stop: 04/12/18 12:19 Potassium Chloride 40 meq/ (Premix) 100 mls @ 25 mls/hr IV ONETIME ONE Stop: 04/12/18 20:59 Last Admin: 04/12/18 17:45 Dose: 25 mls/hr Potassium Phosphate 25 mmole/ (Sodium Chloride) 108.3333 mls @ 27 mls/hr IV Q4H [facility] Stop: 04/13/18 21:29 Last Admin: 04/13/18 18:13 Dose: 27 mls/hr Magnesium Sulfate 2 gm/ Premix 50 mls @ 25 mls/hr IV Q6H [facility] Stop: 04/17/18 04:59 Last Admin: 04/15/18 08:34 Dose: 25 mls/hr Vancomycin HCl 1.35 gm/ Sodium (Chloride) 250 mls @ 167 mls/hr IV ONETIME ONE Stop: 04/16/18 15:29 Last Admin: 04/16/18 15:04 Dose: 167 mls/hr Vancomycin HCl 1 gm/ Sodium (Chloride) 250 mls @ 167 mls/hr IV Q12H [facility] Last Admin: 04/17/18 02:21 Dose: 167 mls/hr Magnesium Sulfate 2 gm/ Premix 50 mls @ 25 mls/hr IV Q6H [facility] Stop: 04/21/18 02:59 Last Admin: 04/18/18 08:02 Dose: Not Given Magnesium Sulfate 2 gm/ Premix 50 mls @ 25 mls/hr IV Q6H [facility] Stop: 04/18/18 17:59 Last Admin: 04/18/18 16:28 Dose: 25 mls/hr Potassium Chloride 20 meq/ (Premix) 100 mls @ 50 mls/hr IV Q2H [facility] Stop: 04/19/18 08:59 Last Admin: 04/19/18 07:37 Dose: 50 mls/hr Sodium Chloride (Normal Saline) 71 mls @ 3.1 mls/sec IV ASDIRECTED [facility] Stop: 04/19/18 08:28 Last Admin: 04/19/18 09:15 Dose: 3.1 mls/sec Magnesium Sulfate 2 gm/ Premix 50 mls @ 25 mls/hr IV Q6H [facility] Stop: 04/24/18 04:59 Last Admin: 04/24/18 03:19 Dose: 25 mls/hr Sodium Chloride (Normal Saline) Confirm Administered Dose 500 mls @ as directed .ROUTE .STK-MED ONE Stop: 04/21/18 13:40 Insulin Human Lispro (Humalog) 0 unit SUBCUT Q6H [facility]; Protocol Last Admin: 03/30/18 16:32 Dose: Not Given Insulin Human Lispro (Humalog) 0 unit SUBCUT Q6H [facility]; Protocol Last Admin: 03/31/18 03:52 Dose: Not Given Insulin Human Lispro (Humalog) 0 unit SUBCUT QIDACANDBED [facility]; Protocol Stop: 04/12/18 11:01 Last Admin: 03/31/18 13:17 Dose: Not Given Iopamidol (Isovue-300 (61%)) 100 ml IV . DIRECTED STA Stop: 04/19/18 08:28 Last Admin: 04/19/18 09:15 Dose: 100 ml Lidocaine/Epinephrine (Xylocaine 1% With Epinephrine 1:100,000) Confirm Administered Dose 50 ml .ROUTE .STK-MED ONE Stop: 04/07/18 12:06 Lidocaine/Epinephrine (Xylocaine 1% With Epinephrine 1:100,000) Confirm Administered Dose 50 ml .ROUTE .STK-MED ONE Stop: 04/19/18 07:31 Lidocaine/Epinephrine (Xylocaine 1% With Epinephrine 1:100,000) Confirm Administered Dose 50 ml .ROUTE .STK-MED ONE Stop: 04/21/18 07:22 Last Admin: 04/21/18 13:46 Dose: 3.5 ml Linezolid (Zyvox) 600 mg IRR .STK-MED ONE Stop: 04/07/18 16:06 Last Admin: 04/07/18 16:05 Dose: 600 mg Loperamide HCl (Imodium) 2 mg PO ASDIRECTED PRN PRN Reason: DIARRHEA Melatonin (Melatonin) 9 mg PO BEDTIME [facility] Last Admin: 04/06/18 21:40 Dose: 9 mg Meropenem (Merrem) Confirm Administered Dose 500 mg .ROUTE .STK-MED ONE Stop: 03/18/18 19:40 Last Admin: 03/18/18 20:19 Dose: Not Given Meropenem (Merrem) Confirm Administered Dose 500 mg .ROUTE .STK-MED ONE Stop: 04/07/18 14:38 Last Admin: 04/07/18 16:00 Dose: 500 mg Meropenem (Merrem) Confirm Administered Dose 500 mg .ROUTE .STK-MED ONE Stop: 04/07/18 15:08 Last Admin: 04/07/18 16:05 Dose: 500 mg Methylprednisolone Sodium Succinate (Solu-Medrol) 125 mg IVPUSH ONETIME ONE Stop: 04/17/18 05:49 Last Admin: 04/17/18 06:02 Dose: 125 mg Metoclopramide HCl (Reglan) 5 mg IVPUSH TID [facility] Last Admin: 04/24/18 08:19 Dose: 5 mg Midazolam HCl (Versed 1 Mg/Ml) Confirm Administered Dose 2 mg .ROUTE .STK-MED ONE Stop: 04/02/18 12:59 Morphine Sulfate (Morphine) 4 mg IVPUSH Q2H PRN PRN Reason: Pain Last Admin: 03/29/18 07:34 Dose: 4 mg Morphine Sulfate (Morphine [employer] 150 Mg In 30 Ml) 0 mg IV ASDIRECTED PRN; Protocol PRN Reason: Pain Last Admin: 04/07/18 10:00 Dose: 150 mg Morphine Sulfate (Morphine [employer] 150 Mg In 30 Ml) 0 mg IV ASDIRECTED PRN; Protocol PRN Reason: Pain Naloxone HCl (Narcan) 0.1 mg IV ASDIRECTED PRN PRN Reason: decreased respiratory rate Neostigmine Methylsulfate (Neostigmine) Confirm Administered Dose 5 mg .ROUTE .STK-MED ONE Stop: 03/18/18 19:48 Neostigmine Methylsulfate (Neostigmine) Confirm Administered Dose 5 mg .ROUTE .STK-MED ONE Stop: 04/07/18 10:56 Non-Formulary Medication (Total Parenteral Nutrition, Central) 1,000 ml .XX .Continue Order [facility]; Protocol Stop: 03/24/18 11:31 Non-Formulary Medication (Total Parenteral Nutrition, Central) 1,000 ml .XX .Continue Order [facility]; Protocol Non-Formulary Medication (Total Parenteral Nutrition, Central) 1,000 ml .XX .Continue Order [facility]; Protocol Non-Formulary Medication (Total Parenteral Nutrition, Central) 1,000 ml .XX .Continue Order [facility]; Protocol Stop: 03/28/18 12:00 Non-Formulary Medication (Total Parenteral Nutrition, Central) 1,000 ml .XX .Continue Order [facility] Stop: 04/08/18 08:01 Non-Formulary Medication (Total Parenteral Nutrition, Central) 1,000 ml .XX .Continue Order [facility] Stop: 04/09/18 10:00 Non-Formulary Medication (Total Parenteral Nutrition, Central) 1,000 ml .XX .Continue Order [facility] Stop: 04/10/18 10:00 Non-Formulary Medication (Total Parenteral Nutrition, Central) 1,000 ml .XX .Continue Order [facility] Stop: 04/11/18 10:00 Non-Formulary Medication (Total Parenteral Nutrition, Central) 1,000 ml .XX .Continue Order [facility] Stop: 04/12/18 12:00 Non-Formulary Medication (Total Parenteral Nutrition, Central) 1,000 ml .XX .Continue Order [facility] Stop: 04/13/18 12:00 Non-Formulary Medication (Total Parenteral Nutrition, Central) 1,000 ml .XX .Continue Order [facility] Stop: 04/15/18 07:46 Non-Formulary Medication (Total Parenteral Nutrition, Central) 1,000 ml .XX .Continue Order [facility] Stop: 04/16/18 10:00 Non-Formulary Medication (Total Parenteral Nutrition, Central) 1,000 ml .XX .Continue Order [facility] Stop: 04/17/18 12:00 Non-Formulary Medication (Total Parenteral Nutrition, Central) 1,000 ml .XX .Continue Order [facility] Stop: 04/18/18 07:01 Non-Formulary Medication (Total Parenteral Nutrition, Central) 1,000 ml .XX .Continue Order [facility] Stop: 04/19/18 08:01 Non-Formulary Medication (Total Parenteral Nutrition, Central) 1,000 ml .XX .Continue Order [facility] Stop: 04/20/18 12:00 Non-Formulary Medication (Total Parenteral Nutrition, Central) 1,000 ml .XX .Continue Order [facility] Stop: 04/21/18 10:00 Non-Formulary Medication (Total Parenteral Nutrition, Central) 1,000 ml .XX .Continue Order [facility] Stop: 04/22/18 12:00 Non-Formulary Medication (Total Parenteral Nutrition, Central) 1,000 ml .XX .Continue Order [facility] Stop: 04/23/18 12:00 Non-Formulary Medication (Total Parenteral Nutrition, Central) 1,000 ml .XX .Continue Order [facility] Stop: 04/24/18 07:31 Non-Formulary Medication (Total Parenteral Nutrition, Central) 1,000 ml .XX .Continue Order [facility] Stop: 04/25/18 09:00 Nystatin (Mycostatin) 5 ml PO QID [facility] Last Admin: 04/04/18 15:25 Dose: 5 ml Ondansetron HCl (Zofran) 4 mg IVPUSH ONETIME ONE Stop: 03/18/18 18:18 Last Admin: 03/18/18 18:27 Dose: 4 mg Ondansetron HCl (Zofran) Confirm Administered Dose 4 mg .ROUTE .STK-MED ONE Stop: 03/18/18 19:48 Ondansetron HCl (Zofran) Confirm Administered Dose 4 mg .ROUTE .STK-MED ONE Stop: 04/07/18 10:56 Oxycodone HCl (Oxycodone) 5 mg PO Q4H PRN PRN Reason: Pain (moderate 4-6) Last Admin: 04/06/18 05:19 Dose: 5 mg Pantoprazole Sodium (Protonix Iv) 40 mg IVPUSH DAILY [facility] Last Admin: 03/28/18 08:34 Dose: 40 mg Pantoprazole Sodium (Protonix) 40 mg PO ACBREAKFAST [facility] Last Admin: 04/07/18 08:10 Dose: 40 mg Pantoprazole Sodium (Protonix Iv) 40 mg IV Q24H [facility] Last Admin: 04/23/18 05:05 Dose: 40 mg Phenylephrine HCl (Isaías-Synephrine) Confirm Administered Dose 10 mg .ROUTE .STK- MED ONE Stop: 03/18/18 20:05 Potassium Chloride (Klor-Con M20) 40 meq PO ONETIME ONE Stop: 04/03/18 13:16 Last Admin: 04/03/18 14:33 Dose: 40 meq Potassium Chloride (Klor-Con M20) 40 meq PO ONETIME ONE Stop: 04/03/18 17:01 Last Admin: 04/03/18 20:55 Dose: 40 meq Potassium Chloride (Klor-Con M20) 40 meq PO ONETIME ONE Stop: 04/04/18 09:01 Last Admin: 04/04/18 09:34 Dose: 40 meq Potassium Chloride (Klor-Con M20) 40 meq PO ONETIME ONE Stop: 04/04/18 17:01 Last Admin: 04/04/18 17:08 Dose: 40 meq Potassium Chloride (Klor-Con M20) 40 meq PO ONETIME ONE Stop: 04/05/18 09:01 Last Admin: 04/05/18 10:14 Dose: 40 meq Potassium Chloride (Klor-Con M20) 40 meq PO ONETIME ONE Stop: 04/05/18 17:01 Last Admin: 04/05/18 18:00 Dose: 40 meq Potassium Chloride (Klor-Con M20) 40 meq PO ONETIME ONE Stop: 04/13/18 08:31 Last Admin: 04/13/18 08:42 Dose: 40 meq Potassium Chloride (Klor-Con M20) 40 meq PO ONETIME ONE Stop: 04/13/18 13:01 Last Admin: 04/13/18 12:44 Dose: 40 meq Potassium Chloride (Klor-Con M20) 40 meq PO ONETIME ONE Stop: 04/13/18 17:01 Last Admin: 04/13/18 16:57 Dose: 40 meq Potassium Chloride (Klor-Con M20) 40 meq PO ONETIME ONE Stop: 04/15/18 14:31 Last Admin: 04/15/18 15:16 Dose: 40 meq Prednisone (Prednisone) 20 mg PO WITHBREAKFAST [facility] Last Admin: 03/30/18 08:59 Dose: 20 mg Propofol (Diprivan 20 Ml) Confirm Administered Dose 200 mg .ROUTE .STK-MED ONE Stop: 03/18/18 19:48 Propofol (Diprivan 20 Ml) Confirm Administered Dose 200 mg .ROUTE .STK-MED ONE Stop: 04/02/18 12:59 Propofol (Diprivan 20 Ml) Confirm Administered Dose 200 mg .ROUTE .STK-MED ONE Stop: 04/07/18 10:56 Propofol (Diprivan 20 Ml) Confirm Administered Dose 200 mg .ROUTE .STK-MED ONE Stop: 04/21/18 12:05 Rocuronium [place] (Zemuron) Confirm Administered Dose 50 mg .ROUTE .STK-MED ONE Stop: 03/18/18 19:48 Rocuronium [place] (Zemuron) Confirm Administered Dose 50 mg .ROUTE .STK-MED ONE Stop: 04/07/18 10:56 Succinylcholine Chloride (Quelicin) Confirm Administered Dose 200 mg .ROUTE .STK -MED ONE Stop: 03/18/18 19:48 Vancomycin HCl (Vancomycin) 1 gm IV .PHARMACY TO DOSE [facility] Stop: 03/21/18 16:00 Vancomycin HCl (Vancomycin) 1 gm IV .PHARMACY TO DOSE [facility] Stop: 04/16/18 14:00 - Exam Quality Assessment: Supplemental Oxygen General: Alert, Oriented, Cooperative, No Acute Distress Lungs: Clear to Auscultation, Normal Respiratory Effort Cardiovascular: Regular Rate, Regular Rhythm GI/Abdominal Exam: Soft, No Distention Extremities: No Pedal Edema. No: Increased Warmth Skin: Warm, Dry Wound/Incisions: Healing Well, No Drainage Psy/Mental Status: Alert, Normal Affect - Problem List Review Problem List Initiated/Reviewed/Updated: Yes - My Orders Last 24 Hours: My Active Orders 04/24/18 14:00 Metoclopramide [Reglan] 10 mg IVPUSH TID - Plan Plan:: ASSESSMENT AND PLAN WOUND DEHISCENCE WITH UNDERLYING ABSCESS - status post exploratory laparotomy . Wound healing well and wound VAC has been discontinued. Still has an ileus but otherwise seems to be doing fairly well. -Ciprofloxacin 400 mg IV every 12 hours -Zyvox IV -Transitioned to [place] catheter 04/21 -Surgical follow-up per surgery team OSTEOMYELITIS RIGHT FIRST TOE - Unable to obtain MRI. Arterial Doppler study showed evidence of significant peripheral arterial disease in the right leg. No pain or swelling at this time. -Outpatient follow-up with interventional radiology in [place] after he has healed from recent surgeries -Anticipate 4-6 weeks of antibiotics, may be able to transition to oral antibiotics early next week (cipro/clinda or cipro/doxy?) ANEMIA OF ACUTE ILLNESS - patient has required frequent blood draws and has been critically ill and hospitalized for some time. Hemoglobin has been stable since transfusion with no evidence for bleeding. -Transfuse if less than 8 SIGMOID COLON PERFORATION RESULTING IN ACUTE ABDOMEN AND SEPTIC SHOCK - postop course complicated by wound dehiscence as above. He is receiving nutritional support via TPN. Persistent difficulty with very prolonged ileus. -Continue TPN -Continue metoclopramide -Post operative care per surgical team -Pain control -Saline lock IV ACUTE HYPOXIC RESPIRATORY FAILURE - respiratory status stable. Still requiring some supplemental oxygen. Volume status appropriate again today. -Coughing, deep breathing and suctioning as able -Reassess volume status daily COPD - [id number] smoking history but no evidence for exacerbation at this time. -Nebulized albuterol as needed -Vigorous pulmonary toilet during the postoperative period HISTORY OF LUNG AND PROSTATE CARCINOMA - lung cancer felt to be stable, had been receiving treatment for management of prostate carcinoma prior to admission MAINTENANCE ISSUES -DVT prophylaxis; SCUDs -GI prophylaxis; Protonix 40 mg daily -Sorto catheter; has been successfully removed -Nutrition; clear liquids DISPOSITION - anticipate discharge to intermediate after the hospital stay. Poor nutrition, extremely prolonged ileus and osteomyelitis are preventing safe discharge at this time. Stephon Christy M.D.
[2018-04-25] MEDS: Fat Emulsion 100 ML IV SCH (15:22)
[2018-04-25] MEDS: HYDROmorphone 0.5 MG/0.5 ML Syringe IVPUSH PRN (18:12)
[2018-04-25] MEDS: LORazepam 2 MG/ML SDV IVPUSH PRN (22:55)
[2018-04-26] MEDS: Albuterol 0.083% 2.5 MG/3 ML Neb Soln NEB PRN (00:20)
[2018-04-26] MEDS: Albuterol/Ipratropium 3.0-0.5 MG/3 ML Neb Soln NEB SCH ×4 (07:00→20:45)
[2018-04-26] MEDS: 1: AA 5%/Calcium/D15W/Lytes 1,000 ML with MVI, Adult with Vitamin K 10 ML, Chromium/Copp IV SCH ×6 (08:40→20:49)
[2018-04-26] MEDS: Metoclopramide 10 MG/2 ML SDV IVPUSH SCH ×3 (09:00→20:46)
[2018-04-26] MEDS: Pantoprazole 40 MG Tab.CR PO SCH (09:00)
--- NOTE | 2018-04-26 10:10 | PCM.PN ---
- General Info Date of Service: 04/26/18 Subjective Update: There were no acute events overnight. Shortness of breath has remained at baseline. No significant toe pain. Still has mild abdominal pain. 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 Urine output has been good. Functional Status: Reports: Pain Controlled, Tolerating Diet - Review of Systems General: Reports: Weakness Gastrointestinal: Reports: Abdominal Pain - Patient Data Vitals - Most Recent: Last Vital Signs Temp 37.1 C 04/26/18 08:15 Pulse 84 04/26/18 08:15 Resp 18 04/26/18 08:15 BP 131/57 L 04/26/18 08:15 Pulse Ox 96 04/26/18 08:15 Weight - Most Recent: 69.967 kg I&O - Last 24 Hours: Intake & Output 04/25/18 04/26/18 04/26/18 22:59 06:59 14:59 Intake Total 1441 240 Output Total 725 625 Balance 716 -385 Lab Results Last 24 Hours: Laboratory Results - last 24 hr 04/26/18 Range/Units 04:00 WBC 10.9 (4.5-11.0) K/uL RBC 3.20 L (4.30-5.90) M/uL Hgb 9.6 L (12.0-15.0) g/dL Hct 30.1 L (40.0-54.0) % MCV 94 (80-98) fL MCH 30 (27-31) pg MCHC 32 (32-36) % Plt Count 288 (150-400) K/uL Med Orders - Current: Current Medications Albuterol (Proventil Neb Soln) 2.5 mg NEB Q4H PRN PRN Reason: Dyspnea Last Admin: 04/17/18 05:03 Dose: 2.5 mg Albuterol/Ipratropium (Duoneb 3.0-0.5 Mg/3 Ml) 3 ml NEB QIDRT [facility] Last Admin: 04/25/18 21:09 Dose: 3 ml Bisacodyl (Dulcolax) 10 mg RECTAL BID [facility] Last Admin: 04/25/18 21:07 Dose: 10 mg Calcium Carbonate/Glycine (Tums) 1,000 mg PO Q2H PRN PRN Reason: Indigestion Last Admin: 04/15/18 20:27 Dose: 1,000 mg Dimethicone/Zinc Oxide (Rash Relief-Zinc Oxide Inland) 0 gm TOP ASDIRECTED PRN PRN Reason: Rash Last Admin: 03/28/18 16:55 Dose: 1 spray Diphenhydramine HCl (Benadryl) 25 mg IVPUSH Q4H PRN PRN Reason: Itching Hydrocortisone (Hydrocortisone 1% Crm) 30 gm TOP ASDIRECTED PRN PRN Reason: itching Hydromorphone HCl (Dilaudid) 0.5 mg IVPUSH Q2H PRN PRN Reason: Pain Last Admin: 04/25/18 18:12 Dose: 0.5 mg Hydroxyzine HCl (Vistaril) 50 mg IM Q6H PRN PRN Reason: Pain Last Admin: 04/19/18 15:43 Dose: 50 mg Multivitamins/Minerals 10 ml/Chromium/Copper/Manganese/Seleni/Zn 1 ml/ Amino Ac/ Electrol/Dextrose/Calcium 1,011 mls @ 82 mls/hr IV .BY DURATION [facility] Last Admin: 04/25/18 20:00 Dose: 82 mls/hr Amino Ac/Electrol/Dextrose/Calcium (Clinimix E 5/15) 1,000 mls @ 82 mls/hr IV .BY DURATION [facility] Last Admin: 04/25/18 07:43 Dose: 82 mls/hr Ciprofloxacin/Dextrose 400 mg/ (Premix) 200 mls @ 200 mls/hr IV Q12H [facility] Last Admin: 04/25/18 22:56 Dose: 200 mls/hr Linezolid 600 mg/ Premix 300 mls @ 300 mls/hr IV Q12H [facility] Last Admin: 04/25/18 12:36 Dose: 300 mls/hr Fat Emulsion Intravenous (Intralipid 20%) 100 mls @ 8.3 mls/hr IV Q48H [facility] Last Admin: 04/25/18 15:22 Dose: 8.3 mls/hr Lactobacillus Rhamnosus (Culturelle) 1 cap PO BID [facility] Last Admin: 04/25/18 21:07 Dose: 1 cap Lorazepam (Ativan) 0.5 mg IVPUSH Q4H PRN PRN Reason: Nausea Last Admin: 04/25/18 22:55 Dose: 0.5 mg Metoclopramide HCl (Reglan) 10 mg IVPUSH TID [facility] Last Admin: 04/25/18 21:07 Dose: 10 mg Morphine Sulfate (Morphine 10 Mg/0.5 Ml Oral Syringe) 5 mg PO Q4HWA PRN PRN Reason: Pain Last Admin: 04/24/18 22:03 Dose: 5 mg Nystatin (Mycostatin) 2 ml PO QID [facility] Stop: 05/14/18 06:01 Ondansetron HCl (Zofran) 4 mg IVPUSH Q6H PRN PRN Reason: Nausea/Vomiting Pantoprazole Sodium (Protonix) 40 mg PO ACBREAKFAST [facility] Last Admin: 04/25/18 08:05 Dose: 40 mg Tramadol HCl (Ultram) 25 - 50 mg PO Q6H PRN PRN Reason: Pain Last Admin: 04/24/18 11:18 Dose: 50 mg Discontinued Medications Acetaminophen (Tylenol) 650 mg RECTAL Q4H PRN PRN Reason: Fever Acetaminophen (Tylenol) 650 mg PO Q4H PRN PRN Reason: Pain/Fever Last Admin: 04/05/18 20:14 Dose: 650 mg Acetaminophen (Tylenol) 1,000 mg GTUBE Q6H [facility] Last Admin: 04/17/18 14:02 Dose: 1,000 mg Acetaminophen (Tylenol) 1,000 mg GTUBE Q6H [facility] Last Admin: 04/21/18 02:39 Dose: 1,000 mg Albuterol/Ipratropium (Duoneb 3.0-0.5 Mg/3 Ml) 3 ml NEB Q4H PRN PRN Reason: Dyspnea Albuterol/Ipratropium (Duoneb 3.0-0.5 Mg/3 Ml) 3 ml NEB ONETIME ONE Stop: 04/07/18 10:31 Last Admin: 04/07/18 10:26 Dose: Not Given Bupivacaine HCl (Marcaine 0.5%) Confirm Administered Dose 50 ml .ROUTE .STK-MED ONE Stop: 04/07/18 12:06 Bupivacaine HCl (Marcaine 0.5%) Confirm Administered Dose 50 ml .ROUTE .STK-MED ONE Stop: 04/19/18 07:31 Bupivacaine HCl (Marcaine 0.5%) Confirm Administered Dose 50 ml .ROUTE .STK-MED ONE Stop: 04/21/18 07:22 Last Admin: 04/21/18 13:46 Dose: 3.5 ml Ropivacaine 34 ml/Dexamethasone 8 mg/Epinephrine HCl 0.4 mg/ Sodium Chloride 43.6 ml 0 ml NERVRT ASDIRECTED [facility] Last Admin: 04/07/18 16:01 Dose: 80 syringe Dexamethasone (Dexamethasone) Confirm Administered Dose 4 mg .ROUTE .STK-MED ONE Stop: 03/18/18 19:48 Dexamethasone (Dexamethasone) Confirm Administered Dose 4 mg .ROUTE .STK-MED ONE Stop: 04/07/18 10:56 Diphenhydramine HCl (Benadryl) 25 mg IVPUSH Q6H PRN PRN Reason: Itching Last Admin: 04/22/18 23:22 Dose: 25 mg Epinephrine HCl (Adrenalin) Confirm Administered Dose 1 mg .ROUTE .STK-MED ONE Stop: 03/18/18 21:07 Erythromycin (Jh-Tab) 250 mg PO TID@0730,1630,2130 [facility] Last Admin: 04/17/18 10:03 Dose: 250 mg Erythromycin (Jh-Tab) 250 mg PO TID@0800,1400,1999 [facility] Stop: 04/18/18 08:01 Last Admin: 04/18/18 08:16 Dose: 250 mg Erythromycin Ethylsuccinate (Eryped 400) 125 mg PO Q6H [facility] Last Admin: 04/07/18 15:14 Dose: Not Given Erythromycin Ethylsuccinate (Eryped 200) 250 mg PO TID@0800,1400,2000 [facility] Last Admin: 04/23/18 07:35 Dose: 250 mg Fentanyl (Sublimaze) Confirm Administered Dose 250 mcg .ROUTE .STK-MED ONE Stop: 03/18/18 19:48 Fentanyl (Sublimaze) Confirm Administered Dose 250 mcg .ROUTE .STK-MED ONE Stop: 04/02/18 12:59 Fentanyl (Sublimaze) Confirm Administered Dose 250 mcg .ROUTE .STK-MED ONE Stop: 04/07/18 10:56 Fentanyl (Sublimaze) Confirm Administered Dose 100 mcg .ROUTE .STK-MED ONE Stop: 04/21/18 12:05 Furosemide (Lasix) 20 mg IVPUSH ONETIME ONE Stop: 03/23/18 09:46 Last Admin: 03/23/18 10:18 Dose: 20 mg Furosemide (Lasix) 20 mg IVPUSH NOW ONE Stop: 03/25/18 10:01 Last Admin: 03/25/18 10:17 Dose: 20 mg Furosemide (Lasix) 20 mg IVPUSH ONETIME ONE Stop: 03/26/18 09:16 Last Admin: 03/26/18 09:10 Dose: 20 mg Furosemide (Lasix) 20 mg IVPUSH ONETIME ONE Stop: 03/26/18 16:01 Last Admin: 03/26/18 18:28 Dose: Not Given Furosemide (Lasix) 20 mg IVPUSH NOW ONE Stop: 03/27/18 10:01 Last Admin: 03/27/18 10:26 Dose: 20 mg Furosemide (Lasix) 20 mg IVPUSH ONETIME ONE Stop: 03/30/18 13:11 Last Admin: 03/30/18 13:36 Dose: 20 mg Furosemide (Lasix) 20 mg IVPUSH NOW ONE Stop: 03/31/18 11:55 Last Admin: 03/31/18 13:04 Dose: 20 mg Furosemide (Lasix) 20 mg IVPUSH NOW ONE Stop: 04/01/18 12:05 Last Admin: 04/01/18 12:43 Dose: 20 mg Furosemide (Lasix) 20 mg IVPUSH NOW ONE Stop: 04/02/18 15:46 Last Admin: 04/02/18 15:53 Dose: 20 mg Furosemide (Lasix) 40 mg IVPUSH NOW ONE Stop: 04/03/18 09:01 Last Admin: 04/03/18 09:45 Dose: 40 mg Furosemide (Lasix) 40 mg IVPUSH NOW ONE Stop: 04/04/18 15:31 Last Admin: 04/04/18 15:55 Dose: 40 mg Furosemide (Lasix) 40 mg IVPUSH NOW ONE Stop: 04/05/18 09:01 Last Admin: 04/05/18 10:15 Dose: 40 mg Furosemide (Lasix) 40 mg IVPUSH ONETIME ONE Stop: 04/08/18 12:01 Last Admin: 04/08/18 11:01 Dose: 40 mg Furosemide (Lasix) 40 mg IVPUSH ONETIME STA Stop: 04/09/18 06:48 Last Admin: 04/09/18 10:16 Dose: Not Given Furosemide (Lasix) 20 mg IVPUSH ONETIME ONE Stop: 04/09/18 12:01 Last Admin: 04/09/18 13:43 Dose: Not Given Furosemide (Lasix) 40 mg IVPUSH ONETIME STA Stop: 04/09/18 10:08 Last Admin: 04/09/18 10:09 Dose: 40 mg Furosemide (Lasix) Confirm Administered Dose 40 mg .ROUTE .STK-MED ONE Stop: 04/09/18 10:08 Last Admin: 04/09/18 10:16 Dose: 40 mg Furosemide (Lasix) 40 mg IVPUSH ONETIME ONE Stop: 04/09/18 16:01 Last Admin: 04/09/18 15:54 Dose: 40 mg Furosemide (Lasix) 40 mg IVPUSH ONETIME ONE Stop: 04/10/18 12:01 Last Admin: 04/10/18 14:03 Dose: 40 mg Furosemide (Lasix) 20 mg IVPUSH ONETIME ONE Stop: 04/10/18 20:01 Last Admin: 04/10/18 21:10 Dose: 20 mg Furosemide (Lasix) 40 mg IVPUSH NOW ONE Stop: 04/11/18 11:31 Last Admin: 04/11/18 12:58 Dose: 40 mg Furosemide (Lasix) 40 mg IVPUSH NOW ONE Stop: 04/12/18 11:21 Last Admin: 04/12/18 13:28 Dose: 40 mg Furosemide (Lasix) Confirm Administered Dose 40 mg .ROUTE .STK-MED ONE Stop: 04/12/18 13:27 Last Admin: 04/12/18 13:52 Dose: Not Given Furosemide (Lasix) 40 mg IVPUSH NOW ONE Stop: 04/13/18 08:31 Last Admin: 04/13/18 08:42 Dose: 40 mg Furosemide (Lasix) 40 mg IVPUSH NOW ONE Stop: 04/14/18 10:01 Last Admin: 04/14/18 10:09 Dose: 40 mg Furosemide (Lasix) 20 mg IV ONETIME ONE Stop: 04/17/18 12:31 Last Admin: 04/17/18 12:22 Dose: 20 mg Furosemide (Lasix) 20 mg IVPUSH ONETIME ONE Stop: 04/20/18 12:55 Last Admin: 04/20/18 13:57 Dose: 20 mg Furosemide (Lasix) 20 mg IVPUSH ONETIME ONE Stop: 04/21/18 10:01 Last Admin: 04/21/18 09:37 Dose: 20 mg Furosemide (Lasix) 40 mg IVPUSH ONETIME ONE Stop: 04/21/18 10:01 Last Admin: 04/21/18 09:52 Dose: 40 mg Furosemide (Lasix) 20 mg IVPUSH ONETIME ONE Stop: 04/22/18 11:01 Furosemide (Lasix) 40 mg IVPUSH ONETIME ONE Stop: 04/23/18 08:01 Last Admin: 04/23/18 07:38 Dose: 40 mg Furosemide (Lasix) 40 mg IVPUSH ONETIME ONE Stop: 04/22/18 11:01 Last Admin: 04/22/18 10:32 Dose: 40 mg Glycopyrrolate (Robinul) Confirm Administered Dose 1 mg .ROUTE .STK-MED ONE Stop: 03/18/18 19:48 Glycopyrrolate (Robinul) Confirm Administered Dose 1 mg .ROUTE .[email or web address]MED ONE Stop: 04/07/18 10:56 Heparin Sodium (Porcine) (Heparin Sodium) Confirm Administered Dose 5,000 units .ROUTE .ST-MED ONE Stop: 03/18/18 19:51 Heparin Sodium (Porcine) (Heparin Lock Flush 100 Units/Ml) 500 units FLUSH ASDIRECTED PRN PRN Reason: IV Use Last Admin: 04/22/18 05:16 Dose: 500 units Heparin Sodium (Porcine) (Heparin Lock Flush 100 Units/Ml) Confirm Administered Dose 500 units .ROUTE .ST-MED ONE Stop: 03/22/18 12:17 Last Admin: 03/22/18 12:30 Dose: Not Given Heparin Sodium (Porcine) (Heparin Sodium) Confirm Administered Dose 5,000 units .ROUTE .ST-MED ONE Stop: 03/24/18 19:52 Last Admin: 03/24/18 20:33 Dose: 5,000 units Heparin Sodium (Porcine) (Heparin Lock Flush 100 Units/Ml) Confirm Administered Dose 1,000 units .ROUTE .STK-MED ONE Stop: 04/07/18 12:06 Last Admin: 04/07/18 14:30 Dose: 500 units Heparin Sodium (Porcine) (Heparin Lock Flush 100 Units/Ml) Confirm Administered Dose 1,500 units .ROUTE .[facility] [[email or web address]MED ONE Stop: 04/19/18 07:31 Heparin Sodium (Porcine) (Heparin Lock Flush 100 Units/Ml) Confirm Administered Dose 1,000 units .ROUTE .STK-MED ONE Stop: 04/21/18 07:22 Last Admin: 04/21/18 13:46 Dose: 1,000 units Heparin Sodium (Porcine) (Heparin Lock Flush 100 Units/Ml) Confirm Administered Dose 500 units .ROUTE .STK-MED ONE Stop: 04/21/18 07:23 Last Admin: 04/21/18 13:46 Dose: 500 units Hydrocortisone Sodium Succinate (Solu-Cortef) 100 mg IVPUSH Q12H [facility] Last Admin: 03/28/18 20:15 Dose: 100 mg Hydrocortisone Sodium Succinate (Solu-Cortef) 100 mg IVPUSH DAILY [facility] Last Admin: 03/30/18 13:39 Dose: Not Given Hydromorphone HCl (Dilaudid) 0.5 mg IVPUSH ONETIME ONE Stop: 03/18/18 17:43 Last Admin: 03/18/18 17:47 Dose: 0.5 mg Hydromorphone HCl (Dilaudid) 1 mg IVPUSH ONETIME ONE Stop: 03/18/18 18:18 Last Admin: 03/18/18 18:27 Dose: 1 mg Hydromorphone HCl (Dilaudid) 0.5 mg IVPUSH ONETIME ONE Stop: 04/16/18 09:58 Last Admin: 04/16/18 10:31 Dose: 0.5 mg Hydroxyzine HCl (Vistaril) 100 mg IM Q6H PRN PRN Reason: Pain Last Admin: 04/11/18 08:49 Dose: 100 mg Sodium Chloride (Normal Saline) 1,000 mls @ 1,000 mls/hr IV ASDIRECTED [facility] Last Admin: 03/18/18 17:47 Dose: 1,000 mls/hr Sodium Chloride (Normal Saline) 1,000 mls @ 999 mls/hr IV ASDIRECTED [facility] Last Admin: 03/18/18 19:31 Dose: 999 mls/hr Meropenem 500 mg/ Sodium (Chloride) 50 mls @ 100 mls/hr IV ONETIME ONE Stop: 03/18/18 19:09 Last Admin: 03/18/18 19:01 Dose: 100 mls/hr Sodium Chloride (Normal Saline) Confirm Administered Dose 50 mls @ as directed .ROUTE .STK-MED ONE Stop: 03/18/18 19:40 Last Admin: 03/18/18 20:19 Dose: Not Given Aztreonam 2 gm/ Sodium (Chloride) 50 mls @ 100 mls/hr IV ONETIME ONE Stop: 03/18/18 20:01 Last Admin: 03/18/18 20:44 Dose: 100 mls/hr Meropenem 500 mg/ Sodium (Chloride) 50 mls @ 100 mls/hr IV ONETIME ONE Stop: 03/18/18 20:00 Last Admin: 03/18/18 19:40 Dose: 100 mls/hr Sodium Chloride (Normal Saline) Confirm Administered Dose 250 mls @ as directed .ROUTE .[facility] ONE Stop: 03/18/18 19:59 Lactated Ringer's (Ringers, Lactated) Confirm Administered Dose 1,000 mls @ as directed .ROUTE .[facility] ONE Stop: 03/18/18 19:59 Sodium Chloride (Normal Saline) Confirm Administered Dose 500 mls @ as directed .ROUTE .[facility] ONE Stop: 03/18/18 19:59 Norepinephrine Bitartrate 8 mg (/ Dextrose/Water) 258 mls @ 3.87 mls/hr IV TITRATE [facility]; Protocol Last Admin: 03/19/18 11:45 Dose: 12 mcg/min, 23.22 mls/hr Lactated Ringer's (Ringers, Lactated) Confirm Administered Dose 1,000 mls @ as directed .ROUTE .[facility] ONE Stop: 03/18/18 21:42 Propofol (Diprivan 100 Ml) 100 mls @ 2.082 mls/hr IV TITRATE [facility]; Protocol Last Titration: 03/27/18 06:35 Dose: 10 mcg/kg/min, 4.164 mls/hr Aztreonam 1 gm/ Sodium (Chloride) 50 mls @ 100 mls/hr IV Q8H [facility] Last Admin: 03/19/18 05:29 Dose: 100 mls/hr Potassium Chloride/Dextrose/Sod Cl (D5 1/2 Ns W/ 20 Meq/L Kcl) 1,000 mls @ 150 mls/hr IV ASDIRECTED [facility] Last Admin: 03/18/18 23:11 Dose: 150 mls/hr Meropenem 1 gm/ Sodium (Chloride) 50 mls @ 100 mls/hr IV Q12H [facility] Stop: 03/29/18 22:00 Last Admin: 03/29/18 20:10 Dose: 100 mls/hr Lactated Ringer's (Ringers, Lactated) 1,000 mls @ 500 mls/hr IV ASDIRECTED [facility] Last Admin: 03/19/18 01:23 Dose: 500 mls/hr Vasopressin 100 units/ (Dextrose/Water) 255 mls @ 1.53 mls/hr IV TITRATE [facility]; Protocol Stop: 03/21/18 13:00 Last Titration: 03/21/18 11:03 Dose: 0.02 units/min, 3.06 mls/hr Lactated Ringer's (Ringers, Lactated) 1,000 mls @ 500 mls/hr IV BOLUS [facility] Stop: 03/19/18 05:29 Last Admin: 03/19/18 04:02 Dose: 500 mls/hr Aztreonam/Dextrose 1 gm/ (Premix) 50 mls @ 100 mls/hr IV Q8H [facility] Last Admin: 03/28/18 05:26 Dose: 100 mls/hr Lactated Ringer's (Ringers, Lactated) 1,000 mls @ 500 mls/hr IV .[facility] ONE Stop: 03/19/18 14:59 Last Admin: 03/19/18 14:27 Dose: 500 mls/hr Lactated Ringer's (Ringers, Lactated) 1,000 mls @ 150 mls/hr IV ASDIRECTED [facility] Last Admin: 03/21/18 11:53 Dose: 150 mls/hr Norepinephrine Bitartrate 8 mg (/ Dextrose/Water) 250 mls @ 3.75 mls/hr IV TITRATE [facility]; Protocol Last Titration: 03/27/18 09:04 Dose: 4 mcg/min, 7.5 mls/hr Magnesium Sulfate 2 gm/ Premix 50 mls @ 25 mls/hr IV Q6H [facility] Stop: 03/20/18 17:59 Last Admin: 03/20/18 16:30 Dose: 25 mls/hr Vancomycin HCl 1.25 gm/ Sodium (Chloride) 250 mls @ 170 mls/hr IV Q24H [facility] Last Admin: 03/22/18 10:06 Dose: 170 mls/hr Vasopressin 40 units/ Dextrose (/Water) 100 mls @ 3 mls/hr IV TITRATE [facility]; Protocol Last Titration: 03/23/18 01:00 Dose: 0 units/min, 0 mls/hr Potassium Chloride 20 meq/ (Premix) 100 mls @ 50 mls/hr IV Q2H [facility] Stop: 03/21/18 22:59 Last Admin: 03/21/18 22:20 Dose: 50 mls/hr Potassium Chloride 20 meq/ (Premix) 100 mls @ 50 mls/hr IV Q2H [facility] Stop: 03/22/18 12:59 Last Admin: 03/22/18 11:30 Dose: 50 mls/hr Potassium Chloride 20 meq/ (Premix) 100 mls @ 50 mls/hr IV Q2H [facility] Stop: 03/22/18 17:29 Last Admin: 03/22/18 16:13 Dose: 50 mls/hr Potassium Chloride (Kcl 20 Meq In Water 100 Ml) 100 mls @ 50 mls/hr IV Q2H [facility] Stop: 03/23/18 01:59 Last Admin: 03/23/18 00:53 Dose: 50 mls/hr Potassium Chloride 40 meq/ (Premix) 100 mls @ 25 mls/hr IV ONETIME ONE Stop: 03/23/18 14:29 Last Admin: 03/23/18 10:31 Dose: 25 mls/hr Vancomycin HCl 1.4 gm/ Sodium (Chloride) 250 mls @ 170 mls/hr IV Q24H [facility] Last Admin: 03/24/18 11:13 Dose: 170 mls/hr Multivitamins/Minerals 10 ml/Chromium/Copper/Manganese/Seleni/Zn 1 ml/ Amino Ac/ Electrol/Dextrose/Calcium 1,011 mls @ 75 mls/hr IV .BY DURATION [facility] Last Admin: 03/25/18 22:34 Dose: 75 mls/hr Amino Ac/Electrol/Dextrose/Calcium (Clinimix E 515) 1,000 mls @ 75 mls/hr IV .BY DURATION [facility] Last Admin: 03/25/18 08:11 Dose: 75 mls/hr Vasopressin 100 units/ (Dextrose/Water) 255 mls @ 1.53 mls/hr IV TITRATE [facility]; Protocol Last Titration: 03/25/18 11:51 Dose: 0 units/min, 0 mls/hr Potassium Chloride 20 meq/ (Premix) 100 mls @ 50 mls/hr IV Q2H [facility] Stop: 03/24/18 13:59 Last Admin: 03/24/18 12:13 Dose: 50 mls/hr Multivitamins/Minerals 10 ml/Chromium/Copper/Manganese/Seleni/Zn 1 ml/ Amino Ac/ Electrol/Dextrose/Calcium 1,011 mls @ 75 mls/hr IV .BY DURATION [facility] Last Admin: 03/29/18 06:48 Dose: 75 mls/hr Amino Ac/Electrol/Dextrose/Calcium (Clinimix E 07/08) 1,000 mls @ 75 mls/hr IV .BY DURATION [facility] Last Admin: 03/29/18 20:12 Dose: 75 mls/hr Heparin Sodium (Porcine) 5,000 (units/ Sodium Chloride) 501 mls @ 5 mls/hr IV ASDIRECTED [facility] Last Admin: 03/27/18 12:50 Dose: 5 mls/hr Sodium Chloride (Normal Saline) 1,000 mls @ 50 mls/hr IV ASDIRECTED [facility] Last Admin: 03/30/18 13:36 Dose: 50 mls/hr Dextrose/Sodium Chloride (Dextrose 5%-1/2 Ns) 1,000 mls @ 75 mls/hr IV ASDIRECTED [facility] Last Admin: 03/31/18 23:53 Dose: 75 mls/hr Albumin Human (Albumin 25%) 25 gm in 100 mls @ 25 mls/hr IV Q24H [facility] Stop: 04/02/18 12:59 Last Admin: 04/01/18 08:13 Dose: 25 mls/hr Potassium Phosphate 20 mmole/ (Sodium Chloride) 256.6667 mls @ 85 mls/hr IV Q3H [facility] Stop: 04/01/18 18:59 Last Admin: 04/01/18 18:37 Dose: 85 mls/hr Dextrose/Sodium Chloride (Dextrose 5%-1/2 Ns) 1,000 mls @ 80 mls/hr IV ASDIRECTED [facility] Last Admin: 04/03/18 06:40 Dose: 80 mls/hr Cefazolin Sodium/Dextrose 2 gm (/ Premix) 50 mls @ 100 mls/hr IV ONCALL ONE Stop: 04/02/18 11:59 Last Admin: 04/02/18 13:59 Dose: 100 mls/hr Potassium Acetate 20 meq/ (Sodium Chloride) 110 mls @ 55 mls/hr IV Q2H [facility] Stop: 04/02/18 11:59 Last Admin: 04/02/18 10:10 Dose: 55 mls/hr Magnesium Sulfate 2 gm/ Premix 50 mls @ 25 mls/hr IV Q6H [facility] Stop: 04/05/18 07:59 Last Admin: 04/03/18 12:11 Dose: 25 mls/hr Albumin Human (Albumin 25%) 25 gm in 100 mls @ 25 mls/hr IV ONETIME ONE Stop: 04/02/18 17:59 Last Admin: 04/02/18 15:30 Dose: 25 mls/hr Potassium Chloride 20 meq/Lidocaine HCl 2 ml/ Sodium Chloride 112 mls @ 56 mls/ hr IV Q2H [facility] Stop: 04/03/18 17:59 Last Admin: 04/03/18 17:04 Dose: 56 mls/hr Magnesium Sulfate 2 gm/ Premix 50 mls @ 25 mls/hr IV Q6H [facility] Stop: 04/08/18 03:59 Last Admin: 04/07/18 15:14 Dose: Not Given Potassium Phosphate 15 mmole/ (Sodium Chloride) 255 mls @ 128 mls/hr IV Q2H [facility] Stop: 04/06/18 13:59 Last Admin: 04/06/18 12:49 Dose: 128 mls/hr Dextrose/Lactated Ringer's (Dextrose 5%-Lactated Ringers) 1,000 mls @ 100 mls/ hr IV ASDIRECTED [facility] Last Admin: 04/07/18 08:44 Dose: 100 mls/hr Meropenem 500 mg/ Sodium (Chloride) 50 mls @ 100 mls/hr IV ONCALL ONE Stop: 04/07/18 11:59 Last Admin: 04/07/18 15:13 Dose: Not Given Linezolid (Zyvox) Confirm Administered Dose 300 mls @ as directed .ROUTE .STK- MED ONE Stop: 04/07/18 15:26 Lactated Ringer's (Ringers, Lactated) Confirm Administered Dose 1,000 mls @ as directed .ROUTE .STK-MED ONE Stop: 04/07/18 15:35 Linezolid 600 mg/ Premix 300 mls @ 300 mls/hr IV ONETIME ONE Stop: 04/07/18 17:29 Last Admin: 04/07/18 16:25 Dose: 300 mls/hr Dextrose/Lactated Ringer's (Dextrose 5%-Lactated Ringers) 1,000 mls @ 175 mls/ hr IV ASDIRECTED [facility] Last Admin: 04/08/18 06:21 Dose: 175 mls/hr Linezolid 600 mg/ Premix 300 mls @ 300 mls/hr IV Q12H [facility] Last Admin: 04/10/18 03:46 Dose: 300 mls/hr Meropenem 500 mg/ Sodium (Chloride) 50 mls @ 100 mls/hr IV Q8H [facility] Last Admin: 04/11/18 06:23 Dose: 100 mls/hr Magnesium Sulfate 2 gm/ Premix 50 mls @ 25 mls/hr IV Q6H [facility] Stop: 04/09/18 13:59 Last Admin: 04/09/18 11:40 Dose: 25 mls/hr Dextrose/Lactated Ringer's (Dextrose 5%-Lactated Ringers) 1,000 mls @ 100 drops /hr IV ASDIRECTED [facility] Last Admin: 04/09/18 11:39 Dose: 100 drops/hr Albumin Human (Albumin 25%) 25 gm in 100 mls @ 25 mls/hr IV Q24H [facility] Stop: 04/12/18 13:59 Last Admin: 04/12/18 09:28 Dose: 25 mls/hr Albumin Human (Albumin 25%) 25 gm in 100 mls @ 25 mls/hr IV Q24H [facility] Stop: 04/12/18 17:59 Last Admin: 04/12/18 14:19 Dose: 25 mls/hr Dextrose/Lactated Ringer's (Dextrose 5%-Lactated Ringers) 1,000 mls @ 25 mls/ hr IV ASDIRECTED [facility] Sodium Chloride (Normal Saline) 1,000 mls @ 0 mls/hr IV ASDIRECTED [facility] Potassium Phosphate 22.5 mmole (/ Sodium Chloride) 257.5 mls @ 86 mls/hr IV Q3H [facility] Stop: 04/10/18 15:59 Last Admin: 04/10/18 14:47 Dose: 86 mls/hr Calcium Gluconate 1 gm/ Sodium (Chloride) 110 mls @ 100 mls/hr IV Q6H [facility] Stop: 04/10/18 18:05 Last Admin: 04/10/18 16:21 Dose: 100 mls/hr Doxycycline Hyclate 100 mg/ (Sodium Chloride) 100 mls @ 100 mls/hr IV Q12H [facility] Last Admin: 04/16/18 12:08 Dose: 100 mls/hr Acetaminophen 1,000 mg/ Premix 100 mls @ 400 mls/hr IV Q6H [facility] Stop: 04/12/18 06:44 Last Admin: 04/12/18 05:47 Dose: 400 mls/hr Potassium Chloride 20 meq/ (Premix) 100 mls @ 50 mls/hr IV Q2H [facility] Stop: 04/12/18 14:59 Last Admin: 04/12/18 13:29 Dose: 50 mls/hr Potassium Chloride 40 meq/ (Premix) 100 mls @ 25 mls/hr IV ONETIME ONE Stop: 04/12/18 12:19 Potassium Chloride 40 meq/ (Premix) 100 mls @ 25 mls/hr IV ONETIME ONE Stop: 04/12/18 20:59 Last Admin: 04/12/18 17:45 Dose: 25 mls/hr Potassium Phosphate 25 mmole/ (Sodium Chloride) 108.3333 mls @ 27 mls/hr IV Q4H [facility] Stop: 04/13/18 21:29 Last Admin: 04/13/18 18:13 Dose: 27 mls/hr Magnesium Sulfate 2 gm/ Premix 50 mls @ 25 mls/hr IV Q6H [facility] Stop: 04/17/18 04:59 Last Admin: 04/15/18 08:34 Dose: 25 mls/hr Vancomycin HCl 1.35 gm/ Sodium (Chloride) 250 mls @ 167 mls/hr IV ONETIME ONE Stop: 04/16/18 15:29 Last Admin: 04/16/18 15:04 Dose: 167 mls/hr Vancomycin HCl 1 gm/ Sodium (Chloride) 250 mls @ 167 mls/hr IV Q12H [facility] Last Admin: 04/17/18 02:21 Dose: 167 mls/hr Magnesium Sulfate 2 gm/ Premix 50 mls @ 25 mls/hr IV Q6H [facility] Stop: 04/21/18 02:59 Last Admin: 04/18/18 08:02 Dose: Not Given Magnesium Sulfate 2 gm/ Premix 50 mls @ 25 mls/hr IV Q6H [facility] Stop: 04/18/18 17:59 Last Admin: 04/18/18 16:28 Dose: 25 mls/hr Potassium Chloride 20 meq/ (Premix) 100 mls @ 50 mls/hr IV Q2H [facility] Stop: 04/19/18 08:59 Last Admin: 04/19/18 07:37 Dose: 50 mls/hr Sodium Chloride (Normal Saline) 71 mls @ 3.1 mls/sec IV ASDIRECTED [facility] Stop: 04/19/18 08:28 Last Admin: 04/19/18 09:15 Dose: 3.1 mls/sec Magnesium Sulfate 2 gm/ Premix 50 mls @ 25 mls/hr IV Q6H [facility] Stop: 04/24/18 04:59 Last Admin: 04/24/18 03:19 Dose: 25 mls/hr Sodium Chloride (Normal Saline) Confirm Administered Dose 500 mls @ as directed .ROUTE .STK-MED ONE Stop: 04/21/18 13:40 Insulin Human Lispro (Humalog) 0 unit SUBCUT Q6H [facility]; Protocol Last Admin: 03/30/18 16:32 Dose: Not Given Insulin Human Lispro (Humalog) 0 unit SUBCUT Q6H [facility]; Protocol Last Admin: 03/31/18 03:52 Dose: Not Given Insulin Human Lispro (Humalog) 0 unit SUBCUT QIDACANDBED [facility]; Protocol Stop: 04/12/18 11:01 Last Admin: 03/31/18 13:17 Dose: Not Given Iopamidol (Isovue-300 (61%)) 100 ml IV . DIRECTED STA Stop: 04/19/18 08:28 Last Admin: 04/19/18 09:15 Dose: 100 ml Lidocaine/Epinephrine (Xylocaine 1% With Epinephrine 1:100,000) Confirm Administered Dose 50 ml .ROUTE .STK-MED ONE Stop: 04/07/18 12:06 Lidocaine/Epinephrine (Xylocaine 1% With Epinephrine 1:100,000) Confirm Administered Dose 50 ml .ROUTE .STK-MED ONE Stop: 04/19/18 07:31 Lidocaine/Epinephrine (Xylocaine 1% With Epinephrine 1:100,000) Confirm Administered Dose 50 ml .ROUTE .STK-MED ONE Stop: 04/21/18 07:22 Last Admin: 04/21/18 13:46 Dose: 3.5 ml Linezolid (Zyvox) 600 mg IRR .STK-MED ONE Stop: 04/07/18 16:06 Last Admin: 04/07/18 16:05 Dose: 600 mg Loperamide HCl (Imodium) 2 mg PO ASDIRECTED PRN PRN Reason: DIARRHEA Melatonin (Melatonin) 9 mg PO BEDTIME [facility] Last Admin: 04/06/18 21:40 Dose: 9 mg Meropenem (Merrem) Confirm Administered Dose 500 mg .ROUTE .STK-MED ONE Stop: 03/18/18 19:40 Last Admin: 03/18/18 20:19 Dose: Not Given Meropenem (Merrem) Confirm Administered Dose 500 mg .ROUTE .STK-MED ONE Stop: 04/07/18 14:38 Last Admin: 04/07/18 16:00 Dose: 500 mg Meropenem (Merrem) Confirm Administered Dose 500 mg .ROUTE .STK-MED ONE Stop: 04/07/18 15:08 Last Admin: 04/07/18 16:05 Dose: 500 mg Methylprednisolone Sodium Succinate (Solu-Medrol) 125 mg IVPUSH ONETIME ONE Stop: 04/17/18 05:49 Last Admin: 04/17/18 06:02 Dose: 125 mg Metoclopramide HCl (Reglan) 5 mg IVPUSH TID [facility] Last Admin: 04/24/18 08:19 Dose: 5 mg Midazolam HCl (Versed 1 Mg/Ml) Confirm Administered Dose 2 mg .ROUTE .STK-MED ONE Stop: 04/02/18 12:59 Morphine Sulfate (Morphine) 4 mg IVPUSH Q2H PRN PRN Reason: Pain Last Admin: 03/29/18 07:34 Dose: 4 mg Morphine Sulfate (Morphine [employer] 150 Mg In 30 Ml) 0 mg IV ASDIRECTED PRN; Protocol PRN Reason: Pain Last Admin: 04/07/18 10:00 Dose: 150 mg Morphine Sulfate (Morphine [employer] Engineer 150 Mg In 30 Ml) 0 mg IV ASDIRECTED PRN; Protocol PRN Reason: Pain Naloxone HCl (Narcan) 0.1 mg IV ASDIRECTED PRN PRN Reason: decreased respiratory rate Neostigmine Methylsulfate (Neostigmine) Confirm Administered Dose 5 mg .ROUTE .STK-MED ONE Stop: 03/18/18 19:48 Neostigmine Methylsulfate (Neostigmine) Confirm Administered Dose 5 mg .ROUTE .STK-MED ONE Stop: 04/07/18 10:56 Non-Formulary Medication (Total Parenteral Nutrition, Central) 1,000 ml .XX .Continue Order [facility]; Protocol Stop: 03/24/18 11:31 Non-Formulary Medication (Total Parenteral Nutrition, Central) 1,000 ml .XX .Continue Order [facility]; Protocol Non-Formulary Medication (Total Parenteral Nutrition, Central) 1,000 ml .XX .Continue Order [facility]; Protocol Non-Formulary Medication (Total Parenteral Nutrition, Central) 1,000 ml .XX .Continue Order [facility]; Protocol Stop: 03/28/18 12:00 Non-Formulary Medication (Total Parenteral Nutrition, Central) 1,000 ml .XX .Continue Order [facility] Stop: 04/08/18 08:01 Non-Formulary Medication (Total Parenteral Nutrition, Central) 1,000 ml .XX .Continue Order [facility] Stop: 04/09/18 10:00 Non-Formulary Medication (Total Parenteral Nutrition, Central) 1,000 ml .XX .Continue Order [facility] Stop: 04/10/18 10:00 Non-Formulary Medication (Total Parenteral Nutrition, Central) 1,000 ml .XX .Continue Order [facility] Stop: 04/11/18 10:00 Non-Formulary Medication (Total Parenteral Nutrition, Central) 1,000 ml .XX .Continue Order [facility] Stop: 04/12/18 12:00 Non-Formulary Medication (Total Parenteral Nutrition, Central) 1,000 ml .XX .Continue Order [facility] Stop: 04/13/18 12:00 Non-Formulary Medication (Total Parenteral Nutrition, Central) 1,000 ml .XX .Continue Order [facility] Stop: 04/15/18 07:46 Non-Formulary Medication (Total Parenteral Nutrition, Central) 1,000 ml .XX .Continue Order [facility] Stop: 04/16/18 10:00 Non-Formulary Medication (Total Parenteral Nutrition, Central) 1,000 ml .XX .Continue Order [facility] Stop: 04/17/18 12:00 Non-Formulary Medication (Total Parenteral Nutrition, Central) 1,000 ml .XX .Continue Order [facility] Stop: 04/18/18 07:01 Non-Formulary Medication (Total Parenteral Nutrition, Central) 1,000 ml .XX .Continue Order [facility] Stop: 04/19/18 08:01 Non-Formulary Medication (Total Parenteral Nutrition, Central) 1,000 ml .XX .Continue Order [facility] Stop: 04/20/18 12:00 Non-Formulary Medication (Total Parenteral Nutrition, Central) 1,000 ml .XX .Continue Order [facility] Stop: 04/21/18 10:00 Non-Formulary Medication (Total Parenteral Nutrition, Central) 1,000 ml .XX .Continue Order [facility] Stop: 04/22/18 12:00 Non-Formulary Medication (Total Parenteral Nutrition, Central) 1,000 ml .XX .Continue Order [facility] Stop: 04/23/18 12:00 Non-Formulary Medication (Total Parenteral Nutrition, Central) 1,000 ml .XX .Continue Order [facility] Stop: 04/24/18 07:31 Non-Formulary Medication (Total Parenteral Nutrition, Central) 1,000 ml .XX .Continue Order [facility] Stop: 04/25/18 09:00 Nystatin (Mycostatin) 5 ml PO QID [facility] Last Admin: 04/04/18 15:25 Dose: 5 ml Ondansetron HCl (Zofran) 4 mg IVPUSH ONETIME ONE Stop: 03/18/18 18:18 Last Admin: 03/18/18 18:27 Dose: 4 mg Ondansetron HCl (Zofran) Confirm Administered Dose 4 mg .ROUTE .STK-MED ONE Stop: 03/18/18 19:48 Ondansetron HCl (Zofran) Confirm Administered Dose 4 mg .ROUTE .STK-MED ONE Stop: 04/07/18 10:56 Oxycodone HCl (Oxycodone) 5 mg PO Q4H PRN PRN Reason: Pain (moderate 4-6) Last Admin: 04/06/18 05:19 Dose: 5 mg Pantoprazole Sodium (Protonix Iv) 40 mg IVPUSH DAILY [facility] Last Admin: 03/28/18 08:34 Dose: 40 mg Pantoprazole Sodium (Protonix) 40 mg PO ACBREAKFAST [facility] Last Admin: 04/07/18 08:10 Dose: 40 mg Pantoprazole Sodium (Protonix Iv) 40 mg IV Q24H [facility] Last Admin: 04/23/18 05:05 Dose: 40 mg Phenylephrine HCl (Isaías-Synephrine) Confirm Administered Dose 10 mg .ROUTE .STK- MED ONE Stop: 03/18/18 20:05 Potassium Chloride (Klor-Con M20) 40 meq PO ONETIME ONE Stop: 04/03/18 13:16 Last Admin: 04/03/18 14:33 Dose: 40 meq Potassium Chloride (Klor-Con M20) 40 meq PO ONETIME ONE Stop: 04/03/18 17:01 Last Admin: 04/03/18 20:55 Dose: 40 meq Potassium Chloride (Klor-Con M20) 40 meq PO ONETIME ONE Stop: 04/04/18 09:01 Last Admin: 04/04/18 09:34 Dose: 40 meq Potassium Chloride (Klor-Con M20) 40 meq PO ONETIME ONE Stop: 04/04/18 17:01 Last Admin: 04/04/18 17:08 Dose: 40 meq Potassium Chloride (Klor-Con M20) 40 meq PO ONETIME ONE Stop: 04/05/18 09:01 Last Admin: 04/05/18 10:14 Dose: 40 meq Potassium Chloride (Klor-Con M20) 40 meq PO ONETIME ONE Stop: 04/05/18 17:01 Last Admin: 04/05/18 18:00 Dose: 40 meq Potassium Chloride (Klor-Con M20) 40 meq PO ONETIME ONE Stop: 04/13/18 08:31 Last Admin: 04/13/18 08:42 Dose: 40 meq Potassium Chloride (Klor-Con M20) 40 meq PO ONETIME ONE Stop: 04/13/18 13:01 Last Admin: 04/13/18 12:44 Dose: 40 meq Potassium Chloride (Klor-Con M20) 40 meq PO ONETIME ONE Stop: 04/13/18 17:01 Last Admin: 04/13/18 16:57 Dose: 40 meq Potassium Chloride (Klor-Con M20) 40 meq PO ONETIME ONE Stop: 04/15/18 14:31 Last Admin: 04/15/18 15:16 Dose: 40 meq Prednisone (Prednisone) 20 mg PO WITHBREAKFAST [facility] Last Admin: 03/30/18 08:59 Dose: 20 mg Propofol (Diprivan 20 Ml) Confirm Administered Dose 200 mg .ROUTE .STK-MED ONE Stop: 03/18/18 19:48 Propofol (Diprivan 20 Ml) Confirm Administered Dose 200 mg .ROUTE .STK-MED ONE Stop: 04/02/18 12:59 Propofol (Diprivan 20 Ml) Confirm Administered Dose 200 mg .ROUTE .STK-MED ONE Stop: 04/07/18 10:56 Propofol (Diprivan 20 Ml) Confirm Administered Dose 200 mg .ROUTE .STK-MED ONE Stop: 04/21/18 12:05 Rocuronium [place] (Zemuron) Confirm Administered Dose 50 mg .ROUTE .STK-MED ONE Stop: 03/18/18 19:48 Rocuronium [place] (Zemuron) Confirm Administered Dose 50 mg .ROUTE .STK-MED ONE Stop: 04/07/18 10:56 Succinylcholine Chloride (Quelicin) Confirm Administered Dose 200 mg .ROUTE .STK -MED ONE Stop: 03/18/18 19:48 Vancomycin HCl (Vancomycin) 1 gm IV .PHARMACY TO DOSE [facility] Stop: 03/21/18 16:00 Vancomycin HCl (Vancomycin) 1 gm IV .PHARMACY TO DOSE [facility] Stop: 04/16/18 14:00 - Exam Quality Assessment: Supplemental Oxygen General: Alert, Oriented, Cooperative, No Acute Distress Neck: Supple Lungs: Normal Respiratory Effort, Crackles (few right lower 1/2 ) Cardiovascular: Regular Rate, Regular Rhythm GI/Abdominal Exam: Soft, No Distention, Abnormal Bowel Sounds (slightly hypoactive) Extremities: No Pedal Edema, Other (no warmth or swelling of right great toe) Psy/Mental Status: Alert, Normal Affect - Problem List Review Problem List Initiated/Reviewed/Updated: Yes - My Orders Last 24 Hours: My Active Orders 04/26/18 10:08 Furosemide [Lasix] 60 mg IVPUSH NOW ONE - Plan Plan:: ASSESSMENT AND PLAN WOUND DEHISCENCE WITH UNDERLYING ABSCESS - status post exploratory laparotomy . Wound healing well and wound VAC has been discontinued. Still has an ileus but otherwise seems to be doing fairly well. -Ciprofloxacin 400 mg IV every 12 hours -Zyvox IV -Transitioned to Latham catheter 04/21 -Surgical follow-up per surgery team OSTEOMYELITIS RIGHT FIRST TOE - Unable to obtain MRI. Arterial Doppler study showed evidence of significant peripheral arterial disease in the right leg. No pain or swelling at this time. -Outpatient follow-up with interventional radiology in [place] after he has healed from recent surgeries -Anticipate 4-6 weeks of antibiotics, may be able to transition to oral antibiotics early next week (cipro/clinda or cipro/doxy?) ANEMIA OF ACUTE ILLNESS - patient has required frequent blood draws and has been critically ill and hospitalized for some time. Hemoglobin has been stable since transfusion with no evidence for bleeding. -Transfuse if less than 8 SIGMOID COLON PERFORATION RESULTING IN ACUTE ABDOMEN AND SEPTIC SHOCK - postop course complicated by wound dehiscence as above. He is receiving nutritional support via TPN. Persistent difficulty with very prolonged ileus. -Continue TPN -Continue metoclopramide -Post operative care per surgical team -Pain control -Saline lock IV ACUTE HYPOXIC RESPIRATORY FAILURE - respiratory status stable. Still on oxygen. Some evidence for extra volume today. -Furosemide 60 mg 1 this morning, reassess daily -Coughing, deep breathing and suctioning as able -Reassess volume status daily COPD - [id number] smoking history but no evidence for exacerbation at this time. -Nebulized albuterol as needed -Vigorous pulmonary toilet during the postoperative period HISTORY OF LUNG AND PROSTATE CARCINOMA - lung cancer felt to be stable, had been receiving treatment for management of prostate carcinoma prior to admission MAINTENANCE ISSUES -DVT prophylaxis; SCUDs -GI prophylaxis; Protonix 40 mg daily -Sorto catheter; has been successfully removed -Nutrition; clear liquids DISPOSITION - anticipate discharge to half-way after the hospital stay. Poor nutrition, extremely prolonged ileus and osteomyelitis are preventing safe discharge at this time. Stephon Christy M.D.
[2018-04-26] MEDS ORDERED: Furosemide 20 MG/2 ML VIAL IVPUSH ONE (10:30)
[2018-04-26] MEDS: Bisacodyl 10 MG Supp RECTAL SCH ×2 (10:43→20:46)
[2018-04-26] MEDS: Nystatin Susp 100,000 Unit/ML 5 ML UD Cup PO SCH ×3 (10:43→21:50)
[2018-04-26] MEDS: Lactobacillus Rhamnosus GG (Probiotic) Cap PO SCH ×2 (10:43→20:46)
[2018-04-26] MEDS: Ciprofloxacin in D5W 400 MG in Premix Bag 1 BAG IV SCH ×4 (10:44→23:16)
[2018-04-26] MEDS: Linezolid 600 MG in Premix Bag 1 BAG IV SCH ×2 (12:30→12:32)
[2018-04-26] MEDS: Morphine 10 MG/0.5 ML Oral Syringe PO PRN (16:53)
[2018-04-27] MEDS: Linezolid 600 MG in Premix Bag 1 BAG IV SCH ×2 (00:41→13:17)
[2018-04-27] MEDS: Nystatin Susp 100,000 Unit/ML 5 ML UD Cup PO SCH ×4 (06:52→21:56)
[2018-04-27] MEDS: Albuterol/Ipratropium 3.0-0.5 MG/3 ML Neb Soln NEB SCH ×4 (07:13→20:38)
--- NOTE | 2018-04-27 07:13 | CRLCR ---
Final Report: INDICATION: Shortness of breath. COMPARISON: 08 April 2018. TECHNIQUE: Two views. FINDINGS: Patchy airspace opacities throughout the right lower lobe. Small right effusion. Chronic interstitial prominence diffusely. Pulmonary vascularity normal. Right subclavian central venous catheter tip lower superior vena cava. IMPRESSION: Right lower lobe pneumonia suggested. Follow-up imaging to resolution recommended. Dictated by Jim Colorado MD @ Apr 26 2018 8:51AM (Electronic Signature) MTDD
[2018-04-27] MEDS ORDERED: Central Total Parenteral Nutrition Bag SCH (07:45)
[2018-04-27] MEDS ORDERED: Acetaminophen 160 MG Tab,Disintegrating PO PRN (08:01)
[2018-04-27] MEDS: Furosemide 20 MG Tab PO SCH (08:16)
[2018-04-27] MEDS: Lactobacillus Rhamnosus GG (Probiotic) Cap PO SCH ×2 (08:16→20:43)
[2018-04-27] MEDS: Pantoprazole 40 MG Tab.CR PO SCH (08:17)
[2018-04-27] MEDS: Metoclopramide 10 MG/2 ML SDV IVPUSH SCH ×3 (08:17→20:42)
[2018-04-27] MEDS: 1: AA 5%/Calcium/D15W/Lytes 1,000 ML with MVI, Adult with Vitamin K 10 ML, Chromium/Copp IV SCH ×3 (08:36)
[2018-04-27] MEDS: Magnesium Sulfate/Water 2 GM in Premix Bag 1 BAG IV SCH ×3 (09:53→21:56)
[2018-04-27] MEDS: Bisacodyl 10 MG Supp RECTAL SCH ×2 (09:53→20:42)
--- NOTE | 2018-04-27 10:18 | PN ---
DATE OF SERVICE: 04/26/2018 SUBJECTIVE: Kodak has been running a low-grade temp of 99. He has been ambulating. Oral intake was 1060. He had nothing recorded out of his ostomy, during report staff stated 100 mL of loose stools. Urine output was 2800. Gastrostomy tube has been clamped. For breakfast, he had 10% recorded, nothing recorded for lunch, and 50% recorded for dinner. REVIEW OF SYSTEMS: Remainder of review of systems negative for any pertinent positives and negatives. OBJECTIVE: GENERAL: Kodak Silva is a 77-year-old male. Alert, orientated. Reports his tongue is sore. VITAL SIGNS: TPR is 99, 84, 20, blood pressure 129/64. HEENT: Tongue is beefy red. NECK: Supple. HEART: Regular rate and rhythm. LUNGS: Clear. ABDOMEN: There is moisture under the Tegaderm over the incision. G-tube intact, clamped. EXTREMITIES: Without peripheral edema. ASSESSMENT: 1. Placement of Latham catheter on 04/21/2018 by Fredi Linn MD. 2. Allergic reaction to vancomycin. 3. Osteomyelitis, right great toe. 4. Insertion of subclavian triple lumen, exploratory laparotomy, drainage of intraabdominal abscess and small bowel resection, small bowel stricturoplasty, placement of Vicryl mesh for closure of fascial dehiscence and evisceration of intraabdominal abscess and focal small bowel stricture. Surgeon, Fredi Linn MD. Date of surgery, 04/07/2018. 5. Percutaneous endoscopy and gastrostomy tube placement for malnutrition with inadequate oral intake. Date of surgery, 04/02/2018. Surgeon, Fredi Linn MD. 6. Exploratory laparotomy, peritoneal lavage, sigmoid resection, Cristina pouch, colostomy for acute abdomen and perforated viscus, and sepsis. Date of surgery, 03/18/2018. Surgeon, Fredi Linn MD. PLAN: 1. Continue same TPN and lipids. Check CBC, CMP, BNP, magnesium, and phos in a.m. Discontinue Tegaderm, dressing changes b.i.d., use 4x4 and ABD to cover incision, keep clean and dry. Check chest x-ray, PA and lateral for shortness of breath. Call with results of chest x-ray. 2. We will evaluate p.r.n. or in a.m. Rula Morley PA-C /[id number]
--- NOTE | 2018-04-27 10:56 | PCM.PN ---
- General Info Date of Service: 04/27/18 Subjective Update: Mr. Silva has slowly progressed and improved over the past several days. Oral intake continues to slowly improve as well as overall strength, he is now able to ambulate short distances with use of a walker and assistance of 1. TPN rate has been decreased, current plan is for transfer to inpatient rehabilitation this week. Functional Status: Reports: Tolerating Diet, Ambulating, Urinating - Review of Systems General: Reports: Weakness. Denies: Fever, Chills Pulmonary: Reports: No Symptoms Cardiovascular: Reports: No Symptoms Gastrointestinal: Reports: No Symptoms - Patient Data Vitals - Most Recent: Last Vital Signs Temp 98.2 F 04/27/18 07:00 Pulse 84 04/27/18 10:46 Resp 18 04/27/18 07:00 BP 132/84 04/27/18 07:00 Pulse Ox 93 L 04/27/18 07:00 Weight - Most Recent: 150 lb 3.2 oz I&O - Last 24 Hours: Intake & Output 04/26/18 04/27/18 04/27/18 22:59 06:59 14:59 Intake Total 1605 1822 240 Output Total 1500 400 750 Balance 105 1422 -510 Lab Results Last 24 Hours: Laboratory Results - last 24 hr 04/27/18 04/27/18 Range/Units 04:00 04:00 WBC 9.2 (4.5-11.0) K/uL RBC 3.28 L (4.30-5.90) M/uL Hgb 9.6 L (12.0-15.0) g/dL Hct 30.9 L (40.0-54.0) % MCV 94 (80-98) fL MCH 29 (27-31) pg MCHC 31 L (32-36) % Plt Count 265 (150-400) K/uL Neut % (Auto) 63 (36-66) % Lymph % (Auto) 16 L (24-44) % [place] % (Auto) 13 H (2-6) % Eos % (Auto) 7 H (2-4) % Baso % (Auto) 1 (0-1) % Sodium 140 (140-148) mmol/L Potassium 3.8 (3.6-5.2) mmol/L Chloride 107 (100-108) mmol/L Carbon Dioxide 27 (21-32) mmol/L Anion Gap 6.4 (5.0-14.0) mmol/L BUN 29 H (7-18) mg/dL Creatinine 0.9 (0.8-1.3) mg/dL Est Cr Clr Drug Dosing 66.14 mL/min Estimated GFR (MDRD) > 60 (>60) Glucose 117 H (74-106) mg/dL Calcium 7.6 L (8.5-10.1) mg/dL Phosphorus 3.5 (2.5-4.9) mg/dL Magnesium 1.5 L (1.8-2.4) mg/dL Total Bilirubin 0.4 (0.2-1.0) mg/dL AST 34 (15-37) U/L ALT 43 (12-78) U/L Alkaline Phosphatase 137 H (46-116) U/L NT-Pro-B Natriuret Pep 628 H (5-450) pg/mL Total Protein 5.2 L (6.4-8.2) g/dL Albumin 1.9 L (3.4-5.0) g/dL Globulin 3.3 (2.3-3.5) g/dL Albumin/Globulin Ratio 0.6 L (1.2-2.2) Med Orders - Current: Current Medications Acetaminophen (Tylenol JrArlen Meltaways) 640 mg PO Q4H PRN PRN Reason: Pain/Fever Albuterol (Proventil Neb Soln) 2.5 mg NEB Q4H PRN PRN Reason: Dyspnea Last Admin: 04/26/18 00:20 Dose: 2.5 mg Albuterol/Ipratropium (Duoneb 3.0-0.5 Mg/3 Ml) 3 ml NEB QIDRT [facility] Last Admin: 04/27/18 10:45 Dose: 3 ml Bisacodyl (Dulcolax) 10 mg RECTAL BID [facility] Last Admin: 04/27/18 09:53 Dose: 10 mg Calcium Carbonate/Glycine (Tums) 1,000 mg PO Q2H PRN PRN Reason: Indigestion Last Admin: 04/15/18 20:27 Dose: 1,000 mg Dimethicone/Zinc Oxide (Rash Relief-Zinc Oxide [place]) 0 gm TOP ASDIRECTED PRN PRN Reason: Rash Last Admin: 03/28/18 16:55 Dose: 1 spray Diphenhydramine HCl (Benadryl) 25 mg IVPUSH Q4H PRN PRN Reason: Itching Furosemide (Lasix) 20 mg PO DAILY [facility] Last Admin: 04/27/18 08:16 Dose: 20 mg Hydrocortisone (Hydrocortisone 1% Crm) 30 gm TOP ASDIRECTED PRN PRN Reason: itching Hydromorphone HCl (Dilaudid) 0.5 mg IVPUSH Q2H PRN PRN Reason: Pain Last Admin: 04/25/18 18:12 Dose: 0.5 mg Hydroxyzine HCl (Vistaril) 50 mg IM Q6H PRN PRN Reason: Pain Last Admin: 04/19/18 15:43 Dose: 50 mg Ciprofloxacin/Dextrose 400 mg/ (Premix) 200 mls @ 200 mls/hr IV Q12H [facility] Last Admin: 04/26/18 23:16 Dose: 200 mls/hr Linezolid 600 mg/ Premix 300 mls @ 300 mls/hr IV Q12H [facility] Last Admin: 04/27/18 00:41 Dose: 300 mls/hr Fat Emulsion Intravenous (Intralipid 20%) 100 mls @ 8.3 mls/hr IV Q48H [facility] Last Admin: 04/25/18 15:22 Dose: 8.3 mls/hr Magnesium Sulfate 2 gm/ Premix 50 mls @ 25 mls/hr IV Q6H [facility] Stop: 04/30/18 05:59 Last Admin: 04/27/18 09:53 Dose: 25 mls/hr Multivitamins/Minerals 10 ml/Chromium/Copper/Manganese/Seleni/Zn 1 ml/ Amino Ac/ Electrol/Dextrose/Calcium 1,011 mls @ 42 mls/hr IV .BY DURATION [facility] Last Admin: 04/27/18 08:36 Dose: 42 mls/hr Amino Ac/Electrol/Dextrose/Calcium (Clinimix E 5/15) 1,000 mls @ 42 mls/hr IV .BY DURATION [facility] Lactobacillus Rhamnosus (Culturelle) 1 cap PO BID [facility] Last Admin: 04/27/18 08:16 Dose: 1 cap Lorazepam (Ativan) 0.5 mg IVPUSH Q4H PRN PRN Reason: Nausea Last Admin: 04/25/18 22:55 Dose: 0.5 mg Metoclopramide HCl (Reglan) 10 mg IVPUSH TID [facility] Last Admin: 04/27/18 08:17 Dose: 10 mg Morphine Sulfate (Morphine 10 Mg/0.5 Ml Oral Syringe) 5 mg PO Q4HWA PRN PRN Reason: Pain Last Admin: 04/26/18 16:53 Dose: 5 mg Nystatin (Mycostatin) 2 ml PO QID [facility] Stop: 05/10/18 06:01 Last Admin: 04/27/18 09:53 Dose: 2 ml Ondansetron HCl (Zofran) 4 mg IVPUSH Q6H PRN PRN Reason: Nausea/Vomiting Pantoprazole Sodium (Protonix) 40 mg PO ACBREAKFAST [facility] Last Admin: 04/27/18 08:17 Dose: 40 mg Tramadol HCl (Ultram) 25 - 50 mg PO Q6H PRN PRN Reason: Pain Last Admin: 04/24/18 11:18 Dose: 50 mg Discontinued Medications Acetaminophen (Tylenol) 650 mg RECTAL Q4H PRN PRN Reason: Fever Acetaminophen (Tylenol) 650 mg PO Q4H PRN PRN Reason: Pain/Fever Last Admin: 04/05/18 20:14 Dose: 650 mg Acetaminophen (Tylenol) 1,000 mg GTUBE Q6H [facility] Last Admin: 04/17/18 14:02 Dose: 1,000 mg Acetaminophen (Tylenol) 1,000 mg GTUBE Q6H [facility] Last Admin: 04/21/18 02:39 Dose: 1,000 mg Albuterol/Ipratropium (Duoneb 3.0-0.5 Mg/3 Ml) 3 ml NEB Q4H PRN PRN Reason: Dyspnea Albuterol/Ipratropium (Duoneb 3.0-0.5 Mg/3 Ml) 3 ml NEB ONETIME ONE Stop: 04/07/18 10:31 Last Admin: 04/07/18 10:26 Dose: Not Given Bupivacaine HCl (Marcaine 0.5%) Confirm Administered Dose 50 ml .ROUTE .STK-MED ONE Stop: 04/07/18 12:06 Bupivacaine HCl (Marcaine 0.5%) Confirm Administered Dose 50 ml .ROUTE .STK-MED ONE Stop: 04/19/18 07:31 Bupivacaine HCl (Marcaine 0.5%) Confirm Administered Dose 50 ml .ROUTE .STK-MED ONE Stop: 04/21/18 07:22 Last Admin: 04/21/18 13:46 Dose: 3.5 ml Ropivacaine 34 ml/Dexamethasone 8 mg/Epinephrine HCl 0.4 mg/ Sodium Chloride 43.6 ml 0 ml NERVRT ASDIRECTED [facility] Last Admin: 04/07/18 16:01 Dose: 80 syringe Dexamethasone (Dexamethasone) Confirm Administered Dose 4 mg .ROUTE .[facility] ONE Stop: 03/18/18 19:48 Dexamethasone (Dexamethasone) Confirm Administered Dose 4 mg .ROUTE .K-MED ONE Stop: 04/07/18 10:56 Diphenhydramine HCl (Benadryl) 25 mg IVPUSH Q6H PRN PRN Reason: Itching Last Admin: 04/22/18 23:22 Dose: 25 mg Epinephrine HCl (Adrenalin) Confirm Administered Dose 1 mg .ROUTE .[facility] ONE Stop: 03/18/18 21:07 Erythromycin (Jh-Tab) 250 mg PO TID@0730,1630,2130 [facility] Last Admin: 04/17/18 10:03 Dose: 250 mg Erythromycin (Jh-Tab) 250 mg PO TID@0800,1400,2000 [facility] Stop: 04/18/18 08:01 Last Admin: 04/18/18 08:16 Dose: 250 mg Erythromycin Ethylsuccinate (Eryped 400) 125 mg PO Q6H [facility] Last Admin: 04/07/18 15:14 Dose: Not Given Erythromycin Ethylsuccinate (Eryped 200) 250 mg PO TID@0800,1400,2000 [facility] Last Admin: 04/23/18 07:35 Dose: 250 mg Fentanyl (Sublimaze) Confirm Administered Dose 250 mcg .ROUTE .STK-MED ONE Stop: 03/18/18 19:48 Fentanyl (Sublimaze) Confirm Administered Dose 250 mcg .ROUTE .STK-MED ONE Stop: 04/02/18 12:59 Fentanyl (Sublimaze) Confirm Administered Dose 250 mcg .ROUTE .K-MED ONE Stop: 04/07/18 10:56 Fentanyl (Sublimaze) Confirm Administered Dose 100 mcg .ROUTE .K-MED ONE Stop: 04/21/18 12:05 Furosemide (Lasix) 20 mg IVPUSH ONETIME ONE Stop: 03/23/18 09:46 Last Admin: 03/23/18 10:18 Dose: 20 mg Furosemide (Lasix) 20 mg IVPUSH NOW ONE Stop: 03/25/18 10:01 Last Admin: 03/25/18 10:17 Dose: 20 mg Furosemide (Lasix) 20 mg IVPUSH ONETIME ONE Stop: 03/26/18 09:16 Last Admin: 03/26/18 09:10 Dose: 20 mg Furosemide (Lasix) 20 mg IVPUSH ONETIME ONE Stop: 03/26/18 16:01 Last Admin: 03/26/18 18:28 Dose: Not Given Furosemide (Lasix) 20 mg IVPUSH NOW ONE Stop: 03/27/18 10:01 Last Admin: 03/27/18 10:26 Dose: 20 mg Furosemide (Lasix) 20 mg IVPUSH ONETIME ONE Stop: 03/30/18 13:11 Last Admin: 03/30/18 13:36 Dose: 20 mg Furosemide (Lasix) 20 mg IVPUSH NOW ONE Stop: 03/31/18 11:55 Last Admin: 03/31/18 13:04 Dose: 20 mg Furosemide (Lasix) 20 mg IVPUSH NOW ONE Stop: 04/01/18 12:05 Last Admin: 04/01/18 12:43 Dose: 20 mg Furosemide (Lasix) 20 mg IVPUSH NOW ONE Stop: 04/02/18 15:46 Last Admin: 04/02/18 15:53 Dose: 20 mg Furosemide (Lasix) 40 mg IVPUSH NOW ONE Stop: 04/03/18 09:01 Last Admin: 04/03/18 09:45 Dose: 40 mg Furosemide (Lasix) 40 mg IVPUSH NOW ONE Stop: 04/04/18 15:31 Last Admin: 04/04/18 15:55 Dose: 40 mg Furosemide (Lasix) 40 mg IVPUSH NOW ONE Stop: 04/05/18 09:01 Last Admin: 04/05/18 10:15 Dose: 40 mg Furosemide (Lasix) 40 mg IVPUSH ONETIME ONE Stop: 04/08/18 12:01 Last Admin: 04/08/18 11:01 Dose: 40 mg Furosemide (Lasix) 40 mg IVPUSH ONETIME STA Stop: 04/09/18 06:48 Last Admin: 04/09/18 10:16 Dose: Not Given Furosemide (Lasix) 20 mg IVPUSH ONETIME ONE Stop: 04/09/18 12:01 Last Admin: 04/09/18 13:43 Dose: Not Given Furosemide (Lasix) 40 mg IVPUSH ONETIME STA Stop: 04/09/18 10:08 Last Admin: 04/09/18 10:09 Dose: 40 mg Furosemide (Lasix) Confirm Administered Dose 40 mg .ROUTE .[facility] ONE Stop: 04/09/18 10:08 Last Admin: 04/09/18 10:16 Dose: 40 mg Furosemide (Lasix) 40 mg IVPUSH ONETIME ONE Stop: 04/09/18 16:01 Last Admin: 04/09/18 15:54 Dose: 40 mg Furosemide (Lasix) 40 mg IVPUSH ONETIME ONE Stop: 04/10/18 12:01 Last Admin: 04/10/18 14:03 Dose: 40 mg Furosemide (Lasix) 20 mg IVPUSH ONETIME ONE Stop: 04/10/18 20:01 Last Admin: 04/10/18 21:10 Dose: 20 mg Furosemide (Lasix) 40 mg IVPUSH NOW ONE Stop: 04/11/18 11:31 Last Admin: 04/11/18 12:58 Dose: 40 mg Furosemide (Lasix) 40 mg IVPUSH NOW ONE Stop: 04/12/18 11:21 Last Admin: 04/12/18 13:28 Dose: 40 mg Furosemide (Lasix) Confirm Administered Dose 40 mg .ROUTE .STK-MED ONE Stop: 04/12/18 13:27 Last Admin: 04/12/18 13:52 Dose: Not Given Furosemide (Lasix) 40 mg IVPUSH NOW ONE Stop: 04/13/18 08:31 Last Admin: 04/13/18 08:42 Dose: 40 mg Furosemide (Lasix) 40 mg IVPUSH NOW ONE Stop: 04/14/18 10:01 Last Admin: 04/14/18 10:09 Dose: 40 mg Furosemide (Lasix) 20 mg IV ONETIME ONE Stop: 04/17/18 12:31 Last Admin: 04/17/18 12:22 Dose: 20 mg Furosemide (Lasix) 20 mg IVPUSH ONETIME ONE Stop: 04/20/18 12:55 Last Admin: 04/20/18 13:57 Dose: 20 mg Furosemide (Lasix) 20 mg IVPUSH ONETIME ONE Stop: 04/21/18 10:01 Last Admin: 04/21/18 09:37 Dose: 20 mg Furosemide (Lasix) 40 mg IVPUSH ONETIME ONE Stop: 04/21/18 10:01 Last Admin: 04/21/18 09:52 Dose: 40 mg Furosemide (Lasix) 20 mg IVPUSH ONETIME ONE Stop: 04/22/18 11:01 Furosemide (Lasix) 40 mg IVPUSH ONETIME ONE Stop: 04/23/18 08:01 Last Admin: 04/23/18 07:38 Dose: 40 mg Furosemide (Lasix) 40 mg IVPUSH ONETIME ONE Stop: 04/22/18 11:01 Last Admin: 04/22/18 10:32 Dose: 40 mg Furosemide (Lasix) 60 mg IVPUSH NOW ONE Stop: 04/26/18 10:31 Last Admin: 04/26/18 10:52 Dose: 60 mg Glycopyrrolate (Robinul) Confirm Administered Dose 1 mg .ROUTE .STK-MED ONE Stop: 03/18/18 19:48 Glycopyrrolate (Robinul) Confirm Administered Dose 1 mg .ROUTE .STK-MED ONE Stop: 04/07/18 10:56 Heparin Sodium (Porcine) (Heparin Sodium) Confirm Administered Dose 5,000 units .ROUTE .STK-MED ONE Stop: 03/18/18 19:51 Heparin Sodium (Porcine) (Heparin Lock Flush 100 Units/Ml) 500 units FLUSH ASDIRECTED PRN PRN Reason: IV Use Last Admin: 04/22/18 05:16 Dose: 500 units Heparin Sodium (Porcine) (Heparin Lock Flush 100 Units/Ml) Confirm Administered Dose 500 units .ROUTE .STK-MED ONE Stop: 03/22/18 12:17 Last Admin: 03/22/18 12:30 Dose: Not Given Heparin Sodium (Porcine) (Heparin Sodium) Confirm Administered Dose 5,000 units .ROUTE .STK-MED ONE Stop: 03/24/18 19:52 Last Admin: 03/24/18 20:33 Dose: 5,000 units Heparin Sodium (Porcine) (Heparin Lock Flush 100 Units/Ml) Confirm Administered Dose 1,000 units .ROUTE .STK-MED ONE Stop: 04/07/18 12:06 Last Admin: 04/07/18 14:30 Dose: 500 units Heparin Sodium (Porcine) (Heparin Lock Flush 100 Units/Ml) Confirm Administered Dose 1,500 units .ROUTE .STK-MED ONE Stop: 04/19/18 07:31 Heparin Sodium (Porcine) (Heparin Lock Flush 100 Units/Ml) Confirm Administered Dose 1,000 units .ROUTE .STK-MED ONE Stop: 04/21/18 07:22 Last Admin: 04/21/18 13:46 Dose: 1,000 units Heparin Sodium (Porcine) (Heparin Lock Flush 100 Units/Ml) Confirm Administered Dose 500 units .ROUTE .STK-MED ONE Stop: 04/21/18 07:23 Last Admin: 04/21/18 13:46 Dose: 500 units Heparin Sodium (Porcine) (Heparin Lock Flush 100 Units/Ml) Confirm Administered Dose 500 units .ROUTE .STK-MED ONE Stop: 04/26/18 08:00 Last Admin: 04/26/18 08:10 Dose: 500 units Hydrocortisone Sodium Succinate (Solu-Cortef) 100 mg IVPUSH Q12H [facility] Last Admin: 03/28/18 20:15 Dose: 100 mg Hydrocortisone Sodium Succinate (Solu-Cortef) 100 mg IVPUSH DAILY [facility] Last Admin: 03/30/18 13:39 Dose: Not Given Hydromorphone HCl (Dilaudid) 0.5 mg IVPUSH ONETIME ONE Stop: 03/18/18 17:43 Last Admin: 03/18/18 17:47 Dose: 0.5 mg Hydromorphone HCl (Dilaudid) 1 mg IVPUSH ONETIME ONE Stop: 03/18/18 18:18 Last Admin: 03/18/18 18:27 Dose: 1 mg Hydromorphone HCl (Dilaudid) 0.5 mg IVPUSH ONETIME ONE Stop: 04/16/18 09:58 Last Admin: 04/16/18 10:31 Dose: 0.5 mg Hydroxyzine HCl (Vistaril) 100 mg IM Q6H PRN PRN Reason: Pain Last Admin: 04/11/18 08:49 Dose: 100 mg Sodium Chloride (Normal Saline) 1,000 mls @ 1,000 mls/hr IV ASDIRECTED [facility] Last Admin: 03/18/18 17:47 Dose: 1,000 mls/hr Sodium Chloride (Normal Saline) 1,000 mls @ 999 mls/hr IV ASDIRECTED [facility] Last Admin: 03/18/18 19:31 Dose: 999 mls/hr Meropenem 500 mg/ Sodium (Chloride) 50 mls @ 100 mls/hr IV ONETIME ONE Stop: 03/18/18 19:09 Last Admin: 03/18/18 19:01 Dose: 100 mls/hr Sodium Chloride (Normal Saline) Confirm Administered Dose 50 mls @ as directed .ROUTE .[facility] ONE Stop: 03/18/18 19:40 Last Admin: 03/18/18 20:19 Dose: Not Given Aztreonam 2 gm/ Sodium (Chloride) 50 mls @ 100 mls/hr IV ONETIME ONE Stop: 03/18/18 20:01 Last Admin: 03/18/18 20:44 Dose: 100 mls/hr Meropenem 500 mg/ Sodium (Chloride) 50 mls @ 100 mls/hr IV ONETIME ONE Stop: 03/18/18 20:00 Last Admin: 03/18/18 19:40 Dose: 100 mls/hr Sodium Chloride (Normal Saline) Confirm Administered Dose 250 mls @ as directed .ROUTE .[facility] ONE Stop: 03/18/18 19:59 Lactated Ringer's (Ringers, Lactated) Confirm Administered Dose 1,000 mls @ as directed .ROUTE .[facility] ONE Stop: 03/18/18 19:59 Sodium Chloride (Normal Saline) Confirm Administered Dose 500 mls @ as directed .ROUTE .[facility] ONE Stop: 03/18/18 19:59 Norepinephrine Bitartrate 8 mg (/ Dextrose/Water) 258 mls @ 3.87 mls/hr IV TITRATE [facility]; Protocol Last Admin: 03/19/18 11:45 Dose: 12 mcg/min, 23.22 mls/hr Lactated Ringer's (Ringers, Lactated) Confirm Administered Dose 1,000 mls @ as directed .ROUTE .[facility] ONE Stop: 03/18/18 21:42 Propofol (Diprivan 100 Ml) 100 mls @ 2.082 mls/hr IV TITRATE [facility]; Protocol Last Titration: 03/27/18 06:35 Dose: 10 mcg/kg/min, 4.164 mls/hr Aztreonam 1 gm/ Sodium (Chloride) 50 mls @ 100 mls/hr IV Q8H [facility] Last Admin: 03/19/18 05:29 Dose: 100 mls/hr Potassium Chloride/Dextrose/Sod Cl (D5 1/2 Ns W/ 20 Meq/L Kcl) 1,000 mls @ 150 mls/hr IV ASDIRECTED [facility] Last Admin: 03/18/18 23:11 Dose: 150 mls/hr Meropenem 1 gm/ Sodium (Chloride) 50 mls @ 100 mls/hr IV Q12H [facility] Stop: 03/29/18 22:00 Last Admin: 03/29/18 20:10 Dose: 100 mls/hr Lactated Ringer's (Ringers, Lactated) 1,000 mls @ 500 mls/hr IV ASDIRECTED [facility] Last Admin: 03/19/18 01:23 Dose: 500 mls/hr Vasopressin 100 units/ (Dextrose/Water) 255 mls @ 1.53 mls/hr IV TITRATE [facility]; Protocol Stop: 03/21/18 13:00 Last Titration: 03/21/18 11:03 Dose: 0.02 units/min, 3.06 mls/hr Lactated Ringer's (Ringers, Lactated) 1,000 mls @ 500 mls/hr IV BOLUS [facility] Stop: 03/19/18 05:29 Last Admin: 03/19/18 04:02 Dose: 500 mls/hr Aztreonam/Dextrose 1 gm/ (Premix) 50 mls @ 100 mls/hr IV Q8H [facility] Last Admin: 03/28/18 05:26 Dose: 100 mls/hr Lactated Ringer's (Ringers, Lactated) 1,000 mls @ 500 mls/hr IV .BOLUS ONE Stop: 03/19/18 14:59 Last Admin: 03/19/18 14:27 Dose: 500 mls/hr Lactated Ringer's (Ringers, Lactated) 1,000 mls @ 150 mls/hr IV ASDIRECTED [facility] Last Admin: 03/21/18 11:53 Dose: 150 mls/hr Norepinephrine Bitartrate 8 mg (/ Dextrose/Water) 250 mls @ 3.75 mls/hr IV TITRATE [facility]; Protocol Last Titration: 03/27/18 09:04 Dose: 4 mcg/min, 7.5 mls/hr Magnesium Sulfate 2 gm/ Premix 50 mls @ 25 mls/hr IV Q6H [facility] Stop: 03/20/18 17:59 Last Admin: 03/20/18 16:30 Dose: 25 mls/hr Vancomycin HCl 1.25 gm/ Sodium (Chloride) 250 mls @ 170 mls/hr IV Q24H [facility] Last Admin: 03/22/18 10:06 Dose: 170 mls/hr Vasopressin 40 units/ Dextrose (/Water) 100 mls @ 3 mls/hr IV TITRATE [facility]; Protocol Last Titration: 03/23/18 01:00 Dose: 0 units/min, 0 mls/hr Potassium Chloride 20 meq/ (Premix) 100 mls @ 50 mls/hr IV Q2H [facility] Stop: 03/21/18 22:59 Last Admin: 03/21/18 22:20 Dose: 50 mls/hr Potassium Chloride 20 meq/ (Premix) 100 mls @ 50 mls/hr IV Q2H [facility] Stop: 03/22/18 12:59 Last Admin: 03/22/18 11:30 Dose: 50 mls/hr Potassium Chloride 20 meq/ (Premix) 100 mls @ 50 mls/hr IV Q2H [facility] Stop: 03/22/18 17:29 Last Admin: 03/22/18 16:13 Dose: 50 mls/hr Potassium Chloride (Kcl 20 Meq In Water 100 Ml) 100 mls @ 50 mls/hr IV Q2H [facility] Stop: 03/23/18 01:59 Last Admin: 03/23/18 00:53 Dose: 50 mls/hr Potassium Chloride 40 meq/ (Premix) 100 mls @ 25 mls/hr IV ONETIME ONE Stop: 03/23/18 14:29 Last Admin: 03/23/18 10:31 Dose: 25 mls/hr Vancomycin HCl 1.4 gm/ Sodium (Chloride) 250 mls @ 170 mls/hr IV Q24H [facility] Last Admin: 03/24/18 11:13 Dose: 170 mls/hr Multivitamins/Minerals 10 ml/Chromium/Copper/Manganese/Seleni/Zn 1 ml/ Amino Ac/ Electrol/Dextrose/Calcium 1,011 mls @ 75 mls/hr IV .BY DURATION [facility] Last Admin: 03/25/18 22:34 Dose: 75 mls/hr Amino Ac/Electrol/Dextrose/Calcium (Clinimix E 5/15) 1,000 mls @ 75 mls/hr IV .BY DURATION [facility] Last Admin: 03/25/18 08:11 Dose: 75 mls/hr Vasopressin 100 units/ (Dextrose/Water) 255 mls @ 1.53 mls/hr IV TITRATE [facility]; Protocol Last Titration: 03/25/18 11:51 Dose: 0 units/min, 0 mls/hr Potassium Chloride 20 meq/ (Premix) 100 mls @ 50 mls/hr IV Q2H [facility] Stop: 03/24/18 13:59 Last Admin: 03/24/18 12:13 Dose: 50 mls/hr Multivitamins/Minerals 10 ml/Chromium/Copper/Manganese/Seleni/Zn 1 ml/ Amino Ac/ Electrol/Dextrose/Calcium 1,011 mls @ 75 mls/hr IV .BY DURATION [facility] Last Admin: 03/29/18 06:48 Dose: 75 mls/hr Amino Ac/Electrol/Dextrose/Calcium (Clinimix E 5/15) 1,000 mls @ 75 mls/hr IV .BY DURATION [facility] Last Admin: 03/29/18 20:12 Dose: 75 mls/hr Heparin Sodium (Porcine) 5,000 (units/ Sodium Chloride) 501 mls @ 5 mls/hr IV ASDIRECTED [facility] Last Admin: 03/27/18 12:50 Dose: 5 mls/hr Sodium Chloride (Normal Saline) 1,000 mls @ 50 mls/hr IV ASDIRECTED [facility] Last Admin: 03/30/18 13:36 Dose: 50 mls/hr Dextrose/Sodium Chloride (Dextrose 5%-1/2 Ns) 1,000 mls @ 75 mls/hr IV ASDIRECTED [facility] Last Admin: 03/31/18 23:53 Dose: 75 mls/hr Albumin Human (Albumin 25%) 25 gm in 100 mls @ 25 mls/hr IV Q24H [facility] Stop: 04/02/18 12:59 Last Admin: 04/01/18 08:13 Dose: 25 mls/hr Potassium Phosphate 20 mmole/ (Sodium Chloride) 256.6667 mls @ 85 mls/hr IV Q3H [facility] Stop: 04/01/18 18:59 Last Admin: 04/01/18 18:37 Dose: 85 mls/hr Dextrose/Sodium Chloride (Dextrose 5%-1/2 Ns) 1,000 mls @ 80 mls/hr IV ASDIRECTED [facility] Last Admin: 04/03/18 06:40 Dose: 80 mls/hr Cefazolin Sodium/Dextrose 2 gm (/ Premix) 50 mls @ 100 mls/hr IV ONCALL ONE Stop: 04/02/18 11:59 Last Admin: 04/02/18 13:59 Dose: 100 mls/hr Potassium Acetate 20 meq/ (Sodium Chloride) 110 mls @ 55 mls/hr IV Q2H [facility] Stop: 04/02/18 11:59 Last Admin: 04/02/18 10:10 Dose: 55 mls/hr Magnesium Sulfate 2 gm/ Premix 50 mls @ 25 mls/hr IV Q6H [facility] Stop: 04/05/18 07:59 Last Admin: 04/03/18 12:11 Dose: 25 mls/hr Albumin Human (Albumin 25%) 25 gm in 100 mls @ 25 mls/hr IV ONETIME ONE Stop: 04/02/18 17:59 Last Admin: 04/02/18 15:30 Dose: 25 mls/hr Potassium Chloride 20 meq/Lidocaine HCl 2 ml/ Sodium Chloride 112 mls @ 56 mls/ hr IV Q2H [facility] Stop: 04/03/18 17:59 Last Admin: 04/03/18 17:04 Dose: 56 mls/hr Magnesium Sulfate 2 gm/ Premix 50 mls @ 25 mls/hr IV Q6H [facility] Stop: 04/08/18 03:59 Last Admin: 04/07/18 15:14 Dose: Not Given Potassium Phosphate 15 mmole/ (Sodium Chloride) 255 mls @ 128 mls/hr IV Q2H [facility] Stop: 04/06/18 13:59 Last Admin: 04/06/18 12:49 Dose: 128 mls/hr Dextrose/Lactated Ringer's (Dextrose 5%-Lactated Ringers) 1,000 mls @ 100 mls/ hr IV ASDIRECTED [facility] Last Admin: 04/07/18 08:44 Dose: 100 mls/hr Meropenem 500 mg/ Sodium (Chloride) 50 mls @ 100 mls/hr IV ONCALL ONE Stop: 04/07/18 11:59 Last Admin: 04/07/18 15:13 Dose: Not Given Linezolid (Zyvox) Confirm Administered Dose 300 mls @ as directed .ROUTE .STK- MED ONE Stop: 04/07/18 15:26 Lactated Ringer's (Ringers, Lactated) Confirm Administered Dose 1,000 mls @ as directed .ROUTE .STK-MED ONE Stop: 04/07/18 15:35 Linezolid 600 mg/ Premix 300 mls @ 300 mls/hr IV ONETIME ONE Stop: 04/07/18 17:29 Last Admin: 04/07/18 16:25 Dose: 300 mls/hr Dextrose/Lactated Ringer's (Dextrose 5%-Lactated Ringers) 1,000 mls @ 175 mls/ hr IV ASDIRECTED [facility] Last Admin: 04/08/18 06:21 Dose: 175 mls/hr Linezolid 600 mg/ Premix 300 mls @ 300 mls/hr IV Q12H [facility] Last Admin: 04/10/18 03:46 Dose: 300 mls/hr Meropenem 500 mg/ Sodium (Chloride) 50 mls @ 100 mls/hr IV Q8H [facility] Last Admin: 04/11/18 06:23 Dose: 100 mls/hr Magnesium Sulfate 2 gm/ Premix 50 mls @ 25 mls/hr IV Q6H [facility] Stop: 04/09/18 13:59 Last Admin: 04/09/18 11:40 Dose: 25 mls/hr Dextrose/Lactated Ringer's (Dextrose 5%-Lactated Ringers) 1,000 mls @ 100 drops /hr IV ASDIRECTED [facility] Last Admin: 04/09/18 11:39 Dose: 100 drops/hr Multivitamins/Minerals 10 ml/Chromium/Copper/Manganese/Seleni/Zn 1 ml/ Amino Ac/ Electrol/Dextrose/Calcium 1,011 mls @ 82 mls/hr IV .BY DURATION [facility] Stop: 04/27/18 08:50 Last Admin: 04/26/18 20:49 Dose: 82 mls/hr Amino Ac/Electrol/Dextrose/Calcium (Clinimix E 5/15) 1,000 mls @ 82 mls/hr IV .BY DURATION [facility] Stop: 04/27/18 08:50 Last Admin: 04/26/18 08:40 Dose: 82 mls/hr Albumin Human (Albumin 25%) 25 gm in 100 mls @ 25 mls/hr IV Q24H [facility] Stop: 04/12/18 13:59 Last Admin: 04/12/18 09:28 Dose: 25 mls/hr Albumin Human (Albumin 25%) 25 gm in 100 mls @ 25 mls/hr IV Q24H [facility] Stop: 04/12/18 17:59 Last Admin: 04/12/18 14:19 Dose: 25 mls/hr Dextrose/Lactated Ringer's (Dextrose 5%-Lactated Ringers) 1,000 mls @ 25 mls/ hr IV ASDIRECTED [facility] Sodium Chloride (Normal Saline) 1,000 mls @ 0 mls/hr IV ASDIRECTED [facility] Potassium Phosphate 22.5 mmole (/ Sodium Chloride) 257.5 mls @ 86 mls/hr IV Q3H [facility] Stop: 04/10/18 15:59 Last Admin: 04/10/18 14:47 Dose: 86 mls/hr Calcium Gluconate 1 gm/ Sodium (Chloride) 110 mls @ 100 mls/hr IV Q6H [facility] Stop: 04/10/18 18:05 Last Admin: 04/10/18 16:21 Dose: 100 mls/hr Doxycycline Hyclate 100 mg/ (Sodium Chloride) 100 mls @ 100 mls/hr IV Q12H [facility] Last Admin: 04/16/18 12:08 Dose: 100 mls/hr Acetaminophen 1,000 mg/ Premix 100 mls @ 400 mls/hr IV Q6H [facility] Stop: 04/12/18 06:44 Last Admin: 04/12/18 05:47 Dose: 400 mls/hr Potassium Chloride 20 meq/ (Premix) 100 mls @ 50 mls/hr IV Q2H [facility] Stop: 04/12/18 14:59 Last Admin: 04/12/18 13:29 Dose: 50 mls/hr Potassium Chloride 40 meq/ (Premix) 100 mls @ 25 mls/hr IV ONETIME ONE Stop: 04/12/18 12:19 Potassium Chloride 40 meq/ (Premix) 100 mls @ 25 mls/hr IV ONETIME ONE Stop: 04/12/18 20:59 Last Admin: 04/12/18 17:45 Dose: 25 mls/hr Potassium Phosphate 25 mmole/ (Sodium Chloride) 108.3333 mls @ 27 mls/hr IV Q4H [facility] Stop: 04/13/18 21:29 Last Admin: 04/13/18 18:13 Dose: 27 mls/hr Magnesium Sulfate 2 gm/ Premix 50 mls @ 25 mls/hr IV Q6H [facility] Stop: 04/17/18 04:59 Last Admin: 04/15/18 08:34 Dose: 25 mls/hr Vancomycin HCl 1.35 gm/ Sodium (Chloride) 250 mls @ 167 mls/hr IV ONETIME ONE Stop: 04/16/18 15:29 Last Admin: 04/16/18 15:04 Dose: 167 mls/hr Vancomycin HCl 1 gm/ Sodium (Chloride) 250 mls @ 167 mls/hr IV Q12H [facility] Last Admin: 04/17/18 02:21 Dose: 167 mls/hr Magnesium Sulfate 2 gm/ Premix 50 mls @ 25 mls/hr IV Q6H [facility] Stop: 04/21/18 02:59 Last Admin: 04/18/18 08:02 Dose: Not Given Magnesium Sulfate 2 gm/ Premix 50 mls @ 25 mls/hr IV Q6H [facility] Stop: 04/18/18 17:59 Last Admin: 04/18/18 16:28 Dose: 25 mls/hr Potassium Chloride 20 meq/ (Premix) 100 mls @ 50 mls/hr IV Q2H [facility] Stop: 04/19/18 08:59 Last Admin: 04/19/18 07:37 Dose: 50 mls/hr Sodium Chloride (Normal Saline) 71 mls @ 3.1 mls/sec IV ASDIRECTED STA Stop: 04/19/18 08:28 Last Admin: 04/19/18 09:15 Dose: 3.1 mls/sec Magnesium Sulfate 2 gm/ Premix 50 mls @ 25 mls/hr IV Q6H [facility] Stop: 04/24/18 04:59 Last Admin: 04/24/18 03:19 Dose: 25 mls/hr Sodium Chloride (Normal Saline) Confirm Administered Dose 500 mls @ as directed .ROUTE .STK-MED ONE Stop: 04/21/18 13:40 Insulin Human Lispro (Humalog) 0 unit SUBCUT Q6H [facility]; Protocol Last Admin: 03/30/18 16:32 Dose: Not Given Insulin Human Lispro (Humalog) 0 unit SUBCUT Q6H [facility]; Protocol Last Admin: 03/31/18 03:52 Dose: Not Given Insulin Human Lispro (Humalog) 0 unit SUBCUT QIDACANDBED [facility]; Protocol Stop: 04/12/18 11:01 Last Admin: 03/31/18 13:17 Dose: Not Given Iopamidol (Isovue-300 (61%)) 100 ml IV . DIRECTED STA Stop: 04/19/18 08:28 Last Admin: 04/19/18 09:15 Dose: 100 ml Lidocaine/Epinephrine (Xylocaine 1% With Epinephrine 1:100,000) Confirm Administered Dose 50 ml .ROUTE .STK-MED ONE Stop: 04/07/18 12:06 Lidocaine/Epinephrine (Xylocaine 1% With Epinephrine 1:100,000) Confirm Administered Dose 50 ml .ROUTE .STK-MED ONE Stop: 04/19/18 07:31 Lidocaine/Epinephrine (Xylocaine 1% With Epinephrine 1:100,000) Confirm Administered Dose 50 ml .ROUTE .STK-MED ONE Stop: 04/21/18 07:22 Last Admin: 04/21/18 13:46 Dose: 3.5 ml Linezolid (Zyvox) 600 mg IRR .STK-MED ONE Stop: 04/07/18 16:06 Last Admin: 04/07/18 16:05 Dose: 600 mg Loperamide HCl (Imodium) 2 mg PO ASDIRECTED PRN PRN Reason: DIARRHEA Melatonin (Melatonin) 9 mg PO BEDTIME [facility] Last Admin: 04/06/18 21:40 Dose: 9 mg Meropenem (Merrem) Confirm Administered Dose 500 mg .ROUTE .STK-MED ONE Stop: 03/18/18 19:40 Last Admin: 03/18/18 20:19 Dose: Not Given Meropenem (Merrem) Confirm Administered Dose 500 mg .ROUTE .STK-MED ONE Stop: 04/07/18 14:38 Last Admin: 04/07/18 16:00 Dose: 500 mg Meropenem (Merrem) Confirm Administered Dose 500 mg .ROUTE .STK-MED ONE Stop: 04/07/18 15:08 Last Admin: 04/07/18 16:05 Dose: 500 mg Methylprednisolone Sodium Succinate (Solu-Medrol) 125 mg IVPUSH ONETIME ONE Stop: 04/17/18 05:49 Last Admin: 04/17/18 06:02 Dose: 125 mg Metoclopramide HCl (Reglan) 5 mg IVPUSH TID [facility] Last Admin: 04/24/18 08:19 Dose: 5 mg Midazolam HCl (Versed 1 Mg/Ml) Confirm Administered Dose 2 mg .ROUTE .STK-MED ONE Stop: 04/02/18 12:59 Morphine Sulfate (Morphine) 4 mg IVPUSH Q2H PRN PRN Reason: Pain Last Admin: 03/29/18 07:34 Dose: 4 mg Morphine Sulfate (Morphine Manager Environmental 150 Mg In 30 Ml) 0 mg IV ASDIRECTED PRN; Protocol PRN Reason: Pain Last Admin: 04/07/18 10:00 Dose: 150 mg Morphine Sulfate (Morphine Manager Environmental 150 Mg In 30 Ml) 0 mg IV ASDIRECTED PRN; Protocol PRN Reason: Pain Naloxone HCl (Narcan) 0.1 mg IV ASDIRECTED PRN PRN Reason: decreased respiratory rate Neostigmine Methylsulfate (Neostigmine) Confirm Administered Dose 5 mg .ROUTE .STK-MED ONE Stop: 03/18/18 19:48 Neostigmine Methylsulfate (Neostigmine) Confirm Administered Dose 5 mg .ROUTE .STK-MED ONE Stop: 04/07/18 10:56 Non-Formulary Medication (Total Parenteral Nutrition, Central) 1,000 ml .XX .Continue Order [facility]; Protocol Stop: 03/24/18 11:31 Non-Formulary Medication (Total Parenteral Nutrition, Central) 1,000 ml .XX .Continue Order [facility]; Protocol Non-Formulary Medication (Total Parenteral Nutrition, Central) 1,000 ml .XX .Continue Order [facility]; Protocol Non-Formulary Medication (Total Parenteral Nutrition, Central) 1,000 ml .XX .Continue Order [facility]; Protocol Stop: 03/28/18 12:00 Non-Formulary Medication (Total Parenteral Nutrition, Central) 1,000 ml .XX .Continue Order [facility] Stop: 04/08/18 08:01 Non-Formulary Medication (Total Parenteral Nutrition, Central) 1,000 ml .XX .Continue Order [facility] Stop: 04/09/18 10:00 Non-Formulary Medication (Total Parenteral Nutrition, Central) 1,000 ml .XX .Continue Order [facility] Stop: 04/10/18 10:00 Non-Formulary Medication (Total Parenteral Nutrition, Central) 1,000 ml .XX .Continue Order [facility] Stop: 04/11/18 10:00 Non-Formulary Medication (Total Parenteral Nutrition, Central) 1,000 ml .XX .Continue Order [facility] Stop: 04/12/18 12:00 Non-Formulary Medication (Total Parenteral Nutrition, Central) 1,000 ml .XX .Continue Order [facility] Stop: 04/13/18 12:00 Non-Formulary Medication (Total Parenteral Nutrition, Central) 1,000 ml .XX .Continue Order [facility] Stop: 04/15/18 07:46 Non-Formulary Medication (Total Parenteral Nutrition, Central) 1,000 ml .XX .Continue Order [facility] Stop: 04/16/18 10:00 Non-Formulary Medication (Total Parenteral Nutrition, Central) 1,000 ml .XX .Continue Order [facility] Stop: 04/17/18 12:00 Non-Formulary Medication (Total Parenteral Nutrition, Central) 1,000 ml .XX .Continue Order [facility] Stop: 04/18/18 07:01 Non-Formulary Medication (Total Parenteral Nutrition, Central) 1,000 ml .XX .Continue Order [facility] Stop: 04/19/18 08:01 Non-Formulary Medication (Total Parenteral Nutrition, Central) 1,000 ml .XX .Continue Order [facility] Stop: 04/20/18 12:00 Non-Formulary Medication (Total Parenteral Nutrition, Central) 1,000 ml .XX .Continue Order [facility] Stop: 04/21/18 10:00 Non-Formulary Medication (Total Parenteral Nutrition, Central) 1,000 ml .XX .Continue Order [facility] Stop: 04/22/18 12:00 Non-Formulary Medication (Total Parenteral Nutrition, Central) 1,000 ml .XX .Continue Order [facility] Stop: 04/23/18 12:00 Non-Formulary Medication (Total Parenteral Nutrition, Central) 1,000 ml .XX .Continue Order [facility] Stop: 04/24/18 07:31 Non-Formulary Medication (Total Parenteral Nutrition, Central) 1,000 ml .XX .Continue Order [facility] Stop: 04/25/18 09:00 Non-Formulary Medication (Total Parenteral Nutrition, Central) 1,000 ml .XX .Continue Order [facility] Stop: 04/27/18 10:00 Nystatin (Mycostatin) 5 ml PO QID [facility] Last Admin: 04/04/18 15:25 Dose: 5 ml Ondansetron HCl (Zofran) 4 mg IVPUSH ONETIME ONE Stop: 03/18/18 18:18 Last Admin: 03/18/18 18:27 Dose: 4 mg Ondansetron HCl (Zofran) Confirm Administered Dose 4 mg .ROUTE .STK-MED ONE Stop: 03/18/18 19:48 Ondansetron HCl (Zofran) Confirm Administered Dose 4 mg .ROUTE .STK-MED ONE Stop: 04/07/18 10:56 Oxycodone HCl (Oxycodone) 5 mg PO Q4H PRN PRN Reason: Pain (moderate 4-6) Last Admin: 04/06/18 05:19 Dose: 5 mg Pantoprazole Sodium (Protonix Iv) 40 mg IVPUSH DAILY [facility] Last Admin: 03/28/18 08:34 Dose: 40 mg Pantoprazole Sodium (Protonix) 40 mg PO ACBREAKFAST [facility] Last Admin: 04/07/18 08:10 Dose: 40 mg Pantoprazole Sodium (Protonix Iv) 40 mg IV Q24H [facility] Last Admin: 04/23/18 05:05 Dose: 40 mg Phenylephrine HCl (Isaías-Synephrine) Confirm Administered Dose 10 mg .ROUTE .STK- MED ONE Stop: 03/18/18 20:05 Potassium Chloride (Klor-Con M20) 40 meq PO ONETIME ONE Stop: 04/03/18 13:16 Last Admin: 04/03/18 14:33 Dose: 40 meq Potassium Chloride (Klor-Con M20) 40 meq PO ONETIME ONE Stop: 04/03/18 17:01 Last Admin: 04/03/18 20:55 Dose: 40 meq Potassium Chloride (Klor-Con M20) 40 meq PO ONETIME ONE Stop: 04/04/18 09:01 Last Admin: 04/04/18 09:34 Dose: 40 meq Potassium Chloride (Klor-Con M20) 40 meq PO ONETIME ONE Stop: 04/04/18 17:01 Last Admin: 04/04/18 17:08 Dose: 40 meq Potassium Chloride (Klor-Con M20) 40 meq PO ONETIME ONE Stop: 04/05/18 09:01 Last Admin: 04/05/18 10:14 Dose: 40 meq Potassium Chloride (Klor-Con M20) 40 meq PO ONETIME ONE Stop: 04/05/18 17:01 Last Admin: 04/05/18 18:00 Dose: 40 meq Potassium Chloride (Klor-Con M20) 40 meq PO ONETIME ONE Stop: 04/13/18 08:31 Last Admin: 04/13/18 08:42 Dose: 40 meq Potassium Chloride (Klor-Con M20) 40 meq PO ONETIME ONE Stop: 04/13/18 13:01 Last Admin: 04/13/18 12:44 Dose: 40 meq Potassium Chloride (Klor-Con M20) 40 meq PO ONETIME ONE Stop: 04/13/18 17:01 Last Admin: 04/13/18 16:57 Dose: 40 meq Potassium Chloride (Klor-Con M20) 40 meq PO ONETIME ONE Stop: 04/15/18 14:31 Last Admin: 04/15/18 15:16 Dose: 40 meq Prednisone (Prednisone) 20 mg PO WITHBREAKFAST [facility] Last Admin: 03/30/18 08:59 Dose: 20 mg Propofol (Diprivan 20 Ml) Confirm Administered Dose 200 mg .ROUTE .STK-MED ONE Stop: 03/18/18 19:48 Propofol (Diprivan 20 Ml) Confirm Administered Dose 200 mg .ROUTE .STK-MED ONE Stop: 04/02/18 12:59 Propofol (Diprivan 20 Ml) Confirm Administered Dose 200 mg .ROUTE .STK-MED ONE Stop: 04/07/18 10:56 Propofol (Diprivan 20 Ml) Confirm Administered Dose 200 mg .ROUTE .STK-MED ONE Stop: 04/21/18 12:05 Rocuronium Peck (Zemuron) Confirm Administered Dose 50 mg .ROUTE .STK-MED ONE Stop: 03/18/18 19:48 Rocuronium Peck (Zemuron) Confirm Administered Dose 50 mg .ROUTE .STK-MED ONE Stop: 04/07/18 10:56 Succinylcholine Chloride (Quelicin) Confirm Administered Dose 200 mg .ROUTE .STK -MED ONE Stop: 03/18/18 19:48 Vancomycin HCl (Vancomycin) 1 gm IV .PHARMACY TO DOSE [facility] Stop: 03/21/18 16:00 Vancomycin HCl (Vancomycin) 1 gm IV .PHARMACY TO DOSE [facility] Stop: 04/16/18 14:00 - Exam Quality Assessment: DVT Prophylaxis General: Alert, Oriented, Cooperative, Mild Distress Lungs: Clear to Auscultation, Normal Respiratory Effort Cardiovascular: Regular Rate, Regular Rhythm, No Murmurs GI/Abdominal Exam: Soft, No Organomegaly, Tender. No: Distended, Guarding, Rigid, Rebound Extremities: Non-Tender, No Pedal Edema - Problem List Review Problem List Initiated/Reviewed/Updated: Yes - Plan Plan:: ASSESSMENT AND PLAN WOUND DEHISCENCE WITH UNDERLYING ABSCESS - status post exploratory laparotomy . Wound healing well and wound VAC has been discontinued. Still has an ileus but otherwise seems to be doing fairly well. -Ciprofloxacin 400 mg IV every 12 hours -Zyvox IV -Transitioned to [place] catheter 04/21 -Surgical follow-up per surgery team OSTEOMYELITIS RIGHT FIRST TOE - Unable to obtain MRI. Arterial Doppler study showed evidence of significant peripheral arterial disease in the right leg. No pain or swelling at this time. -follow-up with interventional radiology/Cardiology while in acute rehabilitation -Anticipate 4-6 weeks of antibiotics, may be able to transition to oral antibiotics early next week (cipro/clinda or cipro/doxy?) ANEMIA OF ACUTE ILLNESS - patient has required frequent blood draws and has been critically ill and hospitalized for some time. Hemoglobin has been stable since transfusion with no evidence for bleeding. -Transfuse if less than 8 SIGMOID COLON PERFORATION RESULTING IN ACUTE ABDOMEN AND SEPTIC SHOCK - postop course complicated by wound dehiscence as above. He is receiving nutritional support via TPN. Persistent difficulty with very prolonged ileus. Ileus does seem to be improving over the past several days, tolerating oral intake with output into his colostomy -Continue TPN, rate decreased today per Dr. Linn -Continue metoclopramide -Post operative care per surgical team -Pain control -Saline lock IV ACUTE HYPOXIC RESPIRATORY FAILURE - respiratory status stable. Still on oxygen. -Now on oral furosemide -Coughing, deep breathing and suctioning as able -Reassess volume status daily COPD - [id number] smoking history but no evidence for exacerbation at this time. -Nebulized albuterol as needed HISTORY OF LUNG AND PROSTATE CARCINOMA - lung cancer felt to be stable, had been receiving treatment for management of prostate carcinoma prior to admission MAINTENANCE ISSUES -DVT prophylaxis; SCUDs -GI prophylaxis; Protonix 40 mg daily -Sorto catheter; has been successfully removed -Nutrition; clear liquids DISPOSITION - anticipate discharge to inpatient rehabilitation
[2018-04-27] MEDS: Ciprofloxacin in D5W 400 MG in Premix Bag 1 BAG IV SCH ×4 (12:03→23:04)
[2018-04-27] MEDS: Fat Emulsion 100 ML IV SCH (15:44)
[2018-04-27] MEDS: traMADol 50 MG Tab PO PRN (17:41)
[2018-04-27] MEDS: Morphine 10 MG/0.5 ML Oral Syringe PO PRN (20:38)
[2018-04-28] MEDS: Linezolid 600 MG in Premix Bag 1 BAG IV SCH (00:02)
[2018-04-28] MEDS: Magnesium Sulfate/Water 2 GM in Premix Bag 1 BAG IV SCH ×4 (04:02→21:03)
[2018-04-28] MEDS: Nystatin Susp 100,000 Unit/ML 5 ML UD Cup PO SCH ×4 (05:35→21:03)
[2018-04-28] MEDS: Albuterol/Ipratropium 3.0-0.5 MG/3 ML Neb Soln NEB SCH ×4 (07:13→21:11)
[2018-04-28] MEDS: Pantoprazole 40 MG Tab.CR PO SCH (07:14)
[2018-04-28] MEDS: traMADol 50 MG Tab PO PRN ×2 (07:39→21:51)
[2018-04-28] MEDS: Furosemide 20 MG Tab PO SCH (08:43)
[2018-04-28] MEDS: Lactobacillus Rhamnosus GG (Probiotic) Cap PO SCH ×2 (08:43→20:52)
[2018-04-28] MEDS: Bisacodyl 10 MG Supp RECTAL SCH ×2 (08:44→20:53)
[2018-04-28] MEDS: Metoclopramide 10 MG/2 ML SDV IVPUSH SCH ×3 (08:44→20:52)
[2018-04-28] MEDS: 1: AA 5%/Calcium/D15W/Lytes 1,000 ML with MVI, Adult with Vitamin K 10 ML, Chromium/Copp IV SCH ×3 (09:03)
[2018-04-28] MEDS: Ciprofloxacin in D5W 400 MG in Premix Bag 1 BAG IV SCH ×2 (11:09)
--- NOTE | 2018-04-28 12:04 | PCM.PN ---
- General Info Date of Service: 04/28/18 Subjective Update: Mr. Silva has remained stable since yesterday with further modest improvement in energy and oral intake. He has been placed on a soft landing diet which she seems to be tolerating fairly well today. Current plan is for discharge tomorrow to acute inpatient rehabilitation in [facility]. Functional Status: Reports: Pain Controlled, Tolerating Diet, Ambulating, Urinating - Review of Systems General: Reports: Weakness. Denies: Fever, Chills Pulmonary: Reports: No Symptoms Cardiovascular: Reports: No Symptoms Gastrointestinal: Reports: Abdominal Pain. Denies: Difficulty Swallowing, Nausea, Vomiting - Patient Data Vitals - Most Recent: Last Vital Signs Temp 97.9 F 04/28/18 11:00 Pulse 82 04/28/18 11:00 Resp 20 04/28/18 11:00 BP 95/57 L 04/28/18 11:00 Pulse Ox 92 L 04/28/18 11:00 Weight - Most Recent: 149 lb 3.2 oz I&O - Last 24 Hours: Intake & Output 04/27/18 04/28/18 04/28/18 22:59 06:59 14:59 Intake Total 1092 1230 250 Output Total 250 400 300 Balance 842 830 -50 Lab Results Last 24 Hours: Laboratory Results - last 24 hr 04/28/18 04/28/18 Range/Units 03:55 03:55 WBC 9.1 (4.5-11.0) K/uL RBC 3.57 L (4.30-5.90) M/uL Hgb 10.3 L (12.0-15.0) g/dL Hct 33.3 L (40.0-54.0) % MCV 93 (80-98) fL MCH 29 (27-31) pg MCHC 31 L (32-36) % Plt Count 264 (150-400) K/uL Sodium 138 L (140-148) mmol/L Potassium 4.1 (3.6-5.2) mmol/L Chloride 104 (100-108) mmol/L Carbon Dioxide 27 (21-32) mmol/L Anion Gap 11.1 (5.0-14.0) mmol/L BUN 24 H (7-18) mg/dL Creatinine 0.9 (0.8-1.3) mg/dL Est Cr Clr Drug Dosing 66.14 mL/min Estimated GFR (MDRD) > 60 (>60) Glucose 109 H (74-106) mg/dL Calcium 8.3 L (8.5-10.1) mg/dL Phosphorus 4.4 (2.5-4.9) mg/dL Total Bilirubin 0.4 (0.2-1.0) mg/dL AST 31 (15-37) U/L ALT 46 (12-78) U/L Alkaline Phosphatase 149 H (46-116) U/L NT-Pro-B Natriuret Pep 311 (5-450) pg/mL Total Protein 5.7 L (6.4-8.2) g/dL Albumin 2.2 L (3.4-5.0) g/dL Globulin 3.5 (2.3-3.5) g/dL Albumin/Globulin Ratio 0.6 L (1.2-2.2) Med Orders - Current: Current Medications Acetaminophen (Tylenol Jr. [place]) 640 mg PO Q4H PRN PRN Reason: Pain/Fever Last Admin: 04/28/18 07:38 Dose: 640 mg Albuterol (Proventil Neb Soln) 2.5 mg NEB Q4H PRN PRN Reason: Dyspnea Last Admin: 04/26/18 00:20 Dose: 2.5 mg Albuterol/Ipratropium (Duoneb 3.0-0.5 Mg/3 Ml) 3 ml NEB QIDRT [facility] Last Admin: 04/28/18 10:44 Dose: 3 ml Bisacodyl (Dulcolax) 10 mg RECTAL BID [facility] Last Admin: 04/28/18 08:44 Dose: 10 mg Calcium Carbonate/Glycine (Tums) 1,000 mg PO Q2H PRN PRN Reason: Indigestion Last Admin: 04/15/18 20:27 Dose: 1,000 mg Ciprofloxacin (Ciprofloxacin Hcl) 500 mg PO BID [facility] Dimethicone/Zinc Oxide (Rash Relief-Zinc Oxide [place]) 0 gm TOP ASDIRECTED PRN PRN Reason: Rash Last Admin: 03/28/18 16:55 Dose: 1 spray Diphenhydramine HCl (Benadryl) 25 mg IVPUSH Q4H PRN PRN Reason: Itching Furosemide (Lasix) 20 mg PO DAILY [facility] Last Admin: 04/28/18 08:43 Dose: 20 mg Heparin Sodium (Porcine) (Heparin Lock Flush 100 Units/Ml) 500 units FLUSH ASDIRECTED PRN PRN Reason: Keep Vein Open Hydrocortisone (Hydrocortisone 1% Crm) 30 gm TOP ASDIRECTED PRN PRN Reason: itching Hydromorphone HCl (Dilaudid) 0.5 mg IVPUSH Q2H PRN PRN Reason: Pain Last Admin: 04/25/18 18:12 Dose: 0.5 mg Hydroxyzine HCl (Vistaril) 50 mg IM Q6H PRN PRN Reason: Pain Last Admin: 04/19/18 15:43 Dose: 50 mg Fat Emulsion Intravenous (Intralipid 20%) 100 mls @ 8.3 mls/hr IV Q48H [facility] Last Admin: 04/27/18 15:44 Dose: 8.3 mls/hr Magnesium Sulfate 2 gm/ Premix 50 mls @ 25 mls/hr IV Q6H [facility] Stop: 04/30/18 05:59 Last Admin: 04/28/18 10:23 Dose: 25 mls/hr Multivitamins/Minerals 10 ml/Chromium/Copper/Manganese/Seleni/Zn 1 ml/ Amino Ac/ Electrol/Dextrose/Calcium 1,011 mls @ 42 mls/hr IV .BY DURATION [facility] Last Admin: 04/28/18 09:03 Dose: 42 mls/hr Amino Ac/Electrol/Dextrose/Calcium (Clinimix E 5/15) 1,000 mls @ 42 mls/hr IV .BY DURATION [facility] Lactobacillus Rhamnosus (Culturelle) 1 cap PO BID [facility] Last Admin: 04/28/18 08:43 Dose: 1 cap Linezolid (Zyvox) 600 mg PO Q12H [facility] Lorazepam (Ativan) 0.5 mg IVPUSH Q4H PRN PRN Reason: Nausea Last Admin: 04/25/18 22:55 Dose: 0.5 mg Metoclopramide HCl (Reglan) 10 mg IVPUSH TID [facility] Last Admin: 04/28/18 08:44 Dose: 10 mg Morphine Sulfate (Morphine 10 Mg/0.5 Ml Oral Syringe) 5 mg PO Q4HWA PRN PRN Reason: Pain Last Admin: 04/27/18 20:38 Dose: 5 mg Nystatin (Mycostatin) 2 ml PO QID [facility] Stop: 05/10/18 06:01 Last Admin: 04/28/18 11:10 Dose: 2 ml Ondansetron HCl (Zofran) 4 mg IVPUSH Q6H PRN PRN Reason: Nausea/Vomiting Pantoprazole Sodium (Protonix) 40 mg PO ACBREAKFAST [facility] Last Admin: 04/28/18 07:14 Dose: 40 mg Tramadol HCl (Ultram) 25 - 50 mg PO Q6H PRN PRN Reason: Pain Last Admin: 04/28/18 07:39 Dose: 25 mg Discontinued Medications Acetaminophen (Tylenol) 650 mg RECTAL Q4H PRN PRN Reason: Fever Acetaminophen (Tylenol) 650 mg PO Q4H PRN PRN Reason: Pain/Fever Last Admin: 04/05/18 20:14 Dose: 650 mg Acetaminophen (Tylenol) 1,000 mg GTUBE Q6H [facility] Last Admin: 04/17/18 14:02 Dose: 1,000 mg Acetaminophen (Tylenol) 1,000 mg GTUBE Q6H [facility] Last Admin: 04/21/18 02:39 Dose: 1,000 mg Albuterol/Ipratropium (Duoneb 3.0-0.5 Mg/3 Ml) 3 ml NEB Q4H PRN PRN Reason: Dyspnea Albuterol/Ipratropium (Duoneb 3.0-0.5 Mg/3 Ml) 3 ml NEB ONETIME ONE Stop: 04/07/18 10:31 Last Admin: 04/07/18 10:26 Dose: Not Given Bupivacaine HCl (Marcaine 0.5%) Confirm Administered Dose 50 ml .ROUTE .STK-MED ONE Stop: 04/07/18 12:06 Bupivacaine HCl (Marcaine 0.5%) Confirm Administered Dose 50 ml .ROUTE .STK-MED ONE Stop: 04/19/18 07:31 Bupivacaine HCl (Marcaine 0.5%) Confirm Administered Dose 50 ml .ROUTE .STK-MED ONE Stop: 04/21/18 07:22 Last Admin: 04/21/18 13:46 Dose: 3.5 ml Ropivacaine 34 ml/Dexamethasone 8 mg/Epinephrine HCl 0.4 mg/ Sodium Chloride 43.6 ml 0 ml NERVRT ASDIRECTED [facility] Last Admin: 04/07/18 16:01 Dose: 80 syringe Dexamethasone (Dexamethasone) Confirm Administered Dose 4 mg .ROUTE .STK-MED ONE Stop: 03/18/18 19:48 Dexamethasone (Dexamethasone) Confirm Administered Dose 4 mg .ROUTE .STK-MED ONE Stop: 04/07/18 10:56 Diphenhydramine HCl (Benadryl) 25 mg IVPUSH Q6H PRN PRN Reason: Itching Last Admin: 04/22/18 23:22 Dose: 25 mg Epinephrine HCl (Adrenalin) Confirm Administered Dose 1 mg .ROUTE .STK-MED ONE Stop: 03/18/18 21:07 Erythromycin (Jh-Tab) 250 mg PO TID@0730,1630,2130 [facility] Last Admin: 04/17/18 10:03 Dose: 250 mg Erythromycin (Jh-Tab) 250 mg PO TID@0800,1400,2000 [facility] Stop: 04/18/18 08:01 Last Admin: 04/18/18 08:16 Dose: 250 mg Erythromycin Ethylsuccinate (Eryped 400) 125 mg PO Q6H [facility] Last Admin: 04/07/18 15:14 Dose: Not Given Erythromycin Ethylsuccinate (Eryped 200) 250 mg PO TID@0800,1400,2000 [facility] Last Admin: 04/23/18 07:35 Dose: 250 mg Fentanyl (Sublimaze) Confirm Administered Dose 250 mcg .ROUTE .STK-MED ONE Stop: 03/18/18 19:48 Fentanyl (Sublimaze) Confirm Administered Dose 250 mcg .ROUTE .STK-MED ONE Stop: 04/02/18 12:59 Fentanyl (Sublimaze) Confirm Administered Dose 250 mcg .ROUTE .STK-MED ONE Stop: 04/07/18 10:56 Fentanyl (Sublimaze) Confirm Administered Dose 100 mcg .ROUTE .STK-MED ONE Stop: 04/21/18 12:05 Furosemide (Lasix) 20 mg IVPUSH ONETIME ONE Stop: 03/23/18 09:46 Last Admin: 03/23/18 10:18 Dose: 20 mg Furosemide (Lasix) 20 mg IVPUSH NOW ONE Stop: 03/25/18 10:01 Last Admin: 03/25/18 10:17 Dose: 20 mg Furosemide (Lasix) 20 mg IVPUSH ONETIME ONE Stop: 03/26/18 09:16 Last Admin: 03/26/18 09:10 Dose: 20 mg Furosemide (Lasix) 20 mg IVPUSH ONETIME ONE Stop: 03/26/18 16:01 Last Admin: 03/26/18 18:28 Dose: Not Given Furosemide (Lasix) 20 mg IVPUSH NOW ONE Stop: 03/27/18 10:01 Last Admin: 03/27/18 10:26 Dose: 20 mg Furosemide (Lasix) 20 mg IVPUSH ONETIME ONE Stop: 03/30/18 13:11 Last Admin: 03/30/18 13:36 Dose: 20 mg Furosemide (Lasix) 20 mg IVPUSH NOW ONE Stop: 03/31/18 11:55 Last Admin: 03/31/18 13:04 Dose: 20 mg Furosemide (Lasix) 20 mg IVPUSH NOW ONE Stop: 04/01/18 12:05 Last Admin: 04/01/18 12:43 Dose: 20 mg Furosemide (Lasix) 20 mg IVPUSH NOW ONE Stop: 04/02/18 15:46 Last Admin: 04/02/18 15:53 Dose: 20 mg Furosemide (Lasix) 40 mg IVPUSH NOW ONE Stop: 04/03/18 09:01 Last Admin: 04/03/18 09:45 Dose: 40 mg Furosemide (Lasix) 40 mg IVPUSH NOW ONE Stop: 04/04/18 15:31 Last Admin: 04/04/18 15:55 Dose: 40 mg Furosemide (Lasix) 40 mg IVPUSH NOW ONE Stop: 04/05/18 09:01 Last Admin: 04/05/18 10:15 Dose: 40 mg Furosemide (Lasix) 40 mg IVPUSH ONETIME ONE Stop: 04/08/18 12:01 Last Admin: 04/08/18 11:01 Dose: 40 mg Furosemide (Lasix) 40 mg IVPUSH ONETIME STA Stop: 04/09/18 06:48 Last Admin: 04/09/18 10:16 Dose: Not Given Furosemide (Lasix) 20 mg IVPUSH ONETIME ONE Stop: 04/09/18 12:01 Last Admin: 04/09/18 13:43 Dose: Not Given Furosemide (Lasix) 40 mg IVPUSH ONETIME STA Stop: 04/09/18 10:08 Last Admin: 04/09/18 10:09 Dose: 40 mg Furosemide (Lasix) Confirm Administered Dose 40 mg .ROUTE .STK-MED ONE Stop: 04/09/18 10:08 Last Admin: 04/09/18 10:16 Dose: 40 mg Furosemide (Lasix) 40 mg IVPUSH ONETIME ONE Stop: 04/09/18 16:01 Last Admin: 04/09/18 15:54 Dose: 40 mg Furosemide (Lasix) 40 mg IVPUSH ONETIME ONE Stop: 04/10/18 12:01 Last Admin: 04/10/18 14:03 Dose: 40 mg Furosemide (Lasix) 20 mg IVPUSH ONETIME ONE Stop: 04/10/18 20:01 Last Admin: 04/10/18 21:10 Dose: 20 mg Furosemide (Lasix) 40 mg IVPUSH NOW ONE Stop: 04/11/18 11:31 Last Admin: 04/11/18 12:58 Dose: 40 mg Furosemide (Lasix) 40 mg IVPUSH NOW ONE Stop: 04/12/18 11:21 Last Admin: 04/12/18 13:28 Dose: 40 mg Furosemide (Lasix) Confirm Administered Dose 40 mg .ROUTE .STK-MED ONE Stop: 04/12/18 13:27 Last Admin: 04/12/18 13:52 Dose: Not Given Furosemide (Lasix) 40 mg IVPUSH NOW ONE Stop: 04/13/18 08:31 Last Admin: 04/13/18 08:42 Dose: 40 mg Furosemide (Lasix) 40 mg IVPUSH NOW ONE Stop: 04/14/18 10:01 Last Admin: 04/14/18 10:09 Dose: 40 mg Furosemide (Lasix) 20 mg IV ONETIME ONE Stop: 04/17/18 12:31 Last Admin: 04/17/18 12:22 Dose: 20 mg Furosemide (Lasix) 20 mg IVPUSH ONETIME ONE Stop: 04/20/18 12:55 Last Admin: 04/20/18 13:57 Dose: 20 mg Furosemide (Lasix) 20 mg IVPUSH ONETIME ONE Stop: 04/21/18 10:01 Last Admin: 04/21/18 09:37 Dose: 20 mg Furosemide (Lasix) 40 mg IVPUSH ONETIME ONE Stop: 04/21/18 10:01 Last Admin: 04/21/18 09:52 Dose: 40 mg Furosemide (Lasix) 20 mg IVPUSH ONETIME ONE Stop: 04/22/18 11:01 Furosemide (Lasix) 40 mg IVPUSH ONETIME ONE Stop: 04/23/18 08:01 Last Admin: 04/23/18 07:38 Dose: 40 mg Furosemide (Lasix) 40 mg IVPUSH ONETIME ONE Stop: 04/22/18 11:01 Last Admin: 04/22/18 10:32 Dose: 40 mg Furosemide (Lasix) 60 mg IVPUSH NOW ONE Stop: 04/26/18 10:31 Last Admin: 04/26/18 10:52 Dose: 60 mg Glycopyrrolate (Robinul) Confirm Administered Dose 1 mg .ROUTE .STK-MED ONE Stop: 03/18/18 19:48 Glycopyrrolate (Robinul) Confirm Administered Dose 1 mg .ROUTE .STK-MED ONE Stop: 04/07/18 10:56 Heparin Sodium (Porcine) (Heparin Sodium) Confirm Administered Dose 5,000 units .ROUTE .STK-MED ONE Stop: 03/18/18 19:51 Heparin Sodium (Porcine) (Heparin Lock Flush 100 Units/Ml) 500 units FLUSH ASDIRECTED PRN PRN Reason: IV Use Last Admin: 04/22/18 05:16 Dose: 500 units Heparin Sodium (Porcine) (Heparin Lock Flush 100 Units/Ml) Confirm Administered Dose 500 units .ROUTE .STK-MED ONE Stop: 03/22/18 12:17 Last Admin: 03/22/18 12:30 Dose: Not Given Heparin Sodium (Porcine) (Heparin Sodium) Confirm Administered Dose 5,000 units .ROUTE .STK-MED ONE Stop: 03/24/18 19:52 Last Admin: 03/24/18 20:33 Dose: 5,000 units Heparin Sodium (Porcine) (Heparin Lock Flush 100 Units/Ml) Confirm Administered Dose 1,000 units .ROUTE .STK-MED ONE Stop: 04/07/18 12:06 Last Admin: 04/07/18 14:30 Dose: 500 units Heparin Sodium (Porcine) (Heparin Lock Flush 100 Units/Ml) Confirm Administered Dose 1,500 units .ROUTE .STK-MED ONE Stop: 04/19/18 07:31 Heparin Sodium (Porcine) (Heparin Lock Flush 100 Units/Ml) Confirm Administered Dose 1,000 units .ROUTE .STK-MED ONE Stop: 04/21/18 07:22 Last Admin: 04/21/18 13:46 Dose: 1,000 units Heparin Sodium (Porcine) (Heparin Lock Flush 100 Units/Ml) Confirm Administered Dose 500 units .ROUTE .STK-MED ONE Stop: 04/21/18 07:23 Last Admin: 04/21/18 13:46 Dose: 500 units Heparin Sodium (Porcine) (Heparin Lock Flush 100 Units/Ml) Confirm Administered Dose 500 units .ROUTE .STK-MED ONE Stop: 04/26/18 08:00 Last Admin: 04/26/18 08:10 Dose: 500 units Heparin Sodium (Porcine) (Heparin Lock Flush 100 Units/Ml) 500 units FLUSH ONETIME ONE Stop: 04/26/18 08:00 Last Admin: 04/27/18 11:59 Dose: Not Given Hydrocortisone Sodium Succinate (Solu-Cortef) 100 mg IVPUSH Q12H [facility] Last Admin: 03/28/18 20:15 Dose: 100 mg Hydrocortisone Sodium Succinate (Solu-Cortef) 100 mg IVPUSH DAILY [facility] Last Admin: 03/30/18 13:39 Dose: Not Given Hydromorphone HCl (Dilaudid) 0.5 mg IVPUSH ONETIME ONE Stop: 03/18/18 17:43 Last Admin: 03/18/18 17:47 Dose: 0.5 mg Hydromorphone HCl (Dilaudid) 1 mg IVPUSH ONETIME ONE Stop: 03/18/18 18:18 Last Admin: 03/18/18 18:27 Dose: 1 mg Hydromorphone HCl (Dilaudid) 0.5 mg IVPUSH ONETIME ONE Stop: 04/16/18 09:58 Last Admin: 04/16/18 10:31 Dose: 0.5 mg Hydroxyzine HCl (Vistaril) 100 mg IM Q6H PRN PRN Reason: Pain Last Admin: 04/11/18 08:49 Dose: 100 mg Sodium Chloride (Normal Saline) 1,000 mls @ 1,000 mls/hr IV ASDIRECTED [facility] Last Admin: 03/18/18 17:47 Dose: 1,000 mls/hr Sodium Chloride (Normal Saline) 1,000 mls @ 999 mls/hr IV ASDIRECTED [facility] Last Admin: 03/18/18 19:31 Dose: 999 mls/hr Meropenem 500 mg/ Sodium (Chloride) 50 mls @ 100 mls/hr IV ONETIME ONE Stop: 03/18/18 19:09 Last Admin: 03/18/18 19:01 Dose: 100 mls/hr Sodium Chloride (Normal Saline) Confirm Administered Dose 50 mls @ as directed .ROUTE .STK-MED ONE Stop: 03/18/18 19:40 Last Admin: 03/18/18 20:19 Dose: Not Given Aztreonam 2 gm/ Sodium (Chloride) 50 mls @ 100 mls/hr IV ONETIME ONE Stop: 03/18/18 20:01 Last Admin: 03/18/18 20:44 Dose: 100 mls/hr Meropenem 500 mg/ Sodium (Chloride) 50 mls @ 100 mls/hr IV ONETIME ONE Stop: 03/18/18 20:00 Last Admin: 03/18/18 19:40 Dose: 100 mls/hr Sodium Chloride (Normal Saline) Confirm Administered Dose 250 mls @ as directed .ROUTE .ST-MED ONE Stop: 03/18/18 19:59 Lactated Ringer's (Ringers, Lactated) Confirm Administered Dose 1,000 mls @ as directed .ROUTE .ST-MED ONE Stop: 03/18/18 19:59 Sodium Chloride (Normal Saline) Confirm Administered Dose 500 mls @ as directed .ROUTE .ST-MED ONE Stop: 03/18/18 19:59 Norepinephrine Bitartrate 8 mg (/ Dextrose/Water) 258 mls @ 3.87 mls/hr IV TITRATE [facility]; Protocol Last Admin: 03/19/18 11:45 Dose: 12 mcg/min, 23.22 mls/hr Lactated Ringer's (Ringers, Lactated) Confirm Administered Dose 1,000 mls @ as directed .ROUTE .STK-MED ONE Stop: 03/18/18 21:42 Propofol (Diprivan 100 Ml) 100 mls @ 2.082 mls/hr IV TITRATE [facility]; Protocol Last Titration: 03/27/18 06:35 Dose: 10 mcg/kg/min, 4.164 mls/hr Aztreonam 1 gm/ Sodium (Chloride) 50 mls @ 100 mls/hr IV Q8H [facility] Last Admin: 03/19/18 05:29 Dose: 100 mls/hr Potassium Chloride/Dextrose/Sod Cl (D5 1/2 Ns W/ 20 Meq/L Kcl) 1,000 mls @ 150 mls/hr IV ASDIRECTED [facility] Last Admin: 03/18/18 23:11 Dose: 150 mls/hr Meropenem 1 gm/ Sodium (Chloride) 50 mls @ 100 mls/hr IV Q12H [facility] Stop: 03/29/18 22:00 Last Admin: 03/29/18 20:10 Dose: 100 mls/hr Lactated Ringer's (Ringers, Lactated) 1,000 mls @ 500 mls/hr IV ASDIRECTED [facility] Last Admin: 03/19/18 01:23 Dose: 500 mls/hr Vasopressin 100 units/ (Dextrose/Water) 255 mls @ 1.53 mls/hr IV TITRATE [facility]; Protocol Stop: 03/21/18 13:00 Last Titration: 03/21/18 11:03 Dose: 0.02 units/min, 3.06 mls/hr Lactated Ringer's (Ringers, Lactated) 1,000 mls @ 500 mls/hr IV BOLUS [facility] Stop: 03/19/18 05:29 Last Admin: 03/19/18 04:02 Dose: 500 mls/hr Aztreonam/Dextrose 1 gm/ (Premix) 50 mls @ 100 mls/hr IV Q8H [facility] Last Admin: 03/28/18 05:26 Dose: 100 mls/hr Lactated Ringer's (Ringers, Lactated) 1,000 mls @ 500 mls/hr IV .BOLUS ONE Stop: 03/19/18 14:59 Last Admin: 03/19/18 14:27 Dose: 500 mls/hr Lactated Ringer's (Ringers, Lactated) 1,000 mls @ 150 mls/hr IV ASDIRECTED [facility] Last Admin: 03/21/18 11:53 Dose: 150 mls/hr Norepinephrine Bitartrate 8 mg (/ Dextrose/Water) 250 mls @ 3.75 mls/hr IV TITRATE [facility]; Protocol Last Titration: 03/27/18 09:04 Dose: 4 mcg/min, 7.5 mls/hr Magnesium Sulfate 2 gm/ Premix 50 mls @ 25 mls/hr IV Q6H [facility] Stop: 03/20/18 17:59 Last Admin: 03/20/18 16:30 Dose: 25 mls/hr Vancomycin HCl 1.25 gm/ Sodium (Chloride) 250 mls @ 170 mls/hr IV Q24H [facility] Last Admin: 03/22/18 10:06 Dose: 170 mls/hr Vasopressin 40 units/ Dextrose (/Water) 100 mls @ 3 mls/hr IV TITRATE [facility]; Protocol Last Titration: 03/23/18 01:00 Dose: 0 units/min, 0 mls/hr Potassium Chloride 20 meq/ (Premix) 100 mls @ 50 mls/hr IV Q2H [facility] Stop: 03/21/18 22:59 Last Admin: 03/21/18 22:20 Dose: 50 mls/hr Potassium Chloride 20 meq/ (Premix) 100 mls @ 50 mls/hr IV Q2H [facility] Stop: 03/22/18 12:59 Last Admin: 03/22/18 11:30 Dose: 50 mls/hr Potassium Chloride 20 meq/ (Premix) 100 mls @ 50 mls/hr IV Q2H [facility] Stop: 03/22/18 17:29 Last Admin: 03/22/18 16:13 Dose: 50 mls/hr Potassium Chloride (Kcl 20 Meq In Water 100 Ml) 100 mls @ 50 mls/hr IV Q2H [facility] Stop: 03/23/18 01:59 Last Admin: 03/23/18 00:53 Dose: 50 mls/hr Potassium Chloride 40 meq/ (Premix) 100 mls @ 25 mls/hr IV ONETIME ONE Stop: 03/23/18 14:29 Last Admin: 03/23/18 10:31 Dose: 25 mls/hr Vancomycin HCl 1.4 gm/ Sodium (Chloride) 250 mls @ 170 mls/hr IV Q24H [facility] Last Admin: 03/24/18 11:13 Dose: 170 mls/hr Multivitamins/Minerals 10 ml/Chromium/Copper/Manganese/Seleni/Zn 1 ml/ Amino Ac/ Electrol/Dextrose/Calcium 1,011 mls @ 75 mls/hr IV .BY DURATION [facility] Last Admin: 03/25/18 22:34 Dose: 75 mls/hr Amino Ac/Electrol/Dextrose/Calcium (Clinimix E 15) 1,000 mls @ 75 mls/hr IV .BY DURATION [facility] Last Admin: 03/25/18 08:11 Dose: 75 mls/hr Vasopressin 100 units/ (Dextrose/Water) 255 mls @ 1.53 mls/hr IV TITRATE [facility]; Protocol Last Titration: 03/25/18 11:51 Dose: 0 units/min, 0 mls/hr Potassium Chloride 20 meq/ (Premix) 100 mls @ 50 mls/hr IV Q2H [facility] Stop: 03/24/18 13:59 Last Admin: 03/24/18 12:13 Dose: 50 mls/hr Multivitamins/Minerals 10 ml/Chromium/Copper/Manganese/Seleni/Zn 1 ml/ Amino Ac/ Electrol/Dextrose/Calcium 1,011 mls @ 75 mls/hr IV .BY DURATION [facility] Last Admin: 03/29/18 06:48 Dose: 75 mls/hr Amino Ac/Electrol/Dextrose/Calcium (Clinimix E 5/15) 1,000 mls @ 75 mls/hr IV .BY DURATION [facility] Last Admin: 03/29/18 20:12 Dose: 75 mls/hr Heparin Sodium (Porcine) 5,000 (units/ Sodium Chloride) 501 mls @ 5 mls/hr IV ASDIRECTED [facility] Last Admin: 03/27/18 12:50 Dose: 5 mls/hr Sodium Chloride (Normal Saline) 1,000 mls @ 50 mls/hr IV ASDIRECTED [facility] Last Admin: 03/30/18 13:36 Dose: 50 mls/hr Dextrose/Sodium Chloride (Dextrose 5%-1/2 Ns) 1,000 mls @ 75 mls/hr IV ASDIRECTED [facility] Last Admin: 03/31/18 23:53 Dose: 75 mls/hr Albumin Human (Albumin 25%) 25 gm in 100 mls @ 25 mls/hr IV Q24H [facility] Stop: 04/02/18 12:59 Last Admin: 04/01/18 08:13 Dose: 25 mls/hr Potassium Phosphate 20 mmole/ (Sodium Chloride) 256.6667 mls @ 85 mls/hr IV Q3H [facility] Stop: 04/01/18 18:59 Last Admin: 04/01/18 18:37 Dose: 85 mls/hr Dextrose/Sodium Chloride (Dextrose 5%-1/2 Ns) 1,000 mls @ 80 mls/hr IV ASDIRECTED [facility] Last Admin: 04/03/18 06:40 Dose: 80 mls/hr Cefazolin Sodium/Dextrose 2 gm (/ Premix) 50 mls @ 100 mls/hr IV ONCALL ONE Stop: 04/02/18 11:59 Last Admin: 04/02/18 13:59 Dose: 100 mls/hr Potassium Acetate 20 meq/ (Sodium Chloride) 110 mls @ 55 mls/hr IV Q2H [facility] Stop: 04/02/18 11:59 Last Admin: 04/02/18 10:10 Dose: 55 mls/hr Magnesium Sulfate 2 gm/ Premix 50 mls @ 25 mls/hr IV Q6H [facility] Stop: 04/05/18 07:59 Last Admin: 04/03/18 12:11 Dose: 25 mls/hr Albumin Human (Albumin 25%) 25 gm in 100 mls @ 25 mls/hr IV ONETIME ONE Stop: 04/02/18 17:59 Last Admin: 04/02/18 15:30 Dose: 25 mls/hr Potassium Chloride 20 meq/Lidocaine HCl 2 ml/ Sodium Chloride 112 mls @ 56 mls/ hr IV Q2H [facility] Stop: 04/03/18 17:59 Last Admin: 04/03/18 17:04 Dose: 56 mls/hr Magnesium Sulfate 2 gm/ Premix 50 mls @ 25 mls/hr IV Q6H [facility] Stop: 04/08/18 03:59 Last Admin: 04/07/18 15:14 Dose: Not Given Potassium Phosphate 15 mmole/ (Sodium Chloride) 255 mls @ 128 mls/hr IV Q2H [facility] Stop: 04/06/18 13:59 Last Admin: 04/06/18 12:49 Dose: 128 mls/hr Dextrose/Lactated Ringer's (Dextrose 5%-Lactated Ringers) 1,000 mls @ 100 mls/ hr IV ASDIRECTED [facility] Last Admin: 04/07/18 08:44 Dose: 100 mls/hr Meropenem 500 mg/ Sodium (Chloride) 50 mls @ 100 mls/hr IV ONCALL ONE Stop: 04/07/18 11:59 Last Admin: 04/07/18 15:13 Dose: Not Given Linezolid (Zyvox) Confirm Administered Dose 300 mls @ as directed .ROUTE .STK- MED ONE Stop: 04/07/18 15:26 Lactated Ringer's (Ringers, Lactated) Confirm Administered Dose 1,000 mls @ as directed .ROUTE .STK-MED ONE Stop: 04/07/18 15:35 Linezolid 600 mg/ Premix 300 mls @ 300 mls/hr IV ONETIME ONE Stop: 04/07/18 17:29 Last Admin: 04/07/18 16:25 Dose: 300 mls/hr Dextrose/Lactated Ringer's (Dextrose 5%-Lactated Ringers) 1,000 mls @ 175 mls/ hr IV ASDIRECTED [facility] Last Admin: 04/08/18 06:21 Dose: 175 mls/hr Linezolid 600 mg/ Premix 300 mls @ 300 mls/hr IV Q12H [facility] Last Admin: 04/10/18 03:46 Dose: 300 mls/hr Meropenem 500 mg/ Sodium (Chloride) 50 mls @ 100 mls/hr IV Q8H [facility] Last Admin: 04/11/18 06:23 Dose: 100 mls/hr Magnesium Sulfate 2 gm/ Premix 50 mls @ 25 mls/hr IV Q6H [facility] Stop: 04/09/18 13:59 Last Admin: 04/09/18 11:40 Dose: 25 mls/hr Dextrose/Lactated Ringer's (Dextrose 5%-Lactated Ringers) 1,000 mls @ 100 drops /hr IV ASDIRECTED [facility] Last Admin: 04/09/18 11:39 Dose: 100 drops/hr Multivitamins/Minerals 10 ml/Chromium/Copper/Manganese/Seleni/Zn 1 ml/ Amino Ac/ Electrol/Dextrose/Calcium 1,011 mls @ 82 mls/hr IV .BY DURATION [facility] Stop: 04/27/18 08:50 Last Admin: 04/26/18 20:49 Dose: 82 mls/hr Amino Ac/Electrol/Dextrose/Calcium (Clinimix E 15) 1,000 mls @ 82 mls/hr IV .BY DURATION [facility] Stop: 04/27/18 08:50 Last Admin: 04/26/18 08:40 Dose: 82 mls/hr Albumin Human (Albumin 25%) 25 gm in 100 mls @ 25 mls/hr IV Q24H [facility] Stop: 04/12/18 13:59 Last Admin: 04/12/18 09:28 Dose: 25 mls/hr Albumin Human (Albumin 25%) 25 gm in 100 mls @ 25 mls/hr IV Q24H [facility] Stop: 04/12/18 17:59 Last Admin: 04/12/18 14:19 Dose: 25 mls/hr Dextrose/Lactated Ringer's (Dextrose 5%-Lactated Ringers) 1,000 mls @ 25 mls/ hr IV ASDIRECTED [facility] Sodium Chloride (Normal Saline) 1,000 mls @ 0 mls/hr IV ASDIRECTED [facility] Potassium Phosphate 22.5 mmole (/ Sodium Chloride) 257.5 mls @ 86 mls/hr IV Q3H [facility] Stop: 04/10/18 15:59 Last Admin: 04/10/18 14:47 Dose: 86 mls/hr Calcium Gluconate 1 gm/ Sodium (Chloride) 110 mls @ 100 mls/hr IV Q6H [facility] Stop: 04/10/18 18:05 Last Admin: 04/10/18 16:21 Dose: 100 mls/hr Doxycycline Hyclate 100 mg/ (Sodium Chloride) 100 mls @ 100 mls/hr IV Q12H [facility] Last Admin: 04/16/18 12:08 Dose: 100 mls/hr Ciprofloxacin/Dextrose 400 mg/ (Premix) 200 mls @ 200 mls/hr IV Q12H [facility] Last Admin: 04/28/18 11:09 Dose: 200 mls/hr Acetaminophen 1,000 mg/ Premix 100 mls @ 400 mls/hr IV Q6H [facility] Stop: 04/12/18 06:44 Last Admin: 04/12/18 05:47 Dose: 400 mls/hr Potassium Chloride 20 meq/ (Premix) 100 mls @ 50 mls/hr IV Q2H [facility] Stop: 04/12/18 14:59 Last Admin: 04/12/18 13:29 Dose: 50 mls/hr Potassium Chloride 40 meq/ (Premix) 100 mls @ 25 mls/hr IV ONETIME ONE Stop: 04/12/18 12:19 Potassium Chloride 40 meq/ (Premix) 100 mls @ 25 mls/hr IV ONETIME ONE Stop: 04/12/18 20:59 Last Admin: 04/12/18 17:45 Dose: 25 mls/hr Potassium Phosphate 25 mmole/ (Sodium Chloride) 108.3333 mls @ 27 mls/hr IV Q4H [facility] Stop: 04/13/18 21:29 Last Admin: 04/13/18 18:13 Dose: 27 mls/hr Magnesium Sulfate 2 gm/ Premix 50 mls @ 25 mls/hr IV Q6H [facility] Stop: 04/17/18 04:59 Last Admin: 04/15/18 08:34 Dose: 25 mls/hr Vancomycin HCl 1.35 gm/ Sodium (Chloride) 250 mls @ 167 mls/hr IV ONETIME ONE Stop: 04/16/18 15:29 Last Admin: 04/16/18 15:04 Dose: 167 mls/hr Vancomycin HCl 1 gm/ Sodium (Chloride) 250 mls @ 167 mls/hr IV Q12H [facility] Last Admin: 04/17/18 02:21 Dose: 167 mls/hr Linezolid 600 mg/ Premix 300 mls @ 300 mls/hr IV Q12H [facility] Last Admin: 04/28/18 00:02 Dose: 300 mls/hr Magnesium Sulfate 2 gm/ Premix 50 mls @ 25 mls/hr IV Q6H [facility] Stop: 04/21/18 02:59 Last Admin: 04/18/18 08:02 Dose: Not Given Magnesium Sulfate 2 gm/ Premix 50 mls @ 25 mls/hr IV Q6H [facility] Stop: 04/18/18 17:59 Last Admin: 04/18/18 16:28 Dose: 25 mls/hr Potassium Chloride 20 meq/ (Premix) 100 mls @ 50 mls/hr IV Q2H [facility] Stop: 04/19/18 08:59 Last Admin: 04/19/18 07:37 Dose: 50 mls/hr Sodium Chloride (Normal Saline) 71 mls @ 3.1 mls/sec IV ASDIRECTED STA Stop: 04/19/18 08:28 Last Admin: 04/19/18 09:15 Dose: 3.1 mls/sec Magnesium Sulfate 2 gm/ Premix 50 mls @ 25 mls/hr IV Q6H [facility] Stop: 04/24/18 04:59 Last Admin: 04/24/18 03:19 Dose: 25 mls/hr Sodium Chloride (Normal Saline) Confirm Administered Dose 500 mls @ as directed .ROUTE .STK-MED ONE Stop: 04/21/18 13:40 Insulin Human Lispro (Humalog) 0 unit SUBCUT Q6H [facility]; Protocol Last Admin: 03/30/18 16:32 Dose: Not Given Insulin Human Lispro (Humalog) 0 unit SUBCUT Q6H [facility]; Protocol Last Admin: 03/31/18 03:52 Dose: Not Given Insulin Human Lispro (Humalog) 0 unit SUBCUT QIDACANDBED [facility]; Protocol Stop: 04/12/18 11:01 Last Admin: 03/31/18 13:17 Dose: Not Given Iopamidol (Isovue-300 (61%)) 100 ml IV . DIRECTED STA Stop: 04/19/18 08:28 Last Admin: 04/19/18 09:15 Dose: 100 ml Lidocaine/Epinephrine (Xylocaine 1% With Epinephrine 1:100,000) Confirm Administered Dose 50 ml .ROUTE .STK-MED ONE Stop: 04/07/18 12:06 Lidocaine/Epinephrine (Xylocaine 1% With Epinephrine 1:100,000) Confirm Administered Dose 50 ml .ROUTE .STK-MED ONE Stop: 04/19/18 07:31 Lidocaine/Epinephrine (Xylocaine 1% With Epinephrine 1:100,000) Confirm Administered Dose 50 ml .ROUTE .STK-MED ONE Stop: 04/21/18 07:22 Last Admin: 04/21/18 13:46 Dose: 3.5 ml Linezolid (Zyvox) 600 mg IRR .STK-MED ONE Stop: 04/07/18 16:06 Last Admin: 04/07/18 16:05 Dose: 600 mg Loperamide HCl (Imodium) 2 mg PO ASDIRECTED PRN PRN Reason: DIARRHEA Melatonin (Melatonin) 9 mg PO BEDTIME [facility] Last Admin: 04/06/18 21:40 Dose: 9 mg Meropenem (Merrem) Confirm Administered Dose 500 mg .ROUTE .STK-MED ONE Stop: 03/18/18 19:40 Last Admin: 03/18/18 20:19 Dose: Not Given Meropenem (Merrem) Confirm Administered Dose 500 mg .ROUTE .STK-MED ONE Stop: 04/07/18 14:38 Last Admin: 04/07/18 16:00 Dose: 500 mg Meropenem (Merrem) Confirm Administered Dose 500 mg .ROUTE .STK-MED ONE Stop: 04/07/18 15:08 Last Admin: 04/07/18 16:05 Dose: 500 mg Methylprednisolone Sodium Succinate (Solu-Medrol) 125 mg IVPUSH ONETIME ONE Stop: 04/17/18 05:49 Last Admin: 04/17/18 06:02 Dose: 125 mg Metoclopramide HCl (Reglan) 5 mg IVPUSH TID [facility] Last Admin: 04/24/18 08:19 Dose: 5 mg Midazolam HCl (Versed 1 Mg/Ml) Confirm Administered Dose 2 mg .ROUTE .STK-MED ONE Stop: 04/02/18 12:59 Morphine Sulfate (Morphine) 4 mg IVPUSH Q2H PRN PRN Reason: Pain Last Admin: 03/29/18 07:34 Dose: 4 mg Morphine Sulfate (Morphine Ship Pilot Dispatcher 150 Mg In 30 Ml) 0 mg IV ASDIRECTED PRN; Protocol PRN Reason: Pain Last Admin: 04/07/18 10:00 Dose: 150 mg Morphine Sulfate (Morphine Ship Pilot Dispatcher 150 Mg In 30 Ml) 0 mg IV ASDIRECTED PRN; Protocol PRN Reason: Pain Naloxone HCl (Narcan) 0.1 mg IV ASDIRECTED PRN PRN Reason: decreased respiratory rate Neostigmine Methylsulfate (Neostigmine) Confirm Administered Dose 5 mg .ROUTE .STK-MED ONE Stop: 03/18/18 19:48 Neostigmine Methylsulfate (Neostigmine) Confirm Administered Dose 5 mg .ROUTE .STK-MED ONE Stop: 04/07/18 10:56 Non-Formulary Medication (Total Parenteral Nutrition, Central) 1,000 ml .XX .Continue Order [facility]; Protocol Stop: 03/24/18 11:31 Non-Formulary Medication (Total Parenteral Nutrition, Central) 1,000 ml .XX .Continue Order [facility]; Protocol Non-Formulary Medication (Total Parenteral Nutrition, Central) 1,000 ml .XX .Continue Order [facility]; Protocol Non-Formulary Medication (Total Parenteral Nutrition, Central) 1,000 ml .XX .Continue Order [facility]; Protocol Stop: 03/28/18 12:00 Non-Formulary Medication (Total Parenteral Nutrition, Central) 1,000 ml .XX .Continue Order [facility] Stop: 04/08/18 08:01 Non-Formulary Medication (Total Parenteral Nutrition, Central) 1,000 ml .XX .Continue Order [facility] Stop: 04/09/18 10:00 Non-Formulary Medication (Total Parenteral Nutrition, Central) 1,000 ml .XX .Continue Order [facility] Stop: 04/10/18 10:00 Non-Formulary Medication (Total Parenteral Nutrition, Central) 1,000 ml .XX .Continue Order [facility] Stop: 04/11/18 10:00 Non-Formulary Medication (Total Parenteral Nutrition, Central) 1,000 ml .XX .Continue Order [facility] Stop: 04/12/18 12:00 Non-Formulary Medication (Total Parenteral Nutrition, Central) 1,000 ml .XX .Continue Order [facility] Stop: 04/13/18 12:00 Non-Formulary Medication (Total Parenteral Nutrition, Central) 1,000 ml .XX .Continue Order [facility] Stop: 04/15/18 07:46 Non-Formulary Medication (Total Parenteral Nutrition, Central) 1,000 ml .XX .Continue Order [facility] Stop: 04/16/18 10:00 Non-Formulary Medication (Total Parenteral Nutrition, Central) 1,000 ml .XX .Continue Order [facility] Stop: 04/17/18 12:00 Non-Formulary Medication (Total Parenteral Nutrition, Central) 1,000 ml .XX .Continue Order [facility] Stop: 04/18/18 07:01 Non-Formulary Medication (Total Parenteral Nutrition, Central) 1,000 ml .XX .Continue Order [facility] Stop: 04/19/18 08:01 Non-Formulary Medication (Total Parenteral Nutrition, Central) 1,000 ml .XX .Continue Order [facility] Stop: 04/20/18 12:00 Non-Formulary Medication (Total Parenteral Nutrition, Central) 1,000 ml .XX .Continue Order [facility] Stop: 04/21/18 10:00 Non-Formulary Medication (Total Parenteral Nutrition, Central) 1,000 ml .XX .Continue Order [facility] Stop: 04/22/18 12:00 Non-Formulary Medication (Total Parenteral Nutrition, Central) 1,000 ml .XX .Continue Order [facility] Stop: 04/23/18 12:00 Non-Formulary Medication (Total Parenteral Nutrition, Central) 1,000 ml .XX .Continue Order [facility] Stop: 04/24/18 07:31 Non-Formulary Medication (Total Parenteral Nutrition, Central) 1,000 ml .XX .Continue Order [facility] Stop: 04/25/18 09:00 Non-Formulary Medication (Total Parenteral Nutrition, Central) 1,000 ml .XX .Continue Order [facility] Stop: 04/27/18 10:00 Nystatin (Mycostatin) 5 ml PO QID [facility] Last Admin: 04/04/18 15:25 Dose: 5 ml Ondansetron HCl (Zofran) 4 mg IVPUSH ONETIME ONE Stop: 03/18/18 18:18 Last Admin: 03/18/18 18:27 Dose: 4 mg Ondansetron HCl (Zofran) Confirm Administered Dose 4 mg .ROUTE .STK-MED ONE Stop: 03/18/18 19:48 Ondansetron HCl (Zofran) Confirm Administered Dose 4 mg .ROUTE .STK-MED ONE Stop: 04/07/18 10:56 Oxycodone HCl (Oxycodone) 5 mg PO Q4H PRN PRN Reason: Pain (moderate 4-6) Last Admin: 04/06/18 05:19 Dose: 5 mg Pantoprazole Sodium (Protonix Iv) 40 mg IVPUSH DAILY [facility] Last Admin: 03/28/18 08:34 Dose: 40 mg Pantoprazole Sodium (Protonix) 40 mg PO ACBREAKFAST [facility] Last Admin: 04/07/18 08:10 Dose: 40 mg Pantoprazole Sodium (Protonix Iv) 40 mg IV Q24H [facility] Last Admin: 04/23/18 05:05 Dose: 40 mg Phenylephrine HCl (Isaías-Synephrine) Confirm Administered Dose 10 mg .ROUTE .STK- MED ONE Stop: 03/18/18 20:05 Potassium Chloride (Klor-Con M20) 40 meq PO ONETIME ONE Stop: 04/03/18 13:16 Last Admin: 04/03/18 14:33 Dose: 40 meq Potassium Chloride (Klor-Con M20) 40 meq PO ONETIME ONE Stop: 04/03/18 17:01 Last Admin: 04/03/18 20:55 Dose: 40 meq Potassium Chloride (Klor-Con M20) 40 meq PO ONETIME ONE Stop: 04/04/18 09:01 Last Admin: 04/04/18 09:34 Dose: 40 meq Potassium Chloride (Klor-Con M20) 40 meq PO ONETIME ONE Stop: 04/04/18 17:01 Last Admin: 04/04/18 17:08 Dose: 40 meq Potassium Chloride (Klor-Con M20) 40 meq PO ONETIME ONE Stop: 04/05/18 09:01 Last Admin: 04/05/18 10:14 Dose: 40 meq Potassium Chloride (Klor-Con M20) 40 meq PO ONETIME ONE Stop: 04/05/18 17:01 Last Admin: 04/05/18 18:00 Dose: 40 meq Potassium Chloride (Klor-Con M20) 40 meq PO ONETIME ONE Stop: 04/13/18 08:31 Last Admin: 04/13/18 08:42 Dose: 40 meq Potassium Chloride (Klor-Con M20) 40 meq PO ONETIME ONE Stop: 04/13/18 13:01 Last Admin: 04/13/18 12:44 Dose: 40 meq Potassium Chloride (Klor-Con M20) 40 meq PO ONETIME ONE Stop: 04/13/18 17:01 Last Admin: 04/13/18 16:57 Dose: 40 meq Potassium Chloride (Klor-Con M20) 40 meq PO ONETIME ONE Stop: 04/15/18 14:31 Last Admin: 04/15/18 15:16 Dose: 40 meq Prednisone (Prednisone) 20 mg PO WITHBREAKFAST [facility] Last Admin: 03/30/18 08:59 Dose: 20 mg Propofol (Diprivan 20 Ml) Confirm Administered Dose 200 mg .ROUTE .STK-MED ONE Stop: 03/18/18 19:48 Propofol (Diprivan 20 Ml) Confirm Administered Dose 200 mg .ROUTE .STK-MED ONE Stop: 04/02/18 12:59 Propofol (Diprivan 20 Ml) Confirm Administered Dose 200 mg .ROUTE .STK-MED ONE Stop: 04/07/18 10:56 Propofol (Diprivan 20 Ml) Confirm Administered Dose 200 mg .ROUTE .STK-MED ONE Stop: 04/21/18 12:05 Rocuronium Holden (Zemuron) Confirm Administered Dose 50 mg .ROUTE .STK-MED ONE Stop: 03/18/18 19:48 Rocuronium Holden (Zemuron) Confirm Administered Dose 50 mg .ROUTE .STK-MED ONE Stop: 04/07/18 10:56 Succinylcholine Chloride (Quelicin) Confirm Administered Dose 200 mg .ROUTE .STK -MED ONE Stop: 03/18/18 19:48 Vancomycin HCl (Vancomycin) 1 gm IV .PHARMACY TO DOSE [facility] Stop: 03/21/18 16:00 Vancomycin HCl (Vancomycin) 1 gm IV .PHARMACY TO DOSE [facility] Stop: 04/16/18 14:00 - Exam Quality Assessment: Supplemental Oxygen, Central Line/PICC, DVT Prophylaxis General: Alert, Oriented, Cooperative, No Acute Distress Lungs: Clear to Auscultation, Normal Respiratory Effort, Decreased Breath Sounds Cardiovascular: Regular Rate, Regular Rhythm, No Murmurs GI/Abdominal Exam: Soft, No Organomegaly, Tender. No: Distended, Guarding, Rigid, Rebound Extremities: Non-Tender, No Pedal Edema - Problem List Review Problem List Initiated/Reviewed/Updated: Yes - My Orders Last 24 Hours: My Active Orders 04/28/18 12:00 Linezolid [Zyvox] 600 mg PO Q12H 04/28/18 21:00 Ciprofloxacin [Ciprofloxacin HCl] 500 mg PO BID - Plan Plan:: ASSESSMENT AND PLAN WOUND DEHISCENCE WITH UNDERLYING ABSCESS - status post exploratory laparotomy . Wound healing well and wound VAC has been discontinued. Still has an ileus but otherwise seems to be doing fairly well. -Transitioned to Latham catheter 04/21 -Surgical follow-up per surgery team OSTEOMYELITIS RIGHT FIRST TOE - Unable to obtain MRI. Arterial Doppler study showed evidence of significant peripheral arterial disease in the right leg. No pain or swelling at this time. -follow-up with interventional radiology/Cardiology while in acute rehabilitation -Anticipate 4-6 weeks of antibiotics -Will transitioned to oral antibiotic therapy with linezolid and ciprofloxacin today ANEMIA OF ACUTE ILLNESS - patient has required frequent blood draws and has been critically ill and hospitalized for some time. Hemoglobin has been stable since transfusion with no evidence for bleeding. -Transfuse if less than 8 SIGMOID COLON PERFORATION RESULTING IN ACUTE ABDOMEN AND SEPTIC SHOCK - postop course complicated by wound dehiscence as above. He is receiving nutritional support via TPN. Persistent difficulty with very prolonged ileus. Ileus does seem to be improving over the past several days, tolerating oral intake with output into his colostomy -Continue TPN, rate decreased today per Dr. Linn -Continue metoclopramide -Post operative care per surgical team -Pain control -Saline lock IV ACUTE HYPOXIC RESPIRATORY FAILURE - respiratory status stable. Still on oxygen. -Now on oral furosemide, daily intake and output have been stable with current therapy -Coughing, deep breathing and suctioning as able -Reassess volume status daily COPD - [id number] smoking history but no evidence for exacerbation at this time. -Nebulized albuterol as needed HISTORY OF LUNG AND PROSTATE CARCINOMA - lung cancer felt to be stable, had been receiving treatment for management of prostate carcinoma prior to admission MAINTENANCE ISSUES -DVT prophylaxis; SCUDs -GI prophylaxis; Protonix 40 mg daily -Sorto catheter; has been successfully removed -Nutrition; clear liquids DISPOSITION - anticipate discharge to inpatient rehabilitation
[2018-04-28] MEDS: Linezolid 600 MG Tab PO SCH ×2 (13:01→20:52)
--- NOTE | 2018-04-28 13:29 | PN ---
DATE OF SERVICE: 04/27/2018 SUBJECTIVE: Kodak has been tolerating a full liquid diet well. He did have a temperature max of 101.3, did return to 99, which he has been running for about 48 hours. Oral intake was 1330. Urine output 5125. Gastrostomy tube has been clamped. Ostomy output 120. Oral intake 50, 0, and 0 recorded. Remainder of review of systems negative for any pertinent positives and negatives. Labs were reviewed. Magnesium was low at 1.5. OBJECTIVE: GENERAL: Kodak Silva is a 77-year-old male. He is alert and orientated. VITAL SIGNS: TPR is 98.2, 87, 18, blood pressure 132/82. HEENT: Negative. NECK: Supple. HEART: Regular rate and rhythm. LUNGS: Clear. ABDOMEN: Dressing is dry and intact. Gastrostomy tube in place and it is clamped. EXTREMITIES: Without peripheral edema. ASSESSMENT: 1. Placement of Latham catheter on 04/21/2018 by Fredi Linn MD. 2. Allergic reaction to vancomycin. 3. Osteomyelitis, right great toe. 4. Insertion of subclavian triple lumen, exploratory laparotomy, drainage of intraabdominal abscess and small bowel resection, small bowel stricturoplasty, placement of Vicryl mesh for closure of fascial dehiscence and evisceration of intraabdominal abscess and focal small bowel stricture. Surgeon, Fredi Linn MD. Date of surgery, 04/07/2018. 5. Percutaneous endoscopy and gastrostomy tube placement for malnutrition with inadequate oral intake. Date of surgery, 04/02/2018. Surgeon, Fredi Linn MD. 6. Exploratory laparotomy, peritoneal lavage, sigmoid resection, Cristina pouch, colostomy for acute abdomen and perforated viscus, and sepsis. Date of surgery, 03/18/2018. Surgeon, Fredi Linn MD. PLAN: 1. Magnesium 2 g IV q.6 hours x72 hours. 2. Decrease TPN to 40 mL per hour. 3. Check CBC, CMP, BNP in a.m. 4. Lasix 20 mg p.o. daily. 5. Consult Discharge Planning to discuss rehab versus referral to a vascular surgeon. From a surgical standpoint of view, he should be ready to go home on , 04/30/2018. Continue working on lungs. We will evaluate p.r.n. or in a.m. [facility] /[id number]
--- NOTE | 2018-04-28 18:38 | PN ---
DATE OF SERVICE: 04/28/2018 The patient has been afebrile with stable vital signs. No major problems have been noted. Oral intake is only moderate amount. We will move him up to a mechanical soft diet today and add some Ensure and Boost between meals. Otherwise, continue the TPN. This was reviewed by the [facility] people yesterday, and they will contact us today whether or not they are willing to accept the patient. Fredi Linn MD /[id number]
[2018-04-28] MEDS: Ciprofloxacin 500 MG Tab PO SCH (20:53)
[2018-04-28] MEDS: LORazepam 2 MG/ML SDV IVPUSH PRN (23:12)
[2018-04-29] MEDS: Magnesium Sulfate/Water 2 GM in Premix Bag 1 BAG IV SCH (04:16)
[2018-04-29] MEDS: Nystatin Susp 100,000 Unit/ML 5 ML UD Cup PO SCH (05:28)
[2018-04-29] MEDS: Albuterol/Ipratropium 3.0-0.5 MG/3 ML Neb Soln NEB SCH (06:30)
[2018-04-29] MEDS ORDERED: Furosemide 20 MG/2 ML VIAL IVPUSH ONE (06:48)
[2018-04-29] MEDS: Pantoprazole 40 MG Tab.CR PO SCH (07:52)
[2018-04-29] MEDS: Ciprofloxacin 500 MG Tab PO SCH (07:52)
[2018-04-29 07:59] VITALS: BP 114/62
[2018-04-29] MEDS ORDERED: Potassium Chloride 20 MEQ Tab.ER PO SCH (09:00)
[2018-04-29] MEDS ORDERED: Furosemide 40 MG Tab PO SCH (09:00)
[2018-04-29] MEDS: 1: AA 5%/Calcium/D15W/Lytes 1,000 ML with MVI, Adult with Vitamin K 10 ML, Chromium/Copp IV SCH ×3 (09:17)
[2018-04-29] MEDS: Lactobacillus Rhamnosus GG (Probiotic) Cap PO SCH (09:18)
[2018-04-29] MEDS: Bisacodyl 10 MG Supp RECTAL SCH (09:18)
[2018-04-29] MEDS: Linezolid 600 MG Tab PO SCH (09:19)
[2018-04-29] MEDS: Metoclopramide 10 MG/2 ML SDV IVPUSH SCH (09:20)
--- NOTE | 2018-04-29 10:00 | DISCH ---
ADMISSION DIAGNOSES: 1. Severe abdominal pain. 2. History of lung and prostate cancer. 3. Nicotine addiction. DISCHARGE DIAGNOSES: 1. Exploratory laparotomy, peritoneal lavage, sigmoid resection with end colostomy and Cristina's pouch for acute abdomen with perforated viscus. 2. Sepsis. SURGEON: Espinoza Adams MD. HISTORY: Kodak Silva is a 77-year-old male who had some vague abdominal discomfort about a week ago, then developed severe abdominal pain and presented to the emergency department after preoperative evaluation and discussion of possible risks and possible complications, he wished to proceed with surgical procedure. 1. After the above surgery, he did go to ICU and developed septic shock, which was resolved. 2. Acute hypoxic respiratory failure secondary to septic shock, colon perforation from recent surgery and underlying COPD. 3. Steroid induced hyperglycemia, which resolved. COPD, 90 pack-year history of smoking with exacerbation at time of surgery and acute kidney injury, resolved. Renal function went back to baseline and his history of lung and prostate carcinoma was felt to be stable. 4. Right great toe osteomyelitis with diffuse atherosclerotic disease, suspected hemodynamically significant disease in the mid superficial femoral artery with monophasic flow. Allergic reaction to vancomycin. 5. TPN therapy for malnutrition, had a swallowing test which showed a decreased ability to swallow. 6. Right percutaneous endoscopy, gastrostomy tube placement for malnutrition with inadequate oral intake. The date of surgery was 04/02/2018. Surgeon, Fredi Linn MD. PROCEDURE: 1. On 04/07/2018, insertion of left subclavian vein triple-lumen catheter. 2. Exploratory laparotomy with: a. Drainage of intraabdominal abscess. b. Small-bowel resection. c. Small bowel stricturoplasty. d. Placement of Vicryl mesh to displace pelvic and abdominal wall from underlying viscera and limit chances of evisceration should recurrent dehiscence occur. e. Closure of fascial dehiscence. This is done for: I. Indication for central vein access. II.Facial dehiscence with evisceration. III. Intraabdominal abscess. IV.Focal area of small bowel stricture. V. Focal area of small bowel evisceration. Surgeon, Fredi Linn MD. This 77-year-old male who developed a broad based facial dehiscence with significant evisceration after preoperative evaluation and discussion of possible risks and possible complications he wished to proceed with surgical procedure. He had no operative complications following this surgery. Kodak Adkins was first hospitalized on 03/18/2018. He had the above surgeries. He is stable and is able to be discharged to rehab. He has been getting physical therapy, TPN therapy at 42 mL/h. and lipids every other day. Labs have been appropriately monitored. He will be discharged on two antibiotics. A wound VAC had been placed on his open facial dehiscence postoperatively and this has since been removed and the incision is dressed with some 4x4s and ABDs. Colostomy intact. NG tube gastrostomy tube has been plugged. He has received 4 units of packed red blood cells throughout his hospitalizations for low hemoglobin. PHYSICAL EXAMINATION: GENERAL: Kodak Silva is a 77-year-old male. VITAL SIGNS: Height is 5 feet, 6.93 inches. Weight is 149 pounds 6.4 ounces. TPR 98.8, 82, 16, blood pressure is 114/62. HEENT: Negative. NECK: Supple. HEART: Regular rate and rhythm. LUNGS: Clear. He does have rhonchi usually in the morning after his dose of Lasix. Lungs do clear. ABDOMEN: Gastrostomy tube clamped. There is no skin breakdown around the gastrostomy tube. Colostomy intact. Open abdominal incision is healing well. 4x4s were placed over the open incision and ABD, secured with small amounts of tape. EXTREMITIES: Pedal pulses decreased in the right. His right great toe is less discolored and less swollen and less painful. There is no peripheral edema. DISPOSITION: Discharged to [facility]. CONDITION: Stable. HOME MEDICATIONS: 1. Albuterol nebulizer solution 2.5/3 mL q.4 hours p.r.n. shortness of breath. 2. Dulcolax 10 mg tabs per ostomy b.i.d. 3. Cipro 500 mg p.o. b.i.d. 4. Benadryl 25 mg IV push q.4 hours p.r.n. itching. 5. Lasix 40 mg p.o. daily. 6. Heparin lock flush as needed or as directed for subclavian triple-lumen catheter. 7. Hydrocortisone 1% cream p.r.n. itching. 8. Hydroxyzine 50 mg IM q.6 hours. 9. Culturelle one cap oral twice daily. 10.Zyvox 600 mg oral twice daily. 11.Ativan 0.5 mg IV q.4 hours p.r.n. anxiety. 12.Reglan 10 mg IV q.8 hours p.r.n. additional nausea. 13.Morphine 10 mg/0.5 mL oral syringe, 5 mg orally every 4 hours p.r.n. pain. 14.Nystatin 2 mL oral 4 times daily for oral thrush. 15.Zofran 4 mg IV q.6 hours p.r.n. nausea. 16.Protonix 40 mg oral daily. 17.Potassium Klor-Con 20 mEq oral daily. DIET: GI soft low residue diet. Drink 8 to 10 glasses of water a day if tolerated. ACTIVITY: Per rehabilitation physical therapy. Shower/bathing; may shower. No tub bathing or swimming for 6 weeks until incision is healed. INSTRUCTIONS: Keep site clean and dry. Keep gastrostomy tube clamped. Change dressing twice a day and open incision, use 4x4, dry gauze pieces over open abdominal incision and cover with ABD and secure with tape. See separate orders sheets for TPN therapy and lipid therapy.
== END 2018-04-29 10:14 | DRG 853 ==
LOC: JP.ED 17:04 → JP.SDS 19:58 → JP.ICU 22:18 → JP.MS 03-29 11:30
PROVIDERS: ADMIT Surgery; ATTEND Surgery
PROC: 0D1M0Z4 Bypass Descending Colon to Cutaneous, Open Approach (ICD-10-PCS; principal; 2018-03-18)
PROC: 3E1M38Z Irrigation of Peritoneal Cavity using Irrigating Substance, Percutaneous Approach (ICD-10-PCS; 2018-03-18)
PROC: 5A1955Z Respiratory Ventilation, Greater than 96 Consecutive Hours (ICD-10-PCS; 2018-03-18)
PROC: 0DBP0ZZ Excision of Rectum, Open Approach (ICD-10-PCS; 2018-03-18)
PROC: 0DBN0ZZ Excision of Sigmoid Colon, Open Approach (ICD-10-PCS; 2018-03-18)
PROC: 02HV33Z Insertion of Infusion Device into Superior Vena Cava, Percutaneous Approach (ICD-10-PCS; 2018-03-19)
PROC: 0DH63UZ Insertion of Feeding Device into Stomach, Percutaneous Approach (ICD-10-PCS; 2018-04-02)
PROC: 0DBB0ZX Excision of Ileum, Open Approach, Diagnostic (ICD-10-PCS; 2018-04-07)
PROC: 0DN84ZZ Release Small Intestine, Percutaneous Endoscopic Approach (ICD-10-PCS; 2018-04-07)
PROC: 0WQF0ZZ Repair Abdominal Wall, Open Approach (ICD-10-PCS; 2018-04-07)
PROC: 05H633Z Insertion of Infusion Device into Left Subclavian Vein, Percutaneous Approach (ICD-10-PCS; 2018-04-07)
PROC: 3E0M05Z Introduction of Adhesion Barrier into Peritoneal Cavity, Open Approach (ICD-10-PCS; 2018-04-07)
PROC: 30233N1 Transfusion of Nonautologous Red Blood Cells into Peripheral Vein, Percutaneous Approach (ICD-10-PCS; 2018-04-09)
PROC: 30233N1 Transfusion of Nonautologous Red Blood Cells into Peripheral Vein, Percutaneous Approach (ICD-10-PCS; 2018-04-10)
PROC: 05JY0ZZ Inspection of Upper Vein, Open Approach (ICD-10-PCS; 2018-04-18)
PROC: 02H633Z Insertion of Infusion Device into Right Atrium, Percutaneous Approach (ICD-10-PCS; 2018-04-19)
PROC: B214YZZ Fluoroscopy of Right Heart using Other Contrast (ICD-10-PCS; 2018-04-19)
PROC: 30233N1 Transfusion of Nonautologous Red Blood Cells into Peripheral Vein, Percutaneous Approach (ICD-10-PCS; 2018-04-21)
PROC: 30233N1 Transfusion of Nonautologous Red Blood Cells into Peripheral Vein, Percutaneous Approach (ICD-10-PCS; 2018-04-22)
DX: A41.9 Sepsis, unspecified organism (principal); K63.1 Perforation of intestine (nontraumatic); R65.21 Severe sepsis with septic shock; J96.01 Acute respiratory failure with hypoxia; K65.1 Peritoneal abscess; N17.9 Acute kidney failure, unspecified; C79.9 Secondary malignant neoplasm of unspecified site; E46 Unspecified protein-calorie malnutrition; T81.30XA Disruption of wound, unspecified, initial encounter; K56.699 Other intestinal obstruction unspecified as to partial versus complete obstruction; M86.9 Osteomyelitis, unspecified; K56.7 Ileus, unspecified; D64.89 Other specified anemias; J44.9 Chronic obstructive pulmonary disease, unspecified; F17.210 Nicotine dependence, cigarettes, uncomplicated; Z85.118 Personal history of other malignant neoplasm of bronchus and lung; C61 Malignant neoplasm of prostate; N18.9 Chronic kidney disease, unspecified; E86.0 Dehydration; Z68.26 Body mass index [BMI] 26.0-26.9, adult; I70.201 Unspecified atherosclerosis of native arteries of extremities, right leg; E87.6 Hypokalemia; L29.9 Pruritus, unspecified; T36.8X5A Adverse effect of other systemic antibiotics, initial encounter; Y92.230 Patient room in hospital as the place of occurrence of the external cause; E09.65 Drug or chemical induced diabetes mellitus with hyperglycemia; Z91.030 Bee allergy status; Z79.899 Other long term (current) drug therapy
CPT/HCPCS: 31500; 36415; 44140; 44320; 49084; 71045 ×2; 71250; 74176; 80053; 83605; 83690; 85025; 86140; 87040 ×2; 87070; 87075; 87077 ×4; 87186 ×4; 87205; 88307; 93005; 93010; 96361; 96365; 96368; 96375; 96376; 99285 ×2; C1751; J0171; J0330; J1100; J1170 ×2; J1644; J2185 ×2; J2370; J2405 ×2; J2704; J3010; J7030 ×2; J7040; J7050 ×3; J7120 ×2; S0073; 36430; 71046; 73630-RT; 74177; 80048; 80202; 81001; 82330; 82803; 82962; 83735; 83880; 84100; 84132; 85027; 85651; 86850; 86900; 86901; 86920; 86922; 88304; 92526-GN; 92610-GN; 93926-RT; 94002; 94003; 94640; 94762; 97110-GP; 97116-GP; 97140-GP; 97163-GP; 97165-GO; 97530-GP; 97605; A9270-GY; C1781; C9113; J0131; J0610; J0690; J0744; J1200; J1642; J1720; J1815; J1940; J2001; J2020; J2060; J2250; J2270; J2710; J2765; J2795; J2930; J3370; J3410; J3475; J3480; J3490; J7042; J7060; J7620-GY; P9016; P9047; Q9967

== ENCOUNTER 2018-05-29 10:11 | Observation (INO) | payer MEDICARE ==
[2018-05-29] MEDS ORDERED: Ondansetron 4 MG/2 ML SDV IVPUSH ONE (11:02)
--- NOTE | 2018-05-29 11:04 | EDM.PDOC ---
ED HPI GENERAL MEDICAL PROBLEM - General Chief Complaint: Gastrointestinal Problem Stated Complaint: VOMITING, STOMACH PAIN, PALE, WEAK Time Seen by Provider: 05/29/18 10:56 Source of Information: Reports: Patient History Limitations: Reports: No Limitations - History of Present Illness INITIAL COMMENTS - FREE TEXT/NARRATIVE: pt has been vomiting alot the last 2-3 days. He has not been keeping much down. He has not had a fever. He has continued to have pain in the abdoman. Onset: Other (pt has been vomiting for 2-3 days. ) Duration: Hour(s): Location: Reports: Abdomen Associated Symptoms: Reports: Nausea/Vomiting, Weakness - Related Data Allergies Allergy/AdvReac Type Severity Reaction Status Date / Time vancomycin Allergy Itching Verified 05/29/18 10:31 venom-honey bee Allergy Swelling Verified 05/29/18 10:31 [bee venom (honey bee)] Home Meds: Home Meds Bisacodyl [Laxative] 5 mg PO DAILY 03/18/18 [History] Calc/D3/Mag/Zn/Patient Accounts Clerk/Chad/Gonzales [Calcium 600 MG Plus Vit D] 1 tab PO DAILY [History] Bisacodyl [Dulcolax] 10 mg RECTAL BID supp 04/29/18 [Rx] Ciprofloxacin [Ciprofloxacin HCl] 500 mg PO BIDAC tablet 04/29/18 [Rx] Linezolid [Zyvox] 600 mg PO BID tablet 04/29/18 [Rx] Acetaminophen 650 mg PO Q4HR PRN 05/29/18 [History] Furosemide [Lasix] 20 mg PO DAILY 05/29/18 [History] Methylcellulose [Citrucel] 500 mg PO DAILY 05/29/18 [History] Ondansetron [Zofran ODT] 4 mg PO Q4HR PRN 05/29/18 [History] Pantoprazole Sodium [Protonix] 40 mg PO DAILY 05/29/18 [History] Umeclidinium Brm/Vilanterol Tr [Anoro Ellipta 62.5-25 MCG] 1 puff IH DAILY 05/29 [History] Past Medical History Cardiovascular History: Reports: None Respiratory History: Reports: SOB Gastrointestinal History: Reports: Other (See Below) Genitourinary History: Reports: Prostate Disorder Hematologic History: Reports: Blood Transfusion(s) Oncologic (Cancer) History: Reports: Lung, Prostate - Infectious Disease History Infectious Disease History: Reports: Mumps - Past Surgical History Respiratory Surgical History: Reports: Lung Biopsies GI Surgical History: Reports: Colostomy Musculoskeletal Surgical History: Reports: Other (See Below) Social & Family History - Tobacco Use Smoking Status *Q: Former Smoker Used Tobacco, but Quit: Yes Month/Year Tobacco Last Used: 02/2018 - Caffeine Use Caffeine Use: Reports: Soda - Recreational Drug Use Recreational Drug Use: No ED ROS GENERAL - Review of Systems Review Of Systems: See Below Constitutional: Reports: Weakness, Fatigue, Other (vomiting) HEENT: Reports: No Symptoms Respiratory: Reports: No Symptoms Cardiovascular: Reports: No Symptoms Endocrine: Reports: No Symptoms GI/Abdominal: Reports: Nausea, Vomiting : Reports: No Symptoms Musculoskeletal: Reports: No Symptoms Skin: Reports: No Symptoms ED EXAM, GI/ABD - Physical Exam Exam: See Below Text/Narrative:: pt arrived with increased abdomanal pain. He is vomiting everything he is taking down. Exam Limited By: No Limitations General Appearance: Alert, Moderate Distress Ears: Normal TMs Nose: Normal Inspection Throat/Mouth: Normal Inspection Head: Atraumatic Neck: Normal Inspection Respiratory/Chest: No Respiratory Distress Cardiovascular: Regular Rate, Rhythm GI/Abdominal Exam: Other (mild tenderness) (Male) Exam: Deferred Rectal (Males) Exam: Deferred Back Exam: Normal Inspection Extremities: Normal Inspection Neurological: Alert, Oriented, Normal Cognition Psychiatric: Flat Affect Course - Vital Signs Last Recorded V/S: Last Vital Signs Temp 35.1 C L 05/29/18 11:08 Pulse 86 05/29/18 11:08 Resp 14 05/29/18 11:08 BP 135/63 05/29/18 11:08 Pulse Ox 96 05/29/18 11:08 - Orders/Labs/Meds Orders: Active Orders 24 hr Category Date Time Status RED BLOOD CELLS LP [BBK] Stat Lab 05/29/18 11:05 Results TYPE AND SCREEN [BBK] Stat Lab 05/29/18 11:05 Results UA W/MICROSCOPIC [URIN] Urgent Lab 05/29/18 10:55 Ordered Sodium Chloride 0.9% [Normal Saline] 1,000 ml Med 05/29/18 11:15 Active IV ASDIRECTED Sodium Chloride 0.9% [Normal Saline] 1,000 ml Med 05/29/18 12:30 Active IV ASDIRECTED Medication Orders Sodium Chloride (Normal Saline) 1,000 mls @ 999 mls/hr IV ASDIRECTED CIARRA Last Admin: 05/29/18 11:10 Dose: 999 mls/hr Sodium Chloride (Normal Saline) 1,000 mls @ 999 mls/hr IV ASDIRECTED CIARRA Last Admin: 05/29/18 12:18 Dose: 999 mls/hr Labs: Laboratory Tests 05/29/18 05/29/18 05/29/18 Range/Units 11:05 11:05 11:05 WBC 6.1 (4.5-11.0) K/uL RBC 2.91 L (4.30-5.90) M/uL Hgb 8.4 L (12.0-15.0) g/dL Hct 26.1 L (40.0-54.0) % MCV 90 (80-98) fL MCH 29 (27-31) pg MCHC 32 (32-36) % Plt Count 120 L (150-400) K/uL Neut % (Auto) 50 (36-66) % Lymph % (Auto) 44 (24-44) % [place] % (Auto) 4 (2-6) % Eos % (Auto) 2 (2-4) % Baso % (Auto) 1 (0-1) % Sodium 135 L (140-148) mmol/L Potassium 4.5 (3.6-5.2) mmol/L Chloride 100 (100-108) mmol/L Carbon Dioxide 23 (21-32) mmol/L Anion Gap 16.5 H (5.0-14.0) mmol/L BUN 35 H (7-18) mg/dL Creatinine 1.4 H D (0.8-1.3) mg/dL Est Cr Clr Drug Dosing 39.46 mL/min Estimated GFR (MDRD) 49 L (>60) Glucose 107 H (74-106) mg/dL Calcium 9.2 (8.5-10.1) mg/dL Total Bilirubin 0.6 (0.2-1.0) mg/dL AST 25 (15-37) U/L ALT 20 (12-78) U/L Alkaline Phosphatase 75 (46-116) U/L C-Reactive Protein 0.30 (0.0-0.3) mg/dL Total Protein 5.8 L (6.4-8.2) g/dL Albumin 2.8 L (3.4-5.0) g/dL Globulin 3.0 (2.3-3.5) g/dL Albumin/Globulin Ratio 0.9 L (1.2-2.2) Blood Type O POSITIVE Gel Antibody Screen Negative Crossmatch See Detail Meds: Medications Generic Name Dose Route Start Last Admin Trade Name Freq PRN Reason Stop Dose Admin Sodium Chloride 1,000 mls @ 999 mls/hr 05/29/18 11:15 05/29/18 11:10 Normal Saline IV 999 mls/hr ASDIRECTED CIARRA Administration Sodium Chloride 1,000 mls @ 999 mls/hr 05/29/18 12:30 05/29/18 12:18 Normal Saline IV 999 mls/hr ASDIRECTED CIARRA Administration Discontinued Medications Generic Name Dose Route Start Last Admin Trade Name Freq PRN Reason Stop Dose Admin Ondansetron HCl 4 mg 05/29/18 11:02 05/29/18 11:20 Zofran IVPUSH 05/29/18 11:03 4 mg ONETIME ONE Administration - Re-Assessments/Exams Free Text/Narrative Re-Assessment/Exam: 05/29/18 13:15 pt has a hg of 8.4. He has a creatnine of 2.4. He has a normal wbc. The cat scan of the abdoman did not show obstruction. Departure - Departure Time of Disposition: 13:10 Disposition: Admitted As Inpatient 68 Condition: Fair Clinical Impression: Dehydration, Anemia, Colostomy in place - Discharge Information Referrals: Emil Randall BUMPER AND PAINTER [Primary Care Provider] - Forms: ED Department Discharge Care Plan Goals: admit to Dr Agosto - My Orders Last 24 Hours: My Active Orders 05/29/18 10:55 UA W/MICROSCOPIC [URIN] Urgent 05/29/18 11:05 RED BLOOD CELLS LP [BBK] Stat TYPE AND SCREEN [BBK] Stat 05/29/18 11:15 Sodium Chloride 0.9% [Normal Saline] 1,000 ml IV ASDIRECTED 05/29/18 12:30 Sodium Chloride 0.9% [Normal Saline] 1,000 ml IV ASDIRECTED - Assessment/Plan Last 24 Hours: My Active Orders 05/29/18 10:55 UA W/MICROSCOPIC [URIN] Urgent 05/29/18 11:05 RED BLOOD CELLS LP [BBK] Stat TYPE AND SCREEN [BBK] Stat 05/29/18 11:15 Sodium Chloride 0.9% [Normal Saline] 1,000 ml IV ASDIRECTED 05/29/18 12:30 Sodium Chloride 0.9% [Normal Saline] 1,000 ml IV ASDIRECTED
[2018-05-29] MEDS ORDERED: Sodium Chloride 0.9% 1,000 ML IV SCH ×2 (11:15→12:30)
--- NOTE | 2018-05-29 12:54 | CRLCT ---
INDICATION: Nausea. Abdominal pain. TECHNIQUE: A CT volumetric acquisition was performed of the abdomen and pelvis without intravenous contrast. COMPARISON: CT scan with IV contrast dated 04/19/2018 FINDINGS: As compared to the prior exam dated 04/19/2018 there has been resolution of the left pleural effusion and a decrease in the right pleural effusion. Currently only a trace amount of pleural fluid remains within the lower right thorax. The lung bases are clear. There is a persistent small hiatal hernia. The unenhanced liver and spleen appear normal. There is no evidence of mass or inflammation within the pancreas. Gallbladder and bile ducts are normal size. There are persistent small stones layered within the dependent gallbladder lumen. The patient`s percutaneous gastrostomy tube has been removed. There is induration within the omental fat of the left upper quadrant. This has decreased slightly from the prior CT of 04/19/2018. There is no evidence of extraluminal air or fluid. The left abdominal ileostomy appears intact. The anastomotic cap suture lines within bowel loops of the lower abdomen and pelvis appear intact with no evidence of localized inflammation within the adjacent fat. The adrenal glands have normal morphology. The right kidney appears normal. There is stable parenchymal atrophy within the left kidney. There is diffuse atherosclerotic calcification and ectasia of the abdominal aorta. There is stable dilatation of the lower abdominal aorta proximal to the iliac bifurcation. This segment measures 3 cm in diameter and appears unchanged. Prostate gland and partially filled urinary bladder appear normal. IMPRESSION: Residual induration within the greater omental fat within the left upper quadrant. No evidence of bowel obstruction or perforation. Dictated by Juan Cool MD @ 05/29/2018 12:52:33 PM Please note that all CT scans at this facility use dose modulation, iterative reconstruction, and/or weight-based dosing when appropriate to reduce radiation dose to as low as reasonably achievable. Dictated by: Juan Cool MD @ 05/29/2018 12:52:47 (Electronically Signed)
--- NOTE | 2018-05-29 13:26 | PCM.HP ---
H&P History of Present Illness - General Date of Service: 05/29/18 Admit Problem/Dx: Admission Diagnosis/Problem Admission Diagnosis/Problem Nausea and vomiting Source of Information: Patient, Family, Old Records, Provider, RN Notes Reviewed History Limitations: Reports: No Limitations - History of Present Illness Initial Comments - Free Text/Narative: Mr. Silva is a 78-year-old gentleman who is admitted through the emergency department to observation status for further evaluation and management of recent nausea and vomiting. He was hospitalized at this facility for a prolonged period of time following a spontaneous perforation of his colon. He initially experienced severe sepsis and respiratory failure requiring mechanical ventilation and pressors. He slowly improved but then developed abdominal abscess associated with wound dehiscence. After prolonged hospitalization he was discharged to acute inpatient rehabilitation. He's been home now about 3 weeks and had been slowly improving until last 2-3 days when he is experienced increased nausea and vomiting. During that period of time he has become progressively more weak. On evaluation in the emergency department white blood cell count and CRP are within normal range. CT scan of the abdomen and pelvis shows no obvious area of underlying infection or obstruction. - Related Data Allergies/Adverse Reactions: Allergies Allergy/AdvReac Type Severity Reaction Status Date / Time vancomycin Allergy Itching Verified 05/29/18 10:31 venom-honey bee Allergy Swelling Verified 05/29/18 10:31 [bee venom (honey bee)] Home Medications: Home Meds Bisacodyl [Laxative] 5 mg PO DAILY 03/18/18 [History] Calc/D3/Mag/Zn/Elevator Examiner And Adjuster/Chad/Beecher [Calcium 600 MG Plus Vit D] 1 tab PO DAILY [History] Bisacodyl [Dulcolax] 10 mg RECTAL BID supp 04/29/18 [Rx] Ciprofloxacin [Ciprofloxacin HCl] 500 mg PO BIDAC tablet 04/29/18 [Rx] Linezolid [Zyvox] 600 mg PO BID tablet 04/29/18 [Rx] Acetaminophen 650 mg PO Q4HR PRN 05/29/18 [History] Furosemide [Lasix] 20 mg PO DAILY 05/29/18 [History] Methylcellulose [Citrucel] 500 mg PO DAILY 05/29/18 [History] Ondansetron [Zofran ODT] 4 mg PO Q4HR PRN 05/29/18 [History] Pantoprazole Sodium [Protonix] 40 mg PO DAILY 05/29/18 [History] Umeclidinium Brm/Vilanterol Tr [Anoro Ellipta 62.5-25 MCG] 1 puff IH DAILY 05/29 [History] Past Medical History Cardiovascular History: Reports: None Respiratory History: Reports: SOB Gastrointestinal History: Reports: Other (See Below) Genitourinary History: Reports: Prostate Disorder Hematologic History: Reports: Blood Transfusion(s) Oncologic (Cancer) History: Reports: Lung, Prostate - Infectious Disease History Infectious Disease History: Reports: Mumps - Past Surgical History Respiratory Surgical History: Reports: Lung Biopsies GI Surgical History: Reports: Colostomy Musculoskeletal Surgical History: Reports: Other (See Below) Social & Family History - Tobacco Use Smoking Status *Q: Former Smoker Used Tobacco, but Quit: Yes Month/Year Tobacco Last Used: 02/2018 - Caffeine Use Caffeine Use: Reports: Soda - Recreational Drug Use Recreational Drug Use: No H&P Review of Systems - Review of Systems: Review Of Systems: See Below General: Reports: Decreased Appetite. Denies: Fever, Chills, Diaphoresis HEENT: Reports: No Symptoms Pulmonary: Reports: No Symptoms Cardiovascular: Reports: No Symptoms Gastrointestinal: Reports: Abdominal Pain, Constipation, Decreased Appetite, Nausea, Vomiting. Denies: Diarrhea, Difficulty Swallowing, Distension, Hematemesis, Hematochezia, Melena Genitourinary: Reports: No Symptoms Musculoskeletal: Reports: No Symptoms Skin: Reports: No Symptoms Psychiatric: Reports: No Symptoms Neurological: Reports: No Symptoms Hematologic/Lymphatic: Reports: No Symptoms Immunologic: Reports: No Symptoms Exam - Exam Exam: See Below - Vital Signs Vital Signs: Last Vital Signs Temp 95.2 F L 05/29/18 11:08 Pulse 86 05/29/18 11:08 Resp 14 05/29/18 11:08 BP 135/63 05/29/18 11:08 Pulse Ox 96 05/29/18 11:08 Weight: 137 lb - Exam Quality Assessment: DVT Prophylaxis General: Alert, Oriented, Cooperative, Mild Distress HEENT: Conjunctiva Clear, Hearing Intact, Normal Nasal Septum, Posterior Pharynx Clear, Pupils Equal. No: Mucosa Moist & The [place] Neck: Supple, Trachea Midline, +2 Carotid Pulse wo Bruit Lungs: Clear to Auscultation, Normal Respiratory Effort, Decreased Breath Sounds Cardiovascular: Regular Rate, Regular Rhythm, Normal S1, Normal S2. No: Systolic Murmur, Diastolic Murmur GI/Abdominal Exam: Soft, No Organomegaly, Tender. No: Distended, Guarding, Rigid, Rebound Back Exam: Normal Inspection, Full Range of Motion Extremities: Non-Tender, No Pedal Edema Skin: Warm, Dry, Intact Neurological: Cranial Nerves Intact, Strength Equal Bilateral, Normal Speech, Normal Tone, Sensation Intact. No: Focal Deficit Neuro Extensive - Mental Status: Alert, Oriented x3, Normal Mood/Affect, Normal Cognition, Memory Intact - Patient Data Lab Results Last 24 hrs: Laboratory Results - last 24 hr 05/29/18 05/29/18 05/29/18 Range/Units 11:05 11:05 11:05 WBC 6.1 (4.5-11.0) K/uL RBC 2.91 L (4.30-5.90) M/uL Hgb 8.4 L (12.0-15.0) g/dL Hct 26.1 L (40.0-54.0) % MCV 90 (80-98) fL MCH 29 (27-31) pg MCHC 32 (32-36) % Plt Count 120 L (150-400) K/uL Neut % (Auto) 50 (36-66) % Lymph % (Auto) 44 (24-44) % [place] % (Auto) 4 (2-6) % Eos % (Auto) 2 (2-4) % Baso % (Auto) 1 (0-1) % Sodium 135 L (140-148) mmol/L Potassium 4.5 (3.6-5.2) mmol/L Chloride 100 (100-108) mmol/L Carbon Dioxide 23 (21-32) mmol/L Anion Gap 16.5 H (5.0-14.0) mmol/L BUN 35 H (7-18) mg/dL Creatinine 1.4 H D (0.8-1.3) mg/dL Est Cr Clr Drug Dosing 39.46 mL/min Estimated GFR (MDRD) 49 L (>60) Glucose 107 H (74-106) mg/dL Calcium 9.2 (8.5-10.1) mg/dL Total Bilirubin 0.6 (0.2-1.0) mg/dL AST 25 (15-37) U/L ALT 20 (12-78) U/L Alkaline Phosphatase 75 (46-116) U/L C-Reactive Protein 0.30 (0.0-0.3) mg/dL Total Protein 5.8 L (6.4-8.2) g/dL Albumin 2.8 L (3.4-5.0) g/dL Globulin 3.0 (2.3-3.5) g/dL Albumin/Globulin Ratio 0.9 L (1.2-2.2) Blood Type O POSITIVE Gel Antibody Screen Negative Crossmatch See Detail Result Diagrams: 05/29/18 11:05 05/29/18 11:05 Dante Results Last 24 hrs: Microbiology 05/29/18 11:47 Stool Occult Blood (DANTE) - Final Stool / Feces NEGATIVE OCCULT BLOOD *Q Meaningful Use (ADM) - VTE Risk Assess *Q Each Risk Factor Represents 1 Point: History of prior major surgery less than 1 month Total Score 1 Point Risk Factors: 1 Each Risk Factor Represents 2 Points: None Total Score 2 Point Risk Factors: 0 Each Risk Factor Represents 3 Points: Age 75 Years or Greater Total Score 3 Point Risk Factors: 3 Each Risk Factor Represents 5 Points: None Total Score 5 Point Risk Factors: 0 Venous Thromboembolism Risk Factor Score *Q: 4 Problem List Initiated/Reviewed/Updated: Yes Orders Last 24hrs: Active Orders 24 hr Category Date Time Status Patient Status Manage Transfer [TRANSFER] Routine ADT 05/29/18 13:15 Active RED BLOOD CELLS LP [BBK] Stat Lab 05/29/18 11:05 Results TYPE AND SCREEN [BBK] Stat Lab 05/29/18 11:05 Results UA W/MICROSCOPIC [URIN] Urgent Lab 05/29/18 13:25 Ordered Sodium Chloride 0.9% [Normal Saline] 1,000 ml Med 05/29/18 11:15 Active IV ASDIRECTED Sodium Chloride 0.9% [Normal Saline] 1,000 ml Med 05/29/18 12:30 Active IV ASDIRECTED Resuscitation Status Routine Resus Stat 05/29/18 13:19 Ordered Medication Orders Sodium Chloride (Normal Saline) 1,000 mls @ 999 mls/hr IV ASDIRECTED CIARRA Last Admin: 05/29/18 11:10 Dose: 999 mls/hr Sodium Chloride (Normal Saline) 1,000 mls @ 999 mls/hr IV ASDIRECTED CIARRA Last Admin: 05/29/18 12:18 Dose: 999 mls/hr Assessment/Plan Comment:: ASSESSMENT AND PLAN NAUSEA AND VOMITING-underlying etiology not apparent. Possible gastritis versus ulcer versus gastroenteritis -Clear liquid diet -Nothing by mouth after midnight -Medication as needed for pain and/or nausea -IV fluids for hydration -Protonix 40 mg IV every 12 hours -Consult Dr. Adams for EGD in a.m. OSTEOMYELITIS RIGHT FIRST TOE - evaluated by cardiology while in [place], no intervention. Current plan is to manage conservatively with antibiotic therapy and followed by Dr. Linn -Continue linezolid and ciprofloxacin SIGMOID COLON PERFORATION RESULTING IN ACUTE ABDOMEN AND SEPTIC SHOCK - postop course complicated by wound dehiscence and intra-abdominal abscess. No evidence of recurrent infection identified on CT scan COPD - [id number] smoking history but no evidence for exacerbation at this time. -Nebulized albuterol as needed HISTORY OF LUNG AND PROSTATE CARCINOMA - lung cancer felt to be stable, had been receiving treatment for management of prostate carcinoma prior to admission MAINTENANCE ISSUES -DVT prophylaxis; Lovenox 40 mg subcutaneous daily -GI prophylaxis; Protonix as above -Sorto catheter; not indicated -Nutrition; clear liquids DISPOSITION - pending
[2018-05-29] MEDS ORDERED: Polyethylene Glycol 3350 Powder 17 GM Packet PO PRN (14:09)
[2018-05-29] MEDS ORDERED: Sodium Chloride 0.9% 10 ML Syringe FLUSH PRN (14:09)
[2018-05-29] MEDS ORDERED: oxyCODONE 5 MG Tab PO PRN (14:09)
[2018-05-29] MEDS ORDERED: Albuterol 0.083% 2.5 MG/3 ML Neb Soln NEB PRN (14:09)
[2018-05-29] MEDS ORDERED: Ondansetron 4 MG/2 ML SDV IV PRN (14:09)
[2018-05-29] MEDS ORDERED: Acetaminophen 325 MG Tab PO PRN (14:09)
[2018-05-29] MEDS ORDERED: Enoxaparin 40 MG/0.4 ML Syringe SUBCUT SCH (15:00)
[2018-05-29] MEDS: Sodium Chloride 0.9% 1,000 ML IV SCH ×2 (15:12→23:09)
[2018-05-29] MEDS: Pantoprazole 40 MG Vial IV SCH (15:22)
[2018-05-29] MEDS: CIPROFLOXACIN 500 MG PO SCH (16:52)
[2018-05-29] MEDS: LINEZOLID 600 MG PO SCH (21:07)
[2018-05-30] MEDS: Pantoprazole 40 MG Vial IV SCH ×2 (02:45→17:00)
[2018-05-30] MEDS: Sodium Chloride 0.9% 1,000 ML IV SCH ×3 (06:43→17:01)
[2018-05-30] MEDS: ANORO ELLIPTA 62.5MCG/25MCG INHALER (PTOM) INH SCH (07:05)
[2018-05-30] MEDS: CIPROFLOXACIN 500 MG PO SCH ×3 (07:48→17:02)
[2018-05-30] MEDS ORDERED: Psyllium Husk Powder Sugar Free 5.85 GM Packet PO SCH (09:00)
[2018-05-30] MEDS ORDERED: BISACODYL 5 MG PO SCH (09:00)
[2018-05-30] MEDS ORDERED: METHYLCELLULOSE 500 MG PO SCH (09:00)
[2018-05-30] MEDS ORDERED: Non-Formulary Medication 1 Each (Umeclidinium Brm/Vilanterol Tr [Anoro Ellipta 62.5-25 Mcg IH SCH (09:00)
[2018-05-30] MEDS: Bisacodyl 5 MG Tab PO SCH (09:58)
[2018-05-30] MEDS: METHYLCELLULOSE 500 MG PO SCH (09:58)
[2018-05-30] MEDS: Magnesium Oxide 400 MG Tab PO SCH ×2 (09:58→20:40)
[2018-05-30] MEDS: LINEZOLID 600 MG PO SCH ×2 (09:59→20:39)
--- NOTE | 2018-05-30 10:10 | PCM.PN ---
- General Info Date of Service: 05/30/18 Subjective Update: Mr. Silva is been stable since admission yesterday, good vital signs and he has remained afebrile. Following hydration hemoglobin did drop to 6.9 and he has been transfused 2 units of red blood cells this morning. Follow-up hemoglobin will be obtained at noon and if within desired range, plan will be to proceed with EGD. He's had no further nausea vomiting since admission and denies significant abdominal pain. Functional Status: Reports: Tolerating Diet, Urinating - Review of Systems General: Reports: Weakness. Denies: Fever, Chills Pulmonary: Reports: No Symptoms Cardiovascular: Reports: No Symptoms Gastrointestinal: Reports: No Symptoms - Patient Data Vitals - Most Recent: Last Vital Signs Temp 97.9 F 05/30/18 09:55 Pulse 62 05/30/18 09:55 Resp 12 05/30/18 09:55 BP 114/53 L 05/30/18 09:55 Pulse Ox 95 05/30/18 09:55 Weight - Most Recent: 138 lb 14.259 oz I&O - Last 24 Hours: Intake & Output 05/29/18 05/30/18 05/30/18 22:59 06:59 14:59 Intake Total 206 1575 780 Output Total 500 550 Balance -294 1025 780 Lab Results Last 24 Hours: Laboratory Results - last 24 hr 05/29/18 05/29/18 05/29/18 Range/Units 11:05 11:05 11:05 WBC 6.1 (4.5-11.0) K/uL RBC 2.91 L (4.30-5.90) M/uL Hgb 8.4 L (12.0-15.0) g/dL Hct 26.1 L (40.0-54.0) % MCV 90 (80-98) fL MCH 29 (27-31) pg MCHC 32 (32-36) % Plt Count 120 L (150-400) K/uL Neut % (Auto) 50 (36-66) % Lymph % (Auto) 44 (24-44) % Sabine % (Auto) 4 (2-6) % Eos % (Auto) 2 (2-4) % Baso % (Auto) 1 (0-1) % Sodium 135 L (140-148) mmol/L Potassium 4.5 (3.6-5.2) mmol/L Chloride 100 (100-108) mmol/L Carbon Dioxide 23 (21-32) mmol/L Anion Gap 16.5 H (5.0-14.0) mmol/L BUN 35 H (7-18) mg/dL Creatinine 1.4 H D (0.8-1.3) mg/dL Est Cr Clr Drug Dosing 39.46 mL/min Estimated GFR (MDRD) 49 L (>60) Glucose 107 H (74-106) mg/dL Calcium 9.2 (8.5-10.1) mg/dL Magnesium (1.8-2.4) mg/dL Total Bilirubin 0.6 (0.2-1.0) mg/dL AST 25 (15-37) U/L ALT 20 (12-78) U/L Alkaline Phosphatase 75 (46-116) U/L C-Reactive Protein 0.30 (0.0-0.3) mg/dL Total Protein 5.8 L (6.4-8.2) g/dL Albumin 2.8 L (3.4-5.0) g/dL Globulin 3.0 (2.3-3.5) g/dL Albumin/Globulin Ratio 0.9 L (1.2-2.2) Urine Color Urine Appearance Urine pH (4.5-8.0) Ur Specific Pryor (1.008-1.030) Urine Protein (NEGATIVE) mg/dL Urine Glucose (UA) (NEGATIVE) mg/dL Urine Ketones (NEGATIVE) mg/dL Urine Occult Blood (NEGATIVE) Urine Nitrite (NEGAITVE) Urine Bilirubin (NEGATIVE) Urine Urobilinogen (NORMAL) mg/dL Ur Leukocyte Esterase (NEGATIVE) Urine RBC (0-5) Urine WBC (0-5) Ur Epithelial Cells Amorphous Sediment Urine Bacteria Urine Mucus Blood Type O POSITIVE Gel Antibody Screen Negative Crossmatch See Detail 05/29/18 05/30/18 05/30/18 Range/Units 13:25 05:56 05:56 WBC 5.4 (4.5-11.0) K/uL RBC 2.34 L (4.30-5.90) M/uL Hgb 6.9 L* (12.0-15.0) g/dL Hct 20.9 L (40.0-54.0) % MCV 89 (80-98) fL MCH 30 (27-31) pg MCHC 33 (32-36) % Plt Count 48 L (150-400) K/uL Neut % (Auto) 44 (36-66) % Lymph % (Auto) 50 H (24-44) % Sabine % (Auto) 3 (2-6) % Eos % (Auto) 3 (2-4) % Baso % (Auto) 0 (0-1) % Sodium 138 L (140-148) mmol/L Potassium 4.6 (3.6-5.2) mmol/L Chloride 107 (100-108) mmol/L Carbon Dioxide 21 (21-32) mmol/L Anion Gap 14.6 H (5.0-14.0) mmol/L BUN 25 H (7-18) mg/dL Creatinine 1.0 (0.8-1.3) mg/dL Est Cr Clr Drug Dosing 56.00 mL/min Estimated GFR (MDRD) > 60 (>60) Glucose 89 (74-106) mg/dL Calcium 7.7 L D (8.5-10.1) mg/dL Magnesium 1.6 L (1.8-2.4) mg/dL Total Bilirubin (0.2-1.0) mg/dL AST (15-37) U/L ALT (12-78) U/L Alkaline Phosphatase (46-116) U/L C-Reactive Protein (0.0-0.3) mg/dL Total Protein (6.4-8.2) g/dL Albumin (3.4-5.0) g/dL Globulin (2.3-3.5) g/dL Albumin/Globulin Ratio (1.2-2.2) Urine Color Yellow Urine Appearance Clear Urine pH 5.0 (4.5-8.0) Ur Specific Pryor 1.015 (1.008-1.030) Urine Protein Negative (NEGATIVE) mg/dL Urine Glucose (UA) Negative (NEGATIVE) mg/dL Urine Ketones 15 H (NEGATIVE) mg/dL Urine Occult Blood Negative (NEGATIVE) Urine Nitrite Negative (NEGAITVE) Urine Bilirubin Negative (NEGATIVE) Urine Urobilinogen Normal (NORMAL) mg/dL Ur Leukocyte Esterase Negative (NEGATIVE) Urine RBC Not seen (0-5) Urine WBC Not seen (0-5) Ur Epithelial Cells Not seen Amorphous Sediment Rare Urine Bacteria Not seen Urine Mucus Not seen Blood Type Gel Antibody Screen Crossmatch Dante Results Last 24 Hours: Microbiology 05/29/18 11:47 Stool Occult Blood (DANTE) - Final Stool / Feces NEGATIVE OCCULT BLOOD Med Orders - Current: Current Medications Acetaminophen (Tylenol) 650 mg PO Q4H PRN PRN Reason: Pain (Mild 1-3)/fever Albuterol (Proventil Neb Soln) 2.5 mg NEB Q4H PRN PRN Reason: Shortness Of Breath/wheezing Bisacodyl (Dulcolax) 5 mg PO DAILY [facility] Last Admin: 05/30/18 09:58 Dose: 5 mg Ciprofloxacin (Ciprofloxacin Hcl) 500 mg PO BIDAC [facility] Last Admin: 05/30/18 09:57 Dose: 500 mg Sodium Chloride (Normal Saline) 1,000 mls @ 125 mls/hr IV ASDIRECTED [facility] Last Admin: 05/30/18 06:43 Dose: 125 mls/hr Magnesium Sulfate 2 gm/ Premix 50 mls @ 25 mls/hr IV Q6H [facility] Stop: 05/30/18 16:59 Linezolid (Zyvox) 600 mg PO BID [facility] Last Admin: 05/30/18 09:59 Dose: 600 mg Magnesium Oxide (Magnesium Oxide) 400 mg PO BID [facility] Last Admin: 05/30/18 09:58 Dose: 400 mg Ondansetron HCl (Zofran) 4 mg IV Q4H PRN PRN Reason: Nausea/Vomiting Oxycodone HCl (Oxycodone) 5 mg PO Q4H PRN PRN Reason: Pain (moderate 4-6) Last Admin: 05/29/18 21:10 Dose: 5 mg Pantoprazole Sodium (Protonix Iv) 40 mg IV Q12H [facility] Last Admin: 05/30/18 02:45 Dose: 40 mg Anoro Ellipta 62. 5mcg/25mcg Inhaler ( Ptom) 0 each INH DAILYRT [facility] Last Admin: 05/30/18 07:05 Dose: 1 each Methylcellulose (500mg (Ptom)) 0 each PO DAILY [facility] Last Admin: 05/30/18 09:58 Dose: 1 each Polyethylene Glycol (Miralax) 17 gm PO DAILY PRN PRN Reason: Constipation Sodium Chloride (Saline Flush) 10 ml FLUSH ASDIRECTED PRN PRN Reason: Keep Vein Open Discontinued Medications Enoxaparin Sodium (Lovenox) 40 mg SUBCUT Q24H [facility] Last Admin: 05/29/18 15:23 Dose: 40 mg Sodium Chloride (Normal Saline) 1,000 mls @ 999 mls/hr IV ASDIRECTED [facility] Last Admin: 05/29/18 11:10 Dose: 999 mls/hr Sodium Chloride (Normal Saline) 1,000 mls @ 999 mls/hr IV ASDIRECTED [facility] Last Admin: 05/29/18 12:18 Dose: 999 mls/hr Ondansetron HCl (Zofran) 4 mg IVPUSH ONETIME ONE Stop: 05/29/18 11:03 Last Admin: 05/29/18 11:20 Dose: 4 mg - Exam General: Alert, Oriented, Cooperative, Mild Distress Lungs: Clear to Auscultation, Normal Respiratory Effort Cardiovascular: Regular Rate, Regular Rhythm, No Murmurs GI/Abdominal Exam: Soft, Non-Tender, No Organomegaly, No Distention Extremities: Non-Tender, No Pedal Edema - Problem List Review Problem List Initiated/Reviewed/Updated: Yes - My Orders Last 24 Hours: My Active Orders 05/29/18 13:19 Resuscitation Status Routine 05/29/18 14:09 Patient Status [ADT] Routine Ambulate [RC] QID Height and Weight [RC] DAILY Intake and Output [RC] QSHIFT Notify Provider Consults [RC] ASDIRECTED Notify Provider Vital Signs [RC] ASDIRECTED Oxygen Therapy [RC] PRN Peripheral IV Care [RC] . DIRECTED RT Aerosol Therapy [RC] ASDIRECTED Up With Assistance [RC] ASDIRECTED Up to Chair [RC] QID Vital Signs [RC] Q4H Consult to Physician [CONS] Routine Acetaminophen [Tylenol] 650 mg PO Q4H PRN Albuterol [Proventil Neb Soln] 2.5 mg NEB Q4H PRN Ondansetron [Zofran] 4 mg IV Q4H PRN Polyethylene Glycol 3350 [MiraLAX] 17 gm PO DAILY PRN Sodium Chloride 0.9% [Normal Saline] 1,000 ml IV ASDIRECTED Sodium Chloride 0.9% [Saline Flush] 10 ml FLUSH ASDIRECTED PRN oxyCODONE 5 mg PO Q4H PRN Peripheral IV Insertion Adult [OM.PC] Routine 05/29/18 14:44 Consult to Physical Therapy [PT Evaluation and Treatment] [CONS] Routine 05/29/18 15:00 Pantoprazole [ProTONIX IV] 40 mg IV Q12H 05/29/18 16:30 Ciprofloxacin [Ciprofloxacin HCl] 500 mg PO BIDAC 05/29/18 21:00 Linezolid [Zyvox] 600 mg PO BID 05/30/18 06:22 Transfuse Red Blood Cells [COMM] Stat 05/30/18 07:00 Patient's Own Medication [Ptom] 0 each INH DAILYRT 05/30/18 09:00 Bisacodyl [Dulcolax] 5 mg PO DAILY Magnesium Oxide 400 mg PO BID Magnesium Sulfate/Water [Magnesium Sulfate 2 GM in Water 50 ML] 2 gm Premix Bag 1 bag IV Q6H Patient's Own Medication [Ptom] 0 each PO DAILY 05/30/18 12:00 HGB [HEMOGLOBIN] [HEME] Stat 05/30/18 18:00 HGB [HEMOGLOBIN] [HEME] Stat 05/30/18 Breakfast NPO After Midnight [Nothing per Oral After Midnight Diet] [DIET] Nothing per Oral After Midnight Diet [DIET] 05/31/18 05:00 BASIC METABOLIC PANEL,BMP [CHEM] Timed CBC WITH AUTO DIFF [HEME] Timed MAGNESIUM [CHEM] Timed - Plan Plan:: ASSESSMENT AND PLAN NAUSEA AND VOMITING-underlying etiology not apparent. Possible gastritis versus ulcer versus gastroenteritis -Nothing by mouth pending EGD -Medication as needed for pain and/or nausea -IV fluids for hydration -Protonix 40 mg IV every 12 hours -Consult Dr. Adams for EGD today OSTEOMYELITIS RIGHT FIRST TOE - evaluated by cardiology while in [place], no intervention. Current plan is to manage conservatively with antibiotic therapy and followed by Dr. Linn -Continue linezolid and ciprofloxacin CHRONIC ANEMIA-hemoglobin 8.1 on admission and dropped to 6.9 this morning likely secondary to dilution with IV fluids. No current evidence of active bleeding. He has received 2 units of red blood cells this morning. -Serial hemoglobin levels SIGMOID COLON PERFORATION RESULTING IN ACUTE ABDOMEN AND SEPTIC SHOCK - postop course complicated by wound dehiscence and intra-abdominal abscess. No evidence of recurrent infection identified on CT scan COPD - [id number] smoking history but no evidence for exacerbation at this time. -Nebulized albuterol as needed HISTORY OF LUNG AND PROSTATE CARCINOMA - lung cancer felt to be stable, had been receiving treatment for management of prostate carcinoma prior to admission MAINTENANCE ISSUES -DVT prophylaxis; hold Lovenox because of anemia and possible bleed, SCUDs -GI prophylaxis; Protonix as above -Sorto catheter; not indicated -Nutrition; clear liquids DISPOSITION - pending
[2018-05-30] MEDS: Magnesium Sulfate/Water 2 GM in Premix Bag 1 BAG IV SCH ×2 (11:42→16:35)
[2018-05-30] MEDS ORDERED: Propofol 200 MG/20 ML SDV ONE (15:21)
--- NOTE | 2018-05-30 17:05 | OR ---
DATE OF PROCEDURE: 05/30/2018 PREOPERATIVE DIAGNOSES: 1. Nausea and vomiting. 2. Anemia. 3. Dehydration. POSTOPERATIVE DIAGNOSES: 1. Nausea and vomiting. 2. Anemia. 3. Dehydration. 4. Mild antral gastritis. 5. Moderate duodenitis. 6. Hiatal hernia. PROCEDURES PERFORMED: Esophagogastroduodenoscopy with antral biopsies for CLOtest and for pathology to look for Helicobacter pylori. SURGEON: Espinoza Adams MD. ANESTHESIA: IV anesthesia with monitored anesthesia care. INDICATION: This 78-year-old white male was admitted yesterday with nausea, vomiting, dehydration, and anemia. His hemoglobin was in the 8 to 9 range. It fell to 6.9. He was transfused. He is taken to the operating room at this time for upper endoscopy. I counseled him for this, and he gave his informed consent to proceed. DESCRIPTION OF PROCEDURE: The patient was placed in the left lateral decubitus position. IV anesthesia was administered by the Anesthesia Service. Time-out was held. The flexible video Olympus upper endoscope was passed through his mouth, down his esophagus, and into his stomach. The scope was easily passed through the pylorus into the duodenum reaching its third portion. The scope was slowly withdrawn examining the mucosa throughout. The distal duodenum appeared unremarkable. The scope was brought up into the duodenal bulb , where there was fairly intense erythema consistent with duodenitis. The scope was brought up through the pylorus. There were some mild erythematous changes consistent with mild gastritis. We obtained antral biopsies for CLOtest and for pathology to look for Helicobacter pylori. The scope was retroflexed with the proximal stomach appearing unremarkable, except for a hiatal hernia being present. The scope was straightened and brought up through the hiatal hernia, which measured about 5 cm in length. The scope was then brought up through the otherwise unremarkable-appearing esophagus and was removed. He tolerated the procedure well. Espinoza Adams MD /[id number] MTDD
[2018-05-31] MEDS: Pantoprazole 40 MG Vial IV SCH ×2 (03:07→15:00)
[2018-05-31] MEDS: ANORO ELLIPTA 62.5MCG/25MCG INHALER (PTOM) INH SCH (07:33)
[2018-05-31] MEDS: CIPROFLOXACIN 500 MG PO SCH (07:33)
[2018-05-31] MEDS: METHYLCELLULOSE 500 MG PO SCH (08:56)
[2018-05-31] MEDS: LINEZOLID 600 MG PO SCH (08:58)
[2018-05-31] MEDS: Magnesium Oxide 400 MG Tab PO SCH (08:58)
[2018-05-31] MEDS: Bisacodyl 5 MG Tab PO SCH (08:59)
--- NOTE | 2018-05-31 11:21 | PCM.DCSUM1 ---
Discharge Summary - Hospital Course Brief History: Mr. Silva is a 78-year-old gentleman who was admitted to observation status with nausea vomiting and dehydration. - Discharge Data Discharge Date: 05/31/18 Discharge Disposition: Home, Self-Care 01 Condition: Fair - Discharge Diagnosis/Problem(s) (1) Gastritis SNOMED Code(s): 6822792 ICD Code: K29.70 - GASTRITIS, UNSPECIFIED, WITHOUT BLEEDING Status: Acute Current Visit: Yes (2) Nausea and vomiting SNOMED Code(s): 89478477 ICD Code: R11.2 - NAUSEA WITH VOMITING, UNSPECIFIED Status: Acute Current Visit: Yes (3) Anemia SNOMED Code(s): 838462854 ICD Code: D64.9 - ANEMIA, UNSPECIFIED Status: Acute Current Visit: Yes (4) Dehydration SNOMED Code(s): 81590841 ICD Code: E86.0 - DEHYDRATION Status: Acute Current Visit: Yes (5) Duodenitis SNOMED Code(s): 91775918 ICD Code: K29.80 - DUODENITIS WITHOUT BLEEDING Status: Acute Current Visit: Yes - Patient Summary/Data Consults: Consultations 05/29/18 14:09 Consult to Physician [CONS] Routine Consulting Provider: Espinoza Adams Call Completed to Consulting Physician: Yes Reason for Consult: Nausea and vomiting 05/29/18 14:44 Consult to Physical Therapy [PT Evaluation and Treatment] [CONS] Routine Please Evaluate and Treat. PT Reason for Consult: Generalized weakness This query below is only for informational purposes and is not editable. Admission Diagnosis/Problem: Nausea and vomiting Hospital Course: Mr. Silva is a 78-year-old gentleman who was admitted through the emergency department to observation status for further evaluation and management of recent nausea and vomiting, resulting in dehydration. He was hospitalized at this facility for a prolonged period of time following a spontaneous perforation of his colon. He initially experienced severe sepsis and respiratory failure requiring mechanical ventilation and pressors. He slowly improved but then developed abdominal abscess associated with wound dehiscence. After prolonged hospitalization he was discharged to acute inpatient rehabilitation. He's been home now about 3 weeks and had been slowly improving until last 2-3 days when he is experienced increased nausea and vomiting. During that period of time he has become progressively more weak. On evaluation in the emergency department white blood cell count and CRP are within normal range. CT scan of the abdomen and pelvis shows no obvious area of underlying infection or obstruction. On admission he was given IV fluids for hydration as well as IV Protonix 40 mg twice daily. By the following morning he was feeling improved with no recurrent nausea or vomiting. Hemoglobin was noted to be low on admission at 8.1, after hydration hemoglobin had dropped to 6.9. He was transfused 2 units of red blood cells, after which hemoglobin increased to greater than 10. Hemoglobin remained stable throughout the rest of his hospital stay and there was no evidence of active bleeding. He was seen and evaluated by Dr. Adams, EGD was performed which showed evidence of mild gastritis and moderate duodenitis. On admission he had been taking Protonix 40 mg daily. He remains stable over the next 24 hours following the EGD and had no recurrence of nausea vomiting. He was able to tolerate his diet with no significant problems. He will be discharged home on Protonix 40 mg twice daily. Activity will be as tolerated and he will resume his usual diet. He will follow-up with Dr. Linn as previously scheduled for management of osteomyelitis of his right first toe. Follow-up appointment will be scheduled with his primary care provider within one week. - Patient Instructions Diet: Usual Diet as Tolerated Activity: As Tolerated Other/Special Instructions: Schedule follow-up appointment with Dr. Linn. Please schedule follow-up appointment with primary care provider within one week. - Discharge Plan *PRESCRIPTION DRUG MONITORING PROGRAM REVIEWED*: Not Applicable *COPY OF PRESCRIPTION DRUG MONITORING REPORT IN PATIENT SHAMA: Not Applicable Prescriptions/Med Rec: Lactobacillus Acidophilus [Acidophilus Lactobacilli] 1 each PO BID #60 capsule Pantoprazole Sodium [Protonix] 40 mg PO BID #60 tablet. Home Medications: Home Meds Bisacodyl [Laxative] 5 mg PO DAILY 03/18/18 [History] Calc/D3/Mag/Zn/Mathematics Instructor/Chad/[place] [Calcium 600 MG Plus Vit D] 1 tab PO DAILY [History] Bisacodyl [Dulcolax] 10 mg RECTAL BID supp 04/29/18 [Rx] Ciprofloxacin [Ciprofloxacin HCl] 500 mg PO BIDAC tablet 04/29/18 [Rx] Linezolid [Zyvox] 600 mg PO BID tablet 04/29/18 [Rx] Acetaminophen 650 mg PO Q4HR PRN 05/29/18 [History] Furosemide [Lasix] 20 mg PO DAILY 05/29/18 [History] Methylcellulose [Citrucel] 500 mg PO DAILY 05/29/18 [History] Ondansetron [Zofran ODT] 4 mg PO Q4HR PRN 05/29/18 [History] Umeclidinium Brm/Vilanterol Tr [Anoro Ellipta 62.5-25 MCG] 1 puff IH DAILY 05/29 [History] Lactobacillus Acidophilus [Acidophilus Lactobacilli] 1 each PO BID #60 capsule 05/31/18 [Rx] Pantoprazole Sodium [Protonix] 40 mg PO BID #60 tablet. 05/31/18 [Rx] Referrals: Emil Randall, [employer] [Primary Care Provider] - - Discharge Summary/Plan Comment DC Time >30 min.: No - Patient Data Vitals - Most Recent: Last Vital Signs Temp 96.5 F 05/31/18 11:00 Pulse 76 05/31/18 11:00 Resp 14 05/31/18 11:00 BP 93/39 L 05/31/18 11:00 Pulse Ox 91 L 05/31/18 11:00 Weight - Most Recent: 138 lb I&O - Last 24 hours: Intake & Output 05/30/18 05/31/18 05/31/18 22:59 06:59 14:59 Intake Total 576 240 Output Total 100 200 Balance 476 40 Lab Results - Last 24 hrs: Laboratory Results - last 24 hr 05/29/18 05/30/18 05/30/18 Range/Units 11:05 12:00 18:01 WBC (4.5-11.0) K/uL RBC (4.30-5.90) M/uL Hgb 10.6 L D 10.7 L (12.0-15.0) g/dL Hct (40.0-54.0) % MCV (80-98) fL MCH (27-31) pg MCHC (32-36) % Plt Count (150-400) K/uL Neut % (Auto) (36-66) % Lymph % (Auto) (24-44) % Payne % (Auto) (2-6) % Eos % (Auto) (2-4) % Baso % (Auto) (0-1) % Sodium (140-148) mmol/L Potassium (3.6-5.2) mmol/L Chloride (100-108) mmol/L Carbon Dioxide (21-32) mmol/L Anion Gap (5.0-14.0) mmol/L BUN (7-18) mg/dL Creatinine (0.8-1.3) mg/dL Est Cr Clr Drug Dosing mL/min Estimated GFR (MDRD) (>60) Glucose (74-106) mg/dL Calcium (8.5-10.1) mg/dL Magnesium (1.8-2.4) mg/dL Crossmatch See Detail 05/31/18 05/31/18 Range/Units 05:00 05:00 WBC 6.4 (4.5-11.0) K/uL RBC 3.58 L (4.30-5.90) M/uL Hgb 10.4 L (12.0-15.0) g/dL Hct 29.9 L (40.0-54.0) % MCV 84 (80-98) fL MCH 29 (27-31) pg MCHC 35 (32-36) % Plt Count 88 L (150-400) K/uL Neut % (Auto) 51 (36-66) % Lymph % (Auto) 42 (24-44) % Payne % (Auto) 4 (2-6) % Eos % (Auto) 3 (2-4) % Baso % (Auto) 0 (0-1) % Sodium 137 L (140-148) mmol/L Potassium 4.6 (3.6-5.2) mmol/L Chloride 106 (100-108) mmol/L Carbon Dioxide 21 (21-32) mmol/L Anion Gap 14.6 H (5.0-14.0) mmol/L BUN 21 H (7-18) mg/dL Creatinine 1.1 (0.8-1.3) mg/dL Est Cr Clr Drug Dosing 50.91 mL/min Estimated GFR (MDRD) > 60 (>60) Glucose 101 (74-106) mg/dL Calcium 7.7 L (8.5-10.1) mg/dL Magnesium 2.7 H (1.8-2.4) mg/dL Crossmatch Med Orders - Current: Current Medications Acetaminophen (Tylenol) 650 mg PO Q4H PRN PRN Reason: Pain (Mild 1-3)/fever Albuterol (Proventil Neb Soln) 2.5 mg NEB Q4H PRN PRN Reason: Shortness Of Breath/wheezing Bisacodyl (Dulcolax) 5 mg PO DAILY [facility] Last Admin: 05/31/18 08:59 Dose: 5 mg Ciprofloxacin (Ciprofloxacin Hcl) 500 mg PO BIDAC [facility] Last Admin: 05/31/18 07:33 Dose: 500 mg Linezolid (Zyvox) 600 mg PO BID [facility] Last Admin: 05/31/18 08:58 Dose: 600 mg Magnesium Oxide (Magnesium Oxide) 400 mg PO BID [facility] Last Admin: 05/31/18 08:58 Dose: 400 mg Ondansetron HCl (Zofran) 4 mg IV Q4H PRN PRN Reason: Nausea/Vomiting Oxycodone HCl (Oxycodone) 5 mg PO Q4H PRN PRN Reason: Pain (moderate 4-6) Last Admin: 05/29/18 21:10 Dose: 5 mg Pantoprazole Sodium (Protonix Iv) 40 mg IV Q12H [facility] Last Admin: 05/31/18 03:07 Dose: 40 mg Anoro Ellipta 62. 5mcg/25mcg Inhaler ( Ptom) 0 each INH DAILYRT [facility] Last Admin: 05/31/18 07:33 Dose: 1 each Methylcellulose (500mg (Ptom)) 0 each PO DAILY [facility] Last Admin: 05/31/18 08:56 Dose: 1 each Polyethylene Glycol (Miralax) 17 gm PO DAILY PRN PRN Reason: Constipation Sodium Chloride (Saline Flush) 10 ml FLUSH ASDIRECTED PRN PRN Reason: Keep Vein Open Discontinued Medications Enoxaparin Sodium (Lovenox) 40 mg SUBCUT Q24H [facility] Last Admin: 05/29/18 15:23 Dose: 40 mg Sodium Chloride (Normal Saline) 1,000 mls @ 999 mls/hr IV ASDIRECTED [facility] Last Admin: 05/29/18 11:10 Dose: 999 mls/hr Sodium Chloride (Normal Saline) 1,000 mls @ 999 mls/hr IV ASDIRECTED [facility] Last Admin: 05/29/18 12:18 Dose: 999 mls/hr Sodium Chloride (Normal Saline) 1,000 mls @ 125 mls/hr IV ASDIRECTED [facility] Last Admin: 05/30/18 17:01 Dose: 125 mls/hr Magnesium Sulfate 2 gm/ Premix 50 mls @ 25 mls/hr IV Q6H [facility] Stop: 05/30/18 16:59 Last Admin: 05/30/18 16:35 Dose: 25 mls/hr Ondansetron HCl (Zofran) 4 mg IVPUSH ONETIME ONE Stop: 05/29/18 11:03 Last Admin: 05/29/18 11:20 Dose: 4 mg Propofol (Diprivan 20 Ml) Confirm Administered Dose 200 mg .ROUTE .STK-MED ONE Stop: 05/30/18 15:22 - Exam General: Reports: Alert, Oriented, Cooperative, No Acute Distress Lungs: Reports: Clear to Auscultation, Normal Respiratory Effort Cardiovascular: Reports: Regular Rate, Regular Rhythm, No Murmurs GI/Abdominal Exam: Soft, Non-Tender, No Organomegaly, No Distention
[2018-05-31 14:28] VITALS: BP 105/59
== END 2018-05-31 15:45 | disposition home or self-care (01) ==
LOC: JP.ED 10:11 → JP.ICU 13:15 → JP.MS 05-30 11:00
PROVIDERS: ADMIT Hospitalist; ATTEND Hospitalist
DX: E86.0 Dehydration (principal); K29.80 Duodenitis without bleeding; K29.70 Gastritis, unspecified, without bleeding; K44.9 Diaphragmatic hernia without obstruction or gangrene; D64.9 Anemia, unspecified; M86.8X7 Other osteomyelitis, ankle and foot; J44.9 Chronic obstructive pulmonary disease, unspecified; Z85.118 Personal history of other malignant neoplasm of bronchus and lung; Z85.46 Personal history of malignant neoplasm of prostate; Z87.891 Personal history of nicotine dependence; Z79.899 Other long term (current) drug therapy
CPT/HCPCS: 36415; 36430; 43239; 74176; 80048; 80053; 81001; 82272; 83735; 85018; 85025; 86140; 86850; 86900; 86901; 86920; 86922; 87081; 94640; 96361; 96365; 96366; 96372; 96375; 96376; 97162; 97530; 99285; A9270; C9113; G0378; J1650; J2405; J2704; J3475; J7030; P9016; 88305; 96374

== ENCOUNTER 2018-11-10 13:57 | Day surgery (SDC) | payer MEDICAID, MEDICARE, OTHER ==
[2018-11-10] MEDS ORDERED: Bupivacaine 0.5% 50 ML MDV ONE (14:22)
[2018-11-10] MEDS ORDERED: Lidocaine 2% 20 ML MDV ONE (14:22)
[2018-11-10] MEDS ORDERED: Lactated Ringers 1,000 ML IV SCH (14:45)
[2018-11-10] MEDS ORDERED: ceFAZolin 2 GM in Sodium Chloride 0.9% 50 ML IV ONE (15:00)
[2018-11-10] MEDS ORDERED: fentaNYL 100 MCG/2 ML SDV ONE (16:47)
[2018-11-10] MEDS ORDERED: Propofol 200 MG/20 ML SDV ONE (16:47)
--- NOTE | 2018-11-10 18:07 | OR ---
DATE OF PROCEDURE: 11/10/2018 SURGEON: Jace Brown DPM VARNISH THINNER: None. PREOPERATIVE DIAGNOSIS: Osteomyelitis, distal phalanx of right great toe. POSTOPERATIVE DIAGNOSIS: Osteomyelitis, distal phalanx of right great toe. PROCEDURE PERFORMED: Partial amputation of right great toe. ANESTHESIA: Local with IV sedation. HEMOSTASIS: Was obtained with an ankle tourniquet on the right ankle at 250 mmHg. ESTIMATED BLOOD LOSS: 5 mL. MATERIALS: None. INJECTABLES: A total of 18 mL of 1:1 mixture of lidocaine 2% plain, Marcaine 0.5% plain were injected preoperatively. PATHOLOGY: Distal right great toe was sent. CONDITION: Stable. INDICATIONS FOR SURGERY: Osteomyelitis, distal phalanx, right great toe. PROCEDURE IN DETAIL: Patient was brought to the operating room, placed on the operating table in supine position. Following IV sedation, anesthesia was obtained with a total of 18 mL of 1:1 mixture of lidocaine 2% plain, Marcaine 0.5% plain. The right foot was then scrubbed, prepped, and draped in the usual aseptic manner and raised to 60 degrees for hemostasis. Esmarch was not used. The tourniquet was inflated. Foot was lowered to table. Skin incision was made on the distal aspect of the right great toe down to bone leaving a plantar flap that was intact. The distal phalanx was excised by resecting the medial and lateral collateral ligaments of the interphalangeal joint and was removed completely with a lateral flap left attached to the distal end of the amputation site. The incision was then flushed out with 750 mL of sterile saline. The skin was inspected to make sure that there was no signs of infection or necrotic tissue and since none was found. The plantar flap was flipped dorsally and sutured in a simple interrupted configuration with 3-0 nylon to the dorsal, medial, and lateral sides of the toe and then it was dressed with Xeroform, 4x4s, Kerlix, and Coban. The patient was returned to recovery room with vital signs stable and vascular status intact to both feet. The patient was given instructions for rest and elevate the right foot and ambulate with a walker and Cam boot only with partial weight on the right foot and to return to clinic in one week, at which time, he will be re-evaluated. The patient was given instructions to go the emergency room immediately if he has any nausea, vomiting, fever, chills, chest pain, calf pain, difficulty breathing. Patient is given a prescription for Augmentin 875 mg one tab p.o. q.12 h x14 days, dispense #28. The patient to follow up with Dr. Brown in one week. Jace Brown DPM /[id number]
[2018-11-10 18:38] VITALS: BP 161/79; PULSE 77
== END 2018-11-10 19:28 | disposition home or self-care (01) ==
LOC: JP.SDS 13:57
PROVIDERS: ATTEND Podiatrist Foot & Ankle Surgery
DX: M86.171 Other acute osteomyelitis, right ankle and foot (principal); M86.671 Other chronic osteomyelitis, right ankle and foot; J44.9 Chronic obstructive pulmonary disease, unspecified; K21.9 Gastro-esophageal reflux disease without esophagitis; Z88.1 Allergy status to other antibiotic agents; Z91.030 Bee allergy status; Z87.891 Personal history of nicotine dependence; Z85.118 Personal history of other malignant neoplasm of bronchus and lung
CPT/HCPCS: 28124; J2001; J2704; J3010; J3490; J7120; 88305; 88311

== ENCOUNTER 2021-04-05 08:50 | Inpatient (IN) | payer MEDICARE ==
[2021-04-05] MEDS ORDERED: Sodium Chloride 0.9% 1,000 ML IV SCH (09:00)
[2021-04-05 12:08] LABS: CORONAVIRUS COVID-19 NAA POSITIVE (NEGATIVE)
[2021-04-05] MEDS ORDERED: Ondansetron 4 MG/2 ML SDV IV PRN (14:18)
[2021-04-05] MEDS ORDERED: LORazepam 2 MG/ML SDV IVPUSH PRN (14:18)
[2021-04-05] MEDS ORDERED: Acetaminophen 325 MG Tab PO PRN (14:18)
[2021-04-05] MEDS ORDERED: oxyCODONE 5 MG Tab PO PRN (14:18)
[2021-04-05] MEDS ORDERED: Magnesium Hydroxide 400 MG/5 ML Susp 30 ML Cup PO PRN (14:18)
[2021-04-05] MEDS ORDERED: Albuterol 0.083% 2.5 MG/3 ML Neb Soln NEB PRN (14:18)
[2021-04-05] MEDS ORDERED: Ondansetron 4 MG Tab.DIS PO PRN (14:18)
[2021-04-05] MEDS: Gabapentin 300 MG Cap PO SCH ×2 (14:49→22:00)
[2021-04-05] MEDS: Sodium Chloride 0.9% 1,000 ML IV SCH ×2 (14:49→23:35)
[2021-04-05] MEDS: Pantoprazole 40 MG Tab.CR PO SCH (17:25)
[2021-04-05] MEDS ORDERED: methylPREDNISolone Sodium Succinate 125 MG/2 ML SDV IVPUSH ONE (20:27)
[2021-04-05] MEDS ORDERED: Azithromycin 1,000 MG in Sodium Chloride 0.9% 500 ML IV ONE (21:26)
[2021-04-05] MEDS ORDERED: Sodium Chloride 0.9% 50 ML ONE (21:48)
[2021-04-05] MEDS: cefTRIAXone 1 GM in Sodium Chloride 0.9% 50 ML IV SCH (22:00)
[2021-04-05] MEDS: Melatonin 3 MG Tab PO SCH (22:01)
[2021-04-05] MEDS: atorvaSTATin 10 MG Tab PO SCH (22:01)
[2021-04-06] MEDS: methylPREDNISolone Sodium Succinate 125 MG/2 ML SDV IVPUSH SCH ×3 (04:10→20:17)
[2021-04-06] MEDS: Sodium Chloride 0.9% 1,000 ML IV SCH ×2 (07:58→15:31)
[2021-04-06] MEDS: Gabapentin 300 MG Cap PO SCH ×3 (08:38→20:18)
[2021-04-06] MEDS: Pantoprazole 40 MG Tab.CR PO SCH ×2 (08:38→16:44)
[2021-04-06] MEDS: Metoprolol Succinate 25 MG Tab.ER PO SCH (08:40)
[2021-04-06] MEDS: atorvaSTATin 10 MG Tab PO SCH (20:19)
[2021-04-06] MEDS: Melatonin 3 MG Tab PO SCH (20:19)
[2021-04-06] MEDS ORDERED: Azithromycin 500 MG in Sodium Chloride 0.9% 250 ML IV SCH (21:30)
[2021-04-06] MEDS: cefTRIAXone 1 GM in Sodium Chloride 0.9% 50 ML IV SCH (23:46)
[2021-04-07] MEDS: Sodium Chloride 0.9% 1,000 ML IV SCH ×3 (01:25→17:39)
[2021-04-07] MEDS: methylPREDNISolone Sodium Succinate 125 MG/2 ML SDV IVPUSH SCH (04:01)
[2021-04-07] MEDS: Pantoprazole 40 MG Tab.CR PO SCH ×2 (08:43→15:40)
[2021-04-07] MEDS: Gabapentin 300 MG Cap PO SCH ×3 (09:08→22:06)
[2021-04-07] MEDS ORDERED: predniSONE 20 MG Tab PO ONE (11:30)
[2021-04-07] MEDS: Azithromycin 250 MG Tab PO SCH (22:05)
[2021-04-07] MEDS: Melatonin 3 MG Tab PO SCH (22:05)
[2021-04-07] MEDS: Cefdinir 300 MG Cap PO SCH (22:06)
[2021-04-07] MEDS: atorvaSTATin 10 MG Tab PO SCH (22:06)
[2021-04-08] MEDS ORDERED: Potassium Chloride 20 MEQ in Premix Bag 2 BAG IV ONE (05:49)
[2021-04-08] MEDS ORDERED: Lidocaine 1% 5 ML VIAL INJECT ONE (05:51)
[2021-04-08] MEDS ORDERED: Potassium Chloride 20 MEQ in Premix Bag 1 BAG IV ONE ×3 (06:00→17:34)
[2021-04-08] MEDS ORDERED: Potassium Chloride 40 MEQ, Lidocaine 1% 2 ML in Sodium Chloride 0.9% 100 ML IV SCH (06:00)
[2021-04-08] MEDS ORDERED: Potassium Chloride 100 ML ONE (06:07)
[2021-04-08] MEDS ORDERED: Potassium Chloride 20 MEQ, Lidocaine 1% 2 ML in Sodium Chloride 0.9% 100 ML IV ONE (08:00)
[2021-04-08] MEDS: Cefdinir 300 MG Cap PO SCH ×2 (08:02→20:19)
[2021-04-08] MEDS: Pantoprazole 40 MG Tab.CR PO SCH ×2 (08:02→16:42)
[2021-04-08] MEDS: predniSONE 20 MG Tab PO SCH (08:02)
[2021-04-08] MEDS: Gabapentin 300 MG Cap PO SCH ×3 (08:02→20:19)
[2021-04-08] MEDS ORDERED: Sodium Chloride 0.9% 1,000 ML IV SCH (08:30)
[2021-04-08] MEDS ORDERED: Potassium Chloride 20 MEQ Tab.ER PO ONE ×2 (09:00→16:35)
[2021-04-08] MEDS: Calcium Carbonate 500 MG Tab.Chew PO SCH ×2 (11:25→20:19)
[2021-04-08] MEDS ORDERED: Potassium Chloride 20 MEQ, Lidocaine 1% 2 ML in Sodium Chloride 0.9% 100 ML IV SCH (17:00)
[2021-04-08] MEDS ORDERED: Lidocaine 1% PF 2 ML SDV INJECT ONE (17:23)
[2021-04-08] MEDS: Azithromycin 250 MG Tab PO SCH (20:18)
[2021-04-08] MEDS: atorvaSTATin 10 MG Tab PO SCH (20:18)
[2021-04-08] MEDS: Melatonin 3 MG Tab PO SCH (20:19)
[2021-04-09] MEDS: predniSONE 20 MG Tab PO SCH (07:27)
[2021-04-09] MEDS: Pantoprazole 40 MG Tab.CR PO SCH ×2 (07:27→16:04)
[2021-04-09] MEDS: Gabapentin 300 MG Cap PO SCH ×3 (08:48→21:53)
[2021-04-09] MEDS: Metoprolol Succinate 25 MG Tab.ER PO SCH (08:49)
[2021-04-09] MEDS: Cefdinir 300 MG Cap PO SCH ×2 (08:49→21:53)
[2021-04-09] MEDS: Calcium Carbonate 500 MG Tab.Chew PO SCH (08:49)
[2021-04-09] MEDS ORDERED: Potassium Chloride 20 MEQ Tab.ER PO ONE (09:30)
[2021-04-09] MEDS: atorvaSTATin 10 MG Tab PO SCH (21:53)
[2021-04-09] MEDS: Azithromycin 250 MG Tab PO SCH (21:53)
[2021-04-09] MEDS: Melatonin 3 MG Tab PO SCH (21:53)
[2021-04-09] MEDS: Calcium Carbonate/Vitamin D3 1500 MG-400 Units Tab PO SCH (21:54)
[2021-04-09] MEDS ORDERED: Metoprolol Succinate 25 MG Tab.ER PO ONE (22:03)
[2021-04-10] MEDS: Calcium Carbonate/Vitamin D3 1500 MG-400 Units Tab PO SCH ×2 (08:58→20:14)
[2021-04-10] MEDS: Pantoprazole 40 MG Tab.CR PO SCH ×2 (08:58→15:46)
[2021-04-10] MEDS: Cefdinir 300 MG Cap PO SCH ×2 (08:58→20:14)
[2021-04-10] MEDS: Gabapentin 300 MG Cap PO SCH ×3 (08:59→20:13)
[2021-04-10] MEDS: Metoprolol Succinate 25 MG Tab.ER PO SCH (09:06)
[2021-04-10] MEDS: Azithromycin 250 MG Tab PO SCH (20:13)
[2021-04-10] MEDS: Melatonin 3 MG Tab PO SCH (20:14)
[2021-04-10] MEDS: atorvaSTATin 10 MG Tab PO SCH (20:14)
[2021-04-11] MEDS: Pantoprazole 40 MG Tab.CR PO SCH ×2 (09:19→16:27)
[2021-04-11] MEDS: Metoprolol Succinate 25 MG Tab.ER PO SCH (09:19)
[2021-04-11] MEDS: Gabapentin 300 MG Cap PO SCH ×3 (09:20→21:55)
[2021-04-11] MEDS: Cefdinir 300 MG Cap PO SCH ×2 (09:20→21:56)
[2021-04-11] MEDS: Calcium Carbonate/Vitamin D3 1500 MG-400 Units Tab PO SCH ×2 (09:20→21:55)
[2021-04-11] MEDS: atorvaSTATin 10 MG Tab PO SCH (21:55)
[2021-04-11] MEDS: Melatonin 3 MG Tab PO SCH (21:55)
[2021-04-11] MEDS: Azithromycin 250 MG Tab PO SCH (21:56)
[2021-04-11] MEDS ORDERED: cefTRIAXone 1 GM in Sodium Chloride 0.9% 50 ML IV ONE (22:56)
[2021-04-12] MEDS: Cefdinir 300 MG Cap PO SCH (08:44)
[2021-04-12] MEDS: Calcium Carbonate/Vitamin D3 1500 MG-400 Units Tab PO SCH ×2 (08:44→20:05)
[2021-04-12] MEDS: Pantoprazole 40 MG Tab.CR PO SCH ×2 (08:44→16:43)
[2021-04-12] MEDS: Metoprolol Succinate 25 MG Tab.ER PO SCH (08:44)
[2021-04-12] MEDS: Gabapentin 300 MG Cap PO SCH ×3 (08:44→20:05)
[2021-04-12] MEDS: Magnesium Sulfate/Water 2 GM in Premix Bag 1 BAG IV SCH ×3 (12:58→23:53)
[2021-04-12] MEDS ORDERED: Levofloxacin/Dextrose 5%-Water 750 MG in Premix Bag 1 BAG IV SCH (14:30)
[2021-04-12] MEDS: Enoxaparin 80 MG/0.8 ML Syringe SUBCUT SCH (16:25)
[2021-04-12] MEDS: Dexamethasone 4 MG/ML SDV IVPUSH SCH (16:30)
[2021-04-12] MEDS: Piperacillin/Tazobactam/Dext 3.375 GM in Premix Bag 1 BAG IV SCH ×2 (16:37→21:48)
[2021-04-12] MEDS: Linezolid 600 MG in Premix Bag 1 BAG IV SCH (16:45)
[2021-04-12] MEDS ORDERED: SODIUM CHLORIDE 0.9% IV ONE (17:00)
[2021-04-12] MEDS ORDERED: TOCILIZUMAB IV ONE (17:00)
[2021-04-12] MEDS: Levofloxacin/Dextrose 5%-Water 750 MG in Premix Bag 1 BAG IV SCH (20:04)
[2021-04-12] MEDS: Magnesium Oxide 400 MG Tab PO SCH (20:05)
[2021-04-12] MEDS: atorvaSTATin 10 MG Tab PO SCH (20:05)
[2021-04-12] MEDS: Melatonin 3 MG Tab PO SCH (20:05)
[2021-04-13] MEDS: Enoxaparin 80 MG/0.8 ML Syringe SUBCUT SCH ×2 (02:44→14:43)
[2021-04-13] MEDS: Piperacillin/Tazobactam/Dext 3.375 GM in Premix Bag 1 BAG IV SCH ×4 (03:31→21:26)
[2021-04-13] MEDS: Linezolid 600 MG in Premix Bag 1 BAG IV SCH ×2 (03:33→16:56)
[2021-04-13] MEDS: Pantoprazole 40 MG Tab.CR PO SCH ×2 (08:25→16:28)
[2021-04-13] MEDS: Gabapentin 300 MG Cap PO SCH ×3 (08:48→20:49)
[2021-04-13] MEDS: Calcium Carbonate/Vitamin D3 1500 MG-400 Units Tab PO SCH ×2 (08:49→20:49)
[2021-04-13] MEDS: Magnesium Oxide 400 MG Tab PO SCH ×2 (08:49→20:49)
[2021-04-13] MEDS: Metoprolol Succinate 25 MG Tab.ER PO SCH (08:50)
[2021-04-13] MEDS: Dexamethasone 4 MG/ML SDV IVPUSH SCH (14:36)
[2021-04-13] MEDS ORDERED: Sodium Chloride 0.9% 500 ML IV ONE (17:36)
[2021-04-13] MEDS: Levofloxacin/Dextrose 5%-Water 750 MG in Premix Bag 1 BAG IV SCH (19:36)
[2021-04-13] MEDS: Melatonin 3 MG Tab PO SCH (20:49)
[2021-04-13] MEDS: atorvaSTATin 10 MG Tab PO SCH (20:49)
[2021-04-14] MEDS: Enoxaparin 80 MG/0.8 ML Syringe SUBCUT SCH ×2 (02:57→14:02)
[2021-04-14] MEDS: Piperacillin/Tazobactam/Dext 3.375 GM in Premix Bag 1 BAG IV SCH ×4 (03:00→21:17)
[2021-04-14] MEDS: Linezolid 600 MG in Premix Bag 1 BAG IV SCH ×2 (04:33→16:21)
[2021-04-14] MEDS: Pantoprazole 40 MG Tab.CR PO SCH ×2 (07:37→15:39)
[2021-04-14] MEDS: Calcium Carbonate/Vitamin D3 1500 MG-400 Units Tab PO SCH ×2 (09:06→21:23)
[2021-04-14] MEDS: Magnesium Oxide 400 MG Tab PO SCH ×2 (09:06→21:23)
[2021-04-14] MEDS: Gabapentin 300 MG Cap PO SCH ×3 (09:08→21:23)
[2021-04-14] MEDS: Metoprolol Succinate 25 MG Tab.ER PO SCH (09:18)
[2021-04-14] MEDS: Budesonide 0.5 MG/2 ML Neb Susp NEB SCH ×2 (10:38→21:17)
[2021-04-14] MEDS: Dexamethasone 4 MG/ML SDV IVPUSH SCH (14:01)
[2021-04-14] MEDS: Levofloxacin/Dextrose 5%-Water 750 MG in Premix Bag 1 BAG IV SCH (19:25)
[2021-04-14] MEDS: Melatonin 3 MG Tab PO SCH (21:23)
[2021-04-14] MEDS: atorvaSTATin 10 MG Tab PO SCH (21:23)
[2021-04-15] MEDS: Enoxaparin 80 MG/0.8 ML Syringe SUBCUT SCH (03:04)
[2021-04-15] MEDS: Piperacillin/Tazobactam/Dext 3.375 GM in Premix Bag 1 BAG IV SCH ×2 (03:05→10:17)
[2021-04-15] MEDS: Linezolid 600 MG in Premix Bag 1 BAG IV SCH (03:48)
[2021-04-15] MEDS: Budesonide 0.5 MG/2 ML Neb Susp NEB SCH ×2 (07:33→20:59)
[2021-04-15] MEDS: Magnesium Oxide 400 MG Tab PO SCH ×2 (08:05→20:59)
[2021-04-15] MEDS: Calcium Carbonate/Vitamin D3 1500 MG-400 Units Tab PO SCH ×2 (08:05→20:59)
[2021-04-15] MEDS: Pantoprazole 40 MG Tab.CR PO SCH ×2 (08:05→16:30)
[2021-04-15] MEDS: Gabapentin 300 MG Cap PO SCH ×3 (08:05→20:59)
[2021-04-15] MEDS: Albuterol 8 GM Inhaler INH PRN ×2 (10:50→19:30)
[2021-04-15] MEDS: Metoprolol Succinate 25 MG Tab.ER PO SCH (13:31)
[2021-04-15] MEDS: Dexamethasone 4 MG/ML SDV IVPUSH SCH (15:00)
[2021-04-15] MEDS: Levofloxacin/Dextrose 5%-Water 750 MG in Premix Bag 1 BAG IV SCH (19:37)
[2021-04-15] MEDS: atorvaSTATin 10 MG Tab PO SCH (20:59)
[2021-04-15] MEDS: Melatonin 3 MG Tab PO SCH (20:59)
[2021-04-15] MEDS: Aspirin 81 MG Tab.Chew PO SCH (20:59)
[2021-04-16] MEDS: Budesonide 0.5 MG/2 ML Neb Susp NEB SCH ×2 (08:09→21:03)
[2021-04-16] MEDS: Pantoprazole 40 MG Tab.CR PO SCH ×2 (08:09→16:11)
[2021-04-16] MEDS: Calcium Carbonate/Vitamin D3 1500 MG-400 Units Tab PO SCH ×2 (08:10→21:21)
[2021-04-16] MEDS: Magnesium Oxide 400 MG Tab PO SCH ×2 (08:10→21:19)
[2021-04-16] MEDS: Gabapentin 300 MG Cap PO SCH ×3 (08:10→21:19)
[2021-04-16] MEDS: Albuterol 8 GM Inhaler INH PRN (11:37)
[2021-04-16] MEDS: Dexamethasone 4 MG/ML SDV IVPUSH SCH (15:12)
[2021-04-16] MEDS: Levofloxacin/Dextrose 5%-Water 750 MG in Premix Bag 1 BAG IV SCH (20:18)
[2021-04-16] MEDS: Melatonin 3 MG Tab PO SCH (21:20)
[2021-04-16] MEDS: atorvaSTATin 10 MG Tab PO SCH (21:21)
[2021-04-16] MEDS: Aspirin 81 MG Tab.Chew PO SCH (21:31)
[2021-04-17] MEDS: Albuterol 8 GM Inhaler INH PRN (05:23)
[2021-04-17] MEDS: Pantoprazole 40 MG Tab.CR PO SCH ×2 (07:23→15:36)
[2021-04-17] MEDS: Budesonide 0.5 MG/2 ML Neb Susp NEB SCH ×2 (07:23→21:37)
[2021-04-17] MEDS: Calcium Carbonate/Vitamin D3 1500 MG-400 Units Tab PO SCH ×2 (08:39→21:25)
[2021-04-17] MEDS: Magnesium Oxide 400 MG Tab PO SCH ×2 (08:39→21:36)
[2021-04-17] MEDS: Gabapentin 300 MG Cap PO SCH ×3 (08:43→21:25)
[2021-04-17] MEDS: Metoprolol Succinate 25 MG Tab.ER PO SCH (08:43)
[2021-04-17] MEDS: Dexamethasone 4 MG/ML SDV IVPUSH SCH (15:36)
[2021-04-17] MEDS: Furosemide 20 MG/2 ML VIAL IVPUSH SCH (16:56)
[2021-04-17] MEDS: Levofloxacin/Dextrose 5%-Water 750 MG in Premix Bag 1 BAG IV SCH (19:55)
[2021-04-17] MEDS: Aspirin 81 MG Tab.Chew PO SCH (21:25)
[2021-04-17] MEDS: Melatonin 3 MG Tab PO SCH (21:25)
[2021-04-17] MEDS: atorvaSTATin 10 MG Tab PO SCH (21:25)
[2021-04-18] MEDS ORDERED: Magnesium Sulfate/Water 2 GM in Premix Bag 1 BAG IV ONE (06:00)
[2021-04-18] MEDS: Budesonide 0.5 MG/2 ML Neb Susp NEB SCH ×2 (07:19→21:14)
[2021-04-18] MEDS: Pantoprazole 40 MG Tab.CR PO SCH ×2 (07:42→15:42)
[2021-04-18] MEDS: Magnesium Oxide 400 MG Tab PO SCH ×2 (08:28→21:14)
[2021-04-18] MEDS: Furosemide 20 MG/2 ML VIAL IVPUSH SCH (08:28)
[2021-04-18] MEDS: Gabapentin 300 MG Cap PO SCH ×3 (08:28→21:14)
[2021-04-18] MEDS: Calcium Carbonate/Vitamin D3 1500 MG-400 Units Tab PO SCH ×2 (08:28→21:13)
[2021-04-18] MEDS: Metoprolol Succinate 25 MG Tab.ER PO SCH (08:29)
[2021-04-18] MEDS ORDERED: Sodium Chloride 0.9% 250 ML IV ONE ×2 (13:15)
[2021-04-18] MEDS ORDERED: Potassium Chloride 20 MEQ in Premix Bag 1 BAG IV ONE (13:15)
[2021-04-18] MEDS: Dexamethasone 4 MG/ML SDV IVPUSH SCH (15:41)
[2021-04-18] MEDS: Aspirin 81 MG Tab.Chew PO SCH (21:13)
[2021-04-18] MEDS: Levofloxacin/Dextrose 5%-Water 750 MG in Premix Bag 1 BAG IV SCH (21:13)
[2021-04-18] MEDS: atorvaSTATin 10 MG Tab PO SCH (21:14)
[2021-04-18] MEDS: Melatonin 3 MG Tab PO SCH (21:14)
[2021-04-19] MEDS: Budesonide 0.5 MG/2 ML Neb Susp NEB SCH (07:35)
[2021-04-19 07:50] VITALS: BP 124/54; PULSE 55
[2021-04-19] MEDS: Pantoprazole 40 MG Tab.CR PO SCH (07:50)
[2021-04-19] MEDS: Calcium Carbonate/Vitamin D3 1500 MG-400 Units Tab PO SCH (10:08)
[2021-04-19] MEDS: Magnesium Oxide 400 MG Tab PO SCH (10:10)
[2021-04-19] MEDS: Gabapentin 300 MG Cap PO SCH (10:11)
[2021-04-19] MEDS: Furosemide 20 MG/2 ML VIAL IVPUSH SCH (10:13)
== END 2021-04-19 12:21 | DRG 564 ==
LOC: JP.ED 08:50 → JP.ICU 12:36 → JP.MS 04-16 14:12
PROVIDERS: ADMIT Internal Medicine; ATTEND Internal Medicine
DX: T79.6XXA Traumatic ischemia of muscle, initial encounter (principal); U07.1 COVID-19; I50.21 Acute systolic (congestive) heart failure; C34.90 Malignant neoplasm of unspecified part of unspecified bronchus or lung; C61 Malignant neoplasm of prostate; C79.9 Secondary malignant neoplasm of unspecified site; J44.9 Chronic obstructive pulmonary disease, unspecified; J30.9 Allergic rhinitis, unspecified; I21.4 Non-ST elevation (NSTEMI) myocardial infarction; N17.9 Acute kidney failure, unspecified; C34.91 Malignant neoplasm of unspecified part of right bronchus or lung; I48.20 Chronic atrial fibrillation, unspecified; I47.2 Ventricular tachycardia; E83.42 Hypomagnesemia; E87.6 Hypokalemia; E86.0 Dehydration; K59.09 Other constipation; K57.90 Diverticulosis of intestine, part unspecified, without perforation or abscess without bleeding; Z66 Do not resuscitate; Z93.3 Colostomy status; I25.2 Old myocardial infarction; Z86.010 Personal history of colon polyps; Z79.899 Other long term (current) drug therapy; Z79.82 Long term (current) use of aspirin; Z79.01 Long term (current) use of anticoagulants; Z79.02 Long term (current) use of antithrombotics/antiplatelets; Z88.1 Allergy status to other antibiotic agents; Z91.030 Bee allergy status; Z85.46 Personal history of malignant neoplasm of prostate
CPT/HCPCS: 0241U; 36415; 36600; 71045; 71046; 80048; 80053; 81001; 82140; 82330; 82550; 82803; 83605; 83735; 83880; 84100; 84132; 84145; 84484; 85025; 85027; 85379; 85610; 86140; 93005; 94640; 94660; 97110; 97162; 97164; 97165; 97530; 99285; A9270-GY; J0456; J0696; J1100; J1650; J1940; J1956; J2001; J2020; J2405; J2543; J2930; J3475; J3480; J7030; J7040; J7050; J7512; Q0249

== ENCOUNTER 2021-09-01 11:05 | Observation (INO) | payer MEDICARE, OTHER ==
[2021-09-01 12:28] LABS: ESTIMATED GFR 68 mL/min (>60)
[2021-09-01] MEDS ORDERED: Furosemide 40 MG/4 ML VIAL IVPUSH ONE (14:03)
[2021-09-01] MEDS ORDERED: Acetaminophen 325 MG Tab PO PRN (14:37)
[2021-09-01] MEDS ORDERED: Albuterol 0.083% 2.5 MG/3 ML Neb Soln NEB PRN (14:37)
[2021-09-01] MEDS ORDERED: Ondansetron 4 MG/2 ML SDV IV PRN (14:37)
[2021-09-01] MEDS ORDERED: Sodium Chloride 0.9% 10 ML Syringe FLUSH PRN (14:37)
[2021-09-01] MEDS ORDERED: Iopamidol 755 Mg/ML 100 ML Bottle IV SCH (15:15)
[2021-09-01] MEDS ORDERED: Sodium Chloride 0.9% 100 ML IV SCH (15:15)
[2021-09-01] MEDS ORDERED: Furosemide 40 MG/4 ML VIAL IVPUSH STA (16:39)
[2021-09-01] MEDS: Gabapentin 300 MG Cap ** OWN MED PO SCH ×3 (18:22→23:37)
[2021-09-01] MEDS: PREDNISONE 5 MG PO SCH (20:48)
[2021-09-01] MEDS: Pantoprazole 40 MG Tab.CR PO SCH (20:48)
[2021-09-01] MEDS: atorvaSTATin 10 MG Tab ** OWN MED PO SCH (20:48)
[2021-09-01] MEDS: Cefdinir 300 MG Cap PO SCH (20:48)
[2021-09-02] MEDS: PREDNISONE 5 MG PO SCH ×2 (09:00→17:07)
[2021-09-02] MEDS: Potassium Chloride 20 MEQ Tab.ER PO SCH (09:01)
[2021-09-02] MEDS: Pantoprazole 40 MG Tab.CR PO SCH ×2 (09:02→20:09)
[2021-09-02] MEDS: Cefdinir 300 MG Cap PO SCH ×2 (09:02→20:09)
[2021-09-02] MEDS: Aspirin 81 MG Tab.Chew PO SCH (09:02)
[2021-09-02] MEDS: ABIRATERONE ACETATE 250 MG PO SCH (09:03)
[2021-09-02] MEDS ORDERED: Furosemide 40 MG/4 ML VIAL IVPUSH ONE ×2 (09:04→19:00)
[2021-09-02] MEDS: Gabapentin 300 MG Cap ** OWN MED PO SCH ×3 (13:22→23:55)
[2021-09-02] MEDS: atorvaSTATin 10 MG Tab ** OWN MED PO SCH (20:09)
[2021-09-03] MEDS: PREDNISONE 5 MG PO SCH ×2 (08:04→17:22)
[2021-09-03] MEDS: Furosemide 40 MG Tab PO SCH (08:05)
[2021-09-03] MEDS: Aspirin 81 MG Tab.Chew PO SCH (08:05)
[2021-09-03] MEDS: Potassium Chloride 20 MEQ Tab.ER PO SCH (08:05)
[2021-09-03] MEDS: Cefdinir 300 MG Cap PO SCH ×2 (08:06→20:47)
[2021-09-03] MEDS: ABIRATERONE ACETATE 250 MG PO SCH (08:06)
[2021-09-03] MEDS: Pantoprazole 40 MG Tab.CR PO SCH ×2 (08:06→20:46)
[2021-09-03] MEDS: Gabapentin 300 MG Cap ** OWN MED PO SCH ×3 (12:03→23:12)
[2021-09-03] MEDS: atorvaSTATin 10 MG Tab ** OWN MED PO SCH (20:47)
[2021-09-04] MEDS: PREDNISONE 5 MG PO SCH ×2 (08:19→17:22)
[2021-09-04] MEDS: Aspirin 81 MG Tab.Chew PO SCH (08:20)
[2021-09-04] MEDS: Potassium Chloride 20 MEQ Tab.ER PO SCH (08:20)
[2021-09-04] MEDS: Furosemide 40 MG Tab PO SCH (08:20)
[2021-09-04] MEDS: Cefdinir 300 MG Cap PO SCH ×2 (08:21→20:56)
[2021-09-04] MEDS: ABIRATERONE ACETATE 250 MG PO SCH (08:21)
[2021-09-04] MEDS: Pantoprazole 40 MG Tab.CR PO SCH ×2 (08:21→20:56)
[2021-09-04] MEDS: Gabapentin 300 MG Cap ** OWN MED PO SCH ×3 (12:18→23:51)
[2021-09-04] MEDS: atorvaSTATin 10 MG Tab ** OWN MED PO SCH (20:56)
[2021-09-05] MEDS: Aspirin 81 MG Tab.Chew PO SCH (08:33)
[2021-09-05] MEDS: ABIRATERONE ACETATE 250 MG PO SCH (08:33)
[2021-09-05] MEDS: Pantoprazole 40 MG Tab.CR PO SCH (08:34)
[2021-09-05] MEDS: Furosemide 40 MG Tab PO SCH (08:34)
[2021-09-05] MEDS: Potassium Chloride 20 MEQ Tab.ER PO SCH (08:34)
[2021-09-05] MEDS: PREDNISONE 5 MG PO SCH (08:35)
[2021-09-05 11:15] VITALS: BP 93/50; PULSE 81
[2021-09-05] MEDS: Gabapentin 300 MG Cap ** OWN MED PO SCH (12:26)
== END 2021-09-05 13:50 ==
LOC: JP.ED 11:05 → JP.MS 14:04 → INTOOBSV 14:04
PROVIDERS: ADMIT Hospitalist; ATTEND Internal Medicine
DX: R53.1 Weakness (principal); R09.02 Hypoxemia; I25.10 Atherosclerotic heart disease of native coronary artery without angina pectoris; J44.9 Chronic obstructive pulmonary disease, unspecified; I26.99 Other pulmonary embolism without acute cor pulmonale; I25.2 Old myocardial infarction; J18.9 Pneumonia, unspecified organism; C34.90 Malignant neoplasm of unspecified part of unspecified bronchus or lung; R79.89 Other specified abnormal findings of blood chemistry; Z93.3 Colostomy status; Z20.822 Contact with and (suspected) exposure to COVID-19; Z88.1 Allergy status to other antibiotic agents; Z91.030 Bee allergy status; Z79.899 Other long term (current) drug therapy; Z79.82 Long term (current) use of aspirin; Z98.890 Other specified postprocedural states; Z87.891 Personal history of nicotine dependence
CPT/HCPCS: 36415; 71275; 80048; 80053; 81001; 82803; 83605; 83735; 83880; 85025; 85610; 85730; 96374; 96376; 97110; 97116; 97161; 97530; 99285; A9270; G0378; J1940; J3490; J7512; Q9967; U0002

== ENCOUNTER 2021-10-09 14:04 | Emergency (ER) | payer MEDICARE, OTHER ==
[2021-10-09 16:14] VITALS: BP 89/59; PULSE 76
== END 2021-10-09 16:52 | disposition home or self-care (01) ==
LOC: JP.ED 14:04
DX: C34.90 Malignant neoplasm of unspecified part of unspecified bronchus or lung (principal); J40 Bronchitis, not specified as acute or chronic; R04.2 Hemoptysis; R53.1 Weakness; I25.2 Old myocardial infarction; Z86.16 Personal history of COVID-19; Z88.1 Allergy status to other antibiotic agents; Z91.030 Bee allergy status; Z79.01 Long term (current) use of anticoagulants; Z79.899 Other long term (current) drug therapy
CPT/HCPCS: 36415; 71045; 71045-26; 80048; 85025; 99285

== ENCOUNTER 2021-12-01 19:30 | Emergency (ER) | payer MEDICARE ==
[2021-12-01] MEDS ORDERED: Norepinephrine Bit/D5W Premix 250 ML IV ONE (21:10)
[2021-12-01] MEDS ORDERED: Lactated Ringers 1,000 ML IV ONE ×2 (21:40→21:45)
[2021-12-01] MEDS ORDERED: cefTRIAXone 1 GM in Sodium Chloride 0.9% 50 ML IV ONE (21:45)
[2021-12-01] MEDS ORDERED: Lidocaine 2% Jelly 10 ML Urojet ONE (21:45)
[2021-12-01] MEDS ORDERED: methylPREDNISolone Sodium Succinate 125 MG/2 ML SDV ONE (21:45)
[2021-12-01] MEDS ORDERED: Azithromycin 500 MG in Sodium Chloride 0.9% 250 ML IV ONE (21:45)
[2021-12-01] MEDS ORDERED: Ondansetron 4 MG/2 ML SDV ONE (21:45)
[2021-12-01] MEDS ORDERED: TAZOBACTAM IV ONE (23:45)
[2021-12-01] MEDS ORDERED: SODIUM CHLORIDE 0.9% IV ONE (23:45)
[2021-12-01] MEDS ORDERED: PIPERACILLIN IV ONE (23:45)
[2021-12-26 08:02] LABS: ESTIMATED GFR 56 mL/min (>60)
[2021-12-26 08:04] LABS: TROPONIN I HIGH SENSITIVITY 116.9 pg/mL (<=60.3)
[2021-12-26 08:16] LABS: CORONAVIRUS COVID-19 NAA NEGATIVE (NEGATIVE)
== END 2021-12-01 23:54 | disposition home or self-care (01) ==
LOC: JP.ED 19:30
DX: A41.9 Sepsis, unspecified organism (principal); I95.9 Hypotension, unspecified; J18.9 Pneumonia, unspecified organism; R79.89 Other specified abnormal findings of blood chemistry; J44.9 Chronic obstructive pulmonary disease, unspecified; I25.10 Atherosclerotic heart disease of native coronary artery without angina pectoris; I25.2 Old myocardial infarction; Z85.07 Personal history of malignant neoplasm of pancreas; Z85.118 Personal history of other malignant neoplasm of bronchus and lung; Z79.01 Long term (current) use of anticoagulants; Z88.1 Allergy status to other antibiotic agents; Z20.822 Contact with and (suspected) exposure to COVID-19
CPT/HCPCS: 0241U; 36415; 51702; 71045; 80053; 81001; 82803; 83605; 83690; 84484; 85025; 85610; 85730; 86140; 87040; 93005; 96361; 96365; 96367; 96375; 99285; J0456; J0696; J2020; J2405; J2543; J2930; J7050; J7120